=== PATIENT | female | born 1940 | race Caucasian/White ===

== ENCOUNTER → 2017-11-01 | Outpatient (CLI) | payer MEDICARE ==
[2017-11-01 17:33] LABS: HCT 40.2 % (34.0-46.0); HGB 13.7 gm/dL (11.4-16.0); MCH 29.8 pg (25.0-35.0); MCV 87.6 fL (80.0-100.0); Mean Platelet Volume 6.9; Platelet Count 282 k/uL (150-450); RBC 4.59 m/uL (3.80-5.40); RDW 13.7 % (11.5-15.5); WBC 6.1 k/uL (3.8-10.6)
[2017-11-01 17:43] LABS: ALT 57 U/L (9-52); AST 51 U/L (14-36); Albumin 4.3 g/dL (3.5-5.0); Alkaline Phosphatase 96 U/L (38-126); Anion Gap 11 mmol/L; Blood Urea Nitrogen 16 mg/dL (7-17); Calcium 10.2 mg/dL (8.4-10.2); Carbon Dioxide 31 mmol/L (22-30); Chloride 100 mmol/L (98-107); Glucose 206 mg/dL (74-99); Potassium 4.9 mmol/L (3.5-5.1); Sodium 142 mmol/L (137-145); Total Bilirubin 0.6 mg/dL (0.2-1.3); Total Protein 7.4 g/dL (6.3-8.2)
[2017-11-02 01:40] LABS: Hemoglobin A1C 7.9 % (4.0-6.0)
== END | disposition home or self-care (01) ==
LOC: LABWHC1 16:57
PROVIDERS: ATTEND Thoracic Surgery (Cardiothoracic Vascular Surgery)
DX: E13.621 Other specified diabetes mellitus with foot ulcer (principal); M79.604 Pain in right leg
CPT/HCPCS: 36415; 80053; 83036; 84134; 85027

== ENCOUNTER 2019-09-02 09:16 | Emergency (ER) | payer MEDICARE ==
[2019-09-02 09:28] VITALS: RESP 18; TEMP 97.7
[2019-09-02] MEDS ORDERED: MORPHINE SULFATE 4 MG/ML SYRINGE IM STA (09:53)
--- NOTE | 2019-09-02 10:36 | XR ---
EXAMINATION TYPE: XR wrist complete LT , 4 VIEWS DATE OF EXAM ORDERED: 09/02/2019 HISTORY: fall pain. COMPARISON: None. FINDINGS: There is a fracture the distal radius and ulna. There is approximately 20 degrees of poste rior angulation of the radial fragment. There is mild displacement. There is generalized osteopenia l ikely on the basis of osteoporosis. There are degenerative changes in the first carpal metacarpal jayne nt. IMPRESSION: 1. COLLES' TYPE FRACTURE OF THE DISTAL RADIUS AND ULNA. THIS IS MILDLY ANGULATED AND MILDLY DISPLACE D. 2. DEGENERATIVE CHANGE. CODE A: INITIAL ENCOUNTER FOR CLOSED FRACTURE.
--- NOTE | 2019-09-02 10:37 | XR ---
EXAMINATION TYPE: XR hand complete LT , 3 VIEWS DATE OF EXAM ORDERED: 09/02/2019 HISTORY: fall hand pain concern fracture. COMPARISON: None. FINDINGS: There is generalized osteopenia likely on the basis of osteoporosis. There are degenerativ e changes present in the base of the thumb. There is a fracture of the distal radius and ulna as prev iously described with mild angulation and mild displacement. No additional fractures are seen. IMPRESSION: COLLES' FRACTURE OF THE DISTAL RADIUS AND ULNA WITH MINIMAL ANGULATION AND MILD DISPLACEMENT. CODE A: INITIAL ENCOUNTER FOR CLOSED FRACTURE.
--- NOTE | 2019-09-02 10:38 | XR ---
EXAMINATION TYPE: XR elbow complete LT , 3 VIEWS DATE OF EXAM ORDERED: 09/02/2019 HISTORY: fall,. COMPARISON: None. FINDINGS: Phleboliths are present in the soft tissues. No fracture, dislocation or joint effusion is seen. There is a small olecranon spur. IMPRESSION: NO ACUTE OSSEOUS LESION.
--- NOTE | 2019-09-02 10:39 | XR ---
EXAMINATION TYPE: XR shoulder complete LT , 3 VIEWS DATE OF EXAM ORDERED: 09/02/2019 HISTORY: fall. COMPARISON: None. FINDINGS: There is a minimally displaced, comminuted fracture of the head and neck of the left humer us. No dislocation is seen. IMPRESSION: MINIMALLY DISPLACED, COMMINUTED FRACTURE OF THE HEAD AND NECK OF THE PROXIMAL LEFT HUMERUS. CODE A: INITIAL ENCOUNTER FOR CLOSED FRACTURE.
[2019-09-02] MEDS ORDERED: ACET/COD 300 MG/30 MG STARTER PACK 6 TAB BTL PO STA (10:45)
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
[2019-09-02 11:24] VITALS: BP 170/80; PULSE 77
--- NOTE | 2019-09-04 06:41 | CDI ---
Dear Molly Lockhart PA-C: Please do addendum clarification on short or long arm splint application to patient as in order both Short and Long arm were given and in VIEW EMR in Splint TAB just Long Arm mentioned without mention of splint or sling where as in MDM just mention "Sugar Tong Splint." Thank you, Gutierrez Corrales, Budget Engineer. If you have any questions, please contact Police Liaison Officer at [phone]. YONGD
== END 2019-09-02 11:29 | disposition home or self-care (01) ==
LOC: EC 09:16
DX: S52.532A Colles' fracture of left radius, initial encounter for closed fracture (principal); S42.292A Other displaced fracture of upper end of left humerus, initial encounter for closed fracture; E11.9 Type 2 diabetes mellitus without complications; E78.5 Hyperlipidemia, unspecified; I10 Essential (primary) hypertension; M19.90 Unspecified osteoarthritis, unspecified site; Z88.1 Allergy status to other antibiotic agents; Z88.6 Allergy status to analgesic agent; Z79.82 Long term (current) use of aspirin; Z79.84 Long term (current) use of oral hypoglycemic drugs; Z79.899 Other long term (current) drug therapy; W01.0XXA Fall on same level from slipping, tripping and stumbling without subsequent striking against object, initial encounter; Y93.01 Activity, walking, marching and hiking; Z53.20 Procedure and treatment not carried out because of patient's decision for unspecified reasons
CPT/HCPCS: 29125; 99283

== ENCOUNTER → 2019-10-23 | Outpatient (CLI) | payer MEDICARE ==
--- NOTE | 2019-10-23 15:27 | XR ---
EXAMINATION TYPE: XR chest 2V DATE OF EXAM: 10/23/2019 COMPARISON: 09/23/2012 HISTORY: Cough and congestion for one month TECHNIQUE: Frontal and lateral views of the chest are obtained. FINDINGS: Diffuse interstitial prominence. There is no focal air space opacity, pleural effusion, or pneumothorax seen. The cardiac silhouette size is within normal limits. The osseous structures ar e intact. Old healed fracture deformity is seen of the proximal left humerus. Mild multilevel degener ative change of the spine. IMPRESSION: Diffuse interstitial prominence without focal consolidation. This can be seen in mild in terstitial pulmonary edema, atypical pneumonia or bronchitis.
== END | disposition home or self-care (01) ==
LOC: RADXRMAIN 15:04
PROVIDERS: ATTEND Family Medicine
DX: J20.9 Acute bronchitis, unspecified (principal)
CPT/HCPCS: 71046

== ENCOUNTER 2022-03-14 10:46 | Emergency (ER) | payer MEDICARE ==
[2022-03-14 10:54] VITALS: TEMP 97.4
[2022-03-14 10:57] LABS: Glucose,Whole Blood 47 mg/dL (70-110)
--- NOTE | 2022-03-14 11:14 | ED ---
General Adult HPI - General Chief complaint: Recheck/Abnormal Lab/Rx Stated complaint: low blood sugar Time Seen by Provider: 03/14/22 10:55 Source: patient, RN notes reviewed, old records reviewed Mode of arrival: ambulatory Limitations: no limitations - History of Present Illness Initial comments: This is a 81-year-old female presents emergency Department states she is diabetic. Patient states she came in today because her sugar was low. Patient states she checks it every day. Patient states after she took her sugar and found out it was located. Motor March sounds. Patient states she has really no complaints states that she was little sweaty and had the chills when this occurred earlier. Patient states this has never occurred to her before. Patient denies any chest pain difficult breathing shortness breath. Patient denies any fever chills or cough. Patient denies any abdominal pain patient denies nausea vomiting diarrhea. - Related Data Home Medications Medication Instructions Recorded Confirmed Aspirin [Adult Low Dose Aspirin EC] 81 mg PO DAILY 10/26/17 03/01/18 Cetirizine HCl 10 mg PO DAILY 10/26/17 03/01/18 Ezetimibe [Zetia] 10 mg PO DAILY 10/26/17 03/01/18 Glimepiride [Amaryl] 2 mg PO AC-BRKFST 10/26/17 03/01/18 Lisinopril-Hctz 10-12.5 mg 1 tab PO DAILY 10/26/17 03/01/18 [Zestoretic 10-12.5] Magnesium Oxide [Mag-Ox] 400 mg PO DAILY 10/26/17 03/01/18 Multivit with Calcium,Iron,Min 1 each PO DAILY 10/26/17 03/01/18 [Women's Multivitamin] Potassium Chloride [Klor-Con 8] 8 meq PO DAILY 10/26/17 03/01/18 atenoloL [Tenormin] 25 mg PO DAILY 10/26/17 03/01/18 metFORMIN HCL [Glucophage Xr] 500 mg PO DAILY 02/01/18 03/01/18 Previous Rx's Medication Instructions Recorded Sulfamethox-Tmp 800-160Mg [Bactrim 1 each PO Q12HR #14 tab 03/14/22 DS 800-160 mg] Allergies Allergy/AdvReac Type Severity Reaction Status Date / Time bacitracin Allergy Rash/Hives Verified 03/14/22 10:54 [From Neosporin ([id number])] ibuprofen Allergy Wheezing Verified 03/14/22 10:54 neomycin Allergy Rash/Hives Verified 03/14/22 10:54 [From Neosporin ([id number])] polymyxin B Allergy Rash/Hives Verified 03/14/22 10:54 [From Neosporin ([id number])] Review of Systems ROS Statement: Those systems with pertinent positive or pertinent negative responses have been documented in the HPI. ROS Other: All systems not noted in ROS Statement are negative. Past Medical History Past Medical History: Diabetes Mellitus, Hyperlipidemia, Hypertension, Osteoarthritis (OA) History of Any Multi-Drug Resistant Organisms: None Reported Past Surgical History: No Surgical Hx Reported Additional Past Surgical History / Comment(s): cataract & carpal-tunnel bilat. Past Anesthesia/Blood Transfusion Reactions: No Reported Reaction Past Psychological History: No Psychological Hx Reported Smoking Status: Never smoker Past Alcohol Use History: None Reported Past Drug Use History: None Reported - Past Family History Mother Family Medical History: Coronary Artery Disease (CAD), Diabetes Mellitus, Hype rtension, Mitral Valve Prolapse (MVP) Father Family Medical History: Hypertension Additional Family Medical History / Comment(s): father hip surgery General Exam - General Exam Comments Initial Comments: GENERAL: Patient is well-developed and well-nourished. Patient is nontoxic and well- hydrated and is in no acute distress. ENT: Neck is soft and supple. No significant lymphadenopathy is noted. Oropharynx is clear. Moist mucous membranes. Neck has full range of motion without eliciting any pain. EYES: The sclera were anicteric and conjunctiva were pink and moist. Extraocular movements were intact and pupils were equal round and reactive to light. Eyelids were unremarkable. PULMONARY: Unlabored respirations. Good breath sounds bilaterally. No audible rales rhonchi or wheezing was noted. CARDIOVASCULAR: There is a regular rate and rhythm without any murmurs gallops or rubs. ABDOMEN: Soft and nontender with normal bowel sounds. SKIN: Skin is clear with no lesions or rashes and otherwise unremarkable. NEUROLOGIC: Patient is alert and oriented x3. Cranial nerves II through XII are grossly intact. Motor and sensory are also intact. Normal speech, volume and content. Symmetrical smile. MUSCULOSKELETAL: Normal extremities with adequate strength and full range of motion. Left lower leg is erythematous below the knee down to the foot. LYMPHATICS: No significant lymphadenopathy is noted PSYCHIATRIC: Normal psychiatric evaluation. Limitations: no limitations Course Vital Signs 03/14/22 03/14/22 10:52 14:20 Temperature 97.4 F L Pulse Rate 64 68 Respiratory 20 18 Rate Blood Pressure 225/90 164/78 O2 Sat by Pulse 100 98 Oximetry Medical Decision Making - Medical Decision Making EKG shows sinus rhythm at 81 bpm [place] interval is 201 QRS is 110 QT interval 397 QTC is 434. Patient's EKG shows no ST segment elevation or depression Chest x-ray shows no acute abnormality. Patient received Rocephin in the emergency department. Patient states she did not take her blood pressure medicines but she has them with her and she will take them today. - Lab Data Result diagrams: 03/14/22 11:08 03/14/22 11:08 Lab Results 03/14/22 03/14/22 03/14/22 Range/Units 10:55 11:00 11:08 WBC 6.5 (3.8-10.6) k/uL RBC 4.58 (3.80-5.40) m/uL Hgb 11.8 (11.4-16.0) gm/dL Hct 37.2 (34.0-46.0) % MCV 81.3 (80.0-100.0) fL MCH 25.7 (25.0-35.0) pg MCHC 31.6 (31.0-37.0) g/dL RDW 16.2 H (11.5-15.5) % Plt Count 333 (150-450) k/uL MPV 6.9 Neutrophils % 84 % Lymphocytes % 9 % Monocytes % 5 % Eosinophils % 1 % Basophils % 1 % Neutrophils # 5.5 (1.3-7.7) k/uL Lymphocytes # 0.6 L (1.0-4.8) k/uL Monocytes # 0.3 (0-1.0) k/uL Eosinophils # 0.1 (0-0.7) k/uL Basophils # 0.0 (0-0.2) k/uL Hypochromasia Moderate Anisocytosis Slight Sodium (137-145) mmol/L Potassium (3.5-5.1) mmol/L Chloride (98-107) mmol/L Carbon Dioxide (22-30) mmol/L Anion Gap mmol/L BUN (7-17) mg/dL Creatinine (0.52-1.04) mg/dL Est GFR (CKD-EPI)AfAm (>60 ml/min/1.73 sqM) Est GFR (CKD-EPI)NonAf (>60 ml/min/1.73 sqM) Glucose (74-99) mg/dL POC Glucose (mg/dL) 47 L (70-110) mg/dL POC Glu Real Estate Services Administrator ID Taurus Uribe Calcium (8.4-10.2) mg/dL Total Bilirubin (0.2-1.3) mg/dL AST (14-36) U/L ALT (4-34) U/L Alkaline Phosphatase (38-126) U/L Total Protein (6.3-8.2) g/dL Albumin (3.5-5.0) g/dL Urine Color Light Yellow Urine Appearance Clear (Clear) Urine pH 6.5 (5.0-8.0) Ur Specific [place] 1.009 (1.001-1.035) Urine Protein Trace H (Negative) Urine Glucose (UA) Negative (Negative) Urine Ketones Negative (Negative) Urine Blood Small H (Negative) Urine Nitrite Negative (Negative) Urine Bilirubin Negative (Negative) Urine Urobilinogen <2.0 (<2.0) mg/dL Ur Leukocyte Esterase Large H (Negative) Urine RBC 10 H (0-5) /hpf Urine WBC 57 H (0-5) /hpf Hyaline Casts 1 (0-2) /lpf 03/14/22 03/14/22 03/14/22 Range/Units 11:08 11:45 12:58 WBC (3.8-10.6) k/uL RBC (3.80-5.40) m/uL Hgb (11.4-16.0) gm/dL Hct (34.0-46.0) % MCV (80.0-100.0) fL MCH (25.0-35.0) pg MCHC (31.0-37.0) g/dL RDW (11.5-15.5) % Plt Count (150-450) k/uL MPV Neutrophils % % Lymphocytes % % Monocytes % % Eosinophils % % Basophils % % Neutrophils # (1.3-7.7) k/uL Lymphocytes # (1.0-4.8) k/uL Monocytes # (0-1.0) k/uL Eosinophils # (0-0.7) k/uL Basophils # (0-0.2) k/uL Hypochromasia Anisocytosis Sodium 141 (137-145) mmol/L Potassium 3.9 (3.5-5.1) mmol/L Chloride 109 H (98-107) mmol/L Carbon Dioxide 24 (22-30) mmol/L Anion Gap 8 mmol/L BUN 27 H (7-17) mg/dL Creatinine 0.81 (0.52-1.04) mg/dL Est GFR (CKD-EPI)AfAm 80 (>60 ml/min/1.73 sqM) Est GFR (CKD-EPI)NonAf 70 (>60 ml/min/1.73 sqM) Glucose 47 L* (74-99) mg/dL POC Glucose (mg/dL) 67 L 111 H (70-110) mg/dL POC Glu Real Estate Services Administrator ID Lowell Oh Kenneth Calcium 9.0 (8.4-10.2) mg/dL Total Bilirubin 0.3 (0.2-1.3) mg/dL AST 27 (14-36) U/L ALT 13 (4-34) U/L Alkaline Phosphatase 103 (38-126) U/L Total Protein 8.8 H (6.3-8.2) g/dL Albumin 4.3 (3.5-5.0) g/dL Urine Color Urine Appearance (Clear) Urine pH (5.0-8.0) Ur Specific [place] (1.001-1.035) Urine Protein (Negative) Urine Glucose (UA) (Negative) Urine Ketones (Negative) Urine Blood (Negative) Urine Nitrite (Negative) Urine Bilirubin (Negative) Urine Urobilinogen (<2.0) mg/dL Ur Leukocyte Esterase (Negative) Urine RBC (0-5) /hpf Urine WBC (0-5) /hpf Hyaline Casts (0-2) /lpf Disposition Clinical Impression: Urinary tract infection, Hypoglycemia Disposition: HOME SELF-CARE Condition: Good Prescriptions: Sulfamethox-Tmp 800-160Mg [Bactrim DS 800-160 mg] 1 each PO Q12HR #14 tab Is patient prescribed a controlled substance at d/c from ED?: No Referrals: Luis Moe DO [Primary Care Provider] - 1-2 days Time of Disposition: 13:24
[2022-03-14 11:34] LABS: Anisocytosis Slight; Basophils % (A) 1 %; Eosinophils # (A) 0.1 k/uL (0-0.7); Eosinophils % (A) 1 %; HCT 37.2 % (34.0-46.0); HGB 11.8 gm/dL (11.4-16.0); Hypochromasia Moderate; Lymphocytes # (A) 0.6 k/uL (1.0-4.8); Lymphocytes % (A) 9 %; MCH 25.7 pg (25.0-35.0); MCHC 31.6 g/dL (31.0-37.0); MCV 81.3 fL (80.0-100.0); Mean Platelet Volume 6.9; Monocytes # (A) 0.3 k/uL (0-1.0); Monocytes % (A) 5 %; Neutrophils # (A) 5.5 k/uL (1.3-7.7); Neutrophils % (A) 84 %; Platelet Count 333 k/uL (150-450); RBC 4.58 m/uL (3.80-5.40); RDW 16.2 % (11.5-15.5); WBC 6.5 k/uL (3.8-10.6)
[2022-03-14 11:46] LABS: Albumin 4.3 g/dL (3.5-5.0); Potassium 3.9 mmol/L (3.5-5.1); Total Bilirubin 0.3 mg/dL (0.2-1.3); Total Protein 8.8 g/dL (6.3-8.2)
[2022-03-14 11:47] LABS: Glucose,Whole Blood 67 mg/dL (70-110)
--- NOTE | 2022-03-14 12:22 | XR ---
EXAMINATION TYPE: XR chest 2V DATE OF EXAM: 03/14/2022 11:52 AM COMPARISON: Chest radiographs from 10/23/2019 TECHNIQUE: XR chest 2V Frontal and lateral views of the chest. CLINICAL INDICATION:Female, 81 years old with history of Difficulty breathing ; FINDINGS: Lungs/Pleura: There is no evidence of pleural effusion, focal consolidation, or pneumothorax. Pulmonary vascularity: Unremarkable. Heart/mediastinum: Cardiomediastinal silhouette is enlarged and stable. Musculoskeletal: No acute osseous pathology. IMPRESSION: Cardiomegaly and mild pulmonary vascular congestion. Correlate with BNP for congestive heart failure.
[2022-03-14 12:29] LABS: Appearance,Urine Clear (Clear); Bilirubin,Urine Negative (Negative); Blood,Urine Small (Negative); Color,Urine Light Yellow; Glucose,Urine (UA) Negative (Negative); Hyaline Casts,Urine 1 /lpf (0-2); Ketones,Urine Negative (Negative); Leukocyte Esterase,Urine Large (Negative); Nitrite,Urine Negative (Negative); PH, Urine 6.5 (5.0-8.0); Protein,Urine Trace (Negative); RBC,Urine 10 /hpf (0-5); Specific Gravity,Urine 1.009 (1.001-1.035); Urobilinogen,Urine <2.0 mg/dL (<2.0); WBC,Urine 57 /hpf (0-5)
[2022-03-14] MEDS ORDERED: cefTRIAXone IN SWFI 1,000 MG/10 ML SYRINGE IVP STA (12:56)
[2022-03-14 12:59] LABS: Glucose,Whole Blood 111 mg/dL (70-110)
[2022-03-14 14:21] VITALS: BP 164/78; PULSE 68; RESP 18
== END 2022-03-14 14:21 | disposition home or self-care (01) ==
LOC: EC 10:46
DX: E11.649 Type 2 diabetes mellitus with hypoglycemia without coma (principal); N39.0 Urinary tract infection, site not specified; I10 Essential (primary) hypertension; E78.5 Hyperlipidemia, unspecified; M19.90 Unspecified osteoarthritis, unspecified site; Z79.84 Long term (current) use of oral hypoglycemic drugs; Z79.82 Long term (current) use of aspirin; Z79.899 Other long term (current) drug therapy
CPT/HCPCS: 36415; 93005; 80053; 85025; 81001; 87086; 71046; 99284; 96374; J0696

== ENCOUNTER 2022-03-27 01:50 | Emergency (ER) | payer MEDICARE ==
[2022-03-27 01:59] VITALS: TEMP 98.2
--- NOTE | 2022-03-27 05:34 | CT ---
EXAM: CT Chest Without Intravenous Contrast CLINICAL HISTORY: ITS.REASON CT Reason: trauma TECHNIQUE: Axial computed tomography images of the chest without intravenous contrast. CTDI is 9.8 mGy and DLP is 436.6 mGy-cm. This CT exam was performed using one or more of the following dose reduction techniques: automated exposure control, adjustment of the mA and/or kV according to patient size, and/or use of iterative reconstruction technique. COMPARISON: No relevant prior studies available. FINDINGS: Lungs: No mass. No consolidation. Pleural space: No pneumothorax. No effusion. Heart: Enlarged heart size. No pericardial effusion. Bones/joints: Left proximal clavicular fracture. Left fourth rib fracture. Soft tissues: Tiny gallbladder stone. Vasculature: Unremarkable. No thoracic aortic aneurysm. Lymph nodes: No enlarged lymph nodes. IMPRESSION: Left proximal clavicular fracture. Left fourth rib fracture.
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
--- NOTE | 2022-03-27 07:07 | XR ---
EXAMINATION TYPE: XR tibia fibula RT DATE OF EXAM: 03/27/2022 6:16 AM INDICATION: Patient age:Female; 81 years old; Reason for study: fall; COMPARISON: None TECHNIQUE: The right tibia/fibula was examined in AP and lateral projections. FINDINGS: Diffuse osseous demineralization. Subtle lucency of the anterior aspect of the tibia distal ly with intra-articular extension suggesting fracture. Mild pitting edema of the lower extremity. Tri compartmental osteoarthritic changes of the knee. IMPRESSION: Subtle fracture of the tibial plafond suggested consider confirmation with CT.
[2022-03-27 07:51] LABS: Glucose,Whole Blood 255 mg/dL (70-110)
--- NOTE | 2022-03-27 08:17 | CT ---
EXAMINATION TYPE: CT ankle RT wo con CT DLP: 345.2 mGycm, Automated exposure control for dose reduction was used. DATE OF EXAM: 03/27/2022 7:53 AM COMPARISON: Extremity radiograph same day. CLINICAL INDICATION:Female, 81 years old with history of fall injury; TECHNIQUE: Axial images were obtained of the right ankle without the use of IV contrast. Additional coronal and sagittal reformatted images and soft tissue and bone window were obtained for review. 3-D reconstruction was created on a separate workstation. FINDINGS: There is diffuse osseous demineralization. There is no evidence of fracture, subluxation, o r dislocation. Scattered degenerative changes throughout the visualized joints of the foot. There is atherosclerosis of the arterial vasculature. There is calcaneal Achilles enthesophyte and plantar spu rring. There is soft tissue anasarca throughout the lower extremity. Remote injury to the deltoid lig ament suggested. Subchondral cysts of the medial aspect of the talus. IMPRESSION: 1. No evidence of fracture. Lucency seen on prior radiograph likely represented irregular patchy ost eopenia. 2. Diffuse anasarca/soft tissue swelling of the lower extremity
[2022-03-27 08:34] VITALS: BP 134/75; PULSE 72; RESP 16
== END 2022-03-27 09:14 | disposition home or self-care (01) ==
LOC: EC 01:50
DX: S22.32XA Fracture of one rib, left side, initial encounter for closed fracture (principal); S42.002A Fracture of unspecified part of left clavicle, initial encounter for closed fracture; E78.5 Hyperlipidemia, unspecified; I10 Essential (primary) hypertension; E11.9 Type 2 diabetes mellitus without complications; Z88.6 Allergy status to analgesic agent; Z88.3 Allergy status to other anti-infective agents; Z88.8 Allergy status to other drugs, medicaments and biological substances; W09.8XXA Fall on or from other playground equipment, initial encounter
CPT/HCPCS: 36415; 71250; 99285

== ENCOUNTER 2022-04-10 20:44 | Emergency (ER) | payer MEDICARE ==
--- NOTE | 2022-04-10 21:45 | ED ---
Fall HPI - General Chief Complaint: Fall Stated Complaint: Fall Time Seen by Provider: 04/10/22 21:38 Source: EMS Mode of arrival: EMS - Related Data Home Medications Medication Instructions Recorded Confirmed Aspirin [Adult Low Dose Aspirin EC] 81 mg PO DAILY 10/26/17 03/01/18 Cetirizine HCl 10 mg PO DAILY 10/26/17 03/01/18 Ezetimibe [Zetia] 10 mg PO DAILY 10/26/17 03/01/18 Glimepiride [Amaryl] 2 mg PO AC-BRKFST 10/26/17 03/01/18 Lisinopril-Hctz 10-12.5 mg 1 tab PO DAILY 10/26/17 03/01/18 [Zestoretic 10-12.5] Magnesium Oxide [Mag-Ox] 400 mg PO DAILY 10/26/17 03/01/18 Multivit with Calcium,Iron,Min 1 each PO DAILY 10/26/17 03/01/18 [Women's Multivitamin] Potassium Chloride [Klor-Con 8] 8 meq PO DAILY 10/26/17 03/01/18 atenoloL [Tenormin] 25 mg PO DAILY 10/26/17 03/01/18 metFORMIN HCL [Glucophage Xr] 500 mg PO DAILY 02/01/18 03/01/18 Previous Rx's Medication Instructions Recorded Sulfamethox-Tmp 800-160Mg [Bactrim 1 each PO Q12HR #14 tab 03/14/22 DS 800-160 mg] Allergies Allergy/AdvReac Type Severity Reaction Status Date / Time bacitracin Allergy Rash/Hives Verified 04/10/22 20:50 [From Neosporin ([id number])] ibuprofen Allergy Wheezing Verified 04/10/22 20:50 neomycin Allergy Rash/Hives Verified 04/10/22 20:50 [From Neosporin ([id number]-lae-[id number])] polymyxin B Allergy Rash/Hives Verified 04/10/22 20:50 [From Neosporin ([id number])] Review of Systems ROS Statement: Those systems with pertinent positive or pertinent negative responses have been documented in the HPI. ROS Other: All systems not noted in ROS Statement are negative. Past Medical History Past Medical History: Diabetes Mellitus, Hyperlipidemia, Hypertension, Osteoarthritis (OA) History of Any Multi-Drug Resistant Organisms: None Reported Past Surgical History: No Surgical Hx Reported Additional Past Surgical History / Comment(s): cataract & carpal-tunnel bilat. Past Anesthesia/Blood Transfusion Reactions: No Reported Reaction Past Psychological History: No Psychological Hx Reported Smoking Status: Never smoker Past Alcohol Use History: None Reported Past Drug Use History: None Reported - Past Family History Mother Family Medical History: Coronary Artery Disease (CAD), Diabetes Mellitus, Hypertension, Mitral Valve Prolapse (MVP) Father Family Medical History: Hypertension Additional Family Medical History / Comment(s): father hip surgery General Exam Limitations: no limitations Course Vital Signs 04/10/22 04/10/22 20:47 23:05 Temperature 98.1 F Pulse Rate 63 70 Respiratory 20 18 Rate Blood Pressure 209/89 188/87 O2 Sat by Pulse 96 95 Oximetry Medical Decision Making - Lab Data Lab Results 04/10/22 Range/Units 22:47 POC Glucose (mg/dL) 162 H (70-110) mg/dL POC Glu Supply Requirements Officer ID Joyce Preciado Disposition Clinical Impression: Fall, Clavicle fracture, Closed left clavicular fracture Disposition: HOME SELF-CARE Condition: Good Instructions (If sedation given, give patient instructions): Fall Prevention for Older Adults (ED), Clavicle Fracture (ED) Is patient prescribed a controlled substance at d/c from ED?: No Referrals: Luis Moe DO [Primary Care Provider] - 1-2 days
--- NOTE | 2022-04-10 22:43 | XR ---
EXAMINATION TYPE: XR chest 1V DATE OF EXAM: 04/10/2022 COMPARISON: 03/14/2022 HISTORY: Fall. Pain TECHNIQUE: FINDINGS: There is an enlarged heart. There is mild linear density left midlung field. No heart failu re. No pneumothorax. IMPRESSION: There is some atelectasis in the left mid lung which is new compared to old exam. No hear t failure.
--- NOTE | 2022-04-10 22:45 | XR ---
EXAMINATION TYPE: XR shoulder complete LT DATE OF EXAM: 04/10/2022 COMPARISON: 09/02/2019 HISTORY: Pain TECHNIQUE: 3 views FINDINGS: There is deformity of the humeral neck related to old fracture. No acute fracture seen. No dislocation. There is deformity of the clavicle with largest chip fracture of the clavicle at the AC joint. Fragme nt measures 2 cm. IMPRESSION: There is an acute large nondisplaced chip fracture of the lateral end of the clavicle. Ol d healed femoral neck fracture.
--- NOTE | 2022-04-10 22:46 | XR ---
EXAMINATION TYPE: XR Hip RT and AP Pelvis DATE OF EXAM: 04/10/2022 COMPARISON: NONE HISTORY: Pain TECHNIQUE: 3 views FINDINGS: The pelvic ring appears intact. Proximal right femur appears intact. No hip fracture. No di slocation. IMPRESSION: No acute abnormality of the pelvis and right hip.
--- NOTE | 2022-04-10 22:49 | CT ---
EXAMINATION TYPE: CT brain isabel klein con DATE OF EXAM: 04/10/2022 COMPARISON: None HISTORY: fall CT DLP: 1341.3 mGycm Automated exposure control for dose reduction was used. Images obtained of the brain and cervical spine with no contrast. There is mild cerebral atrophy. There is no mass effect or midline shift. No sign of intracranial hem orrhage. Calvarium is intact. There is normal aeration of the mastoid sinuses. There is straightening of the cervical spine and mild kyphotic curvature. There is degenerative disc space narrowing throughout the cervical spine. No compression fracture. There is spurring of the endp lates. Facet joints are intact. No significant subluxation. The skull base is intact. IMPRESSION: Mild cerebral atrophy. No acute intracranial abnormality. Multilevel cervical spondylotic changes. No fracture.
[2022-04-10 23:00] LABS: Glucose,Whole Blood 162 mg/dL (70-110)
[2022-04-10 23:06] VITALS: RESP 18
[2022-04-11 01:20] VITALS: BP 158/87; PULSE 69; TEMP 98.7
== END 2022-04-11 01:20 | disposition home or self-care (01) ==
LOC: EC 20:44
DX: S42.035A Nondisplaced fracture of lateral end of left clavicle, initial encounter for closed fracture (principal); E11.9 Type 2 diabetes mellitus without complications; E78.5 Hyperlipidemia, unspecified; I10 Essential (primary) hypertension; Z88.2 Allergy status to sulfonamides; Z88.1 Allergy status to other antibiotic agents; Z79.82 Long term (current) use of aspirin; Z79.84 Long term (current) use of oral hypoglycemic drugs; Z79.4 Long term (current) use of insulin; Z79.899 Other long term (current) drug therapy; W10.9XXA Fall (on) (from) unspecified stairs and steps, initial encounter
CPT/HCPCS: 36415; 70450; 71045; 72125; 73502; 99284

== ENCOUNTER 2022-06-28 15:49 | Observation (INO) | payer MEDICARE ==
[2022-06-28] MEDS ORDERED: ASPIRIN 81 MG PO STA (16:14)
--- NOTE | 2022-06-28 16:32 | XR ---
EXAMINATION TYPE: XR chest 2V DATE OF EXAM: 06/28/2022 COMPARISON: Chest x-ray April 10, 2022 HISTORY: Chest pain. TECHNIQUE: Frontal and lateral views of the chest are obtained. FINDINGS: The osseous structures are demineralized. Healed fracture deformity left proximal humerus redemonstrated. Chronic parenchymal changes bilaterally are seen without suspicious focal airspace op acities, pleural effusion, or pneumothorax noted. Old lateral left rib fractures redemonstrated. Pers istent cardiomegaly. IMPRESSION: Cardiomegaly and chronic changes without acute pulmonary process.
[2022-06-28 16:36] LABS: Basophils % (A) 1 %; Eosinophils # (A) 0.2 k/uL (0-0.7); Eosinophils % (A) 3 %; HCT 34.2 % (34.0-46.0); HGB 11.1 gm/dL (11.4-16.0); Hypochromasia Slight; Lymphocytes # (A) 0.8 k/uL (1.0-4.8); Lymphocytes % (A) 14 %; MCH 26.1 pg (25.0-35.0); MCHC 32.4 g/dL (31.0-37.0); MCV 80.7 fL (80.0-100.0); Monocytes # (A) 0.3 k/uL (0-1.0); Monocytes % (A) 6 %; Neutrophils # (A) 4.6 k/uL (1.3-7.7); Neutrophils % (A) 75 %; Platelet Count 319 k/uL (150-450); RBC 4.24 m/uL (3.80-5.40); RDW 15.3 % (11.5-15.5)
[2022-06-28 16:50] LABS: INR 0.9 (<1.2); Partial Thromboplastin Time 24.2 sec (22.0-30.0); Prothrombin Time 10.2 sec (9.0-12.0)
[2022-06-28 17:00] LABS: Calcium 9.2 mg/dL (8.4-10.2); Magnesium 1.9 mg/dL (1.6-2.3); Potassium 3.7 mmol/L (3.5-5.1); Total Bilirubin 0.5 mg/dL (0.2-1.3); Total Protein 7.7 g/dL (6.3-8.2)
--- NOTE | 2022-06-28 18:49 | ED ---
Chest Pain HPI - General Chief Complaint: Chest Pain Stated Complaint: High Blood Pressure Time Seen by Provider: 06/28/22 16:06 Source: patient Mode of arrival: ambulatory Limitations: no limitations - History of Present Illness Initial Comments: Patient complains of chest pain. Pain is in the middle of the chest. It radiates to left shoulder. Her arms are worse with exertion. She also has exertional dyspnea. She has no fevers or chills. She has no focal weakness. She has no paresthesias. She wasn't doing anything initially when this began. - Related Data Home Medications Medication Instructions Recorded Confirmed Levothyroxine Sodium 25 mcg PO HS@2300 06/28/22 06/28/22 Tolterodine ER [Detrol LA] 4 mg PO DAILY@0000 06/28/22 06/28/22 Valsartan 320 mg PO DAILY@0000 06/28/22 06/28/22 sitaGLIPtin [Januvia] 100 mg PO DAILY@0000 06/28/22 06/28/22 Allergies Allergy/AdvReac Type Severity Reaction Status Date / Time bacitracin Allergy Rash/Hives Verified 06/28/22 17:54 [From Neosporin ([id number])] ibuprofen Allergy Wheezing Verified 06/28/22 17:54 neomycin Allergy Rash/Hives Verified 06/28/22 17:54 [From Neosporin ([id number])] polymyxin B Allergy Rash/Hives Verified 06/28/22 17:54 [From Neosporin ([id number]-zeo-[id number])] Review of Systems ROS Statement: Those systems with pertinent positive or pertinent negative responses have been documented in the HPI. ROS Other: All systems not noted in ROS Statement are negative. EKG Findings - EKG Comments: EKG Findings:: Twelve-lead EKG shows ventricular rate 90 bpm, normal GA interval, normal QRS interval, there is ST depression in leads 12 and aVL, interpreted by me as sinus rhythm with possible ischemia. Past Medical History Past Medical History: Diabetes Mellitus, Hyperlipidemia, Hypertension, Osteoarthritis (OA) History of Any Multi-Drug Resistant Organisms: None Reported Past Surgical History: No Surgical Hx Reported Additional Past Surgical History / Comment(s): cataract & carpal-tunnel bilat. Past Anesthesia/Blood Transfusion Reactions: No Reported Reaction Past Psychological History: No Psychological Hx Reported Smoking Status: Never smoker Past Alcohol Use History: None Reported Past Drug Use History: None Reported - Past Family History Mother Family Medical History: Coronary Artery Disease (CAD), Diabetes Mellitus, Hypertension, Mitral Valve Prolapse (MVP) Father Family Medical History: Hypertension Additional Family Medical History / Comment(s): father hip surgery General Exam Limitations: no limitations General appearance: alert, in no apparent distress Head exam: Present: atraumatic, normocephalic, normal inspection Eye exam: Present: normal appearance, PERRL, EOMI. Absent: scleral icterus, conjunctival injection, periorbital swelling ENT exam: Present: normal exam, mucous membranes moist Neck exam: Present: normal inspection. Absent: tenderness, meningismus, lymphadenopathy Respiratory exam: Present: normal lung sounds bilaterally. Absent: respiratory distress, wheezes, rales, rhonchi, stridor Cardiovascular Exam: Present: regular rate, normal rhythm, normal heart sounds. Absent: systolic murmur, diastolic murmur, rubs, gallop, clicks GI/Abdominal exam: Present: soft, normal bowel sounds. Absent: distended, tenderness, guarding, rebound, rigid Extremities exam: Present: normal inspection, full ROM, normal capillary refill. Absent: tenderness, pedal edema, joint swelling, calf tenderness Back exam: Present: normal inspection Neurological exam: Present: alert, oriented X3, CN II-XII intact Psychiatric exam: Present: normal affect, normal mood Skin exam: Present: warm, dry, intact, normal color. Absent: rash Course Vital Signs 06/28/22 06/28/22 15:53 17:39 Temperature 98 F Pulse Rate 100 90 Respiratory 20 18 Rate Blood Pressure 217/68 167/84 O2 Sat by Pulse 97 Oximetry Chest Pain MDM - Core Measures AMI Core Measures Followed: Yes - MDM Patient presents with chest pain. She has a concerning EKG although her initial troponin is not elevated. Patient will be admitted to the hospital. I will consult cardiology. Disposition Clinical Impression: Chest pain Disposition: ADMITTED IP TO THIS HOSP Condition: Fair Is patient prescribed a controlled substance at d/c from ED?: No Referrals: Luis Moe DO [Primary Care Provider] - 1-2 days
[2022-06-28] MEDS ORDERED: ALPRAZolam 0.25 MG TAB PO PRN (18:50)
[2022-06-28] MEDS ORDERED: MAG HYDROX/AL HYDROX/SIMETH 30 ML CUP PO PRN (18:50)
[2022-06-28] MEDS ORDERED: NALOXONE 0.4 MG/ML 1 ML VIAL IV PRN (18:50)
[2022-06-28] MEDS ORDERED: HYDROcodone/APAP 5-325MG 1 EACH TAB PO PRN (18:50)
[2022-06-28] MEDS ORDERED: TEMAZEPAM 15 MG CAP PO PRN (18:50)
[2022-06-28] MEDS ORDERED: ONDANSETRON 4 MG/2 ML VIAL IVP PRN (18:50)
[2022-06-28] MEDS ORDERED: DOCUSATE 100 MG CAP PO PRN (18:50)
[2022-06-28 21:18] LABS: Glucose,Whole Blood 118 mg/dL (70-110)
[2022-06-28] MEDS ORDERED: LEVOTHYROXINE 25 MCG TAB PO SCH (23:00)
[2022-06-29] MEDS ORDERED: VALSARTAN 160 MG TAB PO SCH
[2022-06-29] MEDS ORDERED: LINAGLIPTIN 5 MG TABLET PO SCH
[2022-06-29] MEDS ORDERED: OXYBUTYNIN XL 5 MG TAB.ER.24 PO SCH
[2022-06-29] MEDS ORDERED: cloNIDine HCL 0.2 MG TAB PO PRN (01:56)
--- NOTE | 2022-06-29 02:21 | P.HPIM ---
History of Present Illness H&P Date: 06/28/22 Chief Complaint: uncontrolled hypertension 82 year old female with DM , hypertension , hyperlipidemia patient comes in with concerns regarding uncontrolled hypertension , denies any associated symptoms , denies any headache, changes in hearing or vision , denies any focal neuro deficits. she denies any chest pain , however, she reports an episode of left shoulder discomfort associated with palpitations that she has experienced yesterday . she claims to be compliant with her meds, up until recently , when she stopped taking some of them. she has history of hypertension all her life. she denies any sick contacts, recent illness, recent travel or hospitalization , she was hospitalized in february for hypoglycemia. she also has long history of leg edema , with left leg with chronic skin changes, she was following with wound clinic and lost to follow up over the past 2 years. blood work showed BOLA, mild anemia , she denies any bleeding . trops neg X2 Review of Systems Pertinent positives as noted in HPI. All other systems were reviewed and are negative Past Medical History Past Medical History: Diabetes Mellitus, Hyperlipidemia, Hypertension, Osteoarthritis (OA) History of Any Multi-Drug Resistant Organisms: None Reported Past Surgical History: No Surgical Hx Reported Additional Past Surgical History / Comment(s): cataract & carpal-tunnel bilat. Past Anesthesia/Blood Transfusion Reactions: No Reported Reaction Past Psychological History: No Psychological Hx Reported Smoking Status: Never smoker Past Alcohol Use History: None Reported Past Drug Use History: None Reported - Past Family History Mother Family Medical History: Coronary Artery Disease (CAD), Diabetes Mellitus, Hypertension, Mitral Valve Prolapse (MVP) Father Family Medical History: Hypertension Additional Family Medical History / Comment(s): father hip surgery Medications and Allergies Home Medications Medication Instructions Recorded Confirmed Type Levothyroxine Sodium 25 mcg PO HS@2300 06/28/22 06/28/22 History Tolterodine ER [Detrol LA] 4 mg PO DAILY@0000 06/28/22 06/28/22 History Valsartan 320 mg PO DAILY@0000 06/28/22 06/28/22 History sitaGLIPtin [Januvia] 100 mg PO DAILY@0000 06/28/22 06/28/22 History Allergies Allergy/AdvReac Type Severity Reaction Status Date / Time bacitracin Allergy Rash/Hives Verified 06/28/22 17:54 [From Neosporin ([id number])] ibuprofen Allergy Wheezing Verified 06/28/22 17:54 neomycin Allergy Rash/Hives Verified 06/28/22 17:54 [From Neosporin ([id number])] polymyxin B Allergy Rash/Hives Verified 06/28/22 17:54 [From Neosporin ([id number])] Physical Exam Vitals: Vital Signs Temp Pulse Resp BP Pulse Ox 06/28/22 17:39 90 18 167/84 06/28/22 15:53 98 F 100 20 217/68 97 Intake and Output 06/28/22 06/28/22 06/28/22 06:59 14:59 22:59 Other: Weight 77.111 kg Constitutional: No acute distress, conversant, pleasant Eyes: Anicteric sclerae, moist conjunctiva, Pupils equal round reactive to light ENMT: NC/AT Oropharynx clear, no erythema, or exudates Neck: Supple, FROM, no masses, or JVD No carotid bruits No thyromegaly Lungs: Clear to auscultation Clear to percussion Normal respiratory effort, no accessory muscle use Cardiovascular: Heart regular in rate and rhythm, No murmurs, gallops, or rubs +2 bilateral peripheral leg edema Abdominal: Soft Nontender, no guarding, rebound or rigidity Abdomen moving with respiration Normoactive bowel sounds No hepatomegaly, No splenomegaly No palpable mass No abdominal wall hernia noted Skin: erythema over bilateral groins and intertriginous regions, and chronic skin changes over left leg with erythema but no induration , no tenderness to the touch. with weeping leg edema, no wounds. otherwise Normal temperature, tone, texture, turgor Extremities: No digital cyanosis No clubbing Pedal pulses difficult to detect due to pedal edema and symmetrical, capillary refill immediate Radial pulses intact and symmetrical No calf tenderness Psychiatric: Alert and oriented to person, place and time Appropriate affect fair judgement Neuro Muscles Strength 5/5 in all 4 extremities Sensation to light touch grossly present throughout Cranial nerves II-XII grossly intact No focal sensory deficits Lymphatics: no palpable cervical or supraclavicular , or inguinal lymph nodes Results CBC & Chem 7: 06/28/22 16:20 06/28/22 16:20 Labs: Abnormal Lab Results - Last 24 Hours (Table) 06/28/22 06/28/22 Range/Units 16:20 16:20 Hgb 11.1 L (11.4-16.0) gm/dL Lymphocytes # 0.8 L (1.0-4.8) k/uL Creatinine 1.21 H (0.52-1.04) mg/dL Glucose 169 H (74-99) mg/dL Assessment and Plan Assessment: malignant hypertension , improving BOLA plan resume home BP meds cardiology eval l clonidine PRN for systolic > 180 monitor renal function leg edema with chronic skin changes over left leg wound care daily apply barrier skin moisturizer compression stocking raegan intertriginous regions nystatin cream tid chronic conditions DM , resume oral hypoglycemic meds hypothyroid , levothyroxin DVT PPX hepairn sc tid full code
[2022-06-29] MEDS: NYSTATIN 100,000UNIT/GM CREAM 30 GM TUBE TOPICAL SCH ×4 (03:44→22:34)
[2022-06-29 07:06] LABS: Glucose,Whole Blood 181 mg/dL (70-110)
[2022-06-29] MEDS: ASPIRIN 81 MG PO SCH (08:17)
[2022-06-29] MEDS: amLODIPine 5 MG TAB PO SCH (08:17)
[2022-06-29] MEDS: HEPARIN SODIUM,PORCINE/PF 5,000 UNIT/0.5 ML SYRINGE SQ SCH ×2 (08:18→17:24)
--- NOTE | 2022-06-29 08:56 | P.CRDCN ---
History of Present Illness History of present illness: This is a 82 year old female with a past medical history of hypertension, type 2 diabetes, venous insufficiency, hypothyroidism, chronic lower extremity edema, rib fractures 03/2022 after a mechanical fall, left lower extremity wound. She follows with Dr. Gallardo. We have been asked to see in consultation for chest pain. Presents to the ER with elevated/uncontrolled BP. She states she checked her BP at home and her SBP 200s and was not improving. She called her PCP Dr. Moe office and was instructed to come to the ER. She had symptoms of palpitations, states she felt it in her left shoulder blade, lasted less than a minute and resolved. Denies any chest pain, shortness of breath, nausea, diaphoresis, lightheadedness, dizziness, syncope or near syncope. She denies any symptoms of orthopnea or PND. She states that her lower extremity edema and redness has improved, she follows up outpatient and has bilateral leg wraps. She states she is compliant with her medications. She states she was started on Valsartan in 02/2022 and dose was increased last month. She denies any history o f CAD, VA, Stroke, Dyslipidemia, or seizures. Denies tobacco use. DIAGNOSTICS * EKG reveals sinus rhythm, heart rate 89, incomplete left bundle branch block, LVH, non-specific ST-T wave abnormality. Prior EKG with similar findings * Telemetry tracings indicate sinus rhythm, heart rate 70s90s * Chest xray cardiomegaly, healed fracture deformity in the left proximal humerus, chronic parenchymal changes bilaterally. * Laboratory reviewed, troponin negative 3, proBNP 3450, sodium 140, potassium 3.7, BUN 17, serum creatinine 1.2, WBC 6.0, hemoglobin 11.1, platelets 319 * Current home medications include valsartan 320 mg daily, Januvia, Detrol, Synthroid REVIEW OF SYSTEMS At the time of my exam: CONSTITUTIONAL: Denies fever or chills. CARDIOVASCULAR: Denies chest pain, shortness of breath, orthopnea, PND or palpitations. RESPIRATORY: Denies cough. GASTROINTESTINAL: Denies abdominal pain, diarrhea, constipation, nausea or vomiting. MUSCULOSKELETAL: Denies myalgias. NEUROLOGIC: Denies numbness, tingling, headacbe or weakness. ENDOCRINE: Denies fatigue, weight change, polydipsia or polyurina. GENITOURINARY: Denies burning, hematuria or urgency with micturation. HEMATOLOGIC: Denies history of anemia or bleeding. PHYSICAL EXAMINATION Blood pressure 181/84, heart rate 96, afebrile, oxygen saturation is 100% on room air CONSTITUTIONAL: No apparent distress. HEENT: Head is normocephalic. Pupils are equal, round. Sclerae anicteric. Mucous membranes of the mouth are moist. No JVD. No carotid bruit. CHEST EXAMINATION: Lungs are clear to auscultation. No chest wall tenderness is noted on palpation or with deep breathing. HEART EXAMINATION: Regular rate and rhythm. S1, S2 heard. No murmurs, gallops or rub. ABDOMEN: Soft, nontender. Positive bowel sounds. EXTREMITIES: 2+ peripheral pulses, moderate to severe bilateral lower extremity edema, non pitting, left lower exremity redness from ankle up to knee. and no calf tenderness. NEUROLOGIC EXAMINATION: Patient is awake, alert and oriented x3. ASSESSMENT Hypertension, uncontrolled Acute kidney injury Type 2 Diabetes Hypothyroidism Chronic lower extremity edema PLAN Patient denies any chest pain Acute coronary syndrome has been ruled out Start amlodipine 5mg daily Continue Valsartan Obtain 2D echocardiogram and doppler study to assess cardiac structure and function. If BP has improved, no further inpatient workup from a cardiology perspective, follow up with Dr. Gallardo as an outpatient, patient with follow up and scheduled stress test in the office on 07/07/2022. Nurse practitioner note has been reviewed by physician. Signing provider agrees with the documented findings, assessment, and plan of care. Past Medical History Past Medical History: Diabetes Mellitus, Hyperlipidemia, Hypertension, Osteoarthritis (OA) History of Any Multi-Drug Resistant Organisms: None Reported Past Surgical History: No Surgical Hx Reported Additional Past Surgical History / Comment(s): cataract & carpal-tunnel bilat. Past Anesthesia/Blood Transfusion Reactions: No Reported Reaction Past Psychological History: No Psychological Hx Reported Smoking Status: Never smoker Past Alcohol Use History: None Reported Past Drug Use History: None Reported - Past Family History Mother Family Medical History: Coronary Artery Disease (CAD), Diabetes Mellitus, Hypertension, Mitral Valve Prolapse (MVP) Father Family Medical History: Hypertension Additional Family Medical History / Comment(s): father hip surgery Medications and Allergies Home Medications Medication Instructions Recorded Confirmed Type Levothyroxine Sodium 25 mcg PO HS@2300 06/28/22 06/28/22 History Tolterodine ER [Detrol LA] 4 mg PO DAILY@0000 06/28/22 06/28/22 History Valsartan 320 mg PO DAILY@0000 06/28/22 06/28/22 History sitaGLIPtin [Januvia] 100 mg PO DAILY@0000 06/28/22 06/28/22 History Allergies Allergy/AdvReac Type Severity Reaction Status Date / Time bacitracin Allergy Rash/Hives Verified 06/28/22 17:54 [From Neosporin ([id number])] ibuprofen Allergy Wheezing Verified 06/28/22 17:54 neomycin Allergy Rash/Hives Verified 06/28/22 17:54 [From Neosporin ([id number])] polymyxin B Allergy Rash/Hives Verified 06/28/22 17:54 [From Neosporin ([id number])] Physical Exam Vitals: Vital Signs Temp Pulse Pulse Resp BP BP Pulse Ox 06/29/22 03:45 98.5 F 96 17 181/84 100 06/28/22 21:18 97.9 F 88 18 179/75 98 06/28/22 17:39 90 18 167/84 06/28/22 15:53 98 F 100 20 217/68 97 Intake and Output 06/28/22 06/29/22 06/29/22 22:59 06:59 14:59 Other: # Voids 0 1 Weight 77.111 kg Results 06/28/22 16:20 06/28/22 16:20 Cardiac Enzymes 06/28/22 06/28/22 06/28/22 Range/Units 16:20 16:20 19:30 AST 19 (14-36) U/L Troponin I 0.023 0.028 (0.000-0.034) ng/mL 06/28/22 Range/Units 22:01 AST (14-36) U/L Troponin I 0.034 (0.000-0.034) ng/mL Coagulation 06/28/22 Range/Units 16:20 PT 10.2 (9.0-12.0) sec APTT 24.2 (22.0-30.0) sec CBC 06/28/22 Range/Units 16:20 WBC 6.0 (3.8-10.6) k/uL RBC 4.24 (3.80-5.40) m/uL Hgb 11.1 L (11.4-16.0) gm/dL Hct 34.2 (34.0-46.0) % Plt Count 319 (150-450) k/uL Comprehensive Metabolic Panel 06/28/22 Range/Units 16:20 Sodium 140 (137-145) mmol/L Potassium 3.7 (3.5-5.1) mmol/L Chloride 104 (98-107) mmol/L Carbon Dioxide 22 (22-30) mmol/L BUN 17 (7-17) mg/dL Creatinine 1.21 H (0.52-1.04) mg/dL Glucose 169 H (74-99) mg/dL Calcium 9.2 (8.4-10.2) mg/dL AST 19 (14-36) U/L ALT 13 (4-34) U/L Alkaline Phosphatase 107 (38-126) U/L Total Protein 7.7 (6.3-8.2) g/dL Albumin 4.0 (3.5-5.0) g/dL Current Medications Generic Name Dose Route Start Last Admin Trade Name Freq PRN Reason Stop Dose Admin Hydrocodone Bitart/Acetaminophen 1 each 06/28/22 18:50 Hydrocodone/Apap 5-325mg 1 Each Tab PO Q4HR PRN Moderate Pain (Scale 4 to 6) Al Hydroxide/Mg Hydroxide 15 ml 06/28/22 18:50 Mag Hydrox/Al Hydrox/Simeth 30 Ml Cup PO Q6HR PRN Indigestion Alprazolam 0.25 mg 06/28/22 18:50 Alprazolam 0.25 Mg Tab PO Q6HR PRN Anxiety Aspirin 81 mg 06/29/22 09:00 Aspirin 81 Mg PO DAILY [facility] Clonidine 0.2 mg 06/29/22 01:56 Clonidine Hcl 0.2 Mg Tab PO TID PRN Blood Pressure - High Docusate Sodium 100 mg 06/28/22 18:50 Docusate 100 Mg Cap PO BID PRN Constipation Heparin Sodium (Porcine) 5,000 unit 06/29/22 08:00 Heparin Sodium,Porcine/Pf 5,000 Unit/0.5 Ml Syringe SQ Q8HR [facility] Levothyroxine Sodium 25 mcg 06/28/22 23:00 06/29/22 00:13 Levothyroxine 25 Mcg Tab PO Not Given HS@2300 [facility] Linagliptin 5 mg 06/29/22 00:00 06/29/22 00:17 Linagliptin 5 Mg Tablet PO Not Given DAILY@0000 [facility] Naloxone HCl 0.2 mg 06/28/22 18:50 Naloxone 0.4 Mg/Ml 1 Ml Vial IV Q2M PRN Opioid Reversal Nystatin 1 applic 06/29/22 02:00 06/29/22 03:44 Nystatin 100,000unit/Gm Cream 30 Gm Tube TOPICAL 1 applic TID [facility] Administration Protocol Ondansetron HCl 4 mg 06/28/22 18:50 Ondansetron 4 Mg/2 Ml Vial IVP Q8HR PRN Nausea And Vomiting Oxybutynin Chloride 10 mg 06/29/22 00:00 06/29/22 00:17 Oxybutynin Xl 5 Mg Tab.Er.24 PO Not Given DAILY@0000 [facility] Temazepam 15 mg 06/28/22 18:50 Temazepam 15 Mg Cap PO HS PRN Insomnia Valsartan 320 mg 06/29/22 00:00 06/29/22 00:23 Valsartan 160 Mg Tab PO Not Given DAILY@0000 [facility] Intake and Output 06/28/22 06/29/22 06/29/22 22:59 06:59 14:59 Other: # Voids 0 1 Weight 77.111 kg 06/28/22 16:20 06/28/22 16:20
[2022-06-29 10:03] LABS: African American GFR (CKD) 55 (>60 ml/min/1.73 sqM); Anion Gap 10 mmol/L; Blood Urea Nitrogen 18 mg/dL (7-17); Calcium 8.6 mg/dL (8.4-10.2); Carbon Dioxide 25 mmol/L (22-30); Chloride 104 mmol/L (98-107); Glucose 149 mg/dL (74-99); Non-African American GFR(CKD) 48 (>60 ml/min/1.73 sqM); Potassium 3.7 mmol/L (3.5-5.1); Sodium 139 mmol/L (137-145)
[2022-06-29 12:24] LABS: Glucose,Whole Blood 135 mg/dL (70-110)
[2022-06-29] MEDS: VALSARTAN 160 MG TAB PO SCH (13:39)
[2022-06-29] MEDS: OXYBUTYNIN 10 MG TAB.ER.24 PO SCH (13:39)
[2022-06-29] MEDS: LINAGLIPTIN 5 MG TABLET PO SCH (13:39)
[2022-06-29] MEDS: LEVOTHYROXINE 25 MCG TAB PO SCH (14:11)
[2022-06-29 16:38] LABS: Glucose,Whole Blood 180 mg/dL (70-110)
--- NOTE | 2022-06-29 17:10 | P.PN ---
Subjective Progress Note Date: 06/29/22 Hospital course: Patient is a very pleasant 82-year-old female with a past medical history of hypertension, hyperlipidemia, hypothyroidism and diabetes mellitus. She presented to the emergency department on 06/28/22 with a chief complaint of uncontrolled hypertension. Patient denied having any headache, lightheadedness, dizziness, chest pain, palpitations, shortness of breath, or experiencing any numbness/tingling/weakness/swelling in her extremities. Patient did report a one-time episode of pain/pressure in her left shoulder. Upon arrival to our facility patient was found to be in hypertensive urgency with blood pressure 181/84. EKG completed revealing sinus rhythm with ST depression in leads I, II, and aVF as well as T-wave inversion in leads aVL. Chest x-ray completed revealing cardiomegaly and chronic changes but negative for acute cardiopulmonary process. Patient admitted under our services with consultation to cardiology. Physical exam: Vital signs reviewed and stable. General: Nontoxic, no distress and appears stated age. Derm: Skin warm and dry, normal coloration for ethnicity. Head: Atraumatic, normocephalic and symmetric. Eyes: EOMs intact, no lid lag, and anicteric sclera Mouth: no lip lesions, mucus membranes moist Cardiovascular: regular rate and rhythm with normal S1S2, systolic murmur, positive posterior tibial pulses bilaterally, and cap refill < 2 seconds. Lungs: Respirations even, regular, and unlabored on room air. Lungs CTA b ilaterally, no rhonchi, no rales, no wheezing, and no accessory muscle usage. Abdominal: soft, nontender to palpation, no guarding, no appreciable organomegaly Ext: ROM intact. No gross muscle atrophy, no edema, no contractures Neuro: Speech clear, face symmetrical and CN II-XII grossly intact with no noted focal neuro deficits Psych: Alert and oriented to person, place, time, and situation. Appropriate and pleasant affect. Assessment and Plan of Care: Hypertensive urgency Left shoulder pain/discomfort, rule out acute coronary event -Cardiology consult, appreciate further recommendations -Telemetry monitoring -Troponins negative -Cardiac diet -Patient started on Norvasc in addition to valsartan -Echocardiogram CODE STATUS: Full code DVT prophylaxis: Heparin Discussed with: Patient and RN Anticipated discharge date: Delayed discharge, awaiting echocardiogram results Anticipated discharge place: Home A total of 34 minutes was spent on the care of this complex patient more than 50% of the time was spent in counseling and care coordination. Objective - Vital Signs Vital signs: Vital Signs Temp 98.2 F 06/29/22 14:08 Pulse 86 06/29/22 14:08 Resp 18 06/29/22 14:08 BP 177/82 06/29/22 14:08 Pulse Ox 100 06/29/22 14:08 FiO2 Intake & Output 06/28/22 06/29/22 06/29/22 18:59 06:59 18:59 Weight 77.111 kg 77.111 kg Other: # Voids 1 - Labs CBC & Chem 7: 06/28/22 16:20 06/29/22 09:17 Labs: Abnormal Lab Results - Last 24 Hours (Table) 06/28/22 06/28/22 06/29/22 Range/Units 16:20 21:17 07:05 BUN (7-17) mg/dL Creatinine 1.21 H (0.52-1.04) mg/dL Glucose 169 H (74-99) mg/dL POC Glucose (mg/dL) 118 H 181 H (70-110) mg/dL 06/29/22 06/29/22 06/29/22 Range/Units 09:17 12:22 16:37 BUN 18 H (7-17) mg/dL Creatinine 1.10 H (0.52-1.04) mg/dL Glucose 149 H (74-99) mg/dL POC Glucose (mg/dL) 135 H 180 H (70-110) mg/dL
[2022-06-29 19:46] LABS: Glucose,Whole Blood 310 mg/dL (70-110)
[2022-06-30] MEDS: HEPARIN SODIUM,PORCINE/PF 5,000 UNIT/0.5 ML SYRINGE SQ SCH ×2 (01:12→08:58)
[2022-06-30] MEDS: LEVOTHYROXINE 25 MCG TAB PO SCH (05:29)
--- NOTE | 2022-06-30 07:27 | CA ---
Transthoracic Echo Report Name: Martín Alcaraz Age: 82 Gender: F : 1940 Exam Date: 06/29/2022 10:01 Exam Location: [place] [facility] Ht (in): 62 Wt (lb): 170 Ordering Physician: Bisi Choudhary Attending/Referring Phys: Veterinary Assistant Technician Mari Ballesteros, RUSSELL Procedure CPT: Indications: LV function, HTN Cardiac Hx: Technical Quality: Good Contrast 1: Total Dose (mL): Contrast 2: Total Dose (mL): MEASUREMENTS (Male / Female) Normal Values 2D ECHO LV Diastolic Diameter PLAX 4.3 cm 4.2 - 5.9 / 3.9 - 5.3 cm LV Systolic Diameter PLAX 3.3 cm IVS Diastolic Thickness 1.3 cm 0.6 - 1.0 / 0.6 - 0.9 cm LVPW Diastolic Thickness 1.9 cm 0.6 - 1.0 / 0.6 - 0.9 cm LV Relative Wall Thickness 0.7 LA Systolic Diameter LX 4.0 cm 3.0 - 4.0 / 2.7 - 3.8 cm LA Volume 102.9 cm??? 18 - 58 / 22 - 52 cm??? M-MODE Aortic Root Diameter MM 3.3 cm LA Systolic Diameter MM 3.9 cm LA Ao Ratio MM 1.2 AV Cusp Separation MM 1.2 cm DOPPLER AV Peak Velocity 143.9 cm/s AV Peak Gradient 8.3 mmHg MV Area PHT 4.4 cm??? Mitral E Point Velocity 102.1 cm/s Mitral A Point Velocity 61.7 cm/s Mitral E to A Ratio 1.7 MV Deceleration Time 173.2 ms MV E' Velocity 5.1 cm/s Mitral E to MV E' Ratio 19.9 FINDINGS Left Ventricle Left ventricular ejection fraction is estimated at 55-60%. Mildly increased left ventricular wall thickness.left ventricular cavity size normal. Right Ventricle Normal right ventricular size and function. Right Atrium Normal right atrial size. Left Atrium Mildly increased left atrial diameter. Severely increased left atrial volume. Mildly increased left atrial area. Mitral Valve Mitral annular calcification. [id number] mitral regurgitation. Aortic Valve Trileaflet aortic valve. Aortic valve sclerosis. Moderate calcification of the aortic valve Tricuspid Valve Structurally normal tricuspid valve.trace to mild tricuspid regurgitation. Pulmonic Valve Pulmonic valve not well visualized. Pericardium Normal pericardium. Aorta Normal size aortic root and proximal ascending aorta. CONCLUSIONS 1. Normal left ventricular size and systolic function 2. [id number] mitral regurgitation 3. Calcified aortic valve with mild aortic stenosis Previewed by: Dr. Alesia Asher MD (Electronically Signed) Final Date: 30 June 2022 07:26
[2022-06-30 07:30] LABS: Glucose,Whole Blood 155 mg/dL (70-110)
[2022-06-30 08:40] VITALS: BP 152/76; PULSE 84; RESP 16; TEMP 97.4
--- NOTE | 2022-06-30 08:56 | P.PN ---
Subjective This is a 82 year old female with a past medical history of hypertension, type 2 diabetes, venous insufficiency, hypothyroidism, chronic lower extremity edema, rib fractures 03/2022 after a mechanical fall, left lower extremity wound. She follows with Dr. Gallardo. We have been asked to see in consultation for chest pain. Presents to the ER with elevated/uncontrolled BP. She states she checked her BP at home and her SBP 200s and was not improving. She called her PCP Dr. Moe office and was instructed to come to the ER. Denies any chest pain, sh ortness of breath, nausea, diaphoresis, lightheadedness, dizziness, syncope or near syncope. She states that her lower extremity edema and redness has improved, she follows up outpatient and has bilateral leg wraps. She states she is compliant with her medications. She states she was started on Valsartan in 02/2022 and dose was increased last month. She denies any history of CAD, MT, Stroke, Dyslipidemia, or seizures. Denies tobacco use. Patient seen and examined at bedside, no acute distress. No complaints, feeling well. She denies any chest pain or shortness of breath. BP has improved. Echo revealed EF 55-60% with mild to moderate mitral regurgitation. PHYSICAL EXAMINATION Blood pressure 152/76, heart rate 84, afebrile, saturation 96% on room air CONSTITUTIONAL: No apparent distress. HEENT: Head is normocephalic. Neck supple. No JVD. CHEST EXAMINATION: Lungs are clear to auscultation. No chest wall tenderness is noted on palpation or with deep breathing. HEART EXAMINATION: Regular rate and rhythm. S1, S2 heard. Systolic ejection murmur. ABDOMEN: Soft, nontender. Positive bowel sounds. EXTREMITIES: 2+ peripheral pulses, moderate to severe bilateral lower extremity edema, non pitting, left lower exremity redness from ankle up to knee. and no calf tenderness. NEUROLOGIC EXAMINATION: Patient is awake, alert and oriented x3. ASSESSMENT Hypertension, uncontrolled Acute kidney injury Type 2 Diabetes Hypothyroidism Chronic lower extremity edema PLAN Continue amlodipine 5mg daily Continue Valsartan From cardiology perspective, patient stable to be discharged home. Follow up outpatient. Nurse practitioner note has been reviewed by physician. Signing provider agrees with the documented findings, assessment, and plan of care. Objective - Vital Signs Vital signs: Vital Signs Temp 97.4 F L 06/30/22 07:00 Pulse 84 06/30/22 07:00 Resp 16 06/30/22 07:00 BP 152/76 06/30/22 07:00 Pulse Ox 96 06/30/22 07:00 FiO2 Intake & Output 06/29/22 06/30/22 06/30/22 18:59 06:59 18:59 Intake Total 118 Balance 118 Intake: Oral 118 Other: # Voids 4 3 - Labs CBC & Chem 7: 06/28/22 16:20 06/29/22 09:17 Labs: Abnormal Lab Results - Last 24 Hours (Table) 06/29/22 06/29/22 06/29/22 Range/Units 09:17 12:22 16:37 BUN 18 H (7-17) mg/dL Creatinine 1.10 H (0.52-1.04) mg/dL Glucose 149 H (74-99) mg/dL POC Glucose (mg/dL) 135 H 180 H (70-110) mg/dL 06/29/22 06/30/22 Range/Units 19:44 07:28 BUN (7-17) mg/dL Creatinine (0.52-1.04) mg/dL Glucose (74-99) mg/dL POC Glucose (mg/dL) 310 H 155 H (70-110) mg/dL
[2022-06-30] MEDS: VALSARTAN 160 MG TAB PO SCH (08:57)
[2022-06-30] MEDS: amLODIPine 5 MG TAB PO SCH (08:57)
[2022-06-30] MEDS: LINAGLIPTIN 5 MG TABLET PO SCH (08:58)
[2022-06-30] MEDS: ASPIRIN 81 MG PO SCH (08:58)
[2022-06-30] MEDS: OXYBUTYNIN 10 MG TAB.ER.24 PO SCH (08:58)
[2022-06-30] MEDS: NYSTATIN 100,000UNIT/GM CREAM 30 GM TUBE TOPICAL SCH (08:59)
--- NOTE | 2022-06-30 09:37 | P.DS ---
Providers Date of admission: 06/28/22 18:50 Expected date of discharge: 06/30/22 Attending physician: Barry Vásquez MD Consults: 06/28/22 18:51 Consult Physician Routine Consulting Provider: Thao Banuelos Consult Reason/Comments: chest pain Do you want consulting provider notified?: Yes, Notify in am Primary care physician: Luis [facility] Course: Discharge Diagnosis: Hypertensive urgency, patient started on amlodipine 5 mg daily in addition to valsartan. Patient instructed to monitor blood pressure twice daily at home and record these findings in a daily log/Journal to bring with her to her next doctor's appointment as additional medication changes may be needed. Chest pain/left shoulder pain/discomfort, acute coronary event ruled out. Patient scheduled for outpatient cardiac stress test with Dr. Childers on 07/07/22 at 9:45 AM. Hyperlipidemia, continue heart healthy and carb consistent diet. Hypothyroidism, continue daily home medication regimen with levothyroxine. [id number] diabetes mellitus type 2, continue daily home medication regimen with Januvia. Hospital Course: Patient is a very pleasant 82-year-old female with a past medical history of hypertension, hyperlipidemia, hypothyroidism and diabetes mellitus. She presented to the emergency department on 06/28/22 with a chief complaint of uncontrolled hypertension. Patient denied having any headache, lightheadedness, dizziness, chest pain, palpitations, shortness of breath, or experiencing any numbness/tingling/weakness/swelling in her extremities. Patient did report a one-time episode of pain/pressure in her left shoulder. Upon arrival to our facility patient was found to be in hypertensive urgency with blood pressure 181/84. EKG completed revealing sinus rhythm with ST depression in leads I, II, and aVF as well as T-wave inversion in leads aVL. Initial troponin 0.023. ProBNP 3450. Chest x-ray completed revealing cardiomegaly and chronic changes but negative for acute cardiopulmonary process. Patient admitted under our services with consultation to cardiology. Troponins trended resulting at 0.023, 0.028, and 0.034. Patient was started on amlodipine 5 mg daily in addition to her valsartan for treatment of hypertensive urgency. Blood pressures improving with morning BP prior to medication administration being 152/76. Echocardiogram was completed revealing normal EF 55-60% with mild to moderate mitral and tricuspid regurgitation. Cardiology clearing patient from cardiac perspective recommending outpatient follow-up on 07/07/[address] Gallardo for scheduled outpatient stress test. Patient medically stable for discharge home at this time and instructed to monitor her blood pressure twice daily at home and record these findings in a daily log/Journal to bring with her to her next doctor's appointment as additional medication changes may be needed. Physical exam: Vital signs reviewed and stable. General: Nontoxic, no distress and appears stated age. Derm: Skin warm and dry, normal coloration for ethnicity. Head: Atraumatic, normocephalic and symmetric. Eyes: EOMs intact, no lid lag, and anicteric sclera Mouth: no lip lesions, mucus membranes moist Cardiovascular: regular rate and rhythm with normal S1S2, systolic murmur, positive posterior tibial pulses bilaterally, and cap refill < 2 seconds. Lungs: Respirations even, regular, and unlabored on room air. Lungs CTA bilaterally, no rhonchi, no rales, no wheezing, and no accessory muscle usage. Abdominal: soft, nontender to palpation, no guarding, no appreciable organomegaly Ext: ROM intact. No gross muscle atrophy, BLE edema, RLE venous discoloration with excoriation. Neuro: Speech clear, face symmetrical and CN II-XII grossly intact with no noted focal neuro deficits Psych: Alert and oriented to person, place, time, and situation. Appropriate and pleasant affect. A total of 34 minutes of time were spent preparing this complex discharge summary. Pt was discharged on 06/30/22 at 9:36 AM. Patient Condition at Discharge: Stable Plan - Discharge Summary New Discharge Prescriptions: New amLODIPine [Norvasc] 5 mg PO DAILY #90 tab Nystatin 100,000Unit/gm Cream [Mycostatin Cream] 1 applic TOPICAL TID #1 each Continue sitaGLIPtin [Januvia] 100 mg PO DAILY@0000 Levothyroxine Sodium 25 mcg PO HS@2300 Valsartan 320 mg PO DAILY@0000 Tolterodine ER [Detrol LA] 4 mg PO DAILY@0000 Discharge Medication List Levothyroxine Sodium 25 mcg PO HS@2300 06/28/22 [History] Tolterodine ER [Detrol LA] 4 mg PO DAILY@0000 06/28/22 [History] Valsartan 320 mg PO DAILY@0000 06/28/22 [History] sitaGLIPtin [Januvia] 100 mg PO DAILY@0000 06/28/22 [History] Nystatin 100,000Unit/gm Cream [Mycostatin Cream] 1 applic TOPICAL TID #1 each 06/30/22 [Rx] amLODIPine [Norvasc] 5 mg PO DAILY #90 tab 06/30/22 [Rx] Follow up Appointment(s)/Referral(s): Luis Moe DO [Primary Care Provider] - 1-2 days (PLEASE CALL AND MAKE AN APPOINTMENT.) Nilton Gallardo MD [STAFF PHYSICIAN] - 07/07/22 9:45 am Patient Instructions/Handouts: Nystatin (On the skin), Amlodipine (By mouth), Chest Pain (DC), Heart Healthy Diet (DC), Basic Carbohydrate Counting (DC), Hypertensive Crisis (DC) Activity/Diet/Wound Care/Special Instructions: Activity: As tolerated. Take breaks as needed. Diet: Heart healthy and carb consistent diet. Avoid salts, or foods with hidden salts such as canned or boxed foods and frozen dinners. Extra salt makes your heart work harder and traps the fluid in your body for longer. Special Instructions: Take all of your medications as directed and remember to keep all of your doctor's appointments and follow-up as needed. It is important to monitor your blood pressure twice daily at home and document these findings in a daily log/Journal to bring with you to your next doctor's appointment as additional adjustments may be needed to your daily blood pressure medication regimen. Your appointment with cardiology for your stress test is on 07/07/22. Thank you for allowing us to participate in your care, it was truly a pleasure having you for our patient!!!
== END 2022-06-30 14:05 ==
LOC: EC 15:49 → 6NMEDSUR 18:50
PROVIDERS: ADMIT Family Medicine; ATTEND Family Medicine
DX: R07.9 Chest pain, unspecified (principal); I16.0 Hypertensive urgency; I10 Essential (primary) hypertension; N17.9 Acute kidney failure, unspecified; R60.0 Localized edema; E11.9 Type 2 diabetes mellitus without complications; B37.2 Candidiasis of skin and nail; E03.9 Hypothyroidism, unspecified; E78.5 Hyperlipidemia, unspecified; D64.9 Anemia, unspecified; I87.2 Venous insufficiency (chronic) (peripheral); M25.512 Pain in left shoulder; Z79.890 Hormone replacement therapy; Z79.899 Other long term (current) drug therapy; Z79.84 Long term (current) use of oral hypoglycemic drugs; Z88.1 Allergy status to other antibiotic agents; Z88.6 Allergy status to analgesic agent; Z83.3 Family history of diabetes mellitus; Z82.49 Family history of ischemic heart disease and other diseases of the circulatory system
CPT/HCPCS: 96372; 99285; 36415; 94760; 93005; 93306; 83880; 80053; 80048; 83735; 84484; 85025; 85610; 85730; 71046; G0378 ×3; J1644 ×2

== ENCOUNTER 2022-10-10 01:27 | Observation (INO) | payer MEDICARE ==
[2022-10-10 01:38] LABS: Glucose,Whole Blood 145 mg/dL (70-110)
[2022-10-10] MEDS ORDERED: DEXTROSE 5%-0.45% NACL 1,000 ML IV ONE (01:49)
--- NOTE | 2022-10-10 01:49 | ED ---
Recheck HPI - General Chief Complaint: Recheck/Abnormal Lab/Rx Stated Complaint: hypoglycemia Time Seen by Provider: 10/10/22 01:38 Source: patient, EMS, RN notes reviewed, old records reviewed Mode of arrival: EMS Limitations: no limitations - History of Present Illness Initial Comments: This is an 82-year-old female DF for evaluation. Patient Dese for evaluation of low blood sugar. Patient has history of diabetes she is on oral medication. Patient states she took the wrong medications ninth of both of them. Patient's blood sugar bottomed in the 40s and his been in the 50s as well. Patient currently does feel weak but has no headache chest pain shortness with abdominal pain no other complaints she does have an appetite he did try to eat and has not helped her blood sugar MD Complaint: abnormal lab (Low blood sugar) -: hour(s) Returns Today for: Called Because of Abnormal Lab/Test Symptoms Since Prior Visit: no new symptoms Context: called for abnormal lab result (Patient took her own blood sugar at home) Associated Symptoms: none Treatments Prior to Arrival: other (Patient was given blood sugar) - Related Data Home Medications Medication Instructions Recorded Confirmed Levothyroxine Sodium 25 mcg PO HS@2300 06/28/22 06/28/22 Tolterodine ER [Detrol LA] 4 mg PO DAILY@0000 06/28/22 06/28/22 Valsartan 320 mg PO DAILY@0000 06/28/22 06/28/22 sitaGLIPtin [Januvia] 100 mg PO DAILY@0000 06/28/22 06/28/22 Previous Rx's Medication Instructions Recorded Nystatin 100,000Unit/gm Cream 1 applic TOPICAL TID #1 each 06/30/22 [Mycostatin Cream] amLODIPine [Norvasc] 5 mg PO DAILY #90 tab 06/30/22 Allergies Allergy/AdvReac Type Severity Reaction Status Date / Time bacitracin Allergy Rash/Hives Verified 10/10/22 01:37 [From Neosporin ([id number])] ibuprofen Allergy Wheezing Verified 10/10/22 01:37 neomycin Allergy Rash/Hives Verified 10/10/22 01:37 [From Neosporin ([id number])] polymyxin B Allergy Rash/Hives Verified 10/10/22 01:37 [From Neosporin ([id number])] Review of Systems ROS Statement: Those systems with pertinent positive or pertinent negative responses have been documented in the HPI. ROS Other: All systems not noted in ROS Statement are negative. Past Medical History Past Medical History: Diabetes Mellitus, Hyperlipidemia, Hypertension, Osteoarthritis (OA) History of Any Multi-Drug Resistant Organisms: None Reported Past Surgical History: No Surgical Hx Reported Additional Past Surgical History / Comment(s): cataract & carpal-tunnel bilat. Past Anesthesia/Blood Transfusion Reactions: No Reported Reaction Past Psychological History: No Psychological Hx Reported Smoking Status: Never smoker Past Alcohol Use History: None Reported Past Drug Use History: None Reported - Past Family History Mother Family Medical History: Coronary Artery Disease (CAD), Diabetes Mellitus, Hypertension, Mitral Valve Prolapse (MVP) Father Family Medical History: Hypertension Additional Family Medical History / Comment(s): father hip surgery General Exam Limitations: no limitations General appearance: alert, in no apparent distress Head exam: Present: atraumatic, normocephalic, normal inspection Eye exam: Present: normal appearance, PERRL, EOMI. Absent: scleral icterus, conjunctival injection, periorbital swelling ENT exam: Present: normal exam, mucous membranes moist Neck exam: Present: normal inspection. Absent: tenderness, meningismus, lymphadenopathy Respiratory exam: Present: normal lung sounds bilaterally. Absent: respiratory distress, wheezes, rales, rhonchi, stridor Cardiovascular Exam: Present: regular rate, normal rhythm, normal heart sounds. Absent: systolic murmur, diastolic murmur, rubs, gallop, clicks GI/Abdominal exam: Present: soft, normal bowel sounds. Absent: distended, tenderness, guarding, rebound, rigid Extremities exam: Present: normal inspection, full ROM, normal capillary refill. Absent: tenderness, pedal edema, joint swelling, calf tenderness Back exam: Present: normal inspection Neurological exam: Present: alert, oriented X3, CN II-XII intact Psychiatric exam: Present: normal affect, normal mood Skin exam: Present: warm, dry, intact, normal color. Absent: rash Course Vital Signs 10/10/22 01:31 Temperature 97.6 F Pulse Rate 92 Respiratory 18 Rate Blood Pressure 185/105 O2 Sat by Pulse 98 Oximetry - Reevaluation(s) Reevaluation #1: 10/10/22 01:59 Medical record is reviewed Reevaluation #2: 10/10/22 01:59 Patient has no change in symptoms here in the ER awake alert feels well Reevaluation #3: 10/10/22 01:59 Patient informed results and questions answered Reevaluation #4: 10/10/22 02:00 Differential Altered Mental Status: Hypoglycemia, DKA, hypercapnia, ETOH, overdose, CO poisoning, trauma, myxedema coma, HTN encephalopathy, infection, encephalitis, psychosis, intercranial hemorrhage, hepatic encephalopathy, meningitis, CVA, this is not meant to be an all-inclusive list Reevaluation #5: 10/10/22 02:00 Was pt. sent in by a medical professional or institution? @ -no Did you speak to anyone other than the patient for history? @ -EMS Did you review nursing and triage notes? @ -agree Were old charts reviewed? @ -no Differential Diagnosis? @ -no EKG interpreted by me (3pts min.)? @ -[none] X-rays interpreted by me (1pt min.)? @ -[none] CT interpreted by me (1pt min.)? @ -[none] U/S interpreted by me (1pt. min.)? @ -[none] What testing was considered but not performed? (CT, X-rays, U/S, labs)? Why? @ no What meds were considered but not given? Why? @ -[none] Did you discuss the management of the patient with other professionals? @ -no Did you reconcile home meds? @ -[none] Was smoking cessation discussed for >3mins.? @ -[none] Was critical care preformed (if so, how long)? @ -[none] Were there social determinants of health that impacted care today? How? (Homelessness, low income, unemployed, alcoholism, drug addiction, transportation, low edu. Level, literacy, decrease access to med. care, senior care, rehab)? @ -no Was there de-escalation of care discussed even if they declined? (Discuss DNR or withdrawal of care, Hospice)? @ -no What co-morbidities impacted this encounter? (DM, HTN, Smoking, COPD, CAD, Cancer, CVA, Hep., AIDS, mental health diagnosis, sleep apnea, morbid obesity)? @ -no Was patient admitted / discharged? @ -admit Undiagnosed new problem with uncertain prognosis? @ -[none] Drug Therapy requiring intensive monitoring for toxicity (Heparin, Nitro, Insulin, Cardizem)? @ -[none] Were any procedures done? @ -[none] Diagnosis/symptom? @ -[default] Acute, or Chronic, or Acute on Chronic? @ -[default] Uncomplicated (without systemic symptoms) or Complicated (systemic symptoms)? @ -[default] Side effects of treatment? @ -[none] Exacerbation, Progression, or Severe Exacerbation] @ -[no] Poses a threat to life or bodily function? @ -[no] Medical Decision Making - Medical Decision Making 82 female DF for evaluation patient Dese for evaluation of low blood sugar recurrent hypoglycemia here in the emergency department. Patient will be admitted for monitoring of blood sugar patient is on oral diabetic medication - Lab Data Lab Results 10/10/22 Range/Units 01:36 POC Glucose (mg/dL) 145 H (70-110) mg/dL POC Glu [employer] ID Lowell Oh Disposition Clinical Impression: Hypoglycemia Narrative: Recurrent Hypoglycemia on Oral Meds Disposition: ADMITTED IP TO THIS HOSP Condition: Fair Is patient prescribed a controlled substance at d/c from ED?: No Referrals: Luis Moe DO [Primary Care Provider] - 1-2 days Time of Disposition: 02:00
[2022-10-10] MEDS ORDERED: NALOXONE 0.4 MG/ML 1 ML VIAL IV PRN (01:57)
[2022-10-10 02:10] LABS: Glucose,Whole Blood 48 mg/dL (70-110)
[2022-10-10 02:37] LABS: Basophils # (A) 0.1 k/uL (0-0.2); Basophils % (A) 1 %; Eosinophils # (A) 0.1 k/uL (0-0.7); Eosinophils % (A) 2 %; HCT 34.7 % (34.0-46.0); HGB 10.8 gm/dL (11.4-16.0); Lymphocytes # (A) 0.8 k/uL (1.0-4.8); Lymphocytes % (A) 9 %; MCH 25.8 pg (25.0-35.0); MCHC 31.2 g/dL (31.0-37.0); MCV 82.7 fL (80.0-100.0); Mean Platelet Volume 6.9; Monocytes # (A) 0.7 k/uL (0-1.0); Monocytes % (A) 8 %; Neutrophils # (A) 6.4 k/uL (1.3-7.7); Neutrophils % (A) 79 %; Platelet Count 408 k/uL (150-450); RBC 4.19 m/uL (3.80-5.40); WBC 8.1 k/uL (3.8-10.6)
[2022-10-10 02:47] LABS: ALT 16 U/L (4-34); AST 25 U/L (14-36); African American GFR (CKD) 53 (>60 ml/min/1.73 sqM); Albumin 3.8 g/dL (3.5-5.0); Alkaline Phosphatase 98 U/L (38-126); Anion Gap 8 mmol/L; Blood Urea Nitrogen 22 mg/dL (7-17); Calcium 8.7 mg/dL (8.4-10.2); Carbon Dioxide 25 mmol/L (22-30); Chloride 108 mmol/L (98-107); Glucose 158 mg/dL (74-99); Magnesium 2.2 mg/dL (1.6-2.3); Non-African American GFR(CKD) 46 (>60 ml/min/1.73 sqM); Phosphorus 3.5 mg/dL (2.5-4.5); Potassium 4.2 mmol/L (3.5-5.1); Sodium 141 mmol/L (137-145); Total Bilirubin 0.3 mg/dL (0.2-1.3); Total Protein 7.9 g/dL (6.3-8.2)
[2022-10-10 02:57] LABS: Glucose,Whole Blood 58 mg/dL (70-110)
[2022-10-10] MEDS ORDERED: OCTREOTIDE 200 MCG/ML 5 ML VIAL IVP STA (04:20)
[2022-10-10 04:21] LABS: Glucose,Whole Blood 40 mg/dL (70-110)
[2022-10-10 05:13] LABS: Glucose,Whole Blood 43 mg/dL (70-110)
[2022-10-10 06:41] LABS: Glucose,Whole Blood 157 mg/dL (70-110)
[2022-10-10 07:47] LABS: Appearance,Urine Cloudy (Clear); Bacteria,Urine Moderate /hpf; Bilirubin,Urine Negative (Negative); Blood,Urine Moderate (Negative); Color,Urine Light Yellow; Glucose,Urine (UA) 3+ (Negative); Ketones,Urine Negative (Negative); Leukocyte Esterase,Urine Large (Negative); Nitrite,Urine Negative (Negative); Protein,Urine Trace (Negative); RBC,Urine 6 /hpf (0-5); Specific Gravity,Urine 1.009 (1.001-1.035); Squamous Epithelial Cell,Urine <1 /hpf (0-4); Urobilinogen,Urine <2.0 mg/dL (<2.0); WBC,Urine >182 /hpf (0-5)
[2022-10-10 08:23] LABS: Glucose,Whole Blood 261 mg/dL (70-110)
[2022-10-10 08:33] VITALS: RESP 18
[2022-10-10] MEDS ORDERED: SODIUM CHLORIDE 0.9% 1,000 ML IV SCH (11:00)
[2022-10-10 11:45] LABS: Glucose,Whole Blood 264 mg/dL (70-110)
[2022-10-10 14:21] VITALS: BP 144/69; PULSE 91; TEMP 98.5
--- NOTE | 2022-10-10 14:33 | P.HPIM ---
History of Present Illness 82-year-old pleasant female admitted for hyperglycemia patient does take Jardiance and Januvia. It appears her regimen was recently changed. Patient was on IV dextrose. Patient blood sugars improved. Patient has bilateral lower extremity edema with chronic venous stasis of the left lower extremity left lower extremity did look like cellulitis have met as per the patient it has been present for many years and she use Domo bandage for that swelling in the left leg. Patient blood sugars yesterday was below 40. Patient is clinically doing well. Patient has mild acute renal dysfunction with elevated creatinine of 1.14 patient received IV fluids. REVIEW OF SYSTEMS: CONSTITUTIONAL: No fever, no malaise, no fatigue. HEENT: No recent visual problems or hearing problems. Denied any sore throat. CARDIOVASCULAR: No chest pain, orthopnea, PND, no palpitations, no syncope. PULMONARY: No shortness of breath, no cough, no hemoptysis. GASTROINTESTINAL: No diarrhea, no nausea, no vomiting, no abdominal pain. NEUROLOGICAL: No headaches, no weakness, no numbness. HEMATOLOGICAL: Denies any bleeding or petechiae. GENITOURINARY: Denies any burning micturition, frequency, or urgency. MUSCULOSKELETAL/RHEUMATOLOGICAL: Denies any joint pain, swelling, or any muscle pain. ENDOCRINE: Denies any polyuria or polydipsia. The rest of the 14-point review of systems is negative. PHYSICAL EXAMINATION: GENERAL: The patient is alert and oriented x3, not in any acute distress. Well developed, well nourished. HEENT: Pupils are round and equally reacting to light. EOMI. No scleral icterus. No conjunctival pallor. Normocephalic, atraumatic. No pharyngeal erythema. No thyromegaly. CARDIOVASCULAR: S1 and S2 present. No murmurs, rubs, or gallops. PULMONARY: Chest is clear to auscultation, no wheezing or crackles. ABDOMEN: Soft, nontender, nondistended, normoactive bowel sounds. No palpable organomegaly. MUSCULOSKELETAL: No joint swelling or deformity. EXTREMITIES: No cyanosis, clubbing, or pedal edema. NEUROLOGICAL: Gross neurological examination did not reveal any focal deficits. SKIN: No rashes. Assessment and plan -Hypoglycemia: Secondary to new diabetic regimen, will discontinue Jardiace, generally will be continued and patient will follow with PCP for further management of diabetes mellitus. -Mild acute renal failure expected to have improved with IV fluids -Hypertension patient will continue her valsartan and amlodipine -Type 2 diabetes mellitus -Hypertension -Hyperlipidemia Patient will be discharged today Past Medical History Past Medical History: Diabetes Mellitus, Hyperlipidemia, Hypertension, Osteoarthritis (OA) Additional Past Medical History / Comment(s): uterine cance History of Any Multi-Drug Resistant Organisms: None Reported Past Surgical History: No Surgical Hx Reported Additional Past Surgical History / Comment(s): cataract & carpal-tunnel bilat. Past Anesthesia/Blood Transfusion Reactions: No Reported Reaction Past Psychological History: No Psychological Hx Reported Smoking Status: Never smoker Past Alcohol Use History: None Reported Past Drug Use History: None Reported - Past Family History Mother Family Medical History: Coronary Artery Disease (CAD), Diabetes Mellitus, Hypertension, Mitral Valve Prolapse (MVP) Father Family Medical History: Hypertension Additional Family Medical History / Comment(s): father hip surgery Medications and Allergies Home Medications Medication Instructions Recorded Confirmed Type Levothyroxine Sodium 25 mcg PO DAILY 06/28/22 10/10/22 History Valsartan 320 mg PO DAILY 06/28/22 10/10/22 History sitaGLIPtin [Januvia] 100 mg PO DAILY 06/28/22 10/10/22 History amLODIPine [Norvasc] 5 mg PO DAILY #90 tab 06/30/22 10/10/22 Rx Myrbetriq (Uknown Strength) 1 dose PO DIRECTED 10/10/22 10/10/22 History Allergies Allergy/AdvReac Type Severity Reaction Status Date / Time bacitracin Allergy Rash/Hives Verified 10/10/22 11:44 [From Neosporin ([id number])] ibuprofen Allergy Wheezing Verified 10/10/22 11:44 neomycin Allergy Rash/Hives Verified 10/10/22 11:44 [From Neosporin ([id number])] polymyxin B Allergy Rash/Hives Verified 10/10/22 11:44 [From Neosporin ([id number])] Physical Exam Vitals: Vital Signs Temp Pulse Pulse Resp BP BP Pulse Ox 10/10/22 14:20 98.5 F 91 18 144/69 100 10/10/22 08:30 98.8 F 96 18 182/85 98 10/10/22 06:00 82 16 172/85 99 10/10/22 05:00 82 16 158/75 100 10/10/22 04:00 90 16 166/70 98 10/10/22 01:31 97.6 F 92 18 185/105 98 Intake and Output 10/09/22 10/10/22 10/10/22 22:59 06:59 14:59 Intake Total 120 Output Total 700 Balance -580 Intake: Oral 120 Output: Urine 700 Other: # Voids 0 Weight 79.379 kg 79.379 kg Results CBC & Chem 7: 10/10/22 02:27 10/10/22 02:27 Labs: Abnormal Lab Results - Last 24 Hours (Table) 10/10/22 10/10/22 10/10/22 Range/Units 01:36 02:00 02:27 Hgb 10.8 L (11.4-16.0) gm/dL Lymphocytes # 0.8 L (1.0-4.8) k/uL Chloride (98-107) mmol/L BUN (7-17) mg/dL Creatinine (0.52-1.04) mg/dL Glucose (74-99) mg/dL POC Glucose (mg/dL) 145 H 48 L (70-110) mg/dL Urine Appearance (Clear) Urine Protein (Negative) Urine Glucose (UA) (Negative) Urine Blood (Negative) Ur Leukocyte Esterase (Negative) Urine RBC (0-5) /hpf Urine WBC (0-5) /hpf Urine Bacteria (None) /hpf 10/10/22 10/10/22 10/10/22 Range/Units 02:27 02:54 04:17 Hgb (11.4-16.0) gm/dL Lymphocytes # (1.0-4.8) k/uL Chloride 108 H (98-107) mmol/L BUN 22 H (7-17) mg/dL Creatinine 1.14 H (0.52-1.04) mg/dL Glucose 158 H (74-99) mg/dL POC Glucose (mg/dL) 58 L 40 L (70-110) mg/dL Urine Appearance (Clear) Urine Protein (Negative) Urine Glucose (UA) (Negative) Urine Blood (Negative) Ur Leukocyte Esterase (Negative) Urine RBC (0-5) /hpf Urine WBC (0-5) /hpf Urine Bacteria (None) /hpf 10/10/22 10/10/2223 Range/Units 05:09 06:38 07:09 Hgb (11.4-16.0) gm/dL Lymphocytes # (1.0-4.8) k/uL Chloride (98-107) mmol/L BUN (7-17) mg/dL Creatinine (0.52-1.04) mg/dL Glucose (74-99) mg/dL POC Glucose (mg/dL) 43 L 157 H (70-110) mg/dL Urine Appearance Cloudy H (Clear) Urine Protein Trace H (Negative) Urine Glucose (UA) 3+ H (Negative) Urine Blood Moderate H (Negative) Ur Leukocyte Esterase Large H (Negative) Urine RBC 6 H (0-5) /hpf Urine WBC >182 H (0-5) /hpf Urine Bacteria Moderate H (None) /hpf 10/10/22 10/10/22 Range/Units 08:21 11:43 Hgb (11.4-16.0) gm/dL Lymphocytes # (1.0-4.8) k/uL Chloride (98-107) mmol/L BUN (7-17) mg/dL Creatinine (0.52-1.04) mg/dL Glucose (74-99) mg/dL POC Glucose (mg/dL) 261 H 264 H (70-110) mg/dL Urine Appearance (Clear) Urine Protein (Negative) Urine Glucose (UA) (Negative) Urine Blood (Negative) Ur Leukocyte Esterase (Negative) Urine RBC (0-5) /hpf Urine WBC (0-5) /hpf Urine Bacteria (None) /hpf Thrombosis Risk Factor Assmnt - Choose All That Apply Each Factor Represents 1 point: Swollen legs (current) Each Risk Factor Represents 3 Points: Age 75 years or older Other congenital or acquired thrombophilia - If yes, enter type in comment: No Thrombosis Risk Factor Assessment Total Risk Factor Score: 4 Thrombosis Risk Factor Assessment Level: Moderate Risk
--- NOTE | 2022-10-10 14:58 | P.DS ---
Providers Date of admission: 10/10/22 01:57 Attending physician: Charlie Calix Primary care physician: Luis Moe [place] [facility] Course: Please refer to my HPI for further details Patient Condition at Discharge: Fair Plan - Discharge Summary Discharge Rx Participant: Yes New Discharge Prescriptions: New Cephalexin [Keflex] 500 mg PO Q8HR 5 Days #3 cap Discontinued Empagliflozin [Jardiance] 25 mg PO DAILY No Action sitaGLIPtin [Januvia] 100 mg PO DAILY Levothyroxine Sodium 25 mcg PO DAILY Valsartan 320 mg PO DAILY amLODIPine [Norvasc] 5 mg PO DAILY #90 tab Myrbetriq (Uknown Strength) 1 dose PO DIRECTED Discharge Medication List Levothyroxine Sodium 25 mcg PO DAILY 06/28/22 [History] Valsartan 320 mg PO DAILY 06/28/22 [History] sitaGLIPtin [Januvia] 100 mg PO DAILY 06/28/22 [History] amLODIPine [Norvasc] 5 mg PO DAILY #90 tab 06/30/22 [Rx] Cephalexin [Keflex] 500 mg PO Q8HR 5 Days #3 cap 10/10/22 [Rx] Myrbetriq (Uknown Strength) 1 dose PO DIRECTED 10/10/22 [History] Follow up Appointment(s)/Referral(s): Luis Moe DO [Primary Care Provider] - 3 Days Discharge Disposition: HOME SELF-CARE
[2022-10-10] MEDS ORDERED: NYSTATIN 100,000UNIT/GM CREAM 30 GM TUBE TOPICAL SCH (16:00)
[2022-10-10] MEDS ORDERED: LEVOTHYROXINE 25 MCG TAB PO SCH (23:00)
[2022-10-11] MEDS ORDERED: VALSARTAN 160 MG TAB PO SCH
[2022-10-11] MEDS ORDERED: OXYBUTYNIN 10 MG TAB.ER.24 PO SCH
[2022-10-11] MEDS ORDERED: amLODIPine 5 MG TAB PO SCH (09:00)
== END 2022-10-10 16:17 | disposition home or self-care (01) ==
LOC: EC 01:27 → 6NMEDSUR 01:57
PROVIDERS: ADMIT Hospitalist; ATTEND Hospitalist
DX: E11.649 Type 2 diabetes mellitus with hypoglycemia without coma (principal); N17.9 Acute kidney failure, unspecified; T38.3X5A Adverse effect of insulin and oral hypoglycemic [antidiabetic] drugs, initial encounter; I10 Essential (primary) hypertension; I87.8 Other specified disorders of veins; E78.5 Hyperlipidemia, unspecified; M19.90 Unspecified osteoarthritis, unspecified site; Z79.84 Long term (current) use of oral hypoglycemic drugs; Z79.890 Hormone replacement therapy; Z79.899 Other long term (current) drug therapy; Z88.1 Allergy status to other antibiotic agents; Z88.6 Allergy status to analgesic agent; Z85.42 Personal history of malignant neoplasm of other parts of uterus; Z98.49 Cataract extraction status, unspecified eye; Z98.890 Other specified postprocedural states; Z83.3 Family history of diabetes mellitus; Z82.49 Family history of ischemic heart disease and other diseases of the circulatory system
CPT/HCPCS: 96374; 99285; 36415; 93005; 80053; 82009; 83735; 84100; 84484; 85025; 81001; G0378; J2354

== ENCOUNTER 2023-08-18 17:49 | Inpatient (IN) | payer MEDICARE ==
--- NOTE | 2023-08-18 18:49 | ED ---
General Adult HPI - General Chief complaint: Recheck/Abnormal Lab/Rx Stated complaint: High BP, fast heart Rate Time Seen by Provider: 08/18/23 18:48 Source: patient Mode of arrival: ambulatory Limitations: no limitations - History of Present Illness Initial comments: Patient presents to the ED with her and son for evaluation. Patient states that she has felt fatigued, weak and dyspneic at times over the past 2 weeks or so. Patient states that her heart rate and blood pressure readings have been elevated today, and so she has come to the ED for evaluation. Patient also admits to having occasional rapid heart palpitations. Patient denies having any pain, fever or chills, headache, focal numbness/weakness/neuro deficit, visual changes, speech difficulty, chest pain or pressure, cough or cold symptoms, syncope, abdominal pain, nausea/vomiting/diarrhea, bloody or melanotic stool, dysuria or urinary symptoms, decreased urine output, leg or calf swelling or pain, or any other symptoms or complaints. Patient states that she does take medication for her blood pressure, and she denies any recent change in her medications/dosages. - Related Data Home Medications Medication Instructions Recorded Confirmed Levothyroxine Sodium 25 mcg PO DAILY 06/28/22 10/10/22 Valsartan 320 mg PO DAILY 06/28/22 10/10/22 sitaGLIPtin [Januvia] 100 mg PO DAILY 06/28/22 10/10/22 Myrbetriq (Uknown Strength) 1 dose PO DIRECTED 10/10/22 10/10/22 Previous Rx's Medication Instructions Recorded amLODIPine [Norvasc] 5 mg PO DAILY #90 tab 06/30/22 Cephalexin [Keflex] 500 mg PO Q8HR 5 Days #3 cap 10/10/22 Allergies Allergy/AdvReac Type Severity Reaction Status Date / Time bacitracin Allergy Rash/Hives Verified 08/18/23 18:00 [From Neosporin ([id number])] ibuprofen Allergy Wheezing Verified 08/18/23 18:00 neomycin Allergy Rash/Hives Verified 08/18/23 18:00 [From Neosporin ([id number])] polymyxin B Allergy Rash/Hives Verified 08/18/23 18:00 [From Neosporin ([id number])] Review of Systems ROS Statement: Those systems with pertinent positive or pertinent negative responses have been documented in the HPI. ROS Other: All systems not noted in ROS Statement are negative. Past Medical History Past Medical History: Diabetes Mellitus, Hyperlipidemia, Hypertension, Osteoar thritis (OA) Additional Past Medical History / Comment(s): uterine cance History of Any Multi-Drug Resistant Organisms: None Reported Past Surgical History: No Surgical Hx Reported Additional Past Surgical History / Comment(s): cataract & carpal-tunnel bilat. Past Anesthesia/Blood Transfusion Reactions: No Reported Reaction Past Psychological History: No Psychological Hx Reported Smoking Status: Never smoker Past Alcohol Use History: None Reported Past Drug Use History: None Reported - Past Family History Mother Family Medical History: Coronary Artery Disease (CAD), Diabetes Mellitus, Hypertension, Mitral Valve Prolapse (MVP) Father Family Medical History: Hypertension Additional Family Medical History / Comment(s): father hip surgery General Exam Limitations: no limitations General appearance: alert, in no apparent distress Head exam: Present: normocephalic Eye exam: Present: normal appearance, EOMI ENT exam: Present: mucous membranes moist Neck exam: Present: other (Trachea is in midline) Respiratory exam: Present: normal lung sounds bilaterally. Absent: respiratory distress, wheezes, rales, rhonchi, stridor Cardiovascular Exam: Present: tachycardia, irregular rhythm, normal heart sounds, other (Normal radial pulses bilaterally) GI/Abdominal exam: Present: soft. Absent: distended, tenderness, guarding Extremities exam: Absent: tenderness, pedal edema, calf tenderness Neurological exam: Present: alert, oriented X3, CN II-XII intact. Absent: motor sensory deficit Psychiatric exam: Present: normal affect Skin exam: Present: warm, dry, normal color Course Vital Signs 08/18/23 17:58 Temperature 98 F Pulse Rate 112 H Respiratory 22 Rate Blood Pressure 142/70 O2 Sat by Pulse 97 Oximetry - Reevaluation(s) Reevaluation #1: 08/18/23 20:25 Patient remains in atrial fibrillation on the cardiac nurse specialist, but her heart rate has now improved to the 80s to 90s. Patient remains alert and breathing comfortably. Patient denies development of any new symptoms while in the ED. Patient and family are aware the patient's test results, and they all agree with hospital admission at this time. 08/18/23 20:29 Case, H&P, test results and ED management thus far were discussed with Dr. Wood. She accepts hospital admission. She agrees with cardiology consultation. She has no further recommendations at this time. EKG Findings - EKG Comments: EKG Findings:: ED physician interpretation (interpreted by me): Atrial fibrillation with RVR, ventricular rate 137 bpm, EKG findings of LVH with strain pattern, normal QRS duration, normal QT interval, normal axis, no ST elevation Medical Decision Making - Medical Decision Making Was pt. sent in by a medical professional or institution (MISAEL Duron, HARNESSMAKER, urgent care, hospital, or long term...) When possible be specific @ -No Did you speak to anyone other than the patient for history (EMS, parent, family, police, friend...)? What history was obtained from this source @ -No Did you review nursing and triage notes (agree or disagree)? Why? @ -I reviewed and agree with nursing and triage notes Were old charts reviewed (outside hosp., previous admission, EMS record, old EKG, old radiological studies, urgent care reports/EKG's, long term records)? Report findings @ -No old charts were reviewed Differential Diagnosis (chest pain, altered mental status, abdominal pain women, abdominal pain men, vaginal bleeding, weakness, fever, dyspnea, syncope, head ache, dizziness, GI bleed, back pain, seizure, CVA, palpatations, mental health, musculoskeletal)? @ -Weakness, fatigue, palpitations, dysrhythmia, ACS/[place], CHF, electrolyte abnormality, renal disease, thyroid disease, medication reaction, hypertension, hypoglycemia, hyperglycemia EKG interpreted by me (3pts min.). @ -As above X-rays interpreted by me (1pt min.). @ -Chest x-ray was reviewed myself and shows no acute abnormality. CT interpreted by me (1pt min.). @ -None done U/S interpreted by me (1pt. min.). @ -None done What testing was considered but not performed or refused? (CT, X-rays, U/S, labs)? Why? @ -None What meds were considered but not given or refused? Why? @ -None Did you discuss the management of the patient with other professionals (professionals i.e. MISAEL Duron, HARNESSMAKER, lab, RT, psych nurse, social sciences lecturer, corporate giving manager, teacher, peace officer, family independence case manager)? Give summary @ -As above. Was smoking cessation discussed for >3mins.? @ -No Was critical care preformed (if so, how long)? @ -Yes, 50 minutes. Were there social determinants of health that impacted care today? How? (Homelessness, low income, unemployed, alcoholism, drug addiction, transportation, low edu. Level, literacy, decrease access to med. care, fdc, rehab)? @ -No Was there de-escalation of care discussed even if they declined (Discuss DNR or withdrawal of care, Hospice)? DNR status @ -No What co-morbidities impacted this encounter? (DM, HTN, Smoking, COPD, CAD, Cancer, CVA, ARF, Chemo, Hep., AIDS, mental health diagnosis, sleep apnea, morbid obesity)? @ -None Was patient admitted / discharged? Hospital course, mention meds given and route, prescriptions, significant lab abnormalities, going to OR and other pe rtinent info. @ -Patient presented to the ED in atrial fibrillation with RVR. Patient's heart rate has now improved to the 80s to 90s after a single dose of IVP Cardizem. Patient troponin is minimally elevated, which I suspect is due to her rapid heart rate. Patient denies having any chest pain or pressure. Patient has also been treated with IV heparin, as well as aspirin. Patient's chest x- ray is unremarkable. Patient's labs demonstrate renal insufficiency. Will admit the patient to the hospital for cardiac monitoring, continued evaluation/management and cardiology consultation. Dr. Wood has accepted hospital admission. Undiagnosed new problem with uncertain prognosis? @ -No Drug Therapy requiring intensive monitoring for toxicity (Heparin, Nitro, Insulin, Cardizem)? @ -No Were any procedures done? @ -No Diagnosis/symptom? @ -New onset atrial fibrillation with RVR Acute, or Chronic, or Acute on Chronic? @ -default Uncomplicated (without systemic symptoms) or Complicated (systemic symptoms)? @ -default Side effects of treatment? @ -No Exacerbation, Progression, or Severe Exacerbation? @ -No Poses a threat to life or bodily function? How? (Chest pain, [place], [place], pneumonia, PE, COPD, DKA, ARF, appy, cholecystitis, CVA, Diverticulitis, Homicidal, Suicidal, threat to staff... and all critical care pts) @ -No Diagnosis/symptom? @ -Elevated troponin Acute, or Chronic, or Acute on Chronic? @ -default Uncomplicated (without systemic symptoms) or Complicated (systemic symptoms)? @ -default Side effects of treatment? @ -none Exacerbation, Progression, or Severe Exacerbation] @ -no Poses a threat to life or bodily function? @ -Possible Diagnosis/symptom? @ -Renal insufficiency Acute, or Chronic, or Acute on Chronic? @ -default Uncomplicated (without systemic symptoms) or Complicated (systemic symptoms)? @ -default Side effects of treatment? @ -none Exacerbation, Progression, or Severe Exacerbation] @ -no Poses a threat to life or bodily function? @ -no - Lab Data Result diagrams: 08/18/23 19:16 08/18/23 19:16 Lab Results 08/18/23 08/18/23 08/18/23 Range/Units 19:16 19:16 19:16 WBC 6.8 (3.8-10.6) k/uL RBC 3.81 (3.80-5.40) m/uL Hgb 10.7 L (11.4-16.0) gm/dL Hct 32.5 L (34.0-46.0) % MCV 85.4 (80.0-100.0) fL MCH 28.1 (25.0-35.0) pg MCHC 32.9 (31.0-37.0) g/dL RDW 14.9 (11.5-15.5) % Plt Count 367 (150-450) k/uL MPV 6.9 Neutrophils % 78 % Lymphocytes % 13 % Monocytes % 5 % Eosinophils % 2 % Basophils % 1 % Neutrophils # 5.3 (1.3-7.7) k/uL Lymphocytes # 0.9 L (1.0-4.8) k/uL Monocytes # 0.3 (0-1.0) k/uL Eosinophils # 0.1 (0-0.7) k/uL Basophils # 0.0 (0-0.2) k/uL PT 10.5 (10.0-12.5) sec INR 0.9 (<1.2) APTT 25.1 (22.0-30.0) sec Sodium 140 (137-145) mmol/L Potassium 4.5 (3.5-5.1) mmol/L Chloride 108 H (98-107) mmol/L Carbon Dioxide 21 L (22-30) mmol/L Anion Gap 11 mmol/L BUN 32 H (7-17) mg/dL Creatinine 2.10 H (0.52-1.04) mg/dL Est GFR (CKD-EPI)AfAm 25 (>60 ml/min/1.73 sqM) Est GFR (CKD-EPI)NonAf 22 (>60 ml/min/1.73 sqM) Glucose 201 H (74-99) mg/dL Calcium 9.1 (8.4-10.2) mg/dL Magnesium 2.1 (1.6-2.3) mg/dL Total Bilirubin 0.4 (0.2-1.3) mg/dL AST 21 (14-36) U/L ALT 16 (4-34) U/L Alkaline Phosphatase 89 (38-126) U/L Troponin I (0.000-0.034) ng/mL NT-Pro-B Natriuret Pep 8380 pg/mL Total Protein 7.8 (6.3-8.2) g/dL Albumin 3.8 (3.5-5.0) g/dL TSH 2.510 (0.465-4.680) mIU/L Free T4 1.21 (0.78-2.19) ng/dL 08/18/23 Range/Units 19:16 WBC (3.8-10.6) k/uL RBC (3.80-5.40) m/uL Hgb (11.4-16.0) gm/dL Hct (34.0-46.0) % MCV (80.0-100.0) fL MCH (25.0-35.0) pg MCHC (31.0-37.0) g/dL RDW (11.5-15.5) % Plt Count (150-450) k/uL MPV Neutrophils % % Lymphocytes % % Monocytes % % Eosinophils % % Basophils % % Neutrophils # (1.3-7.7) k/uL Lymphocytes # (1.0-4.8) k/uL Monocytes # (0-1.0) k/uL Eosinophils # (0-0.7) k/uL Basophils # (0-0.2) k/uL PT (10.0-12.5) sec INR (<1.2) APTT (22.0-30.0) sec Sodium (137-145) mmol/L Potassium (3.5-5.1) mmol/L Chloride (98-107) mmol/L Carbon Dioxide (22-30) mmol/L Anion Gap mmol/L BUN (7-17) mg/dL Creatinine (0.52-1.04) mg/dL Est GFR (CKD-EPI)AfAm (>60 ml/min/1.73 sqM) Est GFR (CKD-EPI)NonAf (>60 ml/min/1.73 sqM) Glucose (74-99) mg/dL Calcium (8.4-10.2) mg/dL Magnesium (1.6-2.3) mg/dL Total Bilirubin (0.2-1.3) mg/dL AST (14-36) U/L ALT (4-34) U/L Alkaline Phosphatase (38-126) U/L Troponin I 0.117 H* (0.000-0.034) ng/mL NT-Pro-B Natriuret Pep pg/mL Total Protein (6.3-8.2) g/dL Albumin (3.5-5.0) g/dL TSH (0.465-4.680) mIU/L Free T4 (0.78-2.19) ng/dL - Radiology Data Chest x-ray (interpreted by me): No acute cardiopulmonary disease. Critical Care Time Critical Care Time: Yes Total Critical Care Time: 50 Disposition Clinical Impression: Palpitations, Weakness, Atrial fibrillation with RVR, Elevated troponin, Renal insufficiency Disposition: ADMITTED IP TO THIS [facility] Condition: Stable Is patient prescribed a controlled substance at d/c from ED?: No Referrals: Luis Moe DO [Primary Care Provider] - 1-2 days Time of Disposition: 20:30
[2023-08-18] MEDS ORDERED: DILTIAZEM 5 MG/ML 5 ML VIAL IVP STA (19:10)
[2023-08-18 19:35] LABS: Basophils % (A) 1 %; Eosinophils # (A) 0.1 k/uL (0-0.7); Eosinophils % (A) 2 %; HCT 32.5 % (34.0-46.0); HGB 10.7 gm/dL (11.4-16.0); Lymphocytes # (A) 0.9 k/uL (1.0-4.8); Lymphocytes % (A) 13 %; MCH 28.1 pg (25.0-35.0); MCHC 32.9 g/dL (31.0-37.0); MCV 85.4 fL (80.0-100.0); Mean Platelet Volume 6.9; Monocytes # (A) 0.3 k/uL (0-1.0); Monocytes % (A) 5 %; Neutrophils # (A) 5.3 k/uL (1.3-7.7); Neutrophils % (A) 78 %; Platelet Count 367 k/uL (150-450); RBC 3.81 m/uL (3.80-5.40); RDW 14.9 % (11.5-15.5); WBC 6.8 k/uL (3.8-10.6)
[2023-08-18 19:43] LABS: INR 0.9 (<1.2); Partial Thromboplastin Time 25.1 sec (22.0-30.0); Prothrombin Time 10.5 sec (10.0-12.5)
[2023-08-18 19:46] LABS: ALT 16 U/L (4-34); AST 21 U/L (14-36); African American GFR (CKD) 25 (>60 ml/min/1.73 sqM); Albumin 3.8 g/dL (3.5-5.0); Alkaline Phosphatase 89 U/L (38-126); Anion Gap 11 mmol/L; Blood Urea Nitrogen 32 mg/dL (7-17); Calcium 9.1 mg/dL (8.4-10.2); Carbon Dioxide 21 mmol/L (22-30); Chloride 108 mmol/L (98-107); Glucose 201 mg/dL (74-99); Magnesium 2.1 mg/dL (1.6-2.3); Non-African American GFR(CKD) 22 (>60 ml/min/1.73 sqM); Potassium 4.5 mmol/L (3.5-5.1); Sodium 140 mmol/L (137-145); Total Bilirubin 0.4 mg/dL (0.2-1.3); Total Protein 7.8 g/dL (6.3-8.2)
[2023-08-18 19:54] LABS: NT-Pro-B-Type Natriuretic Pept 8380 pg/mL
[2023-08-18 20:02] LABS: T4, Free (Free Thyroxine) 1.21 ng/dL (0.78-2.19)
[2023-08-18] MEDS ORDERED: HEPARIN SODIUM 1,000 UN/ML (10ML VL) IV ONE (20:18)
[2023-08-18] MEDS ORDERED: ASPIRIN 81 MG PO STA (20:19)
[2023-08-18] MEDS ORDERED: NALOXONE 0.4 MG/ML 1 ML VIAL IV PRN (20:30)
[2023-08-18] MEDS: HEPARIN SOD,PORK IN 0.45% NACL 25,000 UNIT in 0.45% NACL 1 250ML.BAG IV SCH (20:43)
[2023-08-18] MEDS ORDERED: ACETAMINOPHEN TAB 325 MG TAB PO PRN (20:48)
[2023-08-18] MEDS ORDERED: ONDANSETRON 4 MG/2 ML VIAL IVP PRN (20:48)
[2023-08-18] MEDS ORDERED: DEXTROSE 50% SYRINGE 50 ML IVP PRN ×2 (20:50)
[2023-08-18 22:09] LABS: Glucose,Whole Blood 121 mg/dL (70-110)
[2023-08-18] MEDS: INSULIN ASPART (NovoLOG) 100 UNIT/ML VIAL SQ SCH (22:10)
--- NOTE | 2023-08-18 22:10 | XR ---
EXAMINATION TYPE: XR chest 2V DATE OF EXAM: 08/18/2023 7:37 PM CLINICAL INDICATION:Female, 83 years old with history of dysrhythmia; [facility] COMPARISON: 06/28/2022 TECHNIQUE: XR chest 2V Frontal and lateral views of the chest. FINDINGS: Lines/Tubes: EKG leads overlie the chest. No indwelling lines are seen. Lungs/Pleura: There is no evidence of pleural effusion, focal consolidation, or pneumothorax. Chroni c parenchymal changes including mild interstitial coarsening. Pulmonary vascularity: Unremarkable. Heart/mediastinum: Mild cardiomegaly. Partially calcified aorta. Musculoskeletal: No acute osseous pathology. Degenerative changes of the spine and shoulders. Remote left rib fracture deformities. Partially seen chronic deformity of the proximal left humerus. Other findings: None IMPRESSION: No acute findings, or significant interval change. Persistent mild cardiomegaly without evidence of C HF.
[2023-08-18] MEDS: SODIUM CHLORIDE 0.9% 1,000 ML IV SCH (22:12)
[2023-08-18] MEDS: METOPROLOL SUCCINATE (ER) 25 MG TAB.ER.24H PO SCH (22:12)
[2023-08-19] MEDS: HEPARIN SODIUM 1,000 UN/ML (10ML VL) IV PRN ×2 (03:45→12:31)
[2023-08-19 07:30] LABS: Basophils % (A) 1 %; Eosinophils # (A) 0.2 k/uL (0-0.7); Eosinophils % (A) 5 %; HCT 28.8 % (34.0-46.0); HGB 9.5 gm/dL (11.4-16.0); Lymphocytes % (A) 24 %; MCH 28.4 pg (25.0-35.0); MCHC 33.1 g/dL (31.0-37.0); MCV 85.8 fL (80.0-100.0); Mean Platelet Volume 7.3; Monocytes # (A) 0.3 k/uL (0-1.0); Monocytes % (A) 6 %; Neutrophils # (A) 2.6 k/uL (1.3-7.7); Neutrophils % (A) 62 %; Platelet Count 265 k/uL (150-450); RBC 3.35 m/uL (3.80-5.40); RDW 15.1 % (11.5-15.5); WBC 4.2 k/uL (3.8-10.6)
[2023-08-19 07:42] LABS: Glucose,Whole Blood 162 mg/dL (70-110)
[2023-08-19] MEDS: INSULIN ASPART (NovoLOG) 100 UNIT/ML VIAL SQ SCH ×4 (07:48→21:47)
[2023-08-19] MEDS: METOPROLOL SUCCINATE (ER) 25 MG TAB.ER.24H PO SCH (07:52)
[2023-08-19 08:01] LABS: ALT 14 U/L (4-34); AST 19 U/L (14-36); African American GFR (CKD) 29 (>60 ml/min/1.73 sqM); Albumin 2.9 g/dL (3.5-5.0); Alkaline Phosphatase 77 U/L (38-126); Anion Gap 9 mmol/L; Blood Urea Nitrogen 35 mg/dL (7-17); Calcium 8.4 mg/dL (8.4-10.2); Carbon Dioxide 19 mmol/L (22-30); Chloride 112 mmol/L (98-107); Glucose 155 mg/dL (74-99); Non-African American GFR(CKD) 25 (>60 ml/min/1.73 sqM); Potassium 4.2 mmol/L (3.5-5.1); Sodium 140 mmol/L (137-145); Total Bilirubin 0.3 mg/dL (0.2-1.3); Total Protein 6.4 g/dL (6.3-8.2)
[2023-08-19 08:02] LABS: Prothrombin Time 10.8 sec (10.0-12.5)
[2023-08-19] MEDS: DILTIAZEM 125 MG in SODIUM CHLORIDE 0.9% 100 ML IV SCH (08:38)
[2023-08-19] MEDS: LEVOTHYROXINE 25 MCG TAB PO SCH (09:41)
[2023-08-19 11:48] LABS: Glucose,Whole Blood 210 mg/dL (70-110)
--- NOTE | 2023-08-19 12:22 | P.HPIM ---
History of Present Illness H&P Date: 08/19/23 Chief Complaint: Shortness of breath, palpitation * 83-year-old patient with past medical history significant for diabetes mellitus type 2, hypertension, hypothyroid, chronic lower extremity edema, venous insufficiency present to the emergency department with complains of fat igue, weakness and shortness of breath * Patient noted that she had elevated heart rate and blood pressure prior to presentation. Patient also complained of palpitations, patient denied any recent sick contacts or fever, chills, chest pain, cough, syncope loss of consciousness of abdominal pain * Workup initiated in ER included an EKG which showed heart rate of 137 with concern for atrial flutter and rapid ventricular response * Blood work obtained at the time of presentation included WBC 6.8 hemoglobin 10.7 platelet count of 367, INR of 0.9 * Serum chemistry sodium 140 potassium 4.5, next a 21 BUN 32 creatinine 2.1, blood glucose 201 * Serum troponin obtained was 0.136, * N-terminal proBNP 8380 * TSH 2.5, free T4 1 0.21 * Patient was given a dose of IV Cardizem push and started on oral metoprolol, patient was also started on heparin drip * While in ER patient had persistent tachycardia hence cards and drip initiated by cardiology who has also been consulted REVIEW OF SYSTEMS: Fatigue, shortness of breath, palpitations CONSTITUTIONAL: Fatigue, shortness of breath, palpitations HEENT: No recent visual problems or hearing problems. Denied any sore throat. CARDIOVASCULAR: Fatigue, shortness of breath, palpitations PULMONARY: No-, no cough, no hemoptysis. GASTROINTESTINAL: No diarrhea, no nausea, no vomiting, no abdominal pain. NEUROLOGICAL: No headaches, no weakness, no numbness. HEMATOLOGICAL: Denies any bleeding or petechiae. GENITOURINARY: Denies any burning micturition, frequency, or urgency. MUSCULOSKELETAL/RHEUMATOLOGICAL: Denies any joint pain, swelling, or any muscle pain. ENDOCRINE: Denies any polyuria or polydipsia. PHYSICAL EXAMINATION: GENERAL: The patient is alert and oriented x3, not in any acute distress. Well developed, well nourished. Nasal cannula in place, ill appearance HEENT: Pupils are round and equally reacting to light. EOMI. CARDIOVASCULAR: S1 and S2 present. No murmurs, irregular heart rate, tachycardia noted PULMONARY: Chest is clear to auscultation, no wheezing or crackles. ABDOMEN: Soft, nontender, nondistended, normoactive bowel sounds. No palpable organomegaly. MUSCULOSKELETAL: No joint swelling or deformity. EXTREMITIES: No cyanosis, clubbing, or pedal edema. NEUROLOGICAL: Gross neurological examination did not reveal any focal deficits. SKIN: No rashes. Past Medical History Past Medical History: Diabetes Mellitus, Hyperlipidemia, Hypertension, Osteoarthritis (OA) Additional Past Medical History / Comment(s): uterine cance History of Any Multi-Drug Resistant Organisms: None Reported Past Surgical History: No Surgical Hx Reported Additional Past Surgical History / Comment(s): cataract & carpal-tunnel bilat. Past Anesthesia/Blood Transfusion Reactions: No Reported Reaction Past Psychological History: No Psychological Hx Reported Smoking Status: Never smoker Past Alcohol Use History: None Reported Past Drug Use History: None Reported - Past Family History Mother Family Medical History: Coronary Artery Disease (CAD), Diabetes Mellitus, Hypertension, Mitral Valve Prolapse (MVP) Father Family Medical History: Hypertension Additional Family Medical History / Comment(s): father hip surgery Medications and Allergies Home Medications Medication Instructions Recorded Confirmed Type Levothyroxine Sodium 25 mcg PO DAILY 06/28/22 08/18/23 History Valsartan 320 mg PO DAILY 06/28/22 08/18/23 History amLODIPine [Norvasc] 5 mg PO DAILY #90 tab 06/30/22 08/18/23 Rx Psyllium Husk [Fiber Capsule] 3.2 gm PO BID 08/18/23 08/18/23 History Semaglutide [Rybelsus] 7 mg PO DAILY 08/18/23 08/18/23 History Allergies Allergy/AdvReac Type Severity Reaction Status Date / Time bacitracin Allergy Rash/Hives Verified 08/18/23 21:08 [From Neosporin ([id number])] ibuprofen Allergy Anaphylaxis Verified 08/18/23 21:08 & Rash all over neomycin Allergy Rash/Hives Verified 08/18/23 21:08 [From Neosporin ([id number])] polymyxin B Allergy Rash/Hives Verified 08/18/23 21:08 [From Neosporin ([id number])] Physical Exam Vitals: Vital Signs Temp Pulse Resp BP Pulse Ox 08/19/23 07:40 122 H 18 116/74 97 08/18/23 17:58 98 F 112 H 22 142/70 97 Intake and Output 08/18/23 08/19/23 08/19/23 22:59 06:59 14:59 Intake Total 50.415 Balance 50.415 Intake: Intake, IV Titration 50.415 Amount Heparin Sod,Pork in 0.45% 50.415 NaCl 25,000 unit In 0.45 % NaCl 1 250ml.bag @ 12 UNITS/KG/HR 7.185 mls/hr IV .Q24H [facility] Rx#: [id number] Other: Weight 59.874 kg Results CBC & Chem 7: 08/19/23 07:06 08/19/23 07:06 Labs: Abnormal Lab Results - Last 24 Hours (Table) 08/18/23 08/18/23 08/18/23 Range/Units 19:16 19:16 19:16 RBC (3.80-5.40) m/uL Hgb 10.7 L (11.4-16.0) gm/dL Hct 32.5 L (34.0-46.0) % Lymphocytes # 0.9 L (1.0-4.8) k/uL APTT (22.0-30.0) sec Chloride 108 H (98-107) mmol/L Carbon Dioxide 21 L (22-30) mmol/L BUN 32 H (7-17) mg/dL Creatinine 2.10 H (0.52-1.04) mg/dL Glucose 201 H (74-99) mg/dL POC Glucose (mg/dL) (70-110) mg/dL Troponin I 0.117 H* (0.000-0.034) ng/mL Albumin (3.5-5.0) g/dL 08/18/23 08/18/23 08/19/23 Range/Units 21:10 22:06 02:05 RBC (3.80-5.40) m/uL Hgb (11.4-16.0) gm/dL Hct (34.0-46.0) % Lymphocytes # (1.0-4.8) k/uL APTT 36.9 H (22.0-30.0) sec Chloride (98-107) mmol/L Carbon Dioxide (22-30) mmol/L BUN (7-17) mg/dL Creatinine (0.52-1.04) mg/dL Glucose (74-99) mg/dL POC Glucose (mg/dL) 121 H (70-110) mg/dL Troponin I 0.136 H* (0.000-0.034) ng/mL Albumin (3.5-5.0) g/dL 08/19/23 08/19/23 08/19/23 Range/Units 02:05 07:06 07:06 RBC 3.35 L (3.80-5.40) m/uL Hgb 9.5 L (11.4-16.0) gm/dL Hct 28.8 L (34.0-46.0) % Lymphocytes # (1.0-4.8) k/uL APTT (22.0-30.0) sec Chloride 112 H (98-107) mmol/L Carbon Dioxide 19 L (22-30) mmol/L BUN 35 H (7-17) mg/dL Creatinine 1.84 H (0.52-1.04) mg/dL Glucose 155 H (74-99) mg/dL POC Glucose (mg/dL) (70-110) mg/dL Troponin I 0.252 H* (0.000-0.034) ng/mL Albumin 2.9 L (3.5-5.0) g/dL 08/19/23 Range/Units 07:40 RBC (3.80-5.40) m/uL Hgb (11.4-16.0) gm/dL Hct (34.0-46.0) % Lymphocytes # (1.0-4.8) k/uL APTT (22.0-30.0) sec Chloride (98-107) mmol/L Carbon Dioxide (22-30) mmol/L BUN (7-17) mg/dL Creatinine (0.52-1.04) mg/dL Glucose (74-99) mg/dL POC Glucose (mg/dL) 162 H (70-110) mg/dL Troponin I (0.000-0.034) ng/mL Albumin (3.5-5.0) g/dL Assessment and Plan Assessment: Assessment and plan * New onset atrial fibrillation/atrial flutter with rapid monitor response * Non-ST elevated RI * History of hypertension * Hypothyroid * In regards to new onset tachycardia,Atrial fibrillation, patient started on IV heparin, continue IV Cardizem drip continue monitor tech, optimize electrolytes potassium and magnesium * In regards to non-ST elevated RI, cardiology consulted continue IV heparin, patient received aspirin, metoprolol ordered, sublingual nitroglycerin for chest pain, echocardiogram ordered * In regards to hypertension continue patient on metoprolol, Norvasc on hold while on IV Cardizem drip, valsartan on hold to avoid hypertension * In regards to hypothyroid continue Synthyroid * CODE STATUS is full code Time with Patient: Greater than 30
--- NOTE | 2023-08-19 12:57 | P.CRDCN ---
History of Present Illness Consult date: 08/19/23 Chief complaint: Palpitation and shortness of breath History of present illness: The patient is a pleasant 83-year-old female patient with diabetes and hypertension and dyslipidemia and lower extremity is peripheral arterial disease presented to the emergency room complaining of claudication in heart racing associated with shortness of breath. The symptoms started about 24 hours before she presented. No pain in the chest and no dizziness or lightheadedness and no feeling of heart racing or fluttering and no presyncope or syncope. The patient underwent an EKG and that revealed atrial fibrillation with RVR that is new to her. She never diagnosed was in nature fibrillation before. Further investigation including troponin came in to be abnormal. She does have multiple risk factors for CAD but this is acute on chronic renal failure and she is also slightly anemic. The chest x-ray did not show any acute abnormalities. Patient was started on Cardizem IV and subsequently she was started on heparin IV as well. She was on beta nereyda as an outpatient. Currently she is in atrial fibrillation with overall controlled heart rate. We are going to wean her from the Cardizem IV and his dose of beta nereyda. She is to be on oral a nticoagulation as an outpatient. The mildly abnormal troponin could be related to the atrial fibrillation with RVR in association with the acute renal failure but also severe underlying coronary artery disease to be ruled out given her multiple risk factors and she might have an acute coronary event related to type I myocardial infarction. The examination is remarkable for with systolic murmur right upper sternal border and apical area and clear breathing sounds bilaterally and mild bilateral lower extremity edema worse on the left than the right. The patient was seen by our service in 2021 for hypertension emergency and underwent an echo which revealed normal right ventricular dimension and systolic function was mild to moderate valvular abnormalities Assessment Atrial fibrillation with RVR and this is a new diagnosis the patient Evidence of myocardial injury Multiple comorbid conditions including diabetes and hypertension and dyslipidemia and PAD Acute on chronic renal failure Anemia Plan Continue the current medical treatment including heparin Wean the patient from Cardizem and is a dose of beta nereyda Follow-up with the renal function Consider ruling out severe CAD Consider starting the patient on oral anticoagulation Obtain an echocardiogram for risk stratification Follow-up with the patient Past Medical History Past Medical History: Diabetes Mellitus, Hyperlipidemia, Hypertension, Osteoarthritis (OA) Additional Past Medical History / Comment(s): uterine cance History of Any Multi-Drug Resistant Organisms: None Reported Past Surgical History: No Surgical Hx Reported Additional Past Surgical History / Comment(s): cataract & carpal-tunnel bilat. Past Anesthesia/Blood Transfusion Reactions: No Reported Reaction Past Psychological History: No Psychological Hx Reported Smoking Status: Never smoker Past Alcohol Use History: None Reported Past Drug Use History: None Reported - Past Family History Mother Family Medical History: Coronary Artery Disease (CAD), Diabetes Mellitus, Hypertension, Mitral Valve Prolapse (MVP) Father Family Medical History: Hypertension Additional Family Medical History / Comment(s): father hip surgery Medications and Allergies Home Medications Medication Instructions Recorded Confirmed Type Levothyroxine Sodium 25 mcg PO DAILY 06/28/22 08/18/23 History Valsartan 320 mg PO DAILY 06/28/22 08/18/23 History amLODIPine [Norvasc] 5 mg PO DAILY #90 tab 06/30/22 08/18/23 Rx Psyllium Husk [Fiber Capsule] 3.2 gm PO BID 08/18/23 08/18/23 History Semaglutide [Rybelsus] 7 mg PO DAILY 08/18/23 08/18/23 History Allergies Allergy/AdvReac Type Severity Reaction Status Date / Time bacitracin Allergy Rash/Hives Verified 08/18/23 21:08 [From Neosporin ([id number])] ibuprofen Allergy Anaphylaxis Verified 08/18/23 21:08 & Rash all over neomycin Allergy Rash/Hives Verified 08/18/23 21:08 [From Neosporin ([id number])] polymyxin B Allergy Rash/Hives Verified 08/18/23 21:08 [From Neosporin ([id number])] Physical Exam Vitals: Vital Signs Temp Pulse Resp BP Pulse Ox 08/19/23 12:30 83 18 122/89 98 08/19/23 10:00 86 18 112/48 97 08/19/23 07:40 122 H 18 116/74 97 08/18/23 17:58 98 F 112 H 22 142/70 97 Intake and Output 08/18/23 08/19/23 08/19/23 22:59 06:59 14:59 Intake Total 50.415 80.828 Balance 50.415 80.828 Intake: Intake, IV Titration 50.415 80.828 Amount Heparin Sod,Pork in 0.45% 50.415 80.828 NaCl 25,000 unit In 0.45 % NaCl 1 250ml.bag @ 12 UNITS/KG/HR 7.185 mls/hr IV .Q24H [facility] Rx#: [id number] Other: Weight 59.874 kg Results 08/19/23 07:06 08/19/23 07:06 Cardiac Enzymes 08/18/23 08/18/23 08/18/23 Range/Units 19:16 19:16 21:10 AST 21 (14-36) U/L Troponin I 0.117 H* 0.136 H* (0.000-0.034) ng/mL 08/19/23 08/19/23 Range/Units 02:05 07:06 AST 19 (14-36) U/L Troponin I 0.252 H* (0.000-0.034) ng/mL Coagulation 08/18/23 08/19/23 08/19/23 Range/Units 19:16 02:05 07:06 PT 10.5 10.8 (10.0-12.5) sec APTT 25.1 36.9 H (22.0-30.0) sec 08/19/23 Range/Units 10:52 PT (10.0-12.5) sec APTT 41.0 H (22.0-30.0) sec CBC 08/18/23 08/19/23 Range/Units 19:16 07:06 WBC 6.8 4.2 (3.8-10.6) k/uL RBC 3.81 3.35 L (3.80-5.40) m/uL Hgb 10.7 L 9.5 L (11.4-16.0) gm/dL Hct 32.5 L 28.8 L (34.0-46.0) % Plt Count 367 265 (150-450) k/uL Comprehensive Metabolic Panel 08/18/23 08/19/23 Range/Units 19:16 07:06 Sodium 140 140 (137-145) mmol/L Potassium 4.5 4.2 (3.5-5.1) mmol/L Chloride 108 H 112 H (98-107) mmol/L Carbon Dioxide 21 L 19 L (22-30) mmol/L BUN 32 H 35 H (7-17) mg/dL Creatinine 2.10 H 1.84 H (0.52-1.04) mg/dL Glucose 201 H 155 H (74-99) mg/dL Calcium 9.1 8.4 (8.4-10.2) mg/dL AST 21 19 (14-36) U/L ALT 16 14 (4-34) U/L Alkaline Phosphatase 89 77 (38-126) U/L Total Protein 7.8 6.4 (6.3-8.2) g/dL Albumin 3.8 2.9 L (3.5-5.0) g/dL Current Medications Generic Name Dose Route Start Last Admin Trade Name Freq PRN Reason Stop Dose Admin Acetaminophen 650 mg 08/18/23 20:48 Acetaminophen Tab 325 Mg Tab PO Q6HR PRN Mild Pain or Fever > 100.5 Aspirin 81 mg 08/20/23 09:00 Aspirin 81 Mg PO DAILY [facility] Dextrose/Water 25 ml 08/18/23 20:50 Dextrose 50% Syringe 50 Ml IVP PER PROTOCOL PRN Hypoglycemia Protocol Dextrose/Water 50 ml 08/18/23 20:50 Dextrose 50% Syringe 50 Ml IVP PER PROTOCOL PRN Hypoglycemia Protocol Heparin Sodium (Porcine) 0 unit 08/18/23 20:18 08/19/23 12:31 Heparin Sodium 1,000 Un/Ml (10ml Vl) IV 1,475 unit PER PROTOCOL PRN Administration Low PTT Protocol Heparin Sodium/Sodium Chloride 250 mls @ 7.185 mls/hr 08/18/23 20:30 08/19/23 12:32 25,000 unit/ Sodium Chloride IV 17.34 units/kg/hr .Q24H [facility] 10.382 mls/hr Titration Protocol 12 UNITS/KG/HR Sodium Chloride 1,000 mls @ 20 mls/hr 08/18/23 21:00 08/18/23 22:12 Saline 0.9% IV 20 mls/hr .Q24H [facility] Administration Diltiazem HCl 125 mg/ Sodium 125 mls @ 5 mls/hr 08/19/23 08:15 08/19/23 08:38 Chloride IV 5 mg/hr .Q24H [facility] 5 mls/hr Administration 5 MG/HR Insulin Aspart 0 unit 08/18/23 21:00 08/19/23 11:55 Insulin Aspart (Novolog) 100 Unit/Ml Vial SQ 2 unit ACHS [facility] Administration Protocol Levothyroxine Sodium 25 mcg 08/19/23 09:45 08/19/23 09:41 Levothyroxine 25 Mcg Tab PO 25 mcg 0630 [facility] Administration Metoprolol Succinate 50 mg 08/19/23 21:00 Metoprolol Succinate (Er) 50 Mg Tab.Er.24h PO BID [facility] Naloxone HCl 0.2 mg 08/18/23 20:30 Naloxone 0.4 Mg/Ml 1 Ml Vial IV Q2M PRN Opioid Reversal Ondansetron HCl 4 mg 08/18/23 20:48 Ondansetron 4 Mg/2 Ml Vial IVP Q8HR PRN Nausea And Vomiting Intake and Output 08/18/23 08/19/23 08/19/23 22:59 06:59 14:59 Intake Total 50.415 80.828 Balance 50.415 80.828 Intake: Intake, IV Titration 50.415 80.828 Amount Heparin Sod,Pork in 0.45% 50.415 80.828 NaCl 25,000 unit In 0.45 % NaCl 1 250ml.bag @ 12 UNITS/KG/HR 7.185 mls/hr IV .Q24H [facility] Rx#: [id number] Other: Weight 59.874 kg 08/19/23 07:06 08/19/23 07:06
[2023-08-19 17:12] LABS: Glucose,Whole Blood 115 mg/dL (70-110)
[2023-08-19] MEDS: HEPARIN SOD,PORK IN 0.45% NACL 25,000 UNIT in 0.45% NACL 1 250ML.BAG IV SCH ×2 (20:07→22:45)
[2023-08-19] MEDS: SODIUM CHLORIDE 0.9% 1,000 ML IV SCH (20:07)
[2023-08-19 21:48] LABS: Glucose,Whole Blood 150 mg/dL (70-110)
[2023-08-19] MEDS: METOPROLOL SUCCINATE (ER) 50 MG TAB.ER.24H PO SCH (21:48)
[2023-08-20 06:05] LABS: Glucose,Whole Blood 131 mg/dL (70-110)
[2023-08-20] MEDS: INSULIN ASPART (NovoLOG) 100 UNIT/ML VIAL SQ SCH ×4 (06:13→21:47)
[2023-08-20] MEDS: DILTIAZEM 125 MG in SODIUM CHLORIDE 0.9% 100 ML IV SCH (06:36)
[2023-08-20] MEDS: LEVOTHYROXINE 25 MCG TAB PO SCH (06:36)
[2023-08-20 09:23] LABS: HCT 30.2 % (34.0-46.0); HGB 9.4 gm/dL (11.4-16.0); Hypochromasia Slight; MCH 27.2 pg (25.0-35.0); MCHC 31.1 g/dL (31.0-37.0); MCV 87.3 fL (80.0-100.0); Mean Platelet Volume 7.4; Platelet Count 248 k/uL (150-450); RBC 3.45 m/uL (3.80-5.40); RDW 15.1 % (11.5-15.5); WBC 5.1 k/uL (3.8-10.6)
[2023-08-20 10:20] LABS: African American GFR (CKD) 32 (>60 ml/min/1.73 sqM); Anion Gap 10 mmol/L; Blood Urea Nitrogen 35 mg/dL (7-17); Calcium 8.7 mg/dL (8.4-10.2); Carbon Dioxide 18 mmol/L (22-30); Chloride 111 mmol/L (98-107); Glucose 119 mg/dL (74-99); Magnesium 1.8 mg/dL (1.6-2.3); Non-African American GFR(CKD) 28 (>60 ml/min/1.73 sqM); Sodium 139 mmol/L (137-145)
--- NOTE | 2023-08-20 10:56 | P.PN ---
Subjective Progress Note Date: 08/20/23 Principal diagnosis: Atrial fibrillation The patient is a pleasant 83-year-old female patient with diabetes and hypertension and dyslipidemia and lower extremity is peripheral arterial disease presented to the emergency room complaining of claudication in heart racing associated with shortness of breath. The symptoms started about 24 hours before she presented. No pain in the chest and no dizziness or lightheadedness and no feeling of heart racing or fluttering and no presyncope or syncope. The patient underwent an EKG and that revealed atrial fibrillation with RVR that is new to her. She never diagnosed was in nature fibrillation before. Further investigation including troponin came in to be abnormal. She does have multiple risk factors for CAD but this is acute on chronic renal failure and she is also slightly anemic. The chest x-ray did not show any acute abnormalities. Patient was started on Cardizem IV and subsequently she was started on heparin IV as well. She was on beta nereyda as an outpatient. Currently she is in atrial fibrillation with overall controlled heart rate. We are going to wean her from the Cardizem IV and his dose of beta nereyda. She is to be on oral anticoagulation as an outpatient. The mildly abnormal troponin could be related to the atrial fibrillation with RVR in association with the acute renal failure but also severe underlying coronary artery disease to be ruled out given her multiple risk factors and she might have an acute coronary event related to type I myocardial infarction. The examination is remarkable for with systolic murmur right upper sternal border and apical area and clear breathing sounds bilat erally and mild bilateral lower extremity edema worse on the left than the right. The patient was seen by our service in 2021 for hypertension emergency and underwent an echo which revealed normal right ventricular dimension and systolic function was mild to moderate valvular abnormalities 08/20/2023 The patient was seen in this she is feeling somewhat better. No chest and no shortness of breath. She is in atrial fibrillation with controlled heart rate going to wean her from the Cardizem IV and increase the dose of metoprolol. The echo was ordered we'll follow-up on that. The examination is remarkable for irregular rhythm with clear breathing sounds bilaterally. Assessment Atrial fibrillation with RVR and this is a new diagnosis the patient Evidence of myocardial injury Multiple comorbid conditions including diabetes and hypertension and dyslipidemia and PAD Acute on chronic renal failure Anemia Plan Continue the current medical treatment including heparin Wean the patient from Cardizem and increase the dose of beta nereyda Follow-up with the echo Objective - Vital Signs Vital signs: Vital Signs Temp 98.2 F 08/20/23 09:32 Pulse 92 08/20/23 09:32 Resp 16 08/20/23 09:32 BP 125/70 08/20/23 09:32 Pulse Ox 100 08/20/23 09:32 FiO2 Intake & Output 08/19/23 08/20/23 08/20/23 18:59 06:59 18:59 Intake Total 80.828 215.902 Output Total 200 550 Balance 80.828 15.902 -550 Weight 59.874 kg Intake: Intake, IV Titration 80.828 215.902 Amount Diltiazem 125 mg In 109.833 Sodium Chloride 0.9% 100 ml @ 5 MG/HR 5 mls/hr IV .Q24H [facility] Rx#:[id number] Heparin Sod,Pork in 0.45% 80.828 106.069 NaCl 25,000 unit In 0.45 % NaCl 1 250ml.bag @ 12 UNITS/KG/HR 7.185 mls/hr IV .Q24H [facility] Rx#: [id number] Output: Urine 200 550 Other: Voiding Method Incontinent External Catheter # Voids 2 # Bowel Movements 1 - Labs CBC & Chem 7: 08/20/23 08:54 08/20/23 08:54 Labs: Abnormal Lab Results - Last 24 Hours (Table) 08/19/23 08/19/23 08/19/23 Range/Units 10:52 11:46 13:33 RBC (3.80-5.40) m/uL Hgb (11.4-16.0) gm/dL Hct (34.0-46.0) % APTT 41.0 H (22.0-30.0) sec Chloride (98-107) mmol/L Carbon Dioxide (22-30) mmol/L BUN (7-17) mg/dL Creatinine (0.52-1.04) mg/dL Glucose (74-99) mg/dL POC Glucose (mg/dL) 210 H (70-110) mg/dL Troponin I 0.212 H* (0.000-0.034) ng/mL 08/19/23 08/19/23 08/19/23 Range/Units 17:10 18:16 18:17 RBC (3.80-5.40) m/uL Hgb (11.4-16.0) gm/dL Hct (34.0-46.0) % APTT 54.2 H (22.0-30.0) sec Chloride (98-107) mmol/L Carbon Dioxide (22-30) mmol/L BUN (7-17) mg/dL Creatinine (0.52-1.04) mg/dL Glucose (74-99) mg/dL POC Glucose (mg/dL) 115 H (70-110) mg/dL Troponin I 0.231 H* (0.000-0.034) ng/mL 08/19/23 08/20/23 08/20/23 Range/Units 21:47 06:02 08:54 RBC 3.45 L (3.80-5.40) m/uL Hgb 9.4 L (11.4-16.0) gm/dL Hct 30.2 L (34.0-46.0) % APTT (22.0-30.0) sec Chloride (98-107) mmol/L Carbon Dioxide (22-30) mmol/L BUN (7-17) mg/dL Creatinine (0.52-1.04) mg/dL Glucose (74-99) mg/dL POC Glucose (mg/dL) 150 H 131 H (70-110) mg/dL Troponin I (0.000-0.034) ng/mL 08/20/23 08/20/23 Range/Units 08:54 08:54 RBC (3.80-5.40) m/uL Hgb (11.4-16.0) gm/dL Hct (34.0-46.0) % APTT 48.1 H (22.0-30.0) sec Chloride 111 H (98-107) mmol/L Carbon Dioxide 18 L (22-30) mmol/L BUN 35 H (7-17) mg/dL Creatinine 1.70 H (0.52-1.04) mg/dL Glucose 119 H (74-99) mg/dL POC Glucose (mg/dL) (70-110) mg/dL Troponin I (0.000-0.034) ng/mL
[2023-08-20] MEDS: METOPROLOL SUCCINATE (ER) 50 MG TAB.ER.24H PO SCH ×3 (11:11→21:38)
[2023-08-20] MEDS: ASPIRIN 81 MG PO SCH (11:11)
[2023-08-20 11:56] LABS: Glucose,Whole Blood 272 mg/dL (70-110)
[2023-08-20] MEDS ORDERED: CALAMINE/ZINC OXIDE LOTION 177 ML BTL TOPICAL PRN (12:52)
--- NOTE | 2023-08-20 12:58 | P.PN ---
Subjective Progress Note Date: 08/20/23 * 83-year-old patient with past medical history significant for diabetes mellitus type 2, hypertension, hypothyroid, chronic lower extremity edema, venous insufficiency present to the emergency department with complains of fatigue, weakness and shortness of breath * Patient noted that she had elevated heart rate and blood pressure prior to presentation. Patient also complained of palpitations, patient denied any recent sick contacts or fever, chills, chest pain, cough, syncope loss of consciousness of abdominal pain * Workup initiated in ER included an EKG which showed heart rate of 137 with concern for atrial flutter and rapid ventricular response * Blood work obtained at the time of presentation included WBC 6.8 hemoglobin 10.7 platelet count of 367, INR of 0.9 * Serum chemistry sodium 140 potassium 4.5, next a 21 BUN 32 creatinine 2.1, blood glucose 201 * Serum troponin obtained was 0.136, * N-terminal proBNP 8380 * TSH 2.5, free T4 1 0.21 * Patient was given a dose of IV Cardizem push and started on oral metoprolol, patient was also started on heparin drip * While in ER patient had persistent tachycardia hence cards and drip initiated by cardiology who has also been consulted * 08/20/2023: Patient seen and evaluated and bedside, patient transferred to room 385. Seen by cardiology does have paroxysmal tachycardia more continue patient on metoprolol 3 times a day 50 mg, patient does have skin lesions and concern for bug bite/scabies consulted infectious disease started patient on calamine lotion REVIEW OF SYSTEMS: Fatigue, shortness of breath, palpitations improved CONSTITUTIONAL: Fatigue, shortness of breath, palpitations HEENT: No recent visual problems or hearing problems. Denied any sore throat. CARDIOVASCULAR: Fatigue, shortness of breath, palpitations PULMONARY: No-, no cough, no hemoptysis. GASTROINTESTINAL: No diarrhea, no nausea, no vomiting, no abdominal pain. NEUROLOGICAL: No headaches, no weakness, no numbness. HEMATOLOGICAL: Denies any bleeding or petechiae. GENITOURINARY: Denies any burning micturition, frequency, or urgency. MUSCULOSKELETAL/RHEUMATOLOGICAL: Denies any joint pain, swelling, or any muscle pain. ENDOCRINE: Denies any polyuria or polydipsia. Objective - Vital Signs Vital signs: Vital Signs Temp 98.2 F 08/20/23 09:32 Pulse 92 08/20/23 09:32 Resp 16 08/20/23 09:32 BP 125/70 08/20/23 09:32 Pulse Ox 100 08/20/23 09:32 FiO2 Intake & Output 08/19/23 08/20/23 08/20/23 18:59 06:59 18:59 Intake Total 80.828 215.902 120 Output Total 200 550 Balance 80.828 15.902 -430 Weight 59.874 kg Intake: Intake, IV Titration 80.828 215.902 Amount Diltiazem 125 mg In 109.833 Sodium Chloride 0.9% 100 ml @ 5 MG/HR 5 mls/hr IV .Q24H [facility] Rx#:[id number] Heparin Sod,Pork in 0.45% 80.828 106.069 NaCl 25,000 unit In 0.45 % NaCl 1 250ml.bag @ 12 UNITS/KG/HR 7.185 mls/hr IV .Q24H [facility] Rx#: [id number] Oral 120 Output: Urine 200 550 Other: Voiding Method Incontinent External Catheter # Voids 2 # Bowel Movements 1 - Exam PHYSICAL EXAMINATION: GENERAL: The patient is alert and oriented x3, not in any acute distress. Well developed, well nourished. Nasal cannula in place, ill appearance HEENT: Pupils are round and equally reacting to light. EOMI. CARDIOVASCULAR: S1 and S2 present. No murmurs, irregular heart rate, tachycardia noted PULMONARY: Chest is clear to auscultation, no wheezing or crackles. ABDOMEN: Soft, nontender, nondistended, normoactive bowel sounds. No palpable organomegaly. MUSCULOSKELETAL: No joint swelling or deformity. EXTREMITIES: No cyanosis, clubbing, or pedal edema. NEUROLOGICAL: Gross neurological examination did not reveal any focal deficits. SKIN: Dry skin,, skin lesions, itching - Labs CBC & Chem 7: 08/20/23 08:54 08/20/23 08:54 Labs: Abnormal Lab Results - Last 24 Hours (Table) 08/19/23 08/19/23 08/19/23 Range/Units 13:33 17:10 18:16 RBC (3.80-5.40) m/uL Hgb (11.4-16.0) gm/dL Hct (34.0-46.0) % APTT (22.0-30.0) sec Chloride (98-107) mmol/L Carbon Dioxide (22-30) mmol/L BUN (7-17) mg/dL Creatinine (0.52-1.04) mg/dL Glucose (74-99) mg/dL POC Glucose (mg/dL) 115 H (70-110) mg/dL Troponin I 0.212 H* 0.231 H* (0.000-0.034) ng/mL 08/19/23 08/19/23 08/20/23 Range/Units 18:17 21:47 06:02 RBC (3.80-5.40) m/uL Hgb (11.4-16.0) gm/dL Hct (34.0-46.0) % APTT 54.2 H (22.0-30.0) sec Chloride (98-107) mmol/L Carbon Dioxide (22-30) mmol/L BUN (7-17) mg/dL Creatinine (0.52-1.04) mg/dL Glucose (74-99) mg/dL POC Glucose (mg/dL) 150 H 131 H (70-110) mg/dL Troponin I (0.000-0.034) ng/mL 08/20/23 08/20/23 08/20/23 Range/Units 08:54 08:54 08:54 RBC 3.45 L (3.80-5.40) m/uL Hgb 9.4 L (11.4-16.0) gm/dL Hct 30.2 L (34.0-46.0) % APTT 48.1 H (22.0-30.0) sec Chloride 111 H (98-107) mmol/L Carbon Dioxide 18 L (22-30) mmol/L BUN 35 H (7-17) mg/dL Creatinine 1.70 H (0.52-1.04) mg/dL Glucose 119 H (74-99) mg/dL POC Glucose (mg/dL) (70-110) mg/dL Troponin I (0.000-0.034) ng/mL 08/20/23 Range/Units 11:51 RBC (3.80-5.40) m/uL Hgb (11.4-16.0) gm/dL Hct (34.0-46.0) % APTT (22.0-30.0) sec Chloride (98-107) mmol/L Carbon Dioxide (22-30) mmol/L BUN (7-17) mg/dL Creatinine (0.52-1.04) mg/dL Glucose (74-99) mg/dL POC Glucose (mg/dL) 272 H (70-110) mg/dL Troponin I (0.000-0.034) ng/mL Assessment and Plan Assessment: Assessment and plan * New onset atrial fibrillation/atrial flutter with rapid monitor response * Non-ST elevated IN * History of hypertension * Hypothyroid * Skin lesion/bug bite * In regards to new onset tachycardia,Atrial fibrillation, patient started on IV heparin, continue IV Cardizem drip 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[employer], optimize electrolytes potassium and magnesium, continue metoprolol 50 mg 3 times a day * In regards to non-ST elevated IN, cardiology consulted continue IV heparin, patient received aspirin, metoprolol ordered, sublingual nitroglycerin for chest pain, echocardiogram ordered * In regards to hypertension continue patient on metoprolol, Norvasc on hold while on IV Cardizem drip, valsartan on hold to avoid hypertension * In regards to hypothyroid continue Synthyroid * In regards to skin lesion, continue patient on isolation, infectious disease consulted started calamine lotion * CODE STATUS is full code Time with Patient: Greater than 30
--- NOTE | 2023-08-20 15:48 | CA ---
Transthoracic Echo Report Name: Martín Alcaraz Age: 83 Gender: F : 1940 Exam Date: 08/19/2023 15:50 Exam Location: [facility] Ht (in): 62 Wt (lb): 132 Ordering Physician: Rhett Mcelroy MD ([id number]) Attending/Referring Phys: Meat Grinder Jocelyn Silva RDCS Procedure CPT: Indications: ACS Cardiac Hx: Technical Quality: Fair Contrast 1: Total Dose (mL): Contrast 2: Total Dose (mL): MEASUREMENTS (Male / Female) Normal Values 2D ECHO LV Diastolic Diameter PLAX 3.0 cm 4.2 - 5.9 / 3.9 - 5.3 cm LV Systolic Diameter PLAX 2.1 cm IVS Diastolic Thickness 1.7 cm 0.6 - 1.0 / 0.6 - 0.9 cm LVPW Diastolic Thickness 1.8 cm 0.6 - 1.0 / 0.6 - 0.9 cm LV Relative Wall Thickness 1.2 RV Internal Dim ED PLAX 3.7 cm LVOT Diameter 1.6 cm LA Volume 81.9 cm??? 18 - 58 / 22 - 52 cm??? LA Volume Index 50.3 cm???/m??? 16 - 28 cm???/m??? M-MODE Aortic Root Diameter MM 3.2 cm LA Systolic Diameter MM 4.6 cm LA Ao Ratio MM 1.5 AV Cusp Separation MM 1.6 cm DOPPLER AV Peak Velocity 167.4 cm/s AV Peak Gradient 11.2 mmHg AV Mean Velocity 119.3 cm/s AV Mean Gradient 6.3 mmHg AV Velocity Time Integral 33.1 cm LVOT Peak Velocity 73.7 cm/s LVOT Peak Gradient 2.2 mmHg LVOT Velocity Time Integral 17.2 cm LVOT Stroke Volume 36.5 cm??? LVOT Stroke Volume Index 22.8 ml/m??? LVOT Cardiac Index 2400.2 cm???/min???m??? AV Area Cont Eq vti 1.1 cm??? AV Area Cont Eq pk 0.9 cm??? MV Area PHT 4.4 cm??? Mitral E Point Velocity 124.6 cm/s Mitral A Point Velocity 0.8 cm/s Mitral E to A Ratio 156.2 MV Deceleration Time 174.0 ms MV E' Velocity 9.5 cm/s Mitral E to MV E' Ratio 13.2 TR Peak Velocity 293.4 cm/s TR Peak Gradient 34.4 mmHg Right Ventricular Systolic Press 39.0 mmHg FINDINGS Left Ventricle Severely increased left ventricular wall thickness. Left ventricular cavity size normal. No obvious regional wall motion abnormalities. Left ventricular ejection fraction is estimated at 55-60%. Right Ventricle Mild right ventricular dilatation. Mild pulmonary hypertension. Right Atrium Normal right atrial size. Left Atrium Severely increased left atrial volume. Mildly increased left atrial area. Mitral Valve Structurally normal mitral valve. No mitral stenosis. Moderate mitral annular calcification. [id number]-[id number] mitral regurgitation. Aortic Valve No aortic valve stenosis or regurgitation. Thickened aortic valve without stenosis. Tricuspid Valve Structurally normal tricuspid valve. [id number] tricuspid regurgitation. Pulmonic Valve Trace pulmonic regurgitation. Pericardium No pericardial effusion. Aorta Normal size aortic root and proximal ascending aorta. CONCLUSIONS Technically difficult study for interpretation Normal LV systolic function [id number]-[id number] mitral regurgitation Previewed by: Dr. Rhett Mcelroy MD (Electronically Signed) Final Date: 20 August 2023 15:47
[2023-08-20 16:39] LABS: Glucose,Whole Blood 173 mg/dL (70-110)
[2023-08-20 20:12] LABS: Glucose,Whole Blood 159 mg/dL (70-110)
[2023-08-20] MEDS: SODIUM CHLORIDE 0.9% 1,000 ML IV SCH (21:38)
[2023-08-20] MEDS: HEPARIN SOD,PORK IN 0.45% NACL 25,000 UNIT in 0.45% NACL 1 250ML.BAG IV SCH (21:41)
[2023-08-21] MEDS: LEVOTHYROXINE 25 MCG TAB PO SCH (05:58)
[2023-08-21 06:03] LABS: Glucose,Whole Blood 131 mg/dL (70-110)
[2023-08-21] MEDS: INSULIN ASPART (NovoLOG) 100 UNIT/ML VIAL SQ SCH ×4 (06:16→21:05)
[2023-08-21 09:42] LABS: Hypochromasia Slight; MCH 28.2 pg (25.0-35.0); MCHC 32.4 g/dL (31.0-37.0); MCV 87.1 fL (80.0-100.0); Mean Platelet Volume 7.6; Platelet Count 265 k/uL (150-450); RBC 3.56 m/uL (3.80-5.40); RDW 15.1 % (11.5-15.5); WBC 5.5 k/uL (3.8-10.6)
[2023-08-21 10:02] LABS: African American GFR (CKD) 25 (>60 ml/min/1.73 sqM); Anion Gap 11 mmol/L; Blood Urea Nitrogen 42 mg/dL (7-17); Calcium 8.8 mg/dL (8.4-10.2); Carbon Dioxide 21 mmol/L (22-30); Chloride 106 mmol/L (98-107); Glucose 159 mg/dL (74-99); Magnesium 1.8 mg/dL (1.6-2.3); Non-African American GFR(CKD) 21 (>60 ml/min/1.73 sqM); Sodium 138 mmol/L (137-145)
[2023-08-21] MEDS: METOPROLOL SUCCINATE (ER) 50 MG TAB.ER.24H PO SCH (10:14)
[2023-08-21] MEDS: ASPIRIN 81 MG PO SCH (10:14)
[2023-08-21 11:43] LABS: Glucose,Whole Blood 138 mg/dL (70-110)
--- NOTE | 2023-08-21 12:17 | P.PN ---
Subjective Progress Note Date: 08/21/23 * 83-year-old patient with past medical history significant for diabetes mellitus type 2, hypertension, hypothyroid, chronic lower extremity edema, venous insufficiency present to the emergency department with complains of fatigue, weakness and shortness of breath * Patient noted that she had elevated heart rate and blood pressure prior to presentation. Patient also complained of palpitations, patient denied any recent sick contacts or fever, chills, chest pain, cough, syncope loss of consciousness of abdominal pain * Workup initiated in ER included an EKG which showed heart rate of 137 with concern for atrial flutter and rapid ventricular response * Blood work obtained at the time of presentation included WBC 6.8 hemoglobin 10.7 platelet count of 367, INR of 0.9 * Serum chemistry sodium 140 potassium 4.5, next a 21 BUN 32 creatinine 2.1, blood glucose 201 * Serum troponin obtained was 0.136, * N-terminal proBNP 8380 * TSH 2.5, free T4 1 0.21 * Patient was given a dose of IV Cardizem push and started on oral metoprolol, patient was also started on heparin drip * While in ER patient had persistent tachycardia hence cards and drip initiated by cardiology who has also been consulted * 08/20/2023: Patient seen and evaluated and bedside, patient transferred to room 385. Seen by cardiology does have paroxysmal tachycardia more continue patient on metoprolol 3 times a day 50 mg, patient does have skin lesions and concern for bug bite/scabies consulted infectious disease started patient on calamine lotion * 08/21/23: Patient seen and evaluated bedside, patient alert and oriented 3, patient right lower extremity noted to be swollen, red, warm. Patient on Cardizem drip, appreciate input from infectious disease and cardiology. Noted to have magnesium of 1.8 replacement ordered, creatinine 2.12 will continue to monitor REVIEW OF SYSTEMS: Fatigue, shortness of breath, palpitations improved CONSTITUTIONAL: Fatigue, shortness of breath, palpitations HEENT: No recent visual problems or hearing problems. Denied any sore throat. CARDIOVASCULAR: Fatigue, shortness of breath, palpitations PULMONARY: No-, no cough, no hemoptysis. GASTROINTESTINAL: No diarrhea, no nausea, no vomiting, no abdominal pain. NEUROLOGICAL: No headaches, no weakness, no numbness. HEMATOLOGICAL: Denies any bleeding or petechiae. GENITOURINARY: Denies any burning micturition, frequency, or urgency. MUSCULOSKELETAL/RHEUMATOLOGICAL: Denies any joint pain, swelling, or any muscle pain. ENDOCRINE: Denies any polyuria or polydipsia. Objective - Vital Signs Vital signs: Vital Signs Temp 98.0 F 08/21/23 08:00 Pulse 90 08/21/23 08:00 Resp 17 08/21/23 08:00 BP 119/59 08/21/23 08:00 Pulse Ox 100 08/21/23 08:00 FiO2 Intake & Output 08/20/23 08/21/23 08/21/23 18:59 06:59 18:59 Intake Total 360 238.094 358 Output Total 550 Balance -190 238.094 358 Intake: Intake, IV Titration 238.094 Amount Heparin Sod,Pork in 0.45% 238.094 NaCl 25,000 unit In 0.45 % NaCl 1 250ml.bag @ 12 UNITS/KG/HR 7.185 mls/hr IV .Q24H [facility] Rx#: [id number] Oral 360 358 Output: Urine 550 Other: Voiding Method Incontinent Toilet External Catheter Incontinent # Voids 1 2 1 # Bowel Movements 1 - Labs CBC & Chem 7: 08/21/23 08:29 08/21/23 08:29 Labs: Abnormal Lab Results - Last 24 Hours (Table) 08/20/23 08/20/23 08/21/23 Range/Units 16:35 20:10 06:01 RBC (3.80-5.40) m/uL Hgb (11.4-16.0) gm/dL Hct (34.0-46.0) % APTT (22.0-30.0) sec Carbon Dioxide (22-30) mmol/L BUN (7-17) mg/dL Creatinine (0.52-1.04) mg/dL Glucose (74-99) mg/dL POC Glucose (mg/dL) 173 H 159 H 131 H (70-110) mg/dL 08/21/23 08/21/23 08/21/23 Range/Units 08:29 08:29 08:29 RBC 3.56 L (3.80-5.40) m/uL Hgb 10.0 L (11.4-16.0) gm/dL Hct 31.0 L (34.0-46.0) % APTT 42.3 H (22.0-30.0) sec Carbon Dioxide 21 L (22-30) mmol/L BUN 42 H (7-17) mg/dL Creatinine 2.12 H (0.52-1.04) mg/dL Glucose 159 H (74-99) mg/dL POC Glucose (mg/dL) (70-110) mg/dL 08/21/23 Range/Units 11:41 RBC (3.80-5.40) m/uL Hgb (11.4-16.0) gm/dL Hct (34.0-46.0) % APTT (22.0-30.0) sec Carbon Dioxide (22-30) mmol/L BUN (7-17) mg/dL Creatinine (0.52-1.04) mg/dL Glucose (74-99) mg/dL POC Glucose (mg/dL) 138 H (70-110) mg/dL Assessment and Plan Assessment: Assessment and plan * New onset atrial fibrillation/atrial flutter with rapid monitor response * Non-ST elevated KS * Left lower extremity cellulitis * History of hypertension * Hypothyroid * Skin lesion/bug bite * In regards to new onset tachycardia,Atrial fibrillation, patient started on IV heparin, continue IV Cardizem drip 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, optimize electrolytes potassium and magnesium, continue metoprolol 50 mg 3 times a day, appreciate input from cardiology * In regards to non-ST elevated KS, cardiology consulted continue IV heparin, patient received aspirin, metoprolol ordered, sublingual nitroglycerin for chest pain, echocardiogram shows ejection fraction 60% * In regards to hypertension continue patient on metoprolol, Norvasc on hold while on IV Cardizem drip, valsartan on hold to avoid hypertension * In regards to hypothyroid continue Synthyroid * In regards to skin lesion, continue patient on isolation, infectious disease consulted started calamine lotion * In regards to left lower extremity cellulitis, ASO titers ordered patient started on IV Rocephin, appreciate input from infectious disease * CODE STATUS is full code Time with Patient: Greater than 30
[2023-08-21] MEDS: APIXABAN 2.5 MG TABLET PO SCH ×2 (13:30→21:05)
[2023-08-21] MEDS: MAGNESIUM SULFATE-D5W PMX 1 GM in DEXTROSE/WATER 1 100ML.BAG IVPB SCH ×2 (13:30→15:39)
--- NOTE | 2023-08-21 14:32 | US ---
EXAMINATION TYPE: US venous doppler duplex LE LT DATE OF EXAM: 08/21/2023 1:55 PM COMPARISON: NONE CLINICAL INDICATION: Female, 83 years old with history of Swelling to rule out DVT; SIDE PERFORMED: Left TECHNIQUE: Venous duplex examination of the left lower extremity from the groin to the upper calf performed usin g B-mode, color flow and spectral analysis plus graded compression. VESSELS IMAGED: Common Femoral Vein Deep Femoral Vein Greater Saphenous Vein * Femoral Vein Popliteal Vein Small Saphenous Vein * Proximal Calf Veins (* superficial vessels) FINDINGS: LEFT LOWER EXTREMITY: There is color flow, spontaneous and phasic flow with normal compressibility seen of the external reagan ac vein, common femoral vein, greater saphenous vein, profunda, femoral vein, and popliteal vein. Pro ximal calf veins show normal compressibility. No thrombus is seen throughout the left lower extremity . IMPRESSION: No evidence of DVT in the left lower extremity.
[2023-08-21 16:32] LABS: Glucose,Whole Blood 156 mg/dL (70-110)
[2023-08-21 20:11] LABS: Glucose,Whole Blood 265 mg/dL (70-110)
[2023-08-21] MEDS: METOPROLOL SUCCINATE (ER) 100 MG TAB.ER.24H PO SCH (21:05)
[2023-08-21] MEDS: SODIUM CHLORIDE 0.9% 1,000 ML IV SCH (21:06)
[2023-08-22 06:20] LABS: Glucose,Whole Blood 128 mg/dL (70-110)
[2023-08-22] MEDS: INSULIN ASPART (NovoLOG) 100 UNIT/ML VIAL SQ SCH ×4 (06:31→21:48)
[2023-08-22] MEDS: LEVOTHYROXINE 25 MCG TAB PO SCH (06:45)
--- NOTE | 2023-08-22 07:26 | P.CONS ---
History of Present Illness - Reason for Consult Consult date: 08/21/23 - History of Present Illness Patient is a 83-year-old female with a past medical history significant for diabetes mellitus hypertension osteoarthritis patient presenting to the hospital 3 days ago for evaluation of fatigue week and did have some shortness of breath at home over the last 2 weeks patient also have a history of lower extremity swelling and some ulceration especially to the left lower extremity did have mild aching pain to the left leg without any radiation with associated swelling and minimal redness and 1 superficial ulceration but no foul-smelling drainage also has noticed to have a rash with concern for possible scabies calamine lotion has been advised with concern for possible cellulitis to the left leg Rocephin was added infectious disease was consulted for further management concerning basically for scabies patient did have a rash mostly involving the left flank did have mild itching associated with it denies having any joint swelling no oral lesion no new medication no nausea vomiting no abdominal pain no diarrhea Past Medical History Past Medical History: Diabetes Mellitus, Hypertension, Osteoarthritis (OA) Additional Past Medical History / Comment(s): uterine cancer, incontinent of urine History of Any Multi-Drug Resistant Organisms: None Reported Past Surgical History: No Surgical Hx Reported Additional Past Surgical History / Comment(s): cataract & carpal-tunnel bilat. Past Anesthesia/Blood Transfusion Reactions: No Reported Reaction Past Psychological History: No Psychological Hx Reported Smoking Status: Never smoker Past Alcohol Use History: None Reported Past Drug Use History: None Reported - Past Family History Mother Family Medical History: Coronary Artery Disease (CAD), Diabetes Mellitus, Hypertension, Mitral Valve Prolapse (MVP) Father Family Medical History: Hypertension Additional Family Medical History / Comment(s): father hip surgery Medications and Allergies Home Medications Medication Instructions Recorded Confirmed Type Levothyroxine Sodium 25 mcg PO DAILY 06/28/22 08/18/23 History Valsartan 320 mg PO DAILY 06/28/22 08/18/23 History amLODIPine [Norvasc] 5 mg PO DAILY #90 tab 06/30/22 08/18/23 Rx Psyllium Husk [Fiber Capsule] 3.2 gm PO BID 08/18/23 08/18/23 History Semaglutide [Rybelsus] 7 mg PO DAILY 08/18/23 08/18/23 History Allergies Allergy/AdvReac Type Severity Reaction Status Date / Time bacitracin Allergy Rash/Hives Verified 08/18/23 21:08 [From Neosporin ([id number])] ibuprofen Allergy Anaphylaxis Verified 08/18/23 21:08 & Rash all over neomycin Allergy Rash/Hives Verified 08/18/23 21:08 [From Neosporin ([id number])] polymyxin B Allergy Rash/Hives Verified 08/18/23 21:08 [From Neosporin ([id number])] Physical Exam Vitals: Vital Signs Temp Pulse Resp BP Pulse Ox 08/21/23 04:00 74 16 132/71 98 08/21/23 02:00 16 08/21/23 00:00 81 16 104/59 100 08/20/23 20:00 98.3 F 78 16 122/67 99 08/20/23 16:00 98.2 F 84 16 107/66 99 08/20/23 14:00 16 08/20/23 12:00 98.2 F 83 18 96/54 99 08/20/23 09:32 98.2 F 92 16 125/70 100 08/20/23 08:00 16 Intake and Output 08/20/23 08/21/23 08/21/23 22:59 06:59 14:59 Intake Total 358.094 Balance 358.094 Intake: Intake, IV Titration 238.094 Amount Heparin Sod,Pork in 0.45% 238.094 NaCl 25,000 unit In 0.45 % NaCl 1 250ml.bag @ 12 UNITS/KG/HR 7.185 mls/hr IV .Q24H [facility] Rx#: [id number] Oral 120 Other: Voiding Method Toilet Toilet Incontinent Incontinent # Voids 1 2 # Bowel Movements 1 Results CBC & Chem 7: 08/21/23 08:29 08/21/23 08:29 Labs: Abnormal Lab Results - Last 24 Hours (Table) 08/20/23 08/20/23 08/20/23 Range/Units 08:54 08:54 08:54 RBC 3.45 L (3.80-5.40) m/uL Hgb 9.4 L (11.4-16.0) gm/dL Hct 30.2 L (34.0-46.0) % APTT 48.1 H (22.0-30.0) sec Chloride 111 H (98-107) mmol/L Carbon Dioxide 18 L (22-30) mmol/L BUN 35 H (7-17) mg/dL Creatinine 1.70 H (0.52-1.04) mg/dL Glucose 119 H (74-99) mg/dL POC Glucose (mg/dL) (70-110) mg/dL 08/20/23 08/20/23 08/20/23 Range/Units 11:51 16:35 20:10 RBC (3.80-5.40) m/uL Hgb (11.4-16.0) gm/dL Hct (34.0-46.0) % APTT (22.0-30.0) sec Chloride (98-107) mmol/L Carbon Dioxide (22-30) mmol/L BUN (7-17) mg/dL Creatinine (0.52-1.04) mg/dL Glucose (74-99) mg/dL POC Glucose (mg/dL) 272 H 173 H 159 H (70-110) mg/dL 08/21/23 Range/Units 06:01 RBC (3.80-5.40) m/uL Hgb (11.4-16.0) gm/dL Hct (34.0-46.0) % APTT (22.0-30.0) sec Chloride (98-107) mmol/L Carbon Dioxide (22-30) mmol/L BUN (7-17) mg/dL Creatinine (0.52-1.04) mg/dL Glucose (74-99) mg/dL POC Glucose (mg/dL) 131 H (70-110) mg/dL Assessment and Plan Plan: 1patient presented to hospital with weakness fatigue shortness of breath likely due to underlying cardiac etiology diagnosed with A-fib with RVR patient also noticed to have possible ministers ulcer to the left lower extremity and mild cellulitis 2-patient did have a rash mostly in the upper lower extremity questionably related to scratching and itching not compatible with scabies clinically 3-patient to continue with the Rocephin for the left lower extremity cellulitis 4-we will advise Domo wrap to the left leg to help keep the swelling down that will help with her symptoms We will follow on clinical condition and cultures to further adjust medication if needed Thank you for this consultation we will follow the patient along with you Dictation was produced using [employer] dictation software. please excuse any grammatical, word or spelling errors. Time with Patient: Greater than 30
[2023-08-22] MEDS: DILTIAZEM 125 MG in SODIUM CHLORIDE 0.9% 100 ML IV SCH (09:08)
[2023-08-22] MEDS: APIXABAN 2.5 MG TABLET PO SCH ×2 (09:12→20:31)
[2023-08-22] MEDS: ASPIRIN 81 MG PO SCH (09:12)
[2023-08-22] MEDS: METOPROLOL SUCCINATE (ER) 100 MG TAB.ER.24H PO SCH ×2 (09:12→20:31)
[2023-08-22 09:50] LABS: HCT 27.6 % (34.0-46.0); HGB 8.9 gm/dL (11.4-16.0); Hypochromasia Slight; MCH 28.1 pg (25.0-35.0); MCHC 32.3 g/dL (31.0-37.0); MCV 87.2 fL (80.0-100.0); Mean Platelet Volume 7.8; Platelet Count 244 k/uL (150-450); RBC 3.17 m/uL (3.80-5.40); RDW 15.2 % (11.5-15.5); WBC 5.3 k/uL (3.8-10.6)
[2023-08-22 10:06] LABS: African American GFR (CKD) 33 (>60 ml/min/1.73 sqM); Anion Gap 13 mmol/L; Blood Urea Nitrogen 42 mg/dL (7-17); C Reactive Protein 2.5 mg/dL (<1.0); Calcium 8.6 mg/dL (8.4-10.2); Carbon Dioxide 16 mmol/L (22-30); Chloride 108 mmol/L (98-107); Glucose 179 mg/dL (74-99); Non-African American GFR(CKD) 29 (>60 ml/min/1.73 sqM); Potassium 4.4 mmol/L (3.5-5.1); Sodium 137 mmol/L (137-145)
[2023-08-22 11:34] LABS: Glucose,Whole Blood 144 mg/dL (70-110)
--- NOTE | 2023-08-22 14:26 | PN ---
PROGRESS NOTE DATE OF SERVICE: 08/22/2023 SUBJECTIVE: This is an 83-year-old woman, who was admitted with new-onset atrial fibrillation, who also had cellulitis. No chest pain. No palpitations. No fever. PHYSICAL EXAMINATION: VITAL SIGNS: Pulse is 86, blood pressure 130/69, respirations 18. CHEST: Clear to auscultation. CARDIOVASCULAR: S1 and S2. ABDOMEN: Soft. NERVOUS SYSTEM: Nonfocal. LABORATORY DATA: Reviewed. ASSESSMENT: 1. New-onset atrial flutter/fibrillation with rapid ventricular rate. 2. Acute rpt-LT-tabuzoi-elevation myocardial infarction. 3. Left lower extremity cellulitis. 4. Multiple complex medical issues. RECOMMENDATIONS: Recommend to continue current medications. Continue symptomatic treatment. Otherwise, await ID evaluation. Repeat labs. Closely monitor. Closely follow with Cardiology. Further recommendations to follow. PAM / ALEXUSN: [id number] /
[2023-08-22 16:29] LABS: Glucose,Whole Blood 177 mg/dL (70-110)
[2023-08-22 21:21] LABS: Glucose,Whole Blood 161 mg/dL (70-110)
--- NOTE | 2023-08-22 22:20 | PN ---
PROGRESS NOTE SUBJECTIVE: This is an 83-year-old patient with history of hypertension and hypothyroidism, who is admitted to hospital with atrial fibrillation with rapid ventricular rate. She had an echocardiogram that showed normal LV systolic function. Had mild troponin elevation thought to be related to atrial fibrillation with rapid ventricular rate. She also has anemia, acute on chronic renal failure and multiple other comorbidities. OBJECTIVE: GENERAL: This morning, she is doing well and is free of symptoms. VITAL SIGNS: She remains in sinus rhythm with a heart rate of 80 beats per minute, blood pressure is 138/69, respiratory rate is 18, O2 saturation is 99%. NECK: There is no jugular venous distention. Carotid upstroke is normal. There is no bruit. CHEST: Reveals diminished air entry at the bases. HEART: Reveals first and second heart sounds with a systolic murmur at the left lower sternal border. ABDOMEN: Soft. EXTREMITIES: Exam of extremities did not reveal any edema. Right leg has nonhealing ulcer. LABORATORY DATA: Labs show a hemoglobin of 8.9, platelet count is 244, BUN is 42, creatinine is 1.6. DIAGNOSTIC DATA: An EKG shows atrial fibrillation with nonspecific ST-T wave changes. ASSESSMENT: Atrial fibrillation with rapid ventricular rate. PLAN: The patient is doing well on anticoagulation with Eliquis and Toprol-XL for rate control, which she is going to continue. The infection in her leg is being treated by Infectious Disease expert and hopefully home once these issues resolve. MMODL / ALEXUSN: [id number] /
[2023-08-23 05:58] LABS: Glucose,Whole Blood 129 mg/dL (70-110)
[2023-08-23] MEDS: LEVOTHYROXINE 25 MCG TAB PO SCH (06:13)
[2023-08-23] MEDS: SODIUM CHLORIDE 0.9% 1,000 ML IV SCH (07:49)
[2023-08-23] MEDS: INSULIN ASPART (NovoLOG) 100 UNIT/ML VIAL SQ SCH ×2 (07:50→13:44)
[2023-08-23] MEDS: METOPROLOL SUCCINATE (ER) 100 MG TAB.ER.24H PO SCH (08:36)
[2023-08-23] MEDS: APIXABAN 2.5 MG TABLET PO SCH (08:36)
[2023-08-23] MEDS: ASPIRIN 81 MG PO SCH (08:36)
[2023-08-23 09:01] VITALS: TEMP 97.6
[2023-08-23 09:41] LABS: Basophils % (A) 0 %; Eosinophils # (A) 0.2 k/uL (0-0.7); Eosinophils % (A) 5 %; HCT 29.8 % (34.0-46.0); HGB 9.8 gm/dL (11.4-16.0); Hypochromasia Slight; Lymphocytes # (A) 0.9 k/uL (1.0-4.8); Lymphocytes % (A) 21 %; MCH 28.6 pg (25.0-35.0); MCHC 32.7 g/dL (31.0-37.0); MCV 87.4 fL (80.0-100.0); Mean Platelet Volume 7.4; Monocytes # (A) 0.3 k/uL (0-1.0); Monocytes % (A) 7 %; Neutrophils # (A) 2.6 k/uL (1.3-7.7); Neutrophils % (A) 64 %; Platelet Count 275 k/uL (150-450); RBC 3.41 m/uL (3.80-5.40); RDW 15.4 % (11.5-15.5); WBC 4.2 k/uL (3.8-10.6)
[2023-08-23 10:02] LABS: African American GFR (CKD) 28 (>60 ml/min/1.73 sqM); Anion Gap 8 mmol/L; Blood Urea Nitrogen 42 mg/dL (7-17); Calcium 8.8 mg/dL (8.4-10.2); Carbon Dioxide 21 mmol/L (22-30); Chloride 108 mmol/L (98-107); Glucose 104 mg/dL (74-99); Non-African American GFR(CKD) 24 (>60 ml/min/1.73 sqM); Potassium 4.5 mmol/L (3.5-5.1); Sodium 137 mmol/L (137-145)
[2023-08-23] MEDS ORDERED: ATORVASTATIN 20 MG TAB PO SCH (11:15)
[2023-08-23 11:53] LABS: Glucose,Whole Blood 168 mg/dL (70-110)
--- NOTE | 2023-08-23 12:04 | CDI ---
Documentation Clarification Form Date: From: Zoraida Mills Phone: [phone] Admit Date: 08/18/2023 08:32:00 PM Patient Name: Martín Alcaraz Visit Number: [id number] Discharge Date: ATTENTION: The Clinical Documentation Specialists (CDI) and [facility] Coding Staff appreciate your assistance in clarifying documentation. Please respond to the clarification below the line at the bottom and electronically sign. The CDI & [facility] Coding staff will review the response and follow-up if needed. Please note: Queries are made part of the Legal Health Record. If you have any questions, please contact the author of this message via ITS. Dr. Charlie Calix Conflicting documentation has been found in the medical record. As attending physician, please provide clarification. "Non-ST elevated [place]" - Per Progress Note on 08/21 "Evidence of myocardial injury" - Per Cardiology Note on 08/20 History/Risk Factors: "83-year-old patient with past medical history significant for diabetes mellitus type 2, hypertension, hypothyroid, chronic lower extremity edema, venous insufficiency present to the emergency department with complains of fatigue, weakness and shortness of breath" - Per H&P on 08/19 Clinical Indicators:"CARDIOVASCULAR: Fatigue, shortness of breath, palpitations" "heart rate of 137 with concern for atrial flutter and rapid ventricular response" "troponin obtained was 0.136" "proBNP 8380" - Per H&P on 08/21 Troponin: 08/19 - 0.252, 0.212, 0.231 Treatment: "IV heparin, continue IV Cardizem drip" "cardiology consulted continue IV heparin, patient received aspirin, metoprolol ordered, sublingual nitroglycerin for chest pain, echocardiogram shows ejection fraction 60%" - Per Progress Note on 08/21 Please clarify which diagnosis is most appropriate: [ ] NSTEMI type 1 [ ] Type 2 IA due to Atrial Fibrillation / Atrial flutter w/ RVR [ ] Non-ischemic with acute myocardial injury [ ] Other, please specify [ ] Unable to determine NSTEMI type 1 MTDD
[2023-08-23 12:35] VITALS: BMI 24.1
[2023-08-23] MEDS ORDERED: IVERMECTIN 3 MG TABLET PO ONE (13:00)
[2023-08-23 13:06] VITALS: BP 147/74; PULSE 84; RESP 17
--- NOTE | 2023-08-23 15:30 | P.PN ---
Subjective Progress Note Date: 08/22/23 Principal diagnosis: Reason for follow-up is possible left leg cellulitis and rash Patient is a 83-year-old female with a past medical history significant for diabetes mellitus hypertension osteoarthritis patient presenting to the hospital for evaluation of fatigue and weakness also noticed to have in the some swelling redness to the left leg and the patient also complaining of generalized itching. On today's evaluation that is 08/22/2023, the patient remains to be afebrile, the patient is breathing comfortably on room air and denies any shortness of breath, the patient denies any chest pain, no significant cough or sputum production, patient denies nausea/vomiting /diarrhea and no abdominal pain, patient still complaining of swelling that she needs a left leg slightly decreased Patient did have a white count of 5.3, creatinine 1.65 Objective - Vital Signs Vital signs: Vital Signs Temp 97.8 F 08/22/23 12:00 Pulse 86 08/22/23 12:00 Resp 18 08/22/23 12:00 BP 138/69 08/22/23 12:00 Pulse Ox 99 08/22/23 12:00 FiO2 Intake & Output 08/21/23 08/22/23 08/22/23 18:59 06:59 18:59 Intake Total 598 540 480 Balance 598 540 480 Intake: Oral 598 540 480 Other: Voiding Method Toilet Toilet Toilet Incontinent Incontinent Diaper # Voids 1 2 1 - Exam GENERAL DESCRIPTION: An elderly female up in bed in no distress RESPIRATORY SYSTEM: Unlabored breathing , clear to auscultation anteriorly HEART: S1 S2 regular rate and rhythm , ABDOMEN: Soft , no tenderness EXTREMITIES: Left leg is currently wrapped in Domo wrap - Labs CBC & Chem 7: 08/23/23 07:48 08/23/23 07:48 Labs: Abnormal Lab Results - Last 24 Hours (Table) 08/21/23 08/21/23 08/22/23 Range/Units 16:30 20:09 06:19 RBC (3.80-5.40) m/uL Hgb (11.4-16.0) gm/dL Hct (34.0-46.0) % Chloride (98-107) mmol/L Carbon Dioxide (22-30) mmol/L BUN (7-17) mg/dL Creatinine (0.52-1.04) mg/dL Glucose (74-99) mg/dL POC Glucose (mg/dL) 156 H 265 H 128 H (70-110) mg/dL C-Reactive Protein (<1.0) mg/dL 08/22/23 08/22/23 08/22/23 Range/Units 08:33 08:33 11:30 RBC 3.17 L (3.80-5.40) m/uL Hgb 8.9 L (11.4-16.0) gm/dL Hct 27.6 L (34.0-46.0) % Chloride 108 H (98-107) mmol/L Carbon Dioxide 16 L (22-30) mmol/L BUN 42 H (7-17) mg/dL Creatinine 1.65 H (0.52-1.04) mg/dL Glucose 179 H (74-99) mg/dL POC Glucose (mg/dL) 144 H (70-110) mg/dL C-Reactive Protein 2.5 H (<1.0) mg/dL Assessment and Plan (1) Rash Current Visit: Yes Status: Acute Code(s): R21 - RASH AND OTHER NONSPECIFIC SKIN ERUPTION SNOMED Code(s): 291711448 (2) Stasis dermatitis of left lower extremity with venous ulcer due to chronic peripheral venous hypertension Current Visit: No Status: Acute Code(s): I87.332 - CHRONIC VENOUS HTN W ULCER AND INFLAMMATION OF L LOW EXTREM; L97.929 - NON-PRS CHRONIC ULC UNSP PRT OF L LOW LEG W UNSP SEVERITY SNOMED Code(s): 633875107953593 Plan: 1patient presented to hospital with weakness fatigue shortness of breath likely due to underlying cardiac etiology diagnosed with A-fib with RVR patient also noticed to have possible ministers ulcer to the left lower extremity and mild cellulitis 2-patient did have a rash mostly in the upper lower extremity questionably related to scratching and itching not compatible with scabies clinically 3-patient to continue with the Rocephin along with calamine lotion and Domo wrap to the left leg to help keep the swelling down Dictation was produced using [employer] dictation software. please excuse any grammatical, word or spelling errors. Time with Patient: Less than 30
--- NOTE | 2023-08-23 15:31 | P.PN ---
Subjective Progress Note Date: 08/23/23 Principal diagnosis: Reason for follow-up is possible left leg cellulitis and rash Patient is a 83-year-old female with a past medical history significant for diabetes mellitus hypertension osteoarthritis patient presenting to the hospital for evaluation of fatigue and weakness also noticed to have in the some swelling redness to the left leg and the patient also complaining of generalized itching. On today's evaluation that is 08/23/2023, the patient denies any fever or any chills, the patient is breathing comfortably on room air without the need for supplemental oxygen, patient denies chest pain shortness of breath, the patient denies cough or sputum production, patient denies Abdominal pain, no nausea/vomiting or diarrhea, the patient still complaining of itching though no worsening rash has been noticed Patient did have a white count 4.2, creatinine 1.91 Objective - Vital Signs Vital signs: Vital Signs Temp 97.6 F 08/23/23 08:34 Pulse 84 08/23/23 12:00 Resp 17 08/23/23 12:00 BP 147/74 08/23/23 12:00 Pulse Ox 98 08/23/23 12:00 FiO2 Intake & Output 08/22/23 08/23/23 08/23/23 18:59 06:59 18:59 Intake Total 1140 1020 940 Balance 1140 1020 940 Weight 59.874 kg Intake: Oral 1140 1020 940 Other: Voiding Method Toilet Toilet Toilet Diaper Diaper Diaper # Voids 2 2 - Exam GENERAL DESCRIPTION: An elderly female up in bed in no distress RESPIRATORY SYSTEM: Unlabored breathing , clear to auscultation anteriorly HEART: S1 S2 regular rate and rhythm , ABDOMEN: Soft , no tenderness EXTREMITIES: Left leg is currently wrapped in Domo wrap - Labs CBC & Chem 7: 08/23/23 07:48 08/23/23 07:48 Labs: Abnormal Lab Results - Last 24 Hours (Table) 08/22/23 08/22/23 08/23/23 Range/Units 16:27 21:20 05:57 RBC (3.80-5.40) m/uL Hgb (11.4-16.0) gm/dL Hct (34.0-46.0) % Lymphocytes # (1.0-4.8) k/uL Chloride (98-107) mmol/L Carbon Dioxide (22-30) mmol/L BUN (7-17) mg/dL Creatinine (0.52-1.04) mg/dL Glucose (74-99) mg/dL POC Glucose (mg/dL) 177 H 161 H 129 H (70-110) mg/dL 08/23/23 08/23/23 08/23/23 Range/Units 07:48 07:48 11:52 RBC 3.41 L (3.80-5.40) m/uL Hgb 9.8 L (11.4-16.0) gm/dL Hct 29.8 L (34.0-46.0) % Lymphocytes # 0.9 L (1.0-4.8) k/uL Chloride 108 H (98-107) mmol/L Carbon Dioxide 21 L (22-30) mmol/L BUN 42 H (7-17) mg/dL Creatinine 1.91 H (0.52-1.04) mg/dL Glucose 104 H (74-99) mg/dL POC Glucose (mg/dL) 168 H (70-110) mg/dL Assessment and Plan (1) Rash Current Visit: Yes Status: Acute Code(s): R21 - RASH AND OTHER NONSPECIFIC SKIN ERUPTION SNOMED Code(s): 377486126 (2) Stasis dermatitis of left lower extremity with venous ulcer due to chronic peripheral venous hypertension Current Visit: No Status: Acute Code(s): I87.332 - CHRONIC VENOUS HTN W ULCER AND INFLAMMATION OF L LOW EXTREM; L97.929 - NON-PRS CHRONIC ULC UNSP PRT OF L LOW LEG W UNSP SEVERITY SNOMED Code(s): 421598366672561 Plan: 1patient presented to hospital with weakness fatigue shortness of breath likely due to underlying cardiac etiology diagnosed with A-fib with RVR patient also noticed to have possible ministers ulcer to the left lower extremity and mild cellulitis 2-patient did have a rash mostly in the upper lower extremity questionably related to scratching and itching not compatible with scabies, however the patient has been adamant we will give her a dose of ivermectin and see clinical response 3-patient to continue with the Rocephin along with calamine lotion and Domo wrap to the left leg to help keep the swelling down Dictation was produced using [email or web address] software. please excuse any grammatical, word or spelling errors. Time with Patient: Less than 30
--- NOTE | 2023-08-23 17:49 | P.PN ---
Subjective Progress Note Date: 08/23/23 Atrial fibrillation The patient is a pleasant 83-year-old female patient with diabetes and hypertension and dyslipidemia and lower extremity is peripheral arterial disease presented to the emergency room complaining of claudication in heart racing associated with shortness of breath. The symptoms started about 24 hours before she presented. No pain in the chest and no dizziness or lightheadedness and no feeling of heart racing or fluttering and no presyncope or syncope. The patient underwent an EKG and that revealed atrial fibrillation with RVR that is new to her. She never diagnosed was in nature fibrillation before. Further investigation including troponin came in to be abnormal. She does have multiple risk factors for CAD but this is acute on chronic renal failure and she is also slightly anemic. The chest x-ray did not show any acute abnormalities. Patient was started on Cardizem IV and subsequently she was started on heparin IV as well. She was on beta nereyda as an outpatient. Currently she is in atrial fibrillation with overall controlled heart rate. We are going to wean her from the Cardizem IV and his dose of beta nereyda. She is to be on oral anticoagulation as an outpatient. The mildly abnormal troponin could be related to the atrial fibrillation with RVR in association with the acute renal failure but also severe underlying coronary artery disease to be ruled out given her multiple risk factors and she might have an acute coronary event related to type I myocardial infarction. The examination is remarkable for with systolic murmur right upper sternal border and apical area and clear breathing sounds bilaterally and mild bilateral lower extremity edema worse on the left than the right. The patient was seen by our service in 2021 for hypertension emergency and underwent an echo which revealed normal right ventricular dimension and systolic function was mild to moderate valvular abnormalities 08/23/2023 Patient is rate controlled atrial fibrillation current regimen. She denies any chest pain chest pressure shortness of breath. She is hemodynamically stable. She appears euvolemic. Assessment Atrial fibrillation with RVR and this is a new diagnosis the patient. Currently in controlled rate Evidence of myocardial injury Multiple comorbid conditions including diabetes and hypertension and dyslipidemia and PAD Acute on chronic renal failure Anemia Plan Continue anticoagulation and metoprolol Patient's echocardiogram was reviewed which showed normal LV systolic function with EF of 55% Patient is stable to be discharged from cardiac vessel standpoint. Other comorbidities to be managed by primary team Objective - Vital Signs Vital signs: Vital Signs Temp 97.6 F 08/23/23 08:34 Pulse 84 08/23/23 12:00 Resp 17 08/23/23 12:00 BP 147/74 08/23/23 12:00 Pulse Ox 98 08/23/23 12:00 FiO2 Intake & Output 08/22/23 08/23/23 08/23/23 18:59 06:59 18:59 Intake Total 1140 1020 940 Balance 1140 1020 940 Weight 59.874 kg Intake: Oral 1140 1020 940 Other: Voiding Method Toilet Toilet Toilet Diaper Diaper Diaper # Voids 2 2 - Labs CBC & Chem 7: 08/23/23 07:48 08/23/23 07:48 Labs: Abnormal Lab Results - Last 24 Hours (Table) 08/22/23 08/23/23 08/23/23 Range/Units 21:20 05:57 07:48 RBC 3.41 L (3.80-5.40) m/uL Hgb 9.8 L (11.4-16.0) gm/dL Hct 29.8 L (34.0-46.0) % Lymphocytes # 0.9 L (1.0-4.8) k/uL Chloride (98-107) mmol/L Carbon Dioxide (22-30) mmol/L BUN (7-17) mg/dL Creatinine (0.52-1.04) mg/dL Glucose (74-99) mg/dL POC Glucose (mg/dL) 161 H 129 H (70-110) mg/dL 08/23/23 08/23/23 Range/Units 07:48 11:52 RBC (3.80-5.40) m/uL Hgb (11.4-16.0) gm/dL Hct (34.0-46.0) % Lymphocytes # (1.0-4.8) k/uL Chloride 108 H (98-107) mmol/L Carbon Dioxide 21 L (22-30) mmol/L BUN 42 H (7-17) mg/dL Creatinine 1.91 H (0.52-1.04) mg/dL Glucose 104 H (74-99) mg/dL POC Glucose (mg/dL) 168 H (70-110) mg/dL
--- NOTE | 2023-08-24 06:39 | P.DS ---
Providers Date of admission: 08/18/23 20:32 Expected date of discharge: 08/23/23 Attending physician: Brisa Wood MD Consults: 08/18/23 20:30 Consult Physician Urgent Consulting Provider: Rhett Mcelroy Consult Reason/Comments: New onset atrial fibrillation with RVR, elevated troponin Do you want consulting provider notified?: Yes 08/20/23 12:51 Consult Physician Routine Consulting Provider: Tom Ramos Consult Reason/Comments: Skin lesions concerning for scabies Do you want consulting provider notified?: Yes Primary care physician: Luis Moe [place] [facility] Course: Final diagnosis New onset A. fib flutter/fibrillation with fast ventricular rate Acute NSTEMI, 1 Left lower extremity cellulitis, present on admission History of diabetes mellitus, type II Hypertension history GI prophylaxis DVT prophylaxis Full code Discharge disposition Patient is being discharged in a stable condition with guarded prognosis to home. Patient will follow-up with Dr. Moe in the outpatient setting upon discharge. Patient is to continue with oral Keflex 500 mg 3 times daily for 1 week close outpatient follow-up with infectious disease as well as cardiology as scheduled. Total time taken is greater than 35 minutes. Hospital course This is a 83-year-old female who was recently admitted with new onset A. fib with RVR also with concerns of left lower extremity cellulitis. Patient has been seen and evaluated by cardiology and adjust list of medications including adding anticoagulation and currently rate controlled recommending close outpatient follow-up. Patient also seen and evaluated by infectious disease initially started on antibiotics although patient had been refusing and feeling that her left lower extremity itching was possibly due to scabies. Patient was given a dose of ivermectin and recommending outpatient follow-up with infectious disease. Patient to continue with Domo wrapping to the left lower extremity and calamine lotion 3 times a day and avoid itching and scratching the area. Patient has been cleared by consultations for discharge. Please refer to other consultation notes for further HPI. Currently no reports of chest pain, fabian rtness of breath, or palpitations. Patient is afebrile. No reports of nausea or vomiting and patient is tolerating diet. Patient will be discharged home today. Guarded prognosis At high risk for readmission given patient's noncompliance and significant comorbidities. Physical exam: Gen: This is a 83-year-old female who is awake, alert and oriented 3, thin built, elderly appearing HEENT: Head is atraumatic, normocephalic. Pupils equal, round. Sclerae is anicteric. NECK: Supple. No JVD. No lymphadenopathy. No thyromegaly. LUNGS: Clear to auscultation. No wheezes or rhonchi. No intercostal retractions. HEART: Regular rate and rhythm. No murmur. ABDOMEN: Soft. Bowel sounds are present. No masses. No tenderness. EXTREMITIES: No pedal edema. No calf tenderness. Left lower extremity currently wrapped in Domo wrap with no significant swelling or redness noted NEUROLOGICAL: Patient is awake, alert and oriented x3. Cranial nerves 2 through 12 are grossly intact. Please refer to medication reconciliation sheet for a list of medications. The impression and plan of care has been dictated by Ivy Araya, Nurse Practitioner as directed. Dr. Yogi MD I have performed a history and examination and MDM of this patient, discussed the same with the dictator, and agree with the dictator's assessment and plan as written ,documented as a scribe. Based on total visit time, I have performed more than 50% of the visit. Patient Condition at Discharge: Stable Plan - Discharge Summary Discharge Rx Participant: Yes New Discharge Prescriptions: New Apixaban [Eliquis] 2.5 mg PO BID 30 Days #60 tab Cephalexin [Keflex] 500 mg PO Q8HR 7 Days #21 cap Acetaminophen Tab [Tylenol] 650 mg PO Q6HR PRN tab PRN Reason: Mild Pain Or Fever > 100.5 Calamine/Zinc Oxide Lotion [Calamine Lotion] 1 applic TOPICAL TID PRN 30 Days #1 each PRN Reason: Skin Irritation Atorvastatin [Lipitor] 20 mg PO DAILY #30 tab Metoprolol Succinate (ER) [Toprol XL] 100 mg PO BID 30 Days #60 tab Continue Levothyroxine Sodium 25 mcg PO DAILY Semaglutide [Rybelsus] 7 mg PO DAILY Psyllium Husk [Fiber Capsule] 3.2 gm PO BID Discontinued Valsartan 320 mg PO DAILY amLODIPine [Norvasc] 5 mg PO DAILY #90 tab Discharge Medication List Levothyroxine Sodium 25 mcg PO DAILY 06/28/22 [History] Psyllium Husk [Fiber Capsule] 3.2 gm PO BID 08/18/23 [History] Semaglutide [Rybelsus] 7 mg PO DAILY 08/18/23 [History] Acetaminophen Tab [Tylenol] 650 mg PO Q6HR PRN tab 08/23/23 [Rx] Apixaban [Eliquis] 2.5 mg PO BID 30 Days #60 tab 08/23/23 [Rx] Atorvastatin [Lipitor] 20 mg PO DAILY #30 tab 08/23/23 [Rx] Calamine/Zinc Oxide Lotion [Calamine Lotion] 1 applic TOPICAL TID PRN 30 Days #1 each 08/23/23 [Rx] Cephalexin [Keflex] 500 mg PO Q8HR 7 Days #21 cap 08/23/23 [Rx] Metoprolol Succinate (ER) [Toprol XL] 100 mg PO BID 30 Days #60 tab 08/23/23 [Rx] Follow up Appointment(s)/Referral(s): Miguel Ram MD [Medical Doctor] - 1 Week (please call to schedule appt tell them you were discharged 08/23) Luis Moe DO [Primary Care Provider] - 1-2 days (please call to schedule appt tell them you were discharged 08/23) Tom Ramos MD [STAFF PHYSICIAN] - 1 Week (please call to schedule appt tell them you were discharged 08/23) Ambulatory/Diagnostic Orders: Basic Metabolic Panel [LAB.AMB] Time Frame: 3 Days, Location: None Selected Patient Instructions/Handouts: Ivermectin (By mouth), A-fib (Atrial Fibrillation) (DC), Cellulitis (ED) Activity/Diet/Wound Care/Special Instructions: Activity Limited until follow-up Follow-up with primary care provider on discharge Follow-up with infectious disease outpatient in 1-2 weeks Continue calamine lotion 3 times daily to lower extremities and avoid itching or scratching Elevate lower extremities while at rest Follow-up with cardiology outpatient Continue taking all of her medications as prescribed Repeat labs in 2-3 days to monitor kidney functions Follow heart healthy low potassium, diabetic diet Discharge Disposition: HOME SELF-CARE
== END 2023-08-23 15:49 | disposition home or self-care (01) | DRG 281 ==
LOC: EC 17:49 → 3SCARD 20:32
PROVIDERS: ADMIT Internal Medicine; ATTEND Internal Medicine
DX: I21.4 Non-ST elevation (NSTEMI) myocardial infarction (principal); I13.0 Hypertensive heart and chronic kidney disease with heart failure and stage 1 through stage 4 chronic kidney disease, or unspecified chronic kidney disease; L03.115 Cellulitis of right lower limb; L03.116 Cellulitis of left lower limb; N17.9 Acute kidney failure, unspecified; I48.92 Unspecified atrial flutter; I48.91 Unspecified atrial fibrillation; E11.22 Type 2 diabetes mellitus with diabetic chronic kidney disease; E11.51 Type 2 diabetes mellitus with diabetic peripheral angiopathy without gangrene; I87.2 Venous insufficiency (chronic) (peripheral); E03.9 Hypothyroidism, unspecified; D64.9 Anemia, unspecified; I08.1 Rheumatic disorders of both mitral and tricuspid valves; Z79.890 Hormone replacement therapy; N18.9 Chronic kidney disease, unspecified; I47.9 Paroxysmal tachycardia, unspecified; I10 Essential (primary) hypertension; E78.5 Hyperlipidemia, unspecified; W57.XXXA Bitten or stung by nonvenomous insect and other nonvenomous arthropods, initial encounter; Z79.01 Long term (current) use of anticoagulants; Z79.84 Long term (current) use of oral hypoglycemic drugs; Z83.3 Family history of diabetes mellitus; Z85.42 Personal history of malignant neoplasm of other parts of uterus; Z79.899 Other long term (current) drug therapy; Z82.49 Family history of ischemic heart disease and other diseases of the circulatory system; Z91.199 Patient's noncompliance with other medical treatment and regimen due to unspecified reason; Z98.42 Cataract extraction status, left eye; Z98.41 Cataract extraction status, right eye; Z90.49 Acquired absence of other specified parts of digestive tract
CPT/HCPCS: 36415; 71046; 80048; 80053; 83036; 83735; 83880; 84439; 84443; 84484; 85025; 85027; 85610; 85730; 86060; 86140; 93005; 93306; 96365; 96366; 96367; 96375; 96376; 99291

== ENCOUNTER 2023-09-06 19:25 | Inpatient (IN) | payer MEDICARE ==
--- NOTE | 2023-09-06 19:40 | ED ---
General Adult HPI - General Source: patient Mode of arrival: ambulatory Limitations: no limitations <Valerie Mendes - Last Filed: 09/06/23 19:40> <Nabil Gunderson - Last Filed: 09/07/23 00:53> - General Stated complaint: Increased Heart Rate Time Seen by Provider: 09/06/23 19:40 - History of Present Illness Initial comments: 83-year-old female history of A. fib RVR presenting with chief complaint of elevated heart rate. She was instructed to come to the ER by Dr. Moe. No chest pain or difficulty breathing (Valerie Mendes) Patient sent in from primary for elevated heart rate, history of atrial fib rillation as well as increased fluid retention. Patient has had increased bilateral lower extremity swelling and very mild exertional dyspnea. No fever. No chest pain (Nabil Gunderson) - Related Data Home Medications Medication Instructions Recorded Confirmed Levothyroxine Sodium 25 mcg PO DAILY 06/28/22 08/18/23 Psyllium Husk [Fiber Capsule] 3.2 gm PO BID 08/18/23 08/18/23 Semaglutide [Rybelsus] 7 mg PO DAILY 08/18/23 08/18/23 Previous Rx's Medication Instructions Recorded Acetaminophen Tab [Tylenol] 650 mg PO Q6HR PRN tab 08/23/23 Apixaban [Eliquis] 2.5 mg PO BID 30 Days #60 tab 08/23/23 Atorvastatin [Lipitor] 20 mg PO DAILY #30 tab 08/23/23 Calamine/Zinc Oxide Lotion 1 applic TOPICAL TID PRN 30 Days 08/23/23 [Calamine Lotion] #1 each Cephalexin [Keflex] 500 mg PO Q8HR 7 Days #21 cap 08/23/23 Metoprolol Succinate (ER) [Toprol 100 mg PO BID 30 Days #60 tab 08/23/23 XL] Allergies Allergy/AdvReac Type Severity Reaction Status Date / Time bacitracin Allergy Rash/Hives Verified 09/06/23 19:40 [From Neosporin ([id number])] ibuprofen Allergy Anaphylaxis Verified 09/06/23 19:40 & Rash all over neomycin Allergy Rash/Hives Verified 09/06/23 19:40 [From Neosporin ([id number])] polymyxin B Allergy Rash/Hives Verified 09/06/23 19:40 [From Neosporin ([id number])] Review of Systems ROS Other: All systems not noted in ROS Statement are negative. <Valerie Mendes - Last Filed: 09/06/23 19:40> ROS Other: All systems not noted in ROS Statement are negative. <Nabil Gunderson - Last Filed: 09/07/23 00:53> ROS Statement: Those systems with pertinent positive or pertinent negative responses have been documented in the HPI. Past Medical History Past Medical History: Atrial Fibrillation, Diabetes Mellitus, Hypertension, Osteoarthritis (OA) Additional Past Medical History / Comment(s): uterine cancer, incontinent of urine History of Any Multi-Drug Resistant Organisms: None Reported Past Surgical History: No Surgical Hx Reported Additional Past Surgical History / Comment(s): cataract & carpal-tunnel bilat. Past Anesthesia/Blood Transfusion Reactions: No Reported Reaction Past Psychological History: No Psychological Hx Reported Smoking Status: Never smoker Past Alcohol Use History: None Reported Past Drug Use History: None Reported - Past Family History Mother Family Medical History: Coronary Artery Disease (CAD), Diabetes Mellitus, Hypertension, Mitral Valve Prolapse (MVP) Father Family Medical History: Hypertension Additional Family Medical History / Comment(s): father hip surgery <Valerie Mendes - Last Filed: 09/06/23 19:40> General Exam Limitations: no limitations <Valerie Mendes - Last Filed: 09/06/23 19:40> General appearance: alert, in no apparent distress Head exam: Present: atraumatic, normocephalic Eye exam: Present: normal appearance, PERRL ENT exam: Present: normal exam Neck exam: Present: normal inspection. Absent: meningismus Respiratory exam: Present: rales. Absent: respiratory distress Cardiovascular Exam: Present: tachycardia, irregular rhythm GI/Abdominal exam: Present: soft. Absent: distended, tenderness Extremities exam: Present: pedal edema Neurological exam: Present: alert, oriented X3 Psychiatric exam: Present: normal affect, normal mood <Nabil Gunderson - Last Filed: 09/07/23 00:53> - General Exam Comments Initial Comments: Visual Physical Exam Vital signs reviewed General: Well-appearing, nontoxic, no acute distress. Head: Normocephalic, atraumatic Eyes: PERRLA, EOMI ENT: Airway patent Chest: Nonlabored breathing Skin: No visual rash, normal skin tone Neuro: Alert and oriented 3 Musculoskeletal: No gross abnormalities (Valerie Mendes) Course Vital Signs 09/06/23 19:32 Temperature 98.0 F Pulse Rate 118 H Respiratory 20 Rate Blood Pressure 124/77 O2 Sat by Pulse 99 Oximetry Medical Decision Making - Lab Data Result diagrams: 09/06/23 21:00 09/06/23 21:00 <Nabil Gunderson N - Last Filed: 09/07/23 00:53> - Medical Decision Making Was pt. sent in by a medical professional or institution (, PA, LITHOGRAPHIC PRINTING MACHINIST, urgent care, hospital, or prison...) When possible be specific @ -No Did you speak to anyone other than the patient for history (EMS, parent, family, police, friend...)? What history was obtained from this source @ -No Did you review nursing and triage notes (agree or disagree)? Why? @ -I reviewed and agree with nursing and triage notes Were old charts reviewed (outside hosp., previous admission, EMS record, old EKG, old radiological studies, urgent care reports/EKG's, prison records)? Report findings @ -No old charts were reviewed Differential Diagnosis (chest pain, altered mental status, abdominal pain women, abdominal pain men, vaginal bleeding, weakness, fever, dyspnea, syncope, headache, dizziness, GI bleed, back pain, seizure, CVA, palpatations, mental health, musculoskeletal)? @ -Differential Palpitations Ventricular arrhythmias, atrial arrhythmias, myocardial infarction, anemia, thyrotoxicosis, electrolyte imbalance, hypokalemia, pulmonary embolism, pulmonary disease, drugs, alcohol, anxiety, stress.... This is not meant to be an all-inclusive list. EKG interpreted by me (3pts min.). @A 2 fibrillation with RVR rate of 100, QRS duration 100, QTC 404, no ST segment elevation. X-rays interpreted by me (1pt min.). @Pulmonary vascular congestion consistent with CHF on chest x-ray CT interpreted by me (1pt min.). @ -None done U/S interpreted by me (1pt. min.). @ -None done What testing was considered but not performed or refused? (CT, X-rays, U/S, labs)? Why? @ -None What meds were considered but not given or refused? Why? @ -None Did you discuss the management of the patient with other professionals (professionals i.e. , PA, LITHOGRAPHIC PRINTING MACHINIST, lab, RT, psych nurse, oncology social work, sales and marketing representative, teacher, custom protection officer, case monitor)? Give summary @ -[EMH Was smoking cessation discussed for >3mins.? @ -No Was critical care preformed (if so, how long)? @ -No Were there social determinants of health that impacted care today? How? (Homelessness, low income, unemployed, alcoholism, drug addiction, transportation, low edu. Level, literacy, decrease access to med. care, usp, rehab)? @ -No Was there de-escalation of care discussed even if they declined (Discuss DNR or withdrawal of care, Hospice)? DNR status @ -No What co-morbidities impacted this encounter? (DM, HTN, Smoking, COPD, CAD, Cancer, CVA, ARF, Chemo, Hep., AIDS, mental health diagnosis, sleep apnea, morbid obesity)? @Atrial fibrillation, CHF Was patient admitted / discharged? Hospital course, mention meds given and route, prescriptions, significant lab abnormalities, going to OR and other pertinent info. @ -83-year-old female sent in from primary care with tachycardia, increased fluid retention. She has a significantly elevated BNP at 12,000. Chest x-ray confirming CHF. She is in atrial fibrillation with a rate around 100. She will be admitted for IV diuresis and cardiology consultation. Undiagnosed new problem with uncertain prognosis? @ -No Drug Therapy requiring intensive monitoring for toxicity (Heparin, Nitro, Insulin, Cardizem)? @ -No Were any procedures done? @ -No Diagnosis/symptom? @CHF, atrial fibrillation Acute, or Chronic, or Acute on Chronic? @Acute on chronic Uncomplicated (without systemic symptoms) or Complicated (systemic symptoms)? @ -default Side effects of treatment? @ -No Exacerbation, Progression, or Severe Exacerbation? @ -No Poses a threat to life or bodily function? How? (Chest pain, [place], ND, pneumonia, PE, COPD, DKA, ARF, appy, cholecystitis, CVA, Diverticulitis, Homicidal, Suicidal, threat to staff... and all critical care pts) @yes, CHF, arrhythmia (HelmreichNabil) - Lab Data Lab Results 09/06/23 09/06/23 09/06/23 Range/Units 21:00 21:00 21:00 WBC 5.6 (3.8-10.6) k/uL RBC 3.39 L (3.80-5.40) m/uL Hgb 9.4 L (11.4-16.0) gm/dL Hct 29.8 L (34.0-46.0) % MCV 88.0 (80.0-100.0) fL MCH 27.8 (25.0-35.0) pg MCHC 31.7 (31.0-37.0) g/dL RDW 15.6 H (11.5-15.5) % Plt Count 282 (150-450) k/uL MPV 7.3 Neutrophils % 73 % Lymphocytes % 16 % Monocytes % 6 % Eosinophils % 3 % Basophils % 1 % Neutrophils # 4.1 (1.3-7.7) k/uL Lymphocytes # 0.9 L (1.0-4.8) k/uL Monocytes # 0.3 (0-1.0) k/uL Eosinophils # 0.1 (0-0.7) k/uL Basophils # 0.0 (0-0.2) k/uL Hypochromasia Slight PT 10.8 (10.0-12.5) sec INR 1.0 (<1.2) APTT 25.6 (22.0-30.0) sec Sodium 140 (137-145) mmol/L Potassium 4.5 (3.5-5.1) mmol/L Chloride 107 (98-107) mmol/L Carbon Dioxide 22 (22-30) mmol/L Anion Gap 11 mmol/L BUN 39 H (7-17) mg/dL Creatinine 1.82 H (0.52-1.04) mg/dL Est GFR (CKD-EPI)AfAm 30 (>60 ml/min/1.73 sqM) Est GFR (CKD-EPI)NonAf 26 (>60 ml/min/1.73 sqM) Glucose 163 H (74-99) mg/dL Calcium 8.7 (8.4-10.2) mg/dL Magnesium 2.0 (1.6-2.3) mg/dL Total Bilirubin 0.4 (0.2-1.3) mg/dL AST 32 (14-36) U/L ALT 50 H (4-34) U/L Alkaline Phosphatase 111 (38-126) U/L Troponin I (0.000-0.034) ng/mL NT-Pro-B Natriuret Pep pg/mL Total Protein 7.2 (6.3-8.2) g/dL Albumin 3.6 (3.5-5.0) g/dL 09/06/23 09/06/23 09/06/23 Range/Units 21:00 22:00 22:53 WBC (3.8-10.6) k/uL RBC (3.80-5.40) m/uL Hgb (11.4-16.0) gm/dL Hct (34.0-46.0) % MCV (80.0-100.0) fL MCH (25.0-35.0) pg MCHC (31.0-37.0) g/dL RDW (11.5-15.5) % Plt Count (150-450) k/uL MPV Neutrophils % % Lymphocytes % % Monocytes % % Eosinophils % % Basophils % % Neutrophils # (1.3-7.7) k/uL Lymphocytes # (1.0-4.8) k/uL Monocytes # (0-1.0) k/uL Eosinophils # (0-0.7) k/uL Basophils # (0-0.2) k/uL Hypochromasia PT (10.0-12.5) sec INR (<1.2) APTT (22.0-30.0) sec Sodium (137-145) mmol/L Potassium (3.5-5.1) mmol/L Chloride (98-107) mmol/L Carbon Dioxide (22-30) mmol/L Anion Gap mmol/L BUN (7-17) mg/dL Creatinine (0.52-1.04) mg/dL Est GFR (CKD-EPI)AfAm (>60 ml/min/1.73 sqM) Est GFR (CKD-EPI)NonAf (>60 ml/min/1.73 sqM) Glucose (74-99) mg/dL Calcium (8.4-10.2) mg/dL Magnesium (1.6-2.3) mg/dL Total Bilirubin (0.2-1.3) mg/dL AST (14-36) U/L ALT (4-34) U/L Alkaline Phosphatase (38-126) U/L Troponin I <0.012 0.012 (0.000-0.034) ng/mL NT-Pro-B Natriuret Pep 32210 pg/mL Total Protein (6.3-8.2) g/dL Albumin (3.5-5.0) g/dL Disposition <Valerie Mendes - Last Filed: 09/06/23 19:40> Is patient prescribed a controlled substance at d/c from ED?: No Time of Disposition: 00:53 <Nabil Gunderson - Last Filed: 09/07/23 00:53> Clinical Impression: Atrial fibrillation, CHF (congestive heart failure) Disposition: ADMITTED IP TO THIS HOSP Condition: Stable Referrals: Luis Moe DO [Primary Care Provider] - 1-2 days
--- NOTE | 2023-09-06 19:57 | XR ---
EXAMINATION TYPE: XR chest 2V DATE OF EXAM: 09/06/2023 7:51 PM CLINICAL INDICATION:Female, 83 years old with history of dysrhythmia; [facility] COMPARISON: Chest radiographs from 08/18/2023 TECHNIQUE: XR chest 2V Frontal and lateral views of the chest. FINDINGS: Lungs/Pleura: There is flattening of the diaphragm with increased lucency of the lungs. No evidence o f pneumothorax, pleural effusion or focal consolidation. Pulmonary vascularity: Mild pulmonary vascular congestion. Heart/mediastinum: Cardiomediastinal silhouette is enlarged and stable. Musculoskeletal: No acute osseous pathology. IMPRESSION: Cardiomegaly and mild pulmonary vascular congestion. Correlate with BNP for congestive heart failure. COPD changes.
[2023-09-06 21:29] LABS: Basophils % (A) 1 %; Eosinophils # (A) 0.1 k/uL (0-0.7); Eosinophils % (A) 3 %; HCT 29.8 % (34.0-46.0); HGB 9.4 gm/dL (11.4-16.0); Hypochromasia Slight; Lymphocytes # (A) 0.9 k/uL (1.0-4.8); Lymphocytes % (A) 16 %; MCH 27.8 pg (25.0-35.0); MCHC 31.7 g/dL (31.0-37.0); Mean Platelet Volume 7.3; Monocytes # (A) 0.3 k/uL (0-1.0); Monocytes % (A) 6 %; Neutrophils # (A) 4.1 k/uL (1.3-7.7); Neutrophils % (A) 73 %; Platelet Count 282 k/uL (150-450); RBC 3.39 m/uL (3.80-5.40); RDW 15.6 % (11.5-15.5); WBC 5.6 k/uL (3.8-10.6)
[2023-09-06 21:39] LABS: ALT 50 U/L (4-34); AST 32 U/L (14-36); African American GFR (CKD) 30 (>60 ml/min/1.73 sqM); Albumin 3.6 g/dL (3.5-5.0); Alkaline Phosphatase 111 U/L (38-126); Anion Gap 11 mmol/L; Blood Urea Nitrogen 39 mg/dL (7-17); Calcium 8.7 mg/dL (8.4-10.2); Carbon Dioxide 22 mmol/L (22-30); Chloride 107 mmol/L (98-107); Glucose 163 mg/dL (74-99); Non-African American GFR(CKD) 26 (>60 ml/min/1.73 sqM); Potassium 4.5 mmol/L (3.5-5.1); Sodium 140 mmol/L (137-145); Total Bilirubin 0.4 mg/dL (0.2-1.3); Total Protein 7.2 g/dL (6.3-8.2)
[2023-09-06 22:23] LABS: Partial Thromboplastin Time 25.6 sec (22.0-30.0); Prothrombin Time 10.8 sec (10.0-12.5)
[2023-09-07] MEDS ORDERED: FUROSEMIDE 10 MG/ML 4 ML VIAL IV STA (00:47)
[2023-09-07] MEDS ORDERED: NALOXONE 0.4 MG/ML 1 ML VIAL IV PRN (00:48)
[2023-09-07] MEDS ORDERED: diphenhydrAMINE 25 MG CAP PO STA (03:42)
[2023-09-07] MEDS: LEVOTHYROXINE 25 MCG TAB PO SCH (06:47)
[2023-09-07] MEDS: APIXABAN 2.5 MG TABLET PO SCH ×2 (08:19→20:31)
[2023-09-07] MEDS: ATORVASTATIN 20 MG TAB PO SCH (08:19)
[2023-09-07] MEDS ORDERED: METOPROLOL SUCCINATE (ER) 100 MG TAB.ER.24H PO SCH (09:00)
[2023-09-07] MEDS ORDERED: METOPROLOL SUCCINATE (ER) 50 MG TAB.ER.24H PO STA (09:34)
[2023-09-07] MEDS: FUROSEMIDE 10 MG/ML 4 ML VIAL IV SCH (09:48)
--- NOTE | 2023-09-07 10:32 | P.CRDCN ---
History of Present Illness History of present illness: HISTORY OF PRESENT ILLNESS: This is a 83-year-old female with a past medical history significant for hypertension, hyperlipidemia, chronic lower extremity edema, and atrial fibrillation. Patient follows in the office with Dr. Gallardo. We have been asked to see the patient in consultation for CHF and atrial fibrillation. Patient examined at the bedside. Patient was sent to the ER by her primary care physician secondary to tachycardia. She was found to be in afib with RVR. She remains in afib with RVR. She remains in atrial fibrillation with heart rate around 100 at time of examination. She denies chest pain or pressure. She denies SOB. She states she was recently on antibiotics for lower extremity cellulitis but stopped taking it due to worsening diarrhea. * EKG reveals atrial fibrillation with a heart rate around 100. No signs of acute ischemia. * Chest xray cardiomegaly and mild pulmonary vascular congestion. COPD changes. * Laboratory data: Hemoglobin 9.4. BUN 39. Creatinine 1.82. Troponin negative 2. ProBNP 12,500. * Current home cardiac medications include Eliquis 2.5 mg twice a day and metoprolol succinate 100 mg twice a day * Most recent echocardiogram obtained in July 2023 revealed ejection fraction 55-60%, mild pulmonary hypertension, and mild to moderate MR * Patient underwent Lexiscan stress test in June 2022 revealing abnormal nuclear scan showing ischemia involving inferior lateral wall REVIEW OF SYSTEMS: At the time of my exam: CONSTITUTIONAL: Denies fever or chills. HEENT: Denies blurred vision, vision changes, or eye pain. Denies hemoptysis CARDIOVASCULAR: Denies chest pain. Denies orthopnea. Denies PND. Denies palpitations RESPIRATORY: Denies shortness of breath. GASTROINTESTINAL: Denies abdominal pain. Denies nausea or vomiting. HEMATOLOGIC: Denies bleeding disorders. GENITOURINARY: Denies any blood in urine. SKIN: Denies pruitis. Denies rash. PHYSICAL EXAM: VITAL SIGNS: Reviewed. GENERAL: Well-developed in no acute distress. HEENT: Head is normocephalic. Pupils are equal, round. Sclerae anicteric. Mucous membranes of the mouth are moist. Neck supple. No JVD or thyromegaly LUNGS: Respirations even and unlabored. Lungs essentially clear to auscultation bilaterally. HEART: Irregular rate and rhythm. S1 and S2 heard. Systolic murmur noted. ABDOMEN: Soft. Nondistended. Nontender. EXTREMITIES: Normal range of motion. No clubbing or cyanosis. Peripheral pulses intact. 3+ bilateral lower extremity edema with significant left lower extremity erythema concerning for cellulitis. NEUROLOGIC: Awake and alert. Oriented x 3. ASSESSMENT: Paroxysmal atrial fibrillation with RVR Left lower extremity cellulitis Acute heart failure with preserved ejection fraction, 55-60%, proBNP 12,500 Hypertension Hyperlipidemia Chronic kidney disease Abnormal stress test in June 2022 revealing inferior lateral reversibility Chronic diarrhea with history of IBS PLAN: No need to repeat echocardiogram at this time as this was performed in July 2023 Resume home cardiac medications Increase metoprolol to 150 mg twice a day Continue telemetry monitoring Begin IV Lasix 40 mg daily Recommend treatment for left lower extremity cellulitis. Will defer to internal medicine Continue with rate control this time. Will consider rhythm control with amiodarone or cardioversion if needed. Further recommendations pending patient's course Nurse practitioner note has been reviewed by physician. Signing provider agrees with the documented findings, assessment, and plan of care. Past Medical History Past Medical History: Atrial Fibrillation, Diabetes Mellitus, Hypertension, Osteoarthritis (OA) Additional Past Medical History / Comment(s): uterine cancer, incontinent of urine History of Any Multi-Drug Resistant Organisms: None Reported Past Surgical History: No Surgical Hx Reported Additional Past Surgical History / Comment(s): cataract & carpal-tunnel bilat. Past Anesthesia/Blood Transfusion Reactions: No Reported Reaction Past Psychological History: No Psychological Hx Reported Smoking Status: Never smoker Past Alcohol Use History: None Reported Past Drug Use History: None Reported - Past Family History Mother Family Medical History: Coronary Artery Disease (CAD), Diabetes Mellitus, Hypertension, Mitral Valve Prolapse (MVP) Father Family Medical History: Hypertension Additional Family Medical History / Comment(s): father hip surgery Medications and Allergies Home Medications Medication Instructions Recorded Confirmed Type Levothyroxine Sodium 25 mcg PO DAILY 06/28/22 09/07/23 History Psyllium Husk [Fiber Capsule] 3.2 gm PO BID 08/18/23 09/07/23 History Apixaban [Eliquis] 2.5 mg PO BID 30 Days #60 tab 08/23/23 09/07/23 Rx Metoprolol Succinate (ER) [Toprol 100 mg PO BID 30 Days #60 tab 08/23/23 09/07/23 Rx XL] Allergies Allergy/AdvReac Type Severity Reaction Status Date / Time bacitracin Allergy Rash/Hives Verified 09/07/23 07:21 [From Neosporin ([id number])] ibuprofen Allergy Anaphylaxis Verified 09/07/23 07:21 & Rash all over neomycin Allergy Rash/Hives Verified 09/07/23 07:21 [From Neosporin ([id number])] polymyxin B Allergy Rash/Hives Verified 09/07/23 07:21 [From Neosporin ([id number])] Physical Exam Vitals: Vital Signs Temp Pulse Pulse Resp BP Pulse Ox 09/07/23 08:18 98.5 F 88 18 135/79 98 09/07/23 07:00 96.4 F L 104 H 21 125/79 97 09/07/23 06:00 92 21 120/65 09/07/23 05:00 98.2 F 96 22 121/73 99 09/07/23 04:00 97 22 117/59 99 09/07/23 03:00 108 H 17 127/72 100 09/07/23 02:00 117 H 21 130/81 99 09/07/23 01:17 92 15 125/89 100 09/07/23 01:15 92 09/06/23 19:32 98.0 F 118 H 20 124/77 99 Intake and Output 09/06/23 09/07/23 09/07/23 22:59 06:59 14:59 Output Total 1200 Balance -1200 Output: Urine 1200 Other: Weight 59.874 kg Results 09/06/23 21:00 09/06/23 21:00 Cardiac Enzymes 09/06/23 09/06/23 09/06/23 Range/Units 21:00 21:00 22:53 AST 32 (14-36) U/L Troponin I <0.012 0.012 (0.000-0.034) ng/mL Coagulation 09/06/23 Range/Units 21:00 PT 10.8 (10.0-12.5) sec APTT 25.6 (22.0-30.0) sec CBC 09/06/23 Range/Units 21:00 WBC 5.6 (3.8-10.6) k/uL RBC 3.39 L (3.80-5.40) m/uL Hgb 9.4 L (11.4-16.0) gm/dL Hct 29.8 L (34.0-46.0) % Plt Count 282 (150-450) k/uL Comprehensive Metabolic Panel 09/06/23 Range/Units 21:00 Sodium 140 (137-145) mmol/L Potassium 4.5 (3.5-5.1) mmol/L Chloride 107 (98-107) mmol/L Carbon Dioxide 22 (22-30) mmol/L BUN 39 H (7-17) mg/dL Creatinine 1.82 H (0.52-1.04) mg/dL Glucose 163 H (74-99) mg/dL Calcium 8.7 (8.4-10.2) mg/dL AST 32 (14-36) U/L ALT 50 H (4-34) U/L Alkaline Phosphatase 111 (38-126) U/L Total Protein 7.2 (6.3-8.2) g/dL Albumin 3.6 (3.5-5.0) g/dL Current Medications Generic Name Dose Route Start Last Admin Trade Name Freq PRN Reason Stop Dose Admin Apixaban 2.5 mg 09/07/23 09:00 09/07/23 08:19 Apixaban 2.5 Mg Tablet PO 2.5 mg BID NERISSA Administration Protocol Atorvastatin Calcium 20 mg 09/07/23 09:00 09/07/23 08:19 Atorvastatin 20 Mg Tab PO 20 mg DAILY NERISSA Administration Levothyroxine Sodium 25 mcg 09/07/23 06:30 09/07/23 06:47 Levothyroxine 25 Mcg Tab PO 25 mcg DAILY@0630 NERISSA Administration Metoprolol Succinate 100 mg 09/07/23 09:00 09/07/23 08:19 Metoprolol Succinate (Er) 100 Mg Tab.Er.24h PO 100 mg BID NERISSA Administration Naloxone HCl 0.2 mg 09/07/23 00:48 Naloxone 0.4 Mg/Ml 1 Ml Vial IV Q2M PRN Opioid Reversal Intake and Output 09/06/23 09/07/23 09/07/23 22:59 06:59 14:59 Output Total 1200 Balance -1200 Output: Urine 1200 Other: Weight 59.874 kg 09/06/23 21:00 09/06/23 21:00
[2023-09-07] MEDS ORDERED: ONDANSETRON 4 MG/2 ML VIAL IVP PRN (14:58)
[2023-09-07] MEDS ORDERED: ACETAMINOPHEN TAB 325 MG TAB PO PRN (14:58)
--- NOTE | 2023-09-07 15:06 | P.HPIM ---
History of Present Illness H&P Date: 09/07/23 This is an 83 year old female with medical history of diabetes mellitus type 2, hypertension, hypothyroidism, chronic lower extremity edema, venous insufficiency present to the emergency department sent in from PCP office for lower extremity edema and heart rate in the 130s revealing atrial fibrillation with RVR on EKG. Patients does admit to having palpiations and racing heart at home but denies any chest pain, denies shortness of breath. No fever or chills. Patient was recently admitted to the hospital a few weeks ago with new onset atrial fibrillation was in RVR at that time, and had evidence of lower extremity cellulitis of the left leg was evaluated by ID and discharged on oral keflex. Echocardiogram in July of 2023 shows normal LV systolic function and mild to moderate mitral regurgitation. Patient was discharged also on eliquis and metoprolol. On admission patient is found to be in afib RVR. Chest xray reveals cardiomegaly and pulmonary venous congestion. Correlate with BNP for congestive heart failure. COPD changes. Patient reports incontinence of loose stool multiple episodes worsened by antibiotic use. Does not want any antibiotics at this time. She was admitted to the hospital with cardiology consultation. Was given a dose of [place] [id number], troponin negative x 3, BUN 39, creatinine 1.82, hemoglobin 9.4. REVIEW OF SYSTEMS: CONSTITUTIONAL: No fever, no malaise, no fatigue. HEENT: No recent visual problems or hearing problems. Denied any sore throat. CARDIOVASCULAR: No chest pain, orthopnea, PND, no palpitations, no syncope. PULMONARY: No shortness of breath, no cough, no hemoptysis. GASTROINTESTINAL: Reports diarrhea, no nausea, no vomiting, no abdominal pain. NEUROLOGICAL: No headaches, no weakness, no numbness. HEMATOLOGICAL: Denies any bleeding or petechiae. GENITOURINARY: Denies any burning micturition, frequency, or urgency. MUSCULOSKELETAL/RHEUMATOLOGICAL: Denies any joint pain, swelling, or any muscle pain. ENDOCRINE: Denies any polyuria or polydipsia. The rest of the 14-point review of systems is negative. PHYSICAL EXAMINATION: GENERAL: The patient is alert and oriented x3, not in any acute distress. Well developed, well nourished. HEENT: Pupils are round and equally reacting to light. EOMI. No scleral icterus. No conjunctival pallor. Normocephalic, atraumatic. No pharyngeal erythema. No thyromegaly. CARDIOVASCULAR: S1 and S2 present. No murmurs, rubs, or gallops. PULMONARY: Chest is clear to auscultation, no wheezing or crackles. ABDOMEN: Soft, nontender, nondistended, normoactive bowel sounds. No palpable organomegaly. MUSCULOSKELETAL: No joint swelling or deformity. EXTREMITIES: No cyanosis, clubbing, or pedal edema. NEUROLOGICAL: Gross neurological examination did not reveal any focal deficits. SKIN: No rashes. Assessment and Plan -Atrial fibrillation with RVR on admission was new onset back in July currently anticoagulated with eliquis which will be continued at this time, patient has been evaluated by cardiology and resumed on home dosing of metoprolol heart rate is now improved continue with cardiac telemetry monitoring -Acute heart failure [place] [id number] started on IV lasix 40 mg Q12. Recommending to monitor intake and output. -Acute on chronic kidney injury prerenal from heart failure expected to improve with IV lasix repeat labs in AM -Diarrhea unclear etiology was on metamucil outpatient without improvement patient feels was worsened by antibiotics. Will check for C.dif and get antidiarrheals. -Left lower extremity cellulitis noncompliant without patient therapy was recently discharged with oral keflex. Will add IV cefazolin and consult infectious disease. -Diabetes Mellitus type 2 not on any oral diabetic agents or insulin outpatient will recommending while inpatient accuchecks ACHS and sliding scale insulin coverage. -Hypertension currently low normotensive -Hx of dyslipidemia resumed on lipitor home medication -Hypothyroidism recommending to continue current levothyroxine dosing TSH is within normal limits -Hx of peripheral vascular disease -Osteoarthritis -Hx of uterine cancer -Urinary incontinence GI prophylaxis DVT prophylaxis Full Code The impression and plan of care has been dictated by Tonya Vargas Nurse Practitioner as directed. Dr. Nitin MD I have performed a history and physical examination and medical decision making of this patient, discussed the same with the dictator, and agree with the dictators assessment and plan as written, documented as a scribe. Based on total visit time, I have performed more than 50% of this visit. Past Medical History Past Medical History: Atrial Fibrillation, Diabetes Mellitus, Hypertension, Osteoarthritis (OA) Additional Past Medical History / Comment(s): uterine cancer, incontinent of urine History of Any Multi-Drug Resistant Organisms: None Reported Past Surgical History: No Surgical Hx Reported Additional Past Surgical History / Comment(s): cataract & carpal-tunnel bilat. Past Anesthesia/Blood Transfusion Reactions: No Reported Reaction Past Psychological History: No Psychological Hx Reported Smoking Status: Never smoker Past Alcohol Use History: None Reported Past Drug Use History: None Reported - Past Family History Mother Family Medical History: Coronary Artery Disease (CAD), Diabetes Mellitus, Hypertension, Mitral Valve Prolapse (MVP) Father Family Medical History: Hypertension Additional Family Medical History / Comment(s): father hip surgery Medications and Allergies Home Medications Medication Instructions Recorded Confirmed Type Levothyroxine Sodium 25 mcg PO DAILY 06/28/22 09/07/23 History Psyllium Husk [Fiber Capsule] 3.2 gm PO BID 08/18/23 09/07/23 History Apixaban [Eliquis] 2.5 mg PO BID 30 Days #60 tab 08/23/23 09/07/23 Rx Metoprolol Succinate (ER) [Toprol 100 mg PO BID 30 Days #60 tab 08/23/23 09/07/23 Rx XL] Allergies Allergy/AdvReac Type Severity Reaction Status Date / Time bacitracin Allergy Rash/Hives Verified 09/07/23 07:21 [From Neosporin ([id number])] ibuprofen Allergy Anaphylaxis Verified 09/07/23 07:21 & Rash all over neomycin Allergy Rash/Hives Verified 09/07/23 07:21 [From Neosporin ([id number])] polymyxin B Allergy Rash/Hives Verified 09/07/23 07:21 [From Neosporin ([id number])] Physical Exam Vitals: Vital Signs Temp Pulse Pulse Resp BP Pulse Ox 09/07/23 09:20 102 H 16 131/78 97 09/07/23 08:18 98.5 F 88 18 135/79 98 09/07/23 07:00 96.4 F L 104 H 21 125/79 97 09/07/23 06:00 92 21 120/65 09/07/23 05:00 98.2 F 96 22 121/73 99 09/07/23 04:00 97 22 117/59 99 09/07/23 03:00 108 H 17 127/72 100 09/07/23 02:00 117 H 21 130/81 99 09/07/23 01:17 92 15 125/89 100 09/07/23 01:15 92 09/06/23 19:32 98.0 F 118 H 20 124/77 99 Intake and Output 09/06/23 09/07/23 09/07/23 22:59 06:59 14:59 Output Total 1200 Balance -1200 Output: Urine 1200 Other: Weight 59.874 kg Results CBC & Chem 7: 09/06/23 21:00 09/06/23 21:00 Labs: Abnormal Lab Results - Last 24 Hours (Table) 09/06/23 09/06/23 Range/Units 21:00 21:00 RBC 3.39 L (3.80-5.40) m/uL Hgb 9.4 L (11.4-16.0) gm/dL Hct 29.8 L (34.0-46.0) % RDW 15.6 H (11.5-15.5) % Lymphocytes # 0.9 L (1.0-4.8) k/uL BUN 39 H (7-17) mg/dL Creatinine 1.82 H (0.52-1.04) mg/dL Glucose 163 H (74-99) mg/dL ALT 50 H (4-34) U/L Assessment and Plan Time with Patient: Greater than 30
[2023-09-07] MEDS: PANTOPRAZOLE 40 MG/10 ML VIAL IVP SCH (15:44)
[2023-09-07 17:02] LABS: Glucose,Whole Blood 127 mg/dL (70-110)
[2023-09-07] MEDS: INSULIN ASPART (NovoLOG) 100 UNIT/ML VIAL SQ SCH ×2 (17:02→20:31)
[2023-09-07] MEDS: CHOLESTYRAMINE (WITH SUGAR) 4 GM PACKET PO SCH (20:06)
[2023-09-07 20:09] LABS: Glucose,Whole Blood 228 mg/dL (70-110)
[2023-09-07] MEDS: METOPROLOL SUCCINATE (ER) 50 MG TAB.ER.24H PO SCH (20:31)
[2023-09-07] MEDS: LOPERAMIDE 2 MG CAP PO SCH ×2 (20:31→20:32)
[2023-09-08 06:10] LABS: Glucose,Whole Blood 105 mg/dL (70-110)
[2023-09-08] MEDS: LEVOTHYROXINE 25 MCG TAB PO SCH (06:31)
[2023-09-08] MEDS: INSULIN ASPART (NovoLOG) 100 UNIT/ML VIAL SQ SCH ×4 (07:45→22:06)
[2023-09-08 07:46] LABS: African American GFR (CKD) 27 (>60 ml/min/1.73 sqM); Anion Gap 8 mmol/L; Blood Urea Nitrogen 44 mg/dL (7-17); Calcium 8.5 mg/dL (8.4-10.2); Carbon Dioxide 28 mmol/L (22-30); Chloride 104 mmol/L (98-107); Glucose 97 mg/dL (74-99); Magnesium 1.8 mg/dL (1.6-2.3); Non-African American GFR(CKD) 24 (>60 ml/min/1.73 sqM); Potassium 4.1 mmol/L (3.5-5.1); Sodium 140 mmol/L (137-145)
[2023-09-08] MEDS ORDERED: Magnesium Replacement Protocol 1 EACH MISC MISCELLANE PRN (08:23)
[2023-09-08] MEDS: PANTOPRAZOLE 40 MG/10 ML VIAL IVP SCH (08:58)
[2023-09-08] MEDS: CHOLESTYRAMINE (WITH SUGAR) 4 GM PACKET PO SCH ×2 (08:58→16:51)
[2023-09-08] MEDS: METOPROLOL SUCCINATE (ER) 50 MG TAB.ER.24H PO SCH ×2 (08:59→22:05)
[2023-09-08] MEDS: ATORVASTATIN 20 MG TAB PO SCH (08:59)
[2023-09-08] MEDS: LOPERAMIDE 2 MG CAP PO SCH ×4 (08:59→22:05)
[2023-09-08] MEDS: FUROSEMIDE 10 MG/ML 4 ML VIAL IV SCH (08:59)
[2023-09-08] MEDS: APIXABAN 2.5 MG TABLET PO SCH ×2 (08:59→22:05)
[2023-09-08] MEDS ORDERED: MAGNESIUM SULFATE-D5W PMX 1 GM in DEXTROSE/WATER 1 100ML.BAG IVPB ONE (09:30)
[2023-09-08 11:24] LABS: Glucose,Whole Blood 209 mg/dL (70-110)
--- NOTE | 2023-09-08 14:40 | P.PN ---
Subjective HISTORY OF PRESENT ILLNESS: This is a 83-year-old female with a past medical history significant for hypertension, hyperlipidemia, chronic lower extremity edema, and atrial fibrillation. Patient follows in the office with Dr. Gallardo. We have been asked to see the patient in consultation for CHF and atrial fibrillation. Patient examined at the bedside. Patient was sent to the ER by her primary care physician secondary to tachycardia. She was found to be in afib with RVR. She remains in afib with RVR. She remains in atrial fibrillation with heart rate around 100 at time of examination. She denies chest pain or pressure. She denies SOB. She states she was recently on antibiotics for lower extremity cellulitis but stopped taking it due to worsening diarrhea. * EKG reveals atrial fibrillation with a heart rate around 100. No signs of acute ischemia. * Chest xray cardiomegaly and mild pulmonary vascular congestion. COPD changes. * Laboratory data: Hemoglobin 9.4. BUN 39. Creatinine 1.82. Troponin negative 2. ProBNP 12,500. * Current home cardiac medications include Eliquis 2.5 mg twice a day and metoprolol succinate 100 mg twice a day * Most recent echocardiogram obtained in July 2023 revealed ejection fraction 55-60%, mild pulmonary hypertension, and mild to moderate MR * Patient underwent Lexiscan stress test in June 2022 revealing abnormal nuclear scan showing ischemia involving inferior lateral wall 09/08/2023 Patient examined this morning at the bedside. Patient currently denies chest pain or pressure. She reports improvement in her shortness of breath. Telemetry reveals atrial fibrillation with controlled ventricular rate. PHYSICAL EXAM: VITAL SIGNS: Reviewed. GENERAL: Well-developed in no acute distress. HEENT: Head is normocephalic. Pupils are equal, round. Sclerae anicteric. Mucous membranes of the mouth are moist. Neck supple. No JVD or thyromegaly LUNGS: Respirations even and unlabored. Lungs essentially clear to auscultation bilaterally. HEART: Irregular rate and rhythm. S1 and S2 heard. Systolic murmur noted. ABDOMEN: Soft. Nondistended. Nontender. EXTREMITIES: Normal range of motion. No clubbing or cyanosis. Peripheral pulses intact. 3+ bilateral lower extremity edema with significant left lower extremity erythema concerning for cellulitis. NEUROLOGIC: Awake and alert. Oriented x 3. ASSESSMENT: Paroxysmal atrial fibrillation with RVR Left lower extremity cellulitis Acute heart failure with preserved ejection fraction, 55-60%, proBNP 12,500 Hypertension Hyperlipidemia Chronic kidney disease Abnormal stress test in June 2022 revealing inferior lateral reversibility Chronic diarrhea with history of IBS PLAN: No need to repeat echocardiogram at this time as this was performed in July 2023 Continue current dose of metoprolol Continue telemetry monitoring Continue IV diuretics for an additional 24 hours Anticipate discharge home tomorrow if patient remains stable Nurse practitioner note has been reviewed by physician. Signing provider agrees with the documented findings, assessment, and plan of care. Objective - Vital Signs Vital signs: Vital Signs Temp 98.2 F 09/07/23 20:00 Pulse 82 09/08/23 04:00 Resp 17 09/08/23 04:00 BP 118/75 09/08/23 04:00 Pulse Ox 96 09/08/23 04:00 FiO2 Intake & Output 09/07/23 09/08/23 09/08/23 18:59 06:59 18:59 Output Total 1200 1400 Balance -1200 -1400 Output: Urine 1200 1400 Other: Voiding Method External Catheter - Labs CBC & Chem 7: 09/06/23 21:00 09/08/23 06:38 Labs: Abnormal Lab Results - Last 24 Hours (Table) 09/07/23 09/07/23 09/08/23 Range/Units 17:00 20:05 06:38 BUN 44 H (7-17) mg/dL Creatinine 1.94 H (0.52-1.04) mg/dL POC Glucose (mg/dL) 127 H 228 H (70-110) mg/dL
[2023-09-08 16:48] LABS: Glucose,Whole Blood 211 mg/dL (70-110)
[2023-09-08 20:28] LABS: Glucose,Whole Blood 162 mg/dL (70-110)
--- NOTE | 2023-09-08 20:44 | P.PN ---
Subjective Progress Note Date: 09/08/23 This is an 83 year old female with medical history of diabetes mellitus type 2, hypertension, hypothyroidism, chronic lower extremity edema, venous insufficiency present to the emergency department sent in from PCP office for lower extremity edema and heart rate in the 130s revealing atrial fibrillation with RVR on EKG. Patients does admit to having palpiations and racing heart at home but denies any chest pain, denies shortness of breath. No fever or chills. Patient was recently admitted to the hospital a few weeks ago with new onset atrial fibrillation was in RVR at that time, and had evidence of lower extremity cellulitis of the left leg was evaluated by ID and discharged on oral keflex. Echocardiogram in July of 2023 shows normal LV systolic function and mild to moderate mitral regurgitation. Patient was discharged also on eliquis and metoprolol. On admission patient is found to be in afib RVR. Chest xray reveals cardiomegaly and pulmonary venous congestion. Correlate with BNP for congestive heart failure. COPD changes. Patient reports incontinence of loose stool multiple episodes worsened by antibiotic use. Does not want any antibiotics at this time. She was admitted to the hospital with cardiology consultation. Was given a dose of [place] [address], troponin negative x 3, BUN 39, creatinine 1.82, hemoglobin 9.4. 09/08/2023 Patient is evaluated today sitting up in chair. Continues on IV cefazolin and IV lasix. ID and cardiology following. Has not had any diarrhea at this time. States she takes metamucil and imodium multiple times a day at home to prevent loose stools. Does not want to see a specialist even on any outpatient basis. States she does have IBS. Renal function stable with creatinine 1.94. REVIEW OF SYSTEMS: CONSTITUTIONAL: No fever, no malaise, no fatigue. HEENT: No recent visual problems or hearing problems. Denied any sore throat. CARDIOVASCULAR: No chest pain, orthopnea, PND, no palpitations, no syncope. PULMONARY: No shortness of breath, no cough, no hemoptysis. GASTROINTESTINAL: Reports diarrhea, no nausea, no vomiting, no abdominal pain. NEUROLOGICAL: No headaches, no weakness, no numbness. PHYSICAL EXAMINATION: GENERAL: The patient is alert and oriented x3, not in any acute distress. Well developed, well nourished. HEENT: Pupils are round and equally reacting to light. EOMI. No scleral icterus. No conjunctival pallor. Normocephalic, atraumatic. No pharyngeal erythema. No thyromegaly. CARDIOVASCULAR: S1 and S2 present. No murmurs, rubs, or gallops. PULMONARY: Chest is clear to auscultation, no wheezing or crackles. ABDOMEN: Soft, nontender, nondistended, normoactive bowel sounds. No palpable organomegaly. MUSCULOSKELETAL: No joint swelling or deformity. EXTREMITIES: No cyanosis, clubbing, or pedal edema. NEUROLOGICAL: Gross neurological examination did not reveal any focal deficits. SKIN: No rashes. Assessment and Plan -Atrial fibrillation with RVR on admission was new onset back in July currently anticoagulated with eliquis which will be continued at this time, patient has been evaluated by cardiology and resumed on home dosing of metoprolol heart rate is now improved continue with cardiac telemetry monitoring -Acute heart failure [place] [address] started on IV lasix 40 mg Q12. Recommending to monitor intake and output. -Acute on chronic kidney injury prerenal from heart failure expected to improve with IV lasix repeat labs in AM -Diarrhea unclear etiology was on metamucil outpatient without improvement patient feels was worsened by antibiotics. Will check for C.dif and get antidiarrheals. -Left lower extremity cellulitis noncompliant without patient therapy was recently discharged with oral keflex. Will add IV cefazolin and consult infectious disease. -Diabetes Mellitus type 2 not on any oral diabetic agents or insulin outpatient will recommending while inpatient accuchecks ACHS and sliding scale insulin coverage. -Hypertension currently low normotensive -Hx of dyslipidemia resumed on lipitor home medication -Hypothyroidism recommending to continue current levothyroxine dosing TSH is within normal limits -Hx of peripheral vascular disease -Osteoarthritis -Hx of uterine cancer -Urinary incontinence GI prophylaxis DVT prophylaxis Full Code The impression and plan of care has been dictated by Tonya Vargas, Nurse Practitioner as directed. Dr. Nitin MD I have performed a history and physical examination and medical decision making of this patient, discussed the same with the dictator, and agree with the dictators assessment and plan as written, documented as a scribe. Based on total visit time, I have performed more than 50% of this visit. Objective - Vital Signs Vital signs: Vital Signs Temp 97.9 F 09/08/23 08:57 Pulse 82 09/08/23 16:14 Resp 16 09/08/23 16:14 BP 144/78 09/08/23 16:14 Pulse Ox 97 09/08/23 16:14 FiO2 Intake & Output 09/08/23 09/08/23 09/09/23 06:59 18:59 06:59 Intake Total 1606 Output Total 1400 2150 Balance -1400 -544 Intake: Intake, IV Titration 50 Amount ceFAZolin 2 gm In Sodium 50 Chloride 0.9% 50 ml @ 100 mls/hr IVPB Q8HR [facility] Rx# :[id number] Oral 1556 Output: Urine 1400 2150 Other: Voiding Method External Catheter External Catheter - Labs CBC & Chem 7: 09/06/23 21:00 09/08/23 06:38 Labs: Abnormal Lab Results - Last 24 Hours (Table) 09/08/23 09/08/23 09/08/23 Range/Units 06:38 11:23 16:46 BUN 44 H (7-17) mg/dL Creatinine 1.94 H (0.52-1.04) mg/dL POC Glucose (mg/dL) 209 H 211 H (70-110) mg/dL 09/08/23 Range/Units 20:25 BUN (7-17) mg/dL Creatinine (0.52-1.04) mg/dL POC Glucose (mg/dL) 162 H (70-110) mg/dL Assessment and Plan Time with Patient: Less than 30
[2023-09-08] MEDS ORDERED: NYSTAT-TRIAMCIN 100,000-0.1 UNIT/GM-% CREAM 30 GM TUBE TOPICAL SCH (21:00)
[2023-09-08] MEDS: NYSTATIN 100,000UNIT/GM CREAM 30 GM TUBE TOPICAL SCH ×2 (22:06→22:10)
[2023-09-08] MEDS: TRIAMCINOLONE 0.1% CREAM 80 GM TUBE TOPICAL SCH (22:06)
[2023-09-09 06:08] LABS: Glucose,Whole Blood 196 mg/dL (70-110)
[2023-09-09] MEDS: LEVOTHYROXINE 25 MCG TAB PO SCH (06:55)
[2023-09-09] MEDS: INSULIN ASPART (NovoLOG) 100 UNIT/ML VIAL SQ SCH ×4 (06:55→21:03)
--- NOTE | 2023-09-09 08:11 | P.CONS ---
History of Present Illness - Reason for Consult Consult date: 09/08/23 - History of Present Illness Patient is a 83-year-old female with a past medical history significant for diabetes mellitus hypertension arthritis atrial fibrillation patient presenting to the hospital 2 days ago for evaluation of elevated heart rate patient was instructed by her PCP to go to the hospital patient also complaining of increasing bilateral lower extremity swelling especially to the left leg and did have some erythema concerning for cellulitis, patient on presentation to the hospital was afebrile and no fever has been called subsequently patient did have a history of 5.6 BUN/creatinine mildly elevated though there was a normal patient was started on cefazolin infectious disease was consulted for further management of antibiotic therapy, patient has been complaining of mostly swelling and redness to the left lower extremity and did have mild dull aching pain without any radiation patient did not have any skin breakdown or any foul-smelling drainage Past Medical History Past Medical History: Atrial Fibrillation, Diabetes Mellitus, Hypertension, Osteoarthritis (OA) Additional Past Medical History / Comment(s): uterine cancer, incontinent of urine History of Any Multi-Drug Resistant Organisms: None Reported Past Surgical History: No Surgical Hx Reported Additional Past Surgical History / Comment(s): cataract & carpal-tunnel bilat. Past Anesthesia/Blood Transfusion Reactions: No Reported Reaction Past Psychological History: No Psychological Hx Reported Smoking Status: Never smoker Past Alcohol Use History: None Reported Past Drug Use History: None Reported - Past Family History Mother Family Medical History: Coronary Artery Disease (CAD), Diabetes Mellitus, Hypertension, Mitral Valve Prolapse (MVP) Father Family Medical History: Hypertension Additional Family Medical History / Comment(s): father hip surgery Medications and Allergies Home Medications Medication Instructions Recorded Confirmed Type Levothyroxine Sodium 25 mcg PO DAILY 06/28/22 09/07/23 History Psyllium Husk [Fiber Capsule] 3.2 gm PO BID 08/18/23 09/07/23 History Apixaban [Eliquis] 2.5 mg PO BID 30 Days #60 tab 08/23/23 09/07/23 Rx Metoprolol Succinate (ER) [Toprol 100 mg PO BID 30 Days #60 tab 08/23/23 09/07/23 Rx XL] Allergies Allergy/AdvReac Type Severity Reaction Status Date / Time bacitracin Allergy Rash/Hives Verified 09/07/23 07:21 [From Neosporin ([id number])] ibuprofen Allergy Anaphylaxis Verified 09/07/23 07:21 & Rash all over neomycin Allergy Rash/Hives Verified 09/07/23 07:21 [From Neosporin ([id number])] polymyxin B Allergy Rash/Hives Verified 09/07/23 07:21 [From Neosporin ([id number])] Physical Exam Vitals: Vital Signs Temp Pulse Pulse Resp BP BP Pulse Ox 09/08/23 12:07 74 18 137/72 97 09/08/23 08:57 97.9 F 79 15 157/79 99 09/08/23 04:00 82 17 118/75 96 09/08/23 00:00 72 18 131/60 99 09/07/23 20:00 98.2 F 83 17 126/55 97 09/07/23 17:04 98.7 F 94 19 144/76 97 09/07/23 16:25 98.0 F 88 17 130/61 98 Intake and Output 09/08/23 09/08/23 09/08/23 06:59 14:59 22:59 Intake Total 1606 Output Total 1000 1400 Balance -1000 206 Intake: Intake, IV Titration 50 Amount ceFAZolin 2 gm In Sodium 50 Chloride 0.9% 50 ml @ 100 mls/hr IVPB Q8HR [facility] Rx# :[id number] Oral 1556 Output: Urine 1000 1400 Other: Voiding Method External Catheter External Catheter Results CBC & Chem 7: 09/06/23 21:00 09/08/23 06:38 Labs: Abnormal Lab Results - Last 24 Hours (Table) 09/07/23 09/07/23 09/08/23 Range/Units 17:00 20:05 06:38 BUN 44 H (7-17) mg/dL Creatinine 1.94 H (0.52-1.04) mg/dL POC Glucose (mg/dL) 127 H 228 H (70-110) mg/dL 09/08/23 Range/Units 11:23 BUN (7-17) mg/dL Creatinine (0.52-1.04) mg/dL POC Glucose (mg/dL) 209 H (70-110) mg/dL Assessment and Plan Plan: 1-Patient presents to hospital with A-fib with RVR this patient also noticed h aving increasing swelling in his left lower extremity concerning for cellulitis however features are mostly of venous stasis dermatitis as the patient not running any fever and did not have any major white count 2-we will apply Mycolog cream to the left lower extremity erythematous rash/also advise Domo wrap to keep the swelling down 3-continue cefazolin We will follow on clinical condition and cultures to further adjust medication if needed Thank you for this consultation we will follow the patient along with you Dictation was produced using [employer] dictation software. please excuse any gramma tical, word or spelling errors. Time with Patient: Greater than 30
[2023-09-09 08:38] LABS: African American GFR (CKD) 24 (>60 ml/min/1.73 sqM); Anion Gap 12 mmol/L; Blood Urea Nitrogen 47 mg/dL (7-17); Calcium 8.7 mg/dL (8.4-10.2); Carbon Dioxide 27 mmol/L (22-30); Chloride 99 mmol/L (98-107); Glucose 199 mg/dL (74-99); Non-African American GFR(CKD) 21 (>60 ml/min/1.73 sqM); Sodium 138 mmol/L (137-145)
[2023-09-09] MEDS: TRIAMCINOLONE 0.1% CREAM 80 GM TUBE TOPICAL SCH ×2 (09:02→21:04)
[2023-09-09] MEDS: METOPROLOL SUCCINATE (ER) 50 MG TAB.ER.24H PO SCH ×2 (09:03→21:02)
[2023-09-09] MEDS: APIXABAN 2.5 MG TABLET PO SCH ×2 (09:03→21:02)
[2023-09-09] MEDS: ATORVASTATIN 20 MG TAB PO SCH ×2 (09:03→09:07)
[2023-09-09] MEDS: NYSTATIN 100,000UNIT/GM CREAM 30 GM TUBE TOPICAL SCH ×2 (09:03→21:03)
[2023-09-09] MEDS: LOPERAMIDE 2 MG CAP PO SCH ×4 (09:03→21:05)
[2023-09-09] MEDS: PANTOPRAZOLE 40 MG/10 ML VIAL IVP SCH (09:03)
[2023-09-09] MEDS: CHOLESTYRAMINE (WITH SUGAR) 4 GM PACKET PO SCH ×3 (09:03→16:56)
[2023-09-09 11:22] LABS: Glucose,Whole Blood 230 mg/dL (70-110)
--- NOTE | 2023-09-09 13:17 | US ---
EXAMINATION TYPE: US kidneys/renal and bladder DATE OF EXAM: 09/09/2023 COMPARISON: NONE CLINICAL INDICATION: Female, 83 years old with history of BOLA; HTN and DM; Patient denies any other s igns or symptoms at this time. EXAM MEASUREMENTS: Right Kidney: 9.7 x 5.2 x 5.4 cm Left Kidney: 11.1 x 5.1 x 5.0 cm Post Void Residual Volume: N/A mL Right Kidney: Hydronephrosis Left Kidney: Hydronephrosis Bladder: wnl Bilateral Jets seen: Yes Normal Post Void Residual: Not able to assess; Patient did not want to void. No nephrolithiasis is seen. No masses are identified. The urinary bladder is anechoic. Bilateral u reteral jets are seen. IMPRESSION: Dilated bilateral collecting systems which could be chronic given patient's lack of symptomology.
--- NOTE | 2023-09-09 14:24 | P.PN ---
Subjective HISTORY OF PRESENT ILLNESS: This is a 83-year-old female with a past medical history significant for hypertension, hyperlipidemia, chronic lower extremity edema, and atrial fibrillation. Patient follows in the office with Dr. Gallardo. We have been asked to see the patient in consultation for CHF and atrial fibrillation. Patient examined at the bedside. Patient was sent to the ER by her primary care physician secondary to tachycardia. She was found to be in afib with RVR. She remains in afib with RVR. She remains in atrial fibrillation with heart rate around 100 at time of examination. She denies chest pain or pressure. She denies SOB. She states she was recently on antibiotics for lower extremity cellulitis but stopped taking it due to worsening diarrhea. * EKG reveals atrial fibrillation with a heart rate around 100. No signs of acute ischemia. * Chest xray cardiomegaly and mild pulmonary vascular congestion. COPD changes. * Laboratory data: Hemoglobin 9.4. BUN 39. Creatinine 1.82. Troponin negative 2. ProBNP 12,500. * Current home cardiac medications include Eliquis 2.5 mg twice a day and metoprolol succinate 100 mg twice a day * Most recent echocardiogram obtained in July 2023 revealed ejection fraction 55-60%, mild pulmonary hypertension, and mild to moderate MR * Patient underwent Lexiscan stress test in June 2022 revealing abnormal nuclear scan showing ischemia involving inferior lateral wall 09/08/2023 Patient examined this morning at the bedside. Patient currently denies chest pain or pressure. She reports improvement in her shortness of breath. Telemetry reveals atrial fibrillation with controlled ventricular rate. 09/09/2023 Patient examined this morning at the bedside. Patient denies chest pain or pressure. She denies shortness of breath. Remains on IV Lasix 40 mg daily. Creatinine slightly increased today to 2.19. Telemetry reveals atrial fibrillation with controlled ventricular rate. PHYSICAL EXAM: VITAL SIGNS: Reviewed. GENERAL: Well-developed in no acute distress. HEENT: Head is normocephalic. Pupils are equal, round. Sclerae anicteric. Mucous membranes of the mouth are moist. Neck supple. No JVD or thyromegaly LUNGS: Respirations even and unlabored. Lungs essentially clear to auscultation bilaterally. HEART: Irregular rate and rhythm. S1 and S2 heard. Systolic murmur noted. ABDOMEN: Soft. Nondistended. Nontender. EXTREMITIES: Normal range of motion. No clubbing or cyanosis. Peripheral pulses intact. 2+ bilateral lower extremity edema with left lower extremity erythema concerning for cellulitis. NEUROLOGIC: Awake and alert. Oriented x 3. ASSESSMENT: Paroxysmal atrial fibrillation with RVR Left lower extremity cellulitis Acute heart failure with preserved ejection fraction, 55-60%, proBNP 12,500 Hypertension Hyperlipidemia Chronic kidney disease Abnormal stress test in June 2022 revealing inferior lateral reversibility Chronic diarrhea with history of IBS PLAN: Continue current cardiac medications Discontinue IV Lasix Begin oral Lasix 40 mg daily Monitor kidney function Patient is currently stable for discharge from a cardiac standpoint Nurse practitioner note has been reviewed by physician. Signing provider agrees with the documented findings, assessment, and plan of care. Objective - Vital Signs Vital signs: Vital Signs Temp 97.9 F 09/09/23 08:55 Pulse 103 H 09/09/23 08:55 Resp 20 09/09/23 08:55 BP 120/71 09/09/23 08:55 Pulse Ox 99 09/09/23 08:55 FiO2 Intake & Output 09/08/23 09/09/23 09/09/23 18:59 06:59 18:59 Intake Total 1606 335 Output Total 2150 1000 Balance -544 -1000 335 Weight 65.8 kg Intake: Intake, IV Titration 50 Amount ceFAZolin 2 gm In Sodium 50 Chloride 0.9% 50 ml @ 100 mls/hr IVPB Q8HR [facility] Rx# :[id number] Oral [id number] 335 Output: Urine 2150 1000 Other: Voiding Method External Catheter External Catheter - Labs CBC & Chem 7: 09/06/23 21:00 09/09/23 07:40 Labs: Abnormal Lab Results - Last 24 Hours (Table) 09/08/23 09/08/23 09/08/23 Range/Units 11:23 16:46 20:25 BUN (7-17) mg/dL Creatinine (0.52-1.04) mg/dL Glucose (74-99) mg/dL POC Glucose (mg/dL) 209 H 211 H 162 H (70-110) mg/dL 09/09/23 09/09/23 Range/Units 06:05 07:40 BUN 47 H (7-17) mg/dL Creatinine 2.16 H (0.52-1.04) mg/dL Glucose 199 H (74-99) mg/dL POC Glucose (mg/dL) 196 H (70-110) mg/dL
--- NOTE | 2023-09-09 15:29 | P.PN ---
Subjective Progress Note Date: 09/09/23 This is an 83 year old female with medical history of diabetes mellitus type 2, hypertension, hypothyroidism, chronic lower extremity edema, venous insufficiency present to the emergency department sent in from PCP office for lower extremity edema and heart rate in the 130s revealing atrial fibrillation with RVR on EKG. Patients does admit to having palpiations and racing heart at home but denies any chest pain, denies shortness of breath. No fever or chills. Patient was recently admitted to the hospital a few weeks ago with new onset atrial fibrillation was in RVR at that time, and had evidence of lower extremity cellulitis of the left leg was evaluated by ID and discharged on oral keflex. Echocardiogram in July of 2023 shows normal LV systolic function and mild to moderate mitral regurgitation. Patient was discharged also on eliquis and metoprolol. On admission patient is found to be in afib RVR. Chest xray reveals cardiomegaly and pulmonary venous congestion. Correlate with BNP for congestive heart failure. COPD changes. Patient reports incontinence of loose stool multiple episodes worsened by antibiotic use. Does not want any antibiotics at this time. She was admitted to the hospital with cardiology consultation. Was given a dose of [place] [address], troponin negative x 3, BUN 39, creatinine 1.82, hemoglobin 9.4. 09/08/2023 Patient is evaluated today sitting up in chair. Continues on IV cefazolin and IV lasix. ID and cardiology following. Has not had any diarrhea at this time. States she takes metamucil and imodium multiple times a day at home to prevent loose stools. Does not want to see a specialist even on any outpatient basis. States she does have IBS. Renal function stable with creatinine 1.94. 09/09/2023 Patient evaluated today sitting in a chair she is currently refusing antibiotics at this time as well as her creams order for lower extremity. ID has signed off. Additionally cardiology has cleared this patient. Recommending to trans ition to oral Lasix. She did have worsening renal function with a creatinine today of 2.16. Her renal ultrasound shows bilateral hydronephrosis could be chronic given patient's lack of symptomology. REVIEW OF SYSTEMS: CONSTITUTIONAL: No fever, no malaise, no fatigue. HEENT: No recent visual problems or hearing problems. Denied any sore throat. CARDIOVASCULAR: No chest pain, orthopnea, PND, no palpitations, no syncope. PULMONARY: No shortness of breath, no cough, no hemoptysis. GASTROINTESTINAL: Reports diarrhea, no nausea, no vomiting, no abdominal pain. NEUROLOGICAL: No headaches, no weakness, no numbness. PHYSICAL EXAMINATION: GENERAL: The patient is alert and oriented x3, not in any acute distress. Well developed, well nourished. HEENT: Pupils are round and equally reacting to light. EOMI. No scleral icterus. No conjunctival pallor. Normocephalic, atraumatic. No pharyngeal erythema. No thyromegaly. CARDIOVASCULAR: S1 and S2 present. No murmurs, rubs, or gallops. PULMONARY: Chest is clear to auscultation, no wheezing or crackles. ABDOMEN: Soft, nontender, nondistended, normoactive bowel sounds. No palpable organomegaly. MUSCULOSKELETAL: No joint swelling or deformity. EXTREMITIES: No cyanosis, clubbing, or pedal edema. NEUROLOGICAL: Gross neurological examination did not reveal any focal deficits. SKIN: No rashes. Assessment and Plan -Atrial fibrillation with RVR on admission was new onset back in July currently anticoagulated with eliquis which will be continued at this time, patient has been evaluated by cardiology and resumed on home dosing of metoprolol heart rate is now improved continue with cardiac telemetry monitoring -Acute heart failure [place] [address] started on IV lasix 40. Patient diuresed and will transition to oral Lasix. -Acute on chronic kidney injury prerenal from heart failure -Diarrhea unclear etiology was on metamucil outpatient without improvement patient feels was worsened by antibiotics. Will check for C.dif and give antidiarrheals. -Left lower extremity cellulitis noncompliant without patient therapy was recently discharged with oral keflex. Patient is currently refusing IV cefazolin and ID has signed off. -Diabetes Mellitus type 2 not on any oral diabetic agents or insulin outpatient will recommending while inpatient accuchecks ACHS and sliding scale insulin coverage. -Hypertension currently low normotensive -Hx of dyslipidemia resumed on lipitor home medication -Hypothyroidism recommending to continue current levothyroxine dosing TSH is within normal limits -Hx of peripheral vascular disease -Osteoarthritis -Hx of uterine cancer -Urinary incontinence GI prophylaxis DVT prophylaxis Full Code Recommend to repeat labs in the morning to monitor the renal function patient to be discharged home tomorrow. The impression and plan of care has been dictated by Tonya Vargas Nurse Practitioner as directed. Dr. Nitin MD I have performed a history and physical examination and medical decision making of this patient, discussed the same with the dictator, and agree with the dictators assessment and plan as written, documented as a scribe. Based on total visit time, I have performed more than 50% of this visit. Objective - Vital Signs Vital signs: Vital Signs Temp 98.4 F 09/09/23 11:08 Pulse 105 H 09/09/23 13:09 Resp 20 09/09/23 11:08 BP 151/86 09/09/23 11:08 Pulse Ox 98 09/09/23 11:08 FiO2 Intake & Output 09/08/23 09/09/23 09/09/23 18:59 06:59 18:59 Intake Total 1606 575 Output Total 2150 1000 300 Balance -544 -1000 275 Weight 65.8 kg Intake: Intake, IV Titration 50 Amount ceFAZolin 2 gm In Sodium 50 Chloride 0.9% 50 ml @ 100 mls/hr IVPB Q8HR [facility] Rx# :[id number] Oral 1556 575 Output: Urine 2150 1000 300 Other: Voiding Method External Catheter External Catheter External Catheter - Labs CBC & Chem 7: 09/06/23 21:00 09/09/23 07:40 Labs: Abnormal Lab Results - Last 24 Hours (Table) 09/08/23 09/08/23 09/09/23 Range/Units 16:46 20:25 06:05 BUN (7-17) mg/dL Creatinine (0.52-1.04) mg/dL Glucose (74-99) mg/dL POC Glucose (mg/dL) 211 H 162 H 196 H (70-110) mg/dL 09/09/23 09/09/23 Range/Units 07:40 11:20 BUN 47 H (7-17) mg/dL Creatinine 2.16 H (0.52-1.04) mg/dL Glucose 199 H (74-99) mg/dL POC Glucose (mg/dL) 230 H (70-110) mg/dL Assessment and Plan Time with Patient: Less than 30
--- NOTE | 2023-09-09 16:06 | P.PN ---
Subjective Progress Note Date: 09/09/23 Principal diagnosis: Reason for follow-up is left lower extremity cellulitis versus venous stasis dermatitis Patient is a 83-year-old female with a past medical history s ignificant for diabetes mellitus hypertension arthritis atrial fibrillation patient presenting to the hospital for evaluation of elevated heart rate also noticed to have increasing swelling and some erythema to the left leg concerning for cellulitis versus venous stasis dermatitis On today's evaluation that is 09/09/2023, the patient denies having any fever or any chills, the patient is breathing comfortably on room air denies any chest pain or shortness with occasional cough left lower extremity swelling redness has decreased patient apparently refusing her antibiotic as well as a local Mycolog cream. Patient did have a creatinine of 2.16 Objective - Vital Signs Vital signs: Vital Signs Temp 98.4 F 09/09/23 11:08 Pulse 105 H 09/09/23 11:08 Resp 20 09/09/23 11:08 BP 151/86 09/09/23 11:08 Pulse Ox 98 09/09/23 11:08 FiO2 Intake & Output 09/08/23 09/09/23 09/09/23 18:59 06:59 18:59 Intake Total 1606 335 Output Total 2150 1000 300 Balance -544 -1000 35 Weight 65.8 kg Intake: Intake, IV Titration 50 Amount ceFAZolin 2 gm In Sodium 50 Chloride 0.9% 50 ml @ 100 mls/hr IVPB Q8HR [facility] Rx# :[id number] Oral [id number] 335 Output: Urine 2150 1000 300 Other: Voiding Method External Catheter External Catheter External Catheter - Exam GENERAL DESCRIPTION: An elderly female up in bed in no distress RESPIRATORY SYSTEM: Unlabored breathing , clear to auscultation anteriorly HEART: S1 S2 regular rate and rhythm , ABDOMEN: Soft , no tenderness EXTREMITIES: Left lower extremity did have minimal swelling redness has decreased no flaky skin - Labs CBC & Chem 7: 09/06/23 21:00 09/09/23 07:40 Labs: Abnormal Lab Results - Last 24 Hours (Table) 09/08/23 09/08/23 09/09/23 Range/Units 16:46 20:25 06:05 BUN (7-17) mg/dL Creatinine (0.52-1.04) mg/dL Glucose (74-99) mg/dL POC Glucose (mg/dL) 211 H 162 H 196 H (70-110) mg/dL 09/09/23 09/09/23 Range/Units 07:40 11:20 BUN 47 H (7-17) mg/dL Creatinine 2.16 H (0.52-1.04) mg/dL Glucose 199 H (74-99) mg/dL POC Glucose (mg/dL) 230 H (70-110) mg/dL Assessment and Plan (1) Venous stasis dermatitis of left lower extremity Current Visit: Yes Status: Acute Code(s): I87.2 - VENOUS INSUFFICIENCY (CHRONIC) (PERIPHERAL) SNOMED Code(s): 28774712 Plan: 1-Patient presents to hospital with A-fib with RVR this patient also noticed hav ing increasing swelling in his left lower extremity concerning for cellulitis however features are mostly of venous stasis dermatitis as the patient not running any fever and did not have any major white count 2the patient seem to be refusing her antibiotics and low clinical suspicious for bacterial cellulitis we will discontinue cefazolin however will encourage to use Mycolog cream along with compression for possible venous stasis dermatitis plan of care was discussed with the admitting team [employer] Dictation was produced using [employer] software. please excuse any grammatical, word or spelling errors.
[2023-09-09 16:24] LABS: Glucose,Whole Blood 205 mg/dL (70-110)
[2023-09-09 19:39] LABS: Glucose,Whole Blood 151 mg/dL (70-110)
[2023-09-10] MEDS: LEVOTHYROXINE 25 MCG TAB PO SCH (06:13)
[2023-09-10] MEDS: INSULIN ASPART (NovoLOG) 100 UNIT/ML VIAL SQ SCH ×4 (06:13→21:14)
[2023-09-10 06:23] LABS: Glucose,Whole Blood 118 mg/dL (70-110)
[2023-09-10] MEDS: ATORVASTATIN 20 MG TAB PO SCH (08:21)
[2023-09-10] MEDS: PANTOPRAZOLE 40 MG/10 ML VIAL IVP SCH (08:21)
[2023-09-10] MEDS: LOPERAMIDE 2 MG CAP PO SCH ×4 (08:22→21:10)
[2023-09-10] MEDS: METOPROLOL SUCCINATE (ER) 50 MG TAB.ER.24H PO SCH ×2 (08:22→21:14)
[2023-09-10] MEDS: APIXABAN 2.5 MG TABLET PO SCH ×2 (08:22→21:14)
[2023-09-10] MEDS: NYSTATIN 100,000UNIT/GM CREAM 30 GM TUBE TOPICAL SCH ×2 (08:22→21:10)
[2023-09-10] MEDS: TRIAMCINOLONE 0.1% CREAM 80 GM TUBE TOPICAL SCH ×2 (08:22→21:10)
[2023-09-10 08:25] LABS: African American GFR (CKD) 33 (>60 ml/min/1.73 sqM); Anion Gap 10 mmol/L; Blood Urea Nitrogen 46 mg/dL (7-17); Calcium 8.7 mg/dL (8.4-10.2); Carbon Dioxide 24 mmol/L (22-30); Chloride 104 mmol/L (98-107); Glucose 103 mg/dL (74-99); Non-African American GFR(CKD) 29 (>60 ml/min/1.73 sqM); Potassium 4.6 mmol/L (3.5-5.1); Sodium 138 mmol/L (137-145)
[2023-09-10] MEDS ORDERED: FUROSEMIDE 40 MG TAB PO SCH (09:00)
[2023-09-10] MEDS: CHOLESTYRAMINE (WITH SUGAR) 4 GM PACKET PO SCH ×2 (11:37→14:16)
[2023-09-10 11:53] LABS: Glucose,Whole Blood 311 mg/dL (70-110)
[2023-09-10] MEDS: TAMSULOSIN 0.4 MG CAP.ER.24H PO SCH (12:40)
--- NOTE | 2023-09-10 14:37 | P.PN ---
Subjective Progress Note Date: 09/10/23 This is an 83 year old female with medical history of diabetes mellitus type 2, hypertension, hypothyroidism, chronic lower extremity edema, venous insufficiency present to the emergency department sent in from PCP office for lower extremity edema and heart rate in the 130s revealing atrial fibrillation with RVR on EKG. Patients does admit to having palpiations and racing heart at home but denies any chest pain, denies shortness of breath. No fever or chills. Patient was recently admitted to the hospital a few weeks ago with new onset atrial fibrillation was in RVR at that time, and had evidence of lower extremity cellulitis of the left leg was evaluated by ID and discharged on oral keflex. Echocardiogram in July of 2023 shows normal LV systolic function and mild to moderate mitral regurgitation. Patient was discharged also on eliquis and metoprolol. On admission patient is found to be in afib RVR. Chest xray reveals cardiomegaly and pulmonary venous congestion. Correlate with BNP for congestive heart failure. COPD changes. Patient reports incontinence of loose stool multiple episodes worsened by antibiotic use. Does not want any antibiotics at this time. She was admitted to the hospital with cardiology consultation. Was given a dose [place] [address], troponin negative x 3, BUN 39, creatinine 1.82, hemoglobin 9.4. 09/08/2023 Patient is evaluated today sitting up in chair. Continues on IV cefazolin and IV lasix. ID and cardiology following. Has not had any diarrhea at this time. States she takes metamucil and imodium multiple times a day at home to prevent loose stools. Does not want to see a specialist even on any outpatient basis. States she does have IBS. Renal function stable with creatinine 1.94. 09/09/2023 Patient evaluated today sitting in a chair she is currently refusing antibiotics at this time as well as her creams order for lower extremity. ID has signed off. Additionally cardiology has cleared this patient. Recommending to trans ition to oral Lasix. She did have worsening renal function with a creatinine today of 2.16. Her renal ultrasound shows bilateral hydronephrosis could be chronic given patient's lack of symptomology. 09/10/2023 Patient was considered for discharge today however she does not report hematuria and there is gross hematuria visualized on return when indwelling catheter was placed. Patient was having intermittent episodes of urinary retention and did have a bladder ultrasound done showing a right and left kidney hydronephrosis. Kidney function is improving with a BUN of 46 and a creatinine of 1.67. Has been cleared by ID and cardiology at this time. No antibiotics are required at discharge. The redness of the lower extremity has improved and patient is being monitored off antibiotic therapy at this time. She was refusing antibiotics regardless. Cardiology has cleared recommending oral Lasix. REVIEW OF SYSTEMS: CONSTITUTIONAL: No fever, no malaise, no fatigue. HEENT: No recent visual problems or hearing problems. Denied any sore throat. CARDIOVASCULAR: No chest pain, orthopnea, PND, no palpitations, no syncope. PULMONARY: No shortness of breath, no cough, no hemoptysis. GASTROINTESTINAL: Reports diarrhea, no nausea, no vomiting, no abdominal pain. Reports red urine. NEUROLOGICAL: No headaches, no weakness, no numbness. PHYSICAL EXAMINATION: GENERAL: The patient is alert and oriented x3, not in any acute distress. Well developed, well nourished. HEENT: Pupils are round and equally reacting to light. EOMI. No scleral icterus. No conjunctival pallor. Normocephalic, atraumatic. No pharyngeal erythema. No thyromegaly. CARDIOVASCULAR: S1 and S2 present. No murmurs, rubs, or gallops. PULMONARY: Chest is clear to auscultation, no wheezing or crackles. ABDOMEN: Soft, nontender, nondistended, normoactive bowel sounds. No palpable organomegaly. MUSCULOSKELETAL: No joint swelling or deformity. EXTREMITIES: No cyanosis, clubbing, or pedal edema. NEUROLOGICAL: Gross neurological examination did not reveal any focal deficits. SKIN: No rashes. Assessment and Plan -Atrial fibrillation with RVR on admission was new onset back in July currently anticoagulated with eliquis which will be continued at this time, patient has been evaluated by cardiology and resumed on home dosing of metoprolol heart rate is now improved continue with cardiac telemetry monitoring -Acute heart failure [place] [address] started on IV lasix 40. Patient diuresed and will transition to oral Lasix. -Acute on chronic kidney injury prerenal from heart failure component of urinary retention. -Hematuria and urinary retention plan is to check urinalysis, insert indwelling catheter we will start flomax and place urology consultation. Discharge will be held for evaluation. Bladder US does reveal hydronephrosis. -Diarrhea unclear etiology was on metamucil outpatient without improvement patient feels was worsened by antibiotics. Will check for C.dif and give antidiarrheals. -Left lower extremity cellulitis noncompliant without patient therapy was recently discharged with oral keflex. Patient is currently refusing IV cefazolin and ID has signed off. -Diabetes Mellitus type 2 not on any oral diabetic agents or insulin outpatient will recommending while inpatient accuchecks ACHS and sliding scale insulin coverage. -Hypertension currently low normotensive -Hx of dyslipidemia resumed on lipitor home medication -Hypothyroidism recommending to continue current levothyroxine dosing TSH is within normal limits -Hx of peripheral vascular disease -Osteoarthritis -Hx of uterine cancer -Urinary incontinence GI prophylaxis DVT prophylaxis Full Code The impression and plan of care has been dictated by Tonya Vargas, Nurse Practitioner as directed. Dr. Nitin MD I have performed a history and physical examination and medical decision making of this patient, discussed the same with the dictator, and agree with the dictators assessment and plan as written, documented as a scribe. Based on total visit time, I have performed more than 50% of this visit. Objective - Vital Signs Vital signs: Vital Signs Temp 98.9 F 09/10/23 11:39 Pulse 92 09/10/23 11:39 Resp 18 09/10/23 11:39 BP 119/68 09/10/23 11:39 Pulse Ox 98 09/10/23 11:39 FiO2 Intake & Output 09/09/23 09/10/23 09/10/23 18:59 06:59 18:59 Intake Total 685 118 Output Total 1725 1675 1500 Balance -1040 -1675 -1382 Weight 65.8 kg Intake: Oral 685 118 Output: Urine 1350 1475 1500 Straight 500 1250 Post Void Residual 375 200 Other: Voiding Method External Catheter External Catheter Indwelling Catheter # Voids 2 1 - Labs CBC & Chem 7: 09/06/23 21:00 09/10/23 06:30 Labs: Abnormal Lab Results - Last 24 Hours (Table) 09/09/23 09/09/23 09/10/23 Range/Units 16:22 19:32 06:12 BUN (7-17) mg/dL Creatinine (0.52-1.04) mg/dL Glucose (74-99) mg/dL POC Glucose (mg/dL) 205 H 151 H 118 H (70-110) mg/dL 09/10/23 09/10/23 Range/Units 06:30 11:51 BUN 46 H (7-17) mg/dL Creatinine 1.67 H (0.52-1.04) mg/dL Glucose 103 H (74-99) mg/dL POC Glucose (mg/dL) 311 H (70-110) mg/dL Assessment and Plan Time with Patient: Less than 30
[2023-09-10 15:14] LABS: RBC,Urine >182 /hpf (0-5); WBC,Urine 70 /hpf (0-5)
--- NOTE | 2023-09-10 15:17 | P.PN ---
Subjective HISTORY OF PRESENT ILLNESS: This is a 83-year-old female with a past medical history significant for hypertension, hyperlipidemia, chronic lower extremity edema, and atrial fibrillation. Patient follows in the office with Dr. Gallardo. We have been asked to see the patient in consultation for CHF and atrial fibrillation. Patient examined at the bedside. Patient was sent to the ER by her primary care physician secondary to tachycardia. She was found to be in afib with RVR. She remains in afib with RVR. She remains in atrial fibrillation with heart rate around 100 at time of examination. She denies chest pain or pressure. She denies SOB. She states she was recently on antibiotics for lower extremity cellulitis but stopped taking it due to worsening diarrhea. * EKG reveals atrial fibrillation with a heart rate around 100. No signs of a cute ischemia. * Chest xray cardiomegaly and mild pulmonary vascular congestion. COPD changes. * Laboratory data: Hemoglobin 9.4. BUN 39. Creatinine 1.82. Troponin negative 2. ProBNP 12,500. * Current home cardiac medications include Eliquis 2.5 mg twice a day and metoprolol succinate 100 mg twice a day * Most recent echocardiogram obtained in July 2023 revealed ejection fraction 55-60%, mild pulmonary hypertension, and mild to moderate MR * Patient underwent Lexiscan stress test in June 2022 revealing abnormal nuclear scan showing ischemia involving inferior lateral wall 09/08/2023 Patient examined this morning at the bedside. Patient currently denies chest pain or pressure. She reports improvement in her shortness of breath. Telemetry reveals atrial fibrillation with controlled ventricular rate. 09/09/2023 Patient examined this morning at the bedside. Patient denies chest pain or pressure. She denies shortness of breath. Remains on IV Lasix 40 mg daily. Creatinine slightly increased today to 2.19. Telemetry reveals atrial fibrillation with controlled ventricular rate. 09/10 The patient did have Streeter catheter placed secondary to urinary retention. Telemetry reveals A. fib with controlled ventricular rates. Creatinine did actually improved to 1.67. She still does have significant lower extremity edema bilaterally. She complains of right ankle pain. PHYSICAL EXAM: VITAL SIGNS: Reviewed. GENERAL: Well-developed in no acute distress. HEENT: Head is normocephalic. Pupils are equal, round. Sclerae anicteric. Mucous membranes of the mouth are moist. Neck supple. No JVD or thyromegaly LUNGS: Respirations even and unlabored. Lungs essentially clear to auscultation bilaterally. HEART: Irregular rate and rhythm. S1 and S2 heard. Systolic murmur noted. ABDOMEN: Soft. Nondistended. Nontender. EXTREMITIES: Normal range of motion. No clubbing or cyanosis. Peripheral pulses intact. 2+ bilateral lower extremity edema with left lower extremity erythema concerning for cellulitis. NEUROLOGIC: Awake and alert. Oriented x 3. ASSESSMENT: Paroxysmal atrial fibrillation with RVR Left lower extremity cellulitis Acute heart failure with preserved ejection fraction, 55-60%, proBNP 12,500 Hypertension Hyperlipidemia Chronic kidney disease Abnormal stress test in June 2022 revealing inferior lateral reversibility Chronic diarrhea with history of IBS PLAN: Continue current cardiac medications Creatinine is better and still does have significant lower extremity edema. Additional dose of IV Lasix while she is inpatient with Streeter catheter to att empt to optimize volume status to avoid recurrent recurrent admissions. Monitor kidney function Objective - Vital Signs Vital signs: Vital Signs Temp 98.9 F 09/10/23 11:39 Pulse 92 09/10/23 11:39 Resp 18 09/10/23 11:39 BP 119/68 09/10/23 11:39 Pulse Ox 98 09/10/23 11:39 FiO2 Intake & Output 09/09/23 09/10/23 09/10/23 18:59 06:59 18:59 Intake Total 685 118 Output Total 1725 1675 1500 Balance -1040 -1675 -1382 Weight 65.8 kg Intake: Oral 685 118 Output: Urine 1350 1475 1500 Straight 500 1250 Post Void Residual 375 200 Other: Voiding Method External Catheter External Catheter Indwelling Catheter # Voids 2 1 - Labs CBC & Chem 7: 09/06/23 21:00 09/10/23 06:30 Labs: Abnormal Lab Results - Last 24 Hours (Table) 09/09/23 09/09/23 09/10/23 Range/Units 16:22 19:32 06:12 BUN (7-17) mg/dL Creatinine (0.52-1.04) mg/dL Glucose (74-99) mg/dL POC Glucose (mg/dL) 205 H 151 H 118 H (70-110) mg/dL Urine RBC (0-5) /hpf Urine WBC (0-5) /hpf 09/10/23 09/10/23 09/10/23 Range/Units 06:30 11:51 13:00 BUN 46 H (7-17) mg/dL Creatinine 1.67 H (0.52-1.04) mg/dL Glucose 103 H (74-99) mg/dL POC Glucose (mg/dL) 311 H (70-110) mg/dL Urine RBC >182 H (0-5) /hpf Urine WBC 70 H (0-5) /hpf
[2023-09-10 15:18] LABS: Appearance,Urine Bloody (Clear); Color,Urine Light Red
[2023-09-10] MEDS: FUROSEMIDE 10 MG/ML 10 ML VIAL IV SCH (16:00)
[2023-09-10 16:17] LABS: Glucose,Whole Blood 244 mg/dL (70-110)
[2023-09-10 20:09] LABS: Glucose,Whole Blood 227 mg/dL (70-110)
[2023-09-11 06:15] LABS: Glucose,Whole Blood 272 mg/dL (70-110)
[2023-09-11] MEDS: LEVOTHYROXINE 25 MCG TAB PO SCH (06:33)
[2023-09-11] MEDS: INSULIN ASPART (NovoLOG) 100 UNIT/ML VIAL SQ SCH ×4 (06:33→20:14)
[2023-09-11 07:35] LABS: Basophils % (A) 1 %; Eosinophils # (A) 0.1 k/uL (0-0.7); Eosinophils % (A) 2 %; HCT 29.1 % (34.0-46.0); HGB 9.5 gm/dL (11.4-16.0); Hypochromasia Slight; Lymphocytes # (A) 0.7 k/uL (1.0-4.8); Lymphocytes % (A) 11 %; MCH 28.1 pg (25.0-35.0); MCHC 32.6 g/dL (31.0-37.0); MCV 86.2 fL (80.0-100.0); Mean Platelet Volume 7.4; Monocytes # (A) 0.6 k/uL (0-1.0); Monocytes % (A) 9 %; Neutrophils % (A) 77 %; Platelet Count 275 k/uL (150-450); RBC 3.37 m/uL (3.80-5.40); RDW 15.3 % (11.5-15.5); WBC 6.6 k/uL (3.8-10.6)
[2023-09-11] MEDS: ATORVASTATIN 20 MG TAB PO SCH (07:45)
[2023-09-11] MEDS: NYSTATIN 100,000UNIT/GM CREAM 30 GM TUBE TOPICAL SCH ×2 (07:46→20:14)
[2023-09-11] MEDS: TRIAMCINOLONE 0.1% CREAM 80 GM TUBE TOPICAL SCH ×2 (07:46→20:13)
[2023-09-11] MEDS: LOPERAMIDE 2 MG CAP PO SCH ×4 (07:46→20:14)
[2023-09-11 07:56] LABS: African American GFR (CKD) 29 (>60 ml/min/1.73 sqM); Anion Gap 9 mmol/L; Blood Urea Nitrogen 46 mg/dL (7-17); Calcium 8.3 mg/dL (8.4-10.2); Carbon Dioxide 28 mmol/L (22-30); Chloride 96 mmol/L (98-107); Glucose 241 mg/dL (74-99); Non-African American GFR(CKD) 25 (>60 ml/min/1.73 sqM); Potassium 3.7 mmol/L (3.5-5.1); Sodium 133 mmol/L (137-145)
[2023-09-11] MEDS: APIXABAN 2.5 MG TABLET PO SCH ×2 (08:47→20:14)
[2023-09-11] MEDS: TAMSULOSIN 0.4 MG CAP.ER.24H PO SCH (08:47)
[2023-09-11] MEDS: FUROSEMIDE 10 MG/ML 10 ML VIAL IV SCH (08:47)
[2023-09-11] MEDS: METOPROLOL SUCCINATE (ER) 50 MG TAB.ER.24H PO SCH ×2 (08:47→20:14)
[2023-09-11] MEDS: PANTOPRAZOLE 40 MG/10 ML VIAL IVP SCH (08:47)
[2023-09-11] MEDS: CHOLESTYRAMINE (WITH SUGAR) 4 GM PACKET PO SCH (09:02)
[2023-09-11 12:02] LABS: Glucose,Whole Blood 246 mg/dL (70-110)
--- NOTE | 2023-09-11 12:21 | P.GSCN ---
History of Present Illness Consult date: 09/11/23 Reason for Consult: Urinary retention, gross hematuria, bilateral hydronephrosis History of present illness: This is an 83-year-old female admitted to the hospital with Cal ruano with RVR with lower extremity edema. Urology is consulted for gross hematuria and urinary retention. Patient underwent a renal bladder ultrasound that showed evidence of bilateral hydronephrosis. She had a Streeter catheter placed for postvoid residual 600 mL, patient was also noticed to have gross hematuria with her urinary retention. At baseline she does have some difficulty voiding, but able to void to completion. No known history of urinary retention or recurrent UTIs or kidney stones. Denies any previous history of gross hematuria. Once catheter was placed the urine is clear. Denies any flank pain, dysuria Review of Systems - Constitutional Denies fever, Denies weight loss - EENT Ears, nose, mouth and throat: Denies dysphagia - Cardiovascular Reports edema, Reports leg edema - Respiratory Denies cough, Denies 7 - Gastrointestinal Reports as per HPI - Genitourinary Genitourinary: Reports hematuria, Denies dysuria - Integumentary Denies rash, Denies unusual bruising Past Medical History Past Medical History: Atrial Fibrillation, Diabetes Mellitus, Hypertension, Osteoarthritis (OA) Additional Past Medical History / Comment(s): uterine cancer, incontinent of urine History of Any Multi-Drug Resistant Organisms: None Reported Past Surgical History: No Surgical Hx Reported Additional Past Surgical History / Comment(s): cataract & carpal-tunnel bilat. Past Anesthesia/Blood Transfusion Reactions: No Reported Reaction Past Psychological History: No Psychological Hx Reported Smoking Status: Never smoker Past Alcohol Use History: None Reported Past Drug Use History: None Reported - Past Family History Mother Family Medical History: Coronary Artery Disease (CAD), Diabetes Mellitus, Hyp ertension, Mitral Valve Prolapse (MVP) Father Family Medical History: Hypertension Additional Family Medical History / Comment(s): father hip surgery Medications and Allergies Home Medications Medication Instructions Recorded Confirmed Type Levothyroxine Sodium 25 mcg PO DAILY 06/28/22 09/07/23 History Psyllium Husk [Fiber Capsule] 3.2 gm PO BID 08/18/23 09/07/23 History Apixaban [Eliquis] 2.5 mg PO BID 30 Days #60 tab 08/23/23 09/07/23 Rx Metoprolol Succinate (ER) [Toprol 100 mg PO BID 30 Days #60 tab 08/23/23 09/07/23 Rx XL] Atorvastatin [Lipitor] 20 mg PO DAILY #30 tab 09/10/23 Rx Furosemide [Lasix] 40 mg PO DAILY #30 tab 09/10/23 Rx Loperamide [Imodium] 2 mg PO QID cap 09/10/23 Rx Allergies Allergy/AdvReac Type Severity Reaction Status Date / Time bacitracin Allergy Rash/Hives Verified 09/07/23 07:21 [From Neosporin ([id number])] ibuprofen Allergy Anaphylaxis Verified 09/07/23 07:21 & Rash all over neomycin Allergy Rash/Hives Verified 09/07/23 07:21 [From Neosporin ([id number])] polymyxin B Allergy Rash/Hives Verified 09/07/23 07:21 [From Neosporin ([id number])] Surgical - Exam Vital Signs Temp Pulse Resp BP Pulse Ox 98.0 F 118 H 20 124/77 99 09/06/23 19:32 09/06/23 19:32 09/06/23 19:32 09/06/23 19:32 09/06/23 19:32 - General no distress, no pain - Eyes normal ocular movement, no pale - ENT normal nares, normal mucosa - Respiratory normal expansion, normal respiratory effort - Abdomen Abdomen: soft, non tender, no distended - Psychiatric oriented to time, oriented to person, oriented to place Results - Labs 09/11/23 06:39 09/11/23 06:39 Abnormal Lab Results - Last 24 Hours (Table) 09/10/23 09/10/23 09/10/23 Range/Units 13:00 16:15 20:07 RBC (3.80-5.40) m/uL Hgb (11.4-16.0) gm/dL Hct (34.0-46.0) % Lymphocytes # (1.0-4.8) k/uL Sodium (137-145) mmol/L Chloride (98-107) mmol/L BUN (7-17) mg/dL Creatinine (0.52-1.04) mg/dL Glucose (74-99) mg/dL POC Glucose (mg/dL) 244 H 227 H (70-110) mg/dL Calcium (8.4-10.2) mg/dL Urine Appearance Bloody H (Clear) Urine RBC >182 H (0-5) /hpf Urine WBC 70 H (0-5) /hpf 09/11/23 09/11/23 09/11/23 Range/Units 06:13 06:39 06:39 RBC 3.37 L (3.80-5.40) m/uL Hgb 9.5 L (11.4-16.0) gm/dL Hct 29.1 L (34.0-46.0) % Lymphocytes # 0.7 L (1.0-4.8) k/uL Sodium 133 L (137-145) mmol/L Chloride 96 L (98-107) mmol/L BUN 46 H (7-17) mg/dL Creatinine 1.87 H (0.52-1.04) mg/dL Glucose 241 H (74-99) mg/dL POC Glucose (mg/dL) 272 H (70-110) mg/dL Calcium 8.3 L (8.4-10.2) mg/dL Urine Appearance (Clear) Urine RBC (0-5) /hpf Urine WBC (0-5) /hpf 09/11/23 Range/Units 12:01 RBC (3.80-5.40) m/uL Hgb (11.4-16.0) gm/dL Hct (34.0-46.0) % Lymphocytes # (1.0-4.8) k/uL Sodium (137-145) mmol/L Chloride (98-107) mmol/L BUN (7-17) mg/dL Creatinine (0.52-1.04) mg/dL Glucose (74-99) mg/dL POC Glucose (mg/dL) 246 H (70-110) mg/dL Calcium (8.4-10.2) mg/dL Urine Appearance (Clear) Urine RBC (0-5) /hpf Urine WBC (0-5) /hpf Diabetes panel 09/11/23 Range/Units 06:39 Sodium 133 L (137-145) mmol/L Potassium 3.7 (3.5-5.1) mmol/L Chloride 96 L (98-107) mmol/L Carbon Dioxide 28 (22-30) mmol/L BUN 46 H (7-17) mg/dL Creatinine 1.87 H (0.52-1.04) mg/dL Glucose 241 H (74-99) mg/dL Calcium 8.3 L (8.4-10.2) mg/dL Calcium panel 09/11/23 Range/Units 06:39 Calcium 8.3 L (8.4-10.2) mg/dL Pituitary panel 09/11/23 Range/Units 06:39 Sodium 133 L (137-145) mmol/L Potassium 3.7 (3.5-5.1) mmol/L Chloride 96 L (98-107) mmol/L Carbon Dioxide 28 (22-30) mmol/L BUN 46 H (7-17) mg/dL Creatinine 1.87 H (0.52-1.04) mg/dL Glucose 241 H (74-99) mg/dL Calcium 8.3 L (8.4-10.2) mg/dL Adrenal panel 09/11/23 Range/Units 06:39 Sodium 133 L (137-145) mmol/L Potassium 3.7 (3.5-5.1) mmol/L Chloride 96 L (98-107) mmol/L Carbon Dioxide 28 (22-30) mmol/L BUN 46 H (7-17) mg/dL Creatinine 1.87 H (0.52-1.04) mg/dL Glucose 241 H (74-99) mg/dL Calcium 8.3 L (8.4-10.2) mg/dL Assessment and Plan Assessment: 83-year-old female with urinary retention for a postvoid residual of 600 mL gross hematuria bilateral hydronephrosis. Her bilateral hydronephrosis is most likely secondary to urinary retention. Gross hematuria resolved with catheter placement. Most likely the hematuria is from bladder overdistention. At this she can have a trial of void in 1-2 weeks, we will reevaluate the gross hematuria as an outpatient, if persistent and she will require hematuria workup.
--- NOTE | 2023-09-11 12:23 | XR ---
EXAMINATION TYPE: XR ankle complete RT DATE OF EXAM: 09/11/2023 12:08 PM CLINICAL INDICATION:Female, 83 years old with history of (R) ankle pain-edema; [facility] COMPARISON: 03/27/2022 TECHNIQUE: XR ankle complete RT; ankle is imaged in frontal, lateral and oblique projections. FINDINGS: There is no evidence of acute osseous pathology. The joint spaces are well-preserved without evidenc e of subluxation or dislocation. Kager's fat pad is intact. Mild soft tissue swelling around the ankl e. No radiopaque foreign bodies are identified. Calcaneal plantar spurring. Severe arthritic gross ar terial or stricture. IMPRESSION: Subcutaneous swelling around the ankle correlate for third spacing of fluid. Correlate for recent inj ury. No evidence of fracture..
--- NOTE | 2023-09-11 13:26 | P.PN ---
Subjective Progress Note Date: 09/11/23 HISTORY OF PRESENT ILLNESS: This is a 83-year-old female with a past medical history significant for hy pertension, hyperlipidemia, chronic lower extremity edema, and atrial fibrillation. Patient follows in the office with Dr. Gallardo. We have been asked to see the patient in consultation for CHF and atrial fibrillation. Patient examined at the bedside. Patient was sent to the ER by her primary care ph ysician secondary to tachycardia. She was found to be in afib with RVR. She remains in afib with RVR. She remains in atrial fibrillation with heart rate around 100 at time of examination. She denies chest pain or pressure. She denies SOB. She states she was recently on antibiotics for lower extremity cellulitis but stopped taking it due to worsening diarrhea. * EKG reveals atrial fibrillation with a heart rate around 100. No signs of acute ischemia. * Chest xray cardiomegaly and mild pulmonary vascular congestion. COPD changes. * Laboratory data: Hemoglobin 9.4. BUN 39. Creatinine 1.82. Troponin negative 2. ProBNP 12,500. * Current home cardiac medications include Eliquis 2.5 mg twice a day and metoprolol succinate 100 mg twice a day * Most recent echocardiogram obtained in July 2023 revealed ejection fraction 55-60%, mild pulmonary hypertension, and mild to moderate MR * Patient underwent Lexiscan stress test in June 2022 revealing abnormal nuclear scan showing ischemia involving inferior lateral wall 09/08/2023 Patient examined this morning at the bedside. Patient currently denies chest pain or pressure. She reports improvement in her shortness of breath. Telemetry reveals atrial fibrillation with controlled ventricular rate. 09/09/2023 Patient examined this morning at the bedside. Patient denies chest pain or pressure. She denies shortness of breath. Remains on IV Lasix 40 mg daily. Creatinine slightly increased today to 2.19. Telemetry reveals atrial fibrillation with controlled ventricular rate. 09/10 The patient did have Streeter catheter placed secondary to urinary retention. Telemetry reveals A. fib with controlled ventricular rates. Creatinine did actually improved to 1.67. She still does have significant lower extremity edema bilaterally. She complains of right ankle pain. 09/11 Patient has had on and off urinary retention and yesterday had gross hematuria now pink in the morning and does seem to be clear after Lasix. Patient has been continued on eliquis 2.5 mg twice daily. She is followed by urology. Patient remains in atrial fibrillation, heart rate in the 70s and 80s, blood pressure 133/77, pulse ox 90% on room air. Hemoglobin 9.5, sodium 133, potassium 3.7, BUN 46 and creatinine 1.87. PHYSICAL EXAM: VITAL SIGNS: Reviewed. GENERAL: Well-developed in no acute distress. HEENT: Head is normocephalic. Pupils are equal, round. Sclerae anicteric. Mucous membranes of the mouth are moist. Neck supple. No JVD or thyromegaly LUNGS: Respirations even and unlabored. Lungs essentially clear to auscultation bilaterally. HEART: Irregular rate and rhythm. S1 and S2 heard. Systolic murmur noted. ABDOMEN: Soft. Nondistended. Nontender. EXTREMITIES: Normal range of motion. No clubbing or cyanosis. Peripheral pulses intact. 2+ bilateral lower extremity edema with left lower extremity erythema concerning for cellulitis. NEUROLOGIC: Awake and alert. Oriented x 3. ASSESSMENT: Paroxysmal atrial fibrillation with RVR Left lower extremity cellulitis Acute heart failure with preserved ejection fraction, 55-60%, proBNP 12,500 Hypertension Hyperlipidemia Chronic kidney disease Abnormal stress test in June 2022 revealing inferior lateral reversibility Chronic diarrhea with history of IBS PLAN: Continue current cardiac medications Continue eliquis and monitor hematuria Monitor kidney function Nurse practitioner note has been reviewed, I agree with the documented findings and plan of care. Patient was seen and examined. Objective - Vital Signs Vital signs: Vital Signs Temp 98.5 F 09/11/23 11:27 Pulse 85 09/11/23 11:27 Resp 18 09/11/23 11:27 BP 133/77 09/11/23 11:27 Pulse Ox 98 09/11/23 11:27 FiO2 Intake & Output 09/10/23 09/11/23 09/11/23 18:59 06:59 18:59 Intake Total 118 550 250 Output Total 2450 1450 1150 Balance -2332 -900 -900 Weight 63.4 kg Intake: IV 10 10 Invasive Line 2 10 10 Oral 118 540 240 Output: Urine 2450 1450 1150 Straight 650 Uretheral (Streeter) 1050 450 Other: Voiding Method Indwelling Catheter Indwelling Catheter Indwelling Catheter # Voids 1 - Labs CBC & Chem 7: 09/11/23 06:39 09/11/23 06:39 Labs: Abnormal Lab Results - Last 24 Hours (Table) 09/10/23 09/10/23 09/10/23 Range/Units 13:00 16:15 20:07 RBC (3.80-5.40) m/uL Hgb (11.4-16.0) gm/dL Hct (34.0-46.0) % Lymphocytes # (1.0-4.8) k/uL Sodium (137-145) mmol/L Chloride (98-107) mmol/L BUN (7-17) mg/dL Creatinine (0.52-1.04) mg/dL Glucose (74-99) mg/dL POC Glucose (mg/dL) 244 H 227 H (70-110) mg/dL Calcium (8.4-10.2) mg/dL Urine Appearance Bloody H (Clear) Urine RBC >182 H (0-5) /hpf Urine WBC 70 H (0-5) /hpf 09/11/23 09/11/23 09/11/23 Range/Units 06:13 06:39 06:39 RBC 3.37 L (3.80-5.40) m/uL Hgb 9.5 L (11.4-16.0) gm/dL Hct 29.1 L (34.0-46.0) % Lymphocytes # 0.7 L (1.0-4.8) k/uL Sodium 133 L (137-145) mmol/L Chloride 96 L (98-107) mmol/L BUN 46 H (7-17) mg/dL Creatinine 1.87 H (0.52-1.04) mg/dL Glucose 241 H (74-99) mg/dL POC Glucose (mg/dL) 272 H (70-110) mg/dL Calcium 8.3 L (8.4-10.2) mg/dL Urine Appearance (Clear) Urine RBC (0-5) /hpf Urine WBC (0-5) /hpf
--- NOTE | 2023-09-11 13:42 | P.PN ---
Subjective Progress Note Date: 09/11/23 This is an 83 year old female with medical history of diabetes mellitus type 2, hypertension, hypothyroidism, chronic lower extremity edema, venous insufficiency present to the emergency department sent in from PCP office for lower extremity edema and heart rate in the 130s revealing atrial fibrillation with RVR on EKG. Patients does admit to having palpiations and racing heart at home but denies any chest pain, denies shortness of breath. No fever or chills. Patient was recently admitted to the hospital a few weeks ago with new onset atrial fibrillation was in RVR at that time, and had evidence of lower extremity cellulitis of the left leg was evaluated by ID and discharged on oral keflex. Echocardiogram in July of 2023 shows normal LV systolic function and mild to moderate mitral regurgitation. Patient was discharged also on eliquis and metoprolol. On admission patient is found to be in afib RVR. Chest xray reveals cardiomegaly and pulmonary venous congestion. Correlate with BNP for congestive heart failure. COPD changes. Patient reports incontinence of loose stool multiple episodes worsened by antibiotic use. Does not want any antibiotics at this time. She was admitted to the hospital with cardiology consultation. Was given a dose of [place] [address], troponin negative x 3, BUN 39, creatinine 1.82, hemoglobin 9.4. 09/08/2023 Patient is evaluated today sitting up in chair. Continues on IV cefazolin and IV lasix. ID and cardiology following. Has not had any diarrhea at this time. States she takes metamucil and imodium multiple times a day at home to prevent loose stools. Does not want to see a specialist even on any outpatient basis. States she does have IBS. Renal function stable with creatinine 1.94. 09/09/2023 Patient evaluated today sitting in a chair she is currently refusing antibiotics at this time as well as her creams order for lower extremity. ID has signed off. Additionally cardiology has cleared this patient. Recommending to trans ition to oral Lasix. She did have worsening renal function with a creatinine today of 2.16. Her renal ultrasound shows bilateral hydronephrosis could be chronic given patient's lack of symptomology. 09/10/2023 Patient was considered for discharge today however she does not report hematuria and there is gross hematuria visualized on return when indwelling catheter was placed. Patient was having intermittent episodes of urinary retention and did have a bladder ultrasound done showing a right and left kidney hydronephrosis. Kidney function is improving with a BUN of 46 and a creatinine of 1.67. Has been cleared by ID and cardiology at this time. No antibiotics are required at discharge. The redness of the lower extremity has improved and patient is being monitored off antibiotic therapy at this time. She was refusing antibiotics regardless. Cardiology has cleared recommending oral Lasix. 09/11/2023 Patient is evaluated today resting in bed. She was given a dose of IV Lasix 80 mg yesterday and today her creatinine has worsened as well as her sodium has decreased to 133. We will recommend to hold off on Lasix at this time. She does have evidence of ankle swelling on the right side. We will recommend to continue with Domo wraps for this leg if she will tolerate them. 8 a chest x-ray was completed which does not show any acute fracture there is concern for soft tissue swelling. Patient was seen by urology who recommended to continue with indwelling catheter for 1-2 weeks before completing a voiding trial. Hematuria has resolved for now. REVIEW OF SYSTEMS: CONSTITUTIONAL: No fever, no malaise, no fatigue. HEENT: No recent visual problems or hearing problems. Denied any sore throat. CARDIOVASCULAR: No chest pain, orthopnea, PND, no palpitations, no syncope. PULMONARY: No shortness of breath, no cough, no hemoptysis. GASTROINTESTINAL: Reports diarrhea, no nausea, no vomiting, no abdominal pain. Reports red urine. NEUROLOGICAL: No headaches, no weakness, no numbness. PHYSICAL EXAMINATION: GENERAL: The patient is alert and oriented x3, not in any acute distress. Well developed, well nourished. HEENT: Pupils are round and equally reacting to light. EOMI. No scleral icterus. No conjunctival pallor. Normocephalic, atraumatic. No pharyngeal erythema. No thyromegaly. CARDIOVASCULAR: S1 and S2 present. No murmurs, rubs, or gallops. PULMONARY: Chest is clear to auscultation, no wheezing or crackles. ABDOMEN: Soft, nontender, nondistended, normoactive bowel sounds. No palpable organomegaly. Indwelling catheter in place, urine is pale yellow. MUSCULOSKELETAL: No joint swelling or deformity. EXTREMITIES: No cyanosis, clubbing, or pedal edema. Right ankle swelling. NEUROLOGICAL: Gross neurological examination did not reveal any focal deficits. Weakness SKIN: No rashes. Assessment and Plan -Atrial fibrillation with RVR on admission was new onset back in July currently anticoagulated with eliquis, patient has been evaluated by cardiology and resumed on home dosing of metoprolol heart rate is now improved continue with cardiac telemetry monitoring -Acute heart failure [place] [address] started on IV lasix 40. Patient diuresed and was transitioned to oral lasix. Put back on IV lasix by cardiology has worsening renal function. Recommending to hold the lasix. -Hyponatremia from diuresis. -Acute on chronic kidney injury prerenal from heart failure component of urinary retention. -Hematuria and urinary retention plan is to check urinalysis, insert indwelling catheter we will start flomax and place urology consultation. Discharge will be held for evaluation. Bladder US does reveal hydronephrosis. -Diarrhea unclear etiology was on metamucil outpatient without improvement patient feels was worsened by antibiotics. Will check for C.dif and give antidiarrheals. -Left lower extremity cellulitis noncompliant without patient therapy was recently discharged with oral keflex. Patient is currently refusing IV cefazolin and ID has signed off. -Diabetes Mellitus type 2 not on any oral diabetic agents or insulin outpatient will recommending while inpatient accuchecks ACHS and sliding scale insulin coverage. -Hypertension currently low normotensive -Hx of dyslipidemia resumed on lipitor home medication -Hypothyroidism recommending to continue current levothyroxine dosing TSH is within normal limits -Hx of peripheral vascular disease -Osteoarthritis -Hx of uterine cancer -Urinary incontinence GI prophylaxis DVT prophylaxis Full Code The impression and plan of care has been dictated by Tonya Vargas, Nurse Practitioner as directed. Dr. Nitin MD I have performed a history and physical examination and medical decision making of this patient, discussed the same with the dictator, and agree with the dictators assessment and plan as written, documented as a scribe. Based on total visit time, I have performed more than 50% of this visit. Objective - Vital Signs Vital signs: Vital Signs Temp 98.2 F 09/11/23 08:37 Pulse 83 09/11/23 08:37 Resp 18 09/11/23 08:37 BP 128/70 09/11/23 08:37 Pulse Ox 99 09/11/23 08:37 FiO2 Intake & Output 09/10/23 09/11/23 09/11/23 18:59 06:59 18:59 Intake Total 118 550 10 Output Total 2550 1450 450 Balance -8993 -900 -440 Weight 63.4 kg Intake: IV 10 10 Invasive Line 2 10 10 Oral 118 540 Output: Urine 2550 1450 450 Straight 1800 Uretheral (Streeter) 450 Other: Voiding Method Indwelling Catheter Indwelling Catheter Indwelling Catheter # Voids 1 - Labs CBC & Chem 7: 09/11/23 06:39 09/11/23 06:39 Labs: Abnormal Lab Results - Last 24 Hours (Table) 09/10/23 09/10/23 09/10/23 Range/Units 11:51 13:00 16:15 RBC (3.80-5.40) m/uL Hgb (11.4-16.0) gm/dL Hct (34.0-46.0) % Lymphocytes # (1.0-4.8) k/uL Sodium (137-145) mmol/L Chloride (98-107) mmol/L BUN (7-17) mg/dL Creatinine (0.52-1.04) mg/dL Glucose (74-99) mg/dL POC Glucose (mg/dL) 311 H 244 H (70-110) mg/dL Calcium (8.4-10.2) mg/dL Urine Appearance Bloody H (Clear) Urine RBC >182 H (0-5) /hpf Urine WBC 70 H (0-5) /hpf 09/10/23 09/11/23 09/11/23 Range/Units 20:07 06:13 06:39 RBC 3.37 L (3.80-5.40) m/uL Hgb 9.5 L (11.4-16.0) gm/dL Hct 29.1 L (34.0-46.0) % Lymphocytes # 0.7 L (1.0-4.8) k/uL Sodium (137-145) mmol/L Chloride (98-107) mmol/L BUN (7-17) mg/dL Creatinine (0.52-1.04) mg/dL Glucose (74-99) mg/dL POC Glucose (mg/dL) 227 H 272 H (70-110) mg/dL Calcium (8.4-10.2) mg/dL Urine Appearance (Clear) Urine RBC (0-5) /hpf Urine WBC (0-5) /hpf 09/11/23 Range/Units 06:39 RBC (3.80-5.40) m/uL Hgb (11.4-16.0) gm/dL Hct (34.0-46.0) % Lymphocytes # (1.0-4.8) k/uL Sodium 133 L (137-145) mmol/L Chloride 96 L (98-107) mmol/L BUN 46 H (7-17) mg/dL Creatinine 1.87 H (0.52-1.04) mg/dL Glucose 241 H (74-99) mg/dL POC Glucose (mg/dL) (70-110) mg/dL Calcium 8.3 L (8.4-10.2) mg/dL Urine Appearance (Clear) Urine RBC (0-5) /hpf Urine WBC (0-5) /hpf Assessment and Plan Time with Patient: Less than 30
[2023-09-11 16:33] LABS: Glucose,Whole Blood 235 mg/dL (70-110)
[2023-09-11] MEDS: LIDOCAINE 4% CREAM 5 GM TUBE TOPICAL SCH (16:45)
[2023-09-11] MEDS ORDERED: DICLOFENAC SODIUM GEL 100 GM TUBE TOPICAL SCH (18:00)
[2023-09-11 20:04] LABS: Glucose,Whole Blood 384 mg/dL (70-110)
[2023-09-11] MEDS: INSULIN DETEMIR (LEVEMIR) 100 UNIT/ML SYR SQ SCH (20:13)
[2023-09-12 06:02] LABS: Glucose,Whole Blood 234 mg/dL (70-110)
[2023-09-12] MEDS: LEVOTHYROXINE 25 MCG TAB PO SCH (06:38)
[2023-09-12] MEDS: INSULIN ASPART (NovoLOG) 100 UNIT/ML VIAL SQ SCH ×4 (06:38→21:19)
[2023-09-12 07:03] LABS: African American GFR (CKD) 32 (>60 ml/min/1.73 sqM); Anion Gap 9 mmol/L; Blood Urea Nitrogen 47 mg/dL (7-17); Calcium 8.8 mg/dL (8.4-10.2); Carbon Dioxide 29 mmol/L (22-30); Chloride 96 mmol/L (98-107); Glucose 123 mg/dL (74-99); Non-African American GFR(CKD) 28 (>60 ml/min/1.73 sqM); Potassium 3.5 mmol/L (3.5-5.1); Sodium 134 mmol/L (137-145)
[2023-09-12] MEDS: ATORVASTATIN 20 MG TAB PO SCH (09:42)
[2023-09-12] MEDS: APIXABAN 2.5 MG TABLET PO SCH ×2 (09:42→21:18)
[2023-09-12] MEDS: PANTOPRAZOLE 40 MG/10 ML VIAL IVP SCH (09:42)
[2023-09-12] MEDS: TAMSULOSIN 0.4 MG CAP.ER.24H PO SCH (09:43)
[2023-09-12] MEDS: CHOLESTYRAMINE (WITH SUGAR) 4 GM PACKET PO SCH ×2 (09:43→18:05)
[2023-09-12] MEDS: METOPROLOL SUCCINATE (ER) 50 MG TAB.ER.24H PO SCH (09:43)
[2023-09-12] MEDS: LOPERAMIDE 2 MG CAP PO SCH ×5 (09:43→21:19)
[2023-09-12] MEDS: LIDOCAINE 4% CREAM 5 GM TUBE TOPICAL SCH ×2 (09:44→21:21)
[2023-09-12] MEDS: TRIAMCINOLONE 0.1% CREAM 80 GM TUBE TOPICAL SCH ×2 (09:45→21:21)
[2023-09-12 11:40] LABS: Glucose,Whole Blood 291 mg/dL (70-110)
--- NOTE | 2023-09-12 13:31 | P.PN ---
Subjective Progress Note Date: 09/12/23 HISTORY OF PRESENT ILLNESS: This is a 83-year-old female with a past medical history significant for hy pertension, hyperlipidemia, chronic lower extremity edema, and atrial fibrillation. Patient follows in the office with Dr. Gallardo. We have been asked to see the patient in consultation for CHF and atrial fibrillation. Patient examined at the bedside. Patient was sent to the ER by her primary care ph ysician secondary to tachycardia. She was found to be in afib with RVR. She remains in afib with RVR. She remains in atrial fibrillation with heart rate around 100 at time of examination. She denies chest pain or pressure. She denies SOB. She states she was recently on antibiotics for lower extremity cellulitis but stopped taking it due to worsening diarrhea. * EKG reveals atrial fibrillation with a heart rate around 100. No signs of acute ischemia. * Chest xray cardiomegaly and mild pulmonary vascular congestion. COPD changes. * Laboratory data: Hemoglobin 9.4. BUN 39. Creatinine 1.82. Troponin negative 2. ProBNP 12,500. * Current home cardiac medications include Eliquis 2.5 mg twice a day and metoprolol succinate 100 mg twice a day * Most recent echocardiogram obtained in July 2023 revealed ejection fraction 55-60%, mild pulmonary hypertension, and mild to moderate MR * Patient underwent Lexiscan stress test in June 2022 revealing abnormal nuclear scan showing ischemia involving inferior lateral wall 09/08/2023 Patient examined this morning at the bedside. Patient currently denies chest pain or pressure. She reports improvement in her shortness of breath. Telemetry reveals atrial fibrillation with controlled ventricular rate. 09/09/2023 Patient examined this morning at the bedside. Patient denies chest pain or pressure. She denies shortness of breath. Remains on IV Lasix 40 mg daily. Creatinine slightly increased today to 2.19. Telemetry reveals atrial fibrillation with controlled ventricular rate. 09/10 The patient did have Streeter catheter placed secondary to urinary retention. Telemetry reveals A. fib with controlled ventricular rates. Creatinine did actually improved to 1.67. She still does have significant lower extremity edema bilaterally. She complains of right ankle pain. 09/11 Patient has had on and off urinary retention and yesterday had gross hematuria now pink in the morning and does seem to be clear after Lasix. Patient has been continued on eliquis 2.5 mg twice daily. She is followed by urology. Patient remains in atrial fibrillation, heart rate in the 70s and 80s, blood pressure 133/77, pulse ox 90% on room air. Hemoglobin 9.5, sodium 133, potassium 3.7, BUN 46 and creatinine 1.87. 09/12 Hematuria seems to have resolved. She has been continued on eliquis 2.5 mg twice daily. She remains in atrial fibrillation in the 90s. Patient has been on Toprol-XL 150 mg twice daily. PHYSICAL EXAM: VITAL SIGNS: Reviewed. GENERAL: Well-developed in no acute distress. HEENT: Head is normocephalic. Pupils are equal, round. Sclerae anicteric. Mucous membranes of the mouth are moist. Neck supple. No JVD or thyromegaly LUNGS: Respirations even and unlabored. Lungs essentially clear to auscultation bilaterally. HEART: Irregular rate and rhythm. S1 and S2 heard. Systolic murmur noted. ABDOMEN: Soft. Nondistended. Nontender. EXTREMITIES: Normal range of motion. No clubbing or cyanosis. Peripheral pulses intact. 2+ bilateral lower extremity edema with left lower extremity erythema concerning for cellulitis. NEUROLOGIC: Awake and alert. Oriented x 3. ASSESSMENT: Paroxysmal atrial fibrillation with RVR Left lower extremity cellulitis Acute heart failure with preserved ejection fraction, 55-60%, proBNP 12,500 Hypertension Hyperlipidemia Chronic kidney disease Abnormal stress test in June 2022 revealing inferior lateral reversibility Chronic diarrhea with history of IBS PLAN: Change beta nereyda to metoprolol tartrate 75 mg 3 times daily and add verapamil 40 mg 3 times daily Continue eliquis and monitor hematuria Monitor kidney function Nurse practitioner note has been reviewed, I agree with the documented findings and plan of care. Patient was seen and examined. Objective - Vital Signs Vital signs: Vital Signs Temp 98.0 F 09/12/23 12:20 Pulse 77 09/12/23 12:20 Resp 17 09/12/23 12:20 BP 108/69 09/12/23 12:20 Pulse Ox 97 09/12/23 12:20 FiO2 Intake & Output 09/11/23 09/12/23 09/12/23 18:59 06:59 18:59 Intake Total 368 118 338 Output Total 1900 1800 550 Balance -3812 -1682 -212 Weight 64.1 kg Intake: IV 10 Invasive Line 2 10 Oral 358 118 338 Output: Urine 1900 1800 550 Uretheral (Streeter) 1200 Other: Voiding Method Indwelling Catheter Indwelling Catheter Indwelling Catheter - Labs CBC & Chem 7: 09/11/23 06:39 09/12/23 06:17 Labs: Abnormal Lab Results - Last 24 Hours (Table) 09/11/23 09/11/23 09/12/23 Range/Units 16:31 20:01 06:00 Sodium (137-145) mmol/L Chloride (98-107) mmol/L BUN (7-17) mg/dL Creatinine (0.52-1.04) mg/dL Glucose (74-99) mg/dL POC Glucose (mg/dL) 235 H 384 H 234 H (70-110) mg/dL 09/12/23 09/12/23 Range/Units 06:17 11:38 Sodium 134 L (137-145) mmol/L Chloride 96 L (98-107) mmol/L BUN 47 H (7-17) mg/dL Creatinine 1.70 H (0.52-1.04) mg/dL Glucose 123 H (74-99) mg/dL POC Glucose (mg/dL) 291 H (70-110) mg/dL
[2023-09-12 14:57] LABS: Appearance,Urine Clear (Clear); Bacteria,Urine Rare /hpf; Bilirubin,Urine Negative (Negative); Blood,Urine Large (Negative); Color,Urine Colorless; Glucose,Urine (UA) 1+ (Negative); Ketones,Urine Negative (Negative); Leukocyte Esterase,Urine Large (Negative); Mucus,Urine Rare /hpf; Nitrite,Urine Negative (Negative); Protein,Urine Trace (Negative); RBC,Urine 5 /hpf (0-5); Specific Gravity,Urine 1.007 (1.001-1.035); Squamous Epithelial Cell,Urine <1 /hpf (0-4); Urobilinogen,Urine <2.0 mg/dL (<2.0); WBC,Urine 26 /hpf (0-5)
[2023-09-12 16:44] LABS: Glucose,Whole Blood 189 mg/dL (70-110)
[2023-09-12] MEDS: VERAPAMIL 40 MG TAB PO SCH ×3 (16:51→21:17)
[2023-09-12] MEDS: METOPROLOL TARTRATE 25 MG TAB PO SCH ×2 (17:11→21:18)
[2023-09-12] MEDS: NYSTATIN 100,000UNIT/GM CREAM 30 GM TUBE TOPICAL SCH ×2 (18:05→21:21)
[2023-09-12 20:19] LABS: Glucose,Whole Blood 316 mg/dL (70-110)
[2023-09-12] MEDS: INSULIN DETEMIR (LEVEMIR) 100 UNIT/ML SYR SQ SCH (21:19)
--- NOTE | 2023-09-12 22:13 | P.PN ---
Subjective Progress Note Date: 09/12/23 This is an 83 year old female with medical history of diabetes mellitus type 2, hypertension, hypothyroidism, chronic lower extremity edema, venous insufficiency present to the emergency department sent in from PCP office for lower extremity edema and heart rate in the 130s revealing atrial fibrillation with RVR on EKG. Patients does admit to having palpiations and racing heart at home but denies any chest pain, denies shortness of breath. No fever or chills. Patient was recently admitted to the hospital a few weeks ago with new onset atrial fibrillation was in RVR at that time, and had evidence of lower extremity cellulitis of the left leg was evaluated by ID and discharged on oral keflex. Echocardiogram in July of 2023 shows normal LV systolic function and mild to moderate mitral regurgitation. Patient was discharged also on eliquis and metoprolol. On admission patient is found to be in afib RVR. Chest xray reveals cardiomegaly and pulmonary venous congestion. Correlate with BNP for congestive heart failure. COPD changes. Patient reports incontinence of loose stool multiple episodes worsened by antibiotic use. Does not want any antibiotics at this time. She was admitted to the hospital with cardiology consultation. Was given a dose of [place] [address], troponin negative x 3, BUN 39, creatinine 1.82, hemoglobin 9.4. 09/08/2023 Patient is evaluated today sitting up in chair. Continues on IV cefazolin and IV lasix. ID and cardiology following. Has not had any diarrhea at this time. States she takes metamucil and imodium multiple times a day at home to prevent loose stools. Does not want to see a specialist even on any outpatient basis. States she does have IBS. Renal function stable with creatinine 1.94. 09/09/2023 Patient evaluated today sitting in a chair she is currently refusing antibiotics at this time as well as her creams order for lower extremity. ID has signed off. Additionally cardiology has cleared this patient. Recommending to trans ition to oral Lasix. She did have worsening renal function with a creatinine today of 2.16. Her renal ultrasound shows bilateral hydronephrosis could be chronic given patient's lack of symptomology. 09/10/2023 Patient was considered for discharge today however she does not report hematuria and there is gross hematuria visualized on return when indwelling catheter was placed. Patient was having intermittent episodes of urinary retention and did have a bladder ultrasound done showing a right and left kidney hydronephrosis. Kidney function is improving with a BUN of 46 and a creatinine of 1.67. Has been cleared by ID and cardiology at this time. No antibiotics are required at discharge. The redness of the lower extremity has improved and patient is being monitored off antibiotic therapy at this time. She was refusing antibiotics regardless. Cardiology has cleared recommending oral Lasix. 09/11/2023 Patient is evaluated today resting in bed. She was given a dose of IV Lasix 80 mg yesterday and today her creatinine has worsened as well as her sodium has decreased to 133. We will recommend to hold off on Lasix at this time. She does have evidence of ankle swelling on the right side. We will recommend to continue with Domo wraps for this leg if she will tolerate them. 8 a chest x-ray was completed which does not show any acute fracture there is concern for soft tissue swelling. Patient was seen by urology who recommended to continue with indwelling catheter for 1-2 weeks before completing a voiding trial. Hematuria has resolved for now. 09/12/2023 Patient remains on stepdown unit was anticipated for discharge today. IDC remains in place urine is slightly pink tinged today. Less yellow. Lawrence she was febrile and did have a temp of 100.9. Sepsis work up initiated. Had UA showing large blood large leukocyte esterase, viral panel negative for influenza, covid, rsv. Procalcitonin comes back at 0.18. CRP 17.5. Sodium better 134 and creatinine better 1.70. REVIEW OF SYSTEMS: CONSTITUTIONAL: Lawrence febrile, no malaise, no fatigue. HEENT: No recent visual problems or hearing problems. Denied any sore throat. CARDIOVASCULAR: No chest pain, orthopnea, PND, no palpitations, no syncope. PULMONARY: No shortness of breath, no cough, no hemoptysis. GASTROINTESTINAL: Reports diarrhea, no nausea, no vomiting, no abdominal pain. Reports red urine. NEUROLOGICAL: No headaches, no weakness, no numbness. PHYSICAL EXAMINATION: GENERAL: The patient is alert and oriented x3, not in any acute distress. Well developed, well nourished. HEENT: Pupils are round and equally reacting to light. EOMI. No scleral icterus. No conjunctival pallor. Normocephalic, atraumatic. No pharyngeal erythema. No thyromegaly. CARDIOVASCULAR: S1 and S2 present. No murmurs, rubs, or gallops. PULMONARY: Chest is clear to auscultation, no wheezing or crackles. ABDOMEN: Soft, nontender, nondistended, normoactive bowel sounds. No palpable organomegaly. Indwelling catheter in place, urine is pale yellow. MUSCULOSKELETAL: No joint swelling or deformity. EXTREMITIES: No cyanosis, clubbing, or pedal edema. Right ankle swelling. NEUROLOGICAL: Gross neurological examination did not reveal any focal deficits. Weakness SKIN: No rashes. Assessment and Plan -Atrial fibrillation with RVR on admission was new onset back in July currently anticoagulated with eliquis, patient has been evaluated by cardiology and resumed on home dosing of metoprolol heart rate is now improved continue with cardiac telemetry monitoring -Acute heart [place] [address] started on IV lasix 40. Patient diuresed and was transitioned to oral lasix. Put back on IV lasix by cardiology has worsening renal function. Recommending to hold the lasix. -Hyponatremia from diuresis. -Acute on chronic kidney injury prerenal from heart failure component of urinary retention. -Fever work up in progress. Viral panel negative. Urinalysis suspicious for UTI on IV ceftriaxone. AM chest xray ordered. ID following. -Hematuria and urinary retention plan is to check urinalysis, insert indwelling catheter we will start flomax and place urology consultation. Bladder US does reveal hydronephrosis. Recommending to keep IDC in for 1 to 2 weeks and f/u outpatient for voiding trial. -Diarrhea unclear etiology was on metamucil outpatient without improvement patient feels was worsened by antibiotics. Will check for C.dif and give antidiarrheals. -Left lower extremity cellulitis noncompliant without patient therapy was recently discharged with oral keflex. Less red. ID felt more of a dermatitis than cellulitis. -Diabetes Mellitus type 2 not on any oral diabetic agents or insulin outpatient will recommending while inpatient accuchecks ACHS and sliding scale insulin coverage. -Hypertension currently low normotensive -Hx of dyslipidemia resumed on lipitor home medication -Hypothyroidism recommending to continue current levothyroxine dosing TSH is within normal limits -Hx of peripheral vascular disease -Osteoarthritis -Hx of uterine cancer -Urinary incontinence GI prophylaxis DVT prophylaxis Full Code The impression and plan of care has been dictated by Tonya Vargas, Nurse Practitioner as directed. Dr. Nitin MD I have performed a history and physical examination and medical decision making of this patient, discussed the same with the dictator, and agree with the dictators assessment and plan as written, documented as a scribe. Based on total visit time, I have performed more than 50% of this visit. Objective - Vital Signs Vital signs: Vital Signs Temp 100.9 F H 09/12/23 08:15 Pulse 96 09/12/23 08:15 Resp 18 09/12/23 08:15 BP 122/77 09/12/23 08:15 Pulse Ox 99 09/12/23 08:15 FiO2 Intake & Output 09/11/23 09/12/23 09/12/23 18:59 06:59 18:59 Intake Total 368 118 338 Output Total 1900 1800 550 Balance -1532 -1682 -212 Weight 64.1 kg Intake: IV 10 Invasive Line 2 10 Oral 358 118 338 Output: Urine 1900 1800 550 Uretheral (Streeter) 1200 Other: Voiding Method Indwelling Catheter Indwelling Catheter Indwelling Catheter - Labs CBC & Chem 7: 09/11/23 06:39 09/12/23 06:17 Labs: Abnormal Lab Results - Last 24 Hours (Table) 09/11/23 09/11/23 09/12/23 Range/Units 16:31 20:01 06:00 Sodium (137-145) mmol/L Chloride (98-107) mmol/L BUN (7-17) mg/dL Creatinine (0.52-1.04) mg/dL Glucose (74-99) mg/dL POC Glucose (mg/dL) 235 H 384 H 234 H (70-110) mg/dL 09/12/23 09/12/23 Range/Units 06:17 11:38 Sodium 134 L (137-145) mmol/L Chloride 96 L (98-107) mmol/L BUN 47 H (7-17) mg/dL Creatinine 1.70 H (0.52-1.04) mg/dL Glucose 123 H (74-99) mg/dL POC Glucose (mg/dL) 291 H (70-110) mg/dL Assessment and Plan Time with Patient: Less than 30
[2023-09-13 06:12] LABS: Glucose,Whole Blood 195 mg/dL (70-110)
[2023-09-13] MEDS: INSULIN ASPART (NovoLOG) 100 UNIT/ML VIAL SQ SCH ×2 (06:29→14:03)
[2023-09-13] MEDS: LEVOTHYROXINE 25 MCG TAB PO SCH (06:29)
[2023-09-13 07:00] LABS: Basophils % (A) 1 %; Eosinophils # (A) 0.2 k/uL (0-0.7); Eosinophils % (A) 3 %; HCT 29.9 % (34.0-46.0); HGB 9.7 gm/dL (11.4-16.0); Hypochromasia Slight; Lymphocytes # (A) 0.9 k/uL (1.0-4.8); Lymphocytes % (A) 17 %; MCH 28.1 pg (25.0-35.0); MCHC 32.6 g/dL (31.0-37.0); MCV 86.1 fL (80.0-100.0); Mean Platelet Volume 7.4; Monocytes # (A) 0.4 k/uL (0-1.0); Monocytes % (A) 7 %; Neutrophils # (A) 3.7 k/uL (1.3-7.7); Neutrophils % (A) 70 %; Platelet Count 329 k/uL (150-450); RBC 3.47 m/uL (3.80-5.40); RDW 14.8 % (11.5-15.5); WBC 5.3 k/uL (3.8-10.6)
[2023-09-13 07:17] LABS: African American GFR (CKD) 33 (>60 ml/min/1.73 sqM); Anion Gap 10 mmol/L; Blood Urea Nitrogen 43 mg/dL (7-17); Calcium 8.7 mg/dL (8.4-10.2); Carbon Dioxide 30 mmol/L (22-30); Chloride 95 mmol/L (98-107); Glucose 171 mg/dL (74-99); Non-African American GFR(CKD) 29 (>60 ml/min/1.73 sqM); Potassium 3.8 mmol/L (3.5-5.1); Sodium 135 mmol/L (137-145)
[2023-09-13 08:45] VITALS: PULSE 83; RESP 17
[2023-09-13 09:35] VITALS: BMI 25.8
[2023-09-13] MEDS: LOPERAMIDE 2 MG CAP PO SCH ×2 (10:03→14:14)
[2023-09-13] MEDS: CHOLESTYRAMINE (WITH SUGAR) 4 GM PACKET PO SCH (10:04)
[2023-09-13] MEDS: APIXABAN 2.5 MG TABLET PO SCH (10:16)
[2023-09-13] MEDS: TAMSULOSIN 0.4 MG CAP.ER.24H PO SCH (10:16)
[2023-09-13] MEDS: PANTOPRAZOLE 40 MG/10 ML VIAL IVP SCH (10:16)
[2023-09-13] MEDS: ATORVASTATIN 20 MG TAB PO SCH (10:16)
[2023-09-13] MEDS: METOPROLOL TARTRATE 25 MG TAB PO SCH ×2 (10:16→16:30)
[2023-09-13] MEDS: VERAPAMIL 40 MG TAB PO SCH (10:17)
[2023-09-13] MEDS: NYSTATIN 100,000UNIT/GM CREAM 30 GM TUBE TOPICAL SCH (10:17)
[2023-09-13] MEDS: LIDOCAINE 4% CREAM 5 GM TUBE TOPICAL SCH (10:17)
[2023-09-13] MEDS: TRIAMCINOLONE 0.1% CREAM 80 GM TUBE TOPICAL SCH (10:17)
[2023-09-13 12:00] LABS: Glucose,Whole Blood 183 mg/dL (70-110)
--- NOTE | 2023-09-13 12:44 | P.PN ---
Subjective Progress Note Date: 09/13/23 HISTORY OF PRESENT ILLNESS: This is a 83-year-old female with a past medical history significant for hy pertension, hyperlipidemia, chronic lower extremity edema, and atrial fibrillation. Patient follows in the office with Dr. Gallardo. We have been asked to see the patient in consultation for CHF and atrial fibrillation. Patient examined at the bedside. Patient was sent to the ER by her primary care ph ysician secondary to tachycardia. She was found to be in afib with RVR. She remains in afib with RVR. She remains in atrial fibrillation with heart rate around 100 at time of examination. She denies chest pain or pressure. She denies SOB. She states she was recently on antibiotics for lower extremity cellulitis but stopped taking it due to worsening diarrhea. * EKG reveals atrial fibrillation with a heart rate around 100. No signs of acute ischemia. * Chest xray cardiomegaly and mild pulmonary vascular congestion. COPD changes. * Laboratory data: Hemoglobin 9.4. BUN 39. Creatinine 1.82. Troponin negative 2. ProBNP 12,500. * Current home cardiac medications include Eliquis 2.5 mg twice a day and metoprolol succinate 100 mg twice a day * Most recent echocardiogram obtained in July 2023 revealed ejection fraction 55-60%, mild pulmonary hypertension, and mild to moderate MR * Patient underwent Lexiscan stress test in June 2022 revealing abnormal nuclear scan showing ischemia involving inferior lateral wall 09/08/2023 Patient examined this morning at the bedside. Patient currently denies chest pain or pressure. She reports improvement in her shortness of breath. Telemetry reveals atrial fibrillation with controlled ventricular rate. 09/09/2023 Patient examined this morning at the bedside. Patient denies chest pain or pressure. She denies shortness of breath. Remains on IV Lasix 40 mg daily. Creatinine slightly increased today to 2.19. Telemetry reveals atrial fibrillation with controlled ventricular rate. 09/10 The patient did have Streeter catheter placed secondary to urinary retention. Telemetry reveals A. fib with controlled ventricular rates. Creatinine did actually improved to 1.67. She still does have significant lower extremity edema bilaterally. She complains of right ankle pain. 09/11 Patient has had on and off urinary retention and yesterday had gross hematuria now pink in the morning and does seem to be clear after Lasix. Patient has been continued on eliquis 2.5 mg twice daily. She is followed by urology. Patient remains in atrial fibrillation, heart rate in the 70s and 80s, blood pressure 133/77, pulse ox 90% on room air. Hemoglobin 9.5, sodium 133, potassium 3.7, BUN 46 and creatinine 1.87. 09/12 Hematuria seems to have resolved. She has been continued on eliquis 2.5 mg twice daily. She remains in atrial fibrillation in the 90s. Patient has been on Toprol-XL 150 mg twice daily. 09/13 Today, beta nereyda was increased to 75 mg 3 times daily and verapamil 40 3 times daily was added. Patient did take his medications yesterday but refused of verapamil this morning. She is unclear why she does not want to take it but she is in agreement after discussion with Dr. Banuelos. Telemetry is atrial fibrillation. Heart rate is in the 80s, blood pressure 120/65, pulse ox 100% on room air. Repeat blood work reveals hemoglobin 9.7, BUN 43 creatinine 1.66. PHYSICAL EXAM: VITAL SIGNS: Reviewed. GENERAL: Well-developed in no acute distress. HEENT: Head is normocephalic. Pupils are equal, round. Sclerae anicteric. Mucous membranes of the mouth are moist. Neck supple. No JVD or thyromegaly LUNGS: Respirations even and unlabored. Lungs essentially clear to auscultation bilaterally. HEART: Irregular rate and rhythm. S1 and S2 heard. Systolic murmur noted. ABDOMEN: Soft. Nondistended. Nontender. EXTREMITIES: Normal range of motion. No clubbing or cyanosis. Peripheral pulses intact. 2+ bilateral lower extremity edema with left lower extremity erythema concerning for cellulitis. NEUROLOGIC: Awake and alert. Oriented x 3. ASSESSMENT: Paroxysmal atrial fibrillation with RVR Left lower extremity cellulitis Acute heart failure with preserved ejection fraction, 55-60%, proBNP 12,500 Hypertension Hyperlipidemia Chronic kidney disease Abnormal stress test in June 2022 revealing inferior lateral reversibility Chronic diarrhea with history of IBS PLAN: Continue patient on metoprolol tartrate 75 mg 3 times daily and verapamil 40 mg 3 times daily Continue eliquis and monitor hematuria Patient is cleared from cardiology for discharge. Patient may follow-up in the office with Dr. Diana Gallardo in 2 weeks. Nurse practitioner note has been reviewed, I agree with the documented findings and plan of care. Patient was seen and examined. Objective - Vital Signs Vital signs: Vital Signs Temp 98.1 F 09/13/23 08:00 Pulse 83 09/13/23 08:00 Resp 17 09/13/23 08:00 BP 120/65 09/13/23 08:00 Pulse Ox 100 09/13/23 08:00 FiO2 Intake & Output 09/12/23 09/13/23 09/13/23 18:59 06:59 18:59 Intake Total 574 540 Output Total 1150 1100 Balance -576 -560 Intake: Oral 574 540 Output: Urine 1150 1100 Other: Voiding Method Indwelling Catheter Indwelling Catheter # Bowel Movements 1 - Labs CBC & Chem 7: 09/13/23 06:07 09/13/23 06:07 Labs: Abnormal Lab Results - Last 24 Hours (Table) 09/12/23 09/12/23 09/12/23 Range/Units 11:38 12:35 12:35 RBC (3.80-5.40) m/uL Hgb (11.4-16.0) gm/dL Hct (34.0-46.0) % Lymphocytes # (1.0-4.8) k/uL Sodium (137-145) mmol/L Chloride (98-107) mmol/L BUN (7-17) mg/dL Creatinine (0.52-1.04) mg/dL Glucose (74-99) mg/dL POC Glucose (mg/dL) 291 H (70-110) mg/dL C-Reactive Protein 17.5 H (<1.0) mg/dL Procalcitonin 0.18 H (0.02-0.09) ng/mL Urine Protein (Negative) Urine Glucose (UA) (Negative) Urine Blood (Negative) Ur Leukocyte Esterase (Negative) Urine WBC (0-5) /hpf Urine Bacteria (None) /hpf Urine Mucus (None) /hpf 09/12/23 09/12/23 09/12/23 Range/Units 14:15 16:42 20:16 RBC (3.80-5.40) m/uL Hgb (11.4-16.0) gm/dL Hct (34.0-46.0) % Lymphocytes # (1.0-4.8) k/uL Sodium (137-145) mmol/L Chloride (98-107) mmol/L BUN (7-17) mg/dL Creatinine (0.52-1.04) mg/dL Glucose (74-99) mg/dL POC Glucose (mg/dL) 189 H 316 H (70-110) mg/dL C-Reactive Protein (<1.0) mg/dL Procalcitonin (0.02-0.09) ng/mL Urine Protein Trace H (Negative) Urine Glucose (UA) 1+ H (Negative) Urine Blood Large H (Negative) Ur Leukocyte Esterase Large H (Negative) Urine WBC 26 H (0-5) /hpf Urine Bacteria Rare H (None) /hpf Urine Mucus Rare H (None) /hpf 09/13/23 09/13/23 09/13/23 Range/Units 06:07 06:07 06:08 RBC 3.47 L (3.80-5.40) m/uL Hgb 9.7 L (11.4-16.0) gm/dL Hct 29.9 L (34.0-46.0) % Lymphocytes # 0.9 L (1.0-4.8) k/uL Sodium 135 L (137-145) mmol/L Chloride 95 L (98-107) mmol/L BUN 43 H (7-17) mg/dL Creatinine 1.66 H (0.52-1.04) mg/dL Glucose 171 H (74-99) mg/dL POC Glucose (mg/dL) 195 H (70-110) mg/dL C-Reactive Protein (<1.0) mg/dL Procalcitonin (0.02-0.09) ng/mL Urine Protein (Negative) Urine Glucose (UA) (Negative) Urine Blood (Negative) Ur Leukocyte Esterase (Negative) Urine WBC (0-5) /hpf Urine Bacteria (None) /hpf Urine Mucus (None) /hpf
[2023-09-13 16:55] VITALS: BP 108/64; TEMP 98.3
== END 2023-09-13 16:34 | disposition home or self-care (01) | DRG 308 ==
LOC: EC 19:25 → 6NMEDSUR 09-07 00:48 → 3SCARD 09-07 02:48 → OBSVTOIN 09-08 15:29
PROVIDERS: ADMIT Hospitalist; ATTEND Hospitalist
DX: I48.0 Paroxysmal atrial fibrillation (principal); I50.31 Acute diastolic (congestive) heart failure; I13.0 Hypertensive heart and chronic kidney disease with heart failure and stage 1 through stage 4 chronic kidney disease, or unspecified chronic kidney disease; E87.1 Hypo-osmolality and hyponatremia; N13.30 Unspecified hydronephrosis; L03.116 Cellulitis of left lower limb; E11.22 Type 2 diabetes mellitus with diabetic chronic kidney disease; E11.51 Type 2 diabetes mellitus with diabetic peripheral angiopathy without gangrene; J44.9 Chronic obstructive pulmonary disease, unspecified; Z28.310 Unvaccinated for COVID-19; I87.2 Venous insufficiency (chronic) (peripheral); I34.0 Nonrheumatic mitral (valve) insufficiency; E03.9 Hypothyroidism, unspecified; N18.9 Chronic kidney disease, unspecified; K58.0 Irritable bowel syndrome with diarrhea; M19.90 Unspecified osteoarthritis, unspecified site; E78.5 Hyperlipidemia, unspecified; R31.0 Gross hematuria; R32 Unspecified urinary incontinence; R15.9 Full incontinence of feces; Z53.20 Procedure and treatment not carried out because of patient's decision for unspecified reasons; Z91.199 Patient's noncompliance with other medical treatment and regimen due to unspecified reason; Z79.01 Long term (current) use of anticoagulants; Z79.890 Hormone replacement therapy; Z79.899 Other long term (current) drug therapy; Z85.42 Personal history of malignant neoplasm of other parts of uterus; Z88.6 Allergy status to analgesic agent; Z88.3 Allergy status to other anti-infective agents
CPT/HCPCS: 36415; 71046; 76770; 80048; 80053; 81001; 83735; 83880; 84145; 84443; 84484; 85025; 85610; 85730; 86140; 87040; 87086; 87636; 93005; 96365; 96375; 96376; 99285

== ENCOUNTER 2023-10-23 18:54 | Inpatient (IN) | payer MEDICARE ==
[2023-10-23] MEDS ORDERED: DILTIAZEM DRIP BOLUS FROM BAG 1 MG SOLN IV ONE (19:54)
[2023-10-23] MEDS ORDERED: DILTIAZEM 125 MG in SODIUM CHLORIDE 0.9% 100 ML IV SCH (20:00)
--- NOTE | 2023-10-23 20:01 | ED ---
Arrhythmia/Palpitations HPI - General Chief Complaint: Arrhythmia/Palpitations Stated Complaint: Blood pressure; atrial fibrillation Time Seen by Provider: 10/23/23 19:43 Source: patient Mode of arrival: ambulatory Limitations: no limitations - History of Present Illness Initial Comments: This patient is an 83-year-old woman who presents with complaint that she has been having palpitations, occasional lightheadedness, and intermittent dyspnea. The patient relates that she has been having the symptoms going back 3 to 4 days or so. In taking her vital signs at home she has also noticed that her blood pressure has at times been low and she does have episodes where her heart rate is elevated. Patient notes that she had been admitted in the hospital in mid August. She was discharged but does not have a physician that she follows with, so she is out of the medications that were prescribed. She is denying chest pain. No fever or chills, cough, or infectious symptoms. Review of systems, she does note some chronic leg edema. MD Complaint: palpitations -: days(s) Context: occurred during rest, change in medication Arrhythmia History: atrial fibrillation Associated Symptoms: shortness of breath - Related Data Home Medications Medication Instructions Recorded Confirmed Levothyroxine Sodium 25 mcg PO DAILY 06/28/22 10/23/23 Psyllium Husk [Fiber Capsule] 3.2 gm PO BID 08/18/23 10/23/23 Previous Rx's Medication Instructions Recorded Atorvastatin [Lipitor] 20 mg PO DAILY #30 tab 09/10/23 Furosemide [Lasix] 40 mg PO DAILY #30 tab 09/10/23 Metoprolol Tartrate [Lopressor] 75 mg PO TID #90 tab 09/13/23 Tamsulosin [Flomax] 0.4 mg PO PC-BRKFST #30 cap 09/13/23 Verapamil [Isoptin] 40 mg PO TID #90 tab 09/13/23 Acetaminophen Tab [Tylenol] 650 mg PO Q4HR PRN tab 10/31/23 Apixaban [Eliquis] 2.5 mg PO BID #0 tab 10/31/23 Aspirin 81 mg PO DAILY tab 10/31/23 Clopidogrel [Plavix] 75 mg PO DAILY tab 10/31/23 Allergies Allergy/AdvReac Type Severity Reaction Status Date / Time bacitracin Allergy Rash/Hives Verified 10/23/23 21:25 [From Neosporin ([id number])] ibuprofen Allergy Anaphylaxis Verified 10/23/23 21:25 & Rash all over neomycin Allergy Rash/Hives Verified 10/23/23 21:25 [From Neosporin ([id number])] polymyxin B Allergy Rash/Hives Verified 10/23/23 21:25 [From Neosporin ([id number])] Review of Systems ROS Statement: Those systems with pertinent positive or pertinent negative responses have been documented in the HPI. ROS Other: All systems not noted in ROS Statement are negative. Constitutional: Reports: weakness. Denies: fever, chills Eyes: Denies: vision change Respiratory: Reports: dyspnea. Denies: cough, wheezes Cardiovascular: Reports: palpitations, edema. Denies: chest pain, orthopnea, syncope Gastrointestinal: Reports: diarrhea. Denies: abdominal pain, nausea, vomiting Genitourinary: Denies: dysuria, hematuria Musculoskeletal: Denies: back pain Skin: Denies: rash Neurological: Denies: headache, weakness Past Medical History Past Medical History: Atrial Fibrillation, Diabetes Mellitus, Hypertension, Osteoarthritis (OA) Additional Past Medical History / Comment(s): uterine cancer, incontinent of urine History of Any Multi-Drug Resistant Organisms: None Reported Past Surgical History: No Surgical Hx Reported Additional Past Surgical History / Comment(s): cataract & carpal-tunnel bilat. Past Anesthesia/Blood Transfusion Reactions: No Reported Reaction Past Psychological History: No Psychological Hx Reported Smoking Status: Never smoker Past Alcohol Use History: None Reported Past Drug Use History: None Reported - Past Family History Mother Family Medical History: Coronary Artery Disease (CAD), Diabetes Mellitus, Hypertension, Mitral Valve Prolapse (MVP) Father Family Medical History: Hypertension Additional Family Medical History / Comment(s): father hip surgery General Exam Limitations: no limitations General appearance: alert, in no apparent distress Head exam: Present: atraumatic, normocephalic Eye exam: Present: normal appearance. Absent: scleral icterus, conjunctival injection ENT exam: Present: mucous membranes dry Neck exam: Present: normal inspection Respiratory exam: Present: normal lung sounds bilaterally. Absent: respiratory distress, wheezes, rales, rhonchi, stridor Cardiovascular Exam: Present: tachycardia, irregular rhythm, normal heart sounds. Absent: systolic murmur, diastolic murmur, rubs, gallop GI/Abdominal exam: Present: soft. Absent: distended, tenderness, guarding, rebound, rigid, mass Extremities exam: Present: normal inspection, normal capillary refill. Absent: pedal edema, calf tenderness Back exam: Present: normal inspection. Absent: CVA tenderness (R), CVA tendern ess (L) Neurological exam: Present: alert Skin exam: Present: warm, dry, intact, normal color. Absent: rash Course Vital Signs 10/23/23 10/23/23 10/24/23 19:14 19:46 04:01 Temperature 97.8 F 98.8 F Pulse Rate 132 H 126 H 105 H Pulse Rate [ Cad Administrator ] Respiratory 18 18 18 Rate Blood Pressure 108/72 135/63 152/102 Blood Pressure [Right Arm Supine] O2 Sat by Pulse 98 96 95 Oximetry 10/24/23 10/24/23 10/24/23 06:22 08:00 08:15 Temperature 98.6 F 98.7 F Pulse Rate 107 H Pulse Rate [ 117 H 117 H Cad Administrator ] Respiratory 18 17 17 Rate Blood Pressure 158/87 Blood Pressure 165/79 [Right Arm Supine] O2 Sat by Pulse 98 Oximetry 10/24/23 10/24/23 10/24/23 12:00 14:00 14:15 Temperature 98.4 F Pulse Rate Pulse Rate [ 107 H 117 H 62 Cad Administrator ] Respiratory 17 17 Rate Blood Pressure Blood Pressure 128/69 [Right Arm Supine] O2 Sat by Pulse 96 Oximetry 10/24/23 10/24/23 16:39 20:00 Temperature 98.2 F Pulse Rate Pulse Rate [ 75 72 Cad Administrator ] Respiratory 17 17 Rate Blood Pressure Blood Pressure 132/62 113/58 [Right Arm Supine] O2 Sat by Pulse 96 Oximetry EKG Findings - EKG Results: EKG: interpreted by [facility] EKG shows: atrial fibrillation (Rate 132 bpm) - Blocks, [place], Hypertrophy, ST Abn: QRS axis and voltage: left axis deviation (-30 to -90) (Borderline left axis) Chamber hypertrophy or enlargement: only voltage criteria for left ventricular hypertrophy Repolarization changes or abnormalities: nonspecific abnormality, ST segment, and/or T wave Medical Decision Making - Medical Decision Making The patient had chest x-ray that I interpreted as negative for acute infiltrate, pneumothorax, congestive heart failure Was pt. sent in by a medical professional or institution (Dr., PA, DRUG ABUSE WORKER, urgent care, hospital, or long-term...) When possible be specific @ -[No] Did you speak to anyone other than the patient for history (EMS, parent, family, police, friend...)? What history was obtained from this source @ -[No] Did you review nursing and triage notes (agree or disagree)? Why? @ -[I reviewed and agree with nursing and triage notes] Were old charts reviewed (outside hosp., previous admission, EMS record, old EKG , old radiological studies, urgent care reports/EKG's, long-term records)? Report findings @ -[No old charts were reviewed] Differential Diagnosis (chest pain, altered mental status, abdominal pain women, abdominal pain men, vaginal bleeding, weakness, fever, dyspnea, syncope, headache, dizziness, GI bleed, back pain, seizure, CVA, palpatations, mental health, musculoskeletal)? @ -[Differential Chest Pain: Stable Angina, Unstable Angina, STEMI, NSTEMI Aortic Dissection, Pneumothorax, Musculoskeletal, Esophageal Spasm GERD, Cholecystitis, Pancreatitis, Zoster, this is not meant to be an all-inclusive list. EKG interpreted by me (3pts min.). @ -[I interpreted as above] X-rays interpreted by me (1pt min.). @ -[I interpreted as above CT interpreted by me (1pt min.). @ -[None done] U/S interpreted by me (1pt. min.). @ -[None done] What testing was considered but not performed or refused? (CT, X-rays, U/S, labs)? Why? @ -[None] What meds were considered but not given or refused? Why? @ -[None] Did you discuss the management of the patient with other professionals (professionals i.e. , PA, DRUG ABUSE WORKER, lab, RT, psych nurse, socially responsible investment adviser, sql analyst, teacher, correctional probation officer, case hardener)? Give summary @ -[No] Was smoking cessation discussed for >3mins.? @ -[No] Was critical care preformed (if so, how long)? @ -[No] Were there social determinants of health that impacted care today? How? (Homelessness, low income, unemployed, alcoholism, drug addiction, transportation, low edu. Level, literacy, decrease access to med. care, shelter, rehab)? @ -[No] Was there de-escalation of care discussed even if they declined (Discuss DNR or withdrawal of care, Hospice)? DNR status @ -[No] What co-morbidities impacted this encounter? (DM, HTN, Smoking, COPD, CAD, Cancer, CVA, ARF, Chemo, Hep., AIDS, mental health diagnosis, sleep apnea, morbid obesity)? @ -[None] Was patient admitted / discharged? Hospital course, mention meds given and route, prescriptions, significant lab abnormalities, going to OR and other pertinent info. @ -[Patient is an 83-year-old woman presenting with chest pain that is concerning for cardiac etiology. The patient will be admitted to have serial cardiac enzymes, telemetry monitoring, cardiology consultation Undiagnosed new problem with uncertain prognosis? @ -[No] Drug Therapy requiring intensive monitoring for toxicity (Heparin, Nitro, Insulin, Cardizem)? @ -[No] Were any procedures done? @ -[No] Diagnosis/symptom? @ -[Acute chest pain Acute, or Chronic, or Acute on Chronic? @ -[Acute Uncomplicated (without systemic symptoms) or Complicated (systemic symptoms)? @ -[d uncomplicated Side effects of treatment? @ -[No] Exacerbation, Progression, or Severe Exacerbation? @ -[No] Poses a threat to life or bodily function? How? (Chest pain, [place], NH, pneumonia, PE, COPD, DKA, ARF, appy, cholecystitis, CVA, Diverticulitis, Homicidal, Schreiber icidal, threat to staff... and all critical care pts) @ -[No] - Lab Data Result diagrams: 10/29/23 04:15 10/31/23 08:38 Lab Results 10/23/23 10/23/23 10/23/23 Range/Units 20:14 20:14 20:14 WBC 8.3 (3.8-10.6) k/uL RBC 3.90 (3.80-5.40) m/uL Hgb 10.3 L (11.4-16.0) gm/dL Hct 31.4 L (34.0-46.0) % MCV 80.5 D (80.0-100.0) fL MCH 26.4 (25.0-35.0) pg MCHC 32.8 (31.0-37.0) g/dL RDW 15.0 (11.5-15.5) % Plt Count 257 (150-450) k/uL MPV 7.0 Neutrophils % 80 % Lymphocytes % 10 % Monocytes % 6 % Eosinophils % 1 % Basophils % 0 % Neutrophils # 6.7 (1.3-7.7) k/uL Lymphocytes # 0.9 L (1.0-4.8) k/uL Monocytes # 0.5 (0-1.0) k/uL Eosinophils # 0.1 (0-0.7) k/uL Basophils # 0.0 (0-0.2) k/uL PT 10.5 (10.0-12.5) sec INR 1.0 (<1.2) APTT 24.3 (22.0-30.0) sec Sodium 136 L (137-145) mmol/L Potassium 4.2 (3.5-5.1) mmol/L Chloride 105 (98-107) mmol/L Carbon Dioxide 24 (22-30) mmol/L Anion Gap 7 mmol/L BUN 37 H (7-17) mg/dL Creatinine 1.70 H (0.52-1.04) mg/dL Est GFR (CKD-EPI)AfAm 32 (>60 ml/min/1.73 sqM) Est GFR (CKD-EPI)NonAf 28 (>60 ml/min/1.73 sqM) Glucose 104 H (74-99) mg/dL Calcium 9.0 (8.4-10.2) mg/dL Magnesium 2.0 (1.6-2.3) mg/dL Total Bilirubin 0.6 (0.2-1.3) mg/dL AST 30 (14-36) U/L ALT 16 (4-34) U/L Alkaline Phosphatase 91 (38-126) U/L Troponin I (0.000-0.034) ng/mL Total Protein 7.6 (6.3-8.2) g/dL Albumin 3.7 (3.5-5.0) g/dL 10/23/23 Range/Units 20:14 WBC (3.8-10.6) k/uL RBC (3.80-5.40) m/uL Hgb (11.4-16.0) gm/dL Hct (34.0-46.0) % MCV (80.0-100.0) fL MCH (25.0-35.0) pg MCHC (31.0-37.0) g/dL RDW (11.5-15.5) % Plt Count (150-450) k/uL MPV Neutrophils % % Lymphocytes % % Monocytes % % Eosinophils % % Basophils % % Neutrophils # (1.3-7.7) k/uL Lymphocytes # (1.0-4.8) k/uL Monocytes # (0-1.0) k/uL Eosinophils # (0-0.7) k/uL Basophils # (0-0.2) k/uL PT (10.0-12.5) sec INR (<1.2) APTT (22.0-30.0) sec Sodium (137-145) mmol/L Potassium (3.5-5.1) mmol/L Chloride (98-107) mmol/L Carbon Dioxide (22-30) mmol/L Anion Gap mmol/L BUN (7-17) mg/dL Creatinine (0.52-1.04) mg/dL Est GFR (CKD-EPI)AfAm (>60 ml/min/1.73 sqM) Est GFR (CKD-EPI)NonAf (>60 ml/min/1.73 sqM) Glucose (74-99) mg/dL Calcium (8.4-10.2) mg/dL Magnesium (1.6-2.3) mg/dL Total Bilirubin (0.2-1.3) mg/dL AST (14-36) U/L ALT (4-34) U/L Alkaline Phosphatase (38-126) U/L Troponin I 1.810 H* (0.000-0.034) ng/mL Total Protein (6.3-8.2) g/dL Albumin (3.5-5.0) g/dL Disposition Clinical Impression: Atrial fibrillation with RVR, NSTEMI (non-ST elevated myocardial infarction) Disposition: ADMITTED IP TO THIS HOSP Condition: Stable Is patient prescribed a controlled substance at d/c from ED?: No
--- NOTE | 2023-10-23 20:41 | XR ---
EXAMINATION TYPE: XR chest 1V portable DATE OF EXAM: 10/23/2023 COMPARISON: 09/06/2023 INDICATION: Dysrhythmia TECHNIQUE: Single frontal view of the chest is obtained. FINDINGS: The heart size is normal. The pulmonary vasculature is normal. The lungs are clear. IMPRESSION: 1. No acute pulmonary process.
[2023-10-23 20:44] LABS: Basophils % (A) 0 %; Eosinophils # (A) 0.1 k/uL (0-0.7); Eosinophils % (A) 1 %; HCT 31.4 % (34.0-46.0); HGB 10.3 gm/dL (11.4-16.0); Lymphocytes # (A) 0.9 k/uL (1.0-4.8); Lymphocytes % (A) 10 %; MCH 26.4 pg (25.0-35.0); MCHC 32.8 g/dL (31.0-37.0); Monocytes # (A) 0.5 k/uL (0-1.0); Monocytes % (A) 6 %; Neutrophils # (A) 6.7 k/uL (1.3-7.7); Neutrophils % (A) 80 %; Platelet Count 257 k/uL (150-450); WBC 8.3 k/uL (3.8-10.6)
[2023-10-23 20:48] LABS: ALT 16 U/L (4-34); AST 30 U/L (14-36); African American GFR (CKD) 32 (>60 ml/min/1.73 sqM); Albumin 3.7 g/dL (3.5-5.0); Alkaline Phosphatase 91 U/L (38-126); Anion Gap 7 mmol/L; Blood Urea Nitrogen 37 mg/dL (7-17); Carbon Dioxide 24 mmol/L (22-30); Chloride 105 mmol/L (98-107); Glucose 104 mg/dL (74-99); Non-African American GFR(CKD) 28 (>60 ml/min/1.73 sqM); Potassium 4.2 mmol/L (3.5-5.1); Sodium 136 mmol/L (137-145); Total Bilirubin 0.6 mg/dL (0.2-1.3); Total Protein 7.6 g/dL (6.3-8.2)
[2023-10-23 20:49] LABS: Partial Thromboplastin Time 24.3 sec (22.0-30.0); Prothrombin Time 10.5 sec (10.0-12.5)
[2023-10-23 20:55] LABS: MCV 80.5 fL (80.0-100.0)
[2023-10-23] MEDS ORDERED: NITROGLYCERIN SL TABS 0.4 MG TAB SUBLINGUAL PRN (21:51)
[2023-10-23] MEDS ORDERED: HEPARIN SODIUM 1,000 UN/ML (10ML VL) IV ONE (21:51)
[2023-10-23] MEDS: HEPARIN SOD,PORK IN 0.45% NACL 25,000 UNIT in 0.45% NACL 1 250ML.BAG IV SCH (22:58)
[2023-10-24] MEDS ORDERED: ATORVASTATIN 80 MG TAB PO STA (04:36)
--- NOTE | 2023-10-24 04:37 | P.HPIM ---
History of Present Illness H&P Date: 10/24/23 Patient is a 83-year-old female with a PMH of A-fib on Eliquis, diastolic CHF, chronic kidney disease, hypertension, hyperlipidemia, hypothyroidism, who presents to the emergency room with complaints of palpitations and occasional shortness of breath. Patient reports that over the past few days, she noticed that her blood pressure and heart rate were elevated, and had ran out of all her home medications for A-fib and hypertension. She reports mild occasional shortness of breath during this time. She denied experiencing chest discomfort, nausea, diaphoresis, or dizziness. Reports feeling somewhat at baseline at the time of interview. Denied experiencing fever, chills, cough, abdominal pain, diarrhea. She does report however that 3 days ago she did have an episode of nausea and was feeling ill, but cannot recall the exact details. Initial EKG in the emergency room revealed A-fib with RVR at 132 bpm with subsequent EKG showing A-fib with RVR at 103 bpm with no acute ST/T wave changes noted as reviewed by me. Chest x-ray was unremarkable. Laboratory evaluation was remarkable for troponin 1.810 and subsequently 1.930, BUN 37, creatinine 1.7, and hemoglobin 10.3. ED documentation reviewed and case discussed with ED provider. Review of systems: Pertinent positives and negatives as discussed in HPI, a complete review of systems was performed and all other systems are negative. Physical examination: Vital signs reviewed General: non toxic, no distress, appears at stated age, normal weight Derm: no unusual rashes/lesions, warm Head: atraumatic, normocephalic, symmetric Eyes: EOMI, no lid lag, anicteric sclera, pupils equal round reactive to light ENT: Nose and ears atraumatic Neck: No cervical lymphadenopathy, trachea midline, supple Mouth: no lip lesion, mucus membranes moist Cardiovascular: S1S2 reg, no murmur, positive dorsalis pedis pulse bilateral, no edema Lungs: CTA bilateral, no rhonchi, no rales, no accessory muscle use Abdominal: soft, nontender to palpation, no guarding Ext: muscle strength 5 out of 5 in all 4 extremities grossly, no gross muscle at rophy, no contractures, Neuro: CN II-XI grossly intact, no gross focal neuro deficits Psych: Alert, oriented, appropriate affect Assessment: A-fib with RVR Non-ST elevation TX versus type II TX in setting of A-fib with RVR, patient currently denying chest discomfort or shortness of breath Chronic conditions: Diastolic CHF, chronic kidney disease, hypertension, hyperlipidemia, hypothyroidism Imaging: Initial EKG in the emergency room revealed A-fib with RVR at 132 bpm with subsequent EKG showing A-fib with RVR at 103 bpm with no acute ST/T wave changes noted as reviewed by me. Chest x-ray was unremarkable. Data Review: Laboratory evaluation was remarkable for troponin 1.810 and subsequently 1.930, BUN 37, creatinine 1.7, and hemoglobin 10.3. Plan: Continue with heparin and Cardizem infusions Cardiology consulted Cardiac monitoring Trend troponin Continue with aspirin 325 mg p.o. daily with Lipitor N.p.o. for now DVT prophylaxis: Heparin infusion The patient is admitted with an anticipated greater than 2 midnight stay for evaluation of A-fib CODE STATUS: Full Code Discussed with: Patient Anticipated discharge place: Home Past Medical History Past Medical History: Atrial Fibrillation, Diabetes Mellitus, Hypertension, Osteoarthritis (OA) Additional Past Medical History / Comment(s): uterine cancer, incontinent of urine History of Any Multi-Drug Resistant Organisms: None Reported Past Surgical History: No Surgical Hx Reported Additional Past Surgical History / Comment(s): cataract & carpal-tunnel bilat. Past Anesthesia/Blood Transfusion Reactions: No Reported Reaction Past Psychological History: No Psychological Hx Reported Smoking Status: Never smoker Past Alcohol Use History: None Reported Past Drug Use History: None Reported - Past Family History Mother Family Medical History: Coronary Artery Disease (CAD), Diabetes Mellitus, Hypertension, Mitral Valve Prolapse (MVP) Father Family Medical History: Hypertension Additional Family Medical History / Comment(s): father hip surgery Medications and Allergies Home Medications Medication Instructions Recorded Confirmed Type Levothyroxine Sodium 25 mcg PO DAILY 06/28/22 10/23/23 History Psyllium Husk [Fiber Capsule] 3.2 gm PO BID 08/18/23 10/23/23 History Apixaban [Eliquis] 2.5 mg PO BID 30 Days #60 tab 08/23/23 10/23/23 Rx Atorvastatin [Lipitor] 20 mg PO DAILY #30 tab 09/10/23 10/23/23 Rx Furosemide [Lasix] 40 mg PO DAILY #30 tab 09/10/23 10/23/23 Rx Loperamide [Imodium] 2 mg PO QID cap 09/10/23 10/23/23 Rx Metoprolol Tartrate [Lopressor] 75 mg PO TID #90 tab 09/13/23 10/23/23 Rx Tamsulosin [Flomax] 0.4 mg PO PC-BRKFST #30 cap 09/13/23 10/23/23 Rx Verapamil [Isoptin] 40 mg PO TID #90 tab 09/13/23 10/23/23 Rx Allergies Allergy/AdvReac Type Severity Reaction Status Date / Time bacitracin Allergy Rash/Hives Verified 10/23/23 21:25 [From Neosporin ([id number])] ibuprofen Allergy Anaphylaxis Verified 10/23/23 21:25 & Rash all over neomycin Allergy Rash/Hives Verified 10/23/23 21:25 [From Neosporin ([id number])] polymyxin B Allergy Rash/Hives Verified 10/23/23 21:25 [From Neosporin ([id number])] Physical Exam Vitals: Vital Signs Temp Pulse Resp BP Pulse Ox 10/24/23 04:01 98.8 F 105 H 18 152/102 95 10/23/23 19:46 126 H 18 135/63 96 10/23/23 19:14 97.8 F 132 H 18 108/72 98 Intake and Output 10/23/23 10/23/23 10/24/23 14:59 22:59 06:59 Other: Weight 79.379 kg Results CBC & Chem 7: 10/23/23 20:14 10/23/23 20:14 Labs: Abnormal Lab Results - Last 24 Hours (Table) 10/23/23 10/23/23 10/23/23 Range/Units 20:14 20:14 20:14 Hgb 10.3 L (11.4-16.0) gm/dL Hct 31.4 L (34.0-46.0) % Lymphocytes # 0.9 L (1.0-4.8) k/uL APTT (22.0-30.0) sec Sodium 136 L (137-145) mmol/L BUN 37 H (7-17) mg/dL Creatinine 1.70 H (0.52-1.04) mg/dL Glucose 104 H (74-99) mg/dL Troponin I 1.810 H* (0.000-0.034) ng/mL 10/23/23 10/24/23 10/24/23 Range/Units 22:24 01:17 01:25 Hgb (11.4-16.0) gm/dL Hct (34.0-46.0) % Lymphocytes # (1.0-4.8) k/uL APTT 45.1 H (22.0-30.0) sec Sodium (137-145) mmol/L BUN (7-17) mg/dL Creatinine (0.52-1.04) mg/dL Glucose (74-99) mg/dL Troponin I 1.930 H* 2.080 H* (0.000-0.034) ng/mL
[2023-10-24] MEDS: LEVOTHYROXINE 25 MCG TAB PO SCH (06:21)
[2023-10-24 08:46] LABS: LDL Cholesterol,Calculated 46.1 mg/dL (0.0-131.0); VLDL Calculation 18.24 mg/dL (5.00-40.00)
[2023-10-24] MEDS ORDERED: ASPIRIN 81 MG PO STA (08:59)
[2023-10-24] MEDS ORDERED: ASPIRIN 81 MG PO SCH (09:00)
[2023-10-24] MEDS ORDERED: ASPIRIN 325 MG TAB PO SCH (09:00)
[2023-10-24] MEDS: FUROSEMIDE 40 MG TAB PO SCH (11:27)
[2023-10-24] MEDS: ATORVASTATIN 20 MG TAB PO SCH (11:27)
[2023-10-24] MEDS: TAMSULOSIN 0.4 MG CAP.ER.24H PO SCH (11:27)
[2023-10-24] MEDS: VERAPAMIL 40 MG TAB PO SCH ×3 (11:27→20:26)
[2023-10-24] MEDS: METOPROLOL TARTRATE 25 MG TAB PO SCH ×3 (11:28→20:26)
--- NOTE | 2023-10-24 11:28 | US ---
EXAMINATION TYPE: US venous doppler duplex LE RT DATE OF EXAM: 10/24/2023 11:15 AM COMPARISON: NONE CLINICAL INDICATION: Female, 83 years old with history of right lower extremity swelling > left; Righ t leg swelling SIDE PERFORMED: Right TECHNIQUE: The lower extremity deep venous system is examined utilizing real time linear array sonog annelise with graded compression, doppler sonography and color-flow sonography. VESSELS IMAGED: Common Femoral Vein Deep Femoral Vein Greater Saphenous Vein * Femoral Vein Popliteal Vein Small Saphenous Vein * Proximal Calf Veins (* superficial vessels) Right Leg: Negative for DVT Right CFV is prominent at valve leaflets with roleuax flow noted at valves. This area however is full y compressible. Popliteal vein difficult to image due to edema IMPRESSION: Portions of the study are limited however there is no evidence for DVT at this time.
--- NOTE | 2023-10-24 12:17 | P.PN ---
Subjective Progress Note Date: 10/24/23 Hospital course: Patient is a very pleasant 83-year-old female with a past medical history of paroxysmal atrial fibrillation on anticoagulation with Eliquis, chronic diastolic heart failure, hypertension, hyperlipidemia, chronic kidney disease stage IIIb, and hypothyroidism. She presented to the emergency department with a chief complaint of palpitations and shortness of breath on 10/23/2023. Patient reported she ran out of her medications for her atrial fibrillation and hyperten idalia and noticed that her blood pressure had been elevated and was experiencing mild shortness of breath during this time. Patient reports this later progressed into significant palpitations and worsening shortness of breath. She underwent full evaluation in the emergency department. Upon arrival to our facility, vital signs were obtained. Heart rate was 132 bpm, blood pressure was 108/72, respiratory rate was 18, temp 97.8 F, and SpO2 was 98% on room air. EKG was completed confirming atrial fibrillation with RVR at 132 bpm with T wave inversion in leads I and aVL and mild ST depression in leads I, II, and V4 through V6. Chest x-ray was completed and was negative for acute cardiopulmo nary process. Labs completed and reviewed. CBC showing microcytic anemia with hemoglobin of 10.3 and this is at patient's baseline. BMP consistent with patient's known CKD stage III with BUN of 37, creatinine 1.70, GFR of 28 and is at patient's baseline. Blood glucose was 104. Liver profile was unremarkable. Troponin was elevated at 1.810. Patient was started on low intensity heparin infusion along with given a Cardizem bolus followed by infusion. She was admitted under our services with consult to cardiology for A-fib RVR and NSTEMI. Troponins trended overnight resulting at 1.810, 1.930, and 2.080. Physical exam: Patient was seen and fully evaluated at bedside this morning. She currently reports her palpitations have subsided. She remains in A-fib with RVR rates 110s to 130s at this time. She remains on IV heparin infusion as well as Cardizem infusion. She denies having any chest pain, dizziness, lightheadedness, or shortness of breath at rest. Patient does report signi ficant exertional dyspnea with exertion. Patient was noted to have right lower extremity edema greater than left lower extremity when asked if this is baseline patient states not until a couple of weeks ago. Vital signs reviewed and stable. General: Nontoxic, no distress and appears stated age. Derm: Skin warm and dry, normal coloration for ethnicity. Head: Atraumatic, normocephalic and symmetric. Eyes: EOMs intact, no lid lag, and anicteric sclera Mouth: no lip lesions, mucus membranes moist Cardiovascular: Irregularly irregular, systolic murmur, positive posterior tibial pulses bilaterally, and cap refill < 2 seconds. Lungs: Respirations even, regular, and unlabored on room air. Lungs CTA bilaterally, no rhonchi, no rales, no wheezing, and no accessory muscle usage. Abdominal: soft, nontender to palpation, no guarding, no appreciable organomegaly Ext: No gross muscle atrophy, no edema, no contractures. Movement and sensation intact. Right lower extremity 3+ edema in left lower extremity 1-2+ edema. Neuro: Speech clear, face symmetrical and CN II-XII grossly intact with no noted focal neuro deficits Psych: Alert and oriented to person, place, time, and situation. Appropriate and pleasant affect. Assessment and Plan of Care: NSTEMI Atrial fibrillation with RVR HFpEF Hypertension Hyperlipidemia -Cardiology consulted, appreciate recommendations -Telemetry monitoring -Troponins trended overnight resulting at 1.810, 1.930, and 2.080. -Continue low intensity heparin infusion with close monitoring of PTT every 6 hours to maintain goal therapeutic range of 44 to 79 seconds. Currently PTT therapeutic at 45.1. -Continue Cardizem infusion and resume metoprolol 75 mg 3 times daily and verapamil 40 mg 3 times daily. -NPO until cleared by cardiology then may resume heart healthy diet -Aspirin not ordered secondary to patient's history of anaphylaxis to ibuprofen. However patient was started on atorvastatin 20 mg daily. -Lipid profile pending results. -Echocardiogram completed 08/19/2023 revealed a preserved EF of 55 to 60% with mild to moderate mitral regurgitation, will defer to cardiology if they want to repeat echocardiogram at this time. Lower extremity edema, right greater than left -Order placed for venous Doppler of right lower extremity to rule out DVT as patient does report missing doses of her Eliquis. Hypothyroidism -Continue daily medication regimen with levothyroxine 25 mcg daily. -Order placed for TSH with reflex free T4. Chronic kidney disease stage III -BUN 37, creatinine 1.70, and GFR of 28. Stable with renal function at baseline creatinine of 1.7. Data and imaging reviewed: Troponins trended overnight resulting at 1.810, 1.930, and 2.080. Repeat EKG completed this morning and personally reviewed, continues to show atrial fibrillation with RVR at a more controlled rate about 103 bpm with T wave inversion in aVL and improvement of previously noted minimal ST depression in leads I, II, and V4 through V6. CODE STATUS: Full code DVT prophylaxis: Low intensity heparin infusion Anticipated discharge date: Clinical course to determine Anticipated discharge place: Clinical course to determine Patient was seen independently by Nurse Pracitioner. This document was prepared using [employer] renal dictation software. Please allow for errors in umbrella tipper machine, while rare they do occur. Objective - Vital Signs Vital signs: Vital Signs Temp 98.6 F 10/24/23 06:22 Pulse 107 H 10/24/23 06:22 Resp 18 10/24/23 06:22 BP 158/87 10/24/23 06:22 Pulse Ox 98 10/24/23 06:22 FiO2 Intake & Output 10/23/23 10/24/23 10/24/23 18:59 06:59 18:59 Weight 79.379 kg - Labs CBC & Chem 7: 10/23/23 20:14 10/23/23 20:14 Labs: Abnormal Lab Results - Last 24 Hours (Table) 10/23/23 10/23/23 10/23/23 Range/Units 20:14 20:14 20:14 Hgb 10.3 L (11.4-16.0) gm/dL Hct 31.4 L (34.0-46.0) % Lymphocytes # 0.9 L (1.0-4.8) k/uL APTT (22.0-30.0) sec Sodium 136 L (137-145) mmol/L BUN 37 H (7-17) mg/dL Creatinine 1.70 H (0.52-1.04) mg/dL Glucose 104 H (74-99) mg/dL Troponin I 1.810 H* (0.000-0.034) ng/mL 10/23/23 10/24/23 10/24/23 Range/Units 22:24 01:17 01:25 Hgb (11.4-16.0) gm/dL Hct (34.0-46.0) % Lymphocytes # (1.0-4.8) k/uL APTT 45.1 H (22.0-30.0) sec Sodium (137-145) mmol/L BUN (7-17) mg/dL Creatinine (0.52-1.04) mg/dL Glucose (74-99) mg/dL Troponin I 1.930 H* 2.080 H* (0.000-0.034) ng/mL
--- NOTE | 2023-10-24 13:00 | P.CRDCN ---
History of Present Illness Consult date: 10/24/23 Consult reason: atrial fibrillation (with RVR, NSTEMI) History of present illness: HISTORY OF PRESENT ILLNESS: This is a 83-year-old female with a past medical history significant for hypertension, hyperlipidemia, chronic lower extremity edema, and atrial fibrillation. Patient followed in the office with Dr. Gallardo in 2021 but is in the process of changing to Dr. Mosley. She had a recent hospitalization in August 2023 for paroxysmal atrial fibrillation RVR, lower extremities cellulitis, acute heart failure with preserved ejection fraction. We have been asked to evaluate the patient for non-ST elevated [place] and A-fib with RVR. Eris stiles gives history of having elevated blood pressure yesterday that was quite high but upon review of her documentation her numbers do not seem to be accurate. Her blood pressure was 123/113. She states she also had a little difficulty in breathing and this was even with talking. She sometimes has palpitations but mostly shortness of breath. Prior to that for couple days that she had vomiting and diarrhea and that she may have passed out at that time but she is not sure. Vomiting and diarrhea have resolved. Upon arrival to the emergency center, blood pressure was 108/62 with a heart rate of 132 and atrial fibrillation. Blood pressure is now 163/89 heart is running 120. Patient has been started on Cardizem drip and heparin drip. Patient is seen today in the emergency center waiting for a bed on the [facility] unit. Patient has not been taking her medications for about 3 weeks. She is in the process of changing PCPs and has not followed up in the office. EKG reveals atrial fibrillation with a heart rate 132. Chest xray no acute process WBC 8.3, hemoglobin 10.3, platelet count 257. INR 1. Sodium 136, potassium 4.2, BUN 37 creatinine 1.7. Troponins 1.81, 1.93, 2.08. Triglycerides 92, cholesterol 100, LDL 46, HDL 35. TSH 4.3. Current home cardiac medications include Eliquis 2.5 mg twice a day, atorvastatin 20 mg daily, Lasix 40 mg daily, Lopressor 75 mg 3 times daily, verapamil 40 mg 3 times daily, also on levothyroxine 25 mcg daily. Most recent echocardiogram obtained in July 2023 revealed ejection fraction 55-60%, mild pulmonary hypertension, and mild to moderate MR Patient underwent Lexiscan stress test in June 2022 revealing abnormal nuclear scan showing ischemia involving inferior lateral wall REVIEW OF SYSTEMS: At the time of my exam: CONSTITUTIONAL: Denies fever or chills. HEENT: Denies blurred vision, vision changes, or eye pain. Denies hemoptysis CARDIOVASCULAR: Denies chest pain. Denies orthopnea. Denies PND. Denies palpitations RESPIRATORY: Denies shortness of breath. + Dyspnea with minimal exertion GASTROINTESTINAL: Denies abdominal pain. Denies nausea or vomiting. HEMATOLOGIC: Denies bleeding disorders. GENITOURINARY: Denies any blood in urine. SKIN: Denies pruitis. Denies rash. PHYSICAL EXAM: VITAL SIGNS: Reviewed. GENERAL: Well-developed in no acute distress. HEENT: Head is normocephalic. Pupils are equal, round. Sclerae anicteric. No JVD or thyromegaly LUNGS: Respirations even and unlabored. Lungs essentially clear to auscultation bilaterally. HEART: Irregular rate and rhythm. S1 and S2 heard. Systolic murmur noted. ABDOMEN: Soft. Nondistended. Nontender. EXTREMITIES: No clubbing or cyanosis. Peripheral pulses intact. 1+ right lower extremity edema and trace on left LE. No erythema. NEUROLOGIC: Awake and alert. Oriented x 3. ASSESSMENT: NSTEMI Hypertension, uncontrolled Paroxysmal atrial fibrillation with RVR Chronic heart failure with preserved ejection fraction, 55-60% Hypertension Hyperlipidemia Chronic kidney disease Abnormal stress test in June 2022 revealing inferior lateral reversibility Noncompliance with medications PLAN: Continue Heparin gtt and Cardizem drip Resume home cardiac medications Start patient on aspirin 81 mg daily Discussed in detail recommendations for cardiac catheterization with the patient but she would like to speak with her family and decide later if she would like to go through with this. Possible cardiac catheterization tomorrow Further recommendations pending patient's course Nurse practitioner note has been reviewed by physician. Signing provider agrees with the documented findings, assessment, and plan of care. Past Medical History Past Medical History: Atrial Fibrillation, Diabetes Mellitus, Hypertension, Ost eoarthritis (OA) Additional Past Medical History / Comment(s): uterine cancer, incontinent of urine History of Any Multi-Drug Resistant Organisms: None Reported Past Surgical History: No Surgical Hx Reported Additional Past Surgical History / Comment(s): cataract & carpal-tunnel bilat. Past Anesthesia/Blood Transfusion Reactions: No Reported Reaction Past Psychological History: No Psychological Hx Reported Smoking Status: Never smoker Past Alcohol Use History: None Reported Past Drug Use History: None Reported - Past Family History Mother Family Medical History: Coronary Artery Disease (CAD), Diabetes Mellitus, Hypertension, Mitral Valve Prolapse (MVP) Father Family Medical History: Hypertension Additional Family Medical History / Comment(s): father hip surgery Medications and Allergies Home Medications Medication Instructions Recorded Confirmed Type Levothyroxine Sodium 25 mcg PO DAILY 06/28/22 10/23/23 History Psyllium Husk [Fiber Capsule] 3.2 gm PO BID 08/18/23 10/23/23 History Apixaban [Eliquis] 2.5 mg PO BID 30 Days #60 tab 08/23/23 10/23/23 Rx Atorvastatin [Lipitor] 20 mg PO DAILY #30 tab 09/10/23 10/23/23 Rx Furosemide [Lasix] 40 mg PO DAILY #30 tab 09/10/23 10/23/23 Rx Loperamide [Imodium] 2 mg PO QID cap 09/10/23 10/23/23 Rx Metoprolol Tartrate [Lopressor] 75 mg PO TID #90 tab 09/13/23 10/23/23 Rx Tamsulosin [Flomax] 0.4 mg PO PC-BRKFST #30 cap 09/13/23 10/23/23 Rx Verapamil [Isoptin] 40 mg PO TID #90 tab 09/13/23 10/23/23 Rx Allergies Allergy/AdvReac Type Severity Reaction Status Date / Time bacitracin Allergy Rash/Hives Verified 10/23/23 21:25 [From Neosporin ([id number])] ibuprofen Allergy Anaphylaxis Verified 10/23/23 21:25 & Rash all over neomycin Allergy Rash/Hives Verified 10/23/23 21:25 [From Neosporin ([id number])] polymyxin B Allergy Rash/Hives Verified 10/23/23 21:25 [From Neosporin ([id number])] Physical Exam Vitals: Vital Signs Temp Pulse Resp BP Pulse Ox 10/24/23 06:22 98.6 F 107 H 18 158/87 98 10/24/23 04:01 98.8 F 105 H 18 152/102 95 10/23/23 19:46 126 H 18 135/63 96 10/23/23 19:14 97.8 F 132 H 18 108/72 98 Intake and Output 10/23/23 10/24/23 10/24/23 22:59 06:59 14:59 Other: Weight 79.379 kg Results 10/23/23 20:14 10/23/23 20:14 Cardiac Enzymes 10/23/23 10/23/23 10/23/23 Range/Units 20:14 20:14 22:24 AST 30 (14-36) U/L Troponin I 1.810 H* 1.930 H* (0.000-0.034) ng/mL 10/24/23 Range/Units 01:17 AST (14-36) U/L Troponin I 2.080 H* (0.000-0.034) ng/mL Coagulation 10/23/23 10/24/23 Range/Units 20:14 01:25 PT 10.5 (10.0-12.5) sec APTT 24.3 45.1 H (22.0-30.0) sec CBC 10/23/23 Range/Units 20:14 WBC 8.3 (3.8-10.6) k/uL RBC 3.90 (3.80-5.40) m/uL Hgb 10.3 L (11.4-16.0) gm/dL Hct 31.4 L (34.0-46.0) % Plt Count 257 (150-450) k/uL Comprehensive Metabolic Panel 10/23/23 Range/Units 20:14 Sodium 136 L (137-145) mmol/L Potassium 4.2 (3.5-5.1) mmol/L Chloride 105 (98-107) mmol/L Carbon Dioxide 24 (22-30) mmol/L BUN 37 H (7-17) mg/dL Creatinine 1.70 H (0.52-1.04) mg/dL Glucose 104 H (74-99) mg/dL Calcium 9.0 (8.4-10.2) mg/dL AST 30 (14-36) U/L ALT 16 (4-34) U/L Alkaline Phosphatase 91 (38-126) U/L Total Protein 7.6 (6.3-8.2) g/dL Albumin 3.7 (3.5-5.0) g/dL Current Medications Generic Name Dose Route Start Last Admin Trade Name Freq PRN Reason Stop Dose Admin Aspirin 325 mg 10/24/23 09:00 Aspirin 325 Mg Tab PO DAILY [facility] Atorvastatin Calcium 20 mg 10/24/23 09:00 Atorvastatin 20 Mg Tab PO DAILY [facility] Furosemide 40 mg 10/24/23 09:00 Furosemide 40 Mg Tab PO DAILY [facility] Diltiazem HCl 125 mg/ Sodium 125 mls @ 5 mls/hr 10/23/23 20:00 10/23/23 20:45 Chloride IV 5 mg/hr .Q24H NERISSA 5 mls/hr Administration 5 MG/HR Heparin Sodium/Sodium Chloride 250 mls @ 9.525 mls/hr 10/23/23 22:00 10/23/23 22:58 25,000 unit/ Sodium Chloride IV 12 units/kg/hr .Q24H NERISSA 9.525 mls/hr Administration Protocol 12 UNITS/KG/HR Levothyroxine Sodium 25 mcg 10/24/23 06:30 10/24/23 06:21 Levothyroxine 25 Mcg Tab PO 25 mcg DAILY@0630 [facility] Administration Metoprolol Tartrate 75 mg 10/24/23 09:00 Metoprolol Tartrate 25 Mg Tab PO TID [facility] Nitroglycerin 0.4 mg 10/23/23 21:51 Nitroglycerin Sl Tabs 0.4 Mg Tab SUBLINGUAL Q5M PRN Chest Pain Tamsulosin HCl 0.4 mg 10/24/23 08:30 Tamsulosin 0.4 Mg Cap.Er.24h PO PC-BRKFST [facility] Intake and Output 10/23/23 10/24/23 10/24/23 22:59 06:59 14:59 Other: Weight 79.379 kg 10/23/23 20:14 10/23/23 20:14
[2023-10-24] MEDS: HEPARIN SOD,PORK IN 0.45% NACL 25,000 UNIT in 0.45% NACL 1 250ML.BAG IV SCH (21:35)
[2023-10-25 04:37] LABS: HCT 28.9 % (34.0-46.0); HGB 9.4 gm/dL (11.4-16.0); Hypochromasia Slight; MCH 26.7 pg (25.0-35.0); MCHC 32.7 g/dL (31.0-37.0); MCV 81.6 fL (80.0-100.0); Mean Platelet Volume 7.3; Platelet Count 226 k/uL (150-450); RBC 3.53 m/uL (3.80-5.40); RDW 14.9 % (11.5-15.5); WBC 6.2 k/uL (3.8-10.6)
[2023-10-25 04:50] LABS: ALT 17 U/L (4-34); AST 29 U/L (14-36); African American GFR (CKD) 29 (>60 ml/min/1.73 sqM); Albumin 3.1 g/dL (3.5-5.0); Alkaline Phosphatase 109 U/L (38-126); Anion Gap 8 mmol/L; Blood Urea Nitrogen 36 mg/dL (7-17); Calcium 8.3 mg/dL (8.4-10.2); Carbon Dioxide 25 mmol/L (22-30); Chloride 104 mmol/L (98-107); Glucose 137 mg/dL (74-99); Magnesium 1.9 mg/dL (1.6-2.3); Non-African American GFR(CKD) 26 (>60 ml/min/1.73 sqM); Potassium 3.7 mmol/L (3.5-5.1); Sodium 137 mmol/L (137-145); Total Bilirubin 0.5 mg/dL (0.2-1.3); Total Protein 6.5 g/dL (6.3-8.2)
[2023-10-25] MEDS: LEVOTHYROXINE 25 MCG TAB PO SCH (05:53)
[2023-10-25 06:22] LABS: Glucose,Whole Blood 133 mg/dL (70-110)
[2023-10-25] MEDS: VERAPAMIL 40 MG TAB PO SCH ×3 (10:09→21:28)
[2023-10-25] MEDS: TAMSULOSIN 0.4 MG CAP.ER.24H PO SCH (10:09)
[2023-10-25] MEDS: ASPIRIN 81 MG PO SCH (10:10)
[2023-10-25] MEDS: FUROSEMIDE 40 MG TAB PO SCH (10:10)
[2023-10-25] MEDS: ATORVASTATIN 20 MG TAB PO SCH (10:10)
[2023-10-25] MEDS: METOPROLOL TARTRATE 25 MG TAB PO SCH ×3 (10:11→21:28)
[2023-10-25] MEDS: HEPARIN SOD,PORK IN 0.45% NACL 25,000 UNIT in 0.45% NACL 1 250ML.BAG IV SCH (10:18)
[2023-10-25 11:34] LABS: Glucose,Whole Blood 150 mg/dL (70-110)
--- NOTE | 2023-10-25 12:23 | P.PN ---
Subjective Progress Note Date: 10/25/23 Hospital course: Patient is a very pleasant 83-year-old female with a past medical history of paroxysmal atrial fibrillation on anticoagulation with Eliquis, chronic diastolic heart failure, hypertension, hyperlipidemia, chronic kidney disease stage IIIb, and hypothyroidism. She presented to the emergency department with a chief complaint of palpitations and shortness of breath on 10/23/2023. Patient reported she ran out of her medications for her atrial fibrillation and hypertension and noticed that her blood pressure had been elevated and was experiencing mild shortness of breath during this time. Patient reports this later progressed into significant palpitations and worsening shortness of breath. She underwent full evaluation in the emergency department. Upon arrival to our facility, vital signs were obtained. Heart rate was 132 bpm, blood pressure was 108/72, respiratory rate was 18, temp 97.8 F, and SpO2 was 98% on room air. EKG was completed confirming atrial fibrillation with RVR at 132 bpm with T wave inversion in leads I and aVL and mild ST depression in leads I, II, and V4 through V6. Chest x-ray was completed and was negative for acute cardiopulmonary process. Labs completed and reviewed. CBC showing microcytic anemia with hemoglobin of 10.3 and this is at patient's baseline. BMP consistent with patient's known CKD stage III with BUN of 37, creatinine 1.70, GFR of 28 and is at patient's baseline. Blood glucose was 104. Liver profile was unremarkable. Troponin was elevated at 1.810. Patient was started on low intensity heparin infusion along with given a Cardizem bolus followed by infusion. She was admitted under our services with consult to cardiology for A- fib RVR and NSTEMI. Troponins trended resulting at 1.810, 1.930, and 2.080. Patient is scheduled to undergo cardiac cath later today. Physical exam: Patient was seen and fully evaluated at bedside this morning. She remains in A- fib with RVR with ventricular rate 110s at this time. She remains on IV heparin infusion but was weaned off of Cardizem infusion.. She reports her only complaint is being hungry at this time as she is waiting to go down for cardiac catheterization later today. Patient denies having any chest pain, potation's, dizziness, lightheadedness, or shortness of breath at rest. Patient does report continued significant exertional dyspnea but again denies shortness of breath at rest. Vital signs reviewed and stable. General: Nontoxic, no distress and appears stated age. Derm: Skin warm and dry, normal coloration for ethnicity. Head: Atraumatic, normocephalic and symmetric. Eyes: EOMs intact, no lid lag, and anicteric sclera Mouth: no lip lesions, mucus membranes moist Cardiovascular: Irregularly irregular, systolic murmur, positive posterior tibial pulses bilaterally, and cap refill < 2 seconds. Lungs: Respirations even, regular, and unlabored on room air. Lungs CTA bilaterally, no rhonchi, no rales, no wheezing, and no accessory muscle usage. Abdominal: soft, nontender to palpation, no guarding, no appreciable organomegaly Ext: No gross muscle atrophy, no edema, no contractures. Movement and sensation intact. Right lower extremity 2-3+ edema and left lower extremity 1-2+ edema. Neuro: Speech clear, face symmetrical and CN II-XII grossly intact with no noted focal neuro deficits Psych: Alert and oriented to person, place, time, and situation. Appropriate and pleasant affect. Assessment and Plan of Care: NSTEMI Atrial fibrillation with RVR HFpEF Hypertension Hyperlipidemia -Cardiology following, taking patient for cardiac catheterization later today. -Telemetry monitoring -Troponins trended resulting at 1.810, 1.930, and 2.080. -Continue low intensity heparin infusion with close monitoring of PTT every 6 hours to maintain goal therapeutic range of 44 to 79 seconds. Currently PTT subtherapeutic at 36.1 resulting in increased infusion rate from 14 units/kg/h up to 18 units/kg/h -Cardizem infusion was discontinued and patient remains on metoprolol 75 mg 3 times daily and verapamil 40 mg 3 times daily. -NPO until cleared by cardiology then may resume heart healthy diet -Continue aspirin 81 mg daily and atorvastatin 20 mg daily. -Lipid profile normal findings with the exception of low HDL of 35.70. -Echocardiogram completed 08/19/2023 revealed a preserved EF of 55 to 60% with mild to moderate mitral regurgitation, will defer to cardiology if they want to repeat echocardiogram at this time. Lower extremity edema, right greater than left -Venous Doppler of right lower extremity was negative for DVT. Hypothyroidism -Continue daily medication regimen with levothyroxine 25 mcg daily. -TSH normal findings at 4.300. Chronic kidney disease stage III -BUN 36, creatinine 1.83, and GFR of 26. Stable with renal function at baseline creatinine of 1.7. Data and imaging reviewed: Morning labs completed and reviewed. CBC showing stable normocytic anemia with hemoglobin of 9.4. PTT was subtherapeutic at 36.1. BMP revealing slight elevation of renal function with BUN of 36, creatinine 1.83, GFR of 26 with baseline creatinine of 1.7. Vital signs reviewed. Blood pressure 166/84, heart rate 111, respiratory rate 18, temp 99.4 F, and SpO2 of 94% on room air. CODE STATUS: Full code DVT prophylaxis: Low intensity heparin infusion Anticipated discharge date: Clinical course to determine Anticipated discharge place: Clinical course to determine Patient was seen independently by Nurse Pracitioner. This document was prepared using [employer] dictation software. Please allow for e rrors in playground monitor, while rare they do occur. Objective - Vital Signs Vital signs: Vital Signs Temp 97.8 F 10/25/23 04:00 Pulse 78 10/25/23 04:00 Resp 16 10/25/23 04:00 BP 104/60 10/25/23 04:00 Pulse Ox 95 10/25/23 04:00 FiO2 Intake & Output 10/24/23 10/25/23 10/25/23 18:59 06:59 18:59 Intake Total 480 370.000 Output Total 700 1650 Balance -220 -1280.000 Intake: Intake, IV Titration 250.000 Amount Heparin Sod,Pork in 0.45% 250.000 NaCl 25,000 unit In 0.45 % NaCl 1 250ml.bag @ 12 UNITS/KG/HR 9.525 mls/hr IV .Q24H [facility] Rx#: [id number] Oral 480 120 Output: Urine 700 1650 Other: Voiding Method External Catheter External Catheter # Voids 1 - Labs CBC & Chem 7: 10/25/23 04:07 10/25/23 04:07 Labs: Abnormal Lab Results - Last 24 Hours (Table) 10/24/23 10/24/23 10/24/23 Range/Units 01:25 15:39 21:03 RBC (3.80-5.40) m/uL Hgb (11.4-16.0) gm/dL Hct (34.0-46.0) % APTT 38.4 H 33.9 H (22.0-30.0) sec BUN (7-17) mg/dL Creatinine (0.52-1.04) mg/dL Glucose (74-99) mg/dL POC Glucose (mg/dL) (70-110) mg/dL Calcium (8.4-10.2) mg/dL Albumin (3.5-5.0) g/dL HDL Cholesterol 35.70 L (40.00-60.00) mg/dL 10/25/23 10/25/23 10/25/23 Range/Units 04:07 04:07 04:07 RBC 3.53 L (3.80-5.40) m/uL Hgb 9.4 L (11.4-16.0) gm/dL Hct 28.9 L (34.0-46.0) % APTT 38.8 H (22.0-30.0) sec BUN 36 H (7-17) mg/dL Creatinine 1.83 H (0.52-1.04) mg/dL Glucose 137 H (74-99) mg/dL POC Glucose (mg/dL) (70-110) mg/dL Calcium 8.3 L (8.4-10.2) mg/dL Albumin 3.1 L (3.5-5.0) g/dL HDL Cholesterol (40.00-60.00) mg/dL 10/25/23 Range/Units 06:19 RBC (3.80-5.40) m/uL Hgb (11.4-16.0) gm/dL Hct (34.0-46.0) % APTT (22.0-30.0) sec BUN (7-17) mg/dL Creatinine (0.52-1.04) mg/dL Glucose (74-99) mg/dL POC Glucose (mg/dL) 133 H (70-110) mg/dL Calcium (8.4-10.2) mg/dL Albumin (3.5-5.0) g/dL HDL Cholesterol (40.00-60.00) mg/dL
[2023-10-25] MEDS: SODIUM CHLORIDE 0.9% 1,000 ML IV SCH (13:57)
[2023-10-25] MEDS ORDERED: ALPRAZolam 0.25 MG TAB PO PRN (15:42)
[2023-10-25] MEDS ORDERED: ALPRAZolam 0.5 MG TAB PO PRN (15:42)
[2023-10-25] MEDS ORDERED: NITROGLYCERIN SL TABS 0.4 MG TAB SUBLINGUAL PRN (15:42)
--- NOTE | 2023-10-25 15:48 | P.PN ---
Subjective Progress Note Date: 10/25/23 Consult reason: atrial fibrillation (with RVR, NSTEMI) History of present illness: HISTORY OF PRESENT ILLNESS: This is a 83-year-old female with a past medical history significant for hypertension, hyperlipidemia, chronic lower extremity edema, and atrial fibrillation. Patient followed in the office with Dr. Gallardo in 2021 but is in the process of changing to Dr. Mosley. She had a recent hospitalization in August 2023 for paroxysmal atrial fibrillation RVR, lower extremities cellulitis, acute heart failure with preserved ejection fraction. We have been asked to evaluate the patient for non-ST elevated AK and A-fib with RVR. Patient gives history of having elevated blood pressure yesterday that was quite high but upon review of her documentation her numbers do not seem to be accurate. Her blood pressure was 123/113. She states she also had a little difficulty in breathing and this was even with talking. She sometimes has palpitations but mostly shortness of breath. Prior to that for couple days that she had vomiting and diarrhea and that she may have passed out at that time but she is not sure. Vomiting and diarrhea have resolved. Upon arrival to the emergency center, blood pressure was 108/62 with a heart rate of 132 and atrial fibrillation. Blood pressure is now 163/89 heart is running 120. Patient has been started on Cardizem drip and heparin drip. Patient is seen today in the emergency center waiting for a bed on the CSD unit. Patient has not been taking her medications for about 3 weeks. She is in the process of changing PCPs and has not followed up in the office. EKG reveals atrial fibrillation with a heart rate 132. Chest xray no acute process WBC 8.3, hemoglobin 10.3, platelet count 257. INR 1. Sodium 136, potassium 4.2, BUN 37 creatinine 1.7. Troponins 1.81, 1.93, 2.08. Triglycerides 92, chol esterol 100, LDL 46, HDL 35. TSH 4.3. Current home cardiac medications include Eliquis 2.5 mg twice a day, atorvastatin 20 mg daily, Lasix 40 mg daily, Lopressor 75 mg 3 times daily, verapamil 40 mg 3 times daily, also on levothyroxine 25 mcg daily. Most recent echocardiogram obtained in July 2023 revealed ejection fraction 55-60%, mild pulmonary hypertension, and mild to moderate MR Patient underwent Lexiscan stress test in June 2022 revealing abnormal nuclear scan showing ischemia involving inferior lateral wall 10/25 Patient is seen today in follow-up on the cardiac stepdown unit. Patient states that she is feeling pretty good today. She does complain of weakness and difficulty in breathing. Right lower extremity duplex was negative for DVT. Patient was weaned off Cardizem drip yesterday afternoon and remains in atrial fibrillation with rate control. Patient is also on heparin drip. Blood pressure 117/70, heart rate 81, pulse ox 94% on room air. Repeat blood work reveals hemoglobin 9.4, BUN 36, creatinine 1.83, potassium 3.7. Dr. Mcelroy discussed in detail with the patient and her family members about cardiac catheterization which we will reschedule for tomorrow. PHYSICAL EXAM: VITAL SIGNS: Reviewed. GENERAL: Well-developed in no acute distress. HEENT: Head is normocephalic. Pupils are equal, round. Sclerae anicteric. No JVD or thyromegaly LUNGS: Respirations even and unlabored. Lungs essentially clear to auscultation bilaterally. HEART: Irregular rate and rhythm. S1 and S2 heard. Systolic murmur noted. ABDOMEN: Soft. Nondistended. Nontender. EXTREMITIES: No clubbing or cyanosis. Peripheral pulses intact. 1+ right lower extremity edema and trace on left LE. No erythema. NEUROLOGIC: Awake and alert. Oriented x 3. ASSESSMENT: NSTEMI Hypertension, uncontrolled Paroxysmal atrial fibrillation with RVR, currently rate controlled Chronic heart failure with preserved ejection fraction, 55-60% Hypertension Hyperlipidemia Chronic kidney disease Abnormal stress test in June 2022 revealing inferior lateral reversibility Noncompliance with medications PLAN: Continue Heparin gtt Continue home cardiac medications and aspirin 81 mg daily Discussed in detail recommendations for cardiac catheterization with the patient and family at bedside. Patient is in agreement to move forward with cardiac catheterization but postpone until tomorrow due to kidney function. Schedule patient for cardiac catheterization tomorrow at 730 N.p.[address]. after midnight Further recommendations pending patient's course Nurse practitioner note has been reviewed by physician. Signing provider agrees with the documented findings, assessment, and plan of care. Objective - Vital Signs Vital signs: Vital Signs Temp 98.7 F 10/25/23 11:16 Pulse 81 10/25/23 11:16 Resp 18 10/25/23 11:16 BP 117/70 10/25/23 11:16 Pulse Ox 94 L 10/25/23 11:16 FiO2 Intake & Output 10/24/23 10/25/23 10/25/23 18:59 06:59 18:59 Intake Total 480 370.000 Output Total 700 1650 700 Balance -220 -1280.000 -700 Intake: Intake, IV Titration 250.000 Amount Heparin Sod,Pork in 0.45% 250.000 NaCl 25,000 unit In 0.45 % NaCl 1 250ml.bag @ 12 UNITS/KG/HR 9.525 mls/hr IV .Q24H [facility] Rx#: [id number] Oral 480 120 Output: Urine 700 1650 700 Other: Voiding Method External Catheter External Catheter External Catheter # Voids 1 - Labs CBC & Chem 7: 10/25/23 04:07 10/25/23 04:07 Labs: Abnormal Lab Results - Last 24 Hours (Table) 10/24/23 10/24/23 10/25/23 Range/Units 15:39 21:03 04:07 RBC 3.53 L (3.80-5.40) m/uL Hgb 9.4 L (11.4-16.0) gm/dL Hct 28.9 L (34.0-46.0) % APTT 38.4 H 33.9 H (22.0-30.0) sec BUN (7-17) mg/dL Creatinine (0.52-1.04) mg/dL Glucose (74-99) mg/dL POC Glucose (mg/dL) (70-110) mg/dL Calcium (8.4-10.2) mg/dL Albumin (3.5-5.0) g/dL 10/25/23 10/25/23 10/25/23 Range/Units 04:07 04:07 06:19 RBC (3.80-5.40) m/uL Hgb (11.4-16.0) gm/dL Hct (34.0-46.0) % APTT 38.8 H (22.0-30.0) sec BUN 36 H (7-17) mg/dL Creatinine 1.83 H (0.52-1.04) mg/dL Glucose 137 H (74-99) mg/dL POC Glucose (mg/dL) 133 H (70-110) mg/dL Calcium 8.3 L (8.4-10.2) mg/dL Albumin 3.1 L (3.5-5.0) g/dL 10/25/23 10/25/23 Range/Units 08:34 11:32 RBC (3.80-5.40) m/uL Hgb (11.4-16.0) gm/dL Hct (34.0-46.0) % APTT 36.1 H (22.0-30.0) sec BUN (7-17) mg/dL Creatinine (0.52-1.04) mg/dL Glucose (74-99) mg/dL POC Glucose (mg/dL) 150 H (70-110) mg/dL Calcium (8.4-10.2) mg/dL Albumin (3.5-5.0) g/dL
[2023-10-25 16:33] LABS: Glucose,Whole Blood 209 mg/dL (70-110)
[2023-10-25 20:10] LABS: Glucose,Whole Blood 112 mg/dL (70-110)
[2023-10-26] MEDS: METOPROLOL TARTRATE 25 MG TAB PO SCH ×3 (05:17→21:16)
[2023-10-26] MEDS: LEVOTHYROXINE 25 MCG TAB PO SCH (05:17)
[2023-10-26] MEDS: VERAPAMIL 40 MG TAB PO SCH ×3 (05:17→21:16)
[2023-10-26] MEDS: SODIUM CHLORIDE 0.9% 1,000 ML IV SCH ×3 (05:17→16:36)
[2023-10-26] MEDS: ATORVASTATIN 20 MG TAB PO SCH (05:18)
[2023-10-26] MEDS: ASPIRIN 81 MG PO SCH (05:18)
[2023-10-26] MEDS ORDERED: ATORVASTATIN 80 MG TAB PO ONE (06:00)
[2023-10-26] MEDS ORDERED: ASPIRIN 325 MG TAB PO ONE (06:00)
[2023-10-26 06:07] LABS: Basophils # (A) 0.1 k/uL (0-0.2); Basophils % (A) 1 %; Eosinophils # (A) 0.1 k/uL (0-0.7); Eosinophils % (A) 1 %; HCT 30.3 % (34.0-46.0); HGB 9.7 gm/dL (11.4-16.0); Hypochromasia Moderate; Lymphocytes # (A) 0.8 k/uL (1.0-4.8); Lymphocytes % (A) 11 %; MCH 26.3 pg (25.0-35.0); MCV 82.1 fL (80.0-100.0); Mean Platelet Volume 7.6; Monocytes # (A) 0.4 k/uL (0-1.0); Monocytes % (A) 6 %; Neutrophils # (A) 6.1 k/uL (1.3-7.7); Neutrophils % (A) 78 %; Platelet Count 266 k/uL (150-450); RBC 3.69 m/uL (3.80-5.40); RDW 14.4 % (11.5-15.5); WBC 7.7 k/uL (3.8-10.6)
[2023-10-26 06:12] LABS: Glucose,Whole Blood 171 mg/dL (70-110)
[2023-10-26 06:32] LABS: African American GFR (CKD) 33 (>60 ml/min/1.73 sqM); Anion Gap 11 mmol/L; Blood Urea Nitrogen 34 mg/dL (7-17); Calcium 8.4 mg/dL (8.4-10.2); Carbon Dioxide 22 mmol/L (22-30); Chloride 103 mmol/L (98-107); Glucose 160 mg/dL (74-99); Non-African American GFR(CKD) 29 (>60 ml/min/1.73 sqM); Potassium 3.8 mmol/L (3.5-5.1); Sodium 136 mmol/L (137-145)
[2023-10-26] MEDS ORDERED: HEPARIN SODIUM,PORCINE 10,000 UNIT in SODIUM CHLORIDE 0.9% 1,000 ML IRRIGATION PRN (07:00)
[2023-10-26] MEDS ORDERED: HEPARIN SODIUM,PORCINE (1 ML) 2,500 UNIT in SODIUM CHLORIDE 0.9% 250 ML IRRIGATION PRN (07:00)
[2023-10-26] MEDS ORDERED: fentaNYL (PF) 50 MCG/ML 2 ML AMP IVP ONE (07:50)
[2023-10-26] MEDS ORDERED: MIDAZOLAM 2 MG/2 ML VIAL IVP ONE (07:50)
[2023-10-26] MEDS ORDERED: LIDOCAINE 1% INJ 10MG/ML (30 ML VIAL-PF) SQ ONE (07:52)
[2023-10-26] MEDS ORDERED: VERAPAMIL SYRINGE (5 MG/10 ML) INTRAARTER ONE (07:53)
[2023-10-26] MEDS ORDERED: IV FLUID CONTINUATION 1,000 ML IV ONE (07:53)
[2023-10-26] MEDS ORDERED: HEPARIN SODIUM 1,000 UN/ML (10ML VL) IV ONE (07:56)
[2023-10-26] MEDS ORDERED: SODIUM CHLORIDE 0.9% 1,000 ML IV ONE (07:59)
[2023-10-26] MEDS ORDERED: IOPAMIDOL-370 100ML BTL INJ ONE (08:10)
--- NOTE | 2023-10-26 08:27 | P.CARDCATH ---
Description of Procedure: PROCEDURES PERFORMED: Left heart catheterization, bilateral coronary angiography, ultrasound guided arterial access INDICATION: NSTEMI CONSENT:I have discussed the risks, benefits and alternative therapies for the above-mentioned procedure and for both sedation/analgesia as well as necessary blood product administration, if indicated, as they pertain to this patient. The patient has indicated understanding and acceptance of the risks and procedures discussed. PROCEDURE: After the risks, benefits and alternatives of the above mentioned procedure explained in detail with the patient, informed consent was obtained. Patient was taken to the catheterization lab and prepped and draped in usual fashion. Ultrasound guidance was used to assess for arterial access. 1% lidocaine was used to anesthetize the right radial artery. A 6-Lao sheath was placed in the right radial artery using modified Seldinger technique and ultrasound guidance. Left coronary angiography was performed with a 5-Lao JL 3.5 catheter and right coronary angiography was performed with a 5-Lao FR5 catheter in various views. A 5-Lao FR5 catheter was inserted into the left ventricle and pressure measurements were obtained. The right radial sheath was removed and a TR band was placed with hemostasis achieved. The patient tolerated the procedure well. Patient was transported back to the post catheterization holding area in stable condition. Conscious Sedation: Patient was monitored under the direct supervision of myself for conscious sedation using Versed and fentanyl for a total duration of 11 minutes HEMODYNAMICS: Ao: 139/71 LV: 131/10 LVEDP 15 SELECTIVE CORONARY ARTERIOGRAPHY: LEFT MAIN: The left main is a large caliber vessel which bifurcates into the LAD and circumflex. There is a heavily calcified distal left main 80% stenosis LEFT ANTERIOR DESCENDING CORONARY ARTERY: LAD is a large caliber vessel which wraps around to the apex. There is 10-20% proximal LAD stenosis and then diagonal 1 has a 50% ostial stenosis and just after diagonal 1 there is a long calcified 60 is 70% stenosis. LEFT CIRCUMFLEX CORONARY ARTERY: Left circumflex is a moderate caliber vessel with 100% ostial circumflex RIGHT CORONARY ARTERY: The right coronary artery is a large caliber vessel which gives off a PDA and PLV branch and is the dominant vessel. There is mid RCA 20- 30% stenosis and otherwise mild luminal irregularities. There are right to left collaterals FINAL IMPRESSION: 1. CAD as described above including left main 80% stenosis, mid LAD 60-70% stenosis, circumflex 100% stenosis 2. Normal left sided filling pressures PLAN: 1. Aggressive risk factor modification per most recent ACC/AHA guidelines. 2. Given contrast threshold no intervention performed. Patient frail with CKD and multiple risk factors and likely high risk. Have surgery team evaluate however likely perform PCI left main and LAD
[2023-10-26] MEDS: TAMSULOSIN 0.4 MG CAP.ER.24H PO SCH (10:31)
[2023-10-26] MEDS: FUROSEMIDE 40 MG TAB PO SCH (10:31)
[2023-10-26 11:33] LABS: Glucose,Whole Blood 122 mg/dL (70-110)
--- NOTE | 2023-10-26 11:33 | P.PN ---
Subjective Progress Note Date: 10/26/23 Hospital Course: 83-year-old female with history of paroxysmal atrial fibrillation on Eliquis, chronic diastolic heart failure, hypertension, dyslipidemia, CKD stage IIIb, hypothyroidism presented with shortness of breath and palpitations on 10/23/2023. On arrival, patient was tachycardic up to 132, rest of the vital signs were within normal limits. EKG showed atrial fibrillation with RVR, with T wave inversions and mild ST depression in lateral leads. Chest x-ray did not show any acute process. Hemoglobin 10.3 around baseline, BMP consistent with CKD stage III, with creatinine of 1.7, Troponin elevated to 1.81. Patient started on heparin drip as well as Cardizem drip. Cardiology consulted. Troponins up trended to 2.08. Negative for A-fib with RVR and NSTEMI. Subjective: Patient seen and examined at bedside. No acute events overnight. Still having shortness of breath at rest and with exertion, denies any significant chest pain. Pertinent positives and negatives as discussed above, a complete review of systems was performed and all other systems are negative. Vitals Signs Reviewed. General: Nontoxic, no distress,, appears very frail appears at stated age Derm: Warm, dry Head: Atraumatic, normocephalic, symmetric Eyes: EOMI, no lid lag, anicteric sclera Mouth: No lip lesion, mucus membranes moist Cardiovascular: S1S2 irregular systolic, systolic murmur Lungs: CTA bilateral, no rhonchi, no rales, no accessory muscle use Abdominal: Soft, nontender to palpation, no guarding, no appreciable organomegaly Ext: No gross muscle atrophy, + X Right lower extremity 2-3+ edema, left lower extremity 1-2+ edema statin, no contractures Neuro: CN II-XI grossly intact, no focal neuro deficits Psych: Alert, oriented, appropriate affect Data Reviewed Today: Pertinent Labs: WBC 7.7, hemoglobin 9.7, sodium 136, creatinine 1.65, blood sugars range between 1 12-1 71. Imaging: No new imaging Assessment and Plan: Active: NSTEMI Coronary artery disease, multivessel Dyslipidemia -Cardiac cath report reviewed, patient has CAD including left main 80% stenosis, mild LAD 60 to 70% stenosis, circumflex 100% stenosis. Given contrast threshold, no intervention were performed, needs surgical team evaluation, may need surgery versus PCI of left main and LAD. -Patient maintained on heparin drip, aspirin 81 mg, atorvastatin increased to 40 mg daily Chronic kidney disease stage III Mild normocytic anemia, likely anemia of chronic disease -Renal function slowly improving, patient currently getting normal saline at 100 cc an hour because of recent cath, hold Lasix 40 mg daily, per cardiac cath patient had normal left-sided filling pressures -Repeat BMP tomorrow -Repeat CBC Atrial fibrillation with RVR, now rate controlled -Continue heparin drip, monitor APTT and bleeding -Continue metoprolol 75 3 times daily Hypertension -Continue verapamil 40 3 times daily Hypothyroidism -Continue 25 mcg levothyroxine DVT ppx: Heparin drip Code status: Full code Anticipated discharge place: Pending clinical course Anticipated discharge time: Pending clinical course Objective - Vital Signs Vital signs: Vital Signs Temp 97.8 F 10/26/23 00:00 Pulse 90 10/26/23 04:00 Resp 18 10/26/23 08:00 BP 162/70 10/26/23 04:00 Pulse Ox 94 L 10/26/23 04:00 FiO2 Intake & Output 10/25/23 10/26/23 10/26/23 18:59 06:59 18:59 Intake Total 550 Output Total 1600 1250 Balance -1600 -1250 550 Intake: IV 550 Output: Urine 1600 1250 Other: Voiding Method External Catheter External Catheter External Catheter # Voids 1 # Bowel Movements 1 - Labs CBC & Chem 7: 10/26/23 05:50 10/26/23 05:50 Labs: Abnormal Lab Results - Last 24 Hours (Table) 10/25/23 10/25/23 10/25/23 Range/Units 11:32 16:32 20:02 RBC (3.80-5.40) m/uL Hgb (11.4-16.0) gm/dL Hct (34.0-46.0) % Lymphocytes # (1.0-4.8) k/uL APTT 51.5 H (22.0-30.0) sec Sodium (137-145) mmol/L BUN (7-17) mg/dL Creatinine (0.52-1.04) mg/dL Glucose (74-99) mg/dL POC Glucose (mg/dL) 150 H 209 H (70-110) mg/dL 10/25/23 10/26/23 10/26/23 Range/Units 20:08 05:50 05:50 RBC 3.69 L (3.80-5.40) m/uL Hgb 9.7 L (11.4-16.0) gm/dL Hct 30.3 L (34.0-46.0) % Lymphocytes # 0.8 L (1.0-4.8) k/uL APTT (22.0-30.0) sec Sodium 136 L (137-145) mmol/L BUN 34 H (7-17) mg/dL Creatinine 1.65 H (0.52-1.04) mg/dL Glucose 160 H (74-99) mg/dL POC Glucose (mg/dL) 112 H (70-110) mg/dL 10/26/23 Range/Units 06:10 RBC (3.80-5.40) m/uL Hgb (11.4-16.0) gm/dL Hct (34.0-46.0) % Lymphocytes # (1.0-4.8) k/uL APTT (22.0-30.0) sec Sodium (137-145) mmol/L BUN (7-17) mg/dL Creatinine (0.52-1.04) mg/dL Glucose (74-99) mg/dL POC Glucose (mg/dL) 171 H (70-110) mg/dL
--- NOTE | 2023-10-26 13:22 | P.GSCN ---
History of Present Illness Consult date: 10/26/23 Reason for Consult: Coronary artery disease with left main disease, non-ST elevated myocardial infarction this admission with troponins as high as 2.080 Requesting physician: James Mosley History of present illness: This is an 83-year-old female patient who used to follow on an outpatient basis with Dr. Moe for her primary care, although is in the process of changing family doctors. She also follows with Dr. Gallardo for her cardiology care but is in the process of changing care to Dr. Mosley. She has a past medical history significant for chronic kidney disease stage IV, history of non-ST elevated myoc ardial infarction in July 2023, hypertension, hyperlipidemia, atrial fibrillation on Eliquis for anticoagulation as an outpatient, history of cellulitis to her left leg, asthma, hypothyroid, diabetes mellitus type 2, urine incontinence, irritable bowel syndrome and a remote history of smoking quit around 30 to 40 years ago. The patient presented to the emergency department here at [facility] on October 23, 2023 with complaints of elevated blood pressure, feeling of racing heart rate, shortness of breath, nausea and vomiting, diarrhea, feeling diaphoretic and feeling as if she was going to pass out. She denies any recent fever, chills, cough, hematemesis, hemoptysis, syncope, chest pain/pressure, headache, visual disturbances, recent weight loss or abdominal pain. A twelve-lead EKG was completed in the emergency department which showed atrial fibrillation with a rapid ventricular response with a heart rate of [address] and T wave abnormality. In itial laboratory results showed a WBC count of 8.3, hemoglobin 10.3, hematocrit 31.4, platelets 257, PT 10.5, INR 1.0, PTT 24.3, sodium 136, potassium 4.2, BUN 37, creatinine 1.70, glucose 104, magnesium 2.0, and positive serial troponins as high as 2.080. The patient reports that she was concerned about her diastolic blood pressure of 113 mmHg at home. A chest x-ray was completed which showed no acute pulmonary process. She also underwent a venous duplex Doppler study of her right lower extremity, due to some swelling which showed negative for DVT. The patient also reports that due to her switching of primary care physicians she has not taken her medications for the past 3 to 4 weeks as she needed renewal on her medications. In July 2023 the patient underwent a transthoracic 2D echocardiogram which showed severely increased left ventricular wall thickness, left ventricular cavity size to be normal with a left ventricular ejection fraction estimated at 55 to 60%, mild pulmonary hypertension, mild to moderate mitral valve regurgitation, mild to moderate tricuspid valve regurgitation, trace pulmonic valve regurgitation and no pericardial effusion. Subsequently, due to the patient's presenting symptoms and elevated troponins it was recommended the patient undergo a heart c atheterization which was completed today. The heart catheterization demonstrated an 80% stenosis to her left main coronary artery, a 60 to 70% stenosis to her mid left anterior descending coronary artery, and 100% stenosis to her circumflex coronary artery. Due to the findings on the cardiac angela terization a consult was placed to Dr. Jeffery Wood from cardiothoracic surgery for further evaluation and treat recommendations. Review of Systems A 14 point review of systems was completed and was negative except as mentioned in the HPI. Past Medical History Past Medical History: Atrial Fibrillation, Asthma, Cancer (History of uterine cancer status post radiation and chemotherapy), Diabetes Mellitus, Hyperlipidemia, Hypertension, Myocardial Infarction (non Q-wave), Osteoarthritis (OA), Renal Disease (Stage IV chronic kidney disease), Thyroid Disorder Additional Past Medical History / Comment(s): uterine cancer, incontinent of urine History of Any Multi-Drug Resistant Organisms: None Reported Past Surgical History: Orthopedic Surgery (Bilateral carpal tunnel repair) Additional Past Surgical History / Comment(s): cataract & carpal-tunnel bilat. Past Anesthesia/Blood Transfusion Reactions: No Reported Reaction Past Psychological History: No Psychological Hx Reported Smoking Status: Former smoker (Quit smoking about 40 years ago) Past Alcohol Use History: None Reported Past Drug Use History: None Reported - Past Family History Mother Family Medical History: Coronary Artery Disease (CAD), Diabetes Mellitus, Hypertension, Mitral Valve Prolapse (MVP) Father Family Medical History: Hypertension Additional Family Medical History / Comment(s): father hip surgery Medications and Allergies Home Medications Medication Instructions Recorded Confirmed Type Levothyroxine Sodium 25 mcg PO DAILY 06/28/22 10/23/23 History Psyllium Husk [Fiber Capsule] 3.2 gm PO BID 08/18/23 10/23/23 History Apixaban [Eliquis] 2.5 mg PO BID 30 Days #60 tab 08/23/23 10/23/23 Rx Atorvastatin [Lipitor] 20 mg PO DAILY #30 tab 09/10/23 10/23/23 Rx Furosemide [Lasix] 40 mg PO DAILY #30 tab 09/10/23 10/23/23 Rx Loperamide [Imodium] 2 mg PO QID cap 09/10/23 10/23/23 Rx Metoprolol Tartrate [Lopressor] 75 mg PO TID #90 tab 09/13/23 10/23/23 Rx Tamsulosin [Flomax] 0.4 mg PO PC-BRKFST #30 cap 09/13/23 10/23/23 Rx Verapamil [Isoptin] 40 mg PO TID #90 tab 09/13/23 10/23/23 Rx Allergies Allergy/AdvReac Type Severity Reaction Status Date / Time bacitracin Allergy Rash/Hives Verified 10/23/23 21:25 [From Neosporin ([id number])] ibuprofen Allergy Anaphylaxis Verified 10/23/23 21:25 & Rash all over neomycin Allergy Rash/Hives Verified 10/23/23 21:25 [From Neosporin ([id number])] polymyxin B Allergy Rash/Hives Verified 10/23/23 21:25 [From Neosporin ([id number])] Surgical - Exam Vital Signs Temp Pulse Resp BP Pulse Ox 97.8 F 132 H 18 108/72 98 10/23/23 19:14 10/23/23 19:14 10/23/23 19:14 10/23/23 19:14 10/23/23 19:14 - General well developed, well nourished, no distress, no pain, chronically ill, obese - Eyes PERRL, normal ocular movement, no pale, no icteric - ENT normal pinna, normal nares, normal mucosa, no hearing loss, no congestion, poor snf (Has 1 tooth) - Neck Neck is supple, no lymphadenopathy. no masses, no bruits, trachea midline, no venous distension - Respiratory Lungs essentially clear throughout, diminished to her bilateral bases. Respirations are symmetrical and nonlabored. No wheezes, rhonchi or crackles. - Cardiovascular Irregular rhythm, and controlled rate. S1 and S2 present, negative for S3, or gallop. Soft systolic murmur. - Abdomen Abdomen is soft, nontender and nondistended. Active bowel sounds present all 4 abdominal quadrants. No guarding or rigidity. No organomegaly appreciated. - Genitourinary Incontinent of urine - Rectum Deferred - Integumentary Skin is warm and dry. No clubbing or cyanosis is present. +1 edema present to her bilateral lower extremities right greater than left no rash, no growths, no abnormal pigmentation - Neurologic No focal deficits. - Musculoskeletal Moves all 4 extremities with equal strength bilaterally - Psychiatric oriented to time, oriented to person, oriented to place, speech is normal, memory intact Results - Labs 10/26/23 05:50 10/26/23 05:50 Abnormal Lab Results - Last 24 Hours (Table) 10/25/23 10/25/23 10/25/23 Range/Units 08:34 11:32 16:32 RBC (3.80-5.40) m/uL Hgb (11.4-16.0) gm/dL Hct (34.0-46.0) % Lymphocytes # (1.0-4.8) k/uL APTT 36.1 H (22.0-30.0) sec Sodium (137-145) mmol/L BUN (7-17) mg/dL Creatinine (0.52-1.04) mg/dL Glucose (74-99) mg/dL POC Glucose (mg/dL) 150 H 209 H (70-110) mg/dL 10/25/23 10/25/23 10/26/23 Range/Units 20:02 20:08 05:50 RBC 3.69 L (3.80-5.40) m/uL Hgb 9.7 L (11.4-16.0) gm/dL Hct 30.3 L (34.0-46.0) % Lymphocytes # 0.8 L (1.0-4.8) k/uL APTT 51.5 H (22.0-30.0) sec Sodium (137-145) mmol/L BUN (7-17) mg/dL Creatinine (0.52-1.04) mg/dL Glucose (74-99) mg/dL POC Glucose (mg/dL) 112 H (70-110) mg/dL 10/26/23 10/26/23 Range/Units 05:50 06:10 RBC (3.80-5.40) m/uL Hgb (11.4-16.0) gm/dL Hct (34.0-46.0) % Lymphocytes # (1.0-4.8) k/uL APTT (22.0-30.0) sec Sodium 136 L (137-145) mmol/L BUN 34 H (7-17) mg/dL Creatinine 1.65 H (0.52-1.04) mg/dL Glucose 160 H (74-99) mg/dL POC Glucose (mg/dL) 171 H (70-110) mg/dL Diabetes panel 10/26/23 Range/Units 05:50 Sodium 136 L (137-145) mmol/L Potassium 3.8 (3.5-5.1) mmol/L Chloride 103 (98-107) mmol/L Carbon Dioxide 22 (22-30) mmol/L BUN 34 H (7-17) mg/dL Creatinine 1.65 H (0.52-1.04) mg/dL Glucose 160 H (74-99) mg/dL Calcium 8.4 (8.4-10.2) mg/dL Calcium panel 10/26/23 Range/Units 05:50 Calcium 8.4 (8.4-10.2) mg/dL Pituitary panel 10/26/23 Range/Units 05:50 Sodium 136 L (137-145) mmol/L Potassium 3.8 (3.5-5.1) mmol/L Chloride 103 (98-107) mmol/L Carbon Dioxide 22 (22-30) mmol/L BUN 34 H (7-17) mg/dL Creatinine 1.65 H (0.52-1.04) mg/dL Glucose 160 H (74-99) mg/dL Calcium 8.4 (8.4-10.2) mg/dL Adrenal panel 10/26/23 Range/Units 05:50 Sodium 136 L (137-145) mmol/L Potassium 3.8 (3.5-5.1) mmol/L Chloride 103 (98-107) mmol/L Carbon Dioxide 22 (22-30) mmol/L BUN 34 H (7-17) mg/dL Creatinine 1.65 H (0.52-1.04) mg/dL Glucose 160 H (74-99) mg/dL Calcium 8.4 (8.4-10.2) mg/dL - Imaging Chest x-ray: report reviewed, image reviewed EKG: image reviewed Assessment and Plan Assessment: Coronary artery disease with left main disease Non-ST elevated myocardial infarction this admission Hypertension, uncontrolled Paroxysmal atrial fibrillation with RVR Chronic diastolic heart failure with preserved ejection fraction, 55-60% Hypertension Hyperlipidemia, treated Chronic kidney disease stage IV Noncompliance with medications Plan: The patient was seen and examined at her bedside on the third floor cardiac stepdown unit in conjunction with Dr. Jeffery Wood from cardiothoracic surgery. Her chart and diagnostics were reviewed. Her cardiac catheterization films were reviewed by Dr. Jeffery Wood. Dr. Wood discussed the findings on the cardiac catheterization with the patient and her family members present at her bedside. The patient is considered a high risk surgical candidate which was discussed with the patient and her family by Dr. Wood. Dr. Wood and Dr. Mosley discussed treatment options, the patient is felt to be a high risk surgical candidate due to her other comorbidities. Dr. Mosley will discuss with the patient in regards to proceeding with possible PCI. Continue to maximize medical management with aspirin, statin, heparin drip per protocol and beta- nereyda. We will continue to follow the patient on an as-needed basis, please feel free to reconsult for further recommendations. Thank you Dr. Mosley for this consult. I have personally seen and examined the patient, performed the documentation and the assessment and plan as written. Number of minutes spent on the visit: 30. ROBB Garcia
[2023-10-26 16:11] LABS: Glucose,Whole Blood 144 mg/dL (70-110)
[2023-10-26] MEDS: HEPARIN SOD,PORK IN 0.45% NACL 25,000 UNIT in 0.45% NACL 1 250ML.BAG IV SCH (16:34)
[2023-10-26 20:17] LABS: Glucose,Whole Blood 217 mg/dL (70-110)
[2023-10-27] MEDS: SODIUM CHLORIDE 0.9% 1,000 ML IV SCH ×3 (00:21→13:44)
[2023-10-27] MEDS: HEPARIN SOD,PORK IN 0.45% NACL 25,000 UNIT in 0.45% NACL 1 250ML.BAG IV SCH ×2 (05:45→22:59)
[2023-10-27] MEDS: LEVOTHYROXINE 25 MCG TAB PO SCH (05:47)
[2023-10-27 06:05] LABS: Glucose,Whole Blood 200 mg/dL (70-110)
[2023-10-27] MEDS: TAMSULOSIN 0.4 MG CAP.ER.24H PO SCH (09:53)
[2023-10-27] MEDS: METOPROLOL TARTRATE 25 MG TAB PO SCH ×3 (09:53→21:22)
[2023-10-27] MEDS: ASPIRIN 81 MG PO SCH (09:54)
[2023-10-27] MEDS: VERAPAMIL 40 MG TAB PO SCH ×3 (09:54→21:22)
[2023-10-27] MEDS: ATORVASTATIN 40 MG TAB PO SCH (09:54)
[2023-10-27 10:12] LABS: African American GFR (CKD) 37 (>60 ml/min/1.73 sqM); Anion Gap 8 mmol/L; Blood Urea Nitrogen 27 mg/dL (7-17); Calcium 8.1 mg/dL (8.4-10.2); Carbon Dioxide 23 mmol/L (22-30); Chloride 106 mmol/L (98-107); Glucose 187 mg/dL (74-99); Non-African American GFR(CKD) 32 (>60 ml/min/1.73 sqM); Potassium 3.8 mmol/L (3.5-5.1); Sodium 137 mmol/L (137-145)
[2023-10-27 11:40] LABS: Glucose,Whole Blood 172 mg/dL (70-110)
--- NOTE | 2023-10-27 14:05 | P.PN ---
Subjective Progress Note Date: 10/27/23 Hospital Course: 83-year-old female with history of paroxysmal atrial fibrillation on Eliquis, chronic diastolic heart failure, hypertension, dyslipidemia, CKD stage IIIb, hypothyroidism presented with shortness of breath and palpitations on 10/23/2023. On arrival, patient was tachycardic up to 132, rest of the vital signs were within normal limits. EKG showed atrial fibrillation with RVR, with T wave inversions and mild ST depression in lateral leads. Chest x-ray did not show any acute process. Hemoglobin 10.3 around baseline, BMP consistent with CKD stage III, with creatinine of 1.7, Troponin elevated to 1.81. Patient started on heparin drip as well as Cardizem drip. Cardiology consulted. Troponins up trended to 2.08. Negative for A-fib with RVR and NSTEMI. Cardiac cath showed CAD including left main 80% stenosis, mild LAD 60 to 70% stenosis, circumflex 100% stenosis. Cardiothoracic surgery was consulted. Patient is a poor surgical candidate. Patient to likely get further PCI. Subjective: Patient seen and examined at bedside. No acute events overnight. Still having shortness of breath at rest and with exertion, denies any significant chest pain. Pertinent positives and negatives as discussed above, a complete review of systems was performed and all other systems are negative. Vitals Signs Reviewed. General: Nontoxic, no distress,, appears very frail appears at stated age Derm: Warm, dry Head: Atraumatic, normocephalic, symmetric Eyes: EOMI, no lid lag, anicteric sclera Mouth: No lip lesion, mucus membranes moist Cardiovascular: S1S2 irregular systolic, systolic murmur Lungs: CTA bilateral, no rhonchi, no rales, no accessory muscle use Abdominal: Soft, nontender to palpation, no guarding, no appreciable organomegaly Ext: No gross muscle atrophy, Right lower extremity 2-3+ edema, left lower extremity 1-2+ edema statin, no contractures Neuro: CN II-XI grossly intact, no focal neuro deficits Psych: Alert, oriented, appropriate affect Data Reviewed Today: Pertinent Labs: WBC creatinine 1.51, blood sugars range between 1 72-200 Imaging: No new imaging Assessment and Plan: Active: NSTEMI Coronary artery disease, multivessel Dyslipidemia Atrial fibrillation with RVR, now rate controlled -Cardiology following, patient continues to be on heparin drip, monitor APTT and bleeding -aspirin 81 mg, atorvastatin increased to 40 mg daily, also on metoprolol 75 3 times daily Chronic kidney disease stage III Mild normocytic anemia, likely anemia of chronic disease -Renal function slowly improving, patient currently getting normal saline at 100 cc an hour because of recent cath, hold Lasix 40 mg daily, per cardiac cath patient had normal left-sided filling pressures -Repeat BMP tomorrow -Repeat CBC Hypertension -Continue verapamil 40 3 times daily Hypothyroidism -Continue 25 mcg levothyroxine DVT ppx: Heparin drip Code status: Full code Anticipated discharge place: Pending clinical course Anticipated discharge time: Pending clinical course Objective - Vital Signs Vital signs: Vital Signs Temp 97.1 F L 10/27/23 11:27 Pulse 76 10/27/23 11:27 Resp 18 10/27/23 11:27 BP 126/59 10/27/23 11:27 Pulse Ox 97 10/27/23 11:27 FiO2 Intake & Output 10/26/23 10/27/23 10/27/23 18:59 06:59 18:59 Intake Total 1036 709.298 190.5 Output Total 900 1200 750 Balance 136 -490.702 -559.5 Intake: IV 550 Intake, IV Titration 250 209.298 72.5 Amount Heparin Sod,Pork in 0.45% 250 209.298 72.5 NaCl 25,000 unit In 0.45 % NaCl 1 250ml.bag @ 12 UNITS/KG/HR 9.525 mls/hr IV .Q24H [facility] Rx#: [id number] Oral 236 500 118 Output: Urine 900 1200 750 Other: Voiding Method External Catheter External Catheter # Voids 2 - Labs CBC & Chem 7: 10/26/23 05:50 10/27/23 08:22 Labs: Abnormal Lab Results - Last 24 Hours (Table) 10/26/23 10/26/23 10/26/23 Range/Units 16:09 19:50 20:15 APTT 48.5 H (22.0-30.0) sec BUN (7-17) mg/dL Creatinine (0.52-1.04) mg/dL Glucose (74-99) mg/dL POC Glucose (mg/dL) 144 H 217 H (70-110) mg/dL Calcium (8.4-10.2) mg/dL 10/27/23 10/27/23 10/27/23 Range/Units 06:04 08:22 08:22 APTT 82.9 H (22.0-30.0) sec BUN 27 H (7-17) mg/dL Creatinine 1.51 H (0.52-1.04) mg/dL Glucose 187 H (74-99) mg/dL POC Glucose (mg/dL) 200 H (70-110) mg/dL Calcium 8.1 L (8.4-10.2) mg/dL 10/27/23 Range/Units 11:38 APTT (22.0-30.0) sec BUN (7-17) mg/dL Creatinine (0.52-1.04) mg/dL Glucose (74-99) mg/dL POC Glucose (mg/dL) 172 H (70-110) mg/dL Calcium (8.4-10.2) mg/dL
[2023-10-27] MEDS ORDERED: CLOPIDOGREL 75 MG TAB PO STA (16:04)
[2023-10-27 16:34] LABS: Glucose,Whole Blood 115 mg/dL (70-110)
--- NOTE | 2023-10-27 20:03 | P.PN ---
Subjective Progress Note Date: 10/27/23 HISTORY OF PRESENT ILLNESS: This is a 83-year-old female with a past medical history significant for hy pertension, hyperlipidemia, chronic lower extremity edema, and atrial fibrillation. Patient followed in the office with Dr. Gallardo in 2021 but is in the process of changing to Dr. Mosley. She had a recent hospitalization in August 2023 for paroxysmal atrial fibrillation RVR, lower extremities liss lulitis, acute heart failure with preserved ejection fraction. We have been asked to evaluate the patient for non-ST elevated AR and A-fib with RVR. Patient gives history of having elevated blood pressure yesterday that was quite high but upon review of her documentation her numbers do not seem to be accurate. Her blood pressure was 123/113. She states she also had a little difficulty in breathing and this was even with talking. She sometimes has palpitations but mostly shortness of breath. Prior to that for couple days that she had vomiting and diarrhea and that she may have passed out at that time but she is not sure. Vomiting and diarrhea have resolved. Upon arrival to the emergency center, blood pressure was 108/62 with a heart rate of 132 and atrial fibrillation. Blood pressure is now 163/89 heart is running 120. Patient has been started on Cardizem drip and heparin drip. Patient is seen today in the emergency center waiting for a bed on the CSD unit. Patient has not been taking her medications for about 3 weeks. She is in the process of changing PCPs and has not followed up in the office. EKG reveals atrial fibrillation with a heart rate 132. Chest xray no acute process WBC 8.3, hemoglobin 10.3, platelet count 257. INR 1. Sodium 136, potassium 4.2, BUN 37 creatinine 1.7. Troponins 1.81, 1.93, 2.08. Triglycerides 92, cholesterol 100, LDL 46, HDL 35. TSH 4.3. Current home cardiac medications include Eliquis 2.5 mg twice a day, atorvastatin 20 mg daily, Lasix 40 mg daily, Lopressor 75 mg 3 times daily, verapamil 40 mg 3 times daily, also on levothyroxine 25 mcg daily. Most recent echocardiogram obtained in July 2023 revealed ejection fraction 55-60%, mild pulmonary hypertension, and mild to moderate MR Patient underwent Lexiscan stress test in June 2022 revealing abnormal nuclear scan showing ischemia involving inferior lateral wall 10/25 Patient is seen today in follow-up on the cardiac stepdown unit. Patient states that she is feeling pretty good today. She does complain of weakness and difficulty in breathing. Right lower extremity duplex was negative for DVT. Patient was weaned off Cardizem drip yesterday afternoon and remains in atrial fibrillation with rate control. Patient is also on heparin drip. Blood pressure 117/70, heart rate 81, pulse ox 94% on room air. Repeat blood work reveals hemoglobin 9.4, BUN 36, creatinine 1.83, potassium 3.7. Dr. Mcelroy discussed in detail with the patient and her family members about cardiac catheterization which we will reschedule for tomorrow. 10/26 She underwent LHC that revealed CAD as including left main 80% stenosis, mid LAD 60-70% stenosis, circumflex 100% stenosis 10/27 She was evaluated by CT surgery and deemed to be high risk for surgery. She is out of bed in chair. She reports feeling "pretty good" other than not sleeping well. Her swelling is unchanged. PHYSICAL EXAM: VITAL SIGNS: Reviewed. GENERAL: Well-developed in no acute distress. HEENT: Head is normocephalic. Pupils are equal, round. Sclerae anicteric. No JVD or thyromegaly LUNGS: Respirations even and unlabored. Lungs essentially clear to auscultation bilaterally. HEART: Irregular rate and rhythm. S1 and S2 heard. Systolic murmur noted. ABDOMEN: Soft. Nondistended. Nontender. EXTREMITIES: No clubbing or cyanosis. Peripheral pulses intact. 1+ right lower extremity edema and trace on left LE. No erythema. NEUROLOGIC: Awake and alert. Oriented x 3. ASSESSMENT: NSTEMI Hypertension, uncontrolled Paroxysmal atrial fibrillation with RVR, currently rate controlled Chronic heart failure with preserved ejection fraction, 55-60% Hypertension Hyperlipidemia Chronic kidney disease Abnormal stress test in June 2022 revealing inferior lateral reversibility Noncompliance with medications CAD including left main 80% stenosis, mid LAD 60-70% stenosis, circumflex 100% stenosis PLAN: Continue current medications and add plavix load x1. DC IV fluids. She was not deemed to be a good surgical candidate. Plan for high risk PCI tomorrow, will likely require Impella. Risks were discussed at length with patient and family. N.p.o. after midnight. Further recommendations pending patient's course. Nurse practitioner note has been reviewed by physician. Signing provider agrees with the documented findings, assessment, and plan of care. Objective - Vital Signs Vital signs: Vital Signs Temp 97.7 F 10/27/23 18:00 Pulse 81 10/27/23 18:00 Resp 18 10/27/23 18:00 BP 163/56 10/27/23 18:00 Pulse Ox 99 10/27/23 18:00 FiO2 Intake & Output 10/27/23 10/27/23 10/28/23 06:59 18:59 06:59 Intake Total 709.298 426.5 Output Total 1200 1550 850 Balance -490.702 -1123.5 -850 Intake: Intake, IV Titration 209.298 72.5 Amount Heparin Sod,Pork in 0.45% 209.298 72.5 NaCl 25,000 unit In 0.45 % NaCl 1 250ml.bag @ 12 UNITS/KG/HR 9.525 mls/hr IV .Q24H [facility] Rx#: [id number] Oral 500 354 Output: Urine 1200 1550 850 Other: Voiding Method External Catheter External Catheter - Labs CBC & Chem 7: 10/26/23 05:50 10/27/23 08:22 Labs: Abnormal Lab Results - Last 24 Hours (Table) 10/26/23 10/26/23 10/27/23 Range/Units 19:50 20:15 06:04 APTT 48.5 H (22.0-30.0) sec BUN (7-17) mg/dL Creatinine (0.52-1.04) mg/dL Glucose (74-99) mg/dL POC Glucose (mg/dL) 217 H 200 H (70-110) mg/dL Calcium (8.4-10.2) mg/dL 10/27/23 10/27/23 10/27/23 Range/Units 08:22 08:22 11:38 APTT 82.9 H (22.0-30.0) sec BUN 27 H (7-17) mg/dL Creatinine 1.51 H (0.52-1.04) mg/dL Glucose 187 H (74-99) mg/dL POC Glucose (mg/dL) 172 H (70-110) mg/dL Calcium 8.1 L (8.4-10.2) mg/dL 10/27/23 10/27/23 Range/Units 16:26 16:33 APTT 61.8 H (22.0-30.0) sec BUN (7-17) mg/dL Creatinine (0.52-1.04) mg/dL Glucose (74-99) mg/dL POC Glucose (mg/dL) 115 H (70-110) mg/dL Calcium (8.4-10.2) mg/dL
[2023-10-27 20:41] LABS: Glucose,Whole Blood 204 mg/dL (70-110)
[2023-10-28] MEDS ORDERED: MORPHINE SULFATE 2 MG/ML SYRINGE IVP STA (00:34)
[2023-10-28] MEDS: METOPROLOL TARTRATE 25 MG TAB PO SCH ×3 (05:30→21:44)
[2023-10-28] MEDS: ATORVASTATIN 40 MG TAB PO SCH (05:30)
[2023-10-28] MEDS: CLOPIDOGREL 75 MG TAB PO SCH (05:30)
[2023-10-28] MEDS: LEVOTHYROXINE 25 MCG TAB PO SCH (05:30)
[2023-10-28] MEDS: ASPIRIN 81 MG PO SCH (05:31)
[2023-10-28] MEDS: TAMSULOSIN 0.4 MG CAP.ER.24H PO SCH (05:31)
[2023-10-28 06:09] LABS: Glucose,Whole Blood 125 mg/dL (70-110)
[2023-10-28] MEDS: VERAPAMIL 40 MG TAB PO SCH ×3 (06:44→21:45)
[2023-10-28] MEDS ORDERED: HEPARIN SODIUM,PORCINE (1 ML) 2,500 UNIT in SODIUM CHLORIDE 0.9% 250 ML IRRIGATION PRN (07:00)
[2023-10-28] MEDS ORDERED: HEPARIN SODIUM,PORCINE 10,000 UNIT in SODIUM CHLORIDE 0.9% 1,000 ML IRRIGATION PRN (07:00)
[2023-10-28 09:09] LABS: Basophils % (A) 0 %; Eosinophils # (A) 0.2 k/uL (0-0.7); Eosinophils % (A) 3 %; HCT 26.9 % (34.0-46.0); HGB 8.6 gm/dL (11.4-16.0); Hypochromasia Slight; Lymphocytes # (A) 0.9 k/uL (1.0-4.8); Lymphocytes % (A) 15 %; MCV 81.3 fL (80.0-100.0); Mean Platelet Volume 7.3; Monocytes # (A) 0.3 k/uL (0-1.0); Monocytes % (A) 5 %; Neutrophils # (A) 4.3 k/uL (1.3-7.7); Neutrophils % (A) 74 %; Platelet Count 290 k/uL (150-450); RBC 3.31 m/uL (3.80-5.40); RDW 14.9 % (11.5-15.5); WBC 5.8 k/uL (3.8-10.6)
[2023-10-28 10:38] LABS: African American GFR (CKD) 39 (>60 ml/min/1.73 sqM); Anion Gap 6 mmol/L; Blood Urea Nitrogen 24 mg/dL (7-17); Calcium 8.2 mg/dL (8.4-10.2); Carbon Dioxide 22 mmol/L (22-30); Chloride 110 mmol/L (98-107); Glucose 99 mg/dL (74-99); Magnesium 1.8 mg/dL (1.6-2.3); Non-African American GFR(CKD) 34 (>60 ml/min/1.73 sqM); Potassium 3.6 mmol/L (3.5-5.1); Sodium 138 mmol/L (137-145)
[2023-10-28 11:17] LABS: Glucose,Whole Blood 108 mg/dL (70-110)
--- NOTE | 2023-10-28 12:19 | P.PN ---
Subjective Progress Note Date: 10/28/23 Hospital Course: 83-year-old female with history of paroxysmal atrial fibrillation on Eliquis, chronic diastolic heart failure, hypertension, dyslipidemia, CKD stage IIIb, hypothyroidism presented with shortness of breath and palpitations on 10/23/2023. On arrival, patient was tachycardic up to 132, rest of the vital signs were within normal limits. EKG showed atrial fibrillation with RVR, with T wave inversions and mild ST depression in lateral leads. Chest x-ray did not show any acute process. Hemoglobin 10.3 around baseline, BMP consistent with CKD stage III, with creatinine of 1.7, Troponin elevated to 1.81. Patient started on heparin drip as well as Cardizem drip. Cardiology consulted. Troponins up trended to 2.08. Negative for A-fib with RVR and NSTEMI. Cardiac cath showed CAD including left main 80% stenosis, mild LAD 60 to 70% stenosis, circumflex 100% stenosis. Cardiothoracic surgery was consulted. Patient is a poor surgical candidate. Patient to get high risk PCI today. Subjective: Patient seen and examined at bedside. No acute events overnight. Still having shortness of breath at rest and with exertion, denies any significant chest pain. Pertinent positives and negatives as discussed above, a complete review of systems was performed and all other systems are negative. Vitals Signs Reviewed. General: Nontoxic, no distress,, appears very frail appears at stated age Derm: Warm, dry Head: Atraumatic, normocephalic, symmetric Eyes: EOMI, no lid lag, anicteric sclera Mouth: No lip lesion, mucus membranes moist Cardiovascular: S1S2 irregular systolic, systolic murmur Lungs: CTA bilateral, no rhonchi, no rales, no accessory muscle use Abdominal: Soft, nontender to palpation, no guarding, no appreciable organomegaly Ext: No gross muscle atrophy, Right lower extremity 2-3+ edema, left lower extremity 1-2+ edema, no contractures Neuro: CN II-XI grossly intact, no focal neuro deficits Psych: Alert, oriented, appropriate affect Data Reviewed Today: Pertinent Labs: Hemoglobin 8.6, creatinine 1.45, glucose range between 99-2 04 Imaging: No new imaging Assessment and Plan: Patient is severely ill, prognosis guarded. Active: NSTEMI Coronary artery disease, multivessel Dyslipidemia Atrial fibrillation with RVR, now rate controlled -Cardiology following, patient continues to be on heparin drip, monitor APTT and bleeding, likely high risk PCI today -aspirin 81 mg, atorvastatin increased to 40 mg daily, also on metoprolol 75 3 times daily -Also started on Plavix 75 mg daily per cardiology Chronic kidney disease stage III Mild normocytic anemia, likely anemia of chronic disease -Renal function improving -Repeat BMP tomorrow -Repeat CBC Hypertension -Continue verapamil 40 3 times daily Hypothyroidism -Continue 25 mcg levothyroxine DVT ppx: Heparin drip Code status: Full code Anticipated discharge place: Pending clinical course Anticipated discharge time: Pending clinical course Objective - Vital Signs Vital signs: Vital Signs Temp 98.0 F 10/28/23 04:00 Pulse 67 10/28/23 08:00 Resp 16 10/28/23 08:00 BP 144/73 10/28/23 08:00 Pulse Ox 97 10/28/23 09:09 FiO2 21 10/28/23 09:09 Intake & Output 10/27/23 10/28/23 10/28/23 18:59 06:59 18:59 Intake Total 426.5 177.5 155.263 Output Total 1550 2350 250 Balance -1123.5 -2172.5 -94.737 Weight 79.379 kg Intake: Intake, IV Titration 72.5 177.5 155.263 Amount Heparin Sod,Pork in 0.45% 72.5 177.5 155.263 NaCl 25,000 unit In 0.45 % NaCl 1 250ml.bag @ 12 UNITS/KG/HR 9.525 mls/hr IV .Q24H [facility], [facility]–1983 Rx#: [id number] Oral 354 Output: Urine 1550 2350 250 Other: Voiding Method External Catheter External Catheter - Labs CBC & Chem 7: 10/28/23 08:33 10/28/23 08:33 Labs: Abnormal Lab Results - Last 24 Hours (Table) 10/27/23 10/27/23 10/27/23 Range/Units 16:26 16:33 20:30 RBC (3.80-5.40) m/uL Hgb (11.4-16.0) gm/dL Hct (34.0-46.0) % Lymphocytes # (1.0-4.8) k/uL APTT 61.8 H (22.0-30.0) sec Chloride (98-107) mmol/L BUN (7-17) mg/dL Creatinine (0.52-1.04) mg/dL POC Glucose (mg/dL) 115 H 204 H (70-110) mg/dL Calcium (8.4-10.2) mg/dL 10/28/23 10/28/23 10/28/23 Range/Units 05:59 08:33 08:33 RBC 3.31 L (3.80-5.40) m/uL Hgb 8.6 L (11.4-16.0) gm/dL Hct 26.9 L (34.0-46.0) % Lymphocytes # 0.9 L (1.0-4.8) k/uL APTT (22.0-30.0) sec Chloride 110 H (98-107) mmol/L BUN 24 H (7-17) mg/dL Creatinine 1.45 H (0.52-1.04) mg/dL POC Glucose (mg/dL) 125 H (70-110) mg/dL Calcium 8.2 L (8.4-10.2) mg/dL 10/28/23 Range/Units 08:33 RBC (3.80-5.40) m/uL Hgb (11.4-16.0) gm/dL Hct (34.0-46.0) % Lymphocytes # (1.0-4.8) k/uL APTT 112.5 H* (22.0-30.0) sec Chloride (98-107) mmol/L BUN (7-17) mg/dL Creatinine (0.52-1.04) mg/dL POC Glucose (mg/dL) (70-110) mg/dL Calcium (8.4-10.2) mg/dL
[2023-10-28] MEDS ORDERED: HEPARIN SODIUM 1,000 UN/ML (10ML VL) ONE (13:32)
[2023-10-28] MEDS ORDERED: LIDOCAINE 1% INJ 10MG/ML (20 ML MDV) ONE (13:32)
[2023-10-28] MEDS ORDERED: fentaNYL (PF) 50 MCG/ML 2 ML AMP ONE (13:55)
[2023-10-28] MEDS ORDERED: MIDAZOLAM 2 MG/2 ML VIAL IVP ONE (13:58)
[2023-10-28] MEDS ORDERED: fentaNYL (PF) 50 MCG/ML 2 ML AMP IVP ONE (13:58)
[2023-10-28] MEDS ORDERED: LIDOCAINE 1% INJ 10MG/ML (20 ML MDV) SQ ONE (14:00)
[2023-10-28] MEDS ORDERED: IV FLUID CONTINUATION 1,000 ML IV ONE (14:01)
[2023-10-28] MEDS: HEPARIN SODIUM 1,000 UN/ML (10ML VL) IV ONE ×4 (14:09→14:46)
[2023-10-28] MEDS ORDERED: NITROGLYCERIN 1000MCG/10ML SYRINGE INTRACORON ONE (14:43)
[2023-10-28] MEDS ORDERED: IOPAMIDOL-370 100ML BTL INJ ONE (15:00)
[2023-10-28 15:32] LABS: Glucose,Whole Blood 103 mg/dL (70-110)
[2023-10-28] MEDS ORDERED: ATROPINE SULFATE 0.1 MG/ML 10ML SYRINGE IV PRN (15:59)
[2023-10-28] MEDS ORDERED: RX INFO: IV CONTRAST WAS GIVEN 1 EACH MISC MISCELLANE PRN (15:59)
[2023-10-28] MEDS ORDERED: ZOLPIDEM 5 MG TAB PO PRN (15:59)
[2023-10-28] MEDS ORDERED: MAG HYDROX/AL HYDROX/SIMETH 30 ML CUP PO PRN (15:59)
[2023-10-28] MEDS ORDERED: SODIUM CHLORIDE 0.9% 1,000 ML in EMPTY BAG 1 BAG IV SCH (16:00)
[2023-10-28] MEDS ORDERED: ACETAMINOPHEN TAB 325 MG TAB PO PRN (16:12)
[2023-10-28] MEDS ORDERED: HYDROcodone/APAP 5-325MG 1 EACH TAB PO PRN (16:47)
--- NOTE | 2023-10-28 22:27 | P.PRCINT ---
Percutaneous Coronary Int. - Percutaneous Coronary Intervention Percutaneous Coronary Intervention: PROCEDURES PERFORMED: Left coronary angiography, ultrasound guided arterial access, Shockwave lithotripsy balloon angioplasty left main into LAD, high risk Impella protected PCI left main into LAD with a 4.0 x 15mm Xience PRANAY, post dilated with a 4.5mm NC balloon, IVUS left main into LAD INDICATION: NSTEMI CONSENT:I have discussed the risks, benefits and alternative therapies for the above-mentioned procedure and for both sedation/analgesia as well as necessary blood product administration, if indicated, as they pertain to this patient. The patient has indicated understanding and acceptance of the risks and p rocedures discussed. PROCEDURE: After the risks, benefits and alternatives of the above mentioned procedure explained in detail with the patient, informed consent was obtained. Patient was taken to the catheterization lab and prepped and draped in usual fashion. Ultrasound guidance was used to assess for arterial access. 1% lidocaine was used to anesthetize the right femoral artery. A 6-Finnish sheath was placed in the right femoral artery using modified Seldinger technique, a micropuncture and ultrasound guidance. Patient had been deemed high risk for bypass and therefore decision was made to perform PCI of left main into the LAD with circumflex artery occluded. Given heavily calcified vessel, need for prolonged inflation, decision was made to use Impella support. Therefore to pre-close Percloses were placed at the 10:00 and 2 o'clock position. Next a 14- Finnish sheath was placed without difficulty or stiff wire. Next a 6-Finnish pigtail catheter was placed in left ventricle and then this was exchanged for the Impella CP. Heparin had been given for ACT greater than 250. The Impella was turned on with cardiac outputs of 3.5 L/m. Decision was made to perform PCI of the left main into the LAD. A 6-Finnish CLS 3.5 guide was used to engage the left main. A 0.014 BMW wire was advanced to the distal LAD. Predilation was performed with a 3.0 x 12 mm balloon. Next intervascular ultrasound was performed which showed diffuse calcified disease. There was a more mid LAD 60-70% stenosis which was heavily calcified involving the takeoff of diagonal branch and given more complex nature and appeared possibly more moderate, decision was made to only perform PCI of the left main. Next shockwave lithotripsy was performed 4 runs with a 4.0 balloon. Predilation was performed with a 4.0 noncompliant balloon. Next a 4.0 x 15 mm Xience PRANAY was placed from the left main into LAD. The circumflex is very been occluded and had collaterals from the RCA and therefore no intervention of the left circumflex was recommended. The proximal and midportion with stent were postdilated with a 4.59 compliant balloon. Final angiograms were performed. Repeat intervascular ultrasound was performed which showed excellent stent apposition with no dissection. Preintervention there is 80% left main stenosis and LU-3 flow and postintervention there was less than 10% stenosis with LU 3 flow. The Impella was weaned and then removed. The 14-Finnish sheath was removed and Percloses tightened. Hemostasis was achieved. The patient tolerated the procedure well. Patient was transported back to the post catheterization holding area in stable condition. Conscious Sedation: Patient was monitored under the direct supervision of myself for conscious sedation using Versed and fentanyl for a total duration of 59 minutes HEMODYNAMICS: Ao: 131/77 LV: 136/10 LVEDP 21 SELECTIVE CORONARY ARTERIOGRAPHY: LEFT MAIN: The left main is a large caliber vessel which bifurcates into the LAD and circumflex. There is a heavily calcified distal left main 80% stenosis LEFT ANTERIOR DESCENDING CORONARY ARTERY: LAD is a large caliber vessel which wraps around to the apex. There is 10-20% proximal LAD stenosis and then diagonal 1 has a 50% ostial stenosis and just after diagonal 1 there is a long calcified 60 is 70% stenosis. LEFT CIRCUMFLEX CORONARY ARTERY: Left circumflex is a moderate caliber vessel with 100% ostial circumflex RIGHT CORONARY ARTERY: The right coronary artery was not imaged FINAL IMPRESSION: 1. CAD as described above including left main 80% stenosis, mid LAD 60-70% stenosis, circumflex 100% stenosis 2. S/p PCI left main into LAD with a 4.0 x 15mm Xience PRANAY, post dilated with a 4.5mm NC balloon PLAN: 1. Aggressive risk factor modification per most recent ACC/AHA guidelines. 2. Continue Plavix and Eliquis for 12 months.
[2023-10-29 00:22] LABS: Glucose,Whole Blood 125 mg/dL (70-110)
[2023-10-29 05:03] LABS: Basophils % (A) 0 %; Eosinophils # (A) 0.1 k/uL (0-0.7); Eosinophils % (A) 2 %; HCT 27.1 % (34.0-46.0); HGB 8.5 gm/dL (11.4-16.0); Hypochromasia Moderate; Lymphocytes # (A) 0.5 k/uL (1.0-4.8); Lymphocytes % (A) 9 %; MCH 25.6 pg (25.0-35.0); MCHC 31.3 g/dL (31.0-37.0); MCV 81.8 fL (80.0-100.0); Mean Platelet Volume 7.6; Monocytes # (A) 0.3 k/uL (0-1.0); Monocytes % (A) 5 %; Neutrophils % (A) 82 %; Platelet Count 338 k/uL (150-450); RBC 3.32 m/uL (3.80-5.40); RDW 14.7 % (11.5-15.5); WBC 6.1 k/uL (3.8-10.6)
[2023-10-29 05:06] LABS: African American GFR (CKD) 38 (>60 ml/min/1.73 sqM); Anion Gap 6 mmol/L; Blood Urea Nitrogen 21 mg/dL (7-17); Calcium 8.3 mg/dL (8.4-10.2); Carbon Dioxide 22 mmol/L (22-30); Chloride 109 mmol/L (98-107); Glucose 107 mg/dL (74-99); Non-African American GFR(CKD) 33 (>60 ml/min/1.73 sqM); Sodium 137 mmol/L (137-145)
[2023-10-29] MEDS: LEVOTHYROXINE 25 MCG TAB PO SCH (06:30)
--- NOTE | 2023-10-29 07:27 | P.PN ---
Subjective HISTORY OF PRESENT ILLNESS: This is a 83-year-old female with a past medical history significant for hypertension, hyperlipidemia, chronic lower extremity edema, and atrial fibrillation. Patient followed in the office with Dr. Gallardo in 2021 but is in the process of changing to Dr. Mosley. She had a recent hospitalization in August 2023 for paroxysmal atrial fibrillation RVR, lower extremities cellulitis, acute heart failure with preserved ejection fraction. We have been asked to evaluate the patient for non-ST elevated [place] and A-fib with RVR. Patient gives history of having elevated blood pressure yesterday that was quite high but upon review of her documentation her numbers do not seem to be accurate. Her blood pressure was 123/113. She states she also had a little difficulty in breathing and this was even with talking. She sometimes has palpitations but mostly shortness of breath. Prior to that for couple days that she had vomiting and diarrhea and that she may have passed out at that time but she is not sure. Vomiting and diarrhea have resolved. Upon arrival to the emergency center, blood pressure was 108/62 with a heart rate of 132 and atrial fibrillation. Blood pressure is now 163/89 heart is running 120. Patient has been started on Cardizem drip and heparin drip. Patient is seen today in the emergency center waiting for a bed on the CSD unit. Patient has not been taking her medications for about 3 weeks. She is in the process of changing PCPs and has not followed up in the office. EKG reveals atrial fibrillation with a heart rate 132. Chest xray no acute process WBC 8.3, hemoglobin 10.3, platelet count 257. INR 1. Sodium 136, potassium 4.2, BUN 37 creatinine 1.7. Troponins 1.81, 1.93, 2.08. Triglycerides 92, cholesterol 100, LDL 46, HDL 35. TSH 4.3. Current home cardiac medications include Eliquis 2.5 mg twice a day, atorvastatin 20 mg daily, Lasix 40 mg daily, Lopressor 75 mg 3 times daily, verapamil 40 mg 3 times daily, also on levothyroxine 25 mcg daily. Most recent echocardiogram obtained in July 2023 revealed ejection fraction 55-60%, mild pulmonary hypertension, and mild to moderate MR Patient underwent Lexiscan stress test in June 2022 revealing abnormal nuclear scan showing ischemia involving inferior lateral wall 10/25 Patient is seen today in follow-up on the cardiac stepdown unit. Patient states that she is feeling pretty good today. She does complain of weakness and difficulty in breathing. Right lower extremity duplex was negative for DVT. Patient was weaned off Cardizem drip yesterday afternoon and remains in atrial fibrillation with rate control. Patient is also on heparin drip. Blood pressure 117/70, heart rate 81, pulse ox 94% on room air. Repeat blood work reveals hemoglobin 9.4, BUN 36, creatinine 1.83, potassium 3.7. Dr. Mcelroy discussed in detail with the patient and her family members about cardiac catheterization which we will reschedule for tomorrow. 10/26 She underwent LHC that revealed CAD as including left main 80% stenosis, mid LAD 60-70% stenosis, circumflex 100% stenosis 10/27 She was evaluated by CT surgery and deemed to be high risk for surgery. She is out of bed in chair. She reports feeling "pretty good" other than not sleeping well. Her swelling is unchanged. 10/29 Patient seen and examined. Patient admits to some reproducible chest pain with pushing on her fourth rib on her right side. She underwent successful Impella protected PCI left main into LAD yesterday. Her right femoral site is stable without any hematoma and no bleeding. She states overall she feels well. Blood pressures been stable. Denies any significant shortness breath. Blood work from this morning hemoglobin 8.5, creatinine 1.48. PHYSICAL EXAM: VITAL SIGNS: Reviewed. GENERAL: Well-developed in no acute distress. HEENT: Head is normocephalic. Pupils are equal, round. Sclerae anicteric. No JVD or thyromegaly LUNGS: Respirations even and unlabored. Lungs essentially clear to auscultation bilaterally. HEART: Irregular rate and rhythm. S1 and S2 heard. Systolic murmur noted. ABDOMEN: Soft. Nondistended. Nontender. EXTREMITIES: No clubbing or cyanosis. Peripheral pulses intact. 1+ right lower extremity edema and trace on left LE. No erythema. NEUROLOGIC: Awake and alert. Oriented x 3. ASSESSMENT: NSTEMI Hypertension, uncontrolled Paroxysmal atrial fibrillation with RVR, currently rate controlled Chronic heart failure with preserved ejection fraction, 55-60% Hypertension Hyperlipidemia Chronic kidney disease Abnormal stress test in June 2022 revealing inferior lateral reversibility Noncompliance with medications CAD including left main 80% stenosis, mid LAD 60-70% stenosis, circumflex 100% stenosis PLAN: Continue Plavix and transition to Eliquis to be intiated tonight with no significant bleeding from her femoral site. Continue the remainder of current regimen. Creatinine appears stable. Likely d ischarge home later today versus tomorrow. Objective - Vital Signs Vital signs: Vital Signs Temp 97.8 F 10/29/23 04:00 Pulse 87 10/29/23 05:00 Resp 13 10/29/23 05:00 BP 140/59 10/29/23 05:00 Pulse Ox 94 L 10/29/23 05:00 FiO2 21 10/28/23 09:09 Intake & Output 10/28/23 10/29/23 10/29/23 18:59 06:59 18:59 Intake Total 466.369 3056 Output Total 550 1330 Balance 405.263 85 Weight 79.379 kg 68.6 kg Intake: IV 300 600 Sodium Chloride 0.9% 1, 100 600 000 ml In Empty Bag 1 bag @ 100 mls/hr IV .Q10H [facility] Rx#:[id number] Intake, IV Titration 355.263 Amount Heparin Sod,Pork in 0.45% 155.263 NaCl 25,000 unit In 0.45 % NaCl 1 250ml.bag @ 12 UNITS/KG/HR 9.525 mls/hr IV .Q24H [facility] Rx#: [id number] Sodium Chloride 0.9% 1, 200 000 ml In Empty Bag 1 bag @ 100 mls/hr IV .Q10H [facility] Rx#:[id number] Oral 300 815 Output: Urine 550 1330 Other: Voiding Method External Catheter External Catheter # Voids 1 - Labs CBC & Chem 7: 10/29/23 04:15 10/29/23 04:15 Labs: Abnormal Lab Results - Last 24 Hours (Table) 10/28/23 10/28/23 10/28/23 Range/Units 08:33 08:33 08:33 RBC 3.31 L (3.80-5.40) m/uL Hgb 8.6 L (11.4-16.0) gm/dL Hct 26.9 L (34.0-46.0) % Lymphocytes # 0.9 L (1.0-4.8) k/uL APTT 112.5 H* (22.0-30.0) sec Chloride 110 H (98-107) mmol/L BUN 24 H (7-17) mg/dL Creatinine 1.45 H (0.52-1.04) mg/dL Glucose (74-99) mg/dL POC Glucose (mg/dL) (70-110) mg/dL Calcium 8.2 L (8.4-10.2) mg/dL 10/29/23 10/29/23 10/29/23 Range/Units 00:19 04:15 04:15 RBC 3.32 L (3.80-5.40) m/uL Hgb 8.5 L (11.4-16.0) gm/dL Hct 27.1 L (34.0-46.0) % Lymphocytes # 0.5 L (1.0-4.8) k/uL APTT (22.0-30.0) sec Chloride 109 H (98-107) mmol/L BUN 21 H (7-17) mg/dL Creatinine 1.48 H (0.52-1.04) mg/dL Glucose 107 H (74-99) mg/dL POC Glucose (mg/dL) 125 H (70-110) mg/dL Calcium 8.3 L (8.4-10.2) mg/dL
[2023-10-29] MEDS: METOPROLOL TARTRATE 25 MG TAB PO SCH ×2 (10:03→16:34)
[2023-10-29] MEDS: ASPIRIN 81 MG PO SCH (10:03)
[2023-10-29] MEDS: ATORVASTATIN 40 MG TAB PO SCH (10:04)
[2023-10-29] MEDS: CLOPIDOGREL 75 MG TAB PO SCH (10:04)
[2023-10-29] MEDS: TAMSULOSIN 0.4 MG CAP.ER.24H PO SCH (10:04)
[2023-10-29] MEDS: VERAPAMIL 40 MG TAB PO SCH ×3 (10:29→21:53)
--- NOTE | 2023-10-29 11:12 | P.PN ---
Subjective Progress Note Date: 10/29/23 Hospital Course: 83-year-old female with history of paroxysmal atrial fibrillation on Eliquis, chronic diastolic heart failure, hypertension, dyslipidemia, CKD stage IIIb, hypothyroidism presented with shortness of breath and palpitations on 10/23/2023. On arrival, patient was tachycardic up to 132, rest of the vital signs were within normal limits. EKG showed atrial fibrillation with RVR, with T wave inversions and mild ST depression in lateral leads. Chest x-ray did not show any acute process. Hemoglobin 10.3 around baseline, BMP consistent with CKD stage III, with creatinine of 1.7, Troponin elevated to 1.81. Patient started on heparin drip as well as Cardizem drip. Cardiology consulted. Troponins up trended to 2.08. Negative for A-fib with RVR and NSTEMI. Cardiac cath showed CAD including left main 80% stenosis, mild LAD 60 to 70% stenosis, circumflex 100% stenosis. Cardiothoracic surgery was consulted. Patient is a poor surgical candidate. Patient underwent high risk PCI, now status post PCI left main into LAD with PRANAY, started on Plavix and Eliquis. Subjective: Patient seen and examined at bedside. No acute events overnight. No new complaints Pertinent positives and negatives as discussed above, a complete review of systems was performed and all other systems are negative. Vitals Signs Reviewed. General: Nontoxic, no distress,, appears very frail appears at stated age Derm: Warm, dry Head: Atraumatic, normocephalic, symmetric Eyes: EOMI, no lid lag, anicteric sclera Mouth: No lip lesion, mucus membranes moist Cardiovascular: S1S2 irregular systolic, systolic murmur Lungs: CTA bilateral, no rhonchi, no rales, no accessory muscle use Abdominal: Soft, nontender to palpation, no guarding, no appreciable organomegaly Ext: No gross muscle atrophy, Right lower extremity 2-3+ edema, left lower extremity 1-2+ edema, no contractures Neuro: CN II-XI grossly intact, no focal neuro deficits Psych: Alert, oriented, appropriate affect Data Reviewed Today: Pertinent Labs: Hemoglobin 8.5, creatinine 1.48, blood sugars range between 10 3-1 25 Imaging: EKG independently interpreted from this morning, shows atrial fibrillation with rate control Assessment and Plan: Patient remains in medical ICU, needs close monitoring. Active: NSTEMI Coronary artery disease, multivessel Dyslipidemia Atrial fibrillation with RVR, now rate controlled Hypertension -Cardiology note reviewed, continue Eliquis 2.5 mg twice daily, aspirin 81 mg daily, Plavix 75 mg daily, atorvastatin 40 mg daily -Continue metoprolol 75 mg 3 times daily, verapamil 40 mg 3 times daily Chronic kidney disease stage III Mild normocytic anemia, likely anemia of chronic disease -Renal function improving -Repeat BMP tomorrow -Repeat CBC Hypothyroidism -Continue 25 mcg levothyroxine DVT ppx: Eliquis Code status: Full code Anticipated discharge place: Home Anticipated discharge time: Likely tomorrow Objective - Vital Signs Vital signs: Vital Signs Temp 98.0 F 10/29/23 08:00 Pulse 92 10/29/23 10:00 Resp 12 10/29/23 10:00 BP 138/70 10/29/23 08:00 Pulse Ox 96 10/29/23 08:34 FiO2 21 10/28/23 09:09 Intake & Output 10/28/23 10/29/23 10/29/23 18:59 06:59 18:59 Intake Total 538.996 7194 Output Total 550 1330 300 Balance 405.263 85 -300 Weight 79.379 kg 68.6 kg Intake: IV 300 600 Sodium Chloride 0.9% 1, 100 600 000 ml In Empty Bag 1 bag @ 100 mls/hr IV .Q10H [facility] Rx#:[id number] Intake, IV Titration 355.263 Amount Heparin Sod,Pork in 0.45% 155.263 NaCl 25,000 unit In 0.45 % NaCl 1 250ml.bag @ 12 UNITS/KG/HR 9.525 mls/hr IV .Q24H [facility] Rx#: [id number] Sodium Chloride 0.9% 1, 200 000 ml In Empty Bag 1 bag @ 100 mls/hr IV .Q10H [facility] Rx#:[id number] Oral 300 815 Output: Urine 550 1330 300 Other: Voiding Method External Catheter External Catheter External Catheter # Voids 1 - Labs CBC & Chem 7: 10/29/23 04:15 10/29/23 04:15 Labs: Abnormal Lab Results - Last 24 Hours (Table) 10/29/23 10/29/23 10/29/23 Range/Units 00:19 04:15 04:15 RBC 3.32 L (3.80-5.40) m/uL Hgb 8.5 L (11.4-16.0) gm/dL Hct 27.1 L (34.0-46.0) % Lymphocytes # 0.5 L (1.0-4.8) k/uL Chloride 109 H (98-107) mmol/L BUN 21 H (7-17) mg/dL Creatinine 1.48 H (0.52-1.04) mg/dL Glucose 107 H (74-99) mg/dL POC Glucose (mg/dL) 125 H (70-110) mg/dL Calcium 8.3 L (8.4-10.2) mg/dL
[2023-10-29 11:59] VITALS: BMI 29.5
[2023-10-29] MEDS: APIXABAN 2.5 MG TABLET PO SCH (18:19)
[2023-10-29] MEDS: METOPROLOL TARTRATE 50 MG TAB PO SCH (21:53)
[2023-10-30] MEDS: LEVOTHYROXINE 25 MCG TAB PO SCH (06:56)
[2023-10-30] MEDS: TAMSULOSIN 0.4 MG CAP.ER.24H PO SCH ×2 (08:55→09:06)
[2023-10-30] MEDS: ATORVASTATIN 40 MG TAB PO SCH (08:55)
[2023-10-30] MEDS: APIXABAN 2.5 MG TABLET PO SCH ×2 (08:55→20:56)
[2023-10-30] MEDS: ASPIRIN 81 MG PO SCH (08:55)
[2023-10-30] MEDS: METOPROLOL TARTRATE 50 MG TAB PO SCH ×3 (08:55→20:56)
[2023-10-30] MEDS: CLOPIDOGREL 75 MG TAB PO SCH (08:55)
[2023-10-30] MEDS: VERAPAMIL 40 MG TAB PO SCH ×3 (09:06→20:57)
[2023-10-30 09:48] LABS: African American GFR (CKD) 34 (>60 ml/min/1.73 sqM); Anion Gap 7 mmol/L; Blood Urea Nitrogen 25 mg/dL (7-17); Calcium 8.6 mg/dL (8.4-10.2); Carbon Dioxide 22 mmol/L (22-30); Chloride 108 mmol/L (98-107); Glucose 155 mg/dL (74-99); Magnesium 1.9 mg/dL (1.6-2.3); Non-African American GFR(CKD) 29 (>60 ml/min/1.73 sqM); Potassium 4.1 mmol/L (3.5-5.1); Sodium 137 mmol/L (137-145)
--- NOTE | 2023-10-30 10:03 | P.PN ---
Subjective Progress Note Date: 10/30/23 Hospital Course: 83-year-old female with history of paroxysmal atrial fibrillation on Eliquis, chronic diastolic heart failure, hypertension, dyslipidemia, CKD stage IIIb, hypothyroidism presented with shortness of breath and palpitations on 10/23/2023. On arrival, patient was tachycardic up to 132, rest of the vital signs were within normal limits. EKG showed atrial fibrillation with RVR, with T wave inversions and mild ST depression in lateral leads. Chest x-ray did not show any acute process. Hemoglobin 10.3 around baseline, BMP consistent with CKD stage III, with creatinine of 1.7, Troponin elevated to 1.81. Patient started on heparin drip as well as Cardizem drip. Cardiology consulted. Troponins up trended to 2.08. Negative for A-fib with RVR and NSTEMI. Cardiac cath showed CAD including left main 80% stenosis, mild LAD 60 to 70% stenosis, circumflex 100% stenosis. Cardiothoracic surgery was consulted. Patient is a poor surgical candidate. Patient underwent high risk PCI, now status post PCI left main into LAD with PRANAY, started on Plavix and Eliquis. Subjective: Patient seen and examined at bedside. No acute events overnight. Patient is extremely weak. Requires assistance getting out of the bed. Pertinent positives and negatives as discussed above, a complete review of systems was performed and all other systems are negative. Vitals Signs Reviewed. General: Nontoxic, no distress,, appears very frail appears at stated age Derm: Warm, dry Head: Atraumatic, normocephalic, symmetric Eyes: EOMI, no lid lag, anicteric sclera Mouth: No lip lesion, mucus membranes moist Cardiovascular: S1S2 irregular systolic, systolic murmur Lungs: CTA bilateral, no rhonchi, no rales, no accessory muscle use Abdominal: Soft, nontender to palpation, no guarding, no appreciable organomegaly Ext: No gross muscle atrophy, Right lower extremity 2-3+ edema, left lower extremity 1-2+ edema, no contractures Neuro: CN II-XI grossly intact, no focal neuro deficits Psych: Alert, oriented, appropriate affect Data Reviewed Today: Pertinent Labs: Potassium 4.1, creatinine 1.64, magnesium 1.9 Imaging: EKG independently interpreted from this morning, shows atrial fibrillation with rate control Assessment and Plan: Active: NSTEMI Coronary artery disease, multivessel Dyslipidemia Atrial fibrillation with RVR, now rate controlled Hypertension -Cardiology following, continue Eliquis 2.5 mg twice daily, aspirin 81 mg daily, Plavix 75 mg daily, atorvastatin 40 mg daily -Continue metoprolol 75 mg 3 times daily, verapamil 40 mg 3 times daily Chronic kidney disease stage III Mild normocytic anemia, likely anemia of chronic disease -Renal function stable Hypothyroidism -Continue 25 mcg levothyroxine DVT ppx: Eliquis Code status: Full code Anticipated discharge place: Home versus subacute rehab Anticipated discharge time: Pending PT evaluation Objective - Vital Signs Vital signs: Vital Signs Temp 98.2 F 10/30/23 08:00 Pulse 92 10/30/23 08:00 Resp 19 10/30/23 08:00 BP 128/81 10/30/23 08:00 Pulse Ox 100 10/30/23 08:00 FiO2 21 10/28/23 09:09 Intake & Output 10/29/23 10/30/23 10/30/23 18:59 06:59 18:59 Intake Total 500 Output Total 750 1801 Balance -750 -1801 500 Weight 68.6 kg Intake: Oral 500 Output: Urine 750 1800 Stool 1 Other: Voiding Method External Catheter - Labs CBC & Chem 7: 10/29/23 04:15 10/30/23 08:51 Labs: Abnormal Lab Results - Last 24 Hours (Table) 10/30/23 Range/Units 08:51 Chloride 108 H (98-107) mmol/L BUN 25 H (7-17) mg/dL Creatinine 1.64 H (0.52-1.04) mg/dL Glucose 155 H (74-99) mg/dL
--- NOTE | 2023-10-30 10:07 | P.PN ---
Subjective HISTORY OF PRESENT ILLNESS: This is a 83-year-old female with a past medical history significant for hypertension, hyperlipidemia, chronic lower extremity edema, and atrial fibrillation. Patient followed in the office with Dr. Gallardo in 2021 but is in the process of changing to Dr. Mosley. She had a recent hospitalization in August 2023 for paroxysmal atrial fibrillation RVR, lower extremities cellulitis, acute heart failure with preserved ejection fraction. We have been asked to evaluate the patient for non-ST elevated MD and A-fib with RVR. Patient gives history of having elevated blood pressure yesterday that was quite high but upon review of her documentation her numbers do not seem to be accurate. Her blood pressure was 123/113. She states she also had a little difficulty in breathing and this was even with talking. She sometimes has palpitations but mostly shortness of breath. Prior to that for couple days that she had vomiting and diarrhea and that she may have passed out at that time but she is not sure. Vomiting and diarrhea have resolved. Upon arrival to the emergency center, blood pressure was 108/62 with a heart rate of 132 and atrial fibrillation. Blood pressure is now 163/89 heart is running 120. Patient has been started on Cardizem drip and heparin drip. Patient is seen today in the emergency center waiting for a bed on the CSD unit. Patient has not been taking her medications for about 3 weeks. She is in the process of changing PCPs and has not followed up in the office. EKG reveals atrial fibrillation with a heart rate 132. Chest xray no acute process WBC 8.3, hemoglobin 10.3, platelet count 257. INR 1. Sodium 136, potassium 4.2, BUN 37 creatinine 1.7. Troponins 1.81, 1.93, 2.08. Triglycerides 92, cholesterol 100, LDL 46, HDL 35. TSH 4.3. Current home cardiac medications include Eliquis 2.5 mg twice a day, atorvastatin 20 mg daily, Lasix 40 mg daily, Lopressor 75 mg 3 times daily, verapamil 40 mg 3 times daily, also on levothyroxine 25 mcg daily. Most recent echocardiogram obtained in July 2023 revealed ejection fraction 55-60%, mild pulmonary hypertension, and mild to moderate MR Patient underwent Lexiscan stress test in June 2022 revealing abnormal nuclear scan showing ischemia involving inferior lateral wall 10/25 Patient is seen today in follow-up on the cardiac stepdown unit. Patient states that she is feeling pretty good today. She does complain of weakness and difficulty in breathing. Right lower extremity duplex was negative for DVT. Patient was weaned off Cardizem drip yesterday afternoon and remains in atrial fibrillation with rate control. Patient is also on heparin drip. Blood pressure 117/70, heart rate 81, pulse ox 94% on room air. Repeat blood work reveals hemoglobin 9.4, BUN 36, creatinine 1.83, potassium 3.7. Dr. Mcelroy discussed in detail with the patient and her family members about cardiac catheterization which we will reschedule for tomorrow. 10/26 She underwent LHC that revealed CAD as including left main 80% stenosis, mid LAD 60-70% stenosis, circumflex 100% stenosis 10/27 She was evaluated by CT surgery and deemed to be high risk for surgery. She is out of bed in chair. She reports feeling "pretty good" other than not sleeping well. Her swelling is unchanged. 10/29 Patient seen and examined. Patient admits to some reproducible chest pain with pushing on her fourth rib on her right side. She underwent successful Impella protected PCI left main into LAD yesterday. Her right femoral site is stable without any hematoma and no bleeding. She states overall she feels well. Blood pressures been stable. Denies any significant shortness breath. Blood work from this morning hemoglobin 8.5, creatinine 1.48. 10/30 Patient seen and examined. She remains in A. fib with controlled ventricular rates. Blood pressure is well controlled. Does have a small scratch on her right ulnar site however no significant hematoma. Creatinine mildly increased up to 1.6 today. Denies any shortness breath. PHYSICAL EXAM: VITAL SIGNS: Reviewed. GENERAL: Well-developed in no acute distress. HEENT: Head is normocephalic. Pupils are equal, round. Sclerae anicteric. No JVD or thyromegaly LUNGS: Respirations even and unlabored. Lungs essentially clear to auscultation bilaterally. HEART: Irregular rate and rhythm. S1 and S2 heard. Systolic murmur noted. ABDOMEN: Soft. Nondistended. Nontender. EXTREMITIES: No clubbing or cyanosis. Peripheral pulses intact. 1+ right lower extremity edema and trace on left LE. No erythema. NEUROLOGIC: Awake and alert. Oriented x 3. ASSESSMENT: NSTEMI Hypertension, uncontrolled Paroxysmal atrial fibrillation with RVR, currently rate controlled Chronic heart failure with preserved ejection fraction, 55-60% Hypertension Hyperlipidemia Chronic kidney disease Abnormal stress test in June 2022 revealing inferior lateral reversibility Noncompliance with medications CAD including left main 80% stenosis, mid LAD 60-70% stenosis, circumflex 100% stenosis PLAN: Continue Plavix and transition to Eliquis to be intiated tonight with no significant bleeding from her femoral site. Continue the remainder of current regimen. Monitor creatinine Appears fairly frail and likely will need rehab Restart home Lasix, maintenance tomorrow Objective - Vital Signs Vital signs: Vital Signs Temp 98.2 F 10/30/23 08:00 Pulse 92 10/30/23 08:00 Resp 19 10/30/23 08:00 BP 128/81 10/30/23 08:00 Pulse Ox 100 10/30/23 08:00 FiO2 21 10/28/23 09:09 Intake & Output 10/29/23 10/30/23 10/30/23 18:59 06:59 18:59 Intake Total 500 Output Total 750 1801 Balance -750 -1801 500 Weight 68.6 kg Intake: Oral 500 Output: Urine 750 1800 Stool 1 Other: Voiding Method External Catheter - Labs CBC & Chem 7: 10/29/23 04:15 10/30/23 08:51 Labs: Abnormal Lab Results - Last 24 Hours (Table) 10/30/23 Range/Units 08:51 Chloride 108 H (98-107) mmol/L BUN 25 H (7-17) mg/dL Creatinine 1.64 H (0.52-1.04) mg/dL Glucose 155 H (74-99) mg/dL
[2023-10-31] MEDS: LEVOTHYROXINE 25 MCG TAB PO SCH (06:46)
[2023-10-31] MEDS ORDERED: FUROSEMIDE 40 MG TAB PO SCH (09:00)
[2023-10-31 09:47] LABS: African American GFR (CKD) 34 (>60 ml/min/1.73 sqM); Anion Gap 8 mmol/L; Blood Urea Nitrogen 26 mg/dL (7-17); Calcium 8.5 mg/dL (8.4-10.2); Carbon Dioxide 23 mmol/L (22-30); Chloride 107 mmol/L (98-107); Glucose 197 mg/dL (74-99); Magnesium 1.8 mg/dL (1.6-2.3); Non-African American GFR(CKD) 29 (>60 ml/min/1.73 sqM); Potassium 4.2 mmol/L (3.5-5.1); Sodium 138 mmol/L (137-145)
[2023-10-31] MEDS: CLOPIDOGREL 75 MG TAB PO SCH (10:06)
[2023-10-31] MEDS: METOPROLOL TARTRATE 25 MG TAB PO SCH ×2 (10:06→16:15)
[2023-10-31] MEDS: APIXABAN 2.5 MG TABLET PO SCH (10:06)
[2023-10-31] MEDS: ASPIRIN 81 MG PO SCH (10:07)
[2023-10-31] MEDS: ATORVASTATIN 40 MG TAB PO SCH (10:07)
[2023-10-31] MEDS: VERAPAMIL 40 MG TAB PO SCH ×2 (10:07→16:17)
--- NOTE | 2023-10-31 10:15 | P.PN ---
Subjective Progress Note Date: 10/31/23 Hospital Course: 83-year-old female with history of paroxysmal atrial fibrillation on Eliquis, chronic diastolic heart failure, hypertension, dyslipidemia, CKD stage IIIb, hypothyroidism presented with shortness of breath and palpitations on 10/23/2023. On arrival, patient was tachycardic up to 132, rest of the vital signs were within normal limits. EKG showed atrial fibrillation with RVR, with T wave inversions and mild ST depression in lateral leads. Chest x-ray did not show any acute process. Hemoglobin 10.3 around baseline, BMP consistent with CKD stage III, with creatinine of 1.7, Troponin elevated to 1.81. Patient started on heparin drip as well as Cardizem drip. Cardiology consulted. Troponins up trended to 2.08. Negative for A-fib with RVR and NSTEMI. Cardiac cath showed CAD including left main 80% stenosis, mild LAD 60 to 70% stenosis, circumflex 100% stenosis. Cardiothoracic surgery was consulted. Patient is a poor surgical candidate. Patient underwent high risk PCI, now status post PCI left main into LAD with PRANAY, started on Plavix and Eliquis. Patient pending subacute rehab. Subjective: Patient seen and examined at bedside. No acute events overnight. Patient is extremely weak. Requires assistance getting out of the bed. Pertinent positives and negatives as discussed above, a complete review of systems was performed and all other systems are negative. Vitals Signs Reviewed. General: Nontoxic, no distress,, appears very frail appears at stated age Derm: Warm, dry Head: Atraumatic, normocephalic, symmetric Eyes: EOMI, no lid lag, anicteric sclera Mouth: No lip lesion, mucus membranes moist Cardiovascular: S1S2 irregular systolic, systolic murmur Lungs: CTA bilateral, no rhonchi, no rales, no accessory muscle use Abdominal: Soft, nontender to palpation, no guarding, no appreciable organomegaly Ext: No gross muscle atrophy, trace lower extremity edema, no contractures Neuro: CN II-XI grossly intact, no focal neuro deficits Psych: Alert, oriented, appropriate affect Data Reviewed Today: Pertinent Labs: Potassium 4.2, creatinine 1.64, magnesium 1.8 Imaging: No new imaging Assessment and Plan: Active: NSTEMI Coronary artery disease, multivessel Dyslipidemia Atrial fibrillation with RVR, now rate controlled Hypertension -Cardiology following, continue Eliquis 2.5 mg twice daily, aspirin 81 mg daily, Plavix 75 mg daily, atorvastatin 40 mg daily -Continue metoprolol 75 mg 3 times daily, verapamil 40 mg 3 times daily -Also on Lasix 40 mg daily oral Chronic kidney disease stage III Mild normocytic anemia, likely anemia of chronic disease -Renal function stable Hypothyroidism -Continue 25 mcg levothyroxine DVT ppx: Eliquis Code status: Full code Anticipated discharge place: Subacute rehab Anticipated discharge time: Pending bed availability Objective - Vital Signs Vital signs: Vital Signs Temp 98.2 F 10/31/23 04:00 Pulse 69 10/31/23 06:00 Resp 12 10/31/23 06:00 BP 145/71 10/31/23 04:00 Pulse Ox 96 10/31/23 08:55 FiO2 21 10/28/23 09:09 Intake & Output 10/30/23 10/31/23 10/31/23 18:59 06:59 18:59 Intake Total 900 1220 Output Total 950 1750 Balance -50 -530 Intake: Oral 900 1220 Output: Urine 950 1750 Other: Voiding Method External Catheter External Catheter - Labs CBC & Chem 7: 10/29/23 04:15 10/31/23 08:38 Labs: Abnormal Lab Results - Last 24 Hours (Table) 10/31/23 Range/Units 08:38 BUN 26 H (7-17) mg/dL Creatinine 1.64 H (0.52-1.04) mg/dL Glucose 197 H (74-99) mg/dL
[2023-10-31] MEDS: TAMSULOSIN 0.4 MG CAP.ER.24H PO SCH (10:21)
[2023-10-31 10:46] VITALS: TEMP 98.3
--- NOTE | 2023-10-31 11:00 | PN ---
PROGRESS NOTE SUBJECTIVE: Martín Alcaraz is an 83-year-old lady with history of hypertension, hyperlipidemia, chronic lower extremity edema, and atrial fibrillation. Her ejection fraction is fairly well preserved. She had an abnormal stress test. Cardiac cath revealed a significant disease involving the left main and LAD. She underwent Impella protected PCI of left main into the LAD. She has done well since then. Complains of generalized weakness. She is in atrial fib, rate is reasonably well controlled. I am going to increase the metoprolol tartrate to 75 mg t.i.d. from 50 mg t.i.d. We will increase activity and see how she does. Hopefully, if she increases activity and does well, she may be discharged in the next 24 to 48 hours. She is on apixaban 2.5 mg b.i.d., aspirin 81 mg daily, and Plavix 75. We will continue the same and eventually keep her on aspirin and Eliquis. Plan is to increase activity and increase beta-nereyda. OBJECTIVE: VITAL SIGNS: Vitals are stable. HEART: S1 and S2 heard normally. Irregular rhythm noted. Short systolic murmur noted. LUNGS: Reveal fair air entry. ABDOMEN: Soft. EXTREMITIES: Lower extremities and right groin are stable. PLAN: We will increase beta-nereyda, activity, and see how she does. MMODL / IJN: [id number] /
--- NOTE | 2023-10-31 15:38 | P.DS ---
Providers Date of admission: 10/23/23 21:51 Expected date of discharge: 10/31/23 Attending physician: Lo Orellana MD Consults: 10/23/23 21:51 Consult Physician Urgent Consulting Provider: Nilton Gallardo Consult Reason/Comments: NSTEMI. Atrial fib with RVR Do you want consulting provider notified?: Already Contacted 10/26/23 08:27 Consult Physician Routine Consulting Provider: Jeffery Wood Consult Reason/Comments: re: CABG eval Do you want consulting provider notified?: Already Contacted 10/28/23 15:59 Consult Physician Routine Consulting Provider: [facility] Consult Reason/Comments: Post Interventional Patient Do you want consulting provider notified?: Already Contacted Primary care physician: Stated None Hospital Course: Discharge Diagnosis: NSTEMI Coronary artery disease, multivessel status post stent Dyslipidemia Atrial fibrillation with RVR, now rate controlled Hypertension Chronic kidney disease stage III Mild normocytic anemia, likely anemia of chronic disease Hypothyroidism Hospital Course: 83-year-old female with history of paroxysmal atrial fibrillation on Eliquis, chronic diastolic heart failure, hypertension, dyslipidemia, CKD stage IIIb, hypothyroidism presented with shortness of breath and palpitations on 10/23/2023. On arrival, patient was tachycardic up to 132, rest of the vital signs were within normal limits. EKG showed atrial fibrillation with RVR, with T wave inversions and mild ST depression in lateral leads. Chest x-ray did not show any acute process. Hemoglobin 10.3 around baseline, BMP consistent with CKD stage III, with creatinine of 1.7, Troponin elevated to 1.81. Patient started on heparin drip as well as Cardizem drip. Cardiology consulted. Troponins up trended to 2.08. Admitted for A-fib with RVR and NSTEMI. Cardiac cath showed CAD including left main 80% stenosis, mild LAD 60 to 70% stenosis, circumflex 100% stenosis. Cardiothoracic surgery was consulted. Patient is a poor surgic al candidate. Patient underwent high risk PCI, now status post PCI left main into LAD with PRANAY, started on Plavix and Eliquis. Being discharged to rehab. Patient seen and examined at bedside. Vital signs reviewed and stable. General: Nontoxic, no distress,, appears very frail appears at stated age Derm: Warm, dry Head: Atraumatic, normocephalic, symmetric Eyes: EOMI, no lid lag, anicteric sclera Mouth: No lip lesion, mucus membranes moist Cardiovascular: S1S2 irregular systolic, systolic murmur Lungs: CTA bilateral, no rhonchi, no rales, no accessory muscle use Abdominal: Soft, nontender to palpation, no guarding, no appreciable organomegaly Ext: No gross muscle atrophy, trace lower extremity edema, no contractures Neuro: CN II-XI grossly intact, no focal neuro deficits Psych: Alert, oriented, appropriate affect A total of 33 minutes of time were spent preparing this complex discharge summary. Patient was discharged on 10/31/23 at 1537. Patient Condition at Discharge: Stable Plan - Discharge Summary Discharge Rx Participant: No New Discharge Prescriptions: New Aspirin 81 mg PO DAILY tab Acetaminophen Tab [Tylenol] 650 mg PO Q4HR PRN tab PRN Reason: Fever And/ Or Pain Apixaban [Eliquis] 2.5 mg PO BID #0 tab Clopidogrel [Plavix] 75 mg PO DAILY tab Continue Levothyroxine Sodium 25 mcg PO DAILY Furosemide [Lasix] 40 mg PO DAILY #30 tab Verapamil [Isoptin] 40 mg PO TID #90 tab Psyllium Husk [Fiber Capsule] 3.2 gm PO BID Atorvastatin [Lipitor] 20 mg PO DAILY #30 tab Tamsulosin [Flomax] 0.4 mg PO PC-BRKFST #30 cap Metoprolol Tartrate [Lopressor] 75 mg PO TID #90 tab Discontinued Apixaban [Eliquis] 2.5 mg PO BID 30 Days #60 tab Loperamide [Imodium] 2 mg PO QID cap Discharge Medication List Levothyroxine Sodium 25 mcg PO DAILY 06/28/22 [History] Psyllium Husk [Fiber Capsule] 3.2 gm PO BID 08/18/23 [History] Atorvastatin [Lipitor] 20 mg PO DAILY #30 tab 09/10/23 [Rx] Furosemide [Lasix] 40 mg PO DAILY #30 tab 09/10/23 [Rx] Metoprolol Tartrate [Lopressor] 75 mg PO TID #90 tab 09/13/23 [Rx] Tamsulosin [Flomax] 0.4 mg PO PC-BRKFST #30 cap 09/13/23 [Rx] Verapamil [Isoptin] 40 mg PO TID #90 tab 09/13/23 [Rx] Acetaminophen Tab [Tylenol] 650 mg PO Q4HR PRN tab 10/31/23 [Rx] Apixaban [Eliquis] 2.5 mg PO BID #0 tab 10/31/23 [Rx] Aspirin 81 mg PO DAILY tab 10/31/23 [Rx] Clopidogrel [Plavix] 75 mg PO DAILY tab 10/31/23 [Rx] Follow up Appointment(s)/Referral(s): Antoni Trimble III, MD [STAFF PHYSICIAN] - 11/02/23 9:45 am James Mosley DO [STAFF PHYSICIAN] - 1 Week Patient Instructions/Handouts: Heart Attack (DC), A-fib (Atrial Fibrillation) (DC) Activity/Diet/Wound Care/Special Instructions: Appointment with Dr. Trimble - Nov 02 - @1000 arrive at [phone] [phone] Discharge Disposition: TRANSFER TO SNF/ECF
[2023-10-31 16:32] VITALS: BP 140/93; PULSE 82; RESP 23
== END 2023-10-31 18:00 | DRG 217 ==
LOC: EC 18:54 → 3SCARD 21:51 → 2SICU 10-28 15:04
PROVIDERS: ADMIT Internal Medicine; ATTEND Internal Medicine
PROC: B2111ZZ Fluoroscopy of Multiple Coronary Arteries using Low Osmolar Contrast (ICD-10-PCS; 2023-10-26)
PROC: 4A023N7 Measurement of Cardiac Sampling and Pressure, Left Heart, Percutaneous Approach (ICD-10-PCS; 2023-10-26 08:25)
PROC: B240ZZ3 Ultrasonography of Single Coronary Artery, Intravascular (ICD-10-PCS; 2023-10-28)
PROC: 02HA3RJ Insertion of Short-term External Heart Assist System into Heart, Intraoperative, Percutaneous Approach (ICD-10-PCS; principal; 2023-10-28 09:00)
PROC: 5A0221D Assistance with Cardiac Output using Impeller Pump, Continuous (ICD-10-PCS; 2023-10-28 09:00)
PROC: 027034Z Dilation of Coronary Artery, One Artery with Drug-eluting Intraluminal Device, Percutaneous Approach (ICD-10-PCS; 2023-10-28 09:00)
PROC: 02F03ZZ Fragmentation in Coronary Artery, One Artery, Percutaneous Approach (ICD-10-PCS; 2023-10-28 09:00)
DX: I21.4 Non-ST elevation (NSTEMI) myocardial infarction (principal); I13.0 Hypertensive heart and chronic kidney disease with heart failure and stage 1 through stage 4 chronic kidney disease, or unspecified chronic kidney disease; I50.32 Chronic diastolic (congestive) heart failure; D63.1 Anemia in chronic kidney disease; I27.20 Pulmonary hypertension, unspecified; E11.22 Type 2 diabetes mellitus with diabetic chronic kidney disease; R54 Age-related physical debility; D50.9 Iron deficiency anemia, unspecified; E03.9 Hypothyroidism, unspecified; J45.909 Unspecified asthma, uncomplicated; I08.1 Rheumatic disorders of both mitral and tricuspid valves; N18.32 Chronic kidney disease, stage 3b; I25.119 Atherosclerotic heart disease of native coronary artery with unspecified angina pectoris; E78.5 Hyperlipidemia, unspecified; I48.0 Paroxysmal atrial fibrillation; K58.9 Irritable bowel syndrome, unspecified; T50.916A Underdosing of multiple unspecified drugs, medicaments and biological substances, initial encounter; R32 Unspecified urinary incontinence; Z91.148 Patient's other noncompliance with medication regimen for other reason; Z79.01 Long term (current) use of anticoagulants; Z79.890 Hormone replacement therapy; Z85.42 Personal history of malignant neoplasm of other parts of uterus; Z88.1 Allergy status to other antibiotic agents; Z87.891 Personal history of nicotine dependence; I25.2 Old myocardial infarction; Z82.49 Family history of ischemic heart disease and other diseases of the circulatory system; Z92.3 Personal history of irradiation; Z92.21 Personal history of antineoplastic chemotherapy; Z79.899 Other long term (current) drug therapy; Z88.6 Allergy status to analgesic agent
CPT/HCPCS: 33990; 36415; 71045; 76937; 80048; 80053; 80061; 83735; 84443; 84484; 85025; 85027; 85610; 85730; 92972; 92978; 93005; 93458; 94760; 96365; 96366; 96368; 99285

== ENCOUNTER 2023-11-23 21:22 | Emergency (ER) | payer MEDICARE ==
[2023-11-23 21:43] VITALS: TEMP 97.6
--- NOTE | 2023-11-23 21:54 | ED ---
General Adult HPI - General Chief complaint: Arrhythmia/Palpitations Stated complaint: a-fib high BP Time Seen by Provider: 11/23/23 21:37 Source: patient Mode of arrival: ambulatory - History of Present Illness Initial comments: Dictation was produced using [employer] dictation software. please excuse any grammatical, word or spelling errors. Chief Complaint: 83-year-old female with tachycardia and hypertension History of Present Illness: Patient is an 83-year-old female presents emergency department tachycardia and hypertension. She was just released from [facility] after being there for approximately 3 weeks. She was discharged on Tuesday. She states that she was given a bag with all her medications but has not taken them for the last 3 days because she does not know how. She is not sure about the instructions on how to take them which is why she has not taken any of her medications. Patient checked her blood pressure and heart rate today is found to be elevated with systolic in the 170s heart rate approximately 130. Patient otherwise has no other complaints. She has not had any establish care with primary care doctor yet. The ROS documented in this emergency department record has been reviewed and confirmed by me. Those systems with pertinent positive or negative responses have been documented in the HPI. All other systems are other negative and/or noncontributory. - Related Data Home Medications Medication Instructions Recorded Confirmed Levothyroxine Sodium 25 mcg PO DAILY 06/28/22 11/23/23 Psyllium Husk [Fiber Capsule] 3.2 gm PO BID 08/18/23 11/23/23 INSULIN ASPART (NovoLOG) [NovoLOG See Protocol SQ ACHS 11/23/23 11/23/23 (formulary)] Metoprolol Tartrate [Lopressor] 75 mg PO TID 11/23/23 11/23/23 Previous Rx's Medication Instructions Recorded Atorvastatin [Lipitor] 20 mg PO DAILY #30 tab 09/10/23 Furosemide [Lasix] 40 mg PO DAILY #30 tab 09/10/23 Tamsulosin [Flomax] 0.4 mg PO PC-BRKFST #30 cap 09/13/23 Verapamil [Isoptin] 40 mg PO TID #90 tab 09/13/23 Apixaban [Eliquis] 2.5 mg PO BID #0 tab 10/31/23 Clopidogrel [Plavix] 75 mg PO DAILY tab 10/31/23 Allergies Allergy/AdvReac Type Severity Reaction Status Date / Time bacitracin Allergy Rash/Hives Verified 11/23/23 23:12 [From Neosporin ([id number])] ibuprofen Allergy Anaphylaxis Verified 11/23/23 23:12 & Rash all over neomycin Allergy Rash/Hives Verified 11/23/23 23:12 [From Neosporin ([id number])] polymyxin B Allergy Rash/Hives Verified 11/23/23 23:12 [From Neosporin ([id number])] Review of Systems ROS Statement: Those systems with pertinent positive or pertinent negative responses have been documented in the HPI. ROS Other: All systems not noted in ROS Statement are negative. Past Medical History Past Medical History: Atrial Fibrillation, Diabetes Mellitus, Hypertension, Osteoarthritis (OA) Additional Past Medical History / Comment(s): uterine cancer, incontinent of urine History of Any Multi-Drug Resistant Organisms: None Reported Past Surgical History: No Surgical Hx Reported Additional Past Surgical History / Comment(s): cataract & carpal-tunnel bilat. Past Anesthesia/Blood Transfusion Reactions: No Reported Reaction Past Psychological History: No Psychological Hx Reported Smoking Status: Never smoker Past Alcohol Use History: None Reported Past Drug Use History: None Reported - Past Family History Mother Family Medical History: Coronary Artery Disease (CAD), Diabetes Mellitus, Hypertension, Mitral Valve Prolapse (MVP) Father Family Medical History: Hypertension Additional Family Medical History / Comment(s): father hip surgery General Exam - General Exam Comments Initial Comments: PHYSICAL EXAM: General Impression: Alert and oriented x3, not in acute distress HEENT: Normocephalic atraumatic, extra-ocular movements intact, pupils equal and reactive to light bilaterally, mucous membranes moist. Cardiovascular: irregular, tachycardic Chest: Able to complete full sentences, no retractions, no tachypnea Abdomen: abdomen soft, non-tender, non-distended, no organomegaly Musculoskeletal: Pulses present and equal in all extremities, no peripheral edema Motor: no focal deficits noted Neurological: CN II-XII grossly intact, no focal motor or sensory deficits noted Skin: Intact with no visualized rashes Psych: Normal affect and mood Course Vital Signs 11/23/23 11/23/23 11/24/23 21:27 22:30 00:11 Temperature 97.6 F Pulse Rate 131 H 115 H 98 Respiratory 22 18 20 Rate Blood Pressure 171/85 146/81 136/83 O2 Sat by Pulse 98 100 96 Oximetry EKG Findings - EKG Comments: EKG Findings:: My EKG interpretation: Ventricular rate 133, A-fib with RVR, cures 105, QTc 365. No [place] prolongation, no QTC prolongation, no ST or T-wave changes noted. EKG compared to October 25, 2023 showing no changes. Overall, this EKG is unremarkable Medical Decision Making - Medical Decision Making Was pt. sent in by a medical professional or institution (, MISAEL, LONG WALL SHEAR OPERATOR, urgent care, hospital, or [facility]...) When possible be specific @ -No Did you speak to anyone other than the patient for history (EMS, parent, family, police, friend...)? What history was obtained from this source @ -No Did you review nursing and triage notes (agree or disagree)? Why? @ -I reviewed and agree with nursing and triage notes Were old charts reviewed (outside hosp., previous admission, EMS record, old EKG, old radiological studies, urgent care reports/EKG's, [facility] records)? Report findings @ -No old charts were reviewed Differential Diagnosis (chest pain, altered mental status, abdominal pain women, abdominal pain men, vaginal bleeding, musculoskeletal, weakness, fever, dyspnea, syncope, headache, dizziness, GI bleed, back pain, seizure, CVA, palpatations, mental health)? @ -Not applicable EKG interpreted by me (3pts min.). @ -None done X-rays interpreted by me (1pt min.). @ -Chest x-ray is unremarkable CT interpreted by me (1pt min.). @ -None done U/S interpreted by me (1pt. min.). @ -None done What testing was considered but not performed or refused? (CT, X-rays, U/S, labs)? Why? @ -None What meds were considered but not given or refused? Why? @ -None Did you discuss the management of the patient with other professionals (professionals i.e. MISAEL Duron, LONG WALL SHEAR OPERATOR, lab, RT, psych nurse, pediatric social worker, project director, teacher, forestry technical officer, correctional counselor/case manager)? Give summary @ -No Was smoking cessation discussed for >3mins.? @ -No Was critical care preformed (if so, how long)? @ -No Were there social determinants of health that impacted care today? How? (Homelessness, low income, unemployed, alcoholism, drug addiction, tr ansportation, low edu. Level, literacy, decrease access to med. care, custodial, rehab)? @ -No Was there de-escalation of care discussed even if they declined (Discuss DNR or withdrawal of care, Hospice)? DNR status @ -No What co-morbidities impacted this encounter? (DM, HTN, Smoking, COPD, CAD, Cancer, CVA, ARF, Chemo, Hep., AIDS, mental health diagnosis, sleep apnea, morbid obesity)? @ -None Was patient admitted / discharged? Hospital course, mention meds given and route, prescriptions, significant lab abnormalities, going to OR and other pertinent info. @ -83-year-old female presents emergency department for elevated heart rate and elevated blood pressure. She has not been taking her medications as prescribed due to feeling a little confused about how to take her medications. She has not follow-up with her primary care doctor yet. Patient denies any specific complaints. Physical examination is benign. Patient slightly tachycardic on arrival. Laboratory evaluation obtained. Labs within acceptable limits. Patient given small dose of IV metoprolol along with oral metoprolol. Reevaluated bedside with improved heart rate blood pressure. Patient told to take her medications from the [facility] as prescribed in the meantime. She is told that she needs to follow-up closely with primary care doctor. Patient given referral to multiple primary care doctors in town. Undiagnosed new problem with uncertain prognosis? @ -No Drug Therapy requiring intensive monitoring for toxicity (Heparin, Nitro, Insulin, Cardizem)? @ -No Were any procedures done? @ -No Diagnosis/symptom? Acute, or Chronic, or Acute on Chronic? Uncomplicated (without systemic symptoms) or Complicated (systemic symptoms)? @ -Tachycardia hypertension Side effects of treatment? @ -No Exacerbation, Progression, or Severe Exacerbation? @ -No Poses a threat to life or bodily function? How? (Chest pain, [place], [place], pneumonia, PE, COPD, DKA, ARF, appy, cholecystitis, CVA, Diverticulitis, Homicidal, Schreiber icidal, threat to staff... and all critical care pts) @ -No - Lab Data Result diagrams: 11/23/23 22:06 11/23/23 22:06 Lab Results 11/23/23 11/23/23 11/23/23 Range/Units 22:06 22:06 22:06 WBC 6.8 (3.8-10.6) k/uL RBC 3.66 L (3.80-5.40) m/uL Hgb 9.1 L (11.4-16.0) gm/dL Hct 29.1 L (34.0-46.0) % MCV 79.5 L (80.0-100.0) fL MCH 24.9 L (25.0-35.0) pg MCHC 31.4 (31.0-37.0) g/dL RDW 15.8 H (11.5-15.5) % Plt Count 445 (150-450) k/uL MPV 7.2 Neutrophils % 79 % Lymphocytes % 13 % Monocytes % 4 % Eosinophils % 2 % Basophils % 1 % Neutrophils # 5.4 (1.3-7.7) k/uL Lymphocytes # 0.9 L (1.0-4.8) k/uL Monocytes # 0.3 (0-1.0) k/uL Eosinophils # 0.2 (0-0.7) k/uL Basophils # 0.1 (0-0.2) k/uL Hypochromasia Moderate PT 10.8 (10.0-12.5) sec INR 1.0 (<1.2) APTT 25.0 (22.0-30.0) sec Sodium 140 (137-145) mmol/L Potassium 4.0 (3.5-5.1) mmol/L Chloride 109 H (98-107) mmol/L Carbon Dioxide 26 (22-30) mmol/L Anion Gap 5 mmol/L BUN 34 H (7-17) mg/dL Creatinine 1.54 H (0.52-1.04) mg/dL Est GFR (CKD-EPI)AfAm 36 (>60 ml/min/1.73 sqM) Est GFR (CKD-EPI)NonAf 31 (>60 ml/min/1.73 sqM) Glucose 150 H (74-99) mg/dL Calcium 8.7 (8.4-10.2) mg/dL Magnesium 2.2 (1.6-2.3) mg/dL Total Bilirubin 0.5 (0.2-1.3) mg/dL AST 33 (14-36) U/L ALT 25 (4-34) U/L Alkaline Phosphatase 115 (38-126) U/L Troponin I (0.000-0.034) ng/mL Total Protein 7.6 (6.3-8.2) g/dL Albumin 3.5 (3.5-5.0) g/dL 11/23/23 Range/Units 22:06 WBC (3.8-10.6) k/uL RBC (3.80-5.40) m/uL Hgb (11.4-16.0) gm/dL Hct (34.0-46.0) % MCV (80.0-100.0) fL MCH (25.0-35.0) pg MCHC (31.0-37.0) g/dL RDW (11.5-15.5) % Plt Count (150-450) k/uL MPV Neutrophils % % Lymphocytes % % Monocytes % % Eosinophils % % Basophils % % Neutrophils # (1.3-7.7) k/uL Lymphocytes # (1.0-4.8) k/uL Monocytes # (0-1.0) k/uL Eosinophils # (0-0.7) k/uL Basophils # (0-0.2) k/uL Hypochromasia PT (10.0-12.5) sec INR (<1.2) APTT (22.0-30.0) sec Sodium (137-145) mmol/L Potassium (3.5-5.1) mmol/L Chloride (98-107) mmol/L Carbon Dioxide (22-30) mmol/L Anion Gap mmol/L BUN (7-17) mg/dL Creatinine (0.52-1.04) mg/dL Est GFR (CKD-EPI)AfAm (>60 ml/min/1.73 sqM) Est GFR (CKD-EPI)NonAf (>60 ml/min/1.73 sqM) Glucose (74-99) mg/dL Calcium (8.4-10.2) mg/dL Magnesium (1.6-2.3) mg/dL Total Bilirubin (0.2-1.3) mg/dL AST (14-36) U/L ALT (4-34) U/L Alkaline Phosphatase (38-126) U/L Troponin I <0.012 (0.000-0.034) ng/mL Total Protein (6.3-8.2) g/dL Albumin (3.5-5.0) g/dL Disposition Clinical Impression: Tachycardia Disposition: HOME SELF-CARE Condition: Good Instructions (If sedation given, give patient instructions): Heart Palpitations (ED) Is patient prescribed a controlled substance at d/c from ED?: No Referrals: Mik Wood MD [REFERRING] - 1-2 days Dayanara Trimble MD [Medical Doctor] - 1-2 days Mau Camarena MD [REFERRING] - 1-2 days Time of Disposition: 01:04
[2023-11-23 22:18] LABS: Basophils # (A) 0.1 k/uL (0-0.2); Basophils % (A) 1 %; Eosinophils # (A) 0.2 k/uL (0-0.7); Eosinophils % (A) 2 %; HCT 29.1 % (34.0-46.0); HGB 9.1 gm/dL (11.4-16.0); Hypochromasia Moderate; Lymphocytes # (A) 0.9 k/uL (1.0-4.8); Lymphocytes % (A) 13 %; MCH 24.9 pg (25.0-35.0); MCHC 31.4 g/dL (31.0-37.0); MCV 79.5 fL (80.0-100.0); Mean Platelet Volume 7.2; Monocytes # (A) 0.3 k/uL (0-1.0); Monocytes % (A) 4 %; Neutrophils # (A) 5.4 k/uL (1.3-7.7); Neutrophils % (A) 79 %; Platelet Count 445 k/uL (150-450); RBC 3.66 m/uL (3.80-5.40); RDW 15.8 % (11.5-15.5); WBC 6.8 k/uL (3.8-10.6)
[2023-11-23 22:34] LABS: Prothrombin Time 10.8 sec (10.0-12.5)
[2023-11-23 22:39] LABS: ALT 25 U/L (4-34); AST 33 U/L (14-36); African American GFR (CKD) 36 (>60 ml/min/1.73 sqM); Albumin 3.5 g/dL (3.5-5.0); Alkaline Phosphatase 115 U/L (38-126); Anion Gap 5 mmol/L; Blood Urea Nitrogen 34 mg/dL (7-17); Calcium 8.7 mg/dL (8.4-10.2); Carbon Dioxide 26 mmol/L (22-30); Chloride 109 mmol/L (98-107); Glucose 150 mg/dL (74-99); Magnesium 2.2 mg/dL (1.6-2.3); Non-African American GFR(CKD) 31 (>60 ml/min/1.73 sqM); Sodium 140 mmol/L (137-145); Total Bilirubin 0.5 mg/dL (0.2-1.3); Total Protein 7.6 g/dL (6.3-8.2)
--- NOTE | 2023-11-23 23:17 | XR ---
EXAM: XR Chest, 2 Views CLINICAL HISTORY: ITS.REASON XR Reason: dysrhythmia TECHNIQUE: Frontal and lateral views of the chest. COMPARISON: No relevant prior studies available. FINDINGS: Lungs: Unremarkable. No consolidation. Pleural space: Unremarkable. No pneumothorax. Heart: Cardiomegaly. Mediastinum: Unremarkable. Normal mediastinal contour. Bones/joints: Unremarkable. No acute fracture. IMPRESSION: No acute findings in the chest.
[2023-11-24] MEDS: APIXABAN 5 MG TAB PO STA (00:07)
[2023-11-24] MEDS: METOPROLOL TARTRATE 5 MG/5 ML VIAL IVP STA (00:07)
[2023-11-24] MEDS: METOPROLOL TARTRATE 50 MG TAB PO STA (00:08)
[2023-11-24 00:19] VITALS: BP 136/83; RESP 20
[2023-11-24 02:06] VITALS: PULSE 89
== END 2023-11-24 01:52 | disposition home or self-care (01) ==
LOC: EC 21:22
DX: R00.0 Tachycardia, unspecified (principal); I10 Essential (primary) hypertension; I48.91 Unspecified atrial fibrillation; E11.9 Type 2 diabetes mellitus without complications; Z79.4 Long term (current) use of insulin; Z79.899 Other long term (current) drug therapy; Z88.1 Allergy status to other antibiotic agents; Z88.6 Allergy status to analgesic agent; Z98.49 Cataract extraction status, unspecified eye
CPT/HCPCS: 36415; 71046; 80053; 83735; 84484; 85025; 85610; 85730; 93005; 96374; 99285

== ENCOUNTER 2023-12-01 15:31 | Inpatient (IN) | payer MEDICARE ==
--- NOTE | 2023-12-01 16:53 | ED ---
General Adult HPI - General Chief complaint: Arrhythmia/Palpitations Stated complaint: AFIB/SOB Time Seen by Provider: 12/01/23 15:50 Source: patient, RN notes reviewed, old records reviewed Mode of arrival: ambulatory Limitations: no limitations - History of Present Illness Initial comments: This is an 83-year-old female who presents to the emergency department complaining that she has been short of breath patient states she is also noted on her pulse ox at home that her pulse was elevated and her blood pressure also at home was elevated. Patient denies any chest pain or palpitations. Patient denies any recent fever chills or cough. Family states the patient looks a lot more pale than normal. Patient denies any abdominal pain patient has any vomiting or. Patient states she has had some loose stools recently but there is no black or bloody stools. - Related Data Home Medications Medication Instructions Recorded Confirmed Levothyroxine Sodium 25 mcg PO DAILY 06/28/22 12/01/23 Psyllium Husk [Fiber Capsule] 3.2 gm PO BID 08/18/23 12/01/23 INSULIN ASPART (NovoLOG) [NovoLOG See Protocol SQ ACHS 11/23/23 12/01/23 (formulary)] Metoprolol Tartrate [Lopressor] 75 mg PO TID 11/23/23 12/01/23 Clopidogrel [Plavix] 75 mg PO DIRECTED 12/01/23 12/01/23 Previous Rx's Medication Instructions Recorded Atorvastatin [Lipitor] 20 mg PO DAILY #30 tab 09/10/23 Furosemide [Lasix] 40 mg PO DAILY #30 tab 09/10/23 Tamsulosin [Flomax] 0.4 mg PO PC-BRKFST #30 cap 09/13/23 Verapamil [Isoptin] 40 mg PO TID #90 tab 09/13/23 Apixaban [Eliquis] 2.5 mg PO BID #0 tab 10/31/23 Allergies Allergy/AdvReac Type Severity Reaction Status Date / Time bacitracin Allergy Rash/Hives Verified 12/01/23 16:43 [From Neosporin ([id number])] ibuprofen Allergy Anaphylaxis Verified 12/01/23 16:43 & Rash all over neomycin Allergy Rash/Hives Verified 12/01/23 16:43 [From Neosporin ([id number])] polymyxin B Allergy Rash/Hives Verified 12/01/23 16:43 [From Neosporin ([id number])] Review of Systems ROS Statement: Those systems with pertinent positive or pertinent negative responses have been documented in the HPI. ROS Other: All systems not noted in ROS Statement are negative. Past Medical History Past Medical History: Atrial Fibrillation, Diabetes Mellitus, Hypertension, Osteoarthritis (OA) Additional Past Medical History / Comment(s): uterine cancer, incontinent of urine History of Any Multi-Drug Resistant Organisms: None Reported Past Surgical History: No Surgical Hx Reported Additional Past Surgical History / Comment(s): cataract & carpal-tunnel bilat. Past Anesthesia/Blood Transfusion Reactions: No Reported Reaction Past Psychological History: No Psychological Hx Reported Smoking Status: Never smoker Past Alcohol Use History: None Reported Past Drug Use History: None Reported - Past Family History Mother Family Medical History: Coronary Artery Disease (CAD), Diabetes Mellitus, Hypertension, Mitral Valve Prolapse (MVP) Father Family Medical History: Hypertension Additional Family Medical History / Comment(s): father hip surgery General Exam - General Exam Comments Initial Comments: GENERAL: Patient is well-developed and well-nourished. Patient is nontoxic and well- hydrated and is in mild distress. ENT: Neck is soft and supple. No significant lymphadenopathy is noted. Oropharynx is clear. Moist mucous membranes. Neck has full range of motion without eliciting any pain. EYES: The sclera were anicteric and conjunctiva were pink and moist. Extraocular movements were intact and pupils were equal round and reactive to light. Eyelids were unremarkable. PULMONARY: Unlabored respirations. Good breath sounds bilaterally. No audible rales rhonchi or wheezing was noted. CARDIOVASCULAR: Patient is tachycardic at 140 beats a minute ABDOMEN: Soft and nontender with normal bowel sounds. SKIN: Patient skin is pale NEUROLOGIC: Patient is alert and oriented x3. Cranial nerves II through XII are grossly intact. Motor and sensory are also intact. Normal speech, volume and content. Symmetrical smile. MUSCULOSKELETAL: Normal extremities with adequate strength and full range of motion. LYMPHATICS: No significant lymphadenopathy is noted PSYCHIATRIC: Normal psychiatric evaluation. Limitations: no limitations Course Vital Signs 12/01/23 12/01/23 12/01/23 15:43 16:01 17:00 Temperature 97.8 F Pulse Rate 134 H 133 H 129 H Respiratory 22 18 18 Rate Blood Pressure 147/86 146/116 145/96 O2 Sat by Pulse 98 97 97 Oximetry 12/01/23 12/01/23 18:00 18:27 Temperature Pulse Rate 116 H 110 H Respiratory 18 18 Rate Blood Pressure 130/79 130/79 O2 Sat by Pulse 95 97 Oximetry Medical Decision Making - Medical Decision Making EKG is interpreted by myself but EKG shows atrial fibrillation with rapid ventricular response at 137 beats a minute QRS is 103 QT interval is 286 QTc is 366. Patient's EKG shows no ST segment ovation or depression. Was pt. sent in by a medical professional or institution (, PA, MANAGER PEDIATRIC, urgent care, hospital, or fci...) When possible be specific @ -[No] Did you speak to anyone other than the patient for history (EMS, parent, family, police, friend...)? What history was obtained from this source @ -Son and gave part of the history Did you review nursing and triage notes (agree or disagree)? Why? @ -[I reviewed and agree with nursing and triage notes] Were old charts reviewed (outside hosp., previous admission, EMS record, old EKG, old radiological studies, urgent care reports/EKG's, [facility]ci records)? Report findings @ -I reviewed prior charts and prior lab work on this patient Differential Diagnosis (chest pain, altered mental status, abdominal pain women, abdominal pain men, vaginal bleeding, weakness, fever, dyspnea, syncope, headache, dizziness, GI bleed, back pain, seizure, CVA, palpatations, mental health, musculoskeletal)? @ -Differential Palpitations Ventricular arrhythmias, atrial arrhythmias, myocardial infarction, anemia, thyrotoxicosis, electrolyte imbalance, hypokalemia, pulmonary embolism, pulmonary disease, drugs, alcohol, anxiety, stress.... This is not meant to be an all-inclusive list. EKG interpreted by me (3pts min.). @ -[As above] X-rays interpreted by me (1pt min.). @ -Chest x-ray shows no acute abnormality CT interpreted by me (1pt min.). @ -[None done] U/S interpreted by me (1pt. min.). @ -[None done] What testing was considered but not performed or refused? (CT, X-rays, U/S, labs)? Why? @ -[None] What meds were considered but not given or refused? Why? @ -[None] Did you discuss the management of the patient with other professionals ( professionals i.e. DrDary, PA, MANAGER PEDIATRIC, lab, RT, psych nurse, geriatric social work professor, bariatric program coordinator, teacher, real estate utilization officer, piano case and bench assembler)? Give summary @ -I spoke with Dr. Gaston he agreed admit the patient admit the patient wrote admitting orders Was smoking cessation discussed for >3mins.? @ -[No] Was critical care preformed (if so, how long)? @ -35 minutes Were there social determinants of health that impacted care today? How? (Homelessness, low income, unemployed, alcoholism, drug addiction, transportation, low edu. Level, literacy, decrease access to med. care, fpc, rehab)? @ -[No] Was there de-escalation of care discussed even if they declined (Discuss DNR or withdrawal of care, Hospice)? DNR status @ -[No] What co-morbidities impacted this encounter? (DM, HTN, Smoking, COPD, CAD, Cancer, CVA, ARF, Chemo, Hep., AIDS, mental health diagnosis, sleep apnea, morbid obesity)? @ -[None] Was patient admitted / discharged? Hospital course, mention meds given and route, prescriptions, significant lab abnormalities, going to OR and other pertinent info. @ -Patient was started on Cardizem and heparin in the emergency department. Patient stated she did not take any of her meds for about a week. Patient also denied chest pain at any time during her ED course. Patient's heart rate began to slow down I spoke with Dr. Gaston he agreed to admit the patient troponin was mildly elevated so I repeated troponins and consult cardiology Undiagnosed new problem with uncertain prognosis? @ -[No] Drug Therapy requiring intensive monitoring for toxicity (Heparin, Nitro, Insulin, Cardizem)? @ -[No] Were any procedures done? @ -[No] Diagnosis/symptom? @ -A-fib with rapid ventricular response Acute, or Chronic, or Acute on Chronic? @ -Acute Uncomplicated (without systemic symptoms) or Complicated (systemic symptoms)? @ -Complicated Side effects of treatment? @ -[No] Exacerbation, Progression, or Severe Exacerbation? @ -[No] Poses a threat to life or bodily function? How? (Chest pain, [place], [place], pneumonia, PE, COPD, DKA, ARF, appy, cholecystitis, CVA, Diverticulitis, Homicidal, Suicidal, threat to staff... and all critical care pts) @ -Yes this could lead to poor perfusion and end organ dysfunction - Lab Data Result diagrams: 12/01/23 17:11 12/01/23 17:11 Lab Results 12/01/23 12/01/23 12/01/23 Range/Units 17:11 17:11 17:11 WBC 5.7 (3.8-10.6) k/uL RBC 3.73 L (3.80-5.40) m/uL Hgb 9.2 L (11.4-16.0) gm/dL Hct 29.5 L (34.0-46.0) % MCV 79.1 L (80.0-100.0) fL MCH 24.6 L (25.0-35.0) pg MCHC 31.1 (31.0-37.0) g/dL RDW 16.6 H (11.5-15.5) % Plt Count 393 (150-450) k/uL MPV 6.8 Neutrophils % 77 % Lymphocytes % 13 % Monocytes % 4 % Eosinophils % 4 % Basophils % 1 % Neutrophils # 4.4 (1.3-7.7) k/uL Lymphocytes # 0.8 L (1.0-4.8) k/uL Monocytes # 0.2 (0-1.0) k/uL Eosinophils # 0.2 (0-0.7) k/uL Basophils # 0.1 (0-0.2) k/uL Hypochromasia Moderate Anisocytosis Slight Microcytosis Slight PT 10.5 (10.0-12.5) sec INR 0.9 (<1.2) APTT 24.0 (22.0-30.0) sec Sodium 138 (137-145) mmol/L Potassium 5.3 H (3.5-5.1) mmol/L Chloride 107 (98-107) mmol/L Carbon Dioxide 20 L (22-30) mmol/L Anion Gap 11 mmol/L BUN 39 H (7-17) mg/dL Creatinine 1.59 H (0.52-1.04) mg/dL Est GFR (CKD-EPI)AfAm 35 (>60 ml/min/1.73 sqM) Est GFR (CKD-EPI)NonAf 30 (>60 ml/min/1.73 sqM) Glucose 217 H (74-99) mg/dL Calcium 8.9 (8.4-10.2) mg/dL Magnesium 2.1 (1.6-2.3) mg/dL Total Bilirubin 0.9 (0.2-1.3) mg/dL AST 43 H (14-36) U/L ALT 20 (4-34) U/L Alkaline Phosphatase 96 (38-126) U/L Troponin I (0.000-0.034) ng/mL Total Protein 8.9 H (6.3-8.2) g/dL Albumin 4.1 (3.5-5.0) g/dL 12/01/23 Range/Units 17:11 WBC (3.8-10.6) k/uL RBC (3.80-5.40) m/uL Hgb (11.4-16.0) gm/dL Hct (34.0-46.0) % MCV (80.0-100.0) fL MCH (25.0-35.0) pg MCHC (31.0-37.0) g/dL RDW (11.5-15.5) % Plt Count (150-450) k/uL MPV Neutrophils % % Lymphocytes % % Monocytes % % Eosinophils % % Basophils % % Neutrophils # (1.3-7.7) k/uL Lymphocytes # (1.0-4.8) k/uL Monocytes # (0-1.0) k/uL Eosinophils # (0-0.7) k/uL Basophils # (0-0.2) k/uL Hypochromasia Anisocytosis Microcytosis PT (10.0-12.5) sec INR (<1.2) APTT (22.0-30.0) sec Sodium (137-145) mmol/L Potassium (3.5-5.1) mmol/L Chloride (98-107) mmol/L Carbon Dioxide (22-30) mmol/L Anion Gap mmol/L BUN (7-17) mg/dL Creatinine (0.52-1.04) mg/dL Est GFR (CKD-EPI)AfAm (>60 ml/min/1.73 sqM) Est GFR (CKD-EPI)NonAf (>60 ml/min/1.73 sqM) Glucose (74-99) mg/dL Calcium (8.4-10.2) mg/dL Magnesium (1.6-2.3) mg/dL Total Bilirubin (0.2-1.3) mg/dL AST (14-36) U/L ALT (4-34) U/L Alkaline Phosphatase (38-126) U/L Troponin I 0.111 H* (0.000-0.034) ng/mL Total Protein (6.3-8.2) g/dL Albumin (3.5-5.0) g/dL Critical Care Time Critical Care Time: Yes Total Critical Care Time: 35 Disposition Clinical Impression: Atrial fibrillation with RVR Disposition: ADMITTED IP TO THIS HOSP Referrals: Sheyla Meadows MD [Primary Care Provider] - 1-2 days Time of Disposition: 19:49
[2023-12-01 17:17] LABS: Anisocytosis Slight; Basophils # (A) 0.1 k/uL (0-0.2); Basophils % (A) 1 %; Eosinophils # (A) 0.2 k/uL (0-0.7); Eosinophils % (A) 4 %; HCT 29.5 % (34.0-46.0); HGB 9.2 gm/dL (11.4-16.0); Hypochromasia Moderate; Lymphocytes # (A) 0.8 k/uL (1.0-4.8); Lymphocytes % (A) 13 %; MCH 24.6 pg (25.0-35.0); MCHC 31.1 g/dL (31.0-37.0); MCV 79.1 fL (80.0-100.0); Mean Platelet Volume 6.8; Microcytosis Slight; Monocytes # (A) 0.2 k/uL (0-1.0); Monocytes % (A) 4 %; Neutrophils # (A) 4.4 k/uL (1.3-7.7); Neutrophils % (A) 77 %; Platelet Count 393 k/uL (150-450); RBC 3.73 m/uL (3.80-5.40); RDW 16.6 % (11.5-15.5); WBC 5.7 k/uL (3.8-10.6)
[2023-12-01 17:29] LABS: INR 0.9 (<1.2); Prothrombin Time 10.5 sec (10.0-12.5)
[2023-12-01] MEDS: DILTIAZEM DRIP BOLUS FROM BAG 1 MG SOLN IV ONE (17:35)
[2023-12-01] MEDS: DILTIAZEM 125 MG in SODIUM CHLORIDE 0.9% 100 ML IV SCH (17:35)
--- NOTE | 2023-12-01 17:59 | XR ---
EXAMINATION: XR chest 2V: 12/01/2023 5:37 PM CLINICAL INDICATION: dysrhythmia TECHNIQUE: Departmental protocol COMPARISON: 11/23/2023 FINDINGS: There is silhouetting of the pulmonary vasculature the lower lung zones, suggesting a clinical diagno sis of mild interstitial phase pulmonary edema. The pleural spaces are negative. The cardiac silhouette appears mildly enlarged, stable. Coronary calcifications and/or stent noted on the lateral radiograph. The skeletal structures and soft tissues are negative for acute findings. IMPRESSION: No acute radiographic process.
[2023-12-01] MEDS: HEPARIN SOD,PORK IN 0.45% NACL 25,000 UNIT in 0.45% NACL 1 250ML.BAG IV SCH (18:19)
[2023-12-01] MEDS: HEPARIN SODIUM 1,000 UN/ML (10ML VL) IV ONE (18:27)
[2023-12-01 18:36] LABS: ALT 20 U/L (4-34); African American GFR (CKD) 35 (>60 ml/min/1.73 sqM); Albumin 4.1 g/dL (3.5-5.0); Anion Gap 11 mmol/L; Blood Urea Nitrogen 39 mg/dL (7-17); Calcium 8.9 mg/dL (8.4-10.2); Carbon Dioxide 20 mmol/L (22-30); Chloride 107 mmol/L (98-107); Glucose 217 mg/dL (74-99); Magnesium 2.1 mg/dL (1.6-2.3); Non-African American GFR(CKD) 30 (>60 ml/min/1.73 sqM); Sodium 138 mmol/L (137-145); Total Bilirubin 0.9 mg/dL (0.2-1.3)
[2023-12-01 18:41] LABS: AST 43 U/L (14-36); Alkaline Phosphatase 96 U/L (38-126); Potassium 5.3 mmol/L (3.5-5.1); Total Protein 8.9 g/dL (6.3-8.2)
[2023-12-01] MEDS ORDERED: NITROGLYCERIN SL TABS 0.4 MG TAB SUBLINGUAL PRN (19:49)
[2023-12-01] MEDS: METOPROLOL TARTRATE 25 MG TAB PO SCH (22:57)
[2023-12-01] MEDS: VERAPAMIL 40 MG TAB PO SCH (22:57)
[2023-12-02] MEDS: NITROGLYCERIN OINT 1 INCH/GM PACKET TOPICAL SCH (00:12)
[2023-12-02] MEDS: HEPARIN SODIUM 1,000 UN/ML (10ML VL) IV PRN (01:16)
--- NOTE | 2023-12-02 05:48 | P.HPIM ---
History of Present Illness H&P Date: 12/01/23 Chief Complaint: A-fib with RVR, shortness of breath, severe atherosclerotic heart disease HISTORY OF PRESENT ILLNESS: 83-year-old for office patient with past medical history of Paroxysmal atrial fibrillation was on anticoagulation, history of hypertension, hyperlipidemia, stage III chronic kidney disease, chronic diastolic congestive heart failure, who also had recently history of non-ST AK with heart cath showed CAD including left main at 80% stenosis with mild LAD at 60 to 70% stenosis with circumflex 100% stenosis ended up having PCI of the left main and LAD, patient had multiple visits to the emergency department last few months with recurrent A-fib with RVR with similar claimed that she ran out of medication, she stopped taking medication a week ago, and many other. Sadly since her angioplasty and stent placement and the harm of not being on dual antiplatelet agent and her current medications extremely dangerous despite explaining this to the patient it looks like this event keep happening. She presented to the emergency department today complaining of worsening shortness of breath with rapid pulse and slight tightness and pressure on the chest with recurrent palpitation with nausea feeling she apparently had what se ems like upper respiratory infection recently had a clear with temperature was borderline at the time she denies any recurrent abdominal pain or any GI symptoms. Her pulse was running at 130 bpm irregular was found to be in A-fib with RVR again her excuse is that she ran out of medication a week ago and not taking any medication since. She was started in emergency department on Cardizem drip Laboratory value showed mild anemia better than what she had in October, slight electrolyte imbalance with kidney function the same level, her blood sugar is mildly elevated with troponin at 0.11. Chest x-ray showed no acute radiographic process, EKG at the emergency department showed atrial fibrillation with rapid ventricular response with pulse of 137 bpm. Again after starting medication the Cardizem drip initially and was started on heparin drip patient cough started coming down gradually. Patient will be admitted to the hospital with see cardiology elevated troponin level she had a heart cath not too long ago whether this is troponin leak or related to type II NSTEMI again this to be determined. REVIEW OF SYSTEMS: CONSTITUTIONAL: Well-developed in mild respiratory distress. EYES: No icterus sclerae, no conjunctivitis. EARS, NOSE, MOUTH, THROAT, and FACE: No sore throat, lymphadenopathy, carotid bruits or deformity. RESPIRATORY: Mild shortness of breath and dyspnea with no cough or wheezes. CARDIOVASCULAR: Positive palpitation and A-fib with no angina positive PND and orthopnea. GASTROINTESTINAL: No Abd pain, Nausea or vomiting, no Diarrhea or constipation, No GI Bleed, no distention or masses. GENITOURINARY: Negative for Hematuria or UTI, no kidney stones. INTEGUMENT/BREAST: Negative for any muscular injury with mild osteoarthritis.. HEMATOLOGIC/LYMPHATIC: Negative for bleed or purpura. MUSCULOSKELTAL: Negative for Myalgia or arthralgia. NEURLOGICAL: No LOC, Sz or syncope, blurred vision dizziness or abnormality.. BEHAVIORAL/PSYCH: Negative. ENDOCRINE: Negative. PHYSICAL EXAMINATION: General Appearance: Alert, cooperative, mild distress. Neck HEENT: Supple, no lymphadenopathy, no thyroid enlargement, no carotid bruits. Lungs: Decreased expansion bilaterally with fine rhonchi positive mild rhonchi but no wheezes. Chest Wall: Decreased expansion with deep inspiration no tenderness and no deformity was found on exam, no costochondral pain or discomfort. Heart: Irregular rate and rhythm, S1, S2 positive severe tachycardia positive ejection murmur. Back: Symmetric, no curvature, ROM normal, no CVA tenderness. Abdomen: Soft, non-tender, bowel sounds active all four quadrants, no masses, no organomegaly. Extremities: Trace edema without cyanotic. Pulses: 2+ and symmetric. Skin: Skin color, texture, tugor normal, no rashes or lesions. Neurologic: Alert oriented with slight confusion. Cranial nerves II through XII intact, no motor deficit, no abnormal balance or gait. ASSESSMENT AND PLAN: _A-fib with RVR: She was placed on verapamil drip in the emergency department patient will be back on her home meds probably tomorrow we will titrate medication however if needed seems like her pulse was under well control and she was on medication on a more regular basis so this is can be case of noncompliance mostly. 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 _Atherosclerotic heart disease: Post PCI and stent placement from October has been seeing cardiology she needs more assurance probably family need to be more involved making sure she is taking her medication on time and that she does not run out of medication. _Type 2 diabetes: Has been doing well resume insulin with sliding scale coverage blood sugars mildly elevated being on medication regular basis will be helpful and beneficial. _Hypertension: Still on verapamil 40 mg 3 times a day along with blood pressure 75 mg twice a day continue medication. _Hyperlipidemia: Continue atorvastatin 20 mg a day. _Chronic anemia: With hemoglobin running in the 8-9 level with patient being on dual antiplatelet agent along with Eliquis probably would not help will add to her regime at least PPI with Protonix 40 mg daily. _Hypothyroidism: Continue levothyroxine 25 mcg daily. _GI prophylaxis: Will be on pantoprazole 40 mg daily. CODE STATUS: Full code. Admit patient to the inpatient service for more than 2 night stay. Past Medical History Past Medical History: Atrial Fibrillation, Diabetes Mellitus, Hypertension, Osteoarthritis (OA) Additional Past Medical History / Comment(s): uterine cancer, incontinent of urine History of Any Multi-Drug Resistant Organisms: None Reported Past Surgical History: No Surgical Hx Reported Additional Past Surgical History / Comment(s): cataract & carpal-tunnel bilat. Past Anesthesia/Blood Transfusion Reactions: No Reported Reaction Past Psychological History: No Psychological Hx Reported Smoking Status: Never smoker Past Alcohol Use History: None Reported Past Drug Use History: None Reported - Past Family History Mother Family Medical History: Coronary Artery Disease (CAD), Diabetes Mellitus, Hypertension, Mitral Valve Prolapse (MVP) Father Family Medical History: Hypertension Additional Family Medical History / Comment(s): father hip surgery Medications and Allergies Home Medications Medication Instructions Recorded Confirmed Type Levothyroxine Sodium 25 mcg PO DAILY 06/28/22 12/01/23 History Psyllium Husk [Fiber Capsule] 3.2 gm PO BID 08/18/23 12/01/23 History Atorvastatin [Lipitor] 20 mg PO DAILY #30 tab 09/10/23 12/01/23 Rx Furosemide [Lasix] 40 mg PO DAILY #30 tab 09/10/23 12/01/23 Rx Tamsulosin [Flomax] 0.4 mg PO PC-BRKFST #30 cap 09/13/23 12/01/23 Rx Verapamil [Isoptin] 40 mg PO TID #90 tab 09/13/23 12/01/23 Rx Apixaban [Eliquis] 2.5 mg PO BID #0 tab 10/31/23 12/01/23 Rx INSULIN ASPART (NovoLOG) [NovoLOG See Protocol SQ ACHS 11/23/23 12/01/23 History (formulary)] Metoprolol Tartrate [Lopressor] 75 mg PO TID 11/23/23 12/01/23 History Clopidogrel [Plavix] 75 mg PO DIRECTED 12/01/23 12/01/23 History Allergies Allergy/AdvReac Type Severity Reaction Status Date / Time bacitracin Allergy Rash/Hives Verified 12/01/23 16:43 [From Neosporin ([id number])] ibuprofen Allergy Anaphylaxis Verified 12/01/23 16:43 & Rash all over neomycin Allergy Rash/Hives Verified 12/01/23 16:43 [From Neosporin ([id number])] polymyxin B Allergy Rash/Hives Verified 12/01/23 16:43 [From Neosporin ([id number])] Physical Exam Vitals: Vital Signs Temp Pulse Resp BP Pulse Ox 12/01/23 19:55 108 H 18 120/80 97 12/01/23 18:27 110 H 18 130/79 97 12/01/23 18:00 116 H 18 130/79 95 12/01/23 17:00 129 H 18 145/96 97 12/01/23 16:01 133 H 18 146/116 97 12/01/23 15:43 97.8 F 134 H 22 147/86 98 Intake and Output 12/01/23 12/01/23 12/01/23 06:59 14:59 22:59 Other: Weight 63.503 kg Results CBC & Chem 7: 12/01/23 17:11 12/01/23 17:11 Labs: Abnormal Lab Results - Last 24 Hours (Table) 12/01/23 12/01/23 12/01/23 Range/Units 17:11 17:11 17:11 RBC 3.73 L (3.80-5.40) m/uL Hgb 9.2 L (11.4-16.0) gm/dL Hct 29.5 L (34.0-46.0) % MCV 79.1 L (80.0-100.0) fL MCH 24.6 L (25.0-35.0) pg RDW 16.6 H (11.5-15.5) % Lymphocytes # 0.8 L (1.0-4.8) k/uL Potassium 5.3 H (3.5-5.1) mmol/L Carbon Dioxide 20 L (22-30) mmol/L BUN 39 H (7-17) mg/dL Creatinine 1.59 H (0.52-1.04) mg/dL Glucose 217 H (74-99) mg/dL AST 43 H (14-36) U/L Troponin I 0.111 H* (0.000-0.034) ng/mL Total Protein 8.9 H (6.3-8.2) g/dL
[2023-12-02 06:13] LABS: Glucose,Whole Blood 122 mg/dL (70-110)
[2023-12-02] MEDS: INSULIN ASPART (NovoLOG) 100 UNIT/ML VIAL SQ SCH (06:35)
[2023-12-02] MEDS: LEVOTHYROXINE 25 MCG TAB PO SCH (06:41)
[2023-12-02] MEDS ORDERED: INSULIN ASPART (NovoLOG) 100 UNIT/ML VIAL SQ SCH (07:30)
[2023-12-02] MEDS: TAMSULOSIN 0.4 MG CAP.ER.24H PO SCH (08:29)
[2023-12-02] MEDS: FUROSEMIDE 40 MG TAB PO SCH (08:29)
[2023-12-02] MEDS: ATORVASTATIN 20 MG TAB PO SCH (08:29)
[2023-12-02] MEDS: CLOPIDOGREL 75 MG TAB PO SCH (08:30)
[2023-12-02] MEDS: PSYLLIUM HUSK 100% 6 GM PACKET PO SCH (08:30)
[2023-12-02] MEDS ORDERED: ASPIRIN 325 MG TAB PO SCH (09:00)
--- NOTE | 2023-12-02 10:33 | P.CRDCN ---
History of Present Illness History of present illness: HISTORY OF PRESENT ILLNESS: This is a 83-year-old female with a past medical history significant for coronary artery disease, hypertension, hyperlipidemia, chronic lower extremity edema, and paroxysmal atrial fibrillation. Patient follows in the office with Dr. Mosley. We have been asked to see the patient in consultation for A-fib with RVR. Patient examined at the bedside. Patient presented to the hospital with a chief complaint of shortness of breath with exertion and palpitations. Patient was found to be in A-fib with RVR. She was started on IV Cardizem. She remains in atrial fibrillation this morning with controlled ventricular rate. She denies any chest pain or pressure. Apparently the patient has not been taking her medications recently and states that she ran out of them. DIAGNOSTICS: - EKG reveals atrial fibrillation with RVR. - Chest xray negative for acute process. - Laboratory data: WBC 5.7. Hemoglobin 9.2. Platelet count 393. Sodium 138. Potassium 5.3. BUN 39. Creatinine 1.59. Troponin 0.111. 0.069. 0.240. - Current home cardiac medications include Plavix 75 mg daily, Eliquis 2.5 mg twice a day, Lipitor 20 mg daily, Lasix 40 mg daily, metoprolol tartrate 75 mg 3 times a day, add verapamil 40 mg 3 times a day. - Most recent echocardiogram obtained in 07/2023 revealing ejection fraction 55 to 60%, mild pulm hypertension,, mild to moderate MR, mild to moderate TR - Cardiac catheterization history: September 2023 revealing left main 80% olivier nosis, mid LAD 60 to 70% stenosis, circumflex 100% stenosis. Patient underwent PCI of left main into LAD. REVIEW OF SYSTEMS: At the time of my exam: CONSTITUTIONAL: Denies fever or chills. HEENT: Denies blurred vision, vision changes, or eye pain. Denies hemoptysis CARDIOVASCULAR: Denies chest pain. Denies orthopnea. Denies PND. Denies palpitations RESPIRATORY: Denies shortness of breath. GASTROINTESTINAL: Denies abdominal pain. Denies nausea or vomiting. HEMATOLOGIC: Denies bleeding disorders. GENITOURINARY: Denies any blood in urine. SKIN: Denies pruitis. Denies rash. PHYSICAL EXAM: VITAL SIGNS: Reviewed. GENERAL: Well-developed in no acute distress. HEENT: Head is normocephalic. Pupils are equal, round. Sclerae anicteric. Mucous membranes of the mouth are moist. Neck supple. No JVD or thyromegaly LUNGS: Respirations even and unlabored. Lungs essentially clear to auscultation bilaterally. HEART: Irregular rate and rhythm. S1 and S2 heard. ABDOMEN: Soft. Nondistended. Nontender. EXTREMITIES: Normal range of motion. No clubbing or cyanosis. Peripheral pulses intact. No lower extremity edema NEUROLOGIC: Awake and alert. Oriented x 3. ASSESSMENT: Shortness of breath with exertion Paroxysmal atrial fibrillation with RVR Elevated troponins, suspect type II [place] Coronary artery disease with recent stenting of left main into LAD, 09/2023 Chronic heart failure with preserved ejection fraction, 55 to 60% Hypertension Hyperlipidemia Chronic kidney disease Medication noncompliance PLAN: Discontinue IV heparin. Resume Eliquis Discontinue IV Cardizem Resume additional home cardiac medications Dr. Ram discussed findings with Dr. Mosley, patient's primary slab installer, no plans for cardiac catheterization at this time Further recommendations pending patient course Nurse practitioner note has been reviewed by physician. Signing provider agrees with the documented findings, assessment, and plan of care documented by CLERICAL WAREHOUSEMAN as a scribe. Past Medical History Past Medical History: Atrial Fibrillation, Diabetes Mellitus, Hypertension, Osteoarthritis (OA) Additional Past Medical History / Comment(s): uterine cancer, incontinent of urine History of Any Multi-Drug Resistant Organisms: None Reported Past Surgical History: No Surgical Hx Reported Additional Past Surgical History / Comment(s): cataract & carpal-tunnel bilat. Past Anesthesia/Blood Transfusion Reactions: No Reported Reaction Past Psychological History: No Psychological Hx Reported Smoking Status: Never smoker Past Alcohol Use History: None Reported Past Drug Use History: None Reported - Past Family History Mother Family Medical History: Coronary Artery Disease (CAD), Diabetes Mellitus, Hypertension, Mitral Valve Prolapse (MVP) Father Family Medical History: Hypertension Additional Family Medical History / Comment(s): father hip surgery Medications and Allergies Home Medications Medication Instructions Recorded Confirmed Type Levothyroxine Sodium 25 mcg PO DAILY 06/28/22 12/01/23 History Psyllium Husk [Fiber Capsule] 3.2 gm PO BID 08/18/23 12/01/23 History Atorvastatin [Lipitor] 20 mg PO DAILY #30 tab 09/10/23 12/01/23 Rx Furosemide [Lasix] 40 mg PO DAILY #30 tab 09/10/23 12/01/23 Rx Tamsulosin [Flomax] 0.4 mg PO PC-BRKFST #30 cap 09/13/23 12/01/23 Rx Verapamil [Isoptin] 40 mg PO TID #90 tab 09/13/23 12/01/23 Rx Apixaban [Eliquis] 2.5 mg PO BID #0 tab 10/31/23 12/01/23 Rx INSULIN ASPART (NovoLOG) [NovoLOG See Protocol SQ ACHS 11/23/23 12/01/23 History (formulary)] Metoprolol Tartrate [Lopressor] 75 mg PO TID 11/23/23 12/01/23 History Clopidogrel [Plavix] 75 mg PO DIRECTED 12/01/23 12/01/23 History Allergies Allergy/AdvReac Type Severity Reaction Status Date / Time bacitracin Allergy Rash/Hives Verified 12/01/23 16:43 [From Neosporin ([id number])] ibuprofen Allergy Anaphylaxis Verified 12/01/23 16:43 & Rash all over neomycin Allergy Rash/Hives Verified 12/01/23 16:43 [From Neosporin ([id number])] polymyxin B Allergy Rash/Hives Verified 12/01/23 16:43 [From Neosporin ([id number])] Physical Exam Vitals: Vital Signs Temp Pulse Pulse Resp BP BP Pulse Ox 12/02/23 04:00 98 F 85 16 137/72 94 L 12/02/23 00:00 97.7 F 71 18 129/61 100 12/01/23 23:54 78 18 141/84 94 L 12/01/23 22:54 91 19 134/82 97 12/01/23 22:00 117 H 20 138/93 97 12/01/23 21:00 104 H 19 134/84 97 12/01/23 20:00 108 H 18 132/78 97 12/01/23 19:55 108 H 18 120/80 97 12/01/23 18:27 110 H 18 130/79 97 12/01/23 18:00 116 H 18 130/79 95 12/01/23 17:00 129 H 18 145/96 97 12/01/23 16:01 133 H 18 146/116 97 12/01/23 15:43 97.8 F 134 H 22 147/86 98 Intake and Output 12/01/23 12/02/23 12/02/23 22:59 06:59 14:59 Intake Total 49.784 Output Total 100 Balance -50.216 Intake: Intake, IV Titration 49.784 Amount Heparin Sod,Pork in 0.45% 49.784 NaCl 25,000 unit In 0.45 % NaCl 1 250ml.bag @ 12 UNITS/KG/HR 7.62 mls/hr IV .Q24H [facility] Rx#: [id number] Output: Urine 100 Other: Voiding Method External Catheter Weight 63.503 kg 63.503 kg Results 12/01/23 17:11 12/01/23 17:11 Cardiac Enzymes 12/01/23 12/01/23 12/01/23 Range/Units 17:11 17:11 20:31 AST 43 H (14-36) U/L Troponin I 0.111 H* 0.169 H* (0.000-0.034) ng/mL 12/02/23 Range/Units 00:10 AST (14-36) U/L Troponin I 0.240 H* (0.000-0.034) ng/mL Coagulation 12/01/23 12/02/23 Range/Units 17:11 00:10 PT 10.5 (10.0-12.5) sec APTT 24.0 31.3 H (22.0-30.0) sec CBC 12/01/23 Range/Units 17:11 WBC 5.7 (3.8-10.6) k/uL RBC 3.73 L (3.80-5.40) m/uL Hgb 9.2 L (11.4-16.0) gm/dL Hct 29.5 L (34.0-46.0) % Plt Count 393 (150-450) k/uL Comprehensive Metabolic Panel 12/01/23 Range/Units 17:11 Sodium 138 (137-145) mmol/L Potassium 5.3 H (3.5-5.1) mmol/L Chloride 107 (98-107) mmol/L Carbon Dioxide 20 L (22-30) mmol/L BUN 39 H (7-17) mg/dL Creatinine 1.59 H (0.52-1.04) mg/dL Glucose 217 H (74-99) mg/dL Calcium 8.9 (8.4-10.2) mg/dL AST 43 H (14-36) U/L ALT 20 (4-34) U/L Alkaline Phosphatase 96 (38-126) U/L Total Protein 8.9 H (6.3-8.2) g/dL Albumin 4.1 (3.5-5.0) g/dL Current Medications Generic Name Dose Route Start Last Admin Trade Name Freq PRN Reason Stop Dose Admin Apixaban 2.5 mg 12/02/23 09:00 Apixaban 2.5 Mg Tablet PO BID [facility] Protocol Aspirin 325 mg 12/02/23 09:00 Aspirin 325 Mg Tab PO DAILY [facility] Atorvastatin Calcium 20 mg 12/02/23 09:00 Atorvastatin 20 Mg Tab PO DAILY [facility] Clopidogrel Bisulfate 75 mg 12/02/23 09:00 Clopidogrel 75 Mg Tab PO DAILY [facility] Furosemide 40 mg 12/02/23 09:00 Furosemide 40 Mg Tab PO DAILY [facility] Heparin Sodium (Porcine) 0 unit 12/02/23 01:00 12/02/23 01:16 Heparin Sodium 1,000 Un/Ml (10ml Vl) IV 3,200 unit PER PROTOCOL PRN Administration Low PTT Protocol Diltiazem HCl 125 mg/ Sodium 125 mls @ 5 mls/hr 12/01/23 17:30 12/01/23 17:35 Chloride IV 5 mg/hr .Q24H [facility] 5 mls/hr Administration 5 MG/HR Heparin Sodium/Sodium Chloride 250 mls @ 7.62 mls/hr 12/01/23 18:00 12/02/23 00:51 25,000 unit/ Sodium Chloride IV 15 units/kg/hr .Q24H [facility] 9.525 mls/hr Titration Protocol 12 UNITS/KG/HR Insulin Aspart 0 unit 12/02/23 07:30 12/02/23 06:35 Insulin Aspart (Novolog) 100 Unit/Ml Vial SQ Not Given ACHS [facility] Protocol Levothyroxine Sodium 25 mcg 12/02/23 06:30 12/02/23 06:41 Levothyroxine 25 Mcg Tab PO 25 mcg DAILY@0630 [facility] Administration Metoprolol Tartrate 75 mg 12/01/23 22:00 12/01/23 22:57 Metoprolol Tartrate 25 Mg Tab PO 75 mg TID [facility] Administration Nitroglycerin 0.4 mg 12/01/23 19:49 Nitroglycerin Sl Tabs 0.4 Mg Tab SUBLINGUAL Q5M PRN Chest Pain Nitroglycerin 1 inch 12/02/23 00:00 12/02/23 06:41 Nitroglycerin Oint 1 Inch/Gm Packet TOPICAL Not Given Q6HR [facility] Psyllium Hydrophilic Mucilloid 3 gm 12/02/23 09:00 Psyllium Husk 100% 6 Gm Packet PO BID [facility] Tamsulosin HCl 0.4 mg 12/02/23 08:30 Tamsulosin 0.4 Mg Cap.Er.24h PO PC-BRKFST [facility] Verapamil HCl 40 mg 12/01/23 22:00 12/01/23 22:57 Verapamil 40 Mg Tab PO 40 mg TID [facility] Administration Intake and Output 12/01/23 12/02/23 12/02/23 22:59 06:59 14:59 Intake Total 49.784 Output Total 100 Balance -50.216 Intake: Intake, IV Titration 49.784 Amount Heparin Sod,Pork in 0.45% 49.784 NaCl 25,000 unit In 0.45 % NaCl 1 250ml.bag @ 12 UNITS/KG/HR 7.62 mls/hr IV .Q24H [facility] Rx#: [id number] Output: Urine 100 Other: Voiding Method External Catheter Weight 63.503 kg 63.503 kg 12/01/23 17:11 12/01/23 17:11
[2023-12-02 11:22] LABS: Glucose,Whole Blood 146 mg/dL (70-110)
[2023-12-02 11:32] LABS: LDL Cholesterol,Calculated 69.1 mg/dL (0.0-131.0); VLDL Calculation 16.94 mg/dL (5.00-40.00)
[2023-12-02] MEDS: APIXABAN 2.5 MG TABLET PO SCH (15:49)
[2023-12-02 16:45] LABS: Glucose,Whole Blood 188 mg/dL (70-110)
[2023-12-02 20:19] LABS: Glucose,Whole Blood 232 mg/dL (70-110)
--- NOTE | 2023-12-03 06:07 | P.PN ---
Subjective Progress Note Date: 12/02/23 HISTORY OF PRESENT ILLNESS: 83-year-old for office patient with past medical history of Paroxysmal atrial fibrillation was on anticoagulation, history of hypertension, hyperli pidemia, stage III chronic kidney disease, chronic diastolic congestive heart failure, who also had recently history of non-ST ID with heart cath showed CAD including left main at 80% stenosis with mild LAD at 60 to 70% stenosis with circumflex 100% stenosis ended up having PCI of the left main and LAD, patient had multiple visits to the emergency department last few months with recurrent A-fib with RVR with similar claimed that she ran out of medication, she stopped taking medication a week ago, and many other. Sadly since her angioplasty and stent placement and the harm of not being on dual antiplatelet agent and her current medications extremely dangerous despite explaining this to the patient it looks like this event keep happening. She presented to the emergency department today complaining of worsening shortness of breath with rapid pulse and slight tightness and pressure on the c hest with recurrent palpitation with nausea feeling she apparently had what seems like upper respiratory infection recently had a clear with temperature was borderline at the time she denies any recurrent abdominal pain or any GI symptoms. Her pulse was running at 130 bpm irregular was found to be in A-fib with RVR again her excuse is that she ran out of medication a week ago and not taking any medication since. She was started in emergency department on Cardizem drip Laboratory value showed mild anemia better than what she had in October, slight electrolyte imbalance with kidney function the same level, her blood sugar is mildly elevated with troponin at 0.11. Chest x-ray showed no acute radiographic process, EKG at the emergency department showed atrial fibrillation with rapid ventricular response with pulse of 137 bpm. Again after starting medication the Cardizem drip initially and was started on heparin drip patient cough started coming down gradually. Patient will be admitted to the hospital with see cardiology elevated troponin level she had a heart cath not too long ago whether this is troponin leak or related to type II NSTEMI again this to be determined. 12/02/2023: Patient hospitalized last night with A-fib with RVR troponin was elevated slightly but higher since keep in mind with stent she had recently if she patient has been off dual antiplatelet agent might create more thrombus and blockage inside the stent were done from last time. Fortunately no major change in EKG yesterday with exception of A-fib with RVR repeat another EKG probably resting and see if there is any change consistently before. Meanwhile patient is slightly hemodynamically more stable. When stressing patient out on her medication and running out her answer that she is in between primary care physician not been able to find someone to renew her medication on time mostly why she ran out not trying to be noncompliance of taking medication per se. Also patient has not been seen in our office but she was seen in [facility] after her hospitalization in October was supposed to make an appointment to come back to the office which she never did. Will try to austyn lize things here especially if patient is safe of leaving the hospital and does not require any intervention specially if her troponin is plateauing cardiology feel no repeat heart cath is needed for now we will try to get her back to the office within the next week or so to get reestablished make sure her medication are refillable and refill on time from your home. REVIEW OF SYSTEMS: CONSTITUTIONAL: Well-developed in mild respiratory distress. EYES: No icterus sclerae, no conjunctivitis. EARS, NOSE, MOUTH, THROAT, and FACE: No sore throat, lymphadenopathy, carotid b ruits or deformity. RESPIRATORY: Mild shortness of breath and dyspnea with no cough or wheezes. CARDIOVASCULAR: Positive palpitation and A-fib with no angina positive PND and orthopnea. GASTROINTESTINAL: No Abd pain, Nausea or vomiting, no Diarrhea or constipation, No GI Bleed, no distention or masses. GENITOURINARY: Negative for Hematuria or UTI, no kidney stones. INTEGUMENT/BREAST: Negative for any muscular injury with mild osteoarthritis.. HEMATOLOGIC/LYMPHATIC: Negative for bleed or purpura. MUSCULOSKELTAL: Negative for Myalgia or arthralgia. NEURLOGICAL: No LOC, Sz or syncope, blurred vision dizziness or abnormality.. BEHAVIORAL/PSYCH: Negative. ENDOCRINE: Negative. PHYSICAL EXAMINATION: General Appearance: Alert, cooperative, mild distress. Neck HEENT: Supple, no lymphadenopathy, no thyroid enlargement, no carotid bruits. Lungs: Decreased expansion bilaterally with fine rhonchi positive mild rhonchi but no wheezes. Chest Wall: Decreased expansion with deep inspiration no tenderness and no deformity was found on exam, no costochondral pain or discomfort. Heart: Irregular rate and rhythm, S1, S2 positive severe tachycardia positive ejection murmur. Back: Symmetric, no curvature, ROM normal, no CVA tenderness. Abdomen: Soft, non-tender, bowel sounds active all four quadrants, no masses, no organomegaly. Extremities: Trace edema without cyanotic. Pulses: 2+ and symmetric. Skin: Skin color, texture, tugor normal, no rashes or lesions. Neurologic: Alert oriented with slight confusion. Cranial nerves II through XII intact, no motor deficit, no abnormal balance or gait. ASSESSMENT AND PLAN: _A-fib with RVR: She is not rapid anymore back on her medication Being on verapamil 40 mg 3 times daily and the metoprolol titrate 75 mg 3 times a day furthermore I think patient would benefit from probably switching to metoprolol succinate 100 mg daily and verapamil SR 120 mg daily. Further plan can be run by cardiology and if agreed will continue on after her discharge. _Non-ST ID: Troponin is elevated she had recent non-ST ID with three-vessel blockage she had 2 angioplasty and stent placement was on secondary prevention with dual antiplatelet agent, statin and beta-nereyda. Even with a slightly elevated troponin cardiology do not believe this is needed any recatheterization at this point. _Atherosclerotic heart disease: Post PCI and stent placement from October has been seeing cardiology she needs more assurance probably family need to be more involved making sure she is taking her medication on time and that she does not run out of medication. No chest pain or angina stable and doing well. _Type 2 diabetes: Has been doing well resume insulin with sliding scale coverage blood sugars mildly elevated being on medication regular basis will be helpful and beneficial. _Hypertension: Still on verapamil 40 mg 3 times a day along with blood pressure 75 mg twice a day continue medication. _Hyperlipidemia: Continue atorvastatin 20 mg a day. _Chronic anemia: With hemoglobin running in the 8-9 level with patient being on dual antiplatelet agent along with Eliquis probably would not help will add to her regime at least PPI with Protonix 40 mg daily. _Hypothyroidism: Continue levothyroxine 25 mcg daily. Discharge planning: Will keep patient next 24 hours in the hospital if she is stable and doing well and no further episode of A-fib no peak on her troponin require any further attention patient might be able to go home tomorrow. Objective - Vital Signs Vital signs: Vital Signs Temp 98 F 12/02/23 04:00 Pulse 85 12/02/23 04:00 Resp 16 12/02/23 04:00 BP 137/72 12/02/23 04:00 Pulse Ox 94 L 12/02/23 04:00 FiO2 Intake & Output 12/01/23 12/01/23 12/02/23 06:59 18:59 06:59 Intake Total 49.784 Output Total 100 Balance -50.216 Weight 63.503 kg 63.503 kg Intake: Intake, IV Titration 49.784 Amount Heparin Sod,Pork in 0.45% 49.784 NaCl 25,000 unit In 0.45 % NaCl 1 250ml.bag @ 12 UNITS/KG/HR 7.62 mls/hr IV .Q24H [facility] Rx#: [id number] Output: Urine 100 Other: Voiding Method External Catheter - Labs CBC & Chem 7: 12/01/23 17:11 12/01/23 17:11 Labs: Abnormal Lab Results - Last 24 Hours (Table) 12/01/23 12/01/23 12/01/23 Range/Units 17:11 17:11 17:11 RBC 3.73 L (3.80-5.40) m/uL Hgb 9.2 L (11.4-16.0) gm/dL Hct 29.5 L (34.0-46.0) % MCV 79.1 L (80.0-100.0) fL MCH 24.6 L (25.0-35.0) pg RDW 16.6 H (11.5-15.5) % Lymphocytes # 0.8 L (1.0-4.8) k/uL APTT (22.0-30.0) sec Potassium 5.3 H (3.5-5.1) mmol/L Carbon Dioxide 20 L (22-30) mmol/L BUN 39 H (7-17) mg/dL Creatinine 1.59 H (0.52-1.04) mg/dL Glucose 217 H (74-99) mg/dL AST 43 H (14-36) U/L Troponin I 0.111 H* (0.000-0.034) ng/mL Total Protein 8.9 H (6.3-8.2) g/dL 12/01/23 12/02/23 12/02/23 Range/Units 20:31 00:10 00:10 RBC (3.80-5.40) m/uL Hgb (11.4-16.0) gm/dL Hct (34.0-46.0) % MCV (80.0-100.0) fL MCH (25.0-35.0) pg RDW (11.5-15.5) % Lymphocytes # (1.0-4.8) k/uL APTT 31.3 H (22.0-30.0) sec Potassium (3.5-5.1) mmol/L Carbon Dioxide (22-30) mmol/L BUN (7-17) mg/dL Creatinine (0.52-1.04) mg/dL Glucose (74-99) mg/dL AST (14-36) U/L Troponin I 0.169 H* 0.240 H* (0.000-0.034) ng/mL Total Protein (6.3-8.2) g/dL
[2023-12-03 06:17] VITALS: TEMP 97.8
[2023-12-03 06:19] LABS: Glucose,Whole Blood 119 mg/dL (70-110)
[2023-12-03 08:34] VITALS: RESP 16
[2023-12-03 11:39] LABS: Glucose,Whole Blood 181 mg/dL (70-110)
[2023-12-03 14:21] VITALS: BP 117/56; PULSE 85
[2023-12-03] MEDS ORDERED: ISOSORBIDE MONONITRATE ER 15 MG TAB PO SCH (15:30)
--- NOTE | 2023-12-03 17:23 | P.PN ---
Subjective Progress Note Date: 12/03/23 HISTORY OF PRESENT ILLNESS: This is a 83-year-old female with a past medical history significant for co ronary artery disease, hypertension, hyperlipidemia, chronic lower extremity edema, and paroxysmal atrial fibrillation. Patient follows in the office with Dr. Mosley. We have been asked to see the patient in consultation for A-fib with RVR. Patient examined at the bedside. Patient presented to the hospital with a chief complaint of shortness of breath with exertion and palpitations. Patient was found to be in A-fib with RVR. She was started on IV Cardizem. She remains in atrial fibrillation this morning with controlled ventricular rate. She denies any chest pain or pressure. Apparently the patient has not been taking her medications recently and states that she ran out of them. DIAGNOSTICS: - EKG reveals atrial fibrillation with RVR. - Chest xray negative for acute process. - Laboratory data: WBC 5.7. Hemoglobin 9.2. Platelet count 393. Sodium 138. Potassium 5.3. BUN 39. Creatinine 1.59. Troponin 0.111. 0.069. 0.240. - Current home cardiac medications include Plavix 75 mg daily, Eliquis 2.5 mg twice a day, Lipitor 20 mg daily, Lasix 40 mg daily, metoprolol tartrate 75 mg 3 times a day, add verapamil 40 mg 3 times a day. - Most recent echocardiogram obtained in 07/2023 revealing ejection fraction 55 to 60%, mild pulm hypertension,, mild to moderate MR, mild to moderate TR - Cardiac catheterization history: September 2023 revealing left main 80% stenosis, mid LAD 60 to 70% stenosis, circumflex 100% stenosis. Patient underwent PCI of left main into LAD. Progress note 12/03/2023 Seen and examined at bedside this a.m. Doing well denies having any active chest pain chest pressure today. Still reports getting short of breath if she walks. Blood pressure is better controlled. PHYSICAL EXAM: VITAL SIGNS: Reviewed. GENERAL: Well-developed in no acute distress. HEENT: Head is normocephalic. Pupils are equal, round. Sclerae anicteric. Mucous membranes of the mouth are moist. Neck supple. No JVD or thyromegaly LUNGS: Respirations even and unlabored. Lungs essentially clear to auscultation bilaterally. HEART: Irregular rate and rhythm. S1 and S2 heard. ABDOMEN: Soft. Nondistended. Nontender. EXTREMITIES: Normal range of motion. No clubbing or cyanosis. Peripheral pulses intact. No lower extremity edema NEUROLOGIC: Awake and alert. Oriented x 3. ASSESSMENT: Shortness of breath with exertion Paroxysmal atrial fibrillation Elevated troponins, suspect type II MD Coronary artery disease with recent stenting of left main into LAD, 09/2023 Chronic heart failure with preserved ejection fraction, 55 to 60% Hypertension Hyperlipidemia Chronic kidney disease Medication noncompliance PLAN: Continue Plavix, Eliquis Change metoprolol to metoprolol succinate 200 mg daily Change verapamil to verapamil sustained-release 120 mg daily Added Imdur 15 mg daily. If patient continues to have further chest pain may consider adding Ranexa Continue Lasix 40 mg daily She is would benefit from an outpatient follow-up with Dr. Mosley. Her last cardiac catheterization she had residual disease which was difficult for intervention [place]. Okay to be discharged from cardiovascular standpoint. There is also concerns about possible noncompliance to patient's medication. We have tried to explain the patient her medications in detail and have tried to simplified her home medications. Objective - Vital Signs Vital signs: Vital Signs Temp 97.8 F 12/03/23 04:00 Pulse 85 12/03/23 12:00 Resp 16 12/03/23 12:00 BP 117/56 12/03/23 12:00 Pulse Ox 95 12/03/23 12:00 FiO2 Intake & Output 12/02/23 12/03/23 12/03/23 18:59 06:59 18:59 Intake Total 540 236 Output Total 608 866 9235 Balance -410 700 864 Intake: Oral 540 236 Output: Urine 688 [id number] [id number] Other: Voiding Method External Catheter External Catheter External Catheter # Voids 2 - Labs CBC & Chem 7: 12/01/23 17:11 12/01/23 17:11 Labs: Abnormal Lab Results - Last 24 Hours (Table) 12/02/23 12/03/23 12/03/23 Range/Units 20:17 06:18 11:37 POC Glucose (mg/dL) 232 H 119 H 181 H (70-110) mg/dL
[2023-12-04] MEDS ORDERED: METOPROLOL SUCCINATE (ER) 100 MG TAB.ER.24H PO SCH (09:00)
== END 2023-12-03 16:46 | disposition home or self-care (01) | DRG 281 ==
LOC: EC 15:31 → 3SCARD 19:53
PROVIDERS: ADMIT Internal Medicine Geriatric Medicine; ATTEND Internal Medicine Geriatric Medicine
PROC: 3E033RZ Introduction of Antiarrhythmic into Peripheral Vein, Percutaneous Approach (ICD-10-PCS; principal; 2023-12-01)
DX: I48.0 Paroxysmal atrial fibrillation (principal); I21.A1 Myocardial infarction type 2; I13.0 Hypertensive heart and chronic kidney disease with heart failure and stage 1 through stage 4 chronic kidney disease, or unspecified chronic kidney disease; I50.32 Chronic diastolic (congestive) heart failure; N18.30 Chronic kidney disease, stage 3 unspecified; I25.10 Atherosclerotic heart disease of native coronary artery without angina pectoris; E78.5 Hyperlipidemia, unspecified; E11.22 Type 2 diabetes mellitus with diabetic chronic kidney disease; R32 Unspecified urinary incontinence; I27.20 Pulmonary hypertension, unspecified; I08.1 Rheumatic disorders of both mitral and tricuspid valves; D63.1 Anemia in chronic kidney disease; T50.916A Underdosing of multiple unspecified drugs, medicaments and biological substances, initial encounter; Z91.148 Patient's other noncompliance with medication regimen for other reason; M19.90 Unspecified osteoarthritis, unspecified site; E03.9 Hypothyroidism, unspecified; Z79.01 Long term (current) use of anticoagulants; Z85.42 Personal history of malignant neoplasm of other parts of uterus; Z95.5 Presence of coronary angioplasty implant and graft; Z79.899 Other long term (current) drug therapy; Z79.890 Hormone replacement therapy; Z79.02 Long term (current) use of antithrombotics/antiplatelets; I25.2 Old myocardial infarction; Z88.1 Allergy status to other antibiotic agents; Z88.6 Allergy status to analgesic agent
CPT/HCPCS: 36415; 71046; 80053; 80061; 83735; 84484; 85025; 85610; 85730; 93005; 96365; 96366; 96368; 99291

== ENCOUNTER 2024-03-04 15:31 | Inpatient (IN) | payer MEDICARE ==
--- NOTE | 2024-03-04 15:47 | ED ---
General Adult HPI - General Chief complaint: Dizziness Stated complaint: Fall/weakness Time Seen by Provider: 03/04/24 15:33 Source: patient, EMS Mode of arrival: EMS - History of Present Illness Initial comments: Patient is an 83-year-old woman who arrives to have evaluation for generalized weakness and fatigue. She is also having lightheadedness when she is upright. Patient states when she checks her blood pressure at home and has been low. The symptoms have been getting worse for the past 2 or 3 days. She states that this morning she was not able to get up and get around because she was feeling like she would fall over. Onset/Timin -: days(s) Severity scale (1-10): 0 Improves with: none Worsens with: none Associated Symptoms: loss of appetite, weakness Treatments Prior to Arrival: none - Related Data Home Medications Medication Instructions Recorded Confirmed Cetirizine HCl [Zyrtec] 10 mg PO DAILY PRN 03/04/24 03/22/24 Empagliflozin [Jardiance] 10 mg PO HS 03/04/24 03/22/24 Isosorbide Mononitrate ER [Imdur] 15 mg PO DAILY 03/04/24 03/22/24 Midodrine [ProAmatine] 5 mg PO TID 03/04/24 03/22/24 Semaglutide [Rybelsus] 7 mg PO DAILY 03/04/24 03/22/24 Verapamil Sr [Isoptin Sr] 120 mg PO DAILY 03/04/24 03/22/24 diphenhydrAMINE HCL [Benadryl] 50 mg PO DAILY PRN 03/04/24 03/22/24 Albuterol Inhaler [Ventolin Hfa 2 puff INHALATION RT-Q6H PRN 03/22/24 03/22/24 Inhaler] Previous Rx's Medication Instructions Recorded Atorvastatin [Lipitor] 20 mg PO DAILY #30 tab 12/03/23 Levothyroxine Sodium 25 mcg PO DAILY #30 tab 12/03/23 Acetaminophen Tab [Tylenol] 500 mg PO Q6HR PRN tab 03/16/24 Aspirin 81 mg PO DAILY tab 03/16/24 Benzonatate [Tessalon Perle] 200 mg PO AC-TID #60 capsule 03/16/24 Sodium Bicarbonate Tab 650 mg PO DAILY #30 tab 03/16/24 Metoprolol Succinate (ER) [Toprol 50 mg PO HS tab 03/28/24 XL] Pantoprazole Sodium [Protonix] 40 mg PO BID 30 Days #60 tab 03/28/24 cefUROXime axetiL [Cefuroxime] 500 mg PO BID 3 Days #6 tab 03/28/24 Allergies Allergy/AdvReac Type Severity Reaction Status Date / Time bacitracin Allergy Rash/Hives Verified 03/22/24 10:54 [From Neosporin ([id number])] ibuprofen Allergy Anaphylaxis Verified 03/22/24 10:54 & Rash all over neomycin Allergy Rash/Hives Verified 03/22/24 10:54 [From Neosporin ([id number])] polymyxin B Allergy Rash/Hives Verified 03/22/24 10:54 [From Neosporin ([id number])] Review of Systems ROS Statement: Those systems with pertinent positive or pertinent negative responses have been documented in the HPI. ROS Other: All systems not noted in ROS Statement are negative. Constitutional: Reports: weakness. Denies: fever, chills Eyes: Denies: vision change Respiratory: Denies: cough, dyspnea Cardiovascular: Reports: edema (Chronic). Denies: chest pain, palpitations Gastrointestinal: Denies: abdominal pain, nausea, vomiting, diarrhea Genitourinary: Denies: dysuria, hematuria Musculoskeletal: Denies: back pain Skin: Denies: rash Neurological: Denies: headache, weakness, numbness Past Medical History Past Medical History: Atrial Fibrillation, Diabetes Mellitus, Hypertension, Osteoarthritis (OA) Additional Past Medical History / Comment(s): uterine cancer, incontinent of urine History of Any Multi-Drug Resistant Organisms: None Reported Past Surgical History: No Surgical Hx Reported Additional Past Surgical History / Comment(s): cataract & carpal-tunnel bilat. Past Anesthesia/Blood Transfusion Reactions: No Reported Reaction Past Psychological History: No Psychological Hx Reported Smoking Status: Never smoker Past Alcohol Use History: None Reported Past Drug Use History: None Reported - Past Family History Mother Family Medical History: Coronary Artery Disease (CAD), Diabetes Mellitus, Hypertension, Mitral Valve Prolapse (MVP) Father Family Medical History: Hypertension Additional Family Medical History / Comment(s): father hip surgery General Exam General appearance: alert, in no apparent distress Head exam: Present: atraumatic, normocephalic Eye exam: Present: normal appearance. Absent: scleral icterus, conjunctival in jection ENT exam: Present: mucous membranes dry Neck exam: Present: normal inspection, full ROM Respiratory exam: Present: normal lung sounds bilaterally. Absent: respiratory distress, wheezes, rales, rhonchi, stridor, accessory muscle use Cardiovascular Exam: Present: regular rate, normal rhythm, normal heart sounds. Absent: systolic murmur, diastolic murmur, rubs, gallop GI/Abdominal exam: Present: soft. Absent: distended, tenderness, guarding, rebound, rigid, mass Extremities exam: Present: normal inspection, normal capillary refill, pedal edema. Absent: calf tenderness Back exam: Present: normal inspection Neurological exam: Present: alert Skin exam: Present: warm, dry, intact, normal color. Absent: rash Course Vital Signs 03/04/24 03/04/24 03/04/24 15:32 17:11 18:10 Temperature 97.7 F Pulse Rate 94 86 85 Respiratory 20 18 14 Rate Blood Pressure 84/60 97/63 68/41 O2 Sat by Pulse 99 99 95 Oximetry 03/04/24 03/04/24 03/04/24 18:40 18:50 19:00 Temperature Pulse Rate 89 85 93 Respiratory 10 L 10 L 10 L Rate Blood Pressure 84/50 86/41 86/41 O2 Sat by Pulse 100 98 97 Oximetry 03/04/24 03/04/24 03/04/24 19:10 19:20 19:30 Temperature Pulse Rate 87 89 86 Respiratory 12 13 12 Rate Blood Pressure 63/48 76/53 76/53 O2 Sat by Pulse 100 96 79 L Oximetry 03/04/24 03/04/24 03/04/24 19:40 19:50 20:00 Temperature Pulse Rate 99 102 H 91 Respiratory 8 L 5 L 7 L Rate Blood Pressure 79/41 78/50 78/50 O2 Sat by Pulse 100 99 100 Oximetry 03/04/24 03/04/24 03/04/24 20:10 20:20 20:30 Temperature Pulse Rate 92 89 99 Respiratory 19 8 L 11 L Rate Blood Pressure 81/41 77/58 77/58 O2 Sat by Pulse 100 97 97 Oximetry 03/04/24 03/04/24 03/04/24 20:40 20:50 21:00 Temperature Pulse Rate 94 101 H 102 H Respiratory 13 10 L 18 Rate Blood Pressure 77/47 76/42 76/42 O2 Sat by Pulse 98 100 100 Oximetry 03/04/24 03/04/24 03/04/24 21:10 21:21 21:30 Temperature Pulse Rate 95 100 98 Respiratory 15 10 L 17 Rate Blood Pressure 85/61 99/50 99/50 O2 Sat by Pulse 98 100 97 Oximetry 03/04/24 03/04/24 03/04/24 21:40 21:50 22:00 Temperature Pulse Rate 102 H 99 109 H Respiratory 9 L 11 L 15 Rate Blood Pressure 76/46 77/51 77/51 O2 Sat by Pulse 100 99 100 Oximetry 03/04/24 03/04/24 03/04/24 22:10 22:20 22:30 Temperature Pulse Rate 111 H 97 120 H Respiratory 11 L 7 L 17 Rate Blood Pressure 89/55 84/50 84/50 O2 Sat by Pulse 91 L 98 Oximetry 03/04/24 03/04/24 03/04/24 22:40 22:50 23:00 Temperature Pulse Rate 102 H 97 107 H Respiratory 8 L 8 L 12 Rate Blood Pressure 82/60 80/50 80/50 O2 Sat by Pulse 100 100 100 Oximetry 03/04/24 03/04/24 03/04/24 23:10 23:20 23:21 Temperature Pulse Rate 110 H 108 H 102 H Respiratory 13 16 18 Rate Blood Pressure 84/49 91/55 91/55 O2 Sat by Pulse 100 95 100 Oximetry 03/04/24 23:30 Temperature Pulse Rate Respiratory Rate Blood Pressure 91/55 O2 Sat by Pulse Oximetry Medical Decision Making - Medical Decision Making The patient had CT scan of the brain that I interpreted as negative for acute intracranial hemorrhage or acute bony injury The patient had chest x-ray which I interpreted as negative for acute infiltrate, pneumothorax, congestive heart failure His ECG does show diffuse anterior, or ST depressions which were concerning and this was discussed with Dr. Mcelroy, believes is probably related to patient's hypotension. The patient not giving symptoms typical of acute coronary syndrome at this point. Patient is given multiple boluses with reassessments in between due to the h istory of congestive heart failure, the patient's leg edema, the patient's elevated BNP. Patient did remain somewhat hypotensive however her lactic acid did clear. The patient mentating well throughout. Was pt. sent in by a medical professional or institution (MISAEL Duron, TELEPHONE ASSEMBLER, urgent care, hospital, or assisted...) When possible be specific @ -[No] Did you speak to anyone other than the patient for history (EMS, parent, family, police, friend...)? What history was obtained from this source @ -[No] Did you review nursing and triage notes (agree or disagree)? Why? @ -[I reviewed and agree with nursing and triage notes] Were old charts reviewed (outside hosp., previous admission, EMS record, old EKG, old radiological studies, urgent care reports/EKG's, assisted records)? Report findings @ -[No old charts were reviewed] Differential Diagnosis (chest pain, altered mental status, abdominal pain women, abdominal pain men, vaginal bleeding, weakness, fever, dyspnea, syncope, hea dache, dizziness, GI bleed, back pain, seizure, CVA, palpatations, mental health, musculoskeletal)? @ -[not applicable] EKG interpreted by me (3pts min.). @ -[I interpreted as above] X-rays interpreted by me (1pt min.). @ -[I interpreted as above CT interpreted by me (1pt min.). @ -[I interpreted as above U/S interpreted by me (1pt. min.). @ -[None done] What testing was considered but not performed or refused? (CT, X-rays, U/S, labs)? Why? @ -[None] What meds were considered but not given or refused? Why? @ -[None] Did you discuss the management of the patient with other professionals (professionals i.e. MISAEL Duron, TELEPHONE ASSEMBLER, lab, RT, psych nurse, high school social studies teacher, rolling mill operator, teacher, infantry officer, case finisher)? Give summary @ -[Case discussed with the admitting physician as well as cardiology as per above Was smoking cessation discussed for >3mins.? @ -[No] Was critical care preformed (if so, how long)? @ -[Yes, 35 minutes Were there social determinants of health that impacted care today? How? (Homelessness, low income, unemployed, alcoholism, drug addiction, transportation, low edu. Level, literacy, decrease access to med. care, long-term, rehab)? @ -[No] Was there de-escalation of care discussed even if they declined (Discuss DNR or withdrawal of care, Hospice)? DNR status @ -[No] What co-morbidities impacted this encounter? (DM, HTN, Smoking, COPD, CAD, Cancer, CVA, ARF, Chemo, Hep., AIDS, mental health diagnosis, sleep apnea, morbid obesity)? @ -[History of congestive heart failure Was patient admitted / discharged? Hospital course, mention meds given and route, prescriptions, significant lab abnormalities, going to OR and other pertinent info. @ -[See the notes above, patient admitted to have further treatment related to her conditions as well as consultation. Undiagnosed new problem with uncertain prognosis? @ -[No] Drug Therapy requiring intensive monitoring for toxicity (Heparin, Nitro, Insulin, Cardizem)? @ -[No] Were any procedures done? @ -[No] Diagnosis/symptom? @ -[Acute kidney injury Urinary tract infection Cellulitis Hypotension History of congestive heart failure Acute, or Chronic, or Acute on Chronic? @ -[Acute Uncomplicated (without systemic symptoms) or Complicated (systemic symptoms)? @ -[Complicated by hypotension Side effects of treatment? @ -[No] Exacerbation, Progression, or Severe Exacerbation? @ -[No] Poses a threat to life or bodily function? How? (Chest pain, USA, DC, pneumonia, PE, COPD, DKA, ARF, appy, cholecystitis, CVA, Diverticulitis, Homicidal, Suicidal, threat to staff... and all critical care pts) @ -[yes - Lab Data Result diagrams: 03/16/24 11:30 03/16/24 11:30 Lab Results 03/04/24 03/04/24 03/04/24 Range/Units 15:51 15:51 15:51 WBC 9.4 (3.8-10.6) k/uL RBC 3.60 L (3.80-5.40) m/uL Hgb 8.8 L (11.4-16.0) gm/dL Hct 28.7 L (34.0-46.0) % MCV 79.6 L (80.0-100.0) fL MCH 24.4 L (25.0-35.0) pg MCHC 30.6 L (31.0-37.0) g/dL RDW 18.3 H (11.5-15.5) % Plt Count 471 H (150-450) k/uL MPV 7.2 Neutrophils % 84 % Lymphocytes % 11 % Monocytes % 3 % Eosinophils % 0 % Basophils % 0 % Neutrophils # 7.8 H (1.3-7.7) k/uL Lymphocytes # 1.1 (1.0-4.8) k/uL Monocytes # 0.3 (0-1.0) k/uL Eosinophils # 0.0 (0-0.7) k/uL Basophils # 0.0 (0-0.2) k/uL Hypochromasia Slight Anisocytosis Slight Microcytosis Slight PT 12.0 (10.0-12.5) sec INR 1.1 (<1.2) APTT 25.4 (22.0-30.0) sec Sodium (137-145) mmol/L Potassium (3.5-5.1) mmol/L Chloride (98-107) mmol/L Carbon Dioxide (22-30) mmol/L Anion Gap mmol/L BUN (7-17) mg/dL Creatinine (0.52-1.04) mg/dL Est GFR (CKD-EPI)AfAm (>60 ml/min/1.73 sqM) Est GFR (CKD-EPI)NonAf (>60 ml/min/1.73 sqM) Glucose (74-99) mg/dL POC Glucose (mg/dL) (70-110) mg/dL POC Glu [place] Hacker ID Lactic Ac Sepsis Rflx Plasma Lactic Acid Jose L (0.7-2.0) mmol/L Calcium (8.4-10.2) mg/dL Magnesium (1.6-2.3) mg/dL Total Bilirubin (0.2-1.3) mg/dL AST (14-36) U/L ALT (4-34) U/L Alkaline Phosphatase (38-126) U/L Troponin I (0.000-0.034) ng/mL NT-Pro-B Natriuret Pep pg/mL Total Protein (6.3-8.2) g/dL Albumin (3.5-5.0) g/dL Urine Color Red Urine Appearance Cloudy H (Clear) Urine RBC >182 H (0-5) /hpf Urine WBC >182 H (0-5) /hpf 03/04/24 03/04/24 03/04/24 Range/Units 15:51 15:51 15:51 WBC (3.8-10.6) k/uL RBC (3.80-5.40) m/uL Hgb (11.4-16.0) gm/dL Hct (34.0-46.0) % MCV (80.0-100.0) fL MCH (25.0-35.0) pg MCHC (31.0-37.0) g/dL RDW (11.5-15.5) % Plt Count (150-450) k/uL MPV Neutrophils % % Lymphocytes % % Monocytes % % Eosinophils % % Basophils % % Neutrophils # (1.3-7.7) k/uL Lymphocytes # (1.0-4.8) k/uL Monocytes # (0-1.0) k/uL Eosinophils # (0-0.7) k/uL Basophils # (0-0.2) k/uL Hypochromasia Anisocytosis Microcytosis PT (10.0-12.5) sec INR (<1.2) APTT (22.0-30.0) sec Sodium 130 L (137-145) mmol/L Potassium 3.3 L (3.5-5.1) mmol/L Chloride 98 (98-107) mmol/L Carbon Dioxide 23 (22-30) mmol/L Anion Gap 9 mmol/L BUN 54 H (7-17) mg/dL Creatinine 2.72 H (0.52-1.04) mg/dL Est GFR (CKD-EPI)AfAm 18 (>60 ml/min/1.73 sqM) Est GFR (CKD-EPI)NonAf 16 (>60 ml/min/1.73 sqM) Glucose 275 H (74-99) mg/dL POC Glucose (mg/dL) (70-110) mg/dL POC Glu [place] Hacker ID Lactic Ac Sepsis Rflx Plasma Lactic Acid Jose L 3.1 H* (0.7-2.0) mmol/L Calcium 8.3 L (8.4-10.2) mg/dL Magnesium 2.2 (1.6-2.3) mg/dL Total Bilirubin 0.9 (0.2-1.3) mg/dL AST 21 (14-36) U/L ALT 14 (4-34) U/L Alkaline Phosphatase 92 (38-126) U/L Troponin I <0.012 (0.000-0.034) ng/mL NT-Pro-B Natriuret Pep 26011 pg/mL Total Protein 6.4 (6.3-8.2) g/dL Albumin 3.1 L (3.5-5.0) g/dL Urine Color Urine Appearance (Clear) Urine RBC (0-5) /hpf Urine WBC (0-5) /hpf 03/04/24 03/04/24 03/04/24 Range/Units 15:57 17:00 19:35 WBC (3.8-10.6) k/uL RBC (3.80-5.40) m/uL Hgb (11.4-16.0) gm/dL Hct (34.0-46.0) % MCV (80.0-100.0) fL MCH (25.0-35.0) pg MCHC (31.0-37.0) g/dL RDW (11.5-15.5) % Plt Count (150-450) k/uL MPV Neutrophils % % Lymphocytes % % Monocytes % % Eosinophils % % Basophils % % Neutrophils # (1.3-7.7) k/uL Lymphocytes # (1.0-4.8) k/uL Monocytes # (0-1.0) k/uL Eosinophils # (0-0.7) k/uL Basophils # (0-0.2) k/uL Hypochromasia Anisocytosis Microcytosis PT (10.0-12.5) sec INR (<1.2) APTT (22.0-30.0) sec Sodium (137-145) mmol/L Potassium (3.5-5.1) mmol/L Chloride (98-107) mmol/L Carbon Dioxide (22-30) mmol/L Anion Gap mmol/L BUN (7-17) mg/dL Creatinine (0.52-1.04) mg/dL Est GFR (CKD-EPI)AfAm (>60 ml/min/1.73 sqM) Est GFR (CKD-EPI)NonAf (>60 ml/min/1.73 sqM) Glucose (74-99) mg/dL POC Glucose (mg/dL) 309 H (70-110) mg/dL POC Glu [place] Hacker ID G[place]ito Greene Lactic Ac Sepsis Rflx Y Plasma Lactic Acid Jose L 1.7 (0.7-2.0) mmol/L Calcium (8.4-10.2) mg/dL Magnesium (1.6-2.3) mg/dL Total Bilirubin (0.2-1.3) mg/dL AST (14-36) U/L ALT (4-34) U/L Alkaline Phosphatase (38-126) U/L Troponin I (0.000-0.034) ng/mL NT-Pro-B Natriuret Pep pg/mL Total Protein (6.3-8.2) g/dL Albumin (3.5-5.0) g/dL Urine Color Urine Appearance (Clear) Urine RBC (0-5) /hpf Urine WBC (0-5) /hpf Disposition Clinical Impression: Urinary tract infection, Left leg cellulitis, Hypotension, Lactic acidosis, Anemia, Acute kidney injury Disposition: ADMITTED IP TO THIS HOSP Condition: Serious Is patient prescribed a controlled substance at d/c from ED?: No
[2024-03-04] MEDS: SODIUM CHLORIDE 0.9% 500 ML 250 ML IV STA (15:49)
[2024-03-04 16:00] LABS: Glucose,Whole Blood 309 mg/dL (70-110)
[2024-03-04] MEDS: ASPIRIN 81 MG PO STA (16:37)
[2024-03-04 16:38] LABS: INR 1.1 (<1.2); Partial Thromboplastin Time 25.4 sec (22.0-30.0)
[2024-03-04 16:42] LABS: Anisocytosis Slight; Basophils % (A) 0 %; Eosinophils % (A) 0 %; HCT 28.7 % (34.0-46.0); HGB 8.8 gm/dL (11.4-16.0); Hypochromasia Slight; Lymphocytes # (A) 1.1 k/uL (1.0-4.8); Lymphocytes % (A) 11 %; MCH 24.4 pg (25.0-35.0); MCHC 30.6 g/dL (31.0-37.0); MCV 79.6 fL (80.0-100.0); Mean Platelet Volume 7.2; Microcytosis Slight; Monocytes # (A) 0.3 k/uL (0-1.0); Monocytes % (A) 3 %; Neutrophils # (A) 7.8 k/uL (1.3-7.7); Neutrophils % (A) 84 %; Platelet Count 471 k/uL (150-450); RDW 18.3 % (11.5-15.5); WBC 9.4 k/uL (3.8-10.6)
[2024-03-04 16:48] LABS: ALT 14 U/L (4-34); AST 21 U/L (14-36); African American GFR (CKD) 18 (>60 ml/min/1.73 sqM); Albumin 3.1 g/dL (3.5-5.0); Alkaline Phosphatase 92 U/L (38-126); Anion Gap 9 mmol/L; Blood Urea Nitrogen 54 mg/dL (7-17); Calcium 8.3 mg/dL (8.4-10.2); Carbon Dioxide 23 mmol/L (22-30); Chloride 98 mmol/L (98-107); Glucose 275 mg/dL (74-99); Magnesium 2.2 mg/dL (1.6-2.3); Non-African American GFR(CKD) 16 (>60 ml/min/1.73 sqM); Potassium 3.3 mmol/L (3.5-5.1); Sodium 130 mmol/L (137-145); Total Bilirubin 0.9 mg/dL (0.2-1.3); Total Protein 6.4 g/dL (6.3-8.2)
[2024-03-04 16:56] LABS: NT-Pro-B-Type Natriuretic Pept 19900 pg/mL
--- NOTE | 2024-03-04 18:22 | XR ---
EXAM: XR chest 1V portable CLINICAL INDICATION:Female, 83 years old with history of weakness and hypotension; [facility] COMPARISON: 12/01/2023 TECHNIQUE: Chest single view. FINDINGS: Lines/tubes/devices: None. Cardiomediastinum: Cardiac silhouette appears upper normal in size. Atherosclerotic calcifications of the aorta with mild tortuosity. Vasculature: No increased pulmonary vasculature. Lungs/pleura: Lungs appear hyperinflated with interstitial coarsening, findings suggestive of COPD/emphysema. No consolidation, sizeable effusion, or visible pneumothorax. Bones/soft tissues: Bony thorax appears grossly intact as seen. Remote left ribs and likely clavicle deformities. IMPRESSION: No acute cardiopulmonary findings.
[2024-03-04 18:29] LABS: Appearance,Urine Cloudy (Clear); Color,Urine Red
[2024-03-04 18:36] LABS: RBC,Urine >182 /hpf (0-5); WBC,Urine >182 /hpf (0-5)
[2024-03-04] MEDS: SODIUM CHLORIDE 0.9% 500 ML 500 ML IV STA ×2 (18:44→20:54)
--- NOTE | 2024-03-04 19:06 | CT ---
EXAMINATION TYPE: CT brain wo con CT DLP: 1095.6 mGycm, Automated exposure control for dose reduction was used. DATE OF EXAM: 03/04/2024 5:44 PM COMPARISON: None.. CLINICAL INDICATION:Female, 83 years old with history of fall with head injury, Fall w/head injury. TECHNIQUE: Brain: Axial CT images of the brain were obtained with coronal and sagittal reformats created and rev iewed. Contrast used: None. Oral contrast used: None. FINDINGS: Extra-axial spaces: No abnormal extra-axial fluid collections. Basilar cisterns are patent. Ventricular system: Ventricles appear dilated in proportion to the degree of cerebral atrophy. Cerebral parenchyma: No increased attenuation to suggest acute intraparenchymal hemorrhage. The gra y-white matter interface appears maintained. Moderate to severe generalized brain atrophy. Scattere d hypoattenuating areas are seen within the cerebral white matter, nonspecific but most often seen wi th chronic microvascular ischemic changes; moderate in degree. Cerebellum: No acute abnormality. Mass effect: No evidence of mass effect or midline shift. Intracranial vasculature: Atherosclerotic calcifications of the larger arteries near the skull base. Soft tissues: No acute or concerning abnormality. Visualized orbits: Orbital contents appear grossly intact. Calvarium/osseous structures: No evidence of calvarial fracture. Paranasal sinuses and mastoid air cells: Clear. MRI is more sensitive for detecting acute processes such as infarct, and may be considered if clinica lly warranted. Other findings: The partially seen craniocervical junction appears intact. There are partially seen c hronic degenerative changes at the C1-C2 articulation anteriorly, with partially calcified retroperit muir soft tissue which can be related to CPPD. This appears to cause moderate anterior narrowing of the canal at this level, touching or nearly touching the anterior cord; recommend MRI C-spine for fur ther evaluation if indicated. IMPRESSION: 1. No CT evidence of an acute intracranial abnormality. 2. Atrophy and chronic microvascular ischemic white matter changes. 3. Incidental findings in the upper cervical spine detailed above.
[2024-03-04] MEDS ORDERED: NALOXONE 0.4 MG/ML 1 ML VIAL IV PRN (21:13)
[2024-03-04] MEDS: SODIUM CHLORIDE 0.9% 1,000 ML IV SCH (21:38)
[2024-03-04 23:32] LABS: Glucose,Whole Blood 158 mg/dL (70-110)
[2024-03-05] MEDS: NOREPINEPHRINE 32 MG in SODIUM CHLORIDE 0.9% 218 ML IV SCH (00:01)
--- NOTE | 2024-03-05 00:58 | P.CNPUL ---
History of Present Illness Consult date: 03/05/24 Requesting physician: Charly Sargent Reason for consult: other (Hypotension; ICU management) Chief complaint: Generalized weakness and fall History of present illness: Patient is a 83-year-old white female with past medical history significant for coronary artery disease with recent stent, valvular heart disease, atrial fibrillation anticoagulated on Eliquis, hypertension, diabetes mellitus, uterine cancer. Of note, patient had a recent hospitalization September, for non-ST elevation [place] and received a stent to the LAD. Patient presented to emergency room yesterday afternoon with a chief complaint of generalized weakness and fatigue and she had a fall. She was apparently in the bathroom where she went to get up and became lightheaded and fell. She states that her son was at work at this time, he found her when he came home. She was on the ground for a couple hours. States that she did hit her head and right chest. Did not have anything to eat or drink all day. Her son was the one that called 911. She states that over the last several days she has been generally weak. CT of the brain without contrast did not show any acute intracranial abnormality. There is atrophy and chronic microvessel ischemic white matter changes. While being evaluated by the ER room physician, she was noted to be hypotensive. She has been fluid resuscitated with 1 L of normal saline bolus, and currently has normal saline infusing at 130 MLS per hour. She does take midodrine outpatient. After the 1 L normal saline bolus, patient remained hypotensive, and my supervising physician recommended ICU monitoring. Patient is currently in the emergency department, room 7. She appears fairly comfortable. She is on room air. SpO2 100%. Blood pressure currently 85/61 mmHg. Heart rhythm appears to be atrial fibrillation with a rate of 118 bpm. Norepinephrine has not been started yet. She denies any radiating chest pain, there is some localized reproducible right-sided chest pain where she impacted on fall. Denies any heart palpitations or syncopal events. She has a pure wick suction catheter, there is presumed gross hematuria in the canister. She is not able to tell me how long this has been occurring for. She denies kidney stones. She is on Eliquis outpatient. Patient does admit to some continuous pelvic discomfort/pressure. No flank pain. No burning with urination, no increased urinary frequency. She is chronically incontinent to urine. She has noted blood clots in her underwear. She has remote history of uterine cancer. She does not think this is vaginal bleeding. She received a dose of Rocephin in the emergency room for possible UTI. Urinalysis showing hina blood and WBCs. Culture is pending. She is afebrile. CBC without leukocytosis. Hemoglobin 8.8 g/dL, hematocrit 28.7. Platelets 471. CMP on arrival: Sodium 130, potassium 3.3, chloride 98, serum bicarb 23, BUN 54, creatinine 2.72, glucose 275. Lactic acid originally 3.1 and down to 1.7. LFTs not elevated. EKG done on arrival showed atrial fibrillation with a rate of [address] depressions in the lateral leads. Troponin less than 0.012. NT proBNP 19,900. Chest x-ray shows stable cardiac silhouette, no pulmonary vascular congestion or edema, no acute infiltrates, no pleural effusions or pneumothoraces. She is going to be monitored in the intensive care unit, and transferred once bed available. Review of Systems REVIEW OF SYSTEMS: CONSTITUTIONAL: Denies any recent significant weight loss or weight gain. Admits generalized weakness. Denies fevers. EYES: Denies change in vision. EARS, NOSE, MOUTH, THROAT: Denies headaches, denies sore throat. CARDIOVASCULAR: Denies chest pain, palpitations or syncopal episodes. RESPIRATORY: Denies shortness of breath, cough, congestion or hemoptysis. GASTROINTESTINAL: Denies change in appetite, abdominal pain, nausea and vomiting, or diarrhea GENITOURINARY: See HPI MUSKULOSKELETAL: Denies pain, admits lower extremity swelling, greater on the right. INTEGUMENTARY: Denies rash, denies eczema. NEUROLOGICAL: Denies recent memory loss, no recent seizure activity. PSYCHIATRIC: Denies anxiety, denies depression. HEMATOLOGIC/LYMPHATIC: Denies anemia, denies enlarged lymph node Past Medical History Past Medical History: Atrial Fibrillation, Diabetes Mellitus, Hypertension, Osteoarthritis (OA) Additional Past Medical History / Comment(s): uterine cancer, incontinent of urine History of Any Multi-Drug Resistant Organisms: None Reported Past Surgical History: No Surgical Hx Reported Additional Past Surgical History / Comment(s): cataract & carpal-tunnel bilat. Past Anesthesia/Blood Transfusion Reactions: No Reported Reaction Past Psychological History: No Psychological Hx Reported Smoking Status: Never smoker Past Alcohol Use History: None Reported Past Drug Use History: None Reported - Past Family History Mother Family Medical History: Coronary Artery Disease (CAD), Diabetes Mellitus, Hypertension, Mitral Valve Prolapse (MVP) Father Family Medical History: Hypertension Additional Family Medical History / Comment(s): father hip surgery Medications and Allergies Home Medications Medication Instructions Recorded Confirmed Type Apixaban [Eliquis] 2.5 mg PO BID #60 tab 12/03/23 03/04/24 Rx Atorvastatin [Lipitor] 20 mg PO DAILY #30 tab 12/03/23 03/04/24 Rx Levothyroxine Sodium 25 mcg PO DAILY #30 tab 12/03/23 03/04/24 Rx Cetirizine HCl [Zyrtec] 10 mg PO DAILY PRN 03/04/24 03/04/24 History Clopidogrel [Plavix] 75 mg PO DAILY 03/04/24 03/04/24 History Empagliflozin [Jardiance] 10 mg PO HS 03/04/24 03/04/24 History Furosemide [Lasix] 40 mg PO HS 03/04/24 03/04/24 History Isosorbide Mononitrate ER [Imdur] 15 mg PO DAILY 03/04/24 03/04/24 History Metoprolol Succinate (ER) [Toprol 200 mg PO HS 03/04/24 03/04/24 History XL] Midodrine HCl [ProAmatine] 10 mg PO BID 03/04/24 03/04/24 History Midodrine [ProAmatine] 5 mg PO TID 03/04/24 03/04/24 History Semaglutide [Rybelsus] 7 mg PO DAILY 03/04/24 03/04/24 History Verapamil Sr [Isoptin Sr] 120 mg PO DAILY 03/04/24 03/04/24 History diphenhydrAMINE HCL [Benadryl] 50 mg PO DAILY PRN 03/04/24 03/04/24 History Allergies Allergy/AdvReac Type Severity Reaction Status Date / Time bacitracin Allergy Rash/Hives Verified 03/04/24 17:28 [From Neosporin ([id number])] ibuprofen Allergy Anaphylaxis Verified 03/04/24 17:28 & Rash all over neomycin Allergy Rash/Hives Verified 03/04/24 17:28 [From Neosporin ([id number])] polymyxin B Allergy Rash/Hives Verified 03/04/24 17:28 [From Neosporin ([id number])] Physical Exam Vitals: Vital Signs Temp Pulse Resp BP Pulse Ox 03/04/24 23:21 102 H 18 91/55 100 03/04/24 21:00 98 18 85/61 100 03/04/24 20:10 91 14 81/41 100 03/04/24 18:10 85 14 68/41 95 03/04/24 17:11 86 18 97/63 99 03/04/24 15:32 97.7 F 94 20 84/60 99 Intake and Output 03/04/24 03/04/24 03/05/24 14:59 22:59 06:59 Other: Weight 52.163 kg GENERAL EXAM: Alert, 83-year-old white female, comfortable in no apparent distress. HEAD: Normocephalic and atraumatic EYES: Normal reaction of pupils, equal size. NOSE: Clear with pink turbinates. THROAT: No erythema or exudates. NECK: No masses, no JVD. CHEST: No chest wall deformity. LUNGS: Equal air entry with bibasilar inspiratory crackles. On room air. No conversational dyspnea or accessory muscle use.. CVS: S1 and S2 normal with soft grade 1 systolic murmur, irregular rhythm. No extra heart sounds ABDOMEN: No hepatosplenomegaly, active bowel sounds, no guarding or rigidity. SPINE: No scoliosis or deformity. No CVA tenderness. SKIN: No rashes, generalized pallor CENTRAL NERVOUS SYSTEM: No focal deficits, tone is normal in all 4 extremities. EXTREMITIES: There is bilateral lower extremity edema, greater on the right. No clubbing, or cyanosis. Peripheral pulses are intact. Results - Laboratory Findings CBC and BMP: 03/05/24 11:33 03/05/24 06:08 PT/INR, D-dimer PT 12.0 sec (10.0-12.5) 03/04/24 15:51 INR 1.1 (<1.2) 03/04/24 15:51 Abnormal lab findings: Abnormal Labs 03/04/24 03/04/24 03/04/24 15:51 15:51 15:51 RBC 3.60 L Hgb 8.8 L Hct 28.7 L MCV 79.6 L MCH 24.4 L MCHC 30.6 L RDW 18.3 H Plt Count 471 H Neutrophils # 7.8 H Sodium 130 L Potassium 3.3 L BUN 54 H Creatinine 2.72 H Glucose 275 H POC Glucose (mg/dL) Plasma Lactic Acid Jose L Calcium 8.3 L Albumin 3.1 L Urine Appearance Cloudy H Urine RBC >182 H Urine WBC >182 H 03/04/24 03/04/24 03/04/24 15:51 15:57 23:32 RBC Hgb Hct MCV MCH MCHC RDW Plt Count Neutrophils # Sodium Potassium BUN Creatinine Glucose POC Glucose (mg/dL) 309 H 158 H Plasma Lactic Acid Jose L 3.1 H* Calcium Albumin Urine Appearance Urine RBC Urine WBC - Diagnostic Findings Chest x-ray: image reviewed Assessment and Plan Assessment: Hypotension, currently improved after 1 L normal saline bolus, will continue to monitor in the intensive care unit for possible vasopressors. Fall and near syncopal event Severe dehydration and reduced oral intake Acute on chronic kidney disease, secondary to above, hypotension, and ATN Gross hematuria Possible UTI Paroxysmal atrial fibrillation, anticoagulated on Eliquis Chronic microcytic, hypochromic anemia, hemoglobin stable at 8.8 g/dL Coronary artery disease, with recent PCI/stent to the LAD performed 10/28/2023 History of mild to moderate mitral regurgitation History of diabetes mellitus, type II History of hypothyroidism Chronic kidney disease stage III History of hyperlipidemia Remote history of uterine CA Plan: The ER room physician has previously spoke to my supervising physician, and patient is going to be admitted to the intensive care unit for closer monitoring. Patient was noted to be hypotensive while in the emergency department, has been fluid resuscitated with 1 L of crystalloid fluid. Nore pinephrine has not been started at this time. Resume midodrine for the morning. Patient does appear to have gross hematuria. Obtain ultrasound of renals and bladder. Obtain urology consult. Given a dose of Rocephin, which is essentially empiric. Urine and blood cultures pending Cardiology also consulted. Trend troponins. Currently Eliquis is on hold for gross hematuria. Obtain transthoracic echocardiogram Patient will be monitored in the intensive care unit. I have personally seen and examined the patient, performed the documentation and the assessment and plan as written. Number of minutes spent on the visit:20 This is a joint evaluation that was done more than 30 minutes. Critically ill 83-year-old female patient came into the intensive care unit with blood loss anemia, hypotension and active hematuria. The patient was taken anticoagulation with Eliquis. This morning, Streeter catheter is in place and the patient is still having hematuria. Urology on the case. CAT scan of the abdomen and pelvis was done and showed no acute abnormalities and the bladder findings were noted. Recommended a dose of Kcentra to reverse the patient's anticoagulation due to her ongoing active bleeding. The patient remains on normal citrate 130 cc an hour. The patient is still requiring pressors and the patient is currently on norepinephrine at 0.08 mcg/kg/min. The patient received a unit of packed RBC. Echocardiogram is in progress. Will monitor the hemoglobin. Monitor hematuria and frequent flushing of the cath will be done. Urology consultation. Will continue to follow. Anticoagulation is currently on hold. Time with Patient: Greater than 30
[2024-03-05 01:30] LABS: Anisocytosis Slight; Basophils % (A) 0 %; Eosinophils % (A) 0 %; HCT 20.1 % (34.0-46.0); Hypochromasia Slight; Lymphocytes # (A) 1.2 k/uL (1.0-4.8); Lymphocytes % (A) 13 %; MCH 25.5 pg (25.0-35.0); MCHC 31.5 g/dL (31.0-37.0); MCV 80.8 fL (80.0-100.0); Microcytosis Slight; Monocytes # (A) 0.4 k/uL (0-1.0); Monocytes % (A) 4 %; Neutrophils # (A) 7.3 k/uL (1.3-7.7); Neutrophils % (A) 81 %; Platelet Count 443 k/uL (150-450); RBC 2.49 m/uL (3.80-5.40); RDW 18.7 % (11.5-15.5)
[2024-03-05 01:43] LABS: HGB 6.3 gm/dL (11.4-16.0)
[2024-03-05 06:18] LABS: Anisocytosis Slight; Basophils # (A) 0.1 k/uL (0-0.2); Basophils % (A) 1 %; Eosinophils % (A) 0 %; HGB 7.6 gm/dL (11.4-16.0); Lymphocytes # (A) 1.2 k/uL (1.0-4.8); Lymphocytes % (A) 12 %; MCH 26.3 pg (25.0-35.0); MCHC 31.7 g/dL (31.0-37.0); MCV 82.8 fL (80.0-100.0); Microcytosis Slight; Monocytes # (A) 0.6 k/uL (0-1.0); Monocytes % (A) 6 %; Neutrophils # (A) 8.6 k/uL (1.3-7.7); Neutrophils % (A) 81 %; Platelet Count 491 k/uL (150-450); Poikilocytosis Slight; RDW 18.4 % (11.5-15.5); WBC 10.6 k/uL (3.8-10.6)
[2024-03-05 07:14] LABS: African American GFR (CKD) 20 (>60 ml/min/1.73 sqM); Anion Gap 7 mmol/L; Blood Urea Nitrogen 52 mg/dL (7-17); Calcium 7.7 mg/dL (8.4-10.2); Carbon Dioxide 21 mmol/L (22-30); Chloride 106 mmol/L (98-107); Glucose 149 mg/dL (74-99); Non-African American GFR(CKD) 18 (>60 ml/min/1.73 sqM); Potassium 3.1 mmol/L (3.5-5.1); Sodium 134 mmol/L (137-145)
--- NOTE | 2024-03-05 07:31 | US ---
EXAMINATION TYPE: US renals and bladder DATE OF EXAM: 03/05/2024 COMPARISON: 09/09/2023 CLINICAL INDICATION: Female, 83 years old with history of BOLA; hematuria; Gross hematuria, HTN, DM EXAM MEASUREMENTS: Right Kidney: 8.6 x 4.8 x 3.8 cm Left Kidney: 8.8 x 4.0 x 4.7 cm Post Void Residual Volume: NA mL Right Kidney: Prominent renal pelvis Left Kidney: WNL Bladder: ? Clot vs bladder mass = 6.5 x 6.8 x 7.9 cm; ramesh noted within Bilateral Jets seen: Not able to assess Normal Post Void Residual: NA There is no evidence for hydronephrosis at this point in time. No nephrolithiasis is seen. IMPRESSION: 1. Urinary bladder blood clots versus mass. 2. Evidence of medical renal disease.
[2024-03-05] MEDS ORDERED: diphenhydrAMINE 25 MG CAP PO PRN (08:24)
--- NOTE | 2024-03-05 08:24 | P.HPIM ---
History of Present Illness H&P Date: 03/05/24 HISTORY OF PRESENT ILLNESS: 83-year-old office patient with active medical history of Paroxysmal atrial fibrillation was on anticoagulation, history of hypertension, hyperlipidemia, stage III chronic kidney disease, chronic diastolic congestive heart failure, who also had recently history of non-ST NE with heart cath showed CAD including left main at 80% stenosis with mild LAD at 60 to 70% stenosis with circumflex 100% stenosis ended up having PCI of the left main and LAD, patient had multiple visits to the emergency department last few months with recurrent A-fib with RVR with similar claimed that she ran out of medication, she stopped taking medication a week ago, and many other. Sadly since her angioplasty and stent placement and the harm of not being on dual antiplatelet agent and her current medications extremely dangerous despite explaining this to the patient it looks like this event keep happening. She was hospitalized again in November for A-fib with RVR along with elevated troponin and anemia. She has been complaining of generalized weakness and fatigue post fall she apparently found in the bathroom developed severe lightheadedness and fell her son found her after work she was down for total hours she hit her head and right chest area has not had anything to eat or drink all day Call 911 patient brought to the emergency department at [facility] CT of the brain without contrast did not show any acute abnormality there is atrophy and microvascular finding. Found to be extremely hypertensive she was giving 1 L of IV saline and continue with 130 cc an hour she remained quite hypotensive she had anemia as well and found to be in A-fib with pulse rate running 110 beats per minutes her blood pressure still 80/60 she was started on vasopressor with norepinephrine was not having any chest pain or tightness at her proBNP was 18,800 with mildly elevated troponin. Her urine shows gross hematuria and has been having apparently problem with burning discomfort in bloody urine. She is on Eliquis for A-fib with RVR so she is on 2 Plavix since her angioplasty and stent early. 2 g of Rocephin was giving culture was done for blood and urine her hemoglobin initially was 8.8 and within few hours dropped down to 6 with hydration patient does not have any visual active GI bleed her BUN 54 creatinine 2.72 much worse than before lactic acid at 3.1. Patient was transferred to the ICU continue hydration, vasopressor, process for blood transfusion to be done. REVIEW OF SYSTEMS: CONSTITUTIONAL: Well-developed in no respiratory distress. EYES: No icterus sclerae, no conjunctivitis. EARS, NOSE, MOUTH, THROAT, and FACE: No sore throat, lymphadenopathy, carotid bruits or deformity. RESPIRATORY: Mild shortness of breath and dyspnea with no cough or wheezes. CARDIOVASCULAR: Positive palpitation and A-fib with no angina positive PND and orthopnea. GASTROINTESTINAL: No Abd pain, Nausea or vomiting, no Diarrhea or constipation, No GI Bleed, no distention or masses. GENITOURINARY: Negative for Hematuria or UTI, no kidney stones. INTEGUMENT/BREAST: Negative for any muscular injury with mild osteoarthritis.. HEMATOLOGIC/LYMPHATIC: Negative for bleed or purpura. MUSCULOSKELTAL: Negative for Myalgia or arthralgia. NEURLOGICAL: No LOC, Sz or syncope, blurred vision dizziness or abnormality.. BEHAVIORAL/PSYCH: Negative. ENDOCRINE: Negative. PHYSICAL EXAMINATION: General Appearance: Alert, cooperative, mild distress. Neck HEENT: Supple, no lymphadenopathy, no thyroid enlargement, no carotid bruits. Lungs: Decreased expansion bilaterally with fine rhonchi positive mild rhonchi but no wheezes. Chest Wall: Decreased expansion with deep inspiration no tenderness and no deformity was found on exam, no costochondral pain or discomfort. Heart: Irregular rate and rhythm, S1, S2 positive severe tachycardia positive ejection murmur. Back: Symmetric, no curvature, ROM normal, no CVA tenderness. Abdomen: Soft, non-tender, bowel sounds active all four quadrants, no masses, no organomegaly. Extremities: Trace edema without cyanotic. Pulses: 2+ and symmetric. Skin: Skin color, texture, tugor normal, no rashes or lesions. Neurologic: Alert oriented with slight confusion. Cranial nerves II through XII intact, no motor deficit, no abnormal balance or gait. ASSESSMENT AND PLAN: _Sepsis: Causing hypotension, elevated lactic acid, and leukocytosis. Most likely source UTI UA was positive She was started on 1 dose of Rocephin 2 g in the emergency department waiting for the final culture if UA is positive we will continue antibiotic till the culture is back. _Hypotension: Required vasopressor, patient was transferred to the ICU will be managed in ICU at least of the blood pressure and sepsis is under control. _Acute kidney injury on chronic kidney disease: With much worsening kidney function creatinine is up to 2.72 GFR 16, gentle hydration correct blood pressure keep watching kidney function carefully. _Acute blood loss anemia: With hemoglobin is down to 6.3 from 8.8 on admission not clear etiology at this point most likely GI bleed, Hemoccult will be done, sever Hematuria will see Urology and CT will be done and will need Cystoscopy. _Hematuria: consult Urology and might need Cystoscopy. _Acute systolic congestive heart failure with known coronary artery disease proBNP was 19,900: With pulse: Hide patient more hypoperfusion correct her problem and then if need diuretics in the meanwhile try to correct the volume and hemoglobin to correct congestive heart failure. _Possible non-ST NE with elevated troponin's, slightly abnormal EKG known history of myocardial infarction, patient be seen cardiology CK troponin x 3 will be done. _A-fib with RVR: Pulse rate is running 100 210 beats per minutes irregular, continue current management and try to correct volume if pulse rate still high Then can use metoprolol back again, patient was on metoprolol 200 mg nightly. And was on Eliquis which will be held right now because of the acute GI bleed and blood loss. _Atherosclerotic heart disease: Post PCI and stent placement from October has been seeing cardiology she needs more assurance probably family need to be more involved making sure she is taking her medication on time and that she does not run out of medication. Consult cardiology holding off on antiplatelet agent for now because of the bleed. _Type 2 diabetes: Has been doing well resume insulin with sliding scale coverage and was on Jardiance, continue medication. _Hyperlipidemia: Continue atorvastatin 20 mg a day. _Hypothyroidism: Continue levothyroxine 25 mcg daily. _GI prophylaxis: Will be on pantoprazole 40 mg daily. CODE STATUS: Full code. Admit patient to the inpatient service for more than 2 night stay. Past Medical History Past Medical History: Atrial Fibrillation, Diabetes Mellitus, Hypertension, Osteoarthritis (OA) Additional Past Medical History / Comment(s): uterine cancer, incontinent of urine History of Any Multi-Drug Resistant Organisms: None Reported Past Surgical History: No Surgical Hx Reported Additional Past Surgical History / Comment(s): cataract & carpal-tunnel bilat. Past Anesthesia/Blood Transfusion Reactions: No Reported Reaction Past Psychological History: No Psychological Hx Reported Smoking Status: Never smoker Past Alcohol Use History: None Reported Past Drug Use History: None Reported - Past Family History Mother Family Medical History: Coronary Artery Disease (CAD), Diabetes Mellitus, Hypertension, Mitral Valve Prolapse (MVP) Father Family Medical History: Hypertension Additional Family Medical History / Comment(s): father hip surgery Medications and Allergies Home Medications Medication Instructions Recorded Confirmed Type Apixaban [Eliquis] 2.5 mg PO BID #60 tab 12/03/23 03/04/24 Rx Atorvastatin [Lipitor] 20 mg PO DAILY #30 tab 12/03/23 03/04/24 Rx Levothyroxine Sodium 25 mcg PO DAILY #30 tab 12/03/23 03/04/24 Rx Cetirizine HCl [Zyrtec] 10 mg PO DAILY PRN 03/04/24 03/04/24 History Clopidogrel [Plavix] 75 mg PO DAILY 03/04/24 03/04/24 History Empagliflozin [Jardiance] 10 mg PO HS 03/04/24 03/04/24 History Furosemide [Lasix] 40 mg PO HS 03/04/24 03/04/24 History Isosorbide Mononitrate ER [Imdur] 15 mg PO DAILY 03/04/24 03/04/24 History Metoprolol Succinate (ER) [Toprol 200 mg PO HS 03/04/24 03/04/24 History XL] Midodrine HCl [ProAmatine] 10 mg PO BID 03/04/24 03/04/24 History Midodrine [ProAmatine] 5 mg PO TID 03/04/24 03/04/24 History Semaglutide [Rybelsus] 7 mg PO DAILY 03/04/24 03/04/24 History Verapamil Sr [Isoptin Sr] 120 mg PO DAILY 03/04/24 03/04/24 History diphenhydrAMINE HCL [Benadryl] 50 mg PO DAILY PRN 03/04/24 03/04/24 History Allergies Allergy/AdvReac Type Severity Reaction Status Date / Time bacitracin Allergy Rash/Hives Verified 03/04/24 17:28 [From Neosporin ([id number])] ibuprofen Allergy Anaphylaxis Verified 03/04/24 17:28 & Rash all over neomycin Allergy Rash/Hives Verified 03/04/24 17:28 [From Neosporin ([id number])] polymyxin B Allergy Rash/Hives Verified 03/04/24 17:28 [From Neosporin ([id number])] Physical Exam Vitals: Vital Signs Temp Pulse Resp BP Pulse Ox 03/05/24 05:00 113 H 23 119/67 96 03/05/24 04:50 104 H 19 119/67 99 03/05/24 04:40 107 H 8 L 113/47 100 03/05/24 04:30 98.5 F 105 H 21 109/53 98 03/05/24 04:20 105 H 13 109/53 99 03/05/24 04:10 102 H 14 108/57 100 03/05/24 04:00 97.8 F 113 H 20 109/44 98 03/05/24 03:55 98.4 F 99 20 109/44 99 03/05/24 03:50 104 H 14 109/44 100 03/05/24 03:40 114 H 13 105/59 99 03/05/24 03:35 97.8 F 99 17 105/59 96 03/05/24 03:30 96 17 98/56 99 03/05/24 03:26 98.4 F 103 H 21 98/56 100 03/05/24 03:20 102 H 19 93/50 99 03/05/24 03:10 95 19 96/49 99 03/05/24 02:30 110 H 18 97/54 99 03/05/24 02:00 98 20 95/67 03/05/24 01:50 106 H 19 92/56 03/05/24 01:00 99 12 91/50 98 03/05/24 00:40 106 H 13 106/61 97 03/05/24 00:20 96 12 89/50 94 L 03/05/24 00:10 104 H 15 85/51 100 03/05/24 00:00 98.8 F 96 16 85/51 96 03/04/24 23:30 91/55 03/04/24 23:21 102 H 18 91/55 100 03/04/24 23:20 108 H 16 91/55 95 03/04/24 23:10 110 H 13 84/49 100 03/04/24 23:00 107 H 12 80/50 100 03/04/24 22:50 97 8 L 80/50 100 03/04/24 22:40 102 H 8 L 82/60 100 03/04/24 22:30 120 H 17 84/50 98 03/04/24 22:20 97 7 L 84/50 03/04/24 22:10 111 H 11 L 89/55 91 L 03/04/24 22:00 109 H 15 77/51 100 03/04/24 21:50 99 11 L 77/51 99 03/04/24 21:40 102 H 9 L 76/46 100 03/04/24 21:30 98 17 99/50 97 03/04/24 21:21 100 10 L 99/50 100 03/04/24 21:10 95 15 85/61 98 03/04/24 21:00 102 H 18 76/42 100 03/04/24 20:50 101 H 10 L 76/42 100 03/04/24 20:40 94 13 77/47 98 03/04/24 20:30 99 11 L 77/58 97 03/04/24 20:20 89 8 L 77/58 97 03/04/24 20:10 92 19 81/41 100 03/04/24 20:00 91 7 L 78/50 100 03/04/24 19:50 102 H 5 L 78/50 99 03/04/24 19:40 99 8 L 79/41 100 03/04/24 19:30 86 12 76/53 79 L 03/04/24 19:20 89 13 76/53 96 03/04/24 19:10 87 12 63/48 100 03/04/24 19:00 93 10 L 86/41 97 03/04/24 18:50 85 10 L 86/41 98 03/04/24 18:40 89 10 L 84/50 100 03/04/24 18:10 85 14 68/41 95 03/04/24 17:11 86 18 97/63 99 03/04/24 15:32 97.7 F 94 20 84/60 99 Intake and Output 03/04/24 03/04/24 03/05/24 14:59 22:59 06:59 Intake Total 1233.505 Output Total 490 Balance 743.505 Intake: IV 650 Sodium Chloride 0.9% 1, 650 000 ml @ 130 mls/hr IV . Q7H42M [facility] Rx#:[id number] Intake, IV Titration 1.505 Amount Norepinephrine 32 mg In 1.505 Sodium Chloride 0.9% 218 ml @ 0.03 MCG/KG/MIN 0. 734 mls/hr IV .Q24H [facility] Rx#:[id number] Blood Product 582 Rc Pheresis 2 As3 Unit 291 [id number] Output: Urine 490 Other: Voiding Method Indwelling Catheter Weight 52.163 kg Results CBC & Chem 7: 03/05/24 06:08 03/05/24 06:08 Labs: Abnormal Lab Results - Last 24 Hours (Table) 03/04/24 03/04/24 03/04/24 Range/Units 15:51 15:51 15:51 RBC 3.60 L (3.80-5.40) m/uL Hgb 8.8 L (11.4-16.0) gm/dL Hct 28.7 L (34.0-46.0) % MCV 79.6 L (80.0-100.0) fL MCH 24.4 L (25.0-35.0) pg MCHC 30.6 L (31.0-37.0) g/dL RDW 18.3 H (11.5-15.5) % Plt Count 471 H (150-450) k/uL Neutrophils # 7.8 H (1.3-7.7) k/uL Sodium 130 L (137-145) mmol/L Potassium 3.3 L (3.5-5.1) mmol/L BUN 54 H (7-17) mg/dL Creatinine 2.72 H (0.52-1.04) mg/dL Glucose 275 H (74-99) mg/dL POC Glucose (mg/dL) (70-110) mg/dL Plasma Lactic Acid Jose L (0.7-2.0) mmol/L Calcium 8.3 L (8.4-10.2) mg/dL Troponin I (0.000-0.034) ng/mL Albumin 3.1 L (3.5-5.0) g/dL Urine Appearance Cloudy H (Clear) Urine RBC >182 H (0-5) /hpf Urine WBC >182 H (0-5) /hpf Crossmatch 03/04/24 03/04/24 03/04/24 Range/Units 15:51 15:57 23:32 RBC (3.80-5.40) m/uL Hgb (11.4-16.0) gm/dL Hct (34.0-46.0) % MCV (80.0-100.0) fL MCH (25.0-35.0) pg MCHC (31.0-37.0) g/dL RDW (11.5-15.5) % Plt Count (150-450) k/uL Neutrophils # (1.3-7.7) k/uL Sodium (137-145) mmol/L Potassium (3.5-5.1) mmol/L BUN (7-17) mg/dL Creatinine (0.52-1.04) mg/dL Glucose (74-99) mg/dL POC Glucose (mg/dL) 309 H 158 H (70-110) mg/dL Plasma Lactic Acid Jose L 3.1 H* (0.7-2.0) mmol/L Calcium (8.4-10.2) mg/dL Troponin I (0.000-0.034) ng/mL Albumin (3.5-5.0) g/dL Urine Appearance (Clear) Urine RBC (0-5) /hpf Urine WBC (0-5) /hpf Crossmatch 03/05/24 03/05/24 03/05/24 Range/Units 01:08 01:08 01:53 RBC 2.49 L (3.80-5.40) m/uL Hgb 6.3 L* D (11.4-16.0) gm/dL Hct 20.1 L (34.0-46.0) % MCV (80.0-100.0) fL MCH (25.0-35.0) pg MCHC (31.0-37.0) g/dL RDW 18.7 H (11.5-15.5) % Plt Count (150-450) k/uL Neutrophils # (1.3-7.7) k/uL Sodium (137-145) mmol/L Potassium (3.5-5.1) mmol/L BUN (7-17) mg/dL Creatinine (0.52-1.04) mg/dL Glucose (74-99) mg/dL POC Glucose (mg/dL) (70-110) mg/dL Plasma Lactic Acid Jose L (0.7-2.0) mmol/L Calcium (8.4-10.2) mg/dL Troponin I 0.067 H* (0.000-0.034) ng/mL Albumin (3.5-5.0) g/dL Urine Appearance (Clear) Urine RBC (0-5) /hpf Urine WBC (0-5) /hpf Crossmatch See Detail Thrombosis Risk Factor Assmnt - Choose All That Apply Each Risk Factor Represents 2 Points: Central venous access Thrombosis Risk Factor Assessment Total Risk Factor Score: 2 Thrombosis Risk Factor Assessment Level: Low Risk
[2024-03-05] MEDS: MIDODRINE 5 MG TAB PO SCH (08:45)
[2024-03-05] MEDS: LEVOTHYROXINE 25 MCG TAB PO SCH (08:45)
[2024-03-05] MEDS: POTASSIUM CHLORIDE ER 20 MEQ TAB.ER PO STA (08:51)
[2024-03-05 09:17] LABS: % Iron Saturation 5.44 (12.00-45.00)
--- NOTE | 2024-03-05 09:32 | P.GSCN ---
History of Present Illness Consult date: 03/05/24 History of present illness: 83 yo female with a significant history of cardiac disease. SHe is admitted with sob. SHe was found to have arf upon crf. We were asked to see for hematuria. SHe has inflammed urine consistent with a uti. SHe has no history of stones. She has had hematuria for several months. She does have a history of incomplete bladder emptying and has seen for this. She is on Flomax. She had an ultrasound done in the fall that identified bilateral hydronephrosis, mild consistent with incomplete bladder emptying. She has had previous infections. Her catheter indwelling shows old blood. The patient has been on anticoagulation. Review of Systems All systems: negative - Constitutional Denies fever, Denies weight loss - EENT Eyes: denies blurred vision Ears, nose, mouth and throat: Denies dysphagia - Cardiovascular Denies chest pain, Denies shortness of breath - Respiratory Denies cough, Denies 7 - Gastrointestinal Reports as per HPI - Genitourinary Genitourinary: Denies dysuria, Denies hematuria - Integumentary Denies rash, Denies unusual bruising - Neurological Denies headaches, Denies syncope - Hematologic/Lymphatic Denies easy bleeding, Denies easy bruising Past Medical History Past Medical History: Atrial Fibrillation, Diabetes Mellitus, Hypertension, Osteoarthritis (OA) Additional Past Medical History / Comment(s): uterine cancer, incontinent of urine History of Any Multi-Drug Resistant Organisms: None Reported Past Surgical History: No Surgical Hx Reported Additional Past Surgical History / Comment(s): cataract & carpal-tunnel bilat. Past Anesthesia/Blood Transfusion Reactions: No Reported Reaction Past Psychological History: No Psychological Hx Reported Smoking Status: Never smoker Past Alcohol Use History: None Reported Past Drug Use History: None Reported - Past Family History Mother Family Medical History: Coronary Artery Disease (CAD), Diabetes Mellitus, Hypertension, Mitral Valve Prolapse (MVP) Father Family Medical History: Hypertension Additional Family Medical History / Comment(s): father hip surgery Medications and Allergies Home Medications Medication Instructions Recorded Confirmed Type Apixaban [Eliquis] 2.5 mg PO BID #60 tab 12/03/23 03/04/24 Rx Atorvastatin [Lipitor] 20 mg PO DAILY #30 tab 12/03/23 03/04/24 Rx Levothyroxine Sodium 25 mcg PO DAILY #30 tab 12/03/23 03/04/24 Rx Cetirizine HCl [Zyrtec] 10 mg PO DAILY PRN 03/04/24 03/04/24 History Clopidogrel [Plavix] 75 mg PO DAILY 03/04/24 03/04/24 History Empagliflozin [Jardiance] 10 mg PO HS 03/04/24 03/04/24 History Furosemide [Lasix] 40 mg PO HS 03/04/24 03/04/24 History Isosorbide Mononitrate ER [Imdur] 15 mg PO DAILY 03/04/24 03/04/24 History Metoprolol Succinate (ER) [Toprol 200 mg PO HS 03/04/24 03/04/24 History XL] Midodrine HCl [ProAmatine] 10 mg PO BID 03/04/24 03/04/24 History Midodrine [ProAmatine] 5 mg PO TID 03/04/24 03/04/24 History Semaglutide [Rybelsus] 7 mg PO DAILY 03/04/24 03/04/24 History Verapamil Sr [Isoptin Sr] 120 mg PO DAILY 03/04/24 03/04/24 History diphenhydrAMINE HCL [Benadryl] 50 mg PO DAILY PRN 03/04/24 03/04/24 History Allergies Allergy/AdvReac Type Severity Reaction Status Date / Time bacitracin Allergy Rash/Hives Verified 03/04/24 17:28 [From Neosporin ([id number])] ibuprofen Allergy Anaphylaxis Verified 03/04/24 17:28 & Rash all over neomycin Allergy Rash/Hives Verified 03/04/24 17:28 [From Neosporin ([id number])] polymyxin B Allergy Rash/Hives Verified 03/04/24 17:28 [From Neosporin ([id number])] Surgical - Exam Vital Signs Temp Pulse Resp BP Pulse Ox 97.7 F 94 20 84/60 99 03/04/24 15:32 03/04/24 15:32 03/04/24 15:32 03/04/24 15:32 03/04/24 15:32 - General well developed, well nourished, no distress - Eyes normal ocular movement, no icteric - ENT no hearing loss, no congestion - Neck no masses, trachea midline - Respiratory normal respiratory effort, clear to auscultation - Abdomen Abdomen: soft, non tender, no guarding, no rigid, no rebound - Genitourinary Indwelling catheter with old blood in the tubing. - Integumentary no rash, no abnormal pigmentation - Neurologic no disoriented, no combative - Psychiatric oriented to time, oriented to person, oriented to place, speech is normal, memory intact Results - Labs 03/05/24 06:08 03/05/24 06:08 Abnormal Lab Results - Last 24 Hours (Table) 03/04/24 03/04/24 03/04/24 Range/Units 15:51 15:51 15:51 RBC 3.60 L (3.80-5.40) m/uL Hgb 8.8 L (11.4-16.0) gm/dL Hct 28.7 L (34.0-46.0) % MCV 79.6 L (80.0-100.0) fL MCH 24.4 L (25.0-35.0) pg MCHC 30.6 L (31.0-37.0) g/dL RDW 18.3 H (11.5-15.5) % Plt Count 471 H (150-450) k/uL Neutrophils # 7.8 H (1.3-7.7) k/uL Sodium 130 L (137-145) mmol/L Potassium 3.3 L (3.5-5.1) mmol/L BUN 54 H (7-17) mg/dL Creatinine 2.72 H (0.52-1.04) mg/dL Glucose 275 H (74-99) mg/dL POC Glucose (mg/dL) (70-110) mg/dL Plasma Lactic Acid Jose L (0.7-2.0) mmol/L Calcium 8.3 L (8.4-10.2) mg/dL Troponin I (0.000-0.034) ng/mL Albumin 3.1 L (3.5-5.0) g/dL Urine Appearance Cloudy H (Clear) Urine RBC >182 H (0-5) /hpf Urine WBC >182 H (0-5) /hpf Crossmatch 03/04/24 03/04/24 03/04/24 Range/Units 15:51 15:57 23:32 RBC (3.80-5.40) m/uL Hgb (11.4-16.0) gm/dL Hct (34.0-46.0) % MCV (80.0-100.0) fL MCH (25.0-35.0) pg MCHC (31.0-37.0) g/dL RDW (11.5-15.5) % Plt Count (150-450) k/uL Neutrophils # (1.3-7.7) k/uL Sodium (137-145) mmol/L Potassium (3.5-5.1) mmol/L BUN (7-17) mg/dL Creatinine (0.52-1.04) mg/dL Glucose (74-99) mg/dL POC Glucose (mg/dL) 309 H 158 H (70-110) mg/dL Plasma Lactic Acid Jose L 3.1 H* (0.7-2.0) mmol/L Calcium (8.4-10.2) mg/dL Troponin I (0.000-0.034) ng/mL Albumin (3.5-5.0) g/dL Urine Appearance (Clear) Urine RBC (0-5) /hpf Urine WBC (0-5) /hpf Crossmatch 03/05/24 03/05/24 03/05/24 Range/Units 01:08 01:08 01:53 RBC 2.49 L (3.80-5.40) m/uL Hgb 6.3 L* D (11.4-16.0) gm/dL Hct 20.1 L (34.0-46.0) % MCV (80.0-100.0) fL MCH (25.0-35.0) pg MCHC (31.0-37.0) g/dL RDW 18.7 H (11.5-15.5) % Plt Count (150-450) k/uL Neutrophils # (1.3-7.7) k/uL Sodium (137-145) mmol/L Potassium (3.5-5.1) mmol/L BUN (7-17) mg/dL Creatinine (0.52-1.04) mg/dL Glucose (74-99) mg/dL POC Glucose (mg/dL) (70-110) mg/dL Plasma Lactic Acid Jose L (0.7-2.0) mmol/L Calcium (8.4-10.2) mg/dL Troponin I 0.067 H* (0.000-0.034) ng/mL Albumin (3.5-5.0) g/dL Urine Appearance (Clear) Urine RBC (0-5) /hpf Urine WBC (0-5) /hpf Crossmatch See Detail Diabetes panel 03/04/24 Range/Units 15:51 Sodium 130 L (137-145) mmol/L Potassium 3.3 L (3.5-5.1) mmol/L Chloride 98 (98-107) mmol/L Carbon Dioxide 23 (22-30) mmol/L BUN 54 H (7-17) mg/dL Creatinine 2.72 H (0.52-1.04) mg/dL Glucose 275 H (74-99) mg/dL Calcium 8.3 L (8.4-10.2) mg/dL AST 21 (14-36) U/L ALT 14 (4-34) U/L Alkaline Phosphatase 92 (38-126) U/L Total Protein 6.4 (6.3-8.2) g/dL Albumin 3.1 L (3.5-5.0) g/dL Calcium panel 03/04/24 Range/Units 15:51 Calcium 8.3 L (8.4-10.2) mg/dL Albumin 3.1 L (3.5-5.0) g/dL Pituitary panel 03/04/24 Range/Units 15:51 Sodium 130 L (137-145) mmol/L Potassium 3.3 L (3.5-5.1) mmol/L Chloride 98 (98-107) mmol/L Carbon Dioxide 23 (22-30) mmol/L BUN 54 H (7-17) mg/dL Creatinine 2.72 H (0.52-1.04) mg/dL Glucose 275 H (74-99) mg/dL Calcium 8.3 L (8.4-10.2) mg/dL Adrenal panel 03/04/24 Range/Units 15:51 Sodium 130 L (137-145) mmol/L Potassium 3.3 L (3.5-5.1) mmol/L Chloride 98 (98-107) mmol/L Carbon Dioxide 23 (22-30) mmol/L BUN 54 H (7-17) mg/dL Creatinine 2.72 H (0.52-1.04) mg/dL Glucose 275 H (74-99) mg/dL Calcium 8.3 L (8.4-10.2) mg/dL Total Bilirubin 0.9 (0.2-1.3) mg/dL AST 21 (14-36) U/L ALT 14 (4-34) U/L Alkaline Phosphatase 92 (38-126) U/L Total Protein 6.4 (6.3-8.2) g/dL Albumin 3.1 L (3.5-5.0) g/dL Assessment and Plan Assessment: Impression: Gross hematuria probably secondary to urinary infection. Hemorrha gic cystitis. History of incomplete bladder emptying. Chronic and acute renal failure. Recommendations instead of the ultrasound I'll do a computed tomography scan without contrast to assess for stones and other obvious urologic issues. Most likely this urine infection is due to a hemorrhagic cystitis aggravated by anticoagulation. I will give further recommendations after the computed tomogr aphy scan.
--- NOTE | 2024-03-05 09:40 | CT ---
EXAMINATION TYPE: CT abdomen pelvis wo con DATE OF EXAM: 03/05/2024 COMPARISON: 06/03/2010 HISTORY: flank pain, hematuria CT DLP: 475.6 mGycm Examination of the solid and hollow viscera is limited given the lack of contrast. FINDINGS: LUNG BASES: No evidence for nodule. No evidence for infiltrate. LIVER/GB: The gallbladder is unremarkable. No space-occupying hepatic lesion. PANCREAS: No pancreatic mass identified. No inflammatory process seen. SPLEEN: No evidence for splenomegaly. No intrasplenic lesions seen. ADRENALS: No adrenal nodules identified. No evidence for thickening. KIDNEYS: Mild fullness of the right renal pelvis. No obstructing calculus is seen within either kidne y or ureter. Hyperdensity seen within the urinary bladder may reflect blood byproducts. Streeter cathete r is in place. Intraluminal air noted. No distinct renal mass appreciated. BOWEL: Appendix has a normal appearance. No evidence of bowel obstruction. No inflammatory process. Lymph nodes: No evidence for adenopathy greater than 1 cm. Abdominal aorta: Atheromatous changes seen. No evidence for aneurysm. Genital organs: No significant abnormality. Other: No significant abnormality. IMPRESSION: 1.Hyperdensity seen within the urinary bladder may reflect blood byproducts. Streeter catheter is in margarita ce. Intraluminal air noted.
[2024-03-05] MEDS ORDERED: Kcentra PER PHARMACY 1 EACH MISC MISCELLANE PRN (09:53)
[2024-03-05] MEDS: ISOSORBIDE MONONITRATE ER 15 MG TAB PO SCH (10:50)
[2024-03-05] MEDS: FAMOTIDINE 20 MG TAB PO SCH (10:51)
[2024-03-05] MEDS: ATORVASTATIN 20 MG TAB PO SCH (10:51)
--- NOTE | 2024-03-05 11:23 | P.CONS ---
History of Present Illness - Reason for Consult Consult date: 03/05/24 Urinary tract infection Requesting physician: Charly Sargent - Chief Complaint Generalized weakness and fatigue x few days - History of Present Illness Patient is a 83-year-old female with a past medical history significant for diabetes mellitus hypertension atrial fibrillation osteoarthritis patient was brought into the hospital yesterday afternoon for evaluation of generalized weakness and fatigue and lightheadedness apparently when the patient checked her blood pressure at home it has been running low and the patient symptom has been getting worse for 2 to 3 days before presentation to the hospital patient was not able to get up and get around patient on presentation to the hospital him with the symptoms was afebrile and no fever have recorded subsequently patient was tachycardic and hypotensive requiring admission to the ICU patient is not hypoxic and no need for supplemental oxygen patient did have a white count of 9.4 with a left shift BUN/creatinine has been mildly elevated liver enzymes are normal urine has been cloudy with more than 1- 2 WBC patient did have a chest x-ray that was negative for acute cardiopulmonary process renal ultrasound urinary bladder clots versus mass evidence of medical renal disease patient received a dose of Rocephin in the ER subsequently has been admitted infectious he was consulted for further management of antibiotic therapy patient seem to have been mostly generalized weakness patient denies any high-grade fever or any chills patient denies having any headache or URI symptoms denies any chest pain shortness of breath cough some nausea no vomiting some lower abdominal discomfort but no diarrhea did have some hematuria Review of Systems Positive point and negatives has been mentioned in the HPI, complete review of systems was performed and all other systems are negative Past Medical History Past Medical History: Atrial Fibrillation, Diabetes Mellitus, Hypertension, Osteoarthritis (OA) Additional Past Medical History / Comment(s): uterine cancer, incontinent of urine History of Any Multi-Drug Resistant Organisms: None Reported Past Surgical History: No Surgical Hx Reported Additional Past Surgical History / Comment(s): cataract & carpal-tunnel bilat. Past Anesthesia/Blood Transfusion Reactions: No Reported Reaction Past Psychological History: No Psychological Hx Reported Smoking Status: Never smoker Past Alcohol Use History: None Reported Past Drug Use History: None Reported - Past Family History Mother Family Medical History: Coronary Artery Disease (CAD), Diabetes Mellitus, Hypertension, Mitral Valve Prolapse (MVP) Father Family Medical History: Hypertension Additional Family Medical History / Comment(s): father hip surgery Medications and Allergies Home Medications Medication Instructions Recorded Confirmed Type Apixaban [Eliquis] 2.5 mg PO BID #60 tab 12/03/23 03/04/24 Rx Atorvastatin [Lipitor] 20 mg PO DAILY #30 tab 12/03/23 03/04/24 Rx Levothyroxine Sodium 25 mcg PO DAILY #30 tab 12/03/23 03/04/24 Rx Cetirizine HCl [Zyrtec] 10 mg PO DAILY PRN 03/04/24 03/04/24 History Clopidogrel [Plavix] 75 mg PO DAILY 03/04/24 03/04/24 History Empagliflozin [Jardiance] 10 mg PO HS 03/04/24 03/04/24 History Furosemide [Lasix] 40 mg PO HS 03/04/24 03/04/24 History Isosorbide Mononitrate ER [Imdur] 15 mg PO DAILY 03/04/24 03/04/24 History Midodrine [ProAmatine] 5 mg PO TID 03/04/24 03/04/24 History Semaglutide [Rybelsus] 7 mg PO DAILY 03/04/24 03/04/24 History Verapamil Sr [Isoptin Sr] 120 mg PO DAILY 03/04/24 03/04/24 History diphenhydrAMINE HCL [Benadryl] 50 mg PO DAILY PRN 03/04/24 03/04/24 History Acetaminophen Tab [Tylenol] 500 mg PO Q6HR PRN tab 03/16/24 Rx Albuterol Inhaler [Ventolin 2 puff INHALATION Q6HR PRN #1 each 03/16/24 Rx Inhaler] Aspirin 81 mg PO DAILY tab 03/16/24 Rx Benzonatate [Tessalon Perle] 200 mg PO AC-TID #60 capsule 03/16/24 Rx Cefdinir [Omnicef] 300 mg PO DAILY #7 cap 03/16/24 Rx Famotidine [Pepcid] 20 mg PO DAILY #30 tab 03/16/24 Rx Metoprolol Succinate (ER) [Toprol 100 mg PO HS #0 03/16/24 03/04/24 Rx XL] Sodium Bicarbonate Tab 650 mg PO DAILY #30 tab 03/16/24 Rx Allergies Allergy/AdvReac Type Severity Reaction Status Date / Time bacitracin Allergy Rash/Hives Verified 03/04/24 17:28 [From Neosporin ([id number])] ibuprofen Allergy Anaphylaxis Verified 03/04/24 17:28 & Rash all over neomycin Allergy Rash/Hives Verified 03/04/24 17:28 [From Neosporin ([id number])] polymyxin B Allergy Rash/Hives Verified 03/04/24 17:28 [From Neosporin ([id number])] Physical Exam Vitals: Vital Signs Temp Pulse Resp BP Pulse Ox 03/05/24 08:45 112 H 14 121/57 99 03/05/24 08:30 109 H 14 153/85 03/05/24 08:15 100 13 80/44 99 03/05/24 08:00 105 H 12 99 03/05/24 07:45 99.2 F 104 H 11 L 108/51 03/05/24 07:30 109 H 14 113/52 100 03/05/24 07:15 110 H 13 100/53 03/05/24 07:00 111 H 27 H 114/61 99 03/05/24 06:50 110 H 22 114/61 03/05/24 06:40 105 H 19 105/49 03/05/24 06:30 112 H 17 114/50 03/05/24 06:20 99 17 114/50 03/05/24 06:10 111 H 11 L 108/47 03/05/24 06:00 112 H 19 110/49 96 03/05/24 05:50 110 H 21 110/49 97 03/05/24 05:40 108 H 15 101/45 97 03/05/24 05:30 112 H 18 101/52 98 03/05/24 05:20 112 H 19 101/52 97 03/05/24 05:10 98 22 103/49 95 03/05/24 05:00 113 H 23 119/67 96 03/05/24 04:50 104 H 19 119/67 99 03/05/24 04:40 107 H 8 L 113/47 100 03/05/24 04:30 98.5 F 105 H 21 109/53 98 03/05/24 04:20 105 H 13 109/53 99 03/05/24 04:10 102 H 14 108/57 100 03/05/24 04:00 97.8 F 113 H 20 109/44 98 06/10/24 03:55 98.4 F 99 20 109/44 99 03/05/24 03:50 104 H 14 109/44 100 03/05/24 03:40 114 H 13 105/59 99 03/05/24 03:35 97.8 F 99 17 105/59 96 03/05/24 03:30 96 17 98/56 99 03/05/24 03:26 98.4 F 103 H 21 98/56 100 03/05/24 03:20 102 H 19 93/50 99 03/05/24 03:10 95 19 96/49 99 03/05/24 02:30 110 H 18 97/54 99 03/05/24 02:00 98 20 95/67 03/05/24 01:50 106 H 19 92/56 03/05/24 01:00 99 12 91/50 98 03/05/24 00:40 106 H 13 106/61 97 03/05/24 00:20 96 12 89/50 94 L 03/05/24 00:10 104 H 15 85/51 100 03/05/24 00:00 98.8 F 96 16 85/51 96 03/04/24 23:30 91/55 03/04/24 23:21 102 H 18 91/55 100 03/04/24 23:20 108 H 16 91/55 95 03/04/24 23:10 110 H 13 84/49 100 03/04/24 23:00 107 H 12 80/50 100 03/04/24 22:50 97 8 L 80/50 100 03/04/24 22:40 102 H 8 L 82/60 100 03/04/24 22:30 120 H 17 84/50 98 03/04/24 22:20 97 7 L 84/50 03/04/24 22:10 111 H 11 L 89/55 91 L 03/04/24 22:00 109 H 15 77/51 100 03/04/24 21:50 99 11 L 77/51 99 03/04/24 21:40 102 H 9 L 76/46 100 03/04/24 21:30 98 17 99/50 97 03/04/24 21:21 100 10 L 99/50 100 03/04/24 21:10 95 15 85/61 98 03/04/24 21:00 102 H 18 76/42 100 03/04/24 20:50 101 H 10 L 76/42 100 03/04/24 20:40 94 13 77/47 98 03/04/24 20:30 99 11 L 77/58 97 03/04/24 20:20 89 8 L 77/58 97 03/04/24 20:10 92 19 81/41 100 03/04/24 20:00 91 7 L 78/50 100 03/04/24 19:50 102 H 5 L 78/50 99 03/04/24 19:40 99 8 L 79/41 100 03/04/24 19:30 86 12 76/53 79 L 03/04/24 19:20 89 13 76/53 96 03/04/24 19:10 87 12 63/48 100 03/04/24 19:00 93 10 L 86/41 97 03/04/24 18:50 85 10 L 86/41 98 03/04/24 18:40 89 10 L 84/50 100 03/04/24 18:10 85 14 68/41 95 03/04/24 17:11 86 18 97/63 99 03/04/24 15:32 97.7 F 94 20 84/60 99 Intake and Output 03/04/24 03/05/24 03/05/24 22:59 06:59 14:59 Intake Total 1493.505 260 Output Total 600 150 Balance 893.505 110 Intake: IV 910 260 Sodium Chloride 0.9% 1, 910 260 000 ml @ 130 mls/hr IV . Q7H42M [facility] Rx#:[id number] Intake, IV Titration 1.505 Amount Norepinephrine 32 mg In 1.505 Sodium Chloride 0.9% 218 ml @ 0.03 MCG/KG/MIN 0. 734 mls/hr IV .Q24H [facility] Rx#:[id number] Blood Product 582 Rc Pheresis 2 As3 Unit 291 [id number] Output: Urine 600 150 Other: Voiding Method Indwelling Catheter Weight 52.163 kg 67.3 kg GENERAL DESCRIPTION: Elderly female lying in bed, no distress. No tachypnea or accessory muscle of respiration use. HEENT: Shows Pallor , no scleral icterus. Oral mucous membrane is dry. No pharyngeal erythema or thrush NECK: Trachea central, no thyromegaly. LUNGS: Unlabored breathing. Clear to auscultation anteriorly. No wheeze or crackle. HEART: S1, S2, regular rate and rhythm. No loud murmur ABDOMEN: Soft, no tenderness , guarding or rigidity, no organomegaly EXTREMITIES: No edema of feet. SKIN: No rash, no masses palpable. NEUROLOGICAL: The patient is awake, alert, oriented x3, mood and affect normal. Results CBC & Chem 7: 03/16/24 11:30 03/16/24 11:30 Labs: Abnormal Lab Results - Last 24 Hours (Table) 03/04/24 03/04/24 03/04/24 Range/Units 15:51 15:51 15:51 RBC 3.60 L (3.80-5.40) m/uL Hgb 8.8 L (11.4-16.0) gm/dL Hct 28.7 L (34.0-46.0) % MCV 79.6 L (80.0-100.0) fL MCH 24.4 L (25.0-35.0) pg MCHC 30.6 L (31.0-37.0) g/dL RDW 18.3 H (11.5-15.5) % Plt Count 471 H (150-450) k/uL Neutrophils # 7.8 H (1.3-7.7) k/uL Sodium 130 L (137-145) mmol/L Potassium 3.3 L (3.5-5.1) mmol/L Carbon Dioxide (22-30) mmol/L BUN 54 H (7-17) mg/dL Creatinine 2.72 H (0.52-1.04) mg/dL Glucose 275 H (74-99) mg/dL POC Glucose (mg/dL) (70-110) mg/dL Plasma Lactic Acid Jose L (0.7-2.0) mmol/L Calcium 8.3 L (8.4-10.2) mg/dL Iron (50-170) UG/DL % Saturation (12.00-45.00) Transferrin (204.0-354.0) mg/dL Troponin I (0.000-0.034) ng/mL Albumin 3.1 L (3.5-5.0) g/dL Urine Appearance Cloudy H (Clear) Urine RBC >182 H (0-5) /hpf Urine WBC >182 H (0-5) /hpf Crossmatch 03/04/24 03/04/24 03/04/24 Range/Units 15:51 15:57 23:32 RBC (3.80-5.40) m/uL Hgb (11.4-16.0) gm/dL Hct (34.0-46.0) % MCV (80.0-100.0) fL MCH (25.0-35.0) pg MCHC (31.0-37.0) g/dL RDW (11.5-15.5) % Plt Count (150-450) k/uL Neutrophils # (1.3-7.7) k/uL Sodium (137-145) mmol/L Potassium (3.5-5.1) mmol/L Carbon Dioxide (22-30) mmol/L BUN (7-17) mg/dL Creatinine (0.52-1.04) mg/dL Glucose (74-99) mg/dL POC Glucose (mg/dL) 309 H 158 H (70-110) mg/dL Plasma Lactic Acid Ojse L 3.1 H* (0.7-2.0) mmol/L Calcium (8.4-10.2) mg/dL Iron (50-170) UG/DL % Saturation (12.00-45.00) Transferrin (204.0-354.0) mg/dL Troponin I (0.000-0.034) ng/mL Albumin (3.5-5.0) g/dL Urine Appearance (Clear) Urine RBC (0-5) /hpf Urine WBC (0-5) /hpf Crossmatch 03/05/24 03/05/24 03/05/24 Range/Units 01:08 01:08 01:08 RBC 2.49 L (3.80-5.40) m/uL Hgb 6.3 L* D (11.4-16.0) gm/dL Hct 20.1 L (34.0-46.0) % MCV (80.0-100.0) fL MCH (25.0-35.0) pg MCHC (31.0-37.0) g/dL RDW 18.7 H (11.5-15.5) % Plt Count (150-450) k/uL Neutrophils # (1.3-7.7) k/uL Sodium (137-145) mmol/L Potassium (3.5-5.1) mmol/L Carbon Dioxide (22-30) mmol/L BUN (7-17) mg/dL Creatinine (0.52-1.04) mg/dL Glucose (74-99) mg/dL POC Glucose (mg/dL) (70-110) mg/dL Plasma Lactic Acid Jose L (0.7-2.0) mmol/L Calcium (8.4-10.2) mg/dL Iron 13 L (50-170) UG/DL % Saturation 5.44 L (12.00-45.00) Transferrin 171.0 L (204.0-354.0) mg/dL Troponin I 0.067 H* (0.000-0.034) ng/mL Albumin (3.5-5.0) g/dL Urine Appearance (Clear) Urine RBC (0-5) /hpf Urine WBC (0-5) /hpf Crossmatch 03/05/24 03/05/24 03/05/24 Range/Units 01:53 06:08 06:08 RBC 2.90 L (3.80-5.40) m/uL Hgb 7.6 L (11.4-16.0) gm/dL Hct 24.0 L (34.0-46.0) % MCV (80.0-100.0) fL MCH (25.0-35.0) pg MCHC (31.0-37.0) g/dL RDW 18.4 H (11.5-15.5) % Plt Count 491 H (150-450) k/uL Neutrophils # 8.6 H (1.3-7.7) k/uL Sodium 134 L (137-145) mmol/L Potassium 3.1 L (3.5-5.1) mmol/L Carbon Dioxide 21 L (22-30) mmol/L BUN 52 H (7-17) mg/dL Creatinine 2.49 H (0.52-1.04) mg/dL Glucose 149 H (74-99) mg/dL POC Glucose (mg/dL) (70-110) mg/dL Plasma Lactic Acid Jose L (0.7-2.0) mmol/L Calcium 7.7 L (8.4-10.2) mg/dL Iron (50-170) UG/DL % Saturation (12.00-45.00) Transferrin (204.0-354.0) mg/dL Troponin I (0.000-0.034) ng/mL Albumin (3.5-5.0) g/dL Urine Appearance (Clear) Urine RBC (0-5) /hpf Urine WBC (0-5) /hpf Crossmatch See Detail 03/05/24 Range/Units 06:08 RBC (3.80-5.40) m/uL Hgb (11.4-16.0) gm/dL Hct (34.0-46.0) % MCV (80.0-100.0) fL MCH (25.0-35.0) pg MCHC (31.0-37.0) g/dL RDW (11.5-15.5) % Plt Count (150-450) k/uL Neutrophils # (1.3-7.7) k/uL Sodium (137-145) mmol/L Potassium (3.5-5.1) mmol/L Carbon Dioxide (22-30) mmol/L BUN (7-17) mg/dL Creatinine (0.52-1.04) mg/dL Glucose (74-99) mg/dL POC Glucose (mg/dL) (70-110) mg/dL Plasma Lactic Acid Jose L (0.7-2.0) mmol/L Calcium (8.4-10.2) mg/dL Iron (50-170) UG/DL % Saturation (12.00-45.00) Transferrin (204.0-354.0) mg/dL Troponin I 0.720 H* (0.000-0.034) ng/mL Albumin (3.5-5.0) g/dL Urine Appearance (Clear) Urine RBC (0-5) /hpf Urine WBC (0-5) /hpf Crossmatch Assessment and Plan (1) UTI (urinary tract infection) Status: Acute Code(s): N39.0 - URINARY TRACT INFECTION, SITE NOT SPECIFIED SNOMED Code(s): 33992939 Plan: 1patient presented to hospital with weakness not feeling well patient was hypotensive noticed to have hematuria with abnormal renal ultrasound concerning for mass versus clot in the urinary bladder did have a positive UA concerning for symptomatic urinary tract infection. 2patient with renal insufficiency and high risk of nephrotoxicity. 3we will start the patient on Rocephin 2 g daily while waiting for the culture to finalize. 4await urology evaluation and possible cystoscopy. We will follow on clinical condition and cultures to further adjust medication if needed Thank you for this consultation we will follow the patient along with you Dictation was produced using [employer] dictation software. please excuse any grammatical, word or spelling errors. Time with Patient: Greater than 30
[2024-03-05] MEDS ORDERED: HUMAN PROTHROMBIN COMPLX 500 UNIT/16 ML VIAL IV ONE (11:40)
[2024-03-05 11:48] LABS: Anisocytosis Slight; Basophils # (A) 0.1 k/uL (0-0.2); Basophils % (A) 1 %; Eosinophils % (A) 0 %; HGB 7.6 gm/dL (11.4-16.0); Hypochromasia Slight; Lymphocytes # (A) 1.3 k/uL (1.0-4.8); Lymphocytes % (A) 14 %; MCH 27.6 pg (25.0-35.0); MCHC 32.9 g/dL (31.0-37.0); MCV 83.8 fL (80.0-100.0); Mean Platelet Volume 7.3; Monocytes # (A) 0.5 k/uL (0-1.0); Monocytes % (A) 5 %; Neutrophils # (A) 7.5 k/uL (1.3-7.7); Neutrophils % (A) 78 %; Platelet Count 444 k/uL (150-450); Poikilocytosis Moderate; RBC 2.74 m/uL (3.80-5.40); RDW 18.1 % (11.5-15.5); WBC 9.5 k/uL (3.8-10.6)
--- NOTE | 2024-03-05 13:32 | P.NPCON ---
History of Present Illness - Reason for Consult acute renal failure - History of Present Illness patient is an 83-year-old female with history of hypertension,chronic kidney disease NKF stage IIIB with baseline creatinine around 1.5 to 1.8 milligrams per deciliter.patient also has history of coronary artery disease and CHF who is admitted to the hospital with increased weakness. history of fall prior to admission. Patient was noted to be in A. fib with RVR. She was hypotensive with systolic blood pressure in the 60s and 70S. Significant hematuria noted with history of increased urinary frequency and burning sensation. Hemoglobin was 6.3 and patient has received 1 unit packed RBCs. Status post evaluation by urology with no plans for intervention at this time. Maintained on antibiotics for UTI. Serum creatinine was 2.7 on admission and is at 2.49 today. Previous creatinine 1.59 on 12/01/2023. computed tomography scan shows no evidence of obstructive uropathy. Patient is currently maintained on levo fed. Review of Systems as per HPI. Past Medical History Past Medical History: Atrial Fibrillation, Diabetes Mellitus, Hypertension, Osteoarthritis (OA) Additional Past Medical History / Comment(s): uterine cancer, incontinent of urine History of Any Multi-Drug Resistant Organisms: None Reported Past Surgical History: No Surgical Hx Reported Additional Past Surgical History / Comment(s): cataract & carpal-tunnel bilat. Past Anesthesia/Blood Transfusion Reactions: No Reported Reaction Past Psychological History: No Psychological Hx Reported Smoking Status: Never smoker Past Alcohol Use History: None Reported Past Drug Use History: None Reported - Past Family History Mother Family Medical History: Coronary Artery Disease (CAD), Diabetes Mellitus, Hypertension, Mitral Valve Prolapse (MVP) Father Family Medical History: Hypertension Additional Family Medical History / Comment(s): father hip surgery Medications and Allergies Home Medications Medication Instructions Recorded Confirmed Type Apixaban [Eliquis] 2.5 mg PO BID #60 tab 12/03/23 03/04/24 Rx Atorvastatin [Lipitor] 20 mg PO DAILY #30 tab 12/03/23 03/04/24 Rx Levothyroxine Sodium 25 mcg PO DAILY #30 tab 12/03/23 03/04/24 Rx Cetirizine HCl [Zyrtec] 10 mg PO DAILY PRN 03/04/24 03/04/24 History Clopidogrel [Plavix] 75 mg PO DAILY 03/04/24 03/04/24 History Empagliflozin [Jardiance] 10 mg PO HS 03/04/24 03/04/24 History Furosemide [Lasix] 40 mg PO HS 03/04/24 03/04/24 History Isosorbide Mononitrate ER [Imdur] 15 mg PO DAILY 03/04/24 03/04/24 History Metoprolol Succinate (ER) [Toprol 200 mg PO HS 03/04/24 03/04/24 History XL] Midodrine HCl [ProAmatine] 10 mg PO BID 03/04/24 03/04/24 History Midodrine [ProAmatine] 5 mg PO TID 03/04/24 03/04/24 History Semaglutide [Rybelsus] 7 mg PO DAILY 03/04/24 03/04/24 History Verapamil Sr [Isoptin Sr] 120 mg PO DAILY 03/04/24 03/04/24 History diphenhydrAMINE HCL [Benadryl] 50 mg PO DAILY PRN 03/04/24 03/04/24 History Allergies Allergy/AdvReac Type Severity Reaction Status Date / Time bacitracin Allergy Rash/Hives Verified 03/04/24 17:28 [From Neosporin ([id number])] ibuprofen Allergy Anaphylaxis Verified 03/04/24 17:28 & Rash all over neomycin Allergy Rash/Hives Verified 03/04/24 17:28 [From Neosporin ([id number])] polymyxin B Allergy Rash/Hives Verified 03/04/24 17:28 [From Neosporin ([id number])] Physical Exam Vitals: Vital Signs Temp Pulse Resp BP Pulse Ox 03/05/24 12:00 99.0 F 99 14 116/57 99 03/05/24 11:45 98 19 116/57 100 03/05/24 11:30 101 H 19 104/61 97 03/05/24 11:15 102 H 13 104/67 95 03/05/24 11:00 110 H 25 H 101/51 98 03/05/24 10:45 106 H 24 99/56 97 03/05/24 10:30 109 H 21 108/52 97 03/05/24 10:15 105 H 23 106/61 97 03/05/24 10:00 104 H 15 98/50 99 03/05/24 09:45 108 H 11 L 106/65 93 L 03/05/24 09:30 110 H 17 106/53 99 03/05/24 09:00 94/50 03/05/24 08:45 112 H 14 121/57 99 03/05/24 08:30 109 H 14 153/85 03/05/24 08:15 100 13 80/44 99 03/05/24 08:00 105 H 12 99 03/05/24 07:45 99.2 F 104 H 11 L 108/51 03/05/24 07:30 109 H 14 113/52 100 03/05/24 07:15 110 H 13 100/53 03/05/24 07:00 111 H 27 H 114/61 99 03/05/24 06:50 110 H 22 114/61 03/05/24 06:40 105 H 19 105/49 03/05/24 06:30 112 H 17 114/50 03/05/24 06:20 99 17 114/50 03/05/24 06:10 111 H 11 L 108/47 03/05/24 06:00 112 H 19 110/49 96 03/05/24 05:50 110 H 21 110/49 97 03/05/24 05:40 108 H 15 101/45 97 03/05/24 05:30 112 H 18 101/52 98 03/05/24 05:20 112 H 19 101/52 97 03/05/24 05:10 98 22 103/49 95 03/05/24 05:00 113 H 23 119/67 96 03/05/24 04:50 104 H 19 119/67 99 03/05/24 04:40 107 H 8 L 113/47 100 03/05/24 04:30 98.5 F 105 H 21 109/53 98 03/05/24 04:20 105 H 13 109/53 99 03/05/24 04:10 102 H 14 108/57 100 03/05/24 04:00 97.8 F 113 H 20 109/44 98 03/05/24 03:55 98.4 F 99 20 109/44 99 03/05/24 03:50 104 H 14 109/44 100 03/05/24 03:40 114 H 13 105/59 99 03/05/24 03:35 97.8 F 99 17 105/59 96 03/05/24 03:30 96 17 98/56 99 03/05/24 03:26 98.4 F 103 H 21 98/56 100 03/05/24 03:20 102 H 19 93/50 99 03/05/24 03:10 95 19 96/49 99 03/05/24 02:30 110 H 18 97/54 99 03/05/24 02:00 98 20 95/67 03/05/24 01:50 106 H 19 92/56 03/05/24 01:00 99 12 91/50 98 03/05/24 00:40 106 H 13 106/61 97 03/05/24 00:20 96 12 89/50 94 L 03/05/24 00:10 104 H 15 85/51 100 03/05/24 00:00 98.8 F 96 16 85/51 96 03/04/24 23:30 91/55 03/04/24 23:21 102 H 18 91/55 100 03/04/24 23:20 108 H 16 91/55 95 03/04/24 23:10 110 H 13 84/49 100 03/04/24 23:00 107 H 12 80/50 100 03/04/24 22:50 97 8 L 80/50 100 03/04/24 22:40 102 H 8 L 82/60 100 03/04/24 22:30 120 H 17 84/50 98 03/04/24 22:20 97 7 L 84/50 03/04/24 22:10 111 H 11 L 89/55 91 L 03/04/24 22:00 109 H 15 77/51 100 03/04/24 21:50 99 11 L 77/51 99 03/04/24 21:40 102 H 9 L 76/46 100 03/04/24 21:30 98 17 99/50 97 03/04/24 21:21 100 10 L 99/50 100 03/04/24 21:10 95 15 85/61 98 03/04/24 21:00 102 H 18 76/42 100 03/04/24 20:50 101 H 10 L 76/42 100 03/04/24 20:40 94 13 77/47 98 03/04/24 20:30 99 11 L 77/58 97 03/04/24 20:20 89 8 L 77/58 97 03/04/24 20:10 92 19 81/41 100 03/04/24 20:00 91 7 L 78/50 100 03/04/24 19:50 102 H 5 L 78/50 99 03/04/24 19:40 99 8 L 79/41 100 03/04/24 19:30 86 12 76/53 79 L 03/04/24 19:20 89 13 76/53 96 03/04/24 19:10 87 12 63/48 100 03/04/24 19:00 93 10 L 86/41 97 03/04/24 18:50 85 10 L 86/41 98 03/04/24 18:40 89 10 L 84/50 100 03/04/24 18:10 85 14 68/41 95 03/04/24 17:11 86 18 97/63 99 03/04/24 15:32 97.7 F 94 20 84/60 99 Intake and Output 03/04/24 03/05/24 03/05/24 22:59 06:59 14:59 Intake Total 1493.505 848.863 Output Total 600 360 Balance 893.505 488.863 Intake: IV 910 780 Sodium Chloride 0.9% 1, 910 780 000 ml @ 130 mls/hr IV . Q7H42M [facility] Rx#:[id number] Intake, IV Titration 1.505 68.863 Amount Norepinephrine 32 mg In 1.505 13.863 Sodium Chloride 0.9% 218 ml @ 0.03 MCG/KG/MIN 0. 734 mls/hr IV .Q24H [facility] Rx#:[id number] cefTRIAXone 2 gm In 55 Sodium Chloride 0.9% 50 ml @ 100 mls/hr IVPB Q24HR [facility] Rx#:[id number] Blood Product 582 Rc Pheresis 2 As3 Unit 291 [id number] Output: Urine 600 360 Other: Voiding Method Indwelling Catheter Weight 52.163 kg 67.3 kg patient is awake, comfortable, in no acute distress. Examination of the heart S1 and S2 Examination the lungs decreased breath sounds at the bases Abdomen is soft nontender Examination of lower extremities shows no significant edema. BAR TURNER exam grossly intact Results - Lab Results Most recent lab results Calcium 7.7 mg/dL (8.4-10.2) L 03/05/24 06:08 Magnesium 2.2 mg/dL (1.6-2.3) 03/04/24 15:51 03/05/24 11:33 03/05/24 06:08 Assessment and Plan Assessment: 1. Acute kidney injury, ATN, nonoliguric secondary to hypotension and severe anemia. Maintained on IV fluids. Maintained on antibiotics for UTI. No evidence of obstruction on CT scan. 2. Hematuria associated with anticoagulation. underlying UTI noted as well. No bladder mass seen on imaging studies. patient is being followed by urology. Continue frequent flushing off the catheter. 3. A. fib with RVR 4. Hypotension secondary to underlying infection and severe anemia. history of hypotension as outpatient as well. Patient was maintained on midodrine. Check random cortisol level. 5. Chronic kidney disease NKF stage IIIB with baseline creatinine about 1.6-1.8 mg/dL. etiology is likely diabetic kidney disease. 6. History of CHF with preserved ejection fraction. EF 55-60% on echocardiogram in July 2023. 7. UTI, urine culture is pending. Patient is maintained on Rocephin. No abnormalities noted on imaging studies. Plan: continue IV fluids Add IV iron Continue frequent flushing off Streeter catheter due to significant hematuria. Repeat labs in a.m. Check cortisol level thank you for the consultation. We will continue to follow the patient with you during her hospitalization.
--- NOTE | 2024-03-05 14:05 | P.CRDCN ---
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 She underwent PCI of left main into LAD. P ronal has also had multiple hospital visits with A-fib RVR's past. There is also concern of noncompliance to medications. It is unclear if patient has been taking dual antiplatelet therapy since her PCI. This time patient presented to the hospital because of generalized weakness and fatigue and a fall. Apparently patient was found in the bathroom. Patient reported that she became severely lightheaded and could not get up from the sitting position in the bathroom commode. She was down for few hours before her son found her and called the EMS. On admission she was hypotensive and dehydrated along with atrial fibrillation with RVR. Her blood pressure was 80 over 60 mmHg. ECG showed atrial fibrillation with heart rate in the beats were minute, incomplete left bundle branch block with diffuse ST depressions Her labs showed NT proBNP of 18,000, troponin of 0.067, repeat 0.72. Creatinine 2.49, baseline creatinine 1.6 Chest x-ray did not show significant pulm congestion. Pelvic CT showed hypodensity seen in the urinary bladder may reflect blood byproducts. REVIEW OF SYSTEMS 14 point review of system is negative except what is mentioned above in HPI. PHYSICAL EXAMINATION Vital signs reviewed. Head: Normocephalic. Eyes: Sclerae nonicteric. Neck: Brisk carotid upstroke, no jugular venous distention. Lungs: Poor inspiratory effort. Heart: irregularly irregular, S1-S2, , 2/6 systolic murmur . Abdomen: Soft nontender, positive bowel sounds. Extremities: 1+ edema, Neuro: no focal deficits. Detailed neuro exam was not performed. ASSESSMENT Elevated troponin, likely type II NSTEMI in setting of BOLA, sepsis and anemia Acute on chronic systolic heart failure, CAD s/p PCI in October 2023. S/p PCI to left main into LAD 4 x 15 mm PRANAY Atrial fibrillation with RVR, currently rate controlled Acute blood loss anemia due to hematuria Severe sepsis BOLA on CKD Hyperlipidemia Hypothyroidism Medication non compliance Echo July 2023: EF 55%, severe LVH, moderate MR, PLAN Continue aspirin 81 mg. Not able to do dual antiplatelet therapy due to active hematuria and acute blood loss anemia requiring transfusion. Once hemoglobin is stabilized today, will start Plavix tomorrow. Not able to do IV heparin due to acute blood loss anemia from hematuria Obtain echocardiogram Start low-dose metoprolol succinate 12.5 mg daily. Uptitrate as tolerated. IV fluids and IV antibiotics Monitor renal function electrolytes Transfuse blood if hemoglobin less than 7. Miguel Ram MD, FACC, RPVI Thank you for allowing [facility] to participate in this patient's care. Feel free to reach out in case of any followup questions. Past Medical History Past Medical History: Atrial Fibrillation, Diabetes Mellitus, Hypertension, Osteoarthritis (OA) Additional Past Medical History / Comment(s): uterine cancer, incontinent of urine History of Any Multi-Drug Resistant Organisms: None Reported Past Surgical History: No Surgical Hx Reported Additional Past Surgical History / Comment(s): cataract & carpal-tunnel bilat. Past Anesthesia/Blood Transfusion Reactions: No Reported Reaction Past Psychological History: No Psychological Hx Reported Smoking Status: Never smoker Past Alcohol Use History: None Reported Past Drug Use History: None Reported - Past Family History Mother Family Medical History: Coronary Artery Disease (CAD), Diabetes Mellitus, Hypertension, Mitral Valve Prolapse (MVP) Father Family Medical History: Hypertension Additional Family Medical History / Comment(s): father hip surgery Medications and Allergies Home Medications Medication Instructions Recorded Confirmed Type Apixaban [Eliquis] 2.5 mg PO BID #60 tab 12/03/23 03/04/24 Rx Atorvastatin [Lipitor] 20 mg PO DAILY #30 tab 12/03/23 03/04/24 Rx Levothyroxine Sodium 25 mcg PO DAILY #30 tab 12/03/23 03/04/24 Rx Cetirizine HCl [Zyrtec] 10 mg PO DAILY PRN 03/04/24 03/04/24 History Clopidogrel [Plavix] 75 mg PO DAILY 03/04/24 03/04/24 History Empagliflozin [Jardiance] 10 mg PO HS 03/04/24 03/04/24 History Furosemide [Lasix] 40 mg PO HS 03/04/24 03/04/24 History Isosorbide Mononitrate ER [Imdur] 15 mg PO DAILY 03/04/24 03/04/24 History Metoprolol Succinate (ER) [Toprol 200 mg PO HS 03/04/24 03/04/24 History XL] Midodrine HCl [ProAmatine] 10 mg PO BID 03/04/24 03/04/24 History Midodrine [ProAmatine] 5 mg PO TID 03/04/24 03/04/24 History Semaglutide [Rybelsus] 7 mg PO DAILY 03/04/24 03/04/24 History Verapamil Sr [Isoptin Sr] 120 mg PO DAILY 03/04/24 03/04/24 History diphenhydrAMINE HCL [Benadryl] 50 mg PO DAILY PRN 03/04/24 03/04/24 History Allergies Allergy/AdvReac Type Severity Reaction Status Date / Time bacitracin Allergy Rash/Hives Verified 03/04/24 17:28 [From Neosporin ([id number])] ibuprofen Allergy Anaphylaxis Verified 03/04/24 17:28 & Rash all over neomycin Allergy Rash/Hives Verified 03/04/24 17:28 [From Neosporin ([id number])] polymyxin B Allergy Rash/Hives Verified 03/04/24 17:28 [From Neosporin ([id number])] Physical Exam Vitals: Vital Signs Temp Pulse Resp BP Pulse Ox 03/05/24 13:30 118 H 12 03/05/24 13:00 105 H 21 03/05/24 12:30 125 H 17 92/55 03/05/24 12:00 99.0 F 99 14 116/57 99 03/05/24 11:45 98 19 116/57 100 03/05/24 11:30 101 H 19 104/61 97 03/05/24 11:15 102 H 13 104/67 95 03/05/24 11:00 110 H 25 H 101/51 98 03/05/24 10:45 106 H 24 99/56 97 03/05/24 10:30 109 H 21 108/52 97 03/05/24 10:15 105 H 23 106/61 97 03/05/24 10:00 104 H 15 98/50 99 03/05/24 09:45 108 H 11 L 106/65 93 L 03/05/24 09:30 110 H 17 106/53 99 03/05/24 09:00 94/50 06/10/24 08:45 112 H 14 121/57 99 03/05/24 08:30 109 H 14 153/85 03/05/24 08:15 100 13 80/44 99 03/05/24 08:00 105 H 12 99 03/05/24 07:45 99.2 F 104 H 11 L 108/51 03/05/24 07:30 109 H 14 113/52 100 03/05/24 07:15 110 H 13 100/53 03/05/24 07:00 111 H 27 H 114/61 99 03/05/24 06:50 110 H 22 114/61 03/05/24 06:40 105 H 19 105/49 03/05/24 06:30 112 H 17 114/50 03/05/24 06:20 99 17 114/50 03/05/24 06:10 111 H 11 L 108/47 03/05/24 06:00 112 H 19 110/49 96 03/05/24 05:50 110 H 21 110/49 97 03/05/24 05:40 108 H 15 101/45 97 03/05/24 05:30 112 H 18 101/52 98 03/05/24 05:20 112 H 19 101/52 97 03/05/24 05:10 98 22 103/49 95 03/05/24 05:00 113 H 23 119/67 96 03/05/24 04:50 104 H 19 119/67 99 03/05/24 04:40 107 H 8 L 113/47 100 03/05/24 04:30 98.5 F 105 H 21 109/53 98 03/05/24 04:20 105 H 13 109/53 99 03/05/24 04:10 102 H 14 108/57 100 03/05/24 04:00 97.8 F 113 H 20 109/44 98 03/05/24 03:55 98.4 F 99 20 109/44 99 03/05/24 03:50 104 H 14 109/44 100 03/05/24 03:40 114 H 13 105/59 99 03/05/24 03:35 97.8 F 99 17 105/59 96 03/05/24 03:30 96 17 98/56 99 03/05/24 03:26 98.4 F 103 H 21 98/56 100 03/05/24 03:20 102 H 19 93/50 99 03/05/24 03:10 95 19 96/49 99 03/05/24 02:30 110 H 18 97/54 99 03/05/24 02:00 98 20 95/67 03/05/24 01:50 106 H 19 92/56 03/05/24 01:00 99 12 91/50 98 03/05/24 00:40 106 H 13 106/61 97 03/05/24 00:20 96 12 89/50 94 L 03/05/24 00:10 104 H 15 85/51 100 03/05/24 00:00 98.8 F 96 16 85/51 96 03/04/24 23:30 91/55 03/04/24 23:21 102 H 18 91/55 100 03/04/24 23:20 108 H 16 91/55 95 03/04/24 23:10 110 H 13 84/49 100 03/04/24 23:00 107 H 12 80/50 100 03/04/24 22:50 97 8 L 80/50 100 03/04/24 22:40 102 H 8 L 82/60 100 03/04/24 22:30 120 H 17 84/50 98 03/04/24 22:20 97 7 L 84/50 03/04/24 22:10 111 H 11 L 89/55 91 L 03/04/24 22:00 109 H 15 77/51 100 03/04/24 21:50 99 11 L 77/51 99 03/04/24 21:40 102 H 9 L 76/46 100 03/04/24 21:30 98 17 99/50 97 03/04/24 21:21 100 10 L 99/50 100 03/04/24 21:10 95 15 85/61 98 03/04/24 21:00 102 H 18 76/42 100 03/04/24 20:50 101 H 10 L 76/42 100 03/04/24 20:40 94 13 77/47 98 03/04/24 20:30 99 11 L 77/58 97 03/04/24 20:20 89 8 L 77/58 97 03/04/24 20:10 92 19 81/41 100 03/04/24 20:00 91 7 L 78/50 100 03/04/24 19:50 102 H 5 L 78/50 99 03/04/24 19:40 99 8 L 79/41 100 03/04/24 19:30 86 12 76/53 79 L 03/04/24 19:20 89 13 76/53 96 03/04/24 19:10 87 12 63/48 100 03/04/24 19:00 93 10 L 86/41 97 03/04/24 18:50 85 10 L 86/41 98 03/04/24 18:40 89 10 L 84/50 100 03/04/24 18:10 85 14 68/41 95 03/04/24 17:11 86 18 97/63 99 03/04/24 15:32 97.7 F 94 20 84/60 99 Intake and Output 03/04/24 03/05/24 03/05/24 22:59 06:59 14:59 Intake Total 1493.505 978.863 Output Total 600 390 Balance 893.505 588.863 Intake: IV 910 910 Sodium Chloride 0.9% 1, 910 910 000 ml @ 130 mls/hr IV . Q7H42M [facility] Rx#:[id number] Intake, IV Titration 1.505 68.863 Amount Norepinephrine 32 mg In 1.505 13.863 Sodium Chloride 0.9% 218 ml @ 0.03 MCG/KG/MIN 0. 734 mls/hr IV .Q24H [facility] Rx#:[id number] cefTRIAXone 2 gm In 55 Sodium Chloride 0.9% 50 ml @ 100 mls/hr IVPB Q24HR [facility] Rx#:[id number] Blood Product 582 Rc Pheresis 2 As3 Unit 291 [id number] Output: Urine 600 390 Other: Voiding Method Indwelling Catheter Weight 52.163 kg 67.3 kg Results 03/05/24 11:33 03/05/24 06:08 Cardiac Enzymes 03/04/24 03/04/24 03/05/24 Range/Units 15:51 15:51 01:08 AST 21 (14-36) U/L Troponin I <0.012 0.067 H* (0.000-0.034) ng/mL 03/05/24 Range/Units 06:08 AST (14-36) U/L Troponin I 0.720 H* (0.000-0.034) ng/mL Coagulation 03/04/24 Range/Units 15:51 PT 12.0 (10.0-12.5) sec APTT 25.4 (22.0-30.0) sec CBC 03/04/24 03/05/24 03/05/24 Range/Units 15:51 01:08 06:08 WBC 9.4 9.0 10.6 (3.8-10.6) k/uL RBC 3.60 L 2.49 L 2.90 L (3.80-5.40) m/uL Hgb 8.8 L 6.3 L* D 7.6 L (11.4-16.0) gm/dL Hct 28.7 L 20.1 L 24.0 L (34.0-46.0) % Plt Count 471 H 443 491 H (150-450) k/uL 03/05/24 Range/Units 11:33 WBC 9.5 (3.8-10.6) k/uL RBC 2.74 L (3.80-5.40) m/uL Hgb 7.6 L (11.4-16.0) gm/dL Hct 23.0 L (34.0-46.0) % Plt Count 444 (150-450) k/uL Comprehensive Metabolic Panel 03/04/24 03/05/24 Range/Units 15:51 06:08 Sodium 130 L 134 L (137-145) mmol/L Potassium 3.3 L 3.1 L (3.5-5.1) mmol/L Chloride 98 106 (98-107) mmol/L Carbon Dioxide 23 21 L (22-30) mmol/L BUN 54 H 52 H (7-17) mg/dL Creatinine 2.72 H 2.49 H (0.52-1.04) mg/dL Glucose 275 H 149 H (74-99) mg/dL Calcium 8.3 L 7.7 L (8.4-10.2) mg/dL AST 21 (14-36) U/L ALT 14 (4-34) U/L Alkaline Phosphatase 92 (38-126) U/L Total Protein 6.4 (6.3-8.2) g/dL Albumin 3.1 L (3.5-5.0) g/dL Current Medications Generic Name Dose Route Start Last Admin Trade Name Freq PRN Reason Stop Dose Admin Aspirin 81 mg 03/06/24 09:00 Aspirin 81 Mg PO DAILY [facility] Atorvastatin Calcium 20 mg 03/05/24 09:00 03/05/24 10:51 Atorvastatin 20 Mg Tab PO 20 mg DAILY [facility] Administration Dapagliflozin 5 mg 03/05/24 21:00 Dapagliflozin Propanediol 5 Mg Tablet PO HS [facility] Diphenhydramine HCl 50 mg 03/05/24 08:24 Diphenhydramine 25 Mg Cap PO DAILY PRN Allergy Symptoms Famotidine 20 mg 03/05/24 09:00 03/05/24 10:51 Famotidine 20 Mg Tab PO 20 mg DAILY [facility] Administration Sodium Chloride 1,000 mls @ 130 mls/hr 03/04/24 21:15 03/05/24 13:39 Saline 0.9% IV 130 mls/hr .Q7H42M [facility] Administration Norepinephrine Bitartrate 32 250 mls @ 0.734 mls/hr 03/04/24 22:45 03/05/24 12:12 mg/ Sodium Chloride IV 0.07 mcg/kg/min .Q24H [facility] 1.712 mls/hr Titration Protocol 0.03 MCG/KG/MIN Ceftriaxone Sodium 2 gm/ 50 mls @ 100 mls/hr 03/05/24 10:00 03/05/24 10:50 Sodium Chloride IVPB 100 mls/hr Q24HR [facility] Administration Protocol Ferric Sodium Gluconate 125 mg 110 mls @ 100 mls/hr 03/05/24 14:30 / Sodium Chloride IVPB 03/08/24 14:31 DAILY [facility] Isosorbide Mononitrate 15 mg 03/05/24 09:00 03/05/24 10:50 Isosorbide Mononitrate Er 15 Mg Tab PO Not Given DAILY [facility] Levothyroxine Sodium 25 mcg 03/05/24 06:30 03/05/24 08:45 Levothyroxine 25 Mcg Tab PO 25 mcg DAILY@0630 [facility] Administration Loratadine 10 mg 03/05/24 08:24 Loratadine 10 Mg Tab PO DAILY PRN Allergy Symptoms Metoprolol Succinate 12.5 mg 03/05/24 14:15 Metoprolol Succinate (Er) 25 Mg Tab.Er.24h PO DAILY [facility] Naloxone HCl 0.2 mg 03/04/24 21:13 Naloxone 0.4 Mg/Ml 1 Ml Vial IV Q2M PRN Opioid Reversal Intake and Output 03/04/24 03/05/24 03/05/24 22:59 06:59 14:59 Intake Total 1493.505 978.863 Output Total 600 390 Balance 893.505 588.863 Intake: IV 910 910 Sodium Chloride 0.9% 1, 910 910 000 ml @ 130 mls/hr IV . Q7H42M [facility] Rx#:[id number] Intake, IV Titration 1.505 68.863 Amount Norepinephrine 32 mg In 1.505 13.863 Sodium Chloride 0.9% 218 ml @ 0.03 MCG/KG/MIN 0. 734 mls/hr IV .Q24H [facility] Rx#:[id number] cefTRIAXone 2 gm In 55 Sodium Chloride 0.9% 50 ml @ 100 mls/hr IVPB Q24HR [facility] Rx#:[id number] Blood Product 582 Rc Pheresis 2 As3 Unit 291 [id number] Output: Urine 600 390 Other: Voiding Method Indwelling Catheter Weight 52.163 kg 67.3 kg 03/05/24 11:33 03/05/24 06:08
--- NOTE | 2024-03-05 14:26 | CA ---
Transthoracic Echo Report Name: Martín Alcaraz Age: 83 Gender: F : 1940 Exam Date: 03/05/2024 07:50 Exam Location: [place] [facility] Ht (in): 62 Wt (lb): 115 Ordering Physician: Vishnu Cruz Attending/Referring Phys: Personal Care Aide Amanda Nieves RDCS Procedure CPT: Indications: evaluate LV function Cardiac Hx: Technical Quality: Technically difficult study Contrast 1: Definity Total Dose (mL): 1 Contrast 2: Total Dose (mL): MEASUREMENTS (Male / Female) Normal Values 2D ECHO LV Diastolic Diameter PLAX 3.5 cm 4.2 - 5.9 / 3.9 - 5.3 cm LV Systolic Diameter PLAX 2.4 cm IVS Diastolic Thickness 1.2 cm 0.6 - 1.0 / 0.6 - 0.9 cm LVPW Diastolic Thickness 1.2 cm 0.6 - 1.0 / 0.6 - 0.9 cm LV Relative Wall Thickness 0.7 RV Internal Dim ED PLAX 2.6 cm LVOT Diameter 2.2 cm LA Systolic Diameter LX 3.6 cm 3.0 - 4.0 / 2.7 - 3.8 cm LA Volume 88.7 cm??? 18 - 58 / 22 - 52 cm??? LA Volume Index 58.6 cm???/m??? 16 - 28 cm???/m??? M-MODE Aortic Root Diameter MM 3.4 cm AV Cusp Separation MM 1.8 cm DOPPLER AV Peak Velocity 178.9 cm/s AV Peak Gradient 12.8 mmHg AV Mean Velocity 110.8 cm/s AV Mean Gradient 6.0 mmHg AV Velocity Time Integral 35.3 cm MV Area PHT 3.1 cm??? MV Deceleration Time 230.1 ms TR Peak Velocity 300.9 cm/s TR Peak Gradient 36.2 mmHg Right Ventricular Systolic Press 39.4 mmHg FINDINGS Left Ventricle Left ventricular ejection fraction is estimated at 65-70 %. Small left ventricular cavity. Mildly increased septal wall thickness. Mildly increased posterior wall thickness. Normal left ventricular wall motion. Right Ventricle Normal right ventricular size and function. Mild pulmonary hypertension. Right Atrium Normal right atrial size. No right atrial thrombus or mass seen. Left Atrium Severely increased left atrial volume. Mildly increased left atrial area. Mitral Valve Mitral valve thickened. Mild mitral annular calcification. No mitral stenosis, regurgitation or prolapse. Aortic Valve Trileaflet aortic valve. Thickened aortic valve without stenosis. No aortic regurgitation. Trileaflet aortic valve. Mild aortic regurgitation. Tricuspid Valve Structurally normal tricuspid valve. Mild tricuspid regurgitation. Pulmonic Valve Pulmonic valve not well visualized. Pericardium No pericardial or pleural effusion. Aorta Normal size aortic root and proximal ascending aorta. CONCLUSIONS Normal LV send systolic function with mild LVH Previewed by: Dr. Cornell Vee MD (Electronically Signed) Final Date: 05 March 2024 14:26
[2024-03-05] MEDS: METOPROLOL SUCCINATE (ER) 25 MG TAB.ER.24H PO SCH (15:10)
[2024-03-05] MEDS: SODIUM FERRIC GLUCONAT-SUCROSE 125 MG in SODIUM CHLORIDE 0.9% 100 ML IVPB SCH (15:35)
--- NOTE | 2024-03-05 16:49 | P.PN ---
Progress Note - Text Progress Note Date: 03/05/24 The patiet was seen earlier today for hematuria. Based on the ua, her history of incomplete voiding this patient has a hemorrhagic cystitis aggravated by her anticaogulation. Her ct scan shows normal upper tracts and probable clot in her bladder. She will eventually need a cystoscopy but Id prefer to wait until the uti is treated and she is off the anticoagulation
[2024-03-05] MEDS: POTASSIUM CHLORIDE ER 20 MEQ TAB.ER PO SCH (17:02)
[2024-03-05 19:35] LABS: Anisocytosis Slight; Basophils % (A) 1 %; Eosinophils % (A) 0 %; HCT 21.4 % (34.0-46.0); Hypochromasia Slight; Lymphocytes # (A) 1.1 k/uL (1.0-4.8); Lymphocytes % (A) 16 %; MCH 27.1 pg (25.0-35.0); MCHC 31.9 g/dL (31.0-37.0); MCV 84.8 fL (80.0-100.0); Mean Platelet Volume 7.1; Microcytosis Slight; Monocytes # (A) 0.4 k/uL (0-1.0); Monocytes % (A) 6 %; Neutrophils # (A) 5.4 k/uL (1.3-7.7); Neutrophils % (A) 76 %; Platelet Count 393 k/uL (150-450); Poikilocytosis Slight; RBC 2.53 m/uL (3.80-5.40); RDW 18.7 % (11.5-15.5); WBC 7.1 k/uL (3.8-10.6)
[2024-03-05 19:50] LABS: HGB 6.8 gm/dL (11.4-16.0)
[2024-03-05] MEDS: DAPAGLIFLOZIN PROPANEDIOL 5 MG TABLET PO SCH (20:41)
[2024-03-06 06:22] LABS: Anisocytosis Slight; Basophils # (A) 0.1 k/uL (0-0.2); Basophils % (A) 1 %; Eosinophils % (A) 0 %; HCT 24.3 % (34.0-46.0); HGB 7.8 gm/dL (11.4-16.0); Hypochromasia Slight; Lymphocytes # (A) 0.9 k/uL (1.0-4.8); Lymphocytes % (A) 12 %; MCH 26.7 pg (25.0-35.0); MCHC 32.1 g/dL (31.0-37.0); MCV 83.2 fL (80.0-100.0); Monocytes # (A) 0.4 k/uL (0-1.0); Monocytes % (A) 6 %; Neutrophils # (A) 6.1 k/uL (1.3-7.7); Neutrophils % (A) 81 %; Platelet Count 351 k/uL (150-450); Poikilocytosis Slight; RBC 2.92 m/uL (3.80-5.40); RDW 18.3 % (11.5-15.5); WBC 7.5 k/uL (3.8-10.6)
[2024-03-06 06:37] LABS: ALT 12 U/L (4-34); AST 25 U/L (14-36); African American GFR (CKD) 23 (>60 ml/min/1.73 sqM); Albumin 2.2 g/dL (3.5-5.0); Alkaline Phosphatase 69 U/L (38-126); Anion Gap 6 mmol/L; Blood Urea Nitrogen 43 mg/dL (7-17); Calcium 7.5 mg/dL (8.4-10.2); Carbon Dioxide 17 mmol/L (22-30); Chloride 112 mmol/L (98-107); Glucose 121 mg/dL (74-99); Non-African American GFR(CKD) 20 (>60 ml/min/1.73 sqM); Potassium 3.4 mmol/L (3.5-5.1); Sodium 135 mmol/L (137-145); Total Bilirubin 0.5 mg/dL (0.2-1.3); Total Protein 5.1 g/dL (6.3-8.2)
--- NOTE | 2024-03-06 07:43 | P.PN ---
Subjective Progress Note Date: 03/06/24 the patient is in the ICU with cardiac and pulmonary issues. She is also anemic. She has had gross hematuria for several weeks. She has an infection probably leading to hemorrhagic cystitis aggravated by anticoagulation. Urine culture is growing a gram-negative júnior. Catheters switch to a larger catheter last night and a lot of old blood was irrigated out of the bladder. Objective - Vital Signs Vital signs: Vital Signs Temp 98.5 F 03/06/24 06:00 Pulse 125 H 03/06/24 07:00 Resp 31 H 03/06/24 07:00 BP 110/60 03/06/24 07:00 Pulse Ox 100 03/06/24 07:00 FiO2 Intake & Output 03/05/24 03/06/24 03/06/24 18:59 06:59 18:59 Intake Total 6222.377 7513.232 130 Output Total 560 680 35 Balance 6638.124 2731.232 95 Weight 68.7 kg Intake: IV 1560 1560 130 Sodium Chloride 0.9% 1, 1560 1560 130 000 ml @ 130 mls/hr IV . Q7H42M [facility] Rx#:[id number] Intake, IV Titration 226.751 5.232 Amount Empty Bag 1 bag @ 3 UNIT/ 50 KG/MIN 472.281 mls/hr IV .Q11M [facility] with Human Prothrombin Complx 2,052 unit Rx#:[id number] Norepinephrine 32 mg In 21.751 5.232 Sodium Chloride 0.9% 218 ml @ 0.03 MCG/KG/MIN 0. 734 mls/hr IV .Q24H [facility] Rx#:[id number] Sodium Ferric Gluconat- 100 Sucrose 125 mg In Sodium Chloride 0.9% 100 ml @ 100 mls/hr IVPB DAILY [facility] Rx#:[id number] cefTRIAXone 2 gm In 55 Sodium Chloride 0.9% 50 ml @ 100 mls/hr IVPB Q24HR [facility] Rx#:[id number] Blood Product 310 Rc As-1 Unit 310 [id number] Output: Urine 560 680 35 Other: Voiding Method Indwelling Catheter Indwelling Catheter # Bowel Movements 1 - Labs CBC & Chem 7: 03/06/24 05:37 03/06/24 05:37 Labs: Abnormal Lab Results - Last 24 Hours (Table) 06/07/1903/05/24 03/05/24 Range/Units 01:08 01:53 11:33 RBC 2.74 L (3.80-5.40) m/uL Hgb 7.6 L (11.4-16.0) gm/dL Hct 23.0 L (34.0-46.0) % RDW 18.1 H (11.5-15.5) % Lymphocytes # (1.0-4.8) k/uL Sodium (137-145) mmol/L Potassium (3.5-5.1) mmol/L Chloride (98-107) mmol/L Carbon Dioxide (22-30) mmol/L BUN (7-17) mg/dL Creatinine (0.52-1.04) mg/dL Glucose (74-99) mg/dL Calcium (8.4-10.2) mg/dL Iron 13 L (50-170) UG/DL % Saturation 5.44 L (12.00-45.00) Transferrin 171.0 L (204.0-354.0) mg/dL Total Protein (6.3-8.2) g/dL Albumin (3.5-5.0) g/dL Crossmatch See Detail 03/05/24 03/05/24 03/06/24 Range/Units 14:38 19:00 05:37 RBC 2.53 L 2.92 L (3.80-5.40) m/uL Hgb 6.8 L* 7.8 L (11.4-16.0) gm/dL Hct 21.4 L 24.3 L (34.0-46.0) % RDW 18.7 H 18.3 H (11.5-15.5) % Lymphocytes # 0.9 L (1.0-4.8) k/uL Sodium (137-145) mmol/L Potassium 3.1 L (3.5-5.1) mmol/L Chloride (98-107) mmol/L Carbon Dioxide (22-30) mmol/L BUN (7-17) mg/dL Creatinine (0.52-1.04) mg/dL Glucose (74-99) mg/dL Calcium (8.4-10.2) mg/dL Iron (50-170) UG/DL % Saturation (12.00-45.00) Transferrin (204.0-354.0) mg/dL Total Protein (6.3-8.2) g/dL Albumin (3.5-5.0) g/dL Crossmatch 03/06/24 Range/Units 05:37 RBC (3.80-5.40) m/uL Hgb (11.4-16.0) gm/dL Hct (34.0-46.0) % RDW (11.5-15.5) % Lymphocytes # (1.0-4.8) k/uL Sodium 135 L (137-145) mmol/L Potassium 3.4 L (3.5-5.1) mmol/L Chloride 112 H (98-107) mmol/L Carbon Dioxide 17 L (22-30) mmol/L BUN 43 H (7-17) mg/dL Creatinine 2.28 H (0.52-1.04) mg/dL Glucose 121 H (74-99) mg/dL Calcium 7.5 L (8.4-10.2) mg/dL Iron (50-170) UG/DL % Saturation (12.00-45.00) Transferrin (204.0-354.0) mg/dL Total Protein 5.1 L (6.3-8.2) g/dL Albumin 2.2 L (3.5-5.0) g/dL Crossmatch Microbiology - Last 24 Hours (Table) 03/04/24 19:20 Blood Culture - Preliminary Blood 03/04/24 19:05 Blood Culture - Preliminary Blood 03/04/24 18:31 Urine Culture - Preliminary Urine,Clean Catch Gram Neg Bacilli Assessment and Plan Assessment: impression: Gross hematuria secondary to hemorrhagic cystitis aggravated by anticoagulation. Recommendations: The catheter can can be irrigated when necessary. Hopefully th e urine will clear in the near future. Cultures are pending. She'll need cystoscopy but I would prefer to wait until the inflammation has subsided.
[2024-03-06] MEDS: ASPIRIN 81 MG PO SCH (09:02)
[2024-03-06] MEDS ORDERED: Potassium Replacement Protocol 1 EACH MISC MISCELLANE PRN (09:14)
[2024-03-06] MEDS: POTASSIUM CHLORIDE ER 20 MEQ TAB.ER PO SCH (09:40)
[2024-03-06] MEDS: METOPROLOL TARTRATE 25 MG TAB PO SCH (09:44)
[2024-03-06] MEDS: LORATADINE 10 MG TAB PO PRN (09:44)
--- NOTE | 2024-03-06 12:11 | P.PN ---
Subjective Progress Note Date: 03/06/24 Patient is a 83-year-old white female with past medical history significant for coronary artery disease with recent stent, valvular heart disease, atrial fibrillation anticoagulated on Eliquis, hypertension, diabetes mellitus, uterine cancer. Of note, patient had a recent hospitalization September, for non-ST elevation NV and received a stent to the LAD. Patient presented to emergency room yesterday afternoon with a chief complaint of generalized weakness and fatigue and she had a fall. She was apparently in the bathroom where she went to get up and became lightheaded and fell. She states that her son was at work at this time, he found her when he came home. She was on the ground for a co uple hours. States that she did hit her head and right chest. Did not have anything to eat or drink all day. Her son was the one that called 911. She states that over the last several days she has been generally weak. CT of the brain without contrast did not show any acute intracranial abnormality. There is atrophy and chronic microvessel ischemic white matter changes. While being evaluated by the ER room physician, she was noted to be hypotensive. She has been fluid resuscitated with 1 L of normal saline bolus, and currently has normal saline infusing at 130 MLS per hour. She does take midodrine outpatient. After the 1 L normal saline bolus, patient remained hypotensive, and my sup ervising physician recommended ICU monitoring. Patient is currently in the emergency department, room 7. She appears fairly comfortable. She is on room air. SpO2 100%. Blood pressure currently 85/61 mmHg. Heart rhythm appears to be atrial fibrillation with a rate of 118 bpm. Norepinephrine has not been started yet. She denies any radiating chest pain, there is some localized reproducible right-sided chest pain where she impacted on fall. Denies any heart palpitations or syncopal events. She has a pure wick suction catheter, there is presumed gross hematuria in the canister. She is not able to tell me how long this has been occurring for. She denies kidney stones. She is on Eliquis outpatient. Patient does admit to some continuous pelvic discomfort/pressure. No flank pain. No burning with urination, no increased urinary frequency. She is chronically incontinent to urine. She has noted blood clots in her underwear. She has remote history of uterine cancer. She does not think this is vaginal bleeding. She received a dose of Rocephin in the emergency room for possible UTI. Urinalysis showing hina blood and WBCs. Culture is pending. She is afebrile. CBC without leukocytosis. Hemoglobin 8.8 g/dL, hematocrit 28.7. Platelets 471. CMP on arrival: Sodium 130, potassium 3.3, chloride 98, serum bicarb 23, BUN 54, creatinine 2.72, glucose 275. Lactic acid originally 3.1 and down to 1.7. LFTs not elevated. EKG done on arrival showed atrial fibrillation with a rate of [address] depressions in the lateral leads. Troponin less than 0.012. NT proBNP 19,900. Chest x-ray shows stable cardiac silhouette, no pulmonary vascular congestion or edema, no acute infiltrates, no pleural effusions or pneumothoraces. She is going to be monitored in the intensive care unit, and transferred once bed available. On 03/06/2024, the patient continues to have hematuria although this has somewhat improved compared to yesterday. Urine output is still bloody and the intensity of the blood is less compared to yesterday. Noted the patient drop in hemoglobin yesterday down to 6.8 and she was given additional unit of packed RBC making a total of 2 units of packed RBC and hemoglobin is currently up to 7.8. She remains on normal saline at the rate of 130 cc an hour. The norepinephrine infusion was discontinued around 5:00 this morning. She is in atrial fibrilla tion. She is slightly tachycardic. Urine culture is showing gram-negative bacillus and the patient is currently on IV Rocephin. The WBC count is at 7.5, hemoglobin 7.8 and a platelet count of 351. Creatinine is improving is currently down to 2.2 again of 43, serum bicarb is at 17 with a sodium level of 135 and a potassium level of 3.4 and this needs to be replaced. The cortisol level is at 19.2. This was a random cortisol level. Echocardiogram was also done on 03/05/2024 revealing a ejection fraction of 65 to 70%, small LV cavity, mildly increased septal wall thickening, mild increase in the posterior wall thickening, no significant valvular abnormalities noted. Mild LVH. Noted the p atient was given Kcentra yesterday. The patient is currently off anticoagulation. Objective - Vital Signs Vital signs: Vital Signs Temp 98.3 F 03/06/24 08:00 Pulse 124 H 03/06/24 09:00 Resp 24 03/06/24 09:00 BP 111/55 03/06/24 09:00 Pulse Ox 97 03/06/24 09:00 FiO2 Intake & Output 03/05/24 03/06/24 03/06/24 18:59 06:59 18:59 Intake Total 0324.600 8483.232 780 Output Total 560 680 95 Balance 6724.761 6842.232 685 Weight 68.7 kg Intake: IV 1560 1560 390 Sodium Chloride 0.9% 1, 1560 1560 390 000 ml @ 130 mls/hr IV . Q7H42M [facility] Rx#:[id number] Intake, IV Titration 226.751 5.232 150 Amount Empty Bag 1 bag @ 3 UNIT/ 50 KG/MIN 472.281 mls/hr IV .Q11M ONE with Human Prothrombin Complx 2,052 unit Rx#:[id number] Norepinephrine 32 mg In 21.751 5.232 Sodium Chloride 0.9% 218 ml @ 0.03 MCG/KG/MIN 0. 734 mls/hr IV .Q24H [facility] Rx#:[id number] Sodium Ferric Gluconat- 100 100 Sucrose 125 mg In Sodium Chloride 0.9% 100 ml @ 100 mls/hr IVPB DAILY [facility] Rx#:[id number] cefTRIAXone 2 gm In 55 50 Sodium Chloride 0.9% 50 ml @ 100 mls/hr IVPB Q24HR [facility] Rx#:[id number] Oral 240 Blood Product 310 Rc As-1 Unit 310 [id number] Output: Urine 560 680 95 Other: Voiding Method Indwelling Catheter Indwelling Catheter # Bowel Movements 1 - Exam GENERAL EXAM: Alert, 83-year-old white female, comfortable in no apparent distress. HEAD: Normocephalic and atraumatic EYES: Normal reaction of pupils, equal size. NOSE: Clear with pink turbinates. THROAT: No erythema or exudates. NECK: No masses, no JVD. CHEST: No chest wall deformity. LUNGS: Equal air entry with bibasilar inspiratory crackles. On room air. No conversational dyspnea or accessory muscle use.. CVS: S1 and S2 normal with soft grade 1 systolic murmur, irregular rhythm. No extra heart sounds ABDOMEN: No hepatosplenomegaly, active bowel sounds, no guarding or rigidity. SPINE: No scoliosis or deformity. No CVA tenderness. SKIN: No rashes, generalized pallor CENTRAL NERVOUS SYSTEM: No focal deficits, tone is normal in all 4 extremities. EXTREMITIES: There is bilateral lower extremity edema, greater on the right. No clubbing, or cyanosis. Peripheral pulses are intact. - Labs CBC & Chem 7: 03/06/24 05:37 03/06/24 05:37 Labs: Abnormal Lab Results - Last 24 Hours (Table) 03/05/24 03/05/24 03/05/24 Range/Units 01:53 11:33 14:38 RBC 2.74 L (3.80-5.40) m/uL Hgb 7.6 L (11.4-16.0) gm/dL Hct 23.0 L (34.0-46.0) % RDW 18.1 H (11.5-15.5) % Lymphocytes # (1.0-4.8) k/uL Sodium (137-145) mmol/L Potassium 3.1 L (3.5-5.1) mmol/L Chloride (98-107) mmol/L Carbon Dioxide (22-30) mmol/L BUN (7-17) mg/dL Creatinine (0.52-1.04) mg/dL Glucose (74-99) mg/dL Calcium (8.4-10.2) mg/dL Total Protein (6.3-8.2) g/dL Albumin (3.5-5.0) g/dL Crossmatch See Detail 03/05/24 03/06/24 03/06/24 Range/Units 19:00 05:37 05:37 RBC 2.53 L 2.92 L (3.80-5.40) m/uL Hgb 6.8 L* 7.8 L (11.4-16.0) gm/dL Hct 21.4 L 24.3 L (34.0-46.0) % RDW 18.7 H 18.3 H (11.5-15.5) % Lymphocytes # 0.9 L (1.0-4.8) k/uL Sodium 135 L (137-145) mmol/L Potassium 3.4 L (3.5-5.1) mmol/L Chloride 112 H (98-107) mmol/L Carbon Dioxide 17 L (22-30) mmol/L BUN 43 H (7-17) mg/dL Creatinine 2.28 H (0.52-1.04) mg/dL Glucose 121 H (74-99) mg/dL Calcium 7.5 L (8.4-10.2) mg/dL Total Protein 5.1 L (6.3-8.2) g/dL Albumin 2.2 L (3.5-5.0) g/dL Crossmatch Microbiology - Last 24 Hours (Table) 03/04/24 19:20 Blood Culture - Preliminary Blood 03/04/24 19:05 Blood Culture - Preliminary Blood 03/04/24 18:31 Urine Culture - Preliminary Urine,Clean Catch Gram Neg Bacilli Assessment and Plan Assessment: Hypotension, improved and the patient is currently off pressors. The patient required a total of minutes effect of the transfusion due to ongoing hematuria and the patient was placed on norepinephrine and fluid resuscitation. Normal saline running at a rate of 130 cc an hour and the patient is currently off pressors as of 5 AM this morning. Fall and near syncopal event, secondary to above Severe dehydration and reduced oral intake in addition to hematuria Acute on chronic kidney disease, secondary to above, hypotension, and ATN, renal function is improving Gross hematuria, secondary to UTI and the patient is growing gram-negative bacillus in her urine culture in addition to being on anticoagulation with Eliquis. The patient was treated with Kcentra. She is also on IV Rocephin. Urology is on the case. UTI with gram-negative bacillus Paroxysmal atrial fibrillation, anticoagulated on Eliquis, currently in atrial fibrillation. Chronic microcytic, hypochromic anemia, hemoglobin stable and the patient got transfused with a total of 2 units of packed RBC Coronary artery disease, with recent PCI/stent to the LAD performed 10/28/2023 History of mild to moderate mitral regurgitation, preserved LV function History of diabetes mellitus, type II History of hypothyroidism Chronic kidney disease stage III History of hyperlipidemia Remote history of uterine CA Plan: Continue normal saline at rate of 130 cc an hour Pressors have been discontinued Monitor hematuria Monitor hemoglobin Patient was given a total of units of packed RBC during the current hospitalization Hematuria is improving Patient was given Kcentra and he is currently off Eliquis Continue IV Rocephin Urology is on the case keep the Streeter catheter in place CAT scan of the abdomen and pelvis was done and showed no acute abnormalities Will continue to follow\
--- NOTE | 2024-03-06 12:11 | P.PN ---
Subjective patient is seen for follow-up for acute kidney injury. Admitted with significant hematuria and maintained on antibiotics for UTI. Serum creatinine improved slightly to 2.2 mg/dL today. urine output at 70-30 mL an hour. Patient is concerned that she will have to pay for her hospitalization and is reluctant to see new physicians. Objective - Vital Signs Vital signs: Vital Signs Temp 98.3 F 03/06/24 08:00 Pulse 115 H 03/06/24 11:30 Resp 14 03/06/24 11:30 BP 108/78 03/06/24 11:30 Pulse Ox 94 L 03/06/24 11:30 FiO2 Intake & Output 03/05/24 03/06/24 03/06/24 18:59 06:59 18:59 Intake Total 9776.674 4348.232 1280 Output Total 560 680 225 Balance 0947.646 1816.232 1055 Weight 68.7 kg Intake: IV 1560 1560 650 Sodium Chloride 0.9% 1, 1560 1560 650 000 ml @ 130 mls/hr IV . Q7H42M [facility] Rx#:[id number] Intake, IV Titration 226.751 5.232 150 Amount Empty Bag 1 bag @ 3 UNIT/ 50 KG/MIN 472.281 mls/hr IV .Q11M [facility] with Human Prothrombin Complx 2,052 unit Rx#:[id number] Norepinephrine 32 mg In 21.751 5.232 Sodium Chloride 0.9% 218 ml @ 0.03 MCG/KG/MIN 0. 734 mls/hr IV .Q24H [facility] Rx#:[id number] Sodium Ferric Gluconat- 100 100 Sucrose 125 mg In Sodium Chloride 0.9% 100 ml @ 100 mls/hr IVPB DAILY [facility] Rx#:[id number] cefTRIAXone 2 gm In 55 50 Sodium Chloride 0.9% 50 ml @ 100 mls/hr IVPB Q24HR [facility] Rx#:[id number] Oral 480 Blood Product 310 Rc As-1 Unit 310 [id number] Output: Urine 560 680 225 Other: Voiding Method Indwelling Catheter Indwelling Catheter Indwelling Catheter # Bowel Movements 1 - Exam patient is awake, comfortable, in no acute distress. Examination of the heart S1 and S2 Examination the lungs decreased breath sounds at the bases Abdomen is soft nontender Examination of lower extremities shows no significant edema. [employer] exam grossly intact - Labs CBC & Chem 7: 03/06/24 05:37 03/06/24 05:37 Labs: Abnormal Lab Results - Last 24 Hours (Table) 03/05/24 03/05/24 03/05/24 Range/Units 01:53 14:38 19:00 RBC 2.53 L (3.80-5.40) m/uL Hgb 6.8 L* (11.4-16.0) gm/dL Hct 21.4 L (34.0-46.0) % RDW 18.7 H (11.5-15.5) % Lymphocytes # (1.0-4.8) k/uL Sodium (137-145) mmol/L Potassium 3.1 L (3.5-5.1) mmol/L Chloride (98-107) mmol/L Carbon Dioxide (22-30) mmol/L BUN (7-17) mg/dL Creatinine (0.52-1.04) mg/dL Glucose (74-99) mg/dL Calcium (8.4-10.2) mg/dL Total Protein (6.3-8.2) g/dL Albumin (3.5-5.0) g/dL Crossmatch See Detail 03/06/24 03/06/24 Range/Units 05:37 05:37 RBC 2.92 L (3.80-5.40) m/uL Hgb 7.8 L (11.4-16.0) gm/dL Hct 24.3 L (34.0-46.0) % RDW 18.3 H (11.5-15.5) % Lymphocytes # 0.9 L (1.0-4.8) k/uL Sodium 135 L (137-145) mmol/L Potassium 3.4 L (3.5-5.1) mmol/L Chloride 112 H (98-107) mmol/L Carbon Dioxide 17 L (22-30) mmol/L BUN 43 H (7-17) mg/dL Creatinine 2.28 H (0.52-1.04) mg/dL Glucose 121 H (74-99) mg/dL Calcium 7.5 L (8.4-10.2) mg/dL Total Protein 5.1 L (6.3-8.2) g/dL Albumin 2.2 L (3.5-5.0) g/dL Crossmatch Microbiology - Last 24 Hours (Table) 03/04/24 19:20 Blood Culture - Preliminary Blood 03/04/24 19:05 Blood Culture - Preliminary Blood 03/04/24 18:31 Urine Culture - Preliminary Urine,Clean Catch Gram Neg Bacilli Assessment and Plan Assessment: 1. Acute kidney injury, ATN, nonoliguric secondary to hypotension and severe anemia. Maintained on IV fluids. Maintained on antibiotics for UTI. No evidence of obstruction on CT scan. 2. Hematuria associated with anticoagulation. underlying UTI noted as well. No bladder mass seen on imaging studies. patient is being followed by urology. Continue frequent flushing off the catheter. plans for cystoscopy down the road. 3. A. fib with RVR 4. Hypotension secondary to underlying infection and severe anemia. history of hypotension as outpatient as well. Patient was maintained on midodrine. Check random cortisol level. 5. Chronic kidney disease NKF stage IIIB with baseline creatinine about 1.6-1.8 mg/dL. etiology is likely diabetic kidney disease. 6. History of CHF with preserved ejection fraction. EF 55-60% on echocardiogram in July 2023. 7. UTI, urine culture is growing gram-negative rods. Patient is maintained on Rocephin. No abnormalities noted on imaging studies. 8. Non-gap metabolic acidosis secondary to acute kidney injury Plan: continue IV fluidsExline switch to IV bicarb Add IV iron Continue frequent flushing off Streeter catheter due to significant hematuria. Repeat labs in a.m.
--- NOTE | 2024-03-06 12:33 | P.PN ---
Subjective Progress Note Date: 03/06/24 HISTORY OF PRESENTING ILLNESS 83-year-old with past medical history of paroxysmal atrial fibrillation, hypertension, dyslipidemia, CKD, chronic diastolic heart failure, last NSTEMI in October 2023 requiring heart cath showing 80% left main stenosis and mid LAD 60 to 70% stenosis with MEDICAL ASSISTANT DERMATOLOGY of LCx. She underwent PCI of left main into LAD. Patient has also had multiple hospital visits with A-fib RVR's past. There is also concern of noncompliance to medications. It is unclear if patient has been taking dual antiplatelet therapy since her PCI. This time patient presented to the hospital because of generalized weakness and fatigue and a fall. Apparently patient was found in the bathroom. Patient reported that she became severely lightheaded and could not get up from the sitting position in the bathroom commode. She was down for few hours before her son found her and called the EMS. On admission she was hypotensive and dehydrated along with atrial fibrillation with RVR. Her blood pressure was 80 over 60 mmHg. ECG showed atrial fibrillation with heart rate in the beats were minute, incomplete left bundle branch block with diffuse ST depressions Her labs showed NT proBNP of 18,000, troponin of 0.067, repeat 0.72. Creatinine 2.49, baseline creatinine 1.6 Chest x-ray did not show significant pulm congestion. Pelvic CT showed hypodensity seen in the urinary bladder may reflect blood byproducts. March 06, 2024 Patient continues to have hematuria. It appears slightly better as compared to yesterday. Appears to have 20 to 30 cc/h urine output with slightly improved creatinine to 2.2 today. Hemoglobin is 7.8, platelet 351. She is s/p 2 units of blood transfusion 03/05/2024. Her echocardiogram showed an EF of 65 to 70%, small LV cavity, no significant valvular disease. On exam she reports having diarrhea. Reports feeling weak. Appears slightly dehydrated getting IV fluids. PHYSICAL EXAMINATION Head: Normocephalic. Eyes: Sclerae nonicteric. Neck: Brisk carotid upstroke, no jugular venous distention. Lungs: Poor inspiratory effort. Heart: regular pulse, S1-S2, , 2/6 systolic murmur . Abdomen: Soft nontender, positive bowel sounds. Extremities: no edema, Neuro: no focal deficits. Detailed neuro exam was not performed. ASSESSMENT Elevated troponin, likely type II NSTEMI in setting of BOLA, sepsis and anemia Acute on chronic systolic heart failure, CAD s/p PCI in October 2023. S/p PCI to left main into LAD 4 x 15 mm PRANAY Atrial fibrillation with RVR, currently in sinus tachycardia. s/p Kcentra on admission Acute blood loss anemia due to hematuria s/p 2 U PRBC Severe sepsis BOLA on CKD Hyperlipidemia Hypothyroidism Medication non compliance Echo July 2023: EF 55%, severe LVH, moderate MR, Echo February 2024, EF 65%, hyperdynamic LV, moderate LVH, no significant wall motion abnormality. PLAN Continue aspirin 81 mg. Not able to do dual antiplatelet therapy due to active hematuria and acute blood loss anemia requiring transfusion. Once hemoglobin is stabilized, will start Plavix and Eliquis, and discontinue aspirin. Evaluate tomorrow Not able to do IV heparin due to acute blood loss anemia from hematuria Continue metoprolol succinate 25 mg daily. Will not increase metoprolol further as patient is currently in sinus tachycardia due to multifactorial region which appears to be physiological. Agree with IV fluids Agree with placing iron stores with IV iron IV antibiotics Monitor renal function electrolytes Transfuse blood if hemoglobin less than 7. Objective - Vital Signs Vital signs: Vital Signs Temp 98.3 F 03/06/24 08:00 Pulse 115 H 03/06/24 11:30 Resp 14 03/06/24 11:30 BP 108/78 03/06/24 11:30 Pulse Ox 94 L 03/06/24 11:30 FiO2 Intake & Output 03/05/24 03/06/24 03/06/24 18:59 06:59 18:59 Intake Total 6091.594 8734.232 1650 Output Total 560 680 345 Balance 3877.219 2298.232 1305 Weight 68.7 kg Intake: IV 1560 1560 780 Sodium Chloride 0.9% 1, 1560 1560 780 000 ml @ 130 mls/hr IV . Q7H42M [facility] Rx#:[id number] Intake, IV Titration 226.751 5.232 150 Amount Empty Bag 1 bag @ 3 UNIT/ 50 KG/MIN 472.281 mls/hr IV .Q11M [facility] with Human Prothrombin Complx 2,052 unit Rx#:[id number] Norepinephrine 32 mg In 21.751 5.232 Sodium Chloride 0.9% 218 ml @ 0.03 MCG/KG/MIN 0. 734 mls/hr IV .Q24H [facility] Rx#:[id number] Sodium Ferric Gluconat- 100 100 Sucrose 125 mg In Sodium Chloride 0.9% 100 ml @ 100 mls/hr IVPB DAILY [facility] Rx#:[id number] cefTRIAXone 2 gm In 55 50 Sodium Chloride 0.9% 50 ml @ 100 mls/hr IVPB Q24HR [facility] Rx#:[id number] Oral 720 Blood Product 310 Rc As-1 Unit 310 [id number] Output: Urine 560 680 345 Other: Voiding Method Indwelling Catheter Indwelling Catheter Indwelling Catheter # Bowel Movements 1 - Labs CBC & Chem 7: 03/06/24 05:37 03/06/24 05:37 Labs: Abnormal Lab Results - Last 24 Hours (Table) 03/05/24 03/05/24 03/05/24 Range/Units 01:53 14:38 19:00 RBC 2.53 L (3.80-5.40) m/uL Hgb 6.8 L* (11.4-16.0) gm/dL Hct 21.4 L (34.0-46.0) % RDW 18.7 H (11.5-15.5) % Lymphocytes # (1.0-4.8) k/uL Sodium (137-145) mmol/L Potassium 3.1 L (3.5-5.1) mmol/L Chloride (98-107) mmol/L Carbon Dioxide (22-30) mmol/L BUN (7-17) mg/dL Creatinine (0.52-1.04) mg/dL Glucose (74-99) mg/dL Calcium (8.4-10.2) mg/dL Total Protein (6.3-8.2) g/dL Albumin (3.5-5.0) g/dL Crossmatch See Detail 03/06/24 03/06/24 Range/Units 05:37 05:37 RBC 2.92 L (3.80-5.40) m/uL Hgb 7.8 L (11.4-16.0) gm/dL Hct 24.3 L (34.0-46.0) % RDW 18.3 H (11.5-15.5) % Lymphocytes # 0.9 L (1.0-4.8) k/uL Sodium 135 L (137-145) mmol/L Potassium 3.4 L (3.5-5.1) mmol/L Chloride 112 H (98-107) mmol/L Carbon Dioxide 17 L (22-30) mmol/L BUN 43 H (7-17) mg/dL Creatinine 2.28 H (0.52-1.04) mg/dL Glucose 121 H (74-99) mg/dL Calcium 7.5 L (8.4-10.2) mg/dL Total Protein 5.1 L (6.3-8.2) g/dL Albumin 2.2 L (3.5-5.0) g/dL Crossmatch Microbiology - Last 24 Hours (Table) 03/04/24 19:20 Blood Culture - Preliminary Blood 03/04/24 19:05 Blood Culture - Preliminary Blood 03/04/24 18:31 Urine Culture - Preliminary Urine,Clean Catch Gram Neg Bacilli
[2024-03-06] MEDS: DEXTROSE 5% IN WATER 1,000 ML with SODIUM BICARB (1 MEQ/ML) 150 ML IV SCH (14:14)
[2024-03-06 17:02] LABS: Glucose,Whole Blood 168 mg/dL (70-110)
[2024-03-06] MEDS: DILTIAZEM 125 MG in SODIUM CHLORIDE 0.9% 100 ML IV SCH (18:39)
[2024-03-06] MEDS: ACETAMINOPHEN TAB 500 MG TAB PO PRN (21:10)
--- NOTE | 2024-03-07 05:39 | P.PN ---
Subjective Progress Note Date: 03/06/24 HISTORY OF PRESENT ILLNESS: 83-year-old office patient with active medical history of Paroxysmal atrial fibrillation was on anticoagulation, history of hypertension, hyperlipidemia, stage III chronic kidney disease, chronic diastolic congestive heart failure, who also had recently history of non-ST CT with heart cath showed CAD including left main at 80% stenosis with mild LAD at 60 to 70% stenosis with circumflex 100% stenosis ended up having PCI of the left main and LAD, patient had multiple visits to the emergency department last few months with recurrent A-fib with RVR with similar claimed that she ran out of medication, she stopped taking medication a week ago, and many other. Sadly since her angioplasty and stent placement and the harm of not being on dual antiplatelet agent and her current medications extremely dangerous despite explaining this to the patient it looks like this event keep happening. She was hospitalized again in November for A-fib with RVR along with elevated troponin and anemia. She has been complaining of generalized weakness and fatigue post fall she apparently found in the bathroom developed severe lightheadedness and fell her son found her after work she was down for total hours she hit her head and right chest area has not had anything to eat or drink all day Call 911 patient brought to the emergency department at [facility] CT of the brain without contrast did not show any acute abnormality there is atrophy and microvascular finding. Found to be extremely hypertensive she was giving 1 L of IV saline and continue with 130 cc an hour she remained quite hypotensive she had anemia as well and found to be in A-fib with pulse rate running 110 beats per minutes her blood pressure still 80/60 she was started on vasopressor with norepinephrine was not having any chest pain or tightness at her proBNP was 18,800 with mildly elevated troponin. Her urine shows gross hematuria and has been having apparently problem with burning discomfort in bloody urine. She is on Eliquis for A-fib with RVR so she is on 2 Plavix since her angioplasty and stent early. 2 g of Rocephin was giving culture was done for blood and urine her hemoglobin initially was 8.8 and within few hours dropped down to 6 with hydration patient does not have any visual active GI bleed her BUN 54 creatinine 2.72 much worse than before lactic acid at 3.1. Patient was transferred to the ICU continue hydration, vasopressor, process for blood transfusion to be done. 03/06/2024: Continue to have gross hematuria causing more anemia despite a blood transfusion. Urology seen the patient and believe this is hemorrhagic cystitis aggravated by anticoagulation and they are recommending to irrigate the catheter when necessary still waiting for the urine culture to be finalized in the meanwhile she has remained on Rocephin 2 g daily. She is off vasopressor currently hemoglobin is up to 7.8. 2 unit of packed red cell transfusion. White blood cell is down 7.5 with normal platelet and creatinine improve down to 2.2 with bun of 43. Echocardiogram showed ejection fraction well-preserved with no significant valvular abnormality but mild left ventricular hypertrophy. Patient remain off anticoagulation and was giving 1 dose of Kcentra yesterday still holding on Eliquis and Plavix with cardiology restarted aspirin 81 mg a day. REVIEW OF SYSTEMS: CONSTITUTIONAL: Well-developed in no respiratory distress. EYES: No icterus sclerae, no conjunctivitis. EARS, NOSE, MOUTH, THROAT, and FACE: No sore throat, lymphadenopathy, carotid bruits or deformity. RESPIRATORY: Mild shortness of breath and dyspnea with no cough or wheezes. CARDIOVASCULAR: Positive palpitation and A-fib with no angina positive PND and orthopnea. GASTROINTESTINAL: No Abd pain, Nausea or vomiting, no Diarrhea or constipation, No GI Bleed, no distention or masses. GENITOURINARY: Negative for Hematuria or UTI, no kidney stones. INTEGUMENT/BREAST: Negative for any muscular injury with mild osteoarthritis.. HEMATOLOGIC/LYMPHATIC: Negative for bleed or purpura. MUSCULOSKELTAL: Negative for Myalgia or arthralgia. NEURLOGICAL: No LOC, Sz or syncope, blurred vision dizziness or abnormality.. BEHAVIORAL/PSYCH: Negative. ENDOCRINE: Negative. PHYSICAL EXAMINATION: General Appearance: Alert, cooperative, mild distress. Neck HEENT: Supple, no lymphadenopathy, no thyroid enlargement, no carotid bruits. Lungs: Decreased expansion bilaterally with fine rhonchi positive mild rhonchi b ut no wheezes. Chest Wall: Decreased expansion with deep inspiration no tenderness and no deformity was found on exam, no costochondral pain or discomfort. Heart: Irregular rate and rhythm, S1, S2 positive severe tachycardia positive ejection murmur. Back: Symmetric, no curvature, ROM normal, no CVA tenderness. Abdomen: Soft, non-tender, bowel sounds active all four quadrants, no masses, no organomegaly. Extremities: Trace edema without cyanotic. Pulses: 2+ and symmetric. Skin: Skin color, texture, tugor normal, no rashes or lesions. Neurologic: Alert oriented with slight confusion. Cranial nerves II through XII intact, no motor deficit, no abnormal balance or gait. ASSESSMENT AND PLAN: _Sepsis: Slightly bit better at this point continue IV Rocephin till the final culture is back patient white blood cell is down and lactic acid is off. _Hypotension: Secondary mostly to severe anemia with acute blood loss required vasopressor till today she is off vasopressor completely with a blood pressure running around 100 systolic. _Acute kidney injury on chronic kidney disease: Acute kidney injury with ATN mostly from volume loss and severe anemia with hydration Blood transfusion kidney function had improved some continue to avoid nephrotoxic agent repeat lab again. _Acute blood loss anemia: Post 2 unit of blood transfusion, Hemoccult was neg ative but continued to have severe hematuria was evaluated by urology and believe it is mostly hemorrhagic cystitis from the severity of the infection, no cystoscopy needed yet at this point we will continue to irrigate the catheter until its clear. _Hematuria: Mostly from hemorrhagic cystitis continue conservative management, continue antibiotic and irrigate the catheter if needed. _Acute systolic congestive heart failure with known coronary artery disease proBNP was 19,900, echocardiogram showed well-preserved ejection fraction, continue to reduce volume loss and supportive care for now. _Possible non-ST CT with elevated troponin's, slightly abnormal EKG known history of myocardial infarction, patient be seen cardiology CK troponin x 3 will be done. _A-fib with RVR: Pulse rate is running 100-120 beats per minutes irregular, continue current management and try to correct volume if pulse rate still high Then can use metoprolol back again, patient was on metoprolol 200 mg nightly. _Atherosclerotic heart disease: Post PCI and stent placement from October has been seeing cardiology she needs more assurance probably family need to be more involved making sure she is taking her medication on time and that she does not run out of medication. Consult cardiology holding off on antiplatelet agent for now because of the bleed. Apparently was started on 1 baby aspirin for now. _Type 2 diabetes: Has been doing well resume insulin with sliding scale coverage and was on Jardiance, continue medication. Accu-Cheks still running in the low 100s. _Hyperlipidemia: Continue atorvastatin 20 mg a day. _Hypothyroidism: Continue levothyroxine 25 mcg daily. _GI prophylaxis: Will be on pantoprazole 40 mg daily. CODE STATUS: Full code. Discussion: Patient is continuing IV antibiotics, continue to irrigate the catheter, no need for any transfusion at this point with her current hemoglobin, hopefully will be transfer out of the ICU in the next 24 hours, might need cystoscopy if continue having symptoms specially when she is with more stable. Objective - Vital Signs Vital signs: Vital Signs Temp 98.4 F 03/06/24 00:01 Pulse 124 H 03/06/24 01:30 Resp 14 03/06/24 01:30 BP 117/75 03/06/24 02:00 Pulse Ox 96 03/06/24 01:30 FiO2 Intake & Output 03/05/24 03/05/24 03/06/24 06:59 18:59 06:59 Intake Total 8923.517 3045.751 1350 Output Total 600 560 475 Balance 154.245 5622.751 875 Weight 67.3 kg Intake: IV 910 1560 1040 Sodium Chloride 0.9% 1, 910 1560 1040 000 ml @ 130 mls/hr IV . Q7H42M [facility] Rx#:[id number] Intake, IV Titration 1.505 226.751 Amount Empty Bag 1 bag @ 3 UNIT/ 50 KG/MIN 472.281 mls/hr IV .Q11M ONE with Human Prothrombin Complx 2,052 unit Rx#:[id number] Norepinephrine 32 mg In 1.505 21.751 Sodium Chloride 0.9% 218 ml @ 0.03 MCG/KG/MIN 0. 734 mls/hr IV .Q24H [facility] Rx#:[id number] Sodium Ferric Gluconat- 100 Sucrose 125 mg In Sodium Chloride 0.9% 100 ml @ 100 mls/hr IVPB DAILY [facility] Rx#:[id number] cefTRIAXone 2 gm In 55 Sodium Chloride 0.9% 50 ml @ 100 mls/hr IVPB Q24HR [facility] Rx#:[id number] Blood Product 582 310 Rc As-1 Unit 310 [id number] Rc Pheresis 2 As3 Unit 291 [id number] Output: Urine 600 560 475 Other: Voiding Method Indwelling Catheter Indwelling Catheter Indwelling Catheter # Bowel Movements 1 - Labs CBC & Chem 7: 03/06/24 05:37 03/06/24 05:37 Labs: Abnormal Lab Results - Last 24 Hours (Table) 03/05/24 03/05/24 03/05/24 Range/Units 01:08 01:53 06:08 RBC 2.90 L (3.80-5.40) m/uL Hgb 7.6 L (11.4-16.0) gm/dL Hct 24.0 L (34.0-46.0) % RDW 18.4 H (11.5-15.5) % Plt Count 491 H (150-450) k/uL Neutrophils # 8.6 H (1.3-7.7) k/uL Sodium (137-145) mmol/L Potassium (3.5-5.1) mmol/L Carbon Dioxide (22-30) mmol/L BUN (7-17) mg/dL Creatinine (0.52-1.04) mg/dL Glucose (74-99) mg/dL Calcium (8.4-10.2) mg/dL Iron 13 L (50-170) UG/DL % Saturation 5.44 L (12.00-45.00) Transferrin 171.0 L (204.0-354.0) mg/dL Troponin I (0.000-0.034) ng/mL Crossmatch See Detail 03/05/24 03/05/24 03/05/24 Range/Units 06:08 06:08 11:33 RBC 2.74 L (3.80-5.40) m/uL Hgb 7.6 L (11.4-16.0) gm/dL Hct 23.0 L (34.0-46.0) % RDW 18.1 H (11.5-15.5) % Plt Count (150-450) k/uL Neutrophils # (1.3-7.7) k/uL Sodium 134 L (137-145) mmol/L Potassium 3.1 L (3.5-5.1) mmol/L Carbon Dioxide 21 L (22-30) mmol/L BUN 52 H (7-17) mg/dL Creatinine 2.49 H (0.52-1.04) mg/dL Glucose 149 H (74-99) mg/dL Calcium 7.7 L (8.4-10.2) mg/dL Iron (50-170) UG/DL % Saturation (12.00-45.00) Transferrin (204.0-354.0) mg/dL Troponin I 0.720 H* (0.000-0.034) ng/mL Crossmatch 03/05/24 03/05/24 Range/Units 14:38 19:00 RBC 2.53 L (3.80-5.40) m/uL Hgb 6.8 L* (11.4-16.0) gm/dL Hct 21.4 L (34.0-46.0) % RDW 18.7 H (11.5-15.5) % Plt Count (150-450) k/uL Neutrophils # (1.3-7.7) k/uL Sodium (137-145) mmol/L Potassium 3.1 L (3.5-5.1) mmol/L Carbon Dioxide (22-30) mmol/L BUN (7-17) mg/dL Creatinine (0.52-1.04) mg/dL Glucose (74-99) mg/dL Calcium (8.4-10.2) mg/dL Iron (50-170) UG/DL % Saturation (12.00-45.00) Transferrin (204.0-354.0) mg/dL Troponin I (0.000-0.034) ng/mL Crossmatch Microbiology - Last 24 Hours (Table) 03/04/24 19:20 Blood Culture - Preliminary Blood 03/04/24 19:05 Blood Culture - Preliminary Blood 03/04/24 18:31 Urine Culture - Preliminary Urine,Clean Catch Gram Neg Bacilli
[2024-03-07 06:30] LABS: Anisocytosis Slight; Basophils % (A) 0 %; Eosinophils % (A) 0 %; HCT 23.4 % (34.0-46.0); HGB 7.4 gm/dL (11.4-16.0); Hypochromasia Slight; Lymphocytes # (A) 0.8 k/uL (1.0-4.8); Lymphocytes % (A) 8 %; MCH 26.1 pg (25.0-35.0); MCHC 31.8 g/dL (31.0-37.0); MCV 82.3 fL (80.0-100.0); Mean Platelet Volume 7.3; Microcytosis Slight; Monocytes # (A) 0.6 k/uL (0-1.0); Monocytes % (A) 5 %; Neutrophils # (A) 9.1 k/uL (1.3-7.7); Neutrophils % (A) 86 %; Platelet Count 345 k/uL (150-450); Poikilocytosis Slight; RBC 2.84 m/uL (3.80-5.40); RDW 18.8 % (11.5-15.5); WBC 10.6 k/uL (3.8-10.6)
[2024-03-07 06:43] LABS: ALT 12 U/L (4-34); AST 25 U/L (14-36); African American GFR (CKD) 27 (>60 ml/min/1.73 sqM); Albumin 2.3 g/dL (3.5-5.0); Alkaline Phosphatase 73 U/L (38-126); Anion Gap 6 mmol/L; Blood Urea Nitrogen 33 mg/dL (7-17); Calcium 7.8 mg/dL (8.4-10.2); Carbon Dioxide 18 mmol/L (22-30); Chloride 113 mmol/L (98-107); Glucose 129 mg/dL (74-99); Non-African American GFR(CKD) 23 (>60 ml/min/1.73 sqM); Potassium 3.8 mmol/L (3.5-5.1); Sodium 137 mmol/L (137-145); Total Bilirubin 0.5 mg/dL (0.2-1.3); Total Protein 5.3 g/dL (6.3-8.2)
--- NOTE | 2024-03-07 08:00 | XR ---
EXAMINATION TYPE: XR chest 1V portable DATE OF EXAM: 03/07/2024 HISTORY: Shortness of breath. COMPARISON: 03/04/2024 TECHNIQUE: Single view of the chest is submitted. FINDINGS: Demonstrated are scattered senescent parenchymal change. Pulmonary venous congestion without overt fa ilure. The heart is stable. Hilar and mediastinal structures are within normal limits. Degenerative changes are seen of the dorsal spine. IMPRESSION: 1. Pulmonary venous congestion without overt failure.
[2024-03-07] MEDS: LORATADINE 10 MG TAB PO SCH (08:44)
[2024-03-07] MEDS: FUROSEMIDE 10 MG/ML 2 ML VIAL IV ONE (08:45)
[2024-03-07] MEDS: guaiFENesin-Coden 100-10MG/5ML 10 ML CUP PO PRN (09:02)
--- NOTE | 2024-03-07 09:30 | P.PN ---
Subjective Progress Note Date: 03/07/24 the patient is in the hospital with shortness of breath cardiac issues. She had gross hematuria due to presumed hemorrhagic cystitis. We will clot finally seems to have broken down and drained out of the bladder. The urine is much clear this morning. Objective - Vital Signs Vital signs: Vital Signs Temp 98.6 F 03/07/24 04:00 Pulse 122 H 03/07/24 07:00 Resp 30 H 03/07/24 07:00 BP 115/53 03/07/24 07:00 Pulse Ox 92 L 03/07/24 07:00 FiO2 Intake & Output 03/06/24 03/07/24 03/07/24 18:59 06:59 18:59 Intake Total 2520 473.667 Output Total 1075 1189 100 Balance 1445 -715.333 -100 Weight 68.7 kg Intake: IV 910 Sodium Chloride 0.9% 1, 910 000 ml @ 130 mls/hr IV . Q7H42M [facility] Rx#:[id number] Intake, IV Titration 650 113.667 Amount Dextrose 5% in Water 1, 500 000 ml @ 100 mls/hr IV . [id number] [facility] with Sodium Bicarb (1 Meq/ml) 150 ml Rx#:[id number] Diltiazem 125 mg In 113.667 Sodium Chloride 0.9% 100 ml @ 10 MG/HR 10 mls/hr IV .[id number] [facility] Rx#: [id number] Sodium Ferric Gluconat- 100 Sucrose 125 mg In Sodium Chloride 0.9% 100 ml @ 100 mls/hr IVPB DAILY [facility] Rx#:[id number] cefTRIAXone 2 gm In 50 Sodium Chloride 0.9% 50 ml @ 100 mls/hr IVPB Q24HR [facility] Rx#:[id number] Oral 960 360 Output: Urine 1075 1189 100 Coude 250 Other: Voiding Method Indwelling Catheter Indwelling Catheter # Bowel Movements 1 - Labs CBC & Chem 7: 03/07/24 06:08 03/07/24 06:08 Labs: Abnormal Lab Results - Last 24 Hours (Table) 03/06/24 03/07/24 03/07/24 Range/Units 17:00 06:08 06:08 RBC 2.84 L (3.80-5.40) m/uL Hgb 7.4 L (11.4-16.0) gm/dL Hct 23.4 L (34.0-46.0) % RDW 18.8 H (11.5-15.5) % Neutrophils # 9.1 H (1.3-7.7) k/uL Lymphocytes # 0.8 L (1.0-4.8) k/uL Chloride 113 H (98-107) mmol/L Carbon Dioxide 18 L (22-30) mmol/L BUN 33 H (7-17) mg/dL Creatinine 1.98 H (0.52-1.04) mg/dL Glucose 129 H (74-99) mg/dL POC Glucose (mg/dL) 168 H (70-110) mg/dL Calcium 7.8 L (8.4-10.2) mg/dL Total Protein 5.3 L (6.3-8.2) g/dL Albumin 2.3 L (3.5-5.0) g/dL Microbiology - Last 24 Hours (Table) 03/04/24 19:20 Blood Culture - Preliminary Blood 03/04/24 19:05 Blood Culture - Preliminary Blood 03/04/24 18:31 Urine Culture - Final Urine,Clean Catch Klebsiella pneumoniae Assessment and Plan Assessment: impression: Gross hematuria secondary to hemorrhagic cystitis. Culture pending with gram-negative júnior growing. Recommendations: The patient will need cystoscopy as an outpatient.
--- NOTE | 2024-03-07 12:18 | P.PN ---
Subjective patient is seen for follow-up for acute kidney injury. Admitted with significant hematuria and maintained on antibiotics for UTI. Serum creatinine improved to 1.9 mg/dL today. urine output at 70-100 mL an hour. IV fluids discontinued this morning as chest x-ray showed pulmonary vascular congestion. Patient received IV Lasix this morning. Objective - Vital Signs Vital signs: Vital Signs Temp 98.8 F 03/07/24 08:00 Pulse 98 03/07/24 11:00 Resp 15 03/07/24 11:00 BP 97/53 03/07/24 11:00 Pulse Ox 92 L 03/07/24 11:00 FiO2 Intake & Output 03/06/24 03/07/24 03/07/24 18:59 06:59 18:59 Intake Total 2520 473.667 200 Output Total 1075 1189 450 Balance 1445 -715.333 -250 Weight 68.7 kg Intake: IV 910 Sodium Chloride 0.9% 1, 910 000 ml @ 130 mls/hr IV . Q7H42M [facility] Rx#:[id number] Intake, IV Titration 650 113.667 Amount Dextrose 5% in Water 1, 500 000 ml @ 100 mls/hr IV . [id number] [facility] with Sodium Bicarb (1 Meq/ml) 150 ml Rx#:[id number] Diltiazem 125 mg In 113.667 Sodium Chloride 0.9% 100 ml @ 10 MG/HR 10 mls/hr IV .[id number] [facility] Rx#: [id number] Sodium Ferric Gluconat- 100 Sucrose 125 mg In Sodium Chloride 0.9% 100 ml @ 100 mls/hr IVPB DAILY [facility] Rx#:[id number] cefTRIAXone 2 gm In 50 Sodium Chloride 0.9% 50 ml @ 100 mls/hr IVPB Q24HR [facility] Rx#:[id number] Oral 960 360 200 Output: Urine 1075 1189 450 Coude 250 Other: Voiding Method Indwelling Catheter Indwelling Catheter Indwelling Catheter # Bowel Movements 1 - Exam patient is sleeping, comfortable, in no acute distress. Examination of the heart S1 and S2 Examination the lungs decreased breath sounds at the bases Abdomen is soft nontender Examination of lower extremities shows no significant edema. ST[employer]ER exam grossly intact - Labs CBC & Chem 7: 03/07/24 06:08 03/07/24 06:08 Labs: Abnormal Lab Results - Last 24 Hours (Table) 03/06/24 03/07/24 03/07/24 Range/Units 17:00 06:08 06:08 RBC 2.84 L (3.80-5.40) m/uL Hgb 7.4 L (11.4-16.0) gm/dL Hct 23.4 L (34.0-46.0) % RDW 18.8 H (11.5-15.5) % Neutrophils # 9.1 H (1.3-7.7) k/uL Lymphocytes # 0.8 L (1.0-4.8) k/uL Chloride 113 H (98-107) mmol/L Carbon Dioxide 18 L (22-30) mmol/L BUN 33 H (7-17) mg/dL Creatinine 1.98 H (0.52-1.04) mg/dL Glucose 129 H (74-99) mg/dL POC Glucose (mg/dL) 168 H (70-110) mg/dL Calcium 7.8 L (8.4-10.2) mg/dL Total Protein 5.3 L (6.3-8.2) g/dL Albumin 2.3 L (3.5-5.0) g/dL Microbiology - Last 24 Hours (Table) 03/04/24 19:20 Blood Culture - Preliminary Blood 03/04/24 19:05 Blood Culture - Preliminary Blood 03/04/24 18:31 Urine Culture - Final Urine,Clean Catch Klebsiella pneumoniae Assessment and Plan Assessment: 1. Acute kidney injury, ATN, nonoliguric secondary to hypotension and severe anemia. status post IV fluids. Maintained on antibiotics for UTI. No evidence of obstruction on CT scan. 2. Hematuria associated with anticoagulation. underlying UTI noted as well. No bladder mass seen on imaging studies. patient is being followed by urology. Continue frequent flushing off the catheter. plans for cystoscopy down the road. 3. A. fib with RVR 4. Hypotension secondary to underlying infection and severe anemia. history of hypotension as outpatient as well. Patient was maintained on midodrine. Check random cortisol level. 5. Chronic kidney disease NKF stage IIIB with baseline creatinine about 1.6-1.8 mg/dL. etiology is likely diabetic kidney disease. 6. History of CHF with preserved ejection fraction. EF 55-60% on echocardiogram in July 2023. 7. UTI, urine culture is growing gram-negative rods. Patient is maintained on Rocephin. No abnormalities noted on imaging studies. 8. Non-gap metabolic acidosis secondary to acute kidney injury Plan: continue off of IV fluids. Continue frequent flushing off Streeter catheter due to significant hematuria. Repeat labs in a.m.
--- NOTE | 2024-03-07 13:42 | P.PN ---
Subjective Progress Note Date: 03/07/24 HISTORY OF PRESENTING ILLNESS 83-year-old with past medical history of paroxysmal atrial fibrillation, hypertension, dyslipidemia, CKD, chronic diastolic heart failure, last NSTEMI in October 2023 requiring heart cath showing 80% left main stenosis and mid LAD 60 to 70% stenosis with DENTIST of LCx. She underwent PCI of left main into LAD. Patient has also had multiple hospital visits with A-fib RVR's past. There is also concern of noncompliance to medications. It is unclear if patient has been taking dual antiplatelet therapy since her PCI. This time patient presented to the hospital because of generalized weakness and fatigue and a fall. Apparently patient was found in the bathroom. Patient reported that she became severely lightheaded and could not get up from the sitting position in the bathroom commode. She was down for few hours before her son found her and called the EMS. On admission she was hypotensive and dehydrated along with atrial fibrillation with RVR. Her blood pressure was 80 over 60 mmHg. ECG showed atrial fibrillation with heart rate in the beats were minute, incomplete left bundle branch block with diffuse ST depressions Her labs showed NT proBNP of 18,000, troponin of 0.067, repeat 0.72. Creatinine 2.49, baseline creatinine 1.6 Chest x-ray did not show significant pulm congestion. Pelvic CT showed hypodensity seen in the urinary bladder may reflect blood byproducts. March 06, 2024 Patient continues to have hematuria. It appears slightly better as compared to yesterday. Appears to have 20 to 30 cc/h urine output with slightly improved creatinine to 2.2 today. Hemoglobin is 7.8, platelet 351. She is s/p 2 units of blood transfusion 03/05/2024. Her echocardiogram showed an EF of 65 to 70%, small LV cavity, no significant valvular disease. On exam she reports having diarrhea. Reports feeling weak. Appears slightly d ehydrated getting IV fluids. 03/07/2024 BP 92/62, heart rate 112 bpm, atrial fibrillation with RVR Hemoglobin 7.4. Yesterday it was 7.8. On admission 6.8. She is s/p unit blood transfusion since admission. Renal function has continued to improve, creatinine is 1.9 today. On admission 2.9. She has good urine output. Her hematuria has resolved. PHYSICAL EXAMINATION Head: Normocephalic. Eyes: Sclerae nonicteric. Neck: Brisk carotid upstroke, no jugular venous distention. Lungs: Poor inspiratory effort. Heart: irregular pulse, S1-S2, , 2/6 systolic murmur . Abdomen: Soft nontender, positive bowel sounds. Extremities: 1+ edema in leg , non pitting Neuro: no focal deficits. Detailed neuro exam was not performed. ASSESSMENT Elevated troponin, likely type II NSTEMI in setting of BOLA, sepsis and anemia Acute on chronic systolic heart failure, CAD s/p PCI in October 2023. S/p PCI to left main into LAD 4 x 15 mm PRANAY Atrial fibrillation with RVR, currently in sinus tachycardia. s/p Kcentra on admission Acute blood loss anemia due to hematuria s/p 2 U PRBC Severe sepsis BOLA on CKD Hyperlipidemia Hypothyroidism Medication non compliance Echo July 2023: EF 55%, severe LVH, moderate MR, Echo February 2024, EF 65%, hyperdynamic LV, moderate LVH, no significant wall motion abnormality. PLAN As her hematuria is resolved and her hemoglobin has been stable, I would start her back on anticoagulation for atrial fibrillation. Patient also had a recent PCI done for which I will place her on Plavix. I will discontinue aspirin. Continue metoprolol succinate 50 mg daily. Reduce Cardizem drip to 5 mg/h. Continue to titrate metoprolol up as needed for heart rate as blood pressure to lerates. Agree with IV fluids Agree with placing iron stores with IV iron IV antibiotics Monitor renal function electrolytes Transfuse blood if hemoglobin less than 7. Objective - Vital Signs Vital signs: Vital Signs Temp 98.9 F 03/07/24 12:00 Pulse 98 03/07/24 13:00 Resp 21 03/07/24 13:00 BP 92/62 03/07/24 13:00 Pulse Ox 90 L 03/07/24 13:00 FiO2 Intake & Output 03/06/24 03/07/24 03/07/24 18:59 06:59 18:59 Intake Total 2520 473.667 200 Output Total 1075 1189 1150 Balance 1445 -715.333 -950 Weight 68.7 kg Intake: IV 910 Sodium Chloride 0.9% 1, 910 000 ml @ 130 mls/hr IV . Q7H42M [facility] Rx#:[id number] Intake, IV Titration 650 113.667 Amount Dextrose 5% in Water 1, 500 000 ml @ 100 mls/hr IV . [id number] [facility] with Sodium Bicarb (1 Meq/ml) 150 ml Rx#:[id number] Diltiazem 125 mg In 113.667 Sodium Chloride 0.9% 100 ml @ 10 MG/HR 10 mls/hr IV .[id number] [facility] Rx#: [id number] Sodium Ferric Gluconat- 100 Sucrose 125 mg In Sodium Chloride 0.9% 100 ml @ 100 mls/hr IVPB DAILY [facility] Rx#:[id number] cefTRIAXone 2 gm In 50 Sodium Chloride 0.9% 50 ml @ 100 mls/hr IVPB Q24HR [facility] Rx#:[id number] Oral 960 360 200 Output: Urine 1075 1189 1150 Coude 250 Other: Voiding Method Indwelling Catheter Indwelling Catheter Indwelling Catheter # Bowel Movements 1 - Labs CBC & Chem 7: 03/07/24 06:08 03/07/24 06:08 Labs: Abnormal Lab Results - Last 24 Hours (Table) 03/06/24 03/07/24 03/07/24 Range/Units 17:00 06:08 06:08 RBC 2.84 L (3.80-5.40) m/uL Hgb 7.4 L (11.4-16.0) gm/dL Hct 23.4 L (34.0-46.0) % RDW 18.8 H (11.5-15.5) % Neutrophils # 9.1 H (1.3-7.7) k/uL Lymphocytes # 0.8 L (1.0-4.8) k/uL Chloride 113 H (98-107) mmol/L Carbon Dioxide 18 L (22-30) mmol/L BUN 33 H (7-17) mg/dL Creatinine 1.98 H (0.52-1.04) mg/dL Glucose 129 H (74-99) mg/dL POC Glucose (mg/dL) 168 H (70-110) mg/dL Calcium 7.8 L (8.4-10.2) mg/dL Total Protein 5.3 L (6.3-8.2) g/dL Albumin 2.3 L (3.5-5.0) g/dL Microbiology - Last 24 Hours (Table) 03/04/24 19:20 Blood Culture - Preliminary Blood 03/04/24 19:05 Blood Culture - Preliminary Blood 03/04/24 18:31 Urine Culture - Final Urine,Clean Catch Klebsiella pneumoniae
--- NOTE | 2024-03-07 14:08 | P.PN ---
Subjective Progress Note Date: 03/07/24 Patient is a 83-year-old white female with past medical history significant for coronary artery disease with recent stent, valvular heart disease, atrial fibrillation anticoagulated on Eliquis, hypertension, diabetes mellitus, uterine cancer. Of note, patient had a recent hospitalization September, for non-ST elevation [place] and received a stent to the LAD. Patient presented to emergency room yesterday afternoon with a chief complaint of generalized weakness and fatigue and she had a fall. She was apparently in the bathroom where she went to get up and became lightheaded and fell. She states that her son was at work at this time, he found her when he came home. She was on the ground for a co uple hours. States that she did hit her head and right chest. Did not have anything to eat or drink all day. Her son was the one that called 911. She states that over the last several days she has been generally weak. CT of the brain without contrast did not show any acute intracranial abnormality. There is atrophy and chronic microvessel ischemic white matter changes. While being evaluated by the ER room physician, she was noted to be hypotensive. She has been fluid resuscitated with 1 L of normal saline bolus, and currently has normal saline infusing at 130 MLS per hour. She does take midodrine outpatient. After the 1 L normal saline bolus, patient remained hypotensive, and my sup ervising physician recommended ICU monitoring. Patient is currently in the emergency department, room 7. She appears fairly comfortable. She is on room air. SpO2 100%. Blood pressure currently 85/61 mmHg. Heart rhythm appears to be atrial fibrillation with a rate of 118 bpm. Norepinephrine has not been started yet. She denies any radiating chest pain, there is some localized reproducible right-sided chest pain where she impacted on fall. Denies any heart palpitations or syncopal events. She has a pure wick suction catheter, there is presumed gross hematuria in the canister. She is not able to tell me how long this has been occurring for. She denies kidney stones. She is on Eliquis outpatient. Patient does admit to some continuous pelvic discomfort/pressure. No flank pain. No burning with urination, no increased urinary frequency. She is chronically incontinent to urine. She has noted blood clots in her underwear. She has remote history of uterine cancer. She does not think this is vaginal bleeding. She received a dose of Rocephin in the emergency room for possible UTI. Urinalysis showing hina blood and WBCs. Culture is pending. She is afebrile. CBC without leukocytosis. Hemoglobin 8.8 g/dL, hematocrit 28.7. Platelets 471. CMP on arrival: Sodium 130, potassium 3.3, chloride 98, serum bicarb 23, BUN 54, creatinine 2.72, glucose 275. Lactic acid originally 3.1 and down to 1.7. LFTs not elevated. EKG done on arrival showed atrial fibrillation with a rate of [address] depressions in the lateral leads. Troponin less than 0.012. NT proBNP 19,900. Chest x-ray shows stable cardiac silhouette, no pulmonary vascular congestion or edema, no acute infiltrates, no pleural effusions or pneumothoraces. She is going to be monitored in the intensive care unit, and transferred once bed available. On 03/06/2024, the patient continues to have hematuria although this has somewhat improved compared to yesterday. Urine output is still bloody and the intensity of the blood is less compared to yesterday. Noted the patient drop in hemoglobin yesterday down to 6.8 and she was given additional unit of packed RBC making a total of 2 units of packed RBC and hemoglobin is currently up to 7.8. She remains on normal saline at the rate of 130 cc an hour. The norepinephrine infusion was discontinued around 5:00 this morning. She is in atrial fibrilla tion. She is slightly tachycardic. Urine culture is showing gram-negative bacillus and the patient is currently on IV Rocephin. The WBC count is at 7.5, hemoglobin 7.8 and a platelet count of 351. Creatinine is improving is currently down to 2.2 again of 43, serum bicarb is at 17 with a sodium level of 135 and a potassium level of 3.4 and this needs to be replaced. The cortisol level is at 19.2. This was a random cortisol level. Echocardiogram was also done on 03/05/2024 revealing a ejection fraction of 65 to 70%, small LV cavity, mildly increased septal wall thickening, mild increase in the posterior wall thickening, no significant valvular abnormalities noted. Mild LVH. Noted the p atient was given Kcentra yesterday. The patient is currently off anticoagulation. 03/07/2024, the patient is being seen for a follow-up. Patient is doing well. The patient is not having any active hematuria at this point in time. The hematuria has subsided. She is currently on 4 L of oxygen by nasal cannula. She has been off norepinephrine since 5 AM this morning. IV fluids are currently at KVO. The patient however developed atrial fibrillation with rapid ventricular response 6 PM yesterday. Her lungs are also congested. Based on that, she was given a dose of Lasix in the morning. She is currently on a Cardizem drip running at 10 mg an hour. She remains calm and comfortable. No significant chest pain. The white count of 10.6 with a hemoglobin 7.4 and a platelet count of 345. BUN 33 with a creatinine of 1.98 and the sodium is at 137. Urine culture is positive for Klebsiella pneumonia. Objective - Vital Signs Vital signs: Vital Signs Temp 98.6 F 03/07/24 04:00 Pulse 122 H 03/07/24 07:00 Resp 30 H 03/07/24 07:00 BP 115/53 03/07/24 07:00 Pulse Ox 92 L 03/07/24 07:00 FiO2 Intake & Output 03/06/24 03/07/24 03/07/24 18:59 06:59 18:59 Intake Total 2520 473.667 Output Total 1075 1189 100 Balance 1445 -715.333 -100 Weight 68.7 kg Intake: IV 910 Sodium Chloride 0.9% 1, 910 000 ml @ 130 mls/hr IV . Q7H42M [facility] Rx#:[id number] Intake, IV Titration 650 113.667 Amount Dextrose 5% in Water 1, 500 000 ml @ 100 mls/hr IV . [id number] [facility] with Sodium Bicarb (1 Meq/ml) 150 ml Rx#:[id number] Diltiazem 125 mg In 113.667 Sodium Chloride 0.9% 100 ml @ 10 MG/HR 10 mls/hr IV .[id number] [facility] Rx#: [id number] Sodium Ferric Gluconat- 100 Sucrose 125 mg In Sodium Chloride 0.9% 100 ml @ 100 mls/hr IVPB DAILY [facility] Rx#:[id number] cefTRIAXone 2 gm In 50 Sodium Chloride 0.9% 50 ml @ 100 mls/hr IVPB Q24HR [facility] Rx#:[id number] Oral 960 360 Output: Urine 1075 1189 100 Coude 250 Other: Voiding Method Indwelling Catheter Indwelling Catheter # Bowel Movements 1 - Exam GENERAL EXAM: Alert, 83-year-old white female, comfortable in no apparent distress. The patient is on 4 L of oxygen by nasal cannula HEAD: Normocephalic and atraumatic EYES: Normal reaction of pupils, equal size. NOSE: Clear with pink turbinates. THROAT: No erythema or exudates. NECK: No masses, no JVD. CHEST: No chest wall deformity. LUNGS: Equal air entry with bibasilar inspiratory crackles. No conversational dyspnea or accessory muscle use.. CVS: S1 and S2 normal with soft grade 1 systolic murmur, irregular rhythm. No extra heart sounds ABDOMEN: No hepatosplenomegaly, active bowel sounds, no guarding or rigidity. SPINE: No scoliosis or deformity. No CVA tenderness. SKIN: No rashes, generalized pallor CENTRAL NERVOUS SYSTEM: No focal deficits, tone is normal in all 4 extremities. EXTREMITIES: There is bilateral lower extremity edema, greater on the right. No clubbing, or cyanosis. Peripheral pulses are intact. - Labs CBC & Chem 7: 03/07/24 06:08 03/07/24 06:08 Labs: Abnormal Lab Results - Last 24 Hours (Table) 03/06/24 03/07/24 03/07/24 Range/Units 17:00 06:08 06:08 RBC 2.84 L (3.80-5.40) m/uL Hgb 7.4 L (11.4-16.0) gm/dL Hct 23.4 L (34.0-46.0) % RDW 18.8 H (11.5-15.5) % Neutrophils # 9.1 H (1.3-7.7) k/uL Lymphocytes # 0.8 L (1.0-4.8) k/uL Chloride 113 H (98-107) mmol/L Carbon Dioxide 18 L (22-30) mmol/L BUN 33 H (7-17) mg/dL Creatinine 1.98 H (0.52-1.04) mg/dL Glucose 129 H (74-99) mg/dL POC Glucose (mg/dL) 168 H (70-110) mg/dL Calcium 7.8 L (8.4-10.2) mg/dL Total Protein 5.3 L (6.3-8.2) g/dL Albumin 2.3 L (3.5-5.0) g/dL Microbiology - Last 24 Hours (Table) 03/04/24 19:20 Blood Culture - Preliminary Blood 03/04/24 19:05 Blood Culture - Preliminary Blood 03/04/24 18:31 Urine Culture - Final Urine,Clean Catch Klebsiella pneumoniae Assessment and Plan Assessment: Hypotension, improved and the patient is currently off pressors. IV fluids are currently at KVO Fall and near syncopal event, secondary to above Severe dehydration and reduced oral intake in addition to hematuria, improved Acute on chronic kidney disease, secondary to above, hypotension, and ATN, renal function is improving Gross hematuria, secondary to UTI and the patient is growing gram-negative bacillus in her urine culture in addition to being on anticoagulation with Eliquis. The patient was treated with Kcentra. She is also on IV Rocephin. Urine cultures positive for Klebsiella pneumonia and the patient was kept on IV Rocephin. Hematuria has subsided. UTI with Klebsiella pneumonia Paroxysmal atrial fibrillation, anticoagulated on Eliquis, currently in atrial fibrillation with rapid ventricular response patient is currently on a Cardizem drip with 10 mg an hour. Chronic microcytic, hypochromic anemia, hemoglobin stable and the patient got transfused with a total of 2 units of packed RBC Coronary artery disease, with recent PCI/stent to the LAD performed 10/28/2023 History of mild to moderate mitral regurgitation, preserved LV function History of diabetes mellitus, type II History of hypothyroidism Chronic kidney disease stage III History of hyperlipidemia Remote history of uterine CA Plan: IV fluids to KVO as the patient's chest x-ray showing some mild pulm vessel congestion Lasix IV was given Titrate oxygen flow to maintain saturation above 90%, currently on 4 L Pressors have been discontinued Monitor hematuria and this has subsided Monitor hemoglobin Patient was given a total of 2 units of packed RBC during the current hospitalization Patient was given Kcentra and he is currently off Eliquis Continue IV Rocephin Continue Cardizem for rate control and cardiology is on the case, increase the metoprolol dose to 50 mg p.o. twice a day and gradually weaned off the Cardizem Urology is on the case keep the Streeter catheter in place CAT scan of the abdomen and pelvis was done and showed no acute abnormalities Will continue to follow\
[2024-03-07] MEDS: APIXABAN 2.5 MG TABLET PO SCH (20:15)
[2024-03-07] MEDS: METOPROLOL TARTRATE 50 MG TAB PO SCH (20:15)
--- NOTE | 2024-03-07 22:25 | P.PN ---
Subjective Progress Note Date: 03/07/24 HISTORY OF PRESENT ILLNESS: 83-year-old office patient with active medical history of Paroxysmal atrial fibrillation was on anticoagulation, history of hypertension, hyperlipidemia, stage III chronic kidney disease, chronic diastolic congestive heart failure, who also had recently history of non-ST [place] with heart cath showed CAD including left main at 80% stenosis with mild LAD at 60 to 70% stenosis with circumflex 100% stenosis ended up having PCI of the left main and LAD, patient had multiple visits to the emergency department last few months with recurrent A-fib with RVR with similar claimed that she ran out of medication, she stopped taking medication a week ago, and many other. Sadly since her angioplasty and stent placement and the harm of not being on dual antiplatelet agent and her current medications extremely dangerous despite explaining this to the patient it looks like this event keep happening. She was hospitalized again in November for A-fib with RVR along with elevated troponin and anemia. She has been complaining of generalized weakness and fatigue post fall she apparently found in the bathroom developed severe lightheadedness and fell her son found her after work she was down for total hours she hit her head and right chest area has not had anything to eat or drink all day Call 911 patient brought to the emergency department at [facility] CT of the brain without contrast did not show any acute abnormality there is atrophy and microvascular finding. Found to be extremely hypertensive she was giving 1 L of IV saline and continue with 130 cc an hour she remained quite hypotensive she had anemia as well and found to be in A-fib with pulse rate running 110 beats per minutes her blood pressure still 80/60 she was started on vasopressor with norepinephrine was not having any chest pain or tightness at her proBNP was 18,800 with mildly elevated troponin. Her urine shows gross hematuria and has been having apparently problem with burning discomfort in bloody urine. She is on Eliquis for A-fib with RVR so she is on 2 Plavix since her angioplasty and stent early. 2 g of Rocephin was giving culture was done for blood and urine her hemoglobin initially was 8.8 and within few hours dropped down to 6 with hydration patient does not have any visual active GI bleed her BUN 54 creatinine 2.72 much worse than before lactic acid at 3.1. Patient was transferred to the ICU continue hydration, vasopressor, process for blood transfusion to be done. 03/06/2024: Continue to have gross hematuria causing more anemia despite a blood transfusion. Urology seen the patient and believe this is hemorrhagic cystitis aggravated by anticoagulation and they are recommending to irrigate the catheter when necessary still waiting for the urine culture to be finalized in the meanwhile she has remained on Rocephin 2 g daily. She is off vasopressor currently hemoglobin is up to 7.8. 2 unit of packed red cell transfusion. White blood cell is down 7.5 with normal platelet and creatinine improve down to 2.2 with bun of 43. Echocardiogram showed ejection fraction well-preserved with no significant valvular abnormality but mild left ventricular hypertrophy. Patient remain off anticoagulation and was giving 1 dose of Kcentra yesterday still holding on Eliquis and Plavix with cardiology restarted aspirin 81 mg a day. 03/07/2024: Continue to be on 4 L of oxygen to keep her pulse ox above 90 percentile, she had A-fib with RVR with significant worsening congestion of the lung consistent with more heart failure at this point. Started on Cardizem drip 10 mg an hour with her pulse remained above 100, hemoglobin still at 7.4 with normal platelet count creatinine 1.98 still been treated for urine positive for Klebsiella pneumonia with IV antibiotics at this point. Continue to have significant amount of hematuria mostly hemorrhagic cystitis and urology believe he can wait on doing cystoscopy to when she is stable as an outpatient. The kidney function slightly better still seen nephrology discussed that to be acute tubular necrosis nonoliguric secondary to hypotension anemia and sepsis to continue IV continue to treat UTI with no evidence of obstruction. REVIEW OF SYSTEMS: CONSTITUTIONAL: Well-developed in no respiratory distress. EYES: No icterus sclerae, no conjunctivitis. EARS, NOSE, MOUTH, THROAT, and FACE: No sore throat, lymphadenopathy, carotid br uits or deformity. RESPIRATORY: Mild shortness of breath and dyspnea with no cough or wheezes. CARDIOVASCULAR: Positive palpitation and A-fib with no angina positive PND and orthopnea. GASTROINTESTINAL: No Abd pain, Nausea or vomiting, no Diarrhea or constipation, No GI Bleed, no distention or masses. GENITOURINARY: Negative for Hematuria or UTI, no kidney stones. INTEGUMENT/BREAST: Negative for any muscular injury with mild osteoarthritis.. HEMATOLOGIC/LYMPHATIC: Negative for bleed or purpura. MUSCULOSKELTAL: Negative for Myalgia or arthralgia. NEURLOGICAL: No LOC, Sz or syncope, blurred vision dizziness or abnormality.. BEHAVIORAL/PSYCH: Negative. ENDOCRINE: Negative. PHYSICAL EXAMINATION: General Appearance: Alert, cooperative, mild distress. Neck HEENT: Supple, no lymphadenopathy, no thyroid enlargement, no carotid bruits. Lungs: Decreased expansion bilaterally with fine rhonchi positive mild rhonchi but no wheezes. Chest Wall: Decreased expansion with deep inspiration no tenderness and no deformity was found on exam, no costochondral pain or discomfort. Heart: Irregular rate and rhythm, S1, S2 positive severe tachycardia positive ejection murmur. Back: Symmetric, no curvature, ROM normal, no CVA tenderness. Abdomen: Soft, non-tender, bowel sounds active all four quadrants, no masses, no organomegaly. Extremities: Trace edema without cyanotic. Pulses: 2+ and symmetric. Skin: Skin color, texture, tugor normal, no rashes or lesions. Neurologic: Alert oriented with slight confusion. Cranial nerves II through XII intact, no motor deficit, no abnormal balance or gait. ASSESSMENT AND PLAN: _Sepsis: Slightly bit better at this point continue IV Rocephin till the final culture is back patient white blood cell is down and lactic acid is off. _Hypotension: Was on vasopressor for 48 hours has been off since. _A-fib with RVR has been much worsening since 6:00 in the evening last night has been on Cardizem drip continue see cardiology regularly. _Acute kidney injury on chronic kidney disease: Acute kidney injury with ATN mostly from volume loss and severe anemia with hydration Blood transfusion kidney function had improved some continue to avoid nephrotoxic agent repeat lab again. _Acute blood loss anemia: Post 2 unit of blood transfusion, Hemoccult was negative but continued to have severe hematuria was evaluated by urology and believe it is mostly hemorrhagic cystitis from the severity of the infection, no cystoscopy needed yet at this point we will continue to irrigate the catheter until its clear. _Acute aggressive hematuria: Mostly from hemorrhagic cystitis continue conservative management, continue antibiotic and irrigate the catheter if needed. _Acute systolic congestive heart failure with known coronary artery disease proBNP was 19,900, echocardiogram showed well-preserved ejection fraction, she is continue to have signs and symptoms of heart failure IV diuretics will be started today. Continue to reduce volume loss and supportive care for now. _Possible non-ST [place] with elevated troponin's, slightly abnormal EKG known history of myocardial infarction, patient be seen cardiology CK troponin x 3 will be done. _Atherosclerotic heart disease: Post PCI and stent placement from October has been seeing cardiology she needs more assurance probably family need to be more involved making sure she is taking her medication on time and that she does not run out of medication. Consult cardiology holding off on antiplatelet agent for now because of the bleed. Apparently was started on 1 baby aspirin for now. _Type 2 diabetes: Has been doing well resume insulin with sliding scale coverage and was on Jardiance, continue medication. Accu-Cheks still running in the low 100s. _Hyperlipidemia: Continue atorvastatin 20 mg a day. _Hypothyroidism: Continue levothyroxine 25 mcg daily. _GI prophylaxis: Will be on pantoprazole 40 mg daily. CODE STATUS: Full code. Discussion: Continue to have tachycardia with A-fib with RVR pulse rate running around 100 beats per minutes, she is off BiPAP at this point continue to have significant hematuria with hemorrhagic cystitis. UTI came back as a Klebsiella pneumonia being treated with IV antibiotics. Objective - Vital Signs Vital signs: Vital Signs Temp 98.6 F 03/07/24 04:00 Pulse 101 H 03/07/24 04:00 Resp 24 03/07/24 04:00 BP 120/48 03/07/24 04:00 Pulse Ox 96 03/07/24 04:00 FiO2 Intake & Output 03/06/24 03/06/24 03/07/24 06:59 18:59 06:59 Intake Total 4317.495 9323 360 Output Total 680 1075 989 Balance 2913.886 0393 -629 Weight 68.7 kg 68.7 kg Intake: IV 1560 910 Sodium Chloride 0.9% 1, 1560 910 000 ml @ 130 mls/hr IV . Q7H42M [facility] Rx#:[id number] Intake, IV Titration 5.232 650 Amount Dextrose 5% in Water 1, 500 000 ml @ 100 mls/hr IV . [id number] [facility] with Sodium Bicarb (1 Meq/ml) 150 ml Rx#:[id number] Norepinephrine 32 mg In 5.232 Sodium Chloride 0.9% 218 ml @ 0.03 MCG/KG/MIN 0. 734 mls/hr IV .Q24H [facility] Rx#:[id number] Sodium Ferric Gluconat- 100 Sucrose 125 mg In Sodium Chloride 0.9% 100 ml @ 100 mls/hr IVPB DAILY [facility] Rx#:[id number] cefTRIAXone 2 gm In 50 Sodium Chloride 0.9% 50 ml @ 100 mls/hr IVPB Q24HR [facility] Rx#:[id number] Oral 960 360 Blood Product 310 Rc As-1 Unit 310 [id number] Output: Urine 680 1075 989 Coude 250 Other: Voiding Method Indwelling Catheter Indwelling Catheter Indwelling Catheter # Bowel Movements 1 - Labs CBC & Chem 7: 03/07/24 06:08 03/07/24 06:08 Labs: Abnormal Lab Results - Last 24 Hours (Table) 03/06/24 03/06/24 03/06/24 Range/Units 05:37 05:37 17:00 RBC 2.92 L (3.80-5.40) m/uL Hgb 7.8 L (11.4-16.0) gm/dL Hct 24.3 L (34.0-46.0) % RDW 18.3 H (11.5-15.5) % Lymphocytes # 0.9 L (1.0-4.8) k/uL Sodium 135 L (137-145) mmol/L Potassium 3.4 L (3.5-5.1) mmol/L Chloride 112 H (98-107) mmol/L Carbon Dioxide 17 L (22-30) mmol/L BUN 43 H (7-17) mg/dL Creatinine 2.28 H (0.52-1.04) mg/dL Glucose 121 H (74-99) mg/dL POC Glucose (mg/dL) 168 H (70-110) mg/dL Calcium 7.5 L (8.4-10.2) mg/dL Total Protein 5.1 L (6.3-8.2) g/dL Albumin 2.2 L (3.5-5.0) g/dL Microbiology - Last 24 Hours (Table) 03/04/24 19:20 Blood Culture - Preliminary Blood 03/04/24 19:05 Blood Culture - Preliminary Blood 03/04/24 18:31 Urine Culture - Final Urine,Clean Catch Klebsiella pneumoniae
[2024-03-08 04:35] LABS: Anisocytosis Slight; HCT 24.1 % (34.0-46.0); HGB 7.5 gm/dL (11.4-16.0); Hypochromasia Moderate; MCH 26.5 pg (25.0-35.0); MCHC 31.2 g/dL (31.0-37.0); MCV 84.9 fL (80.0-100.0); Mean Platelet Volume 7.8; Platelet Count 294 k/uL (150-450); Poikilocytosis Slight; RBC 2.84 m/uL (3.80-5.40); RDW 18.8 % (11.5-15.5); WBC 8.2 k/uL (3.8-10.6)
[2024-03-08 05:01] LABS: African American GFR (CKD) 26 (>60 ml/min/1.73 sqM); Anion Gap 2 mmol/L; Blood Urea Nitrogen 30 mg/dL (7-17); Calcium 7.6 mg/dL (8.4-10.2); Carbon Dioxide 22 mmol/L (22-30); Chloride 110 mmol/L (98-107); Glucose 93 mg/dL (74-99); Non-African American GFR(CKD) 23 (>60 ml/min/1.73 sqM); Sodium 134 mmol/L (137-145)
--- NOTE | 2024-03-08 08:34 | P.PN ---
Subjective Progress Note Date: 03/06/24 Principal diagnosis: Reason for follow-up is complicated UTI Patient is a 83-year-old male for diabetes mellitus hypertension atrial fibrillation brought to the hospital for evaluation of generalized weakness fatigue lightheadedness low blood pressure patient noticed to have significant hematuria and concern for complicated UTI. On today's evaluation that is 03/06/2024, the patient continues to be afebrile, the patient is on 2 L nasal oxygen and breathing comfortably, the Pt denies having any chest pain or cough, the patient denies having any abdominal pain no vomiting or any diarrhea has been reported by the nursing staff. Patient white count is 7.5, creatinine is 2.28 urine culture currently pending Objective - Vital Signs Vital signs: Vital Signs Temp 98.3 F 03/06/24 08:00 Pulse 124 H 03/06/24 09:00 Resp 24 03/06/24 09:00 BP 111/55 03/06/24 09:00 Pulse Ox 97 03/06/24 09:00 FiO2 Intake & Output 03/05/24 03/06/24 03/06/24 18:59 06:59 18:59 Intake Total 4339.110 8742.232 780 Output Total 560 680 95 Balance 3925.267 6562.232 685 Weight 68.7 kg Intake: IV 1560 1560 390 Sodium Chloride 0.9% 1, 1560 1560 390 000 ml @ 130 mls/hr IV . Q7H42M [facility] Rx#:[id number] Intake, IV Titration 226.751 5.232 150 Amount Empty Bag 1 bag @ 3 UNIT/ 50 KG/MIN 472.281 mls/hr IV .Q11M ONE with Human Prothrombin Complx 2,052 unit Rx#:[id number] Norepinephrine 32 mg In 21.751 5.232 Sodium Chloride 0.9% 218 ml @ 0.03 MCG/KG/MIN 0. 734 mls/hr IV .Q24H [facility] Rx#:[id number] Sodium Ferric Gluconat- 100 100 Sucrose 125 mg In Sodium Chloride 0.9% 100 ml @ 100 mls/hr IVPB DAILY [facility] Rx#:[id number] cefTRIAXone 2 gm In 55 50 Sodium Chloride 0.9% 50 ml @ 100 mls/hr IVPB Q24HR [facility] Rx#:[id number] Oral 240 Blood Product 310 Rc As-1 Unit 310 [id number] Output: Urine 560 680 95 Other: Voiding Method Indwelling Catheter Indwelling Catheter # Bowel Movements 1 - Exam GENERAL DESCRIPTION: An elderly female lying in bed in no distress RESPIRATORY SYSTEM: Unlabored breathing , decreased breath sounds at bases HEART: S1 S2 regular rate and rhythm , ABDOMEN: Soft , no tenderness Exam completed with help of PROCESS MOLD TECHNICIAN - Labs CBC & Chem 7: 03/08/24 04:07 03/08/24 04:07 Labs: Abnormal Lab Results - Last 24 Hours (Table) 03/05/24 03/05/24 03/05/24 Range/Units 01:53 11:33 14:38 RBC 2.74 L (3.80-5.40) m/uL Hgb 7.6 L (11.4-16.0) gm/dL Hct 23.0 L (34.0-46.0) % RDW 18.1 H (11.5-15.5) % Lymphocytes # (1.0-4.8) k/uL Sodium (137-145) mmol/L Potassium 3.1 L (3.5-5.1) mmol/L Chloride (98-107) mmol/L Carbon Dioxide (22-30) mmol/L BUN (7-17) mg/dL Creatinine (0.52-1.04) mg/dL Glucose (74-99) mg/dL Calcium (8.4-10.2) mg/dL Total Protein (6.3-8.2) g/dL Albumin (3.5-5.0) g/dL Crossmatch See Detail 03/05/24 03/06/24 03/06/24 Range/Units 19:00 05:37 05:37 RBC 2.53 L 2.92 L (3.80-5.40) m/uL Hgb 6.8 L* 7.8 L (11.4-16.0) gm/dL Hct 21.4 L 24.3 L (34.0-46.0) % RDW 18.7 H 18.3 H (11.5-15.5) % Lymphocytes # 0.9 L (1.0-4.8) k/uL Sodium 135 L (137-145) mmol/L Potassium 3.4 L (3.5-5.1) mmol/L Chloride 112 H (98-107) mmol/L Carbon Dioxide 17 L (22-30) mmol/L BUN 43 H (7-17) mg/dL Creatinine 2.28 H (0.52-1.04) mg/dL Glucose 121 H (74-99) mg/dL Calcium 7.5 L (8.4-10.2) mg/dL Total Protein 5.1 L (6.3-8.2) g/dL Albumin 2.2 L (3.5-5.0) g/dL Crossmatch Microbiology - Last 24 Hours (Table) 03/04/24 19:20 Blood Culture - Preliminary Blood 03/04/24 19:05 Blood Culture - Preliminary Blood 03/04/24 18:31 Urine Culture - Preliminary Urine,Clean Catch Gram Neg Bacilli Assessment and Plan (1) UTI (urinary tract infection) Current Visit: Yes Status: Acute Code(s): N39.0 - URINARY TRACT INFECTION, SITE NOT SPECIFIED SNOMED Code(s): 57480812 Plan: 1patient presented to hospital with weakness not feeling well patient was hypotensive noticed to have hematuria with abnormal renal ultrasound concerning for mass versus clot in the urinary bladder did have a positive UA concerning for symptomatic urinary tract infection. 2patient with renal insufficiency and high risk of nephrotoxicity. 3patient to continue with Rocephin 2 g daily while waiting for the culture to finalize. Dictation was produced using [employer] dictation software. please excuse any grammatical, word or spelling errors.
--- NOTE | 2024-03-08 08:35 | P.PN ---
Subjective Progress Note Date: 03/07/24 Principal diagnosis: Reason for follow-up is complicated UTI Patient is a 83-year-old male for diabetes mellitus hypertension atrial fibrillation brought to the hospital for evaluation of generalized weakness fatigue lightheadedness low blood pressure patient noticed to have significant hematuria and concern for complicated UTI. On today's evaluation that is 03/07/2024, Patient did have a low-grade fever 100.8 F last night however the patient is afebrile this morning patient is currently on 2 L nasal cannula oxygen and complaining of some shortness of breath, the patient denies any chest pain or any worsening cough, the patient denies any nausea vomiting did not have any abdominal pain and no diarrhea. Patient white count is 10.6 creatinine is 1.98 urine has been finalized with Klebsiella that is sensitive to ceftriaxone Objective - Vital Signs Vital signs: Vital Signs Temp 98.9 F 03/07/24 12:00 Pulse 98 03/07/24 13:00 Resp 21 03/07/24 13:00 BP 92/62 03/07/24 13:00 Pulse Ox 90 L 03/07/24 13:00 FiO2 Intake & Output 03/06/24 03/07/24 03/07/24 18:59 06:59 18:59 Intake Total 2520 473.667 200 Output Total 1075 1189 1150 Balance 1445 -715.333 -950 Weight 68.7 kg Intake: IV 910 Sodium Chloride 0.9% 1, 910 000 ml @ 130 mls/hr IV . Q7H42M [facility] Rx#:[id number] Intake, IV Titration 650 113.667 Amount Dextrose 5% in Water 1, 500 000 ml @ 100 mls/hr IV . [id number] [facility] with Sodium Bicarb (1 Meq/ml) 150 ml Rx#:[id number] Diltiazem 125 mg In 113.667 Sodium Chloride 0.9% 100 ml @ 10 MG/HR 10 mls/hr IV .[id number] [facility] Rx#: [id number] Sodium Ferric Gluconat- 100 Sucrose 125 mg In Sodium Chloride 0.9% 100 ml @ 100 mls/hr IVPB DAILY [facility] Rx#:[id number] cefTRIAXone 2 gm In 50 Sodium Chloride 0.9% 50 ml @ 100 mls/hr IVPB Q24HR [facility] Rx#:[id number] Oral 960 360 200 Output: Urine 1075 1189 1150 Coude 250 Other: Voiding Method Indwelling Catheter Indwelling Catheter Indwelling Catheter # Bowel Movements 1 - Exam GENERAL DESCRIPTION: An elderly female lying in bed in no distress RESPIRATORY SYSTEM: Unlabored breathing , decreased breath sounds at bases HEART: S1 S2 regular rate and rhythm , ABDOMEN: Soft , no tenderness Exam completed with help of FIELD ATTENDANT - Labs CBC & Chem 7: 03/08/24 04:07 03/08/24 04:07 Labs: Abnormal Lab Results - Last 24 Hours (Table) 03/06/24 03/07/24 03/07/24 Range/Units 17:00 06:08 06:08 RBC 2.84 L (3.80-5.40) m/uL Hgb 7.4 L (11.4-16.0) gm/dL Hct 23.4 L (34.0-46.0) % RDW 18.8 H (11.5-15.5) % Neutrophils # 9.1 H (1.3-7.7) k/uL Lymphocytes # 0.8 L (1.0-4.8) k/uL Chloride 113 H (98-107) mmol/L Carbon Dioxide 18 L (22-30) mmol/L BUN 33 H (7-17) mg/dL Creatinine 1.98 H (0.52-1.04) mg/dL Glucose 129 H (74-99) mg/dL POC Glucose (mg/dL) 168 H (70-110) mg/dL Calcium 7.8 L (8.4-10.2) mg/dL Total Protein 5.3 L (6.3-8.2) g/dL Albumin 2.3 L (3.5-5.0) g/dL Microbiology - Last 24 Hours (Table) 03/04/24 19:20 Blood Culture - Preliminary Blood 03/04/24 19:05 Blood Culture - Preliminary Blood 03/04/24 18:31 Urine Culture - Final Urine,Clean Catch Klebsiella pneumoniae Assessment and Plan (1) UTI (urinary tract infection) Current Visit: Yes Status: Acute Code(s): N39.0 - URINARY TRACT INFECTION, SITE NOT SPECIFIED SNOMED Code(s): 02745684 Plan: This is a telehealth visit 1patient presented to hospital with weakness not feeling well patient was hypotensive noticed to have hematuria with abnormal renal ultrasound concerning for mass versus clot in the urinary bladder did have a positive UA concerning for symptomatic urinary tract infection. 2patient with renal insufficiency and high risk of nephrotoxicity. 3patient urine has been finalized with Klebsiella that is sensitive to ceftriaxone, patient to continue with Rocephin 2 g daily and monitor clinical course closely Dictation was produced using [employer] dictation software. please excuse any grammatical, word or spelling errors. Time with Patient: Less than 30
[2024-03-08] MEDS: CLOPIDOGREL 75 MG TAB PO SCH (08:50)
--- NOTE | 2024-03-08 10:13 | XR ---
EXAMINATION TYPE: XR chest 1V portable DATE OF EXAM: 03/08/2024 COMPARISON: 03/07/2024 HISTORY: Shortness of breath TECHNIQUE: Single frontal view of the chest is obtained. FINDINGS: Diffuse osteopenia with chronic deformity of the left humerus. Arthropathy of the shoulder s and degenerative change of the spine. Limited inspiration with chronic rib cage deformities. There is left basilar consolidation. Improving interstitial pattern. Tiny left pleural effusion stable. No pneumothorax. IMPRESSION: 1. Improving interstitial pattern correlate for improving venous congestion or interstitial pneumonit is. 2. Stable left lower lobe infiltrate with tiny effusion.
--- NOTE | 2024-03-08 12:03 | P.PN ---
Subjective Progress Note Date: 03/08/24 Patient is a 83-year-old white female with past medical history significant for coronary artery disease with recent stent, valvular heart disease, atrial fibrillation anticoagulated on Eliquis, hypertension, diabetes mellitus, uterine cancer. Of note, patient had a recent hospitalization September, for non-ST elevation CO and received a stent to the LAD. Patient presented to emergency room yesterday afternoon with a chief complaint of generalized weakness and fatigue and she had a fall. She was apparently in the bathroom where she went to get up and became lightheaded and fell. She states that her son was at work at this time, he found her when he came home. She was on the ground for a co uple hours. States that she did hit her head and right chest. Did not have anything to eat or drink all day. Her son was the one that called 911. She states that over the last several days she has been generally weak. CT of the brain without contrast did not show any acute intracranial abnormality. There is atrophy and chronic microvessel ischemic white matter changes. While being evaluated by the ER room physician, she was noted to be hypotensive. She has been fluid resuscitated with 1 L of normal saline bolus, and currently has normal saline infusing at 130 MLS per hour. She does take midodrine outpatient. After the 1 L normal saline bolus, patient remained hypotensive, and my sup ervising physician recommended ICU monitoring. Patient is currently in the emergency department, room 7. She appears fairly comfortable. She is on room air. SpO2 100%. Blood pressure currently 85/61 mmHg. Heart rhythm appears to be atrial fibrillation with a rate of 118 bpm. Norepinephrine has not been started yet. She denies any radiating chest pain, there is some localized reproducible right-sided chest pain where she impacted on fall. Denies any heart palpitations or syncopal events. She has a pure wick suction catheter, there is presumed gross hematuria in the canister. She is not able to tell me how long this has been occurring for. She denies kidney stones. She is on Eliquis outpatient. Patient does admit to some continuous pelvic discomfort/pressure. No flank pain. No burning with urination, no increased urinary frequency. She is chronically incontinent to urine. She has noted blood clots in her underwear. She has remote history of uterine cancer. She does not think this is vaginal bleeding. She received a dose of Rocephin in the emergency room for possible UTI. Urinalysis showing hina blood and WBCs. Culture is pending. She is afebrile. CBC without leukocytosis. Hemoglobin 8.8 g/dL, hematocrit 28.7. Platelets 471. CMP on arrival: Sodium 130, potassium 3.3, chloride 98, serum bicarb 23, BUN 54, creatinine 2.72, glucose 275. Lactic acid originally 3.1 and down to 1.7. LFTs not elevated. EKG done on arrival showed atrial fibrillation with a rate of [address] depressions in the lateral leads. Troponin less than 0.012. NT proBNP 19,900. Chest x-ray shows stable cardiac silhouette, no pulmonary vascular congestion or edema, no acute infiltrates, no pleural effusions or pneumothoraces. She is going to be monitored in the intensive care unit, and transferred once bed available. On 03/06/2024, the patient continues to have hematuria although this has somewhat improved compared to yesterday. Urine output is still bloody and the intensity of the blood is less compared to yesterday. Noted the patient drop in hemoglobin yesterday down to 6.8 and she was given additional unit of packed RBC making a total of 2 units of packed RBC and hemoglobin is currently up to 7.8. She remains on normal saline at the rate of 130 cc an hour. The norepinephrine infusion was discontinued around 5:00 this morning. She is in atrial fibrilla tion. She is slightly tachycardic. Urine culture is showing gram-negative bacillus and the patient is currently on IV Rocephin. The WBC count is at 7.5, hemoglobin 7.8 and a platelet count of 351. Creatinine is improving is currently down to 2.2 again of 43, serum bicarb is at 17 with a sodium level of 135 and a potassium level of 3.4 and this needs to be replaced. The cortisol level is at 19.2. This was a random cortisol level. Echocardiogram was also done on 03/05/2024 revealing a ejection fraction of 65 to 70%, small LV cavity, mildly increased septal wall thickening, mild increase in the posterior wall thickening, no significant valvular abnormalities noted. Mild LVH. Noted the p atient was given Kcentra yesterday. The patient is currently off anticoagulation. 03/07/2024, the patient is being seen for a follow-up. Patient is doing well. The patient is not having any active hematuria at this point in time. The hematuria has subsided. She is currently on 4 L of oxygen by nasal cannula. She has been off norepinephrine since 5 AM this morning. IV fluids are currently at KVO. The patient however developed atrial fibrillation with rapid ventricular response 6 PM yesterday. Her lungs are also congested. Based on that, she was given a dose of Lasix in the morning. She is currently on a Cardizem drip running at 10 mg an hour. She remains calm and comfortable. No significant chest pain. The white count of 10.6 with a hemoglobin 7.4 and a platelet count of 345. BUN 33 with a creatinine of 1.98 and the sodium is at 137. Urine culture is positive for Klebsiella pneumonia. 03/08/2024, the patient is not having any hematuria. She was diagnosed having a Klebsiella pneumoniae urine tract infection with secondary hematuria and hematuria has subsided. The patient remains on IV Rocephin. Hemodynamically stable on no pressors. Still on Cardizem drip which is running at 5 mg hour. She is also on Lopressor current dose of 50 mg p.o. twice a day. Anticoagul ation was restarted by the medical group and the patient is currently on Eliquis 2.5 mg p.o. twice a day. She remains on oxygen and she is currently on 2 L nasal cannula. Some limited cough and congestion. Chest x-ray was done and showed improving interstitial pattern which was attribute to pulmonary vascular congestion/venous congestion and a stable tiny left lower lobe effusion. Otherwise, no other new complaints. Tolerating diet. No chest pain. Objective - Vital Signs Vital signs: Vital Signs Temp 98.2 F 03/08/24 04:00 Pulse 101 H 03/08/24 07:00 Resp 20 03/08/24 07:00 BP 100/71 03/08/24 07:00 Pulse Ox 96 03/08/24 07:00 FiO2 Intake & Output 03/07/24 03/08/24 03/08/24 18:59 06:59 18:59 Intake Total 1225 1500 Output Total 1450 800 50 Balance -225 700 -50 Weight 67 kg Intake: Intake, IV Titration 125 Amount Diltiazem 125 mg In 125 Sodium Chloride 0.9% 100 ml @ 10 MG/HR 10 mls/hr IV .[id number] [facility] Rx#: [id number] Oral 1100 1500 Output: Urine 1450 800 50 Other: Voiding Method Indwelling Catheter Indwelling Catheter # Bowel Movements 1 1 - Exam GENERAL EXAM: Alert, 83-year-old white female, comfortable in no apparent distress. The patient is on 2 L of oxygen by nasal cannula HEAD: Normocephalic and atraumatic EYES: Normal reaction of pupils, equal size. NOSE: Clear with pink turbinates. THROAT: No erythema or exudates. NECK: No masses, no JVD. CHEST: No chest wall deformity. LUNGS: Equal air entry with bibasilar inspiratory crackles. No conversational dyspnea or accessory muscle use.. CVS: S1 and S2 normal with soft grade 1 systolic murmur, irregular rhythm. No extra heart sounds ABDOMEN: No hepatosplenomegaly, active bowel sounds, no guarding or rigidity. SPINE: No scoliosis or deformity. No CVA tenderness. SKIN: No rashes, generalized pallor CENTRAL NERVOUS SYSTEM: No focal deficits, tone is normal in all 4 extremities. EXTREMITIES: There is bilateral lower extremity edema, greater on the right. No clubbing, or cyanosis. Peripheral pulses are intact. - Labs CBC & Chem 7: 03/08/24 04:07 03/08/24 04:07 Labs: Abnormal Lab Results - Last 24 Hours (Table) 03/08/24 03/08/24 Range/Units 04:07 04:07 RBC 2.84 L (3.80-5.40) m/uL Hgb 7.5 L (11.4-16.0) gm/dL Hct 24.1 L (34.0-46.0) % RDW 18.8 H (11.5-15.5) % Sodium 134 L (137-145) mmol/L Potassium 3.0 L (3.5-5.1) mmol/L Chloride 110 H (98-107) mmol/L BUN 30 H (7-17) mg/dL Creatinine 2.00 H (0.52-1.04) mg/dL Calcium 7.6 L (8.4-10.2) mg/dL Microbiology - Last 24 Hours (Table) 03/04/24 19:20 Blood Culture - Preliminary Blood 06/09/24 19:05 Blood Culture - Preliminary Blood Assessment and Plan Assessment: Hypotension, improved and the patient is currently off pressors. IV fluids are currently at KVO Fall and near syncopal event, secondary to above Severe dehydration and reduced oral intake in addition to hematuria, improved Acute on chronic kidney disease, secondary to above, hypotension, and ATN, renal function improved and creatinine is currently stable Gross hematuria, secondary to UTI and the patient is growing gram-negative bacil jairo/Klebsiella pneumonia and the hematuria has completely subsided UTI with Klebsiella pneumonia Paroxysmal atrial fibrillation, anticoagulated on Eliquis, currently in atrial fibrillation with rapid ventricular response patient is currently on a Cardizem drip with 5 mg an hour. Chronic microcytic, hypochromic anemia, hemoglobin stable and the patient got transfused with a total of 2 units of packed RBC Coronary artery disease, with recent PCI/stent to the LAD performed 10/28/2023 History of mild to moderate mitral regurgitation, preserved LV function History of diabetes mellitus, type II History of hypothyroidism Chronic kidney disease stage III History of hyperlipidemia Remote history of uterine CA Plan: Chest x-ray findings are stable IV fluids at KVO For diuretics Renal function stable Titrate FiO2 and the patient is currently on 2 L Eliquis was restarted Continue IV Rocephin Monitor hematuria and this has subsided Monitor hemoglobin Patient was given a total of 2 units of packed RBC during the current hospitalization Patient was given Kcentra and he is currently off Eliquis Increase the metoprolol to 50 mg 3 times daily and wean off and discontinue the Cardizem drip Urology is on the case keep the Streeter catheter in place CAT scan of the abdomen and pelvis was done and showed no acute abnormalities Will continue to follow\
--- NOTE | 2024-03-08 13:08 | P.PN ---
Subjective patient is seen for follow-up for acute kidney injury. Admitted with significant hematuria and maintained on antibiotics for UTI. Urine has cleared. Patient is also being followed by urology. Serum creatinine staying at 1.9-2 mg/dL urine output at 50-60 mL an hour. off of IV fluids now. Objective - Vital Signs Vital signs: Vital Signs Temp 98.0 F 03/08/24 12:00 Pulse 107 H 03/08/24 12:00 Resp 20 03/08/24 12:00 BP 112/46 03/08/24 11:00 Pulse Ox 96 03/08/24 12:00 FiO2 Intake & Output 03/07/24 03/08/24 03/08/24 18:59 06:59 18:59 Intake Total 1225 1500 392 Output Total 1450 800 215 Balance -225 700 177 Weight 67 kg Intake: IV 170 0.9 KVO 20 Sodium Ferric Gluconat- 100 Sucrose 125 mg In Sodium Chloride 0.9% 100 ml @ 100 mls/hr IVPB DAILY [facility] Rx#:[id number] cefTRIAXone 2 gm In 50 Sodium Chloride 0.9% 50 ml @ 100 mls/hr IVPB Q24HR [facility] Rx#:[id number] Intake, IV Titration 125 Amount Diltiazem 125 mg In 125 Sodium Chloride 0.9% 100 ml @ 10 MG/HR 10 mls/hr IV .[id number] [facility] Rx#: [id number] Oral 1100 1500 222 Output: Urine 1450 800 215 Other: Voiding Method Indwelling Catheter Indwelling Catheter Indwelling Catheter # Bowel Movements 1 1 - Exam patient is sleeping, comfortable, in no acute distress. Examination of the heart S1 and S2 Examination the lungs decreased breath sounds at the bases Abdomen is soft nontender Examination of lower extremities shows trace edema. AVIONICS MECHANIC exam grossly intact - Labs CBC & Chem 7: 03/08/24 04:07 03/08/24 04:07 Labs: Abnormal Lab Results - Last 24 Hours (Table) 03/08/24 03/08/24 Range/Units 04:07 04:07 RBC 2.84 L (3.80-5.40) m/uL Hgb 7.5 L (11.4-16.0) gm/dL Hct 24.1 L (34.0-46.0) % RDW 18.8 H (11.5-15.5) % Sodium 134 L (137-145) mmol/L Potassium 3.0 L (3.5-5.1) mmol/L Chloride 110 H (98-107) mmol/L BUN 30 H (7-17) mg/dL Creatinine 2.00 H (0.52-1.04) mg/dL Calcium 7.6 L (8.4-10.2) mg/dL Microbiology - Last 24 Hours (Table) 03/04/24 19:20 Blood Culture - Preliminary Blood 03/04/24 19:05 Blood Culture - Preliminary Blood Assessment and Plan Assessment: 1. Acute kidney injury, ATN, nonoliguric secondary to hypotension and severe anemia. status post IV fluids. Maintained on antibiotics for UTI. No evidence of obstruction on CT scan. 2. Hematuria associated with anticoagulation. underlying UTI noted as well. No bladder mass seen on imaging studies. patient is being followed by urology. Continue frequent flushing off the catheter. plans for cystoscopy down the road. 3. A. fib with RVR 4. Hypotension secondary to underlying infection and severe anemia. history of hypotension as outpatient as well. Patient was maintained on midodrine. C ortisol level at 19.. 5. Chronic kidney disease NKF stage IIIB with baseline creatinine about 1.6-1.8 mg/dL. etiology is likely diabetic kidney disease. 6. History of CHF with preserved ejection fraction. EF 55-60% on echocardiogram in July 2023. 7. UTI, urine culture is growing gram-negative rods. Patient is maintained on Rocephin. No abnormalities noted on imaging studies. 8. Non-gap metabolic acidosis secondary to acute kidney injury Plan: continue off of IV fluids. Continue frequent flushing off Streeter catheter due to significant hematuria. Repeat labs in a.m. Replace potassium
[2024-03-08] MEDS: POTASSIUM CHLORIDE ER 20 MEQ TAB.ER PO STA ×2 (15:17→17:05)
[2024-03-08] MEDS: SODIUM CHLORIDE 0.9% 1,000 ML IV SCH (15:17)
--- NOTE | 2024-03-08 15:25 | P.PN ---
Subjective Progress Note Date: 03/08/24 HISTORY OF PRESENTING ILLNESS 83-year-old with past medical history of paroxysmal atrial fibrillation, hypertension, dyslipidemia, CKD, chronic diastolic heart failure, last NSTEMI in October 2023 requiring heart cath showing 80% left main stenosis and mid LAD 60 to 70% stenosis with [employer]. She underwent PCI of left main into LAD. Patient has also had multiple hospital visits with A-fib RVR's past. There is also concern of noncompliance to medications. It is unclear if patient has been taking dual antiplatelet therapy since her PCI. This time patient presented to the hospital because of generalized weakness and fatigue and a fall. Apparently patient was found in the bathroom. Patient reported that she became severely lightheaded and could not get up from the sitting position in the bathroom commode. She was down for few hours before her son found her and called the EMS. On admission she was hypotensive and dehydrated along with atrial fibrillation with RVR. Her blood pressure was 80 over 60 mmHg. ECG showed atrial fibrillation with heart rate in the beats were minute, incomplete left bundle branch block with diffuse ST depressions Her labs showed NT proBNP of 18,000, troponin of 0.067, repeat 0.72. Creatinine 2.49, baseline creatinine 1.6 Chest x-ray did not show significant pulm congestion. Pelvic CT showed hypodensity seen in the urinary bladder may reflect blood byproducts. March 06, 2024 Patient continues to have hematuria. It appears slightly better as compared to yesterday. Appears to have 20 to 30 cc/h urine output with slightly improved creatinine to 2.2 today. Hemoglobin is 7.8, platelet 351. She is s/p 2 units of blood transfusion 03/05/2024. Her echocardiogram showed an EF of 65 to 70%, small LV cavity, no significant valvular disease. On exam she reports having diarrhea. Reports feeling weak. Appears slightly d ehydrated getting IV fluids. 03/07/2024 BP 92/62, heart rate 112 bpm, atrial fibrillation with RVR Hemoglobin 7.4. Yesterday it was 7.8. On admission 6.8. She is s/p unit blood transfusion since admission. Renal function has continued to improve, creatinine is 1.9 today. On admission 2.9. She has good urine output. Her hematuria has resolved. 03/08/2024 Patient continues to have significant diarrhea. Hemoglobin is stable. No further hematuria. Appropriate urine output with stable kidney function creatinine at 2 today. Yesterday 119 PHYSICAL EXAMINATION Head: Normocephalic. Eyes: Sclerae nonicteric. Neck: Brisk carotid upstroke, no jugular venous distention. Lungs: Poor inspiratory effort. Heart: irregular pulse, S1-S2, , 2/6 systolic murmur . Abdomen: Soft nontender, positive bowel sounds. Extremities: 1+ edema in leg , non pitting Neuro: no focal deficits. Detailed neuro exam was not performed. ASSESSMENT Elevated troponin, likely type II NSTEMI in setting of BOLA, sepsis and anemia Acute on chronic systolic heart failure, CAD s/p PCI in October 2023. S/p PCI to left main into LAD 4 x 15 mm PRANAY Paroxysmal Atrial fibrillation. Currently Afib, Acute blood loss anemia due to hematuria s/p 2 U PRBC Severe sepsis BOLA on CKD Hyperlipidemia Hypothyroidism Medication non compliance Echo July 2023: EF 55%, severe LVH, moderate MR, Echo February 2024, EF 65%, hyperdynamic LV, moderate LVH, no significant wall motion abnormality. PLAN As her hematuria is resolved and her hemoglobin has been stable, I would start her back on anticoagulation for atrial fibrillation. Patient also had a recent PCI done for which I will place her on Plavix. I will discontinue aspirin. Eliquis 2.5 mg BID and plavix. Continue metoprolol succinate 50 mg TID. Stop Cardizem drip. Agree with IV fluids 40cc/hr for diarrhea, give one dose of imodium Agree with placing iron stores with IV iron IV antibiotics Monitor renal function electrolytes Transfuse blood if hemoglobin less than 7. Objective - Vital Signs Vital signs: Vital Signs Temp 98.0 F 03/08/24 12:00 Pulse 107 H 03/08/24 12:00 Resp 20 03/08/24 12:00 BP 112/46 03/08/24 11:00 Pulse Ox 96 03/08/24 12:00 FiO2 Intake & Output 03/07/24 03/08/24 03/08/24 18:59 06:59 18:59 Intake Total 1225 1500 392 Output Total 1450 800 215 Balance -225 700 177 Weight 67 kg Intake: IV 170 0.9 KVO 20 Sodium Ferric Gluconat- 100 Sucrose 125 mg In Sodium Chloride 0.9% 100 ml @ 100 mls/hr IVPB DAILY [facility] Rx#:[id number] cefTRIAXone 2 gm In 50 Sodium Chloride 0.9% 50 ml @ 100 mls/hr IVPB Q24HR [facility] Rx#:[id number] Intake, IV Titration 125 Amount Diltiazem 125 mg In 125 Sodium Chloride 0.9% 100 ml @ 10 MG/HR 10 mls/hr IV .[id number] [facility] Rx#: [id number] Oral 1100 1500 222 Output: Urine 1450 800 215 Other: Voiding Method Indwelling Catheter Indwelling Catheter Indwelling Catheter # Bowel Movements 1 1 - Labs CBC & Chem 7: 03/08/24 04:07 03/08/24 04:07 Labs: Abnormal Lab Results - Last 24 Hours (Table) 03/08/24 03/08/24 Range/Units 04:07 04:07 RBC 2.84 L (3.80-5.40) m/uL Hgb 7.5 L (11.4-16.0) gm/dL Hct 24.1 L (34.0-46.0) % RDW 18.8 H (11.5-15.5) % Sodium 134 L (137-145) mmol/L Potassium 3.0 L (3.5-5.1) mmol/L Chloride 110 H (98-107) mmol/L BUN 30 H (7-17) mg/dL Creatinine 2.00 H (0.52-1.04) mg/dL Calcium 7.6 L (8.4-10.2) mg/dL Microbiology - Last 24 Hours (Table) 03/04/24 19:20 Blood Culture - Preliminary Blood 03/04/24 19:05 Blood Culture - Preliminary Blood
[2024-03-08] MEDS: METOPROLOL TARTRATE 50 MG TAB PO SCH (17:05)
[2024-03-08] MEDS: LOPERAMIDE 2 MG CAP PO STA (17:19)
[2024-03-08 19:17] LABS: Anisocytosis Slight; HCT 23.1 % (34.0-46.0); HGB 7.4 gm/dL (11.4-16.0); Hypochromasia Moderate; MCH 27.3 pg (25.0-35.0); MCHC 31.9 g/dL (31.0-37.0); MCV 85.6 fL (80.0-100.0); Platelet Count 323 k/uL (150-450); Poikilocytosis Slight; RDW 19.1 % (11.5-15.5); WBC 9.3 k/uL (3.8-10.6)
[2024-03-08 20:46] LABS: Glucose,Whole Blood 146 mg/dL (70-110)
--- NOTE | 2024-03-09 00:12 | P.PN ---
Subjective Progress Note Date: 03/08/24 HISTORY OF PRESENT ILLNESS: 83-year-old office patient with active medical history of Paroxysmal atrial fibrillation was on anticoagulation, history of hypertension, hyperlipidemia, stage III chronic kidney disease, chronic diastolic congestive heart failure, who also had recently history of non-ST CO with heart cath showed CAD including left main at 80% stenosis with mild LAD at 60 to 70% stenosis with circumflex 100% stenosis ended up having PCI of the left main and LAD, patient had multiple visits to the emergency department last few months with recurrent A-fib with RVR with similar claimed that she ran out of medication, she stopped taking medication a week ago, and many other. Sadly since her angioplasty and stent placement and the harm of not being on dual antiplatelet agent and her current medications extremely dangerous despite explaining this to the patient it looks like this event keep happening. She was hospitalized again in November for A-fib with RVR along with elevated troponin and anemia. She has been complaining of generalized weakness and fatigue post fall she apparently found in the bathroom developed severe lightheadedness and fell her son found her after work she was down for total hours she hit her head and right chest area has not had anything to eat or drink all day Call 911 patient brought to the emergency department at [facility] CT of the brain without contrast did not show any acute abnormality there is atrophy and microvascular finding. Found to be extremely hypertensive she was giving 1 L of IV saline and continue with 130 cc an hour she remained quite hypotensive she had anemia as well and found to be in A-fib with pulse rate running 110 beats per minutes her blood pressure still 80/60 she was started on vasopressor with norepinephrine was not having any chest pain or tightness at her proBNP was 18,800 with mildly elevated troponin. Her urine shows gross hematuria and has been having apparently problem with burning discomfort in bloody urine. She is on Eliquis for A-fib with RVR so she is on 2 Plavix since her angioplasty and stent early. 2 g of Rocephin was giving culture was done for blood and urine her hemoglobin initially was 8.8 and within few hours dropped down to 6 with hydration patient does not have any visual active GI bleed her BUN 54 creatinine 2.72 much worse than before lactic acid at 3.1. Patient was transferred to the ICU continue hydration, vasopressor, process for blood transfusion to be done. 03/06/2024: Continue to have gross hematuria causing more anemia despite a blood transfusion. Urology seen the patient and believe this is hemorrhagic cystitis aggravated by anticoagulation and they are recommending to irrigate the catheter when necessary still waiting for the urine culture to be finalized in the meanwhile she has remained on Rocephin 2 g daily. She is off vasopressor currently hemoglobin is up to 7.8. 2 unit of packed red cell transfusion. White blood cell is down 7.5 with normal platelet and creatinine improve down to 2.2 with bun of 43. Echocardiogram showed ejection fraction well-preserved with no significant valvular abnormality but mild left ventricular hypertrophy. Patient remain off anticoagulation and was giving 1 dose of Kcentra yesterday still holding on Eliquis and Plavix with cardiology restarted aspirin 81 mg a day. 03/07/2024: Continue to be on 4 L of oxygen to keep her pulse ox above 90 percentile, she had A-fib with RVR with significant worsening congestion of the lung consistent with more heart failure at this point. Started on Cardizem drip 10 mg an hour with her pulse remained above 100, hemoglobin still at 7.4 with normal platelet count creatinine 1.98 still been treated for urine positive for Klebsiella pneumonia with IV antibiotics at this point. Continue to have significant amount of hematuria mostly hemorrhagic cystitis and urology believe he can wait on doing cystoscopy to when she is stable as an outpatient. The kidney function slightly better still seen nephrology discussed that to be acute tubular necrosis nonoliguric secondary to hypotension anemia and sepsis to continue IV continue to treat UTI with no evidence of obstruction. 03/08/2024: Urine culture was positive for Klebsiella pneumonia which patient is responding well to IV Rocephin currently, hemodynamically become more stable, her hematuria has been much better and still having twinges of blood in the catheter. Respiratory failure [place] she is require between 2 and 3 L of O2 to keep her pulse ox above 90 percentile. She is still on Cardizem drip 5 mg an hour to keep pulse under 90 bpm also on Lopressor 50 mg twice a day and still on Eliquis 2.5 mg twice a day. Patient had slight pleural effusion advance diet mobility still significantly decreased and limited to bedrest currently. Nephrology wants her creatinine is down to 2.0 with GFR slightly bit better, continue hydration despite expansion of fluid overload causing more problem at this point. Hoping her creatinine will be down to its baseline before this happened. From cardiology standpoint ejection fraction on echo was well-preserved at 65-70 percentile with no significant valvular heart disease. Cardizem apparently is going to be stopped at some point soon try to monitor her pulse below 90 possible. REVIEW OF SYSTEMS: CONSTITUTIONAL: Well-developed in no respiratory distress. EYES: No icterus sclerae, no conjunctivitis. EARS, NOSE, MOUTH, THROAT, and FACE: No sore throat, lymphadenopathy, carotid bruits or deformity. RESPIRATORY: Mild shortness of breath and dyspnea with no cough or wheezes. CARDIOVASCULAR: Positive palpitation and A-fib with no angina positive PND and orthopnea. GASTROINTESTINAL: No Abd pain, Nausea or vomiting, no Diarrhea or constipation, No GI Bleed, no distention or masses. GENITOURINARY: Negative for Hematuria or UTI, no kidney stones. INTEGUMENT/BREAST: Negative for any muscular injury with mild osteoarthritis.. HEMATOLOGIC/LYMPHATIC: Negative for bleed or purpura. MUSCULOSKELTAL: Negative for Myalgia or arthralgia. NEURLOGICAL: No LOC, Sz or syncope, blurred vision dizziness or abnormality.. BEHAVIORAL/PSYCH: Negative. ENDOCRINE: Negative. PHYSICAL EXAMINATION: General Appearance: Alert, cooperative, mild distress. Neck HEENT: Supple, no lymphadenopathy, no thyroid enlargement, no carotid bruits. Lungs: Decreased expansion bilaterally with fine rhonchi positive mild rhonchi but no wheezes. Chest Wall: Decreased expansion with deep inspiration no tenderness and no deformity was found on exam, no costochondral pain or discomfort. Heart: Irregular rate and rhythm, S1, S2 positive severe tachycardia positive ejection murmur. Back: Symmetric, no curvature, ROM normal, no CVA tenderness. Abdomen: Soft, non-tender, bowel sounds active all four quadrants, no masses, no organomegaly. Extremities: Trace edema without cyanotic. Pulses: 2+ and symmetric. Skin: Skin color, texture, tugor normal, no rashes or lesions. Neurologic: Alert oriented with slight confusion. Cranial nerves II through XII intact, no motor deficit, no abnormal balance or gait. ASSESSMENT AND PLAN: _Sepsis: Still been treated for Klebsiella pneumonia bacteria culture and urinary tract, patient still on Rocephin responding well to it. _Severe hematuria, most likely from hemorrhagic cystitis, continue antibiotic co ntinue to flush the cath.. _A-fib with RVR still on Cardizem drip metoprolol along with Eliquis Cardizem drip is going to stop. _Acute kidney injury on chronic kidney disease: Acute kidney injury with ATN mostly from volume loss and severe anemia with hydration Blood transfusion kidney function had improved some continue to avoid nephrotoxic agent repeat lab again. She is getting close to her baseline in kidney function. _Acute blood loss anemia: Most likely source of bleeding is and from hemorrhagic cystitis, no need for cystoscopy yet continue supportive care she had 2 unit of blood transfusion hemoglobin is around 8. _Acute systolic congestive heart failure with known coronary artery disease proBNP was 19,900, echocardiogram showed well-preserved ejection fraction, she is continue to have signs and symptoms of heart failure IV diuretics will be started today. Continue to reduce volume loss and supportive care for now. _Possible non-ST CO with elevated troponin's, slightly abnormal EKG known history of myocardial infarction, patient be seen cardiology CK troponin x 3 will be done. _Atherosclerotic heart disease: Post PCI and stent placement from October has been seeing cardiology she needs more assurance probably family need to be more involved making sure she is taking her medication on time and that she does not run out of medication. Consult cardiology holding off on antiplatelet agent for now because of the bleed. Apparently was started on 1 baby aspirin for now. _Type 2 diabetes: Blood sugar is much better so far continue coverage continue Jardiance as well. _Hyperlipidemia: Continue atorvastatin 20 mg a day. _Hypothyroidism: Continue levothyroxine 25 mcg daily. _GI prophylaxis: Will be on pantoprazole 40 mg daily. CODE STATUS: Full code. Discussion: Continue to treat A-fib, continue O2, no need for BiPAP anymore, hemorrhagic cystitis has improved to some degree and does not require any cystoscopy if blood pressure and pulse rate will allow patient can transfer out of the ICU today. Objective - Vital Signs Vital signs: Vital Signs Temp 98.2 F 03/08/24 04:00 Pulse 118 H 03/08/24 06:00 Resp 15 03/08/24 06:00 BP 100/50 03/08/24 06:00 Pulse Ox 98 03/08/24 05:00 FiO2 Intake & Output 03/07/24 03/07/24 03/08/24 06:59 18:59 06:59 Intake Total 496.604 8239 1500 Output Total 1189 1450 800 Balance -715.333 -225 700 Weight 68.7 kg Intake: Intake, IV Titration 113.667 125 Amount Diltiazem 125 mg In 113.667 125 Sodium Chloride 0.9% 100 ml @ 10 MG/HR 10 mls/hr IV .[id number] [facility] Rx#: [id number] Oral 360 1100 1500 Output: Urine 1189 1450 800 Other: Voiding Method Indwelling Catheter Indwelling Catheter Indwelling Catheter # Bowel Movements 1 1 - Labs CBC & Chem 7: 03/08/24 19:01 03/08/24 04:07 Labs: Abnormal Lab Results - Last 24 Hours (Table) 03/07/24 03/07/24 03/08/24 Range/Units 06:08 06:08 04:07 RBC 2.84 L 2.84 L (3.80-5.40) m/uL Hgb 7.4 L 7.5 L (11.4-16.0) gm/dL Hct 23.4 L 24.1 L (34.0-46.0) % RDW 18.8 H 18.8 H (11.5-15.5) % Neutrophils # 9.1 H (1.3-7.7) k/uL Lymphocytes # 0.8 L (1.0-4.8) k/uL Sodium (137-145) mmol/L Potassium (3.5-5.1) mmol/L Chloride 113 H (98-107) mmol/L Carbon Dioxide 18 L (22-30) mmol/L BUN 33 H (7-17) mg/dL Creatinine 1.98 H (0.52-1.04) mg/dL Glucose 129 H (74-99) mg/dL Calcium 7.8 L (8.4-10.2) mg/dL Total Protein 5.3 L (6.3-8.2) g/dL Albumin 2.3 L (3.5-5.0) g/dL 03/08/24 Range/Units 04:07 RBC (3.80-5.40) m/uL Hgb (11.4-16.0) gm/dL Hct (34.0-46.0) % RDW (11.5-15.5) % Neutrophils # (1.3-7.7) k/uL Lymphocytes # (1.0-4.8) k/uL Sodium 134 L (137-145) mmol/L Potassium 3.0 L (3.5-5.1) mmol/L Chloride 110 H (98-107) mmol/L Carbon Dioxide (22-30) mmol/L BUN 30 H (7-17) mg/dL Creatinine 2.00 H (0.52-1.04) mg/dL Glucose (74-99) mg/dL Calcium 7.6 L (8.4-10.2) mg/dL Total Protein (6.3-8.2) g/dL Albumin (3.5-5.0) g/dL Microbiology - Last 24 Hours (Table) 03/04/24 19:20 Blood Culture - Preliminary Blood 03/04/24 19:05 Blood Culture - Preliminary Blood
[2024-03-09 04:45] LABS: Anisocytosis Slight; Basophils % (A) 0 %; Eosinophils % (A) 1 %; HCT 20.8 % (34.0-46.0); Hypochromasia Slight; Lymphocytes # (A) 0.9 k/uL (1.0-4.8); Lymphocytes % (A) 13 %; MCH 26.9 pg (25.0-35.0); MCHC 31.5 g/dL (31.0-37.0); MCV 85.5 fL (80.0-100.0); Mean Platelet Volume 7.2; Monocytes # (A) 0.3 k/uL (0-1.0); Monocytes % (A) 4 %; Neutrophils # (A) 5.8 k/uL (1.3-7.7); Neutrophils % (A) 81 %; Platelet Count 273 k/uL (150-450); Poikilocytosis Slight; RBC 2.43 m/uL (3.80-5.40); RDW 19.7 % (11.5-15.5); WBC 7.2 k/uL (3.8-10.6)
[2024-03-09 05:01] LABS: African American GFR (CKD) 28 (>60 ml/min/1.73 sqM); Anion Gap 1 mmol/L; Blood Urea Nitrogen 31 mg/dL (7-17); Calcium 7.6 mg/dL (8.4-10.2); Carbon Dioxide 21 mmol/L (22-30); Chloride 111 mmol/L (98-107); Glucose 106 mg/dL (74-99); Non-African American GFR(CKD) 25 (>60 ml/min/1.73 sqM); Potassium 3.7 mmol/L (3.5-5.1); Sodium 133 mmol/L (137-145)
[2024-03-09 05:41] LABS: HGB 6.5 gm/dL (11.4-16.0)
[2024-03-09] MEDS: MIDODRINE 5 MG TAB PO SCH (09:38)
--- NOTE | 2024-03-09 15:39 | P.PN ---
Subjective Progress Note Date: 03/09/24 Patient is a 83-year-old white female with past medical history significant for coronary artery disease with recent stent, valvular heart disease, atrial fibrillation anticoagulated on Eliquis, hypertension, diabetes mellitus, uterine cancer. Of note, patient had a recent hospitalization September, for non-ST elevation [facility] and received a stent to the LAD. Patient presented to emergency room yesterday afternoon with a chief complaint of generalized weakness and fatigue and she had a fall. She was apparently in the bathroom where she went to get up and became lightheaded and fell. She states that her son was at work at this time, he found her when he came home. She was on the ground for a co uple hours. States that she did hit her head and right chest. Did not have anything to eat or drink all day. Her son was the one that called 911. She states that over the last several days she has been generally weak. CT of the brain without contrast did not show any acute intracranial abnormality. There is atrophy and chronic microvessel ischemic white matter changes. While being evaluated by the ER room physician, she was noted to be hypotensive. She has been fluid resuscitated with 1 L of normal saline bolus, and currently has normal saline infusing at 130 MLS per hour. She does take midodrine outpatient. After the 1 L normal saline bolus, patient remained hypotensive, and my sup ervising physician recommended ICU monitoring. Patient is currently in the emergency department, room 7. She appears fairly comfortable. She is on room air. SpO2 100%. Blood pressure currently 85/61 mmHg. Heart rhythm appears to be atrial fibrillation with a rate of 118 bpm. Norepinephrine has not been started yet. She denies any radiating chest pain, there is some localized reproducible right-sided chest pain where she impacted on fall. Denies any heart palpitations or syncopal events. She has a pure wick suction catheter, there is presumed gross hematuria in the canister. She is not able to tell me how long this has been occurring for. She denies kidney stones. She is on Eliquis outpatient. Patient does admit to some continuous pelvic discomfort/pressure. No flank pain. No burning with urination, no increased urinary frequency. She is chronically incontinent to urine. She has noted blood clots in her underwear. She has remote history of uterine cancer. She does not think this is vaginal bleeding. She received a dose of Rocephin in the emergency room for possible UTI. Urinalysis showing hina blood and WBCs. Culture is pending. She is afebrile. CBC without leukocytosis. Hemoglobin 8.8 g/dL, hematocrit 28.7. Platelets 471. CMP on arrival: Sodium 130, potassium 3.3, chloride 98, serum bicarb 23, BUN 54, creatinine 2.72, glucose 275. Lactic acid originally 3.1 and down to 1.7. LFTs not elevated. EKG done on arrival showed atrial fibrillation with a rate of [address] depressions in the lateral leads. Troponin less than 0.012. NT proBNP 19,900. Chest x-ray shows stable cardiac silhouette, no pulmonary vascular congestion or edema, no acute infiltrates, no pleural effusions or pneumothoraces. She is going to be monitored in the intensive care unit, and transferred once bed available. On 03/06/2024, the patient continues to have hematuria although this has somewhat improved compared to yesterday. Urine output is still bloody and the intensity of the blood is less compared to yesterday. Noted the patient drop in hemoglobin yesterday down to 6.8 and she was given additional unit of packed RBC making a total of 2 units of packed RBC and hemoglobin is currently up to 7.8. She remains on normal saline at the rate of 130 cc an hour. The norepinephrine infusion was discontinued around 5:00 this morning. She is in atrial fibrilla tion. She is slightly tachycardic. Urine culture is showing gram-negative bacillus and the patient is currently on IV Rocephin. The WBC count is at 7.5, hemoglobin 7.8 and a platelet count of 351. Creatinine is improving is currently down to 2.2 again of 43, serum bicarb is at 17 with a sodium level of 135 and a potassium level of 3.4 and this needs to be replaced. The cortisol level is at 19.2. This was a random cortisol level. Echocardiogram was also done on 03/05/2024 revealing a ejection fraction of 65 to 70%, small LV cavity, mildly increased septal wall thickening, mild increase in the posterior wall thickening, no significant valvular abnormalities noted. Mild LVH. Noted the p atient was given Kcentra yesterday. The patient is currently off anticoagulation. 03/07/2024, the patient is being seen for a follow-up. Patient is doing well. The patient is not having any active hematuria at this point in time. The hematuria has subsided. She is currently on 4 L of oxygen by nasal cannula. She has been off norepinephrine since 5 AM this morning. IV fluids are currently at KVO. The patient however developed atrial fibrillation with rapid ventricular response 6 PM yesterday. Her lungs are also congested. Based on that, she was given a dose of Lasix in the morning. She is currently on a Cardizem drip running at 10 mg an hour. She remains calm and comfortable. No significant chest pain. The white count of 10.6 with a hemoglobin 7.4 and a platelet count of 345. BUN 33 with a creatinine of 1.98 and the sodium is at 137. Urine culture is positive for Klebsiella pneumonia. 03/08/2024, the patient is not having any hematuria. She was diagnosed having a Klebsiella pneumoniae urine tract infection with secondary hematuria and hematuria has subsided. The patient remains on IV Rocephin. Hemodynamically stable on no pressors. Still on Cardizem drip which is running at 5 mg hour. She is also on Lopressor current dose of 50 mg p.o. twice a day. Anticoagul ation was restarted by the medical group and the patient is currently on Eliquis 2.5 mg p.o. twice a day. She remains on oxygen and she is currently on 2 L nasal cannula. Some limited cough and congestion. Chest x-ray was done and showed improving interstitial pattern which was attribute to pulmonary vascular congestion/venous congestion and a stable tiny left lower lobe effusion. Otherwise, no other new complaints. Tolerating diet. No chest pain. the patient is still having hematuria on today's evaluation on 03/09/2024, the patient is having hematuria. Noted aspirin and Eliquis was restarted back by cardiology. As such, the patient developed hematuria and the medications were essentially discontinued. Hemoglobin dropped down to 6.5 and the patient is going to be receiving 1 unit of packed RBC. She is also having some liquid diarrhea. Will check stool for C. difficile. The patient remains in atrial fibrillation. She remains quite tachycardic and she is currently on metoprolol 50 mg p.o. 3 times daily. Will add Cardizem for better rate control. The patient remains on IV Rocephin. White cell count is 7.2, platelet count 273, creatinine is down to 1.89 with a BUN of 31 and a sodium levels of 133. No other significant events overnight. She is awake and alert and communicating. No signs of any significant respiratory distress. Chest x-ray findings were stable and improving. Objective - Vital Signs Vital signs: Vital Signs Temp 97.9 F 03/09/24 09:40 Pulse 118 H 03/09/24 09:40 Resp 22 03/09/24 09:40 BP 100/58 03/09/24 09:40 Pulse Ox 96 03/09/24 09:40 FiO2 Intake & Output 03/08/24 03/09/24 03/09/24 18:59 06:59 18:59 Intake Total 952 480 342 Output Total 575 685 225 Balance 377 -205 117 Weight 68.7 kg Intake: IV 330 480 120 0.9 KVO 100 Sodium Chloride 0.9% 1, 80 480 120 000 ml @ 40 mls/hr IV . Q24H [facility] Rx#:[id number] Sodium Ferric Gluconat- 100 Sucrose 125 mg In Sodium Chloride 0.9% 100 ml @ 100 mls/hr IVPB DAILY [facility] Rx#:[id number] cefTRIAXone 2 gm In 50 Sodium Chloride 0.9% 50 ml @ 100 mls/hr IVPB Q24HR [facility] Rx#:[id number] Oral 622 222 Blood Product 0 Rc Pheresis As-3 Unit 0 [id number] Output: Urine 575 685 225 Other: Voiding Method Indwelling Catheter Indwelling Catheter # Bowel Movements 1 - Exam GENERAL EXAM: Alert, 83-year-old white female, comfortable in no apparent distress. The patient is on 2 L of oxygen by nasal cannula HEAD: Normocephalic and atraumatic EYES: Normal reaction of pupils, equal size. NOSE: Clear with pink turbinates. THROAT: No erythema or exudates. NECK: No masses, no JVD. CHEST: No chest wall deformity. LUNGS: Equal air entry with bibasilar inspiratory crackles. No conversational dyspnea or accessory muscle use.. CVS: S1 and S2 normal with soft grade 1 systolic murmur, irregular rhythm. No extra heart sounds ABDOMEN: No hepatosplenomegaly, active bowel sounds, no guarding or rigidity. SPINE: No scoliosis or deformity. No CVA tenderness. SKIN: No rashes, generalized pallor CENTRAL NERVOUS SYSTEM: No focal deficits, tone is normal in all 4 extremities. EXTREMITIES: There is bilateral lower extremity edema, greater on the right. No clubbing, or cyanosis. Peripheral pulses are intact. - Labs CBC & Chem 7: 03/09/24 03:52 03/09/24 03:52 Labs: Abnormal Lab Results - Last 24 Hours (Table) 03/08/24 03/08/24 03/09/24 Range/Units 19:01 20:44 03:52 RBC 2.70 L 2.43 L (3.80-5.40) m/uL Hgb 7.4 L 6.5 L* (11.4-16.0) gm/dL Hct 23.1 L 20.8 L (34.0-46.0) % RDW 19.1 H 19.7 H (11.5-15.5) % Lymphocytes # 0.9 L (1.0-4.8) k/uL Sodium (137-145) mmol/L Chloride (98-107) mmol/L Carbon Dioxide (22-30) mmol/L BUN (7-17) mg/dL Creatinine (0.52-1.04) mg/dL Glucose (74-99) mg/dL POC Glucose (mg/dL) 146 H (70-110) mg/dL Calcium (8.4-10.2) mg/dL Crossmatch 03/09/24 03/09/24 Range/Units 03:52 05:45 RBC (3.80-5.40) m/uL Hgb (11.4-16.0) gm/dL Hct (34.0-46.0) % RDW (11.5-15.5) % Lymphocytes # (1.0-4.8) k/uL Sodium 133 L (137-145) mmol/L Chloride 111 H (98-107) mmol/L Carbon Dioxide 21 L (22-30) mmol/L BUN 31 H (7-17) mg/dL Creatinine 1.89 H (0.52-1.04) mg/dL Glucose 106 H (74-99) mg/dL POC Glucose (mg/dL) (70-110) mg/dL Calcium 7.6 L (8.4-10.2) mg/dL Crossmatch See Detail Assessment and Plan Assessment: Hematuria, on and off related to intake of aspirin and anticoagulation with Eliq uis. Both agents have been discontinued. Patient dropped her hemoglobin down to 6.7 the patient is going to receive units of packed RBC. This hematuria is attributed to urine tract infection and intake of anticoagulants. Will need a cystoscopy later stage once hematuria settles. Urology is on the case. Hypotension, improved and the patient is currently off pressors. IV fluids are currently at KVO Fall and near syncopal event, secondary to above Severe dehydration and reduced oral intake in addition to hematuria, improved Acute on chronic kidney disease, secondary to above, hypotension, and ATN, renal function improved and creatinine is still improving. UTI with Klebsiella pneumonia, remains on IV Rocephin Chronic A-fib, currently on metoprolol 50 mg 3 times daily, no anticoagulants. Chronic microcytic, hypochromic anemia, hemoglobin stable and the patient got transfused with a total of 2 units of packed RBC Coronary artery disease, with recent PCI/stent to the LAD performed 10/28/2023 History of mild to moderate mitral regurgitation, preserved LV function History of diabetes mellitus, type II History of hypothyroidism Chronic kidney disease stage III History of hyperlipidemia Remote history of uterine CA Plan: IV fluids at KVO Renal function stable, improving Titrate FiO2 and the patient is currently on 2 L Hold aspirin and anticoagulation with Eliquis Continue IV Rocephin Monitor hematuria Monitor hemoglobin Transfuse units of packed RBC and monitor the hemoglobin level Increase the metoprolol to 50 mg 3 times daily and start the patient on Cardizem 60 mg p.o. 3 times daily for better rate control Midodrine for borderline hypotension Urology is on the case keep the Streeter catheter in place CAT scan of the abdomen and pelvis was done and showed no acute abnormalities Will continue to follow\
[2024-03-09] MEDS: DILTIAZEM ORAL 60 MG TAB PO SCH (16:30)
--- NOTE | 2024-03-09 17:14 | P.PN ---
Subjective Patient is seen for follow-up for acute kidney injury. Admitted with significant hematuria and maintained on antibiotics for UTI. Urine had cleared but bleeding has worsened again after anticoagulation was restarted. Patient is being followed by urology. Eliquis has been discontinued again. Serum creatinine decreased to 1.89 mg/dL urine output at 50-60 mL an hour. off of IV fluids now. Receiving packed RBCs as hemoglobin was 6.5 and blood pressure is lower today. Objective - Vital Signs Vital signs: Vital Signs Temp 98.0 F 03/09/24 16:00 Pulse 109 H 03/09/24 16:00 Resp 20 03/09/24 16:00 BP 106/88 03/09/24 16:00 Pulse Ox 99 03/09/24 12:34 FiO2 Intake & Output 03/08/24 03/09/24 03/09/24 18:59 06:59 18:59 Intake Total 952 480 916 Output Total 575 685 670 Balance 377 -205 246 Weight 68.7 kg 68.7 kg Intake: IV 330 480 210 0.9 KVO 100 40 Sodium Chloride 0.9% 1, 80 480 120 000 ml @ 40 mls/hr IV . Q24H [facility] Rx#:[id number] Sodium Ferric Gluconat- 100 Sucrose 125 mg In Sodium Chloride 0.9% 100 ml @ 100 mls/hr IVPB DAILY [facility] Rx#:[id number] cefTRIAXone 2 gm In 50 50 Sodium Chloride 0.9% 50 ml @ 100 mls/hr IVPB Q24HR [facility] Rx#:[id number] Oral 622 422 Blood Product 284 Rc Pheresis As-3 Unit 284 [id number] Output: Urine 575 685 670 Other: Voiding Method Indwelling Catheter Indwelling Catheter Indwelling Catheter # Bowel Movements 1 - Exam patient is sleeping, comfortable, in no acute distress. Examination of the heart S1 and S2 Examination the lungs decreased breath sounds at the bases Abdomen is soft nontender Examination of lower extremities shows trace edema. [employer] exam grossly intact - Labs CBC & Chem 7: 03/09/24 03:52 03/09/24 03:52 Labs: Abnormal Lab Results - Last 24 Hours (Table) 03/08/24 03/08/24 03/09/24 Range/Units 19:01 20:44 03:52 RBC 2.70 L 2.43 L (3.80-5.40) m/uL Hgb 7.4 L 6.5 L* (11.4-16.0) gm/dL Hct 23.1 L 20.8 L (34.0-46.0) % RDW 19.1 H 19.7 H (11.5-15.5) % Lymphocytes # 0.9 L (1.0-4.8) k/uL Sodium (137-145) mmol/L Chloride (98-107) mmol/L Carbon Dioxide (22-30) mmol/L BUN (7-17) mg/dL Creatinine (0.52-1.04) mg/dL Glucose (74-99) mg/dL POC Glucose (mg/dL) 146 H (70-110) mg/dL Calcium (8.4-10.2) mg/dL Crossmatch 03/09/24 03/09/24 Range/Units 03:52 05:45 RBC (3.80-5.40) m/uL Hgb (11.4-16.0) gm/dL Hct (34.0-46.0) % RDW (11.5-15.5) % Lymphocytes # (1.0-4.8) k/uL Sodium 133 L (137-145) mmol/L Chloride 111 H (98-107) mmol/L Carbon Dioxide 21 L (22-30) mmol/L BUN 31 H (7-17) mg/dL Creatinine 1.89 H (0.52-1.04) mg/dL Glucose 106 H (74-99) mg/dL POC Glucose (mg/dL) (70-110) mg/dL Calcium 7.6 L (8.4-10.2) mg/dL Crossmatch See Detail Assessment and Plan Assessment: 1. Acute kidney injury, ATN, nonoliguric secondary to hypotension and severe anemia. status post IV fluids. Maintained on antibiotics for UTI. No evidence of obstruction on CT scan. 2. Hematuria associated with anticoagulation. underlying UTI noted as well. No bladder mass seen on imaging studies. patient is being followed by urology. Continue frequent flushing off the catheter. Plans for cystoscopy down the road. Anticoagulation on hold. 3. A. fib with RVR 4. Hypotension secondary to underlying infection and severe anemia. history of hypotension as outpatient as well. Patient was maintained on midodrine. Cortisol level at 19.. 5. Chronic kidney disease NKF stage IIIB with baseline creatinine about 1.6-1.8 mg/dL. etiology is likely diabetic kidney disease. 6. History of CHF with preserved ejection fraction. EF 55-60% on echocardiogram in July 2023. 7. UTI, urine culture is growing gram-negative rods. Patient is maintained on Rocephin. No abnormalities noted on imaging studies. 8. Non-gap metabolic acidosis secondary to acute kidney injury Plan: Continue frequent flushing off Streeter catheter due to significant hematuria. Repeat labs in a.m. DC IV fluids Agree with packed RBCs transfusion.
--- NOTE | 2024-03-09 18:01 | P.PN ---
Subjective Progress Note Date: 03/09/24 HISTORY OF PRESENTING ILLNESS 83-year-old with past medical history of paroxysmal atrial fibrillation, hypertension, dyslipidemia, CKD, chronic diastolic heart failure, last NSTEMI in October 2023 requiring heart cath showing 80% left main stenosis and mid LAD 60 to 70% stenosis with BIOTECHNOLOGIST of LCx. She underwent PCI of left main into LAD. Patient has also had multiple hospital visits with A-fib RVR's past. There is also concern of noncompliance to medications. It is unclear if patient has been taking dual antiplatelet therapy since her PCI. This time patient presented to the hospital because of generalized weakness and fatigue and a fall. Apparently patient was found in the bathroom. Patient reported that she became severely lightheaded and could not get up from the sitting position in the bathroom commode. She was down for few hours before her son found her and called the EMS. On admission she was hypotensive and dehydrated along with atrial fibrillation with RVR. Her blood pressure was 80 over 60 mmHg. ECG showed atrial fibrillation with heart rate in the beats were minute, incomplete left bundle branch block with diffuse ST depressions Her labs showed NT proBNP of 18,000, troponin of 0.067, repeat 0.72. Creatinine 2.49, baseline creatinine 1.6 Chest x-ray did not show significant pulm congestion. Pelvic CT showed hypodensity seen in the urinary bladder may reflect blood byproducts. March 06, 2024 Patient continues to have hematuria. It appears slightly better as compared to yesterday. Appears to have 20 to 30 cc/h urine output with slightly improved creatinine to 2.2 today. Hemoglobin is 7.8, platelet 351. She is s/p 2 units of blood transfusion 03/05/2024. Her echocardiogram showed an EF of 65 to 70%, small LV cavity, no significant valvular disease. On exam she reports having diarrhea. Reports feeling weak. Appears slightly d ehydrated getting IV fluids. 03/07/2024 BP 92/62, heart rate 112 bpm, atrial fibrillation with RVR Hemoglobin 7.4. Yesterday it was 7.8. On admission 6.8. She is s/p unit blood transfusion since admission. Renal function has continued to improve, creatinine is 1.9 today. On admission 2.9. She has good urine output. Her hematuria has resolved. 03/08/2024 Patient continues to have significant diarrhea. Hemoglobin is stable. No further hematuria. Appropriate urine output with stable kidney function creatinine at 2 today. Yesterday 119 Patient's diarrhea is better after 1 dose of Imodium. Patient's hemoglobin is dropped to 6.5. Patient started having hematuria again. Will stop her Eliquis and Plavix. Will resume her on aspirin because of recent PCI. PHYSICAL EXAMINATION Head: Normocephalic. Eyes: Sclerae nonicteric. Neck: Brisk carotid upstroke, no jugular venous distention. Lungs: Poor inspiratory effort. Heart: irregular pulse, S1-S2, , 2/6 systolic murmur . Abdomen: Soft nontender, positive bowel sounds. Extremities: 1+ edema in leg , non pitting Neuro: no focal deficits. Detailed neuro exam was not performed. ASSESSMENT Elevated troponin, likely type II NSTEMI in setting of BOLA, sepsis and anemia Acute on chronic systolic heart failure, CAD s/p PCI in October 2023. S/p PCI to left main into LAD 4 x 15 mm PRANAY Paroxysmal Atrial fibrillation. Currently Afib, Acute blood loss anemia due to hematuria s/p 2 U PRBC Severe sepsis BOLA on CKD Hyperlipidemia Hypothyroidism Medication non compliance Echo July 2023: EF 55%, severe LVH, moderate MR, Echo February 2024, EF 65%, hyperdynamic LV, moderate LVH, no significant wall motion abnormality. PLAN Patient starting having hematuria again on Eliquis and Plavix. This was done in view of her atrial fibrillation and recent PCI. Will stop her Eliquis and Plavix. Will start her on aspirin 81 mg Increase metoprolol to 100 mg twice daily. Stop Cardizem drip. Patient is also having hypotension and she was started on midodrine. I will discontinue her antihypertensives and discontinue her midodrine at this time and will monitor. Agree with placing iron stores with IV iron IV antibiotics Monitor renal function electrolytes Transfuse blood if hemoglobin less than 7. Appreciate urology recommendations on hematuria, and recommendations when to resume anticoagulation Objective - Vital Signs Vital signs: Vital Signs Temp 98.0 F 03/09/24 16:00 Pulse 109 H 03/09/24 16:00 Resp 20 03/09/24 16:00 BP 106/88 03/09/24 16:00 Pulse Ox 99 03/09/24 12:34 FiO2 Intake & Output 03/08/24 03/09/24 03/09/24 18:59 06:59 18:59 Intake Total 952 480 916 Output Total 575 005 670 Balance 377 -205 246 Weight 68.7 kg 68.7 kg Intake: IV 330 480 210 0.9 KVO 100 40 Sodium Chloride 0.9% 1, 80 480 120 000 ml @ 40 mls/hr IV . Q24H [facility] Rx#:[id number] Sodium Ferric Gluconat- 100 Sucrose 125 mg In Sodium Chloride 0.9% 100 ml @ 100 mls/hr IVPB DAILY [facility] Rx#:[id number] cefTRIAXone 2 gm In 50 50 Sodium Chloride 0.9% 50 ml @ 100 mls/hr IVPB Q24HR [facility] Rx#:[id number] Oral 622 422 Blood Product 284 Rc Pheresis As-3 Unit 284 [id number] Output: Urine 570 869 383 Other: Voiding Method Indwelling Catheter Indwelling Catheter Indwelling Catheter # Bowel Movements 1 - Labs CBC & Chem 7: 03/09/24 03:52 03/09/24 03:52 Labs: Abnormal Lab Results - Last 24 Hours (Table) 03/08/24 03/08/24 03/09/24 Range/Units 19:01 20:44 03:52 RBC 2.70 L 2.43 L (3.80-5.40) m/uL Hgb 7.4 L 6.5 L* (11.4-16.0) gm/dL Hct 23.1 L 20.8 L (34.0-46.0) % RDW 19.1 H 19.7 H (11.5-15.5) % Lymphocytes # 0.9 L (1.0-4.8) k/uL Sodium (137-145) mmol/L Chloride (98-107) mmol/L Carbon Dioxide (22-30) mmol/L BUN (7-17) mg/dL Creatinine (0.52-1.04) mg/dL Glucose (74-99) mg/dL POC Glucose (mg/dL) 146 H (70-110) mg/dL Calcium (8.4-10.2) mg/dL Crossmatch 03/09/24 03/09/24 Range/Units 03:52 05:45 RBC (3.80-5.40) m/uL Hgb (11.4-16.0) gm/dL Hct (34.0-46.0) % RDW (11.5-15.5) % Lymphocytes # (1.0-4.8) k/uL Sodium 133 L (137-145) mmol/L Chloride 111 H (98-107) mmol/L Carbon Dioxide 21 L (22-30) mmol/L BUN 31 H (7-17) mg/dL Creatinine 1.89 H (0.52-1.04) mg/dL Glucose 106 H (74-99) mg/dL POC Glucose (mg/dL) (70-110) mg/dL Calcium 7.6 L (8.4-10.2) mg/dL Crossmatch See Detail
[2024-03-09 19:45] LABS: Anisocytosis Slight; HCT 28.8 % (34.0-46.0); Hypochromasia Slight; MCH 27.2 pg (25.0-35.0); MCHC 31.5 g/dL (31.0-37.0); MCV 86.5 fL (80.0-100.0); Mean Platelet Volume 7.3; Platelet Count 353 k/uL (150-450); Poikilocytosis Slight; RBC 3.33 m/uL (3.80-5.40); RDW 18.9 % (11.5-15.5); WBC 11.7 k/uL (3.8-10.6)
[2024-03-09 19:48] LABS: HGB 9.1 gm/dL (11.4-16.0)
[2024-03-09 20:03] LABS: Glucose,Whole Blood 167 mg/dL (70-110)
[2024-03-09] MEDS: ASPIRIN 81 MG PO SCH (20:28)
[2024-03-09] MEDS: METOPROLOL TARTRATE 50 MG TAB PO SCH (20:33)
[2024-03-10 06:32] LABS: Glucose,Whole Blood 127 mg/dL (70-110)
--- NOTE | 2024-03-10 09:43 | P.PN ---
Subjective Progress Note Date: 03/09/24 HISTORY OF PRESENT ILLNESS: 83-year-old office patient with active medical history of Paroxysmal atrial fibrillation was on anticoagulation, history of hypertension, hyperlipidemia, stage III chronic kidney disease, chronic diastolic congestive heart failure, who also had recently history of non-ST TX with heart cath showed CAD including left main at 80% stenosis with mild LAD at 60 to 70% stenosis with circumflex 100% stenosis ended up having PCI of the left main and LAD, patient had multiple visits to the emergency department last few months with recurrent A-fib with RVR with similar claimed that she ran out of medication, she stopped taking medication a week ago, and many other. Sadly since her angioplasty and stent placement and the harm of not being on dual antiplatelet agent and her current medications extremely dangerous despite explaining this to the patient it looks like this event keep happening. She was hospitalized again in November for A-fib with RVR along with elevated troponin and anemia. She has been complaining of generalized weakness and fatigue post fall she apparently found in the bathroom developed severe lightheadedness and fell her son found her after work she was down for total hours she hit her head and right chest area has not had anything to eat or drink all day Call 911 patient brought to the emergency department at [facility] CT of the brain without contrast did not show any acute abnormality there is atrophy and microvascular finding. Found to be extremely hypertensive she was giving 1 L of IV saline and continue with 130 cc an hour she remained quite hypotensive she had anemia as well and found to be in A-fib with pulse rate running 110 beats per minutes her blood pressure still 80/60 she was started on vasopressor with norepinephrine was not having any chest pain or tightness at her proBNP was 18,800 with mildly elevated troponin. Her urine shows gross hematuria and has been having apparently problem with burning discomfort in bloody urine. She is on Eliquis for A-fib with RVR so she is on 2 Plavix since her angioplasty and stent early. 2 g of Rocephin was giving culture was done for blood and urine her hemoglobin initially was 8.8 and within few hours dropped down to 6 with hydration patient does not have any visual active GI bleed her BUN 54 creatinine 2.72 much worse than before lactic acid at 3.1. Patient was transferred to the ICU continue hydration, vasopressor, process for blood transfusion to be done. 03/06/2024: Continue to have gross hematuria causing more anemia despite a blood transfusion. Urology seen the patient and believe this is hemorrhagic cystitis aggravated by anticoagulation and they are recommending to irrigate the catheter when necessary still waiting for the urine culture to be finalized in the meanwhile she has remained on Rocephin 2 g daily. She is off vasopressor currently hemoglobin is up to 7.8. 2 unit of packed red cell transfusion. White blood cell is down 7.5 with normal platelet and creatinine improve down to 2.2 with bun of 43. Echocardiogram showed ejection fraction well-preserved with no significant valvular abnormality but mild left ventricular hypertrophy. Patient remain off anticoagulation and was giving 1 dose of Kcentra yesterday still holding on Eliquis and Plavix with cardiology restarted aspirin 81 mg a day. 03/07/2024: Continue to be on 4 L of oxygen to keep her pulse ox above 90 percentile, she had A-fib with RVR with significant worsening congestion of the lung consistent with more heart failure at this point. Started on Cardizem drip 10 mg an hour with her pulse remained above 100, hemoglobin still at 7.4 with normal platelet count creatinine 1.98 still been treated for urine positive for Klebsiella pneumonia with IV antibiotics at this point. Continue to have significant amount of hematuria mostly hemorrhagic cystitis and urology believe he can wait on doing cystoscopy to when she is stable as an outpatient. The kidney function slightly better still seen nephrology discussed that to be acute tubular necrosis nonoliguric secondary to hypotension anemia and sepsis to continue IV continue to treat UTI with no evidence of obstruction. 03/08/2024: Urine culture was positive for Klebsiella pneumonia which patient is responding well to IV Rocephin currently, hemodynamically become more stable, her hematuria has been much better and still having twinges of blood in the catheter. Respiratory failure tejada she is require between 2 and 3 L of O2 to keep her pulse ox above 90 percentile. She is still on Cardizem drip 5 mg an hour to keep pulse under 90 bpm also on Lopressor 50 mg twice a day and still on Eliquis 2.5 mg twice a day. Patient had slight pleural effusion advance diet mobility still significantly decreased and limited to bedrest currently. Nephrology wants her creatinine is down to 2.0 with GFR slightly bit better, continue hydration despite expansion of fluid overload causing more problem at this point. Hoping her creatinine will be down to its baseline before this happened. From cardiology standpoint ejection fraction on echo was well-preserved at 65-70 percentile with no significant valvular heart disease. Cardizem apparently is going to be stopped at some point soon try to monitor her pulse below 90 possible. 03/08/2024: Remain in ICU hemoglobin dropped down again to 6.5 blood transfusion process start again. Respiratory status is slightly better remain on 2 L of O2 at this point. She is still tachycardic running pulse rate around 100 2230 bpm despite being on metoprolol adding Cardizem for better pulse rate control. Her kidney function is better currently with creatinine down to 1.89, urology has no interest in doing cystoscopy at this point he still having a twinge of hematuria but not gross hematuria like before. After transfusions completed patient should be able to leave the ICU today cardiac floor on quality assurance monitor final. REVIEW OF SYSTEMS: CONSTITUTIONAL: Well-developed in no respiratory distress. EYES: No icterus sclerae, no conjunctivitis. EARS, NOSE, MOUTH, THROAT, and FACE: No sore throat, lymphadenopathy, carotid bruits or deformity. RESPIRATORY: Mild shortness of breath and dyspnea with no cough or wheezes. CARDIOVASCULAR: Positive palpitation and A-fib with no angina positive PND and orthopnea. GASTROINTESTINAL: No Abd pain, Nausea or vomiting, no Diarrhea or constipation, No GI Bleed, no distention or masses. GENITOURINARY: Negative for Hematuria or UTI, no kidney stones. INTEGUMENT/BREAST: Negative for any muscular injury with mild osteoarthritis.. HEMATOLOGIC/LYMPHATIC: Negative for bleed or purpura. MUSCULOSKELTAL: Negative for Myalgia or arthralgia. NEURLOGICAL: No LOC, Sz or syncope, blurred vision dizziness or abnormality.. BEHAVIORAL/PSYCH: Negative. ENDOCRINE: Negative. PHYSICAL EXAMINATION: General Appearance: Alert, cooperative, mild distress. Neck HEENT: Supple, no lymphadenopathy, no thyroid enlargement, no carotid bruits. Lungs: Decreased expansion bilaterally with fine rhonchi positive mild rhonchi but no wheezes. Chest Wall: Decreased expansion with deep inspiration no tenderness and no de formity was found on exam, no costochondral pain or discomfort. Heart: Irregular rate and rhythm, S1, S2 positive severe tachycardia positive ejection murmur. Back: Symmetric, no curvature, ROM normal, no CVA tenderness. Abdomen: Soft, non-tender, bowel sounds active all four quadrants, no masses, no organomegaly. Extremities: Trace edema without cyanotic. Pulses: 2+ and symmetric. Skin: Skin color, texture, tugor normal, no rashes or lesions. Neurologic: Alert oriented with slight confusion. Cranial nerves II through XII intact, no motor deficit, no abnormal balance or gait. ASSESSMENT AND PLAN: _Sepsis: Still been treated for Klebsiella pneumonia bacteria culture and urinary tract, patient still on Rocephin responding well to it. _Severe hematuria, most likely from hemorrhagic cystitis, bleeding is better currently and no more gross hematuria but still losing significant amount of blood. _A-fib with RVR pulse rates not well-controlled remain on metoprolol and Cardizem currently. _Acute kidney injury on chronic kidney disease: Kidney function is much better continue hydration continue volume replacement. _Acute blood loss anemia: With drop in hemoglobin again will require transfusion today. _Acute systolic congestive heart failure with known coronary artery disease patient is still quite symptomatic will benefit from continued diuretic specially if we can slow down on too much IV fluid. _Possible non-ST TX with elevated troponin's, slightly abnormal EKG known history of myocardial infarction, patient be seen cardiology CK troponin x 3 will be done. _Atherosclerotic heart disease: Post PCI and stent placement from October has been seeing cardiology she needs more assurance probably family need to be more involved making sure she is taking her medication on time and that she does not run out of medication. Consult cardiology holding off on antiplatelet agent for now because of the bleed. Apparently was started on 1 baby aspirin for now. _Type 2 diabetes: Blood sugar is much better so far continue coverage continue Jardiance as well. _Hyperlipidemia: Continue atorvastatin 20 mg a day. _Hypothyroidism: Continue levothyroxine 25 mcg daily. _GI prophylaxis: Will be on pantoprazole 40 mg daily. CODE STATUS: Full code. Discussion: Hemoglobin dropped down to will require transfusion, patient pulse rate still elevated require more Cardizem continue metoprolol, still off anticoagulation at this point. Hemodynamically little bit more stable and shortness of breath has improved patient hopefully will be able to leave the ICU today. Objective - Vital Signs Vital signs: Vital Signs Temp 97.6 F 03/09/24 00:00 Pulse 95 03/09/24 05:00 Resp 20 03/09/24 05:00 BP 97/60 03/09/24 05:00 Pulse Ox 100 03/09/24 05:00 FiO2 Intake & Output 03/08/24 03/08/24 03/09/24 06:59 18:59 06:59 Intake Total 1500 952 440 Output Total 800 575 610 Balance 700 377 -170 Weight 67 kg Intake: IV 330 440 0.9 KVO 100 Sodium Chloride 0.9% 1, 80 440 000 ml @ 40 mls/hr IV . Q24H [facility] Rx#:[id number] Sodium Ferric Gluconat- 100 Sucrose 125 mg In Sodium Chloride 0.9% 100 ml @ 100 mls/hr IVPB DAILY [facility] Rx#:[id number] cefTRIAXone 2 gm In 50 Sodium Chloride 0.9% 50 ml @ 100 mls/hr IVPB Q24HR [facility] Rx#:[id number] Oral 1500 622 Output: Urine 800 575 610 Other: Voiding Method Indwelling Catheter Indwelling Catheter Indwelling Catheter # Bowel Movements 1 1 - Labs CBC & Chem 7: 03/09/24 19:07 03/09/24 03:52 Labs: Abnormal Lab Results - Last 24 Hours (Table) 03/08/24 03/08/24 03/09/24 Range/Units 19:01 20:44 03:52 RBC 2.70 L (3.80-5.40) m/uL Hgb 7.4 L (11.4-16.0) gm/dL Hct 23.1 L (34.0-46.0) % RDW 19.1 H (11.5-15.5) % Sodium 133 L (137-145) mmol/L Chloride 111 H (98-107) mmol/L Carbon Dioxide 21 L (22-30) mmol/L BUN 31 H (7-17) mg/dL Creatinine 1.89 H (0.52-1.04) mg/dL Glucose 106 H (74-99) mg/dL POC Glucose (mg/dL) 146 H (70-110) mg/dL Calcium 7.6 L (8.4-10.2) mg/dL
--- NOTE | 2024-03-10 09:55 | P.PN ---
Subjective Progress Note Date: 03/10/24 The patient is in the hospital with cardiac issues. She was found to have a hemorrhagic cystitis. SHe has been treated with antibiotics. Her urine eventually cleared only to have the hematuria return upon resumption of the eliquis and plavix. Her most recent hgb was 9.1 Objective - Vital Signs Vital signs: Vital Signs Temp 97.4 F L 03/10/24 03:05 Pulse 89 03/10/24 03:05 Resp 18 03/10/24 03:05 BP 102/62 03/10/24 03:05 Pulse Ox 94 L 03/10/24 03:05 FiO2 Intake & Output 03/09/24 03/10/24 03/10/24 18:59 06:59 18:59 Intake Total 1116 Output Total 870 1225 Balance 246 -1225 Weight 68.7 kg Intake: IV 210 0.9 KVO 40 Sodium Chloride 0.9% 1, 120 000 ml @ 40 mls/hr IV . Q24H [facility] Rx#:[id number] cefTRIAXone 2 gm In 50 Sodium Chloride 0.9% 50 ml @ 100 mls/hr IVPB Q24HR [facility] Rx#:[id number] Oral 622 Blood Product 284 Rc Pheresis As-3 Unit 284 [id number] Output: Urine 870 1225 Other: Voiding Method Indwelling Catheter Indwelling Catheter - Labs CBC & Chem 7: 03/09/24 19:07 03/09/24 03:52 Labs: Abnormal Lab Results - Last 24 Hours (Table) 03/09/24 03/09/24 03/09/24 Range/Units 05:45 19:07 20:02 WBC 11.7 H (3.8-10.6) k/uL RBC 3.33 L (3.80-5.40) m/uL Hgb 9.1 L D (11.4-16.0) gm/dL Hct 28.8 L (34.0-46.0) % RDW 18.9 H (11.5-15.5) % POC Glucose (mg/dL) 167 H (70-110) mg/dL Crossmatch See Detail 03/10/24 Range/Units 06:30 WBC (3.8-10.6) k/uL RBC (3.80-5.40) m/uL Hgb (11.4-16.0) gm/dL Hct (34.0-46.0) % RDW (11.5-15.5) % POC Glucose (mg/dL) 127 H (70-110) mg/dL Crossmatch Microbiology - Last 24 Hours (Table) 03/04/24 19:20 Blood Culture - Final Blood 03/04/24 19:05 Blood Culture - Final Blood Assessment and Plan Assessment: Impression: hemorrhagic cystitis aggravated by anticoagulation. Old blood in the catheter. Plan: The patient will have to stay of the anticoagulation for a while until the inflammation of her bladder subsides otherwise she will continue to have the bleeding.the patient will need cystoscopy at some point in time. Soon as the blood clears I can do cystoscopy at the bedside. We will follow.
[2024-03-10 11:27] LABS: Anisocytosis Slight; HCT 24.9 % (34.0-46.0); HGB 7.9 gm/dL (11.4-16.0); Hypochromasia Slight; MCH 27.6 pg (25.0-35.0); MCHC 31.7 g/dL (31.0-37.0); MCV 86.9 fL (80.0-100.0); Mean Platelet Volume 7.3; Platelet Count 300 k/uL (150-450); Poikilocytosis Moderate; RBC 2.87 m/uL (3.80-5.40); RDW 19.6 % (11.5-15.5); WBC 7.3 k/uL (3.8-10.6)
[2024-03-10 11:54] LABS: ALT 12 U/L (4-34); AST 22 U/L (14-36); African American GFR (CKD) 29 (>60 ml/min/1.73 sqM); Albumin 2.1 g/dL (3.5-5.0); Alkaline Phosphatase 78 U/L (38-126); Anion Gap 4 mmol/L; Blood Urea Nitrogen 30 mg/dL (7-17); Calcium 7.5 mg/dL (8.4-10.2); Carbon Dioxide 20 mmol/L (22-30); Chloride 110 mmol/L (98-107); Glucose 115 mg/dL (74-99); Non-African American GFR(CKD) 25 (>60 ml/min/1.73 sqM); Potassium 3.7 mmol/L (3.5-5.1); Sodium 134 mmol/L (137-145); Total Bilirubin 0.3 mg/dL (0.2-1.3); Total Protein 4.9 g/dL (6.3-8.2)
--- NOTE | 2024-03-10 13:37 | P.PN ---
Subjective Progress Note Date: 03/10/24 83-year-old office patient with active medical history of Paroxysmal atrial fibrillation was on anticoagulation, history of hypertension, hyperlipidemia, stage III chronic kidney disease, chronic diastolic congestive heart failure, who also had recently history of non-ST CO with heart cath showed CAD including left main at 80% stenosis with mild LAD at 60 to 70% stenosis with circumflex 100% stenosis ended up having PCI of the left main and LAD, patient had multiple visits to the emergency department last few months with recurrent A-fib with RVR with similar claimed that she ran out of medication, she stopped taking medication a week ago, and many other. Sadly since her angioplasty and stent placement and the harm of not being on dual antiplatelet agent and her current medications extremely dangerous despite explaining this to the patient it looks like this event keep happening. She was hospitalized again in November for A-fib with RVR along with elevated troponin and anemia. She has been complaining of generalized weakness and fatigue post fall she apparently found in the bathroom developed severe lightheadedness and fell her son found her after work she was down for total hours she hit her head and right chest area has not had anything to eat or drink all day Call 911 patient brought to the emergency department at [facility] CT of the brain without contrast did not show any acute abnormality there is atrophy and microvascular finding. Found to be extremely hypertensive she was giving 1 L of IV saline and continue with 130 cc an hour she remained quite hypotensive she had anemia as well and found to be in A-fib with pulse rate running 110 beats per minutes her blood pressure still 80/60 she was started on vasopressor with norepinephrine was not having any chest pain or tightness at her proBNP was 18,800 with mildly elevated troponin. Her urine shows gross hematuria and has been having apparently problem with burning discomfort in bloody urine. She is on Eliquis for A-fib with RVR so she is on 2 Plavix since her angioplasty and stent early. 2 g of Rocephin was giving culture was done for blood and urine her hemoglobin initially was 8.8 and within few hours dropped down to 6 with hydration patient does not have any visual active GI bleed her BUN 54 creatinine 2.72 much worse than before lactic acid at 3.1. Patient was transferred to the ICU continue hydration, vasopressor, process for blood transfusion to be done. 03/06/2024: Continue to have gross hematuria causing more anemia despite a blood transfusion. Urology seen the patient and believe this is hemorrhagic cystitis aggravated by anticoagulation and they are recommending to irrigate the catheter when necessary still waiting for the urine culture to be finalized in the meanwhile she has remained on Rocephin 2 g daily. She is off vasopressor currently hemoglobin is up to 7.8. 2 unit of packed red cell transfusion. White blood cell is down 7.5 with normal platelet and creatinine improve down to 2.2 with bun of 43. Echocardiogram showed ejection fraction well-preserved with no significant valvular abnormality but mild left ventricular hypertrophy. Patient remain off anticoagulation and was giving 1 dose of Kcentra yesterday still holding on Eliquis and Plavix with cardiology restarted aspirin 81 mg a day. 03/07/2024: Continue to be on 4 L of oxygen to keep her pulse ox above 90 percentile, she had A-fib with RVR with significant worsening congestion of the lung consistent with more heart failure at this point. Started on Cardizem drip 10 mg an hour with her pulse remained above 100, hemoglobin still at 7.4 with normal platelet count creatinine 1.98 still been treated for urine positive for Klebsiella pneumonia with IV antibiotics at this point. Continue to have significant amount of hematuria mostly hemorrhagic cystitis and urology believe he can wait on doing cystoscopy to when she is stable as an outpatient. The kidney function slightly better still seen nephrology discussed that to be acute tubular necrosis nonoliguric secondary to hypotension anemia and sepsis to continue IV continue to treat UTI with no evidence of obstruction. 03/08/2024: Urine culture was positive for Klebsiella pneumonia which patient is responding well to IV Rocephin currently, hemodynamically become more stable, her hematuria has been much better and still having twinges of blood in the catheter. Respiratory failure tej[place] she is require between 2 and 3 L of O2 to keep her pulse ox above 90 percentile. She is still on Cardizem drip 5 mg an hour to keep pulse under 90 bpm also on Lopressor 50 mg twice a day and still on Eliquis 2.5 mg twice a day. Patient had slight pleural effusion advance diet mobility still significantly decreased and limited to bedrest currently. Nephrology wants her creatinine is down to 2.0 with GFR slightly bit better, continue hydration despite expansion of fluid overload causing more problem at this point. Hoping her creatinine will be down to its baseline before this happened. From cardiology standpoint ejection fraction on echo was well-preserved at 65-70 percentile with no significant valvular heart disease. Cardizem apparently is going to be stopped at some point soon try to monitor her pulse below 90 possible. 03/08/2024: Remain in ICU hemoglobin dropped down again to 6.5 blood transfusion process start again. Respiratory status is slightly better remain on 2 L of O2 at this point. She is still tachycardic running pulse rate around 100 2230 bpm despite being on metoprolol adding Cardizem for better pulse rate control. Her kidney function is better currently with creatinine down to 1.89, urology has no interest in doing cystoscopy at this point he still having a twinge of hematuria but not gross hematuria like before. After transfusions completed patient should be able to leave the ICU today cardiac floor on electronic device monitor. 03/10. Patient seen and examined. Hemoglobin this morning is 7.9. Denies any belly pain. States she feels better. REVIEW OF SYSTEMS: CONSTITUTIONAL: No fever, no malaise,. CARDIOVASCULAR: No chest pain, no palpitations, no syncope. PULMONARY: No shortness of breath, no cough, GASTROINTESTINAL: No diarrhea, no nausea, no vomiting, no abdominal pain. NEUROLOGICAL: No headaches, no weakness, PHYSICAL EXAMINATION: GENERAL: The patient is alert and oriented x3, not in any acute distress. Well developed, well nourished. HEENT: Pupils are round and equally reacting to light. EOMI. No scleral icterus. No conjunctival pallor. Normocephalic, atraumatic. No pharyngeal erythema. No thyromegaly. CARDIOVASCULAR: S1 and S2 present. No murmurs, rubs, or gallops. PULMONARY: Chest is clear to auscultation, no wheezing or crackles. ABDOMEN: Soft, nontender, nondistended, normoactive bowel sounds. No palpable or ganomegaly. MUSCULOSKELETAL: No joint swelling or deformity. EXTREMITIES: No cyanosis, clubbing, or pedal edema. NEUROLOGICAL: Gross neurological examination did not reveal any focal deficits. SKIN: No rashes. Assessment and plan _Sepsis UTI Monitor vital signs monitor CBC, monitor CMP, continue IV Rocephin. ID following _Severe hematuria, most likely from hemorrhagic cystitis, urology following recommended keeping off anticoagulation and cystoscopy _A-fib with RVR pulse rates not well-controlled remain on metoprolol and Cardizem currently. _Acute kidney injury on chronic kidney disease: Monitor renal function _Acute blood loss anemia: Monitor CBC _Acute systolic congestive heart failure with known coronary artery disease patient is still quite symptomatic will benefit from continued diuretic specially if we can slow down on too much IV fluid. _Possible non-ST CO with elevated troponin's, slightly abnormal EKG known history of myocardial infarction, patient be seen cardiology CK troponin x 3 will be done. Patient was on aspirin, Plavix and Eliquis, because of hematuria Plavix and Eliquis has been held _Atherosclerotic heart disease: Post PCI and stent placement from October has been seeing cardiology. Continue current medical treatment _Type 2 diabetes: Blood sugar is much better so far continue coverage continue Jardiance as well. _Hyperlipidemia: Continue atorvastatin 20 mg a day. _Hypothyroidism: Continue levothyroxine 25 mcg daily. _GI prophylaxis: Will be on pantoprazole 40 mg daily. Labs and medication were reviewed.. Continue same treatment. Continue with symptomatic treatment. Resume home medication. Monitor labs and vitals. DVT and GI prophylaxis. Further recommendations as per clinical course of the patient Dictation was produced using [employer] dictation software. please excuse any gramma tical, word or spelling errors. Objective - Vital Signs Vital signs: Vital Signs Temp 97.4 F L 03/10/24 03:05 Pulse 89 03/10/24 03:05 Resp 18 03/10/24 03:05 BP 102/62 03/10/24 03:05 Pulse Ox 94 L 03/10/24 03:05 FiO2 Intake & Output 03/09/24 03/10/24 03/10/24 18:59 06:59 18:59 Intake Total 1116 Output Total 870 1225 Balance 246 -1225 Weight 68.7 kg Intake: IV 210 0.9 KVO 40 Sodium Chloride 0.9% 1, 120 000 ml @ 40 mls/hr IV . Q24H [facility] Rx#:[id number] cefTRIAXone 2 gm In 50 Sodium Chloride 0.9% 50 ml @ 100 mls/hr IVPB Q24HR [facility] Rx#:[id number] Oral 622 Blood Product 284 Rc Pheresis As-3 Unit 284 [id number] Output: Urine 870 1225 Other: Voiding Method Indwelling Catheter Indwelling Catheter - Labs CBC & Chem 7: 03/10/24 10:25 03/10/24 10:25 Labs: Abnormal Lab Results - Last 24 Hours (Table) 03/09/24 03/09/24 03/09/24 Range/Units 05:45 19:07 20:02 WBC 11.7 H (3.8-10.6) k/uL RBC 3.33 L (3.80-5.40) m/uL Hgb 9.1 L D (11.4-16.0) gm/dL Hct 28.8 L (34.0-46.0) % RDW 18.9 H (11.5-15.5) % POC Glucose (mg/dL) 167 H (70-110) mg/dL Crossmatch See Detail 03/10/24 Range/Units 06:30 WBC (3.8-10.6) k/uL RBC (3.80-5.40) m/uL Hgb (11.4-16.0) gm/dL Hct (34.0-46.0) % RDW (11.5-15.5) % POC Glucose (mg/dL) 127 H (70-110) mg/dL Crossmatch Microbiology - Last 24 Hours (Table) 03/04/24 19:20 Blood Culture - Final Blood 03/04/24 19:05 Blood Culture - Final Blood
--- NOTE | 2024-03-10 14:00 | P.PN ---
Subjective Progress Note Date: 03/08/24 Principal diagnosis: Reason for follow-up is complicated UTI Patient is a 83-year-old male for diabetes mellitus hypertension atrial fibrillation brought to the hospital for evaluation of generalized weakness fatigue lightheadedness low blood pressure patient noticed to have significant hematuria and concern for complicated UTI. On today's evaluation that is 03/08/2024, patient has been afebrile, patient is breathing comfortably and is currently on 2 L nasal cannula oxygen, patient denies having any significant cough no chest pain shortness of breath, patient denies nausea vomiting or diarrhea and no abdominal pain Patient white count is 9.3, creatinine is 2.0 Objective - Vital Signs Vital signs: Vital Signs Temp 97.9 F 03/08/24 08:00 Pulse 104 H 03/08/24 09:30 Resp 14 03/08/24 09:30 BP 89/57 03/08/24 09:30 Pulse Ox 98 03/08/24 08:00 FiO2 Intake & Output 03/07/24 03/08/24 03/08/24 18:59 06:59 18:59 Intake Total 1225 1500 Output Total 1450 800 50 Balance -225 700 -50 Weight 67 kg Intake: Intake, IV Titration 125 Amount Diltiazem 125 mg In 125 Sodium Chloride 0.9% 100 ml @ 10 MG/HR 10 mls/hr IV .[id number] [facility] Rx#: [id number] Oral 1100 1500 Output: Urine 1450 800 50 Other: Voiding Method Indwelling Catheter Indwelling Catheter # Bowel Movements 1 1 - Exam GENERAL DESCRIPTION: An elderly female lying in bed in no distress RESPIRATORY SYSTEM: Unlabored breathing , decreased breath sounds at bases HEART: S1 S2 regular rate and rhythm , ABDOMEN: Soft , no tenderness Exam completed with help of RANGE MANAGER - Labs CBC & Chem 7: 03/10/24 10:25 03/10/24 10:25 Labs: Abnormal Lab Results - Last 24 Hours (Table) 03/08/24 03/08/24 Range/Units 04:07 04:07 RBC 2.84 L (3.80-5.40) m/uL Hgb 7.5 L (11.4-16.0) gm/dL Hct 24.1 L (34.0-46.0) % RDW 18.8 H (11.5-15.5) % Sodium 134 L (137-145) mmol/L Potassium 3.0 L (3.5-5.1) mmol/L Chloride 110 H (98-107) mmol/L BUN 30 H (7-17) mg/dL Creatinine 2.00 H (0.52-1.04) mg/dL Calcium 7.6 L (8.4-10.2) mg/dL Microbiology - Last 24 Hours (Table) 03/04/24 19:20 Blood Culture - Preliminary Blood 03/04/24 19:05 Blood Culture - Preliminary Blood Assessment and Plan (1) UTI (urinary tract infection) Current Visit: Yes Status: Acute Code(s): N39.0 - URINARY TRACT INFECTION, SITE NOT SPECIFIED SNOMED Code(s): 17690015 Plan: This is a telehealth visit 1patient presented to hospital with weakness not feeling well patient was hypotensive noticed to have hematuria with abnormal renal ultrasound concerning for mass versus clot in the urinary bladder did have a positive UA concerning for symptomatic urinary tract infection. 2patient with renal insufficiency and high risk of nephrotoxicity. 3patient urine has been finalized with Klebsiella that is sensitive to ceftriaxone 4- patient to continue with Rocephin 2 g daily and monitor clinical course rj doray Dictation was produced using [employer] dictation software. please excuse any grammatical, word or spelling errors. Time with Patient: Less than 30
--- NOTE | 2024-03-10 14:01 | P.PN ---
Subjective Progress Note Date: 03/10/24 Principal diagnosis: Reason for follow-up is complicated UTI Patient is a 83-year-old male for diabetes mellitus hypertension atrial fibrillation brought to the hospital for evaluation of generalized weakness fatigue lightheadedness low blood pressure patient noticed to have significant hematuria and concern for complicated UTI. On today's evaluation that is 03/10/2024,the patient denies any fever or any chills, patient is breathing comfortably on room air, the patient denies chest pain shortness of breath patient did have a cough but not bring up any sputum, patient denies abdominal pain, no nausea vomiting or diarrhea. Patient still concerned about having blood in the urine Patient white count normalized to 7.3, creatinine is 1.85 urine with Klebsiella Objective - Vital Signs Vital signs: Vital Signs Temp 97.3 F L 03/10/24 08:05 Pulse 80 03/10/24 11:50 Resp 16 03/10/24 11:50 BP 107/59 03/10/24 11:50 Pulse Ox 99 03/10/24 11:50 FiO2 Intake & Output 03/09/24 03/10/24 03/10/24 18:59 06:59 18:59 Intake Total 1116 Output Total 870 1225 Balance 246 -1225 Weight 68.7 kg Intake: IV 210 0.9 KVO 40 Sodium Chloride 0.9% 1, 120 000 ml @ 40 mls/hr IV . Q24H [facility] Rx#:[id number] cefTRIAXone 2 gm In 50 Sodium Chloride 0.9% 50 ml @ 100 mls/hr IVPB Q24HR [facility] Rx#:[id number] Oral 622 Blood Product 284 Rc Pheresis As-3 Unit 284 [id number] Output: Urine 870 1225 Other: Voiding Method Indwelling Catheter Indwelling Catheter Indwelling Catheter - Exam GENERAL DESCRIPTION: An elderly female lying in bed in no distress RESPIRATORY SYSTEM: Unlabored breathing , decreased breath sounds at bases HEART: S1 S2 regular rate and rhythm , ABDOMEN: Soft , no tenderness - Labs CBC & Chem 7: 03/10/24 10:25 03/10/24 10:25 Labs: Abnormal Lab Results - Last 24 Hours (Table) 03/09/24 03/09/24 03/10/24 Range/Units 19:07 20:02 06:30 WBC 11.7 H (3.8-10.6) k/uL RBC 3.33 L (3.80-5.40) m/uL Hgb 9.1 L D (11.4-16.0) gm/dL Hct 28.8 L (34.0-46.0) % RDW 18.9 H (11.5-15.5) % Sodium (137-145) mmol/L Chloride (98-107) mmol/L Carbon Dioxide (22-30) mmol/L BUN (7-17) mg/dL Creatinine (0.52-1.04) mg/dL Glucose (74-99) mg/dL POC Glucose (mg/dL) 167 H 127 H (70-110) mg/dL Calcium (8.4-10.2) mg/dL Total Protein (6.3-8.2) g/dL Albumin (3.5-5.0) g/dL 03/10/24 03/10/24 Range/Units 10:25 10:25 WBC (3.8-10.6) k/uL RBC 2.87 L (3.80-5.40) m/uL Hgb 7.9 L (11.4-16.0) gm/dL Hct 24.9 L (34.0-46.0) % RDW 19.6 H (11.5-15.5) % Sodium 134 L (137-145) mmol/L Chloride 110 H (98-107) mmol/L Carbon Dioxide 20 L (22-30) mmol/L BUN 30 H (7-17) mg/dL Creatinine 1.85 H (0.52-1.04) mg/dL Glucose 115 H (74-99) mg/dL POC Glucose (mg/dL) (70-110) mg/dL Calcium 7.5 L (8.4-10.2) mg/dL Total Protein 4.9 L (6.3-8.2) g/dL Albumin 2.1 L (3.5-5.0) g/dL Microbiology - Last 24 Hours (Table) 03/04/24 19:20 Blood Culture - Final Blood 03/04/24 19:05 Blood Culture - Final Blood Assessment and Plan (1) UTI (urinary tract infection) Current Visit: Yes Status: Acute Code(s): N39.0 - URINARY TRACT INFECTION, SITE NOT SPECIFIED SNOMED Code(s): 09563071 Plan: 1patient presented to hospital with weakness not feeling well patient was hypotensive noticed to have hematuria with abnormal renal ultrasound concerning for mass versus clot in the urinary bladder did have a positive UA concerning for symptomatic urinary tract infection. 2patient with renal insufficiency and high risk of nephrotoxicity. 3patient urine has been finalized with Klebsiella that is sensitive to ceftriaxone 4- patient is afebrile and the patient white count has normalized we will give the patient Rocephin while inpatient and continue supportive care Dictation was produced using [employer] dictation software. please excuse any grammatical, word or spelling errors. Time with Patient: Less than 30
--- NOTE | 2024-03-10 16:15 | P.PN ---
Subjective Progress Note Date: 03/10/24 HISTORY OF PRESENTING ILLNESS 83-year-old with past medical history of paroxysmal atrial fibrillation, hypertension, dyslipidemia, CKD, chronic diastolic heart failure, last NSTEMI in October 2023 requiring heart cath showing 80% left main stenosis and mid LAD 60 to 70% stenosis with DEVELOPMENT ADMINISTRATOR of LCx. She underwent PCI of left main into LAD. Patient has also had multiple hospital visits with A-fib RVR's past. There is also concern of noncompliance to medications. It is unclear if patient has been taking dual antiplatelet therapy since her PCI. This time patient presented to the hospital because of generalized weakness and fatigue and a fall. Apparently patient was found in the bathroom. Patient reported that she became severely lightheaded and could not get up from the sitting position in the bathroom commode. She was down for few hours before her son found her and called the EMS. On admission she was hypotensive and dehydrated along with atrial fibrillation with RVR. Her blood pressure was 80 over 60 mmHg. ECG showed atrial fibrillation with heart rate in the beats were minute, incomplete left bundle branch block with diffuse ST depressions Her labs showed NT proBNP of 18,000, troponin of 0.067, repeat 0.72. Creatinine 2.49, baseline creatinine 1.6 Chest x-ray did not show significant pulm congestion. Pelvic CT showed hypodensity seen in the urinary bladder may reflect blood byproducts. March 06, 2024 Patient continues to have hematuria. It appears slightly better as compared to yesterday. Appears to have 20 to 30 cc/h urine output with slightly improved creatinine to 2.2 today. Hemoglobin is 7.8, platelet 351. She is s/p 2 units of blood transfusion 03/05/2024. Her echocardiogram showed an EF of 65 to 70%, small LV cavity, no significant valvular disease. On exam she reports having diarrhea. Reports feeling weak. Appears slightly d ehydrated getting IV fluids. 03/07/2024 BP 92/62, heart rate 112 bpm, atrial fibrillation with RVR Hemoglobin 7.4. Yesterday it was 7.8. On admission 6.8. She is s/p unit blood transfusion since admission. Renal function has continued to improve, creatinine is 1.9 today. On admission 2.9. She has good urine output. Her hematuria has resolved. 03/08/2024 Patient continues to have significant diarrhea. Hemoglobin is stable. No further hematuria. Appropriate urine output with stable kidney function creatinine at 2 today. Yesterday 119 Patient's diarrhea is better after 1 dose of Imodium. Patient's hemoglobin is dropped to 6.5. Patient started having hematuria again. Will stop her Eliquis and Plavix. Will resume her on aspirin because of recent PCI. March 10, 2024 Blood pressure 107/59, heart rate 80 bpm, relation rate controlled Patient's diarrhea has got better. She still has bright red urine concerning of hemorrhagic cystitis. She had 1 unit of blood transfusion done yesterday. In total she has got 3 units of blood transfusion since admission. PHYSICAL EXAMINATION Head: Normocephalic. Eyes: Sclerae nonicteric. Neck: Brisk carotid upstroke, no jugular venous distention. Lungs: Poor inspiratory effort. Heart: irregular pulse, S1-S2, , 2/6 systolic murmur . Abdomen: Soft nontender, positive bowel sounds. Extremities: 1+ edema in leg , non pitting Neuro: no focal deficits. Detailed neuro exam was not performed. ASSESSMENT Elevated troponin, likely type II NSTEMI in setting of BOLA, sepsis and anemia Acute on chronic systolic heart failure, CAD s/p PCI in October 2023. S/p PCI to left main into LAD 4 x 15 mm PRANAY Paroxysmal Atrial fibrillation. Currently Afib, Acute blood loss anemia due to hematuria s/p 2 U PRBC Severe sepsis BOLA on CKD, BOLA resolved. Hyperlipidemia Hypothyroidism Medication non compliance Echo July 2023: EF 55%, severe LVH, moderate MR, Echo February 2024, EF 65%, hyperdynamic LV, moderate LVH, no significant wall motion abnormality. PLAN Patient starting having hematuria again on Eliquis and Plavix. This was done in view of her atrial fibrillation and recent PCI. Will stop her Eliquis and Plavix. Will start her on aspirin 81 mg Rate controlled while on metoprolol 100 mg twice daily. Will use midodrine as needed if SBP is less than 90 mmHg and is persistently low. Agree with placing iron stores with IV iron IV antibiotics Monitor renal function electrolytes Transfuse blood if hemoglobin less than 7. Appreciate urology recommendations on hematuria, and recommendations when to resume anticoagulation Objective - Vital Signs Vital signs: Vital Signs Temp 97.3 F L 03/10/24 08:05 Pulse 80 03/10/24 14:30 Resp 16 03/10/24 14:30 BP 107/59 03/10/24 11:50 Pulse Ox 99 03/10/24 11:50 FiO2 Intake & Output 03/09/24 03/10/24 03/10/24 18:59 06:59 18:59 Intake Total 1116 Output Total 870 1225 Balance 246 -1225 Weight 68.7 kg Intake: IV 210 0.9 KVO 40 Sodium Chloride 0.9% 1, 120 000 ml @ 40 mls/hr IV . Q24H [facility] Rx#:[id number] cefTRIAXone 2 gm In 50 Sodium Chloride 0.9% 50 ml @ 100 mls/hr IVPB Q24HR [facility] Rx#:[id number] Oral 622 Blood Product 284 Rc Pheresis As-3 Unit 284 [id number] Output: Urine 870 1225 Other: Voiding Method Indwelling Catheter Indwelling Catheter Indwelling Catheter - Labs CBC & Chem 7: 03/10/24 10:25 03/10/24 10:25 Labs: Abnormal Lab Results - Last 24 Hours (Table) 03/09/24 03/09/24 03/10/24 Range/Units 19:07 20:02 06:30 WBC 11.7 H (3.8-10.6) k/uL RBC 3.33 L (3.80-5.40) m/uL Hgb 9.1 L D (11.4-16.0) gm/dL Hct 28.8 L (34.0-46.0) % RDW 18.9 H (11.5-15.5) % Sodium (137-145) mmol/L Chloride (98-107) mmol/L Carbon Dioxide (22-30) mmol/L BUN (7-17) mg/dL Creatinine (0.52-1.04) mg/dL Glucose (74-99) mg/dL POC Glucose (mg/dL) 167 H 127 H (70-110) mg/dL Calcium (8.4-10.2) mg/dL Total Protein (6.3-8.2) g/dL Albumin (3.5-5.0) g/dL 03/10/24 03/10/24 Range/Units 10:25 10:25 WBC (3.8-10.6) k/uL RBC 2.87 L (3.80-5.40) m/uL Hgb 7.9 L (11.4-16.0) gm/dL Hct 24.9 L (34.0-46.0) % RDW 19.6 H (11.5-15.5) % Sodium 134 L (137-145) mmol/L Chloride 110 H (98-107) mmol/L Carbon Dioxide 20 L (22-30) mmol/L BUN 30 H (7-17) mg/dL Creatinine 1.85 H (0.52-1.04) mg/dL Glucose 115 H (74-99) mg/dL POC Glucose (mg/dL) (70-110) mg/dL Calcium 7.5 L (8.4-10.2) mg/dL Total Protein 4.9 L (6.3-8.2) g/dL Albumin 2.1 L (3.5-5.0) g/dL Microbiology - Last 24 Hours (Table) 03/04/24 19:20 Blood Culture - Final Blood 03/04/24 19:05 Blood Culture - Final Blood
--- NOTE | 2024-03-10 19:15 | P.PN ---
Subjective Progress Note Date: 03/10/24 Patient is a 83-year-old white female with past medical history significant for coronary artery disease with recent stent, valvular heart disease, atrial fibrillation anticoagulated on Eliquis, hypertension, diabetes mellitus, uterine cancer. Of note, patient had a recent hospitalization September, for non-ST elevation SD and received a stent to the LAD. Patient presented to emergency room yesterday afternoon with a chief complaint of generalized weakness and fatigue and she had a fall. She was apparently in the bathroom where she went to get up and became lightheaded and fell. She states that her son was at work at this time, he found her when he came home. She was on the ground for a co uple hours. States that she did hit her head and right chest. Did not have anything to eat or drink all day. Her son was the one that called 911. She states that over the last several days she has been generally weak. CT of the brain without contrast did not show any acute intracranial abnormality. There is atrophy and chronic microvessel ischemic white matter changes. While being evaluated by the ER room physician, she was noted to be hypotensive. She has been fluid resuscitated with 1 L of normal saline bolus, and currently has normal saline infusing at 130 MLS per hour. She does take midodrine outpatient. After the 1 L normal saline bolus, patient remained hypotensive, and my sup ervising physician recommended ICU monitoring. Patient is currently in the emergency department, room 7. She appears fairly comfortable. She is on room air. SpO2 100%. Blood pressure currently 85/61 mmHg. Heart rhythm appears to be atrial fibrillation with a rate of 118 bpm. Norepinephrine has not been started yet. She denies any radiating chest pain, there is some localized reproducible right-sided chest pain where she impacted on fall. Denies any heart palpitations or syncopal events. She has a pure wick suction catheter, there is presumed gross hematuria in the canister. She is not able to tell me how long this has been occurring for. She denies kidney stones. She is on Eliquis outpatient. Patient does admit to some continuous pelvic discomfort/pressure. No flank pain. No burning with urination, no increased urinary frequency. She is chronically incontinent to urine. She has noted blood clots in her underwear. She has remote history of uterine cancer. She does not think this is vaginal bleeding. She received a dose of Rocephin in the emergency room for possible UTI. Urinalysis showing hina blood and WBCs. Culture is pending. She is afebrile. CBC without leukocytosis. Hemoglobin 8.8 g/dL, hematocrit 28.7. Platelets 471. CMP on arrival: Sodium 130, potassium 3.3, chloride 98, serum bicarb 23, BUN 54, creatinine 2.72, glucose 275. Lactic acid originally 3.1 and down to 1.7. LFTs not elevated. EKG done on arrival showed atrial fibrillation with a rate of [address] depressions in the lateral leads. Troponin less than 0.012. NT proBNP 19,900. Chest x-ray shows stable cardiac silhouette, no pulmonary vascular congestion or edema, no acute infiltrates, no pleural effusions or pneumothoraces. She is going to be monitored in the intensive care unit, and transferred once bed available. On 03/06/2024, the patient continues to have hematuria although this has somewhat improved compared to yesterday. Urine output is still bloody and the intensity of the blood is less compared to yesterday. Noted the patient drop in hemoglobin yesterday down to 6.8 and she was given additional unit of packed RBC making a total of 2 units of packed RBC and hemoglobin is currently up to 7.8. She remains on normal saline at the rate of 130 cc an hour. The norepinephrine infusion was discontinued around 5:00 this morning. She is in atrial fibrilla tion. She is slightly tachycardic. Urine culture is showing gram-negative bacillus and the patient is currently on IV Rocephin. The WBC count is at 7.5, hemoglobin 7.8 and a platelet count of 351. Creatinine is improving is currently down to 2.2 again of 43, serum bicarb is at 17 with a sodium level of 135 and a potassium level of 3.4 and this needs to be replaced. The cortisol level is at 19.2. This was a random cortisol level. Echocardiogram was also done on 03/05/2024 revealing a ejection fraction of 65 to 70%, small LV cavity, mildly increased septal wall thickening, mild increase in the posterior wall thickening, no significant valvular abnormalities noted. Mild LVH. Noted the p atient was given Kcentra yesterday. The patient is currently off anticoagulation. 03/07/2024, the patient is being seen for a follow-up. Patient is doing well. The patient is not having any active hematuria at this point in time. The hematuria has subsided. She is currently on 4 L of oxygen by nasal cannula. She has been off norepinephrine since 5 AM this morning. IV fluids are currently at KVO. The patient however developed atrial fibrillation with rapid ventricular response 6 PM yesterday. Her lungs are also congested. Based on that, she was given a dose of Lasix in the morning. She is currently on a Cardizem drip running at 10 mg an hour. She remains calm and comfortable. No significant chest pain. The white count of 10.6 with a hemoglobin 7.4 and a platelet count of 345. BUN 33 with a creatinine of 1.98 and the sodium is at 137. Urine culture is positive for Klebsiella pneumonia. 03/08/2024, the patient is not having any hematuria. She was diagnosed having a Klebsiella pneumoniae urine tract infection with secondary hematuria and hematuria has subsided. The patient remains on IV Rocephin. Hemodynamically stable on no pressors. Still on Cardizem drip which is running at 5 mg hour. She is also on Lopressor current dose of 50 mg p.o. twice a day. Anticoagul ation was restarted by the medical group and the patient is currently on Eliquis 2.5 mg p.o. twice a day. She remains on oxygen and she is currently on 2 L nasal cannula. Some limited cough and congestion. Chest x-ray was done and showed improving interstitial pattern which was attribute to pulmonary vascular congestion/venous congestion and a stable tiny left lower lobe effusion. Otherwise, no other new complaints. Tolerating diet. No chest pain. the patient is still having hematuria on today's evaluation on 03/09/2024, the patient is having hematuria. Noted aspirin and Eliquis was restarted back by cardiology. As such, the patient developed hematuria and the medications were essentially discontinued. Hemoglobin dropped down to 6.5 and the patient is going to be receiving 1 unit of packed RBC. She is also having some liquid diarrhea. Will check stool for C. difficile. The patient remains in atrial fibrillation. She remains quite tachycardic and she is currently on metoprolol 50 mg p.o. 3 times daily. Will add Cardizem for better rate control. The patient remains on IV Rocephin. White cell count is 7.2, platelet count 273, creatinine is down to 1.89 with a BUN of 31 and a sodium levels of 133. No other significant events overnight. She is awake and alert and communicating. No signs of any significant respiratory distress. Chest x-ray findings were stable and improving. On today's evaluation of 03/10/2024, I am seeing the patient for a follow-up. Unfortunately, the patient continues to have hematuria. Urology is on the case. No plans for cystoscopy at this point in time and the patient is currently off anticoagulation. Repeat hemoglobin from today is down to 7.9. The white cell count is 7.3. The patient's renal function is stable with a BUN of 30 creatinine 1.8. Serum bicarb is at 20. The patient remains on oxygen on room air. No significant respiratory distress. No other complaints otherwise for now. She remains on IV Rocephin. Urology on the case. Objective - Vital Signs Vital signs: Vital Signs Temp 97.3 F L 03/10/24 08:05 Pulse 97 03/10/24 08:05 Resp 16 03/10/24 08:05 BP 128/60 03/10/24 08:05 Pulse Ox 97 03/10/24 08:05 FiO2 Intake & Output 03/09/24 03/10/24 03/10/24 18:59 06:59 18:59 Intake Total 1116 Output Total 870 1225 Balance 246 -1225 Weight 68.7 kg Intake: IV 210 0.9 KVO 40 Sodium Chloride 0.9% 1, 120 000 ml @ 40 mls/hr IV . Q24H [facility] Rx#:[id number] cefTRIAXone 2 gm In 50 Sodium Chloride 0.9% 50 ml @ 100 mls/hr IVPB Q24HR [facility] Rx#:[id number] Oral 622 Blood Product 284 Rc Pheresis As-3 Unit 284 [id number] Output: Urine 870 1225 Other: Voiding Method Indwelling Catheter Indwelling Catheter Indwelling Catheter - Exam GENERAL EXAM: Alert, 83-year-old white female, comfortable in no apparent distress. The patient is on room air oxygen. HEAD: Normocephalic and atraumatic EYES: Normal reaction of pupils, equal size. NOSE: Clear with pink turbinates. THROAT: No erythema or exudates. NECK: No masses, no JVD. CHEST: No chest wall deformity. LUNGS: Equal air entry with bibasilar inspiratory crackles. No conversational dyspnea or accessory muscle use.. CVS: S1 and S2 normal with soft grade 1 systolic murmur, irregular rhythm. No extra heart sounds ABDOMEN: No hepatosplenomegaly, active bowel sounds, no guarding or rigidity. SPINE: No scoliosis or deformity. No CVA tenderness. SKIN: No rashes, generalized pallor CENTRAL NERVOUS SYSTEM: No focal deficits, tone is normal in all 4 extremities. EXTREMITIES: There is bilateral lower extremity edema, greater on the right. No clubbing, or cyanosis. Peripheral pulses are intact. - Labs CBC & Chem 7: 03/10/24 10:25 03/10/24 10:25 Labs: Abnormal Lab Results - Last 24 Hours (Table) 03/09/24 03/09/24 03/09/24 Range/Units 05:45 19:07 20:02 WBC 11.7 H (3.8-10.6) k/uL RBC 3.33 L (3.80-5.40) m/uL Hgb 9.1 L D (11.4-16.0) gm/dL Hct 28.8 L (34.0-46.0) % RDW 18.9 H (11.5-15.5) % POC Glucose (mg/dL) 167 H (70-110) mg/dL Crossmatch See Detail 03/10/24 03/10/24 Range/Units 06:30 10:25 WBC (3.8-10.6) k/uL RBC 2.87 L (3.80-5.40) m/uL Hgb 7.9 L (11.4-16.0) gm/dL Hct 24.9 L (34.0-46.0) % RDW 19.6 H (11.5-15.5) % POC Glucose (mg/dL) 127 H (70-110) mg/dL Crossmatch Microbiology - Last 24 Hours (Table) 03/04/24 19:20 Blood Culture - Final Blood 03/04/24 19:05 Blood Culture - Final Blood Assessment and Plan Assessment: Hematuria likely secondary to hemorrhagic cystitis in addition to the intake of aspirin and anticoagulation with Eliquis. Both agents have been discontinued. Blood loss anemia hemoglobin is at 7.9 Hypotension, improved and the patient is currently off pressors. IV fluids are currently at KVO Fall and near syncopal event, secondary to above Severe dehydration and reduced oral intake in addition to hematuria, improved Acute on chronic kidney disease, secondary to above, hypotension, and ATN, renal function improved and creatinine is still improving. UTI with Klebsiella pneumonia, remains on IV Rocephin Chronic A-fib, currently on metoprolol 50 mg 3 times daily, no anticoagulants. Chronic microcytic, hypochromic anemia, hemoglobin stable and the patient got transfused with a total of 2 units of packed RBC Coronary artery disease, with recent PCI/stent to the LAD performed 10/28/2023 History of mild to moderate mitral regurgitation, preserved LV function History of diabetes mellitus, type II History of hypothyroidism Chronic kidney disease stage III History of hyperlipidemia Remote history of uterine CA Plan: IV fluids at KVO Renal function stable Titrate FiO2 and the patient is on room air oxygen L Hold aspirin and anticoagulation with Eliquis Continue IV Rocephin Monitor hematuria Monitor hemoglobin Continue metoprolol 100 mg twice daily for rate control Midodrine for borderline hypotension Urology is on the case keep the Streeter catheter in place CAT scan of the abdomen and pelvis was done and showed no acute abnormalities Will continue to follow\
--- NOTE | 2024-03-10 19:34 | P.PN ---
Subjective Progress Note Date: 03/10/24 Patient is seen for follow-up for acute kidney injury. Admitted with significant hematuria and maintained on antibiotics for UTI. Urine had cleared but bleeding has worsened again after anticoagulation was restarted. Patient is being followed by urology. Eliquis has been discontinued again. No new complaints, persistent hematuria. Patient is sleeping, comfortable, in no acute distress. Examination of the heart S1 and S2 Examination the lungs decreased breath sounds at the bases Abdomen is soft nontender Examination of lower extremities shows trace edema. CHORE TENDER exam grossly intact Objective - Vital Signs Vital signs: Vital Signs Temp 97.3 F L 03/10/24 08:05 Pulse 97 03/10/24 08:05 Resp 16 03/10/24 08:05 BP 128/60 03/10/24 08:05 Pulse Ox 97 03/10/24 08:05 FiO2 Intake & Output 03/09/24 03/10/24 03/10/24 18:59 06:59 18:59 Intake Total 1116 Output Total 870 1225 Balance 246 -1225 Weight 68.7 kg Intake: IV 210 0.9 KVO 40 Sodium Chloride 0.9% 1, 120 000 ml @ 40 mls/hr IV . Q24H [facility] Rx#:[id number] cefTRIAXone 2 gm In 50 Sodium Chloride 0.9% 50 ml @ 100 mls/hr IVPB Q24HR [facility] Rx#:[id number] Oral 622 Blood Product 284 Rc Pheresis As-3 Unit 284 [id number] Output: Urine 870 1225 Other: Voiding Method Indwelling Catheter Indwelling Catheter Indwelling Catheter - Labs CBC & Chem 7: 03/10/24 10:25 03/10/24 10:25 Labs: Abnormal Lab Results - Last 24 Hours (Table) 03/09/24 03/09/24 03/09/24 Range/Units 05:45 19:07 20:02 WBC 11.7 H (3.8-10.6) k/uL RBC 3.33 L (3.80-5.40) m/uL Hgb 9.1 L D (11.4-16.0) gm/dL Hct 28.8 L (34.0-46.0) % RDW 18.9 H (11.5-15.5) % Sodium (137-145) mmol/L Chloride (98-107) mmol/L Carbon Dioxide (22-30) mmol/L BUN (7-17) mg/dL Creatinine (0.52-1.04) mg/dL Glucose (74-99) mg/dL POC Glucose (mg/dL) 167 H (70-110) mg/dL Calcium (8.4-10.2) mg/dL Total Protein (6.3-8.2) g/dL Albumin (3.5-5.0) g/dL Crossmatch See Detail 03/10/24 03/10/24 03/10/24 Range/Units 06:30 10:25 10:25 WBC (3.8-10.6) k/uL RBC 2.87 L (3.80-5.40) m/uL Hgb 7.9 L (11.4-16.0) gm/dL Hct 24.9 L (34.0-46.0) % RDW 19.6 H (11.5-15.5) % Sodium 134 L (137-145) mmol/L Chloride 110 H (98-107) mmol/L Carbon Dioxide 20 L (22-30) mmol/L BUN 30 H (7-17) mg/dL Creatinine 1.85 H (0.52-1.04) mg/dL Glucose 115 H (74-99) mg/dL POC Glucose (mg/dL) 127 H (70-110) mg/dL Calcium 7.5 L (8.4-10.2) mg/dL Total Protein 4.9 L (6.3-8.2) g/dL Albumin 2.1 L (3.5-5.0) g/dL Crossmatch Microbiology - Last 24 Hours (Table) 03/04/24 19:20 Blood Culture - Final Blood 03/04/24 19:05 Blood Culture - Final Blood Assessment and Plan Assessment: 1. Acute kidney injury, ATN, nonoliguric secondary to hypotension and severe anemia. status post IV fluids. Maintained on antibiotics for UTI. No evidence of obstruction on CT scan. Renal function at baseline. 2. Hematuria associated with anticoagulation. underlying UTI noted as well. No bladder mass seen on imaging studies. patient is being followed by urology. Continue frequent flushing off the catheter. Plans for cystoscopy down the road. Anticoagulation on hold. 3. A. fib with RVR 4. Hypotension secondary to underlying infection and severe anemia. history of hypotension as outpatient as well. Patient was maintained on midodrine. Cortisol level at 19.. 5. Chronic kidney disease NKF stage IIIB with baseline creatinine about 1.6-1.8 mg/dL. etiology is likely diabetic kidney disease. 6. History of CHF with preserved ejection fraction. EF 55-60% on echocardiogram in July 2023. 7. UTI, urine culture is growing gram-negative rods. Patient is maintained on Rocephin. No abnormalities noted on imaging studies. 8. Non-gap metabolic acidosis secondary to acute kidney injury Plan: Continue frequent flushing off Streeter catheter due to significant hematuria. Daily labs Renal function at baseline level. RBCs transfusion as needed for Hb <7.0.
[2024-03-10 20:19] LABS: Glucose,Whole Blood 188 mg/dL (70-110)
[2024-03-11 06:08] LABS: Glucose,Whole Blood 99 mg/dL (70-110)
[2024-03-11 07:06] LABS: Anisocytosis Slight; HCT 25.6 % (34.0-46.0); HGB 8.1 gm/dL (11.4-16.0); Hypochromasia Slight; MCH 27.7 pg (25.0-35.0); MCHC 31.7 g/dL (31.0-37.0); MCV 87.3 fL (80.0-100.0); Mean Platelet Volume 7.2; Platelet Count 306 k/uL (150-450); Poikilocytosis Slight; RBC 2.93 m/uL (3.80-5.40); RDW 19.8 % (11.5-15.5); WBC 6.8 k/uL (3.8-10.6)
[2024-03-11 07:32] LABS: ALT 11 U/L (4-34); AST 17 U/L (14-36); African American GFR (CKD) 29 (>60 ml/min/1.73 sqM); Alkaline Phosphatase 79 U/L (38-126); Blood Urea Nitrogen 28 mg/dL (7-17); Calcium 7.4 mg/dL (8.4-10.2); Glucose 99 mg/dL (74-99); Non-African American GFR(CKD) 25 (>60 ml/min/1.73 sqM); Potassium 3.5 mmol/L (3.5-5.1); Sodium 136 mmol/L (137-145); Total Bilirubin 0.3 mg/dL (0.2-1.3); Total Protein 4.9 g/dL (6.3-8.2)
[2024-03-11 07:48] LABS: Anion Gap 3 mmol/L; Carbon Dioxide 21 mmol/L (22-30); Chloride 112 mmol/L (98-107)
--- NOTE | 2024-03-11 10:12 | P.PN ---
Subjective Progress Note Date: 03/11/24 the patient is in the hospital with cardio pulmonary problems. She is known to our office, for incomplete bladder emptying. She has had intermittent hematuria for several weeks. She has growna Klebsiella pneumoniae urinary tract infection. She has had gross hematuria that I suspect is due to hemorrhagic cystitis aggravated by anticoagulation. Her urine had cleared however the blood return when they resumed her anticoagulation. The patient's urine has dark old blood. He will probably take another 48 hours for at that is all then pass through. The patient should have a cystoscopy and hopefully we can do this before she is discharged home. Objective - Vital Signs Vital signs: Vital Signs Temp 97.5 F L 03/11/24 04:00 Pulse 96 03/11/24 04:00 Resp 16 03/11/24 04:00 BP 125/61 03/11/24 04:00 Pulse Ox 99 03/11/24 04:00 FiO2 Intake & Output 03/10/24 03/11/24 03/11/24 18:59 06:59 18:59 Output Total 1300 1700 Balance -1300 -1700 Output: Urine 1300 1700 Other: Voiding Method Indwelling Catheter Indwelling Catheter # Bowel Movements 1 1 - Labs CBC & Chem 7: 03/11/24 06:41 03/11/24 06:41 Labs: Abnormal Lab Results - Last 24 Hours (Table) 03/10/24 03/10/24 03/10/24 Range/Units 10:25 10:25 20:18 RBC 2.87 L (3.80-5.40) m/uL Hgb 7.9 L (11.4-16.0) gm/dL Hct 24.9 L (34.0-46.0) % RDW 19.6 H (11.5-15.5) % Sodium 134 L (137-145) mmol/L Chloride 110 H (98-107) mmol/L Carbon Dioxide 20 L (22-30) mmol/L BUN 30 H (7-17) mg/dL Creatinine 1.85 H (0.52-1.04) mg/dL Glucose 115 H (74-99) mg/dL POC Glucose (mg/dL) 188 H (70-110) mg/dL Calcium 7.5 L (8.4-10.2) mg/dL Total Protein 4.9 L (6.3-8.2) g/dL Albumin 2.1 L (3.5-5.0) g/dL 03/11/24 03/11/24 Range/Units 06:41 06:41 RBC 2.93 L (3.80-5.40) m/uL Hgb 8.1 L (11.4-16.0) gm/dL Hct 25.6 L (34.0-46.0) % RDW 19.8 H (11.5-15.5) % Sodium 136 L (137-145) mmol/L Chloride 112 H (98-107) mmol/L Carbon Dioxide 21 L (22-30) mmol/L BUN 28 H (7-17) mg/dL Creatinine 1.87 H (0.52-1.04) mg/dL Glucose (74-99) mg/dL POC Glucose (mg/dL) (70-110) mg/dL Calcium 7.4 L (8.4-10.2) mg/dL Total Protein 4.9 L (6.3-8.2) g/dL Albumin 2.0 L (3.5-5.0) g/dL Assessment and Plan Assessment: impression: Gross hematuria secondary to hemorrhagic cystitis. Recurrence of bleeding due to anticoagulation and hemorrhagic cystitis. The blood at present is old blood. Recommendations: Continue to allow the blood to dissolve and pass out of the catheter once it does she will need cystoscopy to rule out intravesical pathology other than infection
--- NOTE | 2024-03-11 12:29 | P.PN ---
Subjective Progress Note Date: 03/11/24 Patient is seen for follow-up for acute kidney injury. Admitted with significant hematuria and maintained on antibiotics for UTI. Urine had cleared but bleeding has worsened again after anticoagulation was restarted. Patient is being followed by urology. Eliquis has been discontinued again. No new complaints, persistent hematuria. Patient is sleeping, comfortable, in no acute distress. Examination of the heart S1 and S2 Examination the lungs decreased breath sounds at the bases Abdomen is soft nontender Examination of lower extremities shows trace edema. BEAD FILLER exam grossly intact Objective - Vital Signs Vital signs: Vital Signs Temp 97.5 F L 03/11/24 04:00 Pulse 96 03/11/24 04:00 Resp 16 03/11/24 04:00 BP 125/61 03/11/24 04:00 Pulse Ox 99 03/11/24 04:00 FiO2 Intake & Output 03/10/24 03/11/24 03/11/24 18:59 06:59 18:59 Output Total 1300 1700 Balance -1300 -1700 Output: Urine 1300 1700 Other: Voiding Method Indwelling Catheter Indwelling Catheter # Bowel Movements 1 1 - Labs CBC & Chem 7: 03/11/24 06:41 03/11/24 06:41 Labs: Abnormal Lab Results - Last 24 Hours (Table) 03/10/24 03/10/24 03/10/24 Range/Units 10:25 10:25 20:18 RBC 2.87 L (3.80-5.40) m/uL Hgb 7.9 L (11.4-16.0) gm/dL Hct 24.9 L (34.0-46.0) % RDW 19.6 H (11.5-15.5) % Sodium 134 L (137-145) mmol/L Chloride 110 H (98-107) mmol/L Carbon Dioxide 20 L (22-30) mmol/L BUN 30 H (7-17) mg/dL Creatinine 1.85 H (0.52-1.04) mg/dL Glucose 115 H (74-99) mg/dL POC Glucose (mg/dL) 188 H (70-110) mg/dL Calcium 7.5 L (8.4-10.2) mg/dL Total Protein 4.9 L (6.3-8.2) g/dL Albumin 2.1 L (3.5-5.0) g/dL 03/11/24 03/11/24 Range/Units 06:41 06:41 RBC 2.93 L (3.80-5.40) m/uL Hgb 8.1 L (11.4-16.0) gm/dL Hct 25.6 L (34.0-46.0) % RDW 19.8 H (11.5-15.5) % Sodium 136 L (137-145) mmol/L Chloride 112 H (98-107) mmol/L Carbon Dioxide 21 L (22-30) mmol/L BUN 28 H (7-17) mg/dL Creatinine 1.87 H (0.52-1.04) mg/dL Glucose (74-99) mg/dL POC Glucose (mg/dL) (70-110) mg/dL Calcium 7.4 L (8.4-10.2) mg/dL Total Protein 4.9 L (6.3-8.2) g/dL Albumin 2.0 L (3.5-5.0) g/dL Assessment and Plan Assessment: 1. Acute kidney injury, ATN, nonoliguric secondary to hypotension and severe anemia. status post IV fluids. Maintained on antibiotics for UTI. No evidence of obstruction on CT scan. Renal function at baseline. 2. Hematuria associated with anticoagulation. underlying UTI noted as well. No bladder mass seen on imaging studies. patient is being followed by urology. Continue frequent flushing off the catheter. Plans for cystoscopy down the road. Anticoagulation on hold. 3. A. fib with RVR 4. Hypotension secondary to underlying infection and severe anemia. history of hypotension as outpatient as well. Patient was maintained on midodrine. Cortisol level at 19.. 5. Chronic kidney disease NKF stage IIIB with baseline creatinine about 1.6-1.8 mg/dL. etiology is likely diabetic kidney disease. 6. History of CHF with preserved ejection fraction. EF 55-60% on echocardiogram in July 2023. 7. UTI, urine culture is growing gram-negative rods. Patient is maintained on Rocephin. No abnormalities noted on imaging studies. 8. Non-gap metabolic acidosis secondary to acute kidney injury Plan: Continue frequent flushing off Streeter catheter due to significant hematuria. Daily labs Renal function at baseline level. RBCs transfusion as needed for Hb <7.0. Possibly cystoscopy with urology this admission.
--- NOTE | 2024-03-11 12:33 | P.PN ---
Subjective Progress Note Date: 03/11/24 Patient is a 83-year-old white female with past medical history significant for coronary artery disease with recent stent, valvular heart disease, atrial fibrillation anticoagulated on Eliquis, hypertension, diabetes mellitus, uterine cancer. Of note, patient had a recent hospitalization September, for non-ST elevation LA and received a stent to the LAD. Patient presented to emergency room yesterday afternoon with a chief complaint of generalized weakness and fatigue and she had a fall. She was apparently in the bathroom where she went to get up and became lightheaded and fell. She states that her son was at work at this time, he found her when he came home. She was on the ground for a co uple hours. States that she did hit her head and right chest. Did not have anything to eat or drink all day. Her son was the one that called 911. She states that over the last several days she has been generally weak. CT of the brain without contrast did not show any acute intracranial abnormality. There is atrophy and chronic microvessel ischemic white matter changes. While being evaluated by the ER room physician, she was noted to be hypotensive. She has been fluid resuscitated with 1 L of normal saline bolus, and currently has normal saline infusing at 130 MLS per hour. She does take midodrine outpatient. After the 1 L normal saline bolus, patient remained hypotensive, and my sup ervising physician recommended ICU monitoring. Patient is currently in the emergency department, room 7. She appears fairly comfortable. She is on room air. SpO2 100%. Blood pressure currently 85/61 mmHg. Heart rhythm appears to be atrial fibrillation with a rate of 118 bpm. Norepinephrine has not been started yet. She denies any radiating chest pain, there is some localized reproducible right-sided chest pain where she impacted on fall. Denies any heart palpitations or syncopal events. She has a pure wick suction catheter, there is presumed gross hematuria in the canister. She is not able to tell me how long this has been occurring for. She denies kidney stones. She is on Eliquis outpatient. Patient does admit to some continuous pelvic discomfort/pressure. No flank pain. No burning with urination, no increased urinary frequency. She is chronically incontinent to urine. She has noted blood clots in her underwear. She has remote history of uterine cancer. She does not think this is vaginal bleeding. She received a dose of Rocephin in the emergency room for possible UTI. Urinalysis showing hina blood and WBCs. Culture is pending. She is afebrile. CBC without leukocytosis. Hemoglobin 8.8 g/dL, hematocrit 28.7. Platelets 471. CMP on arrival: Sodium 130, potassium 3.3, chloride 98, serum bicarb 23, BUN 54, creatinine 2.72, glucose 275. Lactic acid originally 3.1 and down to 1.7. LFTs not elevated. EKG done on arrival showed atrial fibrillation with a rate of [address] depressions in the lateral leads. Troponin less than 0.012. NT proBNP 19,900. Chest x-ray shows stable cardiac silhouette, no pulmonary vascular congestion or edema, no acute infiltrates, no pleural effusions or pneumothoraces. She is going to be monitored in the intensive care unit, and transferred once bed available. On 03/06/2024, the patient continues to have hematuria although this has somewhat improved compared to yesterday. Urine output is still bloody and the intensity of the blood is less compared to yesterday. Noted the patient drop in hemoglobin yesterday down to 6.8 and she was given additional unit of packed RBC making a total of 2 units of packed RBC and hemoglobin is currently up to 7.8. She remains on normal saline at the rate of 130 cc an hour. The norepinephrine infusion was discontinued around 5:00 this morning. She is in atrial fibrilla tion. She is slightly tachycardic. Urine culture is showing gram-negative bacillus and the patient is currently on IV Rocephin. The WBC count is at 7.5, hemoglobin 7.8 and a platelet count of 351. Creatinine is improving is currently down to 2.2 again of 43, serum bicarb is at 17 with a sodium level of 135 and a potassium level of 3.4 and this needs to be replaced. The cortisol level is at 19.2. This was a random cortisol level. Echocardiogram was also done on 03/05/2024 revealing a ejection fraction of 65 to 70%, small LV cavity, mildly increased septal wall thickening, mild increase in the posterior wall thickening, no significant valvular abnormalities noted. Mild LVH. Noted the p atient was given Kcentra yesterday. The patient is currently off anticoagulation. 03/07/2024, the patient is being seen for a follow-up. Patient is doing well. The patient is not having any active hematuria at this point in time. The hematuria has subsided. She is currently on 4 L of oxygen by nasal cannula. She has been off norepinephrine since 5 AM this morning. IV fluids are currently at KVO. The patient however developed atrial fibrillation with rapid ventricular response 6 PM yesterday. Her lungs are also congested. Based on that, she was given a dose of Lasix in the morning. She is currently on a Cardizem drip running at 10 mg an hour. She remains calm and comfortable. No significant chest pain. The white count of 10.6 with a hemoglobin 7.4 and a platelet count of 345. BUN 33 with a creatinine of 1.98 and the sodium is at 137. Urine culture is positive for Klebsiella pneumonia. 03/08/2024, the patient is not having any hematuria. She was diagnosed having a Klebsiella pneumoniae urine tract infection with secondary hematuria and hematuria has subsided. The patient remains on IV Rocephin. Hemodynamically stable on no pressors. Still on Cardizem drip which is running at 5 mg hour. She is also on Lopressor current dose of 50 mg p.o. twice a day. Anticoagul ation was restarted by the medical group and the patient is currently on Eliquis 2.5 mg p.o. twice a day. She remains on oxygen and she is currently on 2 L nasal cannula. Some limited cough and congestion. Chest x-ray was done and showed improving interstitial pattern which was attribute to pulmonary vascular congestion/venous congestion and a stable tiny left lower lobe effusion. Otherwise, no other new complaints. Tolerating diet. No chest pain. the patient is still having hematuria on today's evaluation on 03/09/2024, the patient is having hematuria. Noted aspirin and Eliquis was restarted back by cardiology. As such, the patient developed hematuria and the medications were essentially discontinued. Hemoglobin dropped down to 6.5 and the patient is going to be receiving 1 unit of packed RBC. She is also having some liquid diarrhea. Will check stool for C. difficile. The patient remains in atrial fibrillation. She remains quite tachycardic and she is currently on metoprolol 50 mg p.o. 3 times daily. Will add Cardizem for better rate control. The patient remains on IV Rocephin. White cell count is 7.2, platelet count 273, creatinine is down to 1.89 with a BUN of 31 and a sodium levels of 133. No other significant events overnight. She is awake and alert and communicating. No signs of any significant respiratory distress. Chest x-ray findings were stable and improving. On today's evaluation of 03/10/2024, I am seeing the patient for a follow-up. Unfortunately, the patient continues to have hematuria. Urology is on the case. No plans for cystoscopy at this point in time and the patient is currently off anticoagulation. Repeat hemoglobin from today is down to 7.9. The white cell count is 7.3. The patient's renal function is stable with a BUN of 30 creatinine 1.8. Serum bicarb is at 20. The patient remains on oxygen on room air. No significant respiratory distress. No other complaints otherwise for now. She remains on IV Rocephin. Urology on the case. 03/11/2024, the patient is being seen for a follow-up. She is having some hematuria although urine output seems to be less bloody compared to yesterday. Hemoglobin is at 8.1 which is essentially stable compared to yesterday. Creatinine is also stable at 1.8. The patient is currently on room air oxygen. Urology on the case. The patient remains in atrial fibrillation. Rate is controlled and the patient is off Eliquis. Objective - Vital Signs Vital signs: Vital Signs Temp 97.5 F L 03/11/24 04:00 Pulse 96 03/11/24 04:00 Resp 16 03/11/24 04:00 BP 125/61 03/11/24 04:00 Pulse Ox 99 03/11/24 04:00 FiO2 Intake & Output 03/10/24 03/11/24 03/11/24 18:59 06:59 18:59 Output Total 1300 1700 Balance -1300 -1700 Output: Urine 1300 1700 Other: Voiding Method Indwelling Catheter Indwelling Catheter # Bowel Movements 1 1 - Exam GENERAL EXAM: Alert, 83-year-old white female, comfortable in no apparent distress. The patient is on room air oxygen. HEAD: Normocephalic and atraumatic EYES: Normal reaction of pupils, equal size. NOSE: Clear with pink turbinates. THROAT: No erythema or exudates. NECK: No masses, no JVD. CHEST: No chest wall deformity. LUNGS: Equal air entry with bibasilar inspiratory crackles. No conversational dyspnea or accessory muscle use.. CVS: S1 and S2 normal with soft grade 1 systolic murmur, irregular rhythm. No extra heart sounds ABDOMEN: No hepatosplenomegaly, active bowel sounds, no guarding or rigidity. SPINE: No scoliosis or deformity. No CVA tenderness. SKIN: No rashes, generalized pallor CENTRAL NERVOUS SYSTEM: No focal deficits, tone is normal in all 4 extremities. EXTREMITIES: There is bilateral lower extremity edema, greater on the right. No clubbing, or cyanosis. Peripheral pulses are intact. - Labs CBC & Chem 7: 03/11/24 06:41 03/11/24 06:41 Labs: Abnormal Lab Results - Last 24 Hours (Table) 03/10/24 03/10/24 03/10/24 Range/Units 10:25 10:25 20:18 RBC 2.87 L (3.80-5.40) m/uL Hgb 7.9 L (11.4-16.0) gm/dL Hct 24.9 L (34.0-46.0) % RDW 19.6 H (11.5-15.5) % Sodium 134 L (137-145) mmol/L Chloride 110 H (98-107) mmol/L Carbon Dioxide 20 L (22-30) mmol/L BUN 30 H (7-17) mg/dL Creatinine 1.85 H (0.52-1.04) mg/dL Glucose 115 H (74-99) mg/dL POC Glucose (mg/dL) 188 H (70-110) mg/dL Calcium 7.5 L (8.4-10.2) mg/dL Total Protein 4.9 L (6.3-8.2) g/dL Albumin 2.1 L (3.5-5.0) g/dL 03/11/24 03/11/24 Range/Units 06:41 06:41 RBC 2.93 L (3.80-5.40) m/uL Hgb 8.1 L (11.4-16.0) gm/dL Hct 25.6 L (34.0-46.0) % RDW 19.8 H (11.5-15.5) % Sodium 136 L (137-145) mmol/L Chloride 112 H (98-107) mmol/L Carbon Dioxide 21 L (22-30) mmol/L BUN 28 H (7-17) mg/dL Creatinine 1.87 H (0.52-1.04) mg/dL Glucose (74-99) mg/dL POC Glucose (mg/dL) (70-110) mg/dL Calcium 7.4 L (8.4-10.2) mg/dL Total Protein 4.9 L (6.3-8.2) g/dL Albumin 2.0 L (3.5-5.0) g/dL Assessment and Plan Assessment: Hematuria likely secondary to hemorrhagic cystitis in addition to the intake of aspirin and anticoagulation with Eliquis. Eliquis has been discontinued Blood loss anemia hemoglobin is at 8.1 Hypotension, improved and the patient is currently off pressors. IV fluids are currently at KVO Fall and near syncopal event, secondary to above Severe dehydration and reduced oral intake in addition to hematuria, improved Acute on chronic kidney disease, secondary to above, hypotension, and ATN, renal function is stable . UTI with Klebsiella pneumonia, remains on IV Rocephin Chronic A-fib, currently on metoprolol 50 mg 3 times daily, no anticoagulants. Chronic microcytic, hypochromic anemia, hemoglobin stable and the patient got transfused with a total of 2 units of packed RBC Coronary artery disease, with recent PCI/stent to the LAD performed 10/28/2023 History of mild to moderate mitral regurgitation, preserved LV function History of diabetes mellitus, type II History of hypothyroidism Chronic kidney disease stage III History of hyperlipidemia Remote history of uterine CA Plan: IV fluids at KVO Renal function stable Hemoglobin stable Titrate FiO2 and the patient is on room air oxygen Hold h Eliquis Continue IV Rocephin Monitor hematuria Monitor hemoglobin Continue metoprolol 100 mg twice daily for rate control Midodrine for borderline hypotension Urology is on the case keep the Streeter catheter in place CAT scan of the abdomen and pelvis was done and showed no acute abnormalities Will continue to follow\
--- NOTE | 2024-03-11 12:41 | P.PN ---
Subjective Progress Note Date: 03/11/24 83-year-old office patient with active medical history of Paroxysmal atrial fibrillation was on anticoagulation, history of hypertension, hyperlipidemia, stage III chronic kidney disease, chronic diastolic congestive heart failure, who also had recently history of non-ST PA with heart cath showed CAD including left main at 80% stenosis with mild LAD at 60 to 70% stenosis with circumflex 100% stenosis ended up having PCI of the left main and LAD, patient had multiple visits to the emergency department last few months with recurrent A-fib with RVR with similar claimed that she ran out of medication, she stopped taking medication a week ago, and many other. Sadly since her angioplasty and stent placement and the harm of not being on dual antiplatelet agent and her current medications extremely dangerous despite explaining this to the patient it looks like this event keep happening. She was hospitalized again in November for A-fib with RVR along with elevated troponin and anemia. She has been complaining of generalized weakness and fatigue post fall she apparently found in the bathroom developed severe lightheadedness and fell her son found her after work she was down for total hours she hit her head and right chest area has not had anything to eat or drink all day Call 911 patient brought to the emergency department at [facility] CT of the brain without contrast did not show any acute abnormality there is atrophy and microvascular finding. Found to be extremely hypertensive she was giving 1 L of IV saline and continue with 130 cc an hour she remained quite hypotensive she had anemia as well and found to be in A-fib with pulse rate running 110 beats per minutes her blood pressure still 80/60 she was started on vasopressor with norepinephrine was not having any chest pain or tightness at her proBNP was 18,800 with mildly elevated troponin. Her urine shows gross hematuria and has been having apparently problem with burning discomfort in bloody urine. She is on Eliquis for A-fib with RVR so she is on 2 Plavix since her angioplasty and stent early. 2 g of Rocephin was giving culture was done for blood and urine her hemoglobin initially was 8.8 and within few hours dropped down to 6 with hydration patient does not have any visual active GI bleed her BUN 54 creatinine 2.72 much worse than before lactic acid at 3.1. Patient was transferred to the ICU continue hydration, vasopressor, process for blood transfusion to be done. 03/06/2024: Continue to have gross hematuria causing more anemia despite a blood transfusion. Urology seen the patient and believe this is hemorrhagic cystitis aggravated by anticoagulation and they are recommending to irrigate the catheter when necessary still waiting for the urine culture to be finalized in the meanwhile she has remained on Rocephin 2 g daily. She is off vasopressor currently hemoglobin is up to 7.8. 2 unit of packed red cell transfusion. White blood cell is down 7.5 with normal platelet and creatinine improve down to 2.2 with bun of 43. Echocardiogram showed ejection fraction well-preserved with no significant valvular abnormality but mild left ventricular hypertrophy. Patient remain off anticoagulation and was giving 1 dose of Kcentra yesterday still holding on Eliquis and Plavix with cardiology restarted aspirin 81 mg a day. 03/07/2024: Continue to be on 4 L of oxygen to keep her pulse ox above 90 percentile, she had A-fib with RVR with significant worsening congestion of the lung consistent with more heart failure at this point. Started on Cardizem drip 10 mg an hour with her pulse remained above 100, hemoglobin still at 7.4 with normal platelet count creatinine 1.98 still been treated for urine positive for Klebsiella pneumonia with IV antibiotics at this point. Continue to have significant amount of hematuria mostly hemorrhagic cystitis and urology believe he can wait on doing cystoscopy to when she is stable as an outpatient. The kidney function slightly better still seen nephrology discussed that to be acute tubular necrosis nonoliguric secondary to hypotension anemia and sepsis to continue IV continue to treat UTI with no evidence of obstruction. 03/08/2024: Urine culture was positive for Klebsiella pneumonia which patient is responding well to IV Rocephin currently, hemodynamically become more stable, her hematuria has been much better and still having twinges of blood in the catheter. Respiratory failure [place] she is require between 2 and 3 L of O2 to keep her pulse ox above 90 percentile. She is still on Cardizem drip 5 mg an hour to keep pulse under 90 bpm also on Lopressor 50 mg twice a day and still on Eliquis 2.5 mg twice a day. Patient had slight pleural effusion advance diet mobility still significantly decreased and limited to bedrest currently. Nephrology wants her creatinine is down to 2.0 with GFR slightly bit better, continue hydration despite expansion of fluid overload causing more problem at this point. Hoping her creatinine will be down to its baseline before this happened. From cardiology standpoint ejection fraction on echo was well-preserved at 65-70 percentile with no significant valvular heart disease. Cardizem apparently is going to be stopped at some point soon try to monitor her pulse below 90 possible. 03/08/2024: Remain in ICU hemoglobin dropped down again to 6.5 blood transfusion process start again. Respiratory status is slightly better remain on 2 L of O2 at this point. She is still tachycardic running pulse rate around 100 2230 bpm despite being on metoprolol adding Cardizem for better pulse rate control. Her kidney function is better currently with creatinine down to 1.89, urology has no interest in doing cystoscopy at this point he still having a twinge of hematuria but not gross hematuria like before. After transfusions completed patient should be able to leave the ICU today cardiac floor on group program manager. 03/10. Patient seen and examined. Hemoglobin this morning is 7.9. Denies any belly pain. States she feels better. 03/11. Patient seen and examined. Blood work this morning showed WBC X.8, hemoglobin 8.1, sodium 130, potassium 3.5, BUN 28, creatinine 1.87. Still has Streeter in place, hematuria has improved REVIEW OF SYSTEMS: CONSTITUTIONAL: No fever, no malaise,. CARDIOVASCULAR: No chest pain, no palpitations, no syncope. PULMONARY: No shortness of breath, no cough, GASTROINTESTINAL: No diarrhea, no nausea, no vomiting, no abdominal pain. NEUROLOGICAL: No headaches, no weakness, PHYSICAL EXAMINATION: GENERAL: The patient is alert and oriented x3, not in any acute distress. Well developed, well nourished. HEENT: Pupils are round and equally reacting to light. EOMI. No scleral icterus. No conjunctival pallor. Normocephalic, atraumatic. No pharyngeal erythema. No thyromegaly. CARDIOVASCULAR: S1 and S2 present. No murmurs, rubs, or gallops. PULMONARY: Chest is clear to auscultation, no wheezing or crackles. ABDOMEN: Soft, nontender, nondistended, normoactive bowel sounds. No palpable organomegaly. MUSCULOSKELETAL: No joint swelling or deformity. EXTREMITIES: No cyanosis, clubbing, or pedal edema. NEUROLOGICAL: Gross neurological examination did not reveal any focal deficits. SKIN: No rashes. Assessment and plan _Sepsis UTI Monitor vital signs monitor CBC, monitor CMP, continue IV Rocephin. ID following. _Severe hematuria, most likely from hemorrhagic cystitis, urology following recommended keeping off anticoagulation and cystoscopy during this admission _A-fib with RVR pulse rates not well-controlled remain on metoprolol and Cardizem currently. _Acute kidney injury on chronic kidney disease: Monitor renal function _Acute blood loss anemia: Monitor CBC _Acute systolic congestive heart failure with known coronary artery disease patient is still quite symptomatic will benefit from continued diuretic specially if we can slow down on too much IV fluid. _Possible non-ST PA with elevated troponin's, slightly abnormal EKG known history of myocardial infarction, patient be seen cardiology CK troponin x 3 will be done. Patient was on aspirin, Plavix and Eliquis, because of hematuria Plavix and Eliquis has been held. Continue aspirin _Atherosclerotic heart disease: Post PCI and stent placement from October has been seeing cardiology. Continue current medical treatment _Type 2 diabetes: Blood sugar is much better so far continue coverage continue Jardiance as well. _Hyperlipidemia: Continue atorvastatin 20 mg a day. _Hypothyroidism: Continue levothyroxine 25 mcg daily. _GI prophylaxis: Will be on pantoprazole 40 mg daily. Labs and medication were reviewed.. Continue same treatment. Continue with symptomatic treatment. Resume home medication. Monitor labs and vitals. DVT and GI prophylaxis. Further recommendations as per clinical course of the patient Dictation was produced using [employer] dictation software. please excuse any grammatical, word or spelling errors. Objective - Vital Signs Vital signs: Vital Signs Temp 97.5 F L 03/11/24 04:00 Pulse 96 03/11/24 04:00 Resp 16 03/11/24 04:00 BP 125/61 03/11/24 04:00 Pulse Ox 99 03/11/24 04:00 FiO2 Intake & Output 03/10/24 03/11/24 03/11/24 18:59 06:59 18:59 Output Total 1300 1700 Balance -1300 -1700 Output: Urine 1300 1700 Other: Voiding Method Indwelling Catheter Indwelling Catheter # Bowel Movements 1 1 - Labs CBC & Chem 7: 03/11/24 06:41 03/11/24 06:41 Labs: Abnormal Lab Results - Last 24 Hours (Table) 03/10/24 03/10/2403/10/24 Range/Units 10:25 10:25 20:18 RBC 2.87 L (3.80-5.40) m/uL Hgb 7.9 L (11.4-16.0) gm/dL Hct 24.9 L (34.0-46.0) % RDW 19.6 H (11.5-15.5) % Sodium 134 L (137-145) mmol/L Chloride 110 H (98-107) mmol/L Carbon Dioxide 20 L (22-30) mmol/L BUN 30 H (7-17) mg/dL Creatinine 1.85 H (0.52-1.04) mg/dL Glucose 115 H (74-99) mg/dL POC Glucose (mg/dL) 188 H (70-110) mg/dL Calcium 7.5 L (8.4-10.2) mg/dL Total Protein 4.9 L (6.3-8.2) g/dL Albumin 2.1 L (3.5-5.0) g/dL 03/11/24 03/11/24 Range/Units 06:41 06:41 RBC 2.93 L (3.80-5.40) m/uL Hgb 8.1 L (11.4-16.0) gm/dL Hct 25.6 L (34.0-46.0) % RDW 19.8 H (11.5-15.5) % Sodium 136 L (137-145) mmol/L Chloride 112 H (98-107) mmol/L Carbon Dioxide 21 L (22-30) mmol/L BUN 28 H (7-17) mg/dL Creatinine 1.87 H (0.52-1.04) mg/dL Glucose (74-99) mg/dL POC Glucose (mg/dL) (70-110) mg/dL Calcium 7.4 L (8.4-10.2) mg/dL Total Protein 4.9 L (6.3-8.2) g/dL Albumin 2.0 L (3.5-5.0) g/dL
--- NOTE | 2024-03-11 13:46 | P.PN ---
Subjective Progress Note Date: 03/11/24 Principal diagnosis: Reason for follow-up is complicated UTI Patient is a 83-year-old male for diabetes mellitus hypertension atrial fibrillation brought to the hospital for evaluation of generalized weakness fatigue lightheadedness low blood pressure patient noticed to have significant hematuria and concern for complicated UTI. On today's evaluation that is 03/11/2024,the patient remains to be afebrile, patient is on room air not requiring supplemental oxygen and denies any shortness of breath no chest pain however has been complaining of some dry irritating cough not bring up any sputum.Patient denies having any nausea or vomiting, no abdominal pain and no diarrhea still having significant hematuria with a Streeter catheter in place. Patient white count is 6.8, creatinine is 1.87 urine with Klebsiella Objective - Vital Signs Vital signs: Vital Signs Temp 97.5 F L 03/11/24 04:00 Pulse 96 03/11/24 04:00 Resp 16 03/11/24 04:00 BP 125/61 03/11/24 04:00 Pulse Ox 99 03/11/24 04:00 FiO2 Intake & Output 03/10/24 03/11/24 03/11/24 18:59 06:59 18:59 Intake Total 480 Output Total 1300 1700 Balance -1300 -1700 480 Intake: Oral 480 Output: Urine 1300 1700 Other: Voiding Method Indwelling Catheter Indwelling Catheter # Bowel Movements 1 1 1 - Exam GENERAL DESCRIPTION: An elderly female lying in bed in no distress RESPIRATORY SYSTEM: Unlabored breathing , decreased breath sounds at bases HEART: S1 S2 regular rate and rhythm , ABDOMEN: Soft , no tenderness - Labs CBC & Chem 7: 03/11/24 06:41 03/11/24 06:41 Labs: Abnormal Lab Results - Last 24 Hours (Table) 03/10/24 03/11/24 03/11/24 Range/Units 20:18 06:41 06:41 RBC 2.93 L (3.80-5.40) m/uL Hgb 8.1 L (11.4-16.0) gm/dL Hct 25.6 L (34.0-46.0) % RDW 19.8 H (11.5-15.5) % Sodium 136 L (137-145) mmol/L Chloride 112 H (98-107) mmol/L Carbon Dioxide 21 L (22-30) mmol/L BUN 28 H (7-17) mg/dL Creatinine 1.87 H (0.52-1.04) mg/dL POC Glucose (mg/dL) 188 H (70-110) mg/dL Calcium 7.4 L (8.4-10.2) mg/dL Total Protein 4.9 L (6.3-8.2) g/dL Albumin 2.0 L (3.5-5.0) g/dL Assessment and Plan (1) UTI (urinary tract infection) Current Visit: Yes Status: Acute Code(s): N39.0 - URINARY TRACT INFECTION, SITE NOT SPECIFIED SNOMED Code(s): 78166367 Plan: 1patient presented to hospital with weakness not feeling well patient was hypotensive noticed to have hematuria with abnormal renal ultrasound concerning for mass versus clot in the urinary bladder did have a positive UA concerning for symptomatic urinary tract infection. 2patient with renal insufficiency and high risk of nephrotoxicity. 3patient urine has been finalized with Klebsiella that is sensitive to ceftriaxone 4- patient is afebrile and the patient white count has normalized patient to continue with Rocephin we will check a chest x-ray and monitor clinical course closely Dictation was produced using [employer] dictation software. please excuse any grammatical, word or spelling errors. Time with Patient: Less than 30
--- NOTE | 2024-03-11 14:58 | XR ---
EXAMINATION TYPE: XR chest 2V DATE OF EXAM: 03/11/2024 2:33 PM CLINICAL INDICATION:Female, 83 years old with history of Cough and shortness of breath; PHH COMPARISON: Chest radiographs from 03/08/2024 TECHNIQUE: XR chest 2V Frontal and lateral views of the chest. FINDINGS: Lungs/Pleura: Blunting of the left costophrenic angle. There is no evidence of right pleural effusion , focal consolidation, or pneumothorax. Pulmonary vascularity: Unremarkable. Heart/mediastinum: Cardiomediastinal silhouette is unremarkable. Atherosclerotic calcifications are seen in the aorta. Musculoskeletal: Degenerative changes of the shoulder joints. IMPRESSION: 1. No significant change from 2 days prior. 2. Stable tiny left pleural effusion.
[2024-03-11 20:10] LABS: Glucose,Whole Blood 179 mg/dL (70-110)
--- NOTE | 2024-03-11 20:20 | P.PN ---
Subjective Progress Note Date: 03/11/24 HISTORY OF PRESENTING ILLNESS 83-year-old with past medical history of paroxysmal atrial fibrillation, hypertension, dyslipidemia, CKD, chronic diastolic heart failure, last NSTEMI in October 2023 requiring heart cath showing 80% left main stenosis and mid LAD 60 to 70% stenosis with SERVICE TRAINER of LCx. She underwent PCI of left main into LAD. Patient has also had multiple hospital visits with A-fib RVR's past. There is also concern of noncompliance to medications. It is unclear if patient has been taking dual antiplatelet therapy since her PCI. This time patient presented to the hospital because of generalized weakness and fatigue and a fall. Apparently patient was found in the bathroom. Patient reported that she became severely lightheaded and could not get up from the sitting position in the bathroom commode. She was down for few hours before her son found her and called the EMS. On admission she was hypotensive and dehydrated along with atrial fibrillation with RVR. Her blood pressure was 80 over 60 mmHg. ECG showed atrial fibrillation with heart rate in the beats were minute, incomplete left bundle branch block with diffuse ST depressions Her labs showed NT proBNP of 18,000, troponin of 0.067, repeat 0.72. Creatinine 2.49, baseline creatinine 1.6 Chest x-ray did not show significant pulm congestion. Pelvic CT showed hypodensity seen in the urinary bladder may reflect blood byproducts. March 06, 2024 Patient continues to have hematuria. It appears slightly better as compared to yesterday. Appears to have 20 to 30 cc/h urine output with slightly improved creatinine to 2.2 today. Hemoglobin is 7.8, platelet 351. She is s/p 2 units of blood transfusion 03/05/2024. Her echocardiogram showed an EF of 65 to 70%, small LV cavity, no significant valvular disease. On exam she reports having diarrhea. Reports feeling weak. Appears slightly d ehydrated getting IV fluids. 03/07/2024 BP 92/62, heart rate 112 bpm, atrial fibrillation with RVR Hemoglobin 7.4. Yesterday it was 7.8. On admission 6.8. She is s/p unit blood transfusion since admission. Renal function has continued to improve, creatinine is 1.9 today. On admission 2.9. She has good urine output. Her hematuria has resolved. 03/08/2024 Patient continues to have significant diarrhea. Hemoglobin is stable. No further hematuria. Appropriate urine output with stable kidney function creatinine at 2 today. Yesterday 119 Patient's diarrhea is better after 1 dose of Imodium. Patient's hemoglobin is dropped to 6.5. Patient started having hematuria again. Will stop her Eliquis and Plavix. Will resume her on aspirin because of recent PCI. March 10, 2024 Blood pressure 107/59, heart rate 80 bpm, rafib rate controlled Patient's diarrhea has got better. She still has bright red urine concerning of hemorrhagic cystitis. She had 1 unit of blood transfusion done yesterday. In total she has got 3 units of blood transfusion since admission. March 11, 2024, BP 110/60, rate controlled afib, still having dark red urine, renal function is holding , no chest pain or shortness of breath. PHYSICAL EXAMINATION Head: Normocephalic. Eyes: Sclerae nonicteric. Neck: Brisk carotid upstroke, no jugular venous distention. Lungs: Poor inspiratory effort. Heart: irregular pulse, S1-S2, , 2/6 systolic murmur . Abdomen: Soft nontender, positive bowel sounds. Extremities: 1+ edema in leg , non pitting Neuro: no focal deficits. Detailed neuro exam was not performed. ASSESSMENT Elevated troponin, likely type II NSTEMI in setting of BOLA, sepsis and anemia Acute on chronic systolic heart failure, CAD s/p PCI in October 2023. S/p PCI to left main into LAD 4 x 15 mm PRANAY Paroxysmal Atrial fibrillation. Currently Afib, Acute blood loss anemia due to hematuria s/p 2 U PRBC Severe sepsis BOLA on CKD, BOLA resolved. Hyperlipidemia Hypothyroidism Medication non compliance Echo July 2023: EF 55%, severe LVH, moderate MR, Echo February 2024, EF 65%, hyperdynamic LV, moderate LVH, no significant wall motion abnormality. PLAN Patient starting having hematuria again on Eliquis and Plavix. This was done in view of her atrial fibrillation and recent PCI. Will stop her Eliquis and Plavix. Will start her on aspirin 81 mg Rate controlled while on metoprolol 100 mg twice daily. Will use midodrine as needed if SBP is less than 90 mmHg and is persistently low. Agree with placing iron stores with IV iron IV antibiotics Monitor renal function electrolytes Transfuse blood if hemoglobin less than 7. Appreciate urology recommendations on hematuria, and recommendations when to resume anticoagulation Objective - Vital Signs Vital signs: Vital Signs Temp 97.6 F 03/11/24 16:20 Pulse 100 03/11/24 16:20 Resp 16 03/11/24 16:20 BP 109/68 03/11/24 16:20 Pulse Ox 99 03/11/24 16:20 FiO2 Intake & Output 03/11/24 03/11/24 03/12/24 06:59 18:59 06:59 Intake Total 480 Output Total 1700 850 Balance -1700 -370 Intake: Oral 480 Output: Urine 1700 850 Other: Voiding Method Indwelling Catheter Indwelling Catheter # Bowel Movements 1 1 - Labs CBC & Chem 7: 03/11/24 06:41 03/11/24 06:41 Labs: Abnormal Lab Results - Last 24 Hours (Table) 03/10/24 03/11/24 03/11/24 Range/Units 20:18 06:41 06:41 RBC 2.93 L (3.80-5.40) m/uL Hgb 8.1 L (11.4-16.0) gm/dL Hct 25.6 L (34.0-46.0) % RDW 19.8 H (11.5-15.5) % Sodium 136 L (137-145) mmol/L Chloride 112 H (98-107) mmol/L Carbon Dioxide 21 L (22-30) mmol/L BUN 28 H (7-17) mg/dL Creatinine 1.87 H (0.52-1.04) mg/dL POC Glucose (mg/dL) 188 H (70-110) mg/dL Calcium 7.4 L (8.4-10.2) mg/dL Total Protein 4.9 L (6.3-8.2) g/dL Albumin 2.0 L (3.5-5.0) g/dL 03/11/24 Range/Units 20:09 RBC (3.80-5.40) m/uL Hgb (11.4-16.0) gm/dL Hct (34.0-46.0) % RDW (11.5-15.5) % Sodium (137-145) mmol/L Chloride (98-107) mmol/L Carbon Dioxide (22-30) mmol/L BUN (7-17) mg/dL Creatinine (0.52-1.04) mg/dL POC Glucose (mg/dL) 179 H (70-110) mg/dL Calcium (8.4-10.2) mg/dL Total Protein (6.3-8.2) g/dL Albumin (3.5-5.0) g/dL
[2024-03-12 06:19] LABS: Glucose,Whole Blood 129 mg/dL (70-110)
[2024-03-12 09:52] LABS: Magnesium 2.2 mg/dL (1.6-2.3)
--- NOTE | 2024-03-12 10:32 | P.PN ---
Subjective Patient is seen in follow-up for chronic kidney disease. Renal function stable as of yesterday. Hematuria noted in the Streeter bag. Oral intake fair. Denies chest pain or shortness of breath. Vital signs are stable. General: No acute distress. HEENT: Head exam is unremarkable. LUNGS: No audible rhonchi or wheezes. HEART: Rate and Rhythm are regular. ABDOMEN: Nontender. EXTREMITITES: No edema. Objective - Vital Signs Vital signs: Vital Signs Temp 97.4 F L 03/12/24 03:14 Pulse 90 03/12/24 03:14 Resp 16 03/12/24 03:14 BP 139/70 03/12/24 03:14 Pulse Ox 100 03/12/24 03:14 FiO2 Intake & Output 03/11/24 03/12/24 03/12/24 18:59 06:59 18:59 Intake Total 480 150 356 Output Total 850 350 Balance -370 -200 356 Intake: Oral 480 150 356 Output: Urine 850 350 Other: Voiding Method Indwelling Catheter Indwelling Catheter # Bowel Movements 1 - Labs CBC & Chem 7: 03/11/24 06:41 03/11/24 06:41 Labs: Abnormal Lab Results - Last 24 Hours (Table) 03/11/24 03/12/24 Range/Units 20:09 06:18 POC Glucose (mg/dL) 179 H 129 H (70-110) mg/dL Assessment and Plan Plan: Assessment: 1. Acute kidney injury secondary to ATN secondary to hypotension and acute blood loss anemia. No obstruction noted on imaging. Creatinine was 2.72 on admission and fairly stable near 1.8 the last 3 days. 2. Chronic kidney disease stage IIIb with baseline creatinine 1.6-1.8. 3. Klebsiella UTI on antibiotics. 4. Acute blood loss anemia with gross hematuria secondary to hemorrhagic cysti tis. Urology following. 5. Metabolic acidosis secondary to chronic kidney disease. Plan: Encouraged oral intake. Avoid nephrotoxins. Continue to monitor renal function and urine output. Preserved ejection fraction noted on echocardiogram. Follow-up outpatient 1 to 2 weeks postdischarge.
[2024-03-12 11:39] LABS: Glucose,Whole Blood 209 mg/dL (70-110)
[2024-03-12] MEDS: DAPAGLIFLOZIN PROPANEDIOL 10 MG TABLET PO SCH (13:39)
--- NOTE | 2024-03-12 14:10 | P.PN ---
Subjective Progress Note Date: 03/12/24 HISTORY OF PRESENTING ILLNESS 83-year-old with past medical history of paroxysmal atrial fibrillation, hypertension, dyslipidemia, CKD, chronic diastolic heart failure, last NSTEMI in October 2023 requiring heart cath showing 80% left main stenosis and mid LAD 60 to 70% stenosis with VOICE OVER ARTIST of LCx. She underwent PCI of left main into LAD. Patient has also had multiple hospital visits with A-fib RVR's past. There is also concern of noncompliance to medications. It is unclear if patient has been taking dual antiplatelet therapy since her PCI. This time patient presented to the hospital because of generalized weakness and fatigue and a fall. Apparently patient was found in the bathroom. Patient reported that she became severely lightheaded and could not get up from the sitting position in the bathroom commode. She was down for few hours before her son found her and called the EMS. On admission she was hypotensive and dehydrated along with atrial fibrillation with RVR. Her blood pressure was 80 over 60 mmHg. ECG showed atrial fibrillation with heart rate in the beats were minute, incomplete left bundle branch block with diffuse ST depressions Her labs showed NT proBNP of 18,000, troponin of 0.067, repeat 0.72. Creatinine 2.49, baseline creatinine 1.6 Chest x-ray did not show significant pulm congestion. Pelvic CT showed hypodensity seen in the urinary bladder may reflect blood byproducts. Echo July 2023: EF 55%, severe LVH, moderate MR, Echo February 2024, EF 65%, hyperdynamic LV, moderate LVH, no significant wall motion abnormality. March 06, 2024 Patient continues to have hematuria. It appears slightly better as compared to yesterday. Appears to have 20 to 30 cc/h urine output with slightly improved creatinine to 2.2 today. Hemoglobin is 7.8, platelet 351. She is s/p 2 units of blood transfusion 03/05/2024. Her echocardiogram showed an EF of 65 to 70%, small LV cavity, no significant valvular disease. On exam she reports having diarrhea. Reports feeling weak. Appears slightly dehydrated getting IV fluids. 03/07/2024 BP 92/62, heart rate 112 bpm, atrial fibrillation with RVR Hemoglobin 7.4. Yesterday it was 7.8. On admission 6.8. She is s/p unit blood transfusion since admission. Renal function has continued to improve, creatinine is 1.9 today. On admission 2.9. She has good urine output. Her hematuria has resolved. 03/08/2024 Patient continues to have significant diarrhea. Hemoglobin is stable. No further hematuria. Appropriate urine output with stable kidney function creatinine at 2 today. Yesterday 119 Patient's diarrhea is better after 1 dose of Imodium. Patient's hemoglobin is dropped to 6.5. Patient started having hematuria again. Will stop her Eliquis and Plavix. Will resume her on aspirin because of recent PCI. March 10, 2024 Blood pressure 107/59, heart rate 80 bpm, rafib rate controlled Patient's diarrhea has got better. She still has bright red urine concerning of hemorrhagic cystitis. She had 1 unit of blood transfusion done yesterday. In total she has got 3 units of blood transfusion since admission. March 11, 2024, BP 110/60, rate controlled afib, still having dark red urine, renal function is holding , no chest pain or shortness of breath. 03/12 Patient complains of dyspnea on exertion. No chest pain. She also complains of dizziness. Patient noted to have gross hematuria in Streeter catheter bag. Patient is scheduled for procedure today with Dr. Lawrence. Blood pressure 113/64, heart rate 117, pulse ox 100% on room air. Eliquis and Plavix are on hold. PHYSICAL EXAMINATION Head: Normocephalic. Eyes: Sclerae nonicteric. Neck: Brisk carotid upstroke, no jugular venous distention. Lungs: Bilateral rhonchi. Heart: irregular pulse, S1-S2, 2/6 systolic murmur . Abdomen: Soft nontender, positive bowel sounds. Extremities: 1+ edema in leg , non pitting Neuro: no focal deficits. Detailed neuro exam was not performed. ASSESSMENT Elevated troponin, likely type II NSTEMI in setting of BOLA, sepsis and anemia Acute on chronic systolic heart failure, CAD s/p PCI in October 2023. S/p PCI to left main into LAD 4 x 15 mm PRANAY Paroxysmal Atrial fibrillation. Currently Afib, Acute blood loss anemia due to hematuria s/p 2 U PRBC Severe sepsis BOLA on CKD, BOLA resolved. Hyperlipidemia Hypothyroidism Medication non compliance PLAN Continue patient on aspirin 81 mg. Eliquis and Plavix on hold due to hematuria Continue metoprolol 100 mg twice daily. Start patient on Farxiga 10 mg daily agree with placing iron stores with IV iron IV antibiotics Monitor renal function electrolytes Transfuse blood if hemoglobin less than 7. Appreciate urology recommendations on hematuria, and recommendations when to resume anticoagulation Nurse practitioner note has been reviewed, I agree with documented findings and plan of care. Patient was seen and examined. Objective - Vital Signs Vital signs: Vital Signs Temp 97.2 F L 03/12/24 08:00 Pulse 108 H 03/12/24 08:00 Resp 16 03/12/24 08:00 BP 144/82 03/12/24 08:00 Pulse Ox 100 03/12/24 08:00 FiO2 Intake & Output 03/11/24 03/12/24 03/12/24 18:59 06:59 18:59 Intake Total 480 150 356 Output Total 434 890 6450 Balance -370 -396 -453 Intake: Oral 480 150 356 Output: Urine 929 777 8190 Other: Voiding Method Indwelling Catheter Indwelling Catheter Indwelling Catheter # Bowel Movements 1 - Labs CBC & Chem 7: 03/11/24 06:41 03/11/24 06:41 Labs: Abnormal Lab Results - Last 24 Hours (Table) 03/11/24 03/12/24 Range/Units 20:09 06:18 POC Glucose (mg/dL) 179 H 129 H (70-110) mg/dL
--- NOTE | 2024-03-12 14:57 | P.PN ---
Subjective Progress Note Date: 03/12/24 Principal diagnosis: Acute urinary tract infection secondary to Klebsiella pneumoniae and hematuria Patient is a 83-year-old white female with past medical history significant for coronary artery disease with recent stent, valvular heart disease, atrial fibrillation anticoagulated on Eliquis, hypertension, diabetes mellitus, uterine cancer. Of note, patient had a recent hospitalization September, for non-ST elevation [place] and received a stent to the LAD. Patient presented to emergency room yesterday afternoon with a chief complaint of generalized weakness and fatigue and she had a fall. She was apparently in the bathroom where she went to get up and became lightheaded and fell. She states that her son was at work at this time, he found her when he came home. She was on the ground for a couple hours. States that she did hit her head and right chest. Did not have anything to eat or drink all day. Her son was the one that called 911. She states that over the last several days she has been generally weak. CT of the brain without contrast did not show any acute intracranial abnormality. There is atrophy and chronic microvessel ischemic white matter changes. While being evaluated by the ER room physician, she was noted to be hypotensive. She has been fluid resuscitated with 1 L of normal saline bolus, and currently has normal saline infusing at 130 MLS per hour. She does take midodrine outpatient. After the 1 L normal saline bolus, patient remained hypotensive, and my supervising physician recommended ICU monitoring. Patient is currently in the emergency department, room 7. She appears fairly comfortable. She is on room air. SpO2 100%. Blood pressure currently 85/61 mmHg. Heart rhythm appears to be atrial fibrillation with a rate of 118 bpm. Norepinephrine has not been started yet. She denies any radiating chest pain, there is some localized reproducible right-sided chest pain where she impacted on fall. Denies any heart palpitations or syncopal events. She has a pure wick suction catheter, there is presumed gross hematuria in the canister. She is not able to tell me how long this has been occurring for. She denies kidney stones. She is on Eliquis outpatient. Patient does admit to some continuous pelvic discomfort/ pressure. No flank pain. No burning with urination, no increased urinary frequency. She is chronically incontinent to urine. She has noted blood clots in her underwear. She has remote history of uterine cancer. She does not think this is vaginal bleeding. She received a dose of Rocephin in the emergency room for possible UTI. Urinalysis showing hina blood and WBCs. Culture is pending. She is afebrile. CBC without leukocytosis. Hemoglobin 8.8 g/dL, hematocrit 28.7. Platelets 471. CMP on arrival: Sodium 130, potassium 3.3, chloride 98, serum bicarb 23, BUN 54, creatinine 2.72, glucose 275. Lactic acid originally 3.1 and down to 1.7. LFTs not elevated. EKG done on arrival showed atrial fibrillation with a rate of [address] depressions in the lateral leads. Troponin less than 0.012. NT proBNP 19,900. Chest x-ray shows stable cardiac silhouette, no pulmonary vascular congestion or edema, no acute infiltrates, no pleural effusions or pneumothoraces. She is going to be monitored in the intensive care unit, and transferred once bed available. On 03/06/2024, the patient continues to have hematuria although this has somewhat improved compared to yesterday. Urine output is still bloody and the intensity of the blood is less compared to yesterday. Noted the patient drop in hemoglobin yesterday down to 6.8 and she was given additional unit of packed RBC making a total of 2 units of packed RBC and hemoglobin is currently up to 7.8. She remains on normal saline at the rate of 130 cc an hour. The norepinephrine infusion was discontinued around 5:00 this morning. She is in atrial fibrillation. She is slightly tachycardic. Urine culture is showing gram-negat clay bacillus and the patient is currently on IV Rocephin. The WBC count is at 7.5, hemoglobin 7.8 and a platelet count of 351. Creatinine is improving is currently down to 2.2 again of 43, serum bicarb is at 17 with a sodium level of 135 and a potassium level of 3.4 and this needs to be replaced. The cortisol level is at 19.2. This was a random cortisol level. Echocardiogram was also done on 03/05/2024 revealing a ejection fraction of 65 to 70%, small LV cavity, mildly increased septal wall thickening, mild increase in the posterior wall thickening, no significant valvular abnormalities noted. Mild LVH. Noted the patient was given Kcentra yesterday. The patient is currently off antico agulation. 03/07/2024, the patient is being seen for a follow-up. Patient is doing well. The patient is not having any active hematuria at this point in time. The hematuria has subsided. She is currently on 4 L of oxygen by nasal cannula. She has been off norepinephrine since 5 AM this morning. IV fluids are currently at KVO. The patient however developed atrial fibrillation with rapid ventricular response 6 PM yesterday. Her lungs are also congested. Based on that, she was given a dose of Lasix in the morning. She is currently on a Cardizem drip running at 10 mg an hour. She remains calm and comfortable. No significant chest pain. The white count of 10.6 with a hemoglobin 7.4 and a platelet count of 345. BUN 33 with a creatinine of 1.98 and the sodium is at 137. Urine culture is positive for Klebsiella pneumonia. 03/08/2024, the patient is not having any hematuria. She was diagnosed having a Klebsiella pneumoniae urine tract infection with secondary hematuria and hemat uria has subsided. The patient remains on IV Rocephin. Hemodynamically stable on no pressors. Still on Cardizem drip which is running at 5 mg hour. She is also on Lopressor current dose of 50 mg p.o. twice a day. Anticoagulation was restarted by the medical group and the patient is currently on Eliquis 2.5 mg p.o. twice a day. She remains on oxygen and she is currently on 2 L nasal cannula. Some limited cough and congestion. Chest x-ray was done and showed improving interstitial pattern which was attribute to pulmonary vascular congestion/venous congestion and a stable tiny left lower lobe effusion. Otherwise, no other new complaints. Tolerating diet. No chest pain. the patient is still having hematuria on today's evaluation on 03/09/2024, the patient is having hematuria. Noted aspirin and Eliquis was restarted back by cardiology. As such, the patient developed hematuria and the medications were essentially discontinued. Hemoglobin dropped down to 6.5 and the patient is going to be receiving 1 unit of packed RBC. She is also having some liquid diarrhea. Will check stool for C. difficile. The patient remains in atrial fibrillation. She remains quite tachycardic and she is currently on metoprolol 50 mg p.o. 3 times daily. Will add Cardizem for better rate control. The patient remains on IV Rocephin. White cell count is 7.2, platelet count 273, creatinine is down to 1.89 with a BUN of 31 and a sodium levels of 133. No other significant events overnight. She is awake and alert and communicating. No signs of any significant respiratory distress. Chest x-ray findings were stable and improving. On today's evaluation of 03/10/2024, I am seeing the patient for a follow-up. Unfortunately, the patient continues to have hematuria. Urology is on the case. No plans for cystoscopy at this point in time and the patient is currently off anticoagulation. Repeat hemoglobin from today is down to 7.9. The white cell count is 7.3. The patient's renal function is stable with a BUN of 30 creatinine 1.8. Serum bicarb is at 20. The patient remains on oxygen on room air. No significant respiratory distress. No other complaints otherwise for now. She remains on IV Rocephin. Urology on the case. 03/11/2024, the patient is being seen for a follow-up. She is having some hematuria although urine output seems to be less bloody compared to yesterday. Hemoglobin is at 8.1 which is essentially stable compared to yesterday. Creatinine is also stable at 1.8. The patient is currently on room air oxygen. Urology on the case. The patient remains in atrial fibrillation. Rate is controlled and the patient is off Eliquis. Patient was reevaluated today on 03/12/2024, patient is complaining of some shortness of breath on exertion, no chest pain, no palpitations, continues to have hematuria, scheduled to have cystoscopy by urology today and clot evac uation. Patient is on room air, O2 saturation is 98%, does not seem to be in any form of distress. Patient had no labs today except for blood sugar of 209 and significantly elevated BNP level, her WBC count yesterday was 6.8 with a hemoglobin of 8.1, and relatively normal basic metabolic profile, BUN of 28 and creatinine of 1.87. Chest x-ray yesterday showed very minimal tiny left-sided pleural effusion otherwise unremarkable Objective - Vital Signs Vital signs: Vital Signs Temp 98.1 F 03/12/24 12:00 Pulse 117 H 03/12/24 13:59 Resp 17 03/12/24 12:00 BP 113/64 03/12/24 12:00 Pulse Ox 98 03/12/24 12:00 FiO2 Intake & Output 03/11/24 03/12/24 03/12/24 18:59 06:59 18:59 Intake Total 480 150 356 Output Total 991 009 6957 Balance -946 -200 -764 Intake: Oral 480 150 356 Output: Urine 600 064 2917 Other: Voiding Method Indwelling Catheter Indwelling Catheter Indwelling Catheter # Bowel Movements 1 - Exam GENERAL EXAM: revealed 83-year-old female in no distress, on room air, HEAD: Normocephalic and atraumatic EYES: Normal reaction of pupils, equal size. NOSE: Clear with pink turbinates. THROAT: No erythema or exudates. NECK: No masses, no JVD. CHEST: No chest wall deformity. LUNGS: Clear throughout no crackles rhonchi or wheezes CVS: Normal S1-S2, no S3 gallop. 2/6 systolic murmur throughout the precordium, irregular rhythm ABDOMEN: No hepatosplenomegaly, active bowel sounds, no guarding or rigidity. SKIN: No rashes, generalized pallor CENTRAL NERVOUS SYSTEM: Alert and oriented x 3 no gross deficit EXTREMITIES: Trace of bipedal edema - Labs CBC & Chem 7: 03/11/24 06:41 03/11/24 06:41 Labs: Abnormal Lab Results - Last 24 Hours (Table) 03/11/24 03/12/24 03/12/24 Range/Units 20:09 06:18 11:37 POC Glucose (mg/dL) 179 H 129 H 209 H (70-110) mg/dL Assessment and Plan Assessment: Impression: Acute urinary tract infection with hematuria and possible cystitis secondary to Klebsiella pneumonia infection. Acute blood loss anemia secondary to hematuria Severe dehydration and hypovolemia Acute on chronic kidney disease Chronic A-fib, on beta-blockers and on anticoagulation therapy Chronic microcytic, hypochromic anemia, received a total of 3 units of packed RBCs since admission Coronary artery disease, with recent PCI/stent to the LAD performed 10/28/2023 History of mild to moderate mitral regurgitation, preserved LV function History of diabetes mellitus, type II History of hypothyroidism Chronic kidney disease stage III History of hyperlipidemia Remote history of uterine CA Recommendation: Continue Rocephin Continue to monitor daily labs including hemoglobin hematocrit and transfuse for hemoglobin below 7 Urology is planning cystoscopy and clot evacuation today. Continue to hold Eliquis CT of the abdomen and pelvis was reviewed Continue to monitor renal profile on a daily basis IV fluids at KVO Will continue to Time with Patient: Less than 30
--- NOTE | 2024-03-12 15:20 | P.PN ---
Subjective Progress Note Date: 03/12/24 Continues to have gross hematuria this morning, has required 3 units of blood transfusion since admission for her gross hematuria Objective - Vital Signs Vital signs: Vital Signs Temp 98.6 F 03/12/24 15:03 Pulse 94 03/12/24 15:03 Resp 20 03/12/24 15:03 BP 124/68 03/12/24 15:03 Pulse Ox 99 03/12/24 15:03 FiO2 Intake & Output 03/11/24 03/12/24 03/12/24 18:59 06:59 18:59 Intake Total 480 150 356 Output Total 475 414 4753 Balance -587 -780 -778 Intake: Oral 480 150 356 Output: Urine 081 898 5221 Other: Voiding Method Indwelling Catheter Indwelling Catheter Indwelling Catheter # Bowel Movements 1 - Constitutional General appearance: Present: no acute distress - Gastrointestinal General gastrointestinal: Present: soft. Absent: distended, tenderness - Psychiatric Psychiatric: Present: A&O x's 3 - Labs CBC & Chem 7: 03/11/24 06:41 03/11/24 06:41 Labs: Abnormal Lab Results - Last 24 Hours (Table) 03/11/24 03/12/24 03/12/24 Range/Units 20:09 06:18 11:37 POC Glucose (mg/dL) 179 H 129 H 209 H (70-110) mg/dL Assessment and Plan Assessment: 83-year-old female with history of gross hematuria, is having persistent hematuria, has required 3 units of blood transfusion since admission. Discussed given the persistent hematuria at this point I do recommend a cystoscopy to completely evaluate the bladder, of note CT did on presentation did show evidence of clot burden within the bladder, no obvious upper tract disease. Discussed that based on the cystoscopy finding we will evacuate the clots, and if there is abnormality seen within the bladder then we will address that at the same setting. Risk benefit and rationale of surgery was discussed in detail OR for cystoscopy clot EVAC, possible TURBT, possible bilateral retrograde pyelograms
[2024-03-12] MEDS: DEXAMETHASONE SOD PHOSPHATE 4 MG/ML 1 ML VIAL IVP STA (15:26)
[2024-03-12] MEDS: METOCLOPRAMIDE 5 MG/ML 2 ML VIAL IVP STA (15:27)
[2024-03-12] MEDS: ONDANSETRON 4 MG/2 ML VIAL IVP STA (15:27)
[2024-03-12] MEDS: IV FLUID CONTINUATION 1,000 ML IV ONE (15:35)
[2024-03-12] MEDS: LACTATED RINGERS 1,000 ML BAG IV STA (15:37)
[2024-03-12] MEDS ORDERED: SUCCINYLCHOLINE CHLORIDE 200 MG/10 ML VIAL IV ONE (15:46)
[2024-03-12] MEDS ORDERED: LIDOCAINE 1% INJ 10MG/ML (20 ML MDV) ONE (15:46)
[2024-03-12] MEDS ORDERED: ceFAZolin 1 GM/50 ML BAG (PMX) ONE (15:46)
[2024-03-12] MEDS ORDERED: fentaNYL (PF) 50 MCG/ML 2 ML AMP ONE (15:46)
[2024-03-12] MEDS ORDERED: PHENYLEPHRINE-0.9% NACL SYG 1,000 MCG/10 ML SYRINGE ONE (15:46)
[2024-03-12] MEDS ORDERED: ETOMIDATE 2 MG/ML 10 ML VIAL ONE (15:46)
[2024-03-12] MEDS: IOPAMIDOL-370 100ML BTL MISCELLANE ONE ×2 (16:48)
--- NOTE | 2024-03-12 17:11 | P.OP ---
Date of Procedure: 03/12/24 Preoperative Diagnosis: Gross hematuria Postoperative Diagnosis: Same Procedure(s) Performed: Cystoscopy, clot evacuation, fulguration, bilateral retrograde pyelogram, bilateral ureteroscopy Implants: none Anesthesia: JESSIE Surgeon: Moo Lawrence Estimated Blood Loss (ml): 25 Pathology: none sent Condition: stable Disposition: PACU Indications for Procedure: 83-year-old female with history of gross hematuria, is having persistent hematuria, has required 3 units of blood transfusion since admission. Discussed given the persistent hematuria at this point I do recommend a cystoscopy to completely evaluate the bladder, of note CT did on presentation did show evidence of clot burden within the bladder, no obvious upper tract disease. Discussed that based on the cystoscopy finding we will evacuate the clots, and if there is abnormality seen within the bladder then we will address that at the same setting. Risk benefit and rationale of surgery was discussed in detail OR for cystoscopy clot EVAC, possible TURBT, possible bilateral retrograde pyelograms Operative Findings: Diffuse venous oozing throughout the bladder, no masses seen in the bladder, approximately 150 cc of clot was irrigated out of the bladder Description of Procedure: Patient brought to the operating room, general esthesia was induced. She was prepped and draped in sterile fashion placed in dorsolithotomy position. A cystoscope fitted through the 22 Lithuanian sheath was inserted per urethra, this point cystoscopy was performed showed diffuse clot burden within the bladder, using the ellick evacuator, approximately 150 cc of clot was irrigated out of the bladder, at this point repeat cystoscopy was performed which showed no masses seen within the bladder, there was diffuse venous oozing throughout the bladder that was visualized. At this point I switched to the bipolar resectoscope, resectoscope with a 25 Lithuanian sheath was inserted per urethra, areas of venous oozing was fulgurated using cautery. Repeat cystoscopy showed no evidence of bleeding or any additional clots in the bladder, at this point attention was carried to the retrograde pyelogram, cystoscope fitted with a 22 Lithuanian sheath was reinserted, the right ureter ureteral orifice was identified it was quite patulous, retrograde pyelogram was performed using a 6 Lithuanian open- ended catheter which showed dilated ureter down to the level of the UVJ, there was no filling defect along the course of the ureter or hydronephrosis, but the ureter was quite dilated. At this point I switched to a semirigid ureteroscope which was advanced through the bladder and up the right ureteral orifice, there was no evidence of obstruction at the UVJ as the ureter was wide open, and the ureteroscope was advanced all the way up to the UPJ which showed no tumors or abnormality along the course of the ureter but the ureter was quite dilated, pullback ureteroscopy was performed showed no injury to the ureter or any ureteral abnormality, at this point attention was carried to the left side, the cystoscope fitted through the 22 Lithuanian sheath was reinserted, the left ureter orifice was intubated with a 6 Lithuanian open-ended catheter and retrograde pyelogram was performed which showed similar to finding to the right side, the ureter was dilated down to the UVJ, but no filling defects were appreciated, at this time I performed ureteroscopy on that side also using the semirigid ureteroscope which was advanced per urethra and up the left ureteral orifice, the UVJ was evaluated which showed no abnormality or evidence of obstruction, the ureteroscope was advanced all the way up to the UPJ which showed no masses along the course of the ureter, there was pullback ureteroscopy was performed showed no injury to the ureter and or any ureteral masses, at this point a 22 Lithuanian Streeter was placed with return of clear urine, the patient was started on a slow rate CBI. At this point we will hold anticoagulation continue with CBI
--- NOTE | 2024-03-12 17:26 | FL ---
EXAMINATION TYPE: FL urography retrograde Intraoperative/procedural fluoroscopic services were provid ed. Total fluoroscopy time is 45.7 seconds with a total of 3 submitted images to PACS. Please see the operative/procedural note for further details. DAP: 5.2957 Gycm2
--- NOTE | 2024-03-12 17:59 | P.PN ---
Subjective Progress Note Date: 03/12/24 Principal diagnosis: Reason for follow-up is complicated UTI Patient is a 83-year-old male for diabetes mellitus hypertension atrial fibrillation brought to the hospital for evaluation of generalized weakness fatigue lightheadedness low blood pressure patient noticed to have significant hematuria and concern for complicated UTI. On today's evaluation that is 03/12/2024, the patient continues to be afebrile, the patient is on room air and breathing comfortably, the Pt denies having any chest pain however has been complaining of a congested cough but not bring up any sputum, the patient denies having any abdominal pain no vomiting or any diarrhea still having significant hematuria with a Streeter catheter in place. Patient did have a magnesium of 2.2 no CBC was done today blood culture has been negative Objective - Vital Signs Vital signs: Vital Signs Temp 97.2 F L 03/12/24 08:00 Pulse 108 H 03/12/24 08:00 Resp 16 03/12/24 08:00 BP 144/82 03/12/24 08:00 Pulse Ox 100 03/12/24 08:00 FiO2 Intake & Output 03/11/24 03/12/24 03/12/24 18:59 06:59 18:59 Intake Total 480 150 356 Output Total 711 204 2005 Balance -943 -655 -106 Intake: Oral 480 150 356 Output: Urine 622 590 1159 Other: Voiding Method Indwelling Catheter Indwelling Catheter Indwelling Catheter # Bowel Movements 1 - Exam GENERAL DESCRIPTION: An elderly female lying in bed in no distress RESPIRATORY SYSTEM: Unlabored breathing , decreased breath sounds at bases HEART: S1 S2 regular rate and rhythm , ABDOMEN: Soft , no tenderness - Labs CBC & Chem 7: 03/11/24 06:41 03/11/24 06:41 Labs: Abnormal Lab Results - Last 24 Hours (Table) 03/11/24 03/12/24 03/12/24 Range/Units 20:09 06:18 11:37 POC Glucose (mg/dL) 179 H 129 H 209 H (70-110) mg/dL Assessment and Plan (1) UTI (urinary tract infection) Current Visit: Yes Status: Acute Code(s): N39.0 - URINARY TRACT INFECTION, SITE NOT SPECIFIED SNOMED Code(s): 72696619 Plan: 1patient presented to hospital with weakness not feeling well patient was hypotensive noticed to have hematuria with abnormal renal ultrasound concerning for mass versus clot in the urinary bladder did have a positive UA concerning for symptomatic urinary tract infection. 2patient with renal insufficiency and high risk of nephrotoxicity. 3patient urine has been finalized with Klebsiella that is sensitive to ceftriaxone 4- patient is afebrile and the patient white count has normalized patient to continue with Rocephin currently waiting for cystoscopy apparently scheduled for this afternoon Dictation was produced using [employer] dictation software. please excuse any grammatical, word or spelling errors. Time with Patient: Less than 30
[2024-03-12 20:06] LABS: Glucose,Whole Blood 223 mg/dL (70-110)
[2024-03-12] MEDS: SODIUM CHLORIDE 0.9% IRRIGATIO 3,000 ML IRRIGATION ONE (20:06)
--- NOTE | 2024-03-13 05:33 | P.PN ---
Subjective Progress Note Date: 03/12/24 HISTORY OF PRESENT ILLNESS: 83-year-old office patient with active medical history of Paroxysmal atrial fibrillation was on anticoagulation, history of hypertension, hyperlipidemia, stage III chronic kidney disease, chronic diastolic congestive heart failure, who also had recently history of non-ST NV with heart cath showed CAD including left main at 80% stenosis with mild LAD at 60 to 70% stenosis with circumflex 100% stenosis ended up having PCI of the left main and LAD, patient had multiple visits to the emergency department last few months with recurrent A-fib with RVR with similar claimed that she ran out of medication, she stopped taking medication a week ago, and many other. Sadly since her angioplasty and stent placement and the harm of not being on dual antiplatelet agent and her current medications extremely dangerous despite explaining this to the patient it looks like this event keep happening. She was hospitalized again in November for A-fib with RVR along with elevated troponin and anemia. She has been complaining of generalized weakness and fatigue post fall she apparently found in the bathroom developed severe lightheadedness and fell her son found her after work she was down for total hours she hit her head and right chest area has not had anything to eat or drink all day Call 911 patient brought to the emergency department at [facility] CT of the brain without contrast did not show any acute abnormality there is atrophy and microvascular finding. Found to be extremely hypertensive she was giving 1 L of IV saline and continue with 130 cc an hour she remained quite hypotensive she had anemia as well and found to be in A-fib with pulse rate running 110 beats per minutes her blood pressure still 80/60 she was started on vasopressor with norepinephrine was not having any chest pain or tightness at her proBNP was 18,800 with mildly elevated troponin. Her urine shows gross hematuria and has been having apparently problem with burning discomfort in bloody urine. She is on Eliquis for A-fib with RVR so she is on 2 Plavix since her angioplasty and stent early. 2 g of Rocephin was giving culture was done for blood and urine her hemoglobin initially was 8.8 and within few hours dropped down to 6 with hydration patient does not have any visual active GI bleed her BUN 54 creatinine 2.72 much worse than before lactic acid at 3.1. Patient was transferred to the ICU continue hydration, vasopressor, process for blood transfusion to be done. 03/06/2024: Continue to have gross hematuria causing more anemia despite a blood transfusion. Urology seen the patient and believe this is hemorrhagic cystitis aggravated by anticoagulation and they are recommending to irrigate the catheter when necessary still waiting for the urine culture to be finalized in the meanwhile she has remained on Rocephin 2 g daily. She is off vasopressor currently hemoglobin is up to 7.8. 2 unit of packed red cell transfusion. White blood cell is down 7.5 with normal platelet and creatinine improve down to 2.2 with bun of 43. Echocardiogram showed ejection fraction well-preserved with no significant valvular abnormality but mild left ventricular hypertrophy. Patient remain off anticoagulation and was giving 1 dose of Kcentra yesterday still holding on Eliquis and Plavix with cardiology restarted aspirin 81 mg a day. 03/07/2024: Continue to be on 4 L of oxygen to keep her pulse ox above 90 percentile, she had A-fib with RVR with significant worsening congestion of the lung consistent with more heart failure at this point. Started on Cardizem drip 10 mg an hour with her pulse remained above 100, hemoglobin still at 7.4 with normal platelet count creatinine 1.98 still been treated for urine positive for Klebsiella pneumonia with IV antibiotics at this point. Continue to have significant amount of hematuria mostly hemorrhagic cystitis and urology believe he can wait on doing cystoscopy to when she is stable as an outpatient. The kidney function slightly better still seen nephrology discussed that to be acute tubular necrosis nonoliguric secondary to hypotension anemia and sepsis to continue IV continue to treat UTI with no evidence of obstruction. 03/08/2024: Urine culture was positive for Klebsiella pneumonia which patient is responding well to IV Rocephin currently, hemodynamically become more stable, her hematuria has been much better and still having twinges of blood in the catheter. Respiratory failure [place] she is require between 2 and 3 L of O2 to keep her pulse ox above 90 percentile. She is still on Cardizem drip 5 mg an hour to keep pulse under 90 bpm also on Lopressor 50 mg twice a day and still on Eliquis 2.5 mg twice a day. Patient had slight pleural effusion advance diet mobility still significantly decreased and limited to bedrest currently. Nephrology wants her creatinine is down to 2.0 with GFR slightly bit better, continue hydration despite expansion of fluid overload causing more problem at this point. Hoping her creatinine will be down to its baseline before this happened. From cardiology standpoint ejection fraction on echo was well-preserved at 65-70 percentile with no significant valvular heart disease. Cardizem apparently is going to be stopped at some point soon try to monitor her pulse below 90 possible. 03/09/2024: Remain in ICU hemoglobin dropped down again to 6.5 blood transfusion process start again. Respiratory status is slightly better remain on 2 L of O2 at this point. She is still tachycardic running pulse rate around 100 2230 bpm despite being on metoprolol adding Cardizem for better pulse rate control. Her kidney function is better currently with creatinine down to 1.89, urology has no interest in doing cystoscopy at this point he still having a twinge of hematuria but not gross hematuria like before. After transfusions completed patient should be able to leave the ICU today cardiac floor on property assessment monitor. 03/12/2024: She was transferred out of the ICU on the weekend continue to be kirk kam and managed for severe hematuria with severe anemia, her hemoglobin is up to 8.1 does not require any further blood transfusion, stage IIIb chronic kidney disease with creatinine subtle around 1.87 no blood drawn done this morning yet awaiting for the result. Her hemorrhagic cystitis has been treated with Rocephin culture shows Klebsiella pneumonia susceptible to many antibiotics. Catheter can be probably removed in the next 24 hours and prepare for patient might benefit from going to SNF specially after being sick not able to move for several days. Neurology came back with confusion today with 3 and a blood transfusion because of the severity of the hematuria and with persistent of hematuria for the last several days agreed to do cystoscopy and fulguration and probably remove clot f rom her bladder which will help to clear the hematuria a lot faster. REVIEW OF SYSTEMS: CONSTITUTIONAL: Well-developed in no respiratory distress. EYES: No icterus sclerae, no conjunctivitis. EARS, NOSE, MOUTH, THROAT, and FACE: No sore throat, lymphadenopathy, carotid bruits or deformity. RESPIRATORY: Mild shortness of breath and dyspnea with no cough or wheezes. CARDIOVASCULAR: Positive palpitation and A-fib with no angina positive PND and orthopnea. GASTROINTESTINAL: No Abd pain, Nausea or vomiting, no Diarrhea or constipation, No GI Bleed, no distention or masses. GENITOURINARY: Negative for Hematuria or UTI, no kidney stones. INTEGUMENT/BREAST: Negative for any muscular injury with mild osteoarthritis.. HEMATOLOGIC/LYMPHATIC: Negative for bleed or purpura. MUSCULOSKELTAL: Negative for Myalgia or arthralgia. NEURLOGICAL: No LOC, Sz or syncope, blurred vision dizziness or abnormality.. BEHAVIORAL/PSYCH: Negative. ENDOCRINE: Negative. PHYSICAL EXAMINATION: General Appearance: Alert, cooperative, mild distress. Neck HEENT: Supple, no lymphadenopathy, no thyroid enlargement, no carotid bruits. Lungs: Decreased expansion bilaterally with fine rhonchi positive mild rhonchi but no wheezes. Chest Wall: Decreased expansion with deep inspiration no tenderness and no deformity was found on exam, no costochondral pain or discomfort. Heart: Irregular rate and rhythm, S1, S2 positive severe tachycardia positive ejection murmur. Back: Symmetric, no curvature, ROM normal, no CVA tenderness. Abdomen: Soft, non-tender, bowel sounds active all four quadrants, no masses, no organomegaly. Extremities: Trace edema without cyanotic. Pulses: 2+ and symmetric. Skin: Skin color, texture, tugor normal, no rashes or lesions. Neurologic: Alert oriented with slight confusion. Cranial nerves II through XII intact, no motor deficit, no abnormal balance or gait. ASSESSMENT AND PLAN: _Sepsis: Much better so far and was treated for Klebsiella pneumonia bacteria still on Rocephin. _Severe hematuria, most likely from hemorrhagic cystitis, bleeding is slightly better but still passing clots every so often, urology hopefully by doing cystoscopy fulguration and probably clear the clot from the bladder will help her hematuria significantly will make the possibility of removing her catheter after 24 to 48 hours a lot more possible. _A-fib with RVR pulse rates not well-controlled remain on metoprolol and Cardizem currently. Pulse rate running in the 90s. She is back to oral metoprolol only. _Acute kidney injury on chronic kidney disease: Still see nephrology no need for any hemodialysis still in stage IIIb chronic kidney disease. _Acute blood loss anemia: Several units of blood transfusion continue iron supplement no need for any more transfusion. _Acute systolic congestive heart failure with known coronary artery disease patient is still quite symptomatic will benefit from continued diuretic specially if we can slow down on too much IV fluid. _Possible non-ST NV with elevated troponin's, slightly abnormal EKG known history of myocardial infarction, patient be seen cardiology CK troponin x 3 will be done. _Atherosclerotic heart disease: Post PCI and stent placement from October has been seeing cardiology she needs more assurance probably family need to be more involved making sure she is taking her medication on time and that she does not run out of medication. Consult cardiology holding off on antiplatelet agent for now because of the bleed. Apparently was started on 1 baby aspirin for now. _Type 2 diabetes: Blood sugar is much better so far continue coverage continue Jardiance as well. Blood sugars doing much better so far. _Hyperlipidemia: Continue atorvastatin 20 mg a day. _Hypothyroidism: Continue levothyroxine 25 mcg daily. _GI prophylaxis: Will be on pantoprazole 40 mg daily. CODE STATUS: Full code. Discussion: Hemoglobin is much better, she is out of the ICU doing well she still on Rocephin urology today are planning to do cystoscopy fulguration and probably clear the clot from the bladder. Objective - Vital Signs Vital signs: Vital Signs Temp 97.4 F L 03/12/24 03:14 Pulse 90 03/12/24 03:14 Resp 16 03/12/24 03:14 BP 139/70 03/12/24 03:14 Pulse Ox 100 03/12/24 03:14 FiO2 Intake & Output 03/11/24 03/11/24 03/12/24 06:59 18:59 06:59 Intake Total 480 150 Output Total 1700 850 350 Balance -1700 -370 -200 Intake: Oral 480 150 Output: Urine 1700 850 350 Other: Voiding Method Indwelling Catheter Indwelling Catheter Indwelling Catheter # Bowel Movements 1 1 - Labs CBC & Chem 7: 03/11/24 06:41 03/11/24 06:41 Labs: Abnormal Lab Results - Last 24 Hours (Table) 03/11/24 03/11/24 03/11/24 Range/Units 06:41 06:41 20:09 RBC 2.93 L (3.80-5.40) m/uL Hgb 8.1 L (11.4-16.0) gm/dL Hct 25.6 L (34.0-46.0) % RDW 19.8 H (11.5-15.5) % Sodium 136 L (137-145) mmol/L Chloride 112 H (98-107) mmol/L Carbon Dioxide 21 L (22-30) mmol/L BUN 28 H (7-17) mg/dL Creatinine 1.87 H (0.52-1.04) mg/dL POC Glucose (mg/dL) 179 H (70-110) mg/dL Calcium 7.4 L (8.4-10.2) mg/dL Total Protein 4.9 L (6.3-8.2) g/dL Albumin 2.0 L (3.5-5.0) g/dL
[2024-03-13 05:45] LABS: Glucose,Whole Blood 241 mg/dL (70-110)
[2024-03-13] MEDS: ATORVASTATIN 40 MG TAB PO SCH (08:31)
[2024-03-13 11:05] LABS: Anisocytosis Moderate; HGB 8.4 gm/dL (11.4-16.0); Hypochromasia Moderate; MCH 27.8 pg (25.0-35.0); MCV 89.5 fL (80.0-100.0); Macrocytosis Slight; Mean Platelet Volume 7.5; Platelet Count 367 k/uL (150-450); Poikilocytosis Moderate; RBC 3.02 m/uL (3.80-5.40); RDW 20.9 % (11.5-15.5); WBC 8.7 k/uL (3.8-10.6)
[2024-03-13 11:20] LABS: ALT 12 U/L (4-34); AST 18 U/L (14-36); African American GFR (CKD) 29 (>60 ml/min/1.73 sqM); Albumin 2.4 g/dL (3.5-5.0); Alkaline Phosphatase 114 U/L (38-126); Anion Gap 6 mmol/L; Blood Urea Nitrogen 34 mg/dL (7-17); Calcium 7.7 mg/dL (8.4-10.2); Carbon Dioxide 21 mmol/L (22-30); Chloride 110 mmol/L (98-107); Glucose 207 mg/dL (74-99); Magnesium 2.1 mg/dL (1.6-2.3); Non-African American GFR(CKD) 25 (>60 ml/min/1.73 sqM); Potassium 4.3 mmol/L (3.5-5.1); Sodium 137 mmol/L (137-145); Total Bilirubin 0.2 mg/dL (0.2-1.3); Total Protein 5.4 g/dL (6.3-8.2)
--- NOTE | 2024-03-13 11:34 | P.PN ---
Subjective Patient is seen in follow-up for chronic kidney disease. Renal function stable. Hematuria clearing up. Oral intake fair. Denies chest pain or shortness of breath. Vital signs are stable. General: No acute distress. HEENT: Head exam is unremarkable. LUNGS: No audible rhonchi or wheezes. HEART: Rate and Rhythm are regular. ABDOMEN: Nontender. EXTREMITITES: No edema. Objective - Vital Signs Vital signs: Vital Signs Temp 97.4 F L 03/13/24 08:30 Pulse 103 H 03/13/24 08:30 Resp 17 03/13/24 08:30 BP 120/79 03/13/24 08:30 Pulse Ox 94 L 03/13/24 08:30 FiO2 Intake & Output 03/12/24 03/13/24 03/13/24 18:59 06:59 18:59 Intake Total 906 618 Output Total 1600 3250 1200 Balance -694 -3250 -582 Intake: IV 550 Oral 356 618 Output: Urine 1600 3250 1200 Other: Voiding Method Indwelling Catheter Indwelling Catheter Indwelling Catheter # Bowel Movements 1 - Labs CBC & Chem 7: 03/13/24 10:17 03/13/24 10:17 Labs: Abnormal Lab Results - Last 24 Hours (Table) 03/12/24 03/12/24 03/13/24 Range/Units 11:37 20:05 05:43 RBC (3.80-5.40) m/uL Hgb (11.4-16.0) gm/dL Hct (34.0-46.0) % RDW (11.5-15.5) % Chloride (98-107) mmol/L Carbon Dioxide (22-30) mmol/L BUN (7-17) mg/dL Creatinine (0.52-1.04) mg/dL Glucose (74-99) mg/dL POC Glucose (mg/dL) 209 H 223 H 241 H (70-110) mg/dL Calcium (8.4-10.2) mg/dL Total Protein (6.3-8.2) g/dL Albumin (3.5-5.0) g/dL 03/13/24 03/13/24 Range/Units 10:17 10:17 RBC 3.02 L (3.80-5.40) m/uL Hgb 8.4 L (11.4-16.0) gm/dL Hct 27.0 L (34.0-46.0) % RDW 20.9 H (11.5-15.5) % Chloride 110 H (98-107) mmol/L Carbon Dioxide 21 L (22-30) mmol/L BUN 34 H (7-17) mg/dL Creatinine 1.85 H (0.52-1.04) mg/dL Glucose 207 H (74-99) mg/dL POC Glucose (mg/dL) (70-110) mg/dL Calcium 7.7 L (8.4-10.2) mg/dL Total Protein 5.4 L (6.3-8.2) g/dL Albumin 2.4 L (3.5-5.0) g/dL Assessment and Plan Plan: Assessment: 1. Acute kidney injury secondary to ATN secondary to hypotension and acute blood loss anemia. No obstruction noted on imaging. Creatinine was 2.72 on admission and stable at 1.85 today. 2. Chronic kidney disease stage IIIb with baseline creatinine 1.6-1.8. 3. Klebsiella UTI on antibiotics. 4. Acute blood loss anemia with gross hematuria secondary to hemorrhagic cyst itis. Urology following. Hemoglobin stable. 5. Metabolic acidosis secondary to chronic kidney disease. Plan: Encouraged oral intake. Avoid nephrotoxins. Continue to monitor renal function and urine output. Preserved ejection fraction noted on echocardiogram. Check iron studies. Follow-up outpatient 1 to 2 weeks postdischarge.
[2024-03-13 11:37] LABS: Glucose,Whole Blood 225 mg/dL (70-110)
--- NOTE | 2024-03-13 13:21 | P.PN ---
Subjective Progress Note Date: 03/13/24 Principal diagnosis: Acute urinary tract infection secondary to Klebsiella pneumoniae and hematuria Patient is a 83-year-old white female with past medical history significant for coronary artery disease with recent stent, valvular heart disease, atrial fibrillation anticoagulated on Eliquis, hypertension, diabetes mellitus, uterine cancer. Of note, patient had a recent hospitalization September, for non-ST elevation NM and received a stent to the LAD. Patient presented to emergency room yesterday afternoon with a chief complaint of generalized weakness and fatigue and she had a fall. She was apparently in the bathroom where she went to get up and became lightheaded and fell. She states that her son was at work at this time, he found her when he came home. She was on the ground for a couple hours. States that she did hit her head and right chest. Did not have anything to eat or drink all day. Her son was the one that called 911. She states that over the last several days she has been generally weak. CT of the brain without contrast did not show any acute intracranial abnormality. There is atrophy and chronic microvessel ischemic white matter changes. While being evaluated by the ER room physician, she was noted to be hypotensive. She has been fluid resuscitated with 1 L of normal saline bolus, and currently has normal saline infusing at 130 MLS per hour. She does take midodrine outpatient. After the 1 L normal saline bolus, patient remained hypotensive, and my supervising physician recommended ICU monitoring. Patient is currently in the emergency department, room 7. She appears fairly comfortable. She is on room air. SpO2 100%. Blood pressure currently 85/61 mmHg. Heart rhythm appears to be atrial fibrillation with a rate of 118 bpm. Norepinephrine has not been started yet. She denies any radiating chest pain, there is some localized reproducible right-sided chest pain where she impacted on fall. Denies any heart palpitations or syncopal events. She has a pure wick suction catheter, there is presumed gross hematuria in the canister. She is not able to tell me how long this has been occurring for. She denies kidney stones. She is on Eliquis outpatient. Patient does admit to some continuous pelvic discomfort/ pressure. No flank pain. No burning with urination, no increased urinary frequency. She is chronically incontinent to urine. She has noted blood clots in her underwear. She has remote history of uterine cancer. She does not think this is vaginal bleeding. She received a dose of Rocephin in the emergency room for possible UTI. Urinalysis showing hina blood and WBCs. Culture is pending. She is afebrile. CBC without leukocytosis. Hemoglobin 8.8 g/dL, hematocrit 28.7. Platelets 471. CMP on arrival: Sodium 130, potassium 3.3, chloride 98, serum bicarb 23, BUN 54, creatinine 2.72, glucose 275. Lactic acid originally 3.1 and down to 1.7. LFTs not elevated. EKG done on arrival showed atrial fibrillation with a rate of [address] depressions in the lateral leads. Troponin less than 0.012. NT proBNP 19,900. Chest x-ray shows stable cardiac silhouette, no pulmonary vascular congestion or edema, no acute infiltrates, no pleural effusions or pneumothoraces. She is going to be monitored in the intensive care unit, and transferred once bed available. On 03/06/2024, the patient continues to have hematuria although this has somewhat improved compared to yesterday. Urine output is still bloody and the intensity of the blood is less compared to yesterday. Noted the patient drop in hemoglobin yesterday down to 6.8 and she was given additional unit of packed RBC making a total of 2 units of packed RBC and hemoglobin is currently up to 7.8. She remains on normal saline at the rate of 130 cc an hour. The norepinephrine infusion was discontinued around 5:00 this morning. She is in atrial fibrillation. She is slightly tachycardic. Urine culture is showing gram-negat clay bacillus and the patient is currently on IV Rocephin. The WBC count is at 7.5, hemoglobin 7.8 and a platelet count of 351. Creatinine is improving is currently down to 2.2 again of 43, serum bicarb is at 17 with a sodium level of 135 and a potassium level of 3.4 and this needs to be replaced. The cortisol level is at 19.2. This was a random cortisol level. Echocardiogram was also done on 03/05/2024 revealing a ejection fraction of 65 to 70%, small LV cavity, mildly increased septal wall thickening, mild increase in the posterior wall thickening, no significant valvular abnormalities noted. Mild LVH. Noted the patient was given Kcentra yesterday. The patient is currently off antico agulation. 03/07/2024, the patient is being seen for a follow-up. Patient is doing well. The patient is not having any active hematuria at this point in time. The hematuria has subsided. She is currently on 4 L of oxygen by nasal cannula. She has been off norepinephrine since 5 AM this morning. IV fluids are currently at KVO. The patient however developed atrial fibrillation with rapid ventricular response 6 PM yesterday. Her lungs are also congested. Based on that, she was given a dose of Lasix in the morning. She is currently on a Cardizem drip running at 10 mg an hour. She remains calm and comfortable. No significant chest pain. The white count of 10.6 with a hemoglobin 7.4 and a platelet count of 345. BUN 33 with a creatinine of 1.98 and the sodium is at 137. Urine culture is positive for Klebsiella pneumonia. 03/08/2024, the patient is not having any hematuria. She was diagnosed having a Klebsiella pneumoniae urine tract infection with secondary hematuria and hemat uria has subsided. The patient remains on IV Rocephin. Hemodynamically stable on no pressors. Still on Cardizem drip which is running at 5 mg hour. She is also on Lopressor current dose of 50 mg p.o. twice a day. Anticoagulation was restarted by the medical group and the patient is currently on Eliquis 2.5 mg p.o. twice a day. She remains on oxygen and she is currently on 2 L nasal cannula. Some limited cough and congestion. Chest x-ray was done and showed improving interstitial pattern which was attribute to pulmonary vascular congestion/venous congestion and a stable tiny left lower lobe effusion. Otherwise, no other new complaints. Tolerating diet. No chest pain. the patient is still having hematuria on today's evaluation on 03/09/2024, the patient is having hematuria. Noted aspirin and Eliquis was restarted back by cardiology. As such, the patient developed hematuria and the medications were essentially discontinued. Hemoglobin dropped down to 6.5 and the patient is going to be receiving 1 unit of packed RBC. She is also having some liquid diarrhea. Will check stool for C. difficile. The patient remains in atrial fibrillation. She remains quite tachycardic and she is currently on metoprolol 50 mg p.o. 3 times daily. Will add Cardizem for better rate control. The patient remains on IV Rocephin. White cell count is 7.2, platelet count 273, creatinine is down to 1.89 with a BUN of 31 and a sodium levels of 133. No other significant events overnight. She is awake and alert and communicating. No signs of any significant respiratory distress. Chest x-ray findings were stable and improving. On today's evaluation of 03/10/2024, I am seeing the patient for a follow-up. Unfortunately, the patient continues to have hematuria. Urology is on the case. No plans for cystoscopy at this point in time and the patient is currently off anticoagulation. Repeat hemoglobin from today is down to 7.9. The white cell count is 7.3. The patient's renal function is stable with a BUN of 30 creatinine 1.8. Serum bicarb is at 20. The patient remains on oxygen on room air. No significant respiratory distress. No other complaints otherwise for now. She remains on IV Rocephin. Urology on the case. 03/11/2024, the patient is being seen for a follow-up. She is having some hematuria although urine output seems to be less bloody compared to yesterday. Hemoglobin is at 8.1 which is essentially stable compared to yesterday. Creatinine is also stable at 1.8. The patient is currently on room air oxygen. Urology on the case. The patient remains in atrial fibrillation. Rate is controlled and the patient is off Eliquis. Patient was reevaluated today on 03/12/2024, patient is complaining of some shortness of breath on exertion, no chest pain, no palpitations, continues to have hematuria, scheduled to have cystoscopy by urology today and clot evac uation. Patient is on room air, O2 saturation is 98%, does not seem to be in any form of distress. Patient had no labs today except for blood sugar of 209 and significantly elevated BNP level, her WBC count yesterday was 6.8 with a hemoglobin of 8.1, and relatively normal basic metabolic profile, BUN of 28 and creatinine of 1.87. Chest x-ray yesterday showed very minimal tiny left-sided pleural effusion otherwise unremarkable Patient was evaluated today on 03/13/2024, feeling better, no further episodes of hematuria, patient was seen by urology yesterday, underwent cystoscopy and clot evaluation. No evidence of malignancy involving the urinary bladder, patient was noted to have diffuse oozing and felt to be more of a picture of cystitis/infection. WBC count is 8.7 hemoglobin 8.4 basic metabolic profile is normal BUN is 34 creatinine 1.85, her renal functioning is being addressed by nephrology, patient developed acute kidney injury secondary to ATN secondary to hypotension and acute blood loss. No evidence of obstructive uropathy Objective - Vital Signs Vital signs: Vital Signs Temp 97.4 F L 03/13/24 08:30 Pulse 103 H 03/13/24 08:30 Resp 17 03/13/24 08:30 BP 120/79 03/13/24 08:30 Pulse Ox 94 L 03/13/24 08:30 FiO2 Intake & Output 03/12/24 03/13/24 03/13/24 18:59 06:59 18:59 Intake Total 906 618 Output Total 1600 3250 1200 Balance -694 -3250 -582 Weight 68.7 kg Intake: IV 550 Oral 356 618 Output: Urine 1600 3250 1200 Other: Voiding Method Indwelling Catheter Indwelling Catheter Indwelling Catheter # Bowel Movements 1 - Exam GENERAL EXAM: revealed 83-year-old female in no distress, on room air, HEAD: Normocephalic and atraumatic EYES: Normal reaction of pupils, equal size. NOSE: Clear with pink turbinates. THROAT: No erythema or exudates. NECK: No masses, no JVD. CHEST: No chest wall deformity. LUNGS: Clear throughout no crackles rhonchi or wheezes CVS: Normal S1-S2, no S3 gallop. 2/6 systolic murmur throughout the precordium, irregular rhythm ABDOMEN: No hepatosplenomegaly, active bowel sounds, no guarding or rigidity. SKIN: No rashes, generalized pallor CENTRAL NERVOUS SYSTEM: Alert and oriented x 3 no gross deficit EXTREMITIES: Trace of bipedal edema - Labs CBC & Chem 7: 03/13/24 10:17 03/13/24 10:17 Labs: Abnormal Lab Results - Last 24 Hours (Table) 03/12/24 03/13/24 03/13/24 Range/Units 20:05 05:43 10:17 RBC 3.02 L (3.80-5.40) m/uL Hgb 8.4 L (11.4-16.0) gm/dL Hct 27.0 L (34.0-46.0) % RDW 20.9 H (11.5-15.5) % Chloride (98-107) mmol/L Carbon Dioxide (22-30) mmol/L BUN (7-17) mg/dL Creatinine (0.52-1.04) mg/dL Glucose (74-99) mg/dL POC Glucose (mg/dL) 223 H 241 H (70-110) mg/dL Calcium (8.4-10.2) mg/dL Total Protein (6.3-8.2) g/dL Albumin (3.5-5.0) g/dL 24 03/13/24 Range/Units 10:17 11:35 RBC (3.80-5.40) m/uL Hgb (11.4-16.0) gm/dL Hct (34.0-46.0) % RDW (11.5-15.5) % Chloride 110 H (98-107) mmol/L Carbon Dioxide 21 L (22-30) mmol/L BUN 34 H (7-17) mg/dL Creatinine 1.85 H (0.52-1.04) mg/dL Glucose 207 H (74-99) mg/dL POC Glucose (mg/dL) 225 H (70-110) mg/dL Calcium 7.7 L (8.4-10.2) mg/dL Total Protein 5.4 L (6.3-8.2) g/dL Albumin 2.4 L (3.5-5.0) g/dL Assessment and Plan Assessment: Impression: Acute urinary tract infection with hematuria and possible cystitis secondary to Klebsiella pneumonia infection. Acute blood loss anemia secondary to hematuria Severe dehydration and hypovolemia Acute on chronic kidney disease Chronic A-fib, on beta-blockers and on anticoagulation therapy Chronic microcytic, hypochromic anemia, received a total of 3 units of packed RBCs since admission Coronary artery disease, with recent PCI/stent to the LAD performed 10/28/2023 History of mild to moderate mitral regurgitation, preserved LV function History of diabetes mellitus, type II History of hypothyroidism Chronic kidney disease stage III History of hyperlipidemia Remote history of uterine CA Recommendation: Continue Rocephin, 2 g every 24 hours. Continue to monitor daily labs including hemoglobin hematocrit and transfuse for hemoglobin below 7 Cystoscopy report was noted and reviewed Continue to hold Eliquis Continue to monitor renal profile on a daily basis IV fluids at [facility] Will continue to follow Time with Patient: Less than 30
--- NOTE | 2024-03-13 13:30 | P.PN ---
Subjective Progress Note Date: 03/13/24 HISTORY OF PRESENTING ILLNESS 83-year-old with past medical history of paroxysmal atrial fibrillation, hypertension, dyslipidemia, CKD, chronic diastolic heart failure, last NSTEMI in October 2023 requiring heart cath showing 80% left main stenosis and mid LAD 60 to 70% stenosis with WELDER GAS TUNGSTEN ARC of LCx. She underwent PCI of left main into LAD. Patient has also had multiple hospital visits with A-fib RVR's past. There is also concern of noncompliance to medications. It is unclear if patient has been taking dual antiplatelet therapy since her PCI. This time patient presented to the hospital because of generalized weakness and fatigue and a fall. Apparently patient was found in the bathroom. Patient reported that she became severely lightheaded and could not get up from the sitting position in the bathroom commode. She was down for few hours before her son found her and called the EMS. On admission she was hypotensive and dehydrated along with atrial fibrillation with RVR. Her blood pressure was 80 over 60 mmHg. ECG showed atrial fibrillation with heart rate in the beats were minute, incomplete left bundle branch block with diffuse ST depressions Her labs showed NT proBNP of 18,000, troponin of 0.067, repeat 0.72. Creatinine 2.49, baseline creatinine 1.6 Chest x-ray did not show significant pulm congestion. Pelvic CT showed hypodensity seen in the urinary bladder may reflect blood byproducts. Echo July 2023: EF 55%, severe LVH, moderate MR, Echo February 2024, EF 65%, hyperdynamic LV, moderate LVH, no significant wall motion abnormality. March 06, 2024 Patient continues to have hematuria. It appears slightly better as compared to yesterday. Appears to have 20 to 30 cc/h urine output with slightly improved creatinine to 2.2 today. Hemoglobin is 7.8, platelet 351. She is s/p 2 units of blood transfusion 03/05/2024. Her echocardiogram showed an EF of 65 to 70%, small LV cavity, no significant valvular disease. On exam she reports having diarrhea. Reports feeling weak. Appears slightly dehydrated getting IV fluids. 03/07/2024 BP 92/62, heart rate 112 bpm, atrial fibrillation with RVR Hemoglobin 7.4. Yesterday it was 7.8. On admission 6.8. She is s/p unit blood transfusion since admission. Renal function has continued to improve, creatinine is 1.9 today. On admission 2.9. She has good urine output. Her hematuria has resolved. 03/08/2024 Patient continues to have significant diarrhea. Hemoglobin is stable. No further hematuria. Appropriate urine output with stable kidney function creatinine at 2 today. Yesterday 119 Patient's diarrhea is better after 1 dose of Imodium. Patient's hemoglobin is dropped to 6.5. Patient started having hematuria again. Will stop her Eliquis and Plavix. Will resume her on aspirin because of recent PCI. March 10, 2024 Blood pressure 107/59, heart rate 80 bpm, rafib rate controlled Patient's diarrhea has got better. She still has bright red urine concerning of hemorrhagic cystitis. She had 1 unit of blood transfusion done yesterday. In total she has got 3 units of blood transfusion since admission. March 11, 2024, BP 110/60, rate controlled afib, still having dark red urine, renal function is holding , no chest pain or shortness of breath. 03/12 Patient complains of dyspnea on exertion. No chest pain. She also complains of dizziness. Patient noted to have gross hematuria in Streeter catheter bag. Patient is scheduled for procedure today with Dr. Lawrence. Blood pressure 113/64, heart rate 117, pulse ox 100% on room air. Eliquis and Plavix are on hold. 03/13 Patient continues to be in A-fib heart rate jumps up to the 120s just before her medications are due and then normalizes after. She states she had a better night. She has shortness of breath with activity but stable at rest. She complains of jumpy legs. Yesterday, she underwent procedure with urology and plan is for holding anticoagulation. She only has a very slight pink color to urine in Streeter bag. Blood pressure 120/79, heart rate 103, pulse ox 94% on room air. Repeat blood work reveals hemoglobin 8.4. BUN 34 creatinine 1.85. Potassium 4.3. PHYSICAL EXAMINATION Head: Normocephalic. Eyes: Sclerae nonicteric. Neck: Brisk carotid upstroke, no jugular venous distention. Lungs: Bilateral rhonchi. Heart: irregular pulse, S1-S2, 2/6 systolic murmur . Abdomen: Soft nontender, positive bowel sounds. Extremities: 1+ edema in leg , non pitting Neuro: no focal deficits. Detailed neuro exam was not performed. ASSESSMENT Elevated troponin, likely type II NSTEMI in setting of BOLA, sepsis and anemia Acute on chronic systolic heart failure, CAD s/p PCI in October 2023. S/p PCI to left main into LAD 4 x 15 mm PRANAY Paroxysmal Atrial fibrillation. Currently Afib, Acute blood loss anemia due to hematuria s/p 2 U PRBC Severe sepsis BOLA on CKD, BOLA resolved. Hyperlipidemia Hypothyroidism Medication non compliance PLAN Continue patient on aspirin 81 mg. Eliquis and Plavix on hold due to hematuria Continue metoprolol 100 mg twice daily. Continue patient on Farxiga 10 mg daily Monitor renal function electrolytes Transfuse blood if hemoglobin less than 7. Appreciate urology recommendations to hold anticoagulation. Nurse practitioner note has been reviewed, I agree with documented findings and plan of care. Patient was seen and examined. Objective - Vital Signs Vital signs: Vital Signs Temp 97.4 F L 03/13/24 08:30 Pulse 103 H 03/13/24 08:30 Resp 17 03/13/24 08:30 BP 120/79 03/13/24 08:30 Pulse Ox 94 L 03/13/24 08:30 FiO2 Intake & Output 03/12/24 03/13/24 03/13/24 18:59 06:59 18:59 Intake Total 906 618 Output Total 1600 3250 1200 Balance -694 -3250 -582 Intake: IV 550 Oral 356 618 Output: Urine 1600 3250 1200 Other: Voiding Method Indwelling Catheter Indwelling Catheter Indwelling Catheter # Bowel Movements 1 - Labs CBC & Chem 7: 03/13/24 10:17 03/13/24 10:17 Labs: Abnormal Lab Results - Last 24 Hours (Table) 03/12/24 03/12/24 03/13/24 Range/Units 11:37 20:05 05:43 RBC (3.80-5.40) m/uL Hgb (11.4-16.0) gm/dL Hct (34.0-46.0) % RDW (11.5-15.5) % Chloride (98-107) mmol/L Carbon Dioxide (22-30) mmol/L BUN (7-17) mg/dL Creatinine (0.52-1.04) mg/dL Glucose (74-99) mg/dL POC Glucose (mg/dL) 209 H 223 H 241 H (70-110) mg/dL Calcium (8.4-10.2) mg/dL Total Protein (6.3-8.2) g/dL Albumin (3.5-5.0) g/dL 03/13/24 03/13/24 Range/Units 10:17 10:17 RBC 3.02 L (3.80-5.40) m/uL Hgb 8.4 L (11.4-16.0) gm/dL Hct 27.0 L (34.0-46.0) % RDW 20.9 H (11.5-15.5) % Chloride 110 H (98-107) mmol/L Carbon Dioxide 21 L (22-30) mmol/L BUN 34 H (7-17) mg/dL Creatinine 1.85 H (0.52-1.04) mg/dL Glucose 207 H (74-99) mg/dL POC Glucose (mg/dL) (70-110) mg/dL Calcium 7.7 L (8.4-10.2) mg/dL Total Protein 5.4 L (6.3-8.2) g/dL Albumin 2.4 L (3.5-5.0) g/dL
--- NOTE | 2024-03-13 13:35 | P.PN ---
Subjective Underwent cystoscopy clot EVAC with fulguration yesterday, urine is clear on slow rate CBI. Hemoglobin stable Objective - Vital Signs Vital signs: Vital Signs Temp 97.4 F L 03/13/24 08:30 Pulse 103 H 03/13/24 08:30 Resp 17 03/13/24 08:30 BP 120/79 03/13/24 08:30 Pulse Ox 94 L 03/13/24 08:30 FiO2 Intake & Output 03/12/24 03/13/24 03/13/24 18:59 06:59 18:59 Intake Total 906 618 Output Total 1600 3250 1200 Balance -694 -3250 -582 Weight 68.7 kg Intake: IV 550 Oral 356 618 Output: Urine 1600 3250 1200 Other: Voiding Method Indwelling Catheter Indwelling Catheter Indwelling Catheter # Bowel Movements 1 - Constitutional General appearance: Present: no acute distress - Gastrointestinal General gastrointestinal: Present: soft. Absent: distended, tenderness - Labs CBC & Chem 7: 03/13/24 10:17 03/13/24 10:17 Labs: Abnormal Lab Results - Last 24 Hours (Table) 03/12/24 03/13/24 03/13/24 Range/Units 20:05 05:43 10:17 RBC 3.02 L (3.80-5.40) m/uL Hgb 8.4 L (11.4-16.0) gm/dL Hct 27.0 L (34.0-46.0) % RDW 20.9 H (11.5-15.5) % Chloride (98-107) mmol/L Carbon Dioxide (22-30) mmol/L BUN (7-17) mg/dL Creatinine (0.52-1.04) mg/dL Glucose (74-99) mg/dL POC Glucose (mg/dL) 223 H 241 H (70-110) mg/dL Calcium (8.4-10.2) mg/dL Total Protein (6.3-8.2) g/dL Albumin (3.5-5.0) g/dL 03/13/24 03/13/24 Range/Units 10:17 11:35 RBC (3.80-5.40) m/uL Hgb (11.4-16.0) gm/dL Hct (34.0-46.0) % RDW (11.5-15.5) % Chloride 110 H (98-107) mmol/L Carbon Dioxide 21 L (22-30) mmol/L BUN 34 H (7-17) mg/dL Creatinine 1.85 H (0.52-1.04) mg/dL Glucose 207 H (74-99) mg/dL POC Glucose (mg/dL) 225 H (70-110) mg/dL Calcium 7.7 L (8.4-10.2) mg/dL Total Protein 5.4 L (6.3-8.2) g/dL Albumin 2.4 L (3.5-5.0) g/dL Assessment and Plan Assessment: 83-year-old female with history of gross hematuria, is having persistent hematuria, has required 3 units of blood transfusion since admission. Underwent cystoscopy clot EVAC on March 12, findings consistent with radiation cystitis, no malignant lesions identified. Urine is currently clear on slow rate CBI -Will try to wean off CBI -Continue to hold anticoagulation, if urine remains clear then anticoagulation can be restarted in 48 hours from now
[2024-03-13 15:33] LABS: % Iron Saturation 16.3 (12.00-45.00)
[2024-03-13 16:43] LABS: Glucose,Whole Blood 184 mg/dL (70-110)
[2024-03-13 19:57] LABS: Glucose,Whole Blood 222 mg/dL (70-110)
--- NOTE | 2024-03-14 05:48 | P.PN ---
Subjective Progress Note Date: 03/13/24 HISTORY OF PRESENT ILLNESS: 83-year-old office patient with active medical history of Paroxysmal atrial fibrillation was on anticoagulation, history of hypertension, hyperlipidemia, stage III chronic kidney disease, chronic diastolic congestive heart failure, who also had recently history of non-ST [place] with heart cath showed CAD including left main at 80% stenosis with mild LAD at 60 to 70% stenosis with circumflex 100% stenosis ended up having PCI of the left main and LAD, patient had multiple visits to the emergency department last few months with recurrent A-fib with RVR with similar claimed that she ran out of medication, she stopped taking medication a week ago, and many other. Sadly since her angioplasty and stent placement and the harm of not being on dual antiplatelet agent and her current medications extremely dangerous despite explaining this to the patient it looks like this event keep happening. She was hospitalized again in November for A-fib with RVR along with elevated troponin and anemia. She has been complaining of generalized weakness and fatigue post fall she apparently found in the bathroom developed severe lightheadedness and fell her son found her after work she was down for total hours she hit her head and right chest area has not had anything to eat or drink all day Call 911 patient brought to the emergency department at [facility] CT of the brain without contrast did not show any acute abnormality there is atrophy and microvascular finding. Found to be extremely hypertensive she was giving 1 L of IV saline and continue with 130 cc an hour she remained quite hypotensive she had anemia as well and found to be in A-fib with pulse rate running 110 beats per minutes her blood pressure still 80/60 she was started on vasopressor with norepinephrine was not having any chest pain or tightness at her proBNP was 18,800 with mildly elevated troponin. Her urine shows gross hematuria and has been having apparently problem with burning discomfort in bloody urine. She is on Eliquis for A-fib with RVR so she is on 2 Plavix since her angioplasty and stent early. 2 g of Rocephin was giving culture was done for blood and urine her hemoglobin initially was 8.8 and within few hours dropped down to 6 with hydration patient does not have any visual active GI bleed her BUN 54 creatinine 2.72 much worse than before lactic acid at 3.1. Patient was transferred to the ICU continue hydration, vasopressor, process for blood transfusion to be done. 03/06/2024: Continue to have gross hematuria causing more anemia despite a blood transfusion. Urology seen the patient and believe this is hemorrhagic cystitis aggravated by anticoagulation and they are recommending to irrigate the catheter when necessary still waiting for the urine culture to be finalized in the meanwhile she has remained on Rocephin 2 g daily. She is off vasopressor currently hemoglobin is up to 7.8. 2 unit of packed red cell transfusion. White blood cell is down 7.5 with normal platelet and creatinine improve down to 2.2 with bun of 43. Echocardiogram showed ejection fraction well-preserved with no significant valvular abnormality but mild left ventricular hypertrophy. Patient remain off anticoagulation and was giving 1 dose of Kcentra yesterday still holding on Eliquis and Plavix with cardiology restarted aspirin 81 mg a day. 03/07/2024: Continue to be on 4 L of oxygen to keep her pulse ox above 90 percentile, she had A-fib with RVR with significant worsening congestion of the lung consistent with more heart failure at this point. Started on Cardizem drip 10 mg an hour with her pulse remained above 100, hemoglobin still at 7.4 with normal platelet count creatinine 1.98 still been treated for urine positive for Klebsiella pneumonia with IV antibiotics at this point. Continue to have significant amount of hematuria mostly hemorrhagic cystitis and urology believe he can wait on doing cystoscopy to when she is stable as an outpatient. The kidney function slightly better still seen nephrology discussed that to be acute tubular necrosis nonoliguric secondary to hypotension anemia and sepsis to continue IV continue to treat UTI with no evidence of obstruction. 03/08/2024: Urine culture was positive for Klebsiella pneumonia which patient is responding well to IV Rocephin currently, hemodynamically become more stable, her hematuria has been much better and still having twinges of blood in the catheter. Respiratory failure tejada she is require between 2 and 3 L of O2 to keep her pulse ox above 90 percentile. She is still on Cardizem drip 5 mg an hour to keep pulse under 90 bpm also on Lopressor 50 mg twice a day and still on Eliquis 2.5 mg twice a day. Patient had slight pleural effusion advance diet mobility still significantly decreased and limited to bedrest currently. Nephrology wants her creatinine is down to 2.0 with GFR slightly bit better, continue hydration despite expansion of fluid overload causing more problem at this point. Hoping her creatinine will be down to its baseline before this happened. From cardiology standpoint ejection fraction on echo was well-preserved at 65-70 percentile with no significant valvular heart disease. Cardizem apparently is going to be stopped at some point soon try to monitor her pulse below 90 possible. 03/09/2024: Remain in ICU hemoglobin dropped down again to 6.5 blood transfusion process start again. Respiratory status is slightly better remain on 2 L of O2 at this point. She is still tachycardic running pulse rate around 100 2230 bpm despite being on metoprolol adding Cardizem for better pulse rate control. Her kidney function is better currently with creatinine down to 1.89, urology has no interest in doing cystoscopy at this point he still having a twinge of hematuria but not gross hematuria like before. After transfusions completed patient should be able to leave the ICU today cardiac floor on residential monitor. 03/12/2024: She was transferred out of the ICU on the weekend continue to be kirk kam and managed for severe hematuria with severe anemia, her hemoglobin is up to 8.1 does not require any further blood transfusion, stage IIIb chronic kidney disease with creatinine subtle around 1.87 no blood drawn done this morning yet awaiting for the result. Her hemorrhagic cystitis has been treated with Rocephin culture shows Klebsiella pneumonia susceptible to many antibiotics. Catheter can be probably removed in the next 24 hours and prepare for patient might benefit from going to SNF specially after being sick not able to move for several days. Urology came back with change in plan especially with 3 units of blood transfusion because of the severity of the hematuria and with persistent of hematuria for the last several days agreed to do cystoscopy and fulguration and probably remove clot from her bladder which will help to clear the hematuria a lot faster. 03/13/2024: She is doing much better, Streeter catheter is showing very clear urine today, still regaining bowel bladder with saline via 3 port catheter. Her hemoglobin is down to 8.4 is not requiring transfusion, creatinine has remained at 1.85 which is close to her regular baseline. She does remain on Rocephin 2 g a day which is her original culture with Klebsiella is susceptible to it. Hopefully with improvement and then able to finalize her antibiotic to oral antibiotics and no more bleed we are looking into probably discharge around or Tuesday to SNF. Or sooner as patient is able to participate with physical therapy she will be able to push elevated more with PT. REVIEW OF SYSTEMS: CONSTITUTIONAL: Well-developed in no respiratory distress. EYES: No icterus sclerae, no conjunctivitis. EARS, NOSE, MOUTH, THROAT, and FACE: No sore throat, lymphadenopathy, carotid bruits or deformity. RESPIRATORY: Mild shortness of breath and dyspnea with no cough or wheezes. CARDIOVASCULAR: Positive palpitation and A-fib with no angina positive PND and orthopnea. GASTROINTESTINAL: No Abd pain, Nausea or vomiting, no Diarrhea or constipation, No GI Bleed, no distention or masses. GENITOURINARY: Negative for Hematuria or UTI, no kidney stones. INTEGUMENT/BREAST: Negative for any muscular injury with mild osteoarthritis.. HEMATOLOGIC/LYMPHATIC: Negative for bleed or purpura. MUSCULOSKELTAL: Negative for Myalgia or arthralgia. NEURLOGICAL: No LOC, Sz or syncope, blurred vision dizziness or abnormality.. BEHAVIORAL/PSYCH: Negative. ENDOCRINE: Negative. PHYSICAL EXAMINATION: General Appearance: Alert, cooperative, mild distress. Neck HEENT: Supple, no lymphadenopathy, no thyroid enlargement, no carotid bruits. Lungs: Decreased expansion bilaterally with fine rhonchi positive mild rhonchi but no wheezes. Chest Wall: Decreased expansion with deep inspiration no tenderness and no deformity was found on exam, no costochondral pain or discomfort. Heart: Irregular rate and rhythm, S1, S2 positive severe tachycardia positive ejection murmur. Back: Symmetric, no curvature, ROM normal, no CVA tenderness. Abdomen: Soft, non-tender, bowel sounds active all four quadrants, no masses, no organomegaly. Extremities: Trace edema without cyanotic. Pulses: 2+ and symmetric. Skin: Skin color, texture, tugor normal, no rashes or lesions. Neurologic: Alert oriented with slight confusion. Cranial nerves II through XII intact, no motor deficit, no abnormal balance or gait. ASSESSMENT AND PLAN: _Sepsis: Hemodynamically stable and sepsis had resolved currently especially being on antibiotic to cover Klebsiella pneumonia with Rocephin IV. _Severe hematuria: Most likely from hemorrhagic cystitis, she ended up having cystoscopy with fulguration and still doing irrigation with saline currently through 3 port catheter which the urine drained through the catheter looks very clear currently. _A-fib with RVR pulse rates not well-controlled remain on metoprolol and Cardizem currently. Pulse rate running in the 90s. She is back to oral metoprolol only. _Acute kidney injury on chronic kidney disease: Still stage IIIb chronic kidney disease does not require any dialysis and almost close to her baseline kidney function tej[place], continue supportive care, avoid nephrotoxic and watch for any obstruction specially with her bleeding. _Acute blood loss anemia: Post 3 unit of blood transfusion hemoglobin stable above 8 no need for any more transfusion. _Acute systolic congestive heart failure with known coronary artery disease patient is still quite symptomatic will benefit from continued diuretic specially if we can slow down on too much IV fluid. _Possible non-ST [place] with elevated troponin's, slightly abnormal EKG known history of myocardial infarction, patient be seen cardiology no intervention is needed at this point. _Atherosclerotic heart disease: Post PCI and stent placement from October has been seeing cardiology currently not being able to reinitiate anticoagulation with Plavix and Eliquis for now. _Type 2 diabetes: Continue Accu-Chek and sliding scale coverage she is not on any insulin still on Farxiga 10 mg a day Eventually can benefit from adding back her oral GLP-1 product. _Hyperlipidemia: Continue atorvastatin 20 mg a day. _Hypothyroidism: Continue levothyroxine 25 mcg daily. _GI prophylaxis: Will be on pantoprazole 40 mg daily. CODE STATUS: Full code. Discussion: Post cystoscopy with fulguration with a clear of her hematuria especially with the bladder irrigation at this point. Continue supportive care for now will initiate physical therapy and advance to gradually improve. Hopefully for possible discharge to SNF. Objective - Vital Signs Vital signs: Vital Signs Temp 97.9 F 03/13/24 04:00 Pulse 95 03/13/24 04:00 Resp 16 03/13/24 04:00 BP 117/66 03/13/24 04:00 Pulse Ox 100 03/13/24 04:00 FiO2 Intake & Output 03/12/24 03/12/24 03/13/24 06:59 18:59 06:59 Intake Total 150 906 Output Total 350 1600 2800 Balance -200 694 -2800 Intake: IV 550 Oral 150 356 Output: Urine 350 1600 2800 Other: Voiding Method Indwelling Catheter Indwelling Catheter Indwelling Catheter # Bowel Movements 1 - Labs CBC & Chem 7: 03/13/24 10:17 06/18/24 10:17 Labs: Abnormal Lab Results - Last 24 Hours (Table) 03/12/24 03/12/24 03/12/24 Range/Units 06:18 11:37 20:05 POC Glucose (mg/dL) 129 H 209 H 223 H (70-110) mg/dL
[2024-03-14 05:58] LABS: Glucose,Whole Blood 102 mg/dL (70-110)
[2024-03-14] MEDS: ZINC OXIDE PASTE (Z-GUARD) 1 APPLIC TOPICAL PRN (10:04)
[2024-03-14 11:28] LABS: Glucose,Whole Blood 184 mg/dL (70-110)
--- NOTE | 2024-03-14 11:44 | P.PN ---
Subjective Patient is seen in follow-up for chronic kidney disease. Renal function stable as of yesterday. Hematuria clearing up. Oral intake fair. Denies chest pain or shortness of breath. Vital signs are stable. General: No acute distress. HEENT: Head exam is unremarkable. LUNGS: No audible rhonchi or wheezes. HEART: Rate and Rhythm are regular. ABDOMEN: Nontender. EXTREMITITES: No edema. Objective - Vital Signs Vital signs: Vital Signs Temp 97.5 F L 03/14/24 08:00 Pulse 75 03/14/24 08:00 Resp 16 03/14/24 08:00 BP 132/61 03/14/24 08:00 Pulse Ox 96 03/14/24 08:00 FiO2 Intake & Output 03/13/24 03/14/24 03/14/24 18:59 06:59 18:59 Intake Total 1176 Output Total 2900 650 Balance -1724 -650 Weight 68.7 kg 69 kg Intake: Oral 1176 Output: Urine 2900 650 Other: Voiding Method Indwelling Catheter Indwelling Catheter - Labs CBC & Chem 7: 03/13/24 10:17 03/13/24 10:17 Labs: Abnormal Lab Results - Last 24 Hours (Table) 03/13/24 03/13/24 03/13/24 Range/Units 10:17 16:41 19:56 POC Glucose (mg/dL) 184 H 222 H (70-110) mg/dL Iron 37 L (50-170) UG/DL TIBC 227 L (228-460) UG/DL Transferrin 162.0 L (204.0-354.0) mg/dL 03/14/24 Range/Units 11:26 POC Glucose (mg/dL) 184 H (70-110) mg/dL Iron (50-170) UG/DL TIBC (228-460) UG/DL Transferrin (204.0-354.0) mg/dL Assessment and Plan Plan: Assessment: 1. Acute kidney injury secondary to ATN secondary to hypotension and acute blood loss anemia. No obstruction noted on imaging. Creatinine was 2.72 on admission and stable at 1.85 yesterday. 2. Chronic kidney disease stage IIIb with baseline creatinine 1.6-1.8. 3. Klebsiella UTI on antibiotics. 4. Acute blood loss anemia with gross hematuria secondary to hemorrhagic cystitis. Urology following. Hemoglobin stable. Iron deficiency noted. 5. Metabolic acidosis secondary to chronic kidney disease. Stable. Plan: Encouraged oral intake. Avoid nephrotoxins. Continue to monitor renal function and urine output. Preserved ejection fraction noted on echocardiogram. Add IV iron. Add p.o. bicarb. Follow-up outpatient 1 to 2 weeks postdischarge.
[2024-03-14 11:53] LABS: Glucose,Whole Blood 175 mg/dL (70-110)
--- NOTE | 2024-03-14 11:58 | P.PN ---
Subjective Progress Note Date: 03/14/24 Principal diagnosis: Acute urinary tract infection secondary to Klebsiella pneumoniae and hematuria Patient is a 83-year-old white female with past medical history significant for coronary artery disease with recent stent, valvular heart disease, atrial fibrillation anticoagulated on Eliquis, hypertension, diabetes mellitus, uterine cancer. Of note, patient had a recent hospitalization September, for non-ST elevation PR and received a stent to the LAD. Patient presented to emergency room yesterday afternoon with a chief complaint of generalized weakness and fatigue and she had a fall. She was apparently in the bathroom where she went to get up and became lightheaded and fell. She states that her son was at work at this time, he found her when he came home. She was on the ground for a couple hours. States that she did hit her head and right chest. Did not have anything to eat or drink all day. Her son was the one that called 911. She states that over the last several days she has been generally weak. CT of the brain without contrast did not show any acute intracranial abnormality. There is atrophy and chronic microvessel ischemic white matter changes. While being evaluated by the ER room physician, she was noted to be hypotensive. She has been fluid resuscitated with 1 L of normal saline bolus, and currently has normal saline infusing at 130 MLS per hour. She does take midodrine outpatient. After the 1 L normal saline bolus, patient remained hypotensive, and my supervising physician recommended ICU monitoring. Patient is currently in the emergency department, room 7. She appears fairly comfortable. She is on room air. SpO2 100%. Blood pressure currently 85/61 mmHg. Heart rhythm appears to be atrial fibrillation with a rate of 118 bpm. Norepinephrine has not been started yet. She denies any radiating chest pain, there is some localized reproducible right-sided chest pain where she impacted on fall. Denies any heart palpitations or syncopal events. She has a pure wick suction catheter, there is presumed gross hematuria in the canister. She is not able to tell me how long this has been occurring for. She denies kidney stones. She is on Eliquis outpatient. Patient does admit to some continuous pelvic discomfort/ pressure. No flank pain. No burning with urination, no increased urinary frequency. She is chronically incontinent to urine. She has noted blood clots in her underwear. She has remote history of uterine cancer. She does not think this is vaginal bleeding. She received a dose of Rocephin in the emergency room for possible UTI. Urinalysis showing hina blood and WBCs. Culture is pending. She is afebrile. CBC without leukocytosis. Hemoglobin 8.8 g/dL, hematocrit 28.7. Platelets 471. CMP on arrival: Sodium 130, potassium 3.3, chloride 98, serum bicarb 23, BUN 54, creatinine 2.72, glucose 275. Lactic acid originally 3.1 and down to 1.7. LFTs not elevated. EKG done on arrival showed atrial fibrillation with a rate of [address] depressions in the lateral leads. Troponin less than 0.012. NT proBNP 19,900. Chest x-ray shows stable cardiac silhouette, no pulmonary vascular congestion or edema, no acute infiltrates, no pleural effusions or pneumothoraces. She is going to be monitored in the intensive care unit, and transferred once bed available. On 03/06/2024, the patient continues to have hematuria although this has somewhat improved compared to yesterday. Urine output is still bloody and the intensity of the blood is less compared to yesterday. Noted the patient drop in hemoglobin yesterday down to 6.8 and she was given additional unit of packed RBC making a total of 2 units of packed RBC and hemoglobin is currently up to 7.8. She remains on normal saline at the rate of 130 cc an hour. The norepinephrine infusion was discontinued around 5:00 this morning. She is in atrial fibrillation. She is slightly tachycardic. Urine culture is showing gram-negat clay bacillus and the patient is currently on IV Rocephin. The WBC count is at 7.5, hemoglobin 7.8 and a platelet count of 351. Creatinine is improving is currently down to 2.2 again of 43, serum bicarb is at 17 with a sodium level of 135 and a potassium level of 3.4 and this needs to be replaced. The cortisol level is at 19.2. This was a random cortisol level. Echocardiogram was also done on 03/05/2024 revealing a ejection fraction of 65 to 70%, small LV cavity, mildly increased septal wall thickening, mild increase in the posterior wall thickening, no significant valvular abnormalities noted. Mild LVH. Noted the patient was given Kcentra yesterday. The patient is currently off antico agulation. 03/07/2024, the patient is being seen for a follow-up. Patient is doing well. The patient is not having any active hematuria at this point in time. The hematuria has subsided. She is currently on 4 L of oxygen by nasal cannula. She has been off norepinephrine since 5 AM this morning. IV fluids are currently at KVO. The patient however developed atrial fibrillation with rapid ventricular response 6 PM yesterday. Her lungs are also congested. Based on that, she was given a dose of Lasix in the morning. She is currently on a Cardizem drip running at 10 mg an hour. She remains calm and comfortable. No significant chest pain. The white count of 10.6 with a hemoglobin 7.4 and a platelet count of 345. BUN 33 with a creatinine of 1.98 and the sodium is at 137. Urine culture is positive for Klebsiella pneumonia. 03/08/2024, the patient is not having any hematuria. She was diagnosed having a Klebsiella pneumoniae urine tract infection with secondary hematuria and hemat uria has subsided. The patient remains on IV Rocephin. Hemodynamically stable on no pressors. Still on Cardizem drip which is running at 5 mg hour. She is also on Lopressor current dose of 50 mg p.o. twice a day. Anticoagulation was restarted by the medical group and the patient is currently on Eliquis 2.5 mg p.o. twice a day. She remains on oxygen and she is currently on 2 L nasal cannula. Some limited cough and congestion. Chest x-ray was done and showed improving interstitial pattern which was attribute to pulmonary vascular congestion/venous congestion and a stable tiny left lower lobe effusion. Otherwise, no other new complaints. Tolerating diet. No chest pain. the patient is still having hematuria on today's evaluation on 03/09/2024, the patient is having hematuria. Noted aspirin and Eliquis was restarted back by cardiology. As such, the patient developed hematuria and the medications were essentially discontinued. Hemoglobin dropped down to 6.5 and the patient is going to be receiving 1 unit of packed RBC. She is also having some liquid diarrhea. Will check stool for C. difficile. The patient remains in atrial fibrillation. She remains quite tachycardic and she is currently on metoprolol 50 mg p.o. 3 times daily. Will add Cardizem for better rate control. The patient remains on IV Rocephin. White cell count is 7.2, platelet count 273, creatinine is down to 1.89 with a BUN of 31 and a sodium levels of 133. No other significant events overnight. She is awake and alert and communicating. No signs of any significant respiratory distress. Chest x-ray findings were stable and improving. On today's evaluation of 03/10/2024, I am seeing the patient for a follow-up. Unfortunately, the patient continues to have hematuria. Urology is on the case. No plans for cystoscopy at this point in time and the patient is currently off anticoagulation. Repeat hemoglobin from today is down to 7.9. The white cell count is 7.3. The patient's renal function is stable with a BUN of 30 creatinine 1.8. Serum bicarb is at 20. The patient remains on oxygen on room air. No significant respiratory distress. No other complaints otherwise for now. She remains on IV Rocephin. Urology on the case. 03/11/2024, the patient is being seen for a follow-up. She is having some hematuria although urine output seems to be less bloody compared to yesterday. Hemoglobin is at 8.1 which is essentially stable compared to yesterday. Creatinine is also stable at 1.8. The patient is currently on room air oxygen. Urology on the case. The patient remains in atrial fibrillation. Rate is controlled and the patient is off Eliquis. Patient was reevaluated today on 03/12/2024, patient is complaining of some shortness of breath on exertion, no chest pain, no palpitations, continues to have hematuria, scheduled to have cystoscopy by urology today and clot evac uation. Patient is on room air, O2 saturation is 98%, does not seem to be in any form of distress. Patient had no labs today except for blood sugar of 209 and significantly elevated BNP level, her WBC count yesterday was 6.8 with a hemoglobin of 8.1, and relatively normal basic metabolic profile, BUN of 28 and creatinine of 1.87. Chest x-ray yesterday showed very minimal tiny left-sided pleural effusion otherwise unremarkable Patient was evaluated today on 03/13/2024, feeling better, no further episodes of hematuria, patient was seen by urology yesterday, underwent cystoscopy and clot evaluation. No evidence of malignancy involving the urinary bladder, patient was noted to have diffuse oozing and felt to be more of a picture of cystitis/infection. WBC count is 8.7 hemoglobin 8.4 basic metabolic profile is normal BUN is 34 creatinine 1.85, her renal functioning is being addressed by nephrology, patient developed acute kidney injury secondary to ATN secondary to hypotension and acute blood loss. No evidence of obstructive uropathy Patient was seen today on 03/14/2024, patient is doing well, relatively asymptomatic. No symptoms of UTI, no shortness of breath no cough no wheezing no chest pain. Her urine has completely cleared, and there is no evidence of gross hematuria. Remains on antibiotics for UTI. Her basic metabolic profile is normal creatinine 1.85 WBC count is 8.7 hemoglobin is 8.4 Objective - Vital Signs Vital signs: Vital Signs Temp 97.6 F 03/14/24 11:47 Pulse 80 03/14/24 11:47 Resp 16 03/14/24 11:47 BP 113/55 03/14/24 11:47 Pulse Ox 98 03/14/24 11:47 FiO2 Intake & Output 03/13/24 03/14/24 03/14/24 18:59 06:59 18:59 Intake Total 1176 Output Total 2900 650 Balance -1724 -650 Weight 68.7 kg 69 kg Intake: Oral 1176 Output: Urine 2900 650 Other: Voiding Method Indwelling Catheter Indwelling Catheter - Exam GENERAL EXAM: revealed 83-year-old female in no distress, on room air, HEAD: Normocephalic and atraumatic EYES: Normal reaction of pupils, equal size. NOSE: Clear with pink turbinates. THROAT: No erythema or exudates. NECK: No masses, no JVD. CHEST: No chest wall deformity. LUNGS: Clear throughout no significant findings on the chest. CVS: Normal S1-S2, no S3 gallop. 2/6 systolic murmur throughout the precordium, irregular rhythm ABDOMEN: No hepatosplenomegaly, active bowel sounds, no guarding or rigidity. SKIN: No rashes, generalized pallor CENTRAL NERVOUS SYSTEM: Alert and oriented x 3 no gross deficit EXTREMITIES: Trace of bipedal edema - Labs CBC & Chem 7: 03/13/24 10:17 03/13/24 10:17 Labs: Abnormal Lab Results - Last 24 Hours (Table) 03/13/24 03/13/24 03/13/24 Range/Units 10:17 16:41 19:56 POC Glucose (mg/dL) 184 H 222 H (70-110) mg/dL Iron 37 L (50-170) UG/DL TIBC 227 L (228-460) UG/DL Transferrin 162.0 L (204.0-354.0) mg/dL 03/14/24 03/14/24 Range/Units 11:26 11:52 POC Glucose (mg/dL) 184 H 175 H (70-110) mg/dL Iron (50-170) UG/DL TIBC (228-460) UG/DL Transferrin (204.0-354.0) mg/dL Assessment and Plan Assessment: Impression: Acute urinary tract infection with hematuria and possible cystitis secondary to Klebsiella pneumonia infection. Acute blood loss anemia secondary to hematuria Severe dehydration and hypovolemia Acute on chronic kidney disease Chronic A-fib, on beta-blockers and on anticoagulation therapy Chronic microcytic, hypochromic anemia, received a total of 3 units of packed RBCs since admission Coronary artery disease, with recent PCI/stent to the LAD performed 10/28/2023 History of mild to moderate mitral regurgitation, preserved LV function History of diabetes mellitus, type II History of hypothyroidism Chronic kidney disease stage III History of hyperlipidemia Remote history of uterine CA Recommendation: Continue Rocephin, 2 g every 24 hours. Continue to hold Eliquis Continue to monitor renal profile on a daily basis IV fluids at [facility] Will continue to follow Time with Patient: Less than 30
--- NOTE | 2024-03-14 12:38 | P.PN ---
Subjective Progress Note Date: 03/13/24 Principal diagnosis: Reason for follow-up is complicated UTI Patient is a 83-year-old male for diabetes mellitus hypertension atrial fibrillation brought to the hospital for evaluation of generalized weakness fatigue lightheadedness low blood pressure patient noticed to have significant hematuria and concern for complicated UTI. On today's evaluation that is 03/13/2024, Patient is afebrile patient is currently on room air and denies having any shortness of breath, the patient denies any chest pain continue to complain of a cough would not bring up any sputum , the patient denies any nausea vomiting did not have any abdominal pain and no diarrhea did have resolution of her hematuria Patient did have white count of 8.7, creatinine is 1.85 Objective - Vital Signs Vital signs: Vital Signs Temp 97.4 F L 03/13/24 08:30 Pulse 103 H 03/13/24 08:30 Resp 17 03/13/24 08:30 BP 120/79 03/13/24 08:30 Pulse Ox 94 L 03/13/24 08:30 FiO2 Intake & Output 03/12/24 03/13/24 03/13/24 18:59 06:59 18:59 Intake Total 906 618 Output Total 1600 3250 1200 Balance -694 -3250 -582 Weight 68.7 kg Intake: IV 550 Oral 356 618 Output: Urine 1600 3250 1200 Other: Voiding Method Indwelling Catheter Indwelling Catheter Indwelling Catheter # Bowel Movements 1 - Exam GENERAL DESCRIPTION: An elderly female lying in bed in no distress RESPIRATORY SYSTEM: Unlabored breathing , decreased breath sounds at bases HEART: S1 S2 regular rate and rhythm , ABDOMEN: Soft , no tenderness - Labs CBC & Chem 7: 03/13/24 10:17 03/13/24 10:17 Labs: Abnormal Lab Results - Last 24 Hours (Table) 03/12/24 03/13/24 03/13/24 Range/Units 20:05 05:43 10:17 RBC 3.02 L (3.80-5.40) m/uL Hgb 8.4 L (11.4-16.0) gm/dL Hct 27.0 L (34.0-46.0) % RDW 20.9 H (11.5-15.5) % Chloride (98-107) mmol/L Carbon Dioxide (22-30) mmol/L BUN (7-17) mg/dL Creatinine (0.52-1.04) mg/dL Glucose (74-99) mg/dL POC Glucose (mg/dL) 223 H 241 H (70-110) mg/dL Calcium (8.4-10.2) mg/dL Total Protein (6.3-8.2) g/dL Albumin (3.5-5.0) g/dL 03/13/24 03/13/24 Range/Units 10:17 11:35 RBC (3.80-5.40) m/uL Hgb (11.4-16.0) gm/dL Hct (34.0-46.0) % RDW (11.5-15.5) % Chloride 110 H (98-107) mmol/L Carbon Dioxide 21 L (22-30) mmol/L BUN 34 H (7-17) mg/dL Creatinine 1.85 H (0.52-1.04) mg/dL Glucose 207 H (74-99) mg/dL POC Glucose (mg/dL) 225 H (70-110) mg/dL Calcium 7.7 L (8.4-10.2) mg/dL Total Protein 5.4 L (6.3-8.2) g/dL Albumin 2.4 L (3.5-5.0) g/dL Assessment and Plan (1) UTI (urinary tract infection) Current Visit: Yes Status: Acute Code(s): N39.0 - URINARY TRACT INFECTION, SITE NOT SPECIFIED SNOMED Code(s): 79986846 Plan: 1patient presented to hospital with weakness not feeling well patient was hypotensive noticed to have hematuria with abnormal renal ultrasound concerning for mass versus clot in the urinary bladder did have a positive UA concerning for symptomatic urinary tract infection. 2patient urine has been finalized with Klebsiella that is sensitive to ceftriaxone 4- patient is afebrile and the patient white count has normalized 5-patient to continue with Rocephin while inpatient monitor clinical course closely Dictation was produced using [employer] dictation software. please excuse any grammatical, word or spelling errors. Time with Patient: Less than 30
--- NOTE | 2024-03-14 12:39 | P.PN ---
Subjective Progress Note Date: 03/14/24 Principal diagnosis: Reason for follow-up is complicated UTI Patient is a 83-year-old male for diabetes mellitus hypertension atrial fibrillation brought to the hospital for evaluation of generalized weakness fatigue lightheadedness low blood pressure patient noticed to have significant hematuria and concern for complicated UTI. On today's evaluation that is 03/14/2024, patient has been afebrile, patient is breathing comfortably and is currently on room air, patient denies having any worsening cough no chest pain shortness of breath, patient denies nausea vomiting or diarrhea and no abdominal pain No lab draw today Objective - Vital Signs Vital signs: Vital Signs Temp 97.6 F 03/14/24 11:47 Pulse 80 03/14/24 11:47 Resp 16 03/14/24 11:47 BP 113/55 03/14/24 11:47 Pulse Ox 98 03/14/24 11:47 FiO2 Intake & Output 03/13/24 03/14/24 03/14/24 18:59 06:59 18:59 Intake Total 1176 356 Output Total 2900 650 400 Balance -1724 -650 -44 Weight 68.7 kg 69 kg Intake: Oral 1176 356 Output: Urine 2900 650 400 Other: Voiding Method Indwelling Catheter Indwelling Catheter - Exam GENERAL DESCRIPTION: An elderly female lying in bed in no distress RESPIRATORY SYSTEM: Unlabored breathing , decreased breath sounds at bases HEART: S1 S2 regular rate and rhythm , ABDOMEN: Soft , no tenderness - Labs CBC & Chem 7: 03/13/24 10:17 03/13/24 10:17 Labs: Abnormal Lab Results - Last 24 Hours (Table) 03/13/24 03/13/24 03/13/24 Range/Units 10:17 16:41 19:56 POC Glucose (mg/dL) 184 H 222 H (70-110) mg/dL Iron 37 L (50-170) UG/DL TIBC 227 L (228-460) UG/DL Transferrin 162.0 L (204.0-354.0) mg/dL 03/14/24 03/14/24 Range/Units 11:26 11:52 POC Glucose (mg/dL) 184 H 175 H (70-110) mg/dL Iron (50-170) UG/DL TIBC (228-460) UG/DL Transferrin (204.0-354.0) mg/dL Assessment and Plan (1) UTI (urinary tract infection) Current Visit: Yes Status: Acute Code(s): N39.0 - URINARY TRACT INFECTION, SITE NOT SPECIFIED SNOMED Code(s): 10427874 Plan: 1patient presented to hospital with weakness not feeling well patient was hypotensive noticed to have hematuria with abnormal renal ultrasound concerning for mass versus clot in the urinary bladder did have a positive UA concerning for symptomatic urinary tract infection. 2patient urine has been finalized with Klebsiella that is sensitive to ceftriaxone 4- patient is afebrile and the patient white count has normalized and did have resolution of her hematuria 5-patient to continue with Rocephin while inpatient will consider short course of oral antibiotic on discharge Dictation was produced using [employer] dictation software. please excuse any grammatical, word or spelling errors. Time with Patient: Less than 30
--- NOTE | 2024-03-14 13:45 | P.PN ---
Subjective Progress Note Date: 03/14/24 HISTORY OF PRESENTING ILLNESS 83-year-old with past medical history of paroxysmal atrial fibrillation, hypertension, dyslipidemia, CKD, chronic diastolic heart failure, last NSTEMI in October 2023 requiring heart cath showing 80% left main stenosis and mid LAD 60 to 70% stenosis with FLIGHT TEST MECHANIC of LCx. She underwent PCI of left main into LAD. Patient has also had multiple hospital visits with A-fib RVR's past. There is also concern of noncompliance to medications. It is unclear if patient has been taking dual antiplatelet therapy since her PCI. This time patient presented to the hospital because of generalized weakness and fatigue and a fall. Apparently patient was found in the bathroom. Patient reported that she became severely lightheaded and could not get up from the sitting position in the bathroom commode. She was down for few hours before her son found her and called the EMS. On admission she was hypotensive and dehydrated along with atrial fibrillation with RVR. Her blood pressure was 80 over 60 mmHg. ECG showed atrial fibrillation with heart rate in the beats were minute, incomplete left bundle branch block with diffuse ST depressions Her labs showed NT proBNP of 18,000, troponin of 0.067, repeat 0.72. Creatinine 2.49, baseline creatinine 1.6 Chest x-ray did not show significant pulm congestion. Pelvic CT showed hypodensity seen in the urinary bladder may reflect blood byproducts. Echo July 2023: EF 55%, severe LVH, moderate MR, Echo February 2024, EF 65%, hyperdynamic LV, moderate LVH, no significant wall motion abnormality. March 06, 2024 Patient continues to have hematuria. It appears slightly better as compared to yesterday. Appears to have 20 to 30 cc/h urine output with slightly improved creatinine to 2.2 today. Hemoglobin is 7.8, platelet 351. She is s/p 2 units of blood transfusion 03/05/2024. Her echocardiogram showed an EF of 65 to 70%, small LV cavity, no significant valvular disease. On exam she reports having diarrhea. Reports feeling weak. Appears slightly dehydrated getting IV fluids. 03/07/2024 BP 92/62, heart rate 112 bpm, atrial fibrillation with RVR Hemoglobin 7.4. Yesterday it was 7.8. On admission 6.8. She is s/p unit blood transfusion since admission. Renal function has continued to improve, creatinine is 1.9 today. On admission 2.9. She has good urine output. Her hematuria has resolved. 03/08/2024 Patient continues to have significant diarrhea. Hemoglobin is stable. No further hematuria. Appropriate urine output with stable kidney function creatinine at 2 today. Yesterday 119 Patient's diarrhea is better after 1 dose of Imodium. Patient's hemoglobin is dropped to 6.5. Patient started having hematuria again. Will stop her Eliquis and Plavix. Will resume her on aspirin because of recent PCI. March 10, 2024 Blood pressure 107/59, heart rate 80 bpm, rafib rate controlled Patient's diarrhea has got better. She still has bright red urine concerning of hemorrhagic cystitis. She had 1 unit of blood transfusion done yesterday. In total she has got 3 units of blood transfusion since admission. March 11, 2024, BP 110/60, rate controlled afib, still having dark red urine, renal function is holding , no chest pain or shortness of breath. 03/12 Patient complains of dyspnea on exertion. No chest pain. She also complains of dizziness. Patient noted to have gross hematuria in Streeter catheter bag. Patient is scheduled for procedure today with Dr. Lawrence. Blood pressure 113/64, heart rate 117, pulse ox 100% on room air. Eliquis and Plavix are on hold. 03/13 Patient continues to be in A-fib heart rate jumps up to the 120s just before her medications are due and then normalizes after. She states she had a better night. She has shortness of breath with activity but stable at rest. She complains of jumpy legs. Yesterday, she underwent procedure with urology and plan is for holding anticoagulation. She only has a very slight pink color to urine in Streeter bag. Blood pressure 120/79, heart rate 103, pulse ox 94% on room air. Repeat blood work reveals hemoglobin 8.4. BUN 34 creatinine 1.85. Potassium 4.3. 03/14 Patient states that she did not sleep well due to her legs feeling heavy. Urine has been clear and Streeter catheter may be removed today. Dr. Chavez has recommended that anticoagulation may be resumed tomorrow. Patient is hoping for discharge home. Blood pressure 113/55, heart rate 80, pulse ox 98% on room air. PHYSICAL EXAMINATION Head: Normocephalic. Eyes: Sclerae nonicteric. Neck: Brisk carotid upstroke, no jugular venous distention. Lungs: Bilateral rhonchi. Heart: irregular pulse, S1-S2, 2/6 systolic murmur . Abdomen: Soft nontender, positive bowel sounds. Extremities: 1+ edema in leg , non pitting Neuro: no focal deficits. Detailed neuro exam was not performed. ASSESSMENT Elevated troponin, likely type II NSTEMI in setting of BOLA, sepsis and anemia Acute on chronic systolic heart failure, CAD s/p PCI in October 2023. S/p PCI to left main into LAD 4 x 15 mm PRANAY Paroxysmal Atrial fibrillation. Currently Afib, Acute blood loss anemia due to hematuria s/p 2 U PRBC Severe sepsis BOLA on CKD, BOLA resolved. Hyperlipidemia Hypothyroidism Medication non compliance PLAN Continue patient on aspirin 81 mg. Patient may resume anticoagulation tomorrow per urology Continue metoprolol 100 mg twice daily. Continue patient on Farxiga 10 mg daily Monitor renal function electrolytes Transfuse blood if hemoglobin less than 7. Patient is cleared for discharge from cardiology and may follow-up in the office in 1 to 2 weeks. Nurse practitioner note has been reviewed, I agree with documented findings and plan of care. Patient was seen and examined. Objective - Vital Signs Vital signs: Vital Signs Temp 97.5 F L 03/14/24 08:00 Pulse 75 03/14/24 08:00 Resp 16 03/14/24 08:00 BP 132/61 03/14/24 08:00 Pulse Ox 96 03/14/24 08:00 FiO2 Intake & Output 03/13/24 03/14/24 03/14/24 18:59 06:59 18:59 Intake Total 1176 Output Total 2900 650 Balance -1724 -650 Weight 68.7 kg 69 kg Intake: Oral 1176 Output: Urine 2900 650 Other: Voiding Method Indwelling Catheter Indwelling Catheter - Labs CBC & Chem 7: 03/13/24 10:17 03/13/24 10:17 Labs: Abnormal Lab Results - Last 24 Hours (Table) 03/13/24 03/13/24 03/13/24 Range/Units 10:17 10:17 10:17 RBC 3.02 L (3.80-5.40) m/uL Hgb 8.4 L (11.4-16.0) gm/dL Hct 27.0 L (34.0-46.0) % RDW 20.9 H (11.5-15.5) % Chloride 110 H (98-107) mmol/L Carbon Dioxide 21 L (22-30) mmol/L BUN 34 H (7-17) mg/dL Creatinine 1.85 H (0.52-1.04) mg/dL Glucose 207 H (74-99) mg/dL POC Glucose (mg/dL) (70-110) mg/dL Calcium 7.7 L (8.4-10.2) mg/dL Iron 37 L (50-170) UG/DL TIBC 227 L (228-460) UG/DL Transferrin 162.0 L (204.0-354.0) mg/dL Total Protein 5.4 L (6.3-8.2) g/dL Albumin 2.4 L (3.5-5.0) g/dL 03/13/24 03/13/24 03/13/24 Range/Units 11:35 16:41 19:56 RBC (3.80-5.40) m/uL Hgb (11.4-16.0) gm/dL Hct (34.0-46.0) % RDW (11.5-15.5) % Chloride (98-107) mmol/L Carbon Dioxide (22-30) mmol/L BUN (7-17) mg/dL Creatinine (0.52-1.04) mg/dL Glucose (74-99) mg/dL POC Glucose (mg/dL) 225 H 184 H 222 H (70-110) mg/dL Calcium (8.4-10.2) mg/dL Iron (50-170) UG/DL TIBC (228-460) UG/DL Transferrin (204.0-354.0) mg/dL Total Protein (6.3-8.2) g/dL Albumin (3.5-5.0) g/dL
[2024-03-14] MEDS: SODIUM FERRIC GLUCONAT-SUCROSE 125 MG in SODIUM CHLORIDE 0.9% 100 ML IVPB SCH (14:07)
[2024-03-14 16:43] LABS: Glucose,Whole Blood 156 mg/dL (70-110)
--- NOTE | 2024-03-14 20:16 | P.PN ---
Subjective urine is clear this am of CBI Objective - Vital Signs Vital signs: Vital Signs Temp 97.9 F 03/14/24 16:00 Pulse 94 03/14/24 16:00 Resp 16 03/14/24 16:00 BP 113/64 03/14/24 16:00 Pulse Ox 95 03/14/24 16:00 FiO2 Intake & Output 03/14/24 03/14/24 03/15/24 06:59 18:59 06:59 Intake Total 1186 Output Total 650 850 Balance -650 336 Weight 69 kg Intake: Oral 1186 Output: Urine 650 850 Other: Voiding Method Indwelling Catheter External Catheter - Constitutional General appearance: Present: no acute distress - Gastrointestinal General gastrointestinal: Present: soft. Absent: distended, tenderness - Psychiatric Psychiatric: Present: A&O x's 3 - Labs CBC & Chem 7: 03/13/24 10:17 03/13/24 10:17 Labs: Abnormal Lab Results - Last 24 Hours (Table) 03/14/24 03/14/24 03/14/24 Range/Units 11:26 11:52 16:38 POC Glucose (mg/dL) 184 H 175 H 156 H (70-110) mg/dL Assessment and Plan Assessment: 83-year-old female with history of gross hematuria, is having persistent hematuria, has required 3 units of blood transfusion since admission. Underwent cystoscopy clot EVAC on March 12, findings consistent with radiation cystitis, no malignant lesions identified. Urine is currently clear off CBI -Streeter can be removed -Continue to hold anticoagulation, if urine remains clear then anticoagulation can be restarted tomorrow
[2024-03-14 20:24] LABS: Glucose,Whole Blood 212 mg/dL (70-110)
[2024-03-15 06:02] LABS: Glucose,Whole Blood 141 mg/dL (70-110)
--- NOTE | 2024-03-15 06:10 | P.PN ---
Subjective Progress Note Date: 03/14/24 HISTORY OF PRESENT ILLNESS: 83-year-old office patient with active medical history of Paroxysmal atrial fibrillation was on anticoagulation, history of hypertension, hyperlipidemia, stage III chronic kidney disease, chronic diastolic congestive heart failure, who also had recently history of non-ST MD with heart cath showed CAD including left main at 80% stenosis with mild LAD at 60 to 70% stenosis with circumflex 100% stenosis ended up having PCI of the left main and LAD, patient had multiple visits to the emergency department last few months with recurrent A-fib with RVR with similar claimed that she ran out of medication, she stopped taking medication a week ago, and many other. Sadly since her angioplasty and stent placement and the harm of not being on dual antiplatelet agent and her current medications extremely dangerous despite explaining this to the patient it looks like this event keep happening. She was hospitalized again in November for A-fib with RVR along with elevated troponin and anemia. She has been complaining of generalized weakness and fatigue post fall she apparently found in the bathroom developed severe lightheadedness and fell her son found her after work she was down for total hours she hit her head and right chest area has not had anything to eat or drink all day Call 911 patient brought to the emergency department at [facility] CT of the brain without contrast did not show any acute abnormality there is atrophy and microvascular finding. Found to be extremely hypertensive she was giving 1 L of IV saline and continue with 130 cc an hour she remained quite hypotensive she had anemia as well and found to be in A-fib with pulse rate running 110 beats per minutes her blood pressure still 80/60 she was started on vasopressor with norepinephrine was not having any chest pain or tightness at her proBNP was 18,800 with mildly elevated troponin. Her urine shows gross hematuria and has been having apparently problem with burning discomfort in bloody urine. She is on Eliquis for A-fib with RVR so she is on 2 Plavix since her angioplasty and stent early. 2 g of Rocephin was giving culture was done for blood and urine her hemoglobin initially was 8.8 and within few hours dropped down to 6 with hydration patient does not have any visual active GI bleed her BUN 54 creatinine 2.72 much worse than before lactic acid at 3.1. Patient was transferred to the ICU continue hydration, vasopressor, process for blood transfusion to be done. 03/06/2024: Continue to have gross hematuria causing more anemia despite a blood transfusion. Urology seen the patient and believe this is hemorrhagic cystitis aggravated by anticoagulation and they are recommending to irrigate the catheter when necessary still waiting for the urine culture to be finalized in the meanwhile she has remained on Rocephin 2 g daily. She is off vasopressor currently hemoglobin is up to 7.8. 2 unit of packed red cell transfusion. White blood cell is down 7.5 with normal platelet and creatinine improve down to 2.2 with bun of 43. Echocardiogram showed ejection fraction well-preserved with no significant valvular abnormality but mild left ventricular hypertrophy. Patient remain off anticoagulation and was giving 1 dose of Kcentra yesterday still holding on Eliquis and Plavix with cardiology restarted aspirin 81 mg a day. 03/07/2024: Continue to be on 4 L of oxygen to keep her pulse ox above 90 percentile, she had A-fib with RVR with significant worsening congestion of the lung consistent with more heart failure at this point. Started on Cardizem drip 10 mg an hour with her pulse remained above 100, hemoglobin still at 7.4 with normal platelet count creatinine 1.98 still been treated for urine positive for Klebsiella pneumonia with IV antibiotics at this point. Continue to have significant amount of hematuria mostly hemorrhagic cystitis and urology believe he can wait on doing cystoscopy to when she is stable as an outpatient. The kidney function slightly better still seen nephrology discussed that to be acute tubular necrosis nonoliguric secondary to hypotension anemia and sepsis to continue IV continue to treat UTI with no evidence of obstruction. 03/08/2024: Urine culture was positive for Klebsiella pneumonia which patient is responding well to IV Rocephin currently, hemodynamically become more stable, her hematuria has been much better and still having twinges of blood in the catheter. Respiratory failure [place] she is require between 2 and 3 L of O2 to keep her pulse ox above 90 percentile. She is still on Cardizem drip 5 mg an hour to keep pulse under 90 bpm also on Lopressor 50 mg twice a day and still on Eliquis 2.5 mg twice a day. Patient had slight pleural effusion advance diet mobility still significantly decreased and limited to bedrest currently. Nephrology wants her creatinine is down to 2.0 with GFR slightly bit better, continue hydration despite expansion of fluid overload causing more problem at this point. Hoping her creatinine will be down to its baseline before this happened. From cardiology standpoint ejection fraction on echo was well-preserved at 65-70 percentile with no significant valvular heart disease. Cardizem apparently is going to be stopped at some point soon try to monitor her pulse below 90 possible. 03/09/2024: Remain in ICU hemoglobin dropped down again to 6.5 blood transfusion process start again. Respiratory status is slightly better remain on 2 L of O2 at this point. She is still tachycardic running pulse rate around 100 2230 bpm despite being on metoprolol adding Cardizem for better pulse rate control. Her kidney function is better currently with creatinine down to 1.89, urology has no interest in doing cystoscopy at this point he still having a twinge of hematuria but not gross hematuria like before. After transfusions completed patient should be able to leave the ICU today cardiac floor on playground monitor. 03/12/2024: She was transferred out of the ICU on the weekend continue to be kirk kam and managed for severe hematuria with severe anemia, her hemoglobin is up to 8.1 does not require any further blood transfusion, stage IIIb chronic kidney disease with creatinine subtle around 1.87 no blood drawn done this morning yet awaiting for the result. Her hemorrhagic cystitis has been treated with Rocephin culture shows Klebsiella pneumonia susceptible to many antibiotics. Catheter can be probably removed in the next 24 hours and prepare for patient might benefit from going to SNF specially after being sick not able to move for several days. Urology came back with change in plan especially with 3 units of blood transfusion because of the severity of the hematuria and with persistent of hematuria for the last several days agreed to do cystoscopy and fulguration and probably remove clot from her bladder which will help to clear the hematuria a lot faster. 03/13/2024: She is doing much better, Streeter catheter is showing very clear urine today, still regaining bowel bladder with saline via 3 port catheter. Her hemoglobin is down to 8.4 is not requiring transfusion, creatinine has remained at 1.85 which is close to her regular baseline. She does remain on Rocephin 2 g a day which is her original culture with Klebsiella is susceptible to it. Hopefully with improvement and then able to finalize her antibiotic to oral antibiotics and no more bleed we are looking into probably discharge around or Tuesday to SNF. Or sooner as patient is able to participate with physical therapy she will be able to push elevated more with PT. 03/14/2024: Still having bladder irrigation with saline has not been having any more bleeding. Was evaluated by urology not happy with the result so far, Streeter catheter will be removed hopefully later today if she has remained without any hematuria we can initiate anticoagulation as addressed tomorrow. Infectious disease are agreeable to continue short course of antibiotic orally upon her discharge from the hospital culture was for Klebsiella pneumonia which is susceptible to everything except ampicillin and nitrofurantoin so short course of Ceftin for 5 days would be acceptable. Patient mobility is still significantly decreased currently required to do little bit more physical therapy. No more acute bleed requiring transfusion her hemoglobin remained around 8.4. Kidney function plateaued and stable at stage IIIb chronic kidney disease with creatinine at 1.85. Apparently patient is in contact with a social media analyst did talk originally about having wound care she absolutely refused to go to any assisted program [facility] she believes she might go stay with her daughter and area around [place] for a period of time till she is ready to come home. REVIEW OF SYSTEMS: CONSTITUTIONAL: Well-developed in no respiratory distress. EYES: No icterus sclerae, no conjunctivitis. EARS, NOSE, MOUTH, THROAT, and FACE: No sore throat, lymphadenopathy, carotid bruits or deformity. RESPIRATORY: Mild shortness of breath and dyspnea with no cough or wheezes. CARDIOVASCULAR: Positive palpitation and A-fib with no angina positive PND and orthopnea. GASTROINTESTINAL: No Abd pain, Nausea or vomiting, no Diarrhea or constipation, No GI Bleed, no distention or masses. GENITOURINARY: Negative for Hematuria or UTI, no kidney stones. INTEGUMENT/BREAST: Negative for any muscular injury with mild osteoarthritis.. HEMATOLOGIC/LYMPHATIC: Negative for bleed or purpura. MUSCULOSKELTAL: Negative for Myalgia or arthralgia. NEURLOGICAL: No LOC, Sz or syncope, blurred vision dizziness or abnormality.. BEHAVIORAL/PSYCH: Negative. ENDOCRINE: Negative. PHYSICAL EXAMINATION: General Appearance: Alert, cooperative, mild distress. Neck HEENT: Supple, no lymphadenopathy, no thyroid enlargement, no carotid bruits. Lungs: Decreased expansion bilaterally with fine rhonchi positive mild rhonchi but no wheezes. Chest Wall: Decreased expansion with deep inspiration no tenderness and no deformity was found on exam, no costochondral pain or discomfort. Heart: Irregular rate and rhythm, S1, S2 positive severe tachycardia positive ejection murmur. Back: Symmetric, no curvature, ROM normal, no CVA tenderness. Abdomen: Soft, non-tender, bowel sounds active all four quadrants, no masses, no organomegaly. Extremities: Trace edema without cyanotic. Pulses: 2+ and symmetric. Skin: Skin color, texture, tugor normal, no rashes or lesions. Neurologic: Alert oriented with slight confusion. Cranial nerves II through XII intact, no motor deficit, no abnormal balance or gait. ASSESSMENT AND PLAN: _Sepsis: Hemodynamically stable continue oral antibiotics after discharge to cover Klebsiella pneumonia patient remains on Rocephin currently. _Severe hematuria: Navigation system has been working. Hopefully patient can have her Streeter catheter removed she had cystoscopy and clot removal by urology. _A-fib with RVR pulse rates not well-controlled remain on metoprolol and Cardizem currently. Pulse rate running in the 90s. She is back to oral metoprolol only. Pulse rate is under control. _Acute kidney injury on chronic kidney disease: Still stage IIIb chronic kidney disease does not require any dialysis and almost close to her baseline kidney function [place], continue supportive care, avoid nephrotoxic and watch for any obstruction specially with her bleeding. _Acute blood loss anemia: Post 3 unit of blood transfusion hemoglobin stable above 8 no need for any more transfusion. _Acute systolic congestive heart failure with known coronary artery disease patient is still quite symptomatic will benefit from continued diuretic specially if we can slow down on too much IV fluid. 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 _Atherosclerotic heart disease: Post PCI and stent placement from October has been seeing cardiology currently not being able to reinitiate anticoagulation with Plavix and Eliquis for now. _Type 2 diabetes: Continue Accu-Chek and sliding scale coverage she is not on any insulin still on Farxiga 10 mg a day Eventually can benefit from adding back her oral GLP-1 product. _Anticoagulation management: Patient will be back on oral_anticoagulation as early as tomorrow if no further bleed and her catheter resolved with no hemat uria. _Hyperlipidemia: Continue atorvastatin 20 mg a day. _Hypothyroidism: Continue levothyroxine 25 mcg daily. _GI prophylaxis: Will be on pantoprazole 40 mg daily. CODE STATUS: Full code. Discussion: Still have slight confusion I would love for the social media analyst to contact family to confirm discharge planning as apparently patient is absolutely against going to any rehab program after leaving the hospital knowing she has been very debilitated almost bedridden for the last several days will try to attempt PT and OT and prepare hopefully for discharge in the next day or 2. Objective - Vital Signs Vital signs: Vital Signs Temp 97.5 F L 03/14/24 04:00 Pulse 83 03/14/24 04:00 Resp 17 03/14/24 04:00 BP 116/59 03/14/24 04:00 Pulse Ox 99 03/14/24 04:00 FiO2 Intake & Output 03/13/24 03/13/24 03/14/24 06:59 18:59 06:59 Intake Total 1176 Output Total 3250 2900 650 Balance -3250 -1724 -650 Weight 68.7 kg Intake: Oral 1176 Output: Urine 3250 2900 650 Other: Voiding Method Indwelling Catheter Indwelling Catheter Indwelling Catheter - Labs CBC & Chem 7: 03/13/24 10:17 03/13/24 10:17 Labs: Abnormal Lab Results - Last 24 Hours (Table) 03/13/24 03/13/24 03/13/24 Range/Units 10:17 10:17 10:17 RBC 3.02 L (3.80-5.40) m/uL Hgb 8.4 L (11.4-16.0) gm/dL Hct 27.0 L (34.0-46.0) % RDW 20.9 H (11.5-15.5) % Chloride 110 H (98-107) mmol/L Carbon Dioxide 21 L (22-30) mmol/L BUN 34 H (7-17) mg/dL Creatinine 1.85 H (0.52-1.04) mg/dL Glucose 207 H (74-99) mg/dL POC Glucose (mg/dL) (70-110) mg/dL Calcium 7.7 L (8.4-10.2) mg/dL Iron 37 L (50-170) UG/DL TIBC 227 L (228-460) UG/DL Transferrin 162.0 L (204.0-354.0) mg/dL Total Protein 5.4 L (6.3-8.2) g/dL Albumin 2.4 L (3.5-5.0) g/dL 03/13/24 03/13/24 03/13/24 Range/Units 11:35 16:41 19:56 RBC (3.80-5.40) m/uL Hgb (11.4-16.0) gm/dL Hct (34.0-46.0) % RDW (11.5-15.5) % Chloride (98-107) mmol/L Carbon Dioxide (22-30) mmol/L BUN (7-17) mg/dL Creatinine (0.52-1.04) mg/dL Glucose (74-99) mg/dL POC Glucose (mg/dL) 225 H 184 H 222 H (70-110) mg/dL Calcium (8.4-10.2) mg/dL Iron (50-170) UG/DL TIBC (228-460) UG/DL Transferrin (204.0-354.0) mg/dL Total Protein (6.3-8.2) g/dL Albumin (3.5-5.0) g/dL
[2024-03-15 08:28] LABS: Anisocytosis Moderate; HCT 29.7 % (34.0-46.0); HGB 8.8 gm/dL (11.4-16.0); Hypochromasia Marked; MCH 27.4 pg (25.0-35.0); MCHC 29.6 g/dL (31.0-37.0); MCV 92.4 fL (80.0-100.0); Macrocytosis Slight; Mean Platelet Volume 7.6; Platelet Count 402 k/uL (150-450); Poikilocytosis Slight; RBC 3.21 m/uL (3.80-5.40); RDW 20.6 % (11.5-15.5); WBC 7.8 k/uL (3.8-10.6)
--- NOTE | 2024-03-15 08:51 | XR ---
EXAMINATION TYPE: XR chest 2V DATE OF EXAM: 03/15/2024 COMPARISON: 03/11/2024 HISTORY: Shortness of breath TECHNIQUE: Frontal and lateral views of the chest are obtained. FINDINGS: Scattered senescent parenchymal changes noted. Hyperinflation compatible with COPD. No evidence for infiltrate. No evidence for atelectasis. Heart size is stable. Mediastinal structures are stable and grossly unremarkable. No evidence for hilar prominence. Degenerative changes dorsal spine. IMPRESSION: 1. No evidence for acute pulmonary disease.
[2024-03-15] MEDS ORDERED: CEFDINIR 300 MG CAP PO SCH (09:00)
[2024-03-15] MEDS: SODIUM BICARBONATE TAB 650 MG TAB PO SCH (09:11)
[2024-03-15] MEDS: FUROSEMIDE 40 MG TAB PO SCH (09:11)
[2024-03-15] MEDS: CEFDINIR 300 MG CAP PO SCH (09:12)
[2024-03-15 09:16] LABS: ALT 15 U/L (4-34); AST 26 U/L (14-36); African American GFR (CKD) 30 (>60 ml/min/1.73 sqM); Albumin 2.4 g/dL (3.5-5.0); Alkaline Phosphatase 133 U/L (38-126); Anion Gap 5 mmol/L; Blood Urea Nitrogen 36 mg/dL (7-17); Calcium 7.6 mg/dL (8.4-10.2); Carbon Dioxide 24 mmol/L (22-30); Chloride 109 mmol/L (98-107); Glucose 157 mg/dL (74-99); Non-African American GFR(CKD) 26 (>60 ml/min/1.73 sqM); Potassium 4.1 mmol/L (3.5-5.1); Sodium 138 mmol/L (137-145); Total Bilirubin 0.3 mg/dL (0.2-1.3); Total Protein 5.7 g/dL (6.3-8.2)
--- NOTE | 2024-03-15 10:56 | P.PN ---
Subjective Patient is seen in follow-up for chronic kidney disease. Renal function stable. Oral intake fair. Denies chest pain or shortness of breath. Vital signs are stable. General: No acute distress. HEENT: Head exam is unremarkable. LUNGS: No audible rhonchi or wheezes. HEART: Rate and Rhythm are regular. ABDOMEN: Nontender. EXTREMITITES: No edema. Objective - Vital Signs Vital signs: Vital Signs Temp 97.8 F 03/15/24 03:50 Pulse 105 H 03/15/24 08:00 Resp 16 03/15/24 08:00 BP 112/55 03/15/24 08:00 Pulse Ox 98 03/15/24 08:00 FiO2 Intake & Output 03/14/24 03/15/24 03/15/24 18:59 06:59 18:59 Intake Total 1186 0 918 Output Total 850 800 Balance 336 -800 918 Intake: Oral 1186 0 918 Output: Urine 850 800 Other: Voiding Method External Catheter External Catheter External Catheter - Labs CBC & Chem 7: 03/15/24 08:07 03/15/24 08:07 Labs: Abnormal Lab Results - Last 24 Hours (Table) 03/14/24 03/14/24 03/14/24 Range/Units 11:26 11:52 16:38 RBC (3.80-5.40) m/uL Hgb (11.4-16.0) gm/dL Hct (34.0-46.0) % MCHC (31.0-37.0) g/dL RDW (11.5-15.5) % Chloride (98-107) mmol/L BUN (7-17) mg/dL Creatinine (0.52-1.04) mg/dL Glucose (74-99) mg/dL POC Glucose (mg/dL) 184 H 175 H 156 H (70-110) mg/dL Calcium (8.4-10.2) mg/dL Alkaline Phosphatase (38-126) U/L Total Protein (6.3-8.2) g/dL Albumin (3.5-5.0) g/dL 03/14/24 03/15/24 03/15/24 Range/Units 20:23 06:00 08:07 RBC 3.21 L (3.80-5.40) m/uL Hgb 8.8 L (11.4-16.0) gm/dL Hct 29.7 L (34.0-46.0) % MCHC 29.6 L (31.0-37.0) g/dL RDW 20.6 H (11.5-15.5) % Chloride (98-107) mmol/L BUN (7-17) mg/dL Creatinine (0.52-1.04) mg/dL Glucose (74-99) mg/dL POC Glucose (mg/dL) 212 H 141 H (70-110) mg/dL Calcium (8.4-10.2) mg/dL Alkaline Phosphatase (38-126) U/L Total Protein (6.3-8.2) g/dL Albumin (3.5-5.0) g/dL 03/15/24 Range/Units 08:07 RBC (3.80-5.40) m/uL Hgb (11.4-16.0) gm/dL Hct (34.0-46.0) % MCHC (31.0-37.0) g/dL RDW (11.5-15.5) % Chloride 109 H (98-107) mmol/L BUN 36 H (7-17) mg/dL Creatinine 1.82 H (0.52-1.04) mg/dL Glucose 157 H (74-99) mg/dL POC Glucose (mg/dL) (70-110) mg/dL Calcium 7.6 L (8.4-10.2) mg/dL Alkaline Phosphatase 133 H (38-126) U/L Total Protein 5.7 L (6.3-8.2) g/dL Albumin 2.4 L (3.5-5.0) g/dL Assessment and Plan Plan: Assessment: 1. Acute kidney injury secondary to ATN secondary to hypotension and acute blood loss anemia. No obstruction noted on imaging. Creatinine was 2.72 on admission and stable at 1.82 today. 2. Chronic kidney disease stage IIIb with baseline creatinine 1.6-1.8. 3. Klebsiella UTI on antibiotics. 4. Acute blood loss anemia with gross hematuria secondary to hemorrhagic cystitis. Urology following. Hemoglobin stable. Iron deficiency noted. 5. Metabolic acidosis secondary to chronic kidney disease. On oral bicarb. Better. Plan: Encouraged oral intake. Avoid nephrotoxins. Continue to monitor renal function and urine output. Preserved ejection fraction noted on echocardiogram. Maintain IV iron. Follow-up outpatient 1 to 2 weeks postdischarge.
[2024-03-15 11:41] LABS: Glucose,Whole Blood 153 mg/dL (70-110)
--- NOTE | 2024-03-15 13:47 | P.PN ---
Subjective Progress Note Date: 03/15/24 Catheter removed yesterday, patient currently has an external catheter with blood-tinged urine. Denies any abdominal pain. Hemoglobin is stable Objective - Vital Signs Vital signs: Vital Signs Temp 97.8 F 03/15/24 03:50 Pulse 96 03/15/24 12:00 Resp 16 03/15/24 08:00 BP 120/86 03/15/24 12:00 Pulse Ox 98 03/15/24 12:00 FiO2 Intake & Output 03/14/24 03/15/24 03/15/24 18:59 06:59 18:59 Intake Total 1186 0 1518 Output Total 850 800 Balance 336 -800 1518 Intake: IV 0 0.9 KVO 0 cefTRIAXone 2 gm In 0 Sodium Chloride 0.9% 50 ml @ 100 mls/hr IVPB Q24HR [facility] Rx#:[id number] Intake, IV Titration 0 Amount Sodium Ferric Gluconat- 0 Sucrose 125 mg In Sodium Chloride 0.9% 100 ml @ 100 mls/hr IVPB DAILY [facility] Rx#:[id number] Oral 1186 0 1518 Output: Urine 850 800 Other: Voiding Method External Catheter External Catheter External Catheter - Constitutional General appearance: Present: no acute distress - Gastrointestinal General gastrointestinal: Present: soft. Absent: distended, tenderness - Labs CBC & Chem 7: 03/15/24 08:07 03/15/24 08:07 Labs: Abnormal Lab Results - Last 24 Hours (Table) 03/14/24 03/14/24 03/15/24 Range/Units 16:38 20:23 06:00 RBC (3.80-5.40) m/uL Hgb (11.4-16.0) gm/dL Hct (34.0-46.0) % MCHC (31.0-37.0) g/dL RDW (11.5-15.5) % Chloride (98-107) mmol/L BUN (7-17) mg/dL Creatinine (0.52-1.04) mg/dL Glucose (74-99) mg/dL POC Glucose (mg/dL) 156 H 212 H 141 H (70-110) mg/dL Calcium (8.4-10.2) mg/dL Alkaline Phosphatase (38-126) U/L Total Protein (6.3-8.2) g/dL Albumin (3.5-5.0) g/dL 03/15/24 03/15/24 03/15/24 Range/Units 08:07 08:07 11:40 RBC 3.21 L (3.80-5.40) m/uL Hgb 8.8 L (11.4-16.0) gm/dL Hct 29.7 L (34.0-46.0) % MCHC 29.6 L (31.0-37.0) g/dL RDW 20.6 H (11.5-15.5) % Chloride 109 H (98-107) mmol/L BUN 36 H (7-17) mg/dL Creatinine 1.82 H (0.52-1.04) mg/dL Glucose 157 H (74-99) mg/dL POC Glucose (mg/dL) 153 H (70-110) mg/dL Calcium 7.6 L (8.4-10.2) mg/dL Alkaline Phosphatase 133 H (38-126) U/L Total Protein 5.7 L (6.3-8.2) g/dL Albumin 2.4 L (3.5-5.0) g/dL Assessment and Plan Assessment: 83-year-old female with history of gross hematuria, is having persistent hematuria, has required 3 units of blood transfusion since admission. Underwent cystoscopy clot EVAC on March 12, findings consistent with radiation cystitis, no malignant lesions identified. 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
--- NOTE | 2024-03-15 14:11 | P.PN ---
Subjective Progress Note Date: 03/15/24 Principal diagnosis: Acute urinary tract infection secondary to Klebsiella pneumoniae and hematuria Patient is a 83-year-old white female with past medical history significant for coronary artery disease with recent stent, valvular heart disease, atrial fibrillation anticoagulated on Eliquis, hypertension, diabetes mellitus, uterine cancer. Of note, patient had a recent hospitalization September, for non-ST elevation [place] and received a stent to the LAD. Patient presented to emergency room yesterday afternoon with a chief complaint of generalized weakness and fatigue and she had a fall. She was apparently in the bathroom where she went to get up and became lightheaded and fell. She states that her son was at work at this time, he found her when he came home. She was on the ground for a couple hours. States that she did hit her head and right chest. Did not have anything to eat or drink all day. Her son was the one that called 911. She states that over the last several days she has been generally weak. CT of the brain without contrast did not show any acute intracranial abnormality. There is atrophy and chronic microvessel ischemic white matter changes. While being evaluated by the ER room physician, she was noted to be hypotensive. She has been fluid resuscitated with 1 L of normal saline bolus, and currently has normal saline infusing at 130 MLS per hour. She does take midodrine outpatient. After the 1 L normal saline bolus, patient remained hypotensive, and my supervising physician recommended ICU monitoring. Patient is currently in the emergency department, room 7. She appears fairly comfortable. She is on room air. SpO2 100%. Blood pressure currently 85/61 mmHg. Heart rhythm appears to be atrial fibrillation with a rate of 118 bpm. Norepinephrine has not been started yet. She denies any radiating chest pain, there is some localized reproducible right-sided chest pain where she impacted on fall. Denies any heart palpitations or syncopal events. She has a pure wick suction catheter, there is presumed gross hematuria in the canister. She is not able to tell me how long this has been occurring for. She denies kidney stones. She is on Eliquis outpatient. Patient does admit to some continuous pelvic discomfort/ pressure. No flank pain. No burning with urination, no increased urinary frequency. She is chronically incontinent to urine. She has noted blood clots in her underwear. She has remote history of uterine cancer. She does not think this is vaginal bleeding. She received a dose of Rocephin in the emergency room for possible UTI. Urinalysis showing hina blood and WBCs. Culture is pending. She is afebrile. CBC without leukocytosis. Hemoglobin 8.8 g/dL, hematocrit 28.7. Platelets 471. CMP on arrival: Sodium 130, potassium 3.3, chloride 98, serum bicarb 23, BUN 54, creatinine 2.72, glucose 275. Lactic acid originally 3.1 and down to 1.7. LFTs not elevated. EKG done on arrival showed atrial fibrillation with a rate of [address] depressions in the lateral leads. Troponin less than 0.012. NT proBNP 19,900. Chest x-ray shows stable cardiac silhouette, no pulmonary vascular congestion or edema, no acute infiltrates, no pleural effusions or pneumothoraces. She is going to be monitored in the intensive care unit, and transferred once bed available. On 03/06/2024, the patient continues to have hematuria although this has somewhat improved compared to yesterday. Urine output is still bloody and the intensity of the blood is less compared to yesterday. Noted the patient drop in hemoglobin yesterday down to 6.8 and she was given additional unit of packed RBC making a total of 2 units of packed RBC and hemoglobin is currently up to 7.8. She remains on normal saline at the rate of 130 cc an hour. The norepinephrine infusion was discontinued around 5:00 this morning. She is in atrial fibrillation. She is slightly tachycardic. Urine culture is showing gram-negat lcay bacillus and the patient is currently on IV Rocephin. The WBC count is at 7.5, hemoglobin 7.8 and a platelet count of 351. Creatinine is improving is currently down to 2.2 again of 43, serum bicarb is at 17 with a sodium level of 135 and a potassium level of 3.4 and this needs to be replaced. The cortisol level is at 19.2. This was a random cortisol level. Echocardiogram was also done on 03/05/2024 revealing a ejection fraction of 65 to 70%, small LV cavity, mildly increased septal wall thickening, mild increase in the posterior wall thickening, no significant valvular abnormalities noted. Mild LVH. Noted the patient was given Kcentra yesterday. The patient is currently off antico agulation. 03/07/2024, the patient is being seen for a follow-up. Patient is doing well. The patient is not having any active hematuria at this point in time. The hematuria has subsided. She is currently on 4 L of oxygen by nasal cannula. She has been off norepinephrine since 5 AM this morning. IV fluids are currently at KVO. The patient however developed atrial fibrillation with rapid ventricular response 6 PM yesterday. Her lungs are also congested. Based on that, she was given a dose of Lasix in the morning. She is currently on a Cardizem drip running at 10 mg an hour. She remains calm and comfortable. No significant chest pain. The white count of 10.6 with a hemoglobin 7.4 and a platelet count of 345. BUN 33 with a creatinine of 1.98 and the sodium is at 137. Urine culture is positive for Klebsiella pneumonia. 03/08/2024, the patient is not having any hematuria. She was diagnosed having a Klebsiella pneumoniae urine tract infection with secondary hematuria and hemat uria has subsided. The patient remains on IV Rocephin. Hemodynamically stable on no pressors. Still on Cardizem drip which is running at 5 mg hour. She is also on Lopressor current dose of 50 mg p.o. twice a day. Anticoagulation was restarted by the medical group and the patient is currently on Eliquis 2.5 mg p.o. twice a day. She remains on oxygen and she is currently on 2 L nasal cannula. Some limited cough and congestion. Chest x-ray was done and showed improving interstitial pattern which was attribute to pulmonary vascular congestion/venous congestion and a stable tiny left lower lobe effusion. Otherwise, no other new complaints. Tolerating diet. No chest pain. the patient is still having hematuria on today's evaluation on 03/09/2024, the patient is having hematuria. Noted aspirin and Eliquis was restarted back by cardiology. As such, the patient developed hematuria and the medications were essentially discontinued. Hemoglobin dropped down to 6.5 and the patient is going to be receiving 1 unit of packed RBC. She is also having some liquid diarrhea. Will check stool for C. difficile. The patient remains in atrial fibrillation. She remains quite tachycardic and she is currently on metoprolol 50 mg p.o. 3 times daily. Will add Cardizem for better rate control. The patient remains on IV Rocephin. White cell count is 7.2, platelet count 273, creatinine is down to 1.89 with a BUN of 31 and a sodium levels of 133. No other significant events overnight. She is awake and alert and communicating. No signs of any significant respiratory distress. Chest x-ray findings were stable and improving. On today's evaluation of 03/10/2024, I am seeing the patient for a follow-up. Unfortunately, the patient continues to have hematuria. Urology is on the case. No plans for cystoscopy at this point in time and the patient is currently off anticoagulation. Repeat hemoglobin from today is down to 7.9. The white cell count is 7.3. The patient's renal function is stable with a BUN of 30 creatinine 1.8. Serum bicarb is at 20. The patient remains on oxygen on room air. No significant respiratory distress. No other complaints otherwise for now. She remains on IV Rocephin. Urology on the case. 03/11/2024, the patient is being seen for a follow-up. She is having some hematuria although urine output seems to be less bloody compared to yesterday. Hemoglobin is at 8.1 which is essentially stable compared to yesterday. Creatinine is also stable at 1.8. The patient is currently on room air oxygen. Urology on the case. The patient remains in atrial fibrillation. Rate is controlled and the patient is off Eliquis. Patient was reevaluated today on 03/12/2024, patient is complaining of some shortness of breath on exertion, no chest pain, no palpitations, continues to have hematuria, scheduled to have cystoscopy by urology today and clot evac uation. Patient is on room air, O2 saturation is 98%, does not seem to be in any form of distress. Patient had no labs today except for blood sugar of 209 and significantly elevated BNP level, her WBC count yesterday was 6.8 with a hemoglobin of 8.1, and relatively normal basic metabolic profile, BUN of 28 and creatinine of 1.87. Chest x-ray yesterday showed very minimal tiny left-sided pleural effusion otherwise unremarkable Patient was evaluated today on 03/13/2024, feeling better, no further episodes of hematuria, patient was seen by urology yesterday, underwent cystoscopy and clot evaluation. No evidence of malignancy involving the urinary bladder, patient was noted to have diffuse oozing and felt to be more of a picture of cystitis/infection. WBC count is 8.7 hemoglobin 8.4 basic metabolic profile is normal BUN is 34 creatinine 1.85, her renal functioning is being addressed by nephrology, patient developed acute kidney injury secondary to ATN secondary to hypotension and acute blood loss. No evidence of obstructive uropathy Patient was seen today on 03/14/2024, patient is doing well, relatively asymptomatic. No symptoms of UTI, no shortness of breath no cough no wheezing no chest pain. Her urine has completely cleared, and there is no evidence of gross hematuria. Remains on antibiotics for UTI. Her basic metabolic profile is normal creatinine 1.85 WBC count is 8.7 hemoglobin is 8.4 Seen today on 03/15/2024, patient continues to do extremely well, relatively asy mptomatic. Cough no wheezing no shortness of breath no chest pain. No symptoms of UTI. Objective - Vital Signs Vital signs: Vital Signs Temp 97.8 F 03/15/24 03:50 Pulse 96 03/15/24 12:00 Resp 16 03/15/24 08:00 BP 120/86 03/15/24 12:00 Pulse Ox 98 03/15/24 12:00 FiO2 Intake & Output 03/14/24 03/15/24 03/15/24 18:59 06:59 18:59 Intake Total 1186 0 1518 Output Total 850 800 Balance 336 -800 1518 Intake: IV 0 0.9 KVO 0 cefTRIAXone 2 gm In 0 Sodium Chloride 0.9% 50 ml @ 100 mls/hr IVPB Q24HR [facility] Rx#:[id number] Intake, IV Titration 0 Amount Sodium Ferric Gluconat- 0 Sucrose 125 mg In Sodium Chloride 0.9% 100 ml @ 100 mls/hr IVPB DAILY [facility] Rx#:[id number] Oral 1186 0 1518 Output: Urine 850 800 Other: Voiding Method External Catheter External Catheter External Catheter - Exam GENERAL EXAM: revealed 83-year-old female in no distress, on room air, HEAD: Normocephalic and atraumatic EYES: Normal reaction of pupils, equal size. NOSE: Clear with pink turbinates. THROAT: No erythema or exudates. NECK: No masses, no JVD. CHEST: No chest wall deformity. LUNGS: Clear throughout no significant findings on the chest. CVS: Normal S1-S2, no S3 gallop. 2/6 systolic murmur throughout the precordium, irregular rhythm ABDOMEN: No hepatosplenomegaly, active bowel sounds, no guarding or rigidity. SKIN: No rashes, generalized pallor CENTRAL NERVOUS SYSTEM: Alert and oriented x 3 no gross deficit EXTREMITIES: Trace of bipedal edema - Labs CBC & Chem 7: 03/15/24 08:07 03/15/24 08:07 Labs: Abnormal Lab Results - Last 24 Hours (Table) 03/14/24 03/14/24 03/15/24 Range/Units 16:38 20:23 06:00 RBC (3.80-5.40) m/uL Hgb (11.4-16.0) gm/dL Hct (34.0-46.0) % MCHC (31.0-37.0) g/dL RDW (11.5-15.5) % Chloride (98-107) mmol/L BUN (7-17) mg/dL Creatinine (0.52-1.04) mg/dL Glucose (74-99) mg/dL POC Glucose (mg/dL) 156 H 212 H 141 H (70-110) mg/dL Calcium (8.4-10.2) mg/dL Alkaline Phosphatase (38-126) U/L Total Protein (6.3-8.2) g/dL Albumin (3.5-5.0) g/dL 03/15/24 03/15/24 03/15/24 Range/Units 08:07 08:07 11:40 RBC 3.21 L (3.80-5.40) m/uL Hgb 8.8 L (11.4-16.0) gm/dL Hct 29.7 L (34.0-46.0) % MCHC 29.6 L (31.0-37.0) g/dL RDW 20.6 H (11.5-15.5) % Chloride 109 H (98-107) mmol/L BUN 36 H (7-17) mg/dL Creatinine 1.82 H (0.52-1.04) mg/dL Glucose 157 H (74-99) mg/dL POC Glucose (mg/dL) 153 H (70-110) mg/dL Calcium 7.6 L (8.4-10.2) mg/dL Alkaline Phosphatase 133 H (38-126) U/L Total Protein 5.7 L (6.3-8.2) g/dL Albumin 2.4 L (3.5-5.0) g/dL Assessment and Plan Assessment: Impression: Acute urinary tract infection with hematuria and possible cystitis secondary to Klebsiella pneumonia infection. Acute blood loss anemia secondary to hematuria Severe dehydration and hypovolemia Acute on chronic kidney disease Chronic A-fib, on beta-blockers and on anticoagulation therapy Chronic microcytic, hypochromic anemia, received a total of 3 units of packed RBCs since admission Coronary artery disease, with recent PCI/stent to the LAD performed 10/28/2023 History of mild to moderate mitral regurgitation, preserved LV function History of diabetes mellitus, type II History of hypothyroidism Chronic kidney disease stage III History of hyperlipidemia Remote history of uterine CA Recommendation: Continue Rocephin, 2 g every 24 hours. Chest x-ray today is reassuring, no evidence of infiltrate and no evidence of pulmonary edema. Continue to monitor renal profile on a daily basis IV fluids at [facility] Consider discharge planning if cleared by other consultants Will continue to follow Time with Patient: Less than 30
[2024-03-15 14:46] VITALS: BMI 27.8
--- NOTE | 2024-03-15 16:02 | P.PN ---
Subjective Progress Note Date: 03/15/24 HISTORY OF PRESENTING ILLNESS 83-year-old with past medical history of paroxysmal atrial fibrillation, hypertension, dyslipidemia, CKD, chronic diastolic heart failure, last NSTEMI in October 2023 requiring heart cath showing 80% left main stenosis and mid LAD 60 to 70% stenosis with ASSISTANT BROKER of LCx. She underwent PCI of left main into LAD. Patient has also had multiple hospital visits with A-fib RVR's past. There is also concern of noncompliance to medications. It is unclear if patient has been taking dual antiplatelet therapy since her PCI. This time patient presented to the hospital because of generalized weakness and fatigue and a fall. Apparently patient was found in the bathroom. Patient reported that she became severely lightheaded and could not get up from the sitting position in the bathroom commode. She was down for few hours before her son found her and called the EMS. On admission she was hypotensive and dehydrated along with atrial fibrillation with RVR. Her blood pressure was 80 over 60 mmHg. ECG showed atrial fibrillation with heart rate in the beats were minute, incomplete left bundle branch block with diffuse ST depressions Her labs showed NT proBNP of 18,000, troponin of 0.067, repeat 0.72. Creatinine 2.49, baseline creatinine 1.6 Chest x-ray did not show significant pulm congestion. Pelvic CT showed hypodensity seen in the urinary bladder may reflect blood byproducts. Echo July 2023: EF 55%, severe LVH, moderate MR, Echo February 2024, EF 65%, hyperdynamic LV, moderate LVH, no significant wall motion abnormality. March 06, 2024 Patient continues to have hematuria. It appears slightly better as compared to yesterday. Appears to have 20 to 30 cc/h urine output with slightly improved creatinine to 2.2 today. Hemoglobin is 7.8, platelet 351. She is s/p 2 units of blood transfusion 03/05/2024. Her echocardiogram showed an EF of 65 to 70%, small LV cavity, no significant valvular disease. On exam she reports having diarrhea. Reports feeling weak. Appears slightly dehydrated getting IV fluids. 03/07/2024 BP 92/62, heart rate 112 bpm, atrial fibrillation with RVR Hemoglobin 7.4. Yesterday it was 7.8. On admission 6.8. She is s/p unit blood transfusion since admission. Renal function has continued to improve, creatinine is 1.9 today. On admission 2.9. She has good urine output. Her hematuria has resolved. 03/08/2024 Patient continues to have significant diarrhea. Hemoglobin is stable. No further hematuria. Appropriate urine output with stable kidney function creatinine at 2 today. Yesterday 119 Patient's diarrhea is better after 1 dose of Imodium. Patient's hemoglobin is dropped to 6.5. Patient started having hematuria again. Will stop her Eliquis and Plavix. Will resume her on aspirin because of recent PCI. March 10, 2024 Blood pressure 107/59, heart rate 80 bpm, rafib rate controlled Patient's diarrhea has got better. She still has bright red urine concerning of hemorrhagic cystitis. She had 1 unit of blood transfusion done yesterday. In total she has got 3 units of blood transfusion since admission. March 11, 2024, BP 110/60, rate controlled afib, still having dark red urine, renal function is holding , no chest pain or shortness of breath. 03/12 Patient complains of dyspnea on exertion. No chest pain. She also complains of dizziness. Patient noted to have gross hematuria in Streeter catheter bag. Patient is scheduled for procedure today with Dr. Lawrence. Blood pressure 113/64, heart rate 117, pulse ox 100% on room air. Eliquis and Plavix are on hold. 03/13 Patient continues to be in A-fib heart rate jumps up to the 120s just before her medications are due and then normalizes after. She states she had a better night. She has shortness of breath with activity but stable at rest. She complains of jumpy legs. Yesterday, she underwent procedure with urology and plan is for holding anticoagulation. She only has a very slight pink color to urine in Streeter bag. Blood pressure 120/79, heart rate 103, pulse ox 94% on room air. Repeat blood work reveals hemoglobin 8.4. BUN 34 creatinine 1.85. Potassium 4.3. 03/14 Patient states that she did not sleep well due to her legs feeling heavy. Urine has been clear and Streeter catheter may be removed today. Dr. Chavez has recommended that anticoagulation may be resumed tomorrow. Patient is hoping for discharge home. Blood pressure 113/55, heart rate 80, pulse ox 98% on room air. 03/15 Patient is being prepared for discharge home today. Plan is for her to go home with her daughter. She denies any palpitations no chest pain. Blood pressure 120/86, heart rate 96, pulse ox 98% on room air. Repeat blood work reveals hemoglobin is 8.8, BUN 36 creatinine 1.82. Patient has been cleared to start back on anticoagulation which will be started tonight. PHYSICAL EXAMINATION Head: Normocephalic. Eyes: Sclerae nonicteric. Neck: Brisk carotid upstroke, no jugular venous distention. Lungs: Bilateral rhonchi. Heart: irregular pulse, S1-S2, 2/6 systolic murmur . Abdomen: Soft nontender, positive bowel sounds. Extremities: 1+ edema in leg , non pitting Neuro: no focal deficits. Detailed neuro exam was not performed. ASSESSMENT Elevated troponin, likely type II NSTEMI in setting of BOLA, sepsis and anemia Acute on chronic systolic heart failure, CAD s/p PCI in October 2023. S/p PCI to left main into LAD 4 x 15 mm PRANAY Paroxysmal Atrial fibrillation. Currently Afib, Acute blood loss anemia due to hematuria s/p 2 U PRBC Severe sepsis BOLA on CKD, BOLA resolved. Hyperlipidemia Hypothyroidism Medication non compliance PLAN Continue patient on aspirin 81 mg. Patient will be started back on Eliquis 2.5 mg twice daily Continue metoprolol 100 mg twice daily. Continue patient on Farxiga 10 mg daily Patient is cleared for discharge from cardiology and may follow-up in the office in 1 to 2 weeks. Nurse practitioner note has been reviewed, I agree with documented findings and plan of care. Patient was seen and examined. Objective - Vital Signs Vital signs: Vital Signs Temp 97.8 F 03/15/24 03:50 Pulse 96 03/15/24 12:00 Resp 16 03/15/24 08:00 BP 120/86 03/15/24 12:00 Pulse Ox 98 03/15/24 12:00 FiO2 Intake & Output 03/14/24 03/15/24 03/15/24 18:59 06:59 18:59 Intake Total 1186 0 918 Output Total 850 800 Balance 336 -800 918 Intake: IV 0 0.9 KVO 0 cefTRIAXone 2 gm In 0 Sodium Chloride 0.9% 50 ml @ 100 mls/hr IVPB Q24HR [facility] Rx#:[id number] Intake, IV Titration 0 Amount Sodium Ferric Gluconat- 0 Sucrose 125 mg In Sodium Chloride 0.9% 100 ml @ 100 mls/hr IVPB DAILY [facility] Rx#:[id number] Oral 1186 0 918 Output: Urine 850 800 Other: Voiding Method External Catheter External Catheter External Catheter - Labs CBC & Chem 7: 03/15/24 08:07 03/15/24 08:07 Labs: Abnormal Lab Results - Last 24 Hours (Table) 03/14/24 03/14/24 03/15/24 Range/Units 16:38 20:23 06:00 RBC (3.80-5.40) m/uL Hgb (11.4-16.0) gm/dL Hct (34.0-46.0) % MCHC (31.0-37.0) g/dL RDW (11.5-15.5) % Chloride (98-107) mmol/L BUN (7-17) mg/dL Creatinine (0.52-1.04) mg/dL Glucose (74-99) mg/dL POC Glucose (mg/dL) 156 H 212 H 141 H (70-110) mg/dL Calcium (8.4-10.2) mg/dL Alkaline Phosphatase (38-126) U/L Total Protein (6.3-8.2) g/dL Albumin (3.5-5.0) g/dL 03/15/24 03/15/24 03/15/24 Range/Units 08:07 08:07 11:40 RBC 3.21 L (3.80-5.40) m/uL Hgb 8.8 L (11.4-16.0) gm/dL Hct 29.7 L (34.0-46.0) % MCHC 29.6 L (31.0-37.0) g/dL RDW 20.6 H (11.5-15.5) % Chloride 109 H (98-107) mmol/L BUN 36 H (7-17) mg/dL Creatinine 1.82 H (0.52-1.04) mg/dL Glucose 157 H (74-99) mg/dL POC Glucose (mg/dL) 153 H (70-110) mg/dL Calcium 7.6 L (8.4-10.2) mg/dL Alkaline Phosphatase 133 H (38-126) U/L Total Protein 5.7 L (6.3-8.2) g/dL Albumin 2.4 L (3.5-5.0) g/dL
[2024-03-15 16:34] LABS: Glucose,Whole Blood 162 mg/dL (70-110)
[2024-03-15 20:25] LABS: Glucose,Whole Blood 178 mg/dL (70-110)
[2024-03-15] MEDS: APIXABAN 2.5 MG TABLET PO SCH (20:44)
--- NOTE | 2024-03-15 22:49 | P.PN ---
Subjective Progress Note Date: 03/15/24 HISTORY OF PRESENT ILLNESS: 83-year-old office patient with active medical history of Paroxysmal atrial fibrillation was on anticoagulation, history of hypertension, hyperlipidemia, stage III chronic kidney disease, chronic diastolic congestive heart failure, who also had recently history of non-ST ND with heart cath showed CAD including left main at 80% stenosis with mild LAD at 60 to 70% stenosis with circumflex 100% stenosis ended up having PCI of the left main and LAD, patient had multiple visits to the emergency department last few months with recurrent A-fib with RVR with similar claimed that she ran out of medication, she stopped taking medication a week ago, and many other. Sadly since her angioplasty and stent placement and the harm of not being on dual antiplatelet agent and her current medications extremely dangerous despite explaining this to the patient it looks like this event keep happening. She was hospitalized again in November for A-fib with RVR along with elevated troponin and anemia. She has been complaining of generalized weakness and fatigue post fall she apparently found in the bathroom developed severe lightheadedness and fell her son found her after work she was down for total hours she hit her head and right chest area has not had anything to eat or drink all day Call 911 patient brought to the emergency department at [facility] CT of the brain without contrast did not show any acute abnormality there is atrophy and microvascular finding. Found to be extremely hypertensive she was giving 1 L of IV saline and continue with 130 cc an hour she remained quite hypotensive she had anemia as well and found to be in A-fib with pulse rate running 110 beats per minutes her blood pressure still 80/60 she was started on vasopressor with norepinephrine was not having any chest pain or tightness at her proBNP was 18,800 with mildly elevated troponin. Her urine shows gross hematuria and has been having apparently problem with burning discomfort in bloody urine. She is on Eliquis for A-fib with RVR so she is on 2 Plavix since her angioplasty and stent early. 2 g of Rocephin was giving culture was done for blood and urine her hemoglobin initially was 8.8 and within few hours dropped down to 6 with hydration patient does not have any visual active GI bleed her BUN 54 creatinine 2.72 much worse than before lactic acid at 3.1. Patient was transferred to the ICU continue hydration, vasopressor, process for blood transfusion to be done. 03/06/2024: Continue to have gross hematuria causing more anemia despite a blood transfusion. Urology seen the patient and believe this is hemorrhagic cystitis aggravated by anticoagulation and they are recommending to irrigate the catheter when necessary still waiting for the urine culture to be finalized in the meanwhile she has remained on Rocephin 2 g daily. She is off vasopressor currently hemoglobin is up to 7.8. 2 unit of packed red cell transfusion. White blood cell is down 7.5 with normal platelet and creatinine improve down to 2.2 with bun of 43. Echocardiogram showed ejection fraction well-preserved with no significant valvular abnormality but mild left ventricular hypertrophy. Patient remain off anticoagulation and was giving 1 dose of Kcentra yesterday still holding on Eliquis and Plavix with cardiology restarted aspirin 81 mg a day. 03/07/2024: Continue to be on 4 L of oxygen to keep her pulse ox above 90 percentile, she had A-fib with RVR with significant worsening congestion of the lung consistent with more heart failure at this point. Started on Cardizem drip 10 mg an hour with her pulse remained above 100, hemoglobin still at 7.4 with normal platelet count creatinine 1.98 still been treated for urine positive for Klebsiella pneumonia with IV antibiotics at this point. Continue to have significant amount of hematuria mostly hemorrhagic cystitis and urology believe he can wait on doing cystoscopy to when she is stable as an outpatient. The kidney function slightly better still seen nephrology discussed that to be acute tubular necrosis nonoliguric secondary to hypotension anemia and sepsis to continue IV continue to treat UTI with no evidence of obstruction. 03/08/2024: Urine culture was positive for Klebsiella pneumonia which patient is responding well to IV Rocephin currently, hemodynamically become more stable, her hematuria has been much better and still having twinges of blood in the catheter. Respiratory failure [place] she is require between 2 and 3 L of O2 to keep her pulse ox above 90 percentile. She is still on Cardizem drip 5 mg an hour to keep pulse under 90 bpm also on Lopressor 50 mg twice a day and still on Eliquis 2.5 mg twice a day. Patient had slight pleural effusion advance diet mobility still significantly decreased and limited to bedrest currently. Nephrology wants her creatinine is down to 2.0 with GFR slightly bit better, continue hydration despite expansion of fluid overload causing more problem at this point. Hoping her creatinine will be down to its baseline before this happened. From cardiology standpoint ejection fraction on echo was well-preserved at 65-70 percentile with no significant valvular heart disease. Cardizem apparently is going to be stopped at some point soon try to monitor her pulse below 90 possible. 03/09/2024: Remain in ICU hemoglobin dropped down again to 6.5 blood transfusion process start again. Respiratory status is slightly better remain on 2 L of O2 at this point. She is still tachycardic running pulse rate around 100 2230 bpm despite being on metoprolol adding Cardizem for better pulse rate control. Her kidney function is better currently with creatinine down to 1.89, urology has no interest in doing cystoscopy at this point he still having a twinge of hematuria but not gross hematuria like before. After transfusions completed patient should be able to leave the ICU today cardiac floor on [employer]. 03/12/2024: She was transferred out of the ICU on the weekend continue to be kirk kam and managed for severe hematuria with severe anemia, her hemoglobin is up to 8.1 does not require any further blood transfusion, stage IIIb chronic kidney disease with creatinine subtle around 1.87 no blood drawn done this morning yet awaiting for the result. Her hemorrhagic cystitis has been treated with Rocephin culture shows Klebsiella pneumonia susceptible to many antibiotics. Catheter can be probably removed in the next 24 hours and prepare for patient might benefit from going to SNF specially after being sick not able to move for several days. Urology came back with change in plan especially with 3 units of blood transfusion because of the severity of the hematuria and with persistent of hematuria for the last several days agreed to do cystoscopy and fulguration and probably remove clot from her bladder which will help to clear the hematuria a lot faster. 03/13/2024: She is doing much better, Streeter catheter is showing very clear urine today, still regaining bowel bladder with saline via 3 port catheter. Her hemoglobin is down to 8.4 is not requiring transfusion, creatinine has remained at 1.85 which is close to her regular baseline. She does remain on Rocephin 2 g a day which is her original culture with Klebsiella is susceptible to it. Hopefully with improvement and then able to finalize her antibiotic to oral antibiotics and no more bleed we are looking into probably discharge around or Tuesday to SNF. Or sooner as patient is able to participate with physical therapy she will be able to push elevated more with PT. 03/14/2024: Still having bladder irrigation with saline has not been having any more bleeding. Was evaluated by urology not happy with the result so far, Streeter catheter will be removed hopefully later today if she has remained without any hematuria we can initiate anticoagulation as addressed tomorrow. Infectious disease are agreeable to continue short course of antibiotic orally upon her discharge from the hospital culture was for Klebsiella pneumonia which is susceptible to everything except ampicillin and nitrofurantoin so short course of Ceftin for 5 days would be acceptable. Patient mobility is still significantly decreased currently required to do little bit more physical therapy. No more acute bleed requiring transfusion her hemoglobin remained around 8.4. Kidney function plateaued and stable at stage IIIb chronic kidney disease with creatinine at 1.85. Apparently patient is in contact with a social science research assistant did talk originally about having wound care she absolutely refused to go to any assisted program or help [employer] [facility] program she believes she might go stay with her daughter and area around [place] for a period of time till she is ready to come home. 03/15/2024: No more hematuria, Streeter catheter is out and patient is able to void on her own, were given the okay by urology to initiate anticoagulation as early as today or tomorrow morning. Patient has slight confusion despite all the trial to find family member or somebody to talk to about discharge planning not successful she will keep talk about her daughter in [place] that she might move in with her for the next few days and she will have more help at the time. But could not contact her daughter in [place] and that she is going to talk to her tonight. Apparently social science research assistant were able to get hold of the son I believe whenever his mom is ready to be discharged to give them a call that will make an arrangement to come pick her up from the hospital. In the meanwhile patient is having slight confusion still believe she can benefit from SNF rehab or being in place for previous time but apparently family are absolutely against it. For paroxysmal A-fib has been stable pulse rates under control currently and remain on anticoagulation which we will continue Eliquis 2.5 mg twice a day. REVIEW OF SYSTEMS: CONSTITUTIONAL: Well-developed in no respiratory distress. EYES: No icterus sclerae, no conjunctivitis. EARS, NOSE, MOUTH, THROAT, and FACE: No sore throat, lymphadenopathy, carotid bruits or deformity. RESPIRATORY: Mild shortness of breath and dyspnea with no cough or wheezes. CARDIOVASCULAR: Positive palpitation and A-fib with no angina positive PND and orthopnea. GASTROINTESTINAL: No Abd pain, Nausea or vomiting, no Diarrhea or constipation, No GI Bleed, no distention or masses. GENITOURINARY: Negative for Hematuria or UTI, no kidney stones. INTEGUMENT/BREAST: Negative for any muscular injury with mild osteoarthritis.. HEMATOLOGIC/LYMPHATIC: Negative for bleed or purpura. MUSCULOSKELTAL: Negative for Myalgia or arthralgia. NEURLOGICAL: No LOC, Sz or syncope, blurred vision dizziness or abnormality.. BEHAVIORAL/PSYCH: Negative. ENDOCRINE: Negative. PHYSICAL EXAMINATION: General Appearance: Alert, cooperative, mild distress. Neck HEENT: Supple, no lymphadenopathy, no thyroid enlargement, no carotid bruits. Lungs: Decreased expansion bilaterally with fine rhonchi positive mild rhonchi but no wheezes. Chest Wall: Decreased expansion with deep inspiration no tenderness and no deformity was found on exam, no costochondral pain or discomfort. Heart: Irregular rate and rhythm, S1, S2 positive severe tachycardia positive ejection murmur. Back: Symmetric, no curvature, ROM normal, no CVA tenderness. Abdomen: Soft, non-tender, bowel sounds active all four quadrants, no masses, no organomegaly. Extremities: Trace edema without cyanotic. Pulses: 2+ and symmetric. Skin: Skin color, texture, tugor normal, no rashes or lesions. Neurologic: Alert oriented with slight confusion. Cranial nerves II through XII intact, no motor deficit, no abnormal balance or gait. ASSESSMENT AND PLAN: _Sepsis: Hemodynamically stable continue oral antibiotics after discharge to cover Klebsiella pneumonia patient remains on Rocephin currently. _Severe hematuria: Post cystoscopy and cleaning thrombus and clot her Streeter catheter came out she is having an outer catheter at this point with range of blood only does not require any irrigation for the bladder. _Severe hemorrhagic cystitis: Remain treated with for Klebsiella with Rocephin w e will switch patient to oral Ceftin. _A-fib with RVR pulse rates not well-controlled remain on metoprolol and Cardizem currently. Pulse rate running in the 90s. She is back to oral metop rolol only. Pulse rate is under control. _Acute kidney injury on chronic kidney disease: Still stage IIIb chronic kidney disease does not require any dialysis and almost close to her baseline kidney function [place], continue supportive care, avoid nephrotoxic and watch for any obstruction specially with her bleeding. _Acute blood loss anemia: Post 3 unit of blood transfusion hemoglobin stable a mike 8 no need for any more transfusion. _Acute systolic congestive heart failure with known coronary artery disease patient is still quite symptomatic will benefit from continued diuretic speciall y if we can slow down on too much IV fluid. _Possible non-ST ND with elevated troponin's, slightly abnormal EKG known history of myocardial infarction, patient be seen cardiology no intervention is needed at this point. _Atherosclerotic heart disease: Post PCI and stent placement from October has been seeing cardiology currently not being able to reinitiate anticoagulation with Plavix and Eliquis for now. _Type 2 diabetes: Continue Accu-Chek and sliding scale coverage she is not on any insulin still on Farxiga 10 mg a day Eventually can benefit from adding back her oral GLP-1 product. _Anticoagulation management: Patient will be back on oral_anticoagulation as e natanael as tomorrow if no further bleed and her catheter resolved with no hematuria. _Hyperlipidemia: Continue atorvastatin 20 mg a day. _Hypothyroidism: Continue levothyroxine 25 mcg daily. _GI prophylaxis: Will be on pantoprazole 40 mg daily. CODE STATUS: Full code. Discussion: She still quite bit confused discharge planning apparently plan with the family for going home with help with visiting nurse she might be transferring to her daughter in [place] that she is feeling better before she comes home with limited help. Objective - Vital Signs Vital signs: Vital Signs Temp 97.8 F 03/15/24 03:50 Pulse 80 03/15/24 03:50 Resp 17 03/15/24 03:50 BP 134/64 03/15/24 03:50 Pulse Ox 98 03/15/24 03:50 FiO2 Intake & Output 03/14/24 03/14/24 03/15/24 06:59 18:59 06:59 Intake Total 1186 0 Output Total 650 850 800 Balance -650 336 -800 Weight 69 kg Intake: Oral 1186 0 Output: Urine 650 850 800 Other: Voiding Method Indwelling Catheter External Catheter External Catheter - Labs CBC & Chem 7: 03/15/24 08:07 03/15/24 08:07 Labs: Abnormal Lab Results - Last 24 Hours (Table) 03/14/24 03/14/24 03/14/24 Range/Units 11:26 11:52 16:38 POC Glucose (mg/dL) 184 H 175 H 156 H (70-110) mg/dL 03/14/24 03/15/24 Range/Units 20:23 06:00 POC Glucose (mg/dL) 212 H 141 H (70-110) mg/dL
[2024-03-16 05:59] LABS: Glucose,Whole Blood 137 mg/dL (70-110)
--- NOTE | 2024-03-16 08:26 | P.PN ---
Subjective Progress Note Date: 03/16/24 Urine is blood-tinged, she is currently on anticoagulation. Does have an external catheter, she is voiding without issues Objective - Vital Signs Vital signs: Vital Signs Temp 98.1 F 03/16/24 04:00 Pulse 78 03/16/24 04:00 Resp 16 03/16/24 04:00 BP 115/73 03/16/24 04:00 Pulse Ox 97 03/16/24 04:00 FiO2 Intake & Output 03/15/24 03/16/24 03/16/24 18:59 06:59 18:59 Intake Total 1518 Output Total 1050 Balance 1518 -1050 Weight 69 kg Intake: IV 0 0.9 KVO 0 cefTRIAXone 2 gm In 0 Sodium Chloride 0.9% 50 ml @ 100 mls/hr IVPB Q24HR [facility] Rx#:[id number] Intake, IV Titration 0 Amount Sodium Ferric Gluconat- 0 Sucrose 125 mg In Sodium Chloride 0.9% 100 ml @ 100 mls/hr IVPB DAILY [facility] Rx#:[id number] Oral 1518 Output: Urine 1050 Other: Voiding Method External Catheter External Catheter # Voids 2 1 - Constitutional General appearance: Present: no acute distress - Labs CBC & Chem 7: 03/15/24 08:07 03/15/24 08:07 Labs: Abnormal Lab Results - Last 24 Hours (Table) 03/15/24 03/15/24 03/15/24 Range/Units 08:07 08:07 11:40 RBC 3.21 L (3.80-5.40) m/uL Hgb 8.8 L (11.4-16.0) gm/dL Hct 29.7 L (34.0-46.0) % MCHC 29.6 L (31.0-37.0) g/dL RDW 20.6 H (11.5-15.5) % Chloride 109 H (98-107) mmol/L BUN 36 H (7-17) mg/dL Creatinine 1.82 H (0.52-1.04) mg/dL Glucose 157 H (74-99) mg/dL POC Glucose (mg/dL) 153 H (70-110) mg/dL Calcium 7.6 L (8.4-10.2) mg/dL Alkaline Phosphatase 133 H (38-126) U/L Total Protein 5.7 L (6.3-8.2) g/dL Albumin 2.4 L (3.5-5.0) g/dL 03/15/24 03/15/24 03/16/24 Range/Units 16:33 20:24 05:58 RBC (3.80-5.40) m/uL Hgb (11.4-16.0) gm/dL Hct (34.0-46.0) % MCHC (31.0-37.0) g/dL RDW (11.5-15.5) % Chloride (98-107) mmol/L BUN (7-17) mg/dL Creatinine (0.52-1.04) mg/dL Glucose (74-99) mg/dL POC Glucose (mg/dL) 162 H 178 H 137 H (70-110) mg/dL Calcium (8.4-10.2) mg/dL Alkaline Phosphatase (38-126) U/L Total Protein (6.3-8.2) g/dL Albumin (3.5-5.0) g/dL Assessment and Plan Assessment: 83-year-old female with history of gross hematuria, is having persistent hematuria, has required 3 units of blood transfusion since admission. Underwent cystoscopy clot EVAC on March 12, findings consistent with radiation cystitis, no malignant lesions identified., patient has an external catheter with minimal blood-tinged urine -She is okay for discharge from urology standpoint, I do anticipate she is can have intermittent gross hematuria from her radiation cystitis as long as she is on anticoagulation
[2024-03-16] MEDS: CLOPIDOGREL 75 MG TAB PO SCH (08:36)
[2024-03-16] MEDS: CEFDINIR 300 MG CAP PO SCH (08:36)
[2024-03-16 10:42] VITALS: TEMP 97.6
[2024-03-16 11:10] LABS: Glucose,Whole Blood 251 mg/dL (70-110)
--- NOTE | 2024-03-16 11:52 | P.PN ---
Subjective Patient is seen in follow-up for chronic kidney disease. Renal function stable as of yesterday. Oral intake fair. Denies chest pain or shortness of breath. Vital signs are stable. General: No acute distress. HEENT: Head exam is unremarkable. LUNGS: No audible rhonchi or wheezes. HEART: Rate and Rhythm are regular. ABDOMEN: Nontender. EXTREMITITES: No edema. Objective - Vital Signs Vital signs: Vital Signs Temp 97.6 F 03/16/24 08:35 Pulse 119 H 03/16/24 08:35 Resp 18 03/16/24 08:35 BP 132/71 03/16/24 08:35 Pulse Ox 98 03/16/24 08:35 FiO2 Intake & Output 03/15/24 03/16/24 03/16/24 18:59 06:59 18:59 Intake Total 1518 236 Output Total 1050 850 Balance 1518 -1050 -614 Weight 69 kg Intake: IV 0 0.9 KVO 0 cefTRIAXone 2 gm In 0 Sodium Chloride 0.9% 50 ml @ 100 mls/hr IVPB Q24HR [facility] Rx#:[id number] Intake, IV Titration 0 Amount Sodium Ferric Gluconat- 0 Sucrose 125 mg In Sodium Chloride 0.9% 100 ml @ 100 mls/hr IVPB DAILY [facility] Rx#:[id number] Oral 1518 236 Output: Urine 1050 850 Other: Voiding Method External Catheter External Catheter External Catheter # Voids 2 1 - Labs CBC & Chem 7: 03/15/24 08:07 03/15/24 08:07 Labs: Abnormal Lab Results - Last 24 Hours (Table) 03/15/24 03/15/24 03/16/24 Range/Units 16:33 20:24 05:58 POC Glucose (mg/dL) 162 H 178 H 137 H (70-110) mg/dL 03/16/24 Range/Units 11:09 POC Glucose (mg/dL) 251 H (70-110) mg/dL Assessment and Plan Plan: Assessment: 1. Acute kidney injury secondary to ATN secondary to hypotension and acute blood loss anemia. No obstruction noted on imaging. Creatinine was 2.72 on a dmission and stable at 1.82 yesterday. 2. Chronic kidney disease stage IIIb with baseline creatinine 1.6-1.8. 3. Klebsiella UTI s/p antibiotics. 4. Acute blood loss anemia with gross hematuria secondary to hemorrhagic cystitis. Urology following. Hemoglobin stable. Iron deficiency noted. 5. Metabolic acidosis secondary to chronic kidney disease. On oral bicarb. Better. Plan: Encouraged oral intake. Avoid nephrotoxins. Continue to monitor renal function and urine output. Preserved ejection fraction noted on echocardiogram. Maintain IV iron. Decrease dose of Lasix to 20 mg once daily. Follow-up outpatient 1 to 2 weeks postdischarge.
[2024-03-16 12:03] VITALS: BP 124/60; PULSE 81; RESP 17
[2024-03-16 12:05] LABS: Anisocytosis Moderate; HCT 33.3 % (34.0-46.0); Hypochromasia Marked; MCH 27.9 pg (25.0-35.0); Macrocytosis Slight; Mean Platelet Volume 7.1; Platelet Count 495 k/uL (150-450); Poikilocytosis Slight; RBC 3.58 m/uL (3.80-5.40); RDW 20.2 % (11.5-15.5)
[2024-03-16 12:17] LABS: ALT 16 U/L (4-34); AST 31 U/L (14-36); African American GFR (CKD) 32 (>60 ml/min/1.73 sqM); Albumin 2.8 g/dL (3.5-5.0); Alkaline Phosphatase 148 U/L (38-126); Anion Gap 7 mmol/L; Blood Urea Nitrogen 37 mg/dL (7-17); Calcium 7.9 mg/dL (8.4-10.2); Carbon Dioxide 24 mmol/L (22-30); Chloride 107 mmol/L (98-107); Glucose 189 mg/dL (74-99); Non-African American GFR(CKD) 28 (>60 ml/min/1.73 sqM); Potassium 4.6 mmol/L (3.5-5.1); Sodium 138 mmol/L (137-145); Total Bilirubin 0.4 mg/dL (0.2-1.3); Total Protein 6.1 g/dL (6.3-8.2)
[2024-03-16 12:47] LABS: NT-Pro-B-Type Natriuretic Pept 29400 pg/mL
--- NOTE | 2024-03-16 13:10 | P.PN ---
Subjective Progress Note Date: 03/16/24 Patient is a 83-year-old white female with past medical history significant for coronary artery disease with recent stent, valvular heart disease, atrial fibrillation anticoagulated on Eliquis, hypertension, diabetes mellitus, uterine cancer. Of note, patient had a recent hospitalization September, for non-ST elevation [place] and received a stent to the LAD. Patient presented to emergency room yesterday afternoon with a chief complaint of generalized weakness and fatigue and she had a fall. She was apparently in the bathroom where she went to get up and became lightheaded and fell. She states that her son was at work at this time, he found her when he came home. She was on the ground for a cou ple hours. States that she did hit her head and right chest. Did not have anything to eat or drink all day. Her son was the one that called 911. She states that over the last several days she has been generally weak. CT of the brain without contrast did not show any acute intracranial abnormality. There is atrophy and chronic microvessel ischemic white matter changes. While being evaluated by the ER room physician, she was noted to be hypotensive. She has been fluid resuscitated with 1 L of normal saline bolus, and currently has normal saline infusing at 130 MLS per hour. She does take midodrine outpatient. After the 1 L normal saline bolus, patient remained hypotensive, and my joann leon physician recommended ICU monitoring. Patient is currently in the emergency department, room 7. She appears fairly comfortable. She is on room air. SpO2 100%. Blood pressure currently 85/61 mmHg. Heart rhythm appears to be atrial fibrillation with a rate of 118 bpm. Norepinephrine has not been started yet. She denies any radiating chest pain, there is some localized reproducible right-sided chest pain where she impacted on fall. Denies any heart palpitations or syncopal events. She has a pure wick suction catheter, there is presumed gross hematuria in the canister. She is not able to tell me how long this has been occurring for. She denies kidney stones. She is on Eliquis outpatient. Patient does admit to some continuous pelvic discomfort/pressure. No flank pain. No burning with urination, no increased urinary frequency. She is chronically incontinent to urine. She has noted blood clots in her underwear. She has remote history of uterine cancer. She does not think this is vaginal bleeding. She received a dose of Rocephin in the emergency room for possible UTI. Urinalysis showing hina blood and WBCs. Culture is pending. She is afebrile. CBC without leukocytosis. Hemoglobin 8.8 g/dL, hematocrit 28.7. Platelets 471. CMP on arrival: Sodium 130, potassium 3.3, chloride 98, serum bicarb 23, BUN 54, creatinine 2.72, glucose 275. Lactic acid originally 3.1 and down to 1.7. LFTs not elevated. EKG done on arrival showed atrial fibrillation with a rate of [address] depressions in the lateral leads. Troponin less than 0.012. NT proBNP 19,900. Chest x-ray shows stable cardiac silhouette, no pulmonary vascular congestion or edema, no acute infiltrates, no pleural effusions or pneumothoraces. She is going to be monitored in the intensive care unit, and transferred once bed available. On 03/06/2024, the patient continues to have hematuria although this has somewhat improved compared to yesterday. Urine output is still bloody and the intensity of the blood is less compared to yesterday. Noted the patient drop in hemoglobin yesterday down to 6.8 and she was given additional unit of packed RBC making a total of 2 units of packed RBC and hemoglobin is currently up to 7.8. She remains on normal saline at the rate of 130 cc an hour. The norepinephrine infusion was discontinued around 5:00 this morning. She is in atrial fibrillat ion. She is slightly tachycardic. Urine culture is showing gram-negative bacillus and the patient is currently on IV Rocephin. The WBC count is at 7.5, hemoglobin 7.8 and a platelet count of 351. Creatinine is improving is currently down to 2.2 again of 43, serum bicarb is at 17 with a sodium level of 135 and a potassium level of 3.4 and this needs to be replaced. The cortisol level is at 19.2. This was a random cortisol level. Echocardiogram was also done on 03/05/2024 revealing a ejection fraction of 65 to 70%, small LV cavity, mildly increased septal wall thickening, mild increase in the posterior wall thickening, no significant valvular abnormalities noted. Mild LVH. Noted the patient was given Kcentra yesterday. The patient is currently off anticoagulation. 03/07/2024, the patient is being seen for a follow-up. Patient is doing well. The patient is not having any active hematuria at this point in time. The hematuria has subsided. She is currently on 4 L of oxygen by nasal cannula. She has been off norepinephrine since 5 AM this morning. IV fluids are currently at KVO. The patient however developed atrial fibrillation with rapid ventricular response 6 PM yesterday. Her lungs are also congested. Based on that, she was given a dose of Lasix in the morning. She is currently on a Cardizem drip running at 10 mg an hour. She remains calm and comfortable. No s ignificant chest pain. The white count of 10.6 with a hemoglobin 7.4 and a platelet count of 345. BUN 33 with a creatinine of 1.98 and the sodium is at 137. Urine culture is positive for Klebsiella pneumonia. 03/08/2024, the patient is not having any hematuria. She was diagnosed having a Klebsiella pneumoniae urine tract infection with secondary hematuria and hematuria has subsided. The patient remains on IV Rocephin. Hemodynamically stable on no pressors. Still on Cardizem drip which is running at 5 mg hour. She is also on Lopressor current dose of 50 mg p.o. twice a day. Anticoagula tion was restarted by the medical group and the patient is currently on Eliquis 2.5 mg p.o. twice a day. She remains on oxygen and she is currently on 2 L nasal cannula. Some limited cough and congestion. Chest x-ray was done and showed improving interstitial pattern which was attribute to pulmonary vascular congestion/venous congestion and a stable tiny left lower lobe effusion. Otherwise, no other new complaints. Tolerating diet. No chest pain. the patient is still having hematuria on today's evaluation on 03/09/2024, the patient is having hematuria. Noted aspirin and Eliquis was restarted back by cardiology. As such, the patient developed hematuria and the medications were essentially discontinued. Hemoglobin dropped down to 6.5 and the patient is going to be receiving 1 unit of packed RBC. She is also having some liquid diarrhea. Will check stool for C. difficile. The patient remains in atrial fibrillation. She remains quite tachycardic and she is currently on metoprolol 50 mg p.o. 3 times daily. Will add Cardizem for better rate control. The patient remains on IV Rocephin. White cell count is 7.2, platelet count 273, creatinine is down to 1.89 with a BUN of 31 and a sodium levels of 133. No other significant events overnight. She is awake and alert and communicating. No signs of any significant respiratory distress. Chest x-ray findings were stable and improving. On today's evaluation of 03/10/2024, I am seeing the patient for a follow-up. Unfortunately, the patient continues to have hematuria. Urology is on the case. No plans for cystoscopy at this point in time and the patient is currently off anticoagulation. Repeat hemoglobin from today is down to 7.9. The white cell count is 7.3. The patient's renal function is stable with a BUN of 30 creatinine 1.8. Serum bicarb is at 20. The patient remains on oxygen on room air. No significant respiratory distress. No other complaints otherwise for now. She remains on IV Rocephin. Urology on the case. 03/11/2024, the patient is being seen for a follow-up. She is having some hematuria although urine output seems to be less bloody compared to yesterday. Hemoglobin is at 8.1 which is essentially stable compared to yesterday. Creatinine is also stable at 1.8. The patient is currently on room air oxygen. Urology on the case. The patient remains in atrial fibrillation. Rate is c ontrolled and the patient is off Eliquis. Patient was reevaluated today on 03/12/2024, patient is complaining of some shortness of breath on exertion, no chest pain, no palpitations, continues to have hematuria, scheduled to have cystoscopy by urology today and clot evacuation. Patient is on room air, O2 saturation is 98%, does not seem to be in any form of distress. Patient had no labs today except for blood sugar of 209 and significantly elevated BNP level, her WBC count yesterday was 6.8 with a hemoglobin of 8.1, and relatively normal basic metabolic profile, BUN of 28 and creatinine of 1.87. Chest x-ray yesterday showed very minimal tiny left-sided pleural effusion otherwise unremarkable Patient was evaluated today on 03/13/2024, feeling better, no further episodes of hematuria, patient was seen by urology yesterday, underwent cystoscopy and clot evaluation. No evidence of malignancy involving the urinary bladder, patient was noted to have diffuse oozing and felt to be more of a picture of cystitis/infection. WBC count is 8.7 hemoglobin 8.4 basic metabolic profile is normal BUN is 34 creatinine 1.85, her renal functioning is being addressed by nephrology, patient developed acute kidney injury secondary to ATN secondary to hypotension and acute blood loss. No evidence of obstructive uropathy Patient was seen today on 03/14/2024, patient is doing well, relatively asympt omatic. No symptoms of UTI, no shortness of breath no cough no wheezing no chest pain. Her urine has completely cleared, and there is no evidence of gross hematuria. Remains on antibiotics for UTI. Her basic metabolic profile is normal creatinine 1.85 WBC count is 8.7 hemoglobin is 8.4 Seen today on 03/15/2024, patient continues to do extremely well, relatively asymptomatic. Cough no wheezing no shortness of breath no chest pain. No symptoms of UTI. The patient is seen today March 16, 2024 in follow-up on the selective care unit. She is currently awake and alert in no acute distress. Resting comfortably in bed. Maintaining O2 saturations in the 90s on room air. She is status post 3 units of packed red blood cells this admission. Current hemoglobin 10.0. Platelets 495. White count 10.0. Sodium 138. Potassium 4.6. Bicarb 24. BUN 37. Creatinine 1.71. Glucose 189. She is continued on oral diuretics. Antibiotics in the form of Omnicef. Anticoagulated with Eliquis. Remains on sodium bicarbonate tablets. Objective - Vital Signs Vital signs: Vital Signs Temp 97.6 F 03/16/24 08:35 Pulse 81 03/16/24 12:00 Resp 17 03/16/24 12:00 BP 124/60 03/16/24 12:00 Pulse Ox 98 03/16/24 12:00 FiO2 Intake & Output 03/15/24 03/16/24 03/16/24 18:59 06:59 18:59 Intake Total 1518 236 Output Total 1057 302 Balance 6399 -8205 -948 Weight 69 kg Intake: IV 0 0.9 KVO 0 cefTRIAXone 2 gm In 0 Sodium Chloride 0.9% 50 ml @ 100 mls/hr IVPB Q24HR [facility] Rx#:[id number] Intake, IV Titration 0 Amount Sodium Ferric Gluconat- 0 Sucrose 125 mg In Sodium Chloride 0.9% 100 ml @ 100 mls/hr IVPB DAILY [facility] Rx#:[id number] Oral 1518 236 Output: Urine 1050 850 Other: Voiding Method External Catheter External Catheter External Catheter # Voids 2 1 - Exam GENERAL EXAM: Alert, 83-year-old female, on room air, comfortable in no apparent distress. HEAD: Normocephalic. EYES: Normal reaction of pupils, equal size. NOSE: Clear with pink turbinates. THROAT: No erythema or exudates. NECK: No masses, no JVD. CHEST: No chest wall deformity. LUNGS: Equal air entry with no crackles, wheeze, rhonchi or dullness. CVS: S1 and S2 normal with no audible murmur, regular rhythm. ABDOMEN: No hepatosplenomegaly, normal bowel sounds, no guarding or rigidity. SPINE: No scoliosis or deformity SKIN: No rashes CENTRAL NERVOUS SYSTEM: No focal deficits, tone is normal in all 4 extremities. EXTREMITIES: There is no peripheral edema. No clubbing, no cyanosis. Peripheral pulses are intact. - Labs CBC & Chem 7: 03/16/24 11:30 03/16/24 11:30 Labs: Abnormal Lab Results - Last 24 Hours (Table) 03/15/24 03/15/24 03/16/24 Range/Units 16:33 20: 05:58 RBC (3.80-5.40) m/uL Hgb (11.4-16.0) gm/dL Hct (34.0-46.0) % MCHC (31.0-37.0) g/dL RDW (11.5-15.5) % Plt Count (150-450) k/uL BUN (7-17) mg/dL Creatinine (0.52-1.04) mg/dL Glucose (74-99) mg/dL POC Glucose (mg/dL) 162 H 178 H 137 H (70-110) mg/dL Calcium (8.4-10.2) mg/dL Alkaline Phosphatase (38-126) U/L Total Protein (6.3-8.2) g/dL Albumin (3.5-5.0) g/dL 03/16/24 03/16/24 03/16/24 Range/Units 11:09 11:30 11:30 RBC 3.58 L (3.80-5.40) m/uL Hgb 10.0 L (11.4-16.0) gm/dL Hct 33.3 L (34.0-46.0) % MCHC 30.0 L (31.0-37.0) g/dL RDW 20.2 H (11.5-15.5) % Plt Count 495 H (150-450) k/uL BUN 37 H (7-17) mg/dL Creatinine 1.71 H (0.52-1.04) mg/dL Glucose 189 H (74-99) mg/dL POC Glucose (mg/dL) 251 H (70-110) mg/dL Calcium 7.9 L (8.4-10.2) mg/dL Alkaline Phosphatase 148 H (38-126) U/L Total Protein 6.1 L (6.3-8.2) g/dL Albumin 2.8 L (3.5-5.0) g/dL Assessment and Plan Assessment: Acute urinary tract infection with hematuria and possible cystitis secondary to Klebsiella pneumonia infection. On Omnicef Acute blood loss anemia secondary to hematuria, required 3 units of packed red blood cells this admission. Current hemoglobin 10.0 Severe dehydration and hypovolemia recovered Acute on chronic kidney disease Chronic A-fib, on beta-blockers and on Eliquis Chronic microcytic, hypochromic anemia, received iron supplements Coronary artery disease, with recent PCI/stent to the LAD performed 10/28/2023 History of mild to moderate mitral regurgitation, preserved LV function History of diabetes mellitus, type II History of hypothyroidism Chronic kidney disease stage III History of hyperlipidemia Remote history of uterine CA Plan: The patient was seen and evaluated Labs and medications reviewed Stable and on room air The patient has declined subacute rehab Plan is for home with family I have personally seen and examined the patient, performed the documentation and the assessment and plan as written. Number of minutes spent on the visit: 10.
--- NOTE | 2024-03-16 14:37 | P.PN ---
Subjective Progress Note Date: 03/16/24 HISTORY OF PRESENTING ILLNESS 83-year-old with past medical history of paroxysmal atrial fibrillation, hypertension, dyslipidemia, CKD, chronic diastolic heart failure, last NSTEMI in October 2023 requiring heart cath showing 80% left main stenosis and mid LAD 60 to 70% stenosis with [employer] of [employer]. She underwent PCI of left main into LAD. Patient has also had multiple hospital visits with A-fib RVR's past. There is also concern of noncompliance to medications. It is unclear if patient has been taking dual antiplatelet therapy since her PCI. This time patient presented to the hospital because of generalized weakness and fatigue and a fall. Apparently patient was found in the bathroom. Patient reported that she became severely lightheaded and could not get up from the sitting position in the bathroom commode. She was down for few hours before her son found her and called the EMS. On admission she was hypotensive and dehydrated along with atrial fibrillation with RVR. Her blood pressure was 80 over 60 mmHg. ECG showed atrial fibrillation with heart rate in the beats were minute, incomplete left bundle branch block with diffuse ST depressions Her labs showed NT proBNP of 18,000, troponin of 0.067, repeat 0.72. Creatinine 2.49, baseline creatinine 1.6 Chest x-ray did not show significant pulm congestion. Pelvic CT showed hypodensity seen in the urinary bladder may reflect blood byproducts. Echo July 2023: EF 55%, severe LVH, moderate MR, Echo February 2024, EF 65%, hyperdynamic LV, moderate LVH, no significant wall motion abnormality. March 06, 2024 Patient continues to have hematuria. It appears slightly better as compared to yesterday. Appears to have 20 to 30 cc/h urine output with slightly improved creatinine to 2.2 today. Hemoglobin is 7.8, platelet 351. She is s/p 2 units of blood transfusion 03/05/2024. Her echocardiogram showed an EF of 65 to 70%, small LV cavity, no significant valvular disease. On exam she reports having diarrhea. Reports feeling weak. Appears slightly dehydrated getting IV fluids. 03/07/2024 BP 92/62, heart rate 112 bpm, atrial fibrillation with RVR Hemoglobin 7.4. Yesterday it was 7.8. On admission 6.8. She is s/p unit blood transfusion since admission. Renal function has continued to improve, creatinine is 1.9 today. On admission 2.9. She has good urine output. Her hematuria has resolved. 03/08/2024 Patient continues to have significant diarrhea. Hemoglobin is stable. No further hematuria. Appropriate urine output with stable kidney function creatinine at 2 today. Yesterday 119 Patient's diarrhea is better after 1 dose of Imodium. Patient's hemoglobin is dropped to 6.5. Patient started having hematuria again. Will stop her Eliquis and Plavix. Will resume her on aspirin because of recent PCI. March 10, 2024 Blood pressure 107/59, heart rate 80 bpm, rafib rate controlled Patient's diarrhea has got better. She still has bright red urine concerning of hemorrhagic cystitis. She had 1 unit of blood transfusion done yesterday. In total she has got 3 units of blood transfusion since admission. March 11, 2024, BP 110/60, rate controlled afib, still having dark red urine, renal function is holding , no chest pain or shortness of breath. 03/12 Patient complains of dyspnea on exertion. No chest pain. She also complains of dizziness. Patient noted to have gross hematuria in Streeter catheter bag. Patient is scheduled for procedure today with Dr. Lawrence. Blood pressure 113/64, heart rate 117, pulse ox 100% on room air. Eliquis and Plavix are on hold. 03/13 Patient continues to be in A-fib heart rate jumps up to the 120s just before her medications are due and then normalizes after. She states she had a better night. She has shortness of breath with activity but stable at rest. She complains of jumpy legs. Yesterday, she underwent procedure with urology and plan is for holding anticoagulation. She only has a very slight pink color to urine in Streeter bag. Blood pressure 120/79, heart rate 103, pulse ox 94% on room air. Repeat blood work reveals hemoglobin 8.4. BUN 34 creatinine 1.85. Potassium 4.3. 03/14 Patient states that she did not sleep well due to her legs feeling heavy. Urine has been clear and Streeter catheter may be removed today. Dr. Chavez has recommended that anticoagulation may be resumed tomorrow. Patient is hoping for discharge home. Blood pressure 113/55, heart rate 80, pulse ox 98% on room air. 03/15 Patient is being prepared for discharge home today. Plan is for her to go home with her daughter. She denies any palpitations no chest pain. Blood pressure 120/86, heart rate 96, pulse ox 98% on room air. Repeat blood work reveals hemoglobin is 8.8, BUN 36 creatinine 1.82. Patient has been cleared to start back on anticoagulation which will be started tonight. 03/16 Patient denies having any chest pain or shortness of breath. Blood pressure 124/60, heart rate 81, pulse ox 98% on room air. Repeat blood work reveals hemoglobin 10, potassium 4.6, BUN 37 creatinine 1.71. proBNP 29,400. Patient states that she is scheduled for discharge home and her daughter will be picking her up later today. Patient was resumed back on Eliquis yesterday. PHYSICAL EXAMINATION Head: Normocephalic. Eyes: Sclerae nonicteric. Neck: Brisk carotid upstroke, no jugular venous distention. Lungs: Bilateral rhonchi. Heart: irregular pulse, S1-S2, 2/6 systolic murmur . Abdomen: Soft nontender, positive bowel sounds. Extremities: minimal edema in leg , non pitting Neuro: no focal deficits. Detailed neuro exam was not performed. ASSESSMENT Elevated troponin, likely type II NSTEMI in setting of BOLA, sepsis and anemia Acute on chronic systolic heart failure, CAD s/p PCI in October 2023. S/p PCI to left main into LAD 4 x 15 mm PRANAY Paroxysmal Atrial fibrillation. Currently Afib, Acute blood loss anemia due to hematuria s/p 2 U PRBC Severe sepsis BOLA on CKD, BOLA resolved. Hyperlipidemia Hypothyroidism Medication non compliance PLAN Continue patient on aspirin 81 mg. Continue patient on Eliquis 2.5 mg twice daily Continue metoprolol 100 mg twice daily. Continue patient on Farxiga 10 mg daily Patient is cleared for discharge from cardiology and may follow-up in the office in 1 to 2 weeks. Nurse practitioner note has been reviewed, I agree with documented findings and plan of care. Patient was seen and examined. Objective - Vital Signs Vital signs: Vital Signs Temp 97.6 F 03/16/24 08:35 Pulse 119 H 03/16/24 08:35 Resp 18 03/16/24 08:35 BP 132/71 03/16/24 08:35 Pulse Ox 98 03/16/24 08:35 FiO2 Intake & Output 06/20/24 06/21/24 06/21/24 18:59 06:59 18:59 Intake Total 1518 236 Output Total 1050 Balance 1518 -1050 236 Weight 69 kg Intake: IV 0 0.9 KVO 0 cefTRIAXone 2 gm In 0 Sodium Chloride 0.9% 50 ml @ 100 mls/hr IVPB Q24HR [facility] Rx#:[id number] Intake, IV Titration 0 Amount Sodium Ferric Gluconat- 0 Sucrose 125 mg In Sodium Chloride 0.9% 100 ml @ 100 mls/hr IVPB DAILY [facility] Rx#:[id number] Oral 1518 236 Output: Urine 1050 Other: Voiding Method External Catheter External Catheter External Catheter # Voids 2 1 - Labs CBC & Chem 7: 03/16/24 11:30 03/16/24 11:30 Labs: Abnormal Lab Results - Last 24 Hours (Table) 03/15/24 03/15/24 03/15/24 Range/Units 11:40 16:33 20:24 POC Glucose (mg/dL) 153 H 162 H 178 H (70-110) mg/dL 03/16/24 03/16/24 Range/Units 05:58 11:09 POC Glucose (mg/dL) 137 H 251 H (70-110) mg/dL
--- NOTE | 2024-03-16 17:42 | P.PN ---
Subjective Progress Note Date: 03/15/24 Principal diagnosis: Reason for follow-up is complicated UTI Patient is a 83-year-old male for diabetes mellitus hypertension atrial fibrillation brought to the hospital for evaluation of generalized weakness fatigue lightheadedness low blood pressure patient noticed to have significant hematuria and concern for complicated UTI. On today's evaluation that is 03/15/2024, Patient is afebrile this morning and denies any chills, patient mention breathing comfortably and is currently on room air, patient denies any chest pain, patient did have occasional cough patient denies any abdominal pain no diarrhea no nausea no vomiting, no new symptoms. Patient white count is 7.8, creatinine is 1.82 Objective - Vital Signs Vital signs: Vital Signs Temp 97.8 F 03/15/24 03:50 Pulse 96 03/15/24 12:00 Resp 16 03/15/24 08:00 BP 120/86 03/15/24 12:00 Pulse Ox 98 03/15/24 12:00 FiO2 Intake & Output 03/14/24 03/15/24 03/15/24 18:59 06:59 18:59 Intake Total 1186 0 918 Output Total 850 800 Balance 336 -800 918 Intake: IV 0 0.9 KVO 0 cefTRIAXone 2 gm In 0 Sodium Chloride 0.9% 50 ml @ 100 mls/hr IVPB Q24HR [facility] Rx#:[id number] Intake, IV Titration 0 Amount Sodium Ferric Gluconat- 0 Sucrose 125 mg In Sodium Chloride 0.9% 100 ml @ 100 mls/hr IVPB DAILY [facility] Rx#:[id number] Oral 1186 0 918 Output: Urine 850 800 Other: Voiding Method External Catheter External Catheter External Catheter - Exam GENERAL DESCRIPTION: An elderly female lying in bed in no distress RESPIRATORY SYSTEM: Unlabored breathing , decreased breath sounds at bases HEART: S1 S2 regular rate and rhythm , ABDOMEN: Soft , no tenderness - Labs CBC & Chem 7: 03/16/24 11:30 03/16/24 11:30 Labs: Abnormal Lab Results - Last 24 Hours (Table) 03/14/24 03/14/24 03/15/24 Range/Units 16:38 20:23 06:00 RBC (3.80-5.40) m/uL Hgb (11.4-16.0) gm/dL Hct (34.0-46.0) % MCHC (31.0-37.0) g/dL RDW (11.5-15.5) % Chloride (98-107) mmol/L BUN (7-17) mg/dL Creatinine (0.52-1.04) mg/dL Glucose (74-99) mg/dL POC Glucose (mg/dL) 156 H 212 H 141 H (70-110) mg/dL Calcium (8.4-10.2) mg/dL Alkaline Phosphatase (38-126) U/L Total Protein (6.3-8.2) g/dL Albumin (3.5-5.0) g/dL 03/15/24 03/15/24 03/15/24 Range/Units 08:07 08:07 11:40 RBC 3.21 L (3.80-5.40) m/uL Hgb 8.8 L (11.4-16.0) gm/dL Hct 29.7 L (34.0-46.0) % MCHC 29.6 L (31.0-37.0) g/dL RDW 20.6 H (11.5-15.5) % Chloride 109 H (98-107) mmol/L BUN 36 H (7-17) mg/dL Creatinine 1.82 H (0.52-1.04) mg/dL Glucose 157 H (74-99) mg/dL POC Glucose (mg/dL) 153 H (70-110) mg/dL Calcium 7.6 L (8.4-10.2) mg/dL Alkaline Phosphatase 133 H (38-126) U/L Total Protein 5.7 L (6.3-8.2) g/dL Albumin 2.4 L (3.5-5.0) g/dL Assessment and Plan (1) UTI (urinary tract infection) Status: Acute Code(s): N39.0 - URINARY TRACT INFECTION, SITE NOT SPECIFIED SNOMED Code(s): 70842183 Plan: 1patient presented to hospital with weakness not feeling well patient was hypotensive noticed to have hematuria with abnormal renal ultrasound concerning for mass versus clot in the urinary bladder did have a positive UA concerning for symptomatic urinary tract infection. 2patient urine has been finalized with Klebsiella that is sensitive to ceftriaxone 4- patient is afebrile and the patient white count has normalized and did have resolution of her hematuria 5-patient antibiotic has been switched over to Omnicef to continue antibiotic and monitor clinical course closely Dictation was produced using [employer] dictation software. please excuse any grammatical, word or spelling errors. Time with Patient: Less than 30
--- NOTE | 2024-03-16 17:43 | P.PN ---
Subjective Progress Note Date: 03/16/24 Principal diagnosis: Reason for follow-up is complicated UTI Patient is a 83-year-old male for diabetes mellitus hypertension atrial fibrillation brought to the hospital for evaluation of generalized weakness fatigue lightheadedness low blood pressure patient noticed to have significant hematuria and concern for complicated UTI. On today's evaluation that is 03/16/2024,the patient denies any fever or any chills, patient is breathing comfortably on room air, the patient denies chest pain shortness of breath continue to have some dry cough, patient denies abdominal pain, no nausea vomiting or diarrhea. Patient white count is 10.0, creatinine is 1.71 Objective - Vital Signs Vital signs: Vital Signs Temp 97.6 F 03/16/24 08:35 Pulse 81 03/16/24 12:00 Resp 17 03/16/24 12:00 BP 124/60 03/16/24 12:00 Pulse Ox 98 03/16/24 12:00 FiO2 Intake & Output 03/15/24 03/16/24 03/16/24 18:59 06:59 18:59 Intake Total 1518 346 Output Total 1050 850 Balance 1518 -1050 -504 Weight 69 kg Intake: IV 0 0.9 KVO 0 cefTRIAXone 2 gm In 0 Sodium Chloride 0.9% 50 ml @ 100 mls/hr IVPB Q24HR [facility] Rx#:[id number] Intake, IV Titration 0 Amount Sodium Ferric Gluconat- 0 Sucrose 125 mg In Sodium Chloride 0.9% 100 ml @ 100 mls/hr IVPB DAILY [facility] Rx#:[id number] Oral 1518 346 Output: Urine 1050 850 Other: Voiding Method External Catheter External Catheter External Catheter # Voids 2 1 - Exam GENERAL DESCRIPTION: An elderly female lying in bed in no distress RESPIRATORY SYSTEM: Unlabored breathing , decreased breath sounds at bases HEART: S1 S2 regular rate and rhythm , ABDOMEN: Soft , no tenderness - Labs CBC & Chem 7: 03/16/24 11:30 03/16/24 11:30 Labs: Abnormal Lab Results - Last 24 Hours (Table) 03/15/24 03/15/24 03/16/24 Range/Units 16:33 20:24 05:58 RBC (3.80-5.40) m/uL Hgb (11.4-16.0) gm/dL Hct (34.0-46.0) % MCHC (31.0-37.0) g/dL RDW (11.5-15.5) % Plt Count (150-450) k/uL BUN (7-17) mg/dL Creatinine (0.52-1.04) mg/dL Glucose (74-99) mg/dL POC Glucose (mg/dL) 162 H 178 H 137 H (70-110) mg/dL Calcium (8.4-10.2) mg/dL Alkaline Phosphatase (38-126) U/L Total Protein (6.3-8.2) g/dL Albumin (3.5-5.0) g/dL 03/16/24 03/16/24 03/16/24 Range/Units 11:09 11:30 11:30 RBC 3.58 L (3.80-5.40) m/uL Hgb 10.0 L (11.4-16.0) gm/dL Hct 33.3 L (34.0-46.0) % MCHC 30.0 L (31.0-37.0) g/dL RDW 20.2 H (11.5-15.5) % Plt Count 495 H (150-450) k/uL BUN 37 H (7-17) mg/dL Creatinine 1.71 H (0.52-1.04) mg/dL Glucose 189 H (74-99) mg/dL POC Glucose (mg/dL) 251 H (70-110) mg/dL Calcium 7.9 L (8.4-10.2) mg/dL Alkaline Phosphatase 148 H (38-126) U/L Total Protein 6.1 L (6.3-8.2) g/dL Albumin 2.8 L (3.5-5.0) g/dL Assessment and Plan (1) UTI (urinary tract infection) Status: Acute Code(s): N39.0 - URINARY TRACT INFECTION, SITE NOT SPECIFIED SNOMED Code(s): 86891179 Plan: 1patient presented to hospital with weakness not feeling well patient was hypotensive noticed to have hematuria with abnormal renal ultrasound concerning for mass versus clot in the urinary bladder did have a positive UA concerning for symptomatic urinary tract infection. 2patient urine has been finalized with Klebsiella that is sensitive to ceftriaxone 4- patient is afebrile and the patient white count has normalized and did have resolution of her hematuria 5-patient will finish therapy with a 7-day course of Cefdinar on discharge and close outpatient follow-up Dictation was produced using [employer] software. please excuse any grammatical, word or spelling errors. Time with Patient: Less than 30
--- NOTE | 2024-03-16 17:43 | P.PN ---
Subjective Progress Note Date: 03/09/24 Principal diagnosis: Reason for follow-up is complicated UTI Patient is a 83-year-old male for diabetes mellitus hypertension atrial fibrillation brought to the hospital for evaluation of generalized weakness fatigue lightheadedness low blood pressure patient noticed to have significant hematuria and concern for complicated UTI. On today's evaluation that is 03/09/2024, Patient is afebrile this morning he denies any chills, patient mention breathing comfortably and is currently on 2 L nasal cannula oxygen patient denies any chest pain occasional cough patient denies any abdominal pain no diarrhea no nausea no vomiting Patient white count slightly up to 11.7, creatinine is 1.89 Objective - Vital Signs Vital signs: Vital Signs Temp 97.4 F L 03/09/24 20:21 Pulse 112 H 03/09/24 20:21 Resp 18 03/09/24 20:21 BP 108/61 03/09/24 20:21 Pulse Ox 97 03/09/24 20:21 FiO2 Intake & Output 03/09/24 03/09/24 03/10/24 06:59 18:59 06:59 Intake Total 480 1116 Output Total 685 870 Balance -205 246 Weight 68.7 kg 68.7 kg Intake: IV 480 210 0.9 KVO 40 Sodium Chloride 0.9% 1, 480 120 000 ml @ 40 mls/hr IV . Q24H [facility] Rx#:[id number] cefTRIAXone 2 gm In 50 Sodium Chloride 0.9% 50 ml @ 100 mls/hr IVPB Q24HR [facility] Rx#:[id number] Oral 622 Blood Product 284 Rc Pheresis As-3 Unit 284 [id number] Output: Urine 685 870 Other: Voiding Method Indwelling Catheter Indwelling Catheter - Labs CBC & Chem 7: 03/10/24 10:25 03/10/24 10:25 Labs: Abnormal Lab Results - Last 24 Hours (Table) 03/09/24 03/09/24 03/09/24 Range/Units 03:52 03:52 05:45 WBC (3.8-10.6) k/uL RBC 2.43 L (3.80-5.40) m/uL Hgb 6.5 L* (11.4-16.0) gm/dL Hct 20.8 L (34.0-46.0) % RDW 19.7 H (11.5-15.5) % Lymphocytes # 0.9 L (1.0-4.8) k/uL Sodium 133 L (137-145) mmol/L Chloride 111 H (98-107) mmol/L Carbon Dioxide 21 L (22-30) mmol/L BUN 31 H (7-17) mg/dL Creatinine 1.89 H (0.52-1.04) mg/dL Glucose 106 H (74-99) mg/dL POC Glucose (mg/dL) (70-110) mg/dL Calcium 7.6 L (8.4-10.2) mg/dL Crossmatch See Detail 03/09/24 03/09/24 Range/Units 19:07 20:02 WBC 11.7 H (3.8-10.6) k/uL RBC 3.33 L (3.80-5.40) m/uL Hgb 9.1 L D (11.4-16.0) gm/dL Hct 28.8 L (34.0-46.0) % RDW 18.9 H (11.5-15.5) % Lymphocytes # (1.0-4.8) k/uL Sodium (137-145) mmol/L Chloride (98-107) mmol/L Carbon Dioxide (22-30) mmol/L BUN (7-17) mg/dL Creatinine (0.52-1.04) mg/dL Glucose (74-99) mg/dL POC Glucose (mg/dL) 167 H (70-110) mg/dL Calcium (8.4-10.2) mg/dL Crossmatch Assessment and Plan (1) UTI (urinary tract infection) Current Visit: Yes Status: Acute Code(s): N39.0 - URINARY TRACT INFECTION, SITE NOT SPECIFIED SNOMED Code(s): 07598995 Plan: This is a telehealth visit 1patient presented to hospital with weakness not feeling well patient was hypotensive noticed to have hematuria with abnormal renal ultrasound concerning for mass versus clot in the urinary bladder did have a positive UA concerning for symptomatic urinary tract infection. 2patient with renal insufficiency and high risk of nephrotoxicity. 3patient urine has been finalized with Klebsiella that is sensitive to ceftriaxone 4- patient currently being treated with Rocephin while inpatient hopefully transition to oral antibiotic on discharge Dictation was produced using dragon dictation software. please excuse any grammatical, word or spelling errors. Time with Patient: Less than 30
[2024-03-17] MEDS ORDERED: FUROSEMIDE 20 MG TAB PO SCH (09:00)
--- NOTE | 2024-03-17 16:31 | P.DS ---
Providers Date of admission: 03/04/24 21:16 Attending physician: Francesco Gaston Consults: 03/04/24 21:13 Consult Physician Routine Consulting Provider: Tom Ramos Consult Reason/Comments: Urinary tract Infection Do you want consulting provider notified?: Yes 03/04/24 22:09 Consult Physician Routine Consulting Provider: Gerardo Hess Consult Reason/Comments: acute kidney injury Do you want consulting provider notified?: Yes 03/04/24 22:10 Consult Physician Routine Consulting Provider: Nabil Beck Consult Reason/Comments: hypotension Do you want consulting provider notified?: Yes 03/04/24 22:11 Consult Physician Routine Consulting Provider: Rhett Mcelroy Consult Reason/Comments: ischemic ECG, anterolat ST depressions Do you want consulting provider notified?: Already Contacted 03/05/24 00:48 Consult Physician Urgent Consulting Provider: Dewey Williamson Consult Reason/Comments: Gross hematuria Do you want consulting provider notified?: Yes 03/09/24 14:18 Consult Physician Routine Consulting Provider: Gulshan Charles Consult Reason/Comments: Hematuria Do you want consulting provider notified?: Yes Primary care physician: [facility] Course: HISTORY OF PRESENT ILLNESS: 83-year-old office patient with active medical history of Paroxysmal atrial fibrillation was on anticoagulation, history of hypertension, hyperlipidemia, stage III chronic kidney disease, chronic diastolic congestive heart failure, who also had recently history of non-ST NM with heart cath showed CAD including left main at 80% stenosis with mild LAD at 60 to 70% stenosis with circumflex 100% stenosis ended up having PCI of the left main and LAD, patient had multiple visits to the emergency department last few months with recurrent A-fib with RVR with similar claimed that she ran out of medication, she stopped taking medication a week ago, and many other. Sadly since her angioplasty and stent placement and the harm of not being on dual antiplatelet agent and her current medications extremely dangerous despite explaining this to the patient it looks like this event keep happening. She was hospitalized again in November for A-fib with RVR along with elevated troponin and anemia. She has been complaining of generalized weakness and fatigue post fall she apparently found in the bathroom developed severe lightheadedness and fell her son found her after work she was down for total hours she hit her head and right chest area has not had anything to eat or drink all day Call 911 patient brought to the emergency department at [facility] CT of the brain without contrast did not show any acute abnormality there is atrophy and microvascular finding. Found to be extremely hypertensive she was giving 1 L of IV saline and continue with 130 cc an hour she remained quite hypotensive she had anemia as well and found to be in A-fib with pulse rate running 110 beats per minutes her blood pressure still 80/60 she was started on vasopressor with norepinephrine was not having any chest pain or tightness at her proBNP was 18,800 with mildly elevated troponin. Her urine shows gross hematuria and has been having apparently problem with burning discomfort in bloody urine. She is on Eliquis for A-fib with RVR so she is on 2 Plavix since her angioplasty and stent early. 2 g of Rocephin was giving culture was done for blood and urine her hemoglobin initially was 8.8 and within few hours dropped down to 6 with hydration patient does not have any visual active GI bleed her BUN 54 creatinine 2.72 much worse than before lactic acid at 3.1. Patient was transferred to the ICU continue hydration, vasopressor, process for blood transfusion to be done. 03/06/2024: Continue to have gross hematuria causing more anemia despite a blood transfusion. Urology seen the patient and believe this is hemorrhagic cystitis aggravated by anticoagulation and they are recommending to irrigate the catheter when necessary still waiting for the urine culture to be finalized in the meanwhile she has remained on Rocephin 2 g daily. She is off vasopressor currently hemoglobin is up to 7.8. 2 unit of packed red cell transfusion. White blood cell is down 7.5 with normal platelet and creatinine improve down to 2.2 with bun of 43. Echocardiogram showed ejection fraction well-preserved with no significant valvular abnormality but mild left ventricular hypertrophy. Patient remain off anticoagulation and was giving 1 dose of Kcentra yesterday still holding on Eliquis and Plavix with cardiology restarted aspirin 81 mg a day. 03/07/2024: Continue to be on 4 L of oxygen to keep her pulse ox above 90 percentile, she had A-fib with RVR with significant worsening congestion of the lung consistent with more heart failure at this point. Started on Cardizem drip 10 mg an hour with her pulse remained above 100, hemoglobin still at 7.4 with normal platelet count creatinine 1.98 still been treated for urine positive for Klebsiella pneumonia with IV antibiotics at this point. Continue to have significant amount of hematuria mostly hemorrhagic cystitis and urology believe he can wait on doing cystoscopy to when she is stable as an outpatient. The kidney function slightly better still seen nephrology discussed that to be acute tubular necrosis nonoliguric secondary to hypotension anemia and sepsis to continue IV continue to treat UTI with no evidence of obstruction. 03/08/2024: Urine culture was positive for Klebsiella pneumonia which patient is responding well to IV Rocephin currently, hemodynamically become more stable, her hematuria has been much better and still having twinges of blood in the catheter. Respiratory failure tejada she is require between 2 and 3 L of O2 to keep her pulse ox above 90 percentile. She is still on Cardizem drip 5 mg an hour to keep pulse under 90 bpm also on Lopressor 50 mg twice a day and still on Eliquis 2.5 mg twice a day. Patient had slight pleural effusion advance diet mobility still significantly decreased and limited to bedrest currently. Nephrology wants her creatinine is down to 2.0 with GFR slightly bit better, continue hydration despite expansion of fluid overload causing more problem at this point. Hoping her creatinine will be down to its baseline before this happened. From cardiology standpoint ejection fraction on echo was well-preserved at 65-70 percentile with no significant valvular heart disease. Cardizem apparently is going to be stopped at some point soon try to monitor her pulse below 90 possible. 03/09/2024: Remain in ICU hemoglobin dropped down again to 6.5 blood transfusion process start again. Respiratory status is slightly better remain on 2 L of O2 at this point. She is still tachycardic running pulse rate around 100 2230 bpm despite being on metoprolol adding Cardizem for better pulse rate control. Her kidney function is better currently with creatinine down to 1.89, urology has no interest in doing cystoscopy at this point he still having a twinge of hematuria but not gross hematuria like before. After transfusions completed patient should be able to leave the ICU today cardiac floor on clinical research monitor. 03/12/2024: She was transferred out of the ICU on the weekend continue to be treated and managed for severe hematuria with severe anemia, her hemoglobin is up to 8.1 does not require any further blood transfusion, stage IIIb chronic kidney disease with creatinine subtle around 1.87 no blood drawn done this morning yet awaiting for the result. Her hemorrhagic cystitis has been treated with Rocephin culture shows Klebsiella pneumonia susceptible to many antibiotics. Catheter can be probably removed in the next 24 hours and prepare for patient might benefit from going to SNF specially after being sick not able to move for several days. Urology came back with change in plan especially with 3 units of blood transfusion because of the severity of the hematuria and with persistent of hematuria for the last several days agreed to do cystoscopy and fulguration and probably remove clot from her bladder which will help to clear the hematuria a lot faster. 03/13/2024: She is doing much better, Streeter catheter is showing very clear urine today, still regaining bowel bladder with saline via 3 port catheter. Her hemoglobin is down to 8.4 is not requiring transfusion, creatinine has remained at 1.85 which is close to her regular baseline. She does remain on Rocephin 2 g a day which is her original culture with Klebsiella is susceptible to it. Hopefully with improvement and then able to finalize her antibiotic to oral antibiotics and no more bleed we are looking into probably discharge around or Tuesday to SNF. Or sooner as patient is able to participate with physical therapy she will be able to push elevated more with PT. 03/14/2024: Still having bladder irrigation with saline has not been having any more bleeding. Was evaluated by urology not happy with the result so far, Streeter catheter will be removed hopefully later today if she has remained without any hematuria we can initiate anticoagulation as addressed tomorrow. Infectious disease are agreeable to continue short course of antibiotic orally upon her discharge from the hospital culture was for Klebsiella pneumonia which is susceptible to everything except ampicillin and nitrofurantoin so short course of Ceftin for 5 days would be acceptable. Patient mobility is still significantly decreased currently required to do little bit more physical therapy. No more acute bleed requiring transfusion her hemoglobin remained around 8.4. Kidney function plateaued and stable at stage IIIb chronic kidney disease with creatinine at 1.85. Apparently patient is in contact with a community mental health social worker did talk originally about having wound care she absolutely refused to go to any assisted program or help in jail program she believes she might go stay with her daughter and area around [place] for a period of time till she is ready to come home. 03/15/2024: No more hematuria, Streeter catheter is out and patient is able to void on her own, were given the okay by urology to initiate anticoagulation as early as today or tomorrow morning. Patient has slight confusion despite all the trial to find family member or somebody to talk to about discharge planning not successful she will keep talk about her daughter in [place] that she might move in with her for the next few days and she will have more help at the time. But could not contact her daughter in [place] and that she is going to talk to her tonight. Apparently community mental health social worker were able to get hold of the son I believe whenever his mom is ready to be discharged to give them a call that will make an arrangement to come pick her up from the hospital. In the meanwhile patient is having slight confusion still believe she can benefit from SNF rehab or being in place for previous time but apparently family are absolutely against it. For paroxysmal A-fib has been stable pulse rates under control currently and remain on anticoagulation which we will continue Eliquis 2.5 mg twice a day. 03/16/2024: Patient is feeling much better today, was seen and evaluated by urology she is not having any more hematuria at this point since underwent cystoscopy clot EVAC March 12. Still being treated for cystitis currently and she will be switched to oral Ceftin for the next 7 days. Patient will have an appointment to see urology as an outpatient also was giving the okay to back on oral anticoagulation. Nephrology tejada patient is plateaued with creatinine at 1.82 still in stage IIIb chronic kidney disease continue to avoid any nephrotoxic agent and have follow- up with nephrology. Infectious disease cleared patient again for discharge on 7 days course of cefdinar. 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 REVIEW OF SYSTEMS: CONSTITUTIONAL: Well-developed in no respiratory distress. EYES: No icterus sclerae, no conjunctivitis. EARS, NOSE, MOUTH, THROAT, and FACE: No sore throat, lymphadenopathy, carotid bruits or deformity. RESPIRATORY: Mild shortness of breath and dyspnea with no cough or wheezes. CARDIOVASCULAR: Positive palpitation and A-fib with no angina positive PND and orthopnea. GASTROINTESTINAL: No Abd pain, Nausea or vomiting, no Diarrhea or constipation, No GI Bleed, no distention or masses. GENITOURINARY: Negative for Hematuria or UTI, no kidney stones. INTEGUMENT/BREAST: Negative for any muscular injury with mild osteoarthritis.. HEMATOLOGIC/LYMPHATIC: Negative for bleed or purpura. MUSCULOSKELTAL: Negative for Myalgia or arthralgia. NEURLOGICAL: No LOC, Sz or syncope, blurred vision dizziness or abnormality.. BEHAVIORAL/PSYCH: Negative. ENDOCRINE: Negative. PHYSICAL EXAMINATION: General Appearance: Alert, cooperative, mild distress. Neck HEENT: Supple, no lymphadenopathy, no thyroid enlargement, no carotid bruits. Lungs: Decreased expansion bilaterally with fine rhonchi positive mild rhonchi but no wheezes. Chest Wall: Decreased expansion with deep inspiration no tenderness and no deformity was found on exam, no costochondral pain or discomfort. Heart: Irregular rate and rhythm, S1, S2 positive severe tachycardia positive ejection murmur. Back: Symmetric, no curvature, ROM normal, no CVA tenderness. Abdomen: Soft, non-tender, bowel sounds active all four quadrants, no masses, no organomegaly. Extremities: Trace edema without cyanotic. Pulses: 2+ and symmetric. Skin: Skin color, texture, tugor normal, no rashes or lesions. Neurologic: Alert oriented with slight confusion. Cranial nerves II through XII intact, no motor deficit, no abnormal balance or gait. ASSESSMENT AND PLAN: _Sepsis: Hemodynamically stable continue oral antibiotics after discharge to cover Klebsiella pneumonia patient remains on Rocephin currently. _Severe hematuria: Post cystoscopy and cleaning thrombus and clot her Streeter catheter came out she is having an outer catheter at this point with range of blood only does not require any irrigation for the bladder. _Severe hemorrhagic cystitis: Remain treated with for Klebsiella with Rocephin we will switch patient to oral Ceftin. _A-fib with RVR pulse rates not well-controlled remain on metoprolol and Cardizem currently. Pulse rate running in the 90s. She is back to oral metoprolol only. Pulse rate is under control. _Acute kidney injury on chronic kidney disease: Still stage IIIb chronic kidney disease does not require any dialysis and almost close to her baseline kidney function tejada, continue supportive care, avoid nephrotoxic and watch for any obstruction specially with her bleeding. _Acute blood loss anemia: Post 3 unit of blood transfusion hemoglobin stable above 8 no need for any more transfusion. _Acute systolic congestive heart failure with known coronary artery disease patient is still quite symptomatic will benefit from continued diuretic specially if we can slow down on too much IV fluid. _Possible non-ST NM with elevated troponin's, slightly abnormal EKG known history of myocardial infarction, patient be seen cardiology no intervention is needed at this point. _Atherosclerotic heart disease: Post PCI and stent placement from October has been seeing cardiology currently not being able to reinitiate anticoagulation with Plavix and Eliquis for now. _Type 2 diabetes: Continue Accu-Chek and sliding scale coverage she is not on any insulin still on Farxiga 10 mg a day Eventually can benefit from adding back her oral GLP-1 product. _Anticoagulation management: Patient will be back on oral_anticoagulation as early as tomorrow if no further bleed and her catheter resolved with no hematur ia. _Hyperlipidemia: Continue atorvastatin 20 mg a day. _Hypothyroidism: Continue levothyroxine 25 mcg daily. _GI prophylaxis: Will be on pantoprazole 40 mg daily. CODE STATUS: Full code. Discussion: Patient is ready to be discharged home today/03/16/2024 she refused to go to SNF or refuse any extra help or assistance. Family are agreeable with patient. She was evaluated by urology, nephrology and infectious disease all agree with the plan with oral antibiotics for now for next 7 days. Hospital course: Patient was admitted to the hospital on 03/05/2024 with generalized weakness fatigue post fall found to be in the bathroom developed to have lightheadedness and dizziness and fell to? Of syncopal episode she was down for period of time and then found by her son who called 911 and brought her to the emergency department [place], CT of the brain without contrast did not show any abnormal bleed but just microvascular change. Found to be in extreme hypotensive was giving 1 L of IV saline and continue at 150 cc an hour her blood pressure start correcting she developed to have A-fib with RVR pulse rate running 110 bpm blood pressure continue to be slightly below surprisingly patient found to be symptomatic and sepsis with severe hematuria with hemoglobin dropped down to 6.0. Bun was 54 with creatinine of 2.72. Lactic acid was 3.1. Patient was transferred to the ICU on vasopressor and transfusion did not require any intubation or mechanical ventilation. Urology were consulted with the severity of her hemorrhagic cystitis and severe hematuria still decided to do medical management only to treat her not to do cystoscopy yet. Being on anticoagulation between Plavix and Eliquis patient ended up receiving 1 dose of Kcentra which had helped to some degree but continued to have severe hemorrhage and hematuria for the following few days. Her urine culture came back positive for Klebsiella and she was already on a ctive medical treatment initially with Zosyn was switched to Rocephin and continue on it at that point. Finally on 03/12/2024 patient ended up going for cystoscopy and fulguration which had helped to control some of the bleeding she had a three-way Streeter catheter and Bladder irrigation for 48 hours which should help to clear the rest of the hematuria and the clot exist in the bladder. Through this time patient currently having tachycardia on and off knowing that we could not restart patient on her home meds between metoprolol and Cardizem specially with a low blood pressure but with a pulse rate going high patient finally was started on metoprolol and titrate dose higher and started again on Cardizem which finally kept the blood pressure under control. Patient walk with walker and she needed help with physical therapy which was done continue having significant cough at this point was likely with fluid overload with no infection and patient is back on diuretics which has helped some. On 03/16/2024 patient is stable and ready to be discharged family are agreeable to take patient home she refused to go to SNF or rehab or any assisted living at this point and they disagree even on home care she will have family to help her out and eventually she is going to stay with family in [facility] we are providing more physical help for period of time till she is ready to come home with limited help. Patient be discharged home on 03/16/2024. Time spent on discharging patient was over 45 minutes. Patient Condition at Discharge: Serious Plan - Discharge Summary Discharge Rx Participant: No New Discharge Prescriptions: New Aspirin 81 mg PO DAILY tab Cefdinir [Omnicef] 300 mg PO DAILY #7 cap Sodium Bicarbonate Tab 650 mg PO DAILY #30 tab Albuterol Inhaler [Ventolin Inhaler] 2 puff INHALATION Q6HR PRN #1 each PRN Reason: Shortness Of Breath Or Wheezing Famotidine [Pepcid] 20 mg PO DAILY #30 tab Benzonatate [Tessalon Perle] 200 mg PO AC-TID #60 capsule Acetaminophen Tab [Tylenol] 500 mg PO Q6HR PRN tab PRN Reason: Fever And/ Or Pain Continue Levothyroxine Sodium 25 mcg PO DAILY #30 tab diphenhydrAMINE HCL [Benadryl] 50 mg PO DAILY PRN PRN Reason: Allergy Symptoms Midodrine [ProAmatine] 5 mg PO TID Verapamil Sr [Isoptin Sr] 120 mg PO DAILY Isosorbide Mononitrate ER [Imdur] 15 mg PO DAILY Apixaban [Eliquis] 2.5 mg PO BID #60 tab Atorvastatin [Lipitor] 20 mg PO DAILY #30 tab Cetirizine HCl [Zyrtec] 10 mg PO DAILY PRN PRN Reason: Allergy Symptoms Empagliflozin [Jardiance] 10 mg PO HS Semaglutide [Rybelsus] 7 mg PO DAILY Furosemide [Lasix] 40 mg PO HS Clopidogrel [Plavix] 75 mg PO DAILY Changed Metoprolol Succinate (ER) [Toprol XL] 100 mg PO HS #0 Discontinued Midodrine HCl [ProAmatine] 10 mg PO BID Discharge Medication List Apixaban [Eliquis] 2.5 mg PO BID #60 tab 12/03/23 [Rx] Atorvastatin [Lipitor] 20 mg PO DAILY #30 tab 12/03/23 [Rx] Levothyroxine Sodium 25 mcg PO DAILY #30 tab 12/03/23 [Rx] Cetirizine HCl [Zyrtec] 10 mg PO DAILY PRN 03/04/24 [History] Clopidogrel [Plavix] 75 mg PO DAILY 03/04/24 [History] Empagliflozin [Jardiance] 10 mg PO HS 03/04/24 [History] Furosemide [Lasix] 40 mg PO HS 03/04/24 [History] Isosorbide Mononitrate ER [Imdur] 15 mg PO DAILY 03/04/24 [History] Midodrine [ProAmatine] 5 mg PO TID 03/04/24 [History] Semaglutide [Rybelsus] 7 mg PO DAILY 03/04/24 [History] Verapamil Sr [Isoptin Sr] 120 mg PO DAILY 03/04/24 [History] diphenhydrAMINE HCL [Benadryl] 50 mg PO DAILY PRN 03/04/24 [History] Acetaminophen Tab [Tylenol] 500 mg PO Q6HR PRN tab 03/16/24 [Rx] Albuterol Inhaler [Ventolin Inhaler] 2 puff INHALATION Q6HR PRN #1 each 03/16/24 [Rx] Aspirin 81 mg PO DAILY tab 03/16/24 [Rx] Benzonatate [Tessalon Perle] 200 mg PO AC-TID #60 capsule 03/16/24 [Rx] Cefdinir [Omnicef] 300 mg PO DAILY #7 cap 03/16/24 [Rx] Famotidine [Pepcid] 20 mg PO DAILY #30 tab 03/16/24 [Rx] Metoprolol Succinate (ER) [Toprol XL] 100 mg PO HS #0 03/16/24 [Rx] Sodium Bicarbonate Tab 650 mg PO DAILY #30 tab 03/16/24 [Rx] Follow up Appointment(s)/Referral(s): Sheyla Meadows MD [Primary Care Provider] - 03/21/24 1:45 pm (WITH AMANDEEP) [facility] [facility] [NON-STAFF] - (Call for transportation needs. ) Gerardo Hess DO [STAFF PHYSICIAN] - 04/03/24 2:40 pm (WITH NANY BURGER) Gulshan Charles MD [STAFF PHYSICIAN] - 03/26/24 11:20 am (WITH DR MALHOTRA) Patient Instructions/Handouts: Urinary Tract Infection in Women (GEN) Discharge/Stand Alone Forms: Who Do I Call?, Community Resources, Help In The Home Discharge Disposition: HOME WITH HOME HEALTH SERVICES
== END 2024-03-16 15:02 | disposition home health service (06) | DRG 853 ==
LOC: EC 15:31 → 5NMEDONC 21:16 → 2SICU 22:38 → 3SCARD 03-09 18:56
PROVIDERS: ADMIT Internal Medicine Geriatric Medicine; ATTEND Internal Medicine Geriatric Medicine
PROC: 30233N1 Transfusion of Nonautologous Red Blood Cells into Peripheral Vein, Percutaneous Approach (ICD-10-PCS; 2024-03-05)
PROC: 3E043XZ Introduction of Vasopressor into Central Vein, Percutaneous Approach (ICD-10-PCS; 2024-03-05)
PROC: 0W3R8ZZ Control Bleeding in Genitourinary Tract, Via Natural or Artificial Opening Endoscopic (ICD-10-PCS; principal; 2024-03-12 12:10)
PROC: 0TCB8ZZ Extirpation of Matter from Bladder, Via Natural or Artificial Opening Endoscopic (ICD-10-PCS; principal; 2024-03-12 12:10)
PROC: BT141ZZ Fluoroscopy of Kidneys, Ureters and Bladder using Low Osmolar Contrast (ICD-10-PCS; principal; 2024-03-12 12:10)
DX: A41.59 Other Gram-negative sepsis (principal); I50.43 Acute on chronic combined systolic (congestive) and diastolic (congestive) heart failure; N17.0 Acute kidney failure with tubular necrosis; D62 Acute posthemorrhagic anemia; D68.32 Hemorrhagic disorder due to extrinsic circulating anticoagulants; E87.20 Acidosis, unspecified; I13.0 Hypertensive heart and chronic kidney disease with heart failure and stage 1 through stage 4 chronic kidney disease, or unspecified chronic kidney disease; K92.2 Gastrointestinal hemorrhage, unspecified; L03.116 Cellulitis of left lower limb; N30.41 Irradiation cystitis with hematuria; N30.81 Other cystitis with hematuria; E03.9 Hypothyroidism, unspecified; E11.22 Type 2 diabetes mellitus with diabetic chronic kidney disease; E78.5 Hyperlipidemia, unspecified; E86.0 Dehydration; I95.9 Hypotension, unspecified; E86.1 Hypovolemia; R32 Unspecified urinary incontinence; I25.10 Atherosclerotic heart disease of native coronary artery without angina pectoris; I25.2 Old myocardial infarction; I34.0 Nonrheumatic mitral (valve) insufficiency; I44.7 Left bundle-branch block, unspecified; I48.0 Paroxysmal atrial fibrillation; N18.32 Chronic kidney disease, stage 3b; R65.20 Severe sepsis without septic shock; T45.515A Adverse effect of anticoagulants, initial encounter; Y84.2 Radiological procedure and radiotherapy as the cause of abnormal reaction of the patient, or of later complication, without mention of misadventure at the time of the procedure; Z79.01 Long term (current) use of anticoagulants; Z79.02 Long term (current) use of antithrombotics/antiplatelets; Z79.82 Long term (current) use of aspirin; Z79.84 Long term (current) use of oral hypoglycemic drugs; Z79.890 Hormone replacement therapy; Z79.899 Other long term (current) drug therapy; Z85.42 Personal history of malignant neoplasm of other parts of uterus; Z91.148 Patient's other noncompliance with medication regimen for other reason; Z95.5 Presence of coronary angioplasty implant and graft; Z71.3 Dietary counseling and surveillance; Z88.1 Allergy status to other antibiotic agents
CPT/HCPCS: 36415; 70450; 71045; 71046; 74176; 74420; 76770; 80048; 80053; 81001; 82533; 82728; 83540; 83550; 83605; 83735; 83880; 84132; 84484; 85025; 85027; 85610; 85730; 86850; 86900; 86901; 86920; 87040; 87077; 87086; 87186; 93005; 93306; 94760; 96361; 96365; 99291

== ENCOUNTER 2024-03-21 18:43 | Inpatient (IN) | payer MEDICARE ==
[2024-03-21 19:25] LABS: Anisocytosis Moderate; Basophils % (A) 0 %; Eosinophils % (A) 0 %; HCT 30.4 % (34.0-46.0); HGB 9.3 gm/dL (11.4-16.0); Hypochromasia Marked; Lymphocytes # (A) 0.7 k/uL (1.0-4.8); Lymphocytes % (A) 3 %; MCH 28.7 pg (25.0-35.0); MCHC 30.6 g/dL (31.0-37.0); MCV 93.9 fL (80.0-100.0); Macrocytosis Slight; Mean Platelet Volume 7.8; Monocytes # (A) 0.5 k/uL (0-1.0); Monocytes % (A) 2 %; Neutrophils # (A) 22.8 k/uL (1.3-7.7); Neutrophils % (A) 95 %; Platelet Count 642 k/uL (150-450); Poikilocytosis Slight; RBC 3.24 m/uL (3.80-5.40); RDW 20.3 % (11.5-15.5); WBC 24.2 k/uL (3.8-10.6)
[2024-03-21 19:37] LABS: ALT 17 U/L (4-34); AST 28 U/L (14-36); African American GFR (CKD) 20 (>60 ml/min/1.73 sqM); Albumin 3.1 g/dL (3.5-5.0); Alkaline Phosphatase 133 U/L (38-126); Anion Gap 14 mmol/L; Blood Urea Nitrogen 49 mg/dL (7-17); Calcium 8.1 mg/dL (8.4-10.2); Carbon Dioxide 18 mmol/L (22-30); Chloride 102 mmol/L (98-107); Glucose 242 mg/dL (74-99); Magnesium 2.7 mg/dL (1.6-2.3); Non-African American GFR(CKD) 17 (>60 ml/min/1.73 sqM); Potassium 4.3 mmol/L (3.5-5.1); Sodium 134 mmol/L (137-145); Total Bilirubin 1.1 mg/dL (0.2-1.3); Total Protein 6.2 g/dL (6.3-8.2)
[2024-03-21 20:06] LABS: INR 1.1 (<1.2); Partial Thromboplastin Time 24.6 sec (22.0-30.0); Prothrombin Time 11.8 sec (10.0-12.5)
[2024-03-21] MEDS: SODIUM CHLORIDE 0.9% 1,000 ML IV ONE (21:11)
[2024-03-21] MEDS: METOPROLOL TARTRATE 5 MG/5 ML VIAL IVP STA (21:11)
--- NOTE | 2024-03-21 21:45 | XR ---
EXAMINATION TYPE: XR chest 2V DATE OF EXAM: 03/21/2024 COMPARISON: 03/15/2024 HISTORY: Cough and chest pain TECHNIQUE: Frontal and lateral views of the chest are obtained. FINDINGS: Heart size is mildly prominent. The pulmonary vasculature appears mildly cephalized. The small effusi on seen on the prior study have nearly resolved with possible tiny persistent pleural effusions. Ther e is no pneumothorax. The osseous structures are intact IMPRESSION: Findings suggestive of mild CHF which has improved compared to the prior study. Clinical correlation is recommended.
--- NOTE | 2024-03-21 22:00 | CT ---
EXAMINATION TYPE: CT abdomen pelvis wo con DATE OF EXAM: 03/21/2024 COMPARISON: 03/05/2024 HISTORY: Poor kidney function, leukocytosis, abdominal pain CT DLP: 621.3 mGycm Automated exposure control for dose reduction was used. TECHNIQUE: Helical acquisition of images was performed from the lung bases through the pelvis. FINDINGS: The lungs are clear. There is dense sludge layering in the dependent portion of the gallbladder. There is no biliary ducta l dilatation. There is no organomegaly of the liver, pancreas, spleen or adrenal glands. There are no renal calcifications. There is persistent fullness in the right renal collecting system which could represent chronic hydronephrosis. In the dependent portion of the urinary bladder there i s masslike density which could represent neoplasm or blood clot and direct inspection is recommended. The caliber of the abdominal aorta is normal and there is no retroperitoneal adenopathy or hemorrhage . The bowel loops are normal in caliber is no evidence of obstruction. There is a large amount of stool within the rectum. No inflammatory changes are identified in the mesentery and there is no free intraperitoneal air or f luid. There is no pelvic mass, free fluid, abscess or adenopathy. The osseous structures and soft tissues are unremarkable. IMPRESSION: 1. Abnormal density in the dependent portion of the urinary bladder consistent with blood clots or ne oplasm and further evaluation with direct inspection as warranted. 2. large amount stool within the rectum but no bowel obstruction. 3. sludge in the dependent portion of the gallbladder without gallbladder wall thickening or perichol ecystic fluid.
[2024-03-21 23:05] LABS: Bacteria,Urine Many /hpf; RBC,Urine >182 /hpf (0-5); WBC,Urine >182 /hpf (0-5)
[2024-03-21] MEDS ORDERED: cefTRIAXone IN SWFI 1,000 MG/10 ML SYRINGE IVP STA (23:09)
--- NOTE | 2024-03-21 23:23 | ED ---
Arrhythmia/Palpitations HPI - General Chief Complaint: Arrhythmia/Palpitations Stated Complaint: GI Bleed Time Seen by Provider: 03/21/24 18:50 Source: patient, EMS Mode of arrival: EMS - History of Present Illness Initial Comments: 83-year-old female presents emergency department reporting weakness. States that at home today she was so weak that she passed out. She reports to diarrhea which is chronic for her. Denies any black or bloody stools. States that she has hematuria but this has been constant for her since she left the hospital. Patient was diagnosed with hemorrhagic cystitis and required blood transfusion. Patient arrives in A-fib with RVR. She has a history of A-fib. She did not take her medications this morning due to not feeling well. She denies any chest pain or shortness of breath. No nausea. No abdominal pain. She denies any injuries from her weakness. No fevers. Patient not currently on any anticoagulation. No other alleviating, precipitating modifying factors - Related Data Home Medications Medication Instructions Recorded Confirmed Cetirizine HCl [Zyrtec] 10 mg PO DAILY PRN 03/04/24 03/22/24 Empagliflozin [Jardiance] 10 mg PO HS 03/04/24 03/22/24 Isosorbide Mononitrate ER [Imdur] 15 mg PO DAILY 03/04/24 03/22/24 Midodrine [ProAmatine] 5 mg PO TID 03/04/24 03/22/24 Semaglutide [Rybelsus] 7 mg PO DAILY 03/04/24 03/22/24 Verapamil Sr [Isoptin Sr] 120 mg PO DAILY 03/04/24 03/22/24 diphenhydrAMINE HCL [Benadryl] 50 mg PO DAILY PRN 03/04/24 03/22/24 Albuterol Inhaler [Ventolin Hfa 2 puff INHALATION RT-Q6H PRN 03/22/24 03/22/24 Inhaler] Previous Rx's Medication Instructions Recorded Atorvastatin [Lipitor] 20 mg PO DAILY #30 tab 12/03/23 Levothyroxine Sodium 25 mcg PO DAILY #30 tab 12/03/23 Acetaminophen Tab [Tylenol] 500 mg PO Q6HR PRN tab 03/16/24 Aspirin 81 mg PO DAILY tab 03/16/24 Benzonatate [Tessalon Perle] 200 mg PO AC-TID #60 capsule 03/16/24 Sodium Bicarbonate Tab 650 mg PO DAILY #30 tab 03/16/24 Metoprolol Succinate (ER) [Toprol 50 mg PO HS tab 03/28/24 XL] Pantoprazole Sodium [Protonix] 40 mg PO BID 30 Days #60 tab 03/28/24 cefUROXime axetiL [Cefuroxime] 500 mg PO BID 3 Days #6 tab 03/28/24 Allergies Allergy/AdvReac Type Severity Reaction Status Date / Time bacitracin Allergy Rash/Hives Verified 03/22/24 10:54 [From Neosporin ([id number])] ibuprofen Allergy Anaphylaxis Verified 03/22/24 10:54 & Rash all over neomycin Allergy Rash/Hives Verified 03/22/24 10:54 [From Neosporin ([id number])] polymyxin B Allergy Rash/Hives Verified 03/22/24 10:54 [From Neosporin ([id number])] Review of Systems ROS Statement: Those systems with pertinent positive or pertinent negative responses have been documented in the HPI. ROS Other: All systems not noted in ROS Statement are negative. Past Medical History Past Medical History: Atrial Fibrillation, Diabetes Mellitus, Hypertension, Osteoarthritis (OA) Additional Past Medical History / Comment(s): uterine cancer, incontinent of urine History of Any Multi-Drug Resistant Organisms: None Reported Past Surgical History: No Surgical Hx Reported Additional Past Surgical History / Comment(s): cataract & carpal-tunnel bilat. Past Anesthesia/Blood Transfusion Reactions: No Reported Reaction Past Psychological History: No Psychological Hx Reported Smoking Status: Never smoker Past Alcohol Use History: None Reported Past Drug Use History: None Reported - Past Family History Mother Family Medical History: Coronary Artery Disease (CAD), Diabetes Mellitus, Hypertension, Mitral Valve Prolapse (MVP) Father Family Medical History: Hypertension Additional Family Medical History / Comment(s): father hip surgery General Exam General appearance: alert, in no apparent distress Head exam: Present: atraumatic, normocephalic, normal inspection Eye exam: Present: normal appearance, PERRL, EOMI. Absent: scleral icterus, conjunctival injection, periorbital swelling ENT exam: Present: normal exam, mucous membranes moist Neck exam: Present: normal inspection. Absent: tenderness, meningismus, lymphadenopathy Respiratory exam: Present: normal lung sounds bilaterally. Absent: respiratory distress, wheezes, rales, rhonchi, stridor Cardiovascular Exam: Present: tachycardia, irregular rhythm, normal heart sounds. Absent: systolic murmur, diastolic murmur, rubs, gallop, clicks GI/Abdominal exam: Present: soft, tenderness (suprapubic), normal bowel sounds. Absent: distended, guarding, rebound, rigid Extremities exam: Present: normal inspection, full ROM, normal capillary refill. Absent: tenderness, pedal edema, joint swelling, calf tenderness Back exam: Present: normal inspection Neurological exam: Present: alert, oriented X3, CN II-XII intact Psychiatric exam: Present: normal affect, normal mood Skin exam: Present: warm, dry, intact, normal color. Absent: rash Course Vital Signs 03/21/24 03/21/24 03/21/24 18:46 19:25 20:00 Temperature 97.6 F Pulse Rate 144 H 126 H 120 H Pulse Rate [ Beer Maker ] Respiratory 16 18 16 Rate Blood Pressure 116/68 81/63 116/67 O2 Sat by Pulse 95 98 99 Oximetry 03/21/24 03/21/24 03/22/24 21:00 23:30 00:47 Temperature Pulse Rate 120 H 116 H 114 H Pulse Rate [ Beer Maker ] Respiratory 16 16 16 Rate Blood Pressure 96/70 115/67 103/55 O2 Sat by Pulse 100 99 98 Oximetry 03/22/24 03/22/24 03/22/24 01:00 01:15 01:30 Temperature Pulse Rate 123 H 122 H 122 H Pulse Rate [ Beer Maker ] Respiratory 16 15 15 Rate Blood Pressure 103/55 108/59 106/68 O2 Sat by Pulse 99 99 98 Oximetry 03/22/24 03/22/24 03/22/24 01:45 02:00 02:15 Temperature Pulse Rate 102 H 118 H 121 H Pulse Rate [ Beer Maker ] Respiratory 15 15 16 Rate Blood Pressure 87/54 77/48 98/67 O2 Sat by Pulse 99 97 100 Oximetry 03/22/24 03/22/24 03/22/24 02:30 02:45 03:00 Temperature Pulse Rate 106 H 113 H 107 H Pulse Rate [ Beer Maker ] Respiratory 16 14 20 Rate Blood Pressure 106/56 106/56 88/53 O2 Sat by Pulse 99 99 98 Oximetry 03/22/24 03/22/24 03/22/24 03:15 03:30 03:45 Temperature Pulse Rate 104 H 98 113 H Pulse Rate [ Beer Maker ] Respiratory 21 18 16 Rate Blood Pressure 97/65 91/54 88/53 O2 Sat by Pulse 95 98 98 Oximetry 03/22/24 03/22/24 03/22/24 04:00 06:00 06:23 Temperature 97.2 F L 97.6 F Pulse Rate 108 H 112 H 90 Pulse Rate [ Beer Maker ] Respiratory 16 18 18 Rate Blood Pressure 107/69 90/52 104/65 O2 Sat by Pulse 99 98 Oximetry 03/22/24 03/22/24 03/22/24 06:43 09:27 09:28 Temperature 97.7 F 97.0 F L Pulse Rate 101 H 89 89 Pulse Rate [ Beer Maker ] Respiratory 18 18 18 Rate Blood Pressure 109/58 117/71 117/71 O2 Sat by Pulse 99 Oximetry 03/22/24 03/22/24 03/22/24 10:00 11:25 11:58 Temperature Pulse Rate 91 102 H Pulse Rate [ 103 H Beer Maker ] Respiratory 18 18 Rate Blood Pressure 125/89 111/66 O2 Sat by Pulse 99 98 Oximetry 03/22/24 03/22/24 03/22/24 13:16 15:03 16:24 Temperature Pulse Rate 88 91 80 Pulse Rate [ Beer Maker ] Respiratory 18 16 18 Rate Blood Pressure 103/69 129/76 92/68 O2 Sat by Pulse 100 100 95 Oximetry 03/22/24 17:16 Temperature 97.6 F Pulse Rate 82 Pulse Rate [ Beer Maker ] Respiratory 18 Rate Blood Pressure 115/54 O2 Sat by Pulse 98 Oximetry Medical Decision Making - Medical Decision Making Was pt. sent in by a medical professional or institution (, PA, [employer] FARMWORKER, urgent c are, hospital, or longterm...) When possible be specific @ -No Did you speak to anyone other than the patient for history (EMS, parent, family, police, friend...)? What history was obtained from this source @ -Spoke with EMS for history Did you review nursing and triage notes (agree or disagree)? Why? @ -I reviewed and agree with nursing and triage notes Were old charts reviewed (outside hosp., previous admission, EMS record, old EKG, old radiological studies, urgent care reports/EKG's, longterm records)? Report findings @ -Procedure note from March [address] Lawrence where patient had bladder flush performed Differential Diagnosis (chest pain, altered mental status, abdominal pain women, abdominal pain men, vaginal bleeding, weakness, fever, dyspnea, syncope, headache, dizziness, GI bleed, back pain, seizure, CVA, palpatations, mental health, musculoskeletal)? @ -Differential Weakness: Hypoglycemia, shock, sepsis, hyponatremia, anemia, infection, NH, ETOH, adverse medicine reaction, overdose, stroke, this is not meant to be an all-inclusive list. EKG interpreted by me (3pts min.). @ -Yes and demonstrates A-fib with a rate of 134. QRS 123. QTc of 416. ST depression V2 through V6. aVR elevation X-rays interpreted by me (1pt min.). @ -Yes and demonstrates no acute process CT interpreted by me (1pt min.). @ -Yes and demonstrates blood within the bladder U/S interpreted by me (1pt. min.). @ -None done What testing was considered but not performed or refused? (CT, X-rays, U/S, labs)? Why? @ -None What meds were considered but not given or refused? Why? @ -None Did you discuss the management of the patient with other professionals (professionals i.e. , PA, [employer] FARMWORKER, lab, RT, psych nurse, social media designer, surface plate finisher, teacher, promotion officer, case assembler)? Give summary @ -Spoke with Dr. Gaston who will admit the patient Was smoking cessation discussed for >3mins.? @ -No Was critical care preformed (if so, how long)? @ -Yes, 35 minutes for management of A-fib with RVR Were there social determinants of health that impacted care today? How? (Homelessness, low income, unemployed, alcoholism, drug addiction, transportation, low edu. Level, literacy, decrease access to med. care, half-way, rehab)? @ -No Was there de-escalation of care discussed even if they declined (Discuss DNR or withdrawal of care, Hospice)? DNR status @ -No What co-morbidities impacted this encounter? (DM, HTN, Smoking, COPD, CAD, Cancer, CVA, ARF, Chemo, Hep., AIDS, mental health diagnosis, sleep apnea, morbid obesity)? @ -A-fib with RVR, hemorrhagic cystitis Was patient admitted / discharged? Hospital course, mention meds given and route, prescriptions, significant lab abnormalities, going to OR and other pertinent info. @ -Upon arrival patient seen and evaluated in room 20. Thorough history and physical exam was performed. IV access was established. Laboratory studies are conducted. Patient was given Lopressor IV for her rapid A-fib. Patient was previously on pressors and therefore aggressive rate control is not pursued. Patient received IV fluids. Streeter catheter is placed. Patient is typed and screened due to the amount of hematuria that the patient is having. She is initiated on antibiotics. Recommended admission. Spoke with Dr. Figueroa who agreed to the admission Undiagnosed new problem with uncertain prognosis? @ -No Drug Therapy requiring intensive monitoring for toxicity (Heparin, Nitro, Insulin, Cardizem)? @ -No Were any procedures done? @ -No Diagnosis/symptom? @ -Acute hematuria, acute UTI, A-fib with RVR Acute, or Chronic, or Acute on Chronic? @ -Acute, recurrent Uncomplicated (without systemic symptoms) or Complicated (systemic symptoms)? @ -Complicated Side effects of treatment? @ -No Exacerbation, Progression, or Severe Exacerbation? @ -No Poses a threat to life or bodily function? How? (Chest pain, USA, NH, pneumonia, PE, COPD, DKA, ARF, appy, cholecystitis, CVA, Diverticulitis, Homicidal, Suicidal, threat to staff... and all critical care pts) @ -No - Lab Data Result diagrams: 03/28/24 11:28 03/28/24 11:28 Lab Results 03/21/24 03/21/24 03/21/24 Range/Units 19:04 19:04 19:04 WBC 24.2 H (3.8-10.6) k/uL RBC 3.24 L (3.80-5.40) m/uL Hgb 9.3 L (11.4-16.0) gm/dL Hct 30.4 L (34.0-46.0) % MCV 93.9 (80.0-100.0) fL MCH 28.7 (25.0-35.0) pg MCHC 30.6 L (31.0-37.0) g/dL RDW 20.3 H (11.5-15.5) % Plt Count 642 H (150-450) k/uL MPV 7.8 Neutrophils % 95 % Lymphocytes % 3 % Monocytes % 2 % Eosinophils % 0 % Basophils % 0 % Neutrophils # 22.8 H (1.3-7.7) k/uL Lymphocytes # 0.7 L (1.0-4.8) k/uL Monocytes # 0.5 (0-1.0) k/uL Eosinophils # 0.0 (0-0.7) k/uL Basophils # 0.0 (0-0.2) k/uL Hypochromasia Marked Poikilocytosis Slight Anisocytosis Moderate Macrocytosis Slight PT 11.8 (10.0-12.5) sec INR 1.1 (<1.2) APTT 24.6 (22.0-30.0) sec Sodium 134 L (137-145) mmol/L Potassium 4.3 (3.5-5.1) mmol/L Chloride 102 (98-107) mmol/L Carbon Dioxide 18 L (22-30) mmol/L Anion Gap 14 mmol/L BUN 49 H (7-17) mg/dL Creatinine 2.53 H (0.52-1.04) mg/dL Est GFR (CKD-EPI)AfAm 20 (>60 ml/min/1.73 sqM) Est GFR (CKD-EPI)NonAf 17 (>60 ml/min/1.73 sqM) Glucose 242 H (74-99) mg/dL Lactic Ac Sepsis Rflx Plasma Lactic Acid Jose L (0.7-2.0) mmol/L Calcium 8.1 L (8.4-10.2) mg/dL Magnesium 2.7 H (1.6-2.3) mg/dL Total Bilirubin 1.1 (0.2-1.3) mg/dL AST 28 (14-36) U/L ALT 17 (4-34) U/L Alkaline Phosphatase 133 H (38-126) U/L Troponin I (0.000-0.034) ng/mL Total Protein 6.2 L (6.3-8.2) g/dL Albumin 3.1 L (3.5-5.0) g/dL Urine Color Urine Appearance (Clear) Urine RBC (0-5) /hpf Urine WBC (0-5) /hpf Urine Bacteria (None) /hpf Blood Type Blood Type Recheck Bld Type Recheck Status Antibody Screen Crossmatch Spec Expiration Date 03/21/24 03/21/24 03/21/24 Range/Units 19:04 19:04 20:09 WBC (3.8-10.6) k/uL RBC (3.80-5.40) m/uL Hgb (11.4-16.0) gm/dL Hct (34.0-46.0) % MCV (80.0-100.0) fL MCH (25.0-35.0) pg MCHC (31.0-37.0) g/dL RDW (11.5-15.5) % Plt Count (150-450) k/uL MPV Neutrophils % % Lymphocytes % % Monocytes % % Eosinophils % % Basophils % % Neutrophils # (1.3-7.7) k/uL Lymphocytes # (1.0-4.8) k/uL Monocytes # (0-1.0) k/uL Eosinophils # (0-0.7) k/uL Basophils # (0-0.2) k/uL Hypochromasia Poikilocytosis Anisocytosis Macrocytosis PT (10.0-12.5) sec INR (<1.2) APTT (22.0-30.0) sec Sodium (137-145) mmol/L Potassium (3.5-5.1) mmol/L Chloride (98-107) mmol/L Carbon Dioxide (22-30) mmol/L Anion Gap mmol/L BUN (7-17) mg/dL Creatinine (0.52-1.04) mg/dL Est GFR (CKD-EPI)AfAm (>60 ml/min/1.73 sqM) Est GFR (CKD-EPI)NonAf (>60 ml/min/1.73 sqM) Glucose (74-99) mg/dL Lactic Ac Sepsis Rflx Y Plasma Lactic Acid Jose L 5.0 H* (0.7-2.0) mmol/L Calcium (8.4-10.2) mg/dL Magnesium (1.6-2.3) mg/dL Total Bilirubin (0.2-1.3) mg/dL AST (14-36) U/L ALT (4-34) U/L Alkaline Phosphatase (38-126) U/L Troponin I <0.012 (0.000-0.034) ng/mL Total Protein (6.3-8.2) g/dL Albumin (3.5-5.0) g/dL Urine Color Urine Appearance (Clear) Urine RBC (0-5) /hpf Urine WBC (0-5) /hpf Urine Bacteria (None) /hpf Blood Type Blood Type Recheck Bld Type Recheck Status Antibody Screen Crossmatch Spec Expiration Date 03/21/24 03/21/24 Range/Units 20:10 22:38 WBC (3.8-10.6) k/uL RBC (3.80-5.40) m/uL Hgb (11.4-16.0) gm/dL Hct (34.0-46.0) % MCV (80.0-100.0) fL MCH (25.0-35.0) pg MCHC (31.0-37.0) g/dL RDW (11.5-15.5) % Plt Count (150-450) k/uL MPV Neutrophils % % Lymphocytes % % Monocytes % % Eosinophils % % Basophils % % Neutrophils # (1.3-7.7) k/uL Lymphocytes # (1.0-4.8) k/uL Monocytes # (0-1.0) k/uL Eosinophils # (0-0.7) k/uL Basophils # (0-0.2) k/uL Hypochromasia Poikilocytosis Anisocytosis Macrocytosis PT (10.0-12.5) sec INR (<1.2) APTT (22.0-30.0) sec Sodium (137-145) mmol/L Potassium (3.5-5.1) mmol/L Chloride (98-107) mmol/L Carbon Dioxide (22-30) mmol/L Anion Gap mmol/L BUN (7-17) mg/dL Creatinine (0.52-1.04) mg/dL Est GFR (CKD-EPI)AfAm (>60 ml/min/1.73 sqM) Est GFR (CKD-EPI)NonAf (>60 ml/min/1.73 sqM) Glucose (74-99) mg/dL Lactic Ac Sepsis Rflx Plasma Lactic Acid Jose L (0.7-2.0) mmol/L Calcium (8.4-10.2) mg/dL Magnesium (1.6-2.3) mg/dL Total Bilirubin (0.2-1.3) mg/dL AST (14-36) U/L ALT (4-34) U/L Alkaline Phosphatase (38-126) U/L Troponin I (0.000-0.034) ng/mL Total Protein (6.3-8.2) g/dL Albumin (3.5-5.0) g/dL Urine Color Red Urine Appearance Bloody H (Clear) Urine RBC >182 H (0-5) /hpf Urine WBC >182 H (0-5) /hpf Urine Bacteria Many H (None) /hpf Blood Type B Positive Blood Type Recheck B Pos Bld Type Recheck Status No Antibody Screen NEGATIVE Crossmatch See Detail Spec Expiration Date 03/24/20242309 Disposition Clinical Impression: Atrial fibrillation with RVR, Acute kidney injury, Anemia, Lactic acidosis, Hypotension, UTI (urinary tract infection), Weakness Disposition: ADMITTED IP TO THIS [facility] Condition: Good Is patient prescribed a controlled substance at d/c from ED?: No Time of Disposition: 23:31 Decision to Admit Reason: Admit from EC Decision Date: 03/21/24 Decision Time: 23:31
[2024-03-21] MEDS ORDERED: NALOXONE 0.4 MG/ML 1 ML VIAL IV PRN (23:31)
[2024-03-21 23:33] LABS: Appearance,Urine Bloody (Clear)
[2024-03-21 23:34] LABS: Color,Urine Red
[2024-03-22] MEDS: cefTRIAXone IN SWFI 1,000 MG/10 ML SYRINGE IVP STA (00:40)
[2024-03-22] MEDS: SODIUM CHLORIDE 0.9% 1,000 ML IV SCH (00:40)
[2024-03-22] MEDS: MIDODRINE 5 MG TAB PO SCH (00:41)
[2024-03-22] MEDS: METOPROLOL SUCCINATE (ER) 100 MG TAB.ER.24H PO SCH (00:42)
[2024-03-22 02:53] LABS: Anisocytosis Moderate; Basophils % (A) 0 %; Eosinophils % (A) 0 %; HCT 23.7 % (34.0-46.0); Hypochromasia Moderate; Lymphocytes # (A) 0.9 k/uL (1.0-4.8); Lymphocytes % (A) 6 %; MCH 28.8 pg (25.0-35.0); MCHC 30.9 g/dL (31.0-37.0); Macrocytosis Slight; Mean Platelet Volume 7.3; Monocytes # (A) 0.4 k/uL (0-1.0); Monocytes % (A) 3 %; Neutrophils # (A) 14.4 k/uL (1.3-7.7); Neutrophils % (A) 91 %; Platelet Count 494 k/uL (150-450); Poikilocytosis Slight; RBC 2.55 m/uL (3.80-5.40); RDW 20.5 % (11.5-15.5); WBC 15.8 k/uL (3.8-10.6)
[2024-03-22 02:55] LABS: HGB 7.3 gm/dL (11.4-16.0)
[2024-03-22] MEDS: AMIODARONE 360 MG in DEXTROSE 5% IN WATER 200 ML IV ONE (03:58)
[2024-03-22 04:53] LABS: African American GFR (CKD) 21 (>60 ml/min/1.73 sqM); Anion Gap 7 mmol/L; Blood Urea Nitrogen 48 mg/dL (7-17); Calcium 7.4 mg/dL (8.4-10.2); Carbon Dioxide 22 mmol/L (22-30); Chloride 105 mmol/L (98-107); Glucose 113 mg/dL (74-99); Non-African American GFR(CKD) 18 (>60 ml/min/1.73 sqM); Potassium 3.3 mmol/L (3.5-5.1); Sodium 134 mmol/L (137-145)
[2024-03-22 05:21] LABS: Anisocytosis Moderate; Basophils % (A) 0 %; Eosinophils % (A) 0 %; Hypochromasia Marked; Lymphocytes # (A) 1.1 k/uL (1.0-4.8); Lymphocytes % (A) 8 %; MCH 28.3 pg (25.0-35.0); MCHC 29.8 g/dL (31.0-37.0); MCV 94.8 fL (80.0-100.0); Macrocytosis Slight; Mean Platelet Volume 7.8; Monocytes # (A) 0.5 k/uL (0-1.0); Monocytes % (A) 3 %; Neutrophils # (A) 12.1 k/uL (1.3-7.7); Neutrophils % (A) 88 %; Platelet Count 435 k/uL (150-450); Poikilocytosis Slight; RBC 2.43 m/uL (3.80-5.40); RDW 20.3 % (11.5-15.5); WBC 13.7 k/uL (3.8-10.6)
[2024-03-22 05:29] LABS: HGB 6.9 gm/dL (11.4-16.0)
--- NOTE | 2024-03-22 07:24 | P.HPIM ---
History of Present Illness H&P Date: 03/22/24 HISTORY OF PRESENT ILLNESS: 83-year-old with multimedical problems was hospitalized 2 weeks ago for over 10 days with multiple complications related to sepsis along with hypertension along with severe aggressive hemorrhagic cystitis and hematuria require multiple units of blood transfusion also require indwelling catheter and ended up finally going for an cystoscopy and fulguration with three-way's catheter to flush the bladder for over 48 hours before finally bleeding stopped. Patient was in the hospital for several days after the bleeding stopped completely with the recommendation to resume her anticoagulation for A-fib and for angioplasty and stent placement. With all the comorbidity and the complication she had patient and family absolutely refused to go anywhere but home the plan originally is for her to be home with physical therapy and home care with the help of family but she was supposed to go with family member who apparently had some medical background training to help her out to live in the [facility] for a few weeks till her symptoms improve and gain her independency. Also patient was supposed to have 2 follow-up appointment this week one of them in our office supposedly yesterday and 1 at the urology office this week she did not make it to both. She presented to the emergency department late in the evening because was very weak she passed out and reported having diarrhea with black stool along with severe hematuria with worsening incontinence. Patient also developed to have A- fib with RVR apparently told the ER that has not taking her antibiotic for the last 2 days because just not feeling well. She denies any injury from her weakness or presyncope and again patient is not doing any anticoagulation. As soon as her Streeter catheter went and patient had over 400 cc of hematuria with clear blood followed by 200 more hemoglobin is down already 7.3 and within couple hours dropped down to 6.9. She is in acute kidney failure and lactic acid up to 2.6 and UA had a pure hematuria at this point. Initiate patient at the emergency department on Rocephin she developed to have very rapid ventricular response despite using metoprolol 100 mg a day patient with recommendation of cardiology initiate amiodarone drip. Remain in the ER but to be transferred to the ICU with recurrent complication of medical problems. Can you refer to my history and physical from last admission for further more patient medical history. REVIEW OF SYSTEMS: CONSTITUTIONAL: Well-developed in no respiratory distress. EYES: No icterus sclerae, no conjunctivitis. EARS, NOSE, MOUTH, THROAT, and FACE: No sore throat, lymphadenopathy, carotid bruits or deformity. RESPIRATORY: Mild shortness of breath and dyspnea with no cough or wheezes. CARDIOVASCULAR: Positive palpitation and A-fib with no angina positive PND and orthopnea. GASTROINTESTINAL: Slight abdominal pain with nausea diarrhea and bloody with/tarry bowel movement along with significant hematuria. GENITOURINARY: Significant hematuria with Streeter catheter in. INTEGUMENT/BREAST: Negative for any muscular injury with mild osteoarthritis.. HEMATOLOGIC/LYMPHATIC: Negative for bleed or purpura. MUSCULOSKELTAL: Generalized myalgia and arthralgia. NEURLOGICAL: No LOC, Sz or syncope, blurred vision dizziness or abnormality.. BEHAVIORAL/PSYCH: Negative. ENDOCRINE: Negative. PHYSICAL EXAMINATION: General Appearance: Alert, cooperative, mild distress. Neck HEENT: Supple, no lymphadenopathy, no thyroid enlargement, no carotid bruits. Lungs: Decreased expansion bilaterally with fine rhonchi positive mild rhonchi but no wheezes. Chest Wall: Decreased expansion with deep inspiration no tenderness and no deformity was found on exam, no costochondral pain or discomfort. Heart: Irregular rate and rhythm, S1, S2 positive severe tachycardia positive ejection murmur. Back: Symmetric, no curvature, ROM normal, no CVA tenderness. Abdomen: Soft with positive bowel sounds slight discomfort lower abdominal region area mostly epigastric along with mid lower abdominal area no rebound or rigidity. Extremities: Trace edema without cyanotic. Pulses: 2+ and symmetric. Skin: Skin color, texture, tugor normal, no rashes or lesions. Neurologic: Alert oriented with slight confusion. Cranial nerves II through XII intact, no motor deficit, no abnormal balance or gait. ASSESSMENT AND PLAN: _Severe hematuria: Most likely recurrent of hemorrhagic cystitis with recent treatment she had, continue Rocephin IV patient She was supposed to stay on Omnicef orally apparently has not taken the last couple days. Will consult urology might require to go for another cystoscopy may be three-way's Streeter catheter flushes of her bladder 1 more time. _Acute GI bleed: With tarry and bloody stool, her hemoglobin dropped down significantly we will continue IV Protonix hold off on anticoagulation General surgery for backup if needed if continue to have any GI bleed. _A-fib with RVR: With very bad tachycardia at this point was started on amiodarone drip patient was on beta-nereyda not a clear whether she is taking her medication last 2 days are not at she was supposed to be on verapamil SR 120 mg daily along with metoprolol succinate 100 mg at bedtime and amiodarone ini tiated at this point will be continue for now see cardiology. _Acute kidney injury: With much worsening kidney function most likely from hypotension and bleed continue hydration correct patient hemodynamic status watch kidney function carefully. Nephrology consultation be done. _Acute blood loss anemia: Significant drop in hemoglobin 1 unit of RBC transfusion will be done follow-up with another 1 earlier in the day today. _Hypertension: Was on midodrine the patient continued to be symptomatic might need to be transferred to the ICU on vasopressor. _Sepsis and UTI: With her urine culture from last time with Klebsiella susceptible to many antibiotics patient will be on Rocephin for now till the culture again done and finalized this time. _Atherosclerotic heart disease: Post PCI and stent placement from October has been seeing cardiology she needs more assurance probably family need to be more involved making sure she is taking her medication on time and that she does not run out of medication. Consult cardiology holding off on antiplatelet agent for now because of the bleed. _Chronic systolic congestive heart failure: Not been able to keep up with her current medication will watch symptoms carefully and try to avoid fluid overload. _Type 2 diabetes: Has been doing well resume insulin with sliding scale coverage and was on Jardiance, continue medication. _Hyperlipidemia: Continue atorvastatin 20 mg a day. _Hypothyroidism: Continue levothyroxine 25 mcg daily. _GI prophylaxis: Will be on pantoprazole 40 mg daily. CODE STATUS: Full code. Admit patient to the inpatient service for more than 2 night stay. Past Medical History Past Medical History: Atrial Fibrillation, Diabetes Mellitus, Hypertension, Osteoarthritis (OA) Additional Past Medical History / Comment(s): uterine cancer, incontinent of urine History of Any Multi-Drug Resistant Organisms: None Reported Past Surgical History: No Surgical Hx Reported Additional Past Surgical History / Comment(s): cataract & carpal-tunnel bilat. Past Anesthesia/Blood Transfusion Reactions: No Reported Reaction Past Psychological History: No Psychological Hx Reported Smoking Status: Never smoker Past Alcohol Use History: None Reported Past Drug Use History: None Reported - Past Family History Mother Family Medical History: Coronary Artery Disease (CAD), Diabetes Mellitus, Hypertension, Mitral Valve Prolapse (MVP) Father Family Medical History: Hypertension Additional Family Medical History / Comment(s): father hip surgery Medications and Allergies Home Medications Medication Instructions Recorded Confirmed Type Apixaban [Eliquis] 2.5 mg PO BID #60 tab 12/03/23 03/04/24 Rx Atorvastatin [Lipitor] 20 mg PO DAILY #30 tab 12/03/23 03/04/24 Rx Levothyroxine Sodium 25 mcg PO DAILY #30 tab 12/03/23 03/04/24 Rx Cetirizine HCl [Zyrtec] 10 mg PO DAILY PRN 03/04/24 03/04/24 History Clopidogrel [Plavix] 75 mg PO DAILY 03/04/24 03/04/24 History Empagliflozin [Jardiance] 10 mg PO HS 03/04/24 03/04/24 History Furosemide [Lasix] 40 mg PO HS 03/04/24 03/04/24 History Isosorbide Mononitrate ER [Imdur] 15 mg PO DAILY 03/04/24 03/04/24 History Midodrine [ProAmatine] 5 mg PO TID 03/04/24 03/04/24 History Semaglutide [Rybelsus] 7 mg PO DAILY 03/04/24 03/04/24 History Verapamil Sr [Isoptin Sr] 120 mg PO DAILY 03/04/24 03/04/24 History diphenhydrAMINE HCL [Benadryl] 50 mg PO DAILY PRN 03/04/24 03/04/24 History Acetaminophen Tab [Tylenol] 500 mg PO Q6HR PRN tab 03/16/24 Rx Albuterol Inhaler [Ventolin 2 puff INHALATION Q6HR PRN #1 each 03/16/24 Rx Inhaler] Aspirin 81 mg PO DAILY tab 03/16/24 Rx Benzonatate [Tessalon Perle] 200 mg PO AC-TID #60 capsule 03/16/24 Rx Cefdinir [Omnicef] 300 mg PO DAILY #7 cap 03/16/24 Rx Famotidine [Pepcid] 20 mg PO DAILY #30 tab 03/16/24 Rx Metoprolol Succinate (ER) [Toprol 100 mg PO HS #0 03/16/24 03/04/24 Rx XL] Sodium Bicarbonate Tab 650 mg PO DAILY #30 tab 03/16/24 Rx Allergies Allergy/AdvReac Type Severity Reaction Status Date / Time bacitracin Allergy Rash/Hives Verified 03/04/24 17:28 [From Neosporin ([id number])] ibuprofen Allergy Anaphylaxis Verified 03/04/24 17:28 & Rash all over neomycin Allergy Rash/Hives Verified 03/04/24 17:28 [From Neosporin ([id number])] polymyxin B Allergy Rash/Hives Verified 03/04/24 17:28 [From Neosporin ([id number])] Physical Exam Vitals: Vital Signs Temp Pulse Resp BP Pulse Ox 03/22/24 04:00 108 H 16 107/69 99 03/22/24 03:45 113 H 16 88/53 98 03/22/24 03:30 98 18 91/54 98 03/22/24 03:15 104 H 21 97/65 95 03/22/24 03:00 107 H 20 88/53 98 03/22/24 02:45 113 H 14 106/56 99 03/22/24 02:30 106 H 16 106/56 99 03/22/24 02:15 121 H 16 98/67 100 03/22/24 02:00 118 H 15 77/48 97 03/22/24 01:45 102 H 15 87/54 99 03/22/24 01:30 122 H 15 106/68 98 03/22/24 01:15 122 H 15 108/59 99 03/22/24 01:00 123 H 16 103/55 99 03/22/24 00:47 114 H 16 103/55 98 03/21/24 23:30 116 H 16 115/67 99 03/21/24 21:00 120 H 16 96/70 100 03/21/24 20:00 120 H 16 116/67 99 03/21/24 19:25 126 H 18 81/63 98 03/21/24 18:46 97.6 F 144 H 16 116/68 95 Intake and Output 03/21/24 03/21/24 03/22/24 14:59 22:59 06:59 Other: Weight 77.111 kg Results CBC & Chem 7: 03/22/24 03:55 03/22/24 03:55 Labs: Abnormal Lab Results - Last 24 Hours (Table) 03/21/24 03/21/24 03/21/24 Range/Units 19:04 19:04 19:04 WBC 24.2 H (3.8-10.6) k/uL RBC 3.24 L (3.80-5.40) m/uL Hgb 9.3 L (11.4-16.0) gm/dL Hct 30.4 L (34.0-46.0) % MCHC 30.6 L (31.0-37.0) g/dL RDW 20.3 H (11.5-15.5) % Plt Count 642 H (150-450) k/uL Neutrophils # 22.8 H (1.3-7.7) k/uL Lymphocytes # 0.7 L (1.0-4.8) k/uL Sodium 134 L (137-145) mmol/L Potassium (3.5-5.1) mmol/L Carbon Dioxide 18 L (22-30) mmol/L BUN 49 H (7-17) mg/dL Creatinine 2.53 H (0.52-1.04) mg/dL Glucose 242 H (74-99) mg/dL Plasma Lactic Acid Jose L 5.0 H* (0.7-2.0) mmol/L Calcium 8.1 L (8.4-10.2) mg/dL Magnesium 2.7 H (1.6-2.3) mg/dL Alkaline Phosphatase 133 H (38-126) U/L Total Protein 6.2 L (6.3-8.2) g/dL Albumin 3.1 L (3.5-5.0) g/dL Urine Appearance (Clear) Urine RBC (0-5) /hpf Urine WBC (0-5) /hpf Urine Bacteria (None) /hpf 03/21/24 03/22/24 03/22/24 Range/Units 22:38 00:26 02:15 WBC 15.8 H (3.8-10.6) k/uL RBC 2.55 L (3.80-5.40) m/uL Hgb 7.3 L D (11.4-16.0) gm/dL Hct 23.7 L (34.0-46.0) % MCHC 30.9 L (31.0-37.0) g/dL RDW 20.5 H (11.5-15.5) % Plt Count 494 H (150-450) k/uL Neutrophils # 14.4 H (1.3-7.7) k/uL Lymphocytes # 0.9 L (1.0-4.8) k/uL Sodium (137-145) mmol/L Potassium (3.5-5.1) mmol/L Carbon Dioxide (22-30) mmol/L BUN (7-17) mg/dL Creatinine (0.52-1.04) mg/dL Glucose (74-99) mg/dL Plasma Lactic Acid Jose L 2.6 H* (0.7-2.0) mmol/L Calcium (8.4-10.2) mg/dL Magnesium (1.6-2.3) mg/dL Alkaline Phosphatase (38-126) U/L Total Protein (6.3-8.2) g/dL Albumin (3.5-5.0) g/dL Urine Appearance Bloody H (Clear) Urine RBC >182 H (0-5) /hpf Urine WBC >182 H (0-5) /hpf Urine Bacteria Many H (None) /hpf 03/22/24 03/22/24 Range/Units 03:55 03:55 WBC 13.7 H (3.8-10.6) k/uL RBC 2.43 L (3.80-5.40) m/uL Hgb 6.9 L* (11.4-16.0) gm/dL Hct 23.0 L (34.0-46.0) % MCHC 29.8 L (31.0-37.0) g/dL RDW 20.3 H (11.5-15.5) % Plt Count (150-450) k/uL Neutrophils # 12.1 H (1.3-7.7) k/uL Lymphocytes # (1.0-4.8) k/uL Sodium 134 L (137-145) mmol/L Potassium 3.3 L (3.5-5.1) mmol/L Carbon Dioxide (22-30) mmol/L BUN 48 H (7-17) mg/dL Creatinine 2.41 H (0.52-1.04) mg/dL Glucose 113 H (74-99) mg/dL Plasma Lactic Acid Jose L (0.7-2.0) mmol/L Calcium 7.4 L (8.4-10.2) mg/dL Magnesium (1.6-2.3) mg/dL Alkaline Phosphatase (38-126) U/L Total Protein (6.3-8.2) g/dL Albumin (3.5-5.0) g/dL Urine Appearance (Clear) Urine RBC (0-5) /hpf Urine WBC (0-5) /hpf Urine Bacteria (None) /hpf
[2024-03-22 08:50] LABS: Glucose,Whole Blood 126 mg/dL (70-110)
[2024-03-22] MEDS: INSULIN ASPART (NovoLOG) 100 UNIT/ML VIAL SQ SCH (08:55)
[2024-03-22 09:44] LABS: ALT 12 U/L (4-34); AST 22 U/L (14-36); African American GFR (CKD) 23 (>60 ml/min/1.73 sqM); Albumin 2.3 g/dL (3.5-5.0); Alkaline Phosphatase 83 U/L (38-126); Anion Gap 8 mmol/L; Blood Urea Nitrogen 48 mg/dL (7-17); Calcium 7.4 mg/dL (8.4-10.2); Carbon Dioxide 22 mmol/L (22-30); Chloride 106 mmol/L (98-107); Glucose 97 mg/dL (74-99); Non-African American GFR(CKD) 20 (>60 ml/min/1.73 sqM); Potassium 3.3 mmol/L (3.5-5.1); Sodium 136 mmol/L (137-145); Total Bilirubin 0.5 mg/dL (0.2-1.3); Total Protein 4.9 g/dL (6.3-8.2)
[2024-03-22 09:51] LABS: NT-Pro-B-Type Natriuretic Pept 22900 pg/mL
[2024-03-22 09:55] LABS: Appearance,Urine Turbid (Clear); Bacteria,Urine Moderate /hpf; Color,Urine Red; Mucus,Urine Few /hpf; RBC,Urine >182 /hpf (0-5); WBC,Urine >182 /hpf (0-5)
[2024-03-22] MEDS: PANTOPRAZOLE 40 MG/10 ML VIAL IVP SCH (09:57)
--- NOTE | 2024-03-22 10:35 | P.CRDCN ---
History of Present Illness History of present illness: HISTORY OF PRESENTING ILLNESS 83-year-old with past medical history of paroxysmal atrial fibrillation, hypertension, dyslipidemia, CKD, chronic diastolic heart failure, last NSTEMI in October 2023 requiring heart cath showing 80% left main stenosis and mid LAD 60 to 70% stenosis with EAP COUNSELOR of LCx. She underwent PCI of left main into LAD. Patient has also had multiple hospital visits with A-fib RVR's past as well as recent visit with anemia and hematuria. Patient was dischrged 1 week ago and had been feeling OK however has had continued diarrhea. She states she actually came back to ER secondary to diarrhea however deniea any blood in stool. Does however have severe hematuria which has been persistent despite stopping blood thinners. No chest pain or pressure. found to be Afib with RVR and placed on Amio drip. Lactic acid 5 however improved down to 3 with IVF bolus. Cr also improved. Has chronic R>L LE edema. No fevers or chills. REVIEW OF SYSTEMS 14 point review of system is negative except what is mentioned above in HPI. PHYSICAL EXAMINATION Vital signs reviewed. Head: Normocephalic. Eyes: Sclerae nonicteric. Neck: Brisk carotid upstroke, no jugular venous distention. Lungs: Poor inspiratory effort. Heart: irregularly irregular, S1-S2, , 2/6 systolic murmur . Abdomen: Soft nontender, positive bowel sounds. Extremities: 1+ edema, Neuro: no focal deficits. Detailed neuro exam was not performed. ASSESSMENT Elevated troponin, likely type II NSTEMI in setting of BOLA, sepsis and anemia Chronic systolic heart failure, CAD s/p PCI in October 2023. S/p PCI to left main into LAD 4 x 15 mm PRANAY Atrial fibrillation with RVR Acute blood loss anemia with hematuria Possible ssepsis CKD Hyperlipidemia Hypothyroidism Questionable medication compliance LE edema likely component of venous insufficency PLAN Hold all anticoagulation, antiplatelets for now. Larger sized stent 4 months ago and less risk of stent thrombosis Continue Toprol as tolerated and Amio for rate/ rhythm control Transfuse as needed, s/p 1 U PRBCs today Monitor hematuria, urology recs Further rec to follow Past Medical History Past Medical History: Atrial Fibrillation, Diabetes Mellitus, Hypertension, Osteoarthritis (OA) Additional Past Medical History / Comment(s): uterine cancer, incontinent of urine History of Any Multi-Drug Resistant Organisms: None Reported Past Surgical History: No Surgical Hx Reported Additional Past Surgical History / Comment(s): cataract & carpal-tunnel bilat. Past Anesthesia/Blood Transfusion Reactions: No Reported Reaction Past Psychological History: No Psychological Hx Reported Smoking Status: Never smoker Past Alcohol Use History: None Reported Past Drug Use History: None Reported - Past Family History Mother Family Medical History: Coronary Artery Disease (CAD), Diabetes Mellitus, Hypertension, Mitral Valve Prolapse (MVP) Father Family Medical History: Hypertension Additional Family Medical History / Comment(s): father hip surgery Medications and Allergies Home Medications Medication Instructions Recorded Confirmed Type Apixaban [Eliquis] 2.5 mg PO BID #60 tab 12/03/23 03/04/24 Rx Atorvastatin [Lipitor] 20 mg PO DAILY #30 tab 12/03/23 03/04/24 Rx Levothyroxine Sodium 25 mcg PO DAILY #30 tab 12/03/23 03/04/24 Rx Cetirizine HCl [Zyrtec] 10 mg PO DAILY PRN 03/04/24 03/04/24 History Clopidogrel [Plavix] 75 mg PO DAILY 03/04/24 03/04/24 History Empagliflozin [Jardiance] 10 mg PO HS 03/04/24 03/04/24 History Furosemide [Lasix] 40 mg PO HS 03/04/24 03/04/24 History Isosorbide Mononitrate ER [Imdur] 15 mg PO DAILY 03/04/24 03/04/24 History Midodrine [ProAmatine] 5 mg PO TID 03/04/24 03/04/24 History Semaglutide [Rybelsus] 7 mg PO DAILY 03/04/24 03/04/24 History Verapamil Sr [Isoptin Sr] 120 mg PO DAILY 03/04/24 03/04/24 History diphenhydrAMINE HCL [Benadryl] 50 mg PO DAILY PRN 03/04/24 03/04/24 History Acetaminophen Tab [Tylenol] 500 mg PO Q6HR PRN tab 03/16/24 Rx Albuterol Inhaler [Ventolin 2 puff INHALATION Q6HR PRN #1 each 03/16/24 Rx Inhaler] Aspirin 81 mg PO DAILY tab 03/16/24 Rx Benzonatate [Tessalon Perle] 200 mg PO AC-TID #60 capsule 03/16/24 Rx Cefdinir [Omnicef] 300 mg PO DAILY #7 cap 03/16/24 Rx Famotidine [Pepcid] 20 mg PO DAILY #30 tab 03/16/24 Rx Metoprolol Succinate (ER) [Toprol 100 mg PO HS #0 03/16/24 03/04/24 Rx XL] Sodium Bicarbonate Tab 650 mg PO DAILY #30 tab 03/16/24 Rx Allergies Allergy/AdvReac Type Severity Reaction Status Date / Time bacitracin Allergy Rash/Hives Verified 03/04/24 17:28 [From Neosporin ([id number])] ibuprofen Allergy Anaphylaxis Verified 03/04/24 17:28 & Rash all over neomycin Allergy Rash/Hives Verified 03/04/24 17:28 [From Neosporin ([id number])] polymyxin B Allergy Rash/Hives Verified 03/04/24 17:28 [From Neosporin ([id number])] Physical Exam Vitals: Vital Signs Temp Pulse Resp BP Pulse Ox 03/22/24 10:00 91 18 125/89 99 03/22/24 09:28 97.0 F L 89 18 117/71 03/22/24 09:27 89 18 117/71 99 03/22/24 06:43 97.7 F 101 H 18 109/58 03/22/24 06:23 97.6 F 90 18 104/65 03/22/24 06:00 97.2 F L 112 H 18 90/52 98 03/22/24 04:00 108 H 16 107/69 99 03/22/24 03:45 113 H 16 88/53 98 03/22/24 03:30 98 18 91/54 98 03/22/24 03:15 104 H 21 97/65 95 03/22/24 03:00 107 H 20 88/53 98 03/22/24 02:45 113 H 14 106/56 99 03/22/24 02:30 106 H 16 106/56 99 03/22/24 02:15 121 H 16 98/67 100 03/22/24 02:00 118 H 15 77/48 97 03/22/24 01:45 102 H 15 87/54 99 03/22/24 01:30 122 H 15 106/68 98 03/22/24 01:15 122 H 15 108/59 99 06/27/24 01:00 123 H 16 103/55 99 03/22/24 00:47 114 H 16 103/55 98 03/21/24 23:30 116 H 16 115/67 99 03/21/24 21:00 120 H 16 96/70 100 03/21/24 20:00 120 H 16 116/67 99 03/21/24 19:25 126 H 18 81/63 98 03/21/24 18:46 97.6 F 144 H 16 116/68 95 Intake and Output 03/21/24 03/22/24 03/22/24 22:59 06:59 14:59 Intake Total 0 280 Output Total 50 Balance 0 230 Intake: Blood Product 0 280 Rc Pheresis 2 As3 Unit 0 280 [id number] Output: Urine 50 Straight 50 Other: Weight 77.111 kg Results 03/22/24 03:55 03/22/24 08:50 Cardiac Enzymes 03/21/24 03/21/24 03/21/24 Range/Units 19:04 19:04 19:04 WBC 24.2 H (3.8-10.6) k/uL RBC 3.24 L (3.80-5.40) m/uL Hgb 9.3 L (11.4-16.0) gm/dL Hct 30.4 L (34.0-46.0) % MCV 93.9 (80.0-100.0) fL MCH 28.7 (25.0-35.0) pg MCHC 30.6 L (31.0-37.0) g/dL RDW 20.3 H (11.5-15.5) % Plt Count 642 H (150-450) k/uL MPV 7.8 Neutrophils % 95 % Lymphocytes % 3 % Monocytes % 2 % Eosinophils % 0 % Basophils % 0 % Neutrophils # 22.8 H (1.3-7.7) k/uL Lymphocytes # 0.7 L (1.0-4.8) k/uL Monocytes # 0.5 (0-1.0) k/uL Eosinophils # 0.0 (0-0.7) k/uL Basophils # 0.0 (0-0.2) k/uL Hypochromasia Marked Poikilocytosis Slight Anisocytosis Moderate Macrocytosis Slight PT 11.8 (10.0-12.5) sec INR 1.1 (<1.2) APTT 24.6 (22.0-30.0) sec Sodium 134 L (137-145) mmol/L Potassium 4.3 (3.5-5.1) mmol/L Chloride 102 (98-107) mmol/L Carbon Dioxide 18 L (22-30) mmol/L Anion Gap 14 mmol/L BUN 49 H (7-17) mg/dL Creatinine 2.53 H (0.52-1.04) mg/dL Est GFR (CKD-EPI)AfAm 20 (>60 ml/min/1.73 sqM) Est GFR (CKD-EPI)NonAf 17 (>60 ml/min/1.73 sqM) Glucose 242 H (74-99) mg/dL POC Glucose (mg/dL) (70-110) mg/dL POC Glu Water Filter Cleaner ID Lactic Ac Sepsis Rflx Plasma Lactic Acid Jose L (0.7-2.0) mmol/L Calcium 8.1 L (8.4-10.2) mg/dL Magnesium 2.7 H (1.6-2.3) mg/dL Total Bilirubin 1.1 (0.2-1.3) mg/dL AST 28 (14-36) U/L ALT 17 (4-34) U/L Alkaline Phosphatase 133 H (38-126) U/L Troponin I (0.000-0.034) ng/mL NT-Pro-B Natriuret Pep pg/mL Total Protein 6.2 L (6.3-8.2) g/dL Albumin 3.1 L (3.5-5.0) g/dL Urine Color Urine Appearance (Clear) Urine RBC (0-5) /hpf Urine WBC (0-5) /hpf Urine WBC Clumps (None) /hpf Urine Bacteria (None) /hpf Urine Mucus (None) /hpf 03/21/24 03/21/24 03/21/24 Range/Units 19:04 19:04 20:09 WBC (3.8-10.6) k/uL RBC (3.80-5.40) m/uL Hgb (11.4-16.0) gm/dL Hct (34.0-46.0) % MCV (80.0-100.0) fL MCH (25.0-35.0) pg MCHC (31.0-37.0) g/dL RDW (11.5-15.5) % Plt Count (150-450) k/uL MPV Neutrophils % % Lymphocytes % % Monocytes % % Eosinophils % % Basophils % % Neutrophils # (1.3-7.7) k/uL Lymphocytes # (1.0-4.8) k/uL Monocytes # (0-1.0) k/uL Eosinophils # (0-0.7) k/uL Basophils # (0-0.2) k/uL Hypochromasia Poikilocytosis Anisocytosis Macrocytosis PT (10.0-12.5) sec INR (<1.2) APTT (22.0-30.0) sec Sodium (137-145) mmol/L Potassium (3.5-5.1) mmol/L Chloride (98-107) mmol/L Carbon Dioxide (22-30) mmol/L Anion Gap mmol/L BUN (7-17) mg/dL Creatinine (0.52-1.04) mg/dL Est GFR (CKD-EPI)AfAm (>60 ml/min/1.73 sqM) Est GFR (CKD-EPI)NonAf (>60 ml/min/1.73 sqM) Glucose (74-99) mg/dL POC Glucose (mg/dL) (70-110) mg/dL POC Glu Water Filter Cleaner ID Lactic Ac Sepsis Rflx Y Plasma Lactic Acid Jose L 5.0 H* (0.7-2.0) mmol/L Calcium (8.4-10.2) mg/dL Magnesium (1.6-2.3) mg/dL Total Bilirubin (0.2-1.3) mg/dL AST (14-36) U/L ALT (4-34) U/L Alkaline Phosphatase (38-126) U/L Troponin I <0.012 (0.000-0.034) ng/mL NT-Pro-B Natriuret Pep pg/mL Total Protein (6.3-8.2) g/dL Albumin (3.5-5.0) g/dL Urine Color Urine Appearance (Clear) Urine RBC (0-5) /hpf Urine WBC (0-5) /hpf Urine WBC Clumps (None) /hpf Urine Bacteria (None) /hpf Urine Mucus (None) /hpf 03/21/24 03/22/24 03/22/24 Range/Units 22:38 00:26 01:15 WBC (3.8-10.6) k/uL RBC (3.80-5.40) m/uL Hgb (11.4-16.0) gm/dL Hct (34.0-46.0) % MCV (80.0-100.0) fL MCH (25.0-35.0) pg MCHC (31.0-37.0) g/dL RDW (11.5-15.5) % Plt Count (150-450) k/uL MPV Neutrophils % % Lymphocytes % % Monocytes % % Eosinophils % % Basophils % % Neutrophils # (1.3-7.7) k/uL Lymphocytes # (1.0-4.8) k/uL Monocytes # (0-1.0) k/uL Eosinophils # (0-0.7) k/uL Basophils # (0-0.2) k/uL Hypochromasia Poikilocytosis Anisocytosis Macrocytosis PT (10.0-12.5) sec INR (<1.2) APTT (22.0-30.0) sec Sodium (137-145) mmol/L Potassium (3.5-5.1) mmol/L Chloride (98-107) mmol/L Carbon Dioxide (22-30) mmol/L Anion Gap mmol/L BUN (7-17) mg/dL Creatinine (0.52-1.04) mg/dL Est GFR (CKD-EPI)AfAm (>60 ml/min/1.73 sqM) Est GFR (CKD-EPI)NonAf (>60 ml/min/1.73 sqM) Glucose (74-99) mg/dL POC Glucose (mg/dL) (70-110) mg/dL POC Glu Water Filter Cleaner ID Lactic Ac Sepsis Rflx Y Plasma Lactic Acid Jose L 2.6 H* (0.7-2.0) mmol/L Calcium (8.4-10.2) mg/dL Magnesium (1.6-2.3) mg/dL Total Bilirubin (0.2-1.3) mg/dL AST (14-36) U/L ALT (4-34) U/L Alkaline Phosphatase (38-126) U/L Troponin I (0.000-0.034) ng/mL NT-Pro-B Natriuret Pep pg/mL Total Protein (6.3-8.2) g/dL Albumin (3.5-5.0) g/dL Urine Color Red Urine Appearance Bloody H (Clear) Urine RBC >182 H (0-5) /hpf Urine WBC >182 H (0-5) /hpf Urine WBC Clumps (None) /hpf Urine Bacteria Many H (None) /hpf Urine Mucus (None) /hpf 03/22/24 03/22/24 03/22/24 Range/Units 02:15 03:55 03:55 WBC 15.8 H 13.7 H (3.8-10.6) k/uL RBC 2.55 L 2.43 L (3.80-5.40) m/uL Hgb 7.3 L D 6.9 L* (11.4-16.0) gm/dL Hct 23.7 L 23.0 L (34.0-46.0) % MCV 93.0 94.8 (80.0-100.0) fL MCH 28.8 28.3 (25.0-35.0) pg MCHC 30.9 L 29.8 L (31.0-37.0) g/dL RDW 20.5 H 20.3 H (11.5-15.5) % Plt Count 494 H 435 (150-450) k/uL MPV 7.3 7.8 Neutrophils % 91 88 % Lymphocytes % 6 8 % Monocytes % 3 3 % Eosinophils % 0 0 % Basophils % 0 0 % Neutrophils # 14.4 H 12.1 H (1.3-7.7) k/uL Lymphocytes # 0.9 L 1.1 (1.0-4.8) k/uL Monocytes # 0.4 0.5 (0-1.0) k/uL Eosinophils # 0.0 0.0 (0-0.7) k/uL Basophils # 0.0 0.0 (0-0.2) k/uL Hypochromasia Moderate Marked Poikilocytosis Slight Slight Anisocytosis Moderate Moderate Macrocytosis Slight Slight PT (10.0-12.5) sec INR (<1.2) APTT (22.0-30.0) sec Sodium 134 L (137-145) mmol/L Potassium 3.3 L (3.5-5.1) mmol/L Chloride 105 (98-107) mmol/L Carbon Dioxide 22 (22-30) mmol/L Anion Gap 7 mmol/L BUN 48 H (7-17) mg/dL Creatinine 2.41 H (0.52-1.04) mg/dL Est GFR (CKD-EPI)AfAm 21 (>60 ml/min/1.73 sqM) Est GFR (CKD-EPI)NonAf 18 (>60 ml/min/1.73 sqM) Glucose 113 H (74-99) mg/dL POC Glucose (mg/dL) (70-110) mg/dL POC Glu Water Filter Cleaner ID Lactic Ac Sepsis Rflx Plasma Lactic Acid Jose L (0.7-2.0) mmol/L Calcium 7.4 L (8.4-10.2) mg/dL Magnesium (1.6-2.3) mg/dL Total Bilirubin (0.2-1.3) mg/dL AST (14-36) U/L ALT (4-34) U/L Alkaline Phosphatase (38-126) U/L Troponin I (0.000-0.034) ng/mL NT-Pro-B Natriuret Pep pg/mL Total Protein (6.3-8.2) g/dL Albumin (3.5-5.0) g/dL Urine Color Urine Appearance (Clear) Urine RBC (0-5) /hpf Urine WBC (0-5) /hpf Urine WBC Clumps (None) /hpf Urine Bacteria (None) /hpf Urine Mucus (None) /hpf 03/22/24 03/22/24 03/22/24 Range/Units 03:55 08:49 08:50 WBC (3.8-10.6) k/uL RBC (3.80-5.40) m/uL Hgb (11.4-16.0) gm/dL Hct (34.0-46.0) % MCV (80.0-100.0) fL MCH (25.0-35.0) pg MCHC (31.0-37.0) g/dL RDW (11.5-15.5) % Plt Count (150-450) k/uL MPV Neutrophils % % Lymphocytes % % Monocytes % % Eosinophils % % Basophils % % Neutrophils # (1.3-7.7) k/uL Lymphocytes # (1.0-4.8) k/uL Monocytes # (0-1.0) k/uL Eosinophils # (0-0.7) k/uL Basophils # (0-0.2) k/uL Hypochromasia Poikilocytosis Anisocytosis Macrocytosis PT (10.0-12.5) sec INR (<1.2) APTT (22.0-30.0) sec Sodium 136 L (137-145) mmol/L Potassium 3.3 L (3.5-5.1) mmol/L Chloride 106 (98-107) mmol/L Carbon Dioxide 22 (22-30) mmol/L Anion Gap 8 mmol/L BUN 48 H (7-17) mg/dL Creatinine 2.22 H (0.52-1.04) mg/dL Est GFR (CKD-EPI)AfAm 23 (>60 ml/min/1.73 sqM) Est GFR (CKD-EPI)NonAf 20 (>60 ml/min/1.73 sqM) Glucose 97 (74-99) mg/dL POC Glucose (mg/dL) 126 H (70-110) mg/dL POC Glu Water Filter Cleaner ID [place]combe, Kayleigh Lactic Ac Sepsis Rflx Plasma Lactic Acid Jose L 1.6 (0.7-2.0) mmol/L Calcium 7.4 L (8.4-10.2) mg/dL Magnesium (1.6-2.3) mg/dL Total Bilirubin 0.5 (0.2-1.3) mg/dL AST 22 (14-36) U/L ALT 12 (4-34) U/L Alkaline Phosphatase 83 (38-126) U/L Troponin I (0.000-0.034) ng/mL NT-Pro-B Natriuret Pep [id number] pg/mL Total Protein 4.9 L (6.3-8.2) g/dL Albumin 2.3 L (3.5-5.0) g/dL Urine Color Urine Appearance (Clear) Urine RBC (0-5) /hpf Urine WBC (0-5) /hpf Urine WBC Clumps (None) /hpf Urine Bacteria (None) /hpf Urine Mucus (None) /hpf 03/22/24 Range/Units 09:41 WBC (3.8-10.6) k/uL RBC (3.80-5.40) m/uL Hgb (11.4-16.0) gm/dL Hct (34.0-46.0) % MCV (80.0-100.0) fL MCH (25.0-35.0) pg MCHC (31.0-37.0) g/dL RDW (11.5-15.5) % Plt Count (150-450) k/uL MPV Neutrophils % % Lymphocytes % % Monocytes % % Eosinophils % % Basophils % % Neutrophils # (1.3-7.7) k/uL Lymphocytes # (1.0-4.8) k/uL Monocytes # (0-1.0) k/uL Eosinophils # (0-0.7) k/uL Basophils # (0-0.2) k/uL Hypochromasia Poikilocytosis Anisocytosis Macrocytosis PT (10.0-12.5) sec INR (<1.2) APTT (22.0-30.0) sec Sodium (137-145) mmol/L Potassium (3.5-5.1) mmol/L Chloride (98-107) mmol/L Carbon Dioxide (22-30) mmol/L Anion Gap mmol/L BUN (7-17) mg/dL Creatinine (0.52-1.04) mg/dL Est GFR (CKD-EPI)AfAm (>60 ml/min/1.73 sqM) Est GFR (CKD-EPI)NonAf (>60 ml/min/1.73 sqM) Glucose (74-99) mg/dL POC Glucose (mg/dL) (70-110) mg/dL POC Glu Water Filter Cleaner ID Lactic Ac Sepsis Rflx Plasma Lactic Acid Jose L (0.7-2.0) mmol/L Calcium (8.4-10.2) mg/dL Magnesium (1.6-2.3) mg/dL Total Bilirubin (0.2-1.3) mg/dL AST (14-36) U/L ALT (4-34) U/L Alkaline Phosphatase (38-126) U/L Troponin I (0.000-0.034) ng/mL NT-Pro-B Natriuret Pep pg/mL Total Protein (6.3-8.2) g/dL Albumin (3.5-5.0) g/dL Urine Color Red Urine Appearance Turbid H (Clear) Urine RBC >182 H (0-5) /hpf Urine WBC >182 H (0-5) /hpf Urine WBC Clumps Many H (None) /hpf Urine Bacteria Moderate H (None) /hpf Urine Mucus Few H (None) /hpf Coagulation 03/21/24 Range/Units 19:04 PT 11.8 (10.0-12.5) sec APTT 24.6 (22.0-30.0) sec CBC 03/21/24 03/22/24 03/22/24 Range/Units 19:04 02:15 03:55 WBC 24.2 H 15.8 H 13.7 H (3.8-10.6) k/uL RBC 3.24 L 2.55 L 2.43 L (3.80-5.40) m/uL Hgb 9.3 L 7.3 L D 6.9 L* (11.4-16.0) gm/dL Hct 30.4 L 23.7 L 23.0 L (34.0-46.0) % Plt Count 642 H 494 H 435 (150-450) k/uL Comprehensive Metabolic Panel 03/21/24 03/22/24 03/22/24 Range/Units 19:04 03:55 08:50 Sodium 134 L 134 L 136 L (137-145) mmol/L Potassium 4.3 3.3 L 3.3 L (3.5-5.1) mmol/L Chloride 102 105 106 (98-107) mmol/L Carbon Dioxide 18 L 22 22 (22-30) mmol/L BUN 49 H 48 H 48 H (7-17) mg/dL Creatinine 2.53 H 2.41 H 2.22 H (0.52-1.04) mg/dL Glucose 242 H 113 H 97 (74-99) mg/dL Calcium 8.1 L 7.4 L 7.4 L (8.4-10.2) mg/dL AST 28 22 (14-36) U/L ALT 17 12 (4-34) U/L Alkaline Phosphatase 133 H 83 (38-126) U/L Total Protein 6.2 L 4.9 L (6.3-8.2) g/dL Albumin 3.1 L 2.3 L (3.5-5.0) g/dL Current Medications Generic Name Dose Route Start Last Admin Trade Name Tahir PRN Reason Stop Dose Admin Sodium Chloride 1,000 mls @ 130 mls/hr 03/21/24 23:15 03/22/24 06:16 Saline 0.9% IV 130 mls/hr .[id number] NERISSA Administration Ceftriaxone Sodium 1 gm/ 50 mls @ 100 mls/hr 03/22/24 09:00 03/22/24 09:58 Sodium Chloride IVPB 100 mls/hr Q24HR NERISSA Administration Protocol Amiodarone HCl 450 mg/ 250 mls @ 16.667 mls/hr 03/22/24 10:30 Dextrose/Water IV 03/23/24 04:29 .Q15H NERISSA Protocol 0.5 MG/MIN Insulin Aspart 0 unit 03/22/24 07:30 03/22/24 08:55 Insulin Aspart (Novolog) 100 Unit/Ml Vial SQ Not Given ACHS NERISSA Protocol Metoprolol Succinate 100 mg 03/21/24 23:45 03/22/24 03:44 Metoprolol Succinate (Er) 100 Mg Tab.Er.24h PO Not Given HS NERISSA Midodrine 5 mg 03/21/24 23:45 03/22/24 09:57 Midodrine 5 Mg Tab PO 5 mg TID NERISSA Administration Naloxone HCl 0.2 mg 03/21/24 23:31 Naloxone 0.4 Mg/Ml 1 Ml Vial IV Q2M PRN Opioid Reversal Pantoprazole Sodium 40 mg 03/22/24 09:00 03/22/24 09:57 Pantoprazole 40 Mg/10 Ml Vial IVP 40 mg BID NERISSA Administration Intake and Output 03/21/24 03/22/24 03/22/24 22:59 06:59 14:59 Intake Total 0 280 Output Total 50 Balance 0 230 Intake: Blood Product 0 280 Rc Pheresis 2 As3 Unit 0 280 [id number] Output: Urine 50 Straight 50 Other: Weight 77.111 kg 03/22/24 03:55 03/22/24 08:50
[2024-03-22] MEDS: AMIODARONE 450 MG in DEXTROSE 5% IN WATER 250 ML IV SCH (11:25)
[2024-03-22 12:35] LABS: Glucose,Whole Blood 150 mg/dL (70-110)
--- NOTE | 2024-03-22 12:37 | P.NPCON ---
History of Present Illness - Reason for Consult acute renal failure - History of Present Illness Patient is an 83-year-old female with history of hypertension, chronic kidney disease and Stage IIIb with previous creatinine of 1.5 to 1.8 mg/dL Patient was recently hospitalized 2 weeks ago and discharged on 03/16/2024. Patient had acute kidney injury with serum creatinine at 2.7 on admission and was back down to 1.8 at the time of discharge. She also had Klebsiella UTI and hematuria for which she was evaluated by urology. Patient received packed RBCs transfusion and iron infusion. Patient is readmitted now with complaints of blood in her urine as well as increased weakness. She is hypotensive with systolic blood pressure in the 80s. Hemoglobin was 6.9 g/dL. Patient has a Streeter catheter with has bloody urine. UA is suggestive of UTI. No fever noted. Serum creatinine was 2.4 and has decreased to 2.2 today. Review of Systems As per HPI Past Medical History Past Medical History: Atrial Fibrillation, Diabetes Mellitus, Hypertension, Osteoarthritis (OA) Additional Past Medical History / Comment(s): uterine cancer, incontinent of urine History of Any Multi-Drug Resistant Organisms: None Reported Past Surgical History: No Surgical Hx Reported Additional Past Surgical History / Comment(s): cataract & carpal-tunnel bilat. Past Anesthesia/Blood Transfusion Reactions: No Reported Reaction Past Psychological History: No Psychological Hx Reported Smoking Status: Never smoker Past Alcohol Use History: None Reported Past Drug Use History: None Reported - Past Family History Mother Family Medical History: Coronary Artery Disease (CAD), Diabetes Mellitus, Hypertension, Mitral Valve Prolapse (MVP) Father Family Medical History: Hypertension Additional Family Medical History / Comment(s): father hip surgery Medications and Allergies Home Medications Medication Instructions Recorded Confirmed Type Apixaban [Eliquis] 2.5 mg PO BID #60 tab 12/03/23 03/22/24 Rx Atorvastatin [Lipitor] 20 mg PO DAILY #30 tab 12/03/23 03/22/24 Rx Levothyroxine Sodium 25 mcg PO DAILY #30 tab 12/03/23 03/22/24 Rx Cetirizine HCl [Zyrtec] 10 mg PO DAILY PRN 03/04/24 03/22/24 History Clopidogrel [Plavix] 75 mg PO DAILY 03/04/24 03/22/24 History Empagliflozin [Jardiance] 10 mg PO HS 03/04/24 03/22/24 History Furosemide [Lasix] 40 mg PO HS 03/04/24 03/22/24 History Isosorbide Mononitrate ER [Imdur] 15 mg PO DAILY 03/04/24 03/22/24 History Midodrine [ProAmatine] 5 mg PO TID 03/04/24 03/22/24 History Semaglutide [Rybelsus] 7 mg PO DAILY 03/04/24 03/22/24 History Verapamil Sr [Isoptin Sr] 120 mg PO DAILY 03/04/24 03/22/24 History diphenhydrAMINE HCL [Benadryl] 50 mg PO DAILY PRN 03/04/24 03/22/24 History Acetaminophen Tab [Tylenol] 500 mg PO Q6HR PRN tab 03/16/24 03/22/24 Rx Aspirin 81 mg PO DAILY tab 03/16/24 03/22/24 Rx Benzonatate [Tessalon Perle] 200 mg PO AC-TID #60 capsule 03/16/24 03/22/24 Rx Cefdinir [Omnicef] 300 mg PO DAILY #7 cap 03/16/24 03/22/24 Rx Famotidine [Pepcid] 20 mg PO DAILY #30 tab 03/16/24 03/22/24 Rx Metoprolol Succinate (ER) [Toprol 100 mg PO HS #0 03/16/24 03/22/24 Rx XL] Sodium Bicarbonate Tab 650 mg PO DAILY #30 tab 03/16/24 03/22/24 Rx Albuterol Inhaler [Ventolin 2 puff INHALATION RT-Q6H PRN 03/22/24 03/22/24 History Inhaler] Allergies Allergy/AdvReac Type Severity Reaction Status Date / Time bacitracin Allergy Rash/Hives Verified 03/22/24 10:54 [From Neosporin ([id number])] ibuprofen Allergy Anaphylaxis Verified 03/22/24 10:54 & Rash all over neomycin Allergy Rash/Hives Verified 03/22/24 10:54 [From Neosporin ([id number])] polymyxin B Allergy Rash/Hives Verified 03/22/24 10:54 [From Neosporin ([id number])] Physical Exam Vitals: Vital Signs Temp Pulse Pulse Resp BP Pulse Ox 03/22/24 11:58 103 H 03/22/24 11:25 102 H 18 111/66 98 03/22/24 10:00 91 18 125/89 99 03/22/24 09:28 97.0 F L 89 18 117/71 03/22/24 09:27 89 18 117/71 99 03/22/24 06:43 97.7 F 101 H 18 109/58 03/22/24 06:23 97.6 F 90 18 104/65 03/22/24 06:00 97.2 F L 112 H 18 90/52 98 03/22/24 04:00 108 H 16 107/69 99 03/22/24 03:45 113 H 16 88/53 98 03/22/24 03:30 98 18 91/54 98 03/22/24 03:15 104 H 21 97/65 95 03/22/24 03:00 107 H 20 88/53 98 03/22/24 02:45 113 H 14 106/56 99 03/22/24 02:30 106 H 16 106/56 99 03/22/24 02:15 121 H 16 98/67 100 03/22/24 02:00 118 H 15 77/48 97 03/22/24 01:45 102 H 15 87/54 99 03/22/24 01:30 122 H 15 106/68 98 03/22/24 01:15 122 H 15 108/59 99 03/22/24 01:00 123 H 16 103/55 99 03/22/24 00:47 114 H 16 103/55 98 03/21/24 23:30 116 H 16 115/67 99 03/21/24 21:00 120 H 16 96/70 100 03/21/24 20:00 120 H 16 116/67 99 03/21/24 19:25 126 H 18 81/63 98 03/21/24 18:46 97.6 F 144 H 16 116/68 95 Intake and Output 03/21/24 03/22/24 03/22/24 22:59 06:59 14:59 Intake Total 0 280 Output Total 50 Balance 0 230 Intake: Blood Product 0 280 Rc Pheresis 2 As3 Unit 0 280 [id number] Output: Urine 50 Straight 50 Other: Voiding Method Indwelling Catheter Weight 77.111 kg Patient is awake, comfortable, no acute distress. Alert oriented x 3. Examination of the heart S1 and S2 Examination of the lungs bilateral breath sounds are heard Abdomen is soft nontender Examination of lower extremities shows no edema. [facility] [employer] exam grossly intact Results - Lab Results Most recent lab results Calcium 7.4 mg/dL (8.4-10.2) L 03/22/24 08:50 Magnesium 2.7 mg/dL (1.6-2.3) H 03/21/24 19:04 03/22/24 03:55 03/22/24 08:50 Assessment and Plan Assessment: 1. Acute kidney injury secondary to hypotension and sepsis, ATN currently improved slightly. Patient is maintained on IV fluids. 2. Chronic kidney disease and Stage IIIb. with baseline creatinine around 1.6 to 1.8 mg/dL. Patient had acute kidney injury about 2 weeks ago with peak creatinine at 2.7 and decreased to 1.8 on discharge on 03/16/2024 3. Recurrent hematuria , secondary to radiation cystitis status post recent cystoscopy and clot evacuation on 03/12/2024. Patient follows with urology. 4. Pyuria rule out UTI 5. Anemia secondary to hematuria, status post packed RBCs transfusion 6. Hypokalemia being replaced 7. A-fib with RVR maintained on amiodarone drip Plan: Continue with IV fluids continue with Streeter catheter Replace potassium Repeat labs in a.m. Continue with antibiotics Consult urology Thank you for the consultation. We will continue to follow the patient with you during her hospitalization.
[2024-03-22 15:12] LABS: Anisocytosis Slight; Basophils % (A) 0 %; Eosinophils % (A) 0 %; HCT 27.1 % (34.0-46.0); HGB 8.2 gm/dL (11.4-16.0); Hypochromasia Marked; Lymphocytes # (A) 1.2 k/uL (1.0-4.8); Lymphocytes % (A) 9 %; MCH 28.9 pg (25.0-35.0); MCHC 30.2 g/dL (31.0-37.0); MCV 95.7 fL (80.0-100.0); Macrocytosis Slight; Monocytes # (A) 0.8 k/uL (0-1.0); Monocytes % (A) 6 %; Neutrophils # (A) 11.3 k/uL (1.3-7.7); Neutrophils % (A) 84 %; Platelet Count 426 k/uL (150-450); Poikilocytosis Slight; RBC 2.84 m/uL (3.80-5.40); RDW 19.5 % (11.5-15.5); WBC 13.4 k/uL (3.8-10.6)
--- NOTE | 2024-03-22 17:29 | P.GSCN ---
History of Present Illness Consult date: 03/04/24 Reason for Consult: Gross hematuria Requesting physician: Francesco Gaston History of present illness: The patient is an 83-year-old white female hospitalized earlier this month with gross hematuria. She had a Klebsiella UTI at that time. The hematuria persisted, and on March 12 she underwent cystoscopy with evacuation of clot, bilateral retrograde pyelograms, and bilateral ureteroscopy by Dr. Larwence. She was found to have diffuse bladder oozing. She has previously undergone radiation therapy for uterine cancer. She presented back to the ER yesterday evening with weakness, diarrhea, and hematuria. A Streeter catheter was placed. CT scan showed no evidence of hydronephrosis. Densisties were seen within the bladder representing clots. Urinalysis obtained upon admission showed pyuria in addition to hematuria. Cultures were sent, and the patient is receiving Rocephin. Review of Systems - Cardiovascular Reports high blood pressure - Genitourinary Genitourinary: Reports as per HPI Past Medical History Past Medical History: Atrial Fibrillation, Diabetes Mellitus, Hypertension, Osteoarthritis (OA) Additional Past Medical History / Comment(s): uterine cancer, incontinent of urine History of Any Multi-Drug Resistant Organisms: None Reported Past Surgical History: No Surgical Hx Reported Additional Past Surgical History / Comment(s): cataract & carpal-tunnel bilat. Past Anesthesia/Blood Transfusion Reactions: No Reported Reaction Past Psychological History: No Psychological Hx Reported Smoking Status: Never smoker Past Alcohol Use History: None Reported Past Drug Use History: None Reported - Past Family History Mother Family Medical History: Coronary Artery Disease (CAD), Diabetes Mellitus, Hypertension, Mitral Valve Prolapse (MVP) Father Family Medical History: Hypertension Additional Family Medical History / Comment(s): father hip surgery Medications and Allergies Home Medications Medication Instructions Recorded Confirmed Type Apixaban [Eliquis] 2.5 mg PO BID #60 tab 12/03/23 03/22/24 Rx Atorvastatin [Lipitor] 20 mg PO DAILY #30 tab 12/03/23 03/22/24 Rx Levothyroxine Sodium 25 mcg PO DAILY #30 tab 12/03/23 03/22/24 Rx Cetirizine HCl [Zyrtec] 10 mg PO DAILY PRN 03/04/24 03/22/24 History Clopidogrel [Plavix] 75 mg PO DAILY 03/04/24 03/22/24 History Empagliflozin [Jardiance] 10 mg PO HS 03/04/24 03/22/24 History Furosemide [Lasix] 40 mg PO HS 03/04/24 03/22/24 History Isosorbide Mononitrate ER [Imdur] 15 mg PO DAILY 03/04/24 03/22/24 History Midodrine [ProAmatine] 5 mg PO TID 03/04/24 03/22/24 History Semaglutide [Rybelsus] 7 mg PO DAILY 03/04/24 03/22/24 History Verapamil Sr [Isoptin Sr] 120 mg PO DAILY 03/04/24 03/22/24 History diphenhydrAMINE HCL [Benadryl] 50 mg PO DAILY PRN 03/04/24 03/22/24 History Acetaminophen Tab [Tylenol] 500 mg PO Q6HR PRN tab 03/16/24 03/22/24 Rx Aspirin 81 mg PO DAILY tab 03/16/24 03/22/24 Rx Benzonatate [Tessalon Perle] 200 mg PO AC-TID #60 capsule 03/16/24 03/22/24 Rx Cefdinir [Omnicef] 300 mg PO DAILY #7 cap 03/16/24 03/22/24 Rx Famotidine [Pepcid] 20 mg PO DAILY #30 tab 03/16/24 03/22/24 Rx Metoprolol Succinate (ER) [Toprol 100 mg PO HS #0 03/16/24 03/22/24 Rx XL] Sodium Bicarbonate Tab 650 mg PO DAILY #30 tab 03/16/24 03/22/24 Rx Albuterol Inhaler [Ventolin 2 puff INHALATION RT-Q6H PRN 03/22/24 03/22/24 History Inhaler] Allergies Allergy/AdvReac Type Severity Reaction Status Date / Time bacitracin Allergy Rash/Hives Verified 03/22/24 10:54 [From Neosporin ([id number])] ibuprofen Allergy Anaphylaxis Verified 03/22/24 10:54 & Rash all over neomycin Allergy Rash/Hives Verified 03/22/24 10:54 [From Neosporin ([id number])] polymyxin B Allergy Rash/Hives Verified 03/22/24 10:54 [From Neosporin ([id number])] Surgical - Exam Vital Signs Temp Pulse Resp BP Pulse Ox 97.6 F 144 H 16 116/68 95 03/21/24 18:46 03/21/24 18:46 03/21/24 18:46 03/21/24 18:46 03/21/24 18:46 - General well developed, well nourished, no distress - Respiratory normal respiratory effort - Abdomen Abdomen: soft, non tender, no guarding, no rigid, no rebound - Genitourinary 16 [place] [address] catheter in place, draining blood-tinged urine. - Psychiatric oriented to time, oriented to person, oriented to place, speech is normal, memory intact Results - Labs 03/22/24 14:17 03/22/24 08:50 Abnormal Lab Results - Last 24 Hours (Table) 03/21/24 03/21/24 03/21/24 Range/Units 19:04 19:04 19:04 WBC 24.2 H (3.8-10.6) k/uL RBC 3.24 L (3.80-5.40) m/uL Hgb 9.3 L (11.4-16.0) gm/dL Hct 30.4 L (34.0-46.0) % MCHC 30.6 L (31.0-37.0) g/dL RDW 20.3 H (11.5-15.5) % Plt Count 642 H (150-450) k/uL Neutrophils # 22.8 H (1.3-7.7) k/uL Lymphocytes # 0.7 L (1.0-4.8) k/uL Sodium 134 L (137-145) mmol/L Potassium (3.5-5.1) mmol/L Carbon Dioxide 18 L (22-30) mmol/L BUN 49 H (7-17) mg/dL Creatinine 2.53 H (0.52-1.04) mg/dL Glucose 242 H (74-99) mg/dL POC Glucose (mg/dL) (70-110) mg/dL Plasma Lactic Acid Jose L 5.0 H* (0.7-2.0) mmol/L Calcium 8.1 L (8.4-10.2) mg/dL Magnesium 2.7 H (1.6-2.3) mg/dL Alkaline Phosphatase 133 H (38-126) U/L Total Protein 6.2 L (6.3-8.2) g/dL Albumin 3.1 L (3.5-5.0) g/dL Urine Appearance (Clear) Urine RBC (0-5) /hpf Urine WBC (0-5) /hpf Urine WBC Clumps (None) /hpf Urine Bacteria (None) /hpf Urine Mucus (None) /hpf Crossmatch 03/21/24 03/21/24 03/22/24 Range/Units 20:10 22:38 00:26 WBC (3.8-10.6) k/uL RBC (3.80-5.40) m/uL Hgb (11.4-16.0) gm/dL Hct (34.0-46.0) % MCHC (31.0-37.0) g/dL RDW (11.5-15.5) % Plt Count (150-450) k/uL Neutrophils # (1.3-7.7) k/uL Lymphocytes # (1.0-4.8) k/uL Sodium (137-145) mmol/L Potassium (3.5-5.1) mmol/L Carbon Dioxide (22-30) mmol/L BUN (7-17) mg/dL Creatinine (0.52-1.04) mg/dL Glucose (74-99) mg/dL POC Glucose (mg/dL) (70-110) mg/dL Plasma Lactic Acid Jose L 2.6 H* (0.7-2.0) mmol/L Calcium (8.4-10.2) mg/dL Magnesium (1.6-2.3) mg/dL Alkaline Phosphatase (38-126) U/L Total Protein (6.3-8.2) g/dL Albumin (3.5-5.0) g/dL Urine Appearance Bloody H (Clear) Urine RBC >182 H (0-5) /hpf Urine WBC >182 H (0-5) /hpf Urine WBC Clumps (None) /hpf Urine Bacteria Many H (None) /hpf Urine Mucus (None) /hpf Crossmatch See Detail 03/22/24 03/22/24 03/22/24 Range/Units 02:15 03:55 03:55 WBC 15.8 H 13.7 H (3.8-10.6) k/uL RBC 2.55 L 2.43 L (3.80-5.40) m/uL Hgb 7.3 L D 6.9 L* (11.4-16.0) gm/dL Hct 23.7 L 23.0 L (34.0-46.0) % MCHC 30.9 L 29.8 L (31.0-37.0) g/dL RDW 20.5 H 20.3 H (11.5-15.5) % Plt Count 494 H (150-450) k/uL Neutrophils # 14.4 H 12.1 H (1.3-7.7) k/uL Lymphocytes # 0.9 L (1.0-4.8) k/uL Sodium 134 L (137-145) mmol/L Potassium 3.3 L (3.5-5.1) mmol/L Carbon Dioxide (22-30) mmol/L BUN 48 H (7-17) mg/dL Creatinine 2.41 H (0.52-1.04) mg/dL Glucose 113 H (74-99) mg/dL POC Glucose (mg/dL) (70-110) mg/dL Plasma Lactic Acid Jose L (0.7-2.0) mmol/L Calcium 7.4 L (8.4-10.2) mg/dL Magnesium (1.6-2.3) mg/dL Alkaline Phosphatase (38-126) U/L Total Protein (6.3-8.2) g/dL Albumin (3.5-5.0) g/dL Urine Appearance (Clear) Urine RBC (0-5) /hpf Urine WBC (0-5) /hpf Urine WBC Clumps (None) /hpf Urine Bacteria (None) /hpf Urine Mucus (None) /hpf Crossmatch 03/22/24 03/22/24 03/22/24 Range/Units 08:49 08:50 09:41 WBC (3.8-10.6) k/uL RBC (3.80-5.40) m/uL Hgb (11.4-16.0) gm/dL Hct (34.0-46.0) % MCHC (31.0-37.0) g/dL RDW (11.5-15.5) % Plt Count (150-450) k/uL Neutrophils # (1.3-7.7) k/uL Lymphocytes # (1.0-4.8) k/uL Sodium 136 L (137-145) mmol/L Potassium 3.3 L (3.5-5.1) mmol/L Carbon Dioxide (22-30) mmol/L BUN 48 H (7-17) mg/dL Creatinine 2.22 H (0.52-1.04) mg/dL Glucose (74-99) mg/dL POC Glucose (mg/dL) 126 H (70-110) mg/dL Plasma Lactic Acid Jose L (0.7-2.0) mmol/L Calcium 7.4 L (8.4-10.2) mg/dL Magnesium (1.6-2.3) mg/dL Alkaline Phosphatase (38-126) U/L Total Protein 4.9 L (6.3-8.2) g/dL Albumin 2.3 L (3.5-5.0) g/dL Urine Appearance Turbid H (Clear) Urine RBC >182 H (0-5) /hpf Urine WBC >182 H (0-5) /hpf Urine WBC Clumps Many H (None) /hpf Urine Bacteria Moderate H (None) /hpf Urine Mucus Few H (None) /hpf Crossmatch 03/22/24 03/22/24 Range/Units 12:33 14:17 WBC 13.4 H (3.8-10.6) k/uL RBC 2.84 L (3.80-5.40) m/uL Hgb 8.2 L (11.4-16.0) gm/dL Hct 27.1 L (34.0-46.0) % MCHC 30.2 L (31.0-37.0) g/dL RDW 19.5 H (11.5-15.5) % Plt Count (150-450) k/uL Neutrophils # 11.3 H (1.3-7.7) k/uL Lymphocytes # (1.0-4.8) k/uL Sodium (137-145) mmol/L Potassium (3.5-5.1) mmol/L Carbon Dioxide (22-30) mmol/L BUN (7-17) mg/dL Creatinine (0.52-1.04) mg/dL Glucose (74-99) mg/dL POC Glucose (mg/dL) 150 H (70-110) mg/dL Plasma Lactic Acid Jose L (0.7-2.0) mmol/L Calcium (8.4-10.2) mg/dL Magnesium (1.6-2.3) mg/dL Alkaline Phosphatase (38-126) U/L Total Protein (6.3-8.2) g/dL Albumin (3.5-5.0) g/dL Urine Appearance (Clear) Urine RBC (0-5) /hpf Urine WBC (0-5) /hpf Urine WBC Clumps (None) /hpf Urine Bacteria (None) /hpf Urine Mucus (None) /hpf Crossmatch Diabetes panel 03/21/24 03/22/24 03/22/24 Range/Units 19:04 03:55 08:50 Sodium 134 L 134 L 136 L (137-145) mmol/L Potassium 4.3 3.3 L 3.3 L (3.5-5.1) mmol/L Chloride 102 105 106 (98-107) mmol/L Carbon Dioxide 18 L 22 22 (22-30) mmol/L BUN 49 H 48 H 48 H (7-17) mg/dL Creatinine 2.53 H 2.41 H 2.22 H (0.52-1.04) mg/dL Glucose 242 H 113 H 97 (74-99) mg/dL Calcium 8.1 L 7.4 L 7.4 L (8.4-10.2) mg/dL AST 28 22 (14-36) U/L ALT 17 12 (4-34) U/L Alkaline Phosphatase 133 H 83 (38-126) U/L Total Protein 6.2 L 4.9 L (6.3-8.2) g/dL Albumin 3.1 L 2.3 L (3.5-5.0) g/dL Calcium panel 03/21/24 03/22/24 03/22/24 Range/Units 19:04 03:55 08:50 Calcium 8.1 L 7.4 L 7.4 L (8.4-10.2) mg/dL Albumin 3.1 L 2.3 L (3.5-5.0) g/dL Pituitary panel 03/21/24 03/22/24 03/22/24 Range/Units 19:04 03:55 08:50 Sodium 134 L 134 L 136 L (137-145) mmol/L Potassium 4.3 3.3 L 3.3 L (3.5-5.1) mmol/L Chloride 102 105 106 (98-107) mmol/L Carbon Dioxide 18 L 22 22 (22-30) mmol/L BUN 49 H 48 H 48 H (7-17) mg/dL Creatinine 2.53 H 2.41 H 2.22 H (0.52-1.04) mg/dL Glucose 242 H 113 H 97 (74-99) mg/dL Calcium 8.1 L 7.4 L 7.4 L (8.4-10.2) mg/dL Adrenal panel 03/21/24 03/22/24 03/22/24 Range/Units 19:04 03:55 08:50 Sodium 134 L 134 L 136 L (137-145) mmol/L Potassium 4.3 3.3 L 3.3 L (3.5-5.1) mmol/L Chloride 102 105 106 (98-107) mmol/L Carbon Dioxide 18 L 22 22 (22-30) mmol/L BUN 49 H 48 H 48 H (7-17) mg/dL Creatinine 2.53 H 2.41 H 2.22 H (0.52-1.04) mg/dL Glucose 242 H 113 H 97 (74-99) mg/dL Calcium 8.1 L 7.4 L 7.4 L (8.4-10.2) mg/dL Total Bilirubin 1.1 0.5 (0.2-1.3) mg/dL AST 28 22 (14-36) U/L ALT 17 12 (4-34) U/L Alkaline Phosphatase 133 H 83 (38-126) U/L Total Protein 6.2 L 4.9 L (6.3-8.2) g/dL Albumin 3.1 L 2.3 L (3.5-5.0) g/dL Assessment and Plan (1) Gross hematuria Current Visit: Yes Status: Acute Code(s): R31.0 - GROSS HEMATURIA SNOMED Code(s): 495253405 (2) UTI (urinary tract infection) Current Visit: Yes Status: Acute Code(s): N39.0 - URINARY TRACT INFECTION, SITE NOT SPECIFIED SNOMED Code(s): 75364157 Plan: 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 Using a piston syringe, I manually irrigated some small clots from the bladder. The catheter shall remain in place. If the catheter becomes occluded and cannot be irrigated, it should be exchanged for a a 20 [place] Streeter catheter to allow clots to be irrigated from the bladder. I am hopeful that she will not require a return to the operating room for cystoscopy with evacuation of clot. Time with Patient: Greater than 30
[2024-03-22] MEDS ORDERED: ACETAMINOPHEN TAB 500 MG TAB PO PRN (17:30)
[2024-03-22] MEDS ORDERED: LORATADINE 10 MG TAB PO PRN (17:30)
[2024-03-22] MEDS ORDERED: ALBUTEROL NEBULIZED 2.5 MG/3 ML INHALATION PRN (17:30)
[2024-03-22] MEDS: BENZONATATE 100 MG CAP PO SCH (18:49)
[2024-03-22 20:22] LABS: Glucose,Whole Blood 88 mg/dL (70-110)
[2024-03-22] MEDS: DAPAGLIFLOZIN PROPANEDIOL 5 MG TABLET PO SCH (20:24)
[2024-03-22 21:29] LABS: Anisocytosis Slight; Basophils % (A) 0 %; Eosinophils # (A) 0.1 k/uL (0-0.7); Eosinophils % (A) 1 %; Hypochromasia Marked; Lymphocytes # (A) 1.1 k/uL (1.0-4.8); Lymphocytes % (A) 11 %; MCH 30.7 pg (25.0-35.0); MCV 96.1 fL (80.0-100.0); Macrocytosis Slight; Mean Platelet Volume 7.6; Monocytes # (A) 0.6 k/uL (0-1.0); Monocytes % (A) 6 %; Neutrophils # (A) 8.5 k/uL (1.3-7.7); Neutrophils % (A) 82 %; Platelet Count 376 k/uL (150-450); Poikilocytosis Slight; RBC 2.61 m/uL (3.80-5.40); RDW 19.7 % (11.5-15.5); WBC 10.3 k/uL (3.8-10.6)
[2024-03-23 06:12] LABS: Glucose,Whole Blood 87 mg/dL (70-110)
--- NOTE | 2024-03-23 08:24 | P.PN ---
Subjective Progress Note Date: 03/23/24 Principal diagnosis: Hematuria with clots Patient has no complaints at this time. The Streeter catheter is draining pink- tinged urine without clots. Objective - Vital Signs Vital signs: Vital Signs Temp 98.1 F 03/23/24 03:12 Pulse 80 03/23/24 03:12 Resp 16 03/23/24 03:12 BP 109/56 03/23/24 03:12 Pulse Ox 98 03/23/24 03:12 FiO2 Intake & Output 03/22/24 03/23/24 03/23/24 18:59 06:59 18:59 Intake Total 280 231.949 Output Total 400 1000 Balance -120 -768.051 Weight 67.585 kg Intake: Intake, IV Titration 231.949 Amount Amiodarone 450 mg In 231.949 Dextrose 5% in Water 250 ml @ 0.5 MG/MIN 16.667 mls/hr IV .Q15H [facility] Rx#: [id number] Blood Product 280 Rc Pheresis 2 As3 Unit 280 [id number] Output: Urine 400 1000 Straight 400 Other: Voiding Method Indwelling Catheter Indwelling Catheter - Constitutional General appearance: Present: cooperative, no acute distress - Psychiatric Psychiatric: Present: A&O x's 3 - Labs CBC & Chem 7: 03/22/24 21:06 03/22/24 08:50 Labs: Abnormal Lab Results - Last 24 Hours (Table) 03/21/24 03/22/24 03/22/24 Range/Units 20:10 08:49 08:50 WBC (3.8-10.6) k/uL RBC (3.80-5.40) m/uL Hgb (11.4-16.0) gm/dL Hct (34.0-46.0) % MCHC (31.0-37.0) g/dL RDW (11.5-15.5) % Neutrophils # (1.3-7.7) k/uL Sodium 136 L (137-145) mmol/L Potassium 3.3 L (3.5-5.1) mmol/L BUN 48 H (7-17) mg/dL Creatinine 2.22 H (0.52-1.04) mg/dL POC Glucose (mg/dL) 126 H (70-110) mg/dL Calcium 7.4 L (8.4-10.2) mg/dL Total Protein 4.9 L (6.3-8.2) g/dL Albumin 2.3 L (3.5-5.0) g/dL Urine Appearance (Clear) Urine RBC (0-5) /hpf Urine WBC (0-5) /hpf Urine WBC Clumps (None) /hpf Urine Bacteria (None) /hpf Urine Mucus (None) /hpf Crossmatch See Detail 03/22/24 03/22/24 03/22/24 Range/Units 09:41 12:33 14:17 WBC 13.4 H (3.8-10.6) k/uL RBC 2.84 L (3.80-5.40) m/uL Hgb 8.2 L (11.4-16.0) gm/dL Hct 27.1 L (34.0-46.0) % MCHC 30.2 L (31.0-37.0) g/dL RDW 19.5 H (11.5-15.5) % Neutrophils # 11.3 H (1.3-7.7) k/uL Sodium (137-145) mmol/L Potassium (3.5-5.1) mmol/L BUN (7-17) mg/dL Creatinine (0.52-1.04) mg/dL POC Glucose (mg/dL) 150 H (70-110) mg/dL Calcium (8.4-10.2) mg/dL Total Protein (6.3-8.2) g/dL Albumin (3.5-5.0) g/dL Urine Appearance Turbid H (Clear) Urine RBC >182 H (0-5) /hpf Urine WBC >182 H (0-5) /hpf Urine WBC Clumps Many H (None) /hpf Urine Bacteria Moderate H (None) /hpf Urine Mucus Few H (None) /hpf Crossmatch 03/22/24 Range/Units 21:06 WBC (3.8-10.6) k/uL RBC 2.61 L (3.80-5.40) m/uL Hgb 8.0 L (11.4-16.0) gm/dL Hct 25.0 L (34.0-46.0) % MCHC (31.0-37.0) g/dL RDW 19.7 H (11.5-15.5) % Neutrophils # 8.5 H (1.3-7.7) k/uL Sodium (137-145) mmol/L Potassium (3.5-5.1) mmol/L BUN (7-17) mg/dL Creatinine (0.52-1.04) mg/dL POC Glucose (mg/dL) (70-110) mg/dL Calcium (8.4-10.2) mg/dL Total Protein (6.3-8.2) g/dL Albumin (3.5-5.0) g/dL Urine Appearance (Clear) Urine RBC (0-5) /hpf Urine WBC (0-5) /hpf Urine WBC Clumps (None) /hpf Urine Bacteria (None) /hpf Urine Mucus (None) /hpf Crossmatch Assessment and Plan Assessment: 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 (1) Gross hematuria Current Visit: Yes Status: Acute Code(s): R31.0 - GROSS HEMATURIA SNOMED Code(s): 298447917 (2) UTI (urinary tract infection) Current Visit: Yes Status: Acute Code(s): N39.0 - URINARY TRACT INFECTION, SITE NOT SPECIFIED SNOMED Code(s): 76972086 Plan: - Continue Streeter catheter, irrigate as needed. - Continue Rocephin.
[2024-03-23 09:09] LABS: Anisocytosis Slight; HCT 23.1 % (34.0-46.0); HGB 7.5 gm/dL (11.4-16.0); Hypochromasia Marked; MCH 31.2 pg (25.0-35.0); MCHC 32.3 g/dL (31.0-37.0); MCV 96.6 fL (80.0-100.0); Macrocytosis Slight; Mean Platelet Volume 7.6; Platelet Count 330 k/uL (150-450); Poikilocytosis Slight; RBC 2.39 m/uL (3.80-5.40); RDW 19.5 % (11.5-15.5); WBC 5.9 k/uL (3.8-10.6)
[2024-03-23 09:24] LABS: ALT 12 U/L (4-34); AST 22 U/L (14-36); African American GFR (CKD) 26 (>60 ml/min/1.73 sqM); Albumin 2.2 g/dL (3.5-5.0); Alkaline Phosphatase 84 U/L (38-126); Anion Gap 3 mmol/L; Blood Urea Nitrogen 39 mg/dL (7-17); Calcium 7.3 mg/dL (8.4-10.2); Carbon Dioxide 25 mmol/L (22-30); Chloride 109 mmol/L (98-107); Glucose 74 mg/dL (74-99); Non-African American GFR(CKD) 22 (>60 ml/min/1.73 sqM); Potassium 3.1 mmol/L (3.5-5.1); Sodium 137 mmol/L (137-145); Total Bilirubin 0.4 mg/dL (0.2-1.3); Total Protein 4.8 g/dL (6.3-8.2)
[2024-03-23] MEDS: ATORVASTATIN 20 MG TAB PO SCH (09:35)
[2024-03-23] MEDS: VERAPAMIL SR 120 MG TABLET.ER PO SCH (09:35)
[2024-03-23] MEDS: SODIUM BICARBONATE TAB 650 MG TAB PO SCH (09:35)
[2024-03-23] MEDS: ISOSORBIDE MONONITRATE ER 15 MG TAB PO SCH (09:36)
[2024-03-23] MEDS: FAMOTIDINE 20 MG TAB PO SCH (09:36)
[2024-03-23 11:13] LABS: Glucose,Whole Blood 105 mg/dL (70-110)
[2024-03-23] MEDS: POTASSIUM CHLORIDE ER 20 MEQ TAB.ER PO SCH (11:53)
[2024-03-23 15:40] LABS: Anisocytosis Slight; Basophils % (A) 0 %; Eosinophils # (A) 0.1 k/uL (0-0.7); Eosinophils % (A) 1 %; HCT 24.7 % (34.0-46.0); HGB 7.7 gm/dL (11.4-16.0); Hypochromasia Marked; Lymphocytes % (A) 13 %; MCH 29.8 pg (25.0-35.0); MCHC 31.1 g/dL (31.0-37.0); MCV 95.7 fL (80.0-100.0); Macrocytosis Slight; Mean Platelet Volume 8.2; Monocytes # (A) 0.4 k/uL (0-1.0); Monocytes % (A) 5 %; Neutrophils # (A) 6.5 k/uL (1.3-7.7); Neutrophils % (A) 81 %; Platelet Count 414 k/uL (150-450); Poikilocytosis Slight; RBC 2.58 m/uL (3.80-5.40); RDW 19.5 % (11.5-15.5); WBC 8.1 k/uL (3.8-10.6)
[2024-03-23] MEDS: SODIUM CHLORIDE 0.9% 1,000 ML IV ONE (15:59)
--- NOTE | 2024-03-23 16:03 | P.CNPUL ---
History of Present Illness Consult date: 03/23/24 Requesting physician: Francesco Gaston Reason for consult: other (Hypotension) Chief complaint: Generalized weakness History of present illness: This is a 83-year-old female patient with a history of atrial fibrillation anticoagulated with Eliquis, valvular heart disease, coronary disease with previous stent placement, diabetes mellitus, hypertension, osteoarthritis, uterine cancer, hematuria being worked up by urology. She was recently here from March 04 through March 16, 2024. She presented back to the emergency room on 03/21/2024 with complaints of progressive weakness fatigue and near syncopal episode. She was found to be in atrial fibrillation with a rapid ventricular response. We are consulted today for hypotension and possible transfer to the intensive care unit. She is seen on the selective care unit. She is currently awake and alert in no acute distress. She is maintaining good O2 saturations in the 90s on room air. Her white count is 8.1. Hemoglobin 7.7. Platelets 414. Sodium 137. Potassium 3.4. Bicarb 25. BUN 39. Creatinine 2.04. Glucose 105. proBNP was 22,900. Chest x-ray revealed mild congestive heart failure improved compared to previous on 03/15/2024. CT scan of the abdomen pelvis revealed abnormal density in the dependent portion of the urinary bladder consistent with blood clots or neoplasm. Large amount of stool within the rectum but no bowel obstruction. Sludge in the dependent portion of the gallbladder without gallbladder wall thickening or pericholecystic fluid. She continues with blood- tinged urine. Urology is on the case. They feel may have radiation cystitis and urinary tract infection. She received fluid resuscitation and is currently on normal saline at 130 MLS per hour. Her midodrine was increased to 5 mg 3 times a day. Denies any dizziness, no chest pain or palpitations. Review of Systems REVIEW OF SYSTEMS: CONSTITUTIONAL: Positive for progressive generalized weakness. Denies any recent significant weight loss or weight gain. EYES: Denies change in vision. EARS, NOSE, MOUTH, THROAT: Denies headaches, denies sore throat. CARDIOVASCULAR: Denies chest pain, palpitations or syncopal episodes. RESPIRATORY: Denies shortness of breath, cough, congestion or hemoptysis. GASTROINTESTINAL: Denies change in appetite, denies abdominal pain GENITOURINARY: Positive for hematuria, denies infections. MUSKULOSKELETAL: Denies pain, denies swelling. INTEGUMENTARY: Denies rash, denies eczema. NEUROLOGICAL: Denies recent memory loss, no recent seizure activity. PSYCHIATRIC: Denies anxiety, denies depression. HEMATOLOGIC/LYMPHATIC: Denies anemia, denies enlarged lymph nodes. Past Medical History Past Medical History: Atrial Fibrillation, Diabetes Mellitus, Hypertension, Osteoarthritis (OA) Additional Past Medical History / Comment(s): uterine cancer, incontinent of urine History of Any Multi-Drug Resistant Organisms: None Reported Past Surgical History: No Surgical Hx Reported Additional Past Surgical History / Comment(s): cataract & carpal-tunnel bilat. Past Anesthesia/Blood Transfusion Reactions: No Reported Reaction Past Psychological History: No Psychological Hx Reported Smoking Status: Never smoker Past Alcohol Use History: None Reported Past Drug Use History: None Reported - Past Family History Mother Family Medical History: Coronary Artery Disease (CAD), Diabetes Mellitus, Hypertension, Mitral Valve Prolapse (MVP) Father Family Medical History: Hypertension Additional Family Medical History / Comment(s): father hip surgery Medications and Allergies Home Medications Medication Instructions Recorded Confirmed Type Apixaban [Eliquis] 2.5 mg PO BID #60 tab 12/03/23 03/22/24 Rx Atorvastatin [Lipitor] 20 mg PO DAILY #30 tab 12/03/23 03/22/24 Rx Levothyroxine Sodium 25 mcg PO DAILY #30 tab 12/03/23 03/22/24 Rx Cetirizine HCl [Zyrtec] 10 mg PO DAILY PRN 03/04/24 03/22/24 History Clopidogrel [Plavix] 75 mg PO DAILY 03/04/24 03/22/24 History Empagliflozin [Jardiance] 10 mg PO HS 03/04/24 03/22/24 History Furosemide [Lasix] 40 mg PO HS 03/04/24 03/22/24 History Isosorbide Mononitrate ER [Imdur] 15 mg PO DAILY 03/04/24 03/22/24 History Midodrine [ProAmatine] 5 mg PO TID 03/04/24 03/22/24 History Semaglutide [Rybelsus] 7 mg PO DAILY 03/04/24 03/22/24 History Verapamil Sr [Isoptin Sr] 120 mg PO DAILY 03/04/24 03/22/24 History diphenhydrAMINE HCL [Benadryl] 50 mg PO DAILY PRN 03/04/24 03/22/24 History Acetaminophen Tab [Tylenol] 500 mg PO Q6HR PRN tab 03/16/24 03/22/24 Rx Aspirin 81 mg PO DAILY tab 03/16/24 03/22/24 Rx Benzonatate [Tessalon Perle] 200 mg PO AC-TID #60 capsule 03/16/24 03/22/24 Rx Cefdinir [Omnicef] 300 mg PO DAILY #7 cap 03/16/24 03/22/24 Rx Famotidine [Pepcid] 20 mg PO DAILY #30 tab 03/16/24 03/22/24 Rx Metoprolol Succinate (ER) [Toprol 100 mg PO HS #0 03/16/24 03/22/24 Rx XL] Sodium Bicarbonate Tab 650 mg PO DAILY #30 tab 03/16/24 03/22/24 Rx Albuterol Inhaler [Ventolin 2 puff INHALATION RT-Q6H PRN 03/22/24 03/22/24 History Inhaler] Allergies Allergy/AdvReac Type Severity Reaction Status Date / Time bacitracin Allergy Rash/Hives Verified 03/22/24 10:54 [From Neosporin ([id number])] ibuprofen Allergy Anaphylaxis Verified 03/22/24 10:54 & Rash all over neomycin Allergy Rash/Hives Verified 03/22/24 10:54 [From Neosporin ([id number])] polymyxin B Allergy Rash/Hives Verified 03/22/24 10:54 [From Neosporin ([id number])] Physical Exam Vitals: Vital Signs Temp Pulse Pulse Resp BP BP Pulse Ox 03/23/24 14:00 67 16 03/23/24 12:00 97.8 F 67 16 74/45 97 03/23/24 08:00 97.9 F 80 16 95/60 100 03/23/24 03:12 98.1 F 80 16 109/56 98 03/22/24 23:17 98.4 F 70 18 97/57 96 03/22/24 20:00 18 03/22/24 19:49 97.5 F L 65 18 122/75 92 L 03/22/24 18:16 97.8 F 79 16 122/68 100 03/22/24 17:16 97.6 F 82 18 115/54 98 03/22/24 16:24 80 18 92/68 95 Intake and Output 03/23/24 03/23/24 03/23/24 06:59 14:59 22:59 Intake Total 231.949 650 Output Total 1000 450 Balance -768.051 200 Intake: Intake, IV Titration 231.949 Amount Amiodarone 450 mg In 231.949 Dextrose 5% in Water 250 ml @ 0.5 MG/MIN 16.667 mls/hr IV .Q15H [facility] Rx#: [id number] Oral 650 Output: Urine 1000 450 Other: Voiding Method Indwelling Catheter Indwelling Catheter Weight 67.585 kg GENERAL EXAM: Alert, frail, weak 83-year-old female, on room air, fairly comfortable in no apparent distress. HEAD: Normocephalic. EYES: Normal reaction of pupils, equal size. NOSE: Clear with pink turbinates. THROAT: No erythema or exudates. NECK: No masses, no JVD. CHEST: No chest wall deformity. LUNGS: Equal air entry with faint crackles in the bilateral bases. CVS: S1 and S2 normal with no audible murmur, regular rhythm. ABDOMEN: No hepatosplenomegaly, normal bowel sounds, no guarding or rigidity. SPINE: No scoliosis or deformity SKIN: No rashes CENTRAL NERVOUS SYSTEM: No focal deficits, tone is normal in all 4 extremities. EXTREMITIES: There is no peripheral edema. No clubbing, no cyanosis. Peripheral pulses are intact. Results - Laboratory Findings CBC and BMP: 03/23/24 14:41 03/23/24 14:41 PT/INR, D-dimer PT 11.8 sec (10.0-12.5) 03/21/24 19:04 INR 1.1 (<1.2) 03/21/24 19:04 Abnormal lab findings: Abnormal Labs 03/21/24 03/21/24 03/21/24 19:04 19:04 19:04 WBC 24.2 H RBC 3.24 L Hgb 9.3 L Hct 30.4 L MCHC 30.6 L RDW 20.3 H Plt Count 642 H Neutrophils # 22.8 H Lymphocytes # 0.7 L Sodium 134 L Potassium Chloride Carbon Dioxide 18 L BUN 49 H Creatinine 2.53 H Glucose 242 H POC Glucose (mg/dL) Plasma Lactic Acid Jose L 5.0 H* Calcium 8.1 L Magnesium 2.7 H Alkaline Phosphatase 133 H Total Protein 6.2 L Albumin 3.1 L Urine Appearance Urine RBC Urine WBC Urine WBC Clumps Urine Bacteria Urine Mucus Crossmatch 03/21/24 03/21/24 03/22/24 20:10 22:38 00:26 WBC RBC Hgb Hct MCHC RDW Plt Count Neutrophils # Lymphocytes # Sodium Potassium Chloride Carbon Dioxide BUN Creatinine Glucose POC Glucose (mg/dL) Plasma Lactic Acid Jose L 2.6 H* Calcium Magnesium Alkaline Phosphatase Total Protein Albumin Urine Appearance Bloody H Urine RBC >182 H Urine WBC >182 H Urine WBC Clumps Urine Bacteria Many H Urine Mucus Crossmatch See Detail 03/22/24 03/22/24 03/22/24 02:15 03:55 03:55 WBC 15.8 H 13.7 H RBC 2.55 L 2.43 L Hgb 7.3 L D 6.9 L* Hct 23.7 L 23.0 L MCHC 30.9 L 29.8 L RDW 20.5 H 20.3 H Plt Count 494 H Neutrophils # 14.4 H 12.1 H Lymphocytes # 0.9 L Sodium 134 L Potassium 3.3 L Chloride Carbon Dioxide BUN 48 H Creatinine 2.41 H Glucose 113 H POC Glucose (mg/dL) Plasma Lactic Acid Jose L Calcium 7.4 L Magnesium Alkaline Phosphatase Total Protein Albumin Urine Appearance Urine RBC Urine WBC Urine WBC Clumps Urine Bacteria Urine Mucus Crossmatch 03/22/24 03/22/24 03/22/24 08:49 08:50 09:41 WBC RBC Hgb Hct MCHC RDW Plt Count Neutrophils # Lymphocytes # Sodium 136 L Potassium 3.3 L Chloride Carbon Dioxide BUN 48 H Creatinine 2.22 H Glucose POC Glucose (mg/dL) 126 H Plasma Lactic Acid Jose L Calcium 7.4 L Magnesium Alkaline Phosphatase Total Protein 4.9 L Albumin 2.3 L Urine Appearance Turbid H Urine RBC >182 H Urine WBC >182 H Urine WBC Clumps Many H Urine Bacteria Moderate H Urine Mucus Few H Crossmatch 03/22/24 03/22/24 03/22/24 12:33 14:17 21:06 WBC 13.4 H RBC 2.84 L 2.61 L Hgb 8.2 L 8.0 L Hct 27.1 L 25.0 L MCHC 30.2 L RDW 19.5 H 19.7 H Plt Count Neutrophils # 11.3 H 8.5 H Lymphocytes # Sodium Potassium Chloride Carbon Dioxide BUN Creatinine Glucose POC Glucose (mg/dL) 150 H Plasma Lactic Acid Jose L Calcium Magnesium Alkaline Phosphatase Total Protein Albumin Urine Appearance Urine RBC Urine WBC Urine WBC Clumps Urine Bacteria Urine Mucus Crossmatch 03/23/24 03/23/24 03/23/24 08:29 08:29 14:41 WBC RBC 2.39 L Hgb 7.5 L Hct 23.1 L MCHC RDW 19.5 H Plt Count Neutrophils # Lymphocytes # Sodium Potassium 3.1 L 3.4 L Chloride 109 H Carbon Dioxide BUN 39 H Creatinine 2.04 H Glucose POC Glucose (mg/dL) Plasma Lactic Acid Jose L Calcium 7.3 L Magnesium Alkaline Phosphatase Total Protein 4.8 L Albumin 2.2 L Urine Appearance Urine RBC Urine WBC Urine WBC Clumps Urine Bacteria Urine Mucus Crossmatch 03/23/24 14:41 WBC RBC 2.58 L Hgb 7.7 L Hct 24.7 L MCHC RDW 19.5 H Plt Count Neutrophils # Lymphocytes # Sodium Potassium Chloride Carbon Dioxide BUN Creatinine Glucose POC Glucose (mg/dL) Plasma Lactic Acid Jose L Calcium Magnesium Alkaline Phosphatase Total Protein Albumin Urine Appearance Urine RBC Urine WBC Urine WBC Clumps Urine Bacteria Urine Mucus Crossmatch - Diagnostic Findings Chest x-ray: image reviewed Assessment and Plan Assessment: Progressive weakness and hypotension secondary to atrial fibrillation with rapid ventricular response, severe hematuria, acute GI bleed Atrial fibrillation with a rapid ventricular response, anticoagulated with Eliquis Acute GI bleed with tarry stools, received 1 unit of packed red blood cells this admission, current hemoglobin of 7.7 Acute exacerbation of chronic systolic congestive heart failure Acute on chronic kidney disease Chronic microcytic, hypochromic anemia, received iron supplements Coronary artery disease, with recent PCI/stent to the LAD performed 10/28/2023 History of mild to moderate mitral regurgitation, preserved LV function History of diabetes mellitus, type II History of hypothyroidism Chronic kidney disease stage III History of hyperlipidemia Remote history of uterine CA Poor overall functional performance based on the above-mentioned multiple comorbidities Recent discharge from the hospital to home as the patient refused subacute rehabilitation Plan: The patient was seen and evaluated Chest x-ray, CT scan of the abdomen, labs and medications reviewed Give additional fluid resuscitation Increase midodrine to 3 times daily Hold blood pressure medications No need for transfer to ICU at this point Remains stable, alert and on room air Social work to reevaluate for possible subacute rehabilitation at discharge We will continue to follow closely and make further recommendations based on her clinical status I have personally seen and examined the patient, performed the documentation and the assessment and plan as written. Number of minutes spent on the visit: 20.
--- NOTE | 2024-03-23 16:21 | P.PN ---
Subjective Patient is seen for follow-up for acute kidney injury. Currently maintained on IV fluids. Renal function has improved. Patient has had bladder irrigation with improvement in hematuria. Serum creatinine decreased to 2.0 mg/dL. No significant complaints. Objective - Vital Signs Vital signs: Vital Signs Temp 97.8 F 03/23/24 12:00 Pulse 67 03/23/24 14:00 Resp 16 03/23/24 14:00 BP 74/45 03/23/24 12:00 Pulse Ox 97 03/23/24 12:00 FiO2 Intake & Output 03/22/24 03/23/24 03/23/24 18:59 06:59 18:59 Intake Total 280 231.949 895.838 Output Total 400 1000 450 Balance -120 -768.051 445.838 Weight 67.585 kg Intake: Intake, IV Titration 231.949 245.838 Amount Amiodarone 450 mg In 231.949 245.838 Dextrose 5% in Water 250 ml @ 0.5 MG/MIN 16.667 mls/hr IV .Q15H [facility] Rx#: [id number] Oral 650 Blood Product 280 Rc Pheresis 2 As3 Unit 280 [id number] Output: Urine 400 1000 450 Straight 400 Other: Voiding Method Indwelling Catheter Indwelling Catheter Indwelling Catheter - Exam Patient is awake, comfortable, no acute distress. Alert oriented x 3. Examination of the heart S1 and S2 Examination of the lungs bilateral breath sounds are heard Abdomen is soft nontender Examination of lower extremities shows no edema. MANAGER DEMAND exam grossly intact - Labs CBC & Chem 7: 03/23/24 14:41 03/23/24 14:41 Labs: Abnormal Lab Results - Last 24 Hours (Table) 03/22/24 03/23/24 03/23/24 Range/Units 21:06 08:29 08:29 RBC 2.61 L 2.39 L (3.80-5.40) m/uL Hgb 8.0 L 7.5 L (11.4-16.0) gm/dL Hct 25.0 L 23.1 L (34.0-46.0) % RDW 19.7 H 19.5 H (11.5-15.5) % Neutrophils # 8.5 H (1.3-7.7) k/uL Potassium 3.1 L (3.5-5.1) mmol/L Chloride 109 H (98-107) mmol/L BUN 39 H (7-17) mg/dL Creatinine 2.04 H (0.52-1.04) mg/dL Calcium 7.3 L (8.4-10.2) mg/dL Total Protein 4.8 L (6.3-8.2) g/dL Albumin 2.2 L (3.5-5.0) g/dL 03/23/24 03/23/24 Range/Units 14:41 14:41 RBC 2.58 L (3.80-5.40) m/uL Hgb 7.7 L (11.4-16.0) gm/dL Hct 24.7 L (34.0-46.0) % RDW 19.5 H (11.5-15.5) % Neutrophils # (1.3-7.7) k/uL Potassium 3.4 L (3.5-5.1) mmol/L Chloride (98-107) mmol/L BUN (7-17) mg/dL Creatinine (0.52-1.04) mg/dL Calcium (8.4-10.2) mg/dL Total Protein (6.3-8.2) g/dL Albumin (3.5-5.0) g/dL Microbiology - Last 24 Hours (Table) 03/21/24 23:53 Blood Culture - Preliminary Blood 03/21/24 23:38 Blood Culture - Preliminary Blood 03/22/24 09:41 Urine Culture - Final Urine,Voided Assessment and Plan Assessment: 1. Acute kidney injury secondary to hypotension and sepsis, ATN currently improving. Patient is maintained on IV fluids. 2. Chronic kidney disease and Stage IIIb. with baseline creatinine around 1.6 to 1.8 mg/dL. Patient had acute kidney injury about 2 weeks ago with peak creatinine at 2.7 and decreased to 1.8 on discharge on 03/16/2024 3. Recurrent hematuria , secondary to radiation cystitis status post recent cystoscopy and clot evacuation on 03/12/2024. Patient follows with urology. 4. Pyuria rule out UTI 5. Anemia secondary to hematuria, status post packed RBCs transfusion 6. Hypokalemia being replaced 7. A-fib with RVR maintained on amiodarone drip Plan: Continue with IV fluids continue with Streeter catheter Repeat labs in a.m. Continue with antibiotics Follow-up on urine culture.
[2024-03-23 16:29] LABS: Glucose,Whole Blood 96 mg/dL (70-110)
--- NOTE | 2024-03-23 19:01 | P.PN ---
Subjective Progress Note Date: 03/23/24 HISTORY OF PRESENT ILLNESS: 83-year-old with multimedical problems was hospitalized 2 weeks ago for over 10 days with multiple complications related to sepsis along with hypertension along with severe aggressive hemorrhagic cystitis and hematuria require multiple units of blood transfusion also require indwelling catheter and ended up finally going for an cystoscopy and fulguration with three-way's catheter to flush the bladder for over 48 hours before finally bleeding stopped. Patient was in the hospital for several days after the bleeding stopped completely with the recommendation to resume her anticoagulation for A-fib and for angioplasty and stent placement. With all the comorbidity and the complication she had patient and family absolutely refused to go anywhere but home the plan originally is for her to be home with physical therapy and home care with the help of family but she was supposed to go with family member who apparently had some medical background training to help her out to live in the [facility] for a few weeks till her symptoms improve and gain her independency. Also patient was supposed to have 2 follow-up appointment this week one of them in our office supposedly yesterday and 1 at the urology office this week she did not make it to both. She presented to the emergency department late in the evening because was very weak she passed out and reported having diarrhea with black stool along with severe hematuria with worsening incontinence. Patient also developed to have A- fib with RVR apparently told the ER that has not taking her antibiotic for the last 2 days because just not feeling well. She denies any injury from her w eakness or presyncope and again patient is not doing any anticoagulation. As soon as her Streeter catheter went and patient had over 400 cc of hematuria with clear blood followed by 200 more hemoglobin is down already 7.3 and within couple hours dropped down to 6.9. She is in acute kidney failure and lactic acid up to 2.6 and UA had a pure hematuria at this point. Initiate patient at the emergency department on Rocephin she developed to have very rapid ventricular response despite using metoprolol 100 mg a day patient with recommendation of cardiology initiate amiodarone drip. Remain in the ER but to be transferred to the ICU with recurrent complication of medical problems. Can you refer to my history and physical from last admission for further more patient medical history. 03/23/2024: Patient is feeling much better today, slight improvement on her Kidney test creatinine has improved some, hemoglobin is up to 8 and the drop again down slight bit. 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 Blood pressure becomes slightly below patient was observed treated with fluid challenge and IV hydration had improved blood pressure slightly repeat lactic acid came back at 1.4 patient is not septic at this point there is no positive culture so far and this is probably still more volume problem than infectious problem. REVIEW OF SYSTEMS: CONSTITUTIONAL: Well-developed in no respiratory distress. EYES: No icterus sclerae, no conjunctivitis. EARS, NOSE, MOUTH, THROAT, and FACE: No sore throat, lymphadenopathy, carotid bruits or deformity. RESPIRATORY: Mild shortness of breath and dyspnea with no cough or wheezes. CARDIOVASCULAR: Positive palpitation and A-fib with no angina positive PND and orthopnea. GASTROINTESTINAL: Slight abdominal pain with nausea diarrhea and bloody with/tarry bowel movement along with significant hematuria. GENITOURINARY: Significant hematuria with Streeter catheter in. INTEGUMENT/BREAST: Negative for any muscular injury with mild osteoarthritis.. HEMATOLOGIC/LYMPHATIC: Negative for bleed or purpura. MUSCULOSKELTAL: Generalized myalgia and arthralgia. NEURLOGICAL: No LOC, Sz or syncope, blurred vision dizziness or abnormality.. BEHAVIORAL/PSYCH: Negative. ENDOCRINE: Negative. PHYSICAL EXAMINATION: General Appearance: Alert, cooperative, mild distress. Neck HEENT: Supple, no lymphadenopathy, no thyroid enlargement, no carotid bruits. Lungs: Decreased expansion bilaterally with fine rhonchi positive mild rhonchi but no wheezes. Chest Wall: Decreased expansion with deep inspiration no tenderness and no deformity was found on exam, no costochondral pain or discomfort. Heart: Irregular rate and rhythm, S1, S2 positive severe tachycardia positive ejection murmur. Back: Symmetric, no curvature, ROM normal, no CVA tenderness. Abdomen: Soft with positive bowel sounds slight discomfort lower abdominal region area mostly epigastric along with mid lower abdominal area no rebound or rigidity. Extremities: Trace edema without cyanotic. Pulses: 2+ and symmetric. Skin: Skin color, texture, tugor normal, no rashes or lesions. Neurologic: Alert oriented with slight confusion. Cranial nerves II through XII intact, no motor deficit, no abnormal balance or gait. 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 patient e ventually required probably to go for cystoscopy again. In the meanwhile continue supportive care continue to watch urine output. _Acute GI bleed: More stable today no further bloody stool or tarry stool still on IV Protonix no need for EGD. _A-fib with RVR: Was placed on amiodarone drip initially decided beta-nereyda and calcium channel nereyda and today became quite bit bradycardic amiodarone was stopped patient still seen cardiology continue current medication management without anticoagulation. _Acute kidney injury: Much better today compared to yesterday continue hydration and volume placement. _Acute blood loss anemia: Significant drop in hemoglobin 2 unit of RBC t ransfusion was done and hemoglobin is up to 8. _Hypertension: Was on midodrine the patient continued to be symptomatic might need to be transferred to the ICU on vasopressor. _Sepsis and UTI: With her urine culture from last time with Klebsiella susceptible to many antibiotics patient will be on Rocephin for now till the culture again done and finalized this time. _Atherosclerotic heart disease: Post PCI and stent placement from October has been seeing cardiology she needs more assurance probably family need to be more involved making sure she is taking her medication on time and that she does not run out of medication. Consult cardiology holding off on antiplatelet agent for now because of the bleed. _Chronic systolic congestive heart failure: Not been able to keep up with her current medication will watch symptoms carefully and try to avoid fluid overload. _Type 2 diabetes: Has been doing well resume insulin with sliding scale coverage and was on Jardiance, continue medication. _Hyperlipidemia: Continue atorvastatin 20 mg a day. _Hypothyroidism: Continue levothyroxine 25 mcg daily. _GI prophylaxis: Will be on pantoprazole 40 mg daily. Discussion: Blood pressure still slightly low continue supportive care with fl uid, continue blood transfusion, patient might require to be transferred to the ICU for vasopressors continue be symptomatic with hypotension especially if the hemorrhage continues to be a problem. Patient seen urology along with general surgery no need for EGD at this point we will start nutrition and feeding and watch patient's symptoms closely. Also seen nephrology no need for hemodialysis. Objective - Vital Signs Vital signs: Vital Signs Temp 98.1 F 03/23/24 03:12 Pulse 80 03/23/24 03:12 Resp 16 03/23/24 03:12 BP 109/56 03/23/24 03:12 Pulse Ox 98 03/23/24 03:12 FiO2 Intake & Output 03/22/24 03/22/24 03/23/24 06:59 18:59 06:59 Intake Total 0 280 231.949 Output Total 400 Balance 0 -120 231.949 Weight 77.111 kg Intake: Intake, IV Titration 231.949 Amount Amiodarone 450 mg In 231.949 Dextrose 5% in Water 250 ml @ 0.5 MG/MIN 16.667 mls/hr IV .Q15H [facility] Rx#: [id number] Blood Product 0 280 Rc Pheresis 2 As3 Unit 0 280 [id number] Output: Urine 400 Straight 400 Other: Voiding Method Indwelling Catheter Indwelling Catheter - Labs CBC & Chem 7: 03/23/24 14:41 03/23/24 14:41 Labs: Abnormal Lab Results - Last 24 Hours (Table) 03/21/24 03/22/24 03/22/24 Range/Units 20:10 08:49 08:50 WBC (3.8-10.6) k/uL RBC (3.80-5.40) m/uL Hgb (11.4-16.0) gm/dL Hct (34.0-46.0) % MCHC (31.0-37.0) g/dL RDW (11.5-15.5) % Neutrophils # (1.3-7.7) k/uL Sodium 136 L (137-145) mmol/L Potassium 3.3 L (3.5-5.1) mmol/L BUN 48 H (7-17) mg/dL Creatinine 2.22 H (0.52-1.04) mg/dL POC Glucose (mg/dL) 126 H (70-110) mg/dL Calcium 7.4 L (8.4-10.2) mg/dL Total Protein 4.9 L (6.3-8.2) g/dL Albumin 2.3 L (3.5-5.0) g/dL Urine Appearance (Clear) Urine RBC (0-5) /hpf Urine WBC (0-5) /hpf Urine WBC Clumps (None) /hpf Urine Bacteria (None) /hpf Urine Mucus (None) /hpf Crossmatch See Detail 03/22/24 03/22/24 03/22/24 Range/Units 09:41 12:33 14:17 WBC 13.4 H (3.8-10.6) k/uL RBC 2.84 L (3.80-5.40) m/uL Hgb 8.2 L (11.4-16.0) gm/dL Hct 27.1 L (34.0-46.0) % MCHC 30.2 L (31.0-37.0) g/dL RDW 19.5 H (11.5-15.5) % Neutrophils # 11.3 H (1.3-7.7) k/uL Sodium (137-145) mmol/L Potassium (3.5-5.1) mmol/L BUN (7-17) mg/dL Creatinine (0.52-1.04) mg/dL POC Glucose (mg/dL) 150 H (70-110) mg/dL Calcium (8.4-10.2) mg/dL Total Protein (6.3-8.2) g/dL Albumin (3.5-5.0) g/dL Urine Appearance Turbid H (Clear) Urine RBC >182 H (0-5) /hpf Urine WBC >182 H (0-5) /hpf Urine WBC Clumps Many H (None) /hpf Urine Bacteria Moderate H (None) /hpf Urine Mucus Few H (None) /hpf Crossmatch 03/22/24 Range/Units 21:06 WBC (3.8-10.6) k/uL RBC 2.61 L (3.80-5.40) m/uL Hgb 8.0 L (11.4-16.0) gm/dL Hct 25.0 L (34.0-46.0) % MCHC (31.0-37.0) g/dL RDW 19.7 H (11.5-15.5) % Neutrophils # 8.5 H (1.3-7.7) k/uL Sodium (137-145) mmol/L Potassium (3.5-5.1) mmol/L BUN (7-17) mg/dL Creatinine (0.52-1.04) mg/dL POC Glucose (mg/dL) (70-110) mg/dL Calcium (8.4-10.2) mg/dL Total Protein (6.3-8.2) g/dL Albumin (3.5-5.0) g/dL Urine Appearance (Clear) Urine RBC (0-5) /hpf Urine WBC (0-5) /hpf Urine WBC Clumps (None) /hpf Urine Bacteria (None) /hpf Urine Mucus (None) /hpf Crossmatch
[2024-03-23 20:14] LABS: Glucose,Whole Blood 133 mg/dL (70-110)
--- NOTE | 2024-03-23 21:20 | P.PN ---
Subjective HISTORY OF PRESENTING ILLNESS 83-year-old with past medical history of paroxysmal atrial fibrillation, hypertension, dyslipidemia, CKD, chronic diastolic heart failure, last NSTEMI in October 2023 requiring heart cath showing 80% left main stenosis and mid LAD 60 to 70% stenosis with BI DATA MODELER of LCx. She underwent PCI of left main into LAD. Patient has also had multiple hospital visits with A-fib RVR's past as well as recent visit with anemia and hematuria. Patient was dischrged 1 week ago and had been feeling OK however has had continued diarrhea. She states she actually came back to ER secondary to diarrhea however deniea any blood in stool. Does however have severe hematuria which has been persistent despite stopping blood thinners. No chest pain or pressure. found to be Afib with RVR and placed on Amio drip. Lactic acid 5 however improved down to 3 with IVF bolus. Cr also improved. Has chronic R>L LE edema. No fevers or chills. 03/23 patient seen and examined. Patient denies any chest pain or pressure. Her breathing is fairly stable. Her hematuria has mildly improved. Has been receiving IV fluids. Her daughter is asking about possible watchman device which we discussed maybe an option down the road. Patient had lower heart rate into the 40s to 50s and therefore amiodarone was discontinued and additionally had lower blood pressure 74/45. Blood pressure however is has increased. PHYSICAL EXAMINATION Vital signs reviewed. Head: Normocephalic. Eyes: Sclerae nonicteric. Neck: Brisk carotid upstroke, no jugular venous distention. Lungs: Poor inspiratory effort. Heart: irregularly irregular, S1-S2, , 2/6 systolic murmur . Abdomen: Soft nontender, positive bowel sounds. Extremities: 1+ edema, Neuro: no focal deficits. Detailed neuro exam was not performed. ASSESSMENT Elevated troponin, likely type II NSTEMI in setting of BOLA, sepsis and anemia Chronic systolic heart failure, CAD s/p PCI in October 2023. S/p PCI to left main into LAD 4 x 15 mm PRANAY Atrial fibrillation with RVR Acute blood loss anemia with hematuria Possible ssepsis CKD Hyperlipidemia Hypothyroidism Questionable medication compliance LE edema likely component of venous insufficency PLAN Hold all anticoagulation, antiplatelets for now. Larger sized stent 4 months ago and less risk of stent thrombosis Continue Toprol as tolerated however amiodarone was discontinued secondary to some bradycardia Transfuse as needed Monitor hematuria, urology recs Further rec to follow patient with hypotension likely more of a component of sepsis however was mildly bradycardic at the time with heart rates in the 40s to 50s. May have some degree of sick sinus syndrome. Objective - Vital Signs Vital signs: Vital Signs Temp 98 F 03/23/24 19:38 Pulse 70 03/23/24 19:38 Resp 15 03/23/24 19:38 BP 101/55 03/23/24 19:38 Pulse Ox 97 03/23/24 19:38 FiO2 Intake & Output 03/23/24 03/23/24 03/24/24 06:59 18:59 06:59 Intake Total 231.949 895.838 Output Total 1000 900 100 Balance -768.051 -4.162 -100 Weight 67.585 kg Intake: Intake, IV Titration 231.949 245.838 Amount Amiodarone 450 mg In 231.949 245.838 Dextrose 5% in Water 250 ml @ 0.5 MG/MIN 16.667 mls/hr IV .Q15H [facility] Rx#: [id number] Oral 650 Output: Urine 1000 900 100 Other: Voiding Method Indwelling Catheter Indwelling Catheter Indwelling Catheter - Labs CBC & Chem 7: 03/23/24 14:41 03/23/24 14:41 Labs: Abnormal Lab Results - Last 24 Hours (Table) 03/22/24 03/23/24 03/23/24 Range/Units 21:06 08:29 08:29 RBC 2.61 L 2.39 L (3.80-5.40) m/uL Hgb 8.0 L 7.5 L (11.4-16.0) gm/dL Hct 25.0 L 23.1 L (34.0-46.0) % RDW 19.7 H 19.5 H (11.5-15.5) % Neutrophils # 8.5 H (1.3-7.7) k/uL Potassium 3.1 L (3.5-5.1) mmol/L Chloride 109 H (98-107) mmol/L BUN 39 H (7-17) mg/dL Creatinine 2.04 H (0.52-1.04) mg/dL POC Glucose (mg/dL) (70-110) mg/dL Calcium 7.3 L (8.4-10.2) mg/dL Total Protein 4.8 L (6.3-8.2) g/dL Albumin 2.2 L (3.5-5.0) g/dL 03/23/24 03/23/24 03/23/24 Range/Units 14:41 14:41 20:12 RBC 2.58 L (3.80-5.40) m/uL Hgb 7.7 L (11.4-16.0) gm/dL Hct 24.7 L (34.0-46.0) % RDW 19.5 H (11.5-15.5) % Neutrophils # (1.3-7.7) k/uL Potassium 3.4 L (3.5-5.1) mmol/L Chloride (98-107) mmol/L BUN (7-17) mg/dL Creatinine (0.52-1.04) mg/dL POC Glucose (mg/dL) 133 H (70-110) mg/dL Calcium (8.4-10.2) mg/dL Total Protein (6.3-8.2) g/dL Albumin (3.5-5.0) g/dL Microbiology - Last 24 Hours (Table) 03/21/24 23:53 Blood Culture - Preliminary Blood 03/21/24 23:38 Blood Culture - Preliminary Blood 03/22/24 09:41 Urine Culture - Final Urine,Voided
[2024-03-24 05:25] LABS: Glucose,Whole Blood 96 mg/dL (70-110)
--- NOTE | 2024-03-24 09:58 | P.PN ---
Subjective Patient is seen in follow-up for acute kidney injury on chronic kidney disease. Renal function improving the last couple of days. Heart rate controlled. On metoprolol. Has Streeter catheter. Nonoliguric. No vomiting or diarrhea. Vital signs are stable. General: No acute distress. HEENT: Head exam is unremarkable. LUNGS: No audible rhonchi or wheezes. HEART: Rate and Rhythm are regular. ABDOMEN: Nontender. EXTREMITITES: No edema. Objective - Vital Signs Vital signs: Vital Signs Temp 97.8 F 03/24/24 03:26 Pulse 80 03/24/24 03:26 Resp 17 03/24/24 03:26 BP 126/74 03/24/24 03:26 Pulse Ox 100 03/24/24 03:26 FiO2 Intake & Output 03/23/24 03/24/24 03/24/24 18:59 06:59 18:59 Intake Total 895.838 Output Total 900 500 Balance -4.162 -500 Intake: Intake, IV Titration 245.838 Amount Amiodarone 450 mg In 245.838 Dextrose 5% in Water 250 ml @ 0.5 MG/MIN 16.667 mls/hr IV .Q15H [facility] Rx#: [id number] Oral 650 Output: Urine 900 500 Other: Voiding Method Indwelling Catheter Indwelling Catheter - Labs CBC & Chem 7: 03/23/24 14:41 03/23/24 14:41 Labs: Abnormal Lab Results - Last 24 Hours (Table) 03/23/24 03/23/24 03/23/24 Range/Units 14:41 14:41 14:55 RBC 2.58 L (3.80-5.40) m/uL Hgb 7.7 L (11.4-16.0) gm/dL Hct 24.7 L (34.0-46.0) % RDW 19.5 H (11.5-15.5) % Potassium 3.4 L (3.5-5.1) mmol/L POC Glucose (mg/dL) (70-110) mg/dL Procalcitonin 0.17 H (0.02-0.09) ng/mL 03/23/24 Range/Units 20:12 RBC (3.80-5.40) m/uL Hgb (11.4-16.0) gm/dL Hct (34.0-46.0) % RDW (11.5-15.5) % Potassium (3.5-5.1) mmol/L POC Glucose (mg/dL) 133 H (70-110) mg/dL Procalcitonin (0.02-0.09) ng/mL Microbiology - Last 24 Hours (Table) 03/21/24 23:53 Blood Culture - Preliminary Blood 03/21/24 23:38 Blood Culture - Preliminary Blood 03/22/24 09:41 Urine Culture - Final Urine,Voided Assessment and Plan Plan: Assessment: 1. Acute kidney injury secondary to ATN secondary to severe sepsis. Renal function improving. Creatinine 2.04 yesterday. 2. Chronic kidney disease stage IIIb with baseline creatinine 1.6-1.8. 3. 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 Urology following. 4. A-fib with RVR. On metoprolol. Status post amiodarone drip. 5. Acute blood loss anemia status post blood transfusion. Stable. 6. Hypokalemia from saline diuresis. Replaced. 7. Metabolic acidosis secondary to acute kidney injury maintained on oral bicarb. Plan: Decrease rate of IV fluids to 75 cc an hour. Maintain Streeter catheter. Hold SGLT2 inhibitor due to acute UTI. Add Aranesp.
[2024-03-24 11:35] LABS: Glucose,Whole Blood 93 mg/dL (70-110)
--- NOTE | 2024-03-24 12:28 | P.PN ---
Subjective Progress Note Date: 03/24/24 Principal diagnosis: Hypotension. This is a 83-year-old female patient with a history of atrial fibrillation anticoagulated with Eliquis, valvular heart disease, coronary disease with previous stent placement, diabetes mellitus, hypertension, osteoarthritis, uterine cancer, hematuria being worked up by urology. She was recently here from March 04 through March 16, 2024. She presented back to the emergency room on 03/21/2024 with complaints of progressive weakness fatigue and near syncopal episode. She was found to be in atrial fibrillation with a rapid ventricular response. We are consulted today for hypotension and possible transfer to the intensive care unit. She is seen on the selective care unit. She is currently awake and alert in no acute distress. She is maintaining good O2 saturations in the 90s on room air. Her white count is 8.1. Hemoglobin 7.7. Platelets 414. Sodium 137. Potassium 3.4. Bicarb 25. BUN 39. Creatinine 2.04. Glucose 105. proBNP was 22,900. Chest x-ray revealed mild congestive heart failure improved compared to previous on 03/15/2024. CT scan of the abdomen pelvis revealed abnormal density in the dependent portion of the urinary bladder consistent with blood clots or neoplasm. Large amount of stool within the rectum but no bowel obstruction. Sludge in the dependent portion of the gallbladder without gallbladder wall thickening or pericholecystic fluid. She continues with blood- tinged urine. Urology is on the case. They feel may have radiation cystitis and urinary tract infection. She received fluid resuscitation and is currently on normal saline at 130 MLS per hour. Her midodrine was increased to 5 mg 3 times a day. Denies any dizziness, no chest pain or palpitations. Progress note dated March 24, 2024. 83-year-old female seen in consultation yesterday. Please see the note above. We were asked to see her, for possible transfer to the intensive care unit, for bradycardia, and hypotension. We evaluated her at the bedside, and the patient was stable. We did recommend additional fluids, and increasing the midodrine to 3 times a day. Currently, the patient is resting comfortably. The patient is on room air. The patient is getting Rocephin. The patient is getting saline at 75 cc an hour. She appears not to have any distress, and her hemodynamic status is more stable. She denies all respiratory issues. No new laboratory data today other than a glucose of 93. Her procalcitonin level was 0.17. Blood and urine sampling is thus far negative. No new radiographs to discuss. Objective - Vital Signs Vital signs: Vital Signs Temp 97.6 F 03/24/24 08:00 Pulse 81 03/24/24 08:00 Resp 16 03/24/24 08:00 BP 95/51 03/24/24 08:00 Pulse Ox 98 03/24/24 08:00 FiO2 Intake & Output 03/23/24 03/24/24 03/24/24 18:59 06:59 18:59 Intake Total 895.838 Output Total 900 500 Balance -4.162 -500 Intake: Intake, IV Titration 245.838 Amount Amiodarone 450 mg In 245.838 Dextrose 5% in Water 250 ml @ 0.5 MG/MIN 16.667 mls/hr IV .Q15H [facility] Rx#: [id number] Oral 650 Output: Urine 900 500 Other: Voiding Method Indwelling Catheter Indwelling Catheter Indwelling Catheter - Exam No acute distress, oriented 3. The patient is currently on room air. No respiratory distress. HEENT examination is grossly unremarkable. Mucous membranes are moist. No oral lesions. Neck supple. Full range of motion. No adenopathy thyromegaly or neck vein distention. Cardiovascular examination reveals regular rhythm rate. S1-S2 normal. No S3 or S4. No discernible murmur noted. Heart rate 81 bpm. Heart rate is regular. Lungs reveal mostly clear breath sounds. Minimal basilar crackles. Breath sounds equal bilaterally. No rhonchi. No distinct wheezes noted. Saturations are 98% on room air. Abdomen soft bowel sounds are heard. No masses or tenderness. Extremities are intact. No cyanosis clubbing or edema. Skin is without rash or lesion. Neurologic examination is brief but nonfocal. - Labs CBC & Chem 7: 03/23/24 14:41 03/23/24 14:41 Labs: Abnormal Lab Results - Last 24 Hours (Table) 03/23/24 03/23/24 03/23/24 Range/Units 14:41 14:41 14:55 RBC 2.58 L (3.80-5.40) m/uL Hgb 7.7 L (11.4-16.0) gm/dL Hct 24.7 L (34.0-46.0) % RDW 19.5 H (11.5-15.5) % Potassium 3.4 L (3.5-5.1) mmol/L POC Glucose (mg/dL) (70-110) mg/dL Procalcitonin 0.17 H (0.02-0.09) ng/mL 03/23/24 Range/Units 20:12 RBC (3.80-5.40) m/uL Hgb (11.4-16.0) gm/dL Hct (34.0-46.0) % RDW (11.5-15.5) % Potassium (3.5-5.1) mmol/L POC Glucose (mg/dL) 133 H (70-110) mg/dL Procalcitonin (0.02-0.09) ng/mL Microbiology - Last 24 Hours (Table) 03/21/24 23:53 Blood Culture - Preliminary Blood 03/21/24 23:38 Blood Culture - Preliminary Blood 03/22/24 09:41 Urine Culture - Final Urine,Voided Assessment and Plan Assessment: Progressive weakness and hypotension secondary to atrial fibrillation with rapid ventricular response, severe hematuria, acute GI bleed. Atrial fibrillation with a rapid ventricular response, anticoagulated with Eliquis. Acute GI bleed with tarry stools, received 1 unit of packed red blood cells this admission. Acute exacerbation of chronic systolic congestive heart failure. Acute on chronic kidney disease. Chronic microcytic, hypochromic anemia, received iron supplements. Coronary artery disease, with recent PCI/stent to the LAD performed 10/28/2023. History of mild to moderate mitral regurgitation, preserved LV function. History of diabetes mellitus, type II. History of hypothyroidism. Chronic kidney disease stage III. History of hyperlipidemia. Remote history of uterine CA. Poor overall functional performance based on the above-mentioned multiple comorbidities. Recent discharge from the hospital to home as the patient refused subacute rehabilitation. Plan: Plan dated March 24, 2024. We were initially consulted for hypotension, and bradycardia, and the possible need of an ICU bed. Currently, the patient appears relatively stable. We will continue to follow the patient, as needed. Labs, x-rays, medications are reviewed. The patient's prognosis remains guarded. No additional recommendations at this time. We did increase the midodrine up to 3 times a day, and gave the patient some additional fluid yesterday. This seemed to help her blood pressure. Time with Patient: Less than 30
--- NOTE | 2024-03-24 12:54 | P.PN ---
Subjective Progress Note Date: 03/24/24 83-year-old with multimedical problems was hospitalized 2 weeks ago for over 10 days with multiple complications related to sepsis along with hypertension along with severe aggressive hemorrhagic cystitis and hematuria require multiple units of blood transfusion also require indwelling catheter and ended up finally going for an cystoscopy and fulguration with three-way's catheter to flush the bladder for over 48 hours before finally bleeding stopped. Patient was in the hospital for several days after the bleeding stopped completely with the recommendation to resume her anticoagulation for A-fib and for angioplasty and stent placement. With all the comorbidity and the complication she had patient and family absolutely refused to go anywhere but home the plan originally is for her to be home with physical therapy and home care with the help of family but she was supposed to go with family member who apparently had some medical background training to help her out to live in the [facility] for a few weeks till her symptoms improve and gain her independency. Also patient was supposed to have 2 follow-up appointment this week one of them in our office supposedly yesterday and 1 at the urology office this week she did not make it to both. She presented to the emergency department late in the evening because was very weak she passed out and reported having diarrhea with black stool along with severe hematuria with worsening incontinence. Patient also developed to have A- fib with RVR apparently told the ER that has not taking her antibiotic for the last 2 days because just not feeling well. She denies any injury from her weakness or presyncope and again patient is not doing any anticoagulation. As soon as her Streeter catheter went and patient had over 400 cc of hematuria with clear blood followed by 200 more hemoglobin is down already 7.3 and within couple hours dropped down to 6.9. She is in acute kidney failure and lactic acid up to 2.6 and UA had a pure hematuria at this point. Initiate patient at the emergency department on Rocephin she developed to have very rapid ventricular response despite using metoprolol 100 mg a day patient with recommendation of cardiology initiate amiodarone drip. Remain in the ER but to be transferred to the ICU with recurrent complication of medical problems. Can you refer to my history and physical from last admission for further more patient medical history. 03/23/2024: Patient is feeling much better today, slight improvement on her Kidney test creatinine has improved some, hemoglobin is up to 8 and the drop again down slight bit. 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 Blood pressure becomes slightly below patient was observed treated with fluid challenge and IV hydration had improved blood pressure slightly repeat lactic acid came back at 1.4 patient is not septic at this point there is no positive culture so far and this is probably still more volume problem than infectious problem. 03/24. Patient seen and examined. Patient blood pressure was low but patient currently asymptomatic. Denies lightheaded or dizziness. Denies any chest pain. Denies any shortness of breath REVIEW OF SYSTEMS: CONSTITUTIONAL: No fever, no malaise,. CARDIOVASCULAR: No chest pain, no palpitations, no syncope. PULMONARY: No shortness of breath, no cough, GASTROINTESTINAL: No diarrhea, no nausea, no vomiting, no abdominal pain. NEUROLOGICAL: No headaches, no weakness, PHYSICAL EXAMINATION: GENERAL: The patient is alert, chronically ill looking HEENT: Pupils are round and equally reacting to light. EOMI. No scleral icterus. No conjunctival pallor. Normocephalic, atraumatic. No pharyngeal erythema. No thyromegaly. CARDIOVASCULAR: S1 and S2 present. No murmurs, rubs, or gallops. PULMONARY: Chest is clear to auscultation, no wheezing or crackles. ABDOMEN: Soft, nontender, nondistended, normoactive bowel sounds. No palpable organomegaly. MUSCULOSKELETAL: No joint swelling or deformity. EXTREMITIES: No cyanosis, clubbing NEUROLOGICAL: Gross neurological examination did not reveal any focal deficits. SKIN: No rashes. 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 Continue IV Rocephin, urology following _Acute GI bleed: Monitor CBC IV Protonix no need for EGD. _A-fib with RVR: Was placed on amiodarone drip initially decided beta-nereyda and calcium channel nereyda and became quite bit bradycardic amiodarone was stopped. Continue Toprol _Acute kidney injury: Monitor renal functions, continue IV fluids, nephrology following _Acute blood loss anemia: Monitor CBC _Hypotension: Monitor vital signs, dose of midodrine increased to 3 times a day _Sepsis and UTI: With her urine culture from last time with Klebsiella susceptible to many antibiotics patient will be on Rocephin for now till the culture again done and finalized this time. ID consulted _Atherosclerotic heart disease: Post PCI and stent placement from October has been seeing cardiology she needs more assurance probably family need to be more involved making sure she is taking her medication on time and that she does not run out of medication. Continue home meds _Chronic systolic congestive heart failure: Not been able to keep up with her current medication will watch symptoms carefully and try to avoid fluid overloa d. _Type 2 diabetes: Has been doing well resume insulin with sliding scale coverage and was on Jardiance, continue medication. _Hyperlipidemia: Continue atorvastatin 20 mg a day. _Hypothyroidism: Continue levothyroxine 25 mcg daily. Labs and medication were reviewed.. Continue same treatment. Continue with symptomatic treatment. Resume home medication. Monitor labs and vitals. DVT and GI prophylaxis. Further recommendations as per clinical course of the patient Dictation was produced using [employer] dictation software. please excuse any grammatical, word or spelling errors. Objective - Vital Signs Vital signs: Vital Signs Temp 97.6 F 03/24/24 08:00 Pulse 81 03/24/24 08:00 Resp 16 03/24/24 08:00 BP 95/51 03/24/24 08:00 Pulse Ox 98 03/24/24 08:00 FiO2 Intake & Output 03/23/24 03/24/24 03/24/24 18:59 06:59 18:59 Intake Total 895.838 Output Total 900 500 Balance -4.162 -500 Intake: Intake, IV Titration 245.838 Amount Amiodarone 450 mg In 245.838 Dextrose 5% in Water 250 ml @ 0.5 MG/MIN 16.667 mls/hr IV .Q15H [facility] [place] Rx#: [id number] Oral 650 Output: Urine 900 500 Other: Voiding Method Indwelling Catheter Indwelling Catheter Indwelling Catheter - Labs CBC & Chem 7: 03/23/24 14:41 03/23/24 14:41 Labs: Abnormal Lab Results - Last 24 Hours (Table) 0603/23/24 03/23/24 Range/Units 14:41 14:41 14:55 RBC 2.58 L (3.80-5.40) m/uL Hgb 7.7 L (11.4-16.0) gm/dL Hct 24.7 L (34.0-46.0) % RDW 19.5 H (11.5-15.5) % Potassium 3.4 L (3.5-5.1) mmol/L POC Glucose (mg/dL) (70-110) mg/dL Procalcitonin 0.17 H (0.02-0.09) ng/mL 03/23/24 Range/Units 20:12 RBC (3.80-5.40) m/uL Hgb (11.4-16.0) gm/dL Hct (34.0-46.0) % RDW (11.5-15.5) % Potassium (3.5-5.1) mmol/L POC Glucose (mg/dL) 133 H (70-110) mg/dL Procalcitonin (0.02-0.09) ng/mL Microbiology - Last 24 Hours (Table) 03/21/24 23:53 Blood Culture - Preliminary Blood 03/21/24 23:38 Blood Culture - Preliminary Blood 03/22/24 09:41 Urine Culture - Final Urine,Voided
[2024-03-24] MEDS: SODIUM CHLORIDE 0.9% 1,000 ML IV SCH (13:06)
[2024-03-24] MEDS: DARBEPOETIN ALFA 40 MCG/0.4 ML SYRINGE SQ SCH (13:06)
--- NOTE | 2024-03-24 15:03 | P.PN ---
Subjective Progress Note Date: 03/24/24 Principal diagnosis: Hematuria with clots Patient has no complaints at this time. The Streeter catheter is essentially clear urine. Objective - Vital Signs Vital signs: Vital Signs Temp 97.8 F 03/24/24 03:26 Pulse 80 03/24/24 03:26 Resp 17 03/24/24 03:26 BP 126/74 03/24/24 03:26 Pulse Ox 100 03/24/24 03:26 FiO2 Intake & Output 03/23/24 03/24/24 03/24/24 18:59 06:59 18:59 Intake Total 895.838 Output Total 900 500 Balance -4.162 -500 Intake: Intake, IV Titration 245.838 Amount Amiodarone 450 mg In 245.838 Dextrose 5% in Water 250 ml @ 0.5 MG/MIN 16.667 mls/hr IV .Q15H [facility] Rx#: [id number] Oral 650 Output: Urine 900 500 Other: Voiding Method Indwelling Catheter Indwelling Catheter - Constitutional General appearance: Present: average body habitus, cooperative, no acute distress - Gastrointestinal General gastrointestinal: Present: soft. Absent: distended, tenderness - Psychiatric Psychiatric: Present: A&O x's 3 - Labs CBC & Chem 7: 03/23/24 14:41 03/23/24 14:41 Labs: Abnormal Lab Results - Last 24 Hours (Table) 03/23/24 03/23/24 03/23/24 Range/Units 08:29 08:29 14:41 RBC 2.39 L (3.80-5.40) m/uL Hgb 7.5 L (11.4-16.0) gm/dL Hct 23.1 L (34.0-46.0) % RDW 19.5 H (11.5-15.5) % Potassium 3.1 L 3.4 L (3.5-5.1) mmol/L Chloride 109 H (98-107) mmol/L BUN 39 H (7-17) mg/dL Creatinine 2.04 H (0.52-1.04) mg/dL POC Glucose (mg/dL) (70-110) mg/dL Calcium 7.3 L (8.4-10.2) mg/dL Total Protein 4.8 L (6.3-8.2) g/dL Albumin 2.2 L (3.5-5.0) g/dL Procalcitonin (0.02-0.09) ng/mL 03/23/24 03/23/24 03/23/24 Range/Units 14:41 14:55 20:12 RBC 2.58 L (3.80-5.40) m/uL Hgb 7.7 L (11.4-16.0) gm/dL Hct 24.7 L (34.0-46.0) % RDW 19.5 H (11.5-15.5) % Potassium (3.5-5.1) mmol/L Chloride (98-107) mmol/L BUN (7-17) mg/dL Creatinine (0.52-1.04) mg/dL POC Glucose (mg/dL) 133 H (70-110) mg/dL Calcium (8.4-10.2) mg/dL Total Protein (6.3-8.2) g/dL Albumin (3.5-5.0) g/dL Procalcitonin 0.17 H (0.02-0.09) ng/mL Microbiology - Last 24 Hours (Table) 03/21/24 23:53 Blood Culture - Preliminary Blood 03/21/24 23:38 Blood Culture - Preliminary Blood 03/22/24 09:41 Urine Culture - Final Urine,Voided Assessment and Plan (1) Gross hematuria Current Visit: Yes Status: Acute Code(s): R31.0 - GROSS HEMATURIA SNOMED Code(s): 266063387 (2) UTI (urinary tract infection) Current Visit: Yes Status: Acute Code(s): N39.0 - URINARY TRACT INFECTION, SITE NOT SPECIFIED SNOMED Code(s): 15238334 Plan: - It would be reasonable to remove the foot Streeter catheter tomorrow if the urine remains clear. - Continue Rocephin.
--- NOTE | 2024-03-24 15:59 | P.PN ---
Subjective Progress Note Date: 03/24/24 HISTORY OF PRESENTING ILLNESS 83-year-old with past medical history of paroxysmal atrial fibrillation, hyp ertension, dyslipidemia, CKD, chronic diastolic heart failure, last NSTEMI in October 2023 requiring heart cath showing 80% left main stenosis and mid LAD 60 to 70% stenosis with [employer]ATING [employer] of LCx. She underwent PCI of left main into LAD. Patient has also had multiple hospital visits with A-fib RVR's past as well as recent visit with anemia and hematuria. Prior echocardiogram 03/05/2024 with EF 65-70%, mild LVH. Patient was dischrged 1 week ago and had been feeling OK however has had continued diarrhea. She states she actually came back to ER secondary to diarrhea however deniea any blood in stool. Does however have severe hematuria which has been persistent despite stopping blood thinners. No chest pain or pressure. found to be Afib with RVR and placed on Amio drip. Lactic acid 5 however improved down to 3 with IVF bolus. Cr also improved. Has chronic R>L LE edema. No fevers or chills. 03/23 patient seen and examined. Patient denies any chest pain or pressure. Her breathing is fairly stable. Her hematuria has mildly improved. Has been receiving IV fluids. Her daughter is asking about possible watchman device which we discussed maybe an option down the road. Patient had lower heart rate into the 40s to 50s and therefore amiodarone was discontinued and additionally had lower blood pressure 74/45. Blood pressure however is has increased. 03/24 She has not been sleeping well. She complains of feeling tired and fatigued. Her blood pressure has been on the lower side and rates on telemetry have been 4060s. She denies any chest pain or pressure. PHYSICAL EXAMINATION Vital signs reviewed. Head: Normocephalic. Eyes: Sclerae nonicteric. Neck: Brisk carotid upstroke, no jugular venous distention. Lungs: Poor inspiratory effort. Heart: irregularly irregular, S1-S2, , 2/6 systolic murmur . Abdomen: Soft nontender, positive bowel sounds. Extremities: 1+ edema, Neuro: no focal deficits. Detailed neuro exam was not performed. ASSESSMENT Elevated troponin, likely type II NSTEMI in setting of BOLA, sepsis and anemia Chronic diastolic heart failure, CAD s/p PCI in October 2023. S/p PCI to left main into LAD 4 x 15 mm PRANAY Atrial fibrillation with RVR Acute blood loss anemia with hematuria Possible sepsis CKD Hyperlipidemia Hypothyroidism Questionable medication compliance LE edema likely component of venous insufficency PLAN We will decrease metoprolol to 50 mg and monitor response. Hold all anticoagulation, antiplatelets for now. Larger sized stent 4 months ago and less risk of stent thrombosis Transfuse as needed Monitor hematuria, urology recs Further rec to follow Patient with hypotension likely more of a component of sepsis however was mildly bradycardic at the time with heart rates in the 40s to 50s. May have some degree of sick sinus syndrome. Patient seen and examined in rounds with Dr. Mosley, plan of care agreed upon. Objective - Vital Signs Vital signs: Vital Signs Temp 97.6 F 03/24/24 08:00 Pulse 59 L 03/24/24 14:00 Resp 16 03/24/24 14:00 BP 76/38 03/24/24 12:00 Pulse Ox 98 03/24/24 12:00 FiO2 Intake & Output 03/23/24 03/24/24 03/24/24 18:59 06:59 18:59 Intake Total 895.838 740 Output Total 900 500 Balance -4.162 -500 740 Intake: Intake, IV Titration 245.838 200 Amount Amiodarone 450 mg In 245.838 Dextrose 5% in Water 250 ml @ 0.5 MG/MIN 16.667 mls/hr IV .Q15H [facility] Rx#: [id number] Sodium Chloride 0.9% 1, 200 000 ml @ 75 mls/hr IV . [id number] [facility] Rx#:[id number] Oral 650 540 Output: Urine 900 500 Other: Voiding Method Indwelling Catheter Indwelling Catheter Indwelling Catheter # Bowel Movements 1 - Labs CBC & Chem 7: 03/23/24 14:41 03/23/24 14:41 Labs: Abnormal Lab Results - Last 24 Hours (Table) 03/23/24 03/23/24 Range/Units 14:55 20:12 POC Glucose (mg/dL) 133 H (70-110) mg/dL Procalcitonin 0.17 H (0.02-0.09) ng/mL Microbiology - Last 24 Hours (Table) 03/21/24 23:53 Blood Culture - Preliminary Blood 03/21/24 23:38 Blood Culture - Preliminary Blood
[2024-03-24 16:49] LABS: Glucose,Whole Blood 128 mg/dL (70-110)
[2024-03-24 20:10] LABS: Glucose,Whole Blood 139 mg/dL (70-110)
[2024-03-24] MEDS: METOPROLOL SUCCINATE (ER) 50 MG TAB.ER.24H PO SCH (21:21)
[2024-03-25 06:06] LABS: Glucose,Whole Blood 160 mg/dL (70-110)
[2024-03-25 08:04] LABS: Anisocytosis Slight; Basophils % (A) 0 %; Eosinophils # (A) 0.1 k/uL (0-0.7); Eosinophils % (A) 3 %; HCT 22.9 % (34.0-46.0); Hypochromasia Marked; Lymphocytes # (A) 0.7 k/uL (1.0-4.8); Lymphocytes % (A) 15 %; MCH 29.7 pg (25.0-35.0); MCHC 30.6 g/dL (31.0-37.0); Macrocytosis Slight; Mean Platelet Volume 7.8; Monocytes # (A) 0.3 k/uL (0-1.0); Monocytes % (A) 7 %; Neutrophils # (A) 3.3 k/uL (1.3-7.7); Neutrophils % (A) 74 %; Platelet Count 294 k/uL (150-450); Poikilocytosis Slight; RBC 2.37 m/uL (3.80-5.40); RDW 18.8 % (11.5-15.5); WBC 4.5 k/uL (3.8-10.6)
[2024-03-25 08:46] LABS: ALT 11 U/L (4-34); AST 18 U/L (14-36); African American GFR (CKD) 26 (>60 ml/min/1.73 sqM); Albumin 2.1 g/dL (3.5-5.0); Alkaline Phosphatase 96 U/L (38-126); Anion Gap 5 mmol/L; Blood Urea Nitrogen 28 mg/dL (7-17); Calcium 7.3 mg/dL (8.4-10.2); Carbon Dioxide 19 mmol/L (22-30); Chloride 114 mmol/L (98-107); Glucose 96 mg/dL (74-99); Magnesium 2.1 mg/dL (1.6-2.3); Non-African American GFR(CKD) 23 (>60 ml/min/1.73 sqM); Potassium 3.5 mmol/L (3.5-5.1); Sodium 138 mmol/L (137-145); Total Bilirubin 0.3 mg/dL (0.2-1.3); Total Protein 4.7 g/dL (6.3-8.2)
--- NOTE | 2024-03-25 10:13 | P.PN ---
Subjective Progress Note Date: 03/25/24 Principal diagnosis: Hypotension. This is a 83-year-old female patient with a history of atrial fibrillation anticoagulated with Eliquis, valvular heart disease, coronary disease with previous stent placement, diabetes mellitus, hypertension, osteoarthritis, uterine cancer, hematuria being worked up by urology. She was recently here from March 04 through March 16, 2024. She presented back to the emergency room on 03/21/2024 with complaints of progressive weakness fatigue and near syncopal episode. She was found to be in atrial fibrillation with a rapid ventricular response. We are consulted today for hypotension and possible transfer to the intensive care unit. She is seen on the selective care unit. She is currently awake and alert in no acute distress. She is maintaining good O2 saturations in the 90s on room air. Her white count is 8.1. Hemoglobin 7.7. Platelets 414. Sodium 137. Potassium 3.4. Bicarb 25. BUN 39. Creatinine 2.04. Glucose 105. proBNP was 22,900. Chest x-ray revealed mild congestive heart failure improved compared to previous on 03/15/2024. CT scan of the abdomen pelvis revealed abnormal density in the dependent portion of the urinary bladder consistent with blood clots or neoplasm. Large amount of stool within the rectum but no bowel obstruction. Sludge in the dependent portion of the gallbladder without gallbladder wall thickening or pericholecystic fluid. She continues with blood- tinged urine. Urology is on the case. They feel may have radiation cystitis and urinary tract infection. She received fluid resuscitation and is currently on normal saline at 130 MLS per hour. Her midodrine was increased to 5 mg 3 times a day. Denies any dizziness, no chest pain or palpitations. Progress note dated March 24, 2024. 83-year-old female seen in consultation yesterday. Please see the note above. We were asked to see her, for possible transfer to the intensive care unit, for bradycardia, and hypotension. We evaluated her at the bedside, and the patient was stable. We did recommend additional fluids, and increasing the midodrine to 3 times a day. Currently, the patient is resting comfortably. The patient is on room air. The patient is getting Rocephin. The patient is getting saline at 75 cc an hour. She appears not to have any distress, and her hemodynamic status is more stable. She denies all respiratory issues. No new laboratory data today other than a glucose of 93. Her procalcitonin level was 0.17. Blood and urine sampling is thus far negative. No new radiographs to discuss. Progress note dated March 25, 2024. 83-year-old female seen today in room 369. She is resting comfortably in bed. She is on room air. She is getting saline at 50 cc an hour. The patient denies any shortness of breath, cough, wheezing, chest tightness, chest pain, or chest discomfort. Current labs include a white count 4.5, hemoglobin 7, hematocrit 22.9, platelet count 294,000. Sodium 138, potassium 3.5, chlorides 114, CO2 19, BUN 28, creatinine 2.01. Glucose is 96. Calcium 7.3. Albumin is 2.1. Urine and blood cultures are thus far negative. Objective - Vital Signs Vital signs: Vital Signs Temp 98.3 F 03/25/24 00:00 Pulse 82 03/25/24 04:00 Resp 19 03/25/24 04:00 BP 123/77 03/25/24 04:00 Pulse Ox 99 03/25/24 04:00 FiO2 Intake & Output 03/24/24 03/25/24 03/25/24 18:59 06:59 18:59 Intake Total 858 236 Output Total 475 Balance 383 236 Weight 67.9 kg Intake: Intake, IV Titration 200 Amount Sodium Chloride 0.9% 1, 200 000 ml @ 75 mls/hr IV . [id number] [facility] Rx#:[id number] Oral 658 236 Output: Urine 475 Other: Voiding Method Indwelling Catheter Indwelling Catheter # Bowel Movements 1 - Exam No acute distress, oriented 3. The patient is currently on room air. No respiratory distress. HEENT examination is grossly unremarkable. Mucous membranes are moist. No oral lesions. Neck supple. Full range of motion. No adenopathy thyromegaly or neck vein dis tention. Cardiovascular examination reveals regular rhythm rate. S1-S2 normal. No S3 or S4. No discernible murmur noted. Heart rate 82 bpm. Heart rate is regular. Lungs reveal mostly clear breath sounds. Minimal basilar crackles. Breath sounds equal bilaterally. No rhonchi. No distinct wheezes noted. Saturations are 99 % on room air. Abdomen soft bowel sounds are heard. No masses or tenderness. Extremities are intact. No cyanosis clubbing or edema. Skin is without rash or lesion. Neurologic examination is brief but nonfocal. - Labs CBC & Chem 7: 03/25/24 07:18 03/25/24 07:18 Labs: Abnormal Lab Results - Last 24 Hours (Table) 03/24/24 03/24/24 03/25/24 Range/Units 16:46 20:09 06:05 RBC (3.80-5.40) m/uL Hgb (11.4-16.0) gm/dL Hct (34.0-46.0) % MCHC (31.0-37.0) g/dL RDW (11.5-15.5) % Lymphocytes # (1.0-4.8) k/uL Chloride (98-107) mmol/L Carbon Dioxide (22-30) mmol/L BUN (7-17) mg/dL Creatinine (0.52-1.04) mg/dL POC Glucose (mg/dL) 128 H 139 H 160 H (70-110) mg/dL Calcium (8.4-10.2) mg/dL Total Protein (6.3-8.2) g/dL Albumin (3.5-5.0) g/dL 03/25/24 03/25/24 Range/Units 07:18 07:18 RBC 2.37 L (3.80-5.40) m/uL Hgb 7.0 L (11.4-16.0) gm/dL Hct 22.9 L (34.0-46.0) % MCHC 30.6 L (31.0-37.0) g/dL RDW 18.8 H (11.5-15.5) % Lymphocytes # 0.7 L (1.0-4.8) k/uL Chloride 114 H (98-107) mmol/L Carbon Dioxide 19 L (22-30) mmol/L BUN 28 H (7-17) mg/dL Creatinine 2.01 H (0.52-1.04) mg/dL POC Glucose (mg/dL) (70-110) mg/dL Calcium 7.3 L (8.4-10.2) mg/dL Total Protein 4.7 L (6.3-8.2) g/dL Albumin 2.1 L (3.5-5.0) g/dL Microbiology - Last 24 Hours (Table) 03/21/24 23:53 Blood Culture - Preliminary Blood 03/21/24 23:38 Blood Culture - Preliminary Blood Assessment and Plan Assessment: Progressive weakness and hypotension secondary to atrial fibrillation with rapid ventricular response, severe hematuria, acute GI bleed. Atrial fibrillation with a rapid ventricular response, anticoagulated with Jeaneth curtis. Acute GI bleed with tarry stools, received 1 unit of packed red blood cells this admission. Acute exacerbation of chronic systolic congestive heart failure. Acute on chronic kidney disease. Chronic microcytic, hypochromic anemia, received iron supplements. Coronary artery disease, with recent PCI/stent to the LAD performed 10/28/2023. History of mild to moderate mitral regurgitation, preserved LV function. History of diabetes mellitus, type II. History of hypothyroidism. Chronic kidney disease stage III. History of hyperlipidemia. Remote history of uterine CA. Poor overall functional performance based on the above-mentioned multiple comorbidities. Recent discharge from the hospital to home as the patient refused subacute rehabilitation. Plan: Plan dated March 24, 2024. We were initially consulted for hypotension, and bradycardia, and the possible need of an ICU bed. Currently, the patient appears relatively stable. We will continue to follow the patient, as needed. Labs, x-rays, medications are reviewed. The patient's prognosis remains guarded. No additional recommendations at this time. We did increase the midodrine up to 3 times a day, and gave the patient some additional fluid yesterday. This seemed to help her blood pressure. Plan dated March 25, 2024. The patient is doing very well. We will continue to follow the patient, and make recommendations. We were initially consulted for hypotension and bradycardia. Both of those issues are no longer issues. She denies any shortness of breath, cough, wheezing, chest tightness, or phlegm production. The patient's overall prognosis remains guarded. She is getting midodrine, 10 mg, 3 times a day. We will continue to follow. Prognosis is guarded. Time with Patient: Less than 30
--- NOTE | 2024-03-25 10:30 | P.PN ---
Subjective Patient is seen in follow-up for acute kidney injury on chronic kidney disease. Renal function stable. Heart rate controlled. Has Streeter catheter. Nonoliguric. No vomiting or diarrhea. Vital signs are stable. General: No acute distress. HEENT: Head exam is unremarkable. LUNGS: No audible rhonchi or wheezes. HEART: Rate and Rhythm are regular. ABDOMEN: Nontender. EXTREMITITES: No edema. Objective - Vital Signs Vital signs: Vital Signs Temp 98.1 F 03/25/24 08:00 Pulse 85 03/25/24 08:00 Resp 16 03/25/24 08:00 BP 126/55 03/25/24 08:00 Pulse Ox 98 03/25/24 08:00 FiO2 Intake & Output 03/24/24 03/25/24 03/25/24 18:59 06:59 18:59 Intake Total 858 236 225 Output Total 475 Balance 383 236 225 Weight 67.9 kg Intake: Intake, IV Titration 200 225 Amount Sodium Chloride 0.9% 1, 200 225 000 ml @ 75 mls/hr IV . [id number] [facility] Rx#:[id number] Oral 658 236 Output: Urine 475 Other: Voiding Method Indwelling Catheter Indwelling Catheter Indwelling Catheter # Bowel Movements 1 - Labs CBC & Chem 7: 03/25/24 07:18 03/25/24 07:18 Labs: Abnormal Lab Results - Last 24 Hours (Table) 03/24/24 03/24/24 03/25/24 Range/Units 16:46 20:09 06:05 RBC (3.80-5.40) m/uL Hgb (11.4-16.0) gm/dL Hct (34.0-46.0) % MCHC (31.0-37.0) g/dL RDW (11.5-15.5) % Lymphocytes # (1.0-4.8) k/uL Chloride (98-107) mmol/L Carbon Dioxide (22-30) mmol/L BUN (7-17) mg/dL Creatinine (0.52-1.04) mg/dL POC Glucose (mg/dL) 128 H 139 H 160 H (70-110) mg/dL Calcium (8.4-10.2) mg/dL Total Protein (6.3-8.2) g/dL Albumin (3.5-5.0) g/dL 03/25/24 03/25/24 Range/Units 07:18 07:18 RBC 2.37 L (3.80-5.40) m/uL Hgb 7.0 L (11.4-16.0) gm/dL Hct 22.9 L (34.0-46.0) % MCHC 30.6 L (31.0-37.0) g/dL RDW 18.8 H (11.5-15.5) % Lymphocytes # 0.7 L (1.0-4.8) k/uL Chloride 114 H (98-107) mmol/L Carbon Dioxide 19 L (22-30) mmol/L BUN 28 H (7-17) mg/dL Creatinine 2.01 H (0.52-1.04) mg/dL POC Glucose (mg/dL) (70-110) mg/dL Calcium 7.3 L (8.4-10.2) mg/dL Total Protein 4.7 L (6.3-8.2) g/dL Albumin 2.1 L (3.5-5.0) g/dL Microbiology - Last 24 Hours (Table) 03/21/24 23:53 Blood Culture - Preliminary Blood 03/21/24 23:38 Blood Culture - Preliminary Blood Assessment and Plan Plan: Assessment: 1. Acute kidney injury secondary to ATN secondary to severe sepsis. Renal function improved from admission. Creatinine 2.01 today. 2. Chronic kidney disease stage IIIb with baseline creatinine 1.6-1.8. 3. 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 CT scan showed possible chronic hydronephrosis and concern for bladder neoplasm vs blood clots. Urology following. 4. A-fib with RVR. On metoprolol. Status post amiodarone drip. 5. Acute blood loss anemia status post blood transfusion. On Aranesp. Denies any active bleeding. 6. Hypokalemia from saline diuresis. Replaced. Better. 7. Metabolic acidosis secondary to acute kidney injury and IV fluids maintained on oral bicarb. Plan: Change IV fluids to LR at 50 cc an hour. Replace potassium. Encouraged oral intake. Maintain Streeter catheter. Hold SGLT2 inhibitor due to acute UTI. Continue to monitor renal function and urine output.
--- NOTE | 2024-03-25 10:41 | P.CONS ---
History of Present Illness - Reason for Consult Consult date: 03/24/24 Cystitis Requesting physician: Clive Weathers - Chief Complaint Weakness x few days - History of Present Illness Patient is 83-year-old female past medical history of atrial fibrillation diabetes mellitus hypertension osteomyelitis recently admitted to the hospital with hematuria and did require cystoscopy urine culture positive for Klebsiella pneumonia for the patient has been treated with Rocephin patient has been brought back to the hospital on 03/21/2024 for evaluation of weakness patient complaining of sore weakness that she has throughout she also reported diarrhea which seem to have been chronic for her patient was noticed to be in A- fib with RVR and subsequently has been admitted to the hospital has been evaluated by cardiology urology nephrology as well as pulmonary services patient on presentation to the hospital has been afebrile and no fever has been recorded subsequently patient was not hypotensive or hypoxic she did have white count 24,000 on admission that has normalized to 4.5 today BMP creatinine has been elevated though trending down patient did have stool for C. difficile on admission that was negative urine has been likely and did shows many WBC clumps and bacteria is moderate however cultures have been negative patient has been treated with ceftriaxone infectious he was consulted today for further management of antibiotic therapy Review of Systems Positive point and negatives has been mentioned in the HPI, complete review of systems was performed and all other systems are negative Past Medical History Past Medical History: Atrial Fibrillation, Diabetes Mellitus, Hypertension, Osteoarthritis (OA) Additional Past Medical History / Comment(s): uterine cancer, incontinent of urine History of Any Multi-Drug Resistant Organisms: None Reported Past Surgical History: No Surgical Hx Reported Additional Past Surgical History / Comment(s): cataract & carpal-tunnel bilat. Past Anesthesia/Blood Transfusion Reactions: No Reported Reaction Past Psychological History: No Psychological Hx Reported Smoking Status: Never smoker Past Alcohol Use History: None Reported Past Drug Use History: None Reported - Past Family History Mother Family Medical History: Coronary Artery Disease (CAD), Diabetes Mellitus, Hypertension, Mitral Valve Prolapse (MVP) Father Family Medical History: Hypertension Additional Family Medical History / Comment(s): father hip surgery Medications and Allergies Home Medications Medication Instructions Recorded Confirmed Type Apixaban [Eliquis] 2.5 mg PO BID #60 tab 12/03/23 03/22/24 Rx Atorvastatin [Lipitor] 20 mg PO DAILY #30 tab 12/03/23 03/22/24 Rx Levothyroxine Sodium 25 mcg PO DAILY #30 tab 12/03/23 03/22/24 Rx Cetirizine HCl [Zyrtec] 10 mg PO DAILY PRN 03/04/24 03/22/24 History Clopidogrel [Plavix] 75 mg PO DAILY 03/04/24 03/22/24 History Empagliflozin [Jardiance] 10 mg PO HS 03/04/24 03/22/24 History Furosemide [Lasix] 40 mg PO HS 03/04/24 03/22/24 History Isosorbide Mononitrate ER [Imdur] 15 mg PO DAILY 03/04/24 03/22/24 History Midodrine [ProAmatine] 5 mg PO TID 03/04/24 03/22/24 History Semaglutide [Rybelsus] 7 mg PO DAILY 03/04/24 03/22/24 History Verapamil Sr [Isoptin Sr] 120 mg PO DAILY 03/04/24 03/22/24 History diphenhydrAMINE HCL [Benadryl] 50 mg PO DAILY PRN 03/04/24 03/22/24 History Acetaminophen Tab [Tylenol] 500 mg PO Q6HR PRN tab 03/16/24 03/22/24 Rx Aspirin 81 mg PO DAILY tab 03/16/24 03/22/24 Rx Benzonatate [Tessalon Perle] 200 mg PO AC-TID #60 capsule 03/16/24 03/22/24 Rx Cefdinir [Omnicef] 300 mg PO DAILY #7 cap 03/16/24 03/22/24 Rx Famotidine [Pepcid] 20 mg PO DAILY #30 tab 03/16/24 03/22/24 Rx Metoprolol Succinate (ER) [Toprol 100 mg PO HS #0 03/16/24 03/22/24 Rx XL] Sodium Bicarbonate Tab 650 mg PO DAILY #30 tab 03/16/24 03/22/24 Rx Albuterol Inhaler [Ventolin 2 puff INHALATION RT-Q6H PRN 03/22/24 03/22/24 History Inhaler] Allergies Allergy/AdvReac Type Severity Reaction Status Date / Time bacitracin Allergy Rash/Hives Verified 03/22/24 10:54 [From Neosporin ([id number])] ibuprofen Allergy Anaphylaxis Verified 03/22/24 10:54 & Rash all over neomycin Allergy Rash/Hives Verified 03/22/24 10:54 [From Neosporin ([id number])] polymyxin B Allergy Rash/Hives Verified 03/22/24 10:54 [From Neosporin ([id number])] Physical Exam Vitals: Vital Signs Temp Pulse Resp BP Pulse Ox 03/24/24 08:00 97.6 F 81 16 95/51 98 03/24/24 03:26 97.8 F 80 17 126/74 100 03/23/24 23:20 98.3 F 83 16 106/53 97 03/23/24 19:38 98 F 70 15 101/55 97 03/23/24 16:00 97.9 F 59 L 16 95/51 100 Intake and Output 03/23/24 03/24/24 03/24/24 22:59 06:59 14:59 Intake Total 245.838 Output Total 550 400 Balance -304.162 -400 Intake: Intake, IV Titration 245.838 Amount Amiodarone 450 mg In 245.838 Dextrose 5% in Water 250 ml @ 0.5 MG/MIN 16.667 mls/hr IV .Q15H [facility] Rx#: [id number] Output: Urine 550 400 Other: Voiding Method Indwelling Catheter Indwelling Catheter Indwelling Catheter GENERAL DESCRIPTION: Elderly female lying in bed, no distress. No tachypnea or accessory muscle of respiration use. HEENT: Shows Pallor , no scleral icterus. Oral mucous membrane is dry. No pharyngeal erythema or thrush NECK: Trachea central, no thyromegaly. LUNGS: Unlabored breathing. Decreased breath sound at the base HEART: S1, S2, regular rate and rhythm. No loud murmur ABDOMEN: Soft, no tenderness , guarding or rigidity, no organomegaly EXTREMITIES: No edema of feet. SKIN: No rash, no masses palpable. NEUROLOGICAL: The patient is awake, alert, oriented x3, mood and affect normal. Results CBC & Chem 7: 03/25/24 07:18 03/25/24 07:18 Labs: Abnormal Lab Results - Last 24 Hours (Table) 03/23/24 03/23/24 03/23/24 Range/Units 14:41 14:41 14:55 RBC 2.58 L (3.80-5.40) m/uL Hgb 7.7 L (11.4-16.0) gm/dL Hct 24.7 L (34.0-46.0) % RDW 19.5 H (11.5-15.5) % Potassium 3.4 L (3.5-5.1) mmol/L POC Glucose (mg/dL) (70-110) mg/dL Procalcitonin 0.17 H (0.02-0.09) ng/mL 03/23/24 Range/Units 20:12 RBC (3.80-5.40) m/uL Hgb (11.4-16.0) gm/dL Hct (34.0-46.0) % RDW (11.5-15.5) % Potassium (3.5-5.1) mmol/L POC Glucose (mg/dL) 133 H (70-110) mg/dL Procalcitonin (0.02-0.09) ng/mL Microbiology - Last 24 Hours (Table) 03/21/24 23:53 Blood Culture - Preliminary Blood 03/21/24 23:38 Blood Culture - Preliminary Blood 03/22/24 09:41 Urine Culture - Final Urine,Voided Assessment and Plan (1) Hemorrhagic cystitis Current Visit: Yes Status: Acute Code(s): N30.91 - CYSTITIS, UNSPECIFIED WITH HEMATURIA SNOMED Code(s): 44687275 (2) UTI (urinary tract infection) Current Visit: Yes Status: Acute Code(s): N39.0 - URINARY TRACT INFECTION, SITE NOT SPECIFIED SNOMED Code(s): 11396089 (3) Leukocytosis Current Visit: Yes Status: Acute Code(s): D72.829 - ELEVATED WHITE BLOOD CELL COUNT, UNSPECIFIED SNOMED Code(s): 664140166 Plan: 1patient presented to hospital with weakness however did not have any fever but did have elevated white count on admission also noted to have significantly positive UA with evidence of moderate bacteria and concerning for cystitis with recent culture positive for Klebsiella however cultures are negative this admission 2-continue with Rocephin keeping in mind overall improvement in her white count if any worsening urinary symptoms develops fever or worsening white count will repeat cultures and adjust antibiotic at that point We will follow on clinical condition and cultures to further adjust medication if needed Thank you for this consultation we will follow the patient along with you Dictation was produced using [employer] dictation software. please excuse any grammatical, word or spelling errors. Time with Patient: Greater than 30
[2024-03-25 11:23] LABS: Glucose,Whole Blood 107 mg/dL (70-110)
[2024-03-25] MEDS: POTASSIUM CHLORIDE ER 20 MEQ TAB.ER PO STA (12:33)
[2024-03-25] MEDS: LACTATED RINGERS 1,000 ML IV SCH (12:33)
--- NOTE | 2024-03-25 13:11 | P.PN ---
Subjective Progress Note Date: 03/25/24 Principal diagnosis: Hematuria with clots Patient has no complaints at this time. The Streeter catheter is essentially clear urine. Objective - Vital Signs Vital signs: Vital Signs Temp 98.3 F 03/25/24 00:00 Pulse 82 03/25/24 04:00 Resp 19 03/25/24 04:00 BP 123/77 03/25/24 04:00 Pulse Ox 99 03/25/24 04:00 FiO2 Intake & Output 03/24/24 03/25/24 03/25/24 18:59 06:59 18:59 Intake Total 858 236 Output Total 475 Balance 383 236 Weight 67.9 kg Intake: Intake, IV Titration 200 Amount Sodium Chloride 0.9% 1, 200 000 ml @ 75 mls/hr IV . [id number] [facility] Rx#:[id number] Oral 658 236 Output: Urine 475 Other: Voiding Method Indwelling Catheter Indwelling Catheter # Bowel Movements 1 - Constitutional General appearance: Present: average body habitus, cooperative, no acute distress - Psychiatric Psychiatric: Present: A&O x's 3 - Labs CBC & Chem 7: 03/25/24 07:18 03/25/24 07:18 Labs: Abnormal Lab Results - Last 24 Hours (Table) 03/24/24 03/24/24 03/25/24 Range/Units 16:46 20:09 06:05 RBC (3.80-5.40) m/uL Hgb (11.4-16.0) gm/dL Hct (34.0-46.0) % MCHC (31.0-37.0) g/dL RDW (11.5-15.5) % Lymphocytes # (1.0-4.8) k/uL POC Glucose (mg/dL) 128 H 139 H 160 H (70-110) mg/dL 03/25/24 Range/Units 07:18 RBC 2.37 L (3.80-5.40) m/uL Hgb 7.0 L (11.4-16.0) gm/dL Hct 22.9 L (34.0-46.0) % MCHC 30.6 L (31.0-37.0) g/dL RDW 18.8 H (11.5-15.5) % Lymphocytes # 0.7 L (1.0-4.8) k/uL POC Glucose (mg/dL) (70-110) mg/dL Microbiology - Last 24 Hours (Table) 03/21/24 23:53 Blood Culture - Preliminary Blood 03/21/24 23:38 Blood Culture - Preliminary Blood Assessment and Plan (1) Gross hematuria Current Visit: Yes Status: Acute Code(s): R31.0 - GROSS HEMATURIA SNOMED Code(s): 084844695 (2) UTI (urinary tract infection) Current Visit: Yes Status: Acute Code(s): N39.0 - URINARY TRACT INFECTION, SITE NOT SPECIFIED SNOMED Code(s): 03004922 Plan: I suggested to Mrs. Alcaraz that her Streeter catheter be removed. She wishes to radha ve it in as she was experiencing urinary urge incontinence prior to admission. I explained to her that prolonged catheterization carries with it the risk of a nosocomial UTI. This risk is increased given that the plan is for her to go to [facility] upon discharge. She ultimately agreed to have the Streeter catheter removed prior to discharge. She should follow-up with us if she experiences tato oing hematuria upon discharge.
--- NOTE | 2024-03-25 14:50 | P.PN ---
Subjective Progress Note Date: 03/25/24 HISTORY OF PRESENTING ILLNESS 83-year-old with past medical history of paroxysmal atrial fibrillation, hyp ertension, dyslipidemia, CKD, chronic diastolic heart failure, last NSTEMI in October 2023 requiring heart cath showing 80% left main stenosis and mid LAD 60 to 70% stenosis with HELP DESK INTERN of LCx. She underwent PCI of left main into LAD. Patient has also had multiple hospital visits with A-fib RVR's past as well as recent visit with anemia and hematuria. Prior echocardiogram 03/05/2024 with EF 65-70%, mild LVH. Patient was dischrged 1 week ago and had been feeling OK however has had continued diarrhea. She states she actually came back to ER secondary to diarrhea however deniea any blood in stool. Does however have severe hematuria which has been persistent despite stopping blood thinners. No chest pain or pressure. found to be Afib with RVR and placed on Amio drip. Lactic acid 5 however improved down to 3 with IVF bolus. Cr also improved. Has chronic R>L LE edema. No fevers or chills. 03/23 patient seen and examined. Patient denies any chest pain or pressure. Her breathing is fairly stable. Her hematuria has mildly improved. Has been receiving IV fluids. Her daughter is asking about possible watchman device which we discussed maybe an option down the road. Patient had lower heart rate into the 40s to 50s and therefore amiodarone was discontinued and additionally had lower blood pressure 74/45. Blood pressure however is has increased. 03/24 She has not been sleeping well. She complains of feeling tired and fatigued. Her blood pressure has been on the lower side and rates on telemetry have been 4060s. She denies any chest pain or pressure. 03/25 She has been feeling okay. Still somewhat fatigued. Heart rates have been controlled. Hemoglobin 7.0, creatinine 2.01, potassium 3.5. PHYSICAL EXAMINATION Vital signs reviewed. Head: Normocephalic. Eyes: Sclerae nonicteric. Neck: Brisk carotid upstroke, no jugular venous distention. Lungs: Poor inspiratory effort. Heart: irregularly irregular, S1-S2, , 2/6 systolic murmur . Abdomen: Soft nontender, positive bowel sounds. Extremities: 1+ edema, Neuro: no focal deficits. Detailed neuro exam was not performed. ASSESSMENT Elevated troponin, likely type II NSTEMI in setting of BOLA, sepsis and anemia Chronic diastolic heart failure, CAD s/p PCI in October 2023. S/p PCI to left main into LAD 4 x 15 mm PRANAY Atrial fibrillation with RVR Acute blood loss anemia with hematuria Possible sepsis CKD Hyperlipidemia Hypothyroidism Questionable medication compliance LE edema likely component of venous insufficency PLAN Continue to monitor blood pressure and heart rates. Continue with current regiment. Hold all anticoagulation, antiplatelets for now. Larger sized stent 4 months ago and less risk of stent thrombosis Transfuse as needed Monitor hematuria, urology recs Further rec to follow Patient with hypotension likely more of a component of sepsis however was mildly bradycardic at the time with heart rates in the 40s to 50s. May have some deg ree of sick sinus syndrome. Patient seen and examined in rounds with Dr. Mosley, plan of care agreed upon. Objective - Vital Signs Vital signs: Vital Signs Temp 98.1 F 03/25/24 08:00 Pulse 85 03/25/24 08:00 Resp 16 03/25/24 08:00 BP 126/55 03/25/24 08:00 Pulse Ox 98 03/25/24 08:00 FiO2 Intake & Output 03/24/24 03/25/24 03/25/24 18:59 06:59 18:59 Intake Total 858 236 225 Output Total 475 500 Balance 383 236 -275 Weight 67.9 kg Intake: Intake, IV Titration 200 225 Amount Sodium Chloride 0.9% 1, 200 225 000 ml @ 75 mls/hr IV . [id number] [facility] Rx#:[id number] Oral 658 236 Output: Urine 475 500 Other: Voiding Method Indwelling Catheter Indwelling Catheter Indwelling Catheter # Bowel Movements 1 - Labs CBC & Chem 7: 03/25/24 07:18 03/25/24 07:18 Labs: Abnormal Lab Results - Last 24 Hours (Table) 03/24/24 03/24/24 03/25/24 Range/Units 16:46 20:09 06:05 RBC (3.80-5.40) m/uL Hgb (11.4-16.0) gm/dL Hct (34.0-46.0) % MCHC (31.0-37.0) g/dL RDW (11.5-15.5) % Lymphocytes # (1.0-4.8) k/uL Chloride (98-107) mmol/L Carbon Dioxide (22-30) mmol/L BUN (7-17) mg/dL Creatinine (0.52-1.04) mg/dL POC Glucose (mg/dL) 128 H 139 H 160 H (70-110) mg/dL Calcium (8.4-10.2) mg/dL Total Protein (6.3-8.2) g/dL Albumin (3.5-5.0) g/dL 03/25/24 03/25/24 Range/Units 07:18 07:18 RBC 2.37 L (3.80-5.40) m/uL Hgb 7.0 L (11.4-16.0) gm/dL Hct 22.9 L (34.0-46.0) % MCHC 30.6 L (31.0-37.0) g/dL RDW 18.8 H (11.5-15.5) % Lymphocytes # 0.7 L (1.0-4.8) k/uL Chloride 114 H (98-107) mmol/L Carbon Dioxide 19 L (22-30) mmol/L BUN 28 H (7-17) mg/dL Creatinine 2.01 H (0.52-1.04) mg/dL POC Glucose (mg/dL) (70-110) mg/dL Calcium 7.3 L (8.4-10.2) mg/dL Total Protein 4.7 L (6.3-8.2) g/dL Albumin 2.1 L (3.5-5.0) g/dL Microbiology - Last 24 Hours (Table) 03/21/24 23:53 Blood Culture - Preliminary Blood 03/21/24 23:38 Blood Culture - Preliminary Blood
--- NOTE | 2024-03-25 15:43 | P.PN ---
Subjective Progress Note Date: 03/25/24 Principal diagnosis: Reason for follow-up is cystitis and leukocytosis Patient is 83-year-old female past medical history of atrial fibrillation diabetes mellitus hypertension osteomyelitis recently admitted to the hospital with hematuria and did require cystoscopy urine culture positive for Klebsiella pneumonia now presenting back to the hospital with weakness did h ave elevated white count and positive evaluation however culture has been negative. On today's evaluation that is 03/25/2024, Patient is afebrile patient is currently on room air and denies having any shortness of breath, the patient denies any chest pain did have occasional cough, the patient denies any nausea vomiting did not have any abdominal pain and no diarrhea. Patient white count is 4.5, creatinine is 2.01 blood urine culture has been negative Objective - Vital Signs Vital signs: Vital Signs Temp 98.1 F 03/25/24 08:00 Pulse 96 03/25/24 14:00 Resp 16 03/25/24 14:00 BP 124/67 03/25/24 12:00 Pulse Ox 99 03/25/24 12:00 FiO2 Intake & Output 03/24/24 03/25/24 03/25/24 18:59 06:59 18:59 Intake Total 858 236 275 Output Total 475 500 Balance 383 236 -225 Weight 67.9 kg Intake: Intake, IV Titration 200 225 Amount Sodium Chloride 0.9% 1, 200 225 000 ml @ 75 mls/hr IV . [id number] [facility] Rx#:[id number] Oral 658 236 50 Output: Urine 475 500 Other: Voiding Method Indwelling Catheter Indwelling Catheter Indwelling Catheter # Bowel Movements 1 - Exam GENERAL DESCRIPTION: An elderly female lying in bed in no distress RESPIRATORY SYSTEM: Unlabored breathing , decreased breath sounds at bases HEART: S1 S2 regular rate and rhythm , ABDOMEN: Soft , no tenderness EXTREMITIES: No edema feet - Labs CBC & Chem 7: 03/25/24 07:18 03/25/24 07:18 Labs: Abnormal Lab Results - Last 24 Hours (Table) 03/24/24 03/24/24 03/25/24 Range/Units 16:46 20:09 06:05 RBC (3.80-5.40) m/uL Hgb (11.4-16.0) gm/dL Hct (34.0-46.0) % MCHC (31.0-37.0) g/dL RDW (11.5-15.5) % Lymphocytes # (1.0-4.8) k/uL Chloride (98-107) mmol/L Carbon Dioxide (22-30) mmol/L BUN (7-17) mg/dL Creatinine (0.52-1.04) mg/dL POC Glucose (mg/dL) 128 H 139 H 160 H (70-110) mg/dL Calcium (8.4-10.2) mg/dL Total Protein (6.3-8.2) g/dL Albumin (3.5-5.0) g/dL 03/25/24 03/25/24 Range/Units 07:18 07:18 RBC 2.37 L (3.80-5.40) m/uL Hgb 7.0 L (11.4-16.0) gm/dL Hct 22.9 L (34.0-46.0) % MCHC 30.6 L (31.0-37.0) g/dL RDW 18.8 H (11.5-15.5) % Lymphocytes # 0.7 L (1.0-4.8) k/uL Chloride 114 H (98-107) mmol/L Carbon Dioxide 19 L (22-30) mmol/L BUN 28 H (7-17) mg/dL Creatinine 2.01 H (0.52-1.04) mg/dL POC Glucose (mg/dL) (70-110) mg/dL Calcium 7.3 L (8.4-10.2) mg/dL Total Protein 4.7 L (6.3-8.2) g/dL Albumin 2.1 L (3.5-5.0) g/dL Microbiology - Last 24 Hours (Table) 03/21/24 23:53 Blood Culture - Preliminary Blood 03/21/24 23:38 Blood Culture - Preliminary Blood Assessment and Plan (1) Hemorrhagic cystitis Current Visit: Yes Status: Acute Code(s): N30.91 - CYSTITIS, UNSPECIFIED WITH HEMATURIA SNOMED Code(s): 49479174 (2) UTI (urinary tract infection) Current Visit: Yes Status: Acute Code(s): N39.0 - URINARY TRACT INFECTION, SITE NOT SPECIFIED SNOMED Code(s): 39859850 (3) Leukocytosis Current Visit: Yes Status: Acute Code(s): D72.829 - ELEVATED WHITE BLOOD CELL COUNT, UNSPECIFIED SNOMED Code(s): 401596946 Plan: 1patient presented to hospital with weakness however did not have any fever but did have elevated white count on admission also noted to have significantly positive UA with evidence of moderate bacteria and concerning for cystitis with recent culture positive for Klebsiella however cultures are negative this admission 2-patient did have overall improvement her white count and remains to be afebrile, patient to continue with Rocephin and monitor clinical course closely Dictation was produced using [employer] dictation software. please excuse any grammatical, word or spelling errors. Time with Patient: Less than 30
[2024-03-25 16:25] LABS: Glucose,Whole Blood 187 mg/dL (70-110)
[2024-03-25 19:50] LABS: Glucose,Whole Blood 139 mg/dL (70-110)
[2024-03-25] MEDS: SODIUM BICARBONATE TAB 650 MG TAB PO SCH (20:43)
[2024-03-26 05:59] LABS: Glucose,Whole Blood 97 mg/dL (70-110)
--- NOTE | 2024-03-26 08:45 | P.PN ---
Subjective Progress Note Date: 03/26/24 hemorrhagic cystits. Urine remains clear. asx Objective - Vital Signs Vital signs: Vital Signs Temp 98.0 F 03/26/24 08:25 Pulse 95 03/26/24 08:25 Resp 18 03/26/24 08:25 BP 124/76 03/26/24 08:25 Pulse Ox 99 03/26/24 08:25 FiO2 Intake & Output 03/25/24 03/26/24 03/26/24 18:59 06:59 18:59 Intake Total 275 1080 Output Total 500 700 Balance -225 380 Weight 69.3 kg Intake: Intake, IV Titration 225 Amount Sodium Chloride 0.9% 1, 225 000 ml @ 75 mls/hr IV . [id number] [facility] Rx#:[id number] Oral 50 1080 Output: Urine 500 700 Other: Voiding Method Indwelling Catheter Indwelling Catheter - Labs CBC & Chem 7: 03/25/24 07:18 03/25/24 07:18 Labs: Abnormal Lab Results - Last 24 Hours (Table) 03/25/24 03/25/24 03/25/24 Range/Units 07:18 16:22 19:47 Chloride 114 H (98-107) mmol/L Carbon Dioxide 19 L (22-30) mmol/L BUN 28 H (7-17) mg/dL Creatinine 2.01 H (0.52-1.04) mg/dL POC Glucose (mg/dL) 187 H 139 H (70-110) mg/dL Calcium 7.3 L (8.4-10.2) mg/dL Total Protein 4.7 L (6.3-8.2) g/dL Albumin 2.1 L (3.5-5.0) g/dL Microbiology - Last 24 Hours (Table) 03/21/24 23:53 Blood Culture - Preliminary Blood 03/21/24 23:38 Blood Culture - Preliminary Blood Assessment and Plan Assessment: Impression: Hemorrhagic cystitis. Plan: the catheter can be removed whenever stable medically
--- NOTE | 2024-03-26 10:50 | P.PN ---
Subjective Patient is seen in follow-up for acute kidney injury on chronic kidney disease. Renal function stable with creatinine 2.01 yesterday. Hemodynamically stable. Has Streeter catheter. Nonoliguric. No vomiting. Does have loose stools. Vital signs are stable. General: No acute distress. HEENT: Head exam is unremarkable. LUNGS: No audible rhonchi or wheezes. HEART: Rate and Rhythm are regular. ABDOMEN: Nontender. EXTREMITITES: No edema. Objective - Vital Signs Vital signs: Vital Signs Temp 98.0 F 03/26/24 08:25 Pulse 95 03/26/24 08:25 Resp 18 03/26/24 08:25 BP 124/76 03/26/24 08:25 Pulse Ox 99 03/26/24 08:25 FiO2 Intake & Output 03/25/24 03/26/24 03/26/24 18:59 06:59 18:59 Intake Total 275 1080 660 Output Total 500 700 Balance -225 380 660 Weight 69.3 kg Intake: Intake, IV Titration 225 Amount Sodium Chloride 0.9% 1, 225 000 ml @ 75 mls/hr IV . [id number] [facility] Rx#:[id number] Oral 50 1080 660 Output: Urine 500 700 Other: Voiding Method Indwelling Catheter Indwelling Catheter Indwelling Catheter - Labs CBC & Chem 7: 03/25/24 07:18 03/25/24 07:18 Labs: Abnormal Lab Results - Last 24 Hours (Table) 03/25/24 03/25/24 Range/Units 16:22 19:47 POC Glucose (mg/dL) 187 H 139 H (70-110) mg/dL Microbiology - Last 24 Hours (Table) 03/21/24 23:53 Blood Culture - Preliminary Blood 03/21/24 23:38 Blood Culture - Preliminary Blood Assessment and Plan Plan: Assessment: 1. Acute kidney injury secondary to ATN secondary to severe sepsis. Renal function improved from admission. Creatinine 2.01 yesterday. 2. Chronic kidney disease stage IIIb with baseline creatinine 1.6-1.8. 3. 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 CT scan showed possible chronic hydronephrosis and concern for bladder neoplasm vs blood clots. Urology following. 4. A-fib with RVR. On metoprolol. Status post amiodarone drip. 5. Acute blood loss anemia status post blood transfusion. On Aranesp. Denies any active bleeding. 6. Hypokalemia from saline diuresis. Replaced. 7. Metabolic acidosis secondary to acute kidney injury and IV fluids maintained on oral bicarb. Plan: Maintain gentle IV hydration. Encouraged oral intake. Maintain Streeter catheter. Hold SGLT2 inhibitor due to acute UTI. Continue to monitor renal function and urine output. Hold midodrine for systolic blood pressure greater than 110.
[2024-03-26 11:10] LABS: Glucose,Whole Blood 100 mg/dL (70-110)
--- NOTE | 2024-03-26 12:28 | P.PN ---
Subjective Progress Note Date: 03/26/24 HISTORY OF PRESENTING ILLNESS 83-year-old with past medical history of paroxysmal atrial fibrillation, hyp ertension, dyslipidemia, CKD, chronic diastolic heart failure, last NSTEMI in October 2023 requiring heart cath showing 80% left main stenosis and mid LAD 60 to 70% stenosis with STORY WRITER of LCx. She underwent PCI of left main into LAD. Patient has also had multiple hospital visits with A-fib RVR's past as well as recent visit with anemia and hematuria. Prior echocardiogram 03/05/2024 with EF 65-70%, mild LVH. Patient was dischrged 1 week ago and had been feeling OK however has had continued diarrhea. She states she actually came back to ER secondary to diarrhea however deniea any blood in stool. Does however have severe hematuria which has been persistent despite stopping blood thinners. No chest pain or pressure. found to be Afib with RVR and placed on Amio drip. Lactic acid 5 however improved down to 3 with IVF bolus. Cr also improved. Has chronic R>L LE edema. No fevers or chills. 03/23 patient seen and examined. Patient denies any chest pain or pressure. Her breathing is fairly stable. Her hematuria has mildly improved. Has been receiving IV fluids. Her daughter is asking about possible watchman device which we discussed maybe an option down the road. Patient had lower heart rate into the 40s to 50s and therefore amiodarone was discontinued and additionally had lower blood pressure 74/45. Blood pressure however is has increased. 03/24 She has not been sleeping well. She complains of feeling tired and fatigued. Her blood pressure has been on the lower side and rates on telemetry have been 4060s. She denies any chest pain or pressure. 03/25 She has been feeling okay. Still somewhat fatigued. Heart rates have been controlled. Hemoglobin 7.0, creatinine 2.01, potassium 3.5. 03/26 Patient's urine has cleared and she is cleared to have her Streeter catheter removed. Patient is complaining of diarrhea this morning. She is followed by infectious disease for antibiotics. Blood pressure 124/76, heart rate 95, pulse ox 99% on room air. No repeat blood work is available at the time of this dictation. PHYSICAL EXAMINATION Vital signs reviewed. Head: Normocephalic. Eyes: Sclerae nonicteric. Neck: Brisk carotid upstroke, no jugular venous distention. Lungs: Poor inspiratory effort. Heart: irregularly irregular, S1-S2, , 2/6 systolic murmur . Abdomen: Soft nontender, positive bowel sounds. Extremities: 1+ edema, Neuro: no focal deficits. Detailed neuro exam was not performed. ASSESSMENT Elevated troponin, likely type II NSTEMI in setting of BOLA, sepsis and anemia Chronic diastolic heart failure, CAD s/p PCI in October 2023. S/p PCI to left main into LAD 4 x 15 mm PRANAY Atrial fibrillation with RVR Acute blood loss anemia with hematuria Possible sepsis CKD Hyperlipidemia Hypothyroidism Questionable medication compliance LE edema likely component of venous insufficency Hemorrhagic cystitis PLAN Continue to monitor blood pressure and heart rates. Continue with current regiment. Hold all anticoagulation, antiplatelets for now. Larger sized stent 4 months ago and less risk of stent thrombosis Transfuse as needed Patient with hypotension likely more of a component of sepsis however was mildly bradycardic at the time with heart rates in the 40s to 50s. May have some degree of sick sinus syndrome. Continue telemetry monitoring Nurse practitioner note has been reviewed, I agree with documented findings and plan of care. Patient was seen and examined. Objective - Vital Signs Vital signs: Vital Signs Temp 98.0 F 03/26/24 08:25 Pulse 95 03/26/24 08:25 Resp 18 03/26/24 08:25 BP 124/76 03/26/24 08:25 Pulse Ox 99 03/26/24 08:25 FiO2 Intake & Output 03/25/24 03/26/24 03/26/24 18:59 06:59 18:59 Intake Total 275 1080 Output Total 500 700 Balance -225 380 Weight 69.3 kg Intake: Intake, IV Titration 225 Amount Sodium Chloride 0.9% 1, 225 000 ml @ 75 mls/hr IV . [id number] [facility] Rx#:[id number] Oral 50 1080 Output: Urine 500 700 Other: Voiding Method Indwelling Catheter Indwelling Catheter - Labs CBC & Chem 7: 03/25/24 07:18 03/25/24 07:18 Labs: Abnormal Lab Results - Last 24 Hours (Table) 03/25/24 03/25/24 Range/Units 16:22 19:47 POC Glucose (mg/dL) 187 H 139 H (70-110) mg/dL Microbiology - Last 24 Hours (Table) 03/21/24 23:53 Blood Culture - Preliminary Blood 03/21/24 23:38 Blood Culture - Preliminary Blood
--- NOTE | 2024-03-26 13:36 | P.PN ---
Subjective Progress Note Date: 03/26/24 83-year-old with multimedical problems was hospitalized 2 weeks ago for over 10 days with multiple complications related to sepsis along with hypertension along with severe aggressive hemorrhagic cystitis and hematuria require multiple units of blood transfusion also require indwelling catheter and ended up finally going for an cystoscopy and fulguration with three-way's catheter to flush the bladder for over 48 hours before finally bleeding stopped. Patient was in the hospital for several days after the bleeding stopped completely with the recommendation to resume her anticoagulation for A-fib and for angioplasty and stent placement. With all the comorbidity and the complication she had patient and family absolutely refused to go anywhere but home the plan originally is for her to be home with physical therapy and home care with the help of family but she was supposed to go with family member who apparently had some medical background training to help her out to live in the [facility] for a few weeks till her symptoms improve and gain her independency. Also patient was supposed to have 2 follow-up appointment this week one of them in our office supposedly yesterday and 1 at the urology office this week she did not make it to both. She presented to the emergency department late in the evening because was very weak she passed out and reported having diarrhea with black stool along with severe hematuria with worsening incontinence. Patient also developed to have A- fib with RVR apparently told the ER that has not taking her antibiotic for the last 2 days because just not feeling well. She denies any injury from her weakness or presyncope and again patient is not doing any anticoagulation. As soon as her Streeter catheter went and patient had over 400 cc of hematuria with clear blood followed by 200 more hemoglobin is down already 7.3 and within couple hours dropped down to 6.9. She is in acute kidney failure and lactic acid up to 2.6 and UA had a pure hematuria at this point. Initiate patient at the emergency department on Rocephin she developed to have very rapid ventricular response despite using metoprolol 100 mg a day patient with recommendation of cardiology initiate amiodarone drip. Remain in the ER but to be transferred to the ICU with recurrent complication of medical problems. Can you refer to my history and physical from last admission for further more patient medical history. 03/23/2024: Patient is feeling much better today, slight improvement on her Kidney test creatinine has improved some, hemoglobin is up to 8 and the drop again down slight bit. 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 Blood pressure becomes slightly below patient was observed treated with fluid challenge and IV hydration had improved blood pressure slightly repeat lactic acid came back at 1.4 patient is not septic at this point there is no positive culture so far and this is probably still more volume problem than infectious problem. 03/24. Patient seen and examined. Patient blood pressure was low but patient currently asymptomatic. Denies lightheaded or dizziness. Denies any chest pain. Denies any shortness of breath 03/25. Patient seen and examined. Blood work this morning showed WBC 4.5, hemoglobin 7, platelet count 294, sodium is 130, potassium 3.5 03/26. Patient seen and examined. Complaining of diarrhea. No swelling of lower extremities REVIEW OF SYSTEMS: CONSTITUTIONAL: No fever, no malaise,. CARDIOVASCULAR: No chest pain, no palpitations, no syncope. PULMONARY: No shortness of breath, no cough, GASTROINTESTINAL: No diarrhea, no nausea, no vomiting, no abdominal pain. NEUROLOGICAL: No headaches, no weakness, PHYSICAL EXAMINATION: GENERAL: The patient is alert, chronically ill looking HEENT: Pupils are round and equally reacting to light. EOMI. No scleral icterus. No conjunctival pallor. Normocephalic, atraumatic. No pharyngeal erythema. No thyromegaly. CARDIOVASCULAR: S1 and S2 present. No murmurs, rubs, or gallops. PULMONARY: Chest is clear to auscultation, no wheezing or crackles. ABDOMEN: Soft, nontender, nondistended, normoactive bowel sounds. No palpable organomegaly. MUSCULOSKELETAL: No joint swelling or deformity. EXTREMITIES: No cyanosis, clubbing NEUROLOGICAL: Gross neurological examination did not reveal any focal deficits. SKIN: No rashes. Assessment and plan _Severe hematuria: Combination of radiation cystitis along with hemorrhagic infectious cystitis remain on antibiotics was irrigated by urology Continue IV Rocephin, urology following ID consulted _Acute GI bleed: Monitor CBC IV Protonix no need for EGD. _A-fib with RVR: Was placed on amiodarone ip initially decided beta-nereyda and calcium channel nereyda and became quite bit bradycardic amiodarone was stopped. Continue Toprol _Acute kidney injury: Monitor renal functions, continue IV fluids, nephrology following _Acute blood loss anemia: Monitor CBC, _Hypotension: Monitor vital signs, continue midodrine _Sepsis and UTI: With her urine culture from last time with Klebsiella susceptible to many antibiotics patient will be on Rocephin for now till the culture again done and finalized this time. ID following _Atherosclerotic heart disease: Post PCI and stent placement from October has been seeing cardiology she needs more assurance probably family need to be more involved making sure she is taking her medication on time and that she does not run out of medication. Continue home meds _Chronic systolic congestive heart failure: Not been able to keep up with her current medication will watch symptoms carefully and try to avoid fluid overload. _Type 2 diabetes: Has been doing well resume insulin with sliding scale coverage and was on Jardiance, continue medication. _Hyperlipidemia: Continue atorvastatin 20 mg a day. _Hypothyroidism: Continue levothyroxine 25 mcg daily. Labs and medication were reviewed.. Continue same treatment. Continue with symptomatic treatment. Resume home medication. Monitor labs and vitals. DVT and GI prophylaxis. Further recommendations as per clinical course of the patient Dictation was produced using [employer] dictation software. please excuse any grammatical, word or spelling errors. Objective - Vital Signs Vital signs: Vital Signs Temp 98.3 F 03/26/24 12:38 Pulse 57 L 03/26/24 12:38 Resp 18 03/26/24 12:38 BP 101/51 03/26/24 12:38 Pulse Ox 95 03/26/24 12:38 FiO2 Intake & Output 03/25/24 03/26/24 03/26/24 18:59 06:59 18:59 Intake Total 275 1080 660 Output Total 500 700 450 Balance -225 380 210 Weight 69.3 kg Intake: Intake, IV Titration 225 Amount Sodium Chloride 0.9% 1, 225 000 ml @ 75 mls/hr IV . [id number] [facility] Rx#:[id number] Oral 50 1080 660 Output: Urine 500 700 450 Other: Voiding Method Indwelling Catheter Indwelling Catheter Indwelling Catheter - Labs CBC & Chem 7: 03/25/24 07:18 03/25/24 07:18 Labs: Abnormal Lab Results - Last 24 Hours (Table) 03/25/24 03/25/24 Range/Units 16:22 19:47 POC Glucose (mg/dL) 187 H 139 H (70-110) mg/dL Microbiology - Last 24 Hours (Table) 03/21/24 23:53 Blood Culture - Preliminary Blood 03/21/24 23:38 Blood Culture - Preliminary Blood
[2024-03-26 14:17] LABS: Anisocytosis Slight; HCT 26.2 % (34.0-46.0); HGB 7.4 gm/dL (11.4-16.0); Hypochromasia Marked; MCH 28.7 pg (25.0-35.0); MCHC 28.5 g/dL (31.0-37.0); MCV 100.9 fL (80.0-100.0); Macrocytosis Moderate; Mean Platelet Volume 7.3; Platelet Count 283 k/uL (150-450); Poikilocytosis Slight; RBC 2.59 m/uL (3.80-5.40); RDW 18.2 % (11.5-15.5); WBC 4.6 k/uL (3.8-10.6)
[2024-03-26 16:14] LABS: Glucose,Whole Blood 117 mg/dL (70-110)
[2024-03-26 21:11] LABS: Glucose,Whole Blood 112 mg/dL (70-110)
[2024-03-26] MEDS: PANTOPRAZOLE 40 MG/10 ML VIAL IVP SCH (21:38)
[2024-03-27 05:54] LABS: Glucose,Whole Blood 118 mg/dL (70-110)
[2024-03-27 09:52] VITALS: BMI 28.8
--- NOTE | 2024-03-27 10:11 | P.PN ---
Subjective Patient is seen in follow-up for acute kidney injury on chronic kidney disease. Renal function stable with creatinine 2.01 dated March 25, 2024. Hemodynamically stable. Has Streeter catheter. Nonoliguric. No vomiting. No active complaints. Vital signs are stable. General: No acute distress. HEENT: Head exam is unremarkable. LUNGS: No audible rhonchi or wheezes. HEART: Rate and Rhythm are regular. ABDOMEN: Nontender. EXTREMITITES: No edema. Objective - Vital Signs Vital signs: Vital Signs Temp 98.0 F 03/27/24 09:58 Pulse 83 03/27/24 09:58 Resp 18 03/27/24 09:58 BP 128/77 03/27/24 09:58 Pulse Ox 98 03/27/24 09:58 FiO2 Intake & Output 03/26/24 03/27/24 03/27/24 18:59 06:59 18:59 Intake Total 1999 240 118 Output Total 900 1000 Balance 1100 -760 118 Weight 69.3 kg 69.3 kg Intake: Oral 1999 240 118 Output: Urine 900 1000 Other: Voiding Method Indwelling Catheter Indwelling Catheter # Bowel Movements 1 - Labs CBC & Chem 7: 03/26/24 14:01 03/25/24 07:18 Labs: Abnormal Lab Results - Last 24 Hours (Table) 03/26/24 03/26/24 03/26/24 Range/Units 14:01 16:13 21:00 RBC 2.59 L (3.80-5.40) m/uL Hgb 7.4 L (11.4-16.0) gm/dL Hct 26.2 L (34.0-46.0) % MCV 100.9 H (80.0-100.0) fL MCHC 28.5 L (31.0-37.0) g/dL RDW 18.2 H (11.5-15.5) % POC Glucose (mg/dL) 117 H 112 H (70-110) mg/dL 03/27/24 Range/Units 05:46 RBC (3.80-5.40) m/uL Hgb (11.4-16.0) gm/dL Hct (34.0-46.0) % MCV (80.0-100.0) fL MCHC (31.0-37.0) g/dL RDW (11.5-15.5) % POC Glucose (mg/dL) 118 H (70-110) mg/dL Assessment and Plan Plan: Assessment: 1. Acute kidney injury secondary to ATN secondary to severe sepsis. Renal function improved from admission. Creatinine 2.01 dated March 25, 2024. 2. Chronic kidney disease stage IIIb with baseline creatinine 1.6-1.8. 3. 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 CT scan showed possible chronic hydronephrosis and concern for bladder neoplasm vs blood clots. Urology following. 4. A-fib with RVR. On metoprolol. Status post amiodarone drip. 5. Acute blood loss anemia status post blood transfusion. On Aranesp. Denies any active bleeding. 6. Hypokalemia from saline diuresis. Replaced. 7. Metabolic acidosis secondary to acute kidney injury and IV fluids maintained on oral bicarb. Plan: Maintain gentle IV hydration. Encouraged oral intake. Maintain Streeter catheter. Hold SGLT2 inhibitor due to acute UTI. Continue to monitor renal function and urine output. Hold midodrine for systolic blood pressure greater than 110.
[2024-03-27 10:26] LABS: Anisocytosis Slight; Basophils % (A) 1 %; Eosinophils # (A) 0.2 k/uL (0-0.7); Eosinophils % (A) 4 %; HCT 26.3 % (34.0-46.0); HGB 8.3 gm/dL (11.4-16.0); Hypochromasia Marked; Lymphocytes # (A) 0.9 k/uL (1.0-4.8); Lymphocytes % (A) 20 %; MCHC 31.5 g/dL (31.0-37.0); Macrocytosis Slight; Mean Platelet Volume 7.5; Monocytes # (A) 0.4 k/uL (0-1.0); Monocytes % (A) 8 %; Neutrophils # (A) 3.1 k/uL (1.3-7.7); Neutrophils % (A) 66 %; Platelet Count 304 k/uL (150-450); Poikilocytosis Slight; RBC 2.76 m/uL (3.80-5.40); WBC 4.7 k/uL (3.8-10.6)
[2024-03-27 10:32] LABS: MCV 95.2 fL (80.0-100.0)
[2024-03-27 10:37] LABS: African American GFR (CKD) 36 (>60 ml/min/1.73 sqM); Anion Gap 3 mmol/L; Blood Urea Nitrogen 22 mg/dL (7-17); Calcium 7.6 mg/dL (8.4-10.2); Carbon Dioxide 21 mmol/L (22-30); Chloride 113 mmol/L (98-107); Glucose 85 mg/dL (74-99); Magnesium 1.9 mg/dL (1.6-2.3); Non-African American GFR(CKD) 31 (>60 ml/min/1.73 sqM); Potassium 3.7 mmol/L (3.5-5.1); Sodium 137 mmol/L (137-145)
[2024-03-27 11:36] LABS: Glucose,Whole Blood 118 mg/dL (70-110)
--- NOTE | 2024-03-27 13:44 | P.PN ---
Subjective Progress Note Date: 03/27/24 HISTORY OF PRESENTING ILLNESS 83-year-old with past medical history of paroxysmal atrial fibrillation, hyp ertension, dyslipidemia, CKD, chronic diastolic heart failure, last NSTEMI in October 2023 requiring heart cath showing 80% left main stenosis and mid LAD 60 to 70% stenosis with FLANGE TURNER of LCx. She underwent PCI of left main into LAD. Patient has also had multiple hospital visits with A-fib RVR's past as well as recent visit with anemia and hematuria. Prior echocardiogram 03/05/2024 with EF 65-70%, mild LVH. Patient was dischrged 1 week ago and had been feeling OK however has had continued diarrhea. She states she actually came back to ER secondary to diarrhea however deniea any blood in stool. Does however have severe hematuria which has been persistent despite stopping blood thinners. No chest pain or pressure. found to be Afib with RVR and placed on Amio drip. Lactic acid 5 however improved down to 3 with IVF bolus. Cr also improved. Has chronic R>L LE edema. No fevers or chills. 03/23 patient seen and examined. Patient denies any chest pain or pressure. Her breathing is fairly stable. Her hematuria has mildly improved. Has been receiving IV fluids. Her daughter is asking about possible watchman device which we discussed maybe an option down the road. Patient had lower heart rate into the 40s to 50s and therefore amiodarone was discontinued and additionally had lower blood pressure 74/45. Blood pressure however is has increased. 03/24 She has not been sleeping well. She complains of feeling tired and fatigued. Her blood pressure has been on the lower side and rates on telemetry have been 4060s. She denies any chest pain or pressure. 03/25 She has been feeling okay. Still somewhat fatigued. Heart rates have been controlled. Hemoglobin 7.0, creatinine 2.01, potassium 3.5. 03/26 Patient's urine has cleared and she is cleared to have her Streeter catheter removed. Patient is complaining of diarrhea this morning. She is followed by infectious disease for antibiotics. Blood pressure 124/76, heart rate 95, pulse ox 99% on room air. No repeat blood work is available at the time of this dictation. 03/27 Patient remains in atrial fibrillation with controlled rate, heart rate is 82, blood pressure 130/67, pulse ox 98% on room air. No hematuria. We will check with urology if we can resume patient on aspirin for now. Hemoglobin is stable at 8.3. BUN 22 creatinine 1.55. PHYSICAL EXAMINATION Vital signs reviewed. Head: Normocephalic. Eyes: Sclerae nonicteric. Neck: Brisk carotid upstroke, no jugular venous distention. Lungs: Poor inspiratory effort. Heart: irregularly irregular, S1-S2, , 2/6 systolic murmur . Abdomen: Soft nontender, positive bowel sounds. Extremities: 1+ edema, Neuro: no focal deficits. Detailed neuro exam was not performed. ASSESSMENT Elevated troponin, likely type II NSTEMI in setting of BOLA, sepsis and anemia Chronic diastolic heart failure, CAD s/p PCI in October 2023. S/p PCI to left main into LAD 4 x 15 mm PRANAY Atrial fibrillation with RVR Acute blood loss anemia with hematuria Possible sepsis CKD Hyperlipidemia Hypothyroidism Questionable medication compliance LE edema likely component of venous insufficency Hemorrhagic cystitis PLAN Continue to monitor blood pressure and heart rates. Continue with current regiment. We will check tomorrow with urology if we can resume patient on aspirin tomorrow Continue to hold Eliquis and Plavix. Larger sized stent 4 months ago and less risk of stent thrombosis Transfuse as needed Bradycardia seems to have resolved Continue telemetry monitoring Nurse practitioner note has been reviewed, I agree with documented findings and plan of care. Patient was seen and examined. Objective - Vital Signs Vital signs: Vital Signs Temp 98.3 F 03/27/24 04:00 Pulse 82 03/27/24 04:00 Resp 18 03/27/24 04:00 BP 130/67 03/27/24 04:00 Pulse Ox 98 03/27/24 04:00 FiO2 Intake & Output 03/26/24 03/27/24 03/27/24 18:59 06:59 18:59 Intake Total 1999 240 118 Output Total 900 1000 Balance 1100 -760 118 Weight 69.3 kg 69.3 kg Intake: Oral 1999 240 118 Output: Urine 900 1000 Other: Voiding Method Indwelling Catheter Indwelling Catheter # Bowel Movements 1 - Labs CBC & Chem 7: 03/27/24 09:52 03/27/24 09:52 Labs: Abnormal Lab Results - Last 24 Hours (Table) 03/26/24 03/26/24 03/26/24 Range/Units 14:01 16:13 21:00 RBC 2.59 L (3.80-5.40) m/uL Hgb 7.4 L (11.4-16.0) gm/dL Hct 26.2 L (34.0-46.0) % MCV 100.9 H (80.0-100.0) fL MCHC 28.5 L (31.0-37.0) g/dL RDW 18.2 H (11.5-15.5) % POC Glucose (mg/dL) 117 H 112 H (70-110) mg/dL 03/27/24 Range/Units 05:46 RBC (3.80-5.40) m/uL Hgb (11.4-16.0) gm/dL Hct (34.0-46.0) % MCV (80.0-100.0) fL MCHC (31.0-37.0) g/dL RDW (11.5-15.5) % POC Glucose (mg/dL) 118 H (70-110) mg/dL
--- NOTE | 2024-03-27 13:45 | P.PN ---
Subjective 83-year-old with multimedical problems was hospitalized 2 weeks ago for over 10 days with multiple complications related to sepsis along with hypertension along with severe aggressive hemorrhagic cystitis and hematuria require multiple units of blood transfusion also require indwelling catheter and ended up finally going for an cystoscopy and fulguration with three-way's catheter to flush the bladder for over 48 hours before finally bleeding stopped. Patient was in the hospital for several days after the bleeding stopped completely with the recommendation to resume her anticoagulation for A-fib and for angioplasty and stent placement. With all the comorbidity and the complication she had patient and family absolutely refused to go anywhere but home the plan originally is for her to be home with physical therapy and home care with the help of family but she was supposed to go with family member who apparently had some medical background training to help her out to live in the [facility] for a few weeks till her symptoms improve and gain her independency. Also patient was supposed to have 2 follow-up appointment this week one of them in our office supposedly yesterday and 1 at the urology office this week she did not make it to both. She presented to the emergency department late in the evening because was very weak she passed out and reported having diarrhea with black stool along with severe hematuria with worsening incontinence. Patient also developed to have A- fib with RVR apparently told the ER that has not taking her antibiotic for the last 2 days because just not feeling well. She denies any injury from her weakness or presyncope and again patient is not doing any anticoagulation. As soon as her Streeter catheter went and patient had over 400 cc of hematuria with clear blood followed by 200 more hemoglobin is down already 7.3 and within couple hours dropped down to 6.9. She is in acute kidney failure and lactic acid up to 2.6 and UA had a pure hematuria at this point. Initiate patient at [facility] emergency department on Rocephin she developed to have very rapid ventricular response despite using metoprolol 100 mg a day patient with recommendation of cardiology initiate amiodarone drip. Remain in the ER but to be transferred to the ICU with recurrent complication of medical problems. Can you refer to my history and physical from last admission for further more patient medical history. 03/23/2024: Patient is feeling much better today, slight improvement on her Kidney test creatinine has improved some, hemoglobin is up to 8 and the drop again down slight bit. 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 Blood pressure becomes slightly below patient was observed treated with fluid challenge and IV hydration had improved blood pressure slightly repeat lactic acid came back at 1.4 patient is not septic at this point there is no positive culture so far and this is probably still more volume problem than infectious problem. 03/24. Patient seen and examined. Patient blood pressure was low but patient currently asymptomatic. Denies lightheaded or dizziness. Denies any chest pain. Denies any shortness of breath 03/25. Patient seen and examined. Blood work this morning showed WBC 4.5, hemoglobin 7, platelet count 294, sodium is 130, potassium 3.5 03/26. Patient seen and examined. Complaining of diarrhea. No swelling of lower extremities 03/27. Patient seen and examined. Patient is currently normotensive, blood pressure has improved. No further episodes of hematuria. Hemoglobin this morning 8.3 REVIEW OF SYSTEMS: CONSTITUTIONAL: No fever, no malaise,. CARDIOVASCULAR: No chest pain, no palpitations, no syncope. PULMONARY: No shortness of breath, no cough, GASTROINTESTINAL: No diarrhea, no nausea, no vomiting, no abdominal pain. NEUROLOGICAL: No headaches, no weakness, PHYSICAL EXAMINATION: GENERAL: The patient is alert, chronically ill looking HEENT: Pupils are round and equally reacting to light. EOMI. No scleral icterus. No conjunctival pallor. Normocephalic, atraumatic. No pharyngeal erythema. No thyromegaly. CARDIOVASCULAR: S1 and S2 present. No murmurs, rubs, or gallops. PULMONARY: Chest is clear to auscultation, no wheezing or crackles. ABDOMEN: Soft, nontender, nondistended, normoactive bowel sounds. No palpable organomegaly. MUSCULOSKELETAL: No joint swelling or deformity. EXTREMITIES: No cyanosis, clubbing NEUROLOGICAL: Gross neurological examination did not reveal any focal deficits. SKIN: No rashes. 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 _A-fib with RVR: Was placed on amiodarone drip initially decided beta-nereyda and calcium channel nereyda and became quite bit bradycardic amiodarone was stopped. Continue Toprol _Acute kidney injury: Monitor renal functions, continue IV fluids, nephrology following _Acute blood loss anemia: Monitor CBC, _Hypotension: Monitor vital signs, continue midodrine, hold for blood pressure systolic more than 110 _Sepsis and UTI: With her urine culture from last time with Klebsiella susceptible to many antibiotics patient will be on Rocephin for now till the culture again done and finalized this time. ID following _Atherosclerotic heart disease: Post PCI and stent placement from October has been seeing cardiology she needs more assurance probably family need to be more involved making sure she is taking her medication on time and that she does not run out of medication. Continue home meds _Chronic systolic congestive heart failure: Not been able to keep up with her current medication will watch symptoms carefully and try to avoid fluid overload. _Type 2 diabetes: Has been doing well resume insulin with sliding scale coverage and was on Jardiance, continue medication. _Hyperlipidemia: Continue atorvastatin 20 mg a day. _Hypothyroidism: Continue levothyroxine 25 mcg daily. Labs and medication were reviewed.. Continue same treatment. Continue with symptomatic treatment. Resume home medication. Monitor labs and vitals. DVT and GI prophylaxis. Further recommendations as per clinical course of the patient Dictation was produced using [employer] dictation software. please excuse any grammatical, word or spelling errors. Objective - Vital Signs Vital signs: Vital Signs Temp 98.0 F 03/27/24 09:58 Pulse 83 03/27/24 09:58 Resp 18 03/27/24 09:58 BP 128/77 03/27/24 09:58 Pulse Ox 98 03/27/24 09:58 FiO2 Intake & Output 03/26/24 03/27/24 03/27/24 18:59 06:59 18:59 Intake Total 1999 240 118 Output Total 900 1000 Balance 1100 -760 118 Weight 69.3 kg 69.3 kg Intake: Oral 1999 240 118 Output: Urine 900 1000 Other: Voiding Method Indwelling Catheter Indwelling Catheter # Bowel Movements 1 - Labs CBC & Chem 7: 03/27/24 09:52 03/27/24 09:52 Labs: Abnormal Lab Results - Last 24 Hours (Table) 03/26/24 03/26/24 03/26/24 Range/Units 14:01 16:13 21:00 RBC 2.59 L (3.80-5.40) m/uL Hgb 7.4 L (11.4-16.0) gm/dL Hct 26.2 L (34.0-46.0) % MCV 100.9 H (80.0-100.0) fL MCHC 28.5 L (31.0-37.0) g/dL RDW 18.2 H (11.5-15.5) % POC Glucose (mg/dL) 117 H 112 H (70-110) mg/dL 03/27/24 Range/Units 05:46 RBC (3.80-5.40) m/uL Hgb (11.4-16.0) gm/dL Hct (34.0-46.0) % MCV (80.0-100.0) fL MCHC (31.0-37.0) g/dL RDW (11.5-15.5) % POC Glucose (mg/dL) 118 H (70-110) mg/dL
--- NOTE | 2024-03-27 15:19 | P.PN ---
Subjective Progress Note Date: 03/26/24 Principal diagnosis: Reason for follow-up is cystitis and leukocytosis Patient is 83-year-old female past medical history of atrial fibrillation diabetes mellitus hypertension osteomyelitis recently admitted to the hospital with hematuria and did require cystoscopy urine culture positive for Klebsiella pneumonia now presenting back to the hospital with weakness did h ave elevated white count and positive evaluation however culture has been negative. On today's evaluation that is 03/26/2024, patient has been afebrile, patient is breathing comfortably and is currently on room air, patient denies having any significant cough no chest pain shortness of breath, patient denies nausea vomiting or diarrhea and no abdominal pain has been complaining of difficulty with swallowing as she has lost most of her teeth. Patient white count is 4.6 Objective - Vital Signs Vital signs: Vital Signs Temp 97.7 F 03/26/24 16:51 Pulse 68 03/26/24 16:51 Resp 18 03/26/24 16:51 BP 114/59 03/26/24 16:51 Pulse Ox 100 03/26/24 16:51 FiO2 Intake & Output 03/25/24 03/26/24 03/26/24 18:59 06:59 18:59 Intake Total 275 1080 2000 Output Total 500 700 900 Balance -394 440 1235 Weight 69.3 kg Intake: Intake, IV Titration 225 Amount Sodium Chloride 0.9% 1, 225 000 ml @ 75 mls/hr IV . [id number] [facility] Rx#:[id number] Oral 50 1080 2000 Output: Urine 500 700 900 Other: Voiding Method Indwelling Catheter Indwelling Catheter Indwelling Catheter # Bowel Movements 1 - Exam GENERAL DESCRIPTION: An elderly female lying in bed in no distress RESPIRATORY SYSTEM: Unlabored breathing , decreased breath sounds at bases HEART: S1 S2 regular rate and rhythm , ABDOMEN: Soft , no tenderness EXTREMITIES: No edema feet - Labs CBC & Chem 7: 03/27/24 09:52 03/27/24 09:52 Labs: Abnormal Lab Results - Last 24 Hours (Table) 03/25/24 03/26/24 03/26/24 Range/Units 19:47 14:01 16:13 RBC 2.59 L (3.80-5.40) m/uL Hgb 7.4 L (11.4-16.0) gm/dL Hct 26.2 L (34.0-46.0) % MCV 100.9 H (80.0-100.0) fL MCHC 28.5 L (31.0-37.0) g/dL RDW 18.2 H (11.5-15.5) % POC Glucose (mg/dL) 139 H 117 H (70-110) mg/dL Assessment and Plan (1) Hemorrhagic cystitis Current Visit: Yes Status: Acute Code(s): N30.91 - CYSTITIS, UNSPECIFIED WITH HEMATURIA SNOMED Code(s): 73925030 (2) UTI (urinary tract infection) Current Visit: Yes Status: Acute Code(s): N39.0 - URINARY TRACT INFECTION, SITE NOT SPECIFIED SNOMED Code(s): 97155751 (3) Leukocytosis Current Visit: Yes Status: Acute Code(s): D72.829 - ELEVATED WHITE BLOOD CELL COUNT, UNSPECIFIED SNOMED Code(s): 335971672 Plan: 1patient presented to hospital with weakness however did not have any fever but did have elevated white count on admission also noted to have significantly positive UA with evidence of moderate bacteria and concerning for cystitis with recent culture positive for Klebsiella however cultures are negative this admission 2-patient continues to be afebrile and did have a normal white count, patient to continue with Rocephin and monitor clinical course closely Dictation was produced using [employer] dictation software. please excuse any grammatical, word or spelling errors. Time with Patient: Less than 30
--- NOTE | 2024-03-27 15:20 | P.PN ---
Subjective Progress Note Date: 03/27/24 Principal diagnosis: Reason for follow-up is cystitis and leukocytosis Patient is 83-year-old female past medical history of atrial fibrillation diabetes mellitus hypertension osteomyelitis recently admitted to the hospital with hematuria and did require cystoscopy urine culture positive for Klebsiella pneumonia now presenting back to the hospital with weakness did h ave elevated white count and positive evaluation however culture has been negative. On today's evaluation that is 03/27/2024, Patient is afebrile this morning and denies any chills, patient mention breathing comfortably and is currently on room air, patient denies any chest pain occasional cough patient denies any abdominal pain no diarrhea no nausea no vomiting, no new symptoms. Patient white count is 4.7 creatinine is 1.55 Objective - Vital Signs Vital signs: Vital Signs Temp 97.5 F L 03/27/24 14:50 Pulse 54 L 03/27/24 14:50 Resp 15 03/27/24 14:50 BP 102/57 03/27/24 14:50 Pulse Ox 100 03/27/24 14:50 FiO2 Intake & Output 03/26/24 03/27/24 03/27/24 18:59 06:59 18:59 Intake Total 1999 240 118 Output Total 900 1000 Balance 1100 -760 118 Weight 69.3 kg 69.3 kg Intake: Oral 1999 240 118 Output: Urine 900 1000 Other: Voiding Method Indwelling Catheter Indwelling Catheter Indwelling Catheter # Bowel Movements 1 - Exam GENERAL DESCRIPTION: An elderly female lying in bed in no distress RESPIRATORY SYSTEM: Unlabored breathing , decreased breath sounds at bases HEART: S1 S2 regular rate and rhythm , ABDOMEN: Soft , no tenderness EXTREMITIES: No edema feet - Labs CBC & Chem 7: 03/27/24 09:52 03/27/24 09:52 Labs: Abnormal Lab Results - Last 24 Hours (Table) 03/26/24 03/26/24 03/27/24 Range/Units 16:13 21:00 05:46 RBC (3.80-5.40) m/uL Hgb (11.4-16.0) gm/dL Hct (34.0-46.0) % RDW (11.5-15.5) % Lymphocytes # (1.0-4.8) k/uL Chloride (98-107) mmol/L Carbon Dioxide (22-30) mmol/L BUN (7-17) mg/dL Creatinine (0.52-1.04) mg/dL POC Glucose (mg/dL) 117 H 112 H 118 H (70-110) mg/dL Calcium (8.4-10.2) mg/dL 03/27/24 03/27/24 03/27/24 Range/Units 09:52 09:52 11:35 RBC 2.76 L (3.80-5.40) m/uL Hgb 8.3 L (11.4-16.0) gm/dL Hct 26.3 L (34.0-46.0) % RDW 18.0 H (11.5-15.5) % Lymphocytes # 0.9 L (1.0-4.8) k/uL Chloride 113 H (98-107) mmol/L Carbon Dioxide 21 L (22-30) mmol/L BUN 22 H (7-17) mg/dL Creatinine 1.55 H (0.52-1.04) mg/dL POC Glucose (mg/dL) 118 H (70-110) mg/dL Calcium 7.6 L (8.4-10.2) mg/dL Microbiology - Last 24 Hours (Table) 03/21/24 23:53 Blood Culture - Final Blood 03/21/24 23:38 Blood Culture - Final Blood Assessment and Plan (1) Hemorrhagic cystitis Current Visit: Yes Status: Acute Code(s): N30.91 - CYSTITIS, UNSPECIFIED WITH HEMATURIA SNOMED Code(s): 79938750 (2) UTI (urinary tract infection) Current Visit: Yes Status: Acute Code(s): N39.0 - URINARY TRACT INFECTION, SITE NOT SPECIFIED SNOMED Code(s): 28380274 (3) Leukocytosis Current Visit: Yes Status: Acute Code(s): D72.829 - ELEVATED WHITE BLOOD CELL COUNT, UNSPECIFIED SNOMED Code(s): 934293871 Plan: 1patient presented to hospital with weakness however did not have any fever but did have elevated white count on admission also noted to have significantly positive UA with evidence of moderate bacteria and concerning for cystitis with recent culture positive for Klebsiella however cultures are negative this admission 2-patient is slowly clinically improving remains to be afebrile and did have a normal white count, patient to continue with Rocephin while inpatient and monitor clinical course closely Dictation was produced using [employer] dictation software. please excuse any grammatical, word or spelling errors. Time with Patient: Less than 30
[2024-03-27 16:16] LABS: Glucose,Whole Blood 149 mg/dL (70-110)
[2024-03-27 20:21] LABS: Glucose,Whole Blood 127 mg/dL (70-110)
[2024-03-28 01:02] VITALS: RESP 16
[2024-03-28 06:22] LABS: Glucose,Whole Blood 95 mg/dL (70-110)
[2024-03-28 09:47] VITALS: BP 135/65; PULSE 85; TEMP 97.1
[2024-03-28 11:39] LABS: Glucose,Whole Blood 218 mg/dL (70-110)
--- NOTE | 2024-03-28 12:12 | P.PN ---
Subjective Patient is seen in follow-up for acute kidney injury on chronic kidney disease. Renal function improving. Hemodynamically stable. Has Streeter catheter. Nonoliguric. No vomiting. No active complaints. Vital signs are stable. General: No acute distress. HEENT: Head exam is unremarkable. LUNGS: No audible rhonchi or wheezes. HEART: Rate and Rhythm are regular. ABDOMEN: Nontender. EXTREMITITES: No edema. Objective - Vital Signs Vital signs: Vital Signs Temp 97.1 F L 03/28/24 09:20 Pulse 85 03/28/24 09:20 Resp 16 03/28/24 09:20 BP 135/65 03/28/24 09:20 Pulse Ox 99 03/27/24 20:12 FiO2 Intake & Output 03/27/24 03/28/24 03/28/24 18:59 06:59 18:59 Intake Total 478 480 180 Output Total 800 Balance 478 -320 180 Weight 69.3 kg 71 kg Intake: Oral 478 480 180 Output: Urine 800 Other: Voiding Method Indwelling Catheter Indwelling Catheter Indwelling Catheter # Bowel Movements 1 - Labs CBC & Chem 7: 03/27/24 09:52 03/27/24 09:52 Labs: Abnormal Lab Results - Last 24 Hours (Table) 03/27/24 03/27/24 03/28/24 Range/Units 16:15 20:19 11:38 POC Glucose (mg/dL) 149 H 127 H 218 H (70-110) mg/dL Microbiology - Last 24 Hours (Table) 03/21/24 23:53 Blood Culture - Final Blood 03/21/24 23:38 Blood Culture - Final Blood Assessment and Plan Plan: Assessment: 1. Acute kidney injury secondary to ATN secondary to severe sepsis. Renal function improved from admission. Creatinine 1.55 yesterday. 2. Chronic kidney disease stage IIIb with baseline creatinine 1.6-1.8. 3. 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 CT scan showed possible chronic hy dronephrosis and concern for bladder neoplasm vs blood clots. Urology following. 4. A-fib with RVR. On metoprolol. Status post amiodarone drip. 5. Acute blood loss anemia status post blood transfusion. On Aranesp. Denies any active bleeding. 6. Hypokalemia from saline diuresis. Replaced. 7. Metabolic acidosis secondary to acute kidney injury and IV fluids maintained on oral bicarb. Improved. Plan: Maintain gentle IV hydration. Encouraged oral intake. Maintain Streeter catheter. Hold SGLT2 inhibitor due to acute UTI. Continue to monitor renal function and urine output. Hold midodrine for systolic blood pressure greater than 110.
[2024-03-28 12:23] LABS: Anisocytosis Slight; HCT 26.9 % (34.0-46.0); HGB 8.4 gm/dL (11.4-16.0); Hypochromasia Marked; MCH 29.5 pg (25.0-35.0); MCHC 31.1 g/dL (31.0-37.0); MCV 94.9 fL (80.0-100.0); Mean Platelet Volume 7.6; Platelet Count 337 k/uL (150-450); Poikilocytosis Slight; RBC 2.83 m/uL (3.80-5.40); RDW 17.8 % (11.5-15.5); WBC 3.8 k/uL (3.8-10.6)
[2024-03-28] MEDS: ASPIRIN 81 MG PO SCH (12:49)
[2024-03-28 12:53] LABS: African American GFR (CKD) 34 (>60 ml/min/1.73 sqM); Anion Gap 2 mmol/L; Blood Urea Nitrogen 20 mg/dL (7-17); Calcium 7.5 mg/dL (8.4-10.2); Carbon Dioxide 23 mmol/L (22-30); Chloride 113 mmol/L (98-107); Glucose 121 mg/dL (74-99); Non-African American GFR(CKD) 29 (>60 ml/min/1.73 sqM); Potassium 3.5 mmol/L (3.5-5.1); Sodium 138 mmol/L (137-145)
--- NOTE | 2024-03-28 13:33 | P.DS ---
Providers Date of admission: 03/21/24 23:31 Expected date of discharge: 03/28/24 Attending physician: Francesco Gaston Consults: 03/21/24 23:31 Consult Physician Urgent Consulting Provider: Dewey Williamson Consult Reason/Comments: hematuria Do you want consulting provider notified?: Yes Consult Physician Urgent Consulting Provider: [facility] Consult Reason/Comments: afib with rvr Do you want consulting provider notified?: Yes 03/22/24 05:51 Consult Physician Routine Consulting Provider: Kajal Krueger Consult Reason/Comments: BOLA Do you want consulting provider notified?: Yes, Notify in am 03/23/24 14:55 Consult Physician Stat Consulting Provider: Nabil Beck Consult Reason/Comments: hypotension Do you want consulting provider notified?: Yes 03/24/24 12:48 Consult Physician Routine Consulting Provider: Tom Ramos Consult Reason/Comments: Cystitis Do you want consulting provider notified?: Yes Primary care physician: Francesco Gaston [facility] Course: Discharge diagnoses; _Severe hematuria: 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 ID recommend discharging on oral Ceftin for 3 days Outpatient follow-up with urology _Acute GI bleed: Monitor CBC IV Protonix no need for EGD. Holding Plavix and Eliquis at this time, the need to be resumed in outpatient settings once okay with cardiology _A-fib with RVR: Was placed on amiodarone drip initially decided beta-nereyda and calcium channel nereyda and became quite bit bradycardic amiodarone was stopped. Continue Toprol _Acute kidney injury: Renal function stable, outpatient follow-up with PCP _Acute blood loss anemia: Monitor CBC, _Hypotension: Monitor vital signs, continue midodrine, _Sepsis and UTI: With her urine culture from last time with Klebsiella susceptible to many antibiotics. Being discharged on oral Ceftin for 3 days _Atherosclerotic heart disease: Post PCI and stent placement from October has been seeing cardiology she needs more assurance probably family need to be more involved making sure she is taking her medication on time and that she does not run out of medication. Continue home meds _Chronic systolic congestive heart failure: Not been able to keep up with her current medication will watch symptoms carefully and try to avoid fluid overload. _Type 2 diabetes: Has been doing well resume insulin with sliding scale coverage and was on Jardiance, continue medication. _Hyperlipidemia: Continue atorvastatin 20 mg a day. _Hypothyroidism: Continue levothyroxine 25 mcg daily. Hospital course; 83-year-old with multimedical problems was hospitalized 2 weeks ago for over 10 days with multiple complications related to sepsis along with hypertension along with severe aggressive hemorrhagic cystitis and hematuria require multiple units of blood transfusion also require indwelling catheter and ended up finally going for an cystoscopy and fulguration with three-way's catheter to flush the bladder for over 48 hours before finally bleeding stopped. Patient was in the hospital for several days after the bleeding stopped completely with the recommendation to resume her anticoagulation for A-fib and for angioplasty and stent placement. With all the comorbidity and the complication she had patient and family absolutely refused to go anywhere but home the plan originally is for her to be home with physical therapy and home care with the help of family but she was supposed to go with family member who apparently had some medical background training to help her out to live in the [facility] for a few weeks till her symptoms improve and gain her independency. Also patient was supposed to have 2 follow-up appointment this week one of them in our office supposedly yesterday and 1 at the urology office this week she did not make it to both. She presented to the emergency department late in the evening because was very weak she passed out and reported having diarrhea with black stool along with severe hematuria with worsening incontinence. Patient also developed to have A- fib with RVR apparently told the ER that has not taking her antibiotic for the last 2 days because just not feeling well. She denies any injury from her weakness or presyncope and again patient is not doing any anticoagulation. As soon as her Streeter catheter went and patient had over 400 cc of hematuria with clear blood followed by 200 more hemoglobin is down already 7.3 and within couple hours dropped down to 6.9. She is in acute kidney failure and lactic acid up to 2.6 and UA had a pure hematuria at this point. Initiate patient at the emergency department on Rocephin she developed to have very rapid ventricular response despite using metoprolol 100 mg a day patient with recommendation of cardiology initiate amiodarone drip. Remain in the ER but to be transferred to the ICU with recurrent complication of medical problems. Can you refer to my history and physical from last admission for further more patient medical history. 03/23/2024: Patient is feeling much better today, slight improvement on her Kidney test creatinine has improved some, hemoglobin is up to 8 and the drop again down slight bit. 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 Blood pressure becomes slightly below patient was observed treated with fluid challenge and IV hydration had improved blood pressure slightly repeat lactic acid came back at 1.4 patient is not septic at this point there is no positive culture so far and this is probably still more volume problem than infectious problem. 03/24. Patient seen and examined. Patient blood pressure was low but patient currently asymptomatic. Denies lightheaded or dizziness. Denies any chest pain. Denies any shortness of breath 03/25. Patient seen and examined. Blood work this morning showed WBC 4.5, hemoglobin 7, platelet count 294, sodium is 130, potassium 3.5 03/26. Patient seen and examined. Complaining of diarrhea. No swelling of lower extremities 03/27. Patient seen and examined. Patient is currently normotensive, blood pressure has improved. No further episodes of hematuria. Hemoglobin this morning 8.3 03/28. Patient seen and examined. Clinically doing much better. ID recommended starting patient on oral Ceftin for 3 days. Cardiology recommended holding off on Plavix and Eliquis for now, they are to be resumed in outpatient setting PHYSICAL EXAMINATION: GENERAL: The patient is alert and oriented x3, chronically ill looking HEENT: Pupils are round and equally reacting to light. EOMI. No scleral icterus. No conjunctival pallor. Normocephalic, atraumatic. No pharyngeal erythema. No thyromegaly. CARDIOVASCULAR: S1 and S2 present. No murmurs, rubs, or gallops. PULMONARY: Chest is clear to auscultation, no wheezing or crackles. ABDOMEN: Soft, nontender, nondistended, normoactive bowel sounds. No palpable organomegaly. MUSCULOSKELETAL: No joint swelling or deformity. EXTREMITIES: No cyanosis, clubbing, or pedal edema. NEUROLOGICAL: Gross neurological examination did not reveal any focal deficits. SKIN: No rashes. Dictation was produced using [employer] software. please excuse any gramma tical, word or spelling errors. Patient Condition at Discharge: Good Plan - Discharge Summary Discharge Rx Participant: No New Discharge Prescriptions: New cefUROXime axetiL [Cefuroxime] 500 mg PO BID 3 Days #6 tab Pantoprazole Sodium [Protonix] 40 mg PO BID 30 Days #60 tab Metoprolol Succinate (ER) [Toprol XL] 50 mg PO HS tab Continue Levothyroxine Sodium 25 mcg PO DAILY #30 tab diphenhydrAMINE HCL [Benadryl] 50 mg PO DAILY PRN PRN Reason: Allergy Symptoms Midodrine [ProAmatine] 5 mg PO TID Verapamil Sr [Isoptin Sr] 120 mg PO DAILY Isosorbide Mononitrate ER [Imdur] 15 mg PO DAILY Aspirin 81 mg PO DAILY tab Sodium Bicarbonate Tab 650 mg PO DAILY #30 tab Albuterol Inhaler [Ventolin Hfa Inhaler] 2 puff INHALATION RT-Q6H PRN PRN Reason: Shortness Of Breath Or Wheezing Atorvastatin [Lipitor] 20 mg PO DAILY #30 tab Cetirizine HCl [Zyrtec] 10 mg PO DAILY PRN PRN Reason: Allergy Symptoms Empagliflozin [Jardiance] 10 mg PO HS Semaglutide [Rybelsus] 7 mg PO DAILY Benzonatate [Tessalon Perle] 200 mg PO AC-TID #60 capsule Acetaminophen Tab [Tylenol] 500 mg PO Q6HR PRN tab PRN Reason: Fever And/ Or Pain Discontinued Cefdinir [Omnicef] 300 mg PO DAILY #7 cap Metoprolol Succinate (ER) [Toprol XL] 100 mg PO HS #0 Apixaban [Eliquis] 2.5 mg PO BID #60 tab Furosemide [Lasix] 40 mg PO HS Clopidogrel [Plavix] 75 mg PO DAILY Famotidine [Pepcid] 20 mg PO DAILY #30 tab Discharge Medication List Atorvastatin [Lipitor] 20 mg PO DAILY #30 tab 12/03/23 [Rx] Levothyroxine Sodium 25 mcg PO DAILY #30 tab 12/03/23 [Rx] Cetirizine HCl [Zyrtec] 10 mg PO DAILY PRN 03/04/24 [History] Empagliflozin [Jardiance] 10 mg PO HS 03/04/24 [History] Isosorbide Mononitrate ER [Imdur] 15 mg PO DAILY 03/04/24 [History] Midodrine [ProAmatine] 5 mg PO TID 03/04/24 [History] Semaglutide [Rybelsus] 7 mg PO DAILY 03/04/24 [History] Verapamil Sr [Isoptin Sr] 120 mg PO DAILY 03/04/24 [History] diphenhydrAMINE HCL [Benadryl] 50 mg PO DAILY PRN 03/04/24 [History] Acetaminophen Tab [Tylenol] 500 mg PO Q6HR PRN tab 03/16/24 [Rx] Aspirin 81 mg PO DAILY tab 03/16/24 [Rx] Benzonatate [Tessalon Perle] 200 mg PO AC-TID #60 capsule 03/16/24 [Rx] Sodium Bicarbonate Tab 650 mg PO DAILY #30 tab 03/16/24 [Rx] Albuterol Inhaler [Ventolin Hfa Inhaler] 2 puff INHALATION RT-Q6H PRN 03/22/24 [History] Metoprolol Succinate (ER) [Toprol XL] 50 mg PO HS tab 03/28/24 [Rx] Pantoprazole Sodium [Protonix] 40 mg PO BID 30 Days #60 tab 03/28/24 [Rx] cefUROXime axetiL [Cefuroxime] 500 mg PO BID 3 Days #6 tab 03/28/24 [Rx] Follow up Appointment(s)/Referral(s): [facility] [Provider Group] - 1 Week Francesco Gaston MD [Primary Care Provider] - 1-2 days Patient Instructions/Handouts: Urinary Tract Infection in Women (DC) Discharge Disposition: TRANSFER TO SNF/ECF
--- NOTE | 2024-03-28 13:49 | P.PN ---
Subjective Progress Note Date: 03/28/24 HISTORY OF PRESENTING ILLNESS 83-year-old with past medical history of paroxysmal atrial fibrillation, hyp ertension, dyslipidemia, CKD, chronic diastolic heart failure, last NSTEMI in October 2023 requiring heart cath showing 80% left main stenosis and mid LAD 60 to 70% stenosis with SHIRT SORTER of LCx. She underwent PCI of left main into LAD. Patient has also had multiple hospital visits with A-fib RVR's past as well as recent visit with anemia and hematuria. Prior echocardiogram 03/05/2024 with EF 65-70%, mild LVH. Patient was dischrged 1 week ago and had been feeling OK however has had continued diarrhea. She states she actually came back to ER secondary to diarrhea however deniea any blood in stool. Does however have severe hematuria which has been persistent despite stopping blood thinners. No chest pain or pressure. found to be Afib with RVR and placed on Amio drip. Lactic acid 5 however improved down to 3 with IVF bolus. Cr also improved. Has chronic R>L LE edema. No fevers or chills. 03/23 patient seen and examined. Patient denies any chest pain or pressure. Her breathing is fairly stable. Her hematuria has mildly improved. Has been receiving IV fluids. Her daughter is asking about possible watchman device which we discussed maybe an option down the road. Patient had lower heart rate into the 40s to 50s and therefore amiodarone was discontinued and additionally had lower blood pressure 74/45. Blood pressure however is has increased. 03/24 She has not been sleeping well. She complains of feeling tired and fatigued. Her blood pressure has been on the lower side and rates on telemetry have been 4060s. She denies any chest pain or pressure. 03/25 She has been feeling okay. Still somewhat fatigued. Heart rates have been controlled. Hemoglobin 7.0, creatinine 2.01, potassium 3.5. 03/26 Patient's urine has cleared and she is cleared to have her Streeter catheter removed. Patient is complaining of diarrhea this morning. She is followed by infectious disease for antibiotics. Blood pressure 124/76, heart rate 95, pulse ox 99% on room air. No repeat blood work is available at the time of this dictation. 03/27 Patient remains in atrial fibrillation with controlled rate, heart rate is 82, blood pressure 130/67, pulse ox 98% on room air. No hematuria. We will check with urology if we can resume patient on aspirin for now. Hemoglobin is stable at 8.3. BUN 22 creatinine 1.55. 03/28 Patient has been maintained off Eliquis, Plavix, and aspirin we will plan to resume aspirin today. She is scheduled to return to [facility] today. Blood pressure 135/65, heart rate 85, pulse ox 100% on room air. Repeat blood work reveals hemoglobin 8.4. BUN 20 creatinine 1.64. PHYSICAL EXAMINATION Vital signs reviewed. Head: Normocephalic. Eyes: Sclerae nonicteric. Neck: Brisk carotid upstroke, no jugular venous distention. Lungs: Poor inspiratory effort. Heart: irregularly irregular, S1-S2, , 2/6 systolic murmur . Abdomen: Soft nontender, positive bowel sounds. Extremities: 1+ edema, Neuro: no focal deficits. Detailed neuro exam was not performed. ASSESSMENT Elevated troponin, likely type II NSTEMI in setting of BOLA, sepsis and anemia Chronic diastolic heart failure, CAD s/p PCI in October 2023. S/p PCI to left main into LAD 4 x 15 mm PRANAY Atrial fibrillation with RVR Acute blood loss anemia with hematuria Possible sepsis CKD Hyperlipidemia Hypothyroidism Questionable medication compliance LE edema likely component of venous insufficency Hemorrhagic cystitis PLAN Continue to monitor blood pressure and heart rates. Continue with current regiment. We will check tomorrow with urology if we can resume patient on aspirin tomorrow Continue to hold Eliquis and Plavix. Larger sized stent 4 months ago and less risk of stent thrombosis Patient will be resumed on aspirin 81 mg daily Bradycardia seems to have resolved Patient is cleared for discharge to [facility] from cardiology. Patient to follow- up with cardiology in 1 week in the office. Nurse practitioner note has been reviewed, I agree with documented findings and plan of care. Patient was seen and examined. Objective - Vital Signs Vital signs: Vital Signs Temp 97.4 F L 03/28/24 05:41 Pulse 77 03/28/24 05:41 Resp 16 03/28/24 05:41 BP 147/80 03/28/24 05:41 Pulse Ox 99 03/27/24 20:12 FiO2 Intake & Output 03/27/24 03/28/24 03/28/24 18:59 06:59 18:59 Intake Total 478 480 Output Total 800 Balance 478 -320 Weight 69.3 kg 71 kg Intake: Oral 478 480 Output: Urine 800 Other: Voiding Method Indwelling Catheter Indwelling Catheter # Bowel Movements 1 - Labs CBC & Chem 7: 03/28/24 11:28 03/28/24 11:28 Labs: Abnormal Lab Results - Last 24 Hours (Table) 03/27/24 03/27/24 03/27/24 Range/Units 09:52 09:52 11:35 RBC 2.76 L (3.80-5.40) m/uL Hgb 8.3 L (11.4-16.0) gm/dL Hct 26.3 L (34.0-46.0) % RDW 18.0 H (11.5-15.5) % Lymphocytes # 0.9 L (1.0-4.8) k/uL Chloride 113 H (98-107) mmol/L Carbon Dioxide 21 L (22-30) mmol/L BUN 22 H (7-17) mg/dL Creatinine 1.55 H (0.52-1.04) mg/dL POC Glucose (mg/dL) 118 H (70-110) mg/dL Calcium 7.6 L (8.4-10.2) mg/dL 03/27/24 03/27/24 Range/Units 16:15 20:19 RBC (3.80-5.40) m/uL Hgb (11.4-16.0) gm/dL Hct (34.0-46.0) % RDW (11.5-15.5) % Lymphocytes # (1.0-4.8) k/uL Chloride (98-107) mmol/L Carbon Dioxide (22-30) mmol/L BUN (7-17) mg/dL Creatinine (0.52-1.04) mg/dL POC Glucose (mg/dL) 149 H 127 H (70-110) mg/dL Calcium (8.4-10.2) mg/dL Microbiology - Last 24 Hours (Table) 03/21/24 23:53 Blood Culture - Final Blood 03/21/24 23:38 Blood Culture - Final Blood
[2024-03-28 16:24] LABS: Glucose,Whole Blood 108 mg/dL (70-110)
--- NOTE | 2024-03-28 16:39 | P.PN ---
Subjective Progress Note Date: 03/28/24 Principal diagnosis: Reason for follow-up is cystitis and leukocytosis Patient is 83-year-old female past medical history of atrial fibrillation diabetes mellitus hypertension osteomyelitis recently admitted to the hospital with hematuria and did require cystoscopy urine culture positive for Klebsiella pneumonia now presenting back to the hospital with weakness did h ave elevated white count and positive evaluation however culture has been negative. On today's evaluation that is /Speech 03/28/2024,the patient denies any fever or any chills, patient is breathing comfortably on room air, the patient denies chest pain shortness of breath and no significant cough, patient denies abdominal pain, no nausea vomiting or diarrhea. No new symptoms patient Streeter has been discontinued. Patient white count is 3.8, creatinine 1.64 Objective - Vital Signs Vital signs: Vital Signs Temp 97.1 F L 03/28/24 09:20 Pulse 85 03/28/24 09:20 Resp 16 03/28/24 09:20 BP 135/65 03/28/24 09:20 Pulse Ox 99 03/27/24 20:12 FiO2 Intake & Output 03/27/24 03/28/24 03/28/24 18:59 06:59 18:59 Intake Total 478 480 180 Output Total 800 Balance 478 -320 180 Weight 69.3 kg 71 kg Intake: Oral 478 480 180 Output: Urine 800 Other: Voiding Method Indwelling Catheter Indwelling Catheter Indwelling Catheter # Bowel Movements 1 - Exam GENERAL DESCRIPTION: An elderly female lying in bed in no distress RESPIRATORY SYSTEM: Unlabored breathing , decreased breath sounds at bases HEART: S1 S2 regular rate and rhythm , ABDOMEN: Soft , no tenderness EXTREMITIES: No edema feet - Labs CBC & Chem 7: 03/28/24 11:28 03/28/24 11:28 Labs: Abnormal Lab Results - Last 24 Hours (Table) 03/27/24 03/27/24 03/28/24 Range/Units 16:15 20:19 11:38 POC Glucose (mg/dL) 149 H 127 H 218 H (70-110) mg/dL Microbiology - Last 24 Hours (Table) 03/21/24 23:53 Blood Culture - Final Blood 03/21/24 23:38 Blood Culture - Final Blood Assessment and Plan (1) Hemorrhagic cystitis Status: Acute Code(s): N30.91 - CYSTITIS, UNSPECIFIED WITH HEMATURIA SNOMED Code(s): 03237035 (2) UTI (urinary tract infection) Status: Acute Code(s): N39.0 - URINARY TRACT INFECTION, SITE NOT SPECIFIED SNOMED Code(s): 09349176 (3) Leukocytosis Status: Acute Code(s): D72.829 - ELEVATED WHITE BLOOD CELL COUNT, UNSPECIFIED SNOMED Code(s): 943682062 Plan: 1patient presented to hospital with weakness however did not have any fever but did have elevated white count on admission also noted to have significantly positive UA with evidence of moderate bacteria and concerning for cystitis with recent culture positive for Klebsiella however cultures are negative this admission 2-patient has shown clinical improvement the patient remains to be afebrile and did have a normal white count, consider short course of oral Ceftin on discharge discussed with admitting team Dictation was produced using [employer] dictation software. please excuse any grammatical, word or spelling errors. Time with Patient: Less than 30
--- NOTE | 2024-03-30 19:41 | CDI ---
Documentation Clarification Form Date: 03/30/2024 07:22:41 PM From: Tamiko Mancini Phone: Admit Date: 03/21/2024 11:31:00 PM Patient Name: Martín Alcaraz Visit Number: [id number] Discharge Date: 03/28/2024 04:38:00 PM ATTENTION: The Clinical Documentation Specialists (CDI) and [facility] Coding Staff appreciate your assistance in clarifying documentation. Please respond to the clarification below the line at the bottom and electronically sign. The CDI & [facility] Coding staff will review the response and follow-up if needed. Please note: Queries are made part of the Legal Health Record. If you have any questions, please contact the author of this message via ITS. Dr. Francesco Gaston Your patient has an abnormal lab value: [id number]. Please clarify if there is an additional diagnosis and/or clinical significance related to this value. History/Risk Factors: 83yo F, sepsis, ATN, CKD IIIB, radiation cystitis w hematuria, ABLA, hypokalemia, A-fib, HTN, acidosis, NSTEMI II, HLD, hypothyroidism Clinical indicators: Glucose: 03/21 113-242 03/22 97-242 03/23 105-242 03/24 93-133 03/25 96-160 03/26 117-1877 03/27 112-118 03/28 118-218 Treatment: Insulin Aspart 0 unit; Insulin Aspart (Novolog) 100 Unit/Ml Vial SQ Home DM Meds: Empagliflozin [Jardiance] 10 mg PO HS; Semaglutide [Rybelsus] 7 mg PO DAILY Is there an additional diagnosis and/or clinical significance related to the above lab result/information? [ XX ] Diabetes Mellitus with hyperglycemia [ ] No additional diagnosis/Not clinically significant [ ] Other, please specify [ ] Unable to determine (Template Last Revised: October 2020) MTDD
--- NOTE | 2024-03-30 19:56 | CDI ---
Documentation Clarification Form Date: 03/30/2024 07:22:41 PM From: Tamiko Mancini Phone: Admit Date: 03/21/2024 11:31:00 PM Patient Name: Martín Alcaraz Visit Number: [id number] Discharge Date: 03/28/2024 04:38:00 PM ATTENTION: The Clinical Documentation Specialists (CDI) and [facility] Coding Staff appreciate your assistance in clarifying documentation. Please respond to the clarification below the line at the bottom and electronically sign. The CDI & [facility] Coding staff will review the response and follow-up if needed. Please note: Queries are made part of the Legal Health Record. If you have any questions, please contact the author of this message via ITS. Dr. James Mosley [Acute exacerbation of] chronic systolic congestive heart failure H&P and multi Progress Notes Consult 03/23 chronicdiastolic heart failure per Consult 03/22 and multiple Progress Notes Clarification regarding the type of CHF is requested. History/Risk Factors:83yo F, sepsis, ATN, NIDDMII, CKD IIIB, radiation cystitis w hematuria, ABLA, hypokalemia, A-fib, HTN, acidosis, NSTEMI II, HLD, hypothyroidism, ACCH Clinical Indicators: VS/Pulse OX: 95-99 BNP: [id number] Echo: 03/05/2024 with EF 65-70%, mild LVH Chest X Ray: Suggestive ofmildCHFwhich has improved compared to the priorstudy. Clinical correlation is recommended. Treatment: Not been able to keep up with her current medication will watch symptoms carefully and tryto avoidfluid overload. In your professional opinion, can you please clarify the type of CHF if known? [ ] Acute on Chronic Systolic Heart Failure (reduced EF) [ ] Acute on Chronic Diastolic Heart Failure (preserved EF) [ ] Acute on Chronic Heart Failure Systolic & Diastolic Heart Failure [ X ] Other, please specify__As documented in my note: chronic diastolic heart failure. My note clearly described my diagnosis at the time she was seen by myself. If you would like further clarification from other specialists documenting other diagnoses please send queries to them and not to me. [ ] Unable to determine (Template Last Revised: October 2020) MTDD
== END 2024-03-28 16:38 | DRG 871 ==
LOC: EC 18:43 → 3SCARD 23:31
PROVIDERS: ADMIT Internal Medicine Geriatric Medicine; ATTEND Internal Medicine Geriatric Medicine
PROC: 3E033RZ Introduction of Antiarrhythmic into Peripheral Vein, Percutaneous Approach (ICD-10-PCS; principal; 2024-03-22)
PROC: 30233N1 Transfusion of Nonautologous Red Blood Cells into Peripheral Vein, Percutaneous Approach (ICD-10-PCS; 2024-03-22)
PROC: 6A550Z0 Pheresis of Erythrocytes, Single (ICD-10-PCS; 2024-03-22)
DX: A41.9 Sepsis, unspecified organism (principal); I21.A1 Myocardial infarction type 2; N17.0 Acute kidney failure with tubular necrosis; I13.0 Hypertensive heart and chronic kidney disease with heart failure and stage 1 through stage 4 chronic kidney disease, or unspecified chronic kidney disease; E87.20 Acidosis, unspecified; D62 Acute posthemorrhagic anemia; N13.39 Other hydronephrosis; N30.41 Irradiation cystitis with hematuria; I50.32 Chronic diastolic (congestive) heart failure; K92.1 Melena; I49.5 Sick sinus syndrome; E11.22 Type 2 diabetes mellitus with diabetic chronic kidney disease; N18.32 Chronic kidney disease, stage 3b; I48.0 Paroxysmal atrial fibrillation; E11.65 Type 2 diabetes mellitus with hyperglycemia; R54 Age-related physical debility; I34.0 Nonrheumatic mitral (valve) insufficiency; E03.9 Hypothyroidism, unspecified; T50.906A Underdosing of unspecified drugs, medicaments and biological substances, initial encounter; Z91.138 Patient's unintentional underdosing of medication regimen for other reason; N39.498 Other specified urinary incontinence; E87.6 Hypokalemia; T50.2X5A Adverse effect of carbonic-anhydrase inhibitors, benzothiadiazides and other diuretics, initial encounter; I25.10 Atherosclerotic heart disease of native coronary artery without angina pectoris; E78.5 Hyperlipidemia, unspecified; Z87.440 Personal history of urinary (tract) infections; I87.2 Venous insufficiency (chronic) (peripheral); Y84.2 Radiological procedure and radiotherapy as the cause of abnormal reaction of the patient, or of later complication, without mention of misadventure at the time of the procedure; Z79.01 Long term (current) use of anticoagulants; Z85.42 Personal history of malignant neoplasm of other parts of uterus; Z79.899 Other long term (current) drug therapy; Z86.19 Personal history of other infectious and parasitic diseases; Z95.5 Presence of coronary angioplasty implant and graft; Z79.890 Hormone replacement therapy; Z79.02 Long term (current) use of antithrombotics/antiplatelets; Z79.84 Long term (current) use of oral hypoglycemic drugs; Z79.85 Long-term (current) use of injectable non-insulin antidiabetic drugs; Z79.82 Long term (current) use of aspirin; Z88.1 Allergy status to other antibiotic agents; Z88.6 Allergy status to analgesic agent; Z87.39 Personal history of other diseases of the musculoskeletal system and connective tissue; I25.2 Old myocardial infarction; Z92.3 Personal history of irradiation
CPT/HCPCS: 36415; 36430; 51701; 71046; 74176; 80048; 80053; 81001; 83605; 83735; 83880; 84132; 84145; 84484; 85025; 85027; 85610; 85730; 86850; 86900; 86901; 86920; 87040; 87086; 87324; 93005; 96361; 96365; 96374; 96375; 99291

== ENCOUNTER → 2024-05-15 | Outpatient (CLI) | payer MEDICARE | END | disposition home or self-care (01) | LOC: LABPRL 16:00 | PROVIDERS: ATTEND Internal Medicine Geriatric Medicine | DX: N30.01 Acute cystitis with hematuria (principal) | CPT/HCPCS: 87077; 87086; 87186 ==

== ENCOUNTER 2024-06-19 04:45 | Inpatient (IN) | payer MEDICARE ==
[2024-06-19 05:20] LABS: Anisocytosis Slight; Basophils % (A) 0 %; Eosinophils % (A) 0 %; HCT 27.4 % (34.0-46.0); HGB 8.7 gm/dL (11.4-16.0); Hypochromasia Marked; Lymphocytes # (A) 0.6 k/uL (1.0-4.8); Lymphocytes % (A) 4 %; MCH 23.5 pg (25.0-35.0); MCHC 31.6 g/dL (31.0-37.0); MCV 74.4 fL (80.0-100.0); Microcytosis Slight; Monocytes # (A) 0.3 k/uL (0-1.0); Monocytes % (A) 2 %; Neutrophils # (A) 13.1 k/uL (1.3-7.7); Neutrophils % (A) 93 %; Platelet Count 489 k/uL (150-450); RBC 3.68 m/uL (3.80-5.40); RDW 16.7 % (11.5-15.5); WBC 14.2 k/uL (3.8-10.6)
--- NOTE | 2024-06-19 05:34 | ED ---
General Adult HPI - General Chief complaint: Shortness of Breath Stated complaint: Aspiration Time Seen by Provider: 06/19/24 04:51 Source: patient, EMS, RN notes reviewed, old records reviewed Mode of arrival: EMS Limitations: altered mental status - History of Present Illness Initial comments: 84-year-old female presents from assisted for evaluation of fever. Patient has indwelling Streeter catheter and is fed by PEG tube. She is unable to contri bute to the history and this is apparently her baseline. She she is presenting from [facility]. There was concern for aspiration. Patient does have history of dementia according to paramedics. No reported vomiting. No reported significant cough. - Related Data Home Medications Medication Instructions Recorded Confirmed Cetirizine HCl [Zyrtec] 10 mg PO DAILY PRN 03/04/24 03/22/24 Empagliflozin [Jardiance] 10 mg PO HS 03/04/24 03/22/24 Isosorbide Mononitrate ER [Imdur] 15 mg PO DAILY 03/04/24 03/22/24 Midodrine [ProAmatine] 5 mg PO TID 03/04/24 03/22/24 Semaglutide [Rybelsus] 7 mg PO DAILY 03/04/24 03/22/24 Verapamil Sr [Isoptin Sr] 120 mg PO DAILY 03/04/24 03/22/24 diphenhydrAMINE HCL [Benadryl] 50 mg PO DAILY PRN 03/04/24 03/22/24 Albuterol Inhaler [Ventolin Hfa 2 puff INHALATION RT-Q6H PRN 03/22/24 03/22/24 Inhaler] Previous Rx's Medication Instructions Recorded Atorvastatin [Lipitor] 20 mg PO DAILY #30 tab 12/03/23 Levothyroxine Sodium 25 mcg PO DAILY #30 tab 12/03/23 Acetaminophen Tab [Tylenol] 500 mg PO Q6HR PRN tab 03/16/24 Aspirin 81 mg PO DAILY tab 03/16/24 Benzonatate [Tessalon Perle] 200 mg PO AC-TID #60 capsule 03/16/24 Sodium Bicarbonate Tab 650 mg PO DAILY #30 tab 03/16/24 Metoprolol Succinate (ER) [Toprol 50 mg PO HS tab 03/28/24 XL] Pantoprazole Sodium [Protonix] 40 mg PO BID 30 Days #60 tab 03/28/24 cefUROXime axetiL [Cefuroxime] 500 mg PO BID 3 Days #6 tab 03/28/24 Allergies Allergy/AdvReac Type Severity Reaction Status Date / Time bacitracin Allergy Rash/Hives Verified 03/22/24 10:54 [From Neosporin ([id number])] ibuprofen Allergy Anaphylaxis Verified 03/22/24 10:54 & Rash all over neomycin Allergy Rash/Hives Verified 03/22/24 10:54 [From Neosporin ([id number])] polymyxin B Allergy Rash/Hives Verified 03/22/24 10:54 [From Neosporin ([id number])] Review of Systems ROS Statement: Those systems with pertinent positive or pertinent negative responses have been documented in the HPI. ROS Other: All systems not noted in ROS Statement are negative. Past Medical History Past Medical History: Atrial Fibrillation, Diabetes Mellitus, Hypertension, Osteoarthritis (OA) Additional Past Medical History / Comment(s): uterine cancer, incontinent of urine History of Any Multi-Drug Resistant Organisms: None Reported Past Surgical History: No Surgical Hx Reported Additional Past Surgical History / Comment(s): cataract & carpal-tunnel bilat. Past Anesthesia/Blood Transfusion Reactions: No Reported Reaction Past Psychological History: No Psychological Hx Reported Smoking Status: Never smoker Past Alcohol Use History: None Reported Past Drug Use History: None Reported - Past Family History Mother Family Medical History: Coronary Artery Disease (CAD), Diabetes Mellitus, Hypertension, Mitral Valve Prolapse (MVP) Father Family Medical History: Hypertension Additional Family Medical History / Comment(s): father hip surgery General Exam General appearance: alert, in no apparent distress Head exam: Present: atraumatic, normocephalic Eye exam: Present: normal appearance, PERRL ENT exam: Present: mucous membranes dry Respiratory exam: Present: rhonchi, decreased breath sounds. Absent: respiratory distress Cardiovascular Exam: Present: tachycardia, irregular rhythm GI/Abdominal exam: Present: soft. Absent: distended, tenderness, guarding Extremities exam: Present: normal inspection. Absent: tenderness Neurological exam: Present: alert Skin exam: Present: warm, dry, intact Course Vital Signs 06/19/24 04:54 Temperature 100.6 F H Pulse Rate 118 H Respiratory 18 Rate Blood Pressure 110/70 O2 Sat by Pulse 96 Oximetry Medical Decision Making - Medical Decision Making Was pt. sent in by a medical professional or institution (MISAEL Duron, SUPERVIS[employer] INSPECTING, urgent care, hospital, or assisted...) When possible be specific @ -[No] Did you speak to anyone other than the patient for history (EMS, parent, family, police, friend...)? What history was obtained from this source @ -[No] Did you review nursing and triage notes (agree or disagree)? Why? @ -[I reviewed and agree with nursing and triage notes] Were old charts reviewed (outside hosp., previous admission, EMS record, old EKG, old radiological studies, urgent care reports/EKG's, assisted records)? Report findings @ -[No old charts were reviewed] Differential Fever: Pneumonia, viral URI, endocarditis, myocarditis, pericarditis, otitis, sinusitis, peritonsillar Abscess, retropharyngeal Abscess, epiglottitis, peritonitis, appendicitis, Grazyna cystitis, diverticulitis, hepatitis, colitis, UTI, PID, TOA, pyelonephritis, prostatitis, epididymitis, meningitis, encephalitis, pulmonary embolism, CVA, thyroid storm, pancreatitis, adrenal crisis, cavernous sinus thrombosis, this is not meant to be an all-inclusive list. EKG interpreted by me (3pts min.). @ -Atrial fibrillation with RVR rate of 117, QRS duration 112, QTc [address] segment elevation. X-rays interpreted by me (1pt min.). @ -Single view chest x-ray negative for consolidated pneumonia CT interpreted by me (1pt min.). @ -[None done] U/S interpreted by me (1pt. min.). @ -[None done] What testing was considered but not performed or refused? (CT, X-rays, U/S, labs )? Why? @ -[None] What meds were considered but not given or refused? Why? @ -[None] Did you discuss the management of the patient with other professionals (professionals i.e. MISAEL Duron, SUPER[employer]ING, lab, RT, psych nurse, social service manager, solder technician, teacher, debt recovery officer, piano case and bench assembler)? Give summary @ -Dr. Gaston has been paged Was smoking cessation discussed for >3mins.? @ -[No] Was critical care preformed (if so, how long)? @ -[No] Were there social determinants of health that impacted care today? How? (Homelessness, low income, unemployed, alcoholism, drug addiction, transportation, low edu. Level, literacy, decrease access to med. care, group home, rehab)? @ -[No] Was there de-escalation of care discussed even if they declined (Discuss DNR or withdrawal of care, Hospice)? DNR status @ -[No] What co-morbidities impacted this encounter? (DM, HTN, Smoking, COPD, CAD, Cancer, CVA, ARF, Chemo, Hep., AIDS, mental health diagnosis, sleep apnea, morbid obesity)? @ -Recurrent fever, bedbound Was patient admitted / discharged? Hospital course, mention meds given and route, prescriptions, significant lab abnormalities, going to OR and other pertinent info. @ -Patient admitted for IV antibiotics, IV fluids. Elevated white blood cell count, stable chronic anemia, viral panel is negative. Chest x-ray is negative for consolidative pneumonia. Patient will be treated for UTI with sepsis. Undiagnosed new problem with uncertain prognosis? @ -[No] Drug Therapy requiring intensive monitoring for toxicity (Heparin, Nitro, Insulin, Cardizem)? @ -[No] Were any procedures done? @ -[No] Diagnosis/symptom? @ -[Fever, UTI Acute, or Chronic, or Acute on Chronic? @ -[Acute on chronic Uncomplicated (without systemic symptoms) or Complicated (systemic symptoms)? @ -[default] Side effects of treatment? @ -[No] Exacerbation, Progression, or Severe Exacerbation? @ -[No] Poses a threat to life or bodily function? How? (Chest pain, [place], [place], pneumonia, PE, COPD, DKA, ARF, appy, cholecystitis, CVA, Diverticulitis, Homicidal, Suicidal, threat to staff... and all critical care pts) @ -[Yes, sepsis - Lab Data Result diagrams: 06/19/24 04:56 06/19/24 04:56 Lab Results 06/19/24 06/19/24 06/19/24 Range/Units 04:56 04:56 04:56 WBC 14.2 H (3.8-10.6) k/uL RBC 3.68 L (3.80-5.40) m/uL Hgb 8.7 L (11.4-16.0) gm/dL Hct 27.4 L (34.0-46.0) % MCV 74.4 L (80.0-100.0) fL MCH 23.5 L (25.0-35.0) pg MCHC 31.6 (31.0-37.0) g/dL RDW 16.7 H (11.5-15.5) % Plt Count 489 H (150-450) k/uL MPV 7.0 Neutrophils % 93 % Lymphocytes % 4 % Monocytes % 2 % Eosinophils % 0 % Basophils % 0 % Neutrophils # 13.1 H (1.3-7.7) k/uL Lymphocytes # 0.6 L (1.0-4.8) k/uL Monocytes # 0.3 (0-1.0) k/uL Eosinophils # 0.0 (0-0.7) k/uL Basophils # 0.0 (0-0.2) k/uL Hypochromasia Marked Anisocytosis Slight Microcytosis Slight Sodium 135 L (137-145) mmol/L Potassium 3.7 (3.5-5.1) mmol/L Chloride 103 (98-107) mmol/L Carbon Dioxide 28 (22-30) mmol/L Anion Gap 4 mmol/L BUN 35 H (7-17) mg/dL Creatinine 0.98 (0.52-1.04) mg/dL Est GFR (CKD-EPI)AfAm 62 (>60 ml/min/1.73 sqM) Est GFR (CKD-EPI)NonAf 54 (>60 ml/min/1.73 sqM) Glucose 207 H (74-99) mg/dL Plasma Lactic Acid Jose L 1.8 (0.7-2.0) mmol/L Calcium 8.2 L (8.4-10.2) mg/dL Total Bilirubin 1.0 (0.2-1.3) mg/dL AST 27 (14-36) U/L ALT 27 (4-34) U/L Alkaline Phosphatase 163 H (38-126) U/L Total Protein 6.0 L (6.3-8.2) g/dL Albumin 2.5 L (3.5-5.0) g/dL Influenza Type A (PCR) (Not Detectd) Influenza Type B (PCR) (Not Detectd) RSV (PCR) (Not Detectd) SARS-CoV-2 (PCR) (Not Detectd) 06/19/24 Range/Units 05:13 WBC (3.8-10.6) k/uL RBC (3.80-5.40) m/uL Hgb (11.4-16.0) gm/dL Hct (34.0-46.0) % MCV (80.0-100.0) fL MCH (25.0-35.0) pg MCHC (31.0-37.0) g/dL RDW (11.5-15.5) % Plt Count (150-450) k/uL MPV Neutrophils % % Lymphocytes % % Monocytes % % Eosinophils % % Basophils % % Neutrophils # (1.3-7.7) k/uL Lymphocytes # (1.0-4.8) k/uL Monocytes # (0-1.0) k/uL Eosinophils # (0-0.7) k/uL Basophils # (0-0.2) k/uL Hypochromasia Anisocytosis Microcytosis Sodium (137-145) mmol/L Potassium (3.5-5.1) mmol/L Chloride (98-107) mmol/L Carbon Dioxide (22-30) mmol/L Anion Gap mmol/L BUN (7-17) mg/dL Creatinine (0.52-1.04) mg/dL Est GFR (CKD-EPI)AfAm (>60 ml/min/1.73 sqM) Est GFR (CKD-EPI)NonAf (>60 ml/min/1.73 sqM) Glucose (74-99) mg/dL Plasma Lactic Acid Jose L (0.7-2.0) mmol/L Calcium (8.4-10.2) mg/dL Total Bilirubin (0.2-1.3) mg/dL AST (14-36) U/L ALT (4-34) U/L Alkaline Phosphatase (38-126) U/L Total Protein (6.3-8.2) g/dL Albumin (3.5-5.0) g/dL Influenza Type A (PCR) Not Detected (Not Detectd) Influenza Type B (PCR) Not Detected (Not Detectd) RSV (PCR) Not Detected (Not Detectd) SARS-CoV-2 (PCR) Not Detected (Not Detectd) Disposition Clinical Impression: Fever, UTI (urinary tract infection) Disposition: ADMITTED IP TO THIS HOSP Condition: Stable Is patient prescribed a controlled substance at d/c from ED?: No Referrals: Francesco Gaston MD [Primary Care Provider] - 1-2 days Time of Disposition: 06:51
[2024-06-19 05:36] LABS: ALT 27 U/L (4-34); AST 27 U/L (14-36); African American GFR (CKD) 62 (>60 ml/min/1.73 sqM); Albumin 2.5 g/dL (3.5-5.0); Alkaline Phosphatase 163 U/L (38-126); Anion Gap 4 mmol/L; Blood Urea Nitrogen 35 mg/dL (7-17); Calcium 8.2 mg/dL (8.4-10.2); Carbon Dioxide 28 mmol/L (22-30); Chloride 103 mmol/L (98-107); Glucose 207 mg/dL (74-99); Non-African American GFR(CKD) 54 (>60 ml/min/1.73 sqM); Potassium 3.7 mmol/L (3.5-5.1); Sodium 135 mmol/L (137-145)
[2024-06-19] MEDS: SODIUM CHLORIDE 0.9% 500 ML 500 ML IV ONE (05:42)
[2024-06-19] MEDS: ACETAMINOPHEN IV (For NPO) 1,000 MG in EMPTY BAG 1 BAG IVPB ONE (05:43)
--- NOTE | 2024-06-19 05:44 | XR ---
EXAMINATION TYPE: XR chest 1V portable DATE OF EXAM: 06/19/2024 COMPARISON: Chest x-ray March 21, 2024 HISTORY: Cough. TECHNIQUE: Single frontal view of the chest is obtained. FINDINGS: There is no focal air space opacity, pleural effusion, or pneumothorax seen. The cardiac silhouette size is enlarged. The osseous structures are demineralized. IMPRESSION: Cardiomegaly without acute pulmonary infiltrate. [facility], , 06/19/2024 5:42 AM
[2024-06-19] MEDS ORDERED: NALOXONE 0.4 MG/ML 1 ML VIAL IV PRN (06:53)
[2024-06-19 07:02] LABS: INR 1.2 (<1.2); Partial Thromboplastin Time 29.5 sec (22.0-30.0); Prothrombin Time 13.2 sec (10.0-12.5)
[2024-06-19 07:12] LABS: Appearance,Urine Cloudy (Clear); Bilirubin,Urine Negative (Negative); Blood,Urine Moderate (Negative); Color,Urine Yellow; Glucose,Urine (UA) 4+ (Negative); Ketones,Urine Negative (Negative); Leukocyte Esterase,Urine Large (Negative); Nitrite,Urine Negative (Negative); Protein,Urine 1+ (Negative); RBC,Urine 107 /hpf (0-5); Specific Gravity,Urine 1.019 (1.001-1.035); Urobilinogen,Urine <2.0 mg/dL (<2.0); WBC,Urine >182 /hpf (0-5)
[2024-06-19] MEDS: AZITHROMYCIN 500 MG in SODIUM CHLORIDE 0.9% 250 ML IVPB STA (10:05)
[2024-06-19] MEDS: SODIUM CHLORIDE 0.9% 1,000 ML IV SCH (10:06)
[2024-06-19] MEDS ORDERED: [UNRECOGNIZED DRUG - REMARK] MUCOUS MEM PRN (18:29)
[2024-06-19] MEDS ORDERED: NA PHOS,M-B/NA PHOS,DI-BA 133 ML ENEMA RECTAL PRN (18:29)
[2024-06-19] MEDS ORDERED: MAG HYDROX/AL HYDROX/SIMETH 30 ML CUP PEG/G-TUBE PRN (18:29)
[2024-06-19] MEDS ORDERED: bisacodyL 10 MG SUPP RECTAL PRN (18:29)
[2024-06-19] MEDS ORDERED: MAGNESIUM HYDROXIDE 2,400 MG/30 ML CUP PEG/G-TUBE PRN (18:29)
[2024-06-19 18:49] LABS: Glucose,Whole Blood 104 mg/dL (70-110)
[2024-06-19 20:41] LABS: Glucose,Whole Blood 95 mg/dL (70-110)
[2024-06-19] MEDS: APIXABAN 5 MG TAB PEG/G-TUBE SCH (20:46)
[2024-06-19] MEDS: carvediloL 12.5 MG TAB PO SCH (20:47)
[2024-06-19] MEDS: INSULIN ASPART (NovoLOG) 100 UNIT/ML VIAL SQ SCH (21:18)
[2024-06-19 22:05] LABS: Glucose,Whole Blood 92 mg/dL (70-110)
--- NOTE | 2024-06-19 22:37 | P.HPIM ---
History of Present Illness H&P Date: 06/19/24 HISTORY OF PRESENT ILLNESS: 84-year-old with active medical history of A-fib, type 2 diabetes, thrombotic stroke, history of uterine cancer, acute on chronic kidney disease, mild memory loss, history of atherosclerotic heart disease, cardiomyopathy, hyperlipidemia, chronic neuropathy, chronic arrhythmia, who was hospitalized since February at [facility] for what seems to be stroke from the severity of her hemorrhage when she was at [facility] last time her anticoagulation was stopped and prevention from creating major disaster with acute bleed required many blood transfusion and hemorrhagic urine was mostly secondary to radiation therapy from early patient ended up having thrombotic stroke and the been transferred to the emergency department at [facility] and after being there for couple days was transferred down to [facility] with complication of stroke consistent with aphasia, dysphagia, significant right-sided weakness and ended up having PE G tube and has been doing speech therapy and physical therapy all along since. Patient had recurrent UTI many times with significant hemorrhagic cystitis in the past. She developed to have significant altered mental status last 24 hours appeared to admission consistent with fever chills worsening cough staff at [facility] thought she might have aspiration with the choking sensation and the cough and that he is sent to the emergency department after temperature rise up to be around 101. Was seen and evaluated her laboratory value shows white blood cell of 14,200 hemoglobin 8.7 hematocrit 27.4 with blood sugar of 207 creatinine is much better than when she had earlier with GFR up to 54. Urine was severely positive, chest x-ray shows hyperinflation with slight COPD with no significant consolidation with more picture of pneumonia. With again this is finding shortly after her episode might still be too early to notice aspiration pneumonia. With the urine being positive patient was initiated on IV antibiotic by the emergency department with Rocephin along with azithromycin first dose was received at 6:00 in the morning. Patient does not need next dose till the . Meanwhile microbiology is pending blood culture and urine culture is pending as well. As of this admission diagnoses become sepsis with urinary tract infection early stage, possible aspiration pneumonia versus severe bronchitis with severe dehydration altered mental status and debility. No further hemorrhagic cystitis or bleeding urine tejada. Back on her anticoagulation. Will resume her home meds continue to watch this closely depend on her presentation and progression might require to see infectious disease. REVIEW OF SYSTEMS: CONSTITUTIONAL: Well-developed in no respiratory distress. Still having slight cough and wheezing. EYES: No icterus sclerae, no conjunctivitis. EARS, NOSE, MOUTH, THROAT, and FACE: No sore throat, lymphadenopathy, carotid bruits or deformity. Mild droopy face the left side. RESPIRATORY: Mild shortness of breath and dyspnea with no cough or wheezes. CARDIOVASCULAR: Positive palpitation and A-fib with no angina positive PND and orthopnea. GASTROINTESTINAL: Slight abdominal pain with nausea diarrhea and bloody with/tarry bowel movement along with significant hematuria. GENITOURINARY: Irritation discomfort with abnormal irregular urine in the catheter. INTEGUMENT/BREAST: Negative for any muscular injury with mild osteoarthritis.. HEMATOLOGIC/LYMPHATIC: Negative for bleed or purpura. MUSCULOSKELTAL: Generalized myalgia and arthralgia. NEURLOGICAL: She is alert slightly confused still have significant weakness in the right side. BEHAVIORAL/PSYCH: Negative. ENDOCRINE: Negative. PHYSICAL EXAMINATION: General Appearance: Alert, slightly confused in no distress. Neck HEENT: Supple, no lymphadenopathy, no thyroid enlargement, no carotid bruits. Lungs: Decreased expansion bilaterally with fine rhonchi positive mild rhonchi but no wheezes. Chest Wall: Decreased expansion with deep inspiration no tenderness and no deformity was found on exam, no costochondral pain or discomfort. Heart: Irregular rate and rhythm, S1, S2 positive severe tachycardia positive ejection murmur. Back: Symmetric, no curvature, ROM normal, no CVA tenderness. Abdomen: Soft with positive bowel sounds slight discomfort lower abdominal region area mostly epigastric along with mid lower abdominal area no rebound or rigidity. Extremities: Trace edema without cyanotic. Pulses: 2+ and symmetric. Skin: Skin color, texture, tugor normal, no rashes or lesions. Neurologic: Alert slightly confused. Cranial nerves II through XII slight defect in cranial nerve VII on the right side., Significant weakness in the ri ght side compared to the left side also had more spastic muscle in the left leg. Assessment and plan: _Altered mental status: Combination of urinary tract infection, hypoxia and temperature treat underlying disease keep watching symptoms closely. _Acute episode of sepsis with urinary tract infection: Laboratory value shows white blood cell of 14,200 left shifted, platelets are 489 with hemoglobin at 8.7. BUN at 35 with creatinine 0.98 with GFR at 54. Normal PT/INR, she was initiated on Rocephin will continue medication for now until final culture is ba ck. _Recent history of stroke with right-sided weakness: Continue physical therapy also patient still on feeding via PEG tube. _A-fib with RVR: Remain on Eliquis 5 mg twice a day still on Coreg 12.5 mg twice a day as well pulse rate seems holding better at this time. _Acute blood loss anemia_with multiple unit of blood transfusion last few months. _Atherosclerotic heart disease: Post PCI and stent placement from October has been seeing cardiology she needs more assurance probably family need to be more involved making sure she is taking her medication on time and that she does not run out of medication. Consult cardiology holding off on antiplatelet agent for now because of the bleed. _Chronic systolic congestive heart failure: Not been able to keep up with her current medication will watch symptoms carefully and try to avoid fluid overload. _Type 2 diabetes: Has been doing well resume insulin with sliding scale coverage and was on Jardiance, continue medication. _Hypertension: Remain slightly bit hypotensive sometimes required midodrine in the meanwhile continue to be treated with losartan 50 mg a day along with Coreg 12.5 mg twice a day. _Debility: Since her stroke continue to reside at [facility] her was moved and obviously after his last hospitalization in the same room. Chronic neuropathy: She is not on any suppressive medication or management. _DVT prophylaxis: Early mobilization and knee-high ROCK hose. _GI prophylaxis: Continue pantoprazole and Pepcid. CODE STATUS: Full code. Past Medical History Past Medical History: Atrial Fibrillation, Diabetes Mellitus, Hypertension, Osteoarthritis (OA) Additional Past Medical History / Comment(s): uterine cancer, incontinent of urine History of Any Multi-Drug Resistant Organisms: None Reported Past Surgical History: No Surgical Hx Reported Additional Past Surgical History / Comment(s): cataract & carpal-tunnel bilat. Past Anesthesia/Blood Transfusion Reactions: No Reported Reaction Past Psychological History: No Psychological Hx Reported Smoking Status: Never smoker Past Alcohol Use History: None Reported Past Drug Use History: None Reported - Past Family History Mother Family Medical History: Coronary Artery Disease (CAD), Diabetes Mellitus, Hypertension, Mitral Valve Prolapse (MVP) Father Family Medical History: Hypertension Additional Family Medical History / Comment(s): father hip surgery Medications and Allergies Home Medications Medication Instructions Recorded Confirmed Type Empagliflozin [Jardiance] 10 mg PO DAILY 03/04/24 06/19/24 History Acetaminophen Tab [Tylenol] 500 mg PO Q6HR PRN tab 03/16/24 06/19/24 Rx Apixaban [Eliquis] 5 mg PEG/G-TUBE BID 06/19/24 06/19/24 History Atorvastatin [Lipitor] 40 mg PEG/G-TUBE DAILY 06/19/24 06/19/24 History Famotidine [Pepcid] 20 mg PEG/G-TUBE DAILY 06/19/24 06/19/24 History INSULIN ASPART (NovoLOG) [NovoLOG See Protocol SQ ACHS 06/19/24 06/19/24 History (formulary)] Losartan [Cozaar] 50 mg PEG/G-TUBE DAILY 06/19/24 06/19/24 History Mag Hydrox/Al Hydrox/Simeth 15 ml PEG/G-TUBE QID PRN 06/19/24 06/19/24 History [Maalox] Magnesium Hydroxide [Milk of 7,200 mg PEG/G-TUBE DAILY PRN 06/19/24 06/19/24 History Magnesia Concentrate] Na Phos,M-B/Na Phos,Di-Ba [Fleet 133 ml RECTAL DAILY PRN 06/19/24 06/19/24 History Adult] Saliva Stimulant Comb. No.3 1 tsp MUCOUS MEM TID PRN 06/19/24 06/19/24 History [Biotene Moisturizing Mouth] bisacodyL [Dulcolax] 10 mg RECTAL DAILY PRN 06/19/24 06/19/24 History carvediloL [Coreg] 12.5 mg PO BID 06/19/24 06/19/24 History Allergies Allergy/AdvReac Type Severity Reaction Status Date / Time bacitracin Allergy Rash/Hives Verified 06/19/24 09:12 [From Neosporin ([id number])] ibuprofen Allergy Anaphylaxis Verified 06/19/24 09:12 & Rash all over neomycin Allergy Rash/Hives Verified 06/19/24 09:12 [From Neosporin ([id number])] polymyxin B Allergy Rash/Hives Verified 06/19/24 09:12 [From Neosporin ([id number])] Physical Exam Vitals: Vital Signs Temp Pulse Resp BP Pulse Ox 06/19/24 07:09 97.0 F L 98 18 95/57 98 06/19/24 04:54 100.6 F H 118 H 18 110/70 96 Intake and Output 06/18/24 06/19/24 06/19/24 22:59 06:59 14:59 Other: Weight 47.627 kg Results CBC & Chem 7: 06/19/24 04:56 06/19/24 04:56 Labs: Abnormal Lab Results - Last 24 Hours (Table) 06/19/24 06/19/24 06/19/24 Range/Units 04:56 04:56 04:56 WBC 14.2 H (3.8-10.6) k/uL RBC 3.68 L (3.80-5.40) m/uL Hgb 8.7 L (11.4-16.0) gm/dL Hct 27.4 L (34.0-46.0) % MCV 74.4 L (80.0-100.0) fL MCH 23.5 L (25.0-35.0) pg RDW 16.7 H (11.5-15.5) % Plt Count 489 H (150-450) k/uL Neutrophils # 13.1 H (1.3-7.7) k/uL Lymphocytes # 0.6 L (1.0-4.8) k/uL PT 13.2 H (10.0-12.5) sec INR 1.2 H (<1.2) Sodium 135 L (137-145) mmol/L BUN 35 H (7-17) mg/dL Glucose 207 H (74-99) mg/dL Calcium 8.2 L (8.4-10.2) mg/dL Alkaline Phosphatase 163 H (38-126) U/L Total Protein 6.0 L (6.3-8.2) g/dL Albumin 2.5 L (3.5-5.0) g/dL Urine Appearance (Clear) Urine Protein (Negative) Urine Glucose (UA) (Negative) Urine Blood (Negative) Ur Leukocyte Esterase (Negative) Urine RBC (0-5) /hpf Urine WBC (0-5) /hpf Urine WBC Clumps (None) /hpf 06/19/24 Range/Units 05:15 WBC (3.8-10.6) k/uL RBC (3.80-5.40) m/uL Hgb (11.4-16.0) gm/dL Hct (34.0-46.0) % MCV (80.0-100.0) fL MCH (25.0-35.0) pg RDW (11.5-15.5) % Plt Count (150-450) k/uL Neutrophils # (1.3-7.7) k/uL Lymphocytes # (1.0-4.8) k/uL PT (10.0-12.5) sec INR (<1.2) Sodium (137-145) mmol/L BUN (7-17) mg/dL Glucose (74-99) mg/dL Calcium (8.4-10.2) mg/dL Alkaline Phosphatase (38-126) U/L Total Protein (6.3-8.2) g/dL Albumin (3.5-5.0) g/dL Urine Appearance Cloudy H (Clear) Urine Protein 1+ H (Negative) Urine Glucose (UA) 4+ H (Negative) Urine Blood Moderate H (Negative) Ur Leukocyte Esterase Large H (Negative) Urine RBC 107 H (0-5) /hpf Urine WBC >182 H (0-5) /hpf Urine WBC Clumps Many H (None) /hpf
[2024-06-20 05:10] LABS: Glucose,Whole Blood 94 mg/dL (70-110)
[2024-06-20 07:32] LABS: Glucose,Whole Blood 96 mg/dL (70-110)
--- NOTE | 2024-06-20 08:05 | XR ---
EXAMINATION TYPE: XR chest 1V portable DATE OF EXAM: 06/20/2024 COMPARISON: 06/19/2024 INDICATION: Aspiration TECHNIQUE: Single frontal view of the chest is obtained. FINDINGS: The heart size is normal. The pulmonary vasculature is normal. Minimal subsegmental atelectasis medially at the left base IMPRESSION: 1. Minimal subsegmental atelectasis left lower lobe. [facility], , 06/20/2024 8:03 AM
--- NOTE | 2024-06-20 08:58 | XR ---
EXAMINATION TYPE: XR abdomen 2V DATE OF EXAM: 06/20/2024 COMPARISON: None INDICATION: Abdomen pain TECHNIQUE: Abdomen is examined in the supine and upright views FINDINGS: There is a normal bowel gas pattern. No free air is evident. No differential air-fluid levels are pre sent. Psoas margins are normal. No organomegaly is present. PEG tube is present. Vascular calcifications splenic artery. IMPRESSION: 1. Unremarkable Abdomen [facility], , 06/20/2024 8:56 AM
[2024-06-20 09:21] LABS: ALT 21 U/L (8-44); AST 16 U/L (13-35); Albumin 2.4 g/dL (3.8-4.9); Alkaline Phosphatase 111 U/L (41-126); BUN/Creat Ratio 31.45 Ratio (12.00-20.00); Blood Urea Nitrogen 34.6 mg/dL (9.0-27.0); Calcium 7.8 mg/dL (8.7-10.3); Carbon Dioxide 26.5 mmol/L (21.6-31.8); Chloride 108 mmol/L (96-109); Glucose 90 mg/dL (70-110); Potassium 3.6 mmol/L (3.5-5.5); Sodium 143 mmol/L (135-145); Total Bilirubin 0.4 mg/dL (0.3-1.2); Total Protein 5.4 g/dL (6.2-8.2)
[2024-06-20 09:34] LABS: HCT 25.1 % (37.2-46.3); HGB 7.7 g/dL (12.0-15.0); MCH 22.8 pg (27.0-32.0); MCHC 30.7 g/dL (32.0-37.0); MCV 74.3 FL (80.0-97.0); NRBC Per 100 WBC 0 X 10*3/uL (0.00-0.01); Platelet Count 437 X 10*3/uL (140-440); RBC 3.38 X 10*6/uL (4.10-5.20); RDW 17.4 % (11.5-14.5); WBC 9.34 X 10*3/uL (4.50-10.00)
[2024-06-20] MEDS: ACETAMINOPHEN TAB 500 MG TAB PO PRN (09:47)
[2024-06-20] MEDS: LOSARTAN 50 MG TAB PEG/G-TUBE SCH (09:48)
[2024-06-20] MEDS: FAMOTIDINE 20 MG TAB PEG/G-TUBE SCH (09:48)
[2024-06-20] MEDS: DAPAGLIFLOZIN PROPANEDIOL 5 MG TABLET PO SCH (09:48)
[2024-06-20] MEDS: PANTOPRAZOLE 40 MG TABLET PO SCH (09:48)
[2024-06-20] MEDS: ATORVASTATIN 40 MG TAB PEG/G-TUBE SCH (09:48)
[2024-06-20 09:56] LABS: Anisocytosis Slight; Basophils % (A) 0 %; Eosinophils # (A) 0.1 k/uL (0-0.7); Eosinophils % (A) 1 %; HCT 26.8 % (34.0-46.0); HGB 8.1 gm/dL (11.4-16.0); Hypochromasia Marked; Lymphocytes # (A) 0.7 k/uL (1.0-4.8); Lymphocytes % (A) 8 %; MCH 23.2 pg (25.0-35.0); MCHC 30.3 g/dL (31.0-37.0); MCV 76.6 fL (80.0-100.0); Mean Platelet Volume 6.7; Microcytosis Slight; Monocytes # (A) 0.4 k/uL (0-1.0); Monocytes % (A) 5 %; Neutrophils # (A) 6.9 k/uL (1.3-7.7); Neutrophils % (A) 85 %; Platelet Count 520 k/uL (150-450); RDW 16.6 % (11.5-15.5); WBC 8.1 k/uL (3.8-10.6)
[2024-06-20 12:22] LABS: Glucose,Whole Blood 89 mg/dL (70-110)
[2024-06-20 17:01] LABS: Glucose,Whole Blood 104 mg/dL (70-110)
[2024-06-20 20:18] LABS: Glucose,Whole Blood 100 mg/dL (70-110)
--- NOTE | 2024-06-20 23:03 | P.PN ---
Subjective Progress Note Date: 06/20/24 HISTORY OF PRESENT ILLNESS: 84-year-old with active medical history of A-fib, type 2 diabetes, thrombotic stroke, history of uterine cancer, acute on chronic kidney disease, mild memory loss, history of atherosclerotic heart disease, cardiomyopathy, hyperlipidemia, chronic neuropathy, chronic arrhythmia, who was hospitalized since February at [facility] for what seems to be stroke from the severity of her hemorrhage when she was at [facility] last time her anticoagulation was stopped and prevention from creating major disaster with acute bleed required many blood tra nsfusion and hemorrhagic urine was mostly secondary to radiation therapy from early patient ended up having thrombotic stroke and the been transferred to the emergency department at [facility] and after being there for couple days was transferred down to [facility] with complication of stroke consistent with aphasia, dysphagia, significant right-sided weakness and ended up having PEG tube and has been doing speech therapy and physical therapy all along since. Patient had recurrent UTI many times with significant hemorrhagic cystitis in the past. She developed to have significant altered mental status last 24 hours appeared to admission consistent with fever chills worsening cough staff at [facility] thought she might have aspiration with the choking sensation and the cough and that he is sent to the emergency department after temperature rise up to be around 101. Was seen and evaluated her laboratory value shows white blood cell of 14,200 hemoglobin 8.7 hematocrit 27.4 with blood sugar of 207 creatinine is much better than when she had earlier with GFR up to 54. Urine was severely positive, chest x-ray shows hyperinflation with slight COPD with no significant consolidation with more picture of pneumonia. With again this is finding shortly after her episode might still be too early to notice aspiration pneumonia. With the urine being positive patient was initiated on IV antibiotic by the emergency department with Rocephin along with azithromycin first dose was received at 6:00 in the morning. Patient does not need next dose till the . Meanwhile microbiology is pending blood culture and urine culture is pending as well. As of this admission diagnoses become sepsis with urinary tract infection early stage, possible aspiration pneumonia versus severe bronchitis with severe dehydration altered mental status and debility. No further hemorrhagic cystitis or bleeding urine tejada. Back on her anticoagulation. Will resume her home meds continue to watch this closely depend on her presentation and progression might require to see infectious disease. 06/20/2024: Patient is doing slightly better today, she had urinary tract infection with sepsis urine culture currently growing gram-negative bacilli final is not complete still on Rocephin for now should be continued. Repeat chest x-ray for the second time came back negative with no aspiration pneumonia. Stable to have slight abdominal pain flat abdominal x-ray was order this morning and was unremarkable patient had peg tube feeding with slight vasculature or vascular calcification around the splenic artery with no other major abnormality no sign of obstruction. Laboratory value showing anemia with hemoglobin down to 8.1 white blood cell count from 14,000 creatinine is up slightly today with GFR down to 50. 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 REVIEW OF SYSTEMS: CONSTITUTIONAL: Well-developed in no respiratory distress. Still having slight cough and wheezing. EYES: No icterus sclerae, no conjunctivitis. EARS, NOSE, MOUTH, THROAT, and FACE: No sore throat, lymphadenopathy, carotid bruits or deformity. Mild droopy face the left side. RESPIRATORY: Mild shortness of breath and dyspnea with no cough or wheezes. CARDIOVASCULAR: Positive palpitation and A-fib with no angina positive PND and orthopnea. GASTROINTESTINAL: Slight abdominal pain with nausea diarrhea and bloody with/tarry bowel movement along with significant hematuria. GENITOURINARY: Irritation discomfort with abnormal irregular urine in the catheter. INTEGUMENT/BREAST: Negative for any muscular injury with mild osteoarthritis.. HEMATOLOGIC/LYMPHATIC: Negative for bleed or purpura. MUSCULOSKELTAL: Generalized myalgia and arthralgia. NEURLOGICAL: She is alert slightly confused still have significant weakness in the right side. BEHAVIORAL/PSYCH: Negative. ENDOCRINE: Negative. PHYSICAL EXAMINATION: General Appearance: Alert, slightly confused in no distress. Neck HEENT: Supple, no lymphadenopathy, no thyroid enlargement, no carotid bruits. Lungs: Decreased expansion bilaterally with fine rhonchi positive mild rhonchi but no wheezes. Chest Wall: Decreased expansion with deep inspiration no tenderness and no deformity was found on exam, no costochondral pain or discomfort. Heart: Irregular rate and rhythm, S1, S2 positive severe tachycardia positive ejection murmur. Back: Symmetric, no curvature, ROM normal, no CVA tenderness. Abdomen: Soft with positive bowel sounds slight discomfort lower abdominal region area mostly epigastric along with mid lower abdominal area no rebound or rigidity. Extremities: Trace edema without cyanotic. Pulses: 2+ and symmetric. Skin: Skin color, texture, tugor normal, no rashes or lesions. Neurologic: Alert slightly confused. Cranial nerves II through XII slight defect in cranial nerve VII on the right side., Significant weakness in the right side compared to the left side also had more spastic muscle in the left leg. Assessment and plan: _Altered mental status: Combination of urinary tract infection, hypoxia and temperature treat underlying disease keep watching symptoms closely. Still try to rule out possibility of aspiration. _Acute episode of sepsis with urinary tract infection: Laboratory value shows white blood cell of 14,200 left shifted, platelets are 489 with hemoglobin at 8.7. BUN at 35 with creatinine 0.98 with GFR at 54. Normal PT/INR, she was initiated on Rocephin will continue medication for now until final culture is back. _Abdominal pain and distention: X-ray does not show any sign of obstruction Zo elsa again continue conservative management watch with PEG feeding to make sure is no Sign of perforation or any other abnormality. _Recent history of stroke with right-sided weakness: Continue physical therapy also patient still on feeding via PEG tube. _Acute kidney injury: With chronic kidney disease, continue hydration with the effect of the low blood pressure along with sepsis affecting kidney function there is no major damage we will continue to watch kidney function carefully. _A-fib with RVR: Remain on Eliquis 5 mg twice a day still on Coreg 12.5 mg twice a day as well pulse rate seems holding better at this time. _Acute blood loss anemia_with multiple unit of blood transfusion last few months. _Atherosclerotic heart disease: Post PCI and stent placement from October has been seeing cardiology she needs more assurance probably family need to be more involved making sure she is taking her medication on time and that she does not run out of medication. Consult cardiology holding off on antiplatelet agent for now because of the bleed. _Chronic systolic congestive heart failure: Not been able to keep up with her current medication will watch symptoms carefully and try to avoid fluid overload. _Type 2 diabetes: Has been doing well resume insulin with sliding scale coverage and was on Jardiance, continue medication. _Hypertension: Remain slightly bit hypotensive sometimes required midodrine in the meanwhile continue to be treated with losartan 50 mg a day along with Coreg 12.5 mg twice a day. _Debility: Since her stroke continue to reside at [facility] her was moved and obviously after his last hospitalization in the same room. _Chronic neuropathy: She is not on any suppressive medication or management. 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 Objective - Vital Signs Vital signs: Vital Signs Temp 97.6 F 06/20/24 20:00 Pulse 88 06/20/24 20:00 Resp 15 06/20/24 20:00 BP 150/85 06/20/24 20:00 Pulse Ox 97 06/20/24 20:00 FiO2 Intake & Output 06/20/24 06/20/24 06/21/24 06:59 18:59 06:59 Output Total 200 Balance -200 Weight 47.627 kg 47.627 kg Output: Urine 200 Other: Voiding Method Indwelling Catheter # Bowel Movements 1 - Labs CBC & Chem 7: 06/20/24 09:33 06/20/24 05:41 Labs: Abnormal Lab Results - Last 24 Hours (Table) 06/20/24 06/20/24 06/20/24 Range/Units 05:41 05:41 09:33 RBC 3.38 L 3.50 L (4.10-5.20) X 10*6/uL Hgb 7.7 L 8.1 L (12.0-15.0) g/dL Hct 25.1 L 26.8 L (37.2-46.3) % MCV 74.3 L 76.6 L (80.0-97.0) FL MCH 22.8 L 23.2 L (27.0-32.0) pg MCHC 30.7 L 30.3 L (32.0-37.0) g/dL RDW 17.4 H 16.6 H (11.5-14.5) % Plt Count 520 H (150-450) k/uL MPV 9.0 L (9.5-12.2) FL Lymphocytes # 0.7 L (1.0-4.8) k/uL BUN 34.6 H (9.0-27.0) mg/dL Est GFR (CKD-EPI) 50 L (>=60) BUN/Creatinine Ratio 31.45 H (12.00-20.00) Ratio Calcium 7.8 L (8.7-10.3) mg/dL Total Protein 5.4 L (6.2-8.2) g/dL Albumin 2.4 L (3.8-4.9) g/dL Albumin/Globulin Ratio 0.80 L (1.60-3.17) Ratio Microbiology - Last 24 Hours (Table) 06/19/24 05:13 Blood Culture - Preliminary Blood 06/19/24 05:15 Urine Culture - Preliminary Urine,Voided Gram Neg Bacilli
[2024-06-21 07:19] LABS: Glucose,Whole Blood 190 mg/dL (70-110)
[2024-06-21] MEDS ORDERED: DEXTROSE 50% SYRINGE 50 ML IVP PRN ×2 (08:01)
[2024-06-21 08:21] LABS: HCT 25.9 % (37.2-46.3); HGB 7.7 g/dL (12.0-15.0); MCH 22.9 pg (27.0-32.0); MCHC 29.7 g/dL (32.0-37.0); MCV 77.1 FL (80.0-97.0); Mean Platelet Volume 9.1 FL (9.5-12.2); NRBC Per 100 WBC 0 X 10*3/uL (0.00-0.01); Platelet Count 452 X 10*3/uL (140-440); RBC 3.36 X 10*6/uL (4.10-5.20); RDW 17.3 % (11.5-14.5); WBC 7.26 X 10*3/uL (4.50-10.00)
[2024-06-21] MEDS: INSULIN ASPART (NovoLOG) 100 UNIT/ML VIAL SQ SCH (08:51)
[2024-06-21] MEDS: APIXABAN 2.5 MG TABLET PEG/G-TUBE SCH (09:01)
[2024-06-21 09:31] LABS: Anisocytosis Slight; Basophils % (A) 0 %; Eosinophils # (A) 0.1 k/uL (0-0.7); Eosinophils % (A) 1 %; HCT 26.5 % (34.0-46.0); HGB 8.3 gm/dL (11.4-16.0); Hypochromasia Marked; Lymphocytes # (A) 0.7 k/uL (1.0-4.8); Lymphocytes % (A) 10 %; MCH 23.9 pg (25.0-35.0); MCHC 31.2 g/dL (31.0-37.0); MCV 76.6 fL (80.0-100.0); Mean Platelet Volume 7.2; Microcytosis Slight; Monocytes # (A) 0.3 k/uL (0-1.0); Monocytes % (A) 4 %; Neutrophils # (A) 5.9 k/uL (1.3-7.7); Neutrophils % (A) 83 %; Platelet Count 514 k/uL (150-450); RBC 3.45 m/uL (3.80-5.40); RDW 16.6 % (11.5-15.5); WBC 7.1 k/uL (3.8-10.6)
[2024-06-21 09:42] LABS: ALT 19 U/L (8-44); AST 13 U/L (13-35); Albumin 2.4 g/dL (3.8-4.9); Albumin/Globulin Ratio 0.75 Ratio (1.60-3.17); Alkaline Phosphatase 112 U/L (41-126); BUN/Creat Ratio 27.58 Ratio (12.00-20.00); Blood Urea Nitrogen 33.1 mg/dL (9.0-27.0); Calcium 7.7 mg/dL (8.7-10.3); Carbon Dioxide 25.9 mmol/L (21.6-31.8); Chloride 110 mmol/L (96-109); Globulin 3.2 g/dL (1.6-3.3); Glucose 131 mg/dL (70-110); Potassium 3.3 mmol/L (3.5-5.5); Sodium 144 mmol/L (135-145); Total Bilirubin 0.3 mg/dL (0.3-1.2); Total Protein 5.6 g/dL (6.2-8.2)
[2024-06-21 11:58] LABS: Glucose,Whole Blood 203 mg/dL (70-110)
[2024-06-21] MEDS ORDERED: INSULIN ASPART (NovoLOG) 100 UNIT/ML VIAL SQ SCH (12:30)
[2024-06-21] MEDS: CEFEPIME 2 GM in SODIUM CHLORIDE 0.9% 100 ML IVPB ONE (14:09)
[2024-06-21 16:57] LABS: Glucose,Whole Blood 250 mg/dL (70-110)
[2024-06-21 20:26] LABS: Glucose,Whole Blood 206 mg/dL (70-110)
[2024-06-21] MEDS: CEFEPIME 1 GM in SODIUM CHLORIDE 0.9% 50 ML IVPB SCH (21:44)
--- NOTE | 2024-06-21 23:09 | P.CONS ---
History of Present Illness - Reason for Consult Consult date: 06/21/24 UTI, sepsis need for IV antibiotics on discharge Requesting physician: Francesco Gaston - Chief Complaint Fever x 1 day - History of Present Illness Patient is a 84-year-old female with a past medical history significant for atrial fibrillation diabetes mellitus hypertension osteoarthritis patient presenting to the hospital 2 days ago for evaluation of fever patient did have a chronic indwelling Streeter catheter and the patient who is a resident of the [facility] has been brought to the hospital concerning for fever and concern for aspiration no clear history of any vomiting or coughing on presentation to the hospital she did have a fever 100.6 degrees following hide patient was tachycardic at 1 point but not hypotensive or hypoxic and no need for supplemental oxygen patient did have white count of 14.2 which is down to 7.1 creatinine is 0.98 electrolytes are normal liver enzymes are normal urine has been positive cultures are currently pending and growing gram- negative bacilli review of the microdata she did have a positive urine culture with the Pseudomonas aeruginosa on 05/15/2024 blood cultures are pending infectious disease was consulted today for possible long-term IV antibiotic at the [facility] on discharge patient in the time my evaluation is more awake and alert patient is breathing comfortably and is currently on room air denies having any chest pain shortness of breath or cough no nausea no vomiting no abdominal pain and no diarrhea Review of Systems Positive point and negatives has been mentioned in the HPI, complete review of systems was performed and all other systems are negative Past Medical History Past Medical History: Atrial Fibrillation, Diabetes Mellitus, Hypertension, Osteoarthritis (OA) Additional Past Medical History / Comment(s): uterine cancer, incontinent of urine History of Any Multi-Drug Resistant Organisms: None Reported Past Surgical History: No Surgical Hx Reported Additional Past Surgical History / Comment(s): cataract & carpal-tunnel bilat. Past Anesthesia/Blood Transfusion Reactions: No Reported Reaction Past Psychological History: No Psychological Hx Reported Smoking Status: Never smoker Past Alcohol Use History: None Reported Past Drug Use History: None Reported - Past Family History Mother Family Medical History: Coronary Artery Disease (CAD), Diabetes Mellitus, Hypertension, Mitral Valve Prolapse (MVP) Father Family Medical History: Hypertension Additional Family Medical History / Comment(s): father hip surgery Medications and Allergies Home Medications Medication Instructions Recorded Confirmed Type Empagliflozin [Jardiance] 10 mg PO DAILY 03/04/24 06/19/24 History Acetaminophen Tab [Tylenol] 500 mg PO Q6HR PRN tab 03/16/24 06/19/24 Rx Apixaban [Eliquis] 5 mg PEG/G-TUBE BID 06/19/24 06/19/24 History Atorvastatin [Lipitor] 40 mg PEG/G-TUBE DAILY 06/19/24 06/19/24 History Famotidine [Pepcid] 20 mg PEG/G-TUBE DAILY 06/19/24 06/19/24 History INSULIN ASPART (NovoLOG) [NovoLOG See Protocol SQ ACHS 06/19/24 06/19/24 History (formulary)] Losartan [Cozaar] 50 mg PEG/G-TUBE DAILY 06/19/24 06/19/24 History Mag Hydrox/Al Hydrox/Simeth 15 ml PEG/G-TUBE QID PRN 06/19/24 06/19/24 History [Maalox] Magnesium Hydroxide [Milk of 7,200 mg PEG/G-TUBE DAILY PRN 06/19/24 06/19/24 History Magnesia Concentrate] Na Phos,M-B/Na Phos,Di-Ba [Fleet 133 ml RECTAL DAILY PRN 06/19/24 06/19/24 History Adult] Saliva Stimulant Comb. No.3 1 tsp MUCOUS MEM TID PRN 06/19/24 06/19/24 History [Biotene Moisturizing Mouth] bisacodyL [Dulcolax] 10 mg RECTAL DAILY PRN 06/19/24 06/19/24 History carvediloL [Coreg] 12.5 mg PO BID 06/19/24 06/19/24 History Allergies Allergy/AdvReac Type Severity Reaction Status Date / Time bacitracin Allergy Rash/Hives Verified 06/19/24 09:12 [From Neosporin ([id number])] ibuprofen Allergy Anaphylaxis Verified 06/19/24 09:12 & Rash all over neomycin Allergy Rash/Hives Verified 06/19/24 09:12 [From Neosporin ([id number])] polymyxin B Allergy Rash/Hives Verified 06/19/24 09:12 [From Neosporin ([id number])] Physical Exam Vitals: Vital Signs Temp Pulse Resp BP Pulse Ox 06/21/24 11:55 97.6 F 80 16 146/79 100 06/21/24 07:13 97.6 F 82 16 125/69 98 06/21/24 02:00 98.2 F 94 16 123/69 97 06/20/24 20:00 97.6 F 88 15 150/85 97 Intake and Output 06/20/24 06/21/24 06/21/24 22:59 06:59 14:59 Intake Total 400 Output Total 300 Balance 100 Intake: Tube Feeding 358 Other 42 Output: Urine 300 Other: Voiding Method Indwelling Catheter # Bowel Movements 2 1 GENERAL DESCRIPTION: Elderly female lying in bed, no distress. No tachypnea or accessory muscle of respiration use. HEENT: Shows Pallor , no scleral icterus. Oral mucous membrane is dry. No pharyngeal erythema or thrush NECK: Trachea central, no thyromegaly. LUNGS: Unlabored breathing. Clear to auscultation anteriorly. No wheeze or crackle. HEART: S1, S2, regular rate and rhythm. No loud murmur ABDOMEN: Soft, no tenderness , guarding or rigidity, no organomegaly EXTREMITIES: No edema of feet. SKIN: No rash, no masses palpable. NEUROLOGICAL: The patient is awake, alert, oriented x3, mood and affect normal. Results CBC & Chem 7: 06/21/24 09:17 06/21/24 05:14 Labs: Abnormal Lab Results - Last 24 Hours (Table) 06/21/24 06/21/24 06/21/24 Range/Units 05:14 05:14 07:17 RBC 3.36 L (4.10-5.20) X 10*6/uL Hgb 7.7 L (12.0-15.0) g/dL Hct 25.9 L (37.2-46.3) % MCV 77.1 L (80.0-97.0) FL MCH 22.9 L (27.0-32.0) pg MCHC 29.7 L (32.0-37.0) g/dL RDW 17.3 H (11.5-14.5) % Plt Count 452 H (140-440) X 10*3/uL MPV 9.1 L (9.5-12.2) FL Lymphocytes # (1.0-4.8) k/uL Potassium 3.3 L (3.5-5.5) mmol/L Chloride 110 H (96-109) mmol/L BUN 33.1 H (9.0-27.0) mg/dL Est GFR (CKD-EPI) 45 L (>=60) BUN/Creatinine Ratio 27.58 H (12.00-20.00) Ratio Glucose 131 H (70-110) mg/dL POC Glucose (mg/dL) 190 H (70-110) mg/dL Calcium 7.7 L (8.7-10.3) mg/dL Total Protein 5.6 L (6.2-8.2) g/dL Albumin 2.4 L (3.8-4.9) g/dL Albumin/Globulin Ratio 0.75 L (1.60-3.17) Ratio 06/21/24 06/21/24 Range/Units 09:17 11:57 RBC 3.45 L (4.10-5.20) X 10*6/uL Hgb 8.3 L (12.0-15.0) g/dL Hct 26.5 L (37.2-46.3) % MCV 76.6 L (80.0-97.0) FL MCH 23.9 L (27.0-32.0) pg MCHC (32.0-37.0) g/dL RDW 16.6 H (11.5-14.5) % Plt Count 514 H (140-440) X 10*3/uL MPV (9.5-12.2) FL Lymphocytes # 0.7 L (1.0-4.8) k/uL Potassium (3.5-5.5) mmol/L Chloride (96-109) mmol/L BUN (9.0-27.0) mg/dL Est GFR (CKD-EPI) (>=60) BUN/Creatinine Ratio (12.00-20.00) Ratio Glucose (70-110) mg/dL POC Glucose (mg/dL) 203 H (70-110) mg/dL Calcium (8.7-10.3) mg/dL Total Protein (6.2-8.2) g/dL Albumin (3.8-4.9) g/dL Albumin/Globulin Ratio (1.60-3.17) Ratio Microbiology - Last 24 Hours (Table) 06/19/24 05:13 Blood Culture - Preliminary Blood 06/19/24 05:15 Urine Culture - Preliminary Urine,Voided Gram Neg Bacilli Assessment and Plan (1) Fever Current Visit: Yes Status: Acute Code(s): R50.9 - FEVER, UNSPECIFIED SNOMED Code(s): 387291789 (2) UTI (urinary tract infection) Current Visit: Yes Status: Acute Code(s): N39.0 - URINARY TRACT INFECTION, SITE NOT SPECIFIED SNOMED Code(s): 58662407 (3) Sepsis Current Visit: Yes Status: Acute Code(s): A41.9 - SEPSIS, UNSPECIFIED ORGANISM SNOMED Code(s): 91650870 Plan: 1patient presented to hospital with sepsis in this patient who did have a fever elevated white count source is likely catheter associated UTI with a last urine culture in April 2024 was Pseudomonas aeruginosa we will need to treat as a deep infection keeping in mind fever and elevated white count and need to rule out any structure abnormality 2-we will check ultrasound of the kidney bladder area 3-switch antibiotics to cefepime while waiting for the culture to finalize 4-discharge antibiotics on the basis of final culture sensitivities may be IV We will follow on clinical condition and cultures to further adjust medication if needed Thank you for this consultation we will follow the patient along with you Dictation was produced using [employer] dictation software. please excuse any grammatical, word or spelling errors. Time with Patient: Greater than 30
[2024-06-22 07:15] LABS: Glucose,Whole Blood 254 mg/dL (70-110)
--- NOTE | 2024-06-22 07:21 | P.PN ---
Subjective Progress Note Date: 06/21/24 HISTORY OF PRESENT ILLNESS: 84-year-old with active medical history of A-fib, type 2 diabetes, thrombotic stroke, history of uterine cancer, acute on chronic kidney disease, mild memory loss, history of atherosclerotic heart disease, cardiomyopathy, hyperlipidemia, chronic neuropathy, chronic arrhythmia, who was hospitalized since February at [facility] for what seems to be stroke from the severity of her hemorrhage when she was at [facility] last time her anticoagulation was stopped and prevention from creating major disaster with acute bleed required many blood tra nsfusion and hemorrhagic urine was mostly secondary to radiation therapy from early patient ended up having thrombotic stroke and the been transferred to the emergency department at [facility] and after being there for couple days was transferred down to [facility] with complication of stroke consistent with aphasia, dysphagia, significant right-sided weakness and ended up having PEG tube and has been doing speech therapy and physical therapy all along since. Patient had recurrent UTI many times with significant hemorrhagic cystitis in the past. She developed to have significant altered mental status last 24 hours appeared to admission consistent with fever chills worsening cough staff at [facility] thought she might have aspiration with the choking sensation and the cough and that he is sent to the emergency department after temperature rise up to be around 101. Was seen and evaluated her laboratory value shows white blood cell of 14,200 hemoglobin 8.7 hematocrit 27.4 with blood sugar of 207 creatinine is much better than when she had earlier with GFR up to 54. Urine was severely positive, chest x-ray shows hyperinflation with slight COPD with no significant consolidation with more picture of pneumonia. With again this is finding shortly after her episode might still be too early to notice aspiration pneumonia. With the urine being positive patient was initiated on IV antibiotic by the emergency department with Rocephin along with azithromycin first dose was received at 6:00 in the morning. Patient does not need next dose till the . Meanwhile microbiology is pending blood culture and urine culture is pending as well. As of this admission diagnoses become sepsis with urinary tract infection early stage, possible aspiration pneumonia versus severe bronchitis with severe dehydration altered mental status and debility. No further hemorrhagic cystitis or bleeding urine tejada. Back on her anticoagulation. Will resume her home meds continue to watch this closely depend on her presentation and progression might require to see infectious disease. 06/20/2024: Patient is doing slightly better today, she had urinary tract infection with sepsis urine culture currently growing gram-negative bacilli final is not complete still on Rocephin for now should be continued. Repeat chest x-ray for the second time came back negative with no aspiration pneumonia. Stable to have slight abdominal pain flat abdominal x-ray was order this morning and was unremarkable patient had peg tube feeding with slight vasculature or vascular calcification around the splenic artery with no other major abnormality no sign of obstruction. Laboratory value showing anemia with hemoglobin down to 8.1 white blood cell count from 14,000 creatinine is up slightly today with GFR down to 50. She will be seeing speech therapy and also excelsior machine feeder to help to navigate him probably finalize nutrition plan through PEG tube. 06/21/2024: She is feeling slightly better clinically stable today white blood cells 7.1 no change in hemoglobin so far kidney function with GFR down to 45 with normal electrolytes. Culture still showing gram-negative bacilli not finalized yet. Will consult infectious disease and prepare for possible need for IV antibiotics meanwhile patient is not showing any major sign and symptom of sepsis. Also patient has been seen speech and dietitian her PEG feeding has been finalized and prepare hopefully to return back to [facility] as early as tomorrow. REVIEW OF SYSTEMS: CONSTITUTIONAL: Well-developed in no respiratory distress. Still having slight cough and wheezing. EYES: No icterus sclerae, no conjunctivitis. EARS, NOSE, MOUTH, THROAT, and FACE: No sore throat, lymphadenopathy, carotid bruits or deformity. Mild droopy face the left side. RESPIRATORY: Mild shortness of breath and dyspnea with no cough or wheezes. CARDIOVASCULAR: Positive palpitation and A-fib with no angina positive PND and orthopnea. GASTROINTESTINAL: Slight abdominal pain with nausea diarrhea and bloody with/tarry bowel movement along with significant hematuria. GENITOURINARY: Irritation discomfort with abnormal irregular urine in the catheter. INTEGUMENT/BREAST: Negative for any muscular injury with mild osteoarthritis.. HEMATOLOGIC/LYMPHATIC: Negative for bleed or purpura. MUSCULOSKELTAL: Generalized myalgia and arthralgia. NEURLOGICAL: She is alert slightly confused still have significant weakness in the right side. BEHAVIORAL/PSYCH: Negative. ENDOCRINE: Negative. PHYSICAL EXAMINATION: General Appearance: Alert, slightly confused in no distress. Neck HEENT: Supple, no lymphadenopathy, no thyroid enlargement, no carotid bruits. Lungs: Decreased expansion bilaterally with fine rhonchi positive mild rhonchi but no wheezes. Chest Wall: Decreased expansion with deep inspiration no tenderness and no deformity was found on exam, no costochondral pain or discomfort. Heart: Irregular rate and rhythm, S1, S2 positive severe tachycardia positive ejection murmur. Back: Symmetric, no curvature, ROM normal, no CVA tenderness. Abdomen: Soft with positive bowel sounds slight discomfort lower abdominal region area mostly epigastric along with mid lower abdominal area no rebound or rigidity. Extremities: Trace edema without cyanotic. Pulses: 2+ and symmetric. Skin: Skin color, texture, tugor normal, no rashes or lesions. Neurologic: Alert slightly confused. Cranial nerves II through XII slight defect in cranial nerve VII on the right side., Significant weakness in the right side compared to the left side also had more spastic muscle in the left leg. Assessment and plan: _Altered mental status: Combination of urinary tract infection, hypoxia, despite the high risk for aspiration and required suspicion of aspiration pneumonia patient chest x-ray remain negative and patient does not show any sign of right lower lobe pneumonia. _Acute episode of sepsis with urinary tract infection: Urine culture is positive for gram-negative bacilli white blood cells down treatment with Rocephin has qasim reeder working good will consult infectious disease change antibiotics accordingly and probably plan to change antibiotics to something suitable for 2 weeks when she returned back to [facility]. _Abdominal pain and distention: X-ray does not show any sign of obstruction Zofran again continue conservative management watch with PEG feeding to make sure is no Sign of perforation or any other abnormality. _Severe dysphagia and aphasia: Still seen speech, had PEG feeding continue current management speech therapy with recommendation while she is in the hospital. _Recent history of stroke with right-sided weakness: Continue physical therapy also patient still on feeding via PEG tube. _Acute kidney injury: With chronic kidney disease, continue hydration with the effect of the low blood pressure along with sepsis affecting kidney function there is no major damage we will continue to watch kidney function carefully. _A-fib with RVR: Remain on Eliquis 5 mg twice a day still on Coreg 12.5 mg twice a day as well pulse rate seems holding better at this time. _Acute blood loss anemia_with multiple unit of blood transfusion last few months. _Atherosclerotic heart disease: Post PCI and stent placement from October has been seeing cardiology she needs more assurance probably family need to be more involved making sure she is taking her medication on time and that she does not run out of medication. Consult cardiology holding off on antiplatelet agent for now because of the bleed. _Chronic systolic congestive heart failure: Not been able to keep up with her current medication will watch symptoms carefully and try to avoid fluid overload. _Type 2 diabetes: Has been doing well resume insulin with sliding scale coverage and was on Jardiance, continue medication. _Hypertension: Remain slightly bit hypotensive sometimes required midodrine in the meanwhile continue to be treated with losartan 50 mg a day along with Coreg 12.5 mg twice a day. _Debility: Since her stroke continue to reside at [facility] her was moved and obviously after his last hospitalization in the same room. _Chronic neuropathy: She is not on any suppressive medication or management. Discussion: Infectious disease consultation, looking for the final culture of her urine and probably change antibiotic accordingly and patient will be discharged home or back to [facility] sometime in the next 24 hours. Objective - Vital Signs Vital signs: Vital Signs Temp 98.2 F 06/21/24 02:00 Pulse 94 06/21/24 02:00 Resp 16 06/21/24 02:00 BP 123/69 06/21/24 02:00 Pulse Ox 97 06/21/24 02:00 FiO2 Intake & Output 06/20/24 06/20/24 06/21/24 06:59 18:59 06:59 Intake Total 400 Output Total 200 300 Balance -200 100 Weight 47.627 kg 47.627 kg Intake: Tube Feeding 358 Other 42 Output: Urine 200 300 Other: Voiding Method Indwelling Catheter # Bowel Movements 1 2 - Labs CBC & Chem 7: 06/21/24 09:17 06/21/24 05:14 Labs: Abnormal Lab Results - Last 24 Hours (Table) 06/20/24 06/20/24 06/20/24 Range/Units 05:41 05:41 09:33 RBC 3.38 L 3.50 L (4.10-5.20) X 10*6/uL Hgb 7.7 L 8.1 L (12.0-15.0) g/dL Hct 25.1 L 26.8 L (37.2-46.3) % MCV 74.3 L 76.6 L (80.0-97.0) FL MCH 22.8 L 23.2 L (27.0-32.0) pg MCHC 30.7 L 30.3 L (32.0-37.0) g/dL RDW 17.4 H 16.6 H (11.5-14.5) % Plt Count 520 H (150-450) k/uL MPV 9.0 L (9.5-12.2) FL Lymphocytes # 0.7 L (1.0-4.8) k/uL BUN 34.6 H (9.0-27.0) mg/dL Est GFR (CKD-EPI) 50 L (>=60) BUN/Creatinine Ratio 31.45 H (12.00-20.00) Ratio Calcium 7.8 L (8.7-10.3) mg/dL Total Protein 5.4 L (6.2-8.2) g/dL Albumin 2.4 L (3.8-4.9) g/dL Albumin/Globulin Ratio 0.80 L (1.60-3.17) Ratio Microbiology - Last 24 Hours (Table) 06/19/24 05:13 Blood Culture - Preliminary Blood 06/19/24 05:15 Urine Culture - Preliminary Urine,Voided Gram Neg Bacilli
[2024-06-22 07:49] VITALS: RESP 16
--- NOTE | 2024-06-22 10:00 | US ---
EXAMINATION TYPE: US kidneys/renal and bladder DATE OF EXAM: 06/21/2024 COMPARISON: NONE CLINICAL INDICATION: Female, 84 years old with history of uti and bacteremia; UTI EXAM MEASUREMENTS: Right Kidney: 8.6 x 3.8 x 5.0 cm Left Kidney: 9.5 x 3.5 x 4.4 cm Right Kidney: No hydronephrosis or masses seen - limited views Left Kidney: No hydronephrosis or masses seen Bladder: not distended IMPRESSION: 1. Normal renal ultrasound [facility], , 06/22/2024 9:30 AM
--- NOTE | 2024-06-22 10:53 | P.PN ---
Subjective Progress Note Date: 06/22/24 HISTORY OF PRESENT ILLNESS: 84-year-old with active medical history of A-fib, type 2 diabetes, thrombotic stroke, history of uterine cancer, acute on chronic kidney disease, mild memory loss, history of atherosclerotic heart disease, cardiomyopathy, hyperlipidemia, chronic neuropathy, chronic arrhythmia, who was hospitalized since February at [facility] for what seems to be stroke from the severity of her hemorrhage when she was at [facility] last time her anticoagulation was stopped and prevention from creating major disaster with acute bleed required many blood tra nsfusion and hemorrhagic urine was mostly secondary to radiation therapy from early patient ended up having thrombotic stroke and the been transferred to the emergency department at [facility] and after being there for couple days was transferred down to [facility] with complication of stroke consistent with aphasia, dysphagia, significant right-sided weakness and ended up having PEG tube and has been doing speech therapy and physical therapy all along since. Patient had recurrent UTI many times with significant hemorrhagic cystitis in the past. She developed to have significant altered mental status last 24 hours appeared to admission consistent with fever chills worsening cough staff at [facility] thought she might have aspiration with the choking sensation and the cough and that he is sent to the emergency department after temperature rise up to be around 101. Was seen and evaluated her laboratory value shows white blood cell of 14,200 hemoglobin 8.7 hematocrit 27.4 with blood sugar of 207 creatinine is much better than when she had earlier with GFR up to 54. Urine was severely positive, chest x-ray shows hyperinflation with slight COPD with no significant consolidation with more picture of pneumonia. With again this is finding shortly after her episode might still be too early to notice aspiration pneumonia. With the urine being positive patient was initiated on IV antibiotic by the emergency department with Rocephin along with azithromycin first dose was received at 6:00 in the morning. Patient does not need next dose till the . Meanwhile microbiology is pending blood culture and urine culture is pending as well. As of this admission diagnoses become sepsis with urinary tract infection early stage, possible aspiration pneumonia versus severe bronchitis with severe dehydration altered mental status and debility. No further hemorrhagic cystitis or bleeding urine tejada. Back on her anticoagulation. Will resume her home meds continue to watch this closely depend on her presentation and progression might require to see infectious disease. 06/20/2024: Patient is doing slightly better today, she had urinary tract infection with sepsis urine culture currently growing gram-negative bacilli final is not complete still on Rocephin for now should be continued. Repeat chest x-ray for the second time came back negative with no aspiration pneumonia. Stable to have slight abdominal pain flat abdominal x-ray was order this morning and was unremarkable patient had peg tube feeding with slight vasculature or vascular calcification around the splenic artery with no other major abnormality no sign of obstruction. Laboratory value showing anemia with hemoglobin down to 8.1 white blood cell count from 14,000 creatinine is up slightly today with GFR down to 50. She will be seeing speech therapy and also custom framing specialist to help to navigate him probably finalize nutrition plan through PEG tube. 06/21/2024: She is feeling slightly better clinically stable today white blood cells 7.1 no change in hemoglobin so far kidney function with GFR down to 45 with normal electrolytes. Culture still showing gram-negative bacilli not finalized yet. Will consult infectious disease and prepare for possible need for IV antibiotics meanwhile patient is not showing any major sign and symptom of sepsis. Also patient has been seen speech and dietitian her PEG feeding has been finalized and prepare hopefully to return back to [facility] as early as tomorrow. 06/22/2024: Patient is doing much better today, speech has cleared patient to drink some fluid with take it, her nutrition is up and PEG tube to the max. Laboratory value did not show much change. Her urine culture positive for Pseudomonas might require IV antibiotics however will might settle on doing Cipro for total of 7 to 10 days and waiting for infectious disease to finalize the plan for antibiotic management. Patient will be returning back tomorrow with today. REVIEW OF SYSTEMS: CONSTITUTIONAL: Well-developed in no respiratory distress. Still having slight cough and wheezing. EYES: No icterus sclerae, no conjunctivitis. EARS, NOSE, MOUTH, THROAT, and FACE: No sore throat, lymphadenopathy, carotid bruits or deformity. Mild droopy face the left side. RESPIRATORY: Mild shortness of breath and dyspnea with no cough or wheezes. CARDIOVASCULAR: Positive palpitation and A-fib with no angina positive PND and orthopnea. GASTROINTESTINAL: Slight abdominal pain with nausea diarrhea and bloody with/tarry bowel movement along with significant hematuria. GENITOURINARY: Irritation discomfort with abnormal irregular urine in the catheter. INTEGUMENT/BREAST: Negative for any muscular injury with mild osteoarthritis.. HEMATOLOGIC/LYMPHATIC: Negative for bleed or purpura. MUSCULOSKELTAL: Generalized myalgia and arthralgia. NEURLOGICAL: She is alert slightly confused still have significant weakness in the right side. BEHAVIORAL/PSYCH: Negative. ENDOCRINE: Negative. PHYSICAL EXAMINATION: General Appearance: Alert, slightly confused in no distress. Neck HEENT: Supple, no lymphadenopathy, no thyroid enlargement, no carotid bruits. Lungs: Decreased expansion bilaterally with fine rhonchi positive mild rhonchi but no wheezes. Chest Wall: Decreased expansion with deep inspiration no tenderness and no deformity was found on exam, no costochondral pain or discomfort. Heart: Irregular rate and rhythm, S1, S2 positive severe tachycardia positive ejection murmur. Back: Symmetric, no curvature, ROM normal, no CVA tenderness. Abdomen: Soft with positive bowel sounds slight discomfort lower abdominal region area mostly epigastric along with mid lower abdominal area no rebound or rigidity. Extremities: Trace edema without cyanotic. Pulses: 2+ and symmetric. Skin: Skin color, texture, tugor normal, no rashes or lesions. Neurologic: Alert slightly confused. Cranial nerves II through XII slight defect in cranial nerve VII on the right side., Significant weakness in the right side compared to the left side also had more spastic muscle in the left leg. Assessment and plan: _Altered mental status: Combination of urinary tract infection, hypoxia, despite the high risk for aspiration and required suspicion of aspiration pneumonia patient chest x-ray remain negative and patient does not show any sign of right lower lobe pneumonia. _Acute episode of sepsis with urinary tract infection: Urine culture is positive for gram-negative bacilli white blood cells down treatment with Rocephin has been working good will consult infectious disease change antibiotics accordingly and probably plan to change antibiotics to something suitable for 2 weeks when she returned back to [facility]. _Abdominal pain and distention: X-ray does not show any sign of obstruction Zofran again continue conservative management watch with PEG feeding to make sure is no Sign of perforation or any other abnormality. _Severe dysphagia and aphasia: Still seen speech, had PEG feeding continue current management speech therapy with recommendation while she is in the hospital. _Recent history of stroke with right-sided weakness: Continue physical therapy also patient still on feeding via PEG tube. _Acute kidney injury: With chronic kidney disease, continue hydration with the effect of the low blood pressure along with sepsis affecting kidney function there is no major damage we will continue to watch kidney function carefully. _A-fib with RVR: Remain on Eliquis 5 mg twice a day still on Coreg 12.5 mg twice a day as well pulse rate seems holding better at this time. _Acute blood loss anemia_with multiple unit of blood transfusion last few months. _Atherosclerotic heart disease: Post PCI and stent placement from October has been seeing cardiology she needs more assurance probably family need to be more involved making sure she is taking her medication on time and that she does not run out of medication. Consult cardiology holding off on antiplatelet agent for now because of the bleed. _Chronic systolic congestive heart failure: Not been able to keep up with her current medication will watch symptoms carefully and try to avoid fluid overload. _Type 2 diabetes: Has been doing well resume insulin with sliding scale coverage and was on Jardiance, continue medication. _Hypertension: Remain slightly bit hypotensive sometimes required midodrine in the meanwhile continue to be treated with losartan 50 mg a day along with Coreg 12.5 mg twice a day. _Debility: Since her stroke continue to reside at [facility] her was moved and obviously after his last hospitalization in the same room. _Chronic neuropathy: She is not on any suppressive medication or management. Discussion: Culture is positive for Pseudomonas patient hopefully will be going back to [facility] on antibiotic for total of 7 to 10 days sometimes in the afternoon today. Objective - Vital Signs Vital signs: Vital Signs Temp 97.9 F 06/22/24 02:00 Pulse 81 06/22/24 02:00 Resp 18 06/22/24 02:00 BP 153/80 06/22/24 02:00 Pulse Ox 100 06/22/24 02:00 FiO2 Intake & Output 06/21/24 06/22/24 06/22/24 18:59 06:59 18:59 Output Total 725 800 Balance -725 -800 Weight 70.5 kg 70.5 kg Output: Urine 725 800 Other: Voiding Method Indwelling Catheter # Bowel Movements 1 2 - Labs CBC & Chem 7: 06/21/24 09:17 06/21/24 05:14 Labs: Abnormal Lab Results - Last 24 Hours (Table) 06/21/24 06/21/24 06/21/24 Range/Units 05:14 05:14 09:17 RBC 3.36 L 3.45 L (4.10-5.20) X 10*6/uL Hgb 7.7 L 8.3 L (12.0-15.0) g/dL Hct 25.9 L 26.5 L (37.2-46.3) % MCV 77.1 L 76.6 L (80.0-97.0) FL MCH 22.9 L 23.9 L (27.0-32.0) pg MCHC 29.7 L (32.0-37.0) g/dL RDW 17.3 H 16.6 H (11.5-14.5) % Plt Count 452 H 514 H (140-440) X 10*3/uL MPV 9.1 L (9.5-12.2) FL Lymphocytes # 0.7 L (1.0-4.8) k/uL Potassium 3.3 L (3.5-5.5) mmol/L Chloride 110 H (96-109) mmol/L BUN 33.1 H (9.0-27.0) mg/dL Est GFR (CKD-EPI) 45 L (>=60) BUN/Creatinine Ratio 27.58 H (12.00-20.00) Ratio Glucose 131 H (70-110) mg/dL POC Glucose (mg/dL) (70-110) mg/dL Calcium 7.7 L (8.7-10.3) mg/dL Total Protein 5.6 L (6.2-8.2) g/dL Albumin 2.4 L (3.8-4.9) g/dL Albumin/Globulin Ratio 0.75 L (1.60-3.17) Ratio 06/21/24 06/21/24 06/21/24 Range/Units 11:57 16:56 20:24 RBC (4.10-5.20) X 10*6/uL Hgb (12.0-15.0) g/dL Hct (37.2-46.3) % MCV (80.0-97.0) FL MCH (27.0-32.0) pg MCHC (32.0-37.0) g/dL RDW (11.5-14.5) % Plt Count (140-440) X 10*3/uL MPV (9.5-12.2) FL Lymphocytes # (1.0-4.8) k/uL Potassium (3.5-5.5) mmol/L Chloride (96-109) mmol/L BUN (9.0-27.0) mg/dL Est GFR (CKD-EPI) (>=60) BUN/Creatinine Ratio (12.00-20.00) Ratio Glucose (70-110) mg/dL POC Glucose (mg/dL) 203 H 250 H 206 H (70-110) mg/dL Calcium (8.7-10.3) mg/dL Total Protein (6.2-8.2) g/dL Albumin (3.8-4.9) g/dL Albumin/Globulin Ratio (1.60-3.17) Ratio 06/22/24 Range/Units 07:14 RBC (4.10-5.20) X 10*6/uL Hgb (12.0-15.0) g/dL Hct (37.2-46.3) % MCV (80.0-97.0) FL MCH (27.0-32.0) pg MCHC (32.0-37.0) g/dL RDW (11.5-14.5) % Plt Count (140-440) X 10*3/uL MPV (9.5-12.2) FL Lymphocytes # (1.0-4.8) k/uL Potassium (3.5-5.5) mmol/L Chloride (96-109) mmol/L BUN (9.0-27.0) mg/dL Est GFR (CKD-EPI) (>=60) BUN/Creatinine Ratio (12.00-20.00) Ratio Glucose (70-110) mg/dL POC Glucose (mg/dL) 254 H (70-110) mg/dL Calcium (8.7-10.3) mg/dL Total Protein (6.2-8.2) g/dL Albumin (3.8-4.9) g/dL Albumin/Globulin Ratio (1.60-3.17) Ratio Microbiology - Last 24 Hours (Table) 06/19/24 05:13 Blood Culture - Preliminary Blood
[2024-06-22 11:06] VITALS: BMI 29.3
[2024-06-22 11:23] LABS: Glucose,Whole Blood 235 mg/dL (70-110)
[2024-06-22 14:19] VITALS: BP 149/73; PULSE 85; TEMP 98
--- NOTE | 2024-06-22 15:06 | P.PN ---
Subjective Progress Note Date: 06/22/24 Principal diagnosis: Reason for follow up with a Pseudomonas catheter associated UTI Patient is a 84-year-old female with a past medical history significant for atrial fibrillation diabetes mellitus hypertension osteoarthritis patient presenting to the hospital for evaluation of fever patient did have chronic indwelling Streeter catheter with a positive UA concerning for symptomatic urinary tract infection. On today's evaluation that is 06/22/2024, Patient is afebrile patient is currently on room air and denies having any shortness of breath, the patient denies any chest pain or cough, the patient denies any nausea vomiting did not have any abdominal pain and no diarrhea. Patient did not have any CBC done today urine has been finalized with a Pseudomonas that is sensitive to Cipro blood culture has been negative abdominal ultrasound did not show any hydronephrosis Objective - Vital Signs Vital signs: Vital Signs Temp 98.2 F 06/22/24 07:15 Pulse 83 06/22/24 07:15 Resp 16 06/22/24 07:15 BP 147/67 06/22/24 07:15 Pulse Ox 98 06/22/24 07:15 FiO2 Intake & Output 06/21/24 06/22/24 06/22/24 18:59 06:59 18:59 Output Total 725 800 Balance -725 -800 Weight 70.5 kg 70.5 kg 70.5 kg Output: Urine 725 800 Other: Voiding Method Indwelling Catheter # Bowel Movements 1 2 - Exam GENERAL DESCRIPTION: An elderly female lying in bed in no distress RESPIRATORY SYSTEM: Unlabored breathing , decreased breath sounds at bases HEART: S1 S2 regular rate and rhythm , ABDOMEN: Soft , no tenderness EXTREMITIES: No edema feet - Labs CBC & Chem 7: 06/21/24 09:17 06/21/24 05:14 Labs: Abnormal Lab Results - Last 24 Hours (Table) 06/21/24 06/21/24 06/21/24 Range/Units 11:57 16:56 20:24 POC Glucose (mg/dL) 203 H 250 H 206 H (70-110) mg/dL Hemoglobin A1c (<=6.0) % 06/22/24 06/22/24 06/22/24 Range/Units 06:00 07:14 11:22 POC Glucose (mg/dL) 254 H 235 H (70-110) mg/dL Hemoglobin A1c 7.8 H (<=6.0) % Microbiology - Last 24 Hours (Table) 06/19/24 05:15 Urine Culture - Final Urine,Voided Pseudomonas aeruginosa 06/19/24 05:13 Blood Culture - Preliminary Blood Assessment and Plan (1) Fever Current Visit: Yes Status: Acute Code(s): R50.9 - FEVER, UNSPECIFIED SNOMED Code(s): 573023604 (2) UTI (urinary tract infection) Current Visit: Yes Status: Acute Code(s): N39.0 - URINARY TRACT INFECTION, SITE NOT SPECIFIED SNOMED Code(s): 74390700 (3) Sepsis Current Visit: Yes Status: Acute Code(s): A41.9 - SEPSIS, UNSPECIFIED ORGANISM SNOMED Code(s): 71190177 Plan: 1patient presented to hospital with sepsis in this patient who did have a fever elevated white count source is likely catheter associated UTI with a last urine culture in April 2024 was Pseudomonas aeruginosa we will need to treat as a deep infection keeping in mind fever and elevated white count and need to rule out any structure abnormality 2-ultrasound of the kidney bladder area did not show any structural abnormality 3-urine has been finalized with Pseudomonas that is sensitive to Cipro we will consider with a 12-day course of oral Cipro on discharge medication has been entered into the discharge instruction as the patient is going back to the [facility] Dictation was produced using [employer] dictation software. please excuse any grammatical, word or spelling errors. Time with Patient: Less than 30
--- NOTE | 2024-06-22 15:09 | P.DS ---
Providers Date of admission: 06/19/24 06:54 Attending physician: Francesco Gaston Consults: 06/21/24 11:16 Consult Physician Routine Consulting Provider: Tom Ramos Consult Reason/Comments: UTI with Sepsis ?? need for recordist chief IV Abx in [place] Do you want consulting provider notified?: Yes Primary care physician: [facility]: HISTORY OF PRESENT ILLNESS: 84-year-old with active medical history of A-fib, type 2 diabetes, thrombotic stroke, history of uterine cancer, acute on chronic kidney disease, mild memory loss, history of atherosclerotic heart disease, cardiomyopathy, hyperlipidemia, chronic neuropathy, chronic arrhythmia, who was hospitalized since February at [facility] for what seems to be stroke from the severity of her hemorrhage when she was at [facility] last time her anticoagulation was stopped and prevention from creating major disaster with acute bleed required many blood transfusion and hemorrhagic urine was mostly secondary to radiation therapy from early patient ended up having thrombotic stroke and the been transferred to the emergency department at [facility] and after being there for couple days was transferred down to [facility] with complication of stroke consistent with aphasia, dysphagia, significant right-sided weakness and ended up having PEG tube and has been doing speech therapy and physical therapy all along since. Patient had recurrent UTI many times with significant hemorrhagic cystitis in the past. She developed to have significant altered mental status last 24 hours appeared to admission consistent with fever chills worsening cough staff at [facility] thought she might have aspiration with the choking sensation and the cough and that he is sent to the emergency department after temperature rise up to be around 101. Was seen and evaluated her laboratory value shows white blood cell of 14,200 hemoglobin 8.7 hematocrit 27.4 with blood sugar of 207 creatinine is much better than when she had earlier with GFR up to 54. Urine was severely positive, chest x-ray shows hyperinflation with slight COPD with no significant consolidation with more picture of pneumonia. With again this is finding shortly after her episode might still be too early to notice aspiration pneumonia. With the urine being positive patient was initiated on IV antibiotic by the emergency department with Rocephin along with azithromycin first dose was received at 6:00 in the morning. Patient does not need next dose till the . Meanwhile microbiology is pending blood culture and urine culture is pending as well. As of this admission diagnoses become sepsis with urinary tract infection early stage, possible aspiration pneumonia versus severe bronchitis with severe dehydration altered mental status and debility. No further hemorrhagic cystitis or bleeding urine tejada. Back on her anticoagulation. Will resume her home meds continue to watch this closely depend on her presentation and progression might require to see infectious disease. 06/20/2024: Patient is doing slightly better today, she had urinary tract infection with sepsis urine culture currently growing gram-negative bacilli final is not complete still on Rocephin for now should be continued. Repeat chest x-ray for the second time came back negative with no aspiration pneumonia. Stable to have slight abdominal pain flat abdominal x-ray was order this morning and was unremarkable patient had peg tube feeding with slight vasculature or vascular calcification around the splenic artery with no other major abnormality no sign of obstruction. Laboratory value showing anemia with hemoglobin down to 8.1 white blood cell count from 14,000 creatinine is up slightly today with GFR down to 50. She will be seeing speech therapy and also financial solutions advisor to help to navigate him probably finalize nutrition plan through PEG tube. 06/21/2024: She is feeling slightly better clinically stable today white blood cells 7.1 no change in hemoglobin so far kidney function with GFR down to 45 with normal electrolytes. Culture still showing gram-negative bacilli not finalized yet. Will consult infectious disease and prepare for possible need for IV antibiotics meanwhile patient is not showing any major sign and symptom of sepsis. Also patient has been seen speech and dietitian her PEG feeding has been finalized and prepare hopefully to return back to [facility] as early as tomorrow. 06/22/2024: Patient is doing much better today, speech has cleared patient to drink some fluid with take it, her nutrition is up and PEG tube to the max. Laboratory value did not show much change. Her urine culture positive for Pseudomonas will continue management from [place] with ciprofloxacin 500 mg twice a day for total of 12 days. Patient will be returning back tomorrow with today. REVIEW OF SYSTEMS: CONSTITUTIONAL: Well-developed in no respiratory distress. Still having slight cough and wheezing. EYES: No icterus sclerae, no conjunctivitis. EARS, NOSE, MOUTH, THROAT, and FACE: No sore throat, lymphadenopathy, carotid bruits or deformity. Mild droopy face the left side. RESPIRATORY: Mild shortness of breath and dyspnea with no cough or wheezes. CARDIOVASCULAR: Positive palpitation and A-fib with no angina positive PND and orthopnea. GASTROINTESTINAL: Slight abdominal pain with nausea diarrhea and bloody with/tarry bowel movement along with significant hematuria. GENITOURINARY: Irritation discomfort with abnormal irregular urine in the catheter. INTEGUMENT/BREAST: Negative for any muscular injury with mild osteoarthritis.. HEMATOLOGIC/LYMPHATIC: Negative for bleed or purpura. MUSCULOSKELTAL: Generalized myalgia and arthralgia. NEURLOGICAL: She is alert slightly confused still have significant weakness in the right side. BEHAVIORAL/PSYCH: Negative. ENDOCRINE: Negative. PHYSICAL EXAMINATION: General Appearance: Alert, slightly confused in no distress. Neck HEENT: Supple, no lymphadenopathy, no thyroid enlargement, no carotid bruits. Lungs: Decreased expansion bilaterally with fine rhonchi positive mild rhonchi but no wheezes. Chest Wall: Decreased expansion with deep inspiration no tenderness and no deformity was found on exam, no costochondral pain or discomfort. Heart: Irregular rate and rhythm, S1, S2 positive severe tachycardia positive ejection murmur. Back: Symmetric, no curvature, ROM normal, no CVA tenderness. Abdomen: Soft with positive bowel sounds slight discomfort lower abdominal region area mostly epigastric along with mid lower abdominal area no rebound or rigidity. Extremities: Trace edema without cyanotic. Pulses: 2+ and symmetric. Skin: Skin color, texture, tugor normal, no rashes or lesions. Neurologic: Alert slightly confused. Cranial nerves II through XII slight defect in cranial nerve VII on the right side., Significant weakness in the right side compared to the left side also had more spastic muscle in the left leg. Assessment and plan: _Altered mental status: Combination of urinary tract infection, hypoxia, despite the high risk for aspiration and required suspicion of aspiration pneumonia patient chest x-ray remain negative and patient does not show any sign of right lower lobe pneumonia. _Acute episode of sepsis with urinary tract infection: Urine culture is positive for gram-negative bacilli white blood cells down treatment with Rocephin has been working good will consult infectious disease change antibiotics accordingly and probably plan to change antibiotics to something suitable for 2 weeks when she returned back to [facility]. _Abdominal pain and distention: X-ray does not show any sign of obstruction Zofr an again continue conservative management watch with PEG feeding to make sure is no Sign of perforation or any other abnormality. _Severe dysphagia and aphasia: Still seen speech, had PEG feeding continue current management speech therapy with recommendation while she is in the hospital. _Recent history of stroke with right-sided weakness: Continue physical therapy also patient still on feeding via PEG tube. _Acute kidney injury: With chronic kidney disease, continue hydration with the effect of the low blood pressure along with sepsis affecting kidney function t here is no major damage we will continue to watch kidney function carefully. _A-fib with RVR: Remain on Eliquis 5 mg twice a day still on Coreg 12.5 mg twice a day as well pulse rate seems holding better at this time. _Acute blood loss anemia_with multiple unit of blood transfusion last few months. _Atherosclerotic heart disease: Post PCI and stent placement from October has been seeing cardiology she needs more assurance probably family need to be more involved making sure she is taking her medication on time and that she does not run out of medication. Consult cardiology holding off on antiplatelet agent for now because of the bleed. _Chronic systolic congestive heart failure: Not been able to keep up with her current medication will watch symptoms carefully and try to avoid fluid overload. _Type 2 diabetes: Has been doing well resume insulin with sliding scale coverage and was on Jardiance, continue medication. _Hypertension: Remain slightly bit hypotensive sometimes required midodrine in the meanwhile continue to be treated with losartan 50 mg a day along with Coreg 12.5 mg twice a day. _Debility: Since her stroke continue to reside at [facility] her was moved and obviously after his last hospitalization in the same room. _Chronic neuropathy: She is not on any suppressive medication or management. Discussion: Culture is positive for Pseudomonas patient hopefully will be going back to [facility] on antibiotic for total of 7 to 10 days sometimes in the afternoon today. Hospital course: She was hospitalized last few days with altered mental status happened while she is in [facility] for over 24 hours with worsening symptom consistent with fever chills cough, her temperature was close to 101 respiratory culture came back negative, staff at [facility] observed patient having possible aspiration with suspicion for aspiration pneumonia at the time coming to the emergency department had white blood cell of 14,200 mildly elevated lactic acid with worsening kidney function GFR down to 54 urine at the time was positive chest x- ray did not show any officially sign of pneumonia but high suspicion for aspiration. 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 Her temperature become much better shortly after admission started on hydration continue her PEG feeding consult social service agency director repeat another chest x-ray failed to show any aspiration pneumonia for the second time. Will continue treatment for UTI culture at this point was still pending patient azithromycin was stopped and continue Rocephin only. Consult infectious disease awaiting for the final culture patient has been much better last 24 hours with better hydration kidney function no fever or chills and respond to IV management will be much better mental status are back to baseline since had stroke. Antibiotic was finalized by infectious disease for patient to be on ciprofloxacin 500 mg twice a day for total of 12 days. Patient is very stable to transfer back today to [facility]. Time spent on patient discharge was over 35 minutes. Patient Condition at Discharge: Stable Plan - Discharge Summary Discharge Rx Participant: No New Discharge Prescriptions: New Ciprofloxacin HCl [Cipro] 500 mg PO BID 12 Days #24 tab Continue carvediloL [Coreg] 12.5 mg PO BID INSULIN ASPART (NovoLOG) [NovoLOG (formulary)] See Protocol SQ ACHS Mag Hydrox/Al Hydrox/Simeth [Maalox] 15 ml PEG/G-TUBE QID PRN PRN Reason: Gi Upset Na Phos,M-B/Na Phos,Di-Ba [Fleet Adult] 133 ml RECTAL DAILY PRN PRN Reason: Constipation Saliva Stimulant Comb. No.3 [Biotene Moisturizing Mouth] 1 tsp MUCOUS MEM TID PRN PRN Reason: dry mouth/throat Empagliflozin [Jardiance] 10 mg PO DAILY Acetaminophen Tab [Tylenol] 500 mg PO Q6HR PRN tab PRN Reason: Fever And/ Or Pain Apixaban [Eliquis] 5 mg PEG/G-TUBE BID Atorvastatin [Lipitor] 40 mg PEG/G-TUBE DAILY bisacodyL [Dulcolax] 10 mg RECTAL DAILY PRN PRN Reason: Constipation Famotidine [Pepcid] 20 mg PEG/G-TUBE DAILY Losartan [Cozaar] 50 mg PEG/G-TUBE DAILY Magnesium Hydroxide [Milk of Magnesia Concentrate] 7,200 mg PEG/G-TUBE DAILY PRN PRN Reason: Constipation Discharge Medication List Empagliflozin [Jardiance] 10 mg PO DAILY 03/04/24 [History] Acetaminophen Tab [Tylenol] 500 mg PO Q6HR PRN tab 03/16/24 [Rx] Apixaban [Eliquis] 5 mg PEG/G-TUBE BID 06/19/24 [History] Atorvastatin [Lipitor] 40 mg PEG/G-TUBE DAILY 06/19/24 [History] Famotidine [Pepcid] 20 mg PEG/G-TUBE DAILY 06/19/24 [History] INSULIN ASPART (NovoLOG) [NovoLOG (formulary)] See Protocol SQ ACHS 06/19/24 [History] Losartan [Cozaar] 50 mg PEG/G-TUBE DAILY 06/19/24 [History] Mag Hydrox/Al Hydrox/Simeth [Maalox] 15 ml PEG/G-TUBE QID PRN 06/19/24 [History] Magnesium Hydroxide [Milk of Magnesia Concentrate] 7,200 mg PEG/G-TUBE DAILY PRN 06/19/24 [History] Na Phos,M-B/Na Phos,Di-Ba [Fleet Adult] 133 ml RECTAL DAILY PRN 06/19/24 [History] Saliva Stimulant Comb. No.3 [Biotene Moisturizing Mouth] 1 tsp MUCOUS MEM TID PRN 06/19/24 [History] bisacodyL [Dulcolax] 10 mg RECTAL DAILY PRN 06/19/24 [History] carvediloL [Coreg] 12.5 mg PO BID 06/19/24 [History] Ciprofloxacin HCl [Cipro] 500 mg PO BID 12 Days #24 tab 06/22/24 [Rx] Follow up Appointment(s)/Referral(s): Francesco Gasotn MD [Primary Care Provider] - 1-2 days Discharge Disposition: TRANSFER TO SNF/ECF
--- NOTE | 2024-06-22 18:14 | CDI ---
Documentation Clarification Form Date: 06/22/2024 05:54:44 PM From: Laquita Urbano RN, CCDS Phone: [phone] Admit Date: 06/19/2024 06:54:00 AM Patient Name: Martín Alcaraz Visit Number: [id number] Discharge Date: ATTENTION: The Clinical Documentation Specialists (CDI) and [facility] Coding Staff appreciate your assistance in clarifying documentation. Please respond to the clarification below the line at the bottom and electronically sign. The CDI & [facility] Coding staff will review the response and follow-up if needed. Please note: Queries are made part of the Legal Health Record. If you have any questions, please contact the author of this message via ITS. Doctor/Provider: Francesco Gaston UTI is documented in the H/P and subsequent progress notes and the patient has an indwelling Streeter catheter. Additional clarification regarding the etiology of the UTI is requested. History/Risk Factors: Atrial Fibrillation, Diabetes Mellitus, Hypertension, Thrombotic stroke, Uterine cancer, Hyperlipidemia, Dementia (per paramedics) Clinical Indicators: 84-year-old female presents from intermediate for evaluation of fever. Patient has indwelling Streeter catheter and is fed by PEG tube. Urinalysis: Leukocyte Esterase -Large, Urine WBC >182 Urine culture: Pseudomonas aeruginosa Blood Culture: No Growth after 72 hrs. Lab results: (06/19) WBC 14.2 HGB 9.7, Neutrophils 13., BUN 35 CR 0.98 GFR 54 06/19 VS: 110/70 118 18 100.6 96% RA 06/21 ID Consult: Presented to hospital with sepsis in this patient who did have fever elevated white count source is likely catheter associated UTI Treatment: Cefepime HC 1 GM IVPB Q 12 HRS Please clarify the etiology of the UTI, if known: [XX ] Streeter catheter [ ] UTI not related to catheter [ ] Other condition, please specify [ ] Unable to determine (Template Last Revised: November 2020) MTDD
--- NOTE | 2024-07-08 14:10 | CDI ---
Documentation Clarification Form Date: 07/08/2024 01:58:22 PM From: Tamiko Mancini Phone: Admit Date: 06/19/2024 06:54:00 AM Patient Name: Martín Alcaraz Visit Number: [id number] Discharge Date: 06/22/2024 05:53:00 PM ATTENTION: The Clinical Documentation Specialists (CDI) and [facility] Coding Staff appreciate your assistance in clarifying documentation. Please respond to the clarification below the line at the bottom and electronically sign. The CDI & [facility] Coding staff will review the response and follow-up if needed. Please note: Queries are made part of the Legal Health Record. If you have any questions, please contact the author of this message via ITS. Doctor/Provider: Francesco Gaston Unspecified CKD is documented Progress Notes. Additional clarification regarding the stage of CKD is requested. History/Risk Factors: 84yo F, BOLA on CKD, sepsis d/t catheter associated UTI, A Fib, DMII, HTN, HLD, Hx CVA sp PEG,Hx Uterine cx,Dementia(per EMT) Clinical Indicators: Patients Historical: BUN at 35 with creatinine 0.98 withGFRat 54 BUN: 06/19 35 06/20 34.6 06/21 33.1 eGFR: 06/19 54-62 06/20 50 06/21 45 CR: 06/19 0.98 BUN/Cr%: 06/20 31.45 06/21 27.58 Treatment: continue hydration with the effect of the low blood pressure along with sepsis affecting kidney function there is no major damage we will continue to watch kidney function carefully. Please clarify the stage of the CKD, if known: [ ] CKD Stage 2 [ XX ] CKD Stage 3a [ ] CKD Stage 3b [ ] Other, please specify [ ] Unable to determine Reference: National Kid[employer] Stage 1 eGFR = 90 and kidney damage for =3 months Stage 2 eGFR 60-89 and kidney damage for =3 months Stage 3a eGFR 45-59 and kidney damage for =3 months Stage 3b eGFR 30-44 and kidney damage for =3 months Stage 4 eGFR 15-29 r and kidney damage for =3 months Stage 5 eGFR <15 and kidney damage for =3 months (Template last revised: September 2023) MTDD
--- NOTE | 2024-07-08 14:23 | CDI ---
Documentation Clarification Form Date: 07/08/2024 02:11:18 PM From: Tamiko Mancini Phone: Admit Date: 06/19/2024 06:54:00 AM Patient Name: Martín Alcaraz Visit Number: [id number] Discharge Date: 06/22/2024 05:53:00 PM ATTENTION: The Clinical Documentation Specialists (CDI) and [facility] Coding Staff appreciate your assistance in clarifying documentation. Please respond to the clarification below the line at the bottom and electronically sign. The CDI & [facility] Coding staff will review the response and follow-up if needed. Please note: Queries are made part of the Legal Health Record. If you have any questions, please contact the author of this message via ITS. Doctor/Provider: Francesco Gaston Your patient has diagnostic/radiology results: blood sugar 207. Please clarify if there is an additional diagnosis and/or clinical significance related to this result. History/Risk Factors: 84yo F, BOLA on CKD, sepsis d/t catheter associated UTI, A Fib, IDDMII, HTN, HLD, Hx CVA sp PEG, Hx Uterine cx, Dementia (per EMT) Home Meds: NovoLOG; Semaglutide[Rybelsus] 7 mg PO DAILY; Empagliflozin [Jardiance] 10 mg PO HS Clinical indicators: A1C: 7.8 Glucose: 06/19 207 06/21 131-203 06/22 131-254 Treatment: Has been doing well resume insulin with sliding scalecoverage and was on Jardiance, continue medication. Is there an additional diagnosis and/or clinical significance related to the above diagnostic/radiology result? [ XX ] Diabetes Mellitus with hyperglycemia [ ] Diabetes Mellitus with hyperglycemia due to (please specify cause) [ ] Result is not clinically significant (no additional diagnosis) [ ] Other, please specify [ ] Unable to determine (Template Last Reviewed: October 2020) MTDD
== END 2024-06-22 17:53 | DRG 698 ==
LOC: EC 04:45 → 5NMEDONC 06:54
PROVIDERS: ADMIT Internal Medicine Geriatric Medicine; ATTEND Internal Medicine Geriatric Medicine
DX: T83.511A Infection and inflammatory reaction due to indwelling urethral catheter, initial encounter (principal); A41.52 Sepsis due to Pseudomonas; N17.9 Acute kidney failure, unspecified; I42.9 Cardiomyopathy, unspecified; I13.0 Hypertensive heart and chronic kidney disease with heart failure and stage 1 through stage 4 chronic kidney disease, or unspecified chronic kidney disease; D62 Acute posthemorrhagic anemia; I69.351 Hemiplegia and hemiparesis following cerebral infarction affecting right dominant side; I50.22 Chronic systolic (congestive) heart failure; R13.19 Other dysphagia; E11.22 Type 2 diabetes mellitus with diabetic chronic kidney disease; E11.40 Type 2 diabetes mellitus with diabetic neuropathy, unspecified; F03.90 Unspecified dementia, unspecified severity, without behavioral disturbance, psychotic disturbance, mood disturbance, and anxiety; I95.9 Hypotension, unspecified; J44.9 Chronic obstructive pulmonary disease, unspecified; E11.65 Type 2 diabetes mellitus with hyperglycemia; I48.91 Unspecified atrial fibrillation; N18.31 Chronic kidney disease, stage 3a; Z79.4 Long term (current) use of insulin; Z93.1 Gastrostomy status; I69.391 Dysphagia following cerebral infarction; R09.02 Hypoxemia; N39.0 Urinary tract infection, site not specified; E78.5 Hyperlipidemia, unspecified; I25.10 Atherosclerotic heart disease of native coronary artery without angina pectoris; E86.0 Dehydration; R53.81 Other malaise; B96.5 Pseudomonas (aeruginosa) (mallei) (pseudomallei) as the cause of diseases classified elsewhere; Y73.1 Therapeutic (nonsurgical) and rehabilitative gastroenterology and urology devices associated with adverse incidents; Y84.6 Urinary catheterization as the cause of abnormal reaction of the patient, or of later complication, without mention of misadventure at the time of the procedure; Z79.01 Long term (current) use of anticoagulants; Z79.899 Other long term (current) drug therapy; Z95.5 Presence of coronary angioplasty implant and graft; Z85.42 Personal history of malignant neoplasm of other parts of uterus; Z79.84 Long term (current) use of oral hypoglycemic drugs; Z79.85 Long-term (current) use of injectable non-insulin antidiabetic drugs; Z79.82 Long term (current) use of aspirin; Z79.890 Hormone replacement therapy
CPT/HCPCS: 36415; 71045; 74019; 76770; 80053; 81001; 83036; 83605; 85025; 85027; 85610; 85730; 87040; 87077; 87086; 87186; 87636; 93005; 96361; 96365; 96366; 96367; 99285

== ENCOUNTER 2024-07-27 16:20 | Inpatient (IN) | payer MEDICARE ==
--- NOTE | 2024-07-27 16:25 | ED ---
Recheck HPI - General Stated Complaint: Dislodged Peg Tube Time Seen by Provider: 07/27/24 16:21 Source: RN notes reviewed, old records reviewed Limitations: no limitations - History of Present Illness Initial Comments: This is an 84-year-old female presenting today for evaluation of PEG tube evaluation with dislodged PEG tube Complaint: abnormal lab Returns Today for: Called Because of Abnormal Lab/Test, persistent/worsening pain related to initial visit Symptoms Since Prior Visit: no new symptoms Context: called for abnormal lab result Associated Symptoms: none Treatments Prior to Arrival: other (0) - Related Data Home Medications Medication Instructions Recorded Confirmed Empagliflozin [Jardiance] 10 mg PEG/G-TUBE DAILY 03/04/24 07/27/24 Apixaban [Eliquis] 5 mg PEG/G-TUBE BID 06/19/24 07/27/24 Atorvastatin [Lipitor] 40 mg PEG/G-TUBE DAILY 06/19/24 07/27/24 Famotidine [Pepcid] 20 mg PEG/G-TUBE DAILY 06/19/24 07/27/24 Magnesium Hydroxide [Milk of 7,200 mg PEG/G-TUBE DAILY PRN 06/19/24 07/27/24 Magnesia Concentrate] Na Phos,M-B/Na Phos,Di-Ba [Fleet 133 ml RECTAL DAILY PRN 06/19/24 07/27/24 Adult] Saliva Stimulant Comb. No.3 1 tsp MUCOUS MEM TID PRN 06/19/24 07/27/24 [Biotene Moisturizing Mouth] bisacodyL [Dulcolax] 10 mg RECTAL DAILY PRN 06/19/24 07/27/24 carvediloL [Coreg] 12.5 mg PEG/G-TUBE BID 06/19/24 07/27/24 Acetaminophen Tab [Tylenol] 500 mg PEG/G-TUBE Q6HR PRN 07/27/24 07/27/24 Cholestyramine (with Sugar) 4 gm PEG/G-TUBE DAILY 07/27/24 07/27/24 [Cholestyramine Packet] Furosemide [Lasix] 20 mg PEG/G-TUBE DAILY 07/27/24 07/27/24 Hydrophilic Cream [Triad (Kerodex 1 applic TOPICAL BID 07/27/24 07/27/24 geq)] INSULIN LISPRO (humaLOG) [humaLOG] 5 units SQ AC-TID 07/27/24 07/27/24 INSULIN LISPRO (humaLOG) [humaLOG] See Protocol SQ ACHS 07/27/24 07/27/24 Nystatin 100,000Unit/gm Cream 1 applic TOPICAL BID 07/27/24 07/27/24 [Mycostatin Cream] Potassium Chloride ER [K-Dur 10] 10 meq PEG/G-TUBE DAILY 07/27/24 07/27/24 Previous Rx's Medication Instructions Recorded Ferrous Sulfate Oral Elixir 300 mg PEG/G-TUBE BID-W/MEALS ml 07/30/24 [Feosol Liquid] Lactulose [Cephulac] 30 gm PEG/G-TUBE BID ml 07/30/24 Metoclopramide Oral Soln [Reglan 5 mg PEG/G-TUBE DAILY #30 ml 07/30/24 Oral Soln] Simethicone 40 mg/0.6 ml Drops 40 mg PEG/G-TUBE QID ml 07/30/24 [Mylicon Drops] Allergies Allergy/AdvReac Type Severity Reaction Status Date / Time bacitracin Allergy Rash/Hives Verified 07/27/24 17:41 [From Neosporin ([id number])] ibuprofen Allergy Anaphylaxis Verified 07/27/24 17:41 & Rash all over neomycin Allergy Rash/Hives Verified 07/27/24 17:41 [From Neosporin ([id number])] polymyxin B Allergy Rash/Hives Verified 07/27/24 17:41 [From Neosporin ([id number])] Review of Systems ROS Statement: Those systems with pertinent positive or pertinent negative responses have been documented in the HPI. ROS Other: All systems not noted in ROS Statement are negative. Past Medical History Past Medical History: Atrial Fibrillation, Diabetes Mellitus, Hypertension, Osteoarthritis (OA) Additional Past Medical History / Comment(s): uterine cancer, incontinent of urine History of Any Multi-Drug Resistant Organisms: None Reported Past Surgical History: No Surgical Hx Reported Additional Past Surgical History / Comment(s): cataract & carpal-tunnel bilat. Past Anesthesia/Blood Transfusion Reactions: No Reported Reaction Past Psychological History: No Psychological Hx Reported Smoking Status: Never smoker Past Alcohol Use History: None Reported Past Drug Use History: None Reported - Past Family History Mother Family Medical History: Coronary Artery Disease (CAD), Diabetes Mellitus, Hypertension, Mitral Valve Prolapse (MVP) Father Family Medical History: Hypertension Additional Family Medical History / Comment(s): father hip surgery General Exam General appearance: alert, in no apparent distress Head exam: Present: atraumatic, normocephalic, normal inspection Eye exam: Present: normal appearance, PERRL, EOMI. Absent: scleral icterus, conjunctival injection, periorbital swelling ENT exam: Present: normal exam, mucous membranes moist Neck exam: Present: normal inspection. Absent: tenderness, meningismus, lymphadenopathy Respiratory exam: Present: normal lung sounds bilaterally. Absent: respiratory distress, wheezes, rales, rhonchi, stridor Cardiovascular Exam: Present: regular rate, normal rhythm, normal heart sounds. Absent: systolic murmur, diastolic murmur, rubs, gallop, clicks GI/Abdominal exam: Present: soft, normal bowel sounds. Absent: distended, tenderness, guarding, rebound, rigid Extremities exam: Present: normal inspection, full ROM, normal capillary refill. Absent: tenderness, pedal edema, joint swelling, calf tenderness Back exam: Present: normal inspection Neurological exam: Present: alert, oriented X3, CN II-XII intact Psychiatric exam: Present: normal affect, normal mood Skin exam: Present: warm, dry, intact, normal color. Absent: rash Course Vital Signs 07/27/24 07/27/24 07/27/24 16:29 19:27 21:37 Temperature 97.8 F Pulse Rate 79 72 57 L Respiratory 18 18 16 Rate Blood Pressure 98/56 132/76 145/82 O2 Sat by Pulse 100 97 94 L Oximetry 07/27/24 23:01 Temperature Pulse Rate 94 Respiratory 18 Rate Blood Pressure 116/71 O2 Sat by Pulse 99 Oximetry - Reevaluation(s) Reevaluation #1: 07/27/24 16:54 Medical records reviewed Reevaluation #2: 07/27/24 21:00 Unable to replace PEG tube Reevaluation #3: 07/27/24 21:00 Patient informed of results questions answered Reevaluation #4: Was pt. sent in by a medical professional or institution (, PA, NET DEVELOPER, urgent care, hospital, or [place] health care facility...) When possible be specific @ -no Did you speak to anyone other than the patient for history (EMS, parent, family, police, friend...)? What history was obtained from this source @ -no Did you review nursing and triage notes (agree or disagree)? Why? @ -agree Are old charts reviewed (outside hosp., previous admission, EMS record, old EKG, old radiological studies, urgent care reports/EKG's, [place] health care facility records)? Report findings @ -yes Differential Diagnosis (chest pain, altered mental status, abdominal pain women, abdominal pain men, vaginal bleeding, weakness, fever, dyspnea, syncope, headache, dizziness, GI bleed, back pain, seizure, CVA, palpatations, mental health, musculoskeletal)? @ -prior EKG interpreted by me (3pts min.). @ -no X-rays interpreted by me (1pt min.). @ -Yes contrast is not in right spot CT interpreted by me (1pt min.). @ -Yes PEG tube is not in correct spot U/S interpreted by me (1pt. min.). @ -no What testing was considered but not performed or refused? (CT, X-rays, U/S, labs)? Why? @ -none What meds were considered but not given or refused? Why? @ -none Did you discuss the management of the patient with other professionals (professionals i.e. , PA, NET DEVELOPER, lab, RT, psych nurse, social service manager, tool/die maker, teacher, officer lieutenant, binder caser)? Give summary @ -no Was smoking cessation discussed for >3mins.? @ -no Was critical care preformed (if so, how long)? @ -no Were there social determinants of health that impacted care today? How? (Homelessness, low income, unemployed, alcoholism, drug addiction, transportation, low edu. Level, literacy, decrease access to med. care, snf, rehab)? @ -none Was there de-escalation of care discussed even if they declined (Discuss DNR or withdrawal of care, Hospice)? DNR status @ -no What co-morbidities impacted this encounter? (DM, HTN, Smoking, COPD, CAD, Cancer, CVA, ARF, Chemo, Hep., AIDS, mental health diagnosis, sleep apnea, mor bid obesity)? @ -none Was patient admitted / discharged? Hospital course, mention meds given and ro chicken ranch, prescriptions, significant lab abnormalities, going to OR and other pertinent info. @ - 84 female will be admitted for on ability or inability to replace PEG tube Admitted Undiagnosed new problem with uncertain prognosis? @ -no Drug Therapy requiring intensive monitoring for toxicity (Heparin, Nitro, Insulin, Cardizem)? @ -no Were any procedures done? @ -no Diagnosis/symptom? @ -PEG tube malfunction Acute, or Chronic, or Acute on Chronic? @ -Acute Uncomplicated (without systemic symptoms) or Complicated (systemic symptoms)? @ -Complicated Side effects of treatment? @ -no Exacerbation, Progression, or Severe Exacerbation? @ -exacerbation Poses a threat to life or bodily function? How? (Chest pain, USA, SC, pneumonia, PE, COPD, DKA, ARF, appy, cholecystitis, CVA, Diverticulitis, Homicidal, Suicidal, threat to staff... and all critical care pts) @ -yes unable to place feeding tube - Consultations Consultation #1: Spoke with [facility] who agrees to admit this patient Consultation #2: Spoke with Dr. Pierre who does not want primary admission Procedures - Feeding Tube Replacement Reason for Replacement: fell out, patient removed/pulled out Initial Tube Inserted: greater than 2 weeks Type of Tube: gastrostomy Use of Tube: medications only, feedings only, medications and feeding Insertion Site Prior to Procedure: erythematous, tender, swollen Patient Tolerated Procedure: no complications Complications: unable to insert, local bleeding, pain Medical Decision Making - Medical Decision Making 84 female will be admitted for on ability or inability to replace PEG tube - Lab Data Result diagrams: 07/30/24 04:30 07/30/24 04:30 - EKG Data -: EKG Interpreted by Me (EKG is A-fib 94 QRS 103 QTc 412) - Radiology Data Radiology results: report reviewed (CT abdomen pelvis shows PEG tube and subcutaneous tissue, x-ray does not show satisfactory placement), image reviewed Disposition Clinical Impression: PEG tube malfunction Disposition: ADMITTED IP TO THIS HOSP Condition: Fair Is patient prescribed a controlled substance at d/c from ED?: No Time of Disposition: 21:00
--- NOTE | 2024-07-27 18:49 | CT ---
EXAMINATION TYPE: CT abdomen pelvis wo con DATE OF EXAM: 07/27/2024 6:41 PM COMPARISON: CT abdomen pelvis most recent from 03/21/2024. CLINICAL INDICATION: Female, 84 years old with history of pain; Pt arrived to ED by EMS coming from [facility] for dislodgged peg tube. TECHNIQUE: Axial CT abdomen pelvis wo con;Sagittal and coronal reformats were created on a separate workstation. Contrast used: mL of , (none if empty) Oral contrast used: without Oral Contrast (none if empty) CT DLP: 654.6 mGycm, Automated exposure control for dose reduction was used. FINDINGS: LOWER CHEST: Unremarkable ABDOMEN LIVER: Unremarkable GALLBLADDER AND BILE DUCTS: Layering increased densities within the lumen consistent with gallstones are present. PANCREAS: Unremarkable. SPLEEN: Unremarkable. ADRENAL GLANDS: Unremarkable. KIDNEYS AND URETERS: No evidence of hydronephrosis or renal calculus. The ureters are unremarkable. PELVIS BLADDER: Nondistended with Streeter catheter in place. REPRODUCTIVE: Uterus appears surgically absent or atrophic. ABDOMEN & PELVIS STOMACH AND BOWEL: No evidence of bowel obstruction. Large stool burden in the sigmoid colon and rect um PERITONEUM/RETROPERITONEUM: No evidence of pneumoperitoneum or free fluid. VASCULATURE: No evidence of aortic aneurysm. MUSCULOSKELETAL: No acute osseous abnormalities LYMPH NODES: No gross evidence for lymphadenopathy. SOFT TISSUE/ABDOMINAL WALL: The PEG tube is terminating in the subcutaneous tissues. IMPRESSION: 1. The PEG tube is terminating in the subcutaneous tissues. 2. Streeter catheter in appropriate position. 3. Large amount stool correlate for fecal stasis.. 4. Cholelithiasis. [facility], Workstation: [id number], 07/27/2024 6:47 PM
--- NOTE | 2024-07-27 20:38 | XR ---
EXAMINATION TYPE: XR KUB DATE OF EXAM: 07/27/2024 8:18 PM COMPARISON: CT same day CLINICAL INDICATION: Female, 84 years old with history of PEGoGRAM; [facility] TECHNIQUE: One radiographic view of the abdomen was obtained after injection of Isovue-300 through th e PEG tube. FINDINGS/IMPRESSION: Contrast seen layering throughout the abdomen outside the lumen of the bowel. Findings compatible wit h CT same day with PEG tube in malposition. [facility], , 07/27/2024 8:35 PM
[2024-07-27] MEDS ORDERED: NALOXONE 0.4 MG/ML 1 ML VIAL IV PRN (20:57)
[2024-07-27] MEDS: MORPHINE SULFATE 4 MG/ML SYRINGE IV STA (21:25)
[2024-07-27] MEDS: ONDANSETRON 4 MG/2 ML VIAL IVP STA (21:26)
[2024-07-27] MEDS: SODIUM CHLORIDE 0.9% 1,000 ML IV STA (21:26)
[2024-07-27 21:31] LABS: Anisocytosis Slight; Basophils % (A) 0 %; Eosinophils # (A) 0.2 k/uL (0-0.7); Eosinophils % (A) 3 %; HCT 29.3 % (34.0-46.0); HGB 9.1 gm/dL (11.4-16.0); Hypochromasia Marked; Lymphocytes # (A) 0.8 k/uL (1.0-4.8); Lymphocytes % (A) 13 %; MCH 22.5 pg (25.0-35.0); MCHC 31.1 g/dL (31.0-37.0); MCV 72.3 fL (80.0-100.0); Mean Platelet Volume 6.4; Microcytosis Moderate; Monocytes # (A) 0.3 k/uL (0-1.0); Monocytes % (A) 5 %; Neutrophils # (A) 4.9 k/uL (1.3-7.7); Neutrophils % (A) 77 %; Platelet Count 573 k/uL (150-450); RBC 4.05 m/uL (3.80-5.40); RDW 18.4 % (11.5-15.5); WBC 6.3 k/uL (3.8-10.6)
--- NOTE | 2024-07-27 21:39 | XR ---
EXAMINATION TYPE: XR KUB DATE OF EXAM: 07/27/2024 9:33 PM COMPARISON: Same day radiographs and CT CLINICAL INDICATION: Female, 84 years old with history of PEGoGRAM#2; [facility] TECHNIQUE: One radiographic view of the abdomen was obtained. FINDINGS/IMPRESSION: Persistent malposition of the PEG tube. Contrast again appears to be layering throughout the abdomen. Contrast from prior exam is layering throughout the abdomen which limits evaluation of this exam. Schreiber rgical consultation recommended. [facility], , 07/27/2024 9:36 PM
[2024-07-27 22:00] LABS: ALT 21 U/L (4-34); AST 35 U/L (14-36); African American GFR (CKD) 60 (>60 ml/min/1.73 sqM); Albumin 2.9 g/dL (3.5-5.0); Alkaline Phosphatase 117 U/L (38-126); Anion Gap 3 mmol/L; Blood Urea Nitrogen 38 mg/dL (7-17); Calcium 8.1 mg/dL (8.4-10.2); Carbon Dioxide 27 mmol/L (22-30); Chloride 104 mmol/L (98-107); Glucose 138 mg/dL (74-99); INR 1.1 (<1.2); Magnesium 2.2 mg/dL (1.6-2.3); Non-African American GFR(CKD) 52 (>60 ml/min/1.73 sqM); Partial Thromboplastin Time 28.1 sec (22.0-30.0); Potassium 4.4 mmol/L (3.5-5.1); Prothrombin Time 12.1 sec (10.0-12.5); Sodium 134 mmol/L (137-145); Total Bilirubin 0.7 mg/dL (0.2-1.3); Total Protein 7.2 g/dL (6.3-8.2)
[2024-07-28 01:06] LABS: Glucose,Whole Blood 116 mg/dL (70-110)
[2024-07-28 06:08] LABS: Glucose,Whole Blood 100 mg/dL (70-110)
[2024-07-28 09:13] LABS: Basophils # (A) 0.02 X 10*3/uL (0.00-0.10); Basophils % (A) 0.2 %; Eosinophils # (A) 0.15 X 10*3/uL (0.04-0.35); Eosinophils % (A) 1.6 %; HCT 26.9 % (37.2-46.3); HGB 7.7 g/dL (12.0-15.0); Lymphocytes # (A) 1.01 X 10*3/uL (0.90-5.00); Lymphocytes % (A) 10.5 %; MCH 21.2 pg (27.0-32.0); MCHC 28.6 g/dL (32.0-37.0); MCV 73.9 FL (80.0-97.0); Mean Platelet Volume 8.7 FL (9.5-12.2); Monocytes # (A) 0.57 X 10*3/uL (0.20-1.00); Monocytes % (A) 5.9 %; NRBC Per 100 WBC 0 X 10*3/uL (0.00-0.01); Neutrophils # (A) 7.81 X 10*3/uL (1.80-7.70); Neutrophils % (A) 81.5 %; Platelet Count 453 X 10*3/uL (140-440); RBC 3.64 X 10*6/uL (4.10-5.20); RDW 19.6 % (11.5-14.5); WBC 9.59 X 10*3/uL (4.50-10.00)
[2024-07-28 09:22] LABS: ALT 17 U/L (8-44); AST 17 U/L (13-35); Albumin 2.6 g/dL (3.8-4.9); Albumin/Globulin Ratio 0.68 Ratio (1.60-3.17); Alkaline Phosphatase 84 U/L (41-126); BUN/Creat Ratio 28.25 Ratio (12.00-20.00); Blood Urea Nitrogen 33.9 mg/dL (9.0-27.0); Calcium 8.2 mg/dL (8.7-10.3); Carbon Dioxide 25.3 mmol/L (21.6-31.8); Chloride 102 mmol/L (96-109); Globulin 3.8 g/dL (1.6-3.3); Glucose 106 mg/dL (70-110); Magnesium 2.1 mg/dL (1.5-2.4); Phosphorus 3.9 mg/dL (2.4-5.1); Potassium 4.7 mmol/L (3.5-5.5); Sodium 136 mmol/L (135-145); Total Bilirubin 0.6 mg/dL (0.3-1.2); Total Protein 6.4 g/dL (6.2-8.2)
[2024-07-28] MEDS: PANTOPRAZOLE 40 MG/10 ML VIAL IV SCH (10:19)
[2024-07-28] MEDS ORDERED: bisacodyL 10 MG SUPP RECTAL PRN (10:42)
[2024-07-28] MEDS ORDERED: DEXTROSE 50% SYRINGE 50 ML IVP PRN ×2 (10:43)
[2024-07-28 12:23] LABS: Glucose,Whole Blood 102 mg/dL (70-110)
--- NOTE | 2024-07-28 12:32 | P.GSCN ---
History of Present Illness Consult date: 07/28/24 History of present illness: CHIEF COMPLAINT: PEG tube dislodgment HISTORY OF PRESENT ILLNESS: The patient is a 84-year-old female with pre- existing history of stroke and right-sided hemiparesis who is PEG tube dependent for nutrition. Per tensive the emergency room provider yesterday, feeding tube was unable to be placed. Patient is on Eliquis. Last known dose per discussion with her nurse is likely . Patient is verbal. At this time no abdominal pain. PAST MEDICAL HISTORY: See list and reviewed PAST SURGICAL HISTORY: See list and reviewed MEDICATIONS: See list and reviewed ALLERGIES: See list and reviewed SOCIAL HISTORY: See list and reviewed FAMILY HISTORY: See list and reviewed REVIEW OF ORGAN SYSTEMS: CONSTITUTIONAL: No fevers or chills. No recent weight loss. EYES: Denies any trouble with vision. No glasses. HEENT: No difficulties with hearing. No nosebleeds. No difficulty swallowing. RESPIRATORY: Denies pneumonia. Denies any troubles with breathing or dyspnea on exertion. CARDIOVASCULAR: On blood thinners. Has hypertensive heart disease. Has congestive heart failure. Has atrial fibrillation. GASTROINTESTINAL: Has gastrostomy tube. Has gastroesophageal reflux disease. GENITOURINARY: History of uterine cancer. NEUROLOGICAL: History of cerebrovascular accident with right-sided hemiparesis. MUSCULOSKELETAL: Has back pain, stiffness or joint arthritis. SKIN: No current skin cancer. No rash. PSYCHIATRIC: Denies current depression or suicidal thoughts. ENDOCRINE: Has diabetes type 2, insulin-dependent. HEME/LYMPHATIC: Denies any lumps and bumps around the neck. No recent deep venous thrombosis. ALLERGY/IMMUNOLOGY: No immunoglobulin therapy. No immune deficiencies. BREAST: Denies current breast lumps, pain or nipple discharge. PHYSICAL EXAM: VITALS: Reviewed CONSTITUTIONAL: Well developed and in no acute distress. EYES: Conjuctivae without sclera icterus. Extraocular movements grossly intact. HEAD, EARS, NOSE, THROAT: Moist buccal mucosa. Head is atraumatic, normocephalic. Hears conversational speech. No nasal drainage. NECK: Supple. No JV distention. No thyroidomegaly. RESPIRATORY: Non-labored respirations and equal bilateral excursions. No gross wheezes. CARDIOVASCULAR: Palpable 2+ radial pulses. ABDOMEN: Gastrostomy site with mild dried drainage. HENRRY gastrostomy tube noted. LYMPH: No neck lymphadenopathy. MUSCULOSKELETAL: No clubbing cyanosis or edema SKIN: Warm and well perfused with good skin turgor. NEUROLOGIC: Cranial nerves II through XII grossly intact. No focal or lateralizing signs. PSYCH: Appropriate affect. Alert and oriented to person, place and time. Di splays appropriate insight. CLINCAL LABS: Reviewed. Patient presents with anemia hemoglobin down 9.1-7.7 today. Albumin 2.6, hypoalbuminemia, malnutrition. Creatinine elevated 1.2. WBC normal 9.59. IMAGING: Imaging reviewed of CT abdomen pelvis demonstrates feeding tube not in the stomach within the subcutaneous tissue. Moderate stool retention noted. This is my independent interpretation. RADIOLOGY: Report reviewed. CT abdomen pelvis report impression reviewed demonstrating also noted gallstones. ASSESSMENT: 1. Malfunction of feeding tube 2. Stable vascular accident with sequelae, right hemiparesis 3. Severe protein malnutrition, gastrostomy tube dependent 4. Hypertensive heart disease with congestive heart failure 5. Atrial fibrillation, chronic 6. Moderate fecal retention/constipation 7. Chronic anticoagulant use 8. Acute blood loss anemia hemoglobin down 9.1-7.7, 24 hours 9. Insulin-dependent diabetes with complications PLAN: 1. IV fluid hydration. 2. Per discussion with nurse, patient has been off Eliquis almost 48 hours and will proceed with placement of gastrostomy tube using upper endoscopy 3. Recommend hold any blood thinners as patient has continued decline of her hemoglobin 4. She has moderate fecal retention and will need appropriate laxatives 5. Patient is elevated risk for complications due to pre-existing comorbidities including blood thinner use ADVANCE DIRECTIVE: CODE STATUS in chart Thank you for this kind consultation. Past Medical History Past Medical History: Atrial Fibrillation, CVA/TIA, Diabetes Mellitus, Hyperlipidemia, Hypertension, Osteoarthritis (OA), Renal Disease Additional Past Medical History / Comment(s): uterine cancer, incontinent of urine History of Any Multi-Drug Resistant Organisms: None Reported Past Surgical History: No Surgical Hx Reported Additional Past Surgical History / Comment(s): cataract & carpal-tunnel bilat. Past Anesthesia/Blood Transfusion Reactions: No Reported Reaction Past Psychological History: No Psychological Hx Reported Smoking Status: Never smoker Past Alcohol Use History: None Reported Past Drug Use History: None Reported - Past Family History Mother Family Medical History: Coronary Artery Disease (CAD), Diabetes Mellitus, Hypertension, Mitral Valve Prolapse (MVP) Father Family Medical History: Hypertension Additional Family Medical History / Comment(s): father hip surgery Medications and Allergies Home Medications Medication Instructions Recorded Confirmed Type Empagliflozin [Jardiance] 10 mg PEG/G-TUBE DAILY 03/04/24 07/27/24 History Apixaban [Eliquis] 5 mg PEG/G-TUBE BID 06/19/24 07/27/24 History Atorvastatin [Lipitor] 40 mg PEG/G-TUBE DAILY 06/19/24 07/27/24 History Famotidine [Pepcid] 20 mg PEG/G-TUBE DAILY 06/19/24 07/27/24 History Losartan [Cozaar] 50 mg PEG/G-TUBE DAILY 06/19/24 07/27/24 History Magnesium Hydroxide [Milk of 7,200 mg PEG/G-TUBE DAILY PRN 06/19/24 07/27/24 History Magnesia Concentrate] Na Phos,M-B/Na Phos,Di-Ba [Fleet 133 ml RECTAL DAILY PRN 06/19/24 07/27/24 History Adult] Saliva Stimulant Comb. No.3 1 tsp MUCOUS MEM TID PRN 06/19/24 07/27/24 History [Biotene Moisturizing Mouth] bisacodyL [Dulcolax] 10 mg RECTAL DAILY PRN 06/19/24 07/27/24 History carvediloL [Coreg] 12.5 mg PEG/G-TUBE BID 06/19/24 07/27/24 History Acetaminophen Tab [Tylenol] 500 mg PEG/G-TUBE Q6HR PRN 07/27/24 07/27/24 History Cholestyramine (with Sugar) 4 gm PEG/G-TUBE DAILY 07/27/24 07/27/24 History [Cholestyramine Packet] Furosemide [Lasix] 20 mg PEG/G-TUBE DAILY 07/27/24 07/27/24 History Hydrophilic Cream [Triad (Kerodex 1 applic TOPICAL BID 07/27/24 07/27/24 History geq)] INSULIN LISPRO (humaLOG) [humaLOG] 5 units SQ AC-TID 07/27/24 07/27/24 History INSULIN LISPRO (humaLOG) [humaLOG] See Protocol SQ ACHS 07/27/24 07/27/24 History Nystatin 100,000Unit/gm Cream 1 applic TOPICAL BID 07/27/24 07/27/24 History [Mycostatin Cream] Potassium Chloride ER [K-Dur 10] 10 meq PEG/G-TUBE DAILY 07/27/24 07/27/24 History Allergies Allergy/AdvReac Type Severity Reaction Status Date / Time bacitracin Allergy Rash/Hives Verified 07/27/24 17:41 [From Neosporin ([id number])] ibuprofen Allergy Anaphylaxis Verified 07/27/24 17:41 & Rash all over neomycin Allergy Rash/Hives Verified 07/27/24 17:41 [From Neosporin ([id number])] polymyxin B Allergy Rash/Hives Verified 07/27/24 17:41 [From Neosporin ([id number]-[id number])] Surgical - Exam Vital Signs Temp Pulse Resp BP Pulse Ox 97.8 F 79 18 98/56 100 07/27/24 16:29 07/27/24 16:29 07/27/24 16:29 07/27/24 16:29 07/27/24 16:29 Results - Labs 07/28/24 03:19 07/28/24 03:19 Abnormal Lab Results - Last 24 Hours (Table) 07/27/24 07/27/24 07/28/24 Range/Units 21:15 21:15 00:55 RBC (4.10-5.20) X 10*6/uL Hgb 9.1 L (11.4-16.0) gm/dL Hct 29.3 L (34.0-46.0) % MCV 72.3 L (80.0-100.0) fL MCH 22.5 L (25.0-35.0) pg MCHC (32.0-37.0) g/dL RDW 18.4 H (11.5-15.5) % Plt Count 573 H (150-450) k/uL MPV (9.5-12.2) FL Neutrophils # (1.80-7.70) X 10*3/uL Lymphocytes # 0.8 L (1.0-4.8) k/uL Sodium 134 L (137-145) mmol/L BUN 38 H (7-17) mg/dL Est GFR (CKD-EPI) (>=60) BUN/Creatinine Ratio (12.00-20.00) Ratio Glucose 138 H (74-99) mg/dL POC Glucose (mg/dL) 116 H (70-110) mg/dL Calcium 8.1 L (8.4-10.2) mg/dL Albumin 2.9 L (3.5-5.0) g/dL Globulin (1.6-3.3) g/dL Albumin/Globulin Ratio (1.60-3.17) Ratio 07/28/24 07/28/24 Range/Units 03:19 03:19 RBC 3.64 L (4.10-5.20) X 10*6/uL Hgb 7.7 L (11.4-16.0) gm/dL Hct 26.9 L (34.0-46.0) % MCV 73.9 L (80.0-100.0) fL MCH 21.2 L (25.0-35.0) pg MCHC 28.6 L (32.0-37.0) g/dL RDW 19.6 H (11.5-15.5) % Plt Count 453 H (150-450) k/uL MPV 8.7 L (9.5-12.2) FL Neutrophils # 7.81 H (1.80-7.70) X 10*3/uL Lymphocytes # (1.0-4.8) k/uL Sodium (137-145) mmol/L BUN 33.9 H (7-17) mg/dL Est GFR (CKD-EPI) 45 L (>=60) BUN/Creatinine Ratio 28.25 H (12.00-20.00) Ratio Glucose (74-99) mg/dL POC Glucose (mg/dL) (70-110) mg/dL Calcium 8.2 L (8.4-10.2) mg/dL Albumin 2.6 L (3.5-5.0) g/dL Globulin 3.8 H (1.6-3.3) g/dL Albumin/Globulin Ratio 0.68 L (1.60-3.17) Ratio Diabetes panel 07/27/24 07/28/24 Range/Units 21:15 03:19 Sodium 134 L 136 (137-145) mmol/L Potassium 4.4 4.7 (3.5-5.1) mmol/L Chloride 104 102 (98-107) mmol/L Carbon Dioxide 27 25.3 (22-30) mmol/L BUN 38 H 33.9 H (7-17) mg/dL Creatinine 1.01 1.2 (0.52-1.04) mg/dL Glucose 138 H 106 (74-99) mg/dL Calcium 8.1 L 8.2 L (8.4-10.2) mg/dL AST 35 17 (14-36) U/L ALT 21 17 (4-34) U/L Alkaline Phosphatase 117 84 (38-126) U/L Total Protein 7.2 6.4 (6.3-8.2) g/dL Albumin 2.9 L 2.6 L (3.5-5.0) g/dL Calcium panel 07/27/24 07/27/24 07/28/24 Range/Units 21:15 22:30 03:19 Calcium 8.1 L 8.2 L (8.4-10.2) mg/dL Phosphorus 3.8 3.9 (2.4-5.1) mg/dL Albumin 2.9 L 2.6 L (3.5-5.0) g/dL Pituitary panel 07/27/24 07/28/24 Range/Units 21:15 03:19 Sodium 134 L 136 (137-145) mmol/L Potassium 4.4 4.7 (3.5-5.1) mmol/L Chloride 104 102 (98-107) mmol/L Carbon Dioxide 27 25.3 (22-30) mmol/L BUN 38 H 33.9 H (7-17) mg/dL Creatinine 1.01 1.2 (0.52-1.04) mg/dL Glucose 138 H 106 (74-99) mg/dL Calcium 8.1 L 8.2 L (8.4-10.2) mg/dL Adrenal panel 07/27/24 07/28/24 Range/Units 21:15 03:19 Sodium 134 L 136 (137-145) mmol/L Potassium 4.4 4.7 (3.5-5.1) mmol/L Chloride 104 102 (98-107) mmol/L Carbon Dioxide 27 25.3 (22-30) mmol/L BUN 38 H 33.9 H (7-17) mg/dL Creatinine 1.01 1.2 (0.52-1.04) mg/dL Glucose 138 H 106 (74-99) mg/dL Calcium 8.1 L 8.2 L (8.4-10.2) mg/dL Total Bilirubin 0.7 0.6 (0.2-1.3) mg/dL AST 35 17 (14-36) U/L ALT 21 17 (4-34) U/L Alkaline Phosphatase 117 84 (38-126) U/L Total Protein 7.2 6.4 (6.3-8.2) g/dL Albumin 2.9 L 2.6 L (3.5-5.0) g/dL
[2024-07-28] MEDS: INSULIN ASPART (NovoLOG) 100 UNIT/ML VIAL SQ SCH (12:34)
[2024-07-28] MEDS ORDERED: PROPOFOL 10 MG/ML 20 ML VIAL IV ONE (12:52)
[2024-07-28] MEDS: IV FLUID CONTINUATION 1,000 ML IV ONE (13:06)
--- NOTE | 2024-07-28 14:09 | P.PCN ---
Date of Procedure: 07/28/24 Description of Procedure: PREOPERATIVE DIAGNOSIS: PEG tube malfunction Severe protein malnutrition History of cerebrovascular accidents with hemiparesis Atrial fibrillation Chronic anticoagulation POSTOPERATIVE DIAGNOSIS: PEG tube malfunction with dislodgment Severe protein malnutrition History of cerebrovascular accidents with hemiparesis Atrial fibrillation Chronic anticoagulation Presbyesophagus Hypertensive up esophageal sphincter. OPERATION: Esophagogastroduodenoscopy with percutaneous endoscopic gastrostomy tube placement 20-Iraqi, EndoVive Pull technique Avos Removal of 16 Iraqi HENRRY gastrostomy tube, balloon SURGEON: Zoë Pierre MD ANESTHESIA: MAC. INDICATIONS: The patient is a 84-year-old female who presents with malfunction of feeding tube identified within the subcutaneous tissue on CT scan. Patient was admitted for PEG tube malfunction including new placement. Benefits and risks of the procedure were described. Informed consent was obtained by legal guardian. DESCRIPTION: The patient was brought into the endoscopy suite and laid in supine position. After adequate IV sedation a bite block was placed. An Olympus gastroscope was passed along the posterior oropharynx down the distal esophagus. The stomach was entered. No feeding tube was identified in the stomach as confirmed and her CT scan although within the subcutaneous tissue of the skin. No focal areas of gastritis was encountered. No gastric polyps were identified. The antrum appeared unremarkable. A point along the anterior surface, greater curvature of the stomach was selected. Additionally, hypertensive upper esophageal sphincter tone was identified with presbyesophagus. Using sterile technique, the skin was cleansed with ChloraPrep and an incision was made after illuminating the proposed PEG tube site. Using a 16-Iraqi needle, a guidewire was fed into the stomach under endoscopic visualization. A snare was used to pull the guidewire out of the mouth. Over the guidewire, the PEG tube was pulled over the guidewire until it exited through the skin incision. The guidewire was removed. The round fitting clasp was placed over the gastrostomy tube and fixed at 4 cm at the skin. A "Y" adapter was placed at the cut end of the feeding tube. An endoscopic image of the gastrostomy tube within the stomach was captured. Along the skin, the balloon of the HENRRY 16 Iraqi feeding tube was attempted to decompress however could not. The tube was successfully removed with balloon s till intact confirming dysfunction of the balloon decompression of the feeding tube. The old feeding tube site was covered with 4 x 4 gauze including none permeable Tegaderm. The patient tolerated the procedure well. Findings: 1. Old HENRRY tube found within the subcutaneous tissue removed 2. New feeding tube placed along the upper portion of the stomach with endoscopic imaging obtained in fasting and 4 cm of skin 3. Presbyesophagus with hypertensive upper esophageal sphincter Disposition: Start tube feeds immediately within 24 hours with goal determined per arranger assembler.
[2024-07-28] MEDS: SODIUM CHLORIDE 0.9% 1,000 ML IV SCH (14:13)
[2024-07-28] MEDS: ONDANSETRON 4 MG/2 ML VIAL IVP PRN (16:15)
[2024-07-28] MEDS: metroNIDAZOLE-NS PMX 500 MG in SALINE 1 100ML.BAG IVPB SCH (17:00)
[2024-07-28 17:54] LABS: Glucose,Whole Blood 139 mg/dL (70-110)
[2024-07-28] MEDS: ACETAMINOPHEN TAB 500 MG TAB PEG/G-TUBE PRN (20:29)
[2024-07-28] MEDS: carvediloL 12.5 MG TAB PEG/G-TUBE SCH (20:29)
[2024-07-28] MEDS ORDERED: APIXABAN 2.5 MG TABLET PEG/G-TUBE SCH (21:00)
--- NOTE | 2024-07-28 23:34 | P.HPIM ---
History of Present Illness H&P Date: 07/28/24 Chief Complaint: PEG tube dislodged Patient is a 84-year-old female with a known history of atrial fibrillation on anticoagulation with Eliquis, hypertension, hyperlipidemia, diabetes type 2 insulin-dependent, osteoarthritis and history of CVA with right-sided residual weakness was sent to ER due to basilar artery PEG tube. Patient otherwise denied any complaints of chest pain. No shortness of breath. No abdominal pain. No nausea vomiting or diarrhea. Tmax 100.4. Patient Provide any history. CT of the abdominal pelvis showed that the PEG tube is terminating in the subcutaneous tissues. Streeter catheter in appropriate position. Large amount of stool correlate for fecal stasis. Cholelithiasis. KUB x-ray showed contrast seen layering throughout the abdominal outside of the lumen of the bowel. Findings compatible CTs same day with PEG tube malposition. Laboratory data showed WBC 6.3 hemoglobin 9.1 and platelets 573 MCV 72.3 Sodium 134 potassium 4.4 chloride 104 bicarb is 27 BUN 38 and creatinine 1.01 and blood sugar 138 lactic acid 1.1 calcium 8.1 liver enzymes are elevated. Review of Systems ROS unobtainable: due to mental status Past Medical History Past Medical History: Atrial Fibrillation, CVA/TIA, Diabetes Mellitus, Hyperlipidemia, Hypertension, Osteoarthritis (OA), Renal Disease Additional Past Medical History / Comment(s): uterine cancer, incontinent of urine History of Any Multi-Drug Resistant Organisms: None Reported Past Surgical History: No Surgical Hx Reported Additional Past Surgical History / Comment(s): cataract & carpal-tunnel bilat. Past Anesthesia/Blood Transfusion Reactions: No Reported Reaction Past Psychological History: No Psychological Hx Reported Smoking Status: Never smoker Past Alcohol Use History: None Reported Past Drug Use History: None Reported - Past Family History Mother Family Medical History: Coronary Artery Disease (CAD), Diabetes Mellitus, H ypertension, Mitral Valve Prolapse (MVP) Father Family Medical History: Hypertension Additional Family Medical History / Comment(s): father hip surgery Medications and Allergies Home Medications Medication Instructions Recorded Confirmed Type Empagliflozin [Jardiance] 10 mg PEG/G-TUBE DAILY 03/04/24 07/27/24 History Apixaban [Eliquis] 5 mg PEG/G-TUBE BID 06/19/24 07/27/24 History Atorvastatin [Lipitor] 40 mg PEG/G-TUBE DAILY 06/19/24 07/27/24 History Famotidine [Pepcid] 20 mg PEG/G-TUBE DAILY 06/19/24 07/27/24 History Losartan [Cozaar] 50 mg PEG/G-TUBE DAILY 06/19/24 07/27/24 History Magnesium Hydroxide [Milk of 7,200 mg PEG/G-TUBE DAILY PRN 06/19/24 07/27/24 History Magnesia Concentrate] Na Phos,M-B/Na Phos,Di-Ba [Fleet 133 ml RECTAL DAILY PRN 06/19/24 07/27/24 His tory Adult] Saliva Stimulant Comb. No.3 1 tsp MUCOUS MEM TID PRN 06/19/24 07/27/24 History [Biotene Moisturizing Mouth] bisacodyL [Dulcolax] 10 mg RECTAL DAILY PRN 06/19/24 07/27/24 History carvediloL [Coreg] 12.5 mg PEG/G-TUBE BID 06/19/24 07/27/24 History Acetaminophen Tab [Tylenol] 500 mg PEG/G-TUBE Q6HR PRN 07/27/24 07/27/24 History Cholestyramine (with Sugar) 4 gm PEG/G-TUBE DAILY 07/27/24 07/27/24 History [Cholestyramine Packet] Furosemide [Lasix] 20 mg PEG/G-TUBE DAILY 07/27/24 07/27/24 History Hydrophilic Cream [Triad (Kerodex 1 applic TOPICAL BID 07/27/24 07/27/24 History geq)] INSULIN LISPRO (humaLOG) [humaLOG] 5 units SQ AC-TID 07/27/24 07/27/24 History INSULIN LISPRO (humaLOG) [humaLOG] See Protocol SQ ACHS 07/27/24 07/27/24 History Nystatin 100,000Unit/gm Cream 1 applic TOPICAL BID 07/27/24 07/27/24 History [Mycostatin Cream] Potassium Chloride ER [K-Dur 10] 10 meq PEG/G-TUBE DAILY 07/27/24 07/27/24 History Allergies Allergy/AdvReac Type Severity Reaction Status Date / Time bacitracin Allergy Rash/Hives Verified 07/27/24 17:41 [From Neosporin ([id number])] ibuprofen Allergy Anaphylaxis Verified 07/27/24 17:41 & Rash all over neomycin Allergy Rash/Hives Verified 07/27/24 17:41 [From Neosporin ([id number])] polymyxin B Allergy Rash/Hives Verified 07/27/24 17:41 [From Neosporin ([id number])] Physical Exam Vitals: Vital Signs Temp Pulse Pulse Resp BP BP Pulse Ox 07/28/24 08:00 92 16 07/28/24 07:44 98.5 F 92 16 107/57 98 07/28/24 01:41 100.4 F H 106 H 18 139/84 99 07/28/24 00:02 99.6 F 103 H 20 126/76 98 07/27/24 23:01 94 18 116/71 99 07/27/24 21:37 57 L 16 145/82 94 L 07/27/24 19:27 72 18 132/76 97 07/27/24 16:29 97.8 F 79 18 98/56 100 Intake and Output 07/27/24 07/28/24 07/28/24 22:59 06:59 14:59 Output Total 500 Balance -500 Output: Urine 500 Other: Voiding Method Indwelling Catheter Indwelling Catheter Weight 61.689 kg 52 kg PHYSICAL EXAMINATION: Patient is lying in the bed, no acute distress, awake alert but could not provide any history.. HEENT: Normocephalic. Neck is supple. Pupils reactive. Nostrils clear. Oral cavity is moist. Neck reveals no JVD, carotid bruits, or thyromegaly. CHEST EXAMINATION: Trachea is central. Symmetrical expansion. Lung rhoades clear to auscultation and percussion. CARDIAC: Normal S1, S2 with no gallops. No murmurs ABDOMEN: Soft. Bowel sounds normal. No organomegaly. No abdominal bruits. Extremities: reveal no edema. No clubbing or cyanosis Neurologically awake, alert, oriented x 1, right-sided residual weakness. Skin: No rash or skin lesions. Psychiatric: Coperative. Could not be assessed completely Musculoskeletal: No joint swelling or deformity. Results CBC & Chem 7: 07/28/24 03:19 07/28/24 03:19 Labs: Abnormal Lab Results - Last 24 Hours (Table) 07/27/24 07/27/24 07/28/24 Range/Units 21:15 21:15 00:55 RBC (4.10-5.20) X 10*6/uL Hgb 9.1 L (11.4-16.0) gm/dL Hct 29.3 L (34.0-46.0) % MCV 72.3 L (80.0-100.0) fL MCH 22.5 L (25.0-35.0) pg MCHC (32.0-37.0) g/dL RDW 18.4 H (11.5-15.5) % Plt Count 573 H (150-450) k/uL MPV (9.5-12.2) FL Neutrophils # (1.80-7.70) X 10*3/uL Lymphocytes # 0.8 L (1.0-4.8) k/uL Sodium 134 L (137-145) mmol/L BUN 38 H (7-17) mg/dL Est GFR (CKD-EPI) (>=60) BUN/Creatinine Ratio (12.00-20.00) Ratio Glucose 138 H (74-99) mg/dL POC Glucose (mg/dL) 116 H (70-110) mg/dL Calcium 8.1 L (8.4-10.2) mg/dL Albumin 2.9 L (3.5-5.0) g/dL Globulin (1.6-3.3) g/dL Albumin/Globulin Ratio (1.60-3.17) Ratio 07/28/24 07/28/24 Range/Units 03:19 03:19 RBC 3.64 L (4.10-5.20) X 10*6/uL Hgb 7.7 L (11.4-16.0) gm/dL Hct 26.9 L (34.0-46.0) % MCV 73.9 L (80.0-100.0) fL MCH 21.2 L (25.0-35.0) pg MCHC 28.6 L (32.0-37.0) g/dL RDW 19.6 H (11.5-15.5) % Plt Count 453 H (150-450) k/uL MPV 8.7 L (9.5-12.2) FL Neutrophils # 7.81 H (1.80-7.70) X 10*3/uL Lymphocytes # (1.0-4.8) k/uL Sodium (137-145) mmol/L BUN 33.9 H (7-17) mg/dL Est GFR (CKD-EPI) 45 L (>=60) BUN/Creatinine Ratio 28.25 H (12.00-20.00) Ratio Glucose (74-99) mg/dL POC Glucose (mg/dL) (70-110) mg/dL Calcium 8.2 L (8.4-10.2) mg/dL Albumin 2.6 L (3.5-5.0) g/dL Globulin 3.8 H (1.6-3.3) g/dL Albumin/Globulin Ratio 0.68 L (1.60-3.17) Ratio Thrombosis Risk Factor Assmnt - DVT/VTE Prophylaxis DVT/VTE Prophylaxis: Pharmacologic Prophylaxis ordered - Choose All That Apply Any of the Below Risk Factors Present?: No Each Factor Represents 1 point: Swollen legs (current) Other Risk Factors: Yes Each Risk Factor Represents 3 Points: Age 75 years or older Other congenital or acquired thrombophilia - If yes, enter type in comment: No Thrombosis Risk Factor Assessment Total Risk Factor Score: 4 Thrombosis Risk Factor Assessment Level: Moderate Risk Assessment and Plan Assessment: PEG tube dislodgment Hypertension Hyperglycemia is uncontrolled diabetes type 2 insulin-dependent Microcytic anemia with hemoglobin 9.1 admission. Rule out iron deficiency Thrombocytosis Hypovolemic hyponatremia History of CVA with residual right-sided weakness GI and DVT prophylaxis with PPI and patient will be started back on Eliquis a fter surgery. Plan: Patient will be continued on IV hydration. Nothing by mouth. General surgery was consulted due to PEG tube dislodgment and replacement. Patient was started back on home medications via PEG tube and nutrition consult. Continue supportive care and follow-up closely. Time with Patient: Greater than 30
[2024-07-29] MEDS: INSULIN ASPART (NovoLOG) 100 UNIT/ML VIAL SQ SCH (00:42)
[2024-07-29 01:24] LABS: Appearance,Urine Turbid (Clear); Bacteria,Urine Moderate /hpf; Bilirubin,Urine Negative (Negative); Blood,Urine Trace (Negative); Budding Yeast,Urine Many /hpf; Calcium Oxalate Crystals,Urine Moderate /hpf; Color,Urine Light Yellow; Glucose,Urine (UA) 3+ (Negative); Hyphae Yeast, Urine Few /hpf; Ketones,Urine Negative (Negative); Leukocyte Esterase,Urine Large (Negative); Mucus,Urine Rare /hpf; Nitrite,Urine Positive (Negative); Protein,Urine 1+ (Negative); RBC,Urine >182 /hpf (0-5); Specific Gravity,Urine 1.019 (1.001-1.035); Urobilinogen,Urine <2.0 mg/dL (<2.0); WBC,Urine 114 /hpf (0-5)
[2024-07-29] MEDS: SODIUM CHLORIDE 0.9% 1,000 ML IV SCH (05:56)
[2024-07-29 06:01] LABS: Glucose,Whole Blood 199 mg/dL (70-110)
[2024-07-29] MEDS: FAMOTIDINE 20 MG TAB PEG/G-TUBE SCH (08:35)
[2024-07-29] MEDS: ATORVASTATIN 40 MG TAB PEG/G-TUBE SCH (08:35)
[2024-07-29 08:57] LABS: Basophils # (A) 0.02 X 10*3/uL (0.00-0.10); Basophils % (A) 0.3 %; Eosinophils # (A) 0.02 X 10*3/uL (0.04-0.35); Eosinophils % (A) 0.3 %; HCT 25.9 % (37.2-46.3); HGB 7.5 g/dL (12.0-15.0); Lymphocytes # (A) 0.68 X 10*3/uL (0.90-5.00); Lymphocytes % (A) 10.9 %; MCH 21.5 pg (27.0-32.0); MCV 74.2 FL (80.0-97.0); Mean Platelet Volume 8.5 FL (9.5-12.2); Monocytes # (A) 0.56 X 10*3/uL (0.20-1.00); NRBC Per 100 WBC 0 X 10*3/uL (0.00-0.01); Neutrophils # (A) 4.95 X 10*3/uL (1.80-7.70); Neutrophils % (A) 79.2 %; Platelet Count 418 X 10*3/uL (140-440); RBC 3.49 X 10*6/uL (4.10-5.20); RDW 19.9 % (11.5-14.5); WBC 6.25 X 10*3/uL (4.50-10.00)
[2024-07-29 09:04] LABS: % Iron Saturation 4.04 (12.00-45.00); Iron 9 UG/DL (50-170); Total Iron Binding Capacity 223 UG/DL (228-460)
--- NOTE | 2024-07-29 09:28 | P.PN ---
Subjective Progress Note Date: 07/29/24 CHIEF COMPLAINT: PEG tube dislodgment HISTORY OF PRESENT ILLNESS: The patient is a 84-year-old female with pre- existing history of stroke and right-sided hemiparesis who is PEG tube dependent for nutrition. Her previous gastrostomy tube was dislodged in the subcutaneous tissue and removed. A new feeding tube has been placed. Patient is experiencing mild nausea today. She is on feedings. Per discussion with nurse, patient had a large bowel movement last night. REVIEW OF ORGAN SYSTEMS: CARDIOVASCULAR: On blood thinners. Has hypertensive heart disease. Has congestive heart failure. Has atrial fibrillation. GASTROINTESTINAL: Has gastrostomy tube. Has gastroesophageal reflux disease. EUROLOGICAL: History of cerebrovascular accident with right-sided hemiparesis. PHYSICAL EXAM: VITALS: Reviewed CONSTITUTIONAL: Well developed and in no acute distress. EYES: Conjuctivae without sclera icterus. Extraocular movements grossly intact. HEAD, EARS, NOSE, THROAT: Moist buccal mucosa. Head is atraumatic, normocephalic. Hears conversational speech. No nasal drainage. RESPIRATORY: Non-labored respirations and equal bilateral excursions. No gross wheezes. CARDIOVASCULAR: Palpable 2+ radial pulses. ABDOMEN: Gastrostomy tube site clean dry intact. No blood. Old site dressing clean dry intact. Mild abdominal distention. No peritonitis. MUSCULOSKELETAL: No clubbing cyanosis or edema. Right-sided hemiparesis. SKIN: Warm and well perfused with good skin turgor. NEUROLOGIC: Cranial nerves II through XII grossly intact. No focal or lateralizing signs. PSYCH: Appropriate affect. Alert and oriented to person, place and time. Displays appropriate insight. CLINCAL LABS: Reviewed. Labs pending. ASSESSMENT: 1. Malfunction of feeding tube 2. Cerebrovascular accident with sequelae, right hemiparesis 3. Severe protein malnutrition, gastrostomy tube dependent 4. Hypertensive heart disease with congestive heart failure 5. Atrial fibrillation, chronic 6. Moderate fecal retention/constipation 7. Chronic anticoagulant use 8. Acute blood loss anemia hemoglobin down 9.1-7.7, 24 hours 9. Insulin-dependent diabetes with complications 10. Diabetic gastroparesis. 11. Presbyesophagus. 12. Severe constipation PLAN: 1. May resume tube feeds. 2. Start Reglan 10 mg 10 every 6 hours for underlying diabetic gastroparesis 3. Simethicone gas drops scheduled for mild abdominal distention 4. Start lactulose for severe constipation Objective - Vital Signs Vital signs: Vital Signs Temp 98.2 F 07/29/24 07:39 Pulse 101 H 07/29/24 07:39 Resp 17 07/29/24 07:39 BP 115/63 07/29/24 07:39 Pulse Ox 98 07/29/24 07:39 FiO2 Intake & Output 07/28/24 07/29/24 07/29/24 19:59 06:59 18:59 Intake Total Output Total Balance Weight Intake: IV Output: Urine Other: Voiding Method # Bowel Movements - Labs CBC & Chem 7: 07/29/24 05:08 07/28/24 03:19 Labs: Abnormal Lab Results - Last 24 Hours (Table) 07/28/24 07/29/24 07/29/24 Range/Units 17:53 00:47 05:08 RBC (4.10-5.20) X 10*6/uL Hgb (12.0-15.0) g/dL Hct (37.2-46.3) % MCV (80.0-97.0) FL MCH (27.0-32.0) pg MCHC (32.0-37.0) g/dL RDW (11.5-14.5) % MPV (9.5-12.2) FL Lymphocytes # (0.90-5.00) X 10*3/uL Eosinophils # (0.04-0.35) X 10*3/uL POC Glucose (mg/dL) 139 H (70-110) mg/dL Hemoglobin A1c 7.0 H (<=6.0) % Iron (50-170) UG/DL TIBC (228-460) UG/DL % Saturation (12.00-45.00) Transferrin (204.0-354.0) mg/dL Urine Appearance Turbid H (Clear) Urine Protein 1+ H (Negative) Urine Glucose (UA) 3+ H (Negative) Urine Blood Trace H (Negative) Urine Nitrite Positive H (Negative) Ur Leukocyte Esterase Large H (Negative) Urine RBC >182 H (0-5) /hpf Urine WBC 114 H (0-5) /hpf Calcium Oxalate Crystal Moderate H (None) /hpf Urine Bacteria Moderate H (None) /hpf Urine Mucus Rare H (None) /hpf Urine Yeast (Budding) Many H (None) /hpf 07/29/24 07/29/24 07/29/24 Range/Units 05:08 05:08 05:57 RBC 3.49 L (4.10-5.20) X 10*6/uL Hgb 7.5 L (12.0-15.0) g/dL Hct 25.9 L (37.2-46.3) % MCV 74.2 L (80.0-97.0) FL MCH 21.5 L (27.0-32.0) pg MCHC 29.0 L (32.0-37.0) g/dL RDW 19.9 H (11.5-14.5) % MPV 8.5 L (9.5-12.2) FL Lymphocytes # 0.68 L (0.90-5.00) X 10*3/uL Eosinophils # 0.02 L (0.04-0.35) X 10*3/uL POC Glucose (mg/dL) 199 H (70-110) mg/dL Hemoglobin A1c (<=6.0) % Iron 9 L (50-170) UG/DL TIBC 223 L (228-460) UG/DL % Saturation 4.04 L (12.00-45.00) Transferrin 159.0 L (204.0-354.0) mg/dL Urine Appearance (Clear) Urine Protein (Negative) Urine Glucose (UA) (Negative) Urine Blood (Negative) Urine Nitrite (Negative) Ur Leukocyte Esterase (Negative) Urine RBC (0-5) /hpf Urine WBC (0-5) /hpf Calcium Oxalate Crystal (None) /hpf Urine Bacteria (None) /hpf Urine Mucus (None) /hpf Urine Yeast (Budding) (None) /hpf
[2024-07-29 09:44] LABS: Calcium 8.3 mg/dL (8.7-10.3); Chloride 105 mmol/L (96-109); Glucose 195 mg/dL (70-110); Potassium 4.2 mmol/L (3.5-5.5); Sodium 139 mmol/L (135-145)
[2024-07-29] MEDS: METOCLOPRAMIDE 5 MG/ML 2 ML VIAL IVP SCH (09:52)
[2024-07-29] MEDS: SIMETHICONE 40 MG/0.6 ML DROPS 2,000 MG/30 ML BOTTLE PEG/G-TUBE SCH (10:38)
[2024-07-29] MEDS: LACTULOSE 20 GM/30 ML CUP PEG/G-TUBE SCH (10:38)
[2024-07-29 12:24] LABS: Glucose,Whole Blood 272 mg/dL (70-110)
[2024-07-29] MEDS: MORPHINE SULFATE 4 MG/ML SYRINGE IV PRN (14:37)
[2024-07-29] MEDS ORDERED: ZINC OXIDE PASTE (Z-GUARD) 1 APPLIC TOPICAL PRN (17:12)
[2024-07-29 17:29] LABS: Glucose,Whole Blood 238 mg/dL (70-110)
[2024-07-29] MEDS: NYSTATIN 100,000 UNIT/GM POWD 15 GM TOPICAL SCH (19:55)
--- NOTE | 2024-07-29 23:21 | P.PN ---
Subjective Progress Note Date: 07/29/24 Patient is a 84-year-old female with a known history of atrial fibrillation on anticoagulation with Eliquis, hypertension, hyperlipidemia, diabetes type 2 insulin-dependent, osteoarthritis and history of CVA with right-sided residual weakness was sent to ER due to basilar artery PEG tube. Patient otherwise denied any complaints of chest pain. No shortness of breath. No abdominal pain. No nausea vomiting or diarrhea. Tmax 100.4. Patient Provide any history. CT of the abdominal pelvis showed that the PEG tube is terminating in the subcutaneous tissues. Streeter catheter in appropriate position. Large amount of stool correlate for fecal stasis. Cholelithiasis. KUB x-ray showed contrast seen layering throughout the abdominal outside of the lumen of the bowel. Findings compatible CTs same day with PEG tube malposition. Laboratory data showed WBC 6.3 hemoglobin 9.1 and platelets 573 MCV 72.3 Sodium 134 potassium 4.4 chloride 104 bicarb is 27 BUN 38 and creatinine 1.01 and blood sugar 138 lactic acid 1.1 calcium 8.1 liver enzymes are elevated. 07/28/2024 Review status post PEG tube replacement. Patient is unable to provide any history. Otherwise she developed fever last night with Tmax 102.1. Currently afebrile. Tube feeding was started. No bowel movement yet. No cough or sputum production. Laboratory data showed WBC 6.25 hemoglobin 7.5 and platelets 418. Iron profile showed deficiency. Otherwise BUN 45 and creatinine 1.5 and blood sugar 195 General surgery is on board. Patient is on antibiotics in the form of cefazolin. Urine culture was ordered. Patient is on IV hydration with normal saline at 75 cc/h. Current medications reviewed. Objective - Vital Signs Vital signs: Vital Signs Temp 98.2 F 07/29/24 07:39 Pulse 101 H 07/29/24 07:39 Resp 17 07/29/24 07:39 BP 115/63 07/29/24 07:39 Pulse Ox 98 07/29/24 07:39 FiO2 Intake & Output 07/28/24 07/29/24 07/29/24 19:59 06:59 18:59 Intake Total Output Total Balance Weight Intake: IV Output: Urine Other: Voiding Method # Bowel Movements - Exam PHYSICAL EXAMINATION: Patient is lying in the bed, no acute distress, awake alert but could not provide any history.. HEENT: Normocephalic. Neck is supple. Pupils reactive. Nostrils clear. Oral cavity is moist. Neck reveals no JVD, carotid bruits, or thyromegaly. CHEST EXAMINATION: Trachea is central. Symmetrical expansion. Lung rhoades clear to auscultation and percussion. CARDIAC: Normal S1, S2 with no gallops. No murmurs ABDOMEN: Soft. Bowel sounds normal. No organomegaly. No abdominal bruits. Extremities: reveal no edema. No clubbing or cyanosis Neurologically awake, alert, oriented x 1, right-sided residual weakness. Skin: No rash or skin lesions. Psychiatric: Coperative. Could not be assessed completely Musculoskeletal: No joint swelling or deformity. - Labs CBC & Chem 7: 07/30/24 04:30 07/30/24 04:30 Labs: Abnormal Lab Results - Last 24 Hours (Table) 07/28/24 07/29/24 07/29/24 Range/Units 17:53 00:47 05:08 RBC (4.10-5.20) X 10*6/uL Hgb (12.0-15.0) g/dL Hct (37.2-46.3) % MCV (80.0-97.0) FL MCH (27.0-32.0) pg MCHC (32.0-37.0) g/dL RDW (11.5-14.5) % MPV (9.5-12.2) FL Lymphocytes # (0.90-5.00) X 10*3/uL Eosinophils # (0.04-0.35) X 10*3/uL Carbon Dioxide (21.6-31.8) mmol/L Anion Gap (4.00-12.00) mmol/L BUN (9.0-27.0) mg/dL Est GFR (CKD-EPI) (>=60) BUN/Creatinine Ratio (12.00-20.00) Ratio Glucose (70-110) mg/dL POC Glucose (mg/dL) 139 H (70-110) mg/dL Hemoglobin A1c 7.0 H (<=6.0) % Calcium (8.7-10.3) mg/dL Iron (50-170) UG/DL TIBC (228-460) UG/DL % Saturation (12.00-45.00) Transferrin (204.0-354.0) mg/dL Urine Appearance Turbid H (Clear) Urine Protein 1+ H (Negative) Urine Glucose (UA) 3+ H (Negative) Urine Blood Trace H (Negative) Urine Nitrite Positive H (Negative) Ur Leukocyte Esterase Large H (Negative) Urine RBC >182 H (0-5) /hpf Urine WBC 114 H (0-5) /hpf Calcium Oxalate Crystal Moderate H (None) /hpf Urine Bacteria Moderate H (None) /hpf Urine Mucus Rare H (None) /hpf Urine Yeast (Budding) Many H (None) /hpf 07/29/24 07/29/24 07/29/24 Range/Units 05:08 05:08 05:57 RBC 3.49 L (4.10-5.20) X 10*6/uL Hgb 7.5 L (12.0-15.0) g/dL Hct 25.9 L (37.2-46.3) % MCV 74.2 L (80.0-97.0) FL MCH 21.5 L (27.0-32.0) pg MCHC 29.0 L (32.0-37.0) g/dL RDW 19.9 H (11.5-14.5) % MPV 8.5 L (9.5-12.2) FL Lymphocytes # 0.68 L (0.90-5.00) X 10*3/uL Eosinophils # 0.02 L (0.04-0.35) X 10*3/uL Carbon Dioxide 21.0 L (21.6-31.8) mmol/L Anion Gap 13.00 H (4.00-12.00) mmol/L BUN 45.0 H (9.0-27.0) mg/dL Est GFR (CKD-EPI) 35 L (>=60) BUN/Creatinine Ratio 30.00 H (12.00-20.00) Ratio Glucose 195 H (70-110) mg/dL POC Glucose (mg/dL) 199 H (70-110) mg/dL Hemoglobin A1c (<=6.0) % Calcium 8.3 L (8.7-10.3) mg/dL Iron 9 L (50-170) UG/DL TIBC 223 L (228-460) UG/DL % Saturation 4.04 L (12.00-45.00) Transferrin 159.0 L (204.0-354.0) mg/dL Urine Appearance (Clear) Urine Protein (Negative) Urine Glucose (UA) (Negative) Urine Blood (Negative) Urine Nitrite (Negative) Ur Leukocyte Esterase (Negative) Urine RBC (0-5) /hpf Urine WBC (0-5) /hpf Calcium Oxalate Crystal (None) /hpf Urine Bacteria (None) /hpf Urine Mucus (None) /hpf Urine Yeast (Budding) (None) /hpf Assessment and Plan Assessment: PEG tube dislodgment. Status post replacement by general surgery. Fever Possible urinary tract infection Hypertension Hyperglycemia is uncontrolled diabetes type 2 insulin-dependent Microcytic anemia with hemoglobin 9.1 admission. Rule out iron deficiency Thrombocytosis Hypovolemic hyponatremia History of CVA with residual right-sided weakness GI and DVT prophylaxis with PPI and patient will be started back on Eliquis after surgery. Plan: Patient will be continued on IV hydration. Nothing by mouth. Status post PEG tube replacement by general surgery. Continue with antibiotics cefazolin. Follow-up urine culture report. Chest x- ray was ordered Continue with insulin sliding scale for blood sugar control. Patient was started on iron supplementation.. Continue to monitor H&H. Patient was started back on home medications via PEG tube and nutrition consult. Continue supportive care and follow-up closely. Time with Patient: Greater than 30
[2024-07-30 00:35] LABS: Glucose,Whole Blood 257 mg/dL (70-110)
[2024-07-30 06:28] LABS: Glucose,Whole Blood 218 mg/dL (70-110)
[2024-07-30 08:23] LABS: Basophils # (A) 0.02 X 10*3/uL (0.00-0.10); Basophils % (A) 0.3 %; Eosinophils # (A) 0.01 X 10*3/uL (0.04-0.35); Eosinophils % (A) 0.2 %; HCT 24.8 % (37.2-46.3); HGB 7.2 g/dL (12.0-15.0); Lymphocytes # (A) 0.63 X 10*3/uL (0.90-5.00); Lymphocytes % (A) 9.5 %; MCH 22.3 pg (27.0-32.0); MCV 76.8 FL (80.0-97.0); Mean Platelet Volume 9.3 FL (9.5-12.2); Monocytes # (A) 0.49 X 10*3/uL (0.20-1.00); Monocytes % (A) 7.4 %; NRBC Per 100 WBC 0 X 10*3/uL (0.00-0.01); Neutrophils # (A) 5.45 X 10*3/uL (1.80-7.70); Neutrophils % (A) 82.3 %; Platelet Count 417 X 10*3/uL (140-440); RBC 3.23 X 10*6/uL (4.10-5.20); RDW 19.8 % (11.5-14.5); WBC 6.62 X 10*3/uL (4.50-10.00)
[2024-07-30] MEDS: FERROUS SULFATE ORAL ELIXIR 300 MG/5 ML CUP PEG/G-TUBE SCH (08:36)
[2024-07-30 08:55] LABS: BUN/Creat Ratio 32.06 Ratio (12.00-20.00); Blood Urea Nitrogen 51.3 mg/dL (9.0-27.0); Calcium 7.9 mg/dL (8.7-10.3); Carbon Dioxide 19.7 mmol/L (21.6-31.8); Chloride 112 mmol/L (96-109); Glucose 204 mg/dL (70-110); Potassium 3.1 mmol/L (3.5-5.5); Sodium 144 mmol/L (135-145)
[2024-07-30 09:21] LABS: Glucose,Whole Blood 223 mg/dL (70-110)
--- NOTE | 2024-07-30 10:18 | XR ---
EXAMINATION TYPE: XR chest 1V portable DATE OF EXAM: 07/30/2024 9:50 AM COMPARISON: 06/20/2024 CLINICAL INDICATION: Female, 84 years old with history of sob, tachy, TECHNIQUE: XR chest 1V portable view(s) obtained. FINDINGS: The heart size is normal. The pulmonary vasculature is normal. The lungs are clear. Old proximal left humeral fracture. Be present. PEG tube may be present. IMPRESSION: 1. No acute pulmonary process. [facility], , 07/30/2024 10:16 AM
--- NOTE | 2024-07-30 11:20 | XR ---
EXAMINATION TYPE: XR abdomen 2V DATE OF EXAM: 07/30/2024 9:50 AM COMPARISON: 07/27/2024 CLINICAL INDICATION: Female, 84 years old with history of follow up on constipation, TECHNIQUE: XR abdomen 2V view(s) obtained. FINDINGS: There is a normal bowel gas pattern. Fecal debris is present. Suspicious changes suggest obstruction is not identified. Psoas margins are normal. No organomegaly is present. PEG tube appears to be present midline. Vascular calcifications within the splenic artery. IMPRESSION: 1. Nonspecific abdomen. [facility], , 07/30/2024 11:18 AM
[2024-07-30 11:31] VITALS: BMI 25.0
[2024-07-30 12:17] LABS: Glucose,Whole Blood 226 mg/dL (70-110)
[2024-07-30] MEDS ORDERED: Potassium Replacement Protocol 1 EACH MISC MISCELLANE PRN (12:18)
--- NOTE | 2024-07-30 12:52 | P.DS ---
Providers Date of admission: 07/27/24 20:59 Expected date of discharge: 07/30/24 Attending physician: Francesco Gaston Consults: 07/27/24 20:57 Consult Physician Routine Consulting Provider: Zoë Pierre Consult Reason/Comments: g tube Do you want consulting provider notified?: Yes 07/28/24 12:32 Consult Physician Routine Consulting Provider: [facility] Consult Reason/Comments: [facility] Do you want consulting provider notified?: Yes Primary care physician: Francesco Gaston [facility] Course: Final diagnosis PEG tube dislodgment. Status post replacement by general surgery. Fever, improved Possible urinary tract infection, unlikely as patient denies any pain or burning, likely asymptomatic bacteriuria Hypertension Hyperglycemia is uncontrolled diabetes type 2 insulin-dependent Microcytic anemia with hemoglobin 9.1 admission. Rule out iron deficiency Thrombocytosis Hypovolemic hyponatremia History of CVA with residual right-sided weakness GI and DVT prophylaxis with PPI and patient was resumed back on Eliquis after surgery. Full code Discharge disposition Patient is being discharged in a stable condition with guarded prognosis to [facility]. Patient will follow-up with Dr. Gaston in the outpatient setting upon discharge. Patient is to continue with tube feedings and outpatient follow-up with general surgery as scheduled. Total time taken is greater than 35 minutes. Hospital course This is a 84-year-old female who was recently admitted with PEG tube dislodgment status post PEG tube replacement with general surgery. Patient has been resumed on tube feedings with Glucerna reaching goal tolerating and abdomen x-ray today shows no acute process and PEG tube in place. Chest x-ray today shows no acute process and recommend to continue with aspiration precautions with head of the bed elevated 30 to 45 degrees at all times along with monitoring residuals closely. Patient to continue on bowel regimen scheduled and as needed. Patient will be returning to [facility] on discharge. Please refer to other consultation notes for further HPI. Currently no reports of chest pain, shortness of breath, or palpitations. Patient is afebrile. No reports of nausea or vomiting and patient is tolerating diet. Patient will be discharged to [facility] today. Guarded prognosis and high risk for readmissions given significant comorbidities Physical exam: Gen: This is a 84-year-old female who is awake, alert and oriented x 2, baseline, elderly appearing, well-developed HEENT: Head is atraumatic, normocephalic. Pupils equal, round. Sclerae is anicteric. NECK: Supple. No JVD. No lymphadenopathy. No thyromegaly. LUNGS: Diminished breath sounds bilaterally otherwise clear to auscultation. No wheezes or rhonchi. No intercostal retractions. HEART: S1, S2 are muffled ABDOMEN: Soft. Obese, less distended bowel sounds are present. No masses. No tenderness. Upper PEG tube noted patent and tolerating EXTREMITIES: No pedal edema. No calf tenderness. NEUROLOGICAL: Patient is awake, alert and oriented x2. Cranial nerves 2 through 12 are grossly intact. Diffusely weak Please refer to medication reconciliation sheet for a list of medications. The impression and plan of care has been dictated by Ivy Araya, Nurse Practitioner as directed. Dr. Kedar MD I have performed a history and examination and MDM of this patient, discussed the same with the dictator, and agree with the dictator's assessment and plan as written ,documented as a scribe. Based on total visit time, I have performed more than 50% of the visit. Patient Condition at Discharge: Fair Plan - Discharge Summary Discharge Rx Participant: No New Discharge Prescriptions: New Lactulose [Cephulac] 30 gm PEG/G-TUBE BID ml Ferrous Sulfate Oral Elixir [Feosol Liquid] 300 mg PEG/G-TUBE BID-W/MEALS ml Simethicone 40 mg/0.6 ml Drops [Mylicon Drops] 40 mg PEG/G-TUBE QID ml Metoclopramide Oral Soln [Reglan Oral Soln] 5 mg PEG/G-TUBE DAILY #30 ml Continue carvediloL [Coreg] 12.5 mg PEG/G-TUBE BID Na Phos,M-B/Na Phos,Di-Ba [Fleet Adult] 133 ml RECTAL DAILY PRN PRN Reason: Constipation Saliva Stimulant Comb. No.3 [Biotene Moisturizing Mouth] 1 tsp MUCOUS MEM TID PRN PRN Reason: dry mouth/throat Potassium Chloride ER [K-Dur 10] 10 meq PEG/G-TUBE DAILY INSULIN LISPRO (humaLOG) [humaLOG] See Protocol SQ ACHS Empagliflozin [Jardiance] 10 mg PEG/G-TUBE DAILY Apixaban [Eliquis] 5 mg PEG/G-TUBE BID Atorvastatin [Lipitor] 40 mg PEG/G-TUBE DAILY bisacodyL [Dulcolax] 10 mg RECTAL DAILY PRN PRN Reason: Constipation Famotidine [Pepcid] 20 mg PEG/G-TUBE DAILY Magnesium Hydroxide [Milk of Magnesia Concentrate] 7,200 mg PEG/G-TUBE DAILY PRN PRN Reason: Constipation Nystatin 100,000Unit/gm Cream [Mycostatin Cream] 1 applic TOPICAL BID INSULIN LISPRO (humaLOG) [humaLOG] 5 units SQ AC-TID Furosemide [Lasix] 20 mg PEG/G-TUBE DAILY Cholestyramine (with Sugar) [Cholestyramine Packet] 4 gm PEG/G-TUBE DAILY Acetaminophen Tab [Tylenol] 500 mg PEG/G-TUBE Q6HR PRN PRN Reason: Fever And/ Or Pain Hydrophilic Cream [Triad (Kerodex geq)] 1 applic TOPICAL BID Discontinued Losartan [Cozaar] 50 mg PEG/G-TUBE DAILY Discharge Medication List Empagliflozin [Jardiance] 10 mg PEG/G-TUBE DAILY 03/04/24 [History] Apixaban [Eliquis] 5 mg PEG/G-TUBE BID 06/19/24 [History] Atorvastatin [Lipitor] 40 mg PEG/G-TUBE DAILY 06/19/24 [History] Famotidine [Pepcid] 20 mg PEG/G-TUBE DAILY 06/19/24 [History] Magnesium Hydroxide [Milk of Magnesia Concentrate] 7,200 mg PEG/G-TUBE DAILY PRN 06/19/24 [History] Na Phos,M-B/Na Phos,Di-Ba [Fleet Adult] 133 ml RECTAL DAILY PRN 06/19/24 [History] Saliva Stimulant Comb. No.3 [Biotene Moisturizing Mouth] 1 tsp MUCOUS MEM TID PRN 06/19/24 [History] bisacodyL [Dulcolax] 10 mg RECTAL DAILY PRN 06/19/24 [History] carvediloL [Coreg] 12.5 mg PEG/G-TUBE BID 06/19/24 [History] Acetaminophen Tab [Tylenol] 500 mg PEG/G-TUBE Q6HR PRN 07/27/24 [History] Cholestyramine (with Sugar) [Cholestyramine Packet] 4 gm PEG/G-TUBE DAILY 07/27/24 [History] Furosemide [Lasix] 20 mg PEG/G-TUBE DAILY 07/27/24 [History] Hydrophilic Cream [Triad (Kerodex geq)] 1 applic TOPICAL BID 07/27/24 [History] INSULIN LISPRO (humaLOG) [humaLOG] 5 units SQ AC-TID 07/27/24 [History] INSULIN LISPRO (humaLOG) [humaLOG] See Protocol SQ ACHS 07/27/24 [History] Nystatin 100,000Unit/gm Cream [Mycostatin Cream] 1 applic TOPICAL BID 07/27/24 [History] Potassium Chloride ER [K-Dur 10] 10 meq PEG/G-TUBE DAILY 07/27/24 [History] Ferrous Sulfate Oral Elixir [Feosol Liquid] 300 mg PEG/G-TUBE BID-W/MEALS ml 07/30/24 [Rx] Lactulose [Cephulac] 30 gm PEG/G-TUBE BID ml 07/30/24 [Rx] Metoclopramide Oral Soln [Reglan Oral Soln] 5 mg PEG/G-TUBE DAILY #30 ml 07/30/24 [Rx] Simethicone 40 mg/0.6 ml Drops [Mylicon Drops] 40 mg PEG/G-TUBE QID ml 07/30/24 [Rx] Follow up Appointment(s)/Referral(s): Francesco Gaston MD [Primary Care Provider] - 1-2 days Zoë Pierre MD [STAFF PHYSICIAN] - 1 Week Activity/Diet/Wound Care/Special Instructions: Patient is going to [facility] as tolerated Continue tube feedings Follow-up general surgery outpatient Continue bowel regimen Repeat labs of CBC, CMP, magnesium in 2 to 3 days Continue monitoring Accu-Cheks before meals and at bedtime and continue with sliding scale along with other insulins NovoLog sliding scale 0-150 equals 0 units 151-200 equals 2 units 201-250 equals 4 units 251-300 equals 6 units 301-350 equals 8 units 351-400 equals 10 units Please notify provider if blood sugar is 400 or above continue tube feedings with Glucerna 1.5 continuous With a goal rate of 34, total volume was 816, free water flushes every 4 hours of 30 cc, monitor for residual and continue with aspiration precautions with head of the bed elevated 30 to 45 degrees at all times Discharge Disposition: TRANSFER TO SNF/ECF
[2024-07-30] MEDS: POTASSIUM CHLORIDE 10 MEQ in WATER FOR INJECTION 1 100ML.BAG IVPB SCH (13:14)
--- NOTE | 2024-07-30 13:29 | P.PN ---
Subjective Progress Note Date: 07/30/24 CHIEF COMPLAINT: PEG tube dislodged HISTORY OF PRESENT ILLNESS: The patient is a 84-year-old female with pre- existing history of stroke and right-sided hemiparesis who is PEG tube dependent for nutrition. Her previous gastrostomy tube was dislodged in the subcutaneous tissue and removed. Patient is status post replacement of peg tube. She is tolerating tube feeds. She is having bowel movements. Abdominal x-ray shows nonspecific bowel gas pattern. Patient is to be discharged today PHYSICAL EXAM: VITAL SIGNS: Reviewed GENERAL: Well-developed in no acute distress. HEENT: No sclera icterus. Extraocular movements grossly intact. Moist buccal mucosa. Head is atraumatic, normocephalic. Hears conversational speech. No nasal drainage. NECK: Supple without lymphadenopathy. CHEST: Non-labored respirations and equal bilateral excursions. CARDIOVASCULAR: Palpable 2+ radial pulses. ABDOMEN: Soft. Nondistended. Nontender. PEG tube site clean dry and intact MUSCULOSKELETAL: No clubbing or cyanosis. NEUROLOGIC: No focal or lateralizing signs. Cranial nerves II through XII grossly intact. SKIN: Well perfused. Good skin turgor. ASSESSMENT: 1. Malfunction of feeding tube 2. Cerebrovascular accident with sequelae, right hemiparesis 3. Severe protein malnutrition, gastrostomy tube dependent 4. Hypertensive heart disease with congestive heart failure 5. Atrial fibrillation, chronic 6. Moderate fecal retention/constipation 7. Chronic anticoagulant use 8. Acute blood loss anemia hemoglobin down 9.1-7.7, 24 hours 9. Insulin-dependent diabetes with complications 10. Diabetic gastroparesis. 11. Presbyesophagus. 12. Severe constipation PLAN: -Continue good bowel regimen at discharge -Continue tube feeds -Patient can be discharged from surgical standpoint [employer] note has been reviewed by physician. Signing provider agrees with the documented findings, assessment, and plan of care. CHIEF COMPLAINT: PEG tube malfunction and anemia HISTORY OF PRESENT ILLNESS: The patient is a 84-year-old female who presents with anemia including malfunctioning PEG feeding tube. Patient had been on Eliquis which was discontinued. Patient also had moderate to severe constipation. Patient is now tolerating tube feeds after nausea and ileus yesterday. Hemoglobin continues to decline. Patient is noted to have bowel movements. ROS: No bowel movements. No fevers or chills. No new chest pain. No productive sputum PHYSICAL EXAM: VITAL SIGNS: Reviewed CONSTITUTIONAL: Well developed and in no acute distress. EYES: Conjuctivae without sclera icterus. Extraocular movements grossly intact. HEAD, EARS, NOSE, THROAT: Moist buccal mucosa. Head is atraumatic, normocephalic. Hears conversational speech. No nasal drainage. RESPIRATORY: Non-labored respirations and equal bilateral excursions. CARDIOVASCULAR: Palpable 2+ radial pulses. ABDOMEN: Feeding tube intact without bleeding. MUSCULOSKELETAL: No gross deformity of the lower extremities noted. No clubbing. No cyanosis. SKIN: Good skin turgor. Well perfused. NEUROLOGIC: Cranial nerves II through XII grossly intact. Right-sided hemiparesis. PSYCH: Appropriate affect. Alert and oriented to person CLINICAL LABS: Reviewed. Hemoglobin down 7.5-7.2, anemia. STUDIES: Abdominal x-ray independent review still demonstrates moderate retained stool. No bowel obstruction. Feeding tube within the stomach noted. This is my independent interpretation. ASSESSMENT: 1. Malfunction of feeding tube 2. Cerebrovascular accident with sequelae, right hemiparesis 3. Severe protein malnutrition, gastrostomy tube dependent 4. Hypertensive heart disease with congestive heart failure 5. Atrial fibrillation, chronic 6. Moderate fecal retention/constipation 7. Chronic anticoagulant use 8. Acute blood loss anemia hemoglobin down 9.1-7.7, 24 hours 9. Insulin-dependent diabetes with complications 10. Diabetic gastroparesis. 11. Presbyesophagus. 12. Severe constipation PLAN: 1. Recommend continue lactulose to facilitate complete clearance of moderate stool. 2. Recommend caution in restarting blood thinner as patient is already anemic 3. Overall, patient is elevated risk for complications due to comorbidities. Objective - Vital Signs Vital signs: Vital Signs Temp 97.8 F 07/30/24 07:34 Pulse 114 H 07/30/24 07:34 Resp 18 07/30/24 07:34 BP 119/65 07/30/24 07:34 Pulse Ox 98 07/30/24 07:34 FiO2 Intake & Output 07/29/24 07/30/24 07/30/24 18:59 06:59 18:59 Intake Total 266 Output Total 300 Balance -34 Weight 62 kg 62 kg Intake: Tube Feeding 266 Output: Urine 300 Other: Voiding Method Indwelling Catheter Indwelling Catheter # Bowel Movements 1 1 - Labs CBC & Chem 7: 07/30/24 04:30 07/30/24 04:30 Labs: Abnormal Lab Results - Last 24 Hours (Table) 07/28/24 07/29/24 07/30/24 Range/Units 23:26 17:11 00:32 RBC (4.10-5.20) X 10*6/uL Hgb (12.0-15.0) g/dL Hct (37.2-46.3) % MCV (80.0-97.0) FL MCH (27.0-32.0) pg MCHC (32.0-37.0) g/dL RDW (11.5-14.5) % MPV (9.5-12.2) FL Lymphocytes # (0.90-5.00) X 10*3/uL Eosinophils # (0.04-0.35) X 10*3/uL Potassium (3.5-5.5) mmol/L Chloride (96-109) mmol/L Carbon Dioxide (21.6-31.8) mmol/L Anion Gap (4.00-12.00) mmol/L BUN (9.0-27.0) mg/dL Creatinine (0.6-1.5) mg/dL Est GFR (CKD-EPI) (>=60) BUN/Creatinine Ratio (12.00-20.00) Ratio Glucose (70-110) mg/dL POC Glucose (mg/dL) 223 H 238 H 257 H (70-110) mg/dL Calcium (8.7-10.3) mg/dL 07/30/24 07/30/24 07/30/24 Range/Units 04:30 04:30 06:25 RBC 3.23 L (4.10-5.20) X 10*6/uL Hgb 7.2 L (12.0-15.0) g/dL Hct 24.8 L (37.2-46.3) % MCV 76.8 L (80.0-97.0) FL MCH 22.3 L (27.0-32.0) pg MCHC 29.0 L (32.0-37.0) g/dL RDW 19.8 H (11.5-14.5) % MPV 9.3 L (9.5-12.2) FL Lymphocytes # 0.63 L (0.90-5.00) X 10*3/uL Eosinophils # 0.01 L (0.04-0.35) X 10*3/uL Potassium 3.1 L (3.5-5.5) mmol/L Chloride 112 H (96-109) mmol/L Carbon Dioxide 19.7 L (21.6-31.8) mmol/L Anion Gap 12.30 H (4.00-12.00) mmol/L BUN 51.3 H (9.0-27.0) mg/dL Creatinine 1.6 H (0.6-1.5) mg/dL Est GFR (CKD-EPI) 32 L (>=60) BUN/Creatinine Ratio 32.06 H (12.00-20.00) Ratio Glucose 204 H (70-110) mg/dL POC Glucose (mg/dL) 218 H (70-110) mg/dL Calcium 7.9 L (8.7-10.3) mg/dL 07/30/24 Range/Units 12:14 RBC (4.10-5.20) X 10*6/uL Hgb (12.0-15.0) g/dL Hct (37.2-46.3) % MCV (80.0-97.0) FL MCH (27.0-32.0) pg MCHC (32.0-37.0) g/dL RDW (11.5-14.5) % MPV (9.5-12.2) FL Lymphocytes # (0.90-5.00) X 10*3/uL Eosinophils # (0.04-0.35) X 10*3/uL Potassium (3.5-5.5) mmol/L Chloride (96-109) mmol/L Carbon Dioxide (21.6-31.8) mmol/L Anion Gap (4.00-12.00) mmol/L BUN (9.0-27.0) mg/dL Creatinine (0.6-1.5) mg/dL Est GFR (CKD-EPI) (>=60) BUN/Creatinine Ratio (12.00-20.00) Ratio Glucose (70-110) mg/dL POC Glucose (mg/dL) 226 H (70-110) mg/dL Calcium (8.7-10.3) mg/dL Microbiology - Last 24 Hours (Table) 07/29/24 00:04 Blood Culture - Preliminary Blood
[2024-07-30 13:38] VITALS: BP 133/71; PULSE 102; RESP 16; TEMP 98.3
[2024-07-30 17:59] LABS: Glucose,Whole Blood 177 mg/dL (70-110)
--- NOTE | 2024-08-06 18:39 | CDI ---
Documentation Clarification Form Date: 08/06/2024 06:31:12 PM From: Tamiko Mancini Phone: Admit Date: 07/27/2024 08:59:00 PM Patient Name: Martín Alcaraz Visit Number: [id number] Discharge Date: 07/30/2024 08:00:00 PM ATTENTION: The Clinical Documentation Specialists (CDI) and [facility] Coding Staff appreciate your assistance in clarifying documentation. Please respond to the clarification below the line at the bottom and electronically sign. The CDI & [facility] Coding staff will review the response and follow-up if needed. Please note: Queries are made part of the Legal Health Record. If you have any questions, please contact the author of this message via ITS. Doctor/Provider: Lilliana Thacker Your patient has the documented diagnosis of unspecified CHF Consult 07/28 and Progress Notes 07/29 & 07/30. Additional information regarding the type of CHF is requested. History/Risk Factors: 84yo F, PEG tubedislodgment, fever,asymptomaticbacteriuria, HTN, DMII w hyperglycemia, microcytic anemia, thrombocytosis, hypovolemic,hyponatremia, Hx CVA RT weakness Clinical Indicators: VS/Pulse OX: 94-100 Chest x ray: The heart size is normal. The pulmonary vasculature is normal. The lungs are clear. Treatment: monitored In your professional opinion, can you please clarify the type of CHF if known? [ ] Chronic Systolic Heart Failure (reduced EF) [ x ] Chronic Diastolic Heart Failure (preserved EF) [ ] Chronic Systolic & Diastolic Heart Failure [ ] Other, please specify [ ] Unable to determine (Template Last Revised: October 2020) MTDD
== END 2024-07-30 20:00 | DRG 393 ==
LOC: EC 16:20 → 5NMEDONC 20:59
PROVIDERS: ADMIT Internal Medicine Geriatric Medicine; ATTEND Internal Medicine Geriatric Medicine
PROC: 3E0G76Z Introduction of Nutritional Substance into Upper GI, Via Natural or Artificial Opening (ICD-10-PCS; 2024-07-28)
PROC: 0DH64UZ Insertion of Feeding Device into Stomach, Percutaneous Endoscopic Approach (ICD-10-PCS; principal; 2024-07-28 13:00)
PROC: 0DP68UZ Removal of Feeding Device from Stomach, Via Natural or Artificial Opening Endoscopic (ICD-10-PCS; 2024-07-28 13:00)
DX: K94.23 Gastrostomy malfunction (principal); E43 Unspecified severe protein-calorie malnutrition; I69.351 Hemiplegia and hemiparesis following cerebral infarction affecting right dominant side; E87.1 Hypo-osmolality and hyponatremia; D62 Acute posthemorrhagic anemia; I50.32 Chronic diastolic (congestive) heart failure; I48.20 Chronic atrial fibrillation, unspecified; K56.7 Ileus, unspecified; I11.0 Hypertensive heart disease with heart failure; E11.65 Type 2 diabetes mellitus with hyperglycemia; E11.43 Type 2 diabetes mellitus with diabetic autonomic (poly)neuropathy; K56.41 Fecal impaction; Z79.4 Long term (current) use of insulin; E86.1 Hypovolemia; D50.9 Iron deficiency anemia, unspecified; E78.5 Hyperlipidemia, unspecified; K80.20 Calculus of gallbladder without cholecystitis without obstruction; D75.839 Thrombocytosis, unspecified; K31.84 Gastroparesis; K21.9 Gastro-esophageal reflux disease without esophagitis; R82.71 Bacteriuria; R32 Unspecified urinary incontinence; K22.89 Other specified disease of esophagus; Z85.42 Personal history of malignant neoplasm of other parts of uterus; Z79.01 Long term (current) use of anticoagulants; Z79.84 Long term (current) use of oral hypoglycemic drugs; Z79.899 Other long term (current) drug therapy; Z68.25 Body mass index [BMI] 25.0-25.9, adult
CPT/HCPCS: 43246; 43762; 71045; 74018; 74019; 74176; 80048; 80053; 81001; 83036; 83540; 83550; 83605; 83735; 84100; 84484; 85025; 85610; 85730; 87040; 87077; 87086; 87186; 93005; 94760; 96361; 96374; 96375; 99285

== ENCOUNTER 2024-10-10 21:56 | Inpatient (IN) | payer MEDICARE ==
--- NOTE | 2024-10-10 22:06 | ED ---
Fever HPI - General Stated Complaint: Fever Time Seen by Provider: 10/10/24 22:04 Source: RN notes reviewed, old records reviewed, Caregiver Mode of arrival: EMS Limitations: altered mental status, physical limitation - History of Present Illness Initial Comments: This is an 84-year-old female with poor story and coming in for evaluation for suspected altered mental status decreased responsiveness and concern for fever, patient history is brought in by EMS [address] [facility] [address] [facility] Complaint: fever, malaise, weakness -: unknown Temperature Source: subjective Context: sick contacts, multiple patients with similar symptoms Associated Symptoms: confusion Treatments Prior to Arrival: none - Related Data Home Medications Medication Instructions Recorded Confirmed Empagliflozin [Jardiance] 10 mg PO DAILY 03/04/24 10/11/24 Atorvastatin [Lipitor] 40 mg PO DAILY 06/19/24 10/11/24 Famotidine [Pepcid] 20 mg PO DAILY 06/19/24 10/11/24 Magnesium Hydroxide [Milk of 7,200 mg PO DAILY PRN 06/19/24 10/11/24 Magnesia Concentrate] Na Phos,M-B/Na Phos,Di-Ba [Fleet 133 ml RECTAL DAILY PRN 06/19/24 10/11/24 Adult] Saliva Stimulant Comb. No.3 1 tsp MUCOUS MEM Q8H PRN 06/19/24 10/11/24 [Biotene Moisturizing Mouth] bisacodyL [Dulcolax] 10 mg RECTAL DAILY PRN 06/19/24 10/11/24 carvediloL [Coreg] 12.5 mg PO BID 06/19/24 10/11/24 Acetaminophen Tab [Tylenol] 500 mg PO Q6HR PRN 07/27/24 10/11/24 Furosemide [Lasix] 20 mg PO DAILY 07/27/24 10/11/24 INSULIN LISPRO (humaLOG) [humaLOG] See Protocol SQ ACHS 07/27/24 10/11/24 Potassium Chloride ER [K-Dur 10] 10 meq PEG/G-TUBE DAILY 07/27/24 10/11/24 Apixaban [Eliquis] 2.5 mg PO BID 10/11/24 10/11/24 Ferrous Sulfate Oral Elixir 450 mg PEG/G-TUBE DAILY 10/11/24 10/11/24 [Feosol Liquid] Ipratropium-Albuterol Nebulize 3 ml INHALATION RT-TID PRN 10/11/24 10/11/24 [Duoneb 0.5 mg-3 mg/3 ml Soln] Lactulose [Cephulac] 30 gm PO DAILY 10/11/24 10/11/24 Metoclopramide [Reglan] 5 mg PO DAILY 10/11/24 10/11/24 Simethicone 40 mg/0.6 ml Drops 40 mg PO QID 10/11/24 10/11/24 [Mylicon Drops] guaiFENesin [guaiFENesin ER] 600 mg PO Q12H PRN 10/11/24 10/11/24 Previous Rx's Medication Instructions Recorded Fluconazole Oral Susp [Diflucan 200 mg PO DAILY 3 Days #120 ml 10/16/24 Oral Susp] Insulin Detemir (Levemir) [Levemir] 5 unit SQ BID each 10/16/24 Allergies Allergy/AdvReac Type Severity Reaction Status Date / Time bacitracin Allergy Rash/Hives Verified 10/11/24 07:24 [From Neosporin ([id number])] ibuprofen Allergy Anaphylaxis Verified 10/11/24 07:24 & Rash all over neomycin Allergy Rash/Hives Verified 10/11/24 07:24 [From Neosporin ([id number])] polymyxin B Allergy Rash/Hives Verified 10/11/24 07:24 [From Neosporin ([id number])] Review of Systems ROS Statement: Those systems with pertinent positive or pertinent negative responses have been documented in the HPI. ROS Other: All systems not noted in ROS Statement are negative. Past Medical History Past Medical History: Atrial Fibrillation, Diabetes Mellitus, Hypertension, Osteoarthritis (OA) Additional Past Medical History / Comment(s): uterine cancer, incontinent of urine History of Any Multi-Drug Resistant Organisms: None Reported Past Surgical History: No Surgical Hx Reported Additional Past Surgical History / Comment(s): cataract & carpal-tunnel bilat. Past Anesthesia/Blood Transfusion Reactions: No Reported Reaction Past Psychological History: No Psychological Hx Reported Smoking Status: Never smoker Past Alcohol Use History: None Reported Past Drug Use History: None Reported - Past Family History Mother Family Medical History: Coronary Artery Disease (CAD), Diabetes Mellitus, Hypertension, Mitral Valve Prolapse (MVP) Father Family Medical History: Hypertension Additional Family Medical History / Comment(s): father hip surgery General Exam General appearance: alert, in no apparent distress, anxious Head exam: Present: atraumatic, normocephalic, normal inspection Eye exam: Present: normal appearance, PERRL, EOMI. Absent: scleral icterus, conjunctival injection, periorbital swelling ENT exam: Present: normal exam, mucous membranes moist Neck exam: Present: normal inspection. Absent: tenderness, meningismus, lymphadenopathy Respiratory exam: Present: normal lung sounds bilaterally. Absent: respiratory distress, wheezes, rales, rhonchi, stridor Cardiovascular Exam: Present: normal rhythm, tachycardia, normal heart sounds. Absent: systolic murmur, diastolic murmur, rubs, gallop, clicks GI/Abdominal exam: Present: soft, normal bowel sounds. Absent: distended, tenderness, guarding, rebound, rigid Extremities exam: Present: normal inspection, full ROM, normal capillary refill. Absent: tenderness, pedal edema, joint swelling, calf tenderness Back exam: Present: normal inspection Neurological exam: Present: alert, oriented X3, CN II-XII intact Psychiatric exam: Present: normal affect, normal mood Skin exam: Present: warm, dry, intact, normal color. Absent: rash Course Vital Signs 10/10/24 10/11/24 10/11/24 21:57 03:12 06:01 Temperature 98.1 F 98.0 F Pulse Rate 105 H 103 H 89 Respiratory 18 16 18 Rate Blood Pressure 96/75 107/62 112/80 O2 Sat by Pulse 95 97 98 Oximetry - Reevaluation(s) Reevaluation #1: 10/10/24 22:05 Medical records reviewed Reevaluation #2: 10/10/24 23:26 Patient has no improvement in symptoms here in the ER Reevaluation #3: 10/10/24 23:27 Informed of results and questions answered Reevaluation #4: Was pt. sent in by a medical professional or institution (, PA, [employer], urgent care, hospital, or [place] [facility] facility...) When possible be specific @ -no Did you speak to anyone other than the patient for history (EMS, parent, family, police, friend...)? What history was obtained from this source @ -no Did you review nursing and triage notes (agree or disagree)? Why? @ -agree Are old charts reviewed (outside hosp., previous admission, EMS record, old EKG, old radiological studies, urgent care reports/EKG's, [place] [facility] facility records)? Report findings @ -yes Differential Diagnosis (chest pain, altered mental status, abdominal pain women, abdominal pain men, vaginal bleeding, weakness, fever, dyspnea, syncope, headache, dizziness, GI bleed, back pain, seizure, CVA, palpatations, mental health, musculoskeletal)? @ -prior EKG interpreted by me (3pts min.). @ -yes X-rays interpreted by me (1pt min.). @ -yes negative for acute disease CT interpreted by me (1pt min.). @ -no U/S interpreted by me (1pt. min.). @ -no What testing was considered but not performed or refused? (CT, X-rays, U/S, labs)? Why? @ -none What meds were considered but not given or refused? Why? @ -none Did you discuss the management of the patient with other professionals (professionals i.e. , PA, [employer], lab, RT, psych nurse, manager social responsibility, rn neonatal, teacher, recruitment officer, window caser)? Give summary @ -no Was smoking cessation discussed for >3mins.? @ -no Was critical care preformed (if so, how long)? @ -no Were there social determinants of health that impacted care today? How? (Homelessness, low income, unemployed, alcoholism, drug addiction, transportation, low edu. Level, literacy, decrease access to med. care, senior living, rehab)? @ -none Was there de-escalation of care discussed even if they declined (Discuss DNR or withdrawal of care, Hospice)? DNR status @ -no What co-morbidities impacted this encounter? (DM, HTN, Smoking, COPD, CAD, Cancer, CVA, ARF, Chemo, Hep., AIDS, mental health diagnosis, sleep apnea, morbid obesity)? @ -none Was patient admitted / discharged? Hospital course, mention meds given and route, prescriptions, significant lab abnormalities, going to OR and other pertinent info. @ - 84 female will be admitted for significant UTI sepsis elevated white blood cell count, patient is on antibiotics currently Admitted Undiagnosed new problem with uncertain prognosis? @ -no Drug Therapy requiring intensive monitoring for toxicity (Heparin, Nitro, Insulin, Cardizem)? @ -no Were any procedures done? @ -no Diagnosis/symptom? @ -UTI with sepsis Acute, or Chronic, or Acute on Chronic? @ -Acute Uncomplicated (without systemic symptoms) or Complicated (systemic symptoms)? @ -Complicated Side effects of treatment? @ -no Exacerbation, Progression, or Severe Exacerbation? @ -exacerbation Poses a threat to life or bodily function? How? (Chest pain, [place], [place], pneumonia, PE, COPD, DKA, ARF, appy, cholecystitis, CVA, Diverticulitis, Homicidal, Suicidal, threat to staff... and all critical care pts) @ -yes extremes of age Reevaluation #5: Differential Fever: Pneumonia, viral URI, endocarditis, myocarditis, pericarditis, otitis, sinusitis, peritonsillar Abscess, retropharyngeal Abscess, epiglottitis, peritonitis, appendicitis, [place] cystitis, diverticulitis, hepatitis, colitis, UTI, PID, TOA, pyelonephritis, prostatitis, epididymitis, meningitis, encephalitis, pulmonary embolism, CVA, thyroid storm, pancreatitis, adrenal crisis, cavernous sinus thrombosis, this is not meant to be an all-inclusive list. - Consultations Consultation #1: Spoke with [facility] who agrees to admit this patient Medical Decision Making - Medical Decision Making 84 female will be admitted for significant UTI sepsis elevated white blood cell count, patient is on antibiotics currently - Lab Data Result diagrams: 10/16/24 05:10 10/16/24 15:10 Lab Results 10/10/24 10/10/24 10/10/24 Range/Units 22:05 22:05 22:23 WBC 24.7 H (3.8-10.6) k/uL RBC 4.43 (3.80-5.40) m/uL Hgb 10.2 L (11.4-16.0) gm/dL Hct 32.2 L (34.0-46.0) % MCV 72.7 L (80.0-100.0) fL MCH 23.0 L (25.0-35.0) pg MCHC 31.6 (31.0-37.0) g/dL RDW 18.3 H (11.5-15.5) % Plt Count 415 (150-450) k/uL MPV 7.2 Neutrophils % 93 % Lymphocytes % 3 % Monocytes % 3 % Eosinophils % 0 % Basophils % 0 % Neutrophils # 23.0 H (1.3-7.7) k/uL Lymphocytes # 0.8 L (1.0-4.8) k/uL Monocytes # 0.7 (0-1.0) k/uL Eosinophils # 0.0 (0-0.7) k/uL Basophils # 0.0 (0-0.2) k/uL Hypochromasia Slight Anisocytosis Slight Microcytosis Moderate PT (10.0-12.5) sec INR (<1.2) APTT (22.0-30.0) sec Sodium (137-145) mmol/L Potassium (3.5-5.1) mmol/L Chloride (98-107) mmol/L Carbon Dioxide (22-30) mmol/L Anion Gap mmol/L BUN (7-17) mg/dL Creatinine (0.52-1.04) mg/dL Est GFR (CKD-EPI)AfAm (>60 ml/min/1.73 sqM) Est GFR (CKD-EPI)NonAf (>60 ml/min/1.73 sqM) Glucose (74-99) mg/dL Plasma Lactic Acid Jose L (0.7-2.0) mmol/L Calcium (8.4-10.2) mg/dL Phosphorus (2.5-4.5) mg/dL Magnesium (1.6-2.3) mg/dL Total Bilirubin (0.2-1.3) mg/dL AST (14-36) U/L ALT (4-34) U/L Alkaline Phosphatase (38-126) U/L Troponin I (0.000-0.034) ng/mL NT-Pro-B Natriuret Pep pg/mL Total Protein (6.3-8.2) g/dL Albumin (3.5-5.0) g/dL Urine Color Yellow Urine Appearance Turbid H (Clear) Urine pH 6.0 (5.0-8.0) Ur Specific [place] 1.016 (1.001-1.035) Urine Protein 1+ H (Negative) Urine Glucose (UA) 4+ H (Negative) Urine Ketones Negative (Negative) Urine Blood Moderate H (Negative) Urine Nitrite Negative (Negative) Urine Bilirubin Negative (Negative) Urine Urobilinogen <2.0 (<2.0) mg/dL Ur Leukocyte Esterase Large H (Negative) Urine RBC 30 H (0-5) /hpf Urine WBC >182 H (0-5) /hpf Urine WBC Clumps Many H (None) /hpf Urine Bacteria Many H (None) /hpf Urine Mucus Rare H (None) /hpf Influenza Type A (PCR) Not Detected (Not Detectd) Influenza Type B (PCR) Not Detected (Not Detectd) RSV (PCR) Not Detected (Not Detectd) SARS-CoV-2 (PCR) Not Detected (Not Detectd) 10/10/24 10/10/24 10/10/24 Range/Units 22:23 22:23 22:23 WBC (3.8-10.6) k/uL RBC (3.80-5.40) m/uL Hgb (11.4-16.0) gm/dL Hct (34.0-46.0) % MCV (80.0-100.0) fL MCH (25.0-35.0) pg MCHC (31.0-37.0) g/dL RDW (11.5-15.5) % Plt Count (150-450) k/uL MPV Neutrophils % % Lymphocytes % % Monocytes % % Eosinophils % % Basophils % % Neutrophils # (1.3-7.7) k/uL Lymphocytes # (1.0-4.8) k/uL Monocytes # (0-1.0) k/uL Eosinophils # (0-0.7) k/uL Basophils # (0-0.2) k/uL Hypochromasia Anisocytosis Microcytosis PT 12.2 (10.0-12.5) sec INR 1.1 (<1.2) APTT 25.3 (22.0-30.0) sec Sodium 136 L (137-145) mmol/L Potassium 3.7 (3.5-5.1) mmol/L Chloride 102 (98-107) mmol/L Carbon Dioxide 25 (22-30) mmol/L Anion Gap 9 mmol/L BUN 44 H (7-17) mg/dL Creatinine 1.41 H (0.52-1.04) mg/dL Est GFR (CKD-EPI)AfAm 40 (>60 ml/min/1.73 sqM) Est GFR (CKD-EPI)NonAf 35 (>60 ml/min/1.73 sqM) Glucose 144 H (74-99) mg/dL Plasma Lactic Acid Jose L 2.2 H* (0.7-2.0) mmol/L Calcium 8.6 (8.4-10.2) mg/dL Phosphorus 4.2 (2.5-4.5) mg/dL Magnesium 2.2 (1.6-2.3) mg/dL Total Bilirubin 0.8 (0.2-1.3) mg/dL AST 25 (14-36) U/L ALT 15 (4-34) U/L Alkaline Phosphatase 125 (38-126) U/L Troponin I (0.000-0.034) ng/mL NT-Pro-B Natriuret Pep 70231 pg/mL Total Protein 7.3 (6.3-8.2) g/dL Albumin 2.9 L (3.5-5.0) g/dL Urine Color Urine Appearance (Clear) Urine pH (5.0-8.0) Ur Specific [place] (1.001-1.035) Urine Protein (Negative) Urine Glucose (UA) (Negative) Urine Ketones (Negative) Urine Blood (Negative) Urine Nitrite (Negative) Urine Bilirubin (Negative) Urine Urobilinogen (<2.0) mg/dL Ur Leukocyte Esterase (Negative) Urine RBC (0-5) /hpf Urine WBC (0-5) /hpf Urine WBC Clumps (None) /hpf Urine Bacteria (None) /hpf Urine Mucus (None) /hpf Influenza Type A (PCR) (Not Detectd) Influenza Type B (PCR) (Not Detectd) RSV (PCR) (Not Detectd) SARS-CoV-2 (PCR) (Not Detectd) 10/10/24 Range/Units 22:23 WBC (3.8-10.6) k/uL RBC (3.80-5.40) m/uL Hgb (11.4-16.0) gm/dL Hct (34.0-46.0) % MCV (80.0-100.0) fL MCH (25.0-35.0) pg MCHC (31.0-37.0) g/dL RDW (11.5-15.5) % Plt Count (150-450) k/uL MPV Neutrophils % % Lymphocytes % % Monocytes % % Eosinophils % % Basophils % % Neutrophils # (1.3-7.7) k/uL Lymphocytes # (1.0-4.8) k/uL Monocytes # (0-1.0) k/uL Eosinophils # (0-0.7) k/uL Basophils # (0-0.2) k/uL Hypochromasia Anisocytosis Microcytosis PT (10.0-12.5) sec INR (<1.2) APTT (22.0-30.0) sec Sodium (137-145) mmol/L Potassium (3.5-5.1) mmol/L Chloride (98-107) mmol/L Carbon Dioxide (22-30) mmol/L Anion Gap mmol/L BUN (7-17) mg/dL Creatinine (0.52-1.04) mg/dL Est GFR (CKD-EPI)AfAm (>60 ml/min/1.73 sqM) Est GFR (CKD-EPI)NonAf (>60 ml/min/1.73 sqM) Glucose (74-99) mg/dL Plasma Lactic Acid Jose L (0.7-2.0) mmol/L Calcium (8.4-10.2) mg/dL Phosphorus (2.5-4.5) mg/dL Magnesium (1.6-2.3) mg/dL Total Bilirubin (0.2-1.3) mg/dL AST (14-36) U/L ALT (4-34) U/L Alkaline Phosphatase (38-126) U/L Troponin I 0.024 (0.000-0.034) ng/mL NT-Pro-B Natriuret Pep pg/mL Total Protein (6.3-8.2) g/dL Albumin (3.5-5.0) g/dL Urine Color Urine Appearance (Clear) Urine pH (5.0-8.0) Ur Specific [place] (1.001-1.035) Urine Protein (Negative) Urine Glucose (UA) (Negative) Urine Ketones (Negative) Urine Blood (Negative) Urine Nitrite (Negative) Urine Bilirubin (Negative) Urine Urobilinogen (<2.0) mg/dL Ur Leukocyte Esterase (Negative) Urine RBC (0-5) /hpf Urine WBC (0-5) /hpf Urine WBC Clumps (None) /hpf Urine Bacteria (None) /hpf Urine Mucus (None) /hpf Influenza Type A (PCR) (Not Detectd) Influenza Type B (PCR) (Not Detectd) RSV (PCR) (Not Detectd) SARS-CoV-2 (PCR) (Not Detectd) - EKG Data -: EKG Interpreted by Me (EKG is A-fib with RVR 112 QRS 104 QTc 416) - Radiology Data Radiology results: report reviewed (Chest x-ray is negative for acute disease), image reviewed Disposition Clinical Impression: Weakness, UTI (urinary tract infection), Sepsis Disposition: ADMITTED IP TO THIS HOSP Condition: Fair Is patient prescribed a controlled substance at d/c from ED?: No Time of Disposition: 23:20
[2024-10-10 22:38] LABS: Anisocytosis Slight; Basophils % (A) 0 %; Eosinophils % (A) 0 %; HCT 32.2 % (34.0-46.0); HGB 10.2 gm/dL (11.4-16.0); Hypochromasia Slight; Lymphocytes # (A) 0.8 k/uL (1.0-4.8); Lymphocytes % (A) 3 %; MCHC 31.6 g/dL (31.0-37.0); MCV 72.7 fL (80.0-100.0); Mean Platelet Volume 7.2; Microcytosis Moderate; Monocytes # (A) 0.7 k/uL (0-1.0); Monocytes % (A) 3 %; Neutrophils % (A) 93 %; Platelet Count 415 k/uL (150-450); RBC 4.43 m/uL (3.80-5.40); RDW 18.3 % (11.5-15.5); WBC 24.7 k/uL (3.8-10.6)
[2024-10-10] MEDS: ACETAMINOPHEN TAB 500 MG TAB PO STA (22:45)
[2024-10-10] MEDS: SODIUM CHLORIDE 0.9% 1,000 ML IV STA (22:45)
[2024-10-10] MEDS: ONDANSETRON 4 MG/2 ML VIAL IVP STA (22:45)
[2024-10-10] MEDS: SODIUM CHLORIDE 0.9% 500 ML 500 ML IV STA (22:47)
[2024-10-10 22:48] LABS: INR 1.1 (<1.2); Partial Thromboplastin Time 25.3 sec (22.0-30.0); Prothrombin Time 12.2 sec (10.0-12.5)
[2024-10-10 23:12] LABS: Influenza A Not Detected (Not Detectd); Influenza B Not Detected (Not Detectd); RSV Not Detected (Not Detectd)
[2024-10-10 23:15] LABS: Appearance,Urine Turbid (Clear); Bacteria,Urine Many /hpf; Bilirubin,Urine Negative (Negative); Blood,Urine Moderate (Negative); Color,Urine Yellow; Glucose,Urine (UA) 4+ (Negative); Ketones,Urine Negative (Negative); Leukocyte Esterase,Urine Large (Negative); Mucus,Urine Rare /hpf; Nitrite,Urine Negative (Negative); Protein,Urine 1+ (Negative); RBC,Urine 30 /hpf (0-5); Specific Gravity,Urine 1.016 (1.001-1.035); Urobilinogen,Urine <2.0 mg/dL (<2.0); WBC,Urine >182 /hpf (0-5)
[2024-10-10] MEDS ORDERED: NALOXONE 0.4 MG/ML 1 ML VIAL IV PRN (23:24)
[2024-10-10] MEDS ORDERED: MORPHINE SULFATE 4 MG/ML SYRINGE IV PRN (23:24)
[2024-10-10] MEDS: SODIUM CHLORIDE 0.9% 1,000 ML IV SCH (23:39)
[2024-10-10 23:54] LABS: ALT 15 U/L (4-34); AST 25 U/L (14-36); African American GFR (CKD) 40 (>60 ml/min/1.73 sqM); Albumin 2.9 g/dL (3.5-5.0); Alkaline Phosphatase 125 U/L (38-126); Anion Gap 9 mmol/L; Blood Urea Nitrogen 44 mg/dL (7-17); Calcium 8.6 mg/dL (8.4-10.2); Carbon Dioxide 25 mmol/L (22-30); Chloride 102 mmol/L (98-107); Glucose 144 mg/dL (74-99); Magnesium 2.2 mg/dL (1.6-2.3); Non-African American GFR(CKD) 35 (>60 ml/min/1.73 sqM); Phosphorus 4.2 mg/dL (2.5-4.5); Potassium 3.7 mmol/L (3.5-5.1); Sodium 136 mmol/L (137-145); Total Bilirubin 0.8 mg/dL (0.2-1.3); Total Protein 7.3 g/dL (6.3-8.2)
[2024-10-11 00:42] LABS: NT-Pro-B-Type Natriuretic Pept 17600 pg/mL
[2024-10-11] MEDS: SODIUM CHLORIDE 0.9% 1,000 ML IV SCH ×2 (00:58→10:10)
[2024-10-11] MEDS: PANTOPRAZOLE 40 MG/10 ML VIAL IV SCH (01:01)
[2024-10-11] MEDS: SODIUM CHLORIDE 0.9% 1,000 ML IV STA (01:02)
--- NOTE | 2024-10-11 01:34 | XR ---
EXAM: XR Chest, 2 Views CLINICAL HISTORY: ITS.REASON XR Reason: Weakness TECHNIQUE: Frontal and lateral views of the chest. COMPARISON: No relevant prior studies available. IMPRESSION: Cardiomegaly with mild vascular congestion
[2024-10-11 03:31] LABS: Anisocytosis Slight; Basophils % (A) 0 %; Eosinophils % (A) 0 %; HCT 29.3 % (34.0-46.0); HGB 9.2 gm/dL (11.4-16.0); Hypochromasia Moderate; Lymphocytes # (A) 0.9 k/uL (1.0-4.8); Lymphocytes % (A) 4 %; MCH 23.4 pg (25.0-35.0); MCHC 31.2 g/dL (31.0-37.0); MCV 74.8 fL (80.0-100.0); Mean Platelet Volume 7.2; Microcytosis Moderate; Monocytes # (A) 0.6 k/uL (0-1.0); Monocytes % (A) 3 %; Neutrophils # (A) 19.8 k/uL (1.3-7.7); Neutrophils % (A) 92 %; Platelet Count 394 k/uL (150-450); RBC 3.92 m/uL (3.80-5.40); RDW 18.6 % (11.5-15.5); WBC 21.5 k/uL (3.8-10.6)
[2024-10-11 03:56] LABS: ALT 12 U/L (4-34); AST 19 U/L (14-36); African American GFR (CKD) 38 (>60 ml/min/1.73 sqM); Albumin 2.5 g/dL (3.5-5.0); Alkaline Phosphatase 105 U/L (38-126); Anion Gap 10 mmol/L; Blood Urea Nitrogen 42 mg/dL (7-17); Carbon Dioxide 21 mmol/L (22-30); Chloride 106 mmol/L (98-107); Glucose 151 mg/dL (74-99); Magnesium 2.1 mg/dL (1.6-2.3); Non-African American GFR(CKD) 33 (>60 ml/min/1.73 sqM); Phosphorus 4.7 mg/dL (2.5-4.5); Potassium 3.7 mmol/L (3.5-5.1); Sodium 137 mmol/L (137-145); Total Bilirubin 0.6 mg/dL (0.2-1.3); Total Protein 6.6 g/dL (6.3-8.2)
[2024-10-11 07:41] LABS: Glucose,Whole Blood 161 mg/dL (70-110)
[2024-10-11] MEDS ORDERED: IPRATROPIUM-ALBUTEROL 3 ML NEB INHALATION PRN (09:54)
[2024-10-11] MEDS: DAPAGLIFLOZIN PROPANEDIOL 5 MG TABLET PO SCH (10:10)
[2024-10-11] MEDS: APIXABAN 2.5 MG TABLET PO SCH (10:10)
[2024-10-11] MEDS: carvediloL 12.5 MG TAB PO SCH (10:10)
[2024-10-11] MEDS: FERROUS SULFATE ORAL ELIXIR 300 MG/5 ML CUP PEG/G-TUBE SCH (11:25)
[2024-10-11 12:51] LABS: Glucose,Whole Blood 159 mg/dL (70-110)
[2024-10-11] MEDS: CEFEPIME 2 GM in SODIUM CHLORIDE 0.9% 100 ML IVPB SCH (13:14)
[2024-10-11] MEDS ORDERED: DEXTROSE 50% SYRINGE 50 ML IVP PRN ×2 (14:30)
--- NOTE | 2024-10-11 14:34 | P.HPIM ---
History of Present Illness H&P Date: 10/11/24 This is a pleasant 84-year-old female with medical history significant for atrial fibrillation, diabetes mellitus, hypertension, permanent PEG tube placement. Patient comes into the hospital from the shelter with concern for fever and altered mentation. While in the ER patient was found to have abnormal urine with a white blood cell count of 24.7. Noted that patient does have a chronic indwelling Ramesh catheter and states that the shelter changed out on . She has a sodium level 137 and a BUN of 44 creatinine of 1.41. Her lactic acid is 2.2. She is admitted with concern for urinary tract infection and sepsis. Chest x-ray is read as vascular congestion however upon review does not appear to be congestive [place] [address]. Patient received fluid bolus and was started on normal saline at 130 mL/h. Is not appear volume overloaded at this time. She was started empirically on IV ceftriaxone urine culture and blood cultures are curre ntly pending at this time. Of note the patient was in the hospital most recently in July 2024 where she underwent PEG tube replacement for a dislodged PEG tube. At that time a urinalysis was done showing Pseudomonas pansensitive. ID will be consulted for further evaluation recommendations. Madi villeda is not complaining of any chest pain or shortness of breath at this time and she has been afebrile. She is currently awake alert and oriented. REVIEW OF SYSTEMS: CONSTITUTIONAL: No fever, no malaise, no fatigue. HEENT: No recent visual problems or hearing problems. Denied any sore throat. CARDIOVASCULAR: No chest pain, orthopnea, PND, no palpitations, no syncope. PULMONARY: No shortness of breath, no cough, no hemoptysis. GASTROINTESTINAL: No diarrhea, no nausea, no vomiting, no abdominal pain. NEUROLOGICAL: No headaches, no weakness, no numbness. HEMATOLOGICAL: Denies any bleeding or petechiae. GENITOURINARY: Denies any burning micturition, frequency, or urgency. MUSCULOSKELETAL/RHEUMATOLOGICAL: Denies any joint pain, swelling, or any muscle pain. ENDOCRINE: Denies any polyuria or polydipsia. The rest of the 14-point review of systems is negative. PHYSICAL EXAMINATION: GENERAL: The patient is alert and oriented x3, not in any acute distress. Well developed, well nourished. HEENT: Pupils are round and equally reacting to light. EOMI. No scleral icterus. No conjunctival pallor. Normocephalic, atraumatic. No pharyngeal erythema. No thyromegaly. CARDIOVASCULAR: S1 and S2 present. No murmurs, rubs, or gallops. PULMONARY: Chest is clear to auscultation, no wheezing or crackles. ABDOMEN: Soft, nontender, nondistended, normoactive bowel sounds. No palpable organomegaly. Peg tube in place site does not look infected. Chronic ramesh. MUSCULOSKELETAL: No joint swelling or deformity. EXTREMITIES: No cyanosis, clubbing, mild pedal edema. NEUROLOGICAL: Gross neurological examination did not reveal any focal deficits. Diffuse weakness SKIN: No rashes. 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 Dr. Nitin MD I have performed a history and physical examination and medical decision making of this patient, discussed the same with the dictator, and agree with the dictators assessment and plan as written, documented as a scribe. Based on total visit time, I have performed more than 50% of this visit. Past Medical History Past Medical History: Atrial Fibrillation, Diabetes Mellitus, Hypertension, Osteoarthritis (OA) Additional Past Medical History / Comment(s): uterine cancer, incontinent of urine History of Any Multi-Drug Resistant Organisms: None Reported Past Surgical History: No Surgical Hx Reported Additional Past Surgical History / Comment(s): cataract & carpal-tunnel bilat. Past Anesthesia/Blood Transfusion Reactions: No Reported Reaction Past Psychological History: No Psychological Hx Reported Smoking Status: Never smoker Past Alcohol Use History: None Reported Past Drug Use History: None Reported - Past Family History Mother Family Medical History: Coronary Artery Disease (CAD), Diabetes Mellitus, Hypertension, Mitral Valve Prolapse (MVP) Father Family Medical History: Hypertension Additional Family Medical History / Comment(s): father hip surgery Medications and Allergies Home Medications Medication Instructions Recorded Confirmed Type Empagliflozin [Jardiance] 10 mg PO DAILY 03/04/24 10/11/24 History Atorvastatin [Lipitor] 40 mg PO DAILY 06/19/24 10/11/24 History Famotidine [Pepcid] 20 mg PO DAILY 06/19/24 10/11/24 History Magnesium Hydroxide [Milk of 7,200 mg PO DAILY PRN 06/19/24 10/11/24 History Magnesia Concentrate] Na Phos,M-B/Na Phos,Di-Ba [Fleet 133 ml RECTAL DAILY PRN 06/19/24 10/11/24 History Adult] Saliva Stimulant Comb. No.3 1 tsp MUCOUS MEM Q8H PRN 06/19/24 10/11/24 History [Biotene Moisturizing Mouth] bisacodyL [Dulcolax] 10 mg RECTAL DAILY PRN 06/19/24 10/11/24 History carvediloL [Coreg] 12.5 mg PO BID 06/19/24 10/11/24 History Acetaminophen Tab [Tylenol] 500 mg PO Q6HR PRN 07/27/24 10/11/24 History Furosemide [Lasix] 20 mg PO DAILY 07/27/24 10/11/24 History INSULIN LISPRO (humaLOG) [humaLOG] See Protocol SQ ACHS 07/27/24 10/11/24 History Potassium Chloride ER [K-Dur 10] 10 meq PEG/G-TUBE DAILY 07/27/24 10/11/24 History Apixaban [Eliquis] 2.5 mg PO BID 10/11/24 10/11/24 History Ferrous Sulfate Oral Elixir 450 mg PEG/G-TUBE DAILY 10/11/24 10/11/24 History [Feosol Liquid] Ipratropium-Albuterol Nebulize 3 ml INHALATION RT-TID PRN 10/11/24 10/11/24 History [Duoneb 0.5 mg-3 mg/3 ml Soln] Lactulose [Cephulac] 30 gm PO DAILY 10/11/24 10/11/24 History Metoclopramide [Reglan] 5 mg PO DAILY 10/11/24 10/11/24 History Simethicone 40 mg/0.6 ml Drops 40 mg PO QID 10/11/24 10/11/24 History [Mylicon Drops] guaiFENesin [guaiFENesin ER] 600 mg PO Q12H PRN 10/11/24 10/11/24 History Allergies Allergy/AdvReac Type Severity Reaction Status Date / Time bacitracin Allergy Rash/Hives Verified 10/11/24 07:24 [From Neosporin ([id number])] ibuprofen Allergy Anaphylaxis Verified 10/11/24 07:24 & Rash all over neomycin Allergy Rash/Hives Verified 10/11/24 07:24 [From Neosporin ([id number])] polymyxin B Allergy Rash/Hives Verified 10/11/24 07:24 [From Neosporin ([id number])] Physical Exam Vitals: Vital Signs Temp Pulse Pulse Resp BP BP Pulse Ox 10/11/24 13:07 97.7 F 79 18 93/54 99 10/11/24 07:35 97.5 F L 95 17 106/65 97 10/11/24 06:01 89 18 112/80 98 10/11/24 03:12 98.0 F 103 H 16 107/62 97 10/10/24 21:57 98.1 F 105 H 18 96/75 95 Intake and Output 10/10/24 10/11/24 10/11/24 22:59 06:59 14:59 Other: Weight 77.111 kg Results CBC & Chem 7: 10/11/24 02:55 10/11/24 02:55 Labs: Abnormal Lab Results - Last 24 Hours (Table) 10/10/24 10/10/24 10/10/24 Range/Units 22:05 22:23 22:23 WBC 24.7 H (3.8-10.6) k/uL Hgb 10.2 L (11.4-16.0) gm/dL Hct 32.2 L (34.0-46.0) % MCV 72.7 L (80.0-100.0) fL MCH 23.0 L (25.0-35.0) pg RDW 18.3 H (11.5-15.5) % Neutrophils # 23.0 H (1.3-7.7) k/uL Lymphocytes # 0.8 L (1.0-4.8) k/uL Sodium 136 L (137-145) mmol/L Carbon Dioxide (22-30) mmol/L BUN 44 H (7-17) mg/dL Creatinine 1.41 H (0.52-1.04) mg/dL Glucose 144 H (74-99) mg/dL POC Glucose (mg/dL) (70-110) mg/dL Plasma Lactic Acid Jose L (0.7-2.0) mmol/L Calcium (8.4-10.2) mg/dL Phosphorus (2.5-4.5) mg/dL Albumin 2.9 L (3.5-5.0) g/dL Urine Appearance Turbid H (Clear) Urine Protein 1+ H (Negative) Urine Glucose (UA) 4+ H (Negative) Urine Blood Moderate H (Negative) Ur Leukocyte Esterase Large H (Negative) Urine RBC 30 H (0-5) /hpf Urine WBC >182 H (0-5) /hpf Urine WBC Clumps Many H (None) /hpf Urine Bacteria Many H (None) /hpf Urine Mucus Rare H (None) /hpf 10/10/24 10/11/24 10/11/24 Range/Units 22:23 02:55 02:55 WBC 21.5 H (3.8-10.6) k/uL Hgb 9.2 L (11.4-16.0) gm/dL Hct 29.3 L (34.0-46.0) % MCV 74.8 L (80.0-100.0) fL MCH 23.4 L (25.0-35.0) pg RDW 18.6 H (11.5-15.5) % Neutrophils # 19.8 H (1.3-7.7) k/uL Lymphocytes # 0.9 L (1.0-4.8) k/uL Sodium (137-145) mmol/L Carbon Dioxide 21 L (22-30) mmol/L BUN 42 H (7-17) mg/dL Creatinine 1.48 H (0.52-1.04) mg/dL Glucose 151 H (74-99) mg/dL POC Glucose (mg/dL) (70-110) mg/dL Plasma Lactic Acid Jose L 2.2 H* (0.7-2.0) mmol/L Calcium 8.0 L (8.4-10.2) mg/dL Phosphorus 4.7 H (2.5-4.5) mg/dL Albumin 2.5 L (3.5-5.0) g/dL Urine Appearance (Clear) Urine Protein (Negative) Urine Glucose (UA) (Negative) Urine Blood (Negative) Ur Leukocyte Esterase (Negative) Urine RBC (0-5) /hpf Urine WBC (0-5) /hpf Urine WBC Clumps (None) /hpf Urine Bacteria (None) /hpf Urine Mucus (None) /hpf 10/11/24 10/11/24 Range/Units 07:39 12:41 WBC (3.8-10.6) k/uL Hgb (11.4-16.0) gm/dL Hct (34.0-46.0) % MCV (80.0-100.0) fL MCH (25.0-35.0) pg RDW (11.5-15.5) % Neutrophils # (1.3-7.7) k/uL Lymphocytes # (1.0-4.8) k/uL Sodium (137-145) mmol/L Carbon Dioxide (22-30) mmol/L BUN (7-17) mg/dL Creatinine (0.52-1.04) mg/dL Glucose (74-99) mg/dL POC Glucose (mg/dL) 161 H 159 H (70-110) mg/dL Plasma Lactic Acid Jose L (0.7-2.0) mmol/L Calcium (8.4-10.2) mg/dL Phosphorus (2.5-4.5) mg/dL Albumin (3.5-5.0) g/dL Urine Appearance (Clear) Urine Protein (Negative) Urine Glucose (UA) (Negative) Urine Blood (Negative) Ur Leukocyte Esterase (Negative) Urine RBC (0-5) /hpf Urine WBC (0-5) /hpf Urine WBC Clumps (None) /hpf Urine Bacteria (None) /hpf Urine Mucus (None) /hpf Assessment and Plan Time with Patient: Less than 30
[2024-10-11 17:23] LABS: Glucose,Whole Blood 221 mg/dL (70-110)
[2024-10-11] MEDS: INSULIN ASPART (NovoLOG) 100 UNIT/ML VIAL SQ SCH (18:01)
[2024-10-11 20:26] LABS: Glucose,Whole Blood 259 mg/dL (70-110)
[2024-10-11] MEDS: ZINC OXIDE PASTE (Z-GUARD) 1 APPLIC TOPICAL PRN (21:16)
[2024-10-12] MEDS: ONDANSETRON 4 MG/2 ML VIAL IVP PRN (04:40)
[2024-10-12 07:38] LABS: Glucose,Whole Blood 162 mg/dL (70-110)
[2024-10-12] MEDS: ATORVASTATIN 40 MG TAB PO SCH (08:50)
--- NOTE | 2024-10-12 09:07 | P.CONS ---
History of Present Illness - Reason for Consult Consult date: 10/11/24 Urinary tract infection Requesting physician: Tonya Vargas - Chief Complaint Mental status changes x 1 day - History of Present Illness Patient is 84-year-old female with a past medical history significant for diabetes mellitus hypertension osteoarthritis atrial fibrillation presenting to the hospital for the local senior care with concern for fever and mental status changes patient also noticed to have elevated white count and did have chronic indwelling Streeter catheter that apparently changed on and concern for catheter assisted UTI on presentation to the hospital patient was afebrile patient has mild tachycardia but no hypotension or hypoxemia did have white count 24.7 with a left shift. Negative has been mildly elevated lactic acid was 2.2 liver isms are normal urine has been positive influenza RSV COVID testing negative blood cultures obtained which are currently pending urine cultures are pending as well patient was started on cefepime 2 g every 12 hours infectious disease was consulted for further management of antibiotic therapy patient at the time of evaluation denies having any fever or chills patient not a very good historian no chest pain or shortness but she did have some cough no nausea vomiting or diarrhea Review of Systems Positive points has been mentioned in HPI complete review could not be obtained because of his underlying mental status Past Medical History Past Medical History: Atrial Fibrillation, Diabetes Mellitus, Hypertension, Ost eoarthritis (OA) Additional Past Medical History / Comment(s): uterine cancer, incontinent of urine History of Any Multi-Drug Resistant Organisms: None Reported Past Surgical History: No Surgical Hx Reported Additional Past Surgical History / Comment(s): cataract & carpal-tunnel bilat. Past Anesthesia/Blood Transfusion Reactions: No Reported Reaction Past Psychological History: No Psychological Hx Reported Smoking Status: Never smoker Past Alcohol Use History: None Reported Past Drug Use History: None Reported - Past Family History Mother Family Medical History: Coronary Artery Disease (CAD), Diabetes Mellitus, Hypertension, Mitral Valve Prolapse (MVP) Father Family Medical History: Hypertension Additional Family Medical History / Comment(s): father hip surgery Medications and Allergies Home Medications Medication Instructions Recorded Confirmed Type Empagliflozin [Jardiance] 10 mg PO DAILY 03/04/24 10/11/24 History Atorvastatin [Lipitor] 40 mg PO DAILY 06/19/24 10/11/24 History Famotidine [Pepcid] 20 mg PO DAILY 06/19/24 10/11/24 History Magnesium Hydroxide [Milk of 7,200 mg PO DAILY PRN 06/19/24 10/11/24 History Magnesia Concentrate] Na Phos,M-B/Na Phos,Di-Ba [Fleet 133 ml RECTAL DAILY PRN 06/19/24 10/11/24 History Adult] Saliva Stimulant Comb. No.3 1 tsp MUCOUS MEM Q8H PRN 06/19/24 10/11/24 History [Biotene Moisturizing Mouth] bisacodyL [Dulcolax] 10 mg RECTAL DAILY PRN 06/19/24 10/11/24 History carvediloL [Coreg] 12.5 mg PO BID 06/19/24 10/11/24 History Acetaminophen Tab [Tylenol] 500 mg PO Q6HR PRN 07/27/24 10/11/24 History Furosemide [Lasix] 20 mg PO DAILY 07/27/24 10/11/24 History INSULIN LISPRO (humaLOG) [humaLOG] See Protocol SQ ACHS 07/27/24 10/11/24 History Potassium Chloride ER [K-Dur 10] 10 meq PEG/G-TUBE DAILY 07/27/24 10/11/24 His tory Apixaban [Eliquis] 2.5 mg PO BID 10/11/24 10/11/24 History Ferrous Sulfate Oral Elixir 450 mg PEG/G-TUBE DAILY 10/11/24 10/11/24 History [Feosol Liquid] Ipratropium-Albuterol Nebulize 3 ml INHALATION RT-TID PRN 10/11/24 10/11/24 History [Duoneb 0.5 mg-3 mg/3 ml Soln] Lactulose [Cephulac] 30 gm PO DAILY 10/11/24 10/11/24 History Metoclopramide [Reglan] 5 mg PO DAILY 10/11/24 10/11/24 History Simethicone 40 mg/0.6 ml Drops 40 mg PO QID 10/11/24 10/11/24 History [Mylicon Drops] guaiFENesin [guaiFENesin ER] 600 mg PO Q12H PRN 10/11/24 10/11/24 History Allergies Allergy/AdvReac Type Severity Reaction Status Date / Time bacitracin Allergy Rash/Hives Verified 10/11/24 07:24 [From Neosporin ([id number])] ibuprofen Allergy Anaphylaxis Verified 10/11/24 07:24 & Rash all over neomycin Allergy Rash/Hives Verified 10/11/24 07:24 [From Neosporin ([id number])] polymyxin B Allergy Rash/Hives Verified 10/11/24 07:24 [From Neosporin ([id number])] Physical Exam Vitals: Vital Signs Temp Pulse Pulse Resp BP BP Pulse Ox 10/11/24 07:35 97.5 F L 95 17 106/65 97 10/11/24 06:01 89 18 112/80 98 10/11/24 03:12 98.0 F 103 H 16 107/62 97 10/10/24 21:57 98.1 F 105 H 18 96/75 95 Intake and Output 10/10/24 10/11/24 10/11/24 22:59 06:59 14:59 Other: Weight 77.111 kg GENERAL DESCRIPTION: Elderly female lying in bed, no distress. No tachypnea or accessory muscle of respiration use. HEENT: Shows Pallor , no scleral icterus. Oral mucous membrane is dry. NECK: Trachea central, no thyromegaly. LUNGS: Unlabored breathing. Decreased breath sound at base HEART: S1, S2, regular rate and rhythm. No loud murmur ABDOMEN: Soft, no tenderness , EXTREMITIES: No edema of feet. SKIN: No rash, no masses palpable. NEUROLOGICAL: The patient is awake, confused, mood and affect normal. Results CBC & Chem 7: 10/12/24 05:46 10/12/24 05:45 Labs: Abnormal Lab Results - Last 24 Hours (Table) 10/10/24 10/10/24 10/10/24 Range/Units 22:05 22:23 22:23 WBC 24.7 H (3.8-10.6) k/uL Hgb 10.2 L (11.4-16.0) gm/dL Hct 32.2 L (34.0-46.0) % MCV 72.7 L (80.0-100.0) fL MCH 23.0 L (25.0-35.0) pg RDW 18.3 H (11.5-15.5) % Neutrophils # 23.0 H (1.3-7.7) k/uL Lymphocytes # 0.8 L (1.0-4.8) k/uL Sodium 136 L (137-145) mmol/L Carbon Dioxide (22-30) mmol/L BUN 44 H (7-17) mg/dL Creatinine 1.41 H (0.52-1.04) mg/dL Glucose 144 H (74-99) mg/dL POC Glucose (mg/dL) (70-110) mg/dL Plasma Lactic Acid Jose L (0.7-2.0) mmol/L Calcium (8.4-10.2) mg/dL Phosphorus (2.5-4.5) mg/dL Albumin 2.9 L (3.5-5.0) g/dL Urine Appearance Turbid H (Clear) Urine Protein 1+ H (Negative) Urine Glucose (UA) 4+ H (Negative) Urine Blood Moderate H (Negative) Ur Leukocyte Esterase Large H (Negative) Urine RBC 30 H (0-5) /hpf Urine WBC >182 H (0-5) /hpf Urine WBC Clumps Many H (None) /hpf Urine Bacteria Many H (None) /hpf Urine Mucus Rare H (None) /hpf 10/10/24 10/11/24 10/11/24 Range/Units 22:23 02:55 02:55 WBC 21.5 H (3.8-10.6) k/uL Hgb 9.2 L (11.4-16.0) gm/dL Hct 29.3 L (34.0-46.0) % MCV 74.8 L (80.0-100.0) fL MCH 23.4 L (25.0-35.0) pg RDW 18.6 H (11.5-15.5) % Neutrophils # 19.8 H (1.3-7.7) k/uL Lymphocytes # 0.9 L (1.0-4.8) k/uL Sodium (137-145) mmol/L Carbon Dioxide 21 L (22-30) mmol/L BUN 42 H (7-17) mg/dL Creatinine 1.48 H (0.52-1.04) mg/dL Glucose 151 H (74-99) mg/dL POC Glucose (mg/dL) (70-110) mg/dL Plasma Lactic Acid Jose L 2.2 H* (0.7-2.0) mmol/L Calcium 8.0 L (8.4-10.2) mg/dL Phosphorus 4.7 H (2.5-4.5) mg/dL Albumin 2.5 L (3.5-5.0) g/dL Urine Appearance (Clear) Urine Protein (Negative) Urine Glucose (UA) (Negative) Urine Blood (Negative) Ur Leukocyte Esterase (Negative) Urine RBC (0-5) /hpf Urine WBC (0-5) /hpf Urine WBC Clumps (None) /hpf Urine Bacteria (None) /hpf Urine Mucus (None) /hpf 10/11/24 10/11/24 Range/Units 07:39 12:41 WBC (3.8-10.6) k/uL Hgb (11.4-16.0) gm/dL Hct (34.0-46.0) % MCV (80.0-100.0) fL MCH (25.0-35.0) pg RDW (11.5-15.5) % Neutrophils # (1.3-7.7) k/uL Lymphocytes # (1.0-4.8) k/uL Sodium (137-145) mmol/L Carbon Dioxide (22-30) mmol/L BUN (7-17) mg/dL Creatinine (0.52-1.04) mg/dL Glucose (74-99) mg/dL POC Glucose (mg/dL) 161 H 159 H (70-110) mg/dL Plasma Lactic Acid Jose L (0.7-2.0) mmol/L Calcium (8.4-10.2) mg/dL Phosphorus (2.5-4.5) mg/dL Albumin (3.5-5.0) g/dL Urine Appearance (Clear) Urine Protein (Negative) Urine Glucose (UA) (Negative) Urine Blood (Negative) Ur Leukocyte Esterase (Negative) Urine RBC (0-5) /hpf Urine WBC (0-5) /hpf Urine WBC Clumps (None) /hpf Urine Bacteria (None) /hpf Urine Mucus (None) /hpf Assessment and Plan (1) Sepsis Current Visit: Yes Status: Acute Code(s): A41.9 - SEPSIS, UNSPECIFIED ORGANISM SNOMED Code(s): 41697910 (2) UTI (urinary tract infection) Current Visit: Yes Status: Acute Code(s): N39.0 - URINARY TRACT INFECTION, SITE NOT SPECIFIED SNOMED Code(s): 54615341 (3) Leukocytosis Current Visit: No Status: Acute Code(s): D72.829 - ELEVATED WHITE BLOOD CELL COUNT, UNSPECIFIED SNOMED Code(s): 850389003 Plan: 1patient presented to hospital with sepsis in this patient who did have a elevated white count tachycardia, elevated lactic acid meeting currently for SIRS source is urinary in this patient who did have significantly positive UA recording during Streeter catheter risk factor for recurrent UTIs. With the last urine culture positive for Pseudomonas aeruginosa 2-patient has been appropriately started on cefepime while waiting for the culture to finalize We will follow on clinical condition and cultures to further adjust medication if needed Thank you for this consultation we will follow the patient along with you Dictation was produced using [employer] dictation software. please excuse any gra mmatical, word or spelling errors. Time with Patient: Greater than 30
[2024-10-12 09:08] LABS: BUN/Creat Ratio 24.53 Ratio (12.00-20.00); Blood Urea Nitrogen 41.7 mg/dL (9.0-27.0); Calcium 7.8 mg/dL (8.7-10.3); Carbon Dioxide 18.9 mmol/L (21.6-31.8); Chloride 101 mmol/L (96-109); Glucose 188 mg/dL (70-110); Potassium 3.5 mmol/L (3.5-5.5); Sodium 132 mmol/L (135-145)
[2024-10-12 10:24] LABS: Basophils # (A) 0.02 X 10*3/uL (0.00-0.10); Basophils % (A) 0.2 %; Eosinophils # (A) 0.09 X 10*3/uL (0.04-0.35); Eosinophils % (A) 0.9 %; HCT 27.7 % (37.2-46.3); HGB 8.2 g/dL (12.0-15.0); Lymphocytes # (A) 0.87 X 10*3/uL (0.90-5.00); Lymphocytes % (A) 8.4 %; MCH 22.7 pg (27.0-32.0); MCHC 29.6 g/dL (32.0-37.0); MCV 76.7 FL (80.0-97.0); Mean Platelet Volume 9.6 FL (9.5-12.2); Monocytes # (A) 0.82 X 10*3/uL (0.20-1.00); Monocytes % (A) 7.9 %; NRBC Per 100 WBC 0 X 10*3/uL (0.00-0.01); Neutrophils # (A) 8.52 X 10*3/uL (1.80-7.70); Neutrophils % (A) 82.3 %; Platelet Count 336 X 10*3/uL (140-440); RBC 3.61 X 10*6/uL (4.10-5.20); RDW 19.4 % (11.5-14.5); WBC 10.35 X 10*3/uL (4.50-10.00)
[2024-10-12 12:38] LABS: Glucose,Whole Blood 240 mg/dL (70-110)
[2024-10-12 17:56] LABS: Glucose,Whole Blood 232 mg/dL (70-110)
[2024-10-12 20:07] LABS: Glucose,Whole Blood 279 mg/dL (70-110)
[2024-10-12] MEDS: INSULIN DETEMIR (LEVEMIR) 100 UNIT/ML SYR SQ SCH (22:29)
[2024-10-12] MEDS: ACETAMINOPHEN TAB 325 MG TAB PO PRN (22:54)
--- NOTE | 2024-10-12 23:01 | P.PN ---
Subjective Progress Note Date: 10/12/24 Principal diagnosis: Reason for follow-up is catheter associated UTI Patient is 84-year-old female with a past medical history significant for diabetes mellitus hypertension osteoarthritis atrial fibrillation presenting to the hospital for the local fdc with concern for fever and mental status changes, patient did have a elevated white count positive UA concerning for symptomatic catheter assisted UTI. On today's evaluation that is 10/12/2024, the patient continues to be afebrile, the patient is on room air and breathing comfortably, the Pt denies having any chest pain has been complaining of some cough but not bringing up any sputum no vomiting or diarrhea has been reported. The patient white count normalized to 10.35 creatinine is 1.7 cultures are pending Objective - Vital Signs Vital signs: Vital Signs Temp 98.4 F 10/12/24 12:56 Pulse 87 10/12/24 12:56 Resp 17 10/12/24 12:56 BP 108/61 10/12/24 12:56 Pulse Ox 97 10/12/24 12:56 FiO2 Intake & Output 10/11/24 10/12/24 10/12/24 18:59 06:59 18:59 Intake Total 1620 Output Total 850 600 Balance 770 -600 Weight 77.111 kg Intake: Oral 1620 Output: Urine 850 600 Other: Voiding Method Incontinent Incontinent Incontinent Indwelling Catheter Indwelling Catheter Indwelling Catheter # Bowel Movements 1 - Exam GENERAL DESCRIPTION: An elderly female lying in bed in no distress RESPIRATORY SYSTEM: Unlabored breathing , decreased breath sounds at bases HEART: S1 S2 regular rate and rhythm , ABDOMEN: Soft , no tenderness EXTREMITIES: No edema feet - Labs CBC & Chem 7: 10/12/24 05:46 10/12/24 05:45 Labs: Abnormal Lab Results - Last 24 Hours (Table) 10/11/24 10/11/24 10/12/24 Range/Units 17:20 20:20 05:45 WBC (4.50-10.00) X 10*3/uL RBC (4.10-5.20) X 10*6/uL Hgb (12.0-15.0) g/dL Hct (37.2-46.3) % MCV (80.0-97.0) FL MCH (27.0-32.0) pg MCHC (32.0-37.0) g/dL RDW (11.5-14.5) % Neutrophils # (1.80-7.70) X 10*3/uL Lymphocytes # (0.90-5.00) X 10*3/uL Sodium 132 L (135-145) mmol/L Carbon Dioxide 18.9 L (21.6-31.8) mmol/L Anion Gap 12.10 H (4.00-12.00) mmol/L BUN 41.7 H (9.0-27.0) mg/dL Creatinine 1.7 H (0.6-1.5) mg/dL Est GFR (CKD-EPI) 30 L (>=60) BUN/Creatinine Ratio 24.53 H (12.00-20.00) Ratio Glucose 188 H (70-110) mg/dL POC Glucose (mg/dL) 221 H 259 H (70-110) mg/dL Hemoglobin A1c (<=6.0) % Calcium 7.8 L (8.7-10.3) mg/dL 10/12/24 10/12/24 10/12/24 Range/Units 05:46 05:46 07:26 WBC 10.35 H (4.50-10.00) X 10*3/uL RBC 3.61 L (4.10-5.20) X 10*6/uL Hgb 8.2 L (12.0-15.0) g/dL Hct 27.7 L (37.2-46.3) % MCV 76.7 L (80.0-97.0) FL MCH 22.7 L (27.0-32.0) pg MCHC 29.6 L (32.0-37.0) g/dL RDW 19.4 H (11.5-14.5) % Neutrophils # 8.52 H (1.80-7.70) X 10*3/uL Lymphocytes # 0.87 L (0.90-5.00) X 10*3/uL Sodium (135-145) mmol/L Carbon Dioxide (21.6-31.8) mmol/L Anion Gap (4.00-12.00) mmol/L BUN (9.0-27.0) mg/dL Creatinine (0.6-1.5) mg/dL Est GFR (CKD-EPI) (>=60) BUN/Creatinine Ratio (12.00-20.00) Ratio Glucose (70-110) mg/dL POC Glucose (mg/dL) 162 H (70-110) mg/dL Hemoglobin A1c 6.9 H (<=6.0) % Calcium (8.7-10.3) mg/dL 10/12/24 Range/Units 12:29 WBC (4.50-10.00) X 10*3/uL RBC (4.10-5.20) X 10*6/uL Hgb (12.0-15.0) g/dL Hct (37.2-46.3) % MCV (80.0-97.0) FL MCH (27.0-32.0) pg MCHC (32.0-37.0) g/dL RDW (11.5-14.5) % Neutrophils # (1.80-7.70) X 10*3/uL Lymphocytes # (0.90-5.00) X 10*3/uL Sodium (135-145) mmol/L Carbon Dioxide (21.6-31.8) mmol/L Anion Gap (4.00-12.00) mmol/L BUN (9.0-27.0) mg/dL Creatinine (0.6-1.5) mg/dL Est GFR (CKD-EPI) (>=60) BUN/Creatinine Ratio (12.00-20.00) Ratio Glucose (70-110) mg/dL POC Glucose (mg/dL) 240 H (70-110) mg/dL Hemoglobin A1c (<=6.0) % Calcium (8.7-10.3) mg/dL Microbiology - Last 24 Hours (Table) 10/10/24 22:23 Blood Culture - Preliminary Blood Assessment and Plan (1) Sepsis Current Visit: Yes Status: Acute Code(s): A41.9 - SEPSIS, UNSPECIFIED ORGANISM SNOMED Code(s): 46447865 (2) UTI (urinary tract infection) Current Visit: Yes Status: Acute Code(s): N39.0 - URINARY TRACT INFECTION, SITE NOT SPECIFIED SNOMED Code(s): 48329088 (3) Leukocytosis Current Visit: No Status: Acute Code(s): D72.829 - ELEVATED WHITE BLOOD CELL COUNT, UNSPECIFIED SNOMED Code(s): 935679118 Plan: 1patient presented to hospital with sepsis in this patient who did have a elevated white count tachycardia, elevated lactic acid meeting currently for SIRS source is urinary in this patient who did have significantly positive UA recording during Streeter catheter risk factor for recurrent UTIs. With the last urine culture positive for Pseudomonas aeruginosa 2-patient white count has normalized, currently being treated cefepime while waiting for the culture to finalize Dictation was produced using [employer] dictation software. please excuse any grammatical, word or spelling errors. Time with Patient: Less than 30
--- NOTE | 2024-10-13 05:03 | P.PN ---
Subjective Progress Note Date: 10/12/24 This is a pleasant 84-year-old female with medical history significant for atrial fibrillation, diabetes mellitus, hypertension, permanent PEG tube placement. Patient comes into the hospital from the residential with concern for fever and altered mentation. While in the ER patient was found to have a bnormal urine with a white blood cell count of 24.7. Noted that patient does have a chronic indwelling Ramesh catheter and states that the residential changed out on . She has a sodium level 137 and a BUN of 44 creatinine of 1.41. Her lactic acid is 2.2. She is admitted with concern for urinary tract infection and sepsis. Chest x-ray is read as vascular congestion however upon review does not appear to be congestive [place] [address]. Patient received fluid bolus and was started on normal saline at 130 mL/h. Is not appear volume overloaded at this time. She was started empirically on IV ceftriaxone urine culture and blood cultures are currently pending at this time. Of note the patient was in the hospital most recently in July 2024 where she underwent PEG tube replacement for a dislodged PEG tube. At that time a urinalysis was done showing Pseudomonas pansensitive. ID will be consulted for further evaluation recommendations. Patient is not complaining of any chest pain or shortness of breath at this time and she has been afebrile. She is currently awake alert and oriented. 10/12/2024 Patient is seen and evaluated in follow-up today currently maintained on IV cefepime with infectious disease following. Urine culture was obtained and pending at this time and awaiting for finalized cultures to determine discharge antibiotics. Patient does have a PEG tube with tube feedings and also noted to be eating on exam today. Per nursing staff patient does eat as well. Patient reports not much of an appetite and barely ate anything from her breakfast tray. Recommend monitoring PEG tube for residuals closely and continue with aspiration precautions. Patient is afebrile and white count has improved. Sodium mildly low at 132 and creatinine is increased at 1.7 and patient takes Farxiga, will discontinue for now and follow-up with repeat labs. Patient does reside at [facility] and will be returning there on discharge. Will follow-up on repeat labs in the a.m. Review of systems: Constitutional: No reports of fatigue, fever, or chills Cardiovascular: No reports of chest pain or palpitations Respiratory: No reports of shortness of breath or cough GI: No reports of nausea, vomiting, or diarrhea, reports not much of an appetite : No reports of dysuria or retention Neurovascular: reports of generalized weakness All medications have been reviewed PHYSICAL EXAMINATION: GENERAL: The patient is alert and oriented x3, not in any acute distress. Well developed, Elderly appearing, obese HEENT: Pupils are round and equally reacting to light. EOMI. No scleral icterus. No conjunctival pallor. Normocephalic, atraumatic. No pharyngeal erythema. No thyromegaly. CARDIOVASCULAR: S1 and S2 present. No murmurs, rubs, or gallops. PULMONARY: Chest is clear to auscultation, no wheezing or crackles. ABDOMEN: Soft, nontender, nondistended, normoactive bowel sounds. No palpable organomegaly. Peg tube in place site does not look infected. Chronic ramesh. MUSCULOSKELETAL: No joint swelling or deformity. EXTREMITIES: No cyanosis, clubbing, mild pedal edema. NEUROLOGICAL: Gross neurological examination did not reveal any focal deficits. Diffuse weakness SKIN: No rashes. 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 Currently awaiting urine culture results. Blood cultures thus far negative Dietary on consult for PEG tube feedings Strict aspiration precautions with head of bed up 30-45% at all times Resume anticoagulation Fluids to KVO Check procalcitonin level Repeat BMP and CBC in the AM as white count is improved at 10 although kidney functions including creatinine are slightly worse at 1.7. Patient does have chronic kidney disease Patient resides at [facility] and will be returning there on discharge with social work following. The impression and plan of care has been dictated by Ivy Araya, Nurse Practitioner as directed. Dr. Nitin MD I have performed a history and physical examination and medical decision making of this patient, discussed the same with the dictator, and agree with the dictators assessment and plan as written, documented as a scribe. Based on total visit time, I have performed more than 50% of this visit. Objective - Vital Signs Vital signs: Vital Signs Temp 98.8 F 10/12/24 07:47 Pulse 74 10/12/24 07:47 Resp 15 10/12/24 07:47 BP 129/69 10/12/24 07:47 Pulse Ox 97 10/12/24 07:47 FiO2 Intake & Output 10/11/24 10/12/24 10/12/24 18:59 06:59 18:59 Intake Total 1620 Output Total 850 600 Balance 770 -600 Weight 77.111 kg Intake: Oral 1620 Output: Urine 850 600 Other: Voiding Method Incontinent Incontinent Incontinent Indwelling Catheter Indwelling Catheter Indwelling Catheter # Bowel Movements 1 - Labs CBC & Chem 7: 10/12/24 05:46 10/12/24 05:45 Labs: Abnormal Lab Results - Last 24 Hours (Table) 10/11/24 10/11/24 10/11/24 Range/Units 02:55 12:41 17:20 Sodium (135-145) mmol/L Carbon Dioxide (21.6-31.8) mmol/L Anion Gap (4.00-12.00) mmol/L BUN (9.0-27.0) mg/dL Creatinine (0.6-1.5) mg/dL Est GFR (CKD-EPI) (>=60) BUN/Creatinine Ratio (12.00-20.00) Ratio Glucose (70-110) mg/dL POC Glucose (mg/dL) 159 H 221 H (70-110) mg/dL Hemoglobin A1c (<=6.0) % Calcium (8.7-10.3) mg/dL Procalcitonin 3.66 H (0.02-0.50) ng/mL 10/11/24 10/12/24 10/12/24 Range/Units 20:20 05:45 05:46 Sodium 132 L (135-145) mmol/L Carbon Dioxide 18.9 L (21.6-31.8) mmol/L Anion Gap 12.10 H (4.00-12.00) mmol/L BUN 41.7 H (9.0-27.0) mg/dL Creatinine 1.7 H (0.6-1.5) mg/dL Est GFR (CKD-EPI) 30 L (>=60) BUN/Creatinine Ratio 24.53 H (12.00-20.00) Ratio Glucose 188 H (70-110) mg/dL POC Glucose (mg/dL) 259 H (70-110) mg/dL Hemoglobin A1c 6.9 H (<=6.0) % Calcium 7.8 L (8.7-10.3) mg/dL Procalcitonin (0.02-0.50) ng/mL 10/12/24 Range/Units 07:26 Sodium (135-145) mmol/L Carbon Dioxide (21.6-31.8) mmol/L Anion Gap (4.00-12.00) mmol/L BUN (9.0-27.0) mg/dL Creatinine (0.6-1.5) mg/dL Est GFR (CKD-EPI) (>=60) BUN/Creatinine Ratio (12.00-20.00) Ratio Glucose (70-110) mg/dL POC Glucose (mg/dL) 162 H (70-110) mg/dL Hemoglobin A1c (<=6.0) % Calcium (8.7-10.3) mg/dL Procalcitonin (0.02-0.50) ng/mL Microbiology - Last 24 Hours (Table) 10/10/24 22:23 Blood Culture - Preliminary Blood
[2024-10-13 07:13] LABS: Glucose,Whole Blood 83 mg/dL (70-110)
[2024-10-13 09:21] LABS: Magnesium 2.1 mg/dL (1.5-2.4)
[2024-10-13 09:29] LABS: Blood Urea Nitrogen 42.9 mg/dL (9.0-27.0); Calcium 7.8 mg/dL (8.7-10.3); Carbon Dioxide 21.7 mmol/L (21.6-31.8); Chloride 108 mmol/L (96-109); Glucose 93 mg/dL (70-110); Potassium 3.2 mmol/L (3.5-5.5); Sodium 139 mmol/L (135-145)
[2024-10-13 09:57] LABS: Basophils # (A) 0.03 X 10*3/uL (0.00-0.10); Basophils % (A) 0.5 %; Eosinophils # (A) 0.14 X 10*3/uL (0.04-0.35); Eosinophils % (A) 2.2 %; HCT 25.3 % (37.2-46.3); HGB 7.5 g/dL (12.0-15.0); Lymphocytes % (A) 12.6 %; MCH 22.5 pg (27.0-32.0); MCHC 29.6 g/dL (32.0-37.0); MCV 75.7 FL (80.0-97.0); Mean Platelet Volume 9.2 FL (9.5-12.2); Monocytes # (A) 0.53 X 10*3/uL (0.20-1.00); Monocytes % (A) 8.4 %; NRBC Per 100 WBC 0 X 10*3/uL (0.00-0.01); Neutrophils # (A) 4.81 X 10*3/uL (1.80-7.70); Neutrophils % (A) 75.8 %; Platelet Count 319 X 10*3/uL (140-440); RBC 3.34 X 10*6/uL (4.10-5.20); RDW 19.1 % (11.5-14.5); WBC 6.34 X 10*3/uL (4.50-10.00)
[2024-10-13] MEDS: FUROSEMIDE 20 MG TAB PO SCH (10:53)
[2024-10-13 12:12] LABS: Glucose,Whole Blood 117 mg/dL (70-110)
[2024-10-13] MEDS: POTASSIUM BICARBONATE/CIT AC 20 MEQ TABLET.EFF PEG/G-TUBE SCH (12:37)
--- NOTE | 2024-10-13 16:48 | P.PN ---
Subjective Progress Note Date: 10/13/24 This is a pleasant 84-year-old female with medical history significant for atrial fibrillation, diabetes mellitus, hypertension, permanent PEG tube placement. [facility] concern for fever and altered mentation. While in the ER patient was found to have abno rmal urine with a white blood cell count of 24.7. Noted that patient does have a chronic indwelling Ramesh catheter and states that the jail changed out on . She has a sodium level 137 and a BUN of 44 creatinine of 1.41. Her lactic acid is 2.2. She is admitted with concern for urinary tract infection and sepsis. Chest x-ray is read as vascular congestion however upon review does not appear to be congestive [place] [address]. Patient received fluid bolus and was started on normal saline at 130 mL/h. Is not appear volume overloaded at this time. She was started empirically on IV ceftriaxone urine culture and blood cultures are currently pending at this time. Of note the patient was in the hospital most recently in July 2024 where she underwent PEG tube replacement for a dislodged PEG tube. At that time a urinalysis was done showing Pseudomonas pansensitive. ID will be consulted for further evaluation recommendations. Patient is not complaining of any chest pain or shortness of breath at this time and she has been afebrile. She is currently awake alert and oriented. 10/12/2024 Patient is seen and evaluated in follow-up today currently maintained on IV cefepime with infectious disease following. Urine culture was obtained and pending at this time and awaiting for finalized cultures to determine discharge antibiotics. Patient does have a PEG tube with tube feedings and also noted to be eating on exam today. Per nursing staff patient does eat as well. Patient reports not much of an appetite and barely ate anything from her breakfast tray. Recommend monitoring PEG tube for residuals closely and continue with aspiration precautions. Patient is afebrile and white count has improved. Sodium mildly low at 132 and creatinine is increased at 1.7 and patient takes Farxiga, will discontinue for now and follow-up with repeat labs. Patient does reside at [facility] and will be returning there on discharge. Will follow-up on repeat labs in the a.m. 10/13/2024 Patient is evaluated today in follow up on the medical floor. Patient is currently pending urine culture. Remains on IV cefepime with ID following rj carlson. Renal function improved with BUN 42.9, creatinine 1.5. Potassium 3.2, white blood cell count 6.34, hgb 7.5. Procalcitonin remains elevated at 3.44. Patient remains on regular diet for pleasure feeds and PEG tube feeds were held at the time of assessment. Patients bowels are moving. Review of systems: Constitutional: No reports of fatigue, fever, or chills Cardiovascular: No reports of chest pain or palpitations Respiratory: No reports of shortness of breath or cough GI: No reports of nausea, vomiting, or diarrhea, reports not much of an appetite : No reports of dysuria or retention Neurovascular: reports of generalized weakness All medications have been reviewed PHYSICAL EXAMINATION: GENERAL: The patient is alert and oriented x3, not in any acute distress. Well developed, Elderly appearing, obese HEENT: Pupils are round and equally reacting to light. EOMI. No scleral icterus. No conjunctival pallor. Normocephalic, atraumatic. No pharyngeal erythema. No thyromegaly. CARDIOVASCULAR: S1 and S2 present. No murmurs, rubs, or gallops. PULMONARY: Chest is clear to auscultation, no wheezing or crackles. ABDOMEN: Soft, nontender, nondistended, normoactive bowel sounds. No palpable organomegaly. Peg tube in place site does not look infected. Chronic ramesh. MUSCULOSKELETAL: No joint swelling or deformity. EXTREMITIES: No cyanosis, clubbing, mild pedal edema. NEUROLOGICAL: Gross neurological examination did not reveal any focal deficits. Diffuse weakness SKIN: No rashes. 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 Currently awaiting urine culture results. Blood cultures thus far negative Dietary on consult for PEG tube feedings Strict aspiration precautions with head of bed up 30-45% at all times Resume anticoagulation Fluids to KVO Check procalcitonin level Repeat BMP and CBC in the AM, Patient does have chronic kidney disease Farxiga on hold and renal function improved. Patient resides at [facility] and will be returning there on discharge with social work following. Anticipate return to [facility] on Tuesday. The impression and plan of care has been dictated by Ivy Araya, Nurse Practitioner as directed. Dr. Nitin MD I have performed a history and physical examination and medical decision making of this patient, discussed the same with the dictator, and agree with the dictators assessment and plan as written, documented as a scribe. Based on total visit time, I have performed more than 50% of this visit. Objective - Vital Signs Vital signs: Vital Signs Temp 97.8 F 10/13/24 13:22 Pulse 91 10/13/24 13:22 Resp 16 10/13/24 13:22 BP 119/73 10/13/24 13:22 Pulse Ox 100 10/13/24 13:22 FiO2 Intake & Output 10/12/24 10/13/24 10/13/24 18:59 06:59 18:59 Intake Total 1500 200 Output Total 1600 2000 Balance -100 -1800 Weight 66.5 kg Intake: Oral 1500 200 Output: Urine 1600 2000 Other: Voiding Method Incontinent Incontinent Incontinent Indwelling Catheter Indwelling Catheter Indwelling Catheter # Bowel Movements 2 3 - Labs CBC & Chem 7: 10/13/24 03:38 10/13/24 03:38 Labs: Abnormal Lab Results - Last 24 Hours (Table) 10/12/24 10/12/24 10/13/24 Range/Units 17:53 20:04 03:38 RBC 3.34 L (4.10-5.20) X 10*6/uL Hgb 7.5 L (12.0-15.0) g/dL Hct 25.3 L (37.2-46.3) % MCV 75.7 L (80.0-97.0) FL MCH 22.5 L (27.0-32.0) pg MCHC 29.6 L (32.0-37.0) g/dL RDW 19.1 H (11.5-14.5) % MPV 9.2 L (9.5-12.2) FL Lymphocytes # 0.80 L (0.90-5.00) X 10*3/uL Potassium (3.5-5.5) mmol/L BUN (9.0-27.0) mg/dL Est GFR (CKD-EPI) (>=60) BUN/Creatinine Ratio (12.00-20.00) Ratio POC Glucose (mg/dL) 232 H 279 H (70-110) mg/dL Calcium (8.7-10.3) mg/dL Procalcitonin (0.02-0.50) ng/mL 10/13/24 10/13/24 10/13/24 Range/Units 03:38 03:38 12:11 RBC (4.10-5.20) X 10*6/uL Hgb (12.0-15.0) g/dL Hct (37.2-46.3) % MCV (80.0-97.0) FL MCH (27.0-32.0) pg MCHC (32.0-37.0) g/dL RDW (11.5-14.5) % MPV (9.5-12.2) FL Lymphocytes # (0.90-5.00) X 10*3/uL Potassium 3.2 L (3.5-5.5) mmol/L BUN 42.9 H (9.0-27.0) mg/dL Est GFR (CKD-EPI) 35 L (>=60) BUN/Creatinine Ratio 28.60 H (12.00-20.00) Ratio POC Glucose (mg/dL) 117 H (70-110) mg/dL Calcium 7.8 L (8.7-10.3) mg/dL Procalcitonin 3.44 H (0.02-0.50) ng/mL Microbiology - Last 24 Hours (Table) 10/11/24 17:45 Urine Culture - Final Urine,Catheterized 10/10/24 22:23 Blood Culture - Preliminary Blood Assessment and Plan Time with Patient: Less than 30
[2024-10-13 20:13] LABS: Glucose,Whole Blood 205 mg/dL (70-110)
--- NOTE | 2024-10-13 22:08 | P.PN ---
Subjective Progress Note Date: 10/13/24 Principal diagnosis: Reason for follow-up is catheter associated UTI Patient is 84-year-old female with a past medical history significant for diabetes mellitus hypertension osteoarthritis atrial fibrillation presenting to the hospital for the local usp with concern for fever and mental status changes, patient did have a elevated white count positive UA concerning for symptomatic catheter assisted UTI. On today's evaluation that is 10/13/2024, patient did not have any fever and denies any chills, patient is breathing comfortably on room air, patient with no chest pain or cough patient did not have any abdominal pain nausea vomiting was complaining of some diarrhea however not confirmed by the nursing staff. Patient white count 6.34, creatinine is 1.5 urine cultures came back negative blood culture negative Objective - Vital Signs Vital signs: Vital Signs Temp 97.8 F 10/13/24 13:22 Pulse 91 10/13/24 13:22 Resp 16 10/13/24 13:22 BP 119/73 10/13/24 13:22 Pulse Ox 100 10/13/24 13:22 FiO2 Intake & Output 10/12/24 10/13/24 10/13/24 18:59 06:59 18:59 Intake Total 1500 200 Output Total 1600 2000 Balance -100 -1800 Weight 66.5 kg Intake: Oral 1500 200 Output: Urine 1600 2000 Other: Voiding Method Incontinent Incontinent Incontinent Indwelling Catheter Indwelling Catheter Indwelling Catheter # Bowel Movements 2 3 - Exam GENERAL DESCRIPTION: An elderly female lying in bed in no distress RESPIRATORY SYSTEM: Unlabored breathing , decreased breath sounds at bases HEART: S1 S2 regular rate and rhythm , ABDOMEN: Soft , no tenderness EXTREMITIES: No edema feet - Labs CBC & Chem 7: 10/13/24 03:38 10/13/24 03:38 Labs: Abnormal Lab Results - Last 24 Hours (Table) 10/12/24 10/12/24 10/13/24 Range/Units 17:53 20:04 03:38 RBC 3.34 L (4.10-5.20) X 10*6/uL Hgb 7.5 L (12.0-15.0) g/dL Hct 25.3 L (37.2-46.3) % MCV 75.7 L (80.0-97.0) FL MCH 22.5 L (27.0-32.0) pg MCHC 29.6 L (32.0-37.0) g/dL RDW 19.1 H (11.5-14.5) % MPV 9.2 L (9.5-12.2) FL Lymphocytes # 0.80 L (0.90-5.00) X 10*3/uL Potassium (3.5-5.5) mmol/L BUN (9.0-27.0) mg/dL Est GFR (CKD-EPI) (>=60) BUN/Creatinine Ratio (12.00-20.00) Ratio POC Glucose (mg/dL) 232 H 279 H (70-110) mg/dL Calcium (8.7-10.3) mg/dL Procalcitonin (0.02-0.50) ng/mL 10/13/24 10/13/24 10/13/24 Range/Units 03:38 03:38 12:11 RBC (4.10-5.20) X 10*6/uL Hgb (12.0-15.0) g/dL Hct (37.2-46.3) % MCV (80.0-97.0) FL MCH (27.0-32.0) pg MCHC (32.0-37.0) g/dL RDW (11.5-14.5) % MPV (9.5-12.2) FL Lymphocytes # (0.90-5.00) X 10*3/uL Potassium 3.2 L (3.5-5.5) mmol/L BUN 42.9 H (9.0-27.0) mg/dL Est GFR (CKD-EPI) 35 L (>=60) BUN/Creatinine Ratio 28.60 H (12.00-20.00) Ratio POC Glucose (mg/dL) 117 H (70-110) mg/dL Calcium 7.8 L (8.7-10.3) mg/dL Procalcitonin 3.44 H (0.02-0.50) ng/mL Microbiology - Last 24 Hours (Table) 10/11/24 17:45 Urine Culture - Final Urine,Catheterized 10/10/24 22:23 Blood Culture - Preliminary Blood Assessment and Plan (1) Sepsis Current Visit: Yes Status: Acute Code(s): A41.9 - SEPSIS, UNSPECIFIED ORGANISM SNOMED Code(s): 76710838 (2) UTI (urinary tract infection) Current Visit: Yes Status: Acute Code(s): N39.0 - URINARY TRACT INFECTION, SITE NOT SPECIFIED SNOMED Code(s): 96490892 (3) Leukocytosis Current Visit: No Status: Acute Code(s): D72.829 - ELEVATED WHITE BLOOD CELL COUNT, UNSPECIFIED SNOMED Code(s): 989848520 Plan: 1patient presented to hospital with sepsis in this patient who did have a elevated white count tachycardia, elevated lactic acid meeting currently for SIRS source is urinary in this patient who did have significantly positive UA recording during Streeter catheter risk factor for recurrent UTIs. With the last urine culture positive for Pseudomonas aeruginosa 2-patient white count has normalized, urine cultures so far reported negative blood culture negative will repeat UA if normalized will discontinue antibiotic for now continue cefepime Dictation was produced using [employer] dictation software. please excuse any grammatical, word or spelling errors. Time with Patient: Less than 30
[2024-10-13] MEDS: CEFEPIME 1 GM in SODIUM CHLORIDE 0.9% 50 ML IVPB SCH (23:43)
[2024-10-14 02:01] LABS: Appearance,Urine Cloudy (Clear); Bacteria,Urine Many /hpf; Bilirubin,Urine Negative (Negative); Blood,Urine Small (Negative); Budding Yeast,Urine Few /hpf; Color,Urine Colorless; Glucose,Urine (UA) 3+ (Negative); Ketones,Urine Negative (Negative); Leukocyte Esterase,Urine Large (Negative); Mucus,Urine Rare /hpf; Nitrite,Urine Negative (Negative); PH, Urine 6.5 (5.0-8.0); Protein,Urine Trace (Negative); RBC,Urine 29 /hpf (0-5); Specific Gravity,Urine 1.009 (1.001-1.035); Urobilinogen,Urine <2.0 mg/dL (<2.0); WBC,Urine >182 /hpf (0-5)
[2024-10-14 11:32] LABS: Basophils # (A) 0.03 X 10*3/uL (0.00-0.10); Basophils % (A) 0.6 %; Eosinophils % (A) 3.9 %; HCT 27.8 % (37.2-46.3); HGB 8.2 g/dL (12.0-15.0); Lymphocytes # (A) 0.94 X 10*3/uL (0.90-5.00); Lymphocytes % (A) 18.4 %; MCH 22.9 pg (27.0-32.0); MCHC 29.5 g/dL (32.0-37.0); MCV 77.7 FL (80.0-97.0); Mean Platelet Volume 9.7 FL (9.5-12.2); Monocytes # (A) 0.43 X 10*3/uL (0.20-1.00); Monocytes % (A) 8.4 %; NRBC Per 100 WBC 0 X 10*3/uL (0.00-0.01); Neutrophils # (A) 3.48 X 10*3/uL (1.80-7.70); Neutrophils % (A) 68.3 %; Platelet Count 348 X 10*3/uL (140-440); RBC 3.58 X 10*6/uL (4.10-5.20); RDW 19.1 % (11.5-14.5)
[2024-10-14 12:03] LABS: Glucose,Whole Blood 283 mg/dL (70-110)
[2024-10-14 14:16] LABS: BUN/Creat Ratio 25.13 Ratio (12.00-20.00); Blood Urea Nitrogen 37.7 mg/dL (9.0-27.0); Carbon Dioxide 26.6 mmol/L (21.6-31.8); Chloride 103 mmol/L (96-109); Glucose 195 mg/dL (70-110); Potassium 3.9 mmol/L (3.5-5.5); Sodium 137 mmol/L (135-145)
[2024-10-14 14:17] LABS: Calcium 7.9 mg/dL (8.7-10.3)
--- NOTE | 2024-10-14 15:16 | P.PN ---
Subjective Progress Note Date: 10/14/24 Principal diagnosis: Reason for follow-up is catheter associated UTI Patient is 84-year-old female with a past medical history significant for diabetes mellitus hypertension osteoarthritis atrial fibrillation presenting to the hospital for the local longterm with concern for fever and mental status changes, patient did have a elevated white count positive UA concerning for symptomatic catheter assisted UTI. On today's evaluation that is 10/14/2024, Patient is afebrile patient is currently on room air and denies having any shortness of breath, the patient denies any chest pain or cough, the patient denies any nausea vomiting did not have any abdominal pain and no diarrhea. Patient white count 5.10, creatinine 1.5 repeat UA still significantly positive Objective - Vital Signs Vital signs: Vital Signs Temp 98.7 F 10/14/24 12:15 Pulse 70 10/14/24 12:15 Resp 16 10/14/24 12:15 BP 127/58 10/14/24 12:15 Pulse Ox 99 10/14/24 12:15 FiO2 Intake & Output 10/13/24 10/14/24 10/14/24 18:59 06:59 18:59 Intake Total 1740 Output Total 1200 1750 550 Balance -1200 -10 -550 Weight 66 kg Intake: Oral 1740 Output: Urine 1200 1750 550 Other: Voiding Method Incontinent Indwelling Catheter Indwelling Catheter Indwelling Catheter # Voids 2 # Bowel Movements 2 1 - Exam GENERAL DESCRIPTION: An elderly female lying in bed in no distress RESPIRATORY SYSTEM: Unlabored breathing , decreased breath sounds at bases HEART: S1 S2 regular rate and rhythm , ABDOMEN: Soft , no tenderness EXTREMITIES: No edema feet - Labs CBC & Chem 7: 10/14/24 02:23 10/14/24 02:23 Labs: Abnormal Lab Results - Last 24 Hours (Table) 10/13/24 10/13/24 10/14/24 Range/Units 20:11 23:18 02:23 RBC 3.58 L (4.10-5.20) X 10*6/uL Hgb 8.2 L (12.0-15.0) g/dL Hct 27.8 L (37.2-46.3) % MCV 77.7 L (80.0-97.0) FL MCH 22.9 L (27.0-32.0) pg MCHC 29.5 L (32.0-37.0) g/dL RDW 19.1 H (11.5-14.5) % POC Glucose (mg/dL) 205 H (70-110) mg/dL Urine Appearance Cloudy H (Clear) Urine Protein Trace H (Negative) Urine Glucose (UA) 3+ H (Negative) Urine Blood Small H (Negative) Ur Leukocyte Esterase Large H (Negative) Urine RBC 29 H (0-5) /hpf Urine WBC >182 H (0-5) /hpf Urine WBC Clumps Many H (None) /hpf Urine Bacteria Many H (None) /hpf Urine Mucus Rare H (None) /hpf Urine Yeast (Budding) Few H (None) /hpf 10/14/24 Range/Units 11:53 RBC (4.10-5.20) X 10*6/uL Hgb (12.0-15.0) g/dL Hct (37.2-46.3) % MCV (80.0-97.0) FL MCH (27.0-32.0) pg MCHC (32.0-37.0) g/dL RDW (11.5-14.5) % POC Glucose (mg/dL) 283 H (70-110) mg/dL Urine Appearance (Clear) Urine Protein (Negative) Urine Glucose (UA) (Negative) Urine Blood (Negative) Ur Leukocyte Esterase (Negative) Urine RBC (0-5) /hpf Urine WBC (0-5) /hpf Urine WBC Clumps (None) /hpf Urine Bacteria (None) /hpf Urine Mucus (None) /hpf Urine Yeast (Budding) (None) /hpf Microbiology - Last 24 Hours (Table) 10/10/24 22:23 Blood Culture - Preliminary Blood 10/11/24 17:45 Urine Culture - Final Urine,Catheterized Assessment and Plan (1) Sepsis Current Visit: Yes Status: Acute Code(s): A41.9 - SEPSIS, UNSPECIFIED ORGANISM SNOMED Code(s): 79825275 (2) UTI (urinary tract infection) Current Visit: Yes Status: Acute Code(s): N39.0 - URINARY TRACT INFECTION, SITE NOT SPECIFIED SNOMED Code(s): 15554712 (3) Leukocytosis Current Visit: No Status: Acute Code(s): D72.829 - ELEVATED WHITE BLOOD CELL COUNT, UNSPECIFIED SNOMED Code(s): 127750127 Plan: 1patient presented to hospital with sepsis in this patient who did have a elevated white count tachycardia, elevated lactic acid meeting currently for SIRS source is urinary in this patient who did have significantly positive UA recording during Streeter catheter risk factor for recurrent UTIs. With the last urine culture positive for Pseudomonas aeruginosa 2-patient white count has normalized, urine cultures so far reported negative however the patient did have repeat UA was still significantly positive continue cefepime while waiting for repeat culture to finalize Dictation was produced using [employer] dictation software. please excuse any grammatical, word or spelling errors. Time with Patient: Less than 30
[2024-10-14 17:17] LABS: Glucose,Whole Blood 285 mg/dL (70-110)
[2024-10-14 20:16] LABS: Glucose,Whole Blood 220 mg/dL (70-110)
--- NOTE | 2024-10-15 03:59 | P.PN ---
Subjective Progress Note Date: 10/14/24 This is a pleasant 84-year-old female with medical history significant for atrial fibrillation, diabetes mellitus, hypertension, permanent PEG tube placement. Patient comes into the hospital from the long-term with concern for fever and altered mentation. While in the ER patient was found to have a bnormal urine with a white blood cell count of 24.7. Noted that patient does have a chronic indwelling Ramesh catheter and states that the long-term changed out on . She has a sodium level 137 and a BUN of 44 creatinine of 1.41. Her lactic acid is 2.2. She is admitted with concern for urinary tract infection and sepsis. Chest x-ray is read as vascular congestion however upon review does not appear to be congestive [place] [address]. Patient received fluid bolus and was started on normal saline at 130 mL/h. Is not appear volume overloaded at this time. She was started empirically on IV ceftriaxone urine culture and blood cultures are currently pending at this time. Of note the patient was in the hospital most recently in July 2024 where she underwent PEG tube replacement for a dislodged PEG tube. At that time a urinalysis was done showing Pseudomonas pansensitive. ID will be consulted for further evaluation recommendations. Patient is not complaining of any chest pain or shortness of breath at this time and she has been afebrile. She is currently awake alert and oriented. 10/12/2024 Patient is seen and evaluated in follow-up today currently maintained on IV cefepime with infectious disease following. Urine culture was obtained and pending at this time and awaiting for finalized cultures to determine discharge antibiotics. Patient does have a PEG tube with tube feedings and also noted to be eating on exam today. Per nursing staff patient does eat as well. Patient reports not much of an appetite and barely ate anything from her breakfast tray. Recommend monitoring PEG tube for residuals closely and continue with aspiration precautions. Patient is afebrile and white count has improved. Sodium mildly low at 132 and creatinine is increased at 1.7 and patient takes Farxiga, will discontinue for now and follow-up with repeat labs. Patient does reside at [facility] and will be returning there on discharge. Will follow-up on repeat labs in the a.m. 10/13/2024 Patient is evaluated today in follow up on the medical floor. Patient is currently pending urine culture. Remains on IV cefepime with ID following closely. Renal function improved with BUN 42.9, creatinine 1.5. Potassium 3.2, white blood cell count 6.34, hgb 7.5. Procalcitonin remains elevated at 3.44. Patient remains on regular diet for pleasure feeds and PEG tube feeds were held at the time of assessment. Patients bowels are moving. 10/14/2024 Patient is seen in follow-up awaiting urine and awaiting cultures to finalize with infectious disease following. Patient is continued on cefepime and cultures were normal although repeat urinalysis performed continues to show significant leukocyte esterase and repeat culture is pending at this time. Patient does have significant history of recurrent UTIs and chronic indwelling Ramesh catheter and will need to await repeat culture to determine discharge antibiotics. Patient is afebrile with no reports of chest pain or shortness of breath. Continue with aspiration precautions along with bowel regimen. Procalcitonin was elevated. Review of systems: Constitutional: No reports of fatigue, fever, or chills Cardiovascular: No reports of chest pain or palpitations Respiratory: No reports of shortness of breath or cough GI: No reports of nausea, vomiting, or diarrhea, reports not much of an appetite : No reports of dysuria or retention Neurovascular: reports of generalized weakness All medications have been reviewed PHYSICAL EXAMINATION: GENERAL: The patient is alert and oriented x3, not in any acute distress. Well developed, Elderly appearing, obese HEENT: Pupils are round and equally reacting to light. EOMI. No scleral icterus. No conjunctival pallor. Normocephalic, atraumatic. No pharyngeal erythema. No thyromegaly. CARDIOVASCULAR: S1 and S2 present. No murmurs, rubs, or gallops. PULMONARY: Chest is clear to auscultation, no wheezing or crackles. ABDOMEN: Soft, nontender, nondistended, normoactive bowel sounds. No palpable organomegaly. Peg tube in place site does not look infected. Chronic ramesh. MUSCULOSKELETAL: No joint swelling or deformity. EXTREMITIES: No cyanosis, clubbing, mild pedal edema. NEUROLOGICAL: Gross neurological examination did not reveal any focal deficits. Diffuse weakness SKIN: No rashes. 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 Currently awaiting urine culture results. Initial urine culture negative with repeat urinalysis being positive and awaiting repeat cultures. Blood cultures thus far negative Dietary on consult for PEG tube feedings Strict aspiration precautions with head of bed up 30-45% at all times Resume anticoagulation Repeat BMP and CBC in the AM, Patient does have chronic kidney disease Farxiga on hold and renal function improved. Patient resides at [facility] and will be returning there on discharge with social work following. Anticipate return to [facility] once cultures have finalized The impression and plan of care has been dictated by Ivy Araya, Nurse Practitioner as directed. Dr. Nitin MD I have performed a history and physical examination and medical decision making of this patient, discussed the same with the dictator, and agree with the dictators assessment and plan as written, documented as a scribe. Based on total visit time, I have performed more than 50% of this visit. Objective - Vital Signs Vital signs: Vital Signs Temp 97.3 F L 10/14/24 01:29 Pulse 67 10/14/24 01:29 Resp 17 10/14/24 01:29 BP 133/55 10/14/24 01:29 Pulse Ox 100 10/14/24 01:29 FiO2 Intake & Output 10/13/24 10/13/24 10/14/24 06:59 18:59 06:59 Intake Total 200 240 Output Total 1999 1200 1000 Balance -1800 -1200 -760 Weight 66.5 kg 66 kg Intake: Oral 200 240 Output: Urine 1999 1200 1000 Other: Voiding Method Incontinent Incontinent Indwelling Catheter Indwelling Catheter Indwelling Catheter # Voids 2 # Bowel Movements 3 2 1 - Labs CBC & Chem 7: 10/14/24 02:23 10/14/24 02:23 Labs: Abnormal Lab Results - Last 24 Hours (Table) 10/13/24 10/13/24 10/13/24 Range/Units 03:38 03:38 03:38 RBC 3.34 L (4.10-5.20) X 10*6/uL Hgb 7.5 L (12.0-15.0) g/dL Hct 25.3 L (37.2-46.3) % MCV 75.7 L (80.0-97.0) FL MCH 22.5 L (27.0-32.0) pg MCHC 29.6 L (32.0-37.0) g/dL RDW 19.1 H (11.5-14.5) % MPV 9.2 L (9.5-12.2) FL Lymphocytes # 0.80 L (0.90-5.00) X 10*3/uL Potassium 3.2 L (3.5-5.5) mmol/L BUN 42.9 H (9.0-27.0) mg/dL Est GFR (CKD-EPI) 35 L (>=60) BUN/Creatinine Ratio 28.60 H (12.00-20.00) Ratio POC Glucose (mg/dL) (70-110) mg/dL Calcium 7.8 L (8.7-10.3) mg/dL Procalcitonin 3.44 H (0.02-0.50) ng/mL Urine Appearance (Clear) Urine Protein (Negative) Urine Glucose (UA) (Negative) Urine Blood (Negative) Ur Leukocyte Esterase (Negative) Urine RBC (0-5) /hpf Urine WBC (0-5) /hpf Urine WBC Clumps (None) /hpf Urine Bacteria (None) /hpf Urine Mucus (None) /hpf Urine Yeast (Budding) (None) /hpf 10/13/24 10/13/24 10/13/24 Range/Units 12:11 20:11 23:18 RBC (4.10-5.20) X 10*6/uL Hgb (12.0-15.0) g/dL Hct (37.2-46.3) % MCV (80.0-97.0) FL MCH (27.0-32.0) pg MCHC (32.0-37.0) g/dL RDW (11.5-14.5) % MPV (9.5-12.2) FL Lymphocytes # (0.90-5.00) X 10*3/uL Potassium (3.5-5.5) mmol/L BUN (9.0-27.0) mg/dL Est GFR (CKD-EPI) (>=60) BUN/Creatinine Ratio (12.00-20.00) Ratio POC Glucose (mg/dL) 117 H 205 H (70-110) mg/dL Calcium (8.7-10.3) mg/dL Procalcitonin (0.02-0.50) ng/mL Urine Appearance Cloudy H (Clear) Urine Protein Trace H (Negative) Urine Glucose (UA) 3+ H (Negative) Urine Blood Small H (Negative) Ur Leukocyte Esterase Large H (Negative) Urine RBC 29 H (0-5) /hpf Urine WBC >182 H (0-5) /hpf Urine WBC Clumps Many H (None) /hpf Urine Bacteria Many H (None) /hpf Urine Mucus Rare H (None) /hpf Urine Yeast (Budding) Few H (None) /hpf Microbiology - Last 24 Hours (Table) 10/10/24 22:23 Blood Culture - Preliminary Blood 10/11/24 17:45 Urine Culture - Final Urine,Catheterized
[2024-10-15 07:09] LABS: Glucose,Whole Blood 94 mg/dL (70-110)
[2024-10-15 08:35] LABS: Basophils # (A) 0.06 X 10*3/uL (0.00-0.10); Eosinophils # (A) 0.26 X 10*3/uL (0.04-0.35); Eosinophils % (A) 4.2 %; HCT 27.9 % (37.2-46.3); HGB 8.3 g/dL (12.0-15.0); Lymphocytes # (A) 1.21 X 10*3/uL (0.90-5.00); Lymphocytes % (A) 19.8 %; MCH 22.7 pg (27.0-32.0); MCHC 29.7 g/dL (32.0-37.0); MCV 76.4 FL (80.0-97.0); Mean Platelet Volume 9.2 FL (9.5-12.2); Monocytes # (A) 0.59 X 10*3/uL (0.20-1.00); Monocytes % (A) 9.6 %; NRBC Per 100 WBC 0 X 10*3/uL (0.00-0.01); Neutrophils # (A) 3.97 X 10*3/uL (1.80-7.70); Neutrophils % (A) 64.9 %; Platelet Count 349 X 10*3/uL (140-440); RBC 3.65 X 10*6/uL (4.10-5.20); WBC 6.12 X 10*3/uL (4.50-10.00)
[2024-10-15 09:09] LABS: BUN/Creat Ratio 25.79 Ratio (12.00-20.00); Blood Urea Nitrogen 36.1 mg/dL (9.0-27.0); Carbon Dioxide 29.1 mmol/L (21.6-31.8); Chloride 102 mmol/L (96-109); Glucose 106 mg/dL (70-110); Potassium 3.7 mmol/L (3.5-5.5); Sodium 139 mmol/L (135-145)
--- NOTE | 2024-10-15 11:37 | P.PN ---
Subjective Progress Note Date: 10/15/24 Principal diagnosis: Reason for follow-up is catheter associated UTI Patient is 84-year-old female with a past medical history significant for diabetes mellitus hypertension osteoarthritis atrial fibrillation presenting to the [facility] for the local [facility] with concern for fever and mental status changes, patient did have a elevated white count positive UA concerning for symptomatic catheter assisted UTI. On today's evaluation that is 10/15/2023, patient has been afebrile, patient is breathing comfortably and is currently on room air, patient denies having any significant cough no chest pain, patient denies nausea vomiting or diarrhea and no abdominal pain. Patient white count 6.12, creatinine is 1.4 repeat urine culture currently pending Objective - Vital Signs Vital signs: Vital Signs Temp 97.6 F 10/15/24 07:06 Pulse 76 10/15/24 07:06 Resp 18 10/15/24 07:06 BP 128/77 10/15/24 07:06 Pulse Ox 99 10/15/24 07:06 FiO2 Intake & Output 10/14/24 10/15/24 10/15/24 18:59 06:59 18:59 Intake Total 540 Output Total 1450 1900 Balance -1450 -1360 Weight 64 kg Intake: Oral 540 Output: Urine 1450 1900 Other: Voiding Method Indwelling Catheter Indwelling Catheter # Bowel Movements 1 - Exam GENERAL DESCRIPTION: An elderly female lying in bed in no distress RESPIRATORY SYSTEM: Unlabored breathing , decreased breath sounds at bases HEART: S1 S2 regular rate and rhythm , ABDOMEN: Soft , no tenderness EXTREMITIES: No edema feet - Labs CBC & Chem 7: 10/15/24 04:02 10/15/24 04:02 Labs: Abnormal Lab Results - Last 24 Hours (Table) 10/14/24 10/14/24 10/14/24 Range/Units 02:23 11:53 17:15 RBC (4.10-5.20) X 10*6/uL Hgb (12.0-15.0) g/dL Hct (37.2-46.3) % MCV (80.0-97.0) FL MCH (27.0-32.0) pg MCHC (32.0-37.0) g/dL RDW (11.5-14.5) % MPV (9.5-12.2) FL BUN 37.7 H (9.0-27.0) mg/dL Est GFR (CKD-EPI) 35 L (>=60) BUN/Creatinine Ratio 25.13 H (12.00-20.00) Ratio Glucose 195 H (70-110) mg/dL POC Glucose (mg/dL) 283 H 285 H (70-110) mg/dL Calcium 7.9 L (8.7-10.3) mg/dL 10/14/24 10/15/24 10/15/24 Range/Units 20:13 04:02 04:02 RBC 3.65 L (4.10-5.20) X 10*6/uL Hgb 8.3 L (12.0-15.0) g/dL Hct 27.9 L (37.2-46.3) % MCV 76.4 L (80.0-97.0) FL MCH 22.7 L (27.0-32.0) pg MCHC 29.7 L (32.0-37.0) g/dL RDW 19.0 H (11.5-14.5) % MPV 9.2 L (9.5-12.2) FL BUN 36.1 H (9.0-27.0) mg/dL Est GFR (CKD-EPI) 38 L (>=60) BUN/Creatinine Ratio 25.79 H (12.00-20.00) Ratio Glucose (70-110) mg/dL POC Glucose (mg/dL) 220 H (70-110) mg/dL Calcium 8.0 L (8.7-10.3) mg/dL Assessment and Plan (1) Sepsis Current Visit: Yes Status: Acute Code(s): A41.9 - SEPSIS, UNSPECIFIED ORGANISM SNOMED Code(s): 02366656 (2) UTI (urinary tract infection) Current Visit: Yes Status: Acute Code(s): N39.0 - URINARY TRACT INFECTION, SITE NOT SPECIFIED SNOMED Code(s): 78528475 (3) Leukocytosis Current Visit: No Status: Acute Code(s): D72.829 - ELEVATED WHITE BLOOD CELL COUNT, UNSPECIFIED SNOMED Code(s): 054877238 Plan: 1patient presented to hospital with sepsis in this patient who did have a elevated white count tachycardia, elevated lactic acid meeting currently for SIRS source is urinary in this patient who did have significantly positive UA recording during Streeter catheter risk factor for recurrent UTIs. With the last urine culture positive for Pseudomonas aeruginosa 2-patient white count has normalized,, initial urine culture reported negative however the patient did have repeat UA that was significantly positive, with repeat urine cultures currently pending continue with the cefepime Dictation was produced using [employer] dictation software. please excuse any grammatical, word or spelling errors. Time with Patient: Less than 30
[2024-10-15 12:18] LABS: Glucose,Whole Blood 108 mg/dL (70-110)
[2024-10-15 13:00] VITALS: BMI 25.8
[2024-10-15 20:11] LABS: Glucose,Whole Blood 209 mg/dL (70-110)
--- NOTE | 2024-10-16 03:01 | P.PN ---
Subjective Progress Note Date: 10/15/24 This is a pleasant 84-year-old female with medical history significant for atrial fibrillation, diabetes mellitus, hypertension, permanent PEG tube placement. [facility] with concern for fever and altered mentation. While in the ER patient was found to have a bnormal urine with a white blood cell count of 24.7. Noted that patient does have a chronic indwelling Ramesh catheter and states that the fdc changed out on . She has a sodium level 137 and a BUN of 44 creatinine of 1.41. Her lactic acid is 2.2. She is admitted with concern for urinary tract infection and sepsis. Chest x-ray is read as vascular congestion however upon review does not appear to be congestive [place] [address]. Patient received fluid bolus and was started on normal saline at 130 mL/h. Is not appear volume overloaded at this time. She was started empirically on IV ceftriaxone urine culture and blood cultures are currently pending at this time. Of note the patient was in the hospital most recently in July 2024 where she underwent PEG tube replacement for a dislodged PEG tube. At that time a urinalysis was done showing Pseudomonas pansensitive. ID will be consulted for further evaluation recommendations. Patient is not complaining of any chest pain or shortness of breath at this time and she has been afebrile. She is currently awake alert and oriented. 10/12/2024 Patient is seen and evaluated in follow-up today currently maintained on IV cefepime with infectious disease following. Urine culture was obtained and pending at this time and awaiting for finalized cultures to determine discharge antibiotics. Patient does have a PEG tube with tube feedings and also noted to be eating on exam today. Per nursing staff patient does eat as well. Patient reports not much of an appetite and barely ate anything from her breakfast tray. Recommend monitoring PEG tube for residuals closely and continue with aspiration precautions. Patient is afebrile and white count has improved. Sodium mildly low at 132 and creatinine is increased at 1.7 and patient takes Farxiga, will discontinue for now and follow-up with repeat labs. Patient does reside at [facility] and will be returning there on discharge. Will follow-up on repeat labs in the a.m. 10/13/2024 Patient is evaluated today in follow up on the medical floor. Patient is currently pending urine culture. Remains on IV cefepime with ID following closely. Renal function improved with BUN 42.9, creatinine 1.5. Potassium 3.2, white blood cell count 6.34, hgb 7.5. Procalcitonin remains elevated at 3.44. Patient remains on regular diet for pleasure feeds and PEG tube feeds were held at the time of assessment. Patients bowels are moving. 10/14/2024 Patient is seen in follow-up awaiting urine and awaiting cultures to finalize with infectious disease following. Patient is continued on cefepime and cultures were normal although repeat urinalysis performed continues to show significant leukocyte esterase and repeat culture is pending at this time. Patient does have significant history of recurrent UTIs and chronic indwelling Ramesh catheter and will need to await repeat culture to determine discharge antibiotics. Patient is afebrile with no reports of chest pain or shortness of breath. Continue with aspiration precautions along with bowel regimen. Procalcitonin was elevated. 10/15/2024 Patient is seen in follow-up continues on cefepime while awaiting repeat cultures to finalize. Patient repeat urinalysis was significantly positive and infectious disease recommended awaiting repeat finalized cultures to determine discharge antibiotics. Patient with chronic indwelling Ramesh catheter and has been exchanged on admission. Plan will be for patient to return to [facility]. Per nursing staff patient is maintained on oral diet as well as PEG tube and speech being reevaluated. Recommend n.p.o. until speech sees as patient is high risk for aspiration. Tolerating tube feeds and patient is extremely weak making it difficult to feed herself. Patient is afebrile and kidney functions are improving. Will follow-up with repeat labs. Review of systems: Constitutional: No reports of fatigue, fever, or chills Cardiovascular: No reports of chest pain or palpitations Respiratory: No reports of shortness of breath or cough GI: No reports of nausea, vomiting, or diarrhea, reports not much of an appetite : No reports of dysuria or retention Neurovascular: reports of generalized weakness All medications have been reviewed PHYSICAL EXAMINATION: GENERAL: The patient is alert and oriented x3, slow mentation. Well developed, Elderly appearing, obese HEENT: Pupils are round and equally reacting to light. EOMI. No scleral icterus. No conjunctival pallor. Normocephalic, atraumatic. No pharyngeal erythema. No thyromegaly. CARDIOVASCULAR: S1 and S2 present. No murmurs, rubs, or gallops. PULMONARY: Chest is clear to auscultation, no wheezing or crackles. ABDOMEN: Soft, nontender, nondistended, normoactive bowel sounds. No palpable organomegaly. Peg tube in place site does not look infected. Chronic ramesh. MUSCULOSKELETAL: No joint swelling or deformity. EXTREMITIES: No cyanosis, clubbing, mild pedal edema. NEUROLOGICAL: Gross neurological examination did not reveal any focal deficits. Diffuse weakness SKIN: No rashes. 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 Currently awaiting repeat urine culture results. Initial urine culture negative with repeat urinalysis being positive and awaiting repeat cultures. Blood cultures thus far negative Dietary on consult for PEG tube feedings Strict aspiration precautions with head of bed up 30-45% at all times. Per nursing staff patient does not tolerate much oral intake and is concern for aspiration and high risk, will place patient n.p.o. and have speech reevaluate the patient. Resume anticoagulation Repeat BMP and CBC in the AM, Patient does have chronic kidney disease and kidney functions are improved at this time Farxiga on hold and renal function improved. Patient resides at [facility] and will be returning there on discharge with social work following. Anticipate return to [facility] once cultures have finalized possibly in the next 24 to 48 hours Due to multiple complex medical issues, overall prognosis is guarded The impression and plan of care has been dictated by Ivy Araya, Nurse Practitioner as directed. Dr. Yogi MD I have performed a history and physical examination and medical decision making of this patient, discussed the same with the dictator, and agree with the dictators assessment and plan as written, documented as a scribe. Based on total visit time, I have performed more than 50% of this visit. Objective - Vital Signs Vital signs: Vital Signs Temp 97.5 F L 10/16/24 01:57 Pulse 75 10/16/24 01:57 Resp 16 10/16/24 01:57 BP 120/64 10/16/24 01:57 Pulse Ox 99 10/16/24 01:57 FiO2 Intake & Output 10/15/24 10/15/24 10/16/24 06:59 18:59 06:59 Intake Total 540 540 560 Output Total 1900 2675 850 Balance -4354 -9779 -518 Weight 64 kg 64 kg Intake: Oral 540 540 560 Output: Urine 1900 2675 850 Other: Voiding Method Indwelling Catheter Indwelling Catheter # Bowel Movements 1 - Labs CBC & Chem 7: 10/15/24 04:02 10/15/24 04:02 Labs: Abnormal Lab Results - Last 24 Hours (Table) 10/15/24 10/15/24 10/15/24 Range/Units 04:02 04:02 20:09 RBC 3.65 L (4.10-5.20) X 10*6/uL Hgb 8.3 L (12.0-15.0) g/dL Hct 27.9 L (37.2-46.3) % MCV 76.4 L (80.0-97.0) FL MCH 22.7 L (27.0-32.0) pg MCHC 29.7 L (32.0-37.0) g/dL RDW 19.0 H (11.5-14.5) % MPV 9.2 L (9.5-12.2) FL BUN 36.1 H (9.0-27.0) mg/dL Est GFR (CKD-EPI) 38 L (>=60) BUN/Creatinine Ratio 25.79 H (12.00-20.00) Ratio POC Glucose (mg/dL) 209 H (70-110) mg/dL Calcium 8.0 L (8.7-10.3) mg/dL Microbiology - Last 24 Hours (Table) 10/13/24 23:18 Urine Culture - Final Urine,Voided Deandra albicans
[2024-10-16 07:02] LABS: Glucose,Whole Blood 86 mg/dL (70-110)
[2024-10-16 08:56] LABS: BUN/Creat Ratio 24.15 Ratio (12.00-20.00); Blood Urea Nitrogen 31.4 mg/dL (9.0-27.0); Calcium 8.1 mg/dL (8.7-10.3); Carbon Dioxide 28.6 mmol/L (21.6-31.8); Chloride 102 mmol/L (96-109); Glucose 75 mg/dL (70-110); Potassium 3.4 mmol/L (3.5-5.5); Sodium 139 mmol/L (135-145)
[2024-10-16 09:02] LABS: Basophils # (A) 0.05 X 10*3/uL (0.00-0.10); Basophils % (A) 0.8 %; Eosinophils # (A) 0.26 X 10*3/uL (0.04-0.35); Eosinophils % (A) 4.2 %; HCT 28.8 % (37.2-46.3); HGB 8.7 g/dL (12.0-15.0); Lymphocytes # (A) 1.29 X 10*3/uL (0.90-5.00); Lymphocytes % (A) 21.1 %; MCH 22.7 pg (27.0-32.0); MCHC 30.2 g/dL (32.0-37.0); Monocytes # (A) 0.53 X 10*3/uL (0.20-1.00); Monocytes % (A) 8.7 %; NRBC Per 100 WBC 0 X 10*3/uL (0.00-0.01); Neutrophils # (A) 3.97 X 10*3/uL (1.80-7.70); Neutrophils % (A) 64.9 %; Platelet Count 357 X 10*3/uL (140-440); RBC 3.84 X 10*6/uL (4.10-5.20); WBC 6.12 X 10*3/uL (4.50-10.00)
[2024-10-16] MEDS: FERROUS SULFATE 325 MG TAB PO SCH (10:00)
[2024-10-16] MEDS ORDERED: Potassium Replacement Protocol 1 EACH MISC MISCELLANE PRN (11:24)
[2024-10-16 12:04] LABS: Glucose,Whole Blood 143 mg/dL (70-110)
[2024-10-16] MEDS: POTASSIUM CHLORIDE ER 20 MEQ TAB.ER PO SCH (12:13)
--- NOTE | 2024-10-16 15:09 | P.PN ---
Subjective Progress Note Date: 10/16/24 Principal diagnosis: Reason for follow-up is catheter associated UTI Patient is 84-year-old female with a past medical history significant for diabetes mellitus hypertension osteoarthritis atrial fibrillation presenting [facility] the [facility] for [facility] with concern for fever and mental status changes, patient did have a elevated white count positive UA concerning for symptomatic catheter assisted UTI. On today's evaluation that is 10/16/2024, Patient is afebrile this morning patient denies having any chest pain shortness of breath or cough, the patient is currently on room air, patient denies any abdominal pain no diarrhea no nausea no vomiting Patient white count is 6.12, creatinine is 1.3 urine is growing Deandra albicans Objective - Vital Signs Vital signs: Vital Signs Temp 97.5 F L 10/16/24 07:00 Pulse 73 10/16/24 07:00 Resp 16 10/16/24 07:00 BP 137/75 10/16/24 07:00 Pulse Ox 99 10/16/24 07:00 FiO2 Intake & Output 10/15/24 10/16/24 10/16/24 18:59 06:59 18:59 Intake Total 540 800 358 Output Total 2675 850 Balance -2135 -50 358 Weight 64 kg 64 kg Intake: Oral 540 800 358 Output: Urine 2675 850 Other: Voiding Method Indwelling Catheter # Bowel Movements 1 - Exam GENERAL DESCRIPTION: An elderly female lying in bed in no distress RESPIRATORY SYSTEM: Unlabored breathing , decreased breath sounds at bases HEART: S1 S2 regular rate and rhythm , ABDOMEN: Soft , no tenderness EXTREMITIES: No edema feet - Labs CBC & Chem 7: 10/16/24 05:10 10/16/24 05:10 Labs: Abnormal Lab Results - Last 24 Hours (Table) 10/15/24 10/16/24 10/16/24 Range/Units 20:09 05:10 05:10 RBC 3.84 L (4.10-5.20) X 10*6/uL Hgb 8.7 L (12.0-15.0) g/dL Hct 28.8 L (37.2-46.3) % MCV 75.0 L (80.0-97.0) FL MCH 22.7 L (27.0-32.0) pg MCHC 30.2 L (32.0-37.0) g/dL RDW 19.0 H (11.5-14.5) % MPV 9.0 L (9.5-12.2) FL Potassium 3.4 L (3.5-5.5) mmol/L BUN 31.4 H (9.0-27.0) mg/dL Est GFR (CKD-EPI) 41 L (>=60) BUN/Creatinine Ratio 24.15 H (12.00-20.00) Ratio POC Glucose (mg/dL) 209 H (70-110) mg/dL Calcium 8.1 L (8.7-10.3) mg/dL Microbiology - Last 24 Hours (Table) 10/10/24 22:23 Blood Culture - Final Blood 10/13/24 23:18 Urine Culture - Final Urine,Voided Deandra albicans Assessment and Plan (1) Sepsis Current Visit: Yes Status: Acute Code(s): A41.9 - SEPSIS, UNSPECIFIED ORGANISM SNOMED Code(s): 96598496 (2) UTI (urinary tract infection) Current Visit: Yes Status: Acute Code(s): N39.0 - URINARY TRACT INFECTION, SITE NOT SPECIFIED SNOMED Code(s): 15984009 (3) Leukocytosis Current Visit: No Status: Acute Code(s): D72.829 - ELEVATED WHITE BLOOD CELL COUNT, UNSPECIFIED SNOMED Code(s): 327544108 Plan: 1patient presented to hospital with sepsis in this patient who did have a elevated white count tachycardia, elevated lactic acid meeting currently for SIRS source is urinary in this patient who did have significantly positive UA recording during Streeter catheter risk factor for recurrent UTIs. With the last urine culture positive for Pseudomonas aeruginosa 2-patient white count has normalized, repeat urine culture now growing Deandra albicans will recommended 3-day course of Diflucan discontinue cefepime discussed with FAGOTER for admitting team Dictation was produced using [employer] dictation software. please excuse any grammatical, word or spelling errors. Time with Patient: Less than 30
--- NOTE | 2024-10-16 15:19 | FL ---
EXAMINATION TYPE: FL barium swallow w video DATE OF EXAM: 10/16/2024 CLINICAL HISTORY: 84-year-old female assess for aspiration. Patient with history of stroke in September 2023 with ectasia and PEG tube. Patient on honey and puree consistency for pleasure only, otherwise, no by mouth intake. Presented with confusion and altered mental status. TECHNIQUE: Deglutition study is performed utilizing thin liquid barium, honey and nectar thick liqui d barium, barium thick pudding, and barium crushed cracker. Total fluoroscopy time: 3 minutes 6 seconds. Total images: None. Real-time fluoroscopy was provided to speech pathology. Total dose: 286.3 mGycm2. COMPARISON: None. FINDINGS: There is silent aspiration with thin liquid, nectar liquid, and honey liquid consistencies. No penetr ation or aspiration with either pureed or ground solids. No improvement with chin tuck maneuver. IMPRESSION: Silent aspiration with all liquid consistencies including honey liquid. Please refer to speech therapist notes for further details if necessary. [facility], , 10/16/2024 3:17 PM
--- NOTE | 2024-10-16 15:44 | P.DS ---
Providers Date of admission: 10/10/24 23:26 Expected date of discharge: 10/16/24 Attending physician: Charlie Calix Consults: 10/11/24 12:36 Consult Physician Routine Consulting Provider: Tom Ramos Consult Reason/Comments: UTI sepsis Do you want consulting provider notified?: Yes Primary care physician: [facility] Course: Final diagnosis Acute urinary tract infection with sepsis present on admission with chronic indwelling Streeter catheter. Repeat culture showing Deandra History of recurrent UTIs and most recent urinary tract infection with Pseudomonas in July 2024 Fever, leukocytosis secondary to above, improving and no further fevers Hx of atrial fibrillation Diabetes Mellitus type 2 History of CVA with residual right-sided weakness Dysphagia with aspirations status post stroke requiring PEG tube placement, patient also eats orally, recommend aspiration precautions and very sparing pleasure feeds with pured honey thickened Acute on chronic kidney disease Chronic diastolic heart failure, not in exacerbation Hx of coronary artery disease with prior PCI hyperlipidemia Obesity with a BMI 31.1 GI prophylaxis DVT prophylaxis Full Code Discharge disposition Patient is being discharged in a stable condition with guarded prognosis to [facility]. Patient will follow-up with Dr. Gaston in the outpatient setting upon discharge. Patient is to continue with tube feedings only and very sparing pleasure feeds with strict aspiration precautions. Patient is extremely high risk for aspirating and has been aspirating. Total time taken is greater than 35 minutes. Hospital course This is a 84-year-old female who was recently admitted with concerns of fever and altered mentation white count was abnormal and concerns for of acute urinary tract infection. Patient does have a chronic indwelling Streeter catheter and was exchanged and initial cultures normal although repeat urinalysis was grossly positive. Repeat finalized culture showing Deandra with infectious disease following and patient will continue on Diflucan for 3 days to complete the course. Patient has continued on cefepime throughout hospitalization. Patient does have significant history of CVA with right side deficits and had been maintained on pleasure feeds along with tube feed. Patient does have a PEG tube. Patient will continue with PEG tube and was reevaluated by speech underwent a modified barium swallow study and is aspirating recommend to continue with very sparing pleasure feeds with pured diet one-to-one supervision any liquids to be honey thickened and no straws and head of the bed elevated 30 to 45 degrees at all times. Patient should not be receiving trays to eat and should again be very sparingly on the pleasure feeds patient is not tolerating well. Patient has been cleared for discharge and will be returning to [facility]. Recommend close outpatient follow-up with primary care provider. Please refer to other consultation notes for further HPI. Currently no reports of chest pain, shortness of breath, or palpitations. Patient is afebrile. No reports of nausea or vomiting and patient is tolerating diet. Patient will be going to [facility] today. Overall guarded prognosis and high risk for readmissions given significant comorbidities. Physical exam: Gen: This is a 84-year-old female who is awake, alert and oriented x 2-3, elderly appearing, ill-appearing HEENT: Head is atraumatic, normocephalic. Pupils equal, round. Sclerae is anicteric. NECK: Supple. No JVD. No lymphadenopathy. No thyromegaly. LUNGS: Diminished breath sounds bilaterally with a few scattered rhonchi. No intercostal retractions. HEART: S1, S2 are muffled ABDOMEN: Soft. Obese. Bowel sounds are present. No masses. No tenderness. EXTREMITIES: No pedal edema. No calf tenderness. NEUROLOGICAL: Patient is awake, alert and oriented x3. Cranial nerves 2 through 12 are grossly intact. Diffusely weak Please refer to medication reconciliation sheet for a list of medications. The impression and plan of care has been dictated by Ivy Araya, Nurse Practitioner as directed. Dr. oYgi MD I have performed a history and examination and MDM of this patient, discussed the same with the dictator, and agree with the dictator's assessment and plan as written ,documented as a scribe. Based on total visit time, I have performed more than 50% of the visit. Patient Condition at Discharge: Fair Plan - Discharge Summary Discharge Rx Participant: Yes New Discharge Prescriptions: No Action carvediloL [Coreg] 12.5 mg PO BID Na Phos,M-B/Na Phos,Di-Ba [Fleet Adult] 133 ml RECTAL DAILY PRN PRN Reason: Constipation Saliva Stimulant Comb. No.3 [Biotene Moisturizing Mouth] 1 tsp MUCOUS MEM Q8H PRN PRN Reason: dry mouth/throat Potassium Chloride ER [K-Dur 10] 10 meq PEG/G-TUBE DAILY INSULIN LISPRO (humaLOG) [humaLOG] See Protocol SQ ACHS Metoclopramide [Reglan] 5 mg PO DAILY Ipratropium-Albuterol Nebulize [Duoneb 0.5 mg-3 mg/3 ml Soln] 3 ml INHALATION RT-TID PRN PRN Reason: Cough guaiFENesin [guaiFENesin ER] 600 mg PO Q12H PRN PRN Reason: Cough Ferrous Sulfate Oral Elixir [Feosol Liquid] 450 mg PEG/G-TUBE DAILY Apixaban [Eliquis] 2.5 mg PO BID Empagliflozin [Jardiance] 10 mg PO DAILY Atorvastatin [Lipitor] 40 mg PO DAILY bisacodyL [Dulcolax] 10 mg RECTAL DAILY PRN PRN Reason: Constipation Famotidine [Pepcid] 20 mg PO DAILY Magnesium Hydroxide [Milk of Magnesia Concentrate] 7,200 mg PO DAILY PRN PRN Reason: Constipation Furosemide [Lasix] 20 mg PO DAILY Acetaminophen Tab [Tylenol] 500 mg PO Q6HR PRN PRN Reason: Fever And/ Or Pain Simethicone 40 mg/0.6 ml Drops [Mylicon Drops] 40 mg PO QID Lactulose [Cephulac] 30 gm PO DAILY Discharge Medication List Empagliflozin [Jardiance] 10 mg PO DAILY 03/04/24 [History] Atorvastatin [Lipitor] 40 mg PO DAILY 06/19/24 [History] Famotidine [Pepcid] 20 mg PO DAILY 06/19/24 [History] Magnesium Hydroxide [Milk of Magnesia Concentrate] 7,200 mg PO DAILY PRN 0 06/19/24 [History] Na Phos,M-B/Na Phos,Di-Ba [Fleet Adult] 133 ml RECTAL DAILY PRN 06/19/24 [History] Saliva Stimulant Comb. No.3 [Biotene Moisturizing Mouth] 1 tsp MUCOUS MEM Q8H PRN 06/19/24 [History] bisacodyL [Dulcolax] 10 mg RECTAL DAILY PRN 06/19/24 [History] carvediloL [Coreg] 12.5 mg PO BID 06/19/24 [History] Acetaminophen Tab [Tylenol] 500 mg PO Q6HR PRN 07/27/24 [History] Furosemide [Lasix] 20 mg PO DAILY 07/27/24 [History] INSULIN LISPRO (humaLOG) [humaLOG] See Protocol SQ ACHS 07/27/24 [History] Potassium Chloride ER [K-Dur 10] 10 meq PEG/G-TUBE DAILY 07/27/24 [History] Apixaban [Eliquis] 2.5 mg PO BID 10/11/24 [History] Ferrous Sulfate Oral Elixir [Feosol Liquid] 450 mg PEG/G-TUBE DAILY 10/11/24 [History] Ipratropium-Albuterol Nebulize [Duoneb 0.5 mg-3 mg/3 ml Soln] 3 ml INHALATION RT-TID PRN 10/11/24 [History] Lactulose [Cephulac] 30 gm PO DAILY 10/11/24 [History] Metoclopramide [Reglan] 5 mg PO DAILY 10/11/24 [History] Simethicone 40 mg/0.6 ml Drops [Mylicon Drops] 40 mg PO QID 10/11/24 [History] guaiFENesin [guaiFENesin ER] 600 mg PO Q12H PRN 10/11/24 [History] Fluconazole Oral Susp [Diflucan Oral Susp] 200 mg PO DAILY 3 Days #120 ml 10/16/24 [Rx] Insulin Detemir (Levemir) [Levemir] 5 unit SQ BID each 10/16/24 [Rx] Follow up Appointment(s)/Referral(s): Francesco Gaston MD [Primary Care Provider] - 1-2 days
[2024-10-16 17:05] LABS: Glucose,Whole Blood 201 mg/dL (70-110)
[2024-10-16 18:00] VITALS: BP 129/66; PULSE 46; RESP 18; TEMP 96.6
[2024-10-23 09:58] LABS: Glucose,Whole Blood 134 mg/dL (70-110)
[2024-10-23 09:58] LABS: Glucose,Whole Blood 202 mg/dL (70-110)
== END 2024-10-16 18:28 | DRG 698 ==
LOC: EC 21:56 → 5NMEDONC 23:26
PROVIDERS: ADMIT Hospitalist; ATTEND Hospitalist
DX: T83.518A Infection and inflammatory reaction due to other urinary catheter, initial encounter (principal); A41.9 Sepsis, unspecified organism; I13.0 Hypertensive heart and chronic kidney disease with heart failure and stage 1 through stage 4 chronic kidney disease, or unspecified chronic kidney disease; I50.32 Chronic diastolic (congestive) heart failure; I48.91 Unspecified atrial fibrillation; I69.351 Hemiplegia and hemiparesis following cerebral infarction affecting right dominant side; E11.22 Type 2 diabetes mellitus with diabetic chronic kidney disease; E66.9 Obesity, unspecified; N18.9 Chronic kidney disease, unspecified; N39.0 Urinary tract infection, site not specified; E78.5 Hyperlipidemia, unspecified; I25.10 Atherosclerotic heart disease of native coronary artery without angina pectoris; I69.391 Dysphagia following cerebral infarction; Y84.6 Urinary catheterization as the cause of abnormal reaction of the patient, or of later complication, without mention of misadventure at the time of the procedure; Z68.31 Body mass index [BMI] 31.0-31.9, adult; Z79.01 Long term (current) use of anticoagulants; Z79.4 Long term (current) use of insulin; Z79.84 Long term (current) use of oral hypoglycemic drugs; Z79.899 Other long term (current) drug therapy; Z85.42 Personal history of malignant neoplasm of other parts of uterus; Z98.61 Coronary angioplasty status
CPT/HCPCS: 36415; 71046; 74230; 80048; 80053; 81001; 83036; 83605; 83735; 83880; 84100; 84132; 84145; 84484; 85025; 85610; 85730; 87040; 87086; 87636; 90935; 93005; 96361; 96365; 96366; 96375; 99285

== ENCOUNTER 2025-02-21 16:41 | Inpatient (IN) | payer MEDICARE ==
[2025-02-21 17:50] LABS: Basophils # (A) 0.04 10*3/uL (0.00-0.10); Basophils % (A) 0.4 %; Eosinophils # (A) 0.02 10*3/uL (0.04-0.35); Eosinophils % (A) 0.2 %; HCT 35.7 % (37.2-46.3); HGB 11.2 g/dL (12.0-15.0); Lymphocytes # (A) 0.75 10*3/uL (0.90-5.00); Lymphocytes % (A) 7.5 %; MCH 24.4 pg (27.0-32.0); MCHC 31.4 g/dL (32.0-37.0); MCV 77.8 fL (80.0-97.0); Mean Platelet Volume 9.5 fL (9.5-12.2); Monocytes # (A) 0.48 10*3/uL (0.20-1.00); Monocytes % (A) 4.8 %; Neutrophils # (A) 8.72 10*3/uL (1.80-7.70); Neutrophils % (A) 86.9 %; Platelet Count 338 10*3/uL (140-440); RBC 4.59 10*6/uL (4.10-5.20); RDW 18.8 % (11.5-14.5); WBC 10.03 10*3/uL (4.50-10.00)
[2025-02-21 18:12] LABS: ALT 34 U/L (4-34); AST 40 U/L (14-36); African American GFR (CKD) 62 (>60 ml/min/1.73 sqM); Albumin 3.5 g/dL (3.5-5.0); Alkaline Phosphatase 130 U/L (38-126); Amylase 53 U/L (30-110); Anion Gap 8 mmol/L; Blood Urea Nitrogen 54 mg/dL (7-17); Calcium 8.5 mg/dL (8.4-10.2); Carbon Dioxide 27 mmol/L (22-30); Chloride 98 mmol/L (98-107); Glucose 193 mg/dL (74-99); Lipase 50 U/L (23-300); Non-African American GFR(CKD) 53 (>60 ml/min/1.73 sqM); Sodium 133 mmol/L (137-145); Total Bilirubin 1.3 mg/dL (0.2-1.3); Total Protein 8.3 g/dL (6.3-8.2)
--- NOTE | 2025-02-21 19:13 | CT ---
EXAMINATION TYPE: CT abdomen pelvis wo con CT DLP: 600.4 mGycm, Automated exposure control for dose reduction was used. DATE OF EXAM: 02/21/2025 6:46 PM COMPARISON: Abdominal radiograph 07/30/2024, CT abdomen pelvis 07/27/2024 CLINICAL INDICATION:Female, 84 years old with history of vomiting, R sided abdominal pain; RT SIDE AB DOMINAL PAIN TECHNIQUE: Standard CT of the abdomen and pelvis without IV or oral contrast. Lack of IV or oral co ntrast limits evaluation of solid and hollow organ viscera. Coronal and sagittal reformats were perfo rmed. FINDINGS: LOWER CHEST: Coronary artery calcifications. ABDOMEN LIVER: Unremarkable noncontrast appearance of the visualized portion. GALLBLADDER AND BILE DUCTS: Layering increased densities within the lumen consistent with gallstones are present. No biliary ductal dilatation. PANCREAS: Unremarkable noncontrast appearance. SPLEEN: Unremarkable noncontrast appearance of the visualized portion. ADRENAL GLANDS: Unremarkable noncontrast appearance.. KIDNEYS AND URETERS: No hydronephrosis. Multiple confluent calculi identified within the right kidney extending in the renal pelvis . No discrete calculus within the right ureter. Similar nonspecific mi ld right perinephric fat stranding. No periureteral fat stranding. Multiple confluent calculi identif ied within the left kidney extending into the renal pelvis. There is gas identified within the collec ting system and regions throughout the ureter. No definitive of gas within the renal parenchyma. Angelica lar nonspecific perinephric fat stranding. PELVIS BLADDER: Streeter catheter in place. There is air-fluid level with some debris and foci of gas within th e urinary bladder. No discrete wall thickening. 5 mm calculus within the right aspect of the urinary bladder. REPRODUCTIVE: The uterus is surgically absent. ABDOMEN & PELVIS STOMACH AND BOWEL: PEG tube with balloon in the stomach lumen. Proximal duodenal diverticulum.No foca l bowel wall thickening. Mild gaseous distention of the rectum. The appendix is within normal limits. No evidence of bowel obstruction. PERITONEUM: No evidence of pneumoperitoneum or free fluid. VASCULATURE: Moderate to severe atherosclerotic calcifications are present throughout the abdominal a markie and its branches. Tortuosity of the abdominal aorta. No evidence of aortic aneurysm. Pelvic phle boliths. MUSCULOSKELETAL: No acute osseous abnormalities. Diffuse bone demineralization. 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 Multilevel degenerati ve disc disease with prominent Schmorl's node involving the superior endplate of the L3 vertebral bod y. LYMPH NODES: No gross evidence for lymphadenopathy. SOFT TISSUE/ABDOMINAL WALL: Unremarkable IMPRESSION: 1. Findings of debris/gas within urinary bladder with Streeter catheter in place. Additional calculus w ithin the urinary bladder. 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 Multiple nonobstructing bilateral renal calculi extending into the renal pelvises. No hydronephrosis or discrete emphysematous pyelonephritis. Findings raise concern for ascending infection versus rece nt instrumentation. 2. 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 3. Cholelithiasis. [facility], , 02/21/2025 7:11 PM
[2025-02-21 20:05] LABS: Appearance,Urine Turbid (Clear); Bacteria,Urine Few /hpf; Bilirubin,Urine Negative (Negative); Blood,Urine Moderate (Negative); Color,Urine Light Yellow; Glucose,Urine (UA) 4+ (Negative); Ketones,Urine Negative (Negative); Leukocyte Esterase,Urine Large (Negative); Mucus,Urine Rare /hpf; Nitrite,Urine Negative (Negative); PH, Urine 8.5 (5.0-8.0); Protein,Urine 1+ (Negative); RBC,Urine 41 /hpf (0-5); Specific Gravity,Urine 1.016 (1.001-1.035); Triple Phosphate Crystal,Urine Many /hpf; Urobilinogen,Urine <2.0 mg/dL (<2.0); WBC,Urine 116 /hpf (0-5)
[2025-02-21] MEDS ORDERED: NALOXONE 0.4 MG/ML 1 ML VIAL IV PRN (20:12)
[2025-02-21] MEDS ORDERED: MAGNESIUM HYDROXIDE 2,400 MG/30 ML CUP PO PRN (21:09)
[2025-02-21] MEDS: ONDANSETRON 4 MG/2 ML VIAL IVP STA ×2 (22:08→23:08)
[2025-02-21] MEDS: SODIUM CHLORIDE 0.9% 1,000 ML IV SCH (22:42)
--- NOTE | 2025-02-21 22:59 | ED ---
Abdominal Pain HPI - General Chief Complaint: Nausea/Vomiting/Diarrhea Stated Complaint: GI issue Time Seen by Provider: 02/21/25 16:55 Source: patient Mode of arrival: EMS Limitations: physical limitation (Patient with moderate dysarthria) - History of Present Illness Initial Comments: This patient is an 84-year-old woman who arrives to have further evaluation for abdominal pain. The patient had been complaining of sided abdominal pain at the snf. She had x-rays there that reportedly showed an ileus and is transferred here to rule out developing bowel obstruction. The patient has also had multiple rounds of vomiting over the past day and then reportedly had loose stools. There is no report of coffee-ground or bloody emesis. No report of tarry stools. MD Complaint: abdominal pain Onset/Timin -: days(s) Location: LLQ Radiation: L flank Migration to: no migration Severity: moderate Consistency: constant Improves With: nothing Worsens With: nothing Associated Symptoms: nausea, vomiting, diarrhea - Related Data Home Medications Medication Instructions Recorded Confirmed Atorvastatin [Lipitor] 40 mg PEG/G-TUBE DAILY 06/19/24 02/22/25 Famotidine [Pepcid] 20 mg PEG/G-TUBE DAILY 06/19/24 02/22/25 Magnesium Hydroxide [Milk of 7,200 mg PEG/G-TUBE DAILY PRN 06/19/24 02/22/25 Magnesia Concentrate] Na Phos,M-B/Na Phos,Di-Ba [Fleet 133 ml RECTAL DAILY PRN 06/19/24 02/22/25 Adult] Saliva Stimulant Comb. No.3 1 tsp MUCOUS MEM Q12H PRN 06/19/24 02/22/25 [Biotene Moisturizing Mouth] bisacodyL [Dulcolax] 10 mg RECTAL DAILY PRN 06/19/24 02/22/25 Acetaminophen Tab [Tylenol] 500 mg PEG/G-TUBE Q6HR PRN 07/27/24 02/22/25 INSULIN LISPRO (humaLOG) [humaLOG] See Protocol SQ ACHS 07/27/24 02/22/25 Apixaban [Eliquis] 2.5 mg PEG/G-TUBE BID 10/11/24 02/22/25 Ferrous Sulfate Oral Elixir 450 mg PEG/G-TUBE DAILY 10/11/24 02/22/25 [Feosol Liquid] Ipratropium-Albuterol Nebulize 3 ml INHALATION RT-TID PRN 10/11/24 02/22/25 [Duoneb 0.5 mg-3 mg/3 ml Soln] Lactulose [Cephulac] 30 gm PO DAILY 10/11/24 02/22/25 Metoclopramide [Reglan] 5 mg PEG/G-TUBE DAILY 10/11/24 02/22/25 Simethicone 40 mg/0.6 ml Drops 40 mg PEG/G-TUBE QID 10/11/24 02/22/25 [Mylicon Drops] guaiFENesin [guaiFENesin ER] 600 mg PEG/G-TUBE Q12H PRN 10/11/24 02/22/25 Insulin Glargine,Hum.rec.anlog 5 units SQ DAILY 02/22/25 02/22/25 [Lantus Solostar Pen] Lactulose [Constulose] 30 gm PEG/G-TUBE Q12H PRN 02/22/25 02/22/25 Loperamide [Imodium] 4 mg PEG/G-TUBE QID PRN 02/22/25 02/22/25 Previous Rx's Medication Instructions Recorded Furosemide [Lasix] 40 mg PEG/G-TUBE DAILY #0 02/28/25 Potassium Chloride ER [K-Dur 10] 10 meq PO DAILY tab 02/28/25 Sulfamethox-Tmp 800-160Mg [Bactrim 1 tab PO Q12HR 7 Days #14 tab 02/28/25 DS 800-160 mg] carvediloL [Coreg*] 25 mg PO BID-W/MEALS tab 02/28/25 Allergies Allergy/AdvReac Type Severity Reaction Status Date / Time bacitracin Allergy Rash/Hives Verified 02/22/25 11:19 [From Neosporin ([id number])] ibuprofen Allergy Anaphylaxis Verified 02/22/25 11:19 & Rash all over neomycin Allergy Rash/Hives Verified 02/22/25 11:19 [From Neosporin ([id number])] polymyxin B Allergy Rash/Hives Verified 02/22/25 11:19 [From Neosporin ([id number])] Review of Systems ROS Statement: Those systems with pertinent positive or pertinent negative responses have been documented in the HPI. ROS Other: All systems not noted in ROS Statement are negative. Constitutional: Denies: fever Respiratory: Denies: cough, dyspnea Cardiovascular: Denies: chest pain, palpitations, edema Gastrointestinal: Reports: abdominal pain, nausea, vomiting, diarrhea. Denies: hematemesis, melena, hematochezia Genitourinary: Reports: other (Chronic Streeter catheter). 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 Past Anesthesia/Blood Transfusion Reactions: No Reported Reaction Past Psychological History: No Psychological Hx Reported Smoking Status: Never smoker Past Alcohol Use History: None Reported Past Drug Use History: None Reported - Past Family History Mother Family Medical History: Coronary Artery Disease (CAD), Diabetes Mellitus, Hypertension, Mitral Valve Prolapse (MVP) Father Family Medical History: Hypertension Additional Family Medical History / Comment(s): father hip surgery General Exam General appearance: alert, in no apparent distress Head exam: Present: atraumatic, normocephalic Eye exam: Present: normal appearance. Absent: scleral icterus Neck exam: Present: normal inspection Respiratory exam: Present: normal lung sounds bilaterally. Absent: respiratory distress, wheezes, rales, rhonchi, stridor, accessory muscle use Cardiovascular Exam: Present: normal rhythm, irregular rhythm, normal heart sounds. Absent: systolic murmur, diastolic murmur, rubs, gallop GI/Abdominal exam: Present: soft, tenderness (Moderate lower abdominal tenderness). Absent: distended, guarding, rebound, rigid, mass Extremities exam: Present: normal inspection, normal capillary refill. Absent: pedal edema, calf tenderness Back exam: Present: normal inspection. Absent: CVA tenderness (R), CVA tenderness (L) Neurological exam: Present: alert Skin exam: Present: warm, dry, intact, normal color. Absent: rash Course Vital Signs 05/02/21/25 02/21/25 16:52 18:56 21:00 Temperature 98.5 F 98.6 F Pulse Rate 97 105 H 98 Respiratory 16 18 18 Rate Blood Pressure 122/73 117/61 142/91 O2 Sat by Pulse 99 98 99 Oximetry Fraction of Inspired Oxygen (FIO2) 02/21/25 02/21/25 02/21/25 22:51 23:45 23:55 Temperature 102.6 F H 98.5 F Pulse Rate 121 H 93 92 Respiratory 16 18 18 Rate Blood Pressure 114/54 108/48 107/48 O2 Sat by Pulse 92 L 94 L Oximetry Fraction of Inspired Oxygen (FIO2) 02/22/25 02/22/25 02/22/25 00:04 00:24 00:30 Temperature Pulse Rate 101 H 107 H 118 H Respiratory 12 18 Rate Blood Pressure 67/34 91/60 121/71 O2 Sat by Pulse 66 L 99 99 Oximetry Fraction of Inspired Oxygen (FIO2) 02/22/25 02/22/25 02/22/25 00:36 00:37 01:00 Temperature Pulse Rate 111 H Respiratory Rate Blood Pressure 79/48 O2 Sat by Pulse 99 Oximetry Fraction of 100 100 Inspired Oxygen (FIO2) 02/22/25 02/22/25 02/22/25 01:15 01:30 01:45 Temperature Pulse Rate 112 H 128 H 128 H Respiratory Rate Blood Pressure 68/39 69/49 78/50 O2 Sat by Pulse 99 99 99 Oximetry Fraction of Inspired Oxygen (FIO2) 02/22/25 02/22/25 02/22/25 01:49 02:00 02:15 Temperature Pulse Rate 125 H 118 H Respiratory Rate Blood Pressure 73/43 74/52 O2 Sat by Pulse 99 99 Oximetry Fraction of 50 Inspired Oxygen (FIO2) 02/22/25 02/22/25 02/22/25 02:20 02:25 02:30 Temperature Pulse Rate 120 H 117 H 120 H Respiratory 18 Rate Blood Pressure 74/51 59/41 83/32 O2 Sat by Pulse 99 98 99 Oximetry Fraction of Inspired Oxygen (FIO2) Medical Decision Making - Medical Decision Making Patient is 84-year-old woman sent from snf to have evaluation for suspected developing bowel obstruction. The patient has had vomiting and di arrhea as well as been complaining of abdominal pain. The patient's workup here does reveal what appears to be ascending urinary tract infection and the patient will be admitted to have IV antibiotics, fluids, infectious disease consultation. Pending results of cultures to select specific antibiotics patient started on Rocephin. Was pt. sent in by a medical professional or institution (MISAEL Duron, INSTITUTIONAL AIDE, urgent care, hospital, or snf...) When possible be specific @ -Yes sent from snf to have further evaluation for suspected bowel obstruction Did you speak to anyone other than the patient for history (EMS, parent, family, police, friend...)? What history was obtained from this source @ -[No] Did you review nursing and triage notes (agree or disagree)? Why? @ -[I reviewed and agree with nursing and triage notes] Were old charts reviewed (outside hosp., previous admission, EMS record, old EKG, old radiological studies, urgent care reports/EKG's, snf records)? Report findings @ -[Yes, old charts were reviewed] Differential Diagnosis (chest pain, altered mental status, abdominal pain women, abdominal pain men, vaginal bleeding, weakness, fever, dyspnea, syncope, headache, dizziness, GI bleed, back pain, seizure, CVA, palpatations, mental health, musculoskeletal)? @ -[Differential Abdominal Pain Women: Appendicitis, Cholecystitis, diverticulosis, ischemic bowel, pancreatitis, hepatitis, UTI, gastroenteritis, AAA, incarcerated hernia, bowel obstruction, constipation, inflammatory bowel, hepatitis, peptic ulcer disease, splenic infarction, perforated viscus, vulvitis, ovarian torsion, PID, kidney stone, placenta abruption, this is not meant to be an all-inclusive list EKG interpreted by me (3pts min.). @ -[I interpreted as above] X-rays interpreted by me (1pt min.). @ -[None done] CT interpreted by me (1pt min.). @ -[ U/S interpreted by me (1pt. min.). @ -[None done] What testing was considered but not performed or refused? (CT, X-rays, U/S, labs)? Why? @ -[None] What meds were considered but not given or refused? Why? @ -[None] Did you discuss the management of the patient with other professionals (professionals i.e. MISAEL Duron, INSTITUTIONAL AIDE, lab, RT, psych nurse, school social worker, structural steel trades worker, teacher, immigration officer, behavioral health case manager)? Give summary @ -Case discussed with admitting physician and treatment recommendations incorporated Was smoking cessation discussed for >3mins.? @ -[No] Was critical care preformed (if so, how long)? @ -[Yes, 35 minutes Were there social determinants of health that impacted care today? How? (Homelessness, low income, unemployed, alcoholism, drug addiction, transportation, low edu. Level, literacy, decrease access to med. care, longterm, rehab)? @ -[No] Was there de-escalation of care discussed even if they declined (Discuss DNR or withdrawal of care, Hospice)? DNR status @ -[No] What co-morbidities impacted this encounter? (DM, HTN, Smoking, COPD, CAD, Cancer, CVA, ARF, Chemo, Hep., AIDS, mental health diagnosis, sleep apnea, morbid obesity)? @ -[None] Was patient admitted / discharged? Hospital course, mention meds given and route, prescriptions, significant lab abnormalities, going to OR and other pertinent info. @ -[See above Undiagnosed new problem with uncertain prognosis? @ -[No] Drug Therapy requiring intensive monitoring for toxicity (Heparin, Nitro, Insulin, Cardizem)? @ -[No] Were any procedures done? @ -[No] Diagnosis/symptom? @ -[Acute urinary tract infection Acute abdominal pain Sepsis Acute, or Chronic, or Acute on Chronic? @ -[Acute Uncomplicated (without systemic symptoms) or Complicated (systemic symptoms)? @ -[Complicated Side effects of treatment? @ -[No] Exacerbation, Progression, or Severe Exacerbation? @ -[No] Poses a threat to life or bodily function? How? (Chest pain, [place], ND, pneumonia, PE, COPD, DKA, ARF, appy, cholecystitis, CVA, Diverticulitis, Homicidal, Suicidal, threat to staff... and all critical care pts) @ -Yes there is significant risk of morbidity and mortality associated with urinary tract infection/sepsis All treatments are based on ideal body weight as in ED triage - Lab Data Result diagrams: 02/28/25 05:16 02/28/25 14:05 Lab Results 02/21/25 02/21/25 02/21/25 Range/Units 17:43 17:43 19:43 WBC 10.03 H (4.50-10.00) 10*3/uL RBC 4.59 (4.10-5.20) 10*6/uL Hgb 11.2 L (12.0-15.0) g/dL Hct 35.7 L (37.2-46.3) % MCV 77.8 L (80.0-97.0) fL MCH 24.4 L (27.0-32.0) pg MCHC 31.4 L (32.0-37.0) g/dL Plt Count 338 (140-440) 10*3/uL MPV 9.5 (9.5-12.2) fL Immature Gran % (Auto) 0.2 % Neutrophils % 86.9 % Lymphocytes % 7.5 % Monocytes % 4.8 % Eosinophils % 0.2 % Basophils % 0.4 % Immature Gran # 0.02 (0.00-0.04) 10*3/uL Neutrophils # 8.72 H (1.80-7.70) 10*3/uL Lymphocytes # 0.75 L (0.90-5.00) 10*3/uL Monocytes # 0.48 (0.20-1.00) 10*3/uL Eosinophils # 0.02 L (0.04-0.35) 10*3/uL Basophils # 0.04 (0.00-0.10) 10*3/uL Sodium 133 L (137-145) mmol/L Potassium 4.0 (3.5-5.1) mmol/L Chloride 98 (98-107) mmol/L Carbon Dioxide 27 (22-30) mmol/L Anion Gap 8 mmol/L BUN 54 H (7-17) mg/dL Creatinine 0.99 (0.52-1.04) mg/dL Est GFR (CKD-EPI)AfAm 62 (>60 ml/min/1.73 sqM) Est GFR (CKD-EPI)NonAf 53 (>60 ml/min/1.73 sqM) Glucose 193 H (74-99) mg/dL Calcium 8.5 (8.4-10.2) mg/dL Total Bilirubin 1.3 (0.2-1.3) mg/dL AST 40 H (14-36) U/L ALT 34 (4-34) U/L Alkaline Phosphatase 130 H (38-126) U/L Total Protein 8.3 H (6.3-8.2) g/dL Albumin 3.5 (3.5-5.0) g/dL Amylase 53 (30-110) U/L Lipase 50 (23-300) U/L Urine Color Light Yellow Urine Appearance Turbid H (Clear) Urine pH 8.5 H (5.0-8.0) Ur Specific [place] 1.016 (1.001-1.035) Urine Protein 1+ H (Negative) Urine Glucose (UA) 4+ H (Negative) Urine Ketones Negative (Negative) Urine Blood Moderate H (Negative) Urine Nitrite Negative (Negative) Urine Bilirubin Negative (Negative) Urine Urobilinogen <2.0 (<2.0) mg/dL Ur Leukocyte Esterase Large H (Negative) Urine RBC 41 H (0-5) /hpf Urine WBC 116 H (0-5) /hpf Triple Phos Crystals Many H (None) /hpf Urine Bacteria Few H (None) /hpf Urine Mucus Rare H (None) /hpf Disposition Clinical Impression: Acute respiratory failure Disposition: ADMITTED IP TO THIS HOSP Condition: Fair
[2025-02-21] MEDS: LACTATED RINGERS 1,000 ML IV ONE (23:05)
[2025-02-21] MEDS: LACTATED RINGERS 1,000 ML IV SCH (23:06)
[2025-02-21] MEDS: DILTIAZEM 5 MG/ML 5 ML VIAL IVP STA (23:20)
[2025-02-21] MEDS: ACETAMINOPHEN IV (For NPO) 1,000 MG in EMPTY BAG 1 BAG IVPB STA (23:24)
[2025-02-21] MEDS: DILTIAZEM 125 MG in DEXTROSE 5% IN WATER 100 ML IV SCH (23:47)
[2025-02-22 00:14] LABS: Glucose,Whole Blood 233 mg/dL (70-110)
--- NOTE | 2025-02-22 00:33 | ED ---
Medical Decision Making - Medical Decision Making Patient was boarding in the ED after being admitted to [facility]. As the ED physician, I was called to bedside after an "A team" was called due to patient becoming unresponsive with agonal respirations and there was concern that patient needed to be intubated for airway protection. On my assessment patient has agonal, gasping respirations, being assisted with BVM. Patient did not respond to voice or sternal rub and was subsequently moved to trauma bay for intubation. Patient did begin to open her eyes however had intermittent agonal respirations and concerned remained from ED staff that patient had aspirated, causing this event. Patient was subsequently intubated for airway protection. Reza Del Cid, hospitalist who responded to A team, to coordinate care with ICU attending and remaining care until pt transferred to ICU. - Lab Data Result diagrams: 02/22/25 05:03 02/22/25 05:03 Lab Results 02/21/25 02/21/25 02/21/25 Range/Units 17:43 17:43 19:43 WBC 10.03 H (4.50-10.00) 10*3/uL RBC 4.59 (4.10-5.20) 10*6/uL Hgb 11.2 L (12.0-15.0) g/dL Hct 35.7 L (37.2-46.3) % MCV 77.8 L (80.0-97.0) fL MCH 24.4 L (27.0-32.0) pg MCHC 31.4 L (32.0-37.0) g/dL Plt Count 338 (140-440) 10*3/uL MPV 9.5 (9.5-12.2) fL Immature Gran % (Auto) 0.2 % Neutrophils % 86.9 % Lymphocytes % 7.5 % Monocytes % 4.8 % Eosinophils % 0.2 % Basophils % 0.4 % Immature Gran # 0.02 (0.00-0.04) 10*3/uL Neutrophils # 8.72 H (1.80-7.70) 10*3/uL Lymphocytes # 0.75 L (0.90-5.00) 10*3/uL Monocytes # 0.48 (0.20-1.00) 10*3/uL Eosinophils # 0.02 L (0.04-0.35) 10*3/uL Basophils # 0.04 (0.00-0.10) 10*3/uL Sodium 133 L (137-145) mmol/L Potassium 4.0 (3.5-5.1) mmol/L Chloride 98 (98-107) mmol/L Carbon Dioxide 27 (22-30) mmol/L Anion Gap 8 mmol/L BUN 54 H (7-17) mg/dL Creatinine 0.99 (0.52-1.04) mg/dL Est GFR (CKD-EPI)AfAm 62 (>60 ml/min/1.73 sqM) Est GFR (CKD-EPI)NonAf 53 (>60 ml/min/1.73 sqM) Glucose 193 H (74-99) mg/dL Calcium 8.5 (8.4-10.2) mg/dL Total Bilirubin 1.3 (0.2-1.3) mg/dL AST 40 H (14-36) U/L ALT 34 (4-34) U/L Alkaline Phosphatase 130 H (38-126) U/L Total Protein 8.3 H (6.3-8.2) g/dL Albumin 3.5 (3.5-5.0) g/dL Amylase 53 (30-110) U/L Lipase 50 (23-300) U/L Urine Color Light Yellow Urine Appearance Turbid H (Clear) Urine pH 8.5 H (5.0-8.0) Ur Specific [place] 1.016 (1.001-1.035) Urine Protein 1+ H (Negative) Urine Glucose (UA) 4+ H (Negative) Urine Ketones Negative (Negative) Urine Blood Moderate H (Negative) Urine Nitrite Negative (Negative) Urine Bilirubin Negative (Negative) Urine Urobilinogen <2.0 (<2.0) mg/dL Ur Leukocyte Esterase Large H (Negative) Urine RBC 41 H (0-5) /hpf Urine WBC 116 H (0-5) /hpf Triple Phos Crystals Many H (None) /hpf Urine Bacteria Few H (None) /hpf Urine Mucus Rare H (None) /hpf Disposition Clinical Impression: Acute respiratory failure Disposition: ADMITTED IP TO THIS HOSP Condition: Serious Procedures - Intubation Sedative: Etomidate Mg Given: 10 Paralytic: Rocuronium Mg Given: 50 Laryngoscope: Sang Size: 3 ET Tube Size: 7 ET Tube Uncuffed: No Tube Secured Depth (cm): 22 Tube Placement Confirmation: visualized tube passing through cords, equal breath sounds bilaterally, no breath sounds over epigastrium, confirmation by capnometry Patient Tolerated Procedure: well Intubation Complications: none
[2025-02-22] MEDS: ROCURONIUM 10 MG/ML (5 ML VIAL) IV STA (00:38)
[2025-02-22] MEDS: ETOMIDATE 2 MG/ML 10 ML VIAL IVP STA (00:38)
[2025-02-22] MEDS: fentaNYL (PF). 1,000 MCG in SODIUM CHLORIDE 0.9% 80 ML IV SCH (01:00)
[2025-02-22] MEDS: SODIUM CHLORIDE 0.9% 1,000 ML IV ONE (01:09)
[2025-02-22 01:40] LABS: ABG HCO3 23 mmol/L (21-25); ABG Oxygen Saturation >100.0 % (94-97); ABG PCO2 34 mmHg (35-45); ABG PH 7.44 (7.35-7.45); ABG PO2 408 mmHg (83-108); ABG TCO2 24 mmol/L (19-24); Allen Test Performed? Yes
[2025-02-22] MEDS: NOREPINEPHRINE 4 MG in SODIUM CHLORIDE 0.9% 250 ML IV SCH (02:25)
[2025-02-22 02:48] LABS: Glucose,Whole Blood 248 mg/dL (70-110)
--- NOTE | 2025-02-22 03:04 | P.PCN ---
Date of Procedure: 02/22/25 Description of Procedure: INDICATION: Hypotension PROCEDURE TILE SHADER: Dr. Chung ATTENDING PHYSICIAN: Dr. Carrillo in Attendance Ultrasound Used: N CONSENT: [X] During the informed consent discussion regarding the procedure, or treatment, I explained the following to the patient/designee: a. Nature of the procedure or treatment and who will perform the procedure or treatment. b. Necessity for procedure and the possible benefits. c. Risks and complications (most common and serious). d. Alternative treatments and the risks, benefits and side effects of each (including no treatment). e. Likelihood of the patient achieving his/her goals without this procedure and surgery treatment. f. Problems that might occur during the recuperation. g. Conflicts of interest, if any [_] The procedure was emergent, the patient was unable to provide consent, and a designee was not immediately available. PROCEDURE SUMMARY: A time out was performed. My hands were washed immediately prior to the procedure. I wore a surgical cap, mask with protective eyewear, sterile gown and sterile gloves throughout the procedure. The RIGHT inguinal region was prepped using chlorhexidine scrub and draped in sterile fashion using a full drape and sterile probe cover and sterile gel employed. The femoral pulse was identified. Anesthesia was achieved using 1% lidocaine. Palpating the femoral pulse throughout the procedure, the introducer needle was inserted and arterial blood was drawn. Needle was removed and pressure was applied for a total of 7- 10 minutes. Estimated blood loss was minimal prior to pressure being applied to stop the bleeding. Continue to monitor for blood loss and any signs of active bleeding. I have seen and evaluated the patient today. we utilized the US to identify vasculature prior to procedure for teaching purposes. however was not used during the procedure. prolonged pressure was held after arterial blood was identified as patient is on blood thinners. follow up CBC in am , monitor for any signs of hematoma in the right groin
[2025-02-22] MEDS: MIDAZOLAM 2 MG/2 ML VIAL IV ONE (03:53)
[2025-02-22] MEDS: fentaNYL (PF) 50 MCG/ML 2 ML AMP IVP STA (03:53)
--- NOTE | 2025-02-22 04:08 | XR ---
EXAM: XR Chest, 1 View CLINICAL HISTORY: ITS.REASON XR Reason: Intubation TECHNIQUE: Frontal view of the chest. COMPARISON: X-ray dated 10/10/2024. FINDINGS: Lungs: Rounded opacity is seen within the left midlung. Question of a confluent right perihilar airspace opacity. Chronic lung markings are seen bilaterally. Pleural space: Unremarkable. No pneumothorax. Heart: Mild enlargement of the cardiac silhouette. Mediastinum: Unremarkable. Normal mediastinal contour. Bones/joints: Unremarkable. No acute fracture. Vasculature: Calcifications overlie the aorta. Tubes, lines and devices: The trachea tube is in place terminating 2.4 cm from the loren. Enteric tube is in place with the side-port at the level of the gastroesophageal junction. IMPRESSION: 1. Medical supportive devices as above. 2. Possible right perihilar pneumonia. 3. Left upper lobe pulmonary nodule versus pneumonia. Consider chest CT for further evaluation.
[2025-02-22 05:55] LABS: Basophils # (A) 0.07 10*3/uL (0.00-0.10); Basophils % (A) 0.3 %; HCT 29.1 % (37.2-46.3); Lymphocytes # (A) 0.69 10*3/uL (0.90-5.00); Lymphocytes % (A) 3.3 %; MCH 24.6 pg (27.0-32.0); MCHC 30.2 g/dL (32.0-37.0); MCV 81.3 fL (80.0-97.0); Mean Platelet Volume 9.9 fL (9.5-12.2); Monocytes # (A) 1.61 10*3/uL (0.20-1.00); Monocytes % (A) 7.7 %; Neutrophils # (A) 18.47 10*3/uL (1.80-7.70); Neutrophils % (A) 88.2 %; Platelet Count 295 10*3/uL (140-440); RBC 3.58 10*6/uL (4.10-5.20); WBC 20.94 10*3/uL (4.50-10.00)
[2025-02-22 05:56] LABS: HGB 8.8 g/dL (12.0-15.0)
[2025-02-22 06:21] LABS: African American GFR (CKD) 60 (>60 ml/min/1.73 sqM); Anion Gap 11 mmol/L; Blood Urea Nitrogen 52 mg/dL (7-17); Calcium 8.2 mg/dL (8.4-10.2); Carbon Dioxide 20 mmol/L (22-30); Chloride 101 mmol/L (98-107); Glucose 200 mg/dL (74-99); Non-African American GFR(CKD) 52 (>60 ml/min/1.73 sqM); Potassium 3.8 mmol/L (3.5-5.1); Sodium 132 mmol/L (137-145)
[2025-02-22] MEDS: IPRATROPIUM-ALBUTEROL 3 ML NEB INHALATION PRN (07:51)
--- NOTE | 2025-02-22 08:35 | XR ---
EXAMINATION TYPE: XR chest 1V portable DATE OF EXAM: 02/22/2025 5:26 AM COMPARISON: 02/22/2025 CLINICAL INDICATION: Female, 84 years old with history of Tube placement, , FINDINGS: ET and NG tubes are satisfactory. Patient is rotated towards the left. Normal cardiac and mediastinal contours. Heart appears upper limits of normal in size. Mild interstitial density persists but with improvement from prior. Mild patchy left basilar opacity also remains. IMPRESSION: Improving bilateral patchy and interstitial changes. Residual pulmonary vascular congestion suspected . Patchy left basilar opacity remains. [facility], Workstation: [facility], 02/22/2025 8:32 AM
[2025-02-22] MEDS: APIXABAN 2.5 MG TABLET PO SCH (10:00)
[2025-02-22] MEDS: CHLORHEXIDINE GLUCONATE 15 ML CUP MUCOUS MEM SCH (10:00)
[2025-02-22] MEDS: FAMOTIDINE 20 MG TAB PO SCH (10:00)
[2025-02-22] MEDS: ATORVASTATIN 40 MG TAB PO SCH (10:00)
[2025-02-22] MEDS: LACTULOSE 20 GM/30 ML CUP PO SCH (10:00)
[2025-02-22] MEDS: POTASSIUM CHLORIDE ER 10 MEQ TAB.ER.PRT PO SCH (10:02)
[2025-02-22] MEDS: carvediloL 12.5 MG TAB PO SCH (10:03)
[2025-02-22] MEDS: FERROUS SULFATE ORAL ELIXIR 300 MG/5 ML CUP PEG/G-TUBE SCH (10:09)
[2025-02-22] MEDS: DAPAGLIFLOZIN PROPANEDIOL 5 MG TABLET PO SCH (10:26)
[2025-02-22] MEDS: METOCLOPRAMIDE 5 MG TAB PO SCH (10:26)
[2025-02-22 10:28] LABS: ABG Base Excess 0.1 mmol/L; ABG HCO3 24 mmol/L (21-25); ABG Oxygen Saturation >100.0 % (94-97); ABG PCO2 36 mmHg (35-45); ABG PH 7.43 (7.35-7.45); ABG PO2 174 mmHg (83-108); ABG TCO2 25 mmol/L (19-24); Allen Test Performed? Yes
[2025-02-22 11:26] LABS: Glucose,Whole Blood 219 mg/dL (70-110)
--- NOTE | 2025-02-22 11:49 | P.CONS ---
History of Present Illness - Reason for Consult Consult date: 02/22/25 - History of Present Illness Patient is a 84-year-old female being seen in was admitted to this hospital on 02/21/2025 and admitted to this ICU today on 02/22/2025 for sepsis secondary to complicated UTI. She initially came to the ED from her skilled nursing due to her complaint of abdominal pain. He had x-rays today that showed ileus and was transferred here to rule out possible bowel obstruction. She reports of multipl e rounds of nonbloody vomiting for the past day and multiple episodes of loose nonbloody stools. No report of tarry stools. 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 Multiple non-obstructing bilateral renal calculi extending to the renal pelvises. No hydronephrosis or discrete emphysematous pyelonephritis. Chest x- ray displaying bilateral interstitial changes. Was informed that she had atrial fibrillation with RVR in the ED. She was placed on cardizem drip which has now been discontinued. She was also found agonally breathing. They ultimately decided to intubate and mechanically ventilate her along with being sedated on fentalyl drip. Initial labs displayed 10.03, hgb 11, platelet 295, Na 133, K 4, Co2 27, BUN 54, Cr .99, glucose 193. Other medical history of hypertension, CVA/TIA, diabetes mellitus, hypertension, history of uterine cancer. Patient has been seen and evaluated in the ICU on 02/17/2025. Patient is currently sedated on propofol 20 mcg/kg/min and mechanically intubated on asssit volume control at a tidal volume of 400, set at a rate of 18 breaths/min, PEEP of 5, FiO2 of 50%. ABG while on 100% FiO2 was 408/34/7.44. She currently required pressors with levo at 0.08 mcg/kg/min, lactated Ringer's at 130 cc an hour. Patient requires PEG tube for feeds, she can resume. CXR displaying improving bilateral patchy interstitial changes. Labs displaying WBC 20.94, Hgb 8.8, hematocrit 29.1, platelet 295, sodium 132, potassium 3.8, chloride 101, CO2 20, anion gap 11, BUN 52, creatinine 1.02, glucose 200, calcium 8.2. Spoke with respiratory therapy and we will adjust her tidal volume to 350. Plan to repeat her ABG this morning. We will also attempt to wean her of sedation and potentially extubate today if she can tolerate. Will continue to follow her in the ICU. Prognosis is guarded. 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 Past Anesthesia/Blood Transfusion Reactions: No Reported Reaction Past Psychological History: No Psychological Hx Reported Smoking Status: Never smoker Past Alcohol Use History: None Reported Past Drug Use History: None Reported - Past Family History Mother Family Medical History: Coronary Artery Disease (CAD), Diabetes Mellitus, Hypertension, Mitral Valve Prolapse (MVP) Father Family Medical History: Hypertension Additional Family Medical History / Comment(s): father hip surgery Medications and Allergies Home Medications Medication Instructions Recorded Confirmed Type Empagliflozin [Jardiance] 10 mg PO DAILY 03/04/24 10/11/24 History Atorvastatin [Lipitor] 40 mg PO DAILY 06/19/24 10/11/24 History Famotidine [Pepcid] 20 mg PO DAILY 06/19/24 10/11/24 History Magnesium Hydroxide [Milk of 7,200 mg PO DAILY PRN 06/19/24 10/11/24 History Magnesia Concentrate] Na Phos,M-B/Na Phos,Di-Ba [Fleet 133 ml RECTAL DAILY PRN 06/19/24 10/11/24 History Adult] Saliva Stimulant Comb. No.3 1 tsp MUCOUS MEM Q8H PRN 06/19/24 10/11/24 History [Biotene Moisturizing Mouth] bisacodyL [Dulcolax] 10 mg RECTAL DAILY PRN 06/19/24 10/11/24 History carvediloL [Coreg] 12.5 mg PO BID 06/19/24 10/11/24 History Acetaminophen Tab [Tylenol] 500 mg PO Q6HR PRN 07/27/24 10/11/24 History Furosemide [Lasix] 20 mg PO DAILY 07/27/24 10/11/24 History INSULIN LISPRO (humaLOG) [humaLOG] See Protocol SQ ACHS 07/27/24 10/11/24 History Potassium Chloride ER [K-Dur 10] 10 meq PEG/G-TUBE DAILY 07/27/24 10/11/24 History Apixaban [Eliquis] 2.5 mg PO BID 10/11/24 10/11/24 History Ferrous Sulfate Oral Elixir 450 mg PEG/G-TUBE DAILY 10/11/24 10/11/24 History [Feosol Liquid] Ipratropium-Albuterol Nebulize 3 ml INHALATION RT-TID PRN 10/11/24 10/11/24 History [Duoneb 0.5 mg-3 mg/3 ml Soln] Lactulose [Cephulac] 30 gm PO DAILY 10/11/24 10/11/24 History Metoclopramide [Reglan] 5 mg PO DAILY 10/11/24 10/11/24 History Simethicone 40 mg/0.6 ml Drops 40 mg PO QID 10/11/24 10/11/24 History [Mylicon Drops] guaiFENesin [guaiFENesin ER] 600 mg PO Q12H PRN 10/11/24 10/11/24 History Fluconazole Oral Susp [Diflucan 200 mg PO DAILY 3 Days #120 ml 10/16/24 Rx Oral Susp] Insulin Detemir (Levemir) [Levemir] 5 unit SQ BID each 10/16/24 Rx Allergies Allergy/AdvReac Type Severity Reaction Status Date / Time bacitracin Allergy Rash/Hives Verified 02/22/25 11:19 [From Neosporin ([id number])] ibuprofen Allergy Anaphylaxis Verified 02/22/25 11:19 & Rash all over neomycin Allergy Rash/Hives Verified 02/22/25 11:19 [From Neosporin ([id number])] polymyxin B Allergy Rash/Hives Verified 02/22/25 11:19 [From Neosporin ([id number])] Physical Exam Vitals: Vital Signs Temp Pulse Pulse Resp BP Pulse Ox FiO2 02/22/25 08:08 110 H 02/22/25 07:55 103 H 02/22/25 07:51 50 02/22/25 07:00 118 H 18 122/80 100 50 02/22/25 06:45 105 H 18 102/71 100 50 02/22/25 06:30 105 H 18 124/88 100 50 02/22/25 06:15 94 18 103/66 100 50 02/22/25 06:00 110 H 18 92/72 100 50 02/22/25 05:45 117 H 18 100/76 100 50 02/22/25 05:30 107 H 18 88/65 100 50 02/22/25 05:15 108 H 18 117/73 100 50 02/22/25 05:00 105 H 18 104/64 100 50 02/22/25 04:45 104 H 18 102/64 100 50 02/22/25 04:30 111 H 18 100 50 02/22/25 04:15 105 H 18 98/58 100 50 02/22/25 04:13 50 02/22/25 04:00 106 H 115 H 18 96/63 100 50 02/22/25 03:45 120 H 18 82/69 100 50 02/22/25 03:30 120 H 18 84/53 100 50 02/22/25 03:15 117 H 18 66/33 100 50 02/22/25 03:12 97.6 F 114 H 18 100 50 02/22/25 03:00 116 H 18 79/51 100 02/22/25 02:45 97.6 F 18 136/92 100 02/22/25 02:30 120 H 18 83/32 99 02/22/25 02:25 117 H 59/41 98 02/22/25 02:20 120 H 74/51 99 02/22/25 02:15 118 H 74/52 99 02/22/25 02:00 125 H 73/43 99 02/22/25 01:49 50 02/22/25 01:45 128 H 78/50 99 02/22/25 01:30 128 H 69/49 99 02/22/25 01:15 112 H 68/39 99 02/22/25 01:00 111 H 79/48 99 02/22/25 00:37 100 02/22/25 00:36 100 02/22/25 00:30 118 H 121/71 99 02/22/25 00:24 107 H 18 91/60 99 02/22/25 00:04 101 H 12 67/34 66 L 02/21/25 23:55 92 18 107/48 94 L 02/21/25 23:45 98.5 F 93 18 108/48 02/21/25 22:51 102.6 F H 121 H 16 114/54 92 L 02/21/25 21:00 98 18 142/91 99 02/21/25 18:56 98.6 F 105 H 18 117/61 98 02/21/25 16:52 98.5 F 97 16 122/73 99 Intake and Output 02/21/25 02/22/25 02/22/25 22:59 06:59 14:59 Intake Total 727.994 69.360 Output Total 97 Balance 630.994 69.360 Intake: Intake, IV Titration 727.994 69.360 Amount Diltiazem 125 mg In 1.417 Dextrose 5% in Water 100 ml @ 5 MG/HR 5 mls/hr IV .Q24H [facility] Rx#:[id number] Lactated Ringers 1,000 ml 650 @ 130 mls/hr IV .Q7H42M [facility] Rx#:[id number] Norepinephrine 4 mg In 60.761 58.585 Sodium Chloride 0.9% 250 ml @ 0.03 MCG/KG/MIN 7. 532 mls/hr IV .Q24H [facility] Rx#:[id number] fentaNYL (PF). 1,000 mcg 7.414 In Sodium Chloride 0.9% 80 ml @ 0.5 MCG/KG/HR 3. 295 mls/hr IV .Q24H [facility] Rx#:[id number] propofoL 1,000 mg In 8.402 10.775 Empty Bag 1 bag @ 10 MCG/ KG/MIN 3.954 mls/hr IV . Q24H [facility] Rx#:[id number] Oral 0 Output: Urine 97 Other: Voiding Method Indwelling Catheter # Voids 1 Weight 65.9 kg 65.9 kg General: Sedated and on mechanical ventilator Derm: warm, dry, intact Head: atraumatic, normocephalic, symmetric Eyes: EOMI, anicteric sclera Mouth: no lip lesion, mucus membranes moist Cardiovascular: S1 S2 irregular, no murmur, rubs, or gallops Lungs: CTA bilateral, no rhonchi, no rales, no accessory muscle use Abdominal: soft, non-tender to palpataion, no appreciable organomegaly Extremities: no gross muscle atrophy, no edema, no contractures Neuro: Alert, Oriented, CNII-XII grossly intact, gait normal Psych: well appearing, appropriate affect Results CBC & Chem 7: 02/22/25 05:03 02/22/25 05:03 Labs: Abnormal Lab Results - Last 24 Hours (Table) 02/21/25 02/21/25 02/21/25 Range/Units 17:43 17:43 19:43 WBC 10.03 H (4.50-10.00) 10*3/uL RBC (4.10-5.20) 10*6/uL Hgb 11.2 L (12.0-15.0) g/dL Hct 35.7 L (37.2-46.3) % MCV 77.8 L (80.0-97.0) fL MCH 24.4 L (27.0-32.0) pg MCHC 31.4 L (32.0-37.0) g/dL Immature Gran # (0.00-0.04) 10*3/uL Neutrophils # 8.72 H (1.80-7.70) 10*3/uL Lymphocytes # 0.75 L (0.90-5.00) 10*3/uL Monocytes # (0.20-1.00) 10*3/uL Eosinophils # 0.02 L (0.04-0.35) 10*3/uL ABG pCO2 (35-45) mmHg ABG pO2 (83-108) mmHg ABG O2 Saturation (94-97) % Hemoglobin (11.4-16.0) gm/dL Sodium 133 L (137-145) mmol/L Carbon Dioxide (22-30) mmol/L BUN 54 H (7-17) mg/dL Glucose 193 H (74-99) mg/dL POC Glucose (mg/dL) (70-110) mg/dL Calcium (8.4-10.2) mg/dL AST 40 H (14-36) U/L Alkaline Phosphatase 130 H (38-126) U/L Total Protein 8.3 H (6.3-8.2) g/dL Urine Appearance Turbid H (Clear) Urine pH 8.5 H (5.0-8.0) Urine Protein 1+ H (Negative) Urine Glucose (UA) 4+ H (Negative) Urine Blood Moderate H (Negative) Ur Leukocyte Esterase Large H (Negative) Urine RBC 41 H (0-5) /hpf Urine WBC 116 H (0-5) /hpf Triple Phos Crystals Many H (None) /hpf Urine Bacteria Few H (None) /hpf Urine Mucus Rare H (None) /hpf 02/22/25 02/22/25 02/22/25 Range/Units 00:13 01:36 02:48 WBC (4.50-10.00) 10*3/uL RBC (4.10-5.20) 10*6/uL Hgb (12.0-15.0) g/dL Hct (37.2-46.3) % MCV (80.0-97.0) fL MCH (27.0-32.0) pg MCHC (32.0-37.0) g/dL Immature Gran # (0.00-0.04) 10*3/uL Neutrophils # (1.80-7.70) 10*3/uL Lymphocytes # (0.90-5.00) 10*3/uL Monocytes # (0.20-1.00) 10*3/uL Eosinophils # (0.04-0.35) 10*3/uL ABG pCO2 34 L (35-45) mmHg ABG pO2 408 H (83-108) mmHg ABG O2 Saturation >100.0 H (94-97) % Hemoglobin 8.8 L (11.4-16.0) gm/dL Sodium (137-145) mmol/L Carbon Dioxide (22-30) mmol/L BUN (7-17) mg/dL Glucose (74-99) mg/dL POC Glucose (mg/dL) 233 H 248 H (70-110) mg/dL Calcium (8.4-10.2) mg/dL AST (14-36) U/L Alkaline Phosphatase (38-126) U/L Total Protein (6.3-8.2) g/dL Urine Appearance (Clear) Urine pH (5.0-8.0) Urine Protein (Negative) Urine Glucose (UA) (Negative) Urine Blood (Negative) Ur Leukocyte Esterase (Negative) Urine RBC (0-5) /hpf Urine WBC (0-5) /hpf Triple Phos Crystals (None) /hpf Urine Bacteria (None) /hpf Urine Mucus (None) /hpf 05/30/25 05/30/25 Range/Units 05:03 05:03 WBC 20.94 H (4.50-10.00) 10*3/uL RBC 3.58 L (4.10-5.20) 10*6/uL Hgb 8.8 L D (12.0-15.0) g/dL Hct 29.1 L (37.2-46.3) % MCV (80.0-97.0) fL MCH 24.6 L (27.0-32.0) pg MCHC 30.2 L (32.0-37.0) g/dL Immature Gran # 0.10 H (0.00-0.04) 10*3/uL Neutrophils # 18.47 H (1.80-7.70) 10*3/uL Lymphocytes # 0.69 L (0.90-5.00) 10*3/uL Monocytes # 1.61 H (0.20-1.00) 10*3/uL Eosinophils # 0.00 L (0.04-0.35) 10*3/uL ABG pCO2 (35-45) mmHg ABG pO2 (83-108) mmHg ABG O2 Saturation (94-97) % Hemoglobin (11.4-16.0) gm/dL Sodium 132 L (137-145) mmol/L Carbon Dioxide 20 L (22-30) mmol/L BUN 52 H (7-17) mg/dL Glucose 200 H (74-99) mg/dL POC Glucose (mg/dL) (70-110) mg/dL Calcium 8.2 L (8.4-10.2) mg/dL AST (14-36) U/L Alkaline Phosphatase (38-126) U/L Total Protein (6.3-8.2) g/dL Urine Appearance (Clear) Urine pH (5.0-8.0) Urine Protein (Negative) Urine Glucose (UA) (Negative) Urine Blood (Negative) Ur Leukocyte Esterase (Negative) Urine RBC (0-5) /hpf Urine WBC (0-5) /hpf Triple Phos Crystals (None) /hpf Urine Bacteria (None) /hpf Urine Mucus (None) /hpf Assessment and Plan Assessment: Sepsis secondary to complicated UTI in the setting of left-sided emphysematous pyelitis and left-sided pneumoureter Leukocytosis secondary to above Acute hypoxic respiratory failure requiring mechanical ventilation Hypotension requiring pressors Atrial fibrillation with RVR Hyperglycemia in oen-[id number]-ljuijifdp diabetic History of uterine cancer History of CVA with right-sided deficit and aphasia History of hypertension Anemia of chronic disease Plan: Repeat ABG and plan to spontaneous presentation with sedation holiday and extubation Continue Rocephin 2 g IVPB every 24 hours, consider Zosyn or cefepime due to history of Pseudomonas seen on previous urine cultures Continue LR at 130 cc an hour Continue Eliquis 2.5 mg p.o. twice daily Placed patient on sliding scale, Accu-Cheks ACHS, hypoglycemic precautions, holding oral antidiabetic medication ID has been consulted Consult urology Cardiology consulted Patient will remain in ICU. Prognosis is guarded.
[2025-02-22] MEDS: CEFEPIME 2 GM in SODIUM CHLORIDE 0.9% 100 ML IVPB SCH (12:14)
[2025-02-22] MEDS: INSULIN LISPRO (HumaLOG) 100 UNIT/ML 10 mL VL SQ SCH (12:14)
--- NOTE | 2025-02-22 13:56 | P.GSCN ---
History of Present Illness Consult date: 02/22/25 Reason for Consult: Pneumoureter Requesting physician: Ursula Bradshaw History of present illness: The patient is an 84-year-old white female who underwent cystoscopy, evacuation of clot, and bilateral ureteroscopy in February 2020 for for persistent gross hematuria. The ureters were noted to be dilated down to the ureteral orifices, but there was no evidence of urolithiasis at that time. She now presents with abdominal pain, nausea, vomiting, and diarrhea. She is being managed in the ICU for presumed sepsis, likely of urinary origin. CT scan shows bilateral large renal calculi with evidence of air within the bladder and collecting systems. On the left side, though there is no overt hydronephrosis, there does appear to be UPJ calculi which may be obstructing. Her son has informed me that she had a stroke in March 2024, and due to her immobility she has had an indwelling Streeter catheter since that time. They have been changing the catheter more frequently recently due to catheter related problems. 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 Past Anesthesia/Blood Transfusion Reactions: No Reported Reaction Past Psychological History: No Psychological Hx Reported Smoking Status: Never smoker Past Alcohol Use History: None Reported Past Drug Use History: None Reported - Past Family History Mother Family Medical History: Coronary Artery Disease (CAD), Diabetes Mellitus, Hypertension, Mitral Valve Prolapse (MVP) Father Family Medical History: Hypertension Additional Family Medical History / Comment(s): father hip surgery Medications and Allergies Home Medications Medication Instructions Recorded Confirmed Type Empagliflozin [Jardiance] 10 mg PEG/G-TUBE DAILY 03/04/24 02/22/25 History Atorvastatin [Lipitor] 40 mg PEG/G-TUBE DAILY 06/19/24 02/22/25 History Famotidine [Pepcid] 20 mg PEG/G-TUBE DAILY 06/19/24 02/22/25 History Magnesium Hydroxide [Milk of 7,200 mg PEG/G-TUBE DAILY PRN 06/19/24 02/22/25 History Magnesia Concentrate] Na Phos,M-B/Na Phos,Di-Ba [Fleet 133 ml RECTAL DAILY PRN 06/19/24 02/22/25 History Adult] Saliva Stimulant Comb. No.3 1 tsp MUCOUS MEM Q12H PRN 06/19/24 02/22/25 History [Biotene Moisturizing Mouth] bisacodyL [Dulcolax] 10 mg RECTAL DAILY PRN 06/19/24 02/22/25 History carvediloL [Coreg] 12.5 mg PEG/G-TUBE BID 06/19/24 02/22/25 History Acetaminophen Tab [Tylenol] 500 mg PEG/G-TUBE Q6HR PRN 07/27/24 02/22/25 History Furosemide [Lasix] 20 mg PEG/G-TUBE DAILY 07/27/24 02/22/25 History INSULIN LISPRO (humaLOG) [humaLOG] See Protocol SQ ACHS 07/27/24 02/22/25 Histor y Apixaban [Eliquis] 2.5 mg PEG/G-TUBE BID 10/11/24 02/22/25 History Ferrous Sulfate Oral Elixir 450 mg PEG/G-TUBE DAILY 10/11/24 02/22/25 History [Feosol Liquid] Ipratropium-Albuterol Nebulize 3 ml INHALATION RT-TID PRN 10/11/24 02/22/25 History [Duoneb 0.5 mg-3 mg/3 ml Soln] Lactulose [Cephulac] 30 gm PO DAILY 10/11/24 02/22/25 History Metoclopramide [Reglan] 5 mg PEG/G-TUBE DAILY 10/11/24 02/22/25 History Simethicone 40 mg/0.6 ml Drops 40 mg PEG/G-TUBE QID 10/11/24 02/22/25 History [Mylicon Drops] guaiFENesin [guaiFENesin ER] 600 mg PEG/G-TUBE Q12H PRN 10/11/24 02/22/25 History Insulin Glargine,Hum.rec.anlog 5 units SQ DAILY 02/22/25 02/22/25 History [Lantus Solostar Pen] Lactulose [Constulose] 30 gm PEG/G-TUBE Q12H PRN 02/22/25 02/22/25 History Loperamide [Imodium] 4 mg PEG/G-TUBE QID PRN 02/22/25 02/22/25 History Allergies Allergy/AdvReac Type Severity Reaction Status Date / Time bacitracin Allergy Rash/Hives Verified 02/22/25 11:19 [From Neosporin ([id number])] ibuprofen Allergy Anaphylaxis Verified 02/22/25 11:19 & Rash all over neomycin Allergy Rash/Hives Verified 02/22/25 11:19 [From Neosporin ([id number])] polymyxin B Allergy Rash/Hives Verified 02/22/25 11:19 [From Neosporin ([id number])] Surgical - Exam Vital Signs Temp Pulse Resp BP Pulse Ox 98.5 F 97 16 122/73 99 02/21/25 16:52 02/21/25 16:52 02/21/25 16:52 02/21/25 16:52 02/21/25 16:52 - General well developed, well nourished, no distress - Respiratory normal respiratory effort - Abdomen Abdomen: soft, non tender, no guarding, no rigid, no rebound - Psychiatric oriented to time, oriented to person, oriented to place, speech is normal, memory intact Results - Labs 02/22/25 05:03 02/22/25 05:03 Abnormal Lab Results - Last 24 Hours (Table) 02/21/25 02/21/25 02/21/25 Range/Units 17:43 17:43 19:43 WBC 10.03 H (4.50-10.00) 10*3/uL RBC (4.10-5.20) 10*6/uL Hgb 11.2 L (12.0-15.0) g/dL Hct 35.7 L (37.2-46.3) % MCV 77.8 L (80.0-97.0) fL MCH 24.4 L (27.0-32.0) pg MCHC 31.4 L (32.0-37.0) g/dL Immature Gran # (0.00-0.04) 10*3/uL Neutrophils # 8.72 H (1.80-7.70) 10*3/uL Lymphocytes # 0.75 L (0.90-5.00) 10*3/uL Monocytes # (0.20-1.00) 10*3/uL Eosinophils # 0.02 L (0.04-0.35) 10*3/uL ABG pCO2 (35-45) mmHg ABG pO2 (83-108) mmHg ABG Total CO2 (19-24) mmol/L ABG O2 Saturation (94-97) % Hemoglobin (11.4-16.0) gm/dL Sodium 133 L (137-145) mmol/L Carbon Dioxide (22-30) mmol/L BUN 54 H (7-17) mg/dL Glucose 193 H (74-99) mg/dL POC Glucose (mg/dL) (70-110) mg/dL Calcium (8.4-10.2) mg/dL AST 40 H (14-36) U/L Alkaline Phosphatase 130 H (38-126) U/L Total Protein 8.3 H (6.3-8.2) g/dL Urine Appearance Turbid H (Clear) Urine pH 8.5 H (5.0-8.0) Urine Protein 1+ H (Negative) Urine Glucose (UA) 4+ H (Negative) Urine Blood Moderate H (Negative) Ur Leukocyte Esterase Large H (Negative) Urine RBC 41 H (0-5) /hpf Urine WBC 116 H (0-5) /hpf Triple Phos Crystals Many H (None) /hpf Urine Bacteria Few H (None) /hpf Urine Mucus Rare H (None) /hpf 02/22/25 02/22/25 02/22/25 Range/Units 00:13 01:36 02:48 WBC (4.50-10.00) 10*3/uL RBC (4.10-5.20) 10*6/uL Hgb (12.0-15.0) g/dL Hct (37.2-46.3) % MCV (80.0-97.0) fL MCH (27.0-32.0) pg MCHC (32.0-37.0) g/dL Immature Gran # (0.00-0.04) 10*3/uL Neutrophils # (1.80-7.70) 10*3/uL Lymphocytes # (0.90-5.00) 10*3/uL Monocytes # (0.20-1.00) 10*3/uL Eosinophils # (0.04-0.35) 10*3/uL ABG pCO2 34 L (35-45) mmHg ABG pO2 408 H (83-108) mmHg ABG Total CO2 (19-24) mmol/L ABG O2 Saturation >100.0 H (94-97) % Hemoglobin 8.8 L (11.4-16.0) gm/dL Sodium (137-145) mmol/L Carbon Dioxide (22-30) mmol/L BUN (7-17) mg/dL Glucose (74-99) mg/dL POC Glucose (mg/dL) 233 H 248 H (70-110) mg/dL Calcium (8.4-10.2) mg/dL AST (14-36) U/L Alkaline Phosphatase (38-126) U/L Total Protein (6.3-8.2) g/dL Urine Appearance (Clear) Urine pH (5.0-8.0) Urine Protein (Negative) Urine Glucose (UA) (Negative) Urine Blood (Negative) Ur Leukocyte Esterase (Negative) Urine RBC (0-5) /hpf Urine WBC (0-5) /hpf Triple Phos Crystals (None) /hpf Urine Bacteria (None) /hpf Urine Mucus (None) /hpf 02/22/25 02/22/25 02/22/25 Range/Units 05:03 05:03 10:25 WBC 20.94 H (4.50-10.00) 10*3/uL RBC 3.58 L (4.10-5.20) 10*6/uL Hgb 8.8 L D (12.0-15.0) g/dL Hct 29.1 L (37.2-46.3) % MCV (80.0-97.0) fL MCH 24.6 L (27.0-32.0) pg MCHC 30.2 L (32.0-37.0) g/dL Immature Gran # 0.10 H (0.00-0.04) 10*3/uL Neutrophils # 18.47 H (1.80-7.70) 10*3/uL Lymphocytes # 0.69 L (0.90-5.00) 10*3/uL Monocytes # 1.61 H (0.20-1.00) 10*3/uL Eosinophils # 0.00 L (0.04-0.35) 10*3/uL ABG pCO2 (35-45) mmHg ABG pO2 174 H (83-108) mmHg ABG Total CO2 25 H (19-24) mmol/L ABG O2 Saturation >100.0 H (94-97) % Hemoglobin 9.7 L (11.4-16.0) gm/dL Sodium 132 L (137-145) mmol/L Carbon Dioxide 20 L (22-30) mmol/L BUN 52 H (7-17) mg/dL Glucose 200 H (74-99) mg/dL POC Glucose (mg/dL) (70-110) mg/dL Calcium 8.2 L (8.4-10.2) mg/dL AST (14-36) U/L Alkaline Phosphatase (38-126) U/L Total Protein (6.3-8.2) g/dL Urine Appearance (Clear) Urine pH (5.0-8.0) Urine Protein (Negative) Urine Glucose (UA) (Negative) Urine Blood (Negative) Ur Leukocyte Esterase (Negative) Urine RBC (0-5) /hpf Urine WBC (0-5) /hpf Triple Phos Crystals (None) /hpf Urine Bacteria (None) /hpf Urine Mucus (None) /hpf 02/22/ Range/Units 11:24 WBC (4.50-10.00) 10*3/uL RBC (4.10-5.20) 10*6/uL Hgb (12.0-15.0) g/dL Hct (37.2-46.3) % MCV (80.0-97.0) fL MCH (27.0-32.0) pg MCHC (32.0-37.0) g/dL Immature Gran # (0.00-0.04) 10*3/uL Neutrophils # (1.80-7.70) 10*3/uL Lymphocytes # (0.90-5.00) 10*3/uL Monocytes # (0.20-1.00) 10*3/uL Eosinophils # (0.04-0.35) 10*3/uL ABG pCO2 (35-45) mmHg ABG pO2 (83-108) mmHg ABG Total CO2 (19-24) mmol/L ABG O2 Saturation (94-97) % Hemoglobin (11.4-16.0) gm/dL Sodium (137-145) mmol/L Carbon Dioxide (22-30) mmol/L BUN (7-17) mg/dL Glucose (74-99) mg/dL POC Glucose (mg/dL) 219 H (70-110) mg/dL Calcium (8.4-10.2) mg/dL AST (14-36) U/L Alkaline Phosphatase (38-126) U/L Total Protein (6.3-8.2) g/dL Urine Appearance (Clear) Urine pH (5.0-8.0) Urine Protein (Negative) Urine Glucose (UA) (Negative) Urine Blood (Negative) Ur Leukocyte Esterase (Negative) Urine RBC (0-5) /hpf Urine WBC (0-5) /hpf Triple Phos Crystals (None) /hpf Urine Bacteria (None) /hpf Urine Mucus (None) /hpf Diabetes panel 02/21/25 02/22/25 Range/Units 17:43 05:03 Sodium 133 L 132 L (137-145) mmol/L Potassium 4.0 3.8 (3.5-5.1) mmol/L Chloride 98 101 (98-107) mmol/L Carbon Dioxide 27 20 L (22-30) mmol/L BUN 54 H 52 H (7-17) mg/dL Creatinine 0.99 1.02 (0.52-1.04) mg/dL Glucose 193 H 200 H (74-99) mg/dL Calcium 8.5 8.2 L (8.4-10.2) mg/dL AST 40 H (14-36) U/L ALT 34 (4-34) U/L Alkaline Phosphatase 130 H (38-126) U/L Total Protein 8.3 H (6.3-8.2) g/dL Albumin 3.5 (3.5-5.0) g/dL Calcium panel 02/21/25 02/22/25 Range/Units 17:43 05:03 Calcium 8.5 8.2 L (8.4-10.2) mg/dL Albumin 3.5 (3.5-5.0) g/dL Pituitary panel 02/21/25 02/22/25 Range/Units 17:43 05:03 Sodium 133 L 132 L (137-145) mmol/L Potassium 4.0 3.8 (3.5-5.1) mmol/L Chloride 98 101 (98-107) mmol/L Carbon Dioxide 27 20 L (22-30) mmol/L BUN 54 H 52 H (7-17) mg/dL Creatinine 0.99 1.02 (0.52-1.04) mg/dL Glucose 193 H 200 H (74-99) mg/dL Calcium 8.5 8.2 L (8.4-10.2) mg/dL Adrenal panel 02/21/25 02/22/25 Range/Units 17:43 05:03 Sodium 133 L 132 L (137-145) mmol/L Potassium 4.0 3.8 (3.5-5.1) mmol/L Chloride 98 101 (98-107) mmol/L Carbon Dioxide 27 20 L (22-30) mmol/L BUN 54 H 52 H (7-17) mg/dL Creatinine 0.99 1.02 (0.52-1.04) mg/dL Glucose 193 H 200 H (74-99) mg/dL Calcium 8.5 8.2 L (8.4-10.2) mg/dL Total Bilirubin 1.3 (0.2-1.3) mg/dL AST 40 H (14-36) U/L ALT 34 (4-34) U/L Alkaline Phosphatase 130 H (38-126) U/L Total Protein 8.3 H (6.3-8.2) g/dL Albumin 3.5 (3.5-5.0) g/dL - Imaging CT scan - abdomen: report reviewed, image reviewed Assessment and Plan (1) Calculus of kidney Current Visit: Yes Status: Acute Code(s): N20.0 - CALCULUS OF KIDNEY SNOMED Code(s): 80841972 (2) Acute pyelonephritis Current Visit: Yes Status: Acute Code(s): N10 - ACUTE PYELONEPHRITIS SNOMED Code(s): 33676756 Plan: I have reviewed the patient's CT scan, which shows numerous bilateral renal calculi. Interestingly, CT scan in July 2024 showed no evidence of urolithiasis. On the left side, there appeared to be several UPJ calculi which may be obstructing. Additionally, air is seen in the collecting systems, as well as the bladder. I suspect the patient may have a chronic Proteus UTI comp licated by an indwelling Streeter catheter, which has ascended into the kidneys allowing the formation of struvite calculi. I have recommended to the patient that she undergo cystoscopy with bilateral ureteral stent insertion. The rationale for this was discussed in detail with her, and also with her son by phone. Potential risks were also reviewed, and they are agreeable to this procedure, which will be performed this afternoon. Incidentally, the CT scan does show the Streeter catheter within the bladder, but the bladder does not appear to be completely decompressed and this will be addressed as well at the time of cystoscopy. Time with Patient: Greater than 30
[2025-02-22] MEDS: LACTATED RINGERS 1,000 ML IV ONE ×3 (14:52→17:59)
[2025-02-22] MEDS ORDERED: PROPOFOL 10 MG/ML 20 ML VIAL IV ONE (14:52)
[2025-02-22 15:49] LABS: Glucose,Whole Blood 118 mg/dL (70-110)
--- NOTE | 2025-02-22 16:02 | P.OP ---
Date of Procedure: 02/22/25 Preoperative Diagnosis: Bladder calculi, renal calculi, acute pyelonephritis Postoperative Diagnosis: Same Procedure(s) Performed: Cystoscopy, removal of bladder calculi, bilateral ureteral stent insertion Anesthesia: MAC Surgeon: Dewey Williamson Estimated Blood Loss (ml): 0 IV fluids (ml): 900 Pathology: none sent Condition: stable Disposition: PACU Indications for Procedure: The patient is an 84-year-old white female being treated for sepsis. CT scan shows air within the bladder and the collecting systems. A bladder calculus is seen, along with bilateral renal calculi. Blood cultures show Proteus. It is presumed that the patient has sepsis of urinary origin complicated by infected renal calculi, and she now comes for cystoscopy with stent placement. Operative Findings: 2 small bladder calculi removed. These appear to be of struvite composition. Successful bilateral ureteral stent insertion. Purulent urine drains from the left renal pelvis (a specimen was collected and sent for C&S). Description of Procedure: The patient was taken to the operating room and placed in the dorsolithotomy position, with legs supported in Kirk stirrups. The external genitalia was prepped and draped sterilely. The 30 lens was used to introduce the 22-Niuean Stortz cystoscopic sheath through the urethra and into the bladder under direct vision. The bladder was examined in its entirety. Both ureteral orifices were of normal anatomic location and configuration. No tumors were seen. There was evidence of catheter cystitis, and 2 small bladder calculi were seen. A 0.035 inch Glidewire was passed through the cystoscope. The left ureteral orifice was cannulated, and the Glidewire was slowly advanced up to the renal pelvis. Resistance was met at the UPJ, but it was possible to manipulate the tip of the Glidewire beyond this and into the renal pelvis, where it coiled. A 24 cm, 6- Niuean double-J ureteral stent was placed over the wire. Proper stent positioning was verified fluoroscopically and endoscopically. The same was then repeated on the contralateral side, using a 22 cm, 6 Niuean double-J ureteral stent. Thick, purulent urine drained through the left ureteral stent. With the beak of the cystoscope immediately adjacent to the distal end of the left ureteral stent, urine was collected and sent for C&S. The cystoscope was removed, and an 18 Niuean Streeter catheter was placed. The patient tolerated the procedure well and was taken to the recovery room in stable condition.
--- NOTE | 2025-02-22 16:26 | FL ---
EXAMINATION TYPE: FL guidance operating room DATE OF EXAM: 02/22/2025 FLUOROSCOPY BILATERAL STENT PLACEMENT' 12.3 SECONDS, DAP [id number], 2 IMAGES SENT, DR [facility], Workstation: [id number], 02/22/2025 4:23 PM
[2025-02-22] MEDS: DILTIAZEM 5 MG/ML 5 ML VIAL IVP STA (17:05)
[2025-02-22 20:25] LABS: Glucose,Whole Blood 119 mg/dL (70-110)
--- NOTE | 2025-02-22 21:35 | P.HPIM ---
History of Present Illness H&P Date: 02/22/25 This is a 84-year-old female who presented to the emergency department from [facility] where she resides with abdominal pain with multiple episodes of nausea and vomiting with concerns of possible ileus and came here for further evaluation. Patient follows with Dr. Gasotn in the outpatient setting with a past medical history of atrial fibrillation, CVA/TIA, diabetes mellitus, hypertension, osteoarthritis, history of uterine cancer with incontinence of urine and recurrent urinary tract infections. Patient with concerns of sepsis and hypotensive requiring pressor support and also noted to be obtunded shortly after and in a team was called and noted to have agonal respirations and patient was ultimately intubated to protect airway and brought to the ICU. Labs reviewed on admission showing a mildly elevated white count of 10.03 although this morning is worsening at 20.94, hemoglobin 11.2 and repeat 8.8, sodium 133, potassium 4.0, BUN 54 with a creatinine of 0.99, magnesium 2.0, AST mildly elevated at 40, ALT 34, urinalysis performed with large leukocyte esterase and high WBCs with concerns of urinary tract infection and patient started on Rocephin with infectious disease on consult. 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 EKG showed atrial fibrillation with RVR and was initially started on Cardizem which has been discontinued and currently rate controlled. Pulmonary oil rig driller was consulted for ICU admission along with infectious disease and urology. Patient being admitted with sepsis secondary to UTI with concerns of septic shock requiring pressor support. REVIEW OF SYSTEMS: CONSTITUTIONAL: No fever, no malaise, reports of fatigue. HEENT: No recent visual problems or hearing problems. Denied any sore throat. CARDIOVASCULAR: No chest pain, orthopnea, PND, no palpitations, no syncope. PULMONARY: No reports of shortness of breath, no cough, no hemoptysis. Reports of dry raspy voice and sore throat GASTROINTESTINAL: No diarrhea, no further reports of nausea, no further reports of vomiting, reports of diffuse abdominal pain. NEUROLOGICAL: No headaches, reports of generalized weakness, no numbness. HEMATOLOGICAL: Denies any bleeding or petechiae. GENITOURINARY: Denies any burning micturition, frequency, or urgency. Reports previous painful urination MUSCULOSKELETAL/RHEUMATOLOGICAL: Denies any joint pain, swelling, or any muscle pain. ENDOCRINE: Denies any polyuria or polydipsia. The rest of the 14-point review of systems is negative. PHYSICAL EXAMINATION: GENERAL: The patient is lethargic although arousable, alert and oriented x to, fatigues easily, recently just extubated this morning. Well developed, elderly appearing, ill-appearing HEENT: Pupils are round and equally reacting to light. EOMI. No scleral icterus. No conjunctival pallor. Normocephalic, atraumatic. No pharyngeal erythema. No thyromegaly. CARDIOVASCULAR: S1 and S2 muffled PULMONARY: Diminished breath sounds bilaterally otherwise chest is clear to auscultation, no wheezing or crackles. ABDOMEN: Soft, nontender, nondistended, normoactive bowel sounds. No palpable organomegaly. MUSCULOSKELETAL: No joint swelling or deformity. EXTREMITIES: No cyanosis, clubbing, or pedal edema. NEUROLOGICAL: Gross neurological examination did not reveal any focal deficits. Diffusely weak SKIN: No rashes. Assessment: Acute urinary tract infection with pyelonephritis, present on admission, secondary to indwelling Streeter catheter with sepsis and septic shock requiring ICU admission Kidney calculus with left-sided emphysematous pyelitis and left-sided pneumonia ureter Hypotension requiring pressor support secondary to above Increased unresponsiveness requiring mechanical ventilation to protect airway, recently extubated this morning and improved currently maintained on 3 L via nasal cannula Acute hypoxic respiratory failure secondary to sepsis Leukocytosis, secondary to #1 History of CVA/TIA with right-sided deficit and aphasia History of atrial fibrillation with a brief episode of rapid ventricular rate, currently rate controlled Diabetes mellitus type 2 history History of hypertension History of osteoarthritis History of uterine cancer GI prophylaxis DVT prophylaxis Full code Plan: Patient was admitted with urinary tract infection with concerns of sepsis, present on admission secondary to chronic indwelling Streeter catheter and patient resides at an [facility]. Patient did have an x-ray in the outpatient setting with concerns of possible ileus and sent here for further evaluation as patient was having multiple episodes of nausea and vomiting along with liquid stools and abdominal pain Patient with chronic indwelling Streeter catheter with issues since CVA last year with multiple recurrent UTIs and some Proteus resistance and previous urine cultures. Blood cultures pending at this time as well as urine cultures and infectious disease following maintained on IV antibiotics in the form of cefepime and vancomycin Urology consulted discussing cystoscopy with possible bilateral ureter stent placement. Will await report Patient was intubated and meeting weaning parameters per pulmonary oil rig driller and patient was just extubated currently maintained on 3 L and is awake, answering questions and following commands appropriately. Pressor support is currently being weaned All medications will be reviewed and resumed as appropriate Continue n.p.o. for now Follow-up on repeat labs and replace electrolytes per protocol Continue monitoring Accu-Cheks AC and at bedtime will add sliding scale and adjust accordingly Cardiology also consulted as patient did have a brief episode of atrial fibrillation with RVR with history of A-fib, currently rate controlled and will continue telemetry monitoring Plan will be for return to [facility] on discharge and will consult case management/social work to arrange once patient is stabilized. The impression and plan of care has been dictated by Ivy Araya, Nurse Prac titioner as directed. Dr. Nitin MD I have performed a history and examination and MDM of this patient, discussed the same with the dictator, and agree with the dictator's assessment and plan as written ,documented as a scribe. Based on total visit time, I have performed more than 50% of the visit. 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 Past Anesthesia/Blood Transfusion Reactions: No Reported Reaction Past Psychological History: No Psychological Hx Reported Smoking Status: Never smoker Past Alcohol Use History: None Reported Past Drug Use History: None Reported - Past Family History Mother Family Medical History: Coronary Artery Disease (CAD), Diabetes Mellitus, Hypertension, Mitral Valve Prolapse (MVP) Father Family Medical History: Hypertension Additional Family Medical History / Comment(s): father hip surgery Medications and Allergies Home Medications Medication Instructions Recorded Confirmed Type Empagliflozin [Jardiance] 10 mg PEG/G-TUBE DAILY 03/04/24 02/22/25 History Atorvastatin [Lipitor] 40 mg PEG/G-TUBE DAILY 06/19/24 02/22/25 History Famotidine [Pepcid] 20 mg PEG/G-TUBE DAILY 06/19/24 02/22/25 History Magnesium Hydroxide [Milk of 7,200 mg PEG/G-TUBE DAILY PRN 06/19/24 02/22/25 History Magnesia Concentrate] Na Phos,M-B/Na Phos,Di-Ba [Fleet 133 ml RECTAL DAILY PRN 06/19/24 02/22/25 History Adult] Saliva Stimulant Comb. No.3 1 tsp MUCOUS MEM Q12H PRN 06/19/24 02/22/25 History [Biotene Moisturizing Mouth] bisacodyL [Dulcolax] 10 mg RECTAL DAILY PRN 06/19/24 02/22/25 History carvediloL [Coreg] 12.5 mg PEG/G-TUBE BID 06/19/24 02/22/25 History Acetaminophen Tab [Tylenol] 500 mg PEG/G-TUBE Q6HR PRN 07/27/24 02/22/25 History Furosemide [Lasix] 20 mg PEG/G-TUBE DAILY 07/27/24 02/22/25 History INSULIN LISPRO (humaLOG) [humaLOG] See Protocol SQ ACHS 07/27/24 02/22/25 History Apixaban [Eliquis] 2.5 mg PEG/G-TUBE BID 10/11/24 02/22/25 History Ferrous Sulfate Oral Elixir 450 mg PEG/G-TUBE DAILY 10/11/24 02/22/25 History [Feosol Liquid] Ipratropium-Albuterol Nebulize 3 ml INHALATION RT-TID PRN 10/11/24 02/22/25 History [Duoneb 0.5 mg-3 mg/3 ml Soln] Lactulose [Cephulac] 30 gm PO DAILY 10/11/24 02/22/25 History Metoclopramide [Reglan] 5 mg PEG/G-TUBE DAILY 10/11/24 02/22/25 History Simethicone 40 mg/0.6 ml Drops 40 mg PEG/G-TUBE QID 10/11/24 02/22/25 History [Mylicon Drops] guaiFENesin [guaiFENesin ER] 600 mg PEG/G-TUBE Q12H PRN 10/11/24 02/22/25 History Insulin Glargine,Hum.rec.anlog 5 units SQ DAILY 02/22/25 02/22/25 History [Lantus Solostar Pen] Lactulose [Constulose] 30 gm PEG/G-TUBE Q12H PRN 02/22/25 02/22/25 History Loperamide [Imodium] 4 mg PEG/G-TUBE QID PRN 02/22/25 02/22/25 History Allergies Allergy/AdvReac Type Severity Reaction Status Date / Time bacitracin Allergy Rash/Hives Verified 02/22/25 11:19 [From Neosporin ([id number])] ibuprofen Allergy Anaphylaxis Verified 02/22/25 11:19 & Rash all over neomycin Allergy Rash/Hives Verified 02/22/25 11:19 [From Neosporin ([id number])] polymyxin B Allergy Rash/Hives Verified 02/22/25 11:19 [From Neosporin ([id number])] Physical Exam Vitals: Vital Signs Temp Pulse Pulse Resp BP Pulse Ox FiO2 02/22/25 09:00 89 34 H 99/65 100 02/22/25 08:45 89 30 H 95/65 100 02/22/25 08:30 96 21 125/64 100 02/22/25 08:15 100 18 138/90 100 02/22/25 08:08 110 H 02/22/25 08:00 97.6 F 110 H 31 H 118/71 100 50 02/22/25 07:55 103 H 02/22/25 07:51 50 02/22/25 07:45 84 18 122/79 100 02/22/25 07:30 105 H 18 104/82 100 02/22/25 07:15 100 18 108/83 100 02/22/25 07:00 118 H 18 122/80 100 50 02/22/25 06:45 105 H 18 102/71 100 50 02/22/25 06:30 105 H 18 124/88 100 50 02/22/25 06:15 94 18 103/66 100 50 02/22/25 06:00 110 H 18 92/72 100 50 02/22/25 05:45 117 H 18 100/76 100 50 02/22/25 05:30 107 H 18 88/65 100 50 02/22/25 05:15 108 H 18 117/73 100 50 02/22/25 05:00 105 H 18 104/64 100 50 02/22/25 04:45 104 H 18 102/64 100 50 02/22/25 04:30 111 H 18 100 50 02/22/25 04:15 105 H 18 98/58 100 50 02/22/25 04:13 50 02/22/25 04:00 106 H 115 H 18 96/63 100 50 02/22/25 03:45 120 H 18 82/69 100 50 02/22/25 03:30 120 H 18 84/53 100 50 02/22/25 03:15 117 H 18 66/33 100 50 02/22/25 03:12 97.6 F 114 H 18 100 50 02/22/25 03:00 116 H 18 79/51 100 02/22/25 02:45 97.6 F 18 136/92 100 02/22/25 02:30 120 H 18 83/32 99 02/22/25 02:25 117 H 59/41 98 02/22/25 02:20 120 H 74/51 99 02/22/25 02:15 118 H 74/52 99 02/22/25 02:00 125 H 73/43 99 02/22/25 01:49 50 02/22/25 01:45 128 H 78/50 99 02/22/25 01:30 128 H 69/49 99 02/22/25 01:15 112 H 68/39 99 02/22/25 01:00 111 H 79/48 99 02/22/25 00:37 100 02/22/25 00:36 100 02/22/25 00:30 118 H 121/71 99 02/22/25 00:24 107 H 18 91/60 99 02/22/25 00:04 101 H 12 67/34 66 L 02/21/25 23:55 92 18 107/48 94 L 02/21/25 23:45 98.5 F 93 18 108/48 02/21/25 22:51 102.6 F H 121 H 16 114/54 92 L 02/21/25 21:00 98 18 142/91 99 02/21/25 18:56 98.6 F 105 H 18 117/61 98 02/21/25 16:52 98.5 F 97 16 122/73 99 Intake and Output 02/21/25 02/22/25 02/22/25 22:59 06:59 14:59 Intake Total 727.994 353.087 Output Total 97 80 Balance 630.994 273.087 Intake: IV 260 Lactated Ringers 1,000 ml 260 @ 130 mls/hr IV .Q7H42M NERISSA Rx#:[id number] Intake, IV Titration 727.994 93.087 Amount Diltiazem 125 mg In 1.417 Dextrose 5% in Water 100 ml @ 5 MG/HR 5 mls/hr IV .Q24H NERISSA Rx#:[id number] Lactated Ringers 1,000 ml 650 @ 130 mls/hr IV .Q7H42M NERISSA Rx#:[id number] Norepinephrine 4 mg In 60.761 82.312 Sodium Chloride 0.9% 250 ml @ 0.03 MCG/KG/MIN 7. 532 mls/hr IV .Q24H [facility]ERISSA Rx#:[id number] fentaNYL (PF). 1,000 mcg 7.414 In Sodium Chloride 0.9% 80 ml @ 0.5 MCG/KG/HR 3. 295 mls/hr IV .Q24H [facility]ERISSA Rx#:[id number] propofoL 1,000 mg In 8.402 10.775 Empty Bag 1 bag @ 10 MCG/ KG/MIN 3.954 mls/hr IV . Q24H NERISSA Rx#:[id number] Oral 0 Output: Urine 97 80 Other: Voiding Method Indwelling Catheter # Voids 1 Weight 65.9 kg 65.9 kg Results CBC & Chem 7: 02/22/25 05:03 02/22/25 05:03 Labs: Abnormal Lab Results - Last 24 Hours (Table) 02/21/25 02/21/25 02/21/25 Range/Units 17:43 17:43 19:43 WBC 10.03 H (4.50-10.00) 10*3/uL RBC (4.10-5.20) 10*6/uL Hgb 11.2 L (12.0-15.0) g/dL Hct 35.7 L (37.2-46.3) % MCV 77.8 L (80.0-97.0) fL MCH 24.4 L (27.0-32.0) pg MCHC 31.4 L (32.0-37.0) g/dL Immature Gran # (0.00-0.04) 10*3/uL Neutrophils # 8.72 H (1.80-7.70) 10*3/uL Lymphocytes # 0.75 L (0.90-5.00) 10*3/uL Monocytes # (0.20-1.00) 10*3/uL Eosinophils # 0.02 L (0.04-0.35) 10*3/uL ABG pCO2 (35-45) mmHg ABG pO2 (83-108) mmHg ABG O2 Saturation (94-97) % Hemoglobin (11.4-16.0) gm/dL Sodium 133 L (137-145) mmol/L Carbon Dioxide (22-30) mmol/L BUN 54 H (7-17) mg/dL Glucose 193 H (74-99) mg/dL POC Glucose (mg/dL) (70-110) mg/dL Calcium (8.4-10.2) mg/dL AST 40 H (14-36) U/L Alkaline Phosphatase 130 H (38-126) U/L Total Protein 8.3 H (6.3-8.2) g/dL Urine Appearance Turbid H (Clear) Urine pH 8.5 H (5.0-8.0) Urine Protein 1+ H (Negative) Urine Glucose (UA) 4+ H (Negative) Urine Blood Moderate H (Negative) Ur Leukocyte Esterase Large H (Negative) Urine RBC 41 H (0-5) /hpf Urine WBC 116 H (0-5) /hpf Triple Phos Crystals Many H (None) /hpf Urine Bacteria Few H (None) /hpf Urine Mucus Rare H (None) /hpf 02/22/25 02/22/25 02/22/25 Range/Units 00:13 01:36 02:48 WBC (4.50-10.00) 10*3/uL RBC (4.10-5.20) 10*6/uL Hgb (12.0-15.0) g/dL Hct (37.2-46.3) % MCV (80.0-97.0) fL MCH (27.0-32.0) pg MCHC (32.0-37.0) g/dL Immature Gran # (0.00-0.04) 10*3/uL Neutrophils # (1.80-7.70) 10*3/uL Lymphocytes # (0.90-5.00) 10*3/uL Monocytes # (0.20-1.00) 10*3/uL Eosinophils # (0.04-0.35) 10*3/uL ABG pCO2 34 L (35-45) mmHg ABG pO2 408 H (83-108) mmHg ABG O2 Saturation >100.0 H (94-97) % Hemoglobin 8.8 L (11.4-16.0) gm/dL Sodium (137-145) mmol/L Carbon Dioxide (22-30) mmol/L BUN (7-17) mg/dL Glucose (74-99) mg/dL POC Glucose (mg/dL) 233 H 248 H (70-110) mg/dL Calcium (8.4-10.2) mg/dL AST (14-36) U/L Alkaline Phosphatase (38-126) U/L Total Protein (6.3-8.2) g/dL Urine Appearance (Clear) Urine pH (5.0-8.0) Urine Protein (Negative) Urine Glucose (UA) (Negative) Urine Blood (Negative) Ur Leukocyte Esterase (Negative) Urine RBC (0-5) /hpf Urine WBC (0-5) /hpf Triple Phos Crystals (None) /hpf Urine Bacteria (None) /hpf Urine Mucus (None) /hpf 02/22/25 02/22/25 Range/Units 05:03 05:03 WBC 20.94 H (4.50-10.00) 10*3/uL RBC 3.58 L (4.10-5.20) 10*6/uL Hgb 8.8 L D (12.0-15.0) g/dL Hct 29.1 L (37.2-46.3) % MCV (80.0-97.0) fL MCH 24.6 L (27.0-32.0) pg MCHC 30.2 L (32.0-37.0) g/dL Immature Gran # 0.10 H (0.00-0.04) 10*3/uL Neutrophils # 18.47 H (1.80-7.70) 10*3/uL Lymphocytes # 0.69 L (0.90-5.00) 10*3/uL Monocytes # 1.61 H (0.20-1.00) 10*3/uL Eosinophils # 0.00 L (0.04-0.35) 10*3/uL ABG pCO2 (35-45) mmHg ABG pO2 (83-108) mmHg ABG O2 Saturation (94-97) % Hemoglobin (11.4-16.0) gm/dL Sodium 132 L (137-145) mmol/L Carbon Dioxide 20 L (22-30) mmol/L BUN 52 H (7-17) mg/dL Glucose 200 H (74-99) mg/dL POC Glucose (mg/dL) (70-110) mg/dL Calcium 8.2 L (8.4-10.2) mg/dL AST (14-36) U/L Alkaline Phosphatase (38-126) U/L Total Protein (6.3-8.2) g/dL Urine Appearance (Clear) Urine pH (5.0-8.0) Urine Protein (Negative) Urine Glucose (UA) (Negative) Urine Blood (Negative) Ur Leukocyte Esterase (Negative) Urine RBC (0-5) /hpf Urine WBC (0-5) /hpf Triple Phos Crystals (None) /hpf Urine Bacteria (None) /hpf Urine Mucus (None) /hpf Thrombosis Risk Factor Assmnt - Choose All That Apply Any of the Below Risk Factors Present?: Yes Each Factor Represents 1 point: Obesity (BMI >25), Swollen legs (current) Other Risk Factors: Yes Each Risk Factor Represents 3 Points: Age 75 years or older Thrombosis Risk Factor Assessment Total Risk Factor Score: 5 Thrombosis Risk Factor Assessment Level: High Risk
[2025-02-22] MEDS ORDERED: NA PHOS,M-B/NA PHOS,DI-BA 133 ML ENEMA RECTAL PRN (21:36)
[2025-02-22] MEDS ORDERED: DRY MOUTH SPRAY 59 SPRAY/59 ML SPRAY MUCOUS MEM PRN (21:36)
[2025-02-22] MEDS ORDERED: LOPERAMIDE 2 MG CAP PEG/G-TUBE PRN (21:36)
[2025-02-22] MEDS ORDERED: guaiFENesin 600 MG TABLET.ER PO PRN (21:36)
[2025-02-22] MEDS ORDERED: bisacodyL 10 MG SUPP RECTAL PRN (21:36)
[2025-02-22] MEDS ORDERED: LACTULOSE 20 GM/30 ML CUP PO PRN (21:36)
[2025-02-22] MEDS: SIMETHICONE 40 MG/0.6 ML DROPS 2,000 MG/30 ML BOTTLE PEG/G-TUBE SCH (22:05)
--- NOTE | 2025-02-22 22:19 | P.CONS ---
History of Present Illness - Reason for Consult Consult date: 02/22/25 UTI Requesting physician: Charly Sargent - Chief Complaint Abdominal pain nausea vomiting x 1 day - History of Present Illness Patient is a 84-year-old female with a past medical he significant for diabetes mellitus hypertension osteoarthritis CVA TIA and atrial fibrillation, history of recurrent UTI patient was brought into the hospital for evaluation of abdominal pain pain has been mostly on the right sided upper abdominal area apparently the patient did have x-ray done at the halfway today shows evidence of previous and the patient was subsequently sent to the ER to rule out bowel obstruction patient was complaining of pain to be sharp moderate to severe intensity with associated nausea did have multiple episode of vomiting also have some loose stools no high-grade fever on presentation to the hospital patient was initially febrile subsequently did spike a fever of 102.6 F patient was tachycardic hypotensive requiring pressor support and she did get intubated and transferred to the ICU and got extubated this morning patient blood work include white count of 20,000 with a left shift creatinine is 1.02 electrolytes are normal sodium slightly low AST mildly elevated ALT is normal urine is significantly positive patient was started on ceftriaxone infectious disease was consulted for further management of antibiotic therapy patient did have abdominal pelvis CT findings suggestive of debris's gas within the urinary bladder with Streeter catheter in place additional calculus within the bladder left-sided emphysematous pyelitis and left-sided normal ureter finding concerning for ascending infection versus recent instrumentation Review of Systems Positive point and negatives has been mentioned in the HPI, complete review of systems was performed and all other systems are negative Past Medical History Past Medical History: Atrial Fibrillation, CVA/TIA, Diabetes Mellitus, Hypertension, Osteoarthritis (OA) Additional Past Medical History / Comment(s): uterine cancer, incontinent of urine, 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 Past Anesthesia/Blood Transfusion Reactions: No Reported Reaction Past Psychological History: No Psychological Hx Reported Smoking Status: Never smoker Past Alcohol Use History: None Reported Past Drug Use History: None Reported - Past Family History Mother Family Medical History: Coronary Artery Disease (CAD), Diabetes Mellitus, Hypertension, Mitral Valve Prolapse (MVP) Father Family Medical History: Hypertension Additional Family Medical History / Comment(s): father hip surgery Medications and Allergies Home Medications Medication Instructions Recorded Confirmed Type Empagliflozin [Jardiance] 10 mg PEG/G-TUBE DAILY 03/04/24 02/22/25 History Atorvastatin [Lipitor] 40 mg PEG/G-TUBE DAILY 06/19/24 02/22/25 History Famotidine [Pepcid] 20 mg PEG/G-TUBE DAILY 06/19/24 02/22/25 History Magnesium Hydroxide [Milk of 7,200 mg PEG/G-TUBE DAILY PRN 06/19/24 02/22/25 History Magnesia Concentrate] Na Phos,M-B/Na Phos,Di-Ba [Fleet 133 ml RECTAL DAILY PRN 06/19/24 02/22/25 History Adult] Saliva Stimulant Comb. No.3 1 tsp MUCOUS MEM Q12H PRN 06/19/24 02/22/25 History [Biotene Moisturizing Mouth] bisacodyL [Dulcolax] 10 mg RECTAL DAILY PRN 06/19/24 02/22/25 History carvediloL [Coreg] 12.5 mg PEG/G-TUBE BID 06/19/24 02/22/25 History Acetaminophen Tab [Tylenol] 500 mg PEG/G-TUBE Q6HR PRN 07/27/24 02/22/25 History Furosemide [Lasix] 20 mg PEG/G-TUBE DAILY 07/27/24 02/22/25 History INSULIN LISPRO (humaLOG) [humaLOG] See Protocol SQ ACHS 07/27/24 02/22/25 History Apixaban [Eliquis] 2.5 mg PEG/G-TUBE BID 10/11/24 02/22/25 History Ferrous Sulfate Oral Elixir 450 mg PEG/G-TUBE DAILY 10/11/24 02/22/25 History [Feosol Liquid] Ipratropium-Albuterol Nebulize 3 ml INHALATION RT-TID PRN 10/11/24 02/22/25 History [Duoneb 0.5 mg-3 mg/3 ml Soln] Lactulose [Cephulac] 30 gm PO DAILY 10/11/24 02/22/25 History Metoclopramide [Reglan] 5 mg PEG/G-TUBE DAILY 10/11/24 02/22/25 History Simethicone 40 mg/0.6 ml Drops 40 mg PEG/G-TUBE QID 10/11/24 02/22/25 History [Mylicon Drops] guaiFENesin [guaiFENesin ER] 600 mg PEG/G-TUBE Q12H PRN 10/11/24 02/22/25 History Insulin Glargine,Hum.rec.anlog 5 units SQ DAILY 02/22/25 02/22/25 History [Lantus Solostar Pen] Lactulose [Constulose] 30 gm PEG/G-TUBE Q12H PRN 02/22/25 02/22/25 History Loperamide [Imodium] 4 mg PEG/G-TUBE QID PRN 02/22/25 02/22/25 History Allergies Allergy/AdvReac Type Severity Reaction Status Date / Time bacitracin Allergy Rash/Hives Verified 02/22/25 11:19 [From Neosporin ([id number])] ibuprofen Allergy Anaphylaxis Verified 02/22/25 11:19 & Rash all over neomycin Allergy Rash/Hives Verified 02/22/25 11:19 [From Neosporin ([id number])] polymyxin B Allergy Rash/Hives Verified 02/22/25 11:19 [From Neosporin ([id number])] Physical Exam Vitals: Vital Signs Temp Pulse Pulse Resp BP Pulse Ox FiO2 02/22/25 11:30 104 H 18 109/76 100 02/22/25 11:15 96 14 118/70 100 02/22/25 11:00 22 135/69 100 02/22/25 10:45 115 H 46 H 161/83 100 02/22/25 10:30 107 H 54 H 134/79 100 02/22/25 10:15 111 H 43 H 134/99 100 40 02/22/25 10:00 120 H 13 144/88 100 02/22/25 09:45 111 H 17 145/82 100 02/22/25 09:32 40 02/22/25 09:30 116 H 17 112/66 100 02/22/25 09:29 100 02/22/25 09:25 50 02/22/25 09:20 40 02/22/25 09:15 84 18 116/65 100 02/22/25 09:00 89 34 H 99/65 100 02/22/25 08:45 89 30 H 95/65 100 05/30/25 08:30 96 21 125/64 100 02/22/25 08:15 100 18 138/90 100 02/22/25 08:08 110 H 02/22/25 08:00 97.6 F 110 H 31 H 118/71 100 50 02/22/25 07:55 103 H 02/22/25 07:51 50 02/22/25 07:45 84 18 122/79 100 02/22/25 07:30 105 H 18 104/82 100 02/22/25 07:15 100 18 108/83 100 02/22/25 07:00 118 H 18 122/80 100 50 02/22/25 06:45 105 H 18 102/71 100 50 02/22/25 06:30 105 H 18 124/88 100 50 02/22/25 06:15 94 18 103/66 100 50 02/22/25 06:00 110 H 18 92/72 100 50 02/22/25 05:45 117 H 18 100/76 100 50 02/22/25 05:30 107 H 18 88/65 100 50 02/22/25 05:15 108 H 18 117/73 100 50 02/22/25 05:00 105 H 18 104/64 100 50 02/22/25 04:45 104 H 18 102/64 100 50 02/22/25 04:30 111 H 18 100 50 02/22/25 04:15 105 H 18 98/58 100 50 02/22/25 04:13 50 02/22/25 04:00 106 H 115 H 18 96/63 100 50 02/22/25 03:45 120 H 18 82/69 100 50 02/22/25 03:30 120 H 18 84/53 100 50 02/22/25 03:15 117 H 18 66/33 100 50 02/22/25 03:12 97.6 F 114 H 18 100 50 02/22/25 03:00 116 H 18 79/51 100 02/22/25 02:45 97.6 F 18 136/92 100 02/22/25 02:30 120 H 18 83/32 99 02/22/25 02:25 117 H 59/41 98 02/22/25 02:20 120 H 74/51 99 02/22/25 02:15 118 H 74/52 99 02/22/25 02:00 125 H 73/43 99 02/22/25 01:49 50 02/22/25 01:45 128 H 78/50 99 02/22/25 01:30 128 H 69/49 99 02/22/25 01:15 112 H 68/39 99 02/22/25 01:00 111 H 79/48 99 02/22/25 00:37 100 02/22/25 00:36 100 02/22/25 00:30 118 H 121/71 99 02/22/25 00:24 107 H 18 91/60 99 02/22/25 00:04 101 H 12 67/34 66 L 02/21/25 23:55 92 18 107/48 94 L 02/21/25 23:45 98.5 F 93 18 108/48 02/21/25 22:51 102.6 F H 121 H 16 114/54 92 L 02/21/25 21:00 98 18 142/91 99 02/21/25 18:56 98.6 F 105 H 18 117/61 98 02/21/25 16:52 98.5 F 97 16 122/73 99 Intake and Output 02/21/25 02/22/25 02/22/25 22:59 06:59 14:59 Intake Total 727.994 518.260 Output Total 97 180 Balance 630.994 338.260 Intake: IV 390 Lactated Ringers 1,000 ml 390 @ 130 mls/hr IV .Q7H42M [facility] Rx#:[id number] Intake, IV Titration 727.994 128.260 Amount Diltiazem 125 mg In 1.417 Dextrose 5% in Water 100 ml @ 5 MG/HR 5 mls/hr IV .Q24H [facility] Rx#:[id number] Lactated Ringers 1,000 ml 650 @ 130 mls/hr IV .Q7H42M [facility] Rx#:[id number] Norepinephrine 4 mg In 60.761 105.788 Sodium Chloride 0.9% 250 ml @ 0.03 MCG/KG/MIN 7. 532 mls/hr IV .Q24H [facility] Rx#:[id number] fentaNYL (PF). 1,000 mcg 7.414 In Sodium Chloride 0.9% 80 ml @ 0.5 MCG/KG/HR 3. 295 mls/hr IV .Q24H [facility] Rx#:[id number] propofoL 1,000 mg In 8.402 22.472 Empty Bag 1 bag @ 10 MCG/ KG/MIN 3.954 mls/hr IV . Q24H [facility] Rx#:[id number] Oral 0 Output: Urine 97 180 Other: Voiding Method Indwelling Catheter Indwelling Catheter # Voids 1 Weight 65.9 kg 65.9 kg GENERAL DESCRIPTION: Elderly female lying in bed, no distress. No tachypnea or accessory muscle of respiration use. HEENT: Shows Pallor , no scleral icterus. Oral mucous membrane is dry. NECK: Trachea central, no thyromegaly. LUNGS: Unlabored breathing. Clear to auscultation anteriorly. No wheeze or crackle. HEART: S1, S2, regular rate and rhythm. No loud murmur ABDOMEN: Soft, no tenderness , guarding or rigidity, EXTREMITIES: No edema of feet. SKIN: No rash, no masses palpable. NEUROLOGICAL: The patient is awake, alert, mood and affect normal. Results CBC & Chem 7: 02/23/25 03:26 02/23/25 12:00 Labs: Abnormal Lab Results - Last 24 Hours (Table) 02/21/25 02/21/25 02/21/25 Range/Units 17:43 17:43 19:43 WBC 10.03 H (4.50-10.00) 10*3/uL RBC (4.10-5.20) 10*6/uL Hgb 11.2 L (12.0-15.0) g/dL Hct 35.7 L (37.2-46.3) % MCV 77.8 L (80.0-97.0) fL MCH 24.4 L (27.0-32.0) pg MCHC 31.4 L (32.0-37.0) g/dL Immature Gran # (0.00-0.04) 10*3/uL Neutrophils # 8.72 H (1.80-7.70) 10*3/uL Lymphocytes # 0.75 L (0.90-5.00) 10*3/uL Monocytes # (0.20-1.00) 10*3/uL Eosinophils # 0.02 L (0.04-0.35) 10*3/uL ABG pCO2 (35-45) mmHg ABG pO2 (83-108) mmHg ABG Total CO2 (19-24) mmol/L ABG O2 Saturation (94-97) % Hemoglobin (11.4-16.0) gm/dL Sodium 133 L (137-145) mmol/L Carbon Dioxide (22-30) mmol/L BUN 54 H (7-17) mg/dL Glucose 193 H (74-99) mg/dL POC Glucose (mg/dL) (70-110) mg/dL Calcium (8.4-10.2) mg/dL AST 40 H (14-36) U/L Alkaline Phosphatase 130 H (38-126) U/L Total Protein 8.3 H (6.3-8.2) g/dL Urine Appearance Turbid H (Clear) Urine pH 8.5 H (5.0-8.0) Urine Protein 1+ H (Negative) Urine Glucose (UA) 4+ H (Negative) Urine Blood Moderate H (Negative) Ur Leukocyte Esterase Large H (Negative) Urine RBC 41 H (0-5) /hpf Urine WBC 116 H (0-5) /hpf Triple Phos Crystals Many H (None) /hpf Urine Bacteria Few H (None) /hpf Urine Mucus Rare H (None) /hpf 02/22/25 02/22/25 02/22/25 Range/Units 00:13 01:36 02:48 WBC (4.50-10.00) 10*3/uL RBC (4.10-5.20) 10*6/uL Hgb (12.0-15.0) g/dL Hct (37.2-46.3) % MCV (80.0-97.0) fL MCH (27.0-32.0) pg MCHC (32.0-37.0) g/dL Immature Gran # (0.00-0.04) 10*3/uL Neutrophils # (1.80-7.70) 10*3/uL Lymphocytes # (0.90-5.00) 10*3/uL Monocytes # (0.20-1.00) 10*3/uL Eosinophils # (0.04-0.35) 10*3/uL ABG pCO2 34 L (35-45) mmHg ABG pO2 408 H (83-108) mmHg ABG Total CO2 (19-24) mmol/L ABG O2 Saturation >100.0 H (94-97) % Hemoglobin 8.8 L (11.4-16.0) gm/dL Sodium (137-145) mmol/L Carbon Dioxide (22-30) mmol/L BUN (7-17) mg/dL Glucose (74-99) mg/dL POC Glucose (mg/dL) 233 H 248 H (70-110) mg/dL Calcium (8.4-10.2) mg/dL AST (14-36) U/L Alkaline Phosphatase (38-126) U/L Total Protein (6.3-8.2) g/dL Urine Appearance (Clear) Urine pH (5.0-8.0) Urine Protein (Negative) Urine Glucose (UA) (Negative) Urine Blood (Negative) Ur Leukocyte Esterase (Negative) Urine RBC (0-5) /hpf Urine WBC (0-5) /hpf Triple Phos Crystals (None) /hpf Urine Bacteria (None) /hpf Urine Mucus (None) /hpf 02/22/25 02/22/25 02/22/25 Range/Units 05:03 05:03 10:25 WBC 20.94 H (4.50-10.00) 10*3/uL RBC 3.58 L (4.10-5.20) 10*6/uL Hgb 8.8 L D (12.0-15.0) g/dL Hct 29.1 L (37.2-46.3) % MCV (80.0-97.0) fL MCH 24.6 L (27.0-32.0) pg MCHC 30.2 L (32.0-37.0) g/dL Immature Gran # 0.10 H (0.00-0.04) 10*3/uL Neutrophils # 18.47 H (1.80-7.70) 10*3/uL Lymphocytes # 0.69 L (0.90-5.00) 10*3/uL Monocytes # 1.61 H (0.20-1.00) 10*3/uL Eosinophils # 0.00 L (0.04-0.35) 10*3/uL ABG pCO2 (35-45) mmHg ABG pO2 174 H (83-108) mmHg ABG Total CO2 25 H (19-24) mmol/L ABG O2 Saturation >100.0 H (94-97) % Hemoglobin 9.7 L (11.4-16.0) gm/dL Sodium 132 L (137-145) mmol/L Carbon Dioxide 20 L (22-30) mmol/L BUN 52 H (7-17) mg/dL Glucose 200 H (74-99) mg/dL POC Glucose (mg/dL) (70-110) mg/dL Calcium 8.2 L (8.4-10.2) mg/dL AST (14-36) U/L Alkaline Phosphatase (38-126) U/L Total Protein (6.3-8.2) g/dL Urine Appearance (Clear) Urine pH (5.0-8.0) Urine Protein (Negative) Urine Glucose (UA) (Negative) Urine Blood (Negative) Ur Leukocyte Esterase (Negative) Urine RBC (0-5) /hpf Urine WBC (0-5) /hpf Triple Phos Crystals (None) /hpf Urine Bacteria (None) /hpf Urine Mucus (None) /hpf 02/22/ Range/Units 11:24 WBC (4.50-10.00) 10*3/uL RBC (4.10-5.20) 10*6/uL Hgb (12.0-15.0) g/dL Hct (37.2-46.3) % MCV (80.0-97.0) fL MCH (27.0-32.0) pg MCHC (32.0-37.0) g/dL Immature Gran # (0.00-0.04) 10*3/uL Neutrophils # (1.80-7.70) 10*3/uL Lymphocytes # (0.90-5.00) 10*3/uL Monocytes # (0.20-1.00) 10*3/uL Eosinophils # (0.04-0.35) 10*3/uL ABG pCO2 (35-45) mmHg ABG pO2 (83-108) mmHg ABG Total CO2 (19-24) mmol/L ABG O2 Saturation (94-97) % Hemoglobin (11.4-16.0) gm/dL Sodium (137-145) mmol/L Carbon Dioxide (22-30) mmol/L BUN (7-17) mg/dL Glucose (74-99) mg/dL POC Glucose (mg/dL) 219 H (70-110) mg/dL Calcium (8.4-10.2) mg/dL AST (14-36) U/L Alkaline Phosphatase (38-126) U/L Total Protein (6.3-8.2) g/dL Urine Appearance (Clear) Urine pH (5.0-8.0) Urine Protein (Negative) Urine Glucose (UA) (Negative) Urine Blood (Negative) Ur Leukocyte Esterase (Negative) Urine RBC (0-5) /hpf Urine WBC (0-5) /hpf Triple Phos Crystals (None) /hpf Urine Bacteria (None) /hpf Urine Mucus (None) /hpf Assessment and Plan (1) Acute pyelonephritis Current Visit: Yes Status: Acute Code(s): N10 - ACUTE PYELONEPHRITIS SNOMED Code(s): 17957357 (2) Sepsis Current Visit: No Status: Acute Code(s): A41.9 - SEPSIS, UNSPECIFIED ORGANISM SNOMED Code(s): 62633647 Plan: 1patient presented to the hospital with sepsis/septic shock in this patient who did have fever tachycardia elevated white count hypotension meeting criteria for SIRS/sepsis source is likely urinary with 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 as seen on the CT and will need to cover for the resistant gram-negative to be the likely pathogen with the last urine culture positive for Pseudomonas aeruginosa 2-patient has been evaluated by urology and planning for cystoscopy and possible stenting to the left ureter this afternoon 3-will discontinue Rocephin 4-start the patient on cefepime 2 g every 8 hours We will follow on clinical condition and cultures to further adjust medication if needed Thank you for this consultation we will follow the patient along with you Dictation was produced using [employer] dictation software. please excuse any grammatical, word or spelling errors. Time with Patient: Greater than 30
[2025-02-23 03:47] LABS: Basophils # (A) 0.04 10*3/uL (0.00-0.10); Basophils % (A) 0.6 %; Eosinophils # (A) 0.12 10*3/uL (0.04-0.35); Eosinophils % (A) 1.9 %; HCT 24.3 % (37.2-46.3); HGB 7.6 g/dL (12.0-15.0); Lymphocytes # (A) 0.59 10*3/uL (0.90-5.00); Lymphocytes % (A) 9.5 %; MCH 24.9 pg (27.0-32.0); MCHC 31.3 g/dL (32.0-37.0); MCV 79.7 fL (80.0-97.0); Mean Platelet Volume 9.5 fL (9.5-12.2); Monocytes # (A) 0.55 10*3/uL (0.20-1.00); Monocytes % (A) 8.9 %; Neutrophils # (A) 4.89 10*3/uL (1.80-7.70); Neutrophils % (A) 78.8 %; Platelet Count 240 10*3/uL (140-440); RBC 3.05 10*6/uL (4.10-5.20); WBC 6.21 10*3/uL (4.50-10.00)
[2025-02-23 05:17] LABS: ALT 25 U/L (4-34); AST 32 U/L (14-36); African American GFR (CKD) 62 (>60 ml/min/1.73 sqM); Albumin 2.2 g/dL (3.5-5.0); Alkaline Phosphatase 76 U/L (38-126); Anion Gap 4 mmol/L; Blood Urea Nitrogen 45 mg/dL (7-17); Calcium 8.5 mg/dL (8.4-10.2); Carbon Dioxide 24 mmol/L (22-30); Chloride 105 mmol/L (98-107); Glucose 96 mg/dL (74-99); Non-African American GFR(CKD) 54 (>60 ml/min/1.73 sqM); Potassium 3.4 mmol/L (3.5-5.1); Sodium 133 mmol/L (137-145); Total Bilirubin 0.5 mg/dL (0.2-1.3); Total Protein 5.7 g/dL (6.3-8.2)
[2025-02-23] MEDS ORDERED: Potassium Replacement Protocol 1 EACH MISC MISCELLANE PRN (05:58)
[2025-02-23] MEDS: POTASSIUM BICARBONATE/CIT AC 20 MEQ TABLET.EFF PEG/G-TUBE SCH (06:39)
[2025-02-23] MEDS: INSULIN GLARGINE (LANTUS) 100 UNIT/ML SYR SQ SCH (06:42)
--- NOTE | 2025-02-23 07:05 | XR ---
EXAMINATION TYPE: XR chest 1V portable DATE OF EXAM: 02/23/2025 4:03 AM COMPARISON: Chest radiographs from 02/22/2025 TECHNIQUE: XR chest 1V portable Portable AP radiograph of the chest. CLINICAL INDICATION:Female, 84 years old with history of Tube placement; FINDINGS: Lungs/Pleura: There is no evidence of pleural effusion, focal consolidation, or pneumothorax. Pulmonary vascularity: Unremarkable. Heart/mediastinum: Cardiomediastinal silhouette is enlarged and stable. Atherosclerotic calcificatio ns are seen in the aorta. Musculoskeletal: No acute osseous pathology. Other findings: PEG tube identified within the left upper quadrant. Left ureteral stent identified. I nterval removal of NG tube and endotracheal tube. IMPRESSION: 1. No acute cardiopulmonary disease/process. 2. Interval removal of NG and endotracheal tubes. [facility], , 02/23/2025 7:03 AM
--- NOTE | 2025-02-23 11:10 | P.PN ---
Subjective Progress Note Date: 02/23/25 Patient is a 84-year-old female being seen in was admitted to this hospital on 02/21/2025 and admitted to this ICU today on 02/22/2025 for sepsis secondary to complicated UTI. She initially came to the ED from her [facility] due to her complaint of abdominal pain. He had x-rays today that showed ileus and was transferred here to rule out possible bowel obstruction. She reports of multiple rounds of nonbloody vomiting for the past day and multiple episodes of loose nonbloody stools. No report of tarry stools. 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 Multiple non-obstructing bilateral renal calculi extending to the renal pelvises. No hydronephrosis or discrete emphysematous pyelonephritis. Chest x- ray displaying bilateral interstitial changes. Was informed that she had atrial fibrillation with RVR in the ED. She was placed on cardizem drip which has now been discontinued. She was also found agonally breathing. They ultimately decided to intubate and mechanically ventilate her along with being sedated on fentalyl drip. Initial labs displayed 10.03, hgb 11, platelet 295, Na 133, K 4, Co2 27, BUN 54, Cr .99, glucose 193. Other medical history of hypertension, CVA/TIA, diabetes mellitus, hypertension, history of uterine cancer. Patient has been seen and evaluated in the ICU on 02/22/2025. Patient is currently sedated on propofol 20 mcg/kg/min and mechanically intubated on asssit volume control at a tidal volume of 400, set at a rate of 18 breaths/min, PEEP of 5, FiO2 of 50%. ABG while on 100% FiO2 was 408/34/7.44. She currently required pressors with levo at 0.08 mcg/kg/min, lactated Ringer's at 130 cc an hour. Patient requires PEG tube for feeds, she can resume. CXR displaying improving bilateral patchy interstitial changes. Labs displaying WBC 20.94, Hgb 8.8, hematocrit 29.1, platelet 295, sodium 132, potassium 3.8, chloride 101, CO2 20, anion gap 11, BUN 52, creatinine 1.02, glucose 200, calcium 8.2. Spoke with respiratory therapy and we will adjust her tidal volume to 350. Plan to repeat her ABG this morning. We will also attempt to wean her of sedation and potentially extubate today if she can tolerate. Will continue to follow her in the ICU. Prognosis is guarded. Patient has been seen and evaluated in the ICU on 02/23/2025. Patient is currently breathing on room air. She currently not requring any pressors, lactated Ringer's at 130 cc an hour. On cardizem drip at 5 mg/hr. She is currently on patient requires PEG tube for feeds, she can resume. Microbiology showing Proteus in the blood culture. She is currently on day 2 of ceftriaxone 2 g every 24 hours yesterday she was seen by urology and underwent cystoscopy with removal of bladder calculi and bilateral stent insertion. Multiple struvite appearing stones were removed. CXR displaying improving bilateral patchy interstitial changes, no acute cardiopulmonary process. Labs displayed WBC 6.21, Hgb 7.6, hematocrit 24.3, MCV 79.7, platelet 240, sodium 133, potassium 3.4, BUN 45, creatinine 0.98, glucose 96. Will continue to follow her in the ICU. Prognosis is guarded. Objective - Vital Signs Vital signs: Vital Signs Temp 97.6 F 02/23/25 04:00 Pulse 80 02/23/25 06:00 Resp 24 02/23/25 06:00 BP 113/52 02/23/25 06:00 Pulse Ox 93 L 02/23/25 06:00 FiO2 40 02/22/25 10:15 Intake & Output 02/22/25 02/23/25 02/23/25 18:59 06:59 18:59 Intake Total 3608.260 1910 Output Total 720 590 Balance 2888.260 1320 Weight 69 kg 73.1 kg Intake: IV 3300 1640 0.9 KVO 110 Cefepime 2 gm In Sodium 100 Chloride 0.9% 100 ml @ 25 mls/hr IVPB Q8H [facility] Rx#: [id number] Lactated Ringers 1,000 ml 1300 1430 @ 130 mls/hr IV .Q7H42M [facility] Rx#:[id number] Lactated Ringers 1,000 ml 1000 @ 999 mls/hr IV .Q1H1M ONE Rx#:[id number] cefTRIAXone 2 gm In 100 Sodium Chloride 0.9% 50 ml @ 100 mls/hr IVPB HS [facility] Rx#:[id number] Intake, IV Titration 128.260 Amount Diltiazem 125 mg In 0 Dextrose 5% in Water 100 ml @ 5 MG/HR 5 mls/hr IV .Q24H [facility] Rx#:[id number] Norepinephrine 4 mg In 105.788 Sodium Chloride 0.9% 250 ml @ 0.03 MCG/KG/MIN 7. 532 mls/hr IV .Q24H [facility] Rx#:[id number] propofoL 1,000 mg In 22.472 Empty Bag 1 bag @ 10 MCG/ KG/MIN 3.954 mls/hr IV . Q24H [facility] Rx#:[id number] Tube Feeding 180 Other 180 90 Output: Urine 720 590 Other: Voiding Method Indwelling Catheter Indwelling Catheter # Bowel Movements 1 - Exam General: Sedated and on mechanical ventilator Derm: warm, dry, intact Head: atraumatic, normocephalic, symmetric Eyes: EOMI, anicteric sclera Mouth: no lip lesion, mucus membranes moist Cardiovascular: S1 S2 irregular, no murmur, rubs, or gallops Lungs: Bilateral coarse rhonchi, no rales, no accessory muscle use Abdominal: soft, non-tender to palpataion, no appreciable organomegaly Extremities: no gross muscle atrophy, no edema, no contractures Neuro: Alert, Oriented, CNII-XII grossly intact, gait normal Psych: well appearing, appropriate affect - Labs CBC & Chem 7: 02/23/25 03:26 02/23/25 03:26 Labs: Abnormal Lab Results - Last 24 Hours (Table) 02/22/25 02/22/25 02/22/25 Range/Units 10:25 11:24 15:47 RBC (4.10-5.20) 10*6/uL Hgb (12.0-15.0) g/dL Hct (37.2-46.3) % MCV (80.0-97.0) fL MCH (27.0-32.0) pg MCHC (32.0-37.0) g/dL Lymphocytes # (0.90-5.00) 10*3/uL ABG pO2 174 H (83-108) mmHg ABG Total CO2 25 H (19-24) mmol/L ABG O2 Saturation >100.0 H (94-97) % Hemoglobin 9.7 L (11.4-16.0) gm/dL Sodium (137-145) mmol/L Potassium (3.5-5.1) mmol/L BUN (7-17) mg/dL POC Glucose (mg/dL) 219 H 118 H (70-110) mg/dL Total Protein (6.3-8.2) g/dL Albumin (3.5-5.0) g/dL 02/22/25 02/23/25 02/23/25 Range/Units 20:23 03:26 03:26 RBC 3.05 L (4.10-5.20) 10*6/uL Hgb 7.6 L (12.0-15.0) g/dL Hct 24.3 L (37.2-46.3) % MCV 79.7 L (80.0-97.0) fL MCH 24.9 L (27.0-32.0) pg MCHC 31.3 L (32.0-37.0) g/dL Lymphocytes # 0.59 L (0.90-5.00) 10*3/uL ABG pO2 (83-108) mmHg ABG Total CO2 (19-24) mmol/L ABG O2 Saturation (94-97) % Hemoglobin (11.4-16.0) gm/dL Sodium 133 L (137-145) mmol/L Potassium 3.4 L (3.5-5.1) mmol/L BUN 45 H (7-17) mg/dL POC Glucose (mg/dL) 119 H (70-110) mg/dL Total Protein 5.7 L (6.3-8.2) g/dL Albumin 2.2 L (3.5-5.0) g/dL Microbiology - Last 24 Hours (Table) 02/22/25 10:30 Gram Stain - Preliminary Sputum 02/21/25 23:35 Blood Culture Gram Stain - Preliminary Blood Blood Culture - Preliminary Molecular ID Assessment and Plan Assessment: Sepsis secondary to complicated UTI in the setting of left-sided emphysematous pyelitis and left-sided pneumoureter with positive blood culture of Proteus Status post cystoscopy with removal of bladder calculi and bilateral stent insertion. Multiple struvite appearing stones were removed Leukocytosis secondary to above Hypotension requiring pressors Atrial fibrillation with RVR Hyperglycemia in rgn-wwhfhwe-[id number] diabetic History of uterine cancer History of CVA with right-sided deficit and aphasia History of hypertension Anemia of chronic disease Plan: Continue Rocephin 2 g IVPB every 24 hours, consider Zosyn or cefepime due to history of Pseudomonas seen on previous urine cultures Blood cultures positive for Proteus continue antibiotic management as above Status post cystoscopy with bilateral stent placement and removal of 2 struvite appearing stones Continue LR at 130 cc an hour Continue Eliquis 2.5 mg p.o. twice daily Placed patient on sliding scale, Accu-Cheks ACHS, hypoglycemic precautions, holding oral antidiabetic medication Cardiology, urology, ID following, pending recommendations Patient will remain in ICU. Prognosis is guarded.
[2025-02-23 11:54] LABS: Glucose,Whole Blood 121 mg/dL (70-110)
--- NOTE | 2025-02-23 13:57 | P.PN ---
Subjective Progress Note Date: 02/23/25 This is a 84-year-old female who presented to the emergency department from [facility] where she resides with abdominal pain with multiple episodes of nausea and vomiting with concerns of possible ileus and came here for further evaluation. Patient follows with Dr. Gaston in the outpatient setting with a past medical history of atrial fibrillation, CVA/TIA, diabetes mellitus, hypertension, osteoarthritis, history of uterine cancer with incontinence of urine and recurrent urinary tract infections. Patient with concerns of sepsis and hypotensive requiring pressor support and also noted to be obtunded shortly after and in a team was called and noted to have agonal respirations and patient was ultimately intubated to protect airway and brought to the ICU. Labs reviewed on admission showing a mildly elevated white count of 10.03 although this morning is worsening at 20.94, hemoglobin 11.2 and repeat 8.8, sodium 133, potassium 4.0, BUN 54 with a creatinine of 0.99, magnesium 2.0, AST mildly elevated at 40, ALT 34, urinalysis performed with large leukocyte esterase and high WBCs with concerns of urinary tract infection and patient started on Rocephin with infectious disease on consult. 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 EKG showed atrial fibrillation with RVR and was initially started on Cardizem which has been discontinued and currently rate controlled. Pulmonary semiconductor packages platemaker was consulted for ICU admission along with infectious disease and urology. Patient being admitted with sepsis secondary to UTI with concerns of septic shock requiring pressor support. 02/23/2025 Patient is evaluated in follow-up in the ICU. She is status post cystoscopy w ith removal of bladder calculi and the bilateral ureteral stent placement. Blood culture is positive for negative bacilli with Proteus species detected urine culture is showing gram-negative bacilli. Patient is calling out and seems confused today regarding her procedure. Patient was updated on current medical procedures and plan we will continue to reorient the patient and reinforce teaching. She continues on IV ceftriaxone. She is weaned off of Levophed and blood pressure is currently 102/43. A chest x-ray this morning which reveals no acute cardiopulmonary disease/process and there is a been interval removal of NG and endotracheal tubes. She is currently extubated and maintaining oxygen saturations on 3 L of oxygen via nasal cannula. REVIEW OF SYSTEMS: CONSTITUTIONAL: No fever, no malaise, reports of fatigue. HEENT: No recent visual problems or hearing problems. Denied any sore throat. CARDIOVASCULAR: No chest pain, orthopnea, PND, no palpitations, no syncope. PULMONARY: No reports of shortness of breath, no cough, no hemoptysis. Reports of dry raspy voice and sore throat GASTROINTESTINAL: No diarrhea, no further reports of nausea, no further reports of vomiting, reports of diffuse abdominal pain. NEUROLOGICAL: No headaches, reports of generalized weakness, no numbness. PHYSICAL EXAMINATION: GENERAL: The patient is lethargic although arousable, alert and oriented x to, fatigues easily, recently just extubated this morning. Well developed, elderly appearing, ill-appearing HEENT: Pupils are round and equally reacting to light. EOMI. No scleral icterus. No conjunctival pallor. Normocephalic, atraumatic. No pharyngeal erythema. No thyromegaly. CARDIOVASCULAR: S1 and S2 muffled PULMONARY: Diminished breath sounds bilaterally otherwise chest is clear to auscultation, no wheezing or crackles. ABDOMEN: Soft, nontender, nondistended, normoactive bowel sounds. No palpable organomegaly. MUSCULOSKELETAL: No joint swelling or deformity. EXTREMITIES: No cyanosis, clubbing, or pedal edema. NEUROLOGICAL: Gross neurological examination did not reveal any focal deficits. Diffusely weak SKIN: No rashes. Assessment: Acute urinary tract infection with pyelonephritis, present on admission, secondary to indwelling Streeter catheter with sepsis and septic shock requiring ICU admission Kidney calculus with left-sided emphysematous pyelitis and left-sided pneumonia ureter patient is status post cystoscopy with removal of bladder calculi and placement of bilateral ureteral stenting Hypotension requiring pressor support secondary to above Increased unresponsiveness requiring mechanical ventilation to protect airway, recently extubated this morning and improved currently maintained on 3 L via nasal cannula Acute hypoxic respiratory failure secondary to sepsis Leukocytosis, secondary to #1 History of CVA/TIA with right-sided deficit and aphasia History of atrial fibrillation with a brief episode of rapid ventricular rate, currently rate controlled Diabetes mellitus type 2 history History of hypertension History of osteoarthritis History of uterine cancer GI prophylaxis DVT prophylaxis Full code Plan: Patient was admitted with urinary tract infection with concerns of sepsis, present on admission secondary to chronic indwelling Streeter catheter and patient resides at an [facility]. Patient did have an x-ray in the outpatient setting with concerns of possible ileus and sent here for further evaluation as patient was having multiple episodes of nausea and vomiting along with liquid stools and abdominal pain Patient with chronic indwelling Streeter catheter with issues since CVA last year with multiple recurrent UTIs and some Proteus resistance and previous urine cultures. Blood culture and urine culture revealing gram-negative bacilli blood culture has isolated Proteus species and patient continues currently on IV ceftriaxone with ID following closely. Patient was intubated and meeting weaning parameters per pulmonary semiconductor packages platemaker and patient was just extubated currently maintained on 3 L and is awake, answering questions and following commands appropriately. Pressor support is currently being weaned All medications will be reviewed and resumed as appropriate Continue n.p.o. for now Follow-up on repeat labs and replace electrolytes per protocol Continue monitoring Accu-Cheks AC and at bedtime will add sliding scale and adjust accordingly Cardiology also consulted as patient did have a brief episode of atrial fibrillation with RVR with history of A-fib, currently rate controlled and will continue telemetry monitoring Plan will be for return to [facility] on discharge and will consult case management/social work to arrange once patient is stabilized. The impression and plan of care has been dictated by Tonya Vargas, Nurse Practitioner as directed. Dr. Nitin MD I have performed a history and examination and MDM of this patient, discussed the same with the dictator, and agree with the dictator's assessment and plan as written ,documented as a scribe. Based on total visit time, I have performed more than 50% of the visit. Objective - Vital Signs Vital signs: Vital Signs Temp 98.3 F 02/23/25 08:00 Pulse 83 02/23/25 08:00 Resp 25 H 02/23/25 08:00 BP 104/50 02/23/25 08:00 Pulse Ox 92 L 02/23/25 08:00 FiO2 40 02/22/25 10:15 Intake & Output 02/22/25 02/23/25 02/23/25 18:59 06:59 18:59 Intake Total 3608.260 1910 1020 Output Total 720 590 220 Balance 2888.260 1320 800 Weight 69 kg 73.1 kg Intake: IV 3300 1640 840 0.9 KVO 110 60 Cefepime 2 gm In Sodium 100 Chloride 0.9% 100 ml @ 25 mls/hr IVPB Q8H NERISSA Rx#: [id number] Lactated Ringers 1,000 ml 1300 1430 780 @ 130 mls/hr IV .Q7H42M NERISSA Rx#:[id number] Lactated Ringers 1,000 ml 1000 @ 999 mls/hr IV .Q1H1M ONE Rx#:[id number] cefTRIAXone 2 gm In 100 Sodium Chloride 0.9% 50 ml @ 100 mls/hr IVPB HS NERISSA Rx#:[id number] Intake, IV Titration 128.260 Amount Diltiazem 125 mg In 0 Dextrose 5% in Water 100 ml @ 5 MG/HR 5 mls/hr IV .Q24H NERISSA Rx#:[id number] Norepinephrine 4 mg In 105.788 Sodium Chloride 0.9% 250 ml @ 0.03 MCG/KG/MIN 7. 532 mls/hr IV .Q24H [facility]ERISSA Rx#:[id number] propofoL 1,000 mg In 22.472 Empty Bag 1 bag @ 10 MCG/ KG/MIN 3.954 mls/hr IV . Q24H NERISSA Rx#:[id number] Tube Feeding 180 180 Other 180 90 Output: Urine 720 590 220 Other: Voiding Method Indwelling Catheter Indwelling Catheter Indwelling Catheter # Bowel Movements 1 - Labs CBC & Chem 7: 02/23/25 03:26 02/23/25 12:00 Labs: Abnormal Lab Results - Last 24 Hours (Table) 02/22/25 02/22/25 02/23/25 Range/Units 15:47 20:23 03:26 RBC (4.10-5.20) 10*6/uL Hgb (12.0-15.0) g/dL Hct (37.2-46.3) % MCV (80.0-97.0) fL MCH (27.0-32.0) pg MCHC (32.0-37.0) g/dL Lymphocytes # (0.90-5.00) 10*3/uL Sodium (137-145) mmol/L Potassium (3.5-5.1) mmol/L BUN (7-17) mg/dL POC Glucose (mg/dL) 118 H 119 H (70-110) mg/dL Total Protein (6.3-8.2) g/dL Albumin (3.5-5.0) g/dL Procalcitonin 4.22 H (0.02-0.50) ng/mL 02/23/25 02/23/25 02/23/25 Range/Units 03:26 03:26 11:52 RBC 3.05 L (4.10-5.20) 10*6/uL Hgb 7.6 L (12.0-15.0) g/dL Hct 24.3 L (37.2-46.3) % MCV 79.7 L (80.0-97.0) fL MCH 24.9 L (27.0-32.0) pg MCHC 31.3 L (32.0-37.0) g/dL Lymphocytes # 0.59 L (0.90-5.00) 10*3/uL Sodium 133 L (137-145) mmol/L Potassium 3.4 L (3.5-5.1) mmol/L BUN 45 H (7-17) mg/dL POC Glucose (mg/dL) 121 H (70-110) mg/dL Total Protein 5.7 L (6.3-8.2) g/dL Albumin 2.2 L (3.5-5.0) g/dL Procalcitonin (0.02-0.50) ng/mL Microbiology - Last 24 Hours (Table) 02/22/25 10:30 Gram Stain - Preliminary Sputum Sputum Culture - Preliminary 02/21/25 19:43 Urine Culture - Preliminary Urine,Catheterized Gram Neg Bacilli 02/21/25 23:35 Blood Culture Gram Stain - Preliminary Blood Blood Culture - Preliminary Molecular ID Assessment and Plan Time with Patient: Less than 30
--- NOTE | 2025-02-23 15:12 | P.PN ---
Subjective Progress Note Date: 02/23/25 Principal diagnosis: Reason for follow-up is UTI and bacteremia Patient is a 84-year-old female with a past medical he significant for diabetes mellitus hypertension osteoarthritis CVA TIA and atrial fibrillation, history of recurrent UTI patient was brought into the hospital for evaluation of abdominal pain, patient presents with sepsis secondary to UTI/pyelonephritis and blood cultures came back positive with Proteus Mirabelis. Patient is status post Cystoscopy, removal of bladder calculi, bilateral ureteral stent insertion completed on 02/22/2025. On today's evaluation that is 02/23/2025, the patient continues to be afebrile, the patient is on room air and breathing comfortably, the Pt denies having any chest pain or cough, the patient denies having any nausea vomiting circumventing of lower abdominal discomfort no diarrhea. Patient white count 6.1, creatinine 0.98 procalcitonin is 4.22 blood culture with Proteus urine is growing gram-negative Objective - Vital Signs Vital signs: Vital Signs Temp 97.8 F 02/23/25 12:00 Pulse 87 02/23/25 14:00 Resp 30 H 02/23/25 14:00 BP 110/56 02/23/25 14:00 Pulse Ox 93 L 02/23/25 14:00 FiO2 40 02/22/25 10:15 Intake & Output 02/22/25 02/23/25 02/23/25 18:59 06:59 18:59 Intake Total 3608.260 1910 1360 Output Total 720 590 345 Balance 2888.260 1320 1015 Weight 69 kg 73.1 kg Intake: IV 3300 1640 1120 0.9 KVO 110 80 Cefepime 2 gm In Sodium 100 Chloride 0.9% 100 ml @ 25 mls/hr IVPB Q8H NERISSA Rx#: [id number] Lactated Ringers 1,000 ml 1300 1430 1040 @ 130 mls/hr IV .Q7H42M [facility]ERISSA Rx#:[id number] Lactated Ringers 1,000 ml 1000 @ 999 mls/hr IV .Q1H1M ONE Rx#:[id number] cefTRIAXone 2 gm In 100 Sodium Chloride 0.9% 50 ml @ 100 mls/hr IVPB HS NERISSA Rx#:[id number] Intake, IV Titration 128.260 Amount Diltiazem 125 mg In 0 Dextrose 5% in Water 100 ml @ 5 MG/HR 5 mls/hr IV .Q24H NERISSA Rx#:[id number] Norepinephrine 4 mg In 105.788 Sodium Chloride 0.9% 250 ml @ 0.03 MCG/KG/MIN 7. 532 mls/hr IV .Q24H NERISSA Rx#:[id number] propofoL 1,000 mg In 22.472 Empty Bag 1 bag @ 10 MCG/ KG/MIN 3.954 mls/hr IV . Q24H NERISSA Rx#:[id number] Tube Feeding 180 240 Other 180 90 Output: Urine 720 590 345 Other: Voiding Method Indwelling Catheter Indwelling Catheter Indwelling Catheter # Bowel Movements 1 - Exam GENERAL DESCRIPTION: An elderly female lying in bed in no distress RESPIRATORY SYSTEM: Unlabored breathing , decreased breath sounds at bases HEART: S1 S2 regular rate and rhythm , ABDOMEN: Soft , no tenderness EXTREMITIES: No edema feet - Labs CBC & Chem 7: 02/24/25 05:37 02/24/25 13:13 Labs: Abnormal Lab Results - Last 24 Hours (Table) 02/22/25 02/22/25 02/23/25 Range/Units 15:47 20:23 03:26 RBC (4.10-5.20) 10*6/uL Hgb (12.0-15.0) g/dL Hct (37.2-46.3) % MCV (80.0-97.0) fL MCH (27.0-32.0) pg MCHC (32.0-37.0) g/dL Lymphocytes # (0.90-5.00) 10*3/uL Sodium (137-145) mmol/L Potassium (3.5-5.1) mmol/L BUN (7-17) mg/dL POC Glucose (mg/dL) 118 H 119 H (70-110) mg/dL Total Protein (6.3-8.2) g/dL Albumin (3.5-5.0) g/dL Procalcitonin 4.22 H (0.02-0.50) ng/mL 02/23/25 02/23/25 02/23/25 Range/Units 03:26 03:26 11:52 RBC 3.05 L (4.10-5.20) 10*6/uL Hgb 7.6 L (12.0-15.0) g/dL Hct 24.3 L (37.2-46.3) % MCV 79.7 L (80.0-97.0) fL MCH 24.9 L (27.0-32.0) pg MCHC 31.3 L (32.0-37.0) g/dL Lymphocytes # 0.59 L (0.90-5.00) 10*3/uL Sodium 133 L (137-145) mmol/L Potassium 3.4 L (3.5-5.1) mmol/L BUN 45 H (7-17) mg/dL POC Glucose (mg/dL) 121 H (70-110) mg/dL Total Protein 5.7 L (6.3-8.2) g/dL Albumin 2.2 L (3.5-5.0) g/dL Procalcitonin (0.02-0.50) ng/mL Microbiology - Last 24 Hours (Table) 02/21/25 23:35 Blood Culture Gram Stain - Preliminary Blood Blood Culture - Preliminary Proteus mirabilis Molecular ID 02/22/25 10:30 Gram Stain - Preliminary Sputum Sputum Culture - Preliminary 02/21/25 19:43 Urine Culture - Preliminary Urine,Catheterized Gram Neg Bacilli Assessment and Plan (1) Acute pyelonephritis Current Visit: Yes Status: Acute Code(s): N10 - ACUTE PYELONEPHRITIS SNOMED Code(s): 19079171 (2) Sepsis Current Visit: No Status: Acute Code(s): A41.9 - SEPSIS, UNSPECIFIED ORGANISM SNOMED Code(s): 80862246 (3) Bacteremia Current Visit: Yes Status: Acute Code(s): R78.81 - BACTEREMIA SNOMED Code(s): 9423200 Plan: 1patient presented to the hospital with sepsis/septic shock in this patient who did have fever tachycardia elevated white count hypotension meeting criteria for SIRS/sepsis source is likely urinary with 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 as seen on the CT and will need to cover for the resistant gram-negative to be the likely pathogen with the last urine culture positive for Pseudomonas aeruginosa 2-patient has been evaluated by urology and is status post cystoscopy removal of bladder stone and bilateral ureteral stenting completed on 02/22/2025 3-cultures came back positive with a Proteus source likely urinary 4-cefepime has been discontinued patient started on Rocephin 2 g daily and will monitor clinical course closely Dictation was produced using [employer] dictation software. please excuse any grammatical, word or spelling errors. Time with Patient: Less than 30
--- NOTE | 2025-02-23 15:23 | P.CRDCN ---
History of Present Illness Consult date: 02/23/25 Reason for Consult (text): A-fib with RVR History of present illness: This is an 84-year-old female patient of Dr. Mosley with past medical history of CAD, hypertension, hyperlipidemia, chronic lower extremity edema, diabetes, persistent atrial fibrillation, CVA. We have been asked to evaluate the patient for A-fib with RVR. Patient presented to the hospital on 02/21 due to urinary tract infection. Patient came from long term with complaints of abdominal pain. She also had multiple episodes of vomiting and loose stools. CAT scan showed left-sided pneumo ureter, multiple bilateral renal calculi. Patient had A-fib with RVR and initially was started on Cardizem drip. She developed agonal breathing and was intubated and placed on mechanical ventilation. Patient was subsequently extubated yesterday. Patient underwent a cystoscopy with removal of bladder calculi and bilateral stent insertions on 02/22. Blood pressure 110/56 , heart rate in the 70s and 80s, pulse ox 93% on room air, respiratory rate 30. Temperature max was 102.6 on 02/21. Otherwise patient has been afebrile. Regarding atrial fibrillation, heart rate was up to 121. She is status post Cardizem 7.5 mg IV push. -EKG: Atrial fibrillation 115 bpm -Chest x-ray: No acute process. -Laboratory studies: WBC peaked at 20.9 currently 6.2, hemoglobin 7.6 down from 11.2. Sodium 133, potassium 4.7, BUN 45 creatinine 0.98. Procalcitonin 4.22. Magnesium 2.0. Urinalysis positive for UTI. Urine culture is gram-negative bacilli. Blood culture Proteus mirabilis, molecular ID. -Home cardiac medications: Eliquis 2.5 mg twice daily, atorvastatin 40 mg daily, Coreg 12.5 mg twice daily, Jardiance 10 mg daily, Lasix 20 mg daily. -Echocardiogram performed 03/05/2024 at [facility] revealed EF of 65 to 70% with mild LVH. -Jazmyne scan Cardiolite stress test performed in the office 07/07/2022 revealed inconclusive EKG part of the stress test due to baseline EKG abnormalities. Abnormal nuclear scan showing ischemia involving the inferior lateral wall. Review Of Systems: At the time of my exam: CONSTITUTIONAL: Denies fever or chills. HEENT: Denies blurred vision, vision changes, or eye pain. Denies hemoptysis CARDIOVASCULAR: Denies chest pain. Denies orthopnea. Denies PND. Denies palpitations RESPIRATORY: Denies shortness of breath. GASTROINTESTINAL: Denies abdominal pain. Denies nausea or vomiting. HEMATOLOGIC: Denies bleeding disorders. GENITOURINARY: Denies any blood in urine. SKIN: Denies puritis. Denies rash. Physical examination: Gen: This is an 84-year-old female in no acute respiratory distress. VS: reviewed HEENT: Head is atraumatic, normocephalic. Pupils equal, round. Sclerae is anicteric. NECK: Supple. No JVD. LUNGS: Clear to auscultation. No wheezes or rhonchi. No intercostal retractions. HEART: Regular rate and rhythm. No murmur. ABDOMEN: Soft No tenderness. EXTREMITIES: No pedal edema. No calf tenderness. NEUROLOGICAL: Patient is awake, alert. Unable to understand patient's garbled speech that is secondary to previous CVA. Assessment: Sepsis secondary to UTI, pyelonephritis, left-sided pneumo ureter status post cystoscopy and removal of bladder calculi and bilateral stent insertion on 02/22 Proteus bacteremia and sepsis Acute hypoxic respiratory failure requiring intubation, subsequently extubated Acute on chronic anemia Persistent atrial fibrillation with episode of RVR, currently rate controlled History of coronary artery disease including left main 80%, mid LAD 60 to 70%, circumflex 100%, status post PCI of the left main into the LAD 10/23/2023 History of CVA with right-sided deficit and aphasia Hypertension Hyperlipidemia History of uterine cancer Plan: Continue current cardiac medications: Eliquis 2.5 mg twice daily, atorvastatin Increase Coreg to 25 mg twice daily Continue telemetry monitoring Obtain 2-D echocardiogram and Doppler study to assess cardiac structure and function Further recommendations to follow based upon clinical course Thank you kindly for this consultation. Nurse practitioner note has been reviewed, I agree with documented findings and plan of care. Patient was seen and examined. 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 Past Anesthesia/Blood Transfusion Reactions: No Reported Reaction Past Psychological History: No Psychological Hx Reported Smoking Status: Never smoker Past Alcohol Use History: None Reported Past Drug Use History: None Reported - Past Family History Mother Family Medical History: Coronary Artery Disease (CAD), Diabetes Mellitus, Hypertension, Mitral Valve Prolapse (MVP) Father Family Medical History: Hypertension Additional Family Medical History / Comment(s): father hip surgery Medications and Allergies Home Medications Medication Instructions Recorded Confirmed Type Empagliflozin [Jardiance] 10 mg PEG/G-TUBE DAILY 03/04/24 02/22/25 History Atorvastatin [Lipitor] 40 mg PEG/G-TUBE DAILY 06/19/24 02/22/25 History Famotidine [Pepcid] 20 mg PEG/G-TUBE DAILY 06/19/24 02/22/25 History Magnesium Hydroxide [Milk of 7,200 mg PEG/G-TUBE DAILY PRN 06/19/24 02/22/25 History Magnesia Concentrate] Na Phos,M-B/Na Phos,Di-Ba [Fleet 133 ml RECTAL DAILY PRN 06/19/24 02/22/25 History Adult] Saliva Stimulant Comb. No.3 1 tsp MUCOUS MEM Q12H PRN 06/19/24 02/22/25 History [Biotene Moisturizing Mouth] bisacodyL [Dulcolax] 10 mg RECTAL DAILY PRN 06/19/24 02/22/25 History carvediloL [Coreg] 12.5 mg PEG/G-TUBE BID 06/19/24 02/22/25 History Acetaminophen Tab [Tylenol] 500 mg PEG/G-TUBE Q6HR PRN 07/27/24 02/22/25 History Furosemide [Lasix] 20 mg PEG/G-TUBE DAILY 07/27/24 02/22/25 History INSULIN LISPRO (humaLOG) [humaLOG] See Protocol SQ ACHS 07/27/24 02/22/25 History Apixaban [Eliquis] 2.5 mg PEG/G-TUBE BID 10/11/24 02/22/25 History Ferrous Sulfate Oral Elixir 450 mg PEG/G-TUBE DAILY 10/11/24 02/22/25 History [Feosol Liquid] Ipratropium-Albuterol Nebulize 3 ml INHALATION RT-TID PRN 10/11/24 02/22/25 History [Duoneb 0.5 mg-3 mg/3 ml Soln] Lactulose [Cephulac] 30 gm PO DAILY 10/11/24 02/22/25 History Metoclopramide [Reglan] 5 mg PEG/G-TUBE DAILY 10/11/24 02/22/25 History Simethicone 40 mg/0.6 ml Drops 40 mg PEG/G-TUBE QID 10/11/24 02/22/25 History [Mylicon Drops] guaiFENesin [guaiFENesin ER] 600 mg PEG/G-TUBE Q12H PRN 10/11/24 02/22/25 Histor y Insulin Glargine,Hum.rec.anlog 5 units SQ DAILY 02/22/25 02/22/25 History [Lantus Solostar Pen] Lactulose [Constulose] 30 gm PEG/G-TUBE Q12H PRN 02/22/25 02/22/25 History Loperamide [Imodium] 4 mg PEG/G-TUBE QID PRN 02/22/25 02/22/25 History Allergies Allergy/AdvReac Type Severity Reaction Status Date / Time bacitracin Allergy Rash/Hives Verified 02/22/25 11:19 [From Neosporin ([id number])] ibuprofen Allergy Anaphylaxis Verified 02/22/25 11:19 & Rash all over neomycin Allergy Rash/Hives Verified 02/22/25 11:19 [From Neosporin ([id number])] polymyxin B Allergy Rash/Hives Verified 02/22/25 11:19 [From Neosporin ([id number])] Physical Exam Vitals: Vital Signs Temp Pulse Resp BP Pulse Ox 02/23/25 08:00 98.3 F 83 25 H 104/50 92 L 02/23/25 07:30 87 20 114/51 95 02/23/25 07:00 80 20 103/53 95 02/23/25 06:30 88 24 104/49 95 02/23/25 06:00 80 24 113/52 93 L 02/23/25 05:30 80 24 103/52 94 L 02/23/25 05:00 74 24 108/51 95 02/23/25 04:30 80 24 100/58 95 02/23/25 04:00 97.6 F 78 20 106/48 95 02/23/25 03:30 77 20 106/50 99 02/23/25 03:00 79 21 108/53 100 02/23/25 02:30 83 24 107/57 99 02/23/25 02:00 73 14 92/43 98 02/23/25 01:30 80 16 93/41 100 02/23/25 01:00 70 19 87/38 100 02/23/25 00:30 74 20 102/47 100 02/23/25 00:00 71 21 89/44 100 02/22/25 23:30 75 19 94/41 100 02/22/25 23:21 74 20 94/41 100 02/22/25 23:00 79 18 115/47 100 02/22/25 22:30 78 14 102/50 100 02/22/25 22:00 89 20 89/49 99 02/22/25 21:30 84 16 116/63 100 02/22/25 21:00 81 20 99/58 97 02/22/25 20:45 88 16 99/58 98 02/22/25 20:30 71 14 102/46 100 02/22/25 20:15 81 11 L 112/79 100 02/22/25 20:00 97.5 F L 77 15 101/49 99 02/22/25 19:45 80 18 105/54 100 02/22/25 19:30 79 16 99/56 99 02/22/25 19:15 72 16 114/69 100 02/22/25 19:00 89 14 107/46 100 02/22/25 18:45 89 20 109/57 98 02/22/25 18:30 75 21 111/53 99 02/22/25 18:15 71 17 102/61 100 02/22/25 18:00 85 17 84/46 100 02/22/25 17:45 73 24 94/46 100 02/22/25 17:30 70 16 108/52 100 02/22/25 17:15 88 22 108/60 100 02/22/25 17:00 74 15 109/70 100 02/22/25 16:45 96 38 H 100/59 100 02/22/25 16:30 95 20 117/51 100 0525 16:15 108 H 31 H 97/65 100 02/22/25 16:00 97.6 F 103 H 29 H 90/44 99 02/22/25 14:45 87 10 L 92/55 100 02/22/25 14:30 79 19 95/56 100 02/22/25 14:15 75 19 104/51 100 02/22/25 14:00 86 13 98/79 100 02/22/25 13:45 82 16 107/62 100 02/22/25 13:30 88 19 112/56 100 02/22/25 13:15 26 H 111/66 100 02/22/25 13:00 96 19 120/63 100 02/22/25 12:45 25 H 120/60 100 02/22/25 12:30 100 33 H 96/46 100 02/22/25 12:15 101 H 18 110/69 100 02/22/25 12:00 97.8 F 95 17 121/72 100 02/22/25 11:45 93 48 H 126/78 100 Intake and Output 02/22/25 02/23/25 02/23/25 22:59 06:59 14:59 Intake Total 2370 1330 510 Output Total 325 415 120 Balance 2045 915 390 Intake: IV 2310 1120 420 0.9 KVO 30 80 30 Cefepime 2 gm In Sodium 100 Chloride 0.9% 100 ml @ 25 mls/hr IVPB Q8H NERISSA Rx#: [id number] Lactated Ringers 1,000 ml 780 1040 390 @ 130 mls/hr IV .Q7H42M NERISSA Rx#:[id number] Lactated Ringers 1,000 ml 1000 @ 999 mls/hr IV .Q1H1M ONE Rx#:[id number] cefTRIAXone 2 gm In 100 Sodium Chloride 0.9% 50 ml @ 100 mls/hr IVPB HS NERISSA Rx#:[id number] Intake, IV Titration 0 Amount Diltiazem 125 mg In 0 Dextrose 5% in Water 100 ml @ 5 MG/HR 5 mls/hr IV .Q24H NERISSA Rx#:[id number] Tube Feeding 30 150 90 Other 30 60 Output: Urine 325 415 120 Other: Voiding Method Indwelling Catheter Indwelling Catheter Indwelling Catheter # Bowel Movements 1 Weight 69 kg 73.1 kg Results 02/23/25 03:26 05/31/25 12:00 Cardiac Enzymes 02/23/25 Range/Units 03:26 AST 32 (14-36) U/L CBC 02/23/25 Range/Units 03:26 WBC 6.21 (4.50-10.00) 10*3/uL RBC 3.05 L (4.10-5.20) 10*6/uL Hgb 7.6 L (12.0-15.0) g/dL Hct 24.3 L (37.2-46.3) % Plt Count 240 (140-440) 10*3/uL Comprehensive Metabolic Panel 02/23/25 Range/Units 03:26 Sodium 133 L (137-145) mmol/L Potassium 3.4 L (3.5-5.1) mmol/L Chloride 105 (98-107) mmol/L Carbon Dioxide 24 (22-30) mmol/L BUN 45 H (7-17) mg/dL Creatinine 0.98 (0.52-1.04) mg/dL Glucose 96 (74-99) mg/dL Calcium 8.5 (8.4-10.2) mg/dL AST 32 (14-36) U/L ALT 25 (4-34) U/L Alkaline Phosphatase 76 (38-126) U/L Total Protein 5.7 L (6.3-8.2) g/dL Albumin 2.2 L (3.5-5.0) g/dL Current Medications Generic Name Dose Route Start Last Admin Trade Name Freq PRN Reason Stop Dose Admin Acetaminophen 650 mg 02/21/25 21:08 Acetaminophen Tab 325 Mg Tab PO Q6HR PRN Mild Pain or Fever > 100.5 Albuterol/Ipratropium 3 ml 02/21/25 21:09 02/22/25 07:51 Ipratropium-Albuterol 3 Ml Neb INHALATION 3 ml RT-TID PRN Administration Cough Apixaban 2.5 mg 02/22/25 09:00 02/23/25 08:23 Apixaban 2.5 Mg Tablet PO 2.5 mg BID NERISSA Administration Protocol Atorvastatin Calcium 40 mg 02/22/25 09:00 02/23/25 08:22 Atorvastatin 40 Mg Tab PO 40 mg DAILY NERISSA Administration Bisacodyl 10 mg 02/22/25 21:36 Bisacodyl 10 Mg Supp RECTAL DAILY PRN Constipation Carvedilol 12.5 mg 02/22/25 09:00 02/23/25 06:39 Carvedilol 12.5 Mg Tab PO 12.5 mg BID-W/MEALS NERISSA Administration Famotidine 20 mg 02/22/25 09:00 02/23/25 08:23 Famotidine 20 Mg Tab PO 20 mg DAILY NERISSA Administration Ferrous Sulfate 450 mg 02/22/25 09:00 02/23/25 08:23 Ferrous Sulfate Oral Elixir 300 Mg/5 Ml Cup PEG/G-TUBE 450 mg DAILY ENRISSA Administration Guaifenesin 600 mg 02/22/25 21:36 Guaifenesin 600 Mg Tablet.Er PO Q12H PRN Cough Lactated Ringer's 1,000 mls @ 130 mls/hr 02/21/25 23:00 02/23/25 08:23 Lactated Ringers IV 130 mls/hr .Q7H42M NERISSA Administration Diltiazem HCl 125 mg/ Dextrose 125 mls @ 5 mls/hr 02/21/25 23:30 02/23/25 03:10 /Water IV Not Given .Q24H NERISSA Protocol 5 MG/HR Norepinephrine Bitartrate 4 mg 254 mls @ 7.532 mls/hr 02/22/25 02:30 02/23/25 03:11 / Sodium Chloride IV Not Given .Q24H NERISSA Protocol 0.03 MCG/KG/MIN Ceftriaxone Sodium 2 gm/ 50 mls @ 100 mls/hr 02/22/25 21:00 02/22/25 20:21 Sodium Chloride IVPB 100 mls/hr Q24H NERISSA Administration Protocol Insulin Glargine 5 unit 02/23/25 07:00 02/23/25 06:42 Insulin Glargine (Lantus) 100 Unit/Ml Syr SQ 5 unit DAILY@0700 NERISSA Administration Insulin Human Lispro 0 unit 02/22/25 12:30 02/23/25 06:40 Insulin Lispro (Humalog) 100 Unit/Ml 10 Ml Vl SQ Not Given ACHS [facility] Protocol Lactulose 30 gm 02/22/25 09:00 02/23/25 08:22 Lactulose 20 Gm/30 Ml Cup PO 30 gm DAILY NERISSA Administration Lactulose 30 gm 02/22/25 21:36 Lactulose 20 Gm/30 Ml Cup PO Q12H PRN Constipation Loperamide HCl 4 mg 02/22/25 21:36 Loperamide 2 Mg Cap PEG/G-TUBE QID PRN Diarrhea Magnesium Hydroxide 7,200 mg 02/21/25 21:09 Magnesium Hydroxide 2,400 Mg/30 Ml Cup PO DAILY PRN Constipation Metoclopramide HCl 5 mg 02/22/25 09:00 02/22/25 10:26 Metoclopramide 5 Mg Tab PO 5 mg DAILY NERISSA Administration Miscellaneous Information 1 each 02/23/25 05:58 Potassium Replacement Protocol 1 Each Misc MISCELLANE DAILY PRN Per Protocol Protocol Naloxone HCl 0.2 mg 02/21/25 20:12 Naloxone 0.4 Mg/Ml 1 Ml Vial IV Q2M PRN Opioid Reversal Potassium Chloride 10 meq 02/22/25 09:00 02/23/25 08:23 Potassium Chloride Er 10 Meq Tab.Er.Prt PO 10 meq DAILY NERISSA Administration Saliva Substitute 1 spray 02/22/25 21:36 Dry Mouth Charlotte 59 Charlotte/59 Ml Charlotte MUCOUS MEM Q12H PRN dry mouth/throat Simethicone 40 mg 02/22/25 22:00 02/23/25 08:24 Simethicone 40 Mg/0.6 Ml Drops 2,000 Mg/30 Ml Bottle PEG/G-TUBE 40 mg QID NERISSA Administration Sodium Biphosphate/Sodium Phosphate 133 ml 02/22/25 21:36 Na Phos,M-B/Na Phos,Di-Ba 133 Ml Enema RECTAL DAILY PRN Constipation Intake and Output 02/22/25 02/23/25 02/23/25 22:59 06:59 14:59 Intake Total 2370 1330 510 Output Total 325 415 120 Balance 2045 915 390 Intake: IV 2310 1120 420 0.9 KVO 30 80 30 Cefepime 2 gm In Sodium 100 Chloride 0.9% 100 ml @ 25 mls/hr IVPB Q8H [facility] Rx#: [id number] Lactated Ringers 1,000 ml 780 1040 390 @ 130 mls/hr IV .Q7H42M [facility] Rx#:[id number] Lactated Ringers 1,000 ml 1000 @ 999 mls/hr IV .Q1H1M ONE Rx#:[id number] cefTRIAXone 2 gm In 100 Sodium Chloride 0.9% 50 ml @ 100 mls/hr IVPB HS [facility] Rx#:[id number] Intake, IV Titration 0 Amount Diltiazem 125 mg In 0 Dextrose 5% in Water 100 ml @ 5 MG/HR 5 mls/hr IV .Q24H [facility] Rx#:[id number] Tube Feeding 30 150 90 Other 30 60 Output: Urine 325 415 120 Other: Voiding Method Indwelling Catheter Indwelling Catheter Indwelling Catheter # Bowel Movements 1 Weight 69 kg 73.1 kg 02/23/25 03:26 02/23/25 03:26
--- NOTE | 2025-02-23 15:24 | P.PN ---
Subjective Progress Note Date: 02/23/25 Principal diagnosis: UTI, renal calculi On February 22, the patient underwent cystoscopy with removal of bladder calculi and bilateral ureteral stent insertion. Blood cultures have shown Proteus mirabilis, likely of urinary origin. It appears that the patient developed ascending Proteus infections causing the formation of bilateral struvite renal calculi. She has no specific complaints at this time. Objective - Vital Signs Vital signs: Vital Signs Temp 97.8 F 02/23/25 12:00 Pulse 87 02/23/25 14:00 Resp 30 H 02/23/25 14:00 BP 110/56 02/23/25 14:00 Pulse Ox 93 L 02/23/25 14:00 FiO2 40 02/22/25 10:15 Intake & Output 02/22/25 02/23/25 02/23/25 18:59 06:59 18:59 Intake Total 3608.260 1910 1360 Output Total 720 590 345 Balance 2888.260 1320 1015 Weight 69 kg 73.1 kg Intake: IV 3300 1640 1120 0.9 KVO 110 80 Cefepime 2 gm In Sodium 100 Chloride 0.9% 100 ml @ 25 mls/hr IVPB Q8H [facility] Rx#: [id number] Lactated Ringers 1,000 ml 1300 1430 1040 @ 130 mls/hr IV .Q7H42M [facility] Rx#:[id number] Lactated Ringers 1,000 ml 1000 @ 999 mls/hr IV .Q1H1M ONE Rx#:[id number] cefTRIAXone 2 gm In 100 Sodium Chloride 0.9% 50 ml @ 100 mls/hr IVPB HS [facility] Rx#:[id number] Intake, IV Titration 128.260 Amount Diltiazem 125 mg In 0 Dextrose 5% in Water 100 ml @ 5 MG/HR 5 mls/hr IV .Q24H [facility] Rx#:[id number] Norepinephrine 4 mg In 105.788 Sodium Chloride 0.9% 250 ml @ 0.03 MCG/KG/MIN 7. 532 mls/hr IV .Q24H [facility] Rx#:[id number] propofoL 1,000 mg In 22.472 Empty Bag 1 bag @ 10 MCG/ KG/MIN 3.954 mls/hr IV . Q24H [facility] Rx#:[id number] Tube Feeding 180 240 Other 180 90 Output: Urine 720 590 345 Other: Voiding Method Indwelling Catheter Indwelling Catheter Indwelling Catheter # Bowel Movements 1 - Constitutional General appearance: Present: average body habitus, cooperative, no acute distress - Genitourinary Genitourinary Comment(s): The Streeter catheter is intact, draining urine which is somewhat cloudy and blood- tinged. - Labs CBC & Chem 7: 02/23/25 03:26 02/23/25 12:00 Labs: Abnormal Lab Results - Last 24 Hours (Table) 02/22/25 02/22/25 02/23/25 Range/Units 15:47 20:23 03:26 RBC (4.10-5.20) 10*6/uL Hgb (12.0-15.0) g/dL Hct (37.2-46.3) % MCV (80.0-97.0) fL MCH (27.0-32.0) pg MCHC (32.0-37.0) g/dL Lymphocytes # (0.90-5.00) 10*3/uL Sodium (137-145) mmol/L Potassium (3.5-5.1) mmol/L BUN (7-17) mg/dL POC Glucose (mg/dL) 118 H 119 H (70-110) mg/dL Total Protein (6.3-8.2) g/dL Albumin (3.5-5.0) g/dL Procalcitonin 4.22 H (0.02-0.50) ng/mL 02/23/25 02/23/25 02/23/25 Range/Units 03:26 03:26 11:52 RBC 3.05 L (4.10-5.20) 10*6/uL Hgb 7.6 L (12.0-15.0) g/dL Hct 24.3 L (37.2-46.3) % MCV 79.7 L (80.0-97.0) fL MCH 24.9 L (27.0-32.0) pg MCHC 31.3 L (32.0-37.0) g/dL Lymphocytes # 0.59 L (0.90-5.00) 10*3/uL Sodium 133 L (137-145) mmol/L Potassium 3.4 L (3.5-5.1) mmol/L BUN 45 H (7-17) mg/dL POC Glucose (mg/dL) 121 H (70-110) mg/dL Total Protein 5.7 L (6.3-8.2) g/dL Albumin 2.2 L (3.5-5.0) g/dL Procalcitonin (0.02-0.50) ng/mL Microbiology - Last 24 Hours (Table) 02/21/25 23:35 Blood Culture Gram Stain - Preliminary Blood Blood Culture - Preliminary Proteus mirabilis Molecular ID 02/22/25 10:30 Gram Stain - Preliminary Sputum Sputum Culture - Preliminary 02/21/25 19:43 Urine Culture - Preliminary Urine,Catheterized Gram Neg Bacilli Assessment and Plan (1) Calculus of kidney Current Visit: Yes Status: Acute Code(s): N20.0 - CALCULUS OF KIDNEY SNOMED Code(s): 04273864 (2) Acute pyelonephritis Current Visit: Yes Status: Acute Code(s): N10 - ACUTE PYELONEPHRITIS SNOMED Code(s): 22618212 Plan: Continue Rocephin, pending final culture results. Unfortunately, the patient may require bilateral percutaneous nephrolithotomies to remove the infected renal calculi.
[2025-02-23 16:05] LABS: Glucose,Whole Blood 129 mg/dL (70-110)
[2025-02-23] MEDS: carvediloL 12.5 MG TAB PO SCH (16:57)
[2025-02-23 19:44] LABS: Glucose,Whole Blood 166 mg/dL (70-110)
[2025-02-24 05:51] LABS: Basophils # (A) 0.02 10*3/uL (0.00-0.10); Basophils % (A) 0.3 %; Eosinophils # (A) 0.04 10*3/uL (0.04-0.35); Eosinophils % (A) 0.6 %; HCT 25.7 % (37.2-46.3); HGB 7.7 g/dL (12.0-15.0); Lymphocytes # (A) 0.68 10*3/uL (0.90-5.00); Lymphocytes % (A) 10.6 %; MCH 23.9 pg (27.0-32.0); MCV 79.8 fL (80.0-97.0); Mean Platelet Volume 9.6 fL (9.5-12.2); Monocytes # (A) 0.72 10*3/uL (0.20-1.00); Monocytes % (A) 11.2 %; Neutrophils # (A) 4.94 10*3/uL (1.80-7.70); Neutrophils % (A) 77.1 %; Platelet Count 245 10*3/uL (140-440); RBC 3.22 10*6/uL (4.10-5.20); RDW 18.7 % (11.5-14.5); WBC 6.41 10*3/uL (4.50-10.00)
[2025-02-24 06:25] LABS: Glucose,Whole Blood 210 mg/dL (70-110)
[2025-02-24 06:44] LABS: African American GFR (CKD) 68 (>60 ml/min/1.73 sqM); Anion Gap 5 mmol/L; Blood Urea Nitrogen 42 mg/dL (7-17); Calcium 8.1 mg/dL (8.4-10.2); Carbon Dioxide 24 mmol/L (22-30); Chloride 108 mmol/L (98-107); Glucose 197 mg/dL (74-99); Non-African American GFR(CKD) 59 (>60 ml/min/1.73 sqM); Potassium 3.4 mmol/L (3.5-5.1); Sodium 137 mmol/L (137-145)
[2025-02-24] MEDS: POTASSIUM BICARBONATE/CIT AC 20 MEQ TABLET.EFF NG-TUBE SCH ×2 (08:48→15:42)
[2025-02-24] MEDS: ACETAMINOPHEN TAB 325 MG TAB PO PRN (09:02)
[2025-02-24] MEDS: ONDANSETRON 4 MG/2 ML VIAL IVP PRN (11:32)
[2025-02-24 11:35] LABS: Glucose,Whole Blood 186 mg/dL (70-110)
--- NOTE | 2025-02-24 11:44 | P.PN ---
Subjective Progress Note Date: 02/24/25 Patient is a 84-year-old female being seen in was admitted to this hospital on 02/21/2025 and admitted to this ICU today on 02/22/2025 for sepsis secondary to complicated UTI. She initially came to the ED from her [facility] due to her complaint of abdominal pain. He had x-rays today that showed ileus and was transferred here to rule out possible bowel obstruction. She reports of multiple rounds of nonbloody vomiting for the past day and multiple episodes of loose nonbloody stools. No report of tarry stools. 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 Multiple non-obstructing bilateral renal calculi extending to the renal pelvises. No hydronephrosis or discrete emphysematous pyelonephritis. Chest x- ray displaying bilateral interstitial changes. Was informed that she had atrial fibrillation with RVR in the ED. She was placed on cardizem drip which has now been discontinued. She was also found agonally breathing. They ultimately decided to intubate and mechanically ventilate her along with being sedated on fentalyl drip. Initial labs displayed 10.03, hgb 11, platelet 295, Na 133, K 4, Co2 27, BUN 54, Cr .99, glucose 193. Other medical history of hypertension, CVA/TIA, diabetes mellitus, hypertension, history of uterine cancer. Patient has been seen and evaluated in the ICU on 02/22/2025. Patient is currently sedated on propofol 20 mcg/kg/min and mechanically intubated on asssit volume control at a tidal volume of 400, set at a rate of 18 breaths/min, PEEP of 5, FiO2 of 50%. ABG while on 100% FiO2 was 408/34/7.44. She currently required pressors with levo at 0.08 mcg/kg/min, lactated Ringer's at 130 cc an hour. Patient requires PEG tube for feeds, she can resume. CXR displaying improving bilateral patchy interstitial changes. Labs displaying WBC 20.94, Hgb 8.8, hematocrit 29.1, platelet 295, sodium 132, potassium 3.8, chloride 101, CO2 20, anion gap 11, BUN 52, creatinine 1.02, glucose 200, calcium 8.2. Spoke with respiratory therapy and we will adjust her tidal volume to 350. Plan to repeat her ABG this morning. We will also attempt to wean her of sedation and potentially extubate today if she can tolerate. Will continue to follow her in the ICU. Prognosis is guarded. Patient has been seen and evaluated in the ICU on 02/23/2025. Patient is currently breathing on room air. She currently not requring any pressors, lactated Ringer's at 130 cc an hour. On cardizem drip at 5 mg/hr. She is currently on patient requires PEG tube for feeds, she can resume. Microbiology showing Proteus in the blood culture. She is currently on day 2 of ceftriaxone 2 g every 24 hours yesterday she was seen by urology and underwent cystoscopy with removal of bladder calculi and bilateral stent insertion. Multiple struvite appearing stones were removed. CXR displaying improving bilateral patchy interstitial changes, no acute cardiopulmonary process. Labs displayed WBC 6.21, Hgb 7.6, hematocrit 24.3, MCV 79.7, platelet 240, sodium 133, potassium 3.4, BUN 45, creatinine 0.98, glucose 96. Will continue to follow her in the ICU. Prognosis is guarded. The patient is seen today February 24, 2025 in follow-up in the intensive care unit. She is currently resting in bed. Awake and alert in no acute distress. She is being nourished with vital HP at 60 mL/h. Lactated Ringer's at 75 mL/h. She is continued on ceftriaxone. Urine culture was positive for Proteus mirabilis. Blood culture showing Proteus mirabilis. Sputum culture revealed no growth. White count 6.4. Hemoglobin 7.7. Platelets 245. Sodium 137. Potassium 3.4. Bicarb 24. BUN 42. Creatinine 0.91. Glucose 197. She is continued on DuoNeb inhalations. Anticoagulated with Eliquis. She has been off pressors. Objective - Vital Signs Vital signs: Vital Signs Temp 100.5 F H 02/24/25 09:00 Pulse 84 02/24/25 10:00 Resp 23 02/24/25 10:00 BP 127/74 02/24/25 10:00 Pulse Ox 94 L 02/24/25 10:00 FiO2 40 02/22/25 10:15 Intake & Output 02/23/25 02/24/25 02/24/25 18:59 06:59 18:59 Intake Total 2260 2290 650 Output Total 645 775 560 Balance 1615 1515 90 Weight 75 kg Intake: IV 1820 1540 590 0.9 KVO 130 110 50 Lactated Ringers 1,000 ml 1690 1430 540 @ 75 mls/hr IV .[id number] [facility] Rx#:[id number] Tube Feeding 440 660 60 Other 90 Output: Urine 645 775 560 Other: Voiding Method Indwelling Catheter Indwelling Catheter Indwelling Catheter - Exam GENERAL EXAM: Alert, frail 84-year-old female, on room air oxygen, comfortable in no apparent distress. HEAD: Normocephalic. EYES: Normal reaction of pupils, equal size. NOSE: Clear with pink turbinates. THROAT: No erythema or exudates. NECK: No masses, no JVD. CHEST: No chest wall deformity. LUNGS: Equal air entry with bilateral scattered rhonchi. CVS: S1 and S2 normal with no audible murmur, irregular rhythm. ABDOMEN: PEG tube exit site clean and dry. No hepatosplenomegaly, normal bowel sounds, no guarding or rigidity. SPINE: No scoliosis or deformity SKIN: No rashes CENTRAL NERVOUS SYSTEM: No focal deficits, tone is normal in all 4 extremities. EXTREMITIES: There is no peripheral edema. No clubbing, no cyanosis. Peripheral pulses are intact. - Labs CBC & Chem 7: 02/24/25 05:37 02/24/25 05:37 Labs: Abnormal Lab Results - Last 24 Hours (Table) 02/23/25 02/23/25 02/23/25 Range/Units 11:52 16:03 19:43 RBC (4.10-5.20) 10*6/uL Hgb (12.0-15.0) g/dL Hct (37.2-46.3) % MCV (80.0-97.0) fL MCH (27.0-32.0) pg MCHC (32.0-37.0) g/dL Lymphocytes # (0.90-5.00) 10*3/uL Potassium (3.5-5.1) mmol/L Chloride (98-107) mmol/L BUN (7-17) mg/dL Glucose (74-99) mg/dL POC Glucose (mg/dL) 121 H 129 H 166 H (70-110) mg/dL Calcium (8.4-10.2) mg/dL 02/24/25 02/24/25 02/24/25 Range/Units 05:37 05:37 06:24 RBC 3.22 L (4.10-5.20) 10*6/uL Hgb 7.7 L (12.0-15.0) g/dL Hct 25.7 L (37.2-46.3) % MCV 79.8 L (80.0-97.0) fL MCH 23.9 L (27.0-32.0) pg MCHC 30.0 L (32.0-37.0) g/dL Lymphocytes # 0.68 L (0.90-5.00) 10*3/uL Potassium 3.4 L (3.5-5.1) mmol/L Chloride 108 H (98-107) mmol/L BUN 42 H (7-17) mg/dL Glucose 197 H (74-99) mg/dL POC Glucose (mg/dL) 210 H (70-110) mg/dL Calcium 8.1 L (8.4-10.2) mg/dL Microbiology - Last 24 Hours (Table) 02/22/25 10:30 Gram Stain - Final Sputum Sputum Culture - Final 02/21/25 19:43 Urine Culture - Final Urine,Catheterized Proteus mirabilis 02/21/25 23:35 Blood Culture Gram Stain - Preliminary Blood Blood Culture - Preliminary Proteus mirabilis Molecular ID Assessment and Plan Assessment: Sepsis secondary to complicated UTI secondary to Proteus mirabilis in the setting of left-sided emphysematous pyelitis and left-sided pneumoureter Bacteremia secondary to Proteus mirabilis Status post cystoscopy with removal of bladder calculi and bilateral stent insertion. Multiple struvite appearing stones were removed Leukocytosis secondary to above, improved Hypotension initially requiring pressors, improved and currently off pressors Atrial fibrillation with RVR, improved, anticoagulated with Eliquis Hyperglycemia in [id number]-[id number] diabetic History of uterine cancer History of CVA with right-sided deficit and aphasia History of hypertension Anemia of chronic disease Plan: The patient was seen and evaluated Labs and medications reviewed Currently stable off pressors Stable and on room air oxygen Urine and blood cultures positive for Proteus mirabilis Remains on ceftriaxone Anticoagulated with Eliquis Continued on bronchodilators Remains on vital HP PEG tube feedings at 60 mL/h We will continue to follow I have personally seen and examined the patient, performed the documentation and the assessment and plan as written. Number of minutes spent on the visit: 10 Dictation was produced using [employer] dictation software. Please excuse any grammatical, word or spelling errors.
--- NOTE | 2025-02-24 12:22 | P.PN ---
Subjective Progress Note Date: 02/24/25 Reason for Consult (text): A-fib with RVR History of present illness: This is an 84-year-old female patient of Dr. Mosley with past medical history of CAD, hypertension, hyperlipidemia, chronic lower extremity edema, diabetes, persistent atrial fibrillation, CVA. We have been asked to evaluate the patient for A-fib with RVR. Patient presented to the hospital on 02/21 due to urinary tract infection. Patient came from [facility] with complaints of abdominal pain. She also had multiple episodes of vomiting and loose stools. CAT scan showed left-sided pneumo ureter, multiple bilateral renal calculi. Patient had A-fib with RVR and initially was started on Cardizem drip. She developed agonal breathing and was intubated and placed on mechanical ventilation. Patient was subsequently extubated yesterday. Patient underwent a cystoscopy with removal of bladder calculi and bilateral stent insertions on 02/22. Blood pressure 110/56, heart rate in the 70s and 80s, pulse ox 93% on room air, respiratory rate 30. Temperature max was 102.6 on 02/21. Otherwise patient has been afebrile. Regarding atrial fibrillation, heart rate was up to 121. She is status post Cardizem 7.5 mg IV push. -EKG: Atrial fibrillation 115 bpm -Chest x-ray: No acute process. -Laboratory studies: WBC peaked at 20.9 currently 6.2, hemoglobin 7.6 down from 11.2. Sodium 133, potassium 4.7, BUN 45 creatinine 0.98. Procalcitonin 4.22. Magnesium 2.0. Urinalysis positive for UTI. Urine culture is gram-negative bacilli. Blood culture Proteus mirabilis, molecular ID. -Home cardiac medications: Eliquis 2.5 mg twice daily, atorvastatin 40 mg daily, Coreg 12.5 mg twice daily, Jardiance 10 mg daily, Lasix 20 mg daily. -Echocardiogram performed 03/05/2024 at [facility] revealed EF of 65 to 70% with mild LVH. -Jazmyne scan Cardiolite stress test performed in the office 07/07/2022 revealed inconclusive EKG part of the stress test due to baseline EKG abnormalities. Abnormal nuclear scan showing ischemia involving the inferior lateral wall. 02/24 Patient seen and examined in the intensive care unit. Patient is currently off oxygen. She has had some nausea per her nurse. Patient denies pain. Echocardiogram is pending. Blood pressure 127/74, heart rate 84, pulse ox 94% on room air. Repeat blood work reveals hemoglobin 7.7, potassium 3.4, BUN 42 creatinine 0.91. Physical examination: Gen: This is an 84-year-old female in no acute respiratory distress. VS: reviewed HEENT: Head is atraumatic, normocephalic. Pupils equal, round. Sclerae is ani cteric. NECK: Supple. No JVD. LUNGS: Clear to auscultation. No wheezes or rhonchi. No intercostal retractions. HEART: Regular rate and rhythm. No murmur. ABDOMEN: Soft No tenderness. EXTREMITIES: No pedal edema. No calf tenderness. NEUROLOGICAL: Patient is awake, alert. Unable to understand patient's garbled speech that is secondary to previous CVA. Assessment: Sepsis secondary to UTI, pyelonephritis, left-sided pneumo ureter status post cystoscopy and removal of bladder calculi and bilateral stent insertion on 02/22 Proteus bacteremia Acute hypoxic respiratory failure requiring intubation, subsequently extubated Acute on chronic anemia Persistent atrial fibrillation with episode of RVR, currently rate controlled History of coronary artery disease including left main 80%, mid LAD 60 to 70%, circumflex 100%, status post PCI of the left main into the LAD 10/23/2023 History of CVA with right-sided deficit and aphasia status post PEG tube Hypertension Hyperlipidemia History of uterine cancer Plan: Continue current cardiac medications: Eliquis 2.5 mg twice daily, atorvastatin Continue increased dose of Coreg 25 mg twice daily Continue telemetry monitoring Obtain 2-D echocardiogram and Doppler study to assess cardiac structure and function Further recommendations to follow based upon clinical course Nurse practitioner note has been reviewed, I agree with documented findings and plan of care. Patient was seen and examined. Objective - Vital Signs Vital signs: Vital Signs Temp 100.5 F H 02/24/25 09:00 Pulse 84 02/24/25 10:00 Resp 23 02/24/25 10:00 BP 127/74 02/24/25 10:00 Pulse Ox 94 L 02/24/25 10:00 FiO2 40 02/22/25 10:15 Intake & Output 02/23/25 02/24/25 02/24/25 18:59 06:59 18:59 Intake Total 2260 2290 650 Output Total 645 775 560 Balance 1615 1515 90 Weight 75 kg Intake: IV 1820 1540 590 0.9 KVO 130 110 50 Lactated Ringers 1,000 ml 1690 1430 540 @ 75 mls/hr IV .[id number] [facility] Rx#:[id number] Tube Feeding 440 660 60 Other 90 Output: Urine 645 775 560 Other: Voiding Method Indwelling Catheter Indwelling Catheter Indwelling Catheter - Labs CBC & Chem 7: 02/24/25 05:37 02/24/25 05:37 Labs: Abnormal Lab Results - Last 24 Hours (Table) 02/23/25 02/23/25 02/23/25 Range/Units 11:52 16:03 19:43 RBC (4.10-5.20) 10*6/uL Hgb (12.0-15.0) g/dL Hct (37.2-46.3) % MCV (80.0-97.0) fL MCH (27.0-32.0) pg MCHC (32.0-37.0) g/dL Lymphocytes # (0.90-5.00) 10*3/uL Potassium (3.5-5.1) mmol/L Chloride (98-107) mmol/L BUN (7-17) mg/dL Glucose (74-99) mg/dL POC Glucose (mg/dL) 121 H 129 H 166 H (70-110) mg/dL Calcium (8.4-10.2) mg/dL 02/24/25 02/24/25 02/24/25 Range/Units 05:37 05:37 06:24 RBC 3.22 L (4.10-5.20) 10*6/uL Hgb 7.7 L (12.0-15.0) g/dL Hct 25.7 L (37.2-46.3) % MCV 79.8 L (80.0-97.0) fL MCH 23.9 L (27.0-32.0) pg MCHC 30.0 L (32.0-37.0) g/dL Lymphocytes # 0.68 L (0.90-5.00) 10*3/uL Potassium 3.4 L (3.5-5.1) mmol/L Chloride 108 H (98-107) mmol/L BUN 42 H (7-17) mg/dL Glucose 197 H (74-99) mg/dL POC Glucose (mg/dL) 210 H (70-110) mg/dL Calcium 8.1 L (8.4-10.2) mg/dL Microbiology - Last 24 Hours (Table) 02/22/25 10:30 Gram Stain - Final Sputum Sputum Culture - Final 02/21/25 19:43 Urine Culture - Final Urine,Catheterized Proteus mirabilis 02/21/25 23:35 Blood Culture Gram Stain - Preliminary Blood Blood Culture - Preliminary Proteus mirabilis Molecular ID
[2025-02-24] MEDS ORDERED: ZINC OXIDE PASTE (Z-GUARD) 1 APPLIC TOPICAL PRN (12:32)
--- NOTE | 2025-02-24 14:11 | P.PN ---
Subjective Progress Note Date: 02/24/25 Principal diagnosis: Reason for follow-up is UTI and bacteremia Patient is a 84-year-old female with a past medical he significant for diabetes mellitus hypertension osteoarthritis CVA TIA and atrial fibrillation, history of recurrent UTI patient was brought into the hospital for evaluation of abdominal pain, patient presents with sepsis secondary to UTI/pyelonephritis and blood cultures came back positive with Proteus Mirabelis. Patient is status post Cystoscopy, removal of bladder calculi, bilateral ureteral stent insertion completed on 02/22/2025. On today's evaluation that is 02/24/2025, Patient is afebrile patient is currently on room air and breathing comfortably no distress patient is sleepy did not provide any question no vomiting diarrhea no changes reported. Patient white count is 6.41, creatinine 0.91 blood and urine with a Proteus sensitive pathogen Objective - Vital Signs Vital signs: Vital Signs Temp 97.8 F 02/24/25 12:00 Pulse 82 02/24/25 13:00 Resp 23 02/24/25 13:00 BP 98/78 02/24/25 13:00 Pulse Ox 93 L 02/24/25 13:00 FiO2 40 02/22/25 10:15 Intake & Output 02/23/25 02/24/25 02/24/25 18:59 06:59 18:59 Intake Total 2260 2290 820 Output Total 645 775 685 Balance 1615 1515 135 Weight 75 kg Intake: IV 1820 1540 760 0.9 KVO 130 110 70 Lactated Ringers 1,000 ml 1690 1430 690 @ 75 mls/hr IV .[id number] [facility] Rx#:[id number] Tube Feeding 440 660 60 Other 90 Output: Urine 645 775 685 Other: Voiding Method Indwelling Catheter Indwelling Catheter Indwelling Catheter # Bowel Movements 2 - Exam GENERAL DESCRIPTION: An elderly female lying in bed in no distress RESPIRATORY SYSTEM: Unlabored breathing , decreased breath sounds at bases HEART: S1 S2 regular rate and rhythm , ABDOMEN: Soft , no tenderness EXTREMITIES: No edema feet - Labs CBC & Chem 7: 02/24/25 05:37 02/24/25 13:13 Labs: Abnormal Lab Results - Last 24 Hours (Table) 02/23/25 02/23/25 02/24/25 Range/Units 16:03 19:43 05:37 RBC 3.22 L (4.10-5.20) 10*6/uL Hgb 7.7 L (12.0-15.0) g/dL Hct 25.7 L (37.2-46.3) % MCV 79.8 L (80.0-97.0) fL MCH 23.9 L (27.0-32.0) pg MCHC 30.0 L (32.0-37.0) g/dL Lymphocytes # 0.68 L (0.90-5.00) 10*3/uL Potassium (3.5-5.1) mmol/L Chloride (98-107) mmol/L BUN (7-17) mg/dL Glucose (74-99) mg/dL POC Glucose (mg/dL) 129 H 166 H (70-110) mg/dL Calcium (8.4-10.2) mg/dL 02/24/25 02/24/25 02/24/25 Range/Units 05:37 06:24 11:34 RBC (4.10-5.20) 10*6/uL Hgb (12.0-15.0) g/dL Hct (37.2-46.3) % MCV (80.0-97.0) fL MCH (27.0-32.0) pg MCHC (32.0-37.0) g/dL Lymphocytes # (0.90-5.00) 10*3/uL Potassium 3.4 L (3.5-5.1) mmol/L Chloride 108 H (98-107) mmol/L BUN 42 H (7-17) mg/dL Glucose 197 H (74-99) mg/dL POC Glucose (mg/dL) 210 H 186 H (70-110) mg/dL Calcium 8.1 L (8.4-10.2) mg/dL Microbiology - Last 24 Hours (Table) 02/21/25 23:35 Blood Culture Gram Stain - Final Blood Blood Culture - Final Proteus mirabilis Molecular ID 02/23/25 03:26 Blood Culture - Preliminary Blood 02/22/25 10:30 Gram Stain - Final Sputum Sputum Culture - Final 02/21/25 19:43 Urine Culture - Final Urine,Catheterized Proteus mirabilis Assessment and Plan (1) Acute pyelonephritis Current Visit: Yes Status: Acute Code(s): N10 - ACUTE PYELONEPHRITIS SNOMED Code(s): 97352709 (2) Sepsis Current Visit: No Status: Acute Code(s): A41.9 - SEPSIS, UNSPECIFIED ORGANISM SNOMED Code(s): 47939430 Plan: 1patient presented to the hospital with sepsis/septic shock in this patient who did have fever tachycardia elevated white count hypotension meeting criteria for SIRS/sepsis source is likely urinary with 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 as seen on the CT and will need to cover for the resistant gram-negative to be the likely pathogen with the last urine culture positive for Pseudomonas aeruginosa 2-patient has been evaluated by urology and is status post cystoscopy removal of bladder stone and bilateral ureteral stenting completed on 02/22/2025 3-cultures came back positive with a Proteus source likely urinary 4-patient is afebrile and the patient white count normalized, to continue with Rocephin 2 g daily and will monitor clinical course closely Dictation was produced using [employer] dictation software. please excuse any grammatical, word or spelling errors. Time with Patient: Less than 30
--- NOTE | 2025-02-24 14:23 | P.PN ---
Subjective Progress Note Date: 02/24/25 This is a 84-year-old female who presented to the emergency department from [facility] where she resides with abdominal pain with multiple episodes of nausea and vomiting with concerns of possible ileus and came here for further evaluation. Patient follows with Dr. Gaston in the outpatient setting with a past medical history of atrial fibrillation, CVA/TIA, diabetes mellitus, hypertension, osteoarthritis, history of uterine cancer with incontinence of urine and recurrent urinary tract infections. Patient with concerns of sepsis and hypotensive requiring pressor support and also noted to be obtunded shortly after and in a team was called and noted to have agonal respirations and patient was ultimately intubated to protect airway and brought to the ICU. Labs reviewed on admission showing a mildly elevated white count of 10.03 although this morning is worsening at 20.94, hemoglobin 11.2 and repeat 8.8, sodium 133, potassium 4.0, BUN 54 with a creatinine of 0.99, magnesium 2.0, AST mildly elevated at 40, ALT 34, urinalysis performed with large leukocyte esterase and high WBCs with concerns of urinary tract infection and patient started on Rocephin with infectious disease on consult. 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 EKG showed atrial fibrillation with RVR and was initially started on Cardizem which has been discontinued and currently rate controlled. Pulmonary pharmacy technologist was consulted for ICU admission along with infectious disease and urology. Patient being admitted with sepsis secondary to UTI with concerns of septic shock requiring pressor support. 02/23/2025 Patient is evaluated in follow-up in the ICU. She is status post cystoscopy w ith removal of bladder calculi and the bilateral ureteral stent placement. Blood culture is positive for negative bacilli with Proteus species detected urine culture is showing gram-negative bacilli. Patient is calling out and seems confused today regarding her procedure. Patient was updated on current medical procedures and plan we will continue to reorient the patient and reinforce teaching. She continues on IV ceftriaxone. She is weaned off of Levophed and blood pressure is currently 102/43. A chest x-ray this morning which reveals no acute cardiopulmonary disease/process and there is a been interval removal of NG and endotracheal tubes. She is currently extubated and maintaining oxygen saturations on 3 L of oxygen via nasal cannula. 02/24/2025 Patient evaluated in the intensive care unit. She is status post cystoscopy with bilateral ureteral placement and removal of bladder calculi. Urine culture and blood culture are both revealing Proteus Mirabellis. She continues on IV ceftriaxone and ID is following this patient closely as well as urology. Her labs today reveal a white blood cell count of 6.41, hemoglobin 7.7, sodium of 137, potassium 3.4, BUN of 42 creatinine of 0.91. Calcium level is 8.1. Her procalcitonin level was elevated at 4.22. REVIEW OF SYSTEMS: CONSTITUTIONAL: No fever, no malaise, reports of fatigue. HEENT: No recent visual problems or hearing problems. Denied any sore throat. CARDIOVASCULAR: No chest pain, orthopnea, PND, no palpitations, no syncope. PULMONARY: No reports of shortness of breath, no cough, no hemoptysis. Reports of dry raspy voice and sore throat GASTROINTESTINAL: No diarrhea, no further reports of nausea, no further reports of vomiting, reports of diffuse abdominal pain. NEUROLOGICAL: No headaches, reports of generalized weakness, no numbness. PHYSICAL EXAMINATION: GENERAL: The patient is lethargic although arousable, alert and oriented x to, fatigues easily, recently just extubated this morning. Well developed, elderly appearing, ill-appearing HEENT: Pupils are round and equally reacting to light. EOMI. No scleral icterus. No conjunctival pallor. Normocephalic, atraumatic. No pharyngeal erythema. No thyromegaly. CARDIOVASCULAR: S1 and S2 muffled PULMONARY: Diminished breath sounds bilaterally otherwise chest is clear to auscultation, no wheezing or crackles. ABDOMEN: Soft, nontender, nondistended, normoactive bowel sounds. No palpable organomegaly. PEG tube MUSCULOSKELETAL: No joint swelling or deformity. EXTREMITIES: No cyanosis, clubbing, or pedal edema. NEUROLOGICAL: Gross neurological examination did not reveal any focal deficits. Diffusely weak SKIN: No rashes. Assessment: Acute urinary tract infection with pyelonephritis, present on admission, secondary to indwelling Streeter catheter with sepsis and septic shock requiring ICU admission Kidney calculus with left-sided emphysematous pyelitis and left-sided pneumonia ureter patient is status post cystoscopy with removal of bladder calculi and placement of bilateral ureteral stenting Hypotension requiring pressor support secondary to above Increased unresponsiveness requiring mechanical ventilation to protect airway, recently extubated this morning and improved currently maintained on 3 L via nasal cannula Acute hypoxic respiratory failure secondary to sepsis Leukocytosis, secondary to #1 History of CVA/TIA with right-sided deficit and aphasia History of atrial fibrillation with a brief episode of rapid ventricular rate, currently rate controlled Iron deficiency anemia Diabetes mellitus type 2 history History of hypertension History of osteoarthritis History of uterine cancer GI prophylaxis DVT prophylaxis Full code Plan: Patient was admitted with urinary tract infection with concerns of sepsis, present on admission secondary to chronic indwelling Streeter catheter and [facility] Patient did have an x-ray in the outpatient setting with concerns of possible ileus and sent here for further evaluation as patient was having multiple episodes of nausea and vomiting along with liquid stools and abdominal pain Patient with chronic indwelling Streeter catheter with issues since CVA last year with multiple recurrent UTIs and some Proteus resistance and previous urine cultures. Blood culture and urine culture revealing gram-negative bacilli blood culture has isolated Proteus species and patient continues currently on IV ceftriaxone with ID following closely. Patient was intubated and meeting weaning parameters per pulmonary pharmacy technologist and patient was just extubated currently maintained on 3 L and is awake, answering questions and following commands appropriately. Pressor support is currently being weaned All medications will be reviewed and resumed as appropriate Patient is NPO with chronic Peg tube in place and continues on enteral feedings Patient is chronically on oral iron through her PEG tube. Consider IV iron due to decreasing hemoglobin. Follow-up on repeat labs and replace electrolytes per protocol Continue monitoring Accu-Cheks AC and at bedtime will add sliding scale and adjust accordingly Cardiology also consulted as patient did have a brief episode of atrial fibr illation with RVR with history of A-fib, currently rate controlled and will continue telemetry monitoring Patient is anticoagulated with eliquis and will continue Plan will be for return to [facility] on discharge and will consult case management/social work to arrange once patient is stabilized. The impression and plan of care has been dictated by Tonya Vargas, Nurse Practitioner as directed. Dr. Nitin MD I have performed a history and examination and MDM of this patient, discussed the same with the dictator, and agree with the dictator's assessment and plan as written ,documented as a scribe. Based on total visit time, I have performed more than 50% of the visit. Objective - Vital Signs Vital signs: Vital Signs Temp 99.6 F 02/24/25 00:00 Pulse 86 02/24/25 03:00 Resp 25 H 02/24/25 03:00 BP 127/60 02/24/25 03:00 Pulse Ox 94 L 02/24/25 03:00 FiO2 40 02/22/25 10:15 Intake & Output 02/23/25 02/24/25 02/24/25 18:59 06:59 18:59 Intake Total 2260 1460 Output Total 645 575 Balance 1615 885 Weight 75 kg Intake: IV 1820 980 0.9 KVO 130 70 Lactated Ringers 1,000 ml 1690 910 @ 130 mls/hr IV .[id number] [facility] Rx#:[id number] Tube Feeding 440 420 Other 60 Output: Urine 645 575 Other: Voiding Method Indwelling Catheter Indwelling Catheter - Labs CBC & Chem 7: 02/24/25 05:37 02/24/25 13:13 Labs: Abnormal Lab Results - Last 24 Hours (Table) 02/23/25 02/23/25 02/23/25 Range/Units 03:26 11:52 16:03 RBC (4.10-5.20) 10*6/uL Hgb (12.0-15.0) g/dL Hct (37.2-46.3) % MCV (80.0-97.0) fL MCH (27.0-32.0) pg MCHC (32.0-37.0) g/dL Lymphocytes # (0.90-5.00) 10*3/uL Potassium (3.5-5.1) mmol/L Chloride (98-107) mmol/L BUN (7-17) mg/dL Glucose (74-99) mg/dL POC Glucose (mg/dL) 121 H 129 H (70-110) mg/dL Calcium (8.4-10.2) mg/dL Procalcitonin 4.22 H (0.02-0.50) ng/mL 02/23/25 02/24/2525 Range/Units 19:43 05:37 05:37 RBC 3.22 L (4.10-5.20) 10*6/uL Hgb 7.7 L (12.0-15.0) g/dL Hct 25.7 L (37.2-46.3) % MCV 79.8 L (80.0-97.0) fL MCH 23.9 L (27.0-32.0) pg MCHC 30.0 L (32.0-37.0) g/dL Lymphocytes # 0.68 L (0.90-5.00) 10*3/uL Potassium 3.4 L (3.5-5.1) mmol/L Chloride 108 H (98-107) mmol/L BUN 42 H (7-17) mg/dL Glucose 197 H (74-99) mg/dL POC Glucose (mg/dL) 166 H (70-110) mg/dL Calcium 8.1 L (8.4-10.2) mg/dL Procalcitonin (0.02-0.50) ng/mL 02/24/25 Range/Units 06:24 RBC (4.10-5.20) 10*6/uL Hgb (12.0-15.0) g/dL Hct (37.2-46.3) % MCV (80.0-97.0) fL MCH (27.0-32.0) pg MCHC (32.0-37.0) g/dL Lymphocytes # (0.90-5.00) 10*3/uL Potassium (3.5-5.1) mmol/L Chloride (98-107) mmol/L BUN (7-17) mg/dL Glucose (74-99) mg/dL POC Glucose (mg/dL) 210 H (70-110) mg/dL Calcium (8.4-10.2) mg/dL Procalcitonin (0.02-0.50) ng/mL Microbiology - Last 24 Hours (Table) 02/21/25 19:43 Urine Culture - Final Urine,Catheterized Proteus mirabilis 02/21/25 23:35 Blood Culture Gram Stain - Preliminary Blood Blood Culture - Preliminary Proteus mirabilis Molecular ID 02/22/25 10:30 Gram Stain - Preliminary Sputum Sputum Culture - Preliminary Assessment and Plan Time with Patient: Less than 30
--- NOTE | 2025-02-24 15:02 | P.PN ---
Subjective Progress Note Date: 02/24/25 Principal diagnosis: UTI, renal calculi On February 22, the patient underwent cystoscopy with removal of bladder calculi and bilateral ureteral stent insertion. Urine and blood cultures have shown Proteus mirabilis. It appears that the patient developed ascending Proteus infections causing the formation of bilateral struvite renal calculi. She has no specific complaints at this time. Objective - Vital Signs Vital signs: Vital Signs Temp 97.8 F 02/24/25 12:00 Pulse 75 02/24/25 14:00 Resp 21 02/24/25 14:00 BP 105/48 02/24/25 14:00 Pulse Ox 94 L 02/24/25 14:00 FiO2 40 02/22/25 10:15 Intake & Output 02/23/25 02/24/25 02/24/25 18:59 06:59 18:59 Intake Total 2260 2290 905 Output Total 645 775 735 Balance 1615 1515 170 Weight 75 kg Intake: IV 1820 1540 845 0.9 KVO 130 110 80 Lactated Ringers 1,000 ml 1690 1430 765 @ 75 mls/hr IV .[id number] [facility] Rx#:[id number] Tube Feeding 440 660 60 Other 90 Output: Urine 645 775 735 Other: Voiding Method Indwelling Catheter Indwelling Catheter Indwelling Catheter # Bowel Movements 2 - Constitutional General appearance: Present: average body habitus, cooperative, no acute distress - Psychiatric Psychiatric: Present: A&O x's 3 - Labs CBC & Chem 7: 02/24/25 05:37 02/24/25 13:13 Labs: Abnormal Lab Results - Last 24 Hours (Table) 02/23/25 02/23/25 02/24/25 Range/Units 16:03 19:43 05:37 RBC 3.22 L (4.10-5.20) 10*6/uL Hgb 7.7 L (12.0-15.0) g/dL Hct 25.7 L (37.2-46.3) % MCV 79.8 L (80.0-97.0) fL MCH 23.9 L (27.0-32.0) pg MCHC 30.0 L (32.0-37.0) g/dL Lymphocytes # 0.68 L (0.90-5.00) 10*3/uL Potassium (3.5-5.1) mmol/L Chloride (98-107) mmol/L BUN (7-17) mg/dL Glucose (74-99) mg/dL POC Glucose (mg/dL) 129 H 166 H (70-110) mg/dL Calcium (8.4-10.2) mg/dL 02/24/25 02/24/25 02/24/25 Range/Units 05:37 06:24 11:34 RBC (4.10-5.20) 10*6/uL Hgb (12.0-15.0) g/dL Hct (37.2-46.3) % MCV (80.0-97.0) fL MCH (27.0-32.0) pg MCHC (32.0-37.0) g/dL Lymphocytes # (0.90-5.00) 10*3/uL Potassium 3.4 L (3.5-5.1) mmol/L Chloride 108 H (98-107) mmol/L BUN 42 H (7-17) mg/dL Glucose 197 H (74-99) mg/dL POC Glucose (mg/dL) 210 H 186 H (70-110) mg/dL Calcium 8.1 L (8.4-10.2) mg/dL Microbiology - Last 24 Hours (Table) 02/21/25 23:35 Blood Culture Gram Stain - Final Blood Blood Culture - Final Proteus mirabilis Molecular ID 02/23/25 03:26 Blood Culture - Preliminary Blood 02/22/25 10:30 Gram Stain - Final Sputum Sputum Culture - Final 02/21/25 19:43 Urine Culture - Final Urine,Catheterized Proteus mirabilis Assessment and Plan (1) Calculus of kidney Current Visit: Yes Status: Acute Code(s): N20.0 - CALCULUS OF KIDNEY SNOMED Code(s): 63574675 (2) Acute pyelonephritis Current Visit: Yes Status: Acute Code(s): N10 - ACUTE PYELONEPHRITIS SNOMED Code(s): 73468436 Plan: Continue Rocephin. When appropriate, the patient may be switched to appropriate oral antibiotics prior to discharge. Unfortunately, she may require bilateral percutaneous nephrolithotomies to remove the infected renal calculi.
[2025-02-24 16:25] LABS: Glucose,Whole Blood 136 mg/dL (70-110)
[2025-02-24 20:01] LABS: Glucose,Whole Blood 175 mg/dL (70-110)
[2025-02-25 06:04] LABS: Glucose,Whole Blood 223 mg/dL (70-110)
[2025-02-25 06:18] LABS: Basophils # (A) 0.02 10*3/uL (0.00-0.10); Basophils % (A) 0.4 %; Eosinophils # (A) 0.06 10*3/uL (0.04-0.35); Eosinophils % (A) 1.1 %; HCT 25.5 % (37.2-46.3); HGB 7.7 g/dL (12.0-15.0); Lymphocytes # (A) 0.59 10*3/uL (0.90-5.00); Lymphocytes % (A) 11.2 %; MCH 24.1 pg (27.0-32.0); MCHC 30.2 g/dL (32.0-37.0); MCV 79.9 fL (80.0-97.0); Mean Platelet Volume 9.8 fL (9.5-12.2); Monocytes # (A) 0.45 10*3/uL (0.20-1.00); Monocytes % (A) 8.6 %; Neutrophils # (A) 4.12 10*3/uL (1.80-7.70); Neutrophils % (A) 78.3 %; Platelet Count 220 10*3/uL (140-440); RBC 3.19 10*6/uL (4.10-5.20); RDW 18.8 % (11.5-14.5); WBC 5.26 10*3/uL (4.50-10.00)
[2025-02-25 06:35] LABS: African American GFR (CKD) 86 (>60 ml/min/1.73 sqM); Anion Gap 6 mmol/L; Blood Urea Nitrogen 41 mg/dL (7-17); Calcium 8.4 mg/dL (8.4-10.2); Carbon Dioxide 27 mmol/L (22-30); Chloride 106 mmol/L (98-107); Glucose 205 mg/dL (74-99); Non-African American GFR(CKD) 75 (>60 ml/min/1.73 sqM); Potassium 3.8 mmol/L (3.5-5.1); Sodium 139 mmol/L (137-145)
[2025-02-25 08:39] LABS: ALT 17 U/L (4-34); AST 17 U/L (14-36); Albumin 2.2 g/dL (3.5-5.0); Alkaline Phosphatase 112 U/L (38-126); Magnesium 1.8 mg/dL (1.6-2.3); Total Bilirubin 0.4 mg/dL (0.2-1.3); Total Protein 5.9 g/dL (6.3-8.2)
--- NOTE | 2025-02-25 08:43 | P.PN ---
Subjective Progress Note Date: 02/25/25 Urine and blood culture grown Proteus, she denies any flank pain or gross hematuria. She does have a Streeter catheter in place currently. Objective - Vital Signs Vital signs: Vital Signs Temp 97.3 F L 02/25/25 04:00 Pulse 89 02/25/25 07:00 Resp 20 02/25/25 07:00 BP 119/62 02/25/25 07:00 Pulse Ox 91 L 02/25/25 07:00 FiO2 40 02/22/25 10:15 Intake & Output 02/24/25 02/25/25 02/25/25 18:59 06:59 18:59 Intake Total 1245 1820 145 Output Total 1010 1055 60 Balance 235 765 85 Weight 75.3 kg Intake: IV 1185 1070 85 0.9 KVO 120 120 10 Lactated Ringers 1,000 ml 1065 900 75 @ 75 mls/hr IV .[id number] [facility] Rx#:[id number] cefTRIAXone 2 gm In 50 Sodium Chloride 0.9% 50 ml @ 100 mls/hr IVPB Q24H [facility] Rx#:[id number] Tube Feeding 60 660 60 Other 90 Output: Urine 1010 1055 60 Other: Voiding Method Indwelling Catheter Indwelling Catheter # Bowel Movements 2 1 - Constitutional General appearance: Present: no acute distress - Gastrointestinal General gastrointestinal: Present: soft. Absent: distended, tenderness - Labs CBC & Chem 7: 02/25/25 05:28 02/25/25 05:28 Labs: Abnormal Lab Results - Last 24 Hours (Table) 02/24/25 02/24/25 02/24/25 Range/Units 11:34 16:21 19:59 RBC (4.10-5.20) 10*6/uL Hgb (12.0-15.0) g/dL Hct (37.2-46.3) % MCV (80.0-97.0) fL MCH (27.0-32.0) pg MCHC (32.0-37.0) g/dL Lymphocytes # (0.90-5.00) 10*3/uL BUN (7-17) mg/dL Glucose (74-99) mg/dL POC Glucose (mg/dL) 186 H 136 H 175 H (70-110) mg/dL Total Protein (6.3-8.2) g/dL Albumin (3.5-5.0) g/dL 02/25/25 02/25/25 02/25/25 Range/Units 05:28 05:28 06:03 RBC 3.19 L (4.10-5.20) 10*6/uL Hgb 7.7 L (12.0-15.0) g/dL Hct 25.5 L (37.2-46.3) % MCV 79.9 L (80.0-97.0) fL MCH 24.1 L (27.0-32.0) pg MCHC 30.2 L (32.0-37.0) g/dL Lymphocytes # 0.59 L (0.90-5.00) 10*3/uL BUN 41 H (7-17) mg/dL Glucose 205 H (74-99) mg/dL POC Glucose (mg/dL) 223 H (70-110) mg/dL Total Protein 5.9 L (6.3-8.2) g/dL Albumin 2.2 L (3.5-5.0) g/dL Microbiology - Last 24 Hours (Table) 02/21/25 23:35 Blood Culture Gram Stain - Final Blood Blood Culture - Final Proteus mirabilis Molecular ID 02/23/25 03:26 Blood Culture - Preliminary Blood 02/22/25 10:30 Gram Stain - Final Sputum Sputum Culture - Final 02/21/25 19:43 Urine Culture - Final Urine,Catheterized Proteus mirabilis Assessment and Plan Assessment: Status post bilateral stent insertion on February [address] Williamson, on CT consistent with struvite stones. In addition urine and blood culture are growing Proteus. Discussed with her at this point we will keep stents in for decompression, I did discuss she will require bilateral PCNL as an outpatient.
[2025-02-25 12:04] LABS: Glucose,Whole Blood 217 mg/dL (70-110)
--- NOTE | 2025-02-25 12:48 | CA ---
Transthoracic Echo Report Name: Martín Alcaraz Age: 84 Gender: F : 1940 Exam Date: 02/25/2025 09:19 Exam Location: [place] [facility] Ht (in): 60 Wt (lb): 161 Ordering Physician: Pavithra Flores Attending/Referring Phys: [id number], Mark Field Care Coordinator Maggie Dukes, RUSSELL Procedure CPT: Indications: LVF, Afib rvr currently controlled rate Cardiac Hx: Technical Quality: Fair Contrast 1: Total Dose (mL): Contrast 2: Total Dose (mL): MEASUREMENTS (Male / Female) Normal Values 2D ECHO LV Diastolic Diameter PLAX 4.1 cm 4.2 - 5.9 / 3.9 - 5.3 cm LV Systolic Diameter PLAX 2.9 cm IVS Diastolic Thickness 1.2 cm 0.6 - 1.0 / 0.6 - 0.9 cm LVPW Diastolic Thickness 1.6 cm 0.6 - 1.0 / 0.6 - 0.9 cm LV Relative Wall Thickness 0.7 RV Internal Dim ED PLAX 1.7 cm LVOT Diameter 1.9 cm LA Systolic Diameter LX 4.6 cm 3.0 - 4.0 / 2.7 - 3.8 cm LV Diastolic Volume MOD BP 27.1 cm??? 67 - 155 / 56 - 104 cm??? LV Systolic Volume MOD BP 9.5 cm??? 22 - 58 / 19 - 49 cm??? LV Ejection Fraction MOD BP 65.0 % >= 55 % LV Cardiac Index MOD BP 877.2 cm???/min???m??? LV Diastolic Volume MOD 4C 27.5 cm??? LV Systolic Volume MOD 4C 8.5 cm??? LV Ejection Fraction MOD 4C 69.1 % LV Cardiac Index MOD 4C 945.2 cm???/min???m??? LV Diastolic Length 4C 5.4 cm LV Systolic Length 4C 2.5 cm LV Diastolic Volume MOD 2C 25.7 cm??? LV Systolic Volume MOD 2C 6.6 cm??? LV Ejection Fraction MOD 2C 74.1 % LV Cardiac Index MOD 2C 947.7 cm???/min???m??? LV Diastolic Length 2C 5.7 cm LV Systolic Length 2C 4.4 cm LA Volume 72.4 cm??? 18 - 58 / 22 - 52 cm??? LA Volume Index 40.5 cm???/m??? 16 - 28 cm???/m??? M-MODE Aortic Root Diameter MM 3.5 cm LA Systolic Diameter MM 4.3 cm LA Ao Ratio MM 1.2 AV Cusp Separation MM 1.2 cm DOPPLER AV Peak Velocity 185.8 cm/s AV Peak Gradient 13.8 mmHg AV Mean Velocity 144.3 cm/s AV Mean Gradient 9.0 mmHg AV Velocity Time Integral 42.9 cm LVOT Peak Velocity 85.8 cm/s LVOT Peak Gradient 2.9 mmHg LVOT Velocity Time Integral 20.3 cm LVOT Stroke Volume 59.1 cm??? LVOT Stroke Volume Index 34.7 ml/m??? LVOT Cardiac Index 2942.8 cm???/min???m??? AV Area Cont Eq vti 1.4 cm??? AV Area Cont Eq pk 1.3 cm??? MV Peak Velocity 149.0 cm/s MV Peak Gradient 8.9 mmHg MV Mean Velocity 92.2 cm/s MV Mean Gradient 4.0 mmHg MV Velocity Time Integral 23.6 cm MV Area PHT 3.6 cm??? Mitral E Point Velocity 101.2 cm/s Mitral A Point Velocity 53.2 cm/s Mitral E to A Ratio 1.9 MV Deceleration Time 212.3 ms TR Peak Velocity 354.2 cm/s TR Peak Gradient 50.2 mmHg Right Atrial Pressure 10.0 mmHg Pulmonary Artery Systolic Pressu 60.2 mmHg Right Ventricular Systolic Press 60.2 mmHg FINDINGS Left Ventricle Left ventricular ejection fraction is estimated at 60-65 %. Moderate increased septal wall thickness. Moderately increased posterior wall thickness. Normal left ventricular systolic function with no obvious regional wall motion abnormalities. Right Ventricle Mild right ventricular dilatation. Severe pulmonary hypertension. Right Atrium Moderate right atrial dilatation. Left Atrium Moderately increased left atrial diameter. Moderately increased left atrial volume. Mildly increased left atrial area. Mitral Valve Mitral valve thickened. Severe mitral annular calcification. Mild mitral stenosis. Mild mitral regurgitation. Aortic Valve Trileaflet aortic valve. Thickened aortic valve.mild aortic stenosis with a peak gradient of 14mmHg and a mean gradient of 9mmHg. Mild aortic regurgitation. Tricuspid Valve Structurally normal tricuspid valve. No tricuspid stenosis. Mild tricuspid regurgitation. Pulmonic Valve Structurally normal pulmonic valve. No pulmonic stenosis. Mild pulmonic regurgitation. Pericardium No pericardial effusion. Left pleural effusion. Aorta Aorta at upper limits of normal. CONCLUSIONS LVEF 60% Moderate concentric LVH No obvious regional wall motion abnormality Mild RV dilatation with severe pulmonary hypertension with RVSP of 60 mmHg Moderate biatrial dilatation Mild MR, mild TR Calcified trileaflet aortic valve with mean gradient of 9 mmHg, mild aortic stenosis Previewed by: Dr Miguel Ram (Electronically Signed) Final Date: 25 February 2025 12:46
[2025-02-25 16:33] LABS: Glucose,Whole Blood 163 mg/dL (70-110)
--- NOTE | 2025-02-25 16:42 | P.PN ---
Subjective Progress Note Date: 02/25/25 Patient is a 84-year-old female being seen in was admitted to this hospital on 02/21/2025 and admitted to this ICU today on 02/22/2025 for sepsis secondary to complicated UTI. She initially came to the ED from her [place] [facility] due to her complaint of abdominal pain. He had x-rays today that showed ileus and was transferred here to rule out possible bowel obstruction. She reports of multiple rounds of nonbloody vomiting for the past day and multiple episodes of loose nonbloody stools. No report of tarry stools. 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 Multiple non-obstructing bilateral renal calculi extending to the renal pelvises. No hydronephrosis or discrete emphysematous pyelonephritis. Chest x- ray displaying bilateral interstitial changes. Was informed that she had atrial fibrillation with RVR in the ED. She was placed on cardizem drip which has now been discontinued. She was also found agonally breathing. They ultimately decided to intubate and mechanically ventilate her along with being sedated on fentalyl drip. Initial labs displayed 10.03, hgb 11, platelet 295, Na 133, K 4, Co2 27, BUN 54, Cr .99, glucose 193. Other medical history of hypertension, CVA/TIA, diabetes mellitus, hypertension, history of uterine cancer. Patient has been seen and evaluated in the ICU on 02/22/2025. Patient is current ly sedated on propofol 20 mcg/kg/min and mechanically intubated on asssit volume control at a tidal volume of 400, set at a rate of 18 breaths/min, PEEP of 5, FiO2 of 50%. ABG while on 100% FiO2 was 408/34/7.44. She currently required pressors with levo at 0.08 mcg/kg/min, lactated Ringer's at 130 cc an hour. Patient requires PEG tube for feeds, she can resume. CXR displaying improving bilateral patchy interstitial changes. Labs displaying WBC 20.94, Hgb 8.8, hematocrit 29.1, platelet 295, sodium 132, potassium 3.8, chloride 101, CO2 20, anion gap 11, BUN 52, creatinine 1.02, glucose 200, calcium 8.2. Spoke with respiratory therapy and we will adjust her tidal volume to 350. Plan to repeat her ABG this morning. We will also attempt to wean her of sedation and potentially extubate today if she can tolerate. Will continue to follow her in the ICU. Prognosis is guarded. Patient has been seen and evaluated in the ICU on 02/23/2025. Patient is currently breathing on room air. She currently not requring any pressors, lactated Ringer's at 130 cc an hour. On cardizem drip at 5 mg/hr. She is currently on patient requires PEG tube for feeds, she can resume. Microbiology showing Proteus in the blood culture. She is currently on day 2 of ceftriaxone 2 g every 24 hours yesterday she was seen by urology and underwent cystoscopy with removal of bladder calculi and bilateral stent insertion. Multiple struvite appearing stones were removed. CXR displaying improving bilateral patchy interstitial changes, no acute cardiopulmonary process. Labs displayed WBC 6.21, Hgb 7.6, hematocrit 24.3, MCV 79.7, platelet 240, sodium 133, potassium 3.4, BUN 45, creatinine 0.98, glucose 96. Will continue to follow her in the ICU. Prognosis is guarded. The patient is seen today February 24, 2025 in follow-up in the intensive care unit. She is currently resting in bed. Awake and alert in no acute distress. She is being nourished with vital HP at 60 mL/h. Lactated Ringer's at 75 mL/h. She is continued on ceftriaxone. Urine culture was positive for Proteus mirabilis. Blood culture showing Proteus mirabilis. Sputum culture revealed no growth. White count 6.4. Hemoglobin 7.7. Platelets 245. Sodium 137. Potassium 3.4. Bicarb 24. BUN 42. Creatinine 0.91. Glucose 197. She is continued on DuoNeb inhalations. Anticoagulated with Eliquis. She has been off pressors. 02/25/2025, the patient is being seen for a follow-up. The patient is calm and comfortable and the patient is currently on 2 L of oxygen by nasal cannula. The patient has a sepsis secondary to complicated UTI with Proteus mirabilis and the patient had a left-sided pyelonephritis with emphysematous pyelitis and normal ureter. The patient is post cystoscopy and insertion of bilateral stents and multiple struvite appearing stones were removed. This morning, the patient is calm and comfortable on lactated Ringer at rate of 75 cc an hour. The patient has a Streeter catheter in place. The patient is receiving enteral feeding for nutritional support via PEG tube and the patient is on a vital HP at rate of 60 cc an hour. She has developed some increased edema lower extremities bilaterally. The white cell count is at 5.2 with a hemoglobin 7.7 and a platelet count of 220. Sodium is at 139, potassium is at 3.8, BUN is 41 with a creatinine of 0.7. LFTs are essentially within normal limits. In terms of antibiotic coverage, the patient remains on IV Rocephin 2 g every 24 hours. The patient is also on Lantus insulin 5 units daily and NovoLog/scale coverage. No abdominal pain. No significant mental status change. She is chronically debilitated and she has had a previous CVA with right-sided weakness and some aphasia. She has also hypertension and chronic anemia. Objective - Vital Signs Vital signs: Vital Signs Temp 98.2 F 02/25/25 08:00 Pulse 80 02/25/25 09:00 Resp 24 02/25/25 09:00 BP 138/60 02/25/25 09:00 Pulse Ox 93 L 02/25/25 09:00 FiO2 40 02/22/25 10:15 Intake & Output 02/24/25 02/25/25 02/25/25 18:59 06:59 18:59 Intake Total 1245 1820 315 Output Total 1010 1055 260 Balance 235 765 55 Weight 75.3 kg Intake: IV 1185 1070 105 0.9 KVO 120 120 30 Lactated Ringers 1,000 ml 1065 900 75 @ 75 mls/hr IV .[id number] NERISSA Rx#:[id number] cefTRIAXone 2 gm In 50 Sodium Chloride 0.9% 50 ml @ 100 mls/hr IVPB Q24H NERISSA Rx#:[id number] Tube Feeding 60 660 180 Other 90 30 Output: Urine 1010 1055 260 Other: Voiding Method Indwelling Catheter Indwelling Catheter Indwelling Catheter # Bowel Movements 2 1 - Exam GENERAL EXAM: Alert, frail 84-year-old female, on room air oxygen, comfortable in no apparent distress. HEAD: Normocephalic. EYES: Normal reaction of pupils, equal size. NOSE: Clear with pink turbinates. THROAT: No erythema or exudates. NECK: No masses, no JVD. CHEST: No chest wall deformity. LUNGS: Equal air entry with bilateral scattered rhonchi. CVS: S1 and S2 normal with no audible murmur, irregular rhythm. ABDOMEN: PEG tube exit site clean and dry. No hepatosplenomegaly, normal bowel sounds, no guarding or rigidity. SPINE: No scoliosis or deformity SKIN: No rashes CENTRAL NERVOUS SYSTEM: No focal deficits, tone is normal in all 4 extremities. EXTREMITIES: There is no peripheral edema. No clubbing, no cyanosis. Peripheral pulses are intact. - Labs CBC & Chem 7: 02/25/25 05:28 02/25/25 05:28 Labs: Abnormal Lab Results - Last 24 Hours (Table) 02/24/25 02/24/25 02/24/25 Range/Units 11:34 16:21 19:59 RBC (4.10-5.20) 10*6/uL Hgb (12.0-15.0) g/dL Hct (37.2-46.3) % MCV (80.0-97.0) fL MCH (27.0-32.0) pg MCHC (32.0-37.0) g/dL Lymphocytes # (0.90-5.00) 10*3/uL BUN (7-17) mg/dL Glucose (74-99) mg/dL POC Glucose (mg/dL) 186 H 136 H 175 H (70-110) mg/dL Total Protein (6.3-8.2) g/dL Albumin (3.5-5.0) g/dL 02/25/25 02/25/25 02/25/25 Range/Units 05:28 05:28 06:03 RBC 3.19 L (4.10-5.20) 10*6/uL Hgb 7.7 L (12.0-15.0) g/dL Hct 25.5 L (37.2-46.3) % MCV 79.9 L (80.0-97.0) fL MCH 24.1 L (27.0-32.0) pg MCHC 30.2 L (32.0-37.0) g/dL Lymphocytes # 0.59 L (0.90-5.00) 10*3/uL BUN 41 H (7-17) mg/dL Glucose 205 H (74-99) mg/dL POC Glucose (mg/dL) 223 H (70-110) mg/dL Total Protein 5.9 L (6.3-8.2) g/dL Albumin 2.2 L (3.5-5.0) g/dL Microbiology - Last 24 Hours (Table) 02/21/25 23:35 Blood Culture Gram Stain - Final Blood Blood Culture - Final Proteus mirabilis Molecular ID 02/23/25 03:26 Blood Culture - Preliminary Blood 02/22/25 10:30 Gram Stain - Final Sputum Sputum Culture - Final 02/21/25 19:43 Urine Culture - Final Urine,Catheterized Proteus mirabilis Assessment and Plan Plan: Sepsis secondary to complicated UTI secondary to Proteus mirabilis in the setting of left-sided emphysematous pyelitis and left-sided pneumoureter, the patient is hemodynamically stable at this point. The patient is currently on no pressors. The patient remains on IV Rocephin. Status post cystoscopy with removal of bladder calculi and bilateral stent insertion. Multiple struvite appearing stones were removed Sepsis secondary to Proteus mirabilis and the patient remains on Rocephin 2 g every 24 hours Leukocytosis secondary to above, improved Hypotension initially requiring pressors, improved and currently off pressors Atrial fibrillation with RVR, improved, anticoagulated with Eliquis Hyperglycemia in [id number] diabetic History of uterine cancer History of CVA with right-sided deficit and aphasia History of hypertension Anemia of chronic disease Plan: Calm and comfortable, currently on 2 L of O2 nasal cannula Currently stable off pressors Urine and blood cultures positive for Proteus mirabilis Remains on ceftriaxone 2 g every 24 hours Anticoagulated with Eliquis Continued on bronchodilators Remains on vital HP PEG tube feedings at 60 mL/h We will continue to follow the patient to be able to transfer out of the intensive care unit today. Time with Patient: Greater than 30
--- NOTE | 2025-02-25 17:17 | P.PN ---
Subjective This is an 84-year-old female patient of Dr. Mosley with past medical history of CAD, hypertension, hyperlipidemia, chronic lower extremity edema, diabetes, persistent atrial fibrillation, CVA. We have been asked to evaluate the patient for A-fib with RVR. Patient presented to the hospital on 02/21 due to urinary tract infection. [facility] came [facility] with complaints of abdominal pain. She also had multiple episodes of vomiting and loose stools. CAT scan showed left-sided pneumo ureter, multiple bilateral renal calculi. Patient had A-fib with RVR and initially was started on Cardizem drip. She developed agonal breathing and was intubated and placed on mechanical ventilation. Patient was subsequently extubated yesterday. Patient underwent a cystoscopy with removal of bladder calculi and bilateral stent insertions on 02/22. Blood pressure 110/56, heart rate in the 70s and 80s, pulse ox 93% on room air, respiratory rate 30. Temperature max was 102.6 on 02/21. Otherwise patient has been afebrile. Regarding atrial fibrillation, heart rate was up to 121. She is status post Cardizem 7.5 mg IV push. -EKG: Atrial fibrillation 115 bpm -Chest x-ray: No acute process. -Laboratory studies: WBC peaked at 20.9 currently 6.2, hemoglobin 7.6 down from 11.2. Sodium 133, potassium 4.7, BUN 45 creatinine 0.98. Procalcitonin 4.22. Magnesium 2.0. Urinalysis positive for UTI. Urine culture is gram-negative bacilli. Blood culture Proteus mirabilis, molecular ID. -Home cardiac medications: Eliquis 2.5 mg twice daily, atorvastatin 40 mg daily, Coreg 12.5 mg twice daily, Jardiance 10 mg daily, Lasix 20 mg daily. -Echocardiogram performed 03/05/2024 at [facility] revealed EF of 65 to 70% with mild LVH. -Jazmyne scan Cardiolite stress test performed in the office 07/07/2022 revealed inconclusive EKG part of the stress test due to baseline EKG abnormalities. Abnormal nuclear scan showing ischemia involving the inferior lateral wall. 02/24 Patient seen and examined in the intensive care unit. Patient is currently off oxygen. She has had some nausea per her nurse. Patient denies pain. Echocardiogram is pending. Blood pressure 127/74, heart rate 84, pulse ox 94% on room air. Repeat blood work reveals hemoglobin 7.7, potassium 3.4, BUN 42 creatinine 0.91. 02/25 Patient seen and examined. Patient denies any chest pain or pressure. She wants to eat food however receiving tube feeds. Echocardiogram performed with a EF 60% with RVSP 60 and mild aortic stenosis. Physical examination: Gen: This is an 84-year-old female in no acute respiratory distress. VS: reviewed HEENT: Head is atraumatic, normocephalic. Pupils equal, round. Sclerae is anicteric. NECK: Supple. No JVD. LUNGS: Clear to auscultation. No wheezes or rhonchi. No intercostal retractions. HEART: Regular rate and rhythm. No murmur. ABDOMEN: Soft No tenderness. EXTREMITIES: No pedal edema. No calf tenderness. NEUROLOGICAL: Patient is awake, alert. Unable to understand patient's garbled speech that is secondary to previous CVA. Assessment: Sepsis secondary to UTI, pyelonephritis, left-sided pneumo ureter status post cystoscopy and removal of bladder calculi and bilateral stent insertion on 02/22 Proteus bacteremia Acute hypoxic respiratory failure requiring intubation, subsequently extubated Acute on chronic anemia Persistent atrial fibrillation with episode of RVR, currently rate controlled History of coronary artery disease including left main 80%, mid LAD 60 to 70%, circumflex 100%, status post PCI of the left main into the LAD 10/23/2023 History of CVA with right-sided deficit and aphasia status post PEG tube Hypertension Hyperlipidemia History of uterine cancer Mild aortic stenosis Plan: Continue current cardiac medications: Eliquis 2.5 mg twice daily, atorvastatin Continue increased dose of Coreg 25 mg twice daily Continue telemetry monitoring Echo showing preserved EF. Continue with current regimen Further recommendations to follow based upon clinical course Objective - Vital Signs Vital signs: Vital Signs Temp 98.2 F 02/25/25 14:00 Pulse 82 02/25/25 14:00 Resp 27 H 02/25/25 14:00 BP 129/60 02/25/25 14:00 Pulse Ox 99 02/25/25 14:00 FiO2 40 02/22/25 10:15 Intake & Output 02/24/25 02/25/25 02/25/25 18:59 06:59 18:59 Intake Total 1245 1820 925 Output Total 1010 1055 735 Balance 235 765 190 Weight 75.3 kg 75.3 kg Intake: IV 1185 1070 385 0.9 KVO 120 120 60 Lactated Ringers 1,000 ml 1065 900 325 @ 20 mls/hr IV .Q24H NERISSA Rx#:[id number] cefTRIAXone 2 gm In 50 Sodium Chloride 0.9% 50 ml @ 100 mls/hr IVPB Q24H NERISSA Rx#:[id number] Tube Feeding 60 660 480 Other 90 60 Output: Urine 1010 1055 735 Other: Voiding Method Indwelling Catheter Indwelling Catheter Indwelling Catheter # Bowel Movements 2 1 - Labs CBC & Chem 7: 02/25/25 05:28 02/25/25 05:28 Labs: Abnormal Lab Results - Last 24 Hours (Table) 02/24/25 02/25/25 02/25/25 Range/Units 19:59 05:28 05:28 RBC 3.19 L (4.10-5.20) 10*6/uL Hgb 7.7 L (12.0-15.0) g/dL Hct 25.5 L (37.2-46.3) % MCV 79.9 L (80.0-97.0) fL MCH 24.1 L (27.0-32.0) pg MCHC 30.2 L (32.0-37.0) g/dL Lymphocytes # 0.59 L (0.90-5.00) 10*3/uL BUN 41 H (7-17) mg/dL Glucose 205 H (74-99) mg/dL POC Glucose (mg/dL) 175 H (70-110) mg/dL Total Protein 5.9 L (6.3-8.2) g/dL Albumin 2.2 L (3.5-5.0) g/dL 02/25/25 02/25/25 02/25/25 Range/Units 06:03 12:02 16:32 RBC (4.10-5.20) 10*6/uL Hgb (12.0-15.0) g/dL Hct (37.2-46.3) % MCV (80.0-97.0) fL MCH (27.0-32.0) pg MCHC (32.0-37.0) g/dL Lymphocytes # (0.90-5.00) 10*3/uL BUN (7-17) mg/dL Glucose (74-99) mg/dL POC Glucose (mg/dL) 223 H 217 H 163 H (70-110) mg/dL Total Protein (6.3-8.2) g/dL Albumin (3.5-5.0) g/dL Microbiology - Last 24 Hours (Table) 02/22/25 15:34 Urine Culture - Preliminary Urine,Voided Staphylococcus aureus Gram Neg Bacilli 02/23/25 03:26 Blood Culture - Preliminary Blood 02/21/25 23:35 Blood Culture Gram Stain - Final Blood Blood Culture - Final Proteus mirabilis Molecular ID
[2025-02-25 19:56] LABS: Glucose,Whole Blood 139 mg/dL (70-110)
[2025-02-26 06:21] LABS: Glucose,Whole Blood 138 mg/dL (70-110)
[2025-02-26] MEDS: POTASSIUM BICARBONATE/CIT AC 20 MEQ TABLET.EFF PO ONE (09:05)
--- NOTE | 2025-02-26 09:13 | P.PN ---
Subjective Progress Note Date: 02/25/25 This is a 84-year-old female who presented to the emergency department from [facility] where she resides with abdominal pain with multiple episodes of nausea and vomiting with concerns of possible ileus and came here for further evaluation. Patient follows with Dr. Gaston in the outpatient setting with a umang st medical history of atrial fibrillation, CVA/TIA, diabetes mellitus, hypertension, osteoarthritis, history of uterine cancer with incontinence of urine and recurrent urinary tract infections. Patient with concerns of sepsis and hypotensive requiring pressor support and also noted to be obtunded shortly after and in a team was called and noted to have agonal respirations and patient was ultimately intubated to protect airway and brought to the ICU. Labs reviewed on admission showing a mildly elevated white count of 10.03 although this morning is worsening at 20.94, hemoglobin 11.2 and repeat 8.8, sodium 133, potassium 4.0, BUN 54 with a creatinine of 0.99, magnesium 2.0, AST mildly elevated at 40, ALT 34, urinalysis performed with large leukocyte esterase and high WBCs with concerns of urinary tract infection and patient started on Rocephin with infectious disease on consult. 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 EKG showed atrial fibrillation with RVR and was initially started on Cardizem which has been discontinued and currently rate controlled. Pulmonary boat engine mechanic was consulted for ICU admission along with infectious disease and urology. Patient being admitted with sepsis secondary to UTI with concerns of septic shock requiring pressor support. 02/23/2025 Patient is evaluated in follow-up in the ICU. She is status post cystoscopy with removal of bladder calculi and the bilateral ureteral stent placement. Blood culture is positive for negative bacilli with Proteus species detected urine culture is showing gram-negative bacilli. Patient is calling out and seems confused today regarding her procedure. Patient was updated on current medical procedures and plan we will continue to reorient the patient and reinforce teaching. She continues on IV ceftriaxone. She is weaned off of Levophed and blood pressure is currently 102/43. A chest x-ray this morning which reveals no acute cardiopulmonary disease/process and there is a been interval removal of NG and endotracheal tubes. She is currently extubated and maintaining oxygen saturations on 3 L of oxygen via nasal cannula. 02/24/2025 Patient evaluated in the intensive care unit. She is status post cystoscopy with bilateral ureteral placement and removal of bladder calculi. Urine culture and blood culture are both revealing Proteus Mirabellis. She continues on IV ceftriaxone and ID is following this patient closely as well as urology. Her labs today reveal a white blood cell count of 6.41, hemoglobin 7.7, sodium of 137, potassium 3.4, BUN of 42 creatinine of 0.91. Calcium level is 8.1. Her procalcitonin level was elevated at 4.22. 02/25/2025 Patient is seen in follow-up continues to be in the ICU with multiple consultations following including urology and patient is status post cystoscopy with bilateral stent placement. Urine cultures showing Proteus and is continued on ceftriaxone and will discuss further with infectious disease regarding disch arge planning and antibiotics. Patient resides at [facility] with plans on returning there on discharge. Patient remains n.p.o. at this time and was tentatively scheduled for swallow study although is undergoing modified barium swallow in 24 hours. Patient does have PEG tube and is maintained on tube feedings and tolerating thus far. REVIEW OF SYSTEMS: CONSTITUTIONAL: No fever, no malaise, reports of fatigue. HEENT: No recent visual problems or hearing problems. Denied any sore throat. CARDIOVASCULAR: No chest pain, orthopnea, PND, no palpitations, no syncope. PULMONARY: No reports of shortness of breath, no cough, no hemoptysis. Reports of dry raspy voice and sore throat GASTROINTESTINAL: No diarrhea, no further reports of nausea, no further reports of vomiting, reports of diffuse abdominal pain. NEUROLOGICAL: No headaches, reports of generalized weakness, no numbness. PHYSICAL EXAMINATION: GENERAL: The patient is lethargic although arousable, alert and oriented x 2, fatigues easily,, continued on 2 L. Well developed, elderly appearing, ill- appearing HEENT: Pupils are round and equally reacting to light. EOMI. No scleral icterus. No conjunctival pallor. Normocephalic, atraumatic. No pharyngeal erythema. No thyromegaly. CARDIOVASCULAR: S1 and S2 muffled PULMONARY: Diminished breath sounds bilaterally otherwise chest is clear to auscultation, no wheezing or crackles. ABDOMEN: Soft, nontender, nondistended, normoactive bowel sounds. No palpable organomegaly. PEG tube noted in tube feeds tolerating MUSCULOSKELETAL: No joint swelling or deformity. EXTREMITIES: No cyanosis, clubbing, or pedal edema. NEUROLOGICAL: Gross neurological examination did not reveal any focal deficits. Diffusely weak SKIN: No rashes. Assessment: Acute urinary tract infection with pyelonephritis, present on admission, secondary to indwelling Streeter catheter with sepsis and septic shock requiring ICU admission, cultures with complicated Proteus Kidney calculus with left-sided emphysematous pyelitis and left-sided pneumonia ureter patient is status post cystoscopy with removal of bladder calculi and placement of bilateral ureteral stenting Hypotension requiring pressor support secondary to above, weaned off at this time Increased unresponsiveness requiring mechanical ventilation to protect airway, recently extubated and improved currently maintained on 2 L via nasal cannula Acute hypoxic respiratory failure secondary to sepsis Leukocytosis, secondary to #1 History of CVA/TIA with right-sided deficit and aphasia History of atrial fibrillation with a brief episode of rapid ventricular rate, currently rate controlled Iron deficiency anemia Diabetes mellitus type 2 history History of hypertension History of osteoarthritis History of uterine cancer GI prophylaxis DVT prophylaxis Full code Plan: Patient was admitted with urinary tract infection with sepsis, present on admission secondary to chronic indwelling Streeter catheter and patient resides at an [facility]. Patient did have an x-ray in the outpatient setting with concerns of possible ileus and sent here for further evaluation as patient was having multiple episodes of nausea and vomiting along with liquid stools and abdominal pain Patient with chronic indwelling Streeter catheter with issues since CVA last year with multiple recurrent UTIs and some Proteus resistance and previous urine cultures. Blood culture and urine culture revealing gram-negative bacilli blood culture has isolated Proteus species and patient continues currently on IV ceftriaxone with ID following closely. Patient was intubated and meeting weaning parameters per pulmonary boat engine mechanic and patient was just extubated currently maintained on 2 L and is awake, answering questions and following commands appropriately. Pressor support has been weaned All medications will be reviewed and resumed as appropriate Patient is NPO with chronic Peg tube in place and continues on enteral feedings. Modified barium swallow tentatively scheduled for today although being arranged for tomorrow morning Patient is chronically on oral iron through her PEG tube. Consider IV iron due to decreasing hemoglobin. Follow-up on repeat labs and replace electrolytes per protocol Continue monitoring Accu-Cheks AC and at bedtime will continue sliding scale and adjust accordingly. Low-dose long-acting ordered and will continue to adjust as needed Cardiology following as patient did have a brief episode of atrial fibrillation with RVR with history of A-fib, currently rate controlled and will continue telemetry monitoring Patient is anticoagulated with eliquis and will continue Plan will be for return to [facility] on discharge and will consult case management/social work to arrange once patient is stabilized. Possible discharge planning in the next 24 hours The impression and plan of care has been dictated by Ivy Araya, Nurse Practitioner as directed. Dr. Nitin MD I have performed a history and examination and MDM of this patient, discussed the same with the dictator, and agree with the dictator's assessment and plan as written ,documented as a scribe. Based on total visit time, I have performed more than 50% of the visit. Objective - Vital Signs Vital signs: Vital Signs Temp 97.3 F L 02/25/25 04:00 Pulse 89 02/25/25 07:00 Resp 20 02/25/25 07:00 BP 119/62 02/25/25 07:00 Pulse Ox 91 L 02/25/25 07:00 FiO2 40 02/22/25 10:15 Intake & Output 02/24/25 02/25/25 02/25/25 18:59 06:59 18:59 Intake Total 1245 1820 145 Output Total 1010 1055 60 Balance 235 765 85 Weight 75.3 kg Intake: IV 1185 1070 85 0.9 KVO 120 120 10 Lactated Ringers 1,000 ml 1065 900 75 @ 75 mls/hr IV .[id number] [facility] Rx#:[id number] cefTRIAXone 2 gm In 50 Sodium Chloride 0.9% 50 ml @ 100 mls/hr IVPB Q24H [facility] Rx#:[id number] Tube Feeding 60 660 60 Other 90 Output: Urine 1010 1055 60 Other: Voiding Method Indwelling Catheter Indwelling Catheter # Bowel Movements 2 1 - Labs CBC & Chem 7: 02/25/25 05:28 02/25/25 05:28 Labs: Abnormal Lab Results - Last 24 Hours (Table) 02/24/25 02/24/25 02/24/25 Range/Units 11:34 16:21 19:59 RBC (4.10-5.20) 10*6/uL Hgb (12.0-15.0) g/dL Hct (37.2-46.3) % MCV (80.0-97.0) fL MCH (27.0-32.0) pg MCHC (32.0-37.0) g/dL Lymphocytes # (0.90-5.00) 10*3/uL BUN (7-17) mg/dL Glucose (74-99) mg/dL POC Glucose (mg/dL) 186 H 136 H 175 H (70-110) mg/dL Total Protein (6.3-8.2) g/dL Albumin (3.5-5.0) g/dL 02/25/25 02/25/25 02/25/25 Range/Units 05:28 05:28 06:03 RBC 3.19 L (4.10-5.20) 10*6/uL Hgb 7.7 L (12.0-15.0) g/dL Hct 25.5 L (37.2-46.3) % MCV 79.9 L (80.0-97.0) fL MCH 24.1 L (27.0-32.0) pg MCHC 30.2 L (32.0-37.0) g/dL Lymphocytes # 0.59 L (0.90-5.00) 10*3/uL BUN 41 H (7-17) mg/dL Glucose 205 H (74-99) mg/dL POC Glucose (mg/dL) 223 H (70-110) mg/dL Total Protein 5.9 L (6.3-8.2) g/dL Albumin 2.2 L (3.5-5.0) g/dL Microbiology - Last 24 Hours (Table) 02/21/25 23:35 Blood Culture Gram Stain - Final Blood Blood Culture - Final Proteus mirabilis Molecular ID 02/23/25 03:26 Blood Culture - Preliminary Blood 02/22/25 10:30 Gram Stain - Final Sputum Sputum Culture - Final 02/21/25 19:43 Urine Culture - Final Urine,Catheterized Proteus mirabilis
[2025-02-26 12:15] LABS: Glucose,Whole Blood 156 mg/dL (70-110)
--- NOTE | 2025-02-26 13:12 | FL ---
Exam Date: 02/26/2025 12:52 PM. Modified barium swallow for dysphagia. Consistencies administered: Various consistency of barium. No images were sent to PACS. Please see speech pathology report. DAP: Not recorded mGym2 [facility], , 02/26/2025 1:09 PM
--- NOTE | 2025-02-26 14:11 | P.PN ---
Subjective Progress Note Date: 02/26/25 Patient is a 84-year-old female being seen in was admitted to this hospital on 02/21/2025 and admitted to this ICU today on 02/22/2025 for sepsis secondary to complicated UTI. She [facility] ED from [facility] due to her complaint of abdominal pain. He had x-rays today that showed ileus and was transferred here to rule out possible bowel obstruction. She reports of multiple rounds of nonbloody vomiting for the past day and multiple episodes of loose nonbloody stools. No report of tarry stools. 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 Multiple non-obstructing bilateral renal calculi extending to the renal pelvises. No hydronephrosis or discrete emphysematous pyelonephritis. Chest x- ray displaying bilateral interstitial changes. Was informed that she had atrial fibrillation with RVR in the ED. She was placed on cardizem drip which has now been discontinued. She was also found agonally breathing. They ultimately decided to intubate and mechanically ventilate her along with being sedated on fentalyl drip. Initial labs displayed 10.03, hgb 11, platelet 295, Na 133, K 4, Co2 27, BUN 54, Cr .99, glucose 193. Other medical history of hypertension, CVA/TIA, diabetes mellitus, hypertension, history of uterine cancer. Patient has been seen and evaluated in the ICU on 02/22/2025. Patient is current ly sedated on propofol 20 mcg/kg/min and mechanically intubated on asssit volume control at a tidal volume of 400, set at a rate of 18 breaths/min, PEEP of 5, FiO2 of 50%. ABG while on 100% FiO2 was 408/34/7.44. She currently required pressors with levo at 0.08 mcg/kg/min, lactated Ringer's at 130 cc an hour. Patient requires PEG tube for feeds, she can resume. CXR displaying improving bilateral patchy interstitial changes. Labs displaying WBC 20.94, Hgb 8.8, hematocrit 29.1, platelet 295, sodium 132, potassium 3.8, chloride 101, CO2 20, anion gap 11, BUN 52, creatinine 1.02, glucose 200, calcium 8.2. Spoke with respiratory therapy and we will adjust her tidal volume to 350. Plan to repeat her ABG this morning. We will also attempt to wean her of sedation and potentially extubate today if she can tolerate. Will continue to follow her in the ICU. Prognosis is guarded. Patient has been seen and evaluated in the ICU on 02/23/2025. Patient is currently breathing on room air. She currently not requring any pressors, lactated Ringer's at 130 cc an hour. On cardizem drip at 5 mg/hr. She is currently on patient requires PEG tube for feeds, she can resume. Microbiology showing Proteus in the blood culture. She is currently on day 2 of ceftriaxone 2 g every 24 hours yesterday she was seen by urology and underwent cystoscopy with removal of bladder calculi and bilateral stent insertion. Multiple struvite appearing stones were removed. CXR displaying improving bilateral patchy interstitial changes, no acute cardiopulmonary process. Labs displayed WBC 6.21, Hgb 7.6, hematocrit 24.3, MCV 79.7, platelet 240, sodium 133, potassium 3.4, BUN 45, creatinine 0.98, glucose 96. Will continue to follow her in the ICU. Prognosis is guarded. The patient is seen today February 24, 2025 in follow-up in the intensive care unit. She is currently resting in bed. Awake and alert in no acute distress. She is being nourished with vital HP at 60 mL/h. Lactated Ringer's at 75 mL/h. She is continued on ceftriaxone. Urine culture was positive for Proteus mirabilis. Blood culture showing Proteus mirabilis. Sputum culture revealed no growth. White count 6.4. Hemoglobin 7.7. Platelets 245. Sodium 137. Potassium 3.4. Bicarb 24. BUN 42. Creatinine 0.91. Glucose 197. She is continued on DuoNeb inhalations. Anticoagulated with Eliquis. She has been off pressors. 02/25/2025, the patient is being seen for a follow-up. The patient is calm and comfortable and the patient is currently on 2 L of oxygen by nasal cannula. The patient has a sepsis secondary to complicated UTI with Proteus mirabilis and the patient had a left-sided pyelonephritis with emphysematous pyelitis and normal ureter. The patient is post cystoscopy and insertion of bilateral stents and multiple struvite appearing stones were removed. This morning, the patient is calm and comfortable on lactated Ringer at rate of 75 cc an hour. The patient has a Streeter catheter in place. The patient is receiving enteral feeding for nutritional support via PEG tube and the patient is on a vital HP at rate of 60 cc an hour. She has developed some increased edema lower extremities bilaterally. The white cell count is at 5.2 with a hemoglobin 7.7 and a platelet count of 220. Sodium is at 139, potassium is at 3.8, BUN is 41 with a creatinine of 0.7. LFTs are essentially within normal limits. In terms of antibiotic coverage, the patient remains on IV Rocephin 2 g every 24 hours. The patient is also on Lantus insulin 5 units daily and NovoLog/scale coverage. No abdominal pain. No significant mental status change. She is chronically debilitated and she has had a previous CVA with right-sided weakness and some aphasia. She has also hypertension and chronic anemia. On , seen the patient for a follow-up. She is awake and alert and she is currently on room air oxygen. As stated earlier, she has dementia. She continues to receive enteral feeding for nutritional support. The urine culture was positive for Proteus mirabilis and the blood culture was also positive for Proteus mirabilis and the patient remains on IV Rocephin. Hemodynamically stable. Tolerating diet. The white cell count is 5.2 with a hemoglobin 7.7 and a platelet count of 220 from yesterday. No repeat CBC is available from today. However, the patient is doing well. No significant issues over the past 24 hours. As stated, the patient is chronically debilitated. The patient has been involved in a previous CVA that resulted in 2 some difficulties with speech and right-sided weakness. Objective - Vital Signs Vital signs: Vital Signs Temp 97.6 F 02/26/25 09:00 Pulse 77 02/26/25 09:00 Resp 15 02/26/25 09:00 BP 133/95 02/26/25 09:00 Pulse Ox 97 02/26/25 09:00 FiO2 40 02/22/25 10:15 Intake & Output 02/25/25 02/26/25 02/26/25 18:59 06:59 18:59 Intake Total 1245 170 494 Output Total 985 600 275 Balance 260 -430 219 Weight 75.3 kg 75.4 kg Intake: IV 485 170 0.9 KVO 60 Lactated Ringers 1,000 ml 425 120 @ 20 mls/hr IV .Q24H [facility] Rx#:[id number] cefTRIAXone 2 gm In 50 Sodium Chloride 0.9% 50 ml @ 100 mls/hr IVPB Q24H [facility] Rx#:[id number] Tube Feeding 670 494 Other 90 Output: Urine 985 600 275 Other: Voiding Method Indwelling Catheter Indwelling Catheter # Bowel Movements 3 - Exam GENERAL EXAM: Alert, frail 84-year-old female, on room air oxygen, comfortable in no apparent distress. HEAD: Normocephalic. EYES: Normal reaction of pupils, equal size. NOSE: Clear with pink turbinates. THROAT: No erythema or exudates. NECK: No masses, no JVD. CHEST: No chest wall deformity. LUNGS: Equal air entry with bilateral scattered rhonchi. CVS: S1 and S2 normal with no audible murmur, irregular rhythm. ABDOMEN: PEG tube exit site clean and dry. No hepatosplenomegaly, normal bowel sounds, no guarding or rigidity. SPINE: No scoliosis or deformity SKIN: No rashes CENTRAL NERVOUS SYSTEM: No focal deficits, tone is normal in all 4 extremities. EXTREMITIES: There is no peripheral edema. No clubbing, no cyanosis. Peripheral pulses are intact. - Labs CBC & Chem 7: 02/25/25 05:28 02/25/25 05:28 Labs: Abnormal Lab Results - Last 24 Hours (Table) 02/25/25 02/25/25 02/25/25 Range/Units 12:02 16:32 19:54 POC Glucose (mg/dL) 217 H 163 H 139 H (70-110) mg/dL 02/26/25 Range/Units 06:20 POC Glucose (mg/dL) 138 H (70-110) mg/dL Microbiology - Last 24 Hours (Table) 02/22/25 15:34 Urine Culture - Final Urine,Voided Methicillin resist S. aureus Proteus mirabilis 02/23/25 03:26 Blood Culture - Preliminary Blood Assessment and Plan Plan: Sepsis secondary to complicated UTI secondary to Proteus mirabilis in the setting of left-sided emphysematous pyelitis and left-sided pneumoureter, the patient is hemodynamically stable at this point. The patient is currently on no pressors. The patient remains on IV Rocephin. Status post cystoscopy with removal of bladder calculi and bilateral stent insertion. Multiple struvite appearing stones were removed Sepsis secondary to Proteus mirabilis and the patient remains on Rocephin 2 g every 24 hours Leukocytosis secondary to above, improved Hypotension initially requiring pressors, improved and currently off pressors Atrial fibrillation with RVR, improved, anticoagulated with Eliquis Hyperglycemia in [id number] diabetic History of uterine cancer History of CVA with right-sided deficit and aphasia History of hypertension Anemia of chronic disease Plan: Calm and comfortable, currently on room air oxygen Currently stable off pressors Urine and blood cultures positive for Proteus mirabilis Remains on ceftriaxone 2 g every 24 hours Anticoagulated with Eliquis Continued on bronchodilators Remains on vital HP PEG tube feedings at 60 mL/h We will continue to follow the patient to be able to transfer out of the intensive care unit today. Time with Patient: Greater than 30
--- NOTE | 2025-02-26 15:11 | P.PN ---
Subjective Progress Note Date: 02/25/25 Principal diagnosis: Reason for follow-up is UTI and bacteremia Patient is a 84-year-old female with a past medical he significant for diabetes mellitus hypertension osteoarthritis CVA TIA and atrial fibrillation, history of recurrent UTI patient was brought into the hospital for evaluation of abdominal pain, patient presents with sepsis secondary to UTI/pyelonephritis and blood cultures came back positive with Proteus Mirabelis. Patient is status post Cystoscopy, removal of bladder calculi, bilateral ureteral stent insertion completed on 02/22/2025. On today's evaluation that is 02/25/2025, patient has been afebrile, patient is breathing comfortably and is currently on room air, patient denies having any chest pain did have occasional cough, patient denies nausea vomiting or diarrhea and no abdominal pain. Patient white count is 5.26, creatinine 0.75 Objective - Vital Signs Vital signs: Vital Signs Temp 98.2 F 02/25/25 14:00 Pulse 82 02/25/25 14:00 Resp 27 H 02/25/25 14:00 BP 129/60 02/25/25 14:00 Pulse Ox 99 02/25/25 14:00 FiO2 40 02/22/25 10:15 Intake & Output 02/24/25 02/25/25 02/25/25 18:59 06:59 18:59 Intake Total 1245 1820 925 Output Total 1010 1055 735 Balance 235 765 190 Weight 75.3 kg 75.3 kg Intake: IV 1185 1070 385 0.9 KVO 120 120 60 Lactated Ringers 1,000 ml 1065 900 325 @ 20 mls/hr IV .Q24H [facility] Rx#:[id number] cefTRIAXone 2 gm In 50 Sodium Chloride 0.9% 50 ml @ 100 mls/hr IVPB Q24H [facility] Rx#:[id number] Tube Feeding 60 660 480 Other 90 60 Output: Urine 1010 1055 735 Other: Voiding Method Indwelling Catheter Indwelling Catheter Indwelling Catheter # Bowel Movements 2 1 - Exam GENERAL DESCRIPTION: An elderly female lying in bed in no distress RESPIRATORY SYSTEM: Unlabored breathing , decreased breath sounds at bases HEART: S1 S2 regular rate and rhythm , ABDOMEN: Soft , no tenderness EXTREMITIES: No edema feet - Labs CBC & Chem 7: 02/25/25 05:28 02/25/25 05:28 Labs: Abnormal Lab Results - Last 24 Hours (Table) 02/24/25 02/24/25 02/25/25 Range/Units 16:21 19:59 05:28 RBC 3.19 L (4.10-5.20) 10*6/uL Hgb 7.7 L (12.0-15.0) g/dL Hct 25.5 L (37.2-46.3) % MCV 79.9 L (80.0-97.0) fL MCH 24.1 L (27.0-32.0) pg MCHC 30.2 L (32.0-37.0) g/dL Lymphocytes # 0.59 L (0.90-5.00) 10*3/uL BUN (7-17) mg/dL Glucose (74-99) mg/dL POC Glucose (mg/dL) 136 H 175 H (70-110) mg/dL Total Protein (6.3-8.2) g/dL Albumin (3.5-5.0) g/dL 02/25/25 02/25/25 02/25/25 Range/Units 05:28 06:03 12:02 RBC (4.10-5.20) 10*6/uL Hgb (12.0-15.0) g/dL Hct (37.2-46.3) % MCV (80.0-97.0) fL MCH (27.0-32.0) pg MCHC (32.0-37.0) g/dL Lymphocytes # (0.90-5.00) 10*3/uL BUN 41 H (7-17) mg/dL Glucose 205 H (74-99) mg/dL POC Glucose (mg/dL) 223 H 217 H (70-110) mg/dL Total Protein 5.9 L (6.3-8.2) g/dL Albumin 2.2 L (3.5-5.0) g/dL Microbiology - Last 24 Hours (Table) 02/23/25 03:26 Blood Culture - Preliminary Blood 02/21/25 23:35 Blood Culture Gram Stain - Final Blood Blood Culture - Final Proteus mirabilis Molecular ID Assessment and Plan (1) Acute pyelonephritis Current Visit: Yes Status: Acute Code(s): N10 - ACUTE PYELONEPHRITIS SNOMED Code(s): 79772938 (2) Sepsis Current Visit: No Status: Acute Code(s): A41.9 - SEPSIS, UNSPECIFIED ORGANISM SNOMED Code(s): 88554864 (3) Bacteremia Current Visit: Yes Status: Acute Code(s): R78.81 - BACTEREMIA SNOMED Code(s): 9777529 Plan: 1patient presented to the hospital with sepsis/septic shock in this patient who did have fever tachycardia elevated white count hypotension meeting criteria for SIRS/sepsis source is likely urinary with 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 please excuse any grammatical, word or spelling errors. Time with Patient: Less than 30
[2025-02-26] MEDS ORDERED: VANCOMYCIN IV PER PHARMACY 1 EACH MISC MISCELLANE PRN (15:12)
--- NOTE | 2025-02-26 15:12 | P.PN ---
Subjective Progress Note Date: 02/26/25 Principal diagnosis: Reason for follow-up is UTI and bacteremia Patient is a 84-year-old female with a past medical he significant for diabetes mellitus hypertension osteoarthritis CVA TIA and atrial fibrillation, history of recurrent UTI patient was brought into the hospital for evaluation of abdominal pain, patient presents with sepsis secondary to UTI/pyelonephritis and blood cultures came back positive with Proteus Mirabelis. Patient is status post Cystoscopy, removal of bladder calculi, bilateral ureteral stent insertion completed on 02/22/2025. On today's evaluation that is 02/26/2025, Patient is afebrile this morning patient denies having any chest pain shortness of breath did have occasional dry cough, the patient is currently on room air, patient denies any abdominal pain no diarrhea no nausea no vomiting. No new lab has been obtained today blood culture repeat has been negative, repeat urine is now also growing MRSA in addition to the Proteus Objective - Vital Signs Vital signs: Vital Signs Temp 97.6 F 02/26/25 09:00 Pulse 85 02/26/25 14:30 Resp 15 02/26/25 14:30 BP 144/66 02/26/25 14:30 Pulse Ox 97 02/26/25 14:30 FiO2 40 02/22/25 10:15 Intake & Output 02/25/25 02/26/25 02/26/25 18:59 06:59 18:59 Intake Total 1245 170 494 Output Total 985 600 275 Balance 260 -430 219 Weight 75.3 kg 75.4 kg Intake: IV 485 170 0.9 KVO 60 Lactated Ringers 1,000 ml 425 120 @ 20 mls/hr IV .Q24H [facility] Rx#:[id number] cefTRIAXone 2 gm In 50 Sodium Chloride 0.9% 50 ml @ 100 mls/hr IVPB Q24H [facility] Rx#:[id number] Tube Feeding 670 494 Other 90 Output: Urine 985 600 275 Other: Voiding Method Indwelling Catheter Indwelling Catheter Indwelling Catheter # Bowel Movements 3 - Exam GENERAL DESCRIPTION: An elderly female lying in bed in no distress RESPIRATORY SYSTEM: Unlabored breathing , decreased breath sounds at bases HEART: S1 S2 regular rate and rhythm , ABDOMEN: Soft , no tenderness EXTREMITIES: No edema feet - Labs CBC & Chem 7: 02/25/25 05:28 06/02/25 05:28 Labs: Abnormal Lab Results - Last 24 Hours (Table) 02/25/25 02/25/25 02/26/25 Range/Units 16:32 19:54 06:20 POC Glucose (mg/dL) 163 H 139 H 138 H (70-110) mg/dL 02/26/25 Range/Units 12:14 POC Glucose (mg/dL) 156 H (70-110) mg/dL Microbiology - Last 24 Hours (Table) 02/23/25 03:26 Blood Culture - Preliminary Blood 02/22/25 15:34 Urine Culture - Final Urine,Voided Methicillin resist S. 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 as seen on the CT and will need to cover for the resistant gram-negative to be the likely pathogen with the last urine culture positive for Pseudomonas aeruginosa 2-patient has been evaluated by urology and is status post cystoscopy removal of bladder stone and bilateral ureteral stenting completed on 02/22/2025 3-cultures came back positive with a Proteus source likely urinary, repeat urine culture also growing MRSA this sample obtained after the patient did have urinary intervention 4-I will repeat a UA and culture add vancomycin pharmacy to dose and continue with Rocephin Dictation was produced using [employer] dictation software. please excuse any grammatical, word or spelling errors. Time with Patient: Less than 30
[2025-02-26] MEDS: VANCOMYCIN 1,500 MG in SODIUM CHLORIDE 0.9% 500 ML 500 ML IVPB SCH (15:45)
[2025-02-26 16:09] LABS: Appearance,Urine Turbid (Clear); Bilirubin,Urine Negative (Negative); Blood,Urine Moderate (Negative); Color,Urine Yellow; Glucose,Urine (UA) Negative (Negative); Ketones,Urine Negative (Negative); Leukocyte Esterase,Urine Large (Negative); Mucus,Urine Occasional /hpf; Nitrite,Urine Negative (Negative); PH, Urine 7.5 (5.0-8.0); Protein,Urine 2+ (Negative); RBC,Urine >182 /hpf (0-5); Specific Gravity,Urine 1.018 (1.001-1.035); Urobilinogen,Urine <2.0 mg/dL (<2.0); WBC,Urine >182 /hpf (0-5)
--- NOTE | 2025-02-26 16:14 | P.PN ---
Subjective This is an 84-year-old female patient of Dr. Mosley with past medical history of CAD, hypertension, hyperlipidemia, chronic lower extremity edema, diabetes, persistent atrial fibrillation, CVA. We have been asked to evaluate the patient for A-fib with RVR. Patient presented to the hospital on 02/21 due to urinary tract infection. Patient came from half-way with complaints of abdominal pain. She also had multiple episodes of vomiting and loose stools. CAT scan showed left-sided pneumo ureter, multiple bilateral renal calculi. Patient had A-fib with RVR and initially was started on Cardizem drip. She developed agonal breathing and was intubated and placed on mechanical ventilation. Patient was subsequently extubated yesterday. Patient underwent a cystoscopy with removal of bladder calculi and bilateral stent insertions on 02/22. Blood pressure 110/56, heart rate in the 70s and 80s, pulse ox 93% on room air, respiratory rate 30. Temperature max was 102.6 on 02/21. Otherwise patient has been afebrile. Regarding atrial fibrillation, heart rate was up to 121. She is status post Cardizem 7.5 mg IV push. -EKG: Atrial fibrillation 115 bpm -Chest x-ray: No acute process. -Laboratory studies: WBC peaked at 20.9 currently 6.2, hemoglobin 7.6 down from 11.2. Sodium 133, potassium 4.7, BUN 45 creatinine 0.98. Procalcitonin 4.22. Magnesium 2.0. Urinalysis positive for UTI. Urine culture is gram-negative bacilli. Blood culture Proteus mirabilis, molecular ID. -Home cardiac medications: Eliquis 2.5 mg twice daily, atorvastatin 40 mg daily, Coreg 12.5 mg twice daily, Jardiance 10 mg daily, Lasix 20 mg daily. -Echocardiogram performed 03/05/2024 at [facility] revealed EF of 65 to 70% with mild LVH. -Jazmyne scan Cardiolite stress test performed in the office 07/07/2022 revealed inconclusive EKG part of the stress test due to baseline EKG abnormalities. Abnormal nuclear scan showing ischemia involving the inferior lateral wall. 02/24 Patient seen and examined in the intensive care unit. Patient is currently off oxygen. She has had some nausea per her nurse. Patient denies pain. Echocardiogram is pending. Blood pressure 127/74, heart rate 84, pulse ox 94% on room air. Repeat blood work reveals hemoglobin 7.7, potassium 3.4, BUN 42 creatinine 0.91. 02/25 Patient seen and examined. Patient denies any chest pain or pressure. She wants to eat food however receiving tube feeds. Echocardiogram performed with a EF 60% with RVSP 60 and mild aortic stenosis. 02/26 Patient seen and examined. Patient denies any chest pain or pressure. No significant shortness of breath. Underwent video swallow eval Physical examination: Gen: This is an 84-year-old female in no acute respiratory distress. VS: reviewed HEENT: Head is atraumatic, normocephalic. Pupils equal, round. Sclerae is anicteric. NECK: Supple. No JVD. LUNGS: Clear to auscultation. No wheezes or rhonchi. No intercostal retractions. HEART: Regular rate and rhythm. No murmur. ABDOMEN: Soft No tenderness. EXTREMITIES: No pedal edema. No calf tenderness. NEUROLOGICAL: Patient is awake, alert. Unable to understand patient's garbled speech that is secondary to previous CVA. 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 Continue with current regimen Further recommendations to follow based upon clinical course Objective - Vital Signs Vital signs: Vital Signs Temp 97.6 F 02/26/25 09:00 Pulse 85 02/26/25 14:30 Resp 15 02/26/25 14:30 BP 144/66 02/26/25 14:30 Pulse Ox 97 02/26/25 14:30 FiO2 40 02/22/25 10:15 Intake & Output 02/25/25 02/26/25 02/26/25 18:59 06:59 18:59 Intake Total 1245 170 494 Output Total 985 600 275 Balance 260 -430 219 Weight 75.3 kg 75.4 kg Intake: IV 485 170 0.9 KVO 60 Lactated Ringers 1,000 ml 425 120 @ 20 mls/hr IV .Q24H [facility] Rx#:[id number] cefTRIAXone 2 gm In 50 Sodium Chloride 0.9% 50 ml @ 100 mls/hr IVPB Q24H [facility] Rx#:[id number] Tube Feeding 670 494 Other 90 Output: Urine 985 600 275 Other: Voiding Method Indwelling Catheter Indwelling Catheter Indwelling Catheter # Bowel Movements 3 - Labs CBC & Chem 7: 02/25/25 05:28 02/25/25 05:28 Labs: Abnormal Lab Results - Last 24 Hours (Table) 02/25/25 02/25/25 02/26/25 Range/Units 16:32 19:54 06:20 POC Glucose (mg/dL) 163 H 139 H 138 H (70-110) mg/dL 02/26/25 Range/Units 12:14 POC Glucose (mg/dL) 156 H (70-110) mg/dL Microbiology - Last 24 Hours (Table) 02/23/25 03:26 Blood Culture - Preliminary Blood 02/22/25 15:34 Urine Culture - Final Urine,Voided Methicillin resist S. aureus Proteus mirabilis
[2025-02-26 17:05] LABS: Glucose,Whole Blood 158 mg/dL (70-110)
[2025-02-26 19:50] LABS: Glucose,Whole Blood 181 mg/dL (70-110)
--- NOTE | 2025-02-27 | P.PN ---
Subjective Progress Note Date: 02/26/25 This is a 84-year-old female who presented to the emergency department from [facility] where she resides with abdominal pain with multiple episodes of nausea and vomiting with concerns of possible ileus and came here for further evaluation. Patient follows with Dr. Gaston in the outpatient setting with a um[address] medical history of atrial fibrillation, CVA/TIA, diabetes mellitus, hypertension, osteoarthritis, history of uterine cancer with incontinence of urine and recurrent urinary tract infections. Patient with concerns of sepsis and hypotensive requiring pressor support and also noted to be obtunded shortly after and in a team was called and noted to have agonal respirations and patient was ultimately intubated to protect airway and brought to the ICU. Labs reviewed on admission showing a mildly elevated white count of 10.03 although this morning is worsening at 20.94, hemoglobin 11.2 and repeat 8.8, sodium 133, potassium 4.0, BUN 54 with a creatinine of 0.99, magnesium 2.0, AST mildly elevated at 40, ALT 34, urinalysis performed with large leukocyte esterase and high WBCs with concerns of urinary tract infection and patient started on Rocephin with infectious disease on consult. 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 EKG showed atrial fibrillation with RVR and was initially started on Cardizem which has been discontinued and currently rate controlled. Pulmonary taste tester was consulted for ICU admission along with infectious disease and urology. Patient being admitted with sepsis secondary to UTI with concerns of septic shock requiring pressor support. 02/23/2025 Patient is evaluated in follow-up in the ICU. She is status post cystoscopy with removal of bladder calculi and the bilateral ureteral stent placement. Blood culture is positive for negative bacilli with Proteus species detected urine culture is showing gram-negative bacilli. Patient is calling out and seems confused today regarding her procedure. Patient was updated on current medical procedures and plan we will continue to reorient the patient and reinforce teaching. She continues on IV ceftriaxone. She is weaned off of Levophed and blood pressure is currently 102/43. A chest x-ray this morning which reveals no acute cardiopulmonary disease/process and there is a been interval removal of NG and endotracheal tubes. She is currently extubated and maintaining oxygen saturations on 3 L of oxygen via nasal cannula. 02/24/2025 Patient evaluated in the intensive care unit. She is status post cystoscopy with bilateral ureteral placement and removal of bladder calculi. Urine culture and blood culture are both revealing Proteus Mirabellis. She continues on IV ceftriaxone and ID is following this patient closely as well as urology. Her labs today reveal a white blood cell count of 6.41, hemoglobin 7.7, sodium of 137, potassium 3.4, BUN of 42 creatinine of 0.91. Calcium level is 8.1. Her procalcitonin level was elevated at 4.22. 02/25/2025 Patient is seen in follow-up continues to be in the ICU with multiple consultations following including urology and patient is status post cystoscopy with bilateral stent placement. Urine cultures showing Proteus and is continued on ceftriaxone and will discuss further with infectious disease regarding disch arge planning and antibiotics. Patient resides at [facility] with plans on returning there on discharge. Patient remains n.p.o. at this time and was tentatively scheduled for swallow study although is undergoing modified barium swallow in 24 hours. Patient does have PEG tube and is maintained on tube feedings and tolerating thus far. 12/13/2024 Patient seen in follow-up continues to be in the ICU although is a transfer and downgrade once a bed becomes available. Multiple consultations including urology, infectious disease, pulmonary taste tester, cardiology following. Medications reviewed and resumed as appropriate and adjusted per cardiology recommending outpatient follow-up and continuing on current regimen. Patient had significant stroke in the past requiring PEG tube and is scheduled to undergo MBS with speech today. Infectious disease following and patient was continued on ceftriaxone with culture showing Proteus although now showing MRSA and is being transition to vancomycin recommending repeat urinalysis with culture and awaiting cultures to finalize to determine appropriate discharge antibiotics. Patient with a chronic indwelling Streeter catheter since her stroke at [facility] was exchanged on ER admission. Follow-up on repeat labs in the a.m. and replace electrolytes per protocol REVIEW OF SYSTEMS: CONSTITUTIONAL: No fever, no malaise, reports of fatigue. HEENT: No recent visual problems or hearing problems. Denied any sore throat. CARDIOVASCULAR: No chest pain, orthopnea, PND, no palpitations, no syncope. PULMONARY: No reports of shortness of breath, no cough, no hemoptysis. Reports of dry raspy voice and sore throat that is improving GASTROINTESTINAL: No diarrhea, no further reports of nausea, no further reports of vomiting, no further reports of diffuse abdominal pain. NEUROLOGICAL: No headaches, reports of generalized weakness, no numbness. PHYSICAL EXAMINATION: GENERAL: The patient is lethargic although arousable, alert and oriented x 2, fa tigues easily,, continued on 2 L. Well developed, elderly appearing, ill- appearing HEENT: Pupils are round and equally reacting to light. EOMI. No scleral icterus. No conjunctival pallor. Normocephalic, atraumatic. No pharyngeal erythema. No thyromegaly. CARDIOVASCULAR: S1 and S2 muffled PULMONARY: Diminished breath sounds bilaterally otherwise chest is clear to auscultation, no wheezing or crackles. ABDOMEN: Soft, nontender, nondistended, normoactive bowel sounds. No palpable organomegaly. PEG tube noted in tube feeds tolerating MUSCULOSKELETAL: No joint swelling or deformity. EXTREMITIES: No cyanosis, clubbing, or pedal edema. NEUROLOGICAL: Gross neurological examination did not reveal any focal deficits. Diffusely weak SKIN: No rashes. Assessment: Acute urinary tract infection with pyelonephritis, present on admission, secondary to indwelling Streeter catheter with sepsis and septic shock requiring ICU admission, cultures with complicated Proteus and now growing MRSA Kidney calculus with left-sided emphysematous pyelitis and left-sided pneumoureter, patient is status post cystoscopy with removal of bladder calculi and placement of bilateral ureteral stenting Hypotension requiring pressor support secondary to above, weaned off at this time Increased unresponsiveness requiring mechanical ventilation shortly after admission to protect airway, recently extubated and improved currently maintained on 2 L via nasal cannula Acute hypoxic respiratory failure secondary to sepsis Leukocytosis, secondary to #1 History of CVA/TIA with right-sided deficit and aphasia History of atrial fibrillation with a brief episode of rapid ventricular rate, currently rate controlled History of chronic indwelling Streeter catheter since CVA with history of recurrent UTIs Iron deficiency anemia Diabetes mellitus type 2 history History of hypertension History of osteoarthritis History of uterine cancer GI prophylaxis DVT prophylaxis Full code Plan: Patient was admitted with urinary tract infection with sepsis, present on admission secondary to chronic indwelling Streeter catheter and patient resides at an [facility]. Patient did have an x-ray in the outpatient setting with concerns of possible ileus and sent here for further evaluation as patient was having multiple episodes of nausea and vomiting along with liquid stools and abdominal pain. Patient with chronic indwelling Streeter catheter with issues since CVA last year with multiple recurrent UTIs and some Proteus resistance and previous urine cultures. Urine culture now showing Pseudomonas along with MRSA and is being transitioned to vancomycin per ID recommendations and has ordered repeat urinalysis recommend awaiting finalized cultures and monitoring prior to discharge to determine appropriate antibiotics. Patient did have chronic indwelling Streeter catheter replaced on admission Patient was briefly intubated shortly after ER admission and had been brought to the ICU and is status post successful extubation, currently maintained on 2 L via nasal cannula All medications will be reviewed and resumed as appropriate Patient is NPO with chronic Peg tube in place and continues on enteral feedings. Modified barium swallow scheduled for this afternoon and recommend to continue with aspiration precautions with close monitoring of residuals and will await speech therapy and for Patient is chronically on oral iron through her PEG tube. Consider IV iron due to decreasing hemoglobin. Follow-up on repeat labs and replace electrolytes per protocol Continue monitoring Accu-Cheks AC and at bedtime will continue sliding scale and adjust accordingly. Low-dose long-acting ordered and will continue to adjust as needed Cardiology following as patient did have a brief episode of atrial fibrillation with RVR with history of A-fib, currently rate controlled and will continue telemetry monitoring Patient is anticoagulated with eliquis and will continue Plan will be for return to [facility] on discharge and will consult case m anagement/social work to arrange once patient is stabilized. Possible discharge planning in the next 24-48 hours once repeat urinalysis and urine culture is resulted to determine appropriate discharge antibiotics The impression and plan of care has been dictated by Ivy Araya, Nurse Practitioner as directed. Dr. Nitin MD I have performed a history and examination and MDM of this patient, discussed the same with the dictator, and agree with the dictator's assessment and plan as written ,documented as a scribe. Based on total visit time, I have performed more than 50% of the visit. Objective - Vital Signs Vital signs: Vital Signs Temp 98.7 F 02/25/25 20:00 Pulse 71 02/26/25 01:00 Resp 18 02/26/25 01:00 BP 145/71 02/26/25 08:00 Pulse Ox 94 L 02/26/25 08:00 FiO2 40 02/22/25 10:15 Intake & Output 02/25/25 02/26/25 02/26/25 18:59 06:59 18:59 Intake Total 1245 170 Output Total 985 600 Balance 260 -430 Weight 75.3 kg 75.4 kg Intake: IV 485 170 0.9 KVO 60 Lactated Ringers 1,000 ml 425 120 @ 20 mls/hr IV .Q24H [facility] Rx#:[id number] cefTRIAXone 2 gm In 50 Sodium Chloride 0.9% 50 ml @ 100 mls/hr IVPB Q24H [facility] Rx#:[id number] Tube Feeding 670 Other 90 Output: Urine 985 600 Other: Voiding Method Indwelling Catheter Indwelling Catheter # Bowel Movements 3 - Labs CBC & Chem 7: 02/25/25 05:28 02/25/25 05:28 Labs: Abnormal Lab Results - Last 24 Hours (Table) 02/25/25 02/25/25 02/25/25 Range/Units 12:02 16:32 19:54 POC Glucose (mg/dL) 217 H 163 H 139 H (70-110) mg/dL 02/26/25 Range/Units 06:20 POC Glucose (mg/dL) 138 H (70-110) mg/dL Microbiology - Last 24 Hours (Table) 02/22/25 15:34 Urine Culture - Final Urine,Voided Methicillin resist S. aureus Proteus mirabilis 02/23/25 03:26 Blood Culture - Preliminary Blood
[2025-02-27 06:11] LABS: Basophils # (A) 0.02 10*3/uL (0.00-0.10); Basophils % (A) 0.4 %; Eosinophils # (A) 0.21 10*3/uL (0.04-0.35); Eosinophils % (A) 4.5 %; HCT 26.4 % (37.2-46.3); HGB 7.9 g/dL (12.0-15.0); Lymphocytes # (A) 0.62 10*3/uL (0.90-5.00); Lymphocytes % (A) 13.3 %; MCH 23.7 pg (27.0-32.0); MCHC 29.9 g/dL (32.0-37.0); Mean Platelet Volume 9.1 fL (9.5-12.2); Monocytes # (A) 0.38 10*3/uL (0.20-1.00); Monocytes % (A) 8.1 %; Neutrophils # (A) 3.43 10*3/uL (1.80-7.70); Neutrophils % (A) 73.5 %; Platelet Count 251 10*3/uL (140-440); RBC 3.34 10*6/uL (4.10-5.20); RDW 18.9 % (11.5-14.5); WBC 4.67 10*3/uL (4.50-10.00)
[2025-02-27 06:20] LABS: Glucose,Whole Blood 164 mg/dL (70-110)
[2025-02-27 06:55] LABS: Anion Gap 6 mmol/L; Blood Urea Nitrogen 35 mg/dL (7-17); Carbon Dioxide 27 mmol/L (22-30); Chloride 105 mmol/L (98-107); Glucose 150 mg/dL (74-99); Potassium 3.8 mmol/L (3.5-5.1); Sodium 138 mmol/L (137-145)
[2025-02-27 06:56] LABS: African American GFR (CKD) >90 (>60 ml/min/1.73 sqM); Calcium 8.4 mg/dL (8.4-10.2); Magnesium 1.9 mg/dL (1.6-2.3); Non-African American GFR(CKD) 81 (>60 ml/min/1.73 sqM)
[2025-02-27 12:17] LABS: Glucose,Whole Blood 238 mg/dL (70-110)
[2025-02-27 13:29] VITALS: BMI 32.2
--- NOTE | 2025-02-27 14:25 | P.PN ---
Subjective Progress Note Date: 02/27/25 This is a 84-year-old female who presented to the emergency department from [facility] where she resides with abdominal pain with multiple episodes of nausea and vomiting with concerns of possible ileus and came here for further evaluation. Patient follows with Dr. Gaston in the outpatient setting with a past medical history of atrial fibrillation, CVA/TIA, diabetes mellitus, hypertension, osteoarthritis, history of uterine cancer with incontinence of urine and recurrent urinary tract infections. Patient with concerns of sepsis and hypotensive requiring pressor support and also noted to be obtunded shortly after and in a team was called and noted to have agonal respirations and patient was ultimately intubated to protect airway and brought to the ICU. Labs reviewed on admission showing a mildly elevated white count of 10.03 although this morning is worsening at 20.94, hemoglobin 11.2 and repeat 8.8, sodium 133, potassium 4.0, BUN 54 with a creatinine of 0.99, magnesium 2.0, AST mildly elevated at 40, ALT 34, urinalysis performed with large leukocyte esterase and high WBCs with concerns of urinary tract infection and patient started on Rocephin with infectious disease on consult. 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 EKG showed atrial fibrillation with RVR and was initially started on Cardizem which has been discontinued and currently rate controlled. Pulmonary multimedia educational specialist was consulted for ICU admission along with infectious disease and urology. Patient being admitted with sepsis secondary to UTI with concerns of septic shock requiring pressor support. 02/23/2025 Patient is evaluated in follow-up in the ICU. She is status post cystoscopy w ith removal of bladder calculi and the bilateral ureteral stent placement. Blood culture is positive for negative bacilli with Proteus species detected urine culture is showing gram-negative bacilli. Patient is calling out and seems confused today regarding her procedure. Patient was updated on current medical procedures and plan we will continue to reorient the patient and reinforce teaching. She continues on IV ceftriaxone. She is weaned off of Levophed and blood pressure is currently 102/43. A chest x-ray this morning which reveals no acute cardiopulmonary disease/process and there is a been interval removal of NG and endotracheal tubes. She is currently extubated and maintaining oxygen saturations on 3 L of oxygen via nasal cannula. 02/24/2025 Patient evaluated in the intensive care unit. She is status post cystoscopy with bilateral ureteral placement and removal of bladder calculi. Urine culture and blood culture are both revealing Proteus Mirabellis. She continues on IV ceftriaxone and ID is following this patient closely as well as urology. Her labs today reveal a white blood cell count of 6.41, hemoglobin 7.7, sodium of 137, potassium 3.4, BUN of 42 creatinine of 0.91. Calcium level is 8.1. Her procalcitonin level was elevated at 4.22. 02/25/2025 Patient is seen in follow-up continues to be in the ICU with multiple consultations following including urology and patient is status post cystoscopy with bilateral stent placement. Urine cultures showing Proteus and is continued on ceftriaxone and will discuss further with infectious disease regarding discharge planning and antibiotics. Patient resides at [facility] with plans on returning there on discharge. Patient remains n.p.o. at this time and was tentatively scheduled for swallow study although is undergoing modified barium swallow in 24 hours. Patient does have PEG tube and is maintained on tube feedings and tolerating thus far. 02/26/2025 Patient seen in follow-up continues to be in the ICU although is a transfer and downgrade once a bed becomes available. Multiple consultations including urology, infectious disease, pulmonary multimedia educational specialist, cardiology following. Medications reviewed and resumed as appropriate and adjusted per cardiology recommending outpatient follow-up and continuing on current regimen. Patient had significant stroke in the past requiring PEG tube and is scheduled to undergo MBS with speech today. Infectious disease following and patient was continued on ceftriaxone with culture showing Proteus although now showing MRSA and is being transition to vancomycin recommending repeat urinalysis with culture and awaiting cultures to finalize to determine appropriate discharge antibiotics. Patient with a chronic indwelling Streeter catheter since her stroke at [facility] was exchanged on ER admission. Follow-up on repeat labs in the a.m. and replace electrolytes per protocol 02/27/2025 Patient is eval seen in follow-up in the intensive care unit. She is currently downgraded to the medical surgical floor when bed available. Patient continues on course of IV ceftriaxone and IV vancomycin. Her urinalysis and urine culture have been repeated and ID would like to wait for the repeat urine culture before patient is able to discharge back to the [facility]. She underwent barium swallow and diet was changed to dysphagia to ground with strict aspiration preca utions one-to-one feed no straws. Patient also on nectar thick liquids. Labs today reveal white blood cell count of 4.67, hemoglobin 7.9, BUN of 35 creatinine of 0.70. REVIEW OF SYSTEMS: CONSTITUTIONAL: No fever, no malaise, reports of fatigue. HEENT: No recent visual problems or hearing problems. Denied any sore throat. CARDIOVASCULAR: No chest pain, orthopnea, PND, no palpitations, no syncope. PULMONARY: No reports of shortness of breath, no cough, no hemoptysis. Reports of dry raspy voice and sore throat that is improving GASTROINTESTINAL: No diarrhea, no further reports of nausea, no further reports of vomiting, no further reports of diffuse abdominal pain. NEUROLOGICAL: No headaches, reports of generalized weakness, no numbness. PHYSICAL EXAMINATION: GENERAL: The patient is lethargic although arousable, alert and oriented x 2, fatigues easily,, continued on 2 L. Well developed, elderly appearing, ill- appearing HEENT: Pupils are round and equally reacting to light. EOMI. No scleral icterus. No conjunctival pallor. Normocephalic, atraumatic. No pharyngeal erythema. No thyromegaly. CARDIOVASCULAR: S1 and S2 muffled PULMONARY: Diminished breath sounds bilaterally otherwise chest is clear to auscultation, no wheezing or crackles. ABDOMEN: Soft, nontender, nondistended, normoactive bowel sounds. No palpable organomegaly. PEG tube noted in tube feeds tolerating MUSCULOSKELETAL: No joint swelling or deformity. EXTREMITIES: No cyanosis, clubbing, or pedal edema. NEUROLOGICAL: Gross neurological examination did not reveal any focal deficits. Diffusely weak SKIN: No rashes. Assessment: Acute urinary tract infection with pyelonephritis, present on admission, secondary to indwelling Streeter catheter with sepsis and septic shock requiring ICU admission, cultures with complicated Proteus and now growing MRSA Kidney calculus with left-sided emphysematous pyelitis and left-sided pneumoureter, patient is status post cystoscopy with removal of bladder calculi and placement of bilateral ureteral stenting Hypotension requiring pressor support secondary to above, weaned off at this time Increased unresponsiveness requiring mechanical ventilation shortly after admission to protect airway, recently extubated and improved currently maintained on 2 L via nasal cannula Acute hypoxic respiratory failure secondary to sepsis Leukocytosis, secondary to #1, resolved History of CVA/TIA with right-sided deficit and aphasia History of atrial fibrillation with a brief episode of rapid ventricular rate, currently rate controlled History of chronic indwelling Streeter catheter since CVA with history of recurrent UTIs Iron deficiency anemia Diabetes mellitus type 2 history History of hypertension History of osteoarthritis History of uterine cancer GI prophylaxis DVT prophylaxis Full code Plan: Patient was admitted with urinary tract infection with sepsis, present on admission secondary to chronic indwelling Streeter catheter and patient resides at an [facility]. Patient did have an x-ray in the outpatient setting with concerns of possible ileus and sent here for further evaluation as patient was having multiple episodes of nausea and vomiting along with liquid stools and abdominal pain. Patient with chronic indwelling Streeter catheter with issues since CVA last year with multiple recurrent UTIs and some Proteus resistance and previous urine cultures. Urine culture now showing Pseudomonas along with MRSA and is being transitioned to vancomycin per ID recommendations and has ordered repeat urinalysis recommend awaiting finalized cultures and monitoring prior to discharge to determine appropriate antibiotics. Patient did have chronic indwelling Streeter catheter replaced on admission Patient was briefly intubated shortly after ER admission and had been brought to the ICU and is status post successful extubation, currently maintained on 2 L via nasal cannula All medications will be reviewed and resumed as appropriate Patient is NPO with chronic Peg tube in place and continues on enteral feedings. Modified barium swallow scheduled for this afternoon and recommend to continue with aspiration precautions with close monitoring of residuals and will await speech therapy and for Patient is chronically on oral iron through her PEG tube. Consider IV iron due to decreasing hemoglobin. Follow-up on repeat labs and replace electrolytes per protocol Continue monitoring Accu-Cheks AC and at bedtime will continue sliding scale and adjust accordingly. Low-dose long-acting ordered and will continue to adjust as needed Cardiology following as patient did have a brief episode of atrial fibrillation with RVR with history of A-fib, currently rate controlled and will continue telemetry monitoring Patient is anticoagulated with eliquis and will continue Plan will be for return to [facility] on discharge and will consult case management/social work to arrange once patient is stabilized. Possible discharge planning in the next 24-48 hours once repeat urinalysis and urine culture is resulted to determine appropriate discharge antibiotics The impression and plan of care has been dictated by Nurse Madi Payne as directed. Dr. Nitin MD I have performed a history and examination and MDM of this patient, discussed the same with the dictator, and agree with the dictator's assessment and plan as written ,documented as a scribe. Based on total visit time, I have performed more than 50% of the visit. Objective - Vital Signs Vital signs: Vital Signs Temp 97.6 F 02/27/25 08:00 Pulse 77 02/27/25 08:00 Resp 24 02/27/25 08:00 BP 139/78 02/27/25 08:00 Pulse Ox 95 02/27/25 08:00 FiO2 40 02/22/25 10:15 Intake & Output 02/26/25 02/27/25 02/27/25 18:59 06:59 18:59 Intake Total 1552 576 Output Total 575 625 Balance 977 -49 Weight 74.9 kg Intake: IV 50 cefTRIAXone 2 gm In 50 Sodium Chloride 0.9% 50 ml @ 100 mls/hr IVPB Q24H NERISSA Rx#:[id number] Intake, IV Titration 500 Amount Vancomycin 1,500 mg In 500 Sodium Chloride 0.9% 500 ml 500 ml @ 167 mls/hr IVPB Q24H NERISSA Rx#: [id number] Tube Feeding 912 456 Other 90 120 Output: Urine 575 625 Other: Voiding Method Indwelling Catheter Indwelling Catheter Indwelling Catheter # Bowel Movements 1 - Labs CBC & Chem 7: 02/27/25 05:43 02/27/25 05:43 Labs: Abnormal Lab Results - Last 24 Hours (Table) 02/26/25 02/26/25 02/26/25 Range/Units 12:14 15:48 17:04 RBC (4.10-5.20) 10*6/uL Hgb (12.0-15.0) g/dL Hct (37.2-46.3) % MCV (80.0-97.0) fL MCH (27.0-32.0) pg MCHC (32.0-37.0) g/dL MPV (9.5-12.2) fL Lymphocytes # (0.90-5.00) 10*3/uL BUN (7-17) mg/dL Glucose (74-99) mg/dL POC Glucose (mg/dL) 156 H 158 H (70-110) mg/dL Urine Appearance Turbid H (Clear) Urine Protein 2+ H (Negative) Urine Blood Moderate H (Negative) Ur Leukocyte Esterase Large H (Negative) Urine RBC >182 H (0-5) /hpf Urine WBC >182 H (0-5) /hpf Urine WBC Clumps Moderate H (None) /hpf Urine Mucus Occasional H (None) /hpf 02/26/25 02/27/25 02/27/25 Range/Units 19:49 05:43 05:43 RBC 3.34 L (4.10-5.20) 10*6/uL Hgb 7.9 L (12.0-15.0) g/dL Hct 26.4 L (37.2-46.3) % MCV 79.0 L (80.0-97.0) fL MCH 23.7 L (27.0-32.0) pg MCHC 29.9 L (32.0-37.0) g/dL MPV 9.1 L (9.5-12.2) fL Lymphocytes # 0.62 L (0.90-5.00) 10*3/uL BUN 35 H (7-17) mg/dL Glucose 150 H (74-99) mg/dL POC Glucose (mg/dL) 181 H (70-110) mg/dL Urine Appearance (Clear) Urine Protein (Negative) Urine Blood (Negative) Ur Leukocyte Esterase (Negative) Urine RBC (0-5) /hpf Urine WBC (0-5) /hpf Urine WBC Clumps (None) /hpf Urine Mucus (None) /hpf 02/27/25 Range/Units 06:18 RBC (4.10-5.20) 10*6/uL Hgb (12.0-15.0) g/dL Hct (37.2-46.3) % MCV (80.0-97.0) fL MCH (27.0-32.0) pg MCHC (32.0-37.0) g/dL MPV (9.5-12.2) fL Lymphocytes # (0.90-5.00) 10*3/uL BUN (7-17) mg/dL Glucose (74-99) mg/dL POC Glucose (mg/dL) 164 H (70-110) mg/dL Urine Appearance (Clear) Urine Protein (Negative) Urine Blood (Negative) Ur Leukocyte Esterase (Negative) Urine RBC (0-5) /hpf Urine WBC (0-5) /hpf Urine WBC Clumps (None) /hpf Urine Mucus (None) /hpf Microbiology - Last 24 Hours (Table) 02/23/25 03:26 Blood Culture - Preliminary Blood 02/22/25 15:34 Urine Culture - Final Urine,Voided Methicillin resist S. aureus Proteus mirabilis Assessment and Plan Time with Patient: Less than 30
--- NOTE | 2025-02-27 15:27 | P.PN ---
Subjective Progress Note Date: 02/27/25 Patient is a 84-year-old female being seen in was admitted to this hospital on 02/21/2025 and admitted to this ICU today on 02/22/2025 for sepsis secondary to complicated UTI. [facility] complaint of abdominal pain. He had x-rays today that showed ileus and was transferred here to rule out possible bowel obstruction. She reports of multiple rounds of nonbloody vomiting for the past day and multiple episodes of loose nonbloody stools. No report of tarry stools. 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 Multiple non-obstructing bilateral renal calculi extending to the renal pelvises. No hydronephrosis or discrete emphysematous pyelonephritis. Chest x- ray displaying bilateral interstitial changes. Was informed that she had atrial fibrillation with RVR in the ED. She was placed on cardizem drip which has now been discontinued. She was also found agonally breathing. They ultimately decided to intubate and mechanically ventilate her along with being sedated on fentalyl drip. Initial labs displayed 10.03, hgb 11, platelet 295, Na 133, K 4, Co2 27, BUN 54, Cr .99, glucose 193. Other medical history of hypertension, CVA/TIA, diabetes mellitus, hypertension, history of uterine cancer. Patient has been seen and evaluated in the ICU on 02/22/2025. Patient is current ly sedated on propofol 20 mcg/kg/min and mechanically intubated on asssit volume control at a tidal volume of 400, set at a rate of 18 breaths/min, PEEP of 5, FiO2 of 50%. ABG while on 100% FiO2 was 408/34/7.44. She currently required pressors with levo at 0.08 mcg/kg/min, lactated Ringer's at 130 cc an hour. Patient requires PEG tube for feeds, she can resume. CXR displaying improving bilateral patchy interstitial changes. Labs displaying WBC 20.94, Hgb 8.8, hematocrit 29.1, platelet 295, sodium 132, potassium 3.8, chloride 101, CO2 20, anion gap 11, BUN 52, creatinine 1.02, glucose 200, calcium 8.2. Spoke with respiratory therapy and we will adjust her tidal volume to 350. Plan to repeat her ABG this morning. We will also attempt to wean her of sedation and potentially extubate today if she can tolerate. Will continue to follow her in the ICU. Prognosis is guarded. Patient has been seen and evaluated in the ICU on 02/23/2025. Patient is currently breathing on room air. She currently not requring any pressors, lactated Ringer's at 130 cc an hour. On cardizem drip at 5 mg/hr. She is currently on patient requires PEG tube for feeds, she can resume. Microbiology showing Proteus in the blood culture. She is currently on day 2 of ceftriaxone 2 g every 24 hours yesterday she was seen by urology and underwent cystoscopy with removal of bladder calculi and bilateral stent insertion. Multiple struvite appearing stones were removed. CXR displaying improving bilateral patchy interstitial changes, no acute cardiopulmonary process. Labs displayed WBC 6.21, Hgb 7.6, hematocrit 24.3, MCV 79.7, platelet 240, sodium 133, potassium 3.4, BUN 45, creatinine 0.98, glucose 96. Will continue to follow her in the ICU. Prognosis is guarded. The patient is seen today February 24, 2025 in follow-up in the intensive care unit. She is currently resting in bed. Awake and alert in no acute distress. She is being nourished with vital HP at 60 mL/h. Lactated Ringer's at 75 mL/h. She is continued on ceftriaxone. Urine culture was positive for Proteus mirabilis. Blood culture showing Proteus mirabilis. Sputum culture revealed no growth. White count 6.4. Hemoglobin 7.7. Platelets 245. Sodium 137. Potassium 3.4. Bicarb 24. BUN 42. Creatinine 0.91. Glucose 197. She is continued on DuoNeb inhalations. Anticoagulated with Eliquis. She has been off pressors. 02/25/2025, the patient is being seen for a follow-up. The patient is calm and comfortable and the patient is currently on 2 L of oxygen by nasal cannula. The patient has a sepsis secondary to complicated UTI with Proteus mirabilis and the patient had a left-sided pyelonephritis with emphysematous pyelitis and normal ureter. The patient is post cystoscopy and insertion of bilateral stents and multiple struvite appearing stones were removed. This morning, the patient is calm and comfortable on lactated Ringer at rate of 75 cc an hour. The patient has a Streeter catheter in place. The patient is receiving enteral feeding for nutritional support via PEG tube and the patient is on a vital HP at rate of 60 cc an hour. She has developed some increased edema lower extremities bilaterally. The white cell count is at 5.2 with a hemoglobin 7.7 and a platelet count of 220. Sodium is at 139, potassium is at 3.8, BUN is 41 with a creatinine of 0.7. LFTs are essentially within normal limits. In terms of antibiotic coverage, the patient remains on IV Rocephin 2 g every 24 hours. The patient is also on Lantus insulin 5 units daily and NovoLog/scale coverage. No abdominal pain. No significant mental status change. She is chronically debilitated and she has had a previous CVA with right-sided weakness and some aphasia. She has also hypertension and chronic anemia. On , seen the patient for a follow-up. She is awake and alert and she is currently on room air oxygen. As stated earlier, she has dementia. She continues to receive enteral feeding for nutritional support. The urine culture was positive for Proteus mirabilis and the blood culture was also positive for Proteus mirabilis and the patient remains on IV Rocephin. Hemodynamically stable. Tolerating diet. The white cell count is 5.2 with a hemoglobin 7.7 and a platelet count of 220 from yesterday. No repeat CBC is available from today. However, the patient is doing well. No significant issues over the past 24 hours. As stated, the patient is chronically debilitated. The patient has been involved in a previous CVA that resulted in 2 some difficulties with speech and right-sided weakness. On 02/27/2025, the patient is being seen for a follow-up. The patient is doing well. The patient is calm and comfortable and denies having any specific complaints. She is on room air oxygen. Hemodynamically stable and the patient remains on IV Rocephin. She is receiving enteral feeding for nutritional support. She is also able to swallow and the patient is receiving oral material. Meanwhile, she remains on a combination of Rocephin and vancomycin. Urine culture was positive for Proteus Mirabella's and MRSA in the patient's blood culture was positive for Proteus mirabilis. I suspected the patient had a gram-negative sepsis. No other new complaints otherwise for now. The white second is 4.6 with a hemoglobin 7.9 and platelet count 251. BUN 35 creatinine 0.7 and sodium is 138 and a potassium level is at 3.8. Blood sugars at 168. Objective - Vital Signs Vital signs: Vital Signs Temp 97.6 F 02/27/25 08:00 Pulse 77 02/27/25 08:00 Resp 24 02/27/25 08:00 BP 139/78 02/27/25 08:00 Pulse Ox 95 02/27/25 08:00 FiO2 40 02/22/25 10:15 Intake & Output 02/26/25 02/27/25 02/27/25 18:59 06:59 18:59 Intake Total 1552 576 Output Total 575 625 Balance 977 -49 Weight 74.9 kg Intake: IV 50 cefTRIAXone 2 gm In 50 Sodium Chloride 0.9% 50 ml @ 100 mls/hr IVPB Q24H [facility] Rx#:[id number] Intake, IV Titration 500 Amount Vancomycin 1,500 mg In 500 Sodium Chloride 0.9% 500 ml 500 ml @ 167 mls/hr IVPB Q24H [facility] Rx#: [id number] Tube Feeding 912 456 Other 90 120 Output: Urine 575 625 Other: Voiding Method Indwelling Catheter Indwelling Catheter Indwelling Catheter # Bowel Movements 1 - Exam GENERAL EXAM: Alert, frail 84-year-old female, on room air oxygen, comfortable in no apparent distress. HEAD: Normocephalic. EYES: Normal reaction of pupils, equal size. NOSE: Clear with pink turbinates. THROAT: No erythema or exudates. NECK: No masses, no JVD. CHEST: No chest wall deformity. LUNGS: Equal air entry with bilateral scattered rhonchi. CVS: S1 and S2 normal with no audible murmur, irregular rhythm. ABDOMEN: PEG tube exit site clean and dry. No hepatosplenomegaly, normal bowel sounds, no guarding or rigidity. SPINE: No scoliosis or deformity SKIN: No rashes CENTRAL NERVOUS SYSTEM: No focal deficits, tone is normal in all 4 extremities. EXTREMITIES: There is no peripheral edema. No clubbing, no cyanosis. Peripheral pulses are intact. - Labs CBC & Chem 7: 02/27/25 05:43 02/27/25 05:43 Labs: Abnormal Lab Results - Last 24 Hours (Table) 02/26/25 02/26/25 02/26/25 Range/Units 12:14 15:48 17:04 RBC (4.10-5.20) 10*6/uL Hgb (12.0-15.0) g/dL Hct (37.2-46.3) % MCV (80.0-97.0) fL MCH (27.0-32.0) pg MCHC (32.0-37.0) g/dL MPV (9.5-12.2) fL Lymphocytes # (0.90-5.00) 10*3/uL BUN (7-17) mg/dL Glucose (74-99) mg/dL POC Glucose (mg/dL) 156 H 158 H (70-110) mg/dL Urine Appearance Turbid H (Clear) Urine Protein 2+ H (Negative) Urine Blood Moderate H (Negative) Ur Leukocyte Esterase Large H (Negative) Urine RBC >182 H (0-5) /hpf Urine WBC >182 H (0-5) /hpf Urine WBC Clumps Moderate H (None) /hpf Urine Mucus Occasional H (None) /hpf 02/26/25 02/27/25 02/27/25 Range/Units 19:49 05:43 05:43 RBC 3.34 L (4.10-5.20) 10*6/uL Hgb 7.9 L (12.0-15.0) g/dL Hct 26.4 L (37.2-46.3) % MCV 79.0 L (80.0-97.0) fL MCH 23.7 L (27.0-32.0) pg MCHC 29.9 L (32.0-37.0) g/dL MPV 9.1 L (9.5-12.2) fL Lymphocytes # 0.62 L (0.90-5.00) 10*3/uL BUN 35 H (7-17) mg/dL Glucose 150 H (74-99) mg/dL POC Glucose (mg/dL) 181 H (70-110) mg/dL Urine Appearance (Clear) Urine Protein (Negative) Urine Blood (Negative) Ur Leukocyte Esterase (Negative) Urine RBC (0-5) /hpf Urine WBC (0-5) /hpf Urine WBC Clumps (None) /hpf Urine Mucus (None) /hpf 02/27/25 Range/Units 06:18 RBC (4.10-5.20) 10*6/uL Hgb (12.0-15.0) g/dL Hct (37.2-46.3) % MCV (80.0-97.0) fL MCH (27.0-32.0) pg MCHC (32.0-37.0) g/dL MPV (9.5-12.2) fL Lymphocytes # (0.90-5.00) 10*3/uL BUN (7-17) mg/dL Glucose (74-99) mg/dL POC Glucose (mg/dL) 164 H (70-110) mg/dL Urine Appearance (Clear) Urine Protein (Negative) Urine Blood (Negative) Ur Leukocyte Esterase (Negative) Urine RBC (0-5) /hpf Urine WBC (0-5) /hpf Urine WBC Clumps (None) /hpf Urine Mucus (None) /hpf Microbiology - Last 24 Hours (Table) 02/23/25 03:26 Blood Culture - Preliminary Blood 02/22/25 15:34 Urine Culture - Final Urine,Voided Methicillin resist S. aureus Proteus mirabilis Assessment and Plan Plan: Sepsis secondary to complicated UTI secondary to Proteus mirabilis in the setting of left-sided emphysematous pyelitis and left-sided pneumoureter, the patient is hemodynamically stable at this point. The patient is currently on no pressors. The patient remains on IV Rocephin. Status post cystoscopy with removal of bladder calculi and bilateral stent insertion. Multiple struvite appearing stones were removed. Patient also has MRSA in the urine and the patient was given vancomycin by infectious disease. Sepsis secondary to Proteus mirabilis and the patient remains on Rocephin 2 g every 24 hours, also on vancomycin regarding MRSA in the urine. And vancomycin per ID. Leukocytosis secondary to above, improved Hypotension initially requiring pressors, improved and currently off pressors Atrial fibrillation with RVR, improved, anticoagulated with Eliquis Hyperglycemia in [id number] diabetic History of uterine cancer History of CVA with right-sided deficit and aphasia History of hypertension Anemia of chronic disease Plan: Calm and comfortable, currently on room air oxygen Currently stable off pressors Urine and blood cultures positive for Proteus mirabilis Remains on ceftriaxone 2 g every 24 hours, vancomycin per ID Anticoagulated with Eliquis Continued on bronchodilators Remains on vital HP PEG tube feedings at 60 mL/h, able to take some soft diet. We will continue to follow the patient to be able to transfer out of the intensive care unit today. Time with Patient: Greater than 30
--- NOTE | 2025-02-27 16:08 | P.PN ---
Subjective This is an 84-year-old female patient of Dr. Mosley with past medical history of CAD, hypertension, hyperlipidemia, chronic lower extremity edema, diabetes, persistent atrial fibrillation, CVA. We have been asked to evaluate the patient for A-fib with RVR. Patient presented to the hospital on 02/21 due to urinary tract infection. Patient came [facility] with complaints of abdominal pain. She also had multiple episodes of vomiting and loose stools. CAT scan showed left-sided pneumo ureter, multiple bilateral renal calculi. Patient had A-fib with RVR and initially was started on Cardizem drip. She developed agonal breathing and was intubated and placed on mechanical ventilation. Patient was subsequently extubated yesterday. Patient underwent a cystoscopy with removal of bladder calculi and bilateral stent insertions on 02/22. Blood pressure 110/56, heart rate in the 70s and 80s, pulse ox 93% on room air, respiratory rate 30. Temperature max was 102.6 on 02/21. Otherwise patient has been afebrile. Regarding atrial fibrillation, heart rate was up to 121. She is status post Cardizem 7.5 mg IV push. -EKG: Atrial fibrillation 115 bpm -Chest x-ray: No acute process. -Laboratory studies: WBC peaked at 20.9 currently 6.2, hemoglobin 7.6 down from 11.2. Sodium 133, potassium 4.7, BUN 45 creatinine 0.98. Procalcitonin 4.22. Magnesium 2.0. Urinalysis positive for UTI. Urine culture is gram-negative bacilli. Blood culture Proteus mirabilis, molecular ID. -Home cardiac medications: Eliquis 2.5 mg twice daily, atorvastatin 40 mg daily, Coreg 12.5 mg twice daily, Jardiance 10 mg daily, Lasix 20 mg daily. -Echocardiogram performed 03/05/2024 at [facility] revealed EF of 65 to 70% with mild LVH. -Jazmyne scan Cardiolite stress test performed in the office 07/07/2022 revealed inconclusive EKG part of the stress test due to baseline EKG abnormalities. Abnormal nuclear scan showing ischemia involving the inferior lateral wall. 02/24 Patient seen and examined in the intensive care unit. Patient is currently off oxygen. She has had some nausea per her nurse. Patient denies pain. Echocardiogram is pending. Blood pressure 127/74, heart rate 84, pulse ox 94% on room air. Repeat blood work reveals hemoglobin 7.7, potassium 3.4, BUN 42 creatinine 0.91. 02/25 Patient seen and examined. Patient denies any chest pain or pressure. She wants to eat food however receiving tube feeds. Echocardiogram performed with a EF 60% with RVSP 60 and mild aortic stenosis. 02/26 Patient seen and examined. Patient denies any chest pain or pressure. No significant shortness of breath. Underwent video swallow eval 02/27 patient seen and examined. Patient doing better. Possible discharge home tomorrow. Denies any chest pain or pressure. Is having some increased lower extremity edema. Denies any significant dyspnea currently Physical examination: Gen: This is an 84-year-old female in no acute respiratory distress. VS: reviewed HEENT: Head is atraumatic, normocephalic. Pupils equal, round. Sclerae is a nicteric. NECK: Supple. No JVD. LUNGS: Clear to auscultation. No wheezes or rhonchi. No intercostal retractions. HEART: Regular rate and rhythm. No murmur. ABDOMEN: Soft No tenderness. EXTREMITIES: No pedal edema. No calf tenderness. NEUROLOGICAL: Patient is awake, alert. Unable to understand patient's garbled speech that is secondary to previous CVA. 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 Continue with current regimen she is having some edema and start patient back on her home Lasix. Further recommendations to follow based upon clinical course Objective - Vital Signs Vital signs: Vital Signs Temp 98 F 02/27/25 14:00 Pulse 80 02/27/25 14:00 Resp 24 02/27/25 14:00 BP 141/80 02/27/25 14:00 Pulse Ox 95 02/27/25 14:00 FiO2 40 02/22/25 10:15 Intake & Output 02/26/25 02/27/25 02/27/25 18:59 06:59 18:59 Intake Total 1552 576 Output Total 575 625 Balance 977 -49 Weight 74.9 kg 74.9 kg Intake: IV 50 cefTRIAXone 2 gm In 50 Sodium Chloride 0.9% 50 ml @ 100 mls/hr IVPB Q24H [facility] Rx#:[id number] Intake, IV Titration 500 Amount Vancomycin 1,500 mg In 500 Sodium Chloride 0.9% 500 ml 500 ml @ 167 mls/hr IVPB Q24H [facility] Rx#: [id number] Tube Feeding 912 456 Other 90 120 Output: Urine 575 625 Other: Voiding Method Indwelling Catheter Indwelling Catheter Indwelling Catheter # Bowel Movements 1 - Labs CBC & Chem 7: 02/27/25 05:43 02/27/25 05:43 Labs: Abnormal Lab Results - Last 24 Hours (Table) 02/26/25 02/26/25 02/26/25 Range/Units 15:48 17:04 19:49 RBC (4.10-5.20) 10*6/uL Hgb (12.0-15.0) g/dL Hct (37.2-46.3) % MCV (80.0-97.0) fL MCH (27.0-32.0) pg MCHC (32.0-37.0) g/dL MPV (9.5-12.2) fL Lymphocytes # (0.90-5.00) 10*3/uL BUN (7-17) mg/dL Glucose (74-99) mg/dL POC Glucose (mg/dL) 158 H 181 H (70-110) mg/dL Urine Appearance Turbid H (Clear) Urine Protein 2+ H (Negative) Urine Blood Moderate H (Negative) Ur Leukocyte Esterase Large H (Negative) Urine RBC >182 H (0-5) /hpf Urine WBC >182 H (0-5) /hpf Urine WBC Clumps Moderate H (None) /hpf Urine Mucus Occasional H (None) /hpf 02/27/25 02/27/25 02/27/25 Range/Units 05:43 05:43 06:18 RBC 3.34 L (4.10-5.20) 10*6/uL Hgb 7.9 L (12.0-15.0) g/dL Hct 26.4 L (37.2-46.3) % MCV 79.0 L (80.0-97.0) fL MCH 23.7 L (27.0-32.0) pg MCHC 29.9 L (32.0-37.0) g/dL MPV 9.1 L (9.5-12.2) fL Lymphocytes # 0.62 L (0.90-5.00) 10*3/uL BUN 35 H (7-17) mg/dL Glucose 150 H (74-99) mg/dL POC Glucose (mg/dL) 164 H (70-110) mg/dL Urine Appearance (Clear) Urine Protein (Negative) Urine Blood (Negative) Ur Leukocyte Esterase (Negative) Urine RBC (0-5) /hpf Urine WBC (0-5) /hpf Urine WBC Clumps (None) /hpf Urine Mucus (None) /hpf 02/27/25 Range/Units 12:15 RBC (4.10-5.20) 10*6/uL Hgb (12.0-15.0) g/dL Hct (37.2-46.3) % MCV (80.0-97.0) fL MCH (27.0-32.0) pg MCHC (32.0-37.0) g/dL MPV (9.5-12.2) fL Lymphocytes # (0.90-5.00) 10*3/uL BUN (7-17) mg/dL Glucose (74-99) mg/dL POC Glucose (mg/dL) 238 H (70-110) mg/dL Urine Appearance (Clear) Urine Protein (Negative) Urine Blood (Negative) Ur Leukocyte Esterase (Negative) Urine RBC (0-5) /hpf Urine WBC (0-5) /hpf Urine WBC Clumps (None) /hpf Urine Mucus (None) /hpf Microbiology - Last 24 Hours (Table) 02/23/25 03:26 Blood Culture - Preliminary Blood
[2025-02-27 16:11] LABS: Glucose,Whole Blood 198 mg/dL (70-110)
[2025-02-27] MEDS: FUROSEMIDE 40 MG TAB PO SCH (16:52)
[2025-02-27 19:53] LABS: Glucose,Whole Blood 185 mg/dL (70-110)
[2025-02-28 05:44] LABS: Basophils # (A) 0.05 10*3/uL (0.00-0.10); Basophils % (A) 1.1 %; Eosinophils # (A) 0.16 10*3/uL (0.04-0.35); Eosinophils % (A) 3.4 %; HCT 25.2 % (37.2-46.3); HGB 7.9 g/dL (12.0-15.0); Lymphocytes # (A) 0.75 10*3/uL (0.90-5.00); Lymphocytes % (A) 15.9 %; MCH 24.5 pg (27.0-32.0); MCHC 31.3 g/dL (32.0-37.0); Mean Platelet Volume 9.5 fL (9.5-12.2); Monocytes # (A) 0.43 10*3/uL (0.20-1.00); Monocytes % (A) 9.1 %; Neutrophils % (A) 69.9 %; Platelet Count 273 10*3/uL (140-440); RBC 3.23 10*6/uL (4.10-5.20); RDW 18.6 % (11.5-14.5); WBC 4.72 10*3/uL (4.50-10.00)
[2025-02-28 06:02] LABS: African American GFR (CKD) >90 (>60 ml/min/1.73 sqM); Anion Gap 6 mmol/L; Blood Urea Nitrogen 32 mg/dL (7-17); Calcium 7.7 mg/dL (8.4-10.2); Carbon Dioxide 25 mmol/L (22-30); Chloride 107 mmol/L (98-107); Glucose 91 mg/dL (74-99); Non-African American GFR(CKD) 81 (>60 ml/min/1.73 sqM); Potassium 3.3 mmol/L (3.5-5.1); Sodium 138 mmol/L (137-145)
[2025-02-28 06:36] LABS: Anisocytosis (M) Present
[2025-02-28 06:37] LABS: Polychromasia Present
[2025-02-28 06:52] LABS: Glucose,Whole Blood 101 mg/dL (70-110)
[2025-02-28] MEDS: POTASSIUM BICARBONATE/CIT AC 20 MEQ TABLET.EFF NG-TUBE SCH (09:11)
[2025-02-28 11:24] LABS: Glucose,Whole Blood 157 mg/dL (70-110)
--- NOTE | 2025-02-28 13:24 | P.PN ---
Subjective Progress Note Date: 02/28/25 Patient is a 84-year-old female being seen in was admitted to this hospital on 02/21/2025 and admitted to this ICU today on 02/22/2025 for sepsis secondary to complicated UTI. She initially came to the ED from her halfway due to her complaint of abdominal pain. He had x-rays today that showed ileus and was transferred here to rule out possible bowel obstruction. She reports of multiple rounds of nonbloody vomiting for the past day and multiple episodes of loose nonbloody stools. No report of tarry stools. 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 Multiple non-obstructing bilateral renal calculi extending to the renal pelvises. No hydronephrosis or discrete emphysematous pyelonephritis. Chest x- ray displaying bilateral interstitial changes. Was informed that she had atrial fibrillation with RVR in the ED. She was placed on cardizem drip which has now been discontinued. She was also found agonally breathing. They ultimately decided to intubate and mechanically ventilate her along with being sedated on fentalyl drip. Initial labs displayed 10.03, hgb 11, platelet 295, Na 133, K 4, Co2 27, BUN 54, Cr .99, glucose 193. Other medical history of hypertension, CVA/TIA, diabetes mellitus, hypertension, history of uterine cancer. Patient has been seen and evaluated in the ICU on 02/22/2025. Patient is current ly sedated on propofol 20 mcg/kg/min and mechanically intubated on asssit volume control at a tidal volume of 400, set at a rate of 18 breaths/min, PEEP of 5, FiO2 of 50%. ABG while on 100% FiO2 was 408/34/7.44. She currently required pressors with levo at 0.08 mcg/kg/min, lactated Ringer's at 130 cc an hour. Patient requires PEG tube for feeds, she can resume. CXR displaying improving bilateral patchy interstitial changes. Labs displaying WBC 20.94, Hgb 8.8, hematocrit 29.1, platelet 295, sodium 132, potassium 3.8, chloride 101, CO2 20, anion gap 11, BUN 52, creatinine 1.02, glucose 200, calcium 8.2. Spoke with respiratory therapy and we will adjust her tidal volume to 350. Plan to repeat her ABG this morning. We will also attempt to wean her of sedation and potentially extubate today if she can tolerate. Will continue to follow her in the ICU. Prognosis is guarded. Patient has been seen and evaluated in the ICU on 02/23/2025. Patient is currently breathing on room air. She currently not requring any pressors, lactated Ringer's at 130 cc an hour. On cardizem drip at 5 mg/hr. She is currently on patient requires PEG tube for feeds, she can resume. Microbiology showing Proteus in the blood culture. She is currently on day 2 of ceftriaxone 2 g every 24 hours yesterday she was seen by urology and underwent cystoscopy with removal of bladder calculi and bilateral stent insertion. Multiple struvite appearing stones were removed. CXR displaying improving bilateral patchy interstitial changes, no acute cardiopulmonary process. Labs displayed WBC 6.21, Hgb 7.6, hematocrit 24.3, MCV 79.7, platelet 240, sodium 133, potassium 3.4, BUN 45, creatinine 0.98, glucose 96. Will continue to follow her in the ICU. Prognosis is guarded. The patient is seen today February 24, 2025 in follow-up in the intensive care unit. She is currently resting in bed. Awake and alert in no acute distress. She is being nourished with vital HP at 60 mL/h. Lactated Ringer's at 75 mL/h. She is continued on ceftriaxone. Urine culture was positive for Proteus mirabilis. Blood culture showing Proteus mirabilis. Sputum culture revealed no growth. White count 6.4. Hemoglobin 7.7. Platelets 245. Sodium 137. Potassium 3.4. Bicarb 24. BUN 42. Creatinine 0.91. Glucose 197. She is continued on DuoNeb inhalations. Anticoagulated with Eliquis. She has been off pressors. 02/25/2025, the patient is being seen for a follow-up. The patient is calm and comfortable and the patient is currently on 2 L of oxygen by nasal cannula. The patient has a sepsis secondary to complicated UTI with Proteus mirabilis and the patient had a left-sided pyelonephritis with emphysematous pyelitis and normal ureter. The patient is post cystoscopy and insertion of bilateral stents and multiple struvite appearing stones were removed. This morning, the patient is calm and comfortable on lactated Ringer at rate of 75 cc an hour. The patient has a Streeter catheter in place. The patient is receiving enteral feeding for nutritional support via PEG tube and the patient is on a vital HP at rate of 60 cc an hour. She has developed some increased edema lower extremities bilaterally. The white cell count is at 5.2 with a hemoglobin 7.7 and a platelet count of 220. Sodium is at 139, potassium is at 3.8, BUN is 41 with a creatinine of 0.7. LFTs are essentially within normal limits. In terms of antibiotic coverage, the patient remains on IV Rocephin 2 g every 24 hours. The patient is also on Lantus insulin 5 units daily and NovoLog/scale coverage. No abdominal pain. No significant mental status change. She is chronically debilitated and she has had a previous CVA with right-sided weakness and some aphasia. She has also hypertension and chronic anemia. On , seen the patient for a follow-up. She is awake and alert and she is currently on room air oxygen. As stated earlier, she has dementia. She continues to receive enteral feeding for nutritional support. The urine culture was positive for Proteus mirabilis and the blood culture was also positive for Proteus mirabilis and the patient remains on IV Rocephin. Hemodynamically stable. Tolerating diet. The white cell count is 5.2 with a hemoglobin 7.7 and a platelet count of 220 from yesterday. No repeat CBC is available from today. However, the patient is doing well. No significant issues over the past 24 hours. As stated, the patient is chronically debilitated. The patient has been involved in a previous CVA that resulted in 2 some difficulties with speech and right-sided weakness. On 02/27/2025, the patient is being seen for a follow-up. The patient is doing well. The patient is calm and comfortable and denies having any specific complaints. She is on room air oxygen. Hemodynamically stable and the patient remains on IV Rocephin. She is receiving enteral feeding for nutritional support. She is also able to swallow and the patient is receiving oral material. Meanwhile, she remains on a combination of Rocephin and vancomycin. Urine culture was positive for Proteus Mirabella's and MRSA in the patient's blood culture was positive for Proteus mirabilis. I suspected the patient had a gram-negative sepsis. No other new complaints otherwise for now. The white second is 4.6 with a hemoglobin 7.9 and platelet count 251. BUN 35 creatinine 0.7 and sodium is 138 and a potassium level is at 3.8. Blood sugars at 168. On 02/28/2025, the patient is being seen for a follow-up. Clinically unchanged. Doing well. Tube feeds are currently on hold and the patient is taking food orally. No reported aspiration. Hemodynamically stable. Afebrile. No significant events overnight. Approximately 4.7, hemoglobin 7.9 and a platelet count of 273. Sodium is at 138, potassium is 3.3, BUN 32 with a creatinine of 0.69. The patient remains on IV Rocephin and vancomycin. Repeat urine culture is negative. Remains on Lantus insulin 5 units daily and normal and NovoLog sliding scale coverage. IV fluids are currently at KVO. Remains on Coreg 25 mg p.o. twice a day and remains on anticoagulation with Eliquis 2.5 mg twice a day. Objective - Vital Signs Vital signs: Vital Signs Temp 97.7 F 02/28/25 02:00 Pulse 96 02/28/25 02:00 Resp 18 02/28/25 02:00 BP 110/57 02/28/25 02:00 Pulse Ox 96 02/28/25 08:17 FiO2 40 02/22/25 10:15 Intake & Output 02/27/25 02/28/25 02/28/25 18:59 06:59 18:59 Intake Total 292 50 Output Total 1250 2750 Balance -958 -2700 Weight 74.9 kg 73.7 kg Intake: IV 50 50 cefTRIAXone 2 gm In 50 50 Sodium Chloride 0.9% 50 ml @ 100 mls/hr IVPB Q24H [facility] Rx#:[id number] Tube Feeding 152 Other 90 Output: Urine 1250 2750 Other: Voiding Method Indwelling Catheter Indwelling Catheter - Exam GENERAL EXAM: Alert, frail 84-year-old female, on room air oxygen, comfortable in no apparent distress. HEAD: Normocephalic. EYES: Normal reaction of pupils, equal size. NOSE: Clear with pink turbinates. THROAT: No erythema or exudates. NECK: No masses, no JVD. CHEST: No chest wall deformity. LUNGS: Equal air entry with bilateral scattered rhonchi. CVS: S1 and S2 normal with no audible murmur, irregular rhythm. ABDOMEN: PEG tube exit site clean and dry. No hepatosplenomegaly, normal bowel sounds, no guarding or rigidity. SPINE: No scoliosis or deformity SKIN: No rashes CENTRAL NERVOUS SYSTEM: No focal deficits, tone is normal in all 4 extremities. EXTREMITIES: There is no peripheral edema. No clubbing, no cyanosis. Periphe ral pulses are intact. - Labs CBC & Chem 7: 02/28/25 05:16 02/28/25 05:16 Labs: Abnormal Lab Results - Last 24 Hours (Table) 02/27/25 02/27/25 02/27/25 Range/Units 12:15 16:09 19:52 RBC (4.10-5.20) 10*6/uL Hgb (12.0-15.0) g/dL Hct (37.2-46.3) % MCV (80.0-97.0) fL MCH (27.0-32.0) pg MCHC (32.0-37.0) g/dL Lymphocytes # (0.90-5.00) 10*3/uL Potassium (3.5-5.1) mmol/L BUN (7-17) mg/dL POC Glucose (mg/dL) 238 H 198 H 185 H (70-110) mg/dL Calcium (8.4-10.2) mg/dL 02/28/25 02/28/25 Range/Units 05:16 05:16 RBC 3.23 L (4.10-5.20) 10*6/uL Hgb 7.9 L (12.0-15.0) g/dL Hct 25.2 L (37.2-46.3) % MCV 78.0 L (80.0-97.0) fL MCH 24.5 L (27.0-32.0) pg MCHC 31.3 L (32.0-37.0) g/dL Lymphocytes # 0.75 L (0.90-5.00) 10*3/uL Potassium 3.3 L (3.5-5.1) mmol/L BUN 32 H (7-17) mg/dL POC Glucose (mg/dL) (70-110) mg/dL Calcium 7.7 L (8.4-10.2) mg/dL Microbiology - Last 24 Hours (Table) 02/26/25 15:48 Urine Culture - Final Urine,Voided Assessment and Plan Plan: Sepsis secondary to complicated UTI secondary to Proteus mirabilis in the setting of left-sided emphysematous pyelitis and left-sided pneumoureter, the patient is hemodynamically stable at this point. The patient is currently on no pressors. The patient remains on IV Rocephin. Status post cystoscopy with removal of bladder calculi and bilateral stent insertion. Multiple struvite appearing stones were removed. Patient also has MRSA in the urine and the patient was given vancomycin by infectious disease. Repeat urine cultures are negative and awaiting further recommendations from ID regarding switching this patient to oral antibiotics. Sepsis secondary to Proteus mirabilis and the patient remains on Rocephin 2 g every 24 hours, also on vancomycin regarding MRSA in the urine. And vancomycin per ID. Leukocytosis secondary to above, improved Hypotension initially requiring pressors, improved and currently off pressors Atrial fibrillation with RVR, improved, anticoagulated with Eliquis Hyperglycemia in dyd-xxcybck-syfwmwoaa diabetic History of uterine cancer History of CVA with right-sided deficit and aphasia History of hypertension Anemia of chronic disease Plan: Calm and comfortable, currently on room air oxygen Currently stable off pressors Urine and blood cultures positive for Proteus mirabilis Remains on ceftriaxone 2 g every 24 hours, vancomycin per ID, awaiting further recommendations from ID regarding oral antibiotic coverage. Anticoagulated with Eliquis Continued on bronchodilators Enteral feeding is currently on hold and the patient is taking food orally We will continue to follow the patient to be able to transfer out of the intensive care unit today. Discharge planning is also in progress. Time with Patient: Greater than 30
--- NOTE | 2025-02-28 14:08 | P.DS ---
Providers Date of admission: 02/21/25 21:08 Expected date of discharge: 02/28/25 Attending physician: Jaison Nicolas MD Consults: 02/21/25 20:12 Consult Physician Routine Consulting Provider: Tom Ramos Consult Reason/Comments: urinary tract infection Do you want consulting provider notified?: Yes 02/22/25 00:23 Consult Physician Stat Consulting Provider: Nabil Beck Consult Reason/Comments: ICU Management Do you want consulting provider notified?: Yes 02/22/25 11:00 Consult Physician Routine Consulting Provider: Dewey Williamson Consult Reason/Comments: pneumoureter Do you want consulting provider notified?: Yes 02/22/25 11:44 Consult Physician Routine Consulting Provider: Thao Banuelos Consult Reason/Comments: afib w/rvr Do you want consulting provider notified?: Yes Primary care physician: Francesco Gaston Hospital Course: Final diagnosis Acute urinary tract infection with pyelonephritis, present on admission, secondary to indwelling Streeter catheter with sepsis and septic shock requiring ICU admission, cultures with complicated Proteus and now growing MRSA, repeat urinalysis showing normal carri Kidney calculus with left-sided emphysematous pyelitis and left-sided pneumoureter, patient is status post cystoscopy with removal of bladder calculi and placement of bilateral ureteral stenting Hypotension requiring pressor support secondary to above, weaned off at this time Increased unresponsiveness requiring mechanical ventilation shortly after admission to protect airway, recently extubated and improved currently maintained on 2 L via nasal cannula Acute hypoxic respiratory failure secondary to sepsis Leukocytosis, secondary to #1, resolved History of CVA/TIA with right-sided deficit and aphasia History of atrial fibrillation with a brief episode of rapid ventricular rate, currently rate controlled History of chronic indwelling Streeter catheter since CVA with history of recurrent UTIs Iron deficiency anemia Diabetes mellitus type 2 history History of hypertension History of osteoarthritis History of uterine cancer GI prophylaxis DVT prophylaxis Full code Discharge disposition Patient is being discharged in a stable condition with guarded prognosis to [facility] where she resides. Patient will follow-up with Dr. Gaston in the outpatient setting upon discharge. Patient will also need outpatient follow-up with urology and will continue with indwelling Streeter catheter. patient is to continue with Bactrim DS twice daily for the next 1 week and also recommend outpatient follow-up with cardiology as scheduled. Total time taken is greater than 35 minutes. Hospital course This is a 84-year-old female who was recently admitted from [facility] as patient was noted to be having significant abdominal pain with nausea and vomiting and was concerned of possible ileus versus small bowel obstruction with sepsis, present on admission. Patient likely urinary source and has chronic indwelling Streeter catheter and was exchanged in the ER on admission. Patient with sepsis with septic shock secondary to urinary tract infection with complicated left-sided emphysematous pyelitis and left-sided pneumonia ureter and is status post cystoscopy with urology and removal of bladder calculi and bilateral ureteral stenting. Patient was in the ICU for quite some time as patient was briefly intubated due to increased unresponsiveness shortly after arrival. Patient being followed by infectious disease maintained on IV antibiotics in the form of vancomycin and ceftriaxone and urine cultures finalized with Proteus and MRSA and repeat urine cultures were performed showing normal carri. Patient will transition to oral Bactrim DS twice daily for the next 1 week per ID recommendations. Patient will need follow-up with urology and continued indwelling Streeter catheter care. Patient is high risk for recurrent UTIs. Currently no reports of chest pain, shortness of breath, or palpitations. Patient is afebrile. No reports of nausea or vomiting and patient is tolerating diet. Patient was evaluated by speech and has advanced to dysphagia 2 to ground diet with nectar thickened liquids and no straws with supervision with meals and aspiration precautions with head of the bed elevated 35 to 45 degrees at all times. Patient does have a PEG tube and can continue to use PEG tube for medications or if patient is not tolerating much oral intake. Strongly recommend aspiration precautions at all times. Patient will be going to [facility] today. High risk for readmissions given significant comorbidities Physical exam: Gen: This is a 84-year-old female who is awake, alert and oriented x 2, baseline, well-developed, elderly appearing, obese HEENT: Head is atraumatic, normocephalic. Pupils equal, round. Sclerae is anicteric. NECK: Supple. No JVD. No lymphadenopathy. No thyromegaly. LUNGS: Diminished breath sounds bilaterally otherwise clear to auscultation. No wheezes or rhonchi. No intercostal retractions. HEART: S1, S2 are muffled ABDOMEN: Soft. Obese, PEG tube noted, bowel sounds are present. No masses. No tenderness. EXTREMITIES: No pedal edema. No calf tenderness. NEUROLOGICAL: Patient is awake, alert and oriented x 2-3. Cranial nerves 2 through 12 are grossly intact. Diffusely weak with residual deficits from previous CVA Please refer to medication reconciliation sheet for a list of medications. The impression and plan of care has been dictated by Ivy Araya, Nurse Practitioner as directed. Dr. Nitin MD I have performed a history and examination and MDM of this patient, discussed the same with the dictator, and agree with the dictator's assessment and plan as written ,documented as a scribe. Based on total visit time, I have performed more than 50% of the visit. Patient Condition at Discharge: Fair Plan - Discharge Summary Discharge Rx Participant: No New Discharge Prescriptions: No Action carvediloL [Coreg] 12.5 mg PEG/G-TUBE BID Na Phos,M-B/Na Phos,Di-Ba [Fleet Adult] 133 ml RECTAL DAILY PRN PRN Reason: Constipation Saliva Stimulant Comb. No.3 [Biotene Moisturizing Mouth] 1 tsp MUCOUS MEM Q12H PRN PRN Reason: dry mouth/throat INSULIN LISPRO (humaLOG) [humaLOG] See Protocol SQ ACHS Metoclopramide [Reglan] 5 mg PEG/G-TUBE DAILY Ipratropium-Albuterol Nebulize [Duoneb 0.5 mg-3 mg/3 ml Soln] 3 ml INHALATION RT-TID PRN PRN Reason: Cough guaiFENesin [guaiFENesin ER] 600 mg PEG/G-TUBE Q12H PRN PRN Reason: Cough Ferrous Sulfate Oral Elixir [Feosol Liquid] 450 mg PEG/G-TUBE DAILY Apixaban [Eliquis] 2.5 mg PEG/G-TUBE BID Loperamide [Imodium] 4 mg PEG/G-TUBE QID PRN PRN Reason: Diarrhea Empagliflozin [Jardiance] 10 mg PEG/G-TUBE DAILY Atorvastatin [Lipitor] 40 mg PEG/G-TUBE DAILY bisacodyL [Dulcolax] 10 mg RECTAL DAILY PRN PRN Reason: Constipation Famotidine [Pepcid] 20 mg PEG/G-TUBE DAILY Magnesium Hydroxide [Milk of Magnesia Concentrate] 7,200 mg PEG/G-TUBE DAILY PRN PRN Reason: Constipation Furosemide [Lasix] 20 mg PEG/G-TUBE DAILY Acetaminophen Tab [Tylenol] 500 mg PEG/G-TUBE Q6HR PRN PRN Reason: Fever And/ Or Pain Simethicone 40 mg/0.6 ml Drops [Mylicon Drops] 40 mg PEG/G-TUBE QID Lactulose [Cephulac] 30 gm PO DAILY Insulin Glargine,Hum.rec.anlog [Lantus Solostar Pen] 5 units SQ DAILY Lactulose [Constulose] 30 gm PEG/G-TUBE Q12H PRN PRN Reason: Constipation Discharge Medication List Atorvastatin [Lipitor] 40 mg PEG/G-TUBE DAILY 06/19/24 [History] Famotidine [Pepcid] 20 mg PEG/G-TUBE DAILY 06/19/24 [History] Magnesium Hydroxide [Milk of Magnesia Concentrate] 7,200 mg PEG/G-TUBE DAILY PRN 06/19/24 [History] Na Phos,M-B/Na Phos,Di-Ba [Fleet Adult] 133 ml RECTAL DAILY PRN 06/19/24 [History] Saliva Stimulant Comb. No.3 [Biotene Moisturizing Mouth] 1 tsp MUCOUS MEM Q12H PRN 06/19/24 [History] bisacodyL [Dulcolax] 10 mg RECTAL DAILY PRN 06/19/24 [History] Acetaminophen Tab [Tylenol] 500 mg PEG/G-TUBE Q6HR PRN 07/27/24 [History] INSULIN LISPRO (humaLOG) [humaLOG] See Protocol SQ ACHS 07/27/24 [History] Apixaban [Eliquis] 2.5 mg PEG/G-TUBE BID 10/11/24 [History] Ferrous Sulfate Oral Elixir [Feosol Liquid] 450 mg PEG/G-TUBE DAILY 10/11/24 [History] Ipratropium-Albuterol Nebulize [Duoneb 0.5 mg-3 mg/3 ml Soln] 3 ml INHALATION RT-TID PRN 10/11/24 [History] Lactulose [Cephulac] 30 gm PO DAILY 10/11/24 [History] Metoclopramide [Reglan] 5 mg PEG/G-TUBE DAILY 10/11/24 [History] Simethicone 40 mg/0.6 ml Drops [Mylicon Drops] 40 mg PEG/G-TUBE QID 10/11/24 [History] guaiFENesin [guaiFENesin ER] 600 mg PEG/G-TUBE Q12H PRN 10/11/24 [History] Insulin Glargine,Hum.rec.anlog [Lantus Solostar Pen] 5 units SQ DAILY 02/22/25 [History] Lactulose [Constulose] 30 gm PEG/G-TUBE Q12H PRN 02/22/25 [History] Loperamide [Imodium] 4 mg PEG/G-TUBE QID PRN 02/22/25 [History] Furosemide [Lasix] 40 mg PEG/G-TUBE DAILY #0 02/28/25 [Rx] Potassium Chloride ER [K-Dur 10] 10 meq PO DAILY tab 02/28/25 [Rx] carvediloL [Coreg*] 25 mg PO BID-W/MEALS tab 02/28/25 [Rx] Follow up Appointment(s)/Referral(s): Francesco Gaston MD [Primary Care Provider] - 03/07/25 11:00 am (please bring in discharge papers and medications due to pt not being seen in some time.) Activity/Diet/Wound Care/Special Instructions: speech to follow pt at [facility] for diet tolerance.
--- NOTE | 2025-02-28 14:56 | P.PN ---
Subjective Progress Note Date: 02/27/25 Principal diagnosis: Reason for follow-up is UTI and bacteremia Patient is a 84-year-old female with a past medical he significant for diabetes mellitus hypertension osteoarthritis CVA TIA and atrial fibrillation, history of recurrent UTI patient was brought into the hospital for evaluation of abdominal pain, patient presents with sepsis secondary to UTI/pyelonephritis and blood cultures came back positive with Proteus Mirabelis. Patient is status post Cystoscopy, removal of bladder calculi, bilateral ureteral stent insertion completed on 02/22/2025. On today's evaluation that is 02/27/2025,the patient denies any fever or any chills, patient is breathing comfortably on room air, the patient denies chest pain shortness of breath and no significant cough, patient denies abdominal pain, no nausea vomiting or diarrhea. Patient white count is 4.67 creatinine 0.7 0 repeat UA is positive cultures pending Objective - Vital Signs Vital signs: Vital Signs Temp 98 F 02/27/25 14:00 Pulse 80 02/27/25 14:00 Resp 24 02/27/25 14:00 BP 141/80 02/27/25 14:00 Pulse Ox 95 02/27/25 14:00 FiO2 40 02/22/25 10:15 Intake & Output 02/26/25 02/27/25 02/27/25 18:59 06:59 18:59 Intake Total 1552 576 Output Total 575 625 Balance 977 -49 Weight 74.9 kg 74.9 kg Intake: IV 50 cefTRIAXone 2 gm In 50 Sodium Chloride 0.9% 50 ml @ 100 mls/hr IVPB Q24H [facility] Rx#:[id number] Intake, IV Titration 500 Amount Vancomycin 1,500 mg In 500 Sodium Chloride 0.9% 500 ml 500 ml @ 167 mls/hr IVPB Q24H [facility] Rx#: [id number] Tube Feeding 912 456 Other 90 120 Output: Urine 575 625 Other: Voiding Method Indwelling Catheter Indwelling Catheter Indwelling Catheter # Bowel Movements 1 - Exam GENERAL DESCRIPTION: An elderly female lying in bed in no distress RESPIRATORY SYSTEM: Unlabored breathing , decreased breath sounds at bases HEART: S1 S2 regular rate and rhythm , ABDOMEN: Soft , no tenderness EXTREMITIES: No edema feet - Labs CBC & Chem 7: 02/28/25 05:16 02/28/25 14:05 Labs: Abnormal Lab Results - Last 24 Hours (Table) 02/26/25 02/26/25 02/26/25 Range/Units 15:48 17:04 19:49 RBC (4.10-5.20) 10*6/uL Hgb (12.0-15.0) g/dL Hct (37.2-46.3) % MCV (80.0-97.0) fL MCH (27.0-32.0) pg MCHC (32.0-37.0) g/dL MPV (9.5-12.2) fL Lymphocytes # (0.90-5.00) 10*3/uL BUN (7-17) mg/dL Glucose (74-99) mg/dL POC Glucose (mg/dL) 158 H 181 H (70-110) mg/dL Urine Appearance Turbid H (Clear) Urine Protein 2+ H (Negative) Urine Blood Moderate H (Negative) Ur Leukocyte Esterase Large H (Negative) Urine RBC >182 H (0-5) /hpf Urine WBC >182 H (0-5) /hpf Urine WBC Clumps Moderate H (None) /hpf Urine Mucus Occasional H (None) /hpf 02/27/25 02/27/25 02/27/25 Range/Units 05:43 05:43 06:18 RBC 3.34 L (4.10-5.20) 10*6/uL Hgb 7.9 L (12.0-15.0) g/dL Hct 26.4 L (37.2-46.3) % MCV 79.0 L (80.0-97.0) fL MCH 23.7 L (27.0-32.0) pg MCHC 29.9 L (32.0-37.0) g/dL MPV 9.1 L (9.5-12.2) fL Lymphocytes # 0.62 L (0.90-5.00) 10*3/uL BUN 35 H (7-17) mg/dL Glucose 150 H (74-99) mg/dL POC Glucose (mg/dL) 164 H (70-110) mg/dL Urine Appearance (Clear) Urine Protein (Negative) Urine Blood (Negative) Ur Leukocyte Esterase (Negative) Urine RBC (0-5) /hpf Urine WBC (0-5) /hpf Urine WBC Clumps (None) /hpf Urine Mucus (None) /hpf 02/27/25 Range/Units 12:15 RBC (4.10-5.20) 10*6/uL Hgb (12.0-15.0) g/dL Hct (37.2-46.3) % MCV (80.0-97.0) fL MCH (27.0-32.0) pg MCHC (32.0-37.0) g/dL MPV (9.5-12.2) fL Lymphocytes # (0.90-5.00) 10*3/uL BUN (7-17) mg/dL Glucose (74-99) mg/dL POC Glucose (mg/dL) 238 H (70-110) mg/dL Urine Appearance (Clear) Urine Protein (Negative) Urine Blood (Negative) Ur Leukocyte Esterase (Negative) Urine RBC (0-5) /hpf Urine WBC (0-5) /hpf Urine WBC Clumps (None) /hpf Urine Mucus (None) /hpf Microbiology - Last 24 Hours (Table) 02/23/25 03:26 Blood Culture - Preliminary Blood Assessment and Plan (1) Acute pyelonephritis Current Visit: Yes Status: Acute Code(s): N10 - ACUTE PYELONEPHRITIS [facility] Code(s): 20328117 (2) Sepsis Current Visit: No Status: Acute Code(s): A41.9 - SEPSIS, UNSPECIFIED ORGANISM SNOMED Code(s): 33082668 (3) Bacteremia Current Visit: Yes Status: Acute Code(s): R78.81 - BACTEREMIA SNOMED Code(s): 9452166 Plan: 1patient presented to the hospital with sepsis/septic shock in this patient who did have fever tachycardia elevated white count hypotension meeting criteria for SIRS/sepsis source is likely urinary with 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 as seen on the CT and will need to cover for the resistant gram-negative to be the likely pathogen with the last urine culture positive for Pseudomonas aeruginosa 2-patient has been evaluated by urology and is status post cystoscopy removal of bladder stone and bilateral ureteral stenting completed on 02/22/2025 3-cultures came back positive with a Proteus source likely urinary, repeat urine culture also growing MRSA this sample obtained after the patient did have urinary intervention 4-repeat UA is positive continue with the vancomycin and Rocephin while waiting for repeat culture to finalize Dictation was produced using [employer] dictation software. please excuse any grammatical, word or spelling errors. Time with Patient: Less than 30
--- NOTE | 2025-02-28 14:57 | P.PN ---
Subjective Progress Note Date: 02/28/25 Principal diagnosis: Reason for follow-up is UTI and bacteremia Patient is a 84-year-old female with a past medical he significant for diabetes mellitus hypertension osteoarthritis CVA TIA and atrial fibrillation, history of recurrent UTI patient was brought into the hospital for evaluation of abdominal pain, patient presents with sepsis secondary to UTI/pyelonephritis and blood cultures came back positive with Proteus Mirabelis. Patient is status post Cystoscopy, removal of bladder calculi, bilateral ureteral stent insertion completed on 02/22/2025. On today's evaluation that is 02/28/2025,the patient remains to be afebrile, patient is on room air not requiring supplemental oxygen and denies any shortness of breath no chest pain or cough.Patient denies having any nausea or vomiting, no abdominal pain and no diarrhea has been reported. The patient was on 4.72 creatinine 0.69 Objective - Vital Signs Vital signs: Vital Signs Temp 97.7 F 02/28/25 02:00 Pulse 84 02/28/25 08:00 Resp 16 02/28/25 08:00 BP 136/58 02/28/25 08:00 Pulse Ox 96 02/28/25 08:17 FiO2 40 02/22/25 10:15 Intake & Output 02/27/25 02/28/25 02/28/25 18:59 06:59 18:59 Intake Total 292 50 Output Total 1250 2750 Balance -958 -2700 Weight 74.9 kg 73.7 kg Intake: IV 50 50 cefTRIAXone 2 gm In 50 50 Sodium Chloride 0.9% 50 ml @ 100 mls/hr IVPB Q24H [facility] Rx#:[id number] Tube Feeding 152 Other 90 Output: Urine 1250 2750 Other: Voiding Method Indwelling Catheter Indwelling Catheter Indwelling Catheter - Exam GENERAL DESCRIPTION: An elderly female lying in bed in no distress RESPIRATORY SYSTEM: Unlabored breathing , decreased breath sounds at bases HEART: S1 S2 regular rate and rhythm , ABDOMEN: Soft , no tenderness EXTREMITIES: No edema feet - Labs CBC & Chem 7: 02/28/25 05:16 02/28/25 14:05 Labs: Abnormal Lab Results - Last 24 Hours (Table) 02/27/25 02/27/25 02/27/25 Range/Units 12:15 16:09 19:52 RBC (4.10-5.20) 10*6/uL Hgb (12.0-15.0) g/dL Hct (37.2-46.3) % MCV (80.0-97.0) fL MCH (27.0-32.0) pg MCHC (32.0-37.0) g/dL Lymphocytes # (0.90-5.00) 10*3/uL Potassium (3.5-5.1) mmol/L BUN (7-17) mg/dL POC Glucose (mg/dL) 238 H 198 H 185 H (70-110) mg/dL Calcium (8.4-10.2) mg/dL 02/28/25 02/28/25 02/28/25 Range/Units 05:16 05:16 11:22 RBC 3.23 L (4.10-5.20) 10*6/uL Hgb 7.9 L (12.0-15.0) g/dL Hct 25.2 L (37.2-46.3) % MCV 78.0 L (80.0-97.0) fL MCH 24.5 L (27.0-32.0) pg MCHC 31.3 L (32.0-37.0) g/dL Lymphocytes # 0.75 L (0.90-5.00) 10*3/uL Potassium 3.3 L (3.5-5.1) mmol/L BUN 32 H (7-17) mg/dL POC Glucose (mg/dL) 157 H (70-110) mg/dL Calcium 7.7 L (8.4-10.2) mg/dL Microbiology - Last 24 Hours (Table) 02/26/25 15:48 Urine Culture - Final Urine,Voided Assessment and Plan (1) Acute pyelonephritis Current Visit: Yes Status: Acute Code(s): N10 - ACUTE PYELONEPHRITIS SNOMED Code(s): 01103209 (2) Sepsis Current Visit: No Status: Acute Code(s): A41.9 - SEPSIS, UNSPECIFIED ORGANISM SNOMED Code(s): 28127032 (3) Bacteremia Current Visit: Yes Status: Acute Code(s): R78.81 - BACTEREMIA SNOMED Code(s): 0980941 Plan: 1patient presented to the hospital with sepsis/septic shock in this patient who did have fever tachycardia elevated white count hypotension meeting criteria for SIRS/sepsis source is likely urinary with 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 as seen on the CT and will need to cover for the resistant gram-negative to be the likely pathogen with the last urine culture positive for Pseudomonas aeruginosa 2-patient has been evaluated by urology and is status post cystoscopy removal of bladder stone and bilateral ureteral stenting completed on 02/22/2025 3-cultures came back positive with a Proteus source likely urinary, repeat urine culture also growing MRSA this sample obtained after the patient did have urinary intervention 4-repeat UA is positive though culture reported negative by the micro lab, plan is to finish therapy with Bactrim DS 1 twice daily for 7 days discussed with [facility] for admitting team Dictation was produced using [employer] dictation software. please excuse any grammatical, word or spelling errors. Time with Patient: Less than 30
[2025-02-28 15:33] VITALS: BP 126/68; PULSE 86; RESP 12; TEMP 98.1
--- NOTE | 2025-02-28 16:01 | P.PN ---
Subjective This is an 84-year-old female patient of Dr. Mosley with past medical history of CAD, hypertension, hyperlipidemia, chronic lower extremity edema, diabetes, persistent atrial fibrillation, CVA. We have been asked to evaluate the patient for A-fib with RVR. Patient presented to the hospital on 02/21 due to urinary tract infection. Patient came from halfway with complaints of abdominal pain. She also had multiple episodes of vomiting and loose stools. CAT scan showed left-sided pneumo ureter, multiple bilateral renal calculi. Patient had A-fib with RVR and initially was started on Cardizem drip. She developed agonal breathing and was intubated and placed on mechanical ventilation. Patient was subsequently extubated yesterday. Patient underwent a cystoscopy with removal of bladder calculi and bilateral stent insertions on 02/22. Blood pressure 110/56, heart rate in the 70s and 80s, pulse ox 93% on room air, respiratory rate 30. Temperature max was 102.6 on 02/21. Otherwise patient has been afebrile. Regarding atrial fibrillation, heart rate was up to 121. She is status post Cardizem 7.5 mg IV push. -EKG: Atrial fibrillation 115 bpm -Chest x-ray: No acute process. -Laboratory studies: WBC peaked at 20.9 currently 6.2, hemoglobin 7.6 down from 11.2. Sodium 133, potassium 4.7, BUN 45 creatinine 0.98. Procalcitonin 4.22. Magnesium 2.0. Urinalysis positive for UTI. Urine culture is gram-negative bacilli. Blood culture Proteus mirabilis, molecular ID. -Home cardiac medications: Eliquis 2.5 mg twice daily, atorvastatin 40 mg daily, Coreg 12.5 mg twice daily, Jardiance 10 mg daily, Lasix 20 mg daily. -Echocardiogram performed 03/05/2024 at [facility] revealed EF of 65 to 70% with mild LVH. -Jazmyne scan Cardiolite stress test performed in the office 07/07/2022 revealed inconclusive EKG part of the stress test due to baseline EKG abnormalities. Abnormal nuclear scan showing ischemia involving the inferior lateral wall. 02/24 Patient seen and examined in the intensive care unit. Patient is currently off oxygen. She has had some nausea per her nurse. Patient denies pain. Echocardiogram is pending. Blood pressure 127/74, heart rate 84, pulse ox 94% on room air. Repeat blood work reveals hemoglobin 7.7, potassium 3.4, BUN 42 creatinine 0.91. 02/25 Patient seen and examined. Patient denies any chest pain or pressure. She wants to eat food however receiving tube feeds. Echocardiogram performed with a EF 60% with RVSP 60 and mild aortic stenosis. 02/26 Patient seen and examined. Patient denies any chest pain or pressure. No significant shortness of breath. Underwent video swallow eval 02/27 patient seen and examined. Patient doing better. Possible discharge home tomorrow. Denies any chest pain or pressure. Is having some increased lower extremity edema. Denies any significant dyspnea currently 02/28 patient seen and examined. Patient denies any chest pain or pressure. Her shortness breath has improved. Physical examination: Gen: This is an 84-year-old female in no acute respiratory distress. VS: reviewed HEENT: Head is atraumatic, normocephalic. Pupils equal, round. Sclerae is anicteric. NECK: Supple. No JVD. LUNGS: Clear to auscultation. No wheezes or rhonchi. No intercostal retractions. HEART: Regular rate and rhythm. No murmur. ABDOMEN: Soft No tenderness. EXTREMITIES: No pedal edema. No calf tenderness. NEUROLOGICAL: Patient is awake, alert. Unable to understand patient's garbled speech that is secondary to previous CVA. 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 Continue with current regimen she is having some edema and continue her home Lasix. stable for discharge from a cardiology standpoint. Objective - Vital Signs Vital signs: Vital Signs Temp 98.1 F 06/05/25 14:00 Pulse 86 02/28/25 14:00 Resp 12 02/28/25 14:00 BP 126/68 02/28/25 14:00 Pulse Ox 98 02/28/25 14:00 FiO2 40 02/22/25 10:15 Intake & Output 02/27/25 02/28/25 02/28/25 18:59 06:59 18:59 Intake Total 292 50 Output Total 1250 2750 1600 Balance -549 -1377 -1600 Weight 74.9 kg 73.7 kg Intake: IV 50 50 cefTRIAXone 2 gm In 50 50 Sodium Chloride 0.9% 50 ml @ 100 mls/hr IVPB Q24H [facility] Rx#:[id number] Tube Feeding 152 Other 90 Output: Urine 1250 2750 1600 Other: Voiding Method Indwelling Catheter Indwelling Catheter Indwelling Catheter - Labs CBC & Chem 7: 02/28/25 05:16 02/28/25 14:05 Labs: Abnormal Lab Results - Last 24 Hours (Table) 02/27/25 02/27/25 02/28/25 Range/Units 16:09 19:52 05:16 RBC (4.10-5.20) 10*6/uL Hgb (12.0-15.0) g/dL Hct (37.2-46.3) % MCV (80.0-97.0) fL MCH (27.0-32.0) pg MCHC (32.0-37.0) g/dL Lymphocytes # (0.90-5.00) 10*3/uL Potassium 3.3 L (3.5-5.1) mmol/L BUN 32 H (7-17) mg/dL POC Glucose (mg/dL) 198 H 185 H (70-110) mg/dL Calcium 7.7 L (8.4-10.2) mg/dL 02/28/25 02/28/25 Range/Units 05:16 11:22 RBC 3.23 L (4.10-5.20) 10*6/uL Hgb 7.9 L (12.0-15.0) g/dL Hct 25.2 L (37.2-46.3) % MCV 78.0 L (80.0-97.0) fL MCH 24.5 L (27.0-32.0) pg MCHC 31.3 L (32.0-37.0) g/dL Lymphocytes # 0.75 L (0.90-5.00) 10*3/uL Potassium (3.5-5.1) mmol/L BUN (7-17) mg/dL POC Glucose (mg/dL) 157 H (70-110) mg/dL Calcium (8.4-10.2) mg/dL Microbiology - Last 24 Hours (Table) 02/23/25 03:26 Blood Culture - Final Blood 02/26/25 15:48 Urine Culture - Final Urine,Voided
== END 2025-02-28 17:23 | DRG 659 ==
LOC: EC 16:41 → 4SSUR 21:08 → 3SCARD 22:55 → 2SICU 02-22 00:26
PROVIDERS: ADMIT Internal Medicine; ATTEND Internal Medicine
PROC: 0T788DZ Dilation of Bilateral Ureters with Intraluminal Device, Via Natural or Artificial Opening Endoscopic (ICD-10-PCS; 2025-02-22)
PROC: 0TCB8ZZ Extirpation of Matter from Bladder, Via Natural or Artificial Opening Endoscopic (ICD-10-PCS; 2025-02-22)
PROC: 0BH17EZ Insertion of Endotracheal Airway into Trachea, Via Natural or Artificial Opening (ICD-10-PCS; 2025-02-22)
PROC: 03HY32Z Insertion of Monitoring Device into Upper Artery, Percutaneous Approach (ICD-10-PCS; 2025-02-22)
PROC: 4A133B1 Monitoring of Arterial Pressure, Peripheral, Percutaneous Approach (ICD-10-PCS; 2025-02-22)
PROC: 4A133J1 Monitoring of Arterial Pulse, Peripheral, Percutaneous Approach (ICD-10-PCS; 2025-02-22)
PROC: 3E033XZ Introduction of Vasopressor into Peripheral Vein, Percutaneous Approach (ICD-10-PCS; 2025-02-22)
PROC: 5A1945Z Respiratory Ventilation, 24-96 Consecutive Hours (ICD-10-PCS; principal; 2025-02-22 09:50)
DX: T83.511A Infection and inflammatory reaction due to indwelling urethral catheter, initial encounter (principal); A41.02 Sepsis due to Methicillin resistant Staphylococcus aureus; J96.01 Acute respiratory failure with hypoxia; R65.21 Severe sepsis with septic shock; A41.52 Sepsis due to Pseudomonas; I48.19 Other persistent atrial fibrillation; D50.9 Iron deficiency anemia, unspecified; E11.65 Type 2 diabetes mellitus with hyperglycemia; I69.351 Hemiplegia and hemiparesis following cerebral infarction affecting right dominant side; F03.90 Unspecified dementia, unspecified severity, without behavioral disturbance, psychotic disturbance, mood disturbance, and anxiety; I10 Essential (primary) hypertension; N10 Acute pyelonephritis; Z79.4 Long term (current) use of insulin; Z93.1 Gastrostomy status; D63.8 Anemia in other chronic diseases classified elsewhere; I69.320 Aphasia following cerebral infarction; E78.5 Hyperlipidemia, unspecified; N21.0 Calculus in bladder; I25.10 Atherosclerotic heart disease of native coronary artery without angina pectoris; M19.90 Unspecified osteoarthritis, unspecified site; N20.0 Calculus of kidney; R31.0 Gross hematuria; Z79.01 Long term (current) use of anticoagulants; Z79.84 Long term (current) use of oral hypoglycemic drugs; Z79.899 Other long term (current) drug therapy; Z82.49 Family history of ischemic heart disease and other diseases of the circulatory system; Z85.42 Personal history of malignant neoplasm of other parts of uterus; Z87.440 Personal history of urinary (tract) infections; Z88.6 Allergy status to analgesic agent; Z88.1 Allergy status to other antibiotic agents; Y84.6 Urinary catheterization as the cause of abnormal reaction of the patient, or of later complication, without mention of misadventure at the time of the procedure
CPT/HCPCS: 36415; 36600; 71045; 74176; 74230; 80048; 80053; 81001; 82150; 82805; 83690; 83735; 84132; 84145; 85025; 87040; 87070; 87077; 87086; 87186; 87205; 93005; 93306; 94002; 94640; 96365; 96366; 96367; 96375; 99291

== ENCOUNTER 2025-04-14 19:46 | Inpatient (IN) | payer MEDICARE ==
--- NOTE | 2025-04-14 19:59 | ED ---
General Adult HPI - General Chief complaint: Urogenital Stated complaint: Hematuria Time Seen by Provider: 04/14/25 19:47 Source: patient, EMS Mode of arrival: EMS Limitations: no limitations - History of Present Illness Initial comments: Dictation was produced using GreenNote dictation software. please excuse any grammatical, word or spelling errors. Chief Complaint: 84-year-old female with hematuria and low blood pressure History of Present Illness: Patient is 84-year-old female multiple comorbidities including hemiaplasia and CVA. Patient debilitated nonambulatory. Patient currently at [facility]. She was noted to have hematuria. She had a blood pressure checked by snf staff is found to be 88/56. EMS arrived on scene and checked her blood pressure which was similar. Patient denies any significant plaints at the bedside. The ROS documented in this emergency department record has been reviewed and confirmed by me. Those systems with pertinent positive or negative responses have been documented in the HPI. All other systems are other negative and/or noncontributory. - Related Data Home Medications Medication Instructions Recorded Confirmed Atorvastatin [Lipitor] 40 mg PEG/G-TUBE DAILY 06/19/24 02/22/25 Famotidine [Pepcid] 20 mg PEG/G-TUBE DAILY 06/19/24 02/22/25 Magnesium Hydroxide [Milk of 7,200 mg PEG/G-TUBE DAILY PRN 06/19/24 02/22/25 Magnesia Concentrate] Na Phos,M-B/Na Phos,Di-Ba [Fleet 133 ml RECTAL DAILY PRN 06/19/24 02/22/25 Adult] Saliva Stimulant Comb. No.3 1 tsp MUCOUS MEM Q12H PRN 06/19/24 02/22/25 [Biotene Moisturizing Mouth] bisacodyL [Dulcolax] 10 mg RECTAL DAILY PRN 06/19/24 02/22/25 Acetaminophen Tab [Tylenol] 500 mg PEG/G-TUBE Q6HR PRN 07/27/24 02/22/25 INSULIN LISPRO (humaLOG) [humaLOG] See Protocol SQ ACHS 07/27/24 02/22/25 Apixaban [Eliquis] 2.5 mg PEG/G-TUBE BID 10/11/24 02/22/25 Ferrous Sulfate Oral Elixir 450 mg PEG/G-TUBE DAILY 10/11/24 02/22/25 [Feosol Liquid] Ipratropium-Albuterol Nebulize 3 ml INHALATION RT-TID PRN 10/11/24 02/22/25 [Duoneb 0.5 mg-3 mg/3 ml Soln] Lactulose [Cephulac] 30 gm PO DAILY 10/11/24 02/22/25 Metoclopramide [Reglan] 5 mg PEG/G-TUBE DAILY 10/11/24 02/22/25 Simethicone 40 mg/0.6 ml Drops 40 mg PEG/G-TUBE QID 10/11/24 02/22/25 [Mylicon Drops] guaiFENesin [guaiFENesin ER] 600 mg PEG/G-TUBE Q12H PRN 10/11/24 02/22/25 Insulin Glargine,Hum.rec.anlog 5 units SQ DAILY 02/22/25 02/22/25 [Lantus Solostar Pen] Lactulose [Constulose] 30 gm PEG/G-TUBE Q12H PRN 02/22/25 02/22/25 Loperamide [Imodium] 4 mg PEG/G-TUBE QID PRN 02/22/25 02/22/25 Previous Rx's Medication Instructions Recorded Furosemide [Lasix] 40 mg PEG/G-TUBE DAILY #0 02/28/25 Potassium Chloride ER [K-Dur 10] 10 meq PO DAILY tab 02/28/25 Sulfamethox-Tmp 800-160Mg [Bactrim 1 tab PO Q12HR 7 Days #14 tab 02/28/25 DS 800-160 mg] carvediloL [Coreg*] 25 mg PO BID-W/MEALS tab 02/28/25 Allergies Allergy/AdvReac Type Severity Reaction Status Date / Time bacitracin Allergy Rash/Hives Verified 04/14/25 19:55 [From Neosporin ([id number])] ibuprofen Allergy Anaphylaxis Verified 04/14/25 19:55 & Rash all over neomycin Allergy Rash/Hives Verified 04/14/25 19:55 [From Neosporin ([id number])] polymyxin B Allergy Rash/Hives Verified 04/14/25 19:55 [From Neosporin ([id number])] Review of Systems ROS Statement: Those systems with pertinent positive or pertinent negative responses have been documented in the HPI. ROS Other: All systems not noted in ROS Statement are negative. 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 Date of last positivie culture/infection: 02/22/25 MDRO Source:: urine Past Surgical History: No Surgical Hx Reported Additional Past Surgical History / Comment(s): cataract & carpal-tunnel bilat, bilat ureteral stent insertion February 2025 Past Anesthesia/Blood Transfusion Reactions: No Reported Reaction Past Psychological History: No Psychological Hx Reported Smoking Status: Never smoker Past Alcohol Use History: None Reported Past Drug Use History: None Reported - Past Family History Mother Family Medical History: Coronary Artery Disease (CAD), Diabetes Mellitus, Hypertension, Mitral Valve Prolapse (MVP) Father Family Medical History: Hypertension Additional Family Medical History / Comment(s): father hip surgery General Exam - General Exam Comments Initial Comments: PHYSICAL EXAM: General Impression: Alert and oriented x3, not in acute distress HEENT: Normocephalic atraumatic, extra-ocular movements intact, pupils equal and reactive to light bilaterally, mucous membranes moist. Cardiovascular: Heart regular rate and rhythm Chest: Able to complete full sentences, no retractions, no tachypnea Abdomen: abdomen soft, non-tender, non-distended, no organomegaly Musculoskeletal: Pulses present and equal in all extremities, no peripheral edema Motor: no focal deficits noted Neurological: CN II-XII grossly intact Skin: Intact with no visualized rashes Psych: Normal affect and mood Limitations: no limitations Course Vital Signs 04/14/25 19:51 Temperature 97.7 F Pulse Rate 91 Respiratory 16 Rate Blood Pressure 104/61 O2 Sat by Pulse 99 Oximetry EKG Findings - EKG Comments: EKG Findings:: My EKG interpretation: Ventricular rate 93, A-fib, QRS 105, QTc 420. No QTC prolongation, no ST or T-wave changes noted. Overall, this EKG is unremarkable Medical Decision Making - Medical Decision Making Was pt. sent in by a medical professional or institution (, PA, BAKERY DELIVERER, urgent care, hospital, or snf...) When possible be specific @ -No Did you speak to anyone other than the patient for history (EMS, parent, family, police, friend...)? What history was obtained from this source @ -No Did you review nursing and triage notes (agree or disagree)? Why? @ -I reviewed and agree with nursing and triage notes Were old charts reviewed (outside hosp., previous admission, EMS record, old EKG, old radiological studies, urgent care reports/EKG's, snf records)? Report findings @ -No old charts were reviewed Differential Diagnosis (chest pain, altered mental status, abdominal pain women, abdominal pain men, vaginal bleeding, musculoskeletal, weakness, fever, dyspnea, syncope, headache, dizziness, GI bleed, back pain, seizure, CVA, palpatations, mental health)? @ -Differential Weakness: Hypoglycemia, shock, sepsis, hyponatremia, anemia, infection, FL, ETOH, adverse medicine reaction, overdose, stroke, this is not meant to be an all-inclusive list. EKG interpreted by me (3pts min.). @ -None done X-rays interpreted by me (1pt min.). @ -None done CT interpreted by me (1pt min.). @ -None done U/S interpreted by me (1pt. min.). @ -None done What testing was considered but not performed or refused? (CT, X-rays, U/S, labs)? Why? @ -None What meds were considered but not given or refused? Why? @ -None Was smoking cessation discussed for >3mins.? @ -No Were there social determinants of health that impacted care today? How? (Homelessness, low income, unemployed, alcoholism, drug addiction, transportation, low edu. Level, literacy, decrease access to med. care, long term, rehab)? @ -No Was there de-escalation of care discussed even if they declined (Discuss DNR or withdrawal of care, Hospice)? DNR status @ -No What co-morbidities impacted this encounter? (DM, HTN, Smoking, COPD, CAD, Cancer, CVA, ARF, Chemo, Hep., AIDS, mental health diagnosis, sleep apnea, morbid obesity)? @ -Debility Was patient admitted / discharged? Hospital course, mention meds given and route, prescriptions, significant lab abnormalities, going to OR and other pertinent info. @ -84-year-old female presents emergency department with hematuria and low blood pressure at snf. Vital signs upon arrival shows blood pressure 104/61. Labs otherwise shows hemoglobin 7.3. Urine is positive for blood. Labs otherwise within acceptable limits. Given patient's age and debility she will be admitted observation for blood pressure monitoring and hemoglobin monitoring. Case discussed with hospitalist for admission Did you discuss the management of the patient with other professionals (professionals i.e. , PA, BAKERY DELIVERER, lab, RT, psych nurse, social sciences lecturer, medical charge entry specialist, teacher, correction officer reformatory, showcase maker)? Give summary @ -No Was critical care preformed (if so, how long)? @ -No Undiagnosed new problem with uncertain prognosis? @ -No Drug Therapy requiring intensive monitoring for toxicity (Heparin, Nitro, Insulin, Cardizem)? @ -No Were any procedures done? @ -No Diagnosis/symptom? Acute, or Chronic, or Acute on Chronic? Uncomplicated (without systemic symptoms) or Complicated (systemic symptoms)? @ -Hypotension, hematuria Side effects of treatment? @ -No Exacerbation, Progression, or Severe Exacerbation? @ -No Poses a threat to life or bodily function? How? (Chest pain, USA, FL, pneumonia, PE, COPD, DKA, ARF, appy, cholecystitis, CVA, Diverticulitis, Homicidal, Suicidal, threat to staff... and all critical care pts) @ -yes - Lab Data Result diagrams: 04/14/25 20:01 04/14/25 20:01 Lab Results 04/14/25 04/14/25 04/14/25 Range/Units 20:01 20:01 20:01 WBC 6.64 (4.50-10.00) 10*3/uL RBC 2.94 L (4.10-5.20) 10*6/uL Hgb 7.3 L (12.0-15.0) g/dL Hct 23.4 L (37.2-46.3) % MCV 79.6 L (80.0-97.0) fL MCH 24.8 L (27.0-32.0) pg MCHC 31.2 L (32.0-37.0) g/dL Plt Count 264 (140-440) 10*3/uL MPV 8.6 L (9.5-12.2) fL Immature Gran % (Auto) 0.5 % Neutrophils % 74.5 % Lymphocytes % 14.5 % Monocytes % 8.4 % Eosinophils % 1.8 % Basophils % 0.3 % Immature Gran # 0.03 (0.00-0.04) 10*3/uL Neutrophils # 4.95 (1.80-7.70) 10*3/uL Lymphocytes # 0.96 (0.90-5.00) 10*3/uL Monocytes # 0.56 (0.20-1.00) 10*3/uL Eosinophils # 0.12 (0.04-0.35) 10*3/uL Basophils # 0.02 (0.00-0.10) 10*3/uL PT 13.0 H (10.0-12.5) sec INR 1.2 H (<1.2) APTT 27.7 (22.0-30.0) sec Sodium 135 L (137-145) mmol/L Potassium 3.5 (3.5-5.1) mmol/L Chloride 103 (98-107) mmol/L Carbon Dioxide 23 (22-30) mmol/L Anion Gap 9 mmol/L BUN 20 H (7-17) mg/dL Creatinine 1.11 H (0.52-1.04) mg/dL Est GFR (CKD-EPI)AfAm 54 (>60 ml/min/1.73 sqM) Est GFR (CKD-EPI)NonAf 47 (>60 ml/min/1.73 sqM) Glucose 241 H (74-99) mg/dL Plasma Lactic Acid Jose L (0.7-2.0) mmol/L Calcium 7.6 L (8.4-10.2) mg/dL Magnesium 1.8 (1.6-2.3) mg/dL Total Bilirubin 0.6 (0.2-1.3) mg/dL AST 19 (14-36) U/L ALT 8 (4-34) U/L Alkaline Phosphatase 99 (38-126) U/L Troponin I (0.000-0.034) ng/mL Total Protein 5.7 L (6.3-8.2) g/dL Albumin 2.4 L (3.5-5.0) g/dL Urine Color Urine Appearance (Clear) 04/14/25 04/14/25 04/14/25 Range/Units 20:01 20:01 20:36 WBC (4.50-10.00) 10*3/uL RBC (4.10-5.20) 10*6/uL Hgb (12.0-15.0) g/dL Hct (37.2-46.3) % MCV (80.0-97.0) fL MCH (27.0-32.0) pg MCHC (32.0-37.0) g/dL Plt Count (140-440) 10*3/uL MPV (9.5-12.2) fL Immature Gran % (Auto) % Neutrophils % % Lymphocytes % % Monocytes % % Eosinophils % % Basophils % % Immature Gran # (0.00-0.04) 10*3/uL Neutrophils # (1.80-7.70) 10*3/uL Lymphocytes # (0.90-5.00) 10*3/uL Monocytes # (0.20-1.00) 10*3/uL Eosinophils # (0.04-0.35) 10*3/uL Basophils # (0.00-0.10) 10*3/uL PT (10.0-12.5) sec INR (<1.2) APTT (22.0-30.0) sec Sodium (137-145) mmol/L Potassium (3.5-5.1) mmol/L Chloride (98-107) mmol/L Carbon Dioxide (22-30) mmol/L Anion Gap mmol/L BUN (7-17) mg/dL Creatinine (0.52-1.04) mg/dL Est GFR (CKD-EPI)AfAm (>60 ml/min/1.73 sqM) Est GFR (CKD-EPI)NonAf (>60 ml/min/1.73 sqM) Glucose (74-99) mg/dL Plasma Lactic Acid Jose L 2.5 H* (0.7-2.0) mmol/L Calcium (8.4-10.2) mg/dL Magnesium (1.6-2.3) mg/dL Total Bilirubin (0.2-1.3) mg/dL AST (14-36) U/L ALT (4-34) U/L Alkaline Phosphatase (38-126) U/L Troponin I 0.016 (0.000-0.034) ng/mL Total Protein (6.3-8.2) g/dL Albumin (3.5-5.0) g/dL Urine Color Red Urine Appearance Bloody H (Clear) Disposition Clinical Impression: Hypotension Disposition: ADMITTED IP TO THIS HOSP Condition: Fair Referrals: Francesco Gaston MD [Primary Care Provider] - 1-2 days Decision Time: 20:51
[2025-04-14] MEDS: SODIUM CHLORIDE 0.9% 1,000 ML IV STA (20:01)
[2025-04-14 20:20] LABS: Basophils # (A) 0.02 10*3/uL (0.00-0.10); Basophils % (A) 0.3 %; Eosinophils # (A) 0.12 10*3/uL (0.04-0.35); Eosinophils % (A) 1.8 %; HCT 23.4 % (37.2-46.3); HGB 7.3 g/dL (12.0-15.0); Lymphocytes # (A) 0.96 10*3/uL (0.90-5.00); Lymphocytes % (A) 14.5 %; MCH 24.8 pg (27.0-32.0); MCHC 31.2 g/dL (32.0-37.0); MCV 79.6 fL (80.0-97.0); Monocytes # (A) 0.56 10*3/uL (0.20-1.00); Monocytes % (A) 8.4 %; Neutrophils # (A) 4.95 10*3/uL (1.80-7.70); Neutrophils % (A) 74.5 %; Platelet Count 264 10*3/uL (140-440); RBC 2.94 10*6/uL (4.10-5.20); RDW 19.9 % (11.5-14.5); WBC 6.64 10*3/uL (4.50-10.00)
[2025-04-14 20:32] LABS: INR 1.2 (<1.2); Partial Thromboplastin Time 27.7 sec (22.0-30.0); Prothrombin Time 13.0 sec (10.0-12.5)
[2025-04-14 20:34] LABS: ALT 8 U/L (4-34); AST 19 U/L (14-36); African American GFR (CKD) 54 (>60 ml/min/1.73 sqM); Albumin 2.4 g/dL (3.5-5.0); Alkaline Phosphatase 99 U/L (38-126); Anion Gap 9 mmol/L; Blood Urea Nitrogen 20 mg/dL (7-17); Calcium 7.6 mg/dL (8.4-10.2); Carbon Dioxide 23 mmol/L (22-30); Chloride 103 mmol/L (98-107); Glucose 241 mg/dL (74-99); Magnesium 1.8 mg/dL (1.6-2.3); Non-African American GFR(CKD) 47 (>60 ml/min/1.73 sqM); Potassium 3.5 mmol/L (3.5-5.1); Sodium 135 mmol/L (137-145); Total Protein 5.7 g/dL (6.3-8.2)
[2025-04-14 20:42] LABS: Color,Urine Red
[2025-04-14] MEDS ORDERED: ACETAMINOPHEN TAB 325 MG TAB PO PRN (20:48)
[2025-04-14] MEDS ORDERED: NALOXONE 0.4 MG/ML 1 ML VIAL IV PRN (20:48)
[2025-04-14 20:52] LABS: RBC,Urine >182 /hpf (0-5); WBC,Urine >182 /hpf (0-5)
[2025-04-14] MEDS: SODIUM CHLORIDE 0.9% 1,000 ML IV SCH (21:00)
[2025-04-14] MEDS: ONDANSETRON 4 MG/2 ML VIAL IVP STA (22:04)
[2025-04-15 06:15] LABS: Glucose,Whole Blood 136 mg/dL (70-110)
[2025-04-15] MEDS ORDERED: ACETAMINOPHEN TAB 500 MG TAB PEG/G-TUBE PRN (09:46)
[2025-04-15] MEDS ORDERED: IPRATROPIUM-ALBUTEROL 3 ML NEB INHALATION PRN (09:46)
[2025-04-15] MEDS ORDERED: DRY MOUTH SPRAY 59 SPRAY/59 ML SPRAY MUCOUS MEM PRN (09:46)
[2025-04-15 10:24] LABS: Basophils # (A) 0.02 10*3/uL (0.00-0.10); Basophils % (A) 0.3 %; Eosinophils # (A) 0.19 10*3/uL (0.04-0.35); Eosinophils % (A) 2.7 %; HCT 22.0 % (37.2-46.3); Lymphocytes # (A) 1.09 10*3/uL (0.90-5.00); Lymphocytes % (A) 15.8 %; MCH 25.2 pg (27.0-32.0); MCHC 31.4 g/dL (32.0-37.0); MCV 80.3 fL (80.0-97.0); Monocytes # (A) 0.62 10*3/uL (0.20-1.00); Monocytes % (A) 9.0 %; Neutrophils # (A) 4.98 10*3/uL (1.80-7.70); Neutrophils % (A) 72.1 %; Platelet Count 263 10*3/uL (140-440); RBC 2.74 10*6/uL (4.10-5.20); RDW 19.9 % (11.5-14.5); WBC 6.91 10*3/uL (4.50-10.00)
[2025-04-15 10:29] LABS: HGB 6.9 g/dL (12.0-15.0)
[2025-04-15 10:48] LABS: ALT 9 U/L (4-34); AST 15 U/L (14-36); African American GFR (CKD) 50 (>60 ml/min/1.73 sqM); Albumin 2.2 g/dL (3.5-5.0); Albumin/Globulin Ratio 0.7; Alkaline Phosphatase 89 U/L (38-126); Anion Gap 9 mmol/L; Blood Urea Nitrogen 21 mg/dL (7-17); Calcium 8.1 mg/dL (8.4-10.2); Carbon Dioxide 23 mmol/L (22-30); Chloride 105 mmol/L (98-107); Globulin 3.2 g/dL; Glucose 145 mg/dL (74-99); Non-African American GFR(CKD) 43 (>60 ml/min/1.73 sqM); Potassium 3.5 mmol/L (3.5-5.1); Sodium 137 mmol/L (137-145); Total Protein 5.4 g/dL (6.3-8.2)
[2025-04-15 11:25] LABS: Glucose,Whole Blood 219 mg/dL (70-110)
[2025-04-15 11:38] LABS: Basophils # (A) 0.02 10*3/uL (0.00-0.10); Basophils % (A) 0.3 %; Eosinophils # (A) 0.17 10*3/uL (0.04-0.35); Eosinophils % (A) 2.6 %; HCT 20.7 % (37.2-46.3); Lymphocytes # (A) 1.08 10*3/uL (0.90-5.00); Lymphocytes % (A) 16.7 %; MCH 25.2 pg (27.0-32.0); MCHC 30.9 g/dL (32.0-37.0); MCV 81.5 fL (80.0-97.0); Monocytes # (A) 0.59 10*3/uL (0.20-1.00); Monocytes % (A) 9.1 %; Neutrophils # (A) 4.61 10*3/uL (1.80-7.70); Neutrophils % (A) 71.1 %; Platelet Count 264 10*3/uL (140-440); RBC 2.54 10*6/uL (4.10-5.20); RDW 19.8 % (11.5-14.5); WBC 6.48 10*3/uL (4.50-10.00)
[2025-04-15 11:42] LABS: HGB 6.4 g/dL (12.0-15.0)
[2025-04-15] MEDS: LACTULOSE 20 GM/30 ML CUP PEG/G-TUBE SCH (12:44)
[2025-04-15] MEDS: SIMETHICONE 40 MG/0.6 ML DROPS 2,000 MG/30 ML BOTTLE PEG/G-TUBE SCH (12:45)
--- NOTE | 2025-04-15 14:28 | P.HPIM ---
History of Present Illness H&P Date: 04/15/25 Chief Complaint: Hematuria History of present illness; 84 year old female with past medical history of atrial fibrillation, CVA/TIA w/ residual left sided hemiparesis, diabetes mellitus, hypertension, osteoarthritis, history of uterine cancer with incontinence of urine and recurrent urinary tract infections brought from [facility] to the ER due to hypotension 88/56 found this morning. Complaints of "vaginal bleeding", pt is a poor historian due to history of CVA and hemiparesis, can not recall home medication, or surgical history. History was taken from ER physician and previous documentation. In the ER pt was hypotensive to 88 systolic, laboratories were taken revealing massive hematuria, 182 RBC in urine, as well as numerous white blood cells. CBC revealed hemoglobin of 7.1. EKG revealed aFib with RVR consistent with previous admissions Pt was admitted to the medical team for evaluation of hematuria and anemia with consults to urology Labs: WBC 6.48 Hgb 6.4 Plt 264 NA 137 K3.5 CO2 23 BUN 21 CR 1.18 GLU 219 Ca 8.1 EKG REVIEW OF SYSTEMS: As stated above in HPI. The rest of the 14-point review of systems is negative. PHYSICAL EXAMINATION: GENERAL: The patient is alert and oriented x3, not in any acute distress. Well developed, well nourished. HEENT: Pupils are round and equally reacting to light. EOMI. No scleral icterus. No conjunctival pallor. Normocephalic, atraumatic. CARDIOVASCULAR: S1 and S2 present. No murmurs, rubs, or gallops. PULMONARY: Chest is clear to auscultation b/l, no wheezing or crackles. ABDOMEN: Soft, nontender, nondistended, normoactive bowel sounds. No palpable organomegaly. MUSCULOSKELETAL: No joint swelling or deformity. EXTREMITIES: No cyanosis, clubbing, or pedal edema. NEUROLOGICAL: Gross neurological examination did not reveal any focal deficits. SKIN: No rashes. : Quang blood at vaginal os source difficult to localize. Exam performed with time cycle operator Assessment and Plan #Hematuria #Microcytic Anemia Secondary to above #Hypotension Secondary to Above -2 units RBC -Monitor CBC daily -Transfuse if Hbg< 7 -Hold Asprin -Hold apixiban -Consulted Urology Recommendations appreciated Chronic Conditions: #Chronic Constipation -Continue home medication #CAD #AFib #CHF -Hold until hypotension manage #T2DM -Sliding Scale DVT ppx: SCD GI ppx: Famotadine CODE STATUS: Full Dispo: Pending Clinical Course 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 Date of last positivie culture/infection: 02/22/25 MDRO Source:: urine Past Surgical History: No Surgical Hx Reported Additional Past Surgical History / Comment(s): cataract & carpal-tunnel bilat, bilat ureteral stent insertion February 2025 Past Anesthesia/Blood Transfusion Reactions: No Reported Reaction Past Psychological History: No Psychological Hx Reported Smoking Status: Never smoker Past Alcohol Use History: None Reported Past Drug Use History: None Reported - Past Family History Mother Family Medical History: Coronary Artery Disease (CAD), Diabetes Mellitus, Hypertension, Mitral Valve Prolapse (MVP) Father Family Medical History: Hypertension Additional Family Medical History / Comment(s): father hip surgery Medications and Allergies Home Medications Medication Instructions Recorded Confirmed Type Atorvastatin [Lipitor] 40 mg PEG/G-TUBE DAILY 06/19/24 04/15/25 History Famotidine [Pepcid] 20 mg PEG/G-TUBE DAILY 06/19/24 04/15/25 History Magnesium Hydroxide [Milk of 7,200 mg PEG/G-TUBE DAILY PRN 06/19/24 04/15/25 H istory Magnesia Concentrate] Na Phos,M-B/Na Phos,Di-Ba [Fleet 133 ml RECTAL DAILY PRN 06/19/24 04/15/25 History Adult] Saliva Stimulant Comb. No.3 1 tsp MUCOUS MEM Q12H PRN 06/19/24 04/15/25 History [Biotene Moisturizing Mouth] bisacodyL [Dulcolax] 10 mg RECTAL DAILY PRN 06/19/24 04/15/25 History Acetaminophen Tab [Tylenol] 500 mg PEG/G-TUBE Q6HR PRN 07/27/24 04/15/25 History INSULIN LISPRO (humaLOG) [humaLOG] See Protocol SQ ACHS 07/27/24 04/15/25 History Apixaban [Eliquis] 2.5 mg PEG/G-TUBE BID 10/11/24 04/15/25 History Ferrous Sulfate Oral Elixir 450 mg PEG/G-TUBE DAILY 10/11/24 04/15/25 History [Feosol Liquid] Ipratropium-Albuterol Nebulize 3 ml INHALATION RT-TID PRN 10/11/24 04/15/25 History [Duoneb 0.5 mg-3 mg/3 ml Soln] Lactulose [Cephulac] 30 gm PEG/G-TUBE DAILY 10/11/24 04/15/25 History Metoclopramide [Reglan] 5 mg PEG/G-TUBE DAILY 10/11/24 04/15/25 History Simethicone 40 mg/0.6 ml Drops 40 mg PEG/G-TUBE QID 10/11/24 04/15/25 History [Mylicon Drops] guaiFENesin [guaiFENesin ER] 600 mg PEG/G-TUBE Q12H PRN 10/11/24 04/15/25 History Insulin Glargine,Hum.rec.anlog 5 units SQ DAILY 02/22/25 04/15/25 History [Lantus Solostar Pen] Lactulose [Constulose] 30 gm PEG/G-TUBE Q12H PRN 02/22/25 04/15/25 History Loperamide [Imodium] 4 mg PEG/G-TUBE QID PRN 02/22/25 04/15/25 History Furosemide [Lasix] 40 mg PEG/G-TUBE DAILY #0 02/28/25 04/15/25 Rx Potassium Chloride ER [K-Dur 10] 10 meq PO DAILY tab 02/28/25 04/15/25 Rx Cetirizine HCl [Zyrtec] 10 mg PEG/G-TUBE DAILY 04/15/25 04/15/25 History Nystatin 100,000Unit/gm Cream 1 applic TOPICAL BID 04/15/25 04/15/25 History [Mycostatin Cream] carvediloL [Coreg*] 25 mg PEG/G-TUBE BID-W/MEALS 04/15/25 04/15/25 History Ciprofloxacin HCl [Cipro] 500 mg PO BID 10 Days #20 tab 04/25/25 Rx Allergies Allergy/AdvReac Type Severity Reaction Status Date / Time bacitracin Allergy Rash/Hives Verified 04/15/25 09:01 [From Neosporin ([id number])] ibuprofen Allergy Anaphylaxis Verified 04/15/25 09:01 & Rash all over neomycin Allergy Rash/Hives Verified 04/15/25 09:01 [From Neosporin ([id number])] polymyxin B Allergy Rash/Hives Verified 04/15/25 09:01 [From Neosporin ([id number])] Physical Exam Vitals: Vital Signs Temp Pulse Pulse Resp BP BP Pulse Ox 04/15/25 06:40 97.8 F 104 H 17 95/59 99 04/15/25 06:25 99/77 04/15/25 01:25 97.4 F L 112 H 18 100/54 99 04/15/25 01:06 81 16 101/53 99 04/14/25 22:56 98.0 F 91 16 107/58 99 04/14/25 22:33 71 16 117/54 98 04/14/25 21:32 91 16 102/55 99 04/14/25 20:30 82 16 102/47 99 04/14/25 20:15 89 16 107/46 99 04/14/25 19:51 97.7 F 91 16 104/61 99 Intake and Output 04/14/25 04/15/25 04/15/25 22:59 06:59 14:59 Intake Total 200 Balance 200 Intake: Oral 200 Other: # Voids 1 Weight 62.823 kg 62.823 kg Results CBC & Chem 7: 04/25/25 04:33 04/25/25 04:33 Labs: Abnormal Lab Results - Last 24 Hours (Table) 04/14/25 04/14/25 04/14/25 Range/Units 20:01 20:01 20:01 RBC 2.94 L (4.10-5.20) 10*6/uL Hgb 7.3 L (12.0-15.0) g/dL Hct 23.4 L (37.2-46.3) % MCV 79.6 L (80.0-97.0) fL MCH 24.8 L (27.0-32.0) pg MCHC 31.2 L (32.0-37.0) g/dL MPV 8.6 L (9.5-12.2) fL PT 13.0 H (10.0-12.5) sec INR 1.2 H (<1.2) Sodium 135 L (137-145) mmol/L BUN 20 H (7-17) mg/dL Creatinine 1.11 H (0.52-1.04) mg/dL Glucose 241 H (74-99) mg/dL POC Glucose (mg/dL) (70-110) mg/dL Plasma Lactic Acid Jose L (0.7-2.0) mmol/L Calcium 7.6 L (8.4-10.2) mg/dL Total Protein 5.7 L (6.3-8.2) g/dL Albumin 2.4 L (3.5-5.0) g/dL Urine Appearance (Clear) Urine RBC (0-5) /hpf Urine WBC (0-5) /hpf 04/14/25 04/14/25 04/15/25 Range/Units 20:01 20:36 06:14 RBC (4.10-5.20) 10*6/uL Hgb (12.0-15.0) g/dL Hct (37.2-46.3) % MCV (80.0-97.0) fL MCH (27.0-32.0) pg MCHC (32.0-37.0) g/dL MPV (9.5-12.2) fL PT (10.0-12.5) sec INR (<1.2) Sodium (137-145) mmol/L BUN (7-17) mg/dL Creatinine (0.52-1.04) mg/dL Glucose (74-99) mg/dL POC Glucose (mg/dL) 136 H (70-110) mg/dL Plasma Lactic Acid Jose L 2.5 H* (0.7-2.0) mmol/L Calcium (8.4-10.2) mg/dL Total Protein (6.3-8.2) g/dL Albumin (3.5-5.0) g/dL Urine Appearance Bloody H (Clear) Urine RBC >182 H (0-5) /hpf Urine WBC >182 H (0-5) /hpf Thrombosis Risk Factor Assmnt - DVT/VTE Prophylaxis DVT/VTE Prophylaxis: Mechanical Prophylaxis ordered - Choose All That Apply Each Risk Factor Represents 3 Points: Age 75 years or older Thrombosis Risk Factor Assessment Total Risk Factor Score: 3 Thrombosis Risk Factor Assessment Level: Moderate Risk Assessment and Plan Assessment: Attestation 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
[2025-04-15 17:00] LABS: Glucose,Whole Blood 195 mg/dL (70-110)
--- NOTE | 2025-04-15 17:10 | XR ---
EXAMINATION TYPE: XR KUB DATE OF EXAM: 04/15/2025 4:04 PM COMPARISON: None. CLINICAL INDICATION: Female, 84 years old with history of stones, TECHNIQUE: XR KUB view(s) obtained. FINDINGS: There is a normal bowel gas pattern. Fecal debris is within the descending colon. Milder fecal retent ion is through the remaining colon. Psoas margins are normal. No organomegaly is present. Bilateral ureteral stents are present. Vascular calcifications in the region of the splenic artery. PEG tube is present IMPRESSION: 1. Moderate fecal retention. 2. Bilateral ureteral stents [facility], Workstation: [facility], 04/15/2025 5:08 PM
--- NOTE | 2025-04-15 19:25 | P.GSCN ---
History of Present Illness Consult date: 04/15/25 History of present illness: 84 yo female with known bilateral renal stones that are probably infected [previous culture with proteus mirabilis]was admitted for a uti with hematuria. She is scheduled with Dr Lawrence for a left pcnl on 04/23/2025. SHe has a t max of 99. HEr wbc are normal She is anemic. SHe has no pain. Her bp has improved with IVF. Review of Systems All systems: negative - Constitutional Denies fever, Denies weight loss - EENT Eyes: denies blurred vision Ears, nose, mouth and throat: Denies dysphagia - Cardiovascular Denies chest pain, Denies shortness of breath - Respiratory Denies cough, Denies 7 - Gastrointestinal Reports as per HPI - Genitourinary Genitourinary: Denies dysuria, Denies hematuria - Integumentary Denies rash, Denies unusual bruising - Neurological Denies headaches, Denies syncope - Hematologic/Lymphatic Denies easy bleeding, Denies easy bruising 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 Year Discovered:: 02/22/25 MDRO Source:: urine Past Surgical History: No Surgical Hx Reported Additional Past Surgical History / Comment(s): cataract & carpal-tunnel bilat, bilat ureteral stent insertion February 2025 Past Anesthesia/Blood Transfusion Reactions: No Reported Reaction Past Psychological History: No Psychological Hx Reported Smoking Status: Never smoker Past Alcohol Use History: None Reported Past Drug Use History: None Reported - Past Family History Mother Family Medical History: Coronary Artery Disease (CAD), Diabetes Mellitus, Hypertension, Mitral Valve Prolapse (MVP) Father Family Medical History: Hypertension Additional Family Medical History / Comment(s): father hip surgery Medications and Allergies Home Medications Medication Instructions Recorded Confirmed Type Atorvastatin [Lipitor] 40 mg PEG/G-TUBE DAILY 06/19/24 04/15/25 History Famotidine [Pepcid] 20 mg PEG/G-TUBE DAILY 06/19/24 04/15/25 History Magnesium Hydroxide [Milk of 7,200 mg PEG/G-TUBE DAILY PRN 06/19/24 04/15/25 History Magnesia Concentrate] Na Phos,M-B/Na Phos,Di-Ba [Fleet 133 ml RECTAL DAILY PRN 06/19/24 04/15/25 History Adult] Saliva Stimulant Comb. No.3 1 tsp MUCOUS MEM Q12H PRN 06/19/24 04/15/25 History [Biotene Moisturizing Mouth] bisacodyL [Dulcolax] 10 mg RECTAL DAILY PRN 06/19/24 04/15/25 History Acetaminophen Tab [Tylenol] 500 mg PEG/G-TUBE Q6HR PRN 07/27/24 04/15/25 History INSULIN LISPRO (humaLOG) [humaLOG] See Protocol SQ ACHS 07/27/24 04/15/25 History Apixaban [Eliquis] 2.5 mg PEG/G-TUBE BID 10/11/24 04/15/25 History Ferrous Sulfate Oral Elixir 450 mg PEG/G-TUBE DAILY 10/11/24 04/15/25 History [Feosol Liquid] Ipratropium-Albuterol Nebulize 3 ml INHALATION RT-TID PRN 10/11/24 04/15/25 History [Duoneb 0.5 mg-3 mg/3 ml Soln] Lactulose [Cephulac] 30 gm PEG/G-TUBE DAILY 10/11/24 04/15/25 History Metoclopramide [Reglan] 5 mg PEG/G-TUBE DAILY 10/11/24 04/15/25 History Simethicone 40 mg/0.6 ml Drops 40 mg PEG/G-TUBE QID 10/11/24 04/15/25 History [Mylicon Drops] guaiFENesin [guaiFENesin ER] 600 mg PEG/G-TUBE Q12H PRN 10/11/24 04/15/25 History Insulin Glargine,Hum.rec.anlog 5 units SQ DAILY 02/22/25 04/15/25 History [Lantus Solostar Pen] Lactulose [Constulose] 30 gm PEG/G-TUBE Q12H PRN 02/22/25 04/15/25 History Loperamide [Imodium] 4 mg PEG/G-TUBE QID PRN 02/22/25 04/15/25 History Furosemide [Lasix] 40 mg PEG/G-TUBE DAILY #0 02/28/25 04/15/25 Rx Potassium Chloride ER [K-Dur 10] 10 meq PO DAILY tab 02/28/25 04/15/25 Rx Cetirizine HCl [Zyrtec] 10 mg PEG/G-TUBE DAILY 04/15/25 04/15/25 History Nystatin 100,000Unit/gm Cream 1 applic TOPICAL BID 04/15/25 04/15/25 History [Mycostatin Cream] carvediloL [Coreg*] 25 mg PEG/G-TUBE BID-W/MEALS 04/15/25 04/15/25 History Allergies Allergy/AdvReac Type Severity Reaction Status Date / Time bacitracin Allergy Rash/Hives Verified 04/15/25 09:01 [From Neosporin ([id number])] ibuprofen Allergy Anaphylaxis Verified 04/15/25 09:01 & Rash all over neomycin Allergy Rash/Hives Verified 04/15/25 09:01 [From Neosporin ([id number])] polymyxin B Allergy Rash/Hives Verified 04/15/25 09:01 [From Neosporin ([id number])] Surgical - Exam Vital Signs Temp Pulse Resp BP Pulse Ox 97.7 F 91 16 104/61 99 04/14/25 19:51 04/14/25 19:51 04/14/25 19:51 04/14/25 19:51 04/14/25 19:51 Results - Labs 04/15/25 10:45 04/15/25 10:06 Abnormal Lab Results - Last 24 Hours (Table) 04/14/25 04/14/25 04/14/25 Range/Units 20:01 20:01 20:01 RBC 2.94 L (4.10-5.20) 10*6/uL Hgb 7.3 L (12.0-15.0) g/dL Hct 23.4 L (37.2-46.3) % MCV 79.6 L (80.0-97.0) fL MCH 24.8 L (27.0-32.0) pg MCHC 31.2 L (32.0-37.0) g/dL RDW (11.5-14.5) % MPV 8.6 L (9.5-12.2) fL PT 13.0 H (10.0-12.5) sec INR 1.2 H (<1.2) Sodium 135 L (137-145) mmol/L BUN 20 H (7-17) mg/dL Creatinine 1.11 H (0.52-1.04) mg/dL Glucose 241 H (74-99) mg/dL POC Glucose (mg/dL) (70-110) mg/dL Plasma Lactic Acid Jose L (0.7-2.0) mmol/L Calcium 7.6 L (8.4-10.2) mg/dL Total Protein 5.7 L (6.3-8.2) g/dL Albumin 2.4 L (3.5-5.0) g/dL Urine Appearance (Clear) Urine RBC (0-5) /hpf Urine WBC (0-5) /hpf Crossmatch 04/14/25 04/14/25 04/15/25 Range/Units 20:01 20:36 06:14 RBC (4.10-5.20) 10*6/uL Hgb (12.0-15.0) g/dL Hct (37.2-46.3) % MCV (80.0-97.0) fL MCH (27.0-32.0) pg MCHC (32.0-37.0) g/dL RDW (11.5-14.5) % MPV (9.5-12.2) fL PT (10.0-12.5) sec INR (<1.2) Sodium (137-145) mmol/L BUN (7-17) mg/dL Creatinine (0.52-1.04) mg/dL Glucose (74-99) mg/dL POC Glucose (mg/dL) 136 H (70-110) mg/dL Plasma Lactic Acid Jose L 2.5 H* (0.7-2.0) mmol/L Calcium (8.4-10.2) mg/dL Total Protein (6.3-8.2) g/dL Albumin (3.5-5.0) g/dL Urine Appearance Bloody H (Clear) Urine RBC >182 H (0-5) /hpf Urine WBC >182 H (0-5) /hpf Crossmatch 04/15/25 04/15/25 04/15/25 Range/Units 10:06 10:06 10:45 RBC 2.74 L 2.54 L (4.10-5.20) 10*6/uL Hgb 6.9 L* 6.4 L* (12.0-15.0) g/dL Hct 22.0 L 20.7 L (37.2-46.3) % MCV (80.0-97.0) fL MCH 25.2 L 25.2 L (27.0-32.0) pg MCHC 31.4 L 30.9 L (32.0-37.0) g/dL RDW 19.9 H 19.8 H (11.5-14.5) % MPV 8.9 L (9.5-12.2) fL PT (10.0-12.5) sec INR (<1.2) Sodium (137-145) mmol/L BUN 21 H (7-17) mg/dL Creatinine 1.18 H (0.52-1.04) mg/dL Glucose 145 H (74-99) mg/dL POC Glucose (mg/dL) (70-110) mg/dL Plasma Lactic Acid Jose L (0.7-2.0) mmol/L Calcium 8.1 L (8.4-10.2) mg/dL Total Protein 5.4 L (6.3-8.2) g/dL Albumin 2.2 L (3.5-5.0) g/dL Urine Appearance (Clear) Urine RBC (0-5) /hpf Urine WBC (0-5) /hpf Crossmatch 04/15/25 04/15/25 Range/Units 10:45 11:24 RBC (4.10-5.20) 10*6/uL Hgb (12.0-15.0) g/dL Hct (37.2-46.3) % MCV (80.0-97.0) fL MCH (27.0-32.0) pg MCHC (32.0-37.0) g/dL RDW (11.5-14.5) % MPV (9.5-12.2) fL PT (10.0-12.5) sec INR (<1.2) Sodium (137-145) mmol/L BUN (7-17) mg/dL Creatinine (0.52-1.04) mg/dL Glucose (74-99) mg/dL POC Glucose (mg/dL) 219 H (70-110) mg/dL Plasma Lactic Acid Jose L (0.7-2.0) mmol/L Calcium (8.4-10.2) mg/dL Total Protein (6.3-8.2) g/dL Albumin (3.5-5.0) g/dL Urine Appearance (Clear) Urine RBC (0-5) /hpf Urine WBC (0-5) /hpf Crossmatch See Detail Diabetes panel 04/14/25 04/15/25 Range/Units 20:01 10:06 Sodium 135 L 137 (137-145) mmol/L Potassium 3.5 3.5 (3.5-5.1) mmol/L Chloride 103 105 (98-107) mmol/L Carbon Dioxide 23 23 (22-30) mmol/L BUN 20 H 21 H (7-17) mg/dL Creatinine 1.11 H 1.18 H (0.52-1.04) mg/dL Glucose 241 H 145 H (74-99) mg/dL Calcium 7.6 L 8.1 L (8.4-10.2) mg/dL AST 19 15 (14-36) U/L ALT 8 9 (4-34) U/L Alkaline Phosphatase 99 89 (38-126) U/L Total Protein 5.7 L 5.4 L (6.3-8.2) g/dL Albumin 2.4 L 2.2 L (3.5-5.0) g/dL Calcium panel 04/14/25 04/15/25 Range/Units 20:01 10:06 Calcium 7.6 L 8.1 L (8.4-10.2) mg/dL Albumin 2.4 L 2.2 L (3.5-5.0) g/dL Pituitary panel 04/14/25 04/15/25 Range/Units 20:01 10:06 Sodium 135 L 137 (137-145) mmol/L Potassium 3.5 3.5 (3.5-5.1) mmol/L Chloride 103 105 (98-107) mmol/L Carbon Dioxide 23 23 (22-30) mmol/L BUN 20 H 21 H (7-17) mg/dL Creatinine 1.11 H 1.18 H (0.52-1.04) mg/dL Glucose 241 H 145 H (74-99) mg/dL Calcium 7.6 L 8.1 L (8.4-10.2) mg/dL Adrenal panel 04/14/25 04/15/25 Range/Units 20:01 10:06 Sodium 135 L 137 (137-145) mmol/L Potassium 3.5 3.5 (3.5-5.1) mmol/L Chloride 103 105 (98-107) mmol/L Carbon Dioxide 23 23 (22-30) mmol/L BUN 20 H 21 H (7-17) mg/dL Creatinine 1.11 H 1.18 H (0.52-1.04) mg/dL Glucose 241 H 145 H (74-99) mg/dL Calcium 7.6 L 8.1 L (8.4-10.2) mg/dL Total Bilirubin 0.6 0.4 (0.2-1.3) mg/dL AST 19 15 (14-36) U/L ALT 8 9 (4-34) U/L Alkaline Phosphatase 99 89 (38-126) U/L Total Protein 5.7 L 5.4 L (6.3-8.2) g/dL Albumin 2.4 L 2.2 L (3.5-5.0) g/dL - Imaging CT scan - abdomen: report reviewed, image reviewed CT scan - pelvis: report reviewed, image reviewed Assessment and Plan Assessment: Impression: Infected left renal stones leading to recurrent uti and hematuria. Recommendations. She is on antibiotics. Pending the culture report as to what oral ab she will need. SHe should stay on ab until her surgery next week. I will obtain a kub to make sure that there are no ureteral stones that need attention to sooner
[2025-04-15 20:16] LABS: Glucose,Whole Blood 208 mg/dL (70-110)
[2025-04-15] MEDS: NYSTATIN 100,000UNIT/GM CREAM 30 GM TUBE TOPICAL SCH (21:05)
[2025-04-15 23:49] LABS: HCT 27.8 % (37.2-46.3); MCH 26.9 pg (27.0-32.0); MCHC 32.7 g/dL (32.0-37.0); MCV 82.2 fL (80.0-97.0); Platelet Count 250 10*3/uL (140-440); RBC 3.38 10*6/uL (4.10-5.20); RDW 17.7 % (11.5-14.5); WBC 5.75 10*3/uL (4.50-10.00)
[2025-04-16 00:05] LABS: HGB 9.1 g/dL (12.0-15.0)
[2025-04-16 05:46] LABS: HCT 27.9 % (37.2-46.3); HGB 9.1 g/dL (12.0-15.0); MCH 26.9 pg (27.0-32.0); MCHC 32.6 g/dL (32.0-37.0); MCV 82.5 fL (80.0-97.0); Platelet Count 246 10*3/uL (140-440); RBC 3.38 10*6/uL (4.10-5.20); RDW 17.9 % (11.5-14.5); WBC 5.44 10*3/uL (4.50-10.00)
[2025-04-16 06:15] LABS: Glucose,Whole Blood 84 mg/dL (70-110)
[2025-04-16 08:47] LABS: ALT 7 U/L (4-34); AST 14 U/L (14-36); African American GFR (CKD) 48 (>60 ml/min/1.73 sqM); Albumin 2.0 g/dL (3.5-5.0); Albumin/Globulin Ratio 0.6; Alkaline Phosphatase 91 U/L (38-126); Anion Gap 7 mmol/L; Blood Urea Nitrogen 19 mg/dL (7-17); Calcium 7.8 mg/dL (8.4-10.2); Carbon Dioxide 23 mmol/L (22-30); Chloride 110 mmol/L (98-107); Globulin 3.1 g/dL; Glucose 73 mg/dL (74-99); Non-African American GFR(CKD) 41 (>60 ml/min/1.73 sqM); Potassium 3.2 mmol/L (3.5-5.1); Sodium 140 mmol/L (137-145); Total Protein 5.1 g/dL (6.3-8.2)
--- NOTE | 2025-04-16 09:27 | P.PN ---
Progress Note - Text Progress Note Date: 04/16/25 The patient was seen in consultation yesterday for hematuria. She has bilateral renal stones. A KUB was obtained and she has bilateral ureteral stents. Other than antibiotics nothing further needs to be done. She has a percutaneous nephrostolithotomy on the left side scheduled by next week and this should go as scheduled unless something changes.
[2025-04-16] MEDS ORDERED: Potassium Replacement Protocol 1 EACH MISC MISCELLANE PRN (10:02)
[2025-04-16] MEDS: ZINC OXIDE PASTE (Z-GUARD) 1 APPLIC TOPICAL PRN (11:35)
[2025-04-16] MEDS: METOCLOPRAMIDE 5 MG TAB PEG/G-TUBE SCH (11:36)
[2025-04-16] MEDS: FERROUS SULFATE ORAL ELIXIR 300 MG/5 ML CUP PEG/G-TUBE SCH (11:36)
[2025-04-16] MEDS: INSULIN GLARGINE (LANTUS) 100 UNIT/ML SYR SQ SCH (11:37)
[2025-04-16] MEDS: LORATADINE 10 MG TAB PEG/G-TUBE SCH (11:37)
[2025-04-16] MEDS: FAMOTIDINE 20 MG TAB PEG/G-TUBE SCH (11:37)
[2025-04-16] MEDS: FUROSEMIDE 40 MG TAB PEG/G-TUBE SCH (11:37)
[2025-04-16] MEDS: ATORVASTATIN 40 MG TAB PEG/G-TUBE SCH (11:37)
[2025-04-16] MEDS: POTASSIUM CHLORIDE ER 10 MEQ TAB.ER.PRT PO SCH (11:37)
[2025-04-16 12:08] LABS: Glucose,Whole Blood 135 mg/dL (70-110)
[2025-04-16] MEDS: POTASSIUM CHLORIDE 10 MEQ in WATER FOR INJECTION 1 100ML.BAG IVPB SCH (12:33)
--- NOTE | 2025-04-16 15:17 | P.PN ---
Subjective Progress Note Date: 04/16/25 Chief Complaint: Hematuria History of present illness; 84 year old female with past medical history of atrial fibrillation, CVA/TIA w/ residual left sided hemiparesis, diabetes mellitus, hypertension, osteoarthritis, history of uterine cancer with incontinence of urine and recurrent urinary tract infections brought from [facility] to the ER due to hypotension 88/56 found this morning. Complaints of "vaginal bleeding", pt is a poor historian due to history of CVA and hemiparesis, can not recall home medication, or surgical history. History was taken from ER physician and previous documentation. In the ER pt was hypotensive to 88 systolic, laboratories were taken revealing massive hematuria, 182 RBC in urine, as well as numerous white blood cells. CBC revealed hemoglobin of 7.1. EKG revealed aFib with RVR consistent with previous admissions Pt was admitted to the medical team for evaluation of hematuria and anemia with consults to urology 04/16/2025: Patient seen and examined at bedside no complaints at this time, was seen by urology yesterday symptoms secondary to history of renal calculi EKG REVIEW OF SYSTEMS: As stated above in HPI. The rest of the 14-point review of systems is negative. PHYSICAL EXAMINATION: GENERAL: not in any acute distress. Well developed, well nourished. HEENT: Pupils are round and equally reacting to light. EOMI. No scleral icterus. No conjunctival pallor. Normocephalic, atraumatic. CARDIOVASCULAR: S1 and S2 present. No murmurs, rubs, or gallops. PULMONARY: Chest is clear to auscultation b/l, no wheezing or crackles. ABDOMEN: Soft, nontender, nondistended, normoactive bowel sounds. No palpable organomegaly. MUSCULOSKELETAL: No joint swelling or deformity. EXTREMITIES: No cyanosis, clubbing, or pedal edema. NEUROLOGICAL: Gross neurological examination did not reveal any focal deficits. SKIN: No rashes. : Quang blood at vaginal os source difficult to localize. Exam performed with dietary aid Assessment and Plan #UTI secondary to calculi #Hematuria secondary to above #Microcytic Anemia Secondary to above #Hypotension Secondary to Above -IV rocephen 1g Daily for 7 days. (Day 2 of 8) Pending sensitivities from urine culture for outpatient ABX -HBG stable to 9.1 -Monitor CBC daily -Transfuse if Hbg< 7 -Hold Asprin -Hold apixiban - Patient seen by urology yesterday, medically managed until procedure on 04/23 #Hypokalemia potassium repletion as needed Liquid potassium per PEG tube, DC oral switch to peg Chronic Conditions: #Chronic Constipation -Continue home medication #CAD #AFib #CHF -Hold until hypotension manage #T2DM -Sliding Scale DVT ppx: SCD GI ppx: Famotadine CODE STATUS: Full Dispo: Pending Clinical Course Objective - Vital Signs Vital signs: Vital Signs Temp 97.8 F 04/16/25 08:00 Pulse 89 04/16/25 08:00 Resp 17 04/16/25 08:00 BP 106/64 04/16/25 08:00 Pulse Ox 97 04/16/25 08:00 FiO2 Intake & Output 04/15/25 04/16/25 04/16/25 18:59 06:59 18:59 Intake Total 760 620 Balance 760 620 Intake: Oral 450 Blood Product 310 620 Rc As-1 Unit 310 [id number] Rc Pheresis 2 As3 Unit 0 310 [id number] Rc Pheresis 2 As3 Unit 310 [id number] Other: Voiding Method Diaper Diaper External Catheter External Catheter # Voids 1 5 - Labs CBC & Chem 7: 04/25/25 04:33 04/25/25 04:33 Labs: Abnormal Lab Results - Last 24 Hours (Table) 04/15/25 04/15/25 04/15/25 Range/Units 10:06 10:06 10:45 RBC 2.74 L 2.54 L (4.10-5.20) 10*6/uL Hgb 6.9 L* 6.4 L* (12.0-15.0) g/dL Hct 22.0 L 20.7 L (37.2-46.3) % MCH 25.2 L 25.2 L (27.0-32.0) pg MCHC 31.4 L 30.9 L (32.0-37.0) g/dL RDW 19.9 H 19.8 H (11.5-14.5) % MPV 8.9 L (9.5-12.2) fL Potassium (3.5-5.1) mmol/L Chloride (98-107) mmol/L BUN 21 H (7-17) mg/dL Creatinine 1.18 H (0.52-1.04) mg/dL Glucose 145 H (74-99) mg/dL POC Glucose (mg/dL) (70-110) mg/dL Calcium 8.1 L (8.4-10.2) mg/dL Total Protein 5.4 L (6.3-8.2) g/dL Albumin 2.2 L (3.5-5.0) g/dL Crossmatch 04/15/25 04/15/25 04/15/25 Range/Units 10:45 11:24 16:59 RBC (4.10-5.20) 10*6/uL Hgb (12.0-15.0) g/dL Hct (37.2-46.3) % MCH (27.0-32.0) pg MCHC (32.0-37.0) g/dL RDW (11.5-14.5) % MPV (9.5-12.2) fL Potassium (3.5-5.1) mmol/L Chloride (98-107) mmol/L BUN (7-17) mg/dL Creatinine (0.52-1.04) mg/dL Glucose (74-99) mg/dL POC Glucose (mg/dL) 219 H 195 H (70-110) mg/dL Calcium (8.4-10.2) mg/dL Total Protein (6.3-8.2) g/dL Albumin (3.5-5.0) g/dL Crossmatch See Detail 04/15/25 04/15/25 04/16/25 Range/Units 20:15 23:14 04:41 RBC 3.38 L 3.38 L (4.10-5.20) 10*6/uL Hgb 9.1 L D 9.1 L (12.0-15.0) g/dL Hct 27.8 L 27.9 L (37.2-46.3) % MCH 26.9 L 26.9 L (27.0-32.0) pg MCHC (32.0-37.0) g/dL RDW 17.7 H 17.9 H (11.5-14.5) % MPV 8.8 L 8.7 L (9.5-12.2) fL Potassium (3.5-5.1) mmol/L Chloride (98-107) mmol/L BUN (7-17) mg/dL Creatinine (0.52-1.04) mg/dL Glucose (74-99) mg/dL POC Glucose (mg/dL) 208 H (70-110) mg/dL Calcium (8.4-10.2) mg/dL Total Protein (6.3-8.2) g/dL Albumin (3.5-5.0) g/dL Crossmatch 04/16/25 Range/Units 07:46 RBC (4.10-5.20) 10*6/uL Hgb (12.0-15.0) g/dL Hct (37.2-46.3) % MCH (27.0-32.0) pg MCHC (32.0-37.0) g/dL RDW (11.5-14.5) % MPV (9.5-12.2) fL Potassium 3.2 L (3.5-5.1) mmol/L Chloride 110 H (98-107) mmol/L BUN 19 H (7-17) mg/dL Creatinine 1.22 H (0.52-1.04) mg/dL Glucose 73 L (74-99) mg/dL POC Glucose (mg/dL) (70-110) mg/dL Calcium 7.8 L (8.4-10.2) mg/dL Total Protein 5.1 L (6.3-8.2) g/dL Albumin 2.0 L (3.5-5.0) g/dL Crossmatch Assessment and Plan Assessment: Attestation Attestation/ Laundry Manager Note: Attestation to Progress Note, Participation (I saw and evaluated the patient with the Resident, and I reviewed and discussed the patient with the Resident and agree with the Resident's findings and plans as documented above., management reviewed and discussed), I agree with findings & plan, Provider Signature (NADIA AMADOR MD Time with Patient: Greater than 30
[2025-04-16 16:58] LABS: Glucose,Whole Blood 145 mg/dL (70-110)
[2025-04-16] MEDS: NYSTATIN 100,000 UNIT/GM POWD 15 GM TOPICAL SCH (20:42)
[2025-04-16 21:06] LABS: Glucose,Whole Blood 108 mg/dL (70-110)
[2025-04-17 06:20] LABS: Glucose,Whole Blood 80 mg/dL (70-110)
[2025-04-17 08:12] LABS: ALT 7 U/L (8-44); AST 15 U/L (13-35); Albumin 2.3 g/dL (3.8-4.9); Albumin/Globulin Ratio 0.85 Ratio (1.60-3.17); Alkaline Phosphatase 88 U/L (41-126); Anion Gap 7.20 mmol/L (4.00-12.00); BUN/Creat Ratio 13.00 Ratio (12.00-20.00); Blood Urea Nitrogen 15.6 mg/dL (9.0-27.0); Calcium 7.5 mg/dL (8.7-10.3); Carbon Dioxide 22.8 mmol/L (21.6-31.8); Chloride 109 mmol/L (96-109); Globulin 2.7 g/dL (1.6-3.3); Glucose 76 mg/dL (70-110); Magnesium 1.7 mg/dL (1.5-2.4); Potassium 3.1 mmol/L (3.5-5.5); Sodium 139 mmol/L (135-145); Total Protein 5.0 g/dL (6.2-8.2)
[2025-04-17] MEDS: POTASSIUM CHLORIDE 10 MEQ in WATER FOR INJECTION 1 100ML.BAG IVPB SCH (08:40)
[2025-04-17 08:45] LABS: Basophils # (A) 0.04 X 10*3/uL (0.00-0.10); Basophils % (A) 0.7 %; Eosinophils # (A) 0.18 X 10*3/uL (0.04-0.35); Eosinophils % (A) 3.1 %; HCT 27.2 % (37.2-46.3); HGB 8.4 g/dL (12.0-15.0); Immature Grans, Automated 0.20 %; Lymphocytes # (A) 1.16 X 10*3/uL (0.90-5.00); Lymphocytes % (A) 20.2 %; MCH 25.8 pg (27.0-32.0); MCHC 30.9 g/dL (32.0-37.0); MCV 83.7 FL (80.0-97.0); Monocytes # (A) 0.62 X 10*3/uL (0.20-1.00); Monocytes % (A) 10.8 %; NRBC Per 100 WBC 0 X 10*3/uL (0.00-0.01); Neutrophils # (A) 3.72 X 10*3/uL (1.80-7.70); Neutrophils % (A) 65.0 %; Platelet Count 252 X 10*3/uL (140-440); RBC 3.25 X 10*6/uL (4.10-5.20); RDW 18.9 % (11.5-14.5); WBC 5.73 X 10*3/uL (4.50-10.00)
--- NOTE | 2025-04-17 17:24 | P.PN ---
Subjective Progress Note Date: 04/17/25 Chief Complaint: Hematuria History of present illness; 84 year old female with past medical history of a trial fibrillation, CVA/TIA w/ residual left sided hemiparesis, diabetes mellitus, hypertension, osteoarthritis, history of uterine cancer with incontinence of urine and recurrent urinary tract infections brought from [facility] to the ER due to hypotension 88/56 found this morning. Complaints of "vaginal bleeding", pt is a poor historian due to history of CVA and hemiparesis, can not recall home medication, or surgical history. History was taken from ER physician and previous documentation. In the ER pt was hypotensive to 88 systolic, laboratories were taken revealing massive hematuria, 182 RBC in urine, as well as numerous white blood cells. CBC revealed hemoglobin of 7.1. EKG revealed aFib with RVR consistent with previous admissions Pt was admitted to the medical team for evaluation of hematuria and anemia with consults to urology 04/16/2025: Patient seen and examined at bedside no complaints at this time, was seen by urology yesterday symptoms secondary to history of renal calculi 04/17/2025: Patient seen and examined at bedside, no change in condition, no complaints EKG REVIEW OF SYSTEMS: As stated above in HPI. The rest of the 14-point review of systems is negative. PHYSICAL EXAMINATION: GENERAL: not in any acute distress. Well developed, well nourished. HEENT: Pupils are round and equally reacting to light. EOMI. No scleral icterus. No conjunctival pallor. Normocephalic, atraumatic. CARDIOVASCULAR: S1 and S2 present. No murmurs, rubs, or gallops. PULMONARY: Chest is clear to auscultation b/l, no wheezing or crackles. ABDOMEN: Soft, nontender, nondistended, normoactive bowel sounds. No palpable organomegaly. MUSCULOSKELETAL: No joint swelling or deformity. EXTREMITIES: No cyanosis, clubbing, or pedal edema. NEUROLOGICAL: Gross neurological examination did not reveal any focal deficits. SKIN: No rashes. : Quang blood at vaginal os source difficult to localize. Exam performed with bi tester Assessment and Plan #UTI secondary to calculi #Hematuria secondary to above #Microcytic Anemia Secondary to above #Hypotension Secondary to Above -IV rocephen 1g Daily for 7 days. (Day 3 of 8) Pending sensitivities from urine culture for outpatient ABX -HBG stable -Monitor CBC daily -Transfuse if Hbg< 7 -Hold Asprin -Hold apixiban - Patient seen by urology yesterday, medically managed until procedure on 04/23 -Pending sensitivities #Hypokalemia potassium repletion as needed Liquid potassium per PEG tube, DC oral switch to peg Chronic Conditions: #Chronic Constipation -Continue home medication #CAD #AFib #CHF -Hold until hypotension manage #T2DM -Sliding Scale DVT ppx: SCD GI ppx: Famotadine CODE STATUS: Full Dispo: Pending urine culture sensitivities Objective - Vital Signs Vital signs: Vital Signs Temp 98.5 F 04/17/25 07:18 Pulse 81 04/17/25 07:18 Resp 15 04/17/25 07:18 BP 113/58 04/17/25 07:18 Pulse Ox 93 L 04/17/25 07:18 FiO2 Intake & Output 04/16/25 04/17/25 04/17/25 18:59 06:59 18:59 Other: Voiding Method Diaper Diaper # Voids 2 4 # Bowel Movements 1 1 - Labs CBC & Chem 7: 04/25/25 04:33 04/25/25 04:33 Labs: Abnormal Lab Results - Last 24 Hours (Table) 04/16/25 04/16/25 04/16/25 Range/Units 07:46 12:05 16:55 Potassium 3.2 L (3.5-5.1) mmol/L Chloride 110 H (98-107) mmol/L BUN 19 H (7-17) mg/dL Creatinine 1.22 H (0.52-1.04) mg/dL Est GFR (CKD-EPI) (>=60) Glucose 73 L (74-99) mg/dL POC Glucose (mg/dL) 135 H 145 H (70-110) mg/dL Calcium 7.8 L (8.4-10.2) mg/dL ALT (8-44) U/L Total Protein 5.1 L (6.3-8.2) g/dL Albumin 2.0 L (3.5-5.0) g/dL Albumin/Globulin Ratio (1.60-3.17) Ratio 04/17/25 Range/Units 02:58 Potassium 3.1 L (3.5-5.1) mmol/L Chloride (98-107) mmol/L BUN (7-17) mg/dL Creatinine (0.52-1.04) mg/dL Est GFR (CKD-EPI) 45 L (>=60) Glucose (74-99) mg/dL POC Glucose (mg/dL) (70-110) mg/dL Calcium 7.5 L (8.4-10.2) mg/dL ALT 7 L (8-44) U/L Total Protein 5.0 L (6.3-8.2) g/dL Albumin 2.3 L (3.5-5.0) g/dL Albumin/Globulin Ratio 0.85 L (1.60-3.17) Ratio Microbiology - Last 24 Hours (Table) 04/14/25 20:36 Urine Culture - Preliminary Urine,Voided Assessment and Plan Assessment: Attestation Attestation/ Electroplating Technician Note: Attestation to Progress Note, Participation (I saw and evaluated the patient with the Resident, and I reviewed and discussed the patient with the Resident and agree with the Resident's findings and plans as documented above., management reviewed and discussed), I agree with findings & plan, Provider Signature (MARJORIE MALAVE, NADIA Jennings
--- NOTE | 2025-04-17 18:28 | CDI ---
Date: 04/17/2025 06:16:37 PM From: Valerie Breen RN CDIS Phone: [phone] Admit Date: 04/14/2025 08:49:00 PM Patient Name: Martín Alcaraz Visit Number: [id number] Discharge Date: ATTENTION: The Clinical Documentation Specialists (CDI) and [facility] Coding Staff appreciate your assistance in clarifying documentation. Please respond to the clarification below the line at the bottom and electronically sign. The CDI & [facility] Coding staff will review the response and follow-up if needed. Please note: Queries are made part of the Legal Health Record. If you have any questions, please contact the author of this message via ITS. Doctor Charlie Calix Coding guidelines do not allow coding professionals to assign diagnosis codes based on ancillary documentation without supportive documentation from a provider; therefore, clarification is requested. The curriculum and assessment director on 04/16 indicates this patient has a stage 1 pressure ulcer of the buttock. Based on this information and the findings below, is there an additional diagnosis that is clinically appropriate for this patient? History/Risk Factors: 84 year old female presents to the ED for hypotension and hematuria. Medical History: Renal stones, UTI, Hematuria, Chronic Constipation and T2DM. 04/16, Medicine Note. Clinical Indicators: Location: Buttock Wound description: Stage one Treatment: Nyastatin cream applied to buttocks, Absorbant underpad, Turn 2Q Is there an additional diagnosis that is clinically appropriate for this patient? [ x ] Stage 1 Pressure Ulcer [insert location] [ ] Other condition, please specify [ ] Unable to determine Clinical Definitions: Stage 1 Pressure Ulcer: intact skin, non-blanching redness of local area Stage 2 Pressure Ulcer: Partial thickness, loss of dermis, pink wound bed Stage 3 Pressure Ulcer: Full thickness tissue loss Stage 4 Pressure Ulcer: Full thickness tissue loss with exposed bone, tendon, or muscle. Unstageable pressure ulcer: Full thickness tissue loss in which the base of the ulcer is covered by slough (yellow, urbano, childers, green or brown) and/or eschar (urbano, brown or black) in the wound bed. (Template Last Revised: March 2025) MTDD
[2025-04-17 20:28] LABS: Glucose,Whole Blood 115 mg/dL (70-110)
[2025-04-18 06:30] LABS: Glucose,Whole Blood 83 mg/dL (70-110)
[2025-04-18 08:22] LABS: Basophils # (A) 0.05 10*3/uL (0.00-0.10); Basophils % (A) 1.0 %; Eosinophils # (A) 0.17 10*3/uL (0.04-0.35); Eosinophils % (A) 3.4 %; HCT 28.7 % (37.2-46.3); HGB 9.2 g/dL (12.0-15.0); Lymphocytes # (A) 1.00 10*3/uL (0.90-5.00); Lymphocytes % (A) 19.7 %; MCH 27.0 pg (27.0-32.0); MCHC 32.1 g/dL (32.0-37.0); MCV 84.2 fL (80.0-97.0); Monocytes # (A) 0.51 10*3/uL (0.20-1.00); Monocytes % (A) 10.1 %; Neutrophils # (A) 3.32 10*3/uL (1.80-7.70); Neutrophils % (A) 65.4 %; Platelet Count 243 10*3/uL (140-440); RBC 3.41 10*6/uL (4.10-5.20); RDW 18.9 % (11.5-14.5); WBC 5.07 10*3/uL (4.50-10.00)
[2025-04-18 08:41] LABS: ALT 7 U/L (4-34); AST 16 U/L (14-36); African American GFR (CKD) 47 (>60 ml/min/1.73 sqM); Albumin 2.0 g/dL (3.5-5.0); Albumin/Globulin Ratio 0.6; Alkaline Phosphatase 90 U/L (38-126); Anion Gap 7 mmol/L; Blood Urea Nitrogen 18 mg/dL (7-17); Calcium 7.9 mg/dL (8.4-10.2); Carbon Dioxide 25 mmol/L (22-30); Chloride 107 mmol/L (98-107); Globulin 3.1 g/dL; Glucose 70 mg/dL (74-99); Non-African American GFR(CKD) 41 (>60 ml/min/1.73 sqM); Potassium 3.0 mmol/L (3.5-5.1); Sodium 139 mmol/L (137-145); Total Protein 5.1 g/dL (6.3-8.2)
[2025-04-18 11:03] LABS: Glucose,Whole Blood 133 mg/dL (70-110)
[2025-04-18] MEDS ORDERED: POTASSIUM CHLORIDE 10 MEQ in WATER FOR INJECTION 1 100ML.BAG IVPB SCH (14:00)
[2025-04-18] MEDS: POTASSIUM BICARBONATE/CIT AC 20 MEQ TABLET.EFF PO ONE ×2 (14:16→21:07)
--- NOTE | 2025-04-18 15:15 | P.PN ---
Subjective Progress Note Date: 04/18/25 Chief Complaint: Hematuria History of present illness; 84 year old female with past medical history of atrial fibrillation, CVA/TIA w/ residual left sided hemiparesis, diabetes mellitus, hypertension, osteoarthritis, history of uterine cancer with incontinence of urine and recurrent urinary tract infections brought from [facility] to the ER due to hypotension 88/56 found this morning. Complaints of "vaginal bleeding", pt is a poor historian due to history of CVA and hemiparesis, can not recall home medication, or surgical history. History was taken from ER physician and previous documentation. In the ER pt was hypotensive to 88 systolic, laboratories were taken revealing massive hematuria, 182 RBC in urine, as well as numerous white blood cells. CBC revealed hemoglobin of 7.1. EKG revealed aFib with RVR consistent with previous admissions Pt was admitted to the medical team for evaluation of hematuria and anemia with consults to urology 04/16/2025: Patient seen and examined at bedside no complaints at this time, was seen by urology yesterday symptoms secondary to history of renal calculi 04/17/2025: Patient seen and examined at bedside, no change in condition, no complaints 04/18/2025: Patient seen and examined at bedside complains that IV is on her functional arm otherwise no complaints EKG REVIEW OF SYSTEMS: As stated above in HPI. The rest of the 14-point review of systems is negative. PHYSICAL EXAMINATION: GENERAL: not in any acute distress. Well developed, well nourished. HEENT: Pupils are round and equally reacting to light. EOMI. No scleral icterus. No conjunctival pallor. Normocephalic, atraumatic. CARDIOVASCULAR: S1 and S2 present. No murmurs, rubs, or gallops. PULMONARY: Chest is clear to auscultation b/l, no wheezing or crackles. ABDOMEN: Soft, nontender, nondistended, normoactive bowel sounds. No palpable organomegaly. MUSCULOSKELETAL: No joint swelling or deformity. EXTREMITIES: No cyanosis, clubbing, or pedal edema. NEUROLOGICAL: Gross neurological examination did not reveal any focal deficits. SKIN: No rashes. : Quang blood at vaginal os source difficult to localize. Exam performed with canopy inspector Assessment and Plan #UTI secondary to calculi #Hematuria secondary to above #Microcytic Anemia Secondary to above #Hypotension Secondary to Above -IV rocephen 1g Daily for 7 days. (Day 3 of 8) Pending sensitivities from urine culture for outpatient ABX -HBG stable -Monitor CBC daily -Transfuse if Hbg< 7 -Hold Asprin -Hold apixiban - Patient seen by urology yesterday, medically managed until procedure on 04/23 - Consulted ID for p.o. antibiotics as cultures are negative #Hypokalemia potassium repletion as needed Liquid potassium per PEG tube, DC oral switch to peg Chronic Conditions: #Chronic Constipation -Continue home medication #CAD #AFib #CHF -Hold until hypotension manage #T2DM -Sliding Scale DVT ppx: SCD GI ppx: Famotadine CODE STATUS: Full Dispo: Ending p.o. ABX recommendation Objective - Vital Signs Vital signs: Vital Signs Temp 98.0 F 04/18/25 13:56 Pulse 88 04/18/25 13:56 Resp 17 04/18/25 13:56 BP 116/62 04/18/25 13:56 Pulse Ox 97 04/18/25 13:56 FiO2 Intake & Output 04/17/25 04/18/25 04/18/25 18:59 06:59 18:59 Output Total 1000 1000 Balance -1000 -1000 Output: Urine 1000 1000 Other: Voiding Method Diaper Diaper Diaper External Catheter External Catheter # Voids 2 # Bowel Movements 1 - Labs CBC & Chem 7: 04/25/25 04:33 04/25/25 04:33 Labs: Abnormal Lab Results - Last 24 Hours (Table) 04/17/25 04/18/25 04/18/25 Range/Units 20:26 07:46 07:46 RBC 3.41 L (4.10-5.20) 10*6/uL Hgb 9.2 L (12.0-15.0) g/dL Hct 28.7 L (37.2-46.3) % RDW 18.9 H (11.5-14.5) % MPV 8.7 L (9.5-12.2) fL Potassium 3.0 L (3.5-5.1) mmol/L BUN 18 H (7-17) mg/dL Creatinine 1.23 H (0.52-1.04) mg/dL Glucose 70 L (74-99) mg/dL POC Glucose (mg/dL) 115 H (70-110) mg/dL Calcium 7.9 L (8.4-10.2) mg/dL Total Protein 5.1 L (6.3-8.2) g/dL Albumin 2.0 L (3.5-5.0) g/dL 04/18/25 Range/Units 11:02 RBC (4.10-5.20) 10*6/uL Hgb (12.0-15.0) g/dL Hct (37.2-46.3) % RDW (11.5-14.5) % MPV (9.5-12.2) fL Potassium (3.5-5.1) mmol/L BUN (7-17) mg/dL Creatinine (0.52-1.04) mg/dL Glucose (74-99) mg/dL POC Glucose (mg/dL) 133 H (70-110) mg/dL Calcium (8.4-10.2) mg/dL Total Protein (6.3-8.2) g/dL Albumin (3.5-5.0) g/dL Microbiology - Last 24 Hours (Table) 04/14/25 20:36 Urine Culture - Final Urine,Voided Assessment and Plan Assessment: Attestation Attestation/ Freight Associate Note: Attestation to Progress Note, Participation (I saw and evaluated the patient with the Resident, and I reviewed and discussed the patient with the Resident and agree with the Resident's findings and plans as documented above., management reviewed and discussed), I agree with findings & plan, Provider Signature (MARJORIE MALAVE, NADIA Jennings Time with Patient: Greater than 30
[2025-04-18 16:44] LABS: Glucose,Whole Blood 128 mg/dL (70-110)
[2025-04-18 20:11] LABS: Glucose,Whole Blood 113 mg/dL (70-110)
--- NOTE | 2025-04-18 22:33 | P.CONS ---
History of Present Illness - Reason for Consult Consult date: 04/18/25 Infected renal calculi Requesting physician: Chito Pino - Chief Complaint Blood in the urine x few days - History of Present Illness Patient is a 84-year-old female with a past medical history significant for Atrial Fibrillation, CVA/TIA, Diabetes Mellitus, Hypertension, Osteoarthritis (OA), presenting to the hospital 4 days ago for evaluation of hematuria that the pain was noticed the day of presentation to the hospital patient also noted to have a hypotension with a blood pressure of 88/56 the patient was brought to the hospital for further evaluation on presentation to this facility patient was afebrile and no fever have recorded subsequently p atient was not tachycardic hypotensive or hypoxic and no need for supplemental oxygen patient did have a white count of 6.4 repeat is 5.07 BUN and creatinine mildly elevated liver enzymes are normal UA was bloody with more than 182 WBC and RBC culture subsequently has been negative patient did have a KUB x-ray moderate fecal retention bilateral ureteral stents patient has been evaluated by urology mention no further neurological workup infectious disease was consulted today regarding infected renal calculi most information has been obtained from review of the chart and the patient has elevated good historian Review of Systems Positive points has been mentioned in HPI complete review could not be obtained because of his underlying mental status 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 Year Discovered:: 02/22/25 MDRO Source:: urine Past Surgical History: No Surgical Hx Reported Additional Past Surgical History / Comment(s): cataract & carpal-tunnel bilat, bilat ureteral stent insertion February 2025 Past Anesthesia/Blood Transfusion Reactions: No Reported Reaction Past Psychological History: No Psychological Hx Reported Smoking Status: Never smoker Past Alcohol Use History: None Reported Past Drug Use History: None Reported - Past Family History Mother Family Medical History: Coronary Artery Disease (CAD), Diabetes Mellitus, Hypertension, Mitral Valve Prolapse (MVP) Father Family Medical History: Hypertension Additional Family Medical History / Comment(s): father hip surgery Medications and Allergies Home Medications Medication Instructions Recorded Confirmed Type Atorvastatin [Lipitor] 40 mg PEG/G-TUBE DAILY 06/19/24 04/15/25 History Famotidine [Pepcid] 20 mg PEG/G-TUBE DAILY 06/19/24 04/15/25 History Magnesium Hydroxide [Milk of 7,200 mg PEG/G-TUBE DAILY PRN 06/19/24 04/15/25 History Magnesia Concentrate] Na Phos,M-B/Na Phos,Di-Ba [Fleet 133 ml RECTAL DAILY PRN 06/19/24 04/15/25 History Adult] Saliva Stimulant Comb. No.3 1 tsp MUCOUS MEM Q12H PRN 06/19/24 04/15/25 History [Biotene Moisturizing Mouth] bisacodyL [Dulcolax] 10 mg RECTAL DAILY PRN 06/19/24 04/15/25 History Acetaminophen Tab [Tylenol] 500 mg PEG/G-TUBE Q6HR PRN 07/27/24 04/15/25 History INSULIN LISPRO (humaLOG) [humaLOG] See Protocol SQ ACHS 07/27/24 04/15/25 History Apixaban [Eliquis] 2.5 mg PEG/G-TUBE BID 10/11/24 04/15/25 History Ferrous Sulfate Oral Elixir 450 mg PEG/G-TUBE DAILY 10/11/24 04/15/25 History [Feosol Liquid] Ipratropium-Albuterol Nebulize 3 ml INHALATION RT-TID PRN 10/11/24 04/15/25 History [Duoneb 0.5 mg-3 mg/3 ml Soln] Lactulose [Cephulac] 30 gm PEG/G-TUBE DAILY 10/11/24 04/15/25 History Metoclopramide [Reglan] 5 mg PEG/G-TUBE DAILY 10/11/24 04/15/25 History Simethicone 40 mg/0.6 ml Drops 40 mg PEG/G-TUBE QID 10/11/24 04/15/25 History [Mylicon Drops] guaiFENesin [guaiFENesin ER] 600 mg PEG/G-TUBE Q12H PRN 10/11/24 04/15/25 History Insulin Glargine,Hum.rec.anlog 5 units SQ DAILY 02/22/25 04/15/25 History [Lantus Solostar Pen] Lactulose [Constulose] 30 gm PEG/G-TUBE Q12H PRN 02/22/25 04/15/25 History Loperamide [Imodium] 4 mg PEG/G-TUBE QID PRN 02/22/25 04/15/25 History Furosemide [Lasix] 40 mg PEG/G-TUBE DAILY #0 02/28/25 04/15/25 Rx Potassium Chloride ER [K-Dur 10] 10 meq PO DAILY tab 02/28/25 04/15/25 Rx Cetirizine HCl [Zyrtec] 10 mg PEG/G-TUBE DAILY 04/15/25 04/15/25 History Nystatin 100,000Unit/gm Cream 1 applic TOPICAL BID 04/15/25 04/15/25 History [Mycostatin Cream] carvediloL [Coreg*] 25 mg PEG/G-TUBE BID-W/MEALS 04/15/25 04/15/25 History Allergies Allergy/AdvReac Type Severity Reaction Status Date / Time bacitracin Allergy Rash/Hives Verified 04/15/25 09:01 [From Neosporin ([id number])] ibuprofen Allergy Anaphylaxis Verified 04/15/25 09:01 & Rash all over neomycin Allergy Rash/Hives Verified 04/15/25 09:01 [From Neosporin ([id number])] polymyxin B Allergy Rash/Hives Verified 04/15/25 09:01 [From Neosporin ([id number])] Physical Exam Vitals: Vital Signs Temp Pulse Pulse Resp BP Pulse Ox 04/18/25 08:00 82 78 14 04/18/25 07:41 97.8 F 82 14 120/67 93 L 04/18/25 01:39 98.1 F 78 19 144/74 100 04/17/25 19:35 98.6 F 83 18 116/59 98 04/17/25 17:48 86 119/66 04/17/25 13:38 97.9 F 85 16 94/61 96 Intake and Output 04/17/25 04/18/25 04/18/25 22:59 06:59 14:59 Output Total 1000 1000 Balance -1000 -1000 Output: Urine 1000 1000 Other: Voiding Method Diaper Diaper External Catheter External Catheter # Voids 2 # Bowel Movements 1 GENERAL DESCRIPTION: Elderly female lying in bed, no distress. No tachypnea or accessory muscle of respiration use. HEENT: Shows Pallor , no scleral icterus. Oral mucous membrane is dry. NECK: Trachea central, no thyromegaly. LUNGS: Unlabored breathing. Clear to auscultation anteriorly. No wheeze or crackle. HEART: S1, S2, regular rate and rhythm. No loud murmur ABDOMEN: Soft, no tenderness , guarding or rigidity, no organomegaly EXTREMITIES: No edema of feet. SKIN: No rash, no masses palpable. NEUROLOGICAL: The patient is awake, mood and affect normal. Results CBC & Chem 7: 04/19/25 04:25 04/19/25 04:25 Labs: Abnormal Lab Results - Last 24 Hours (Table) 04/17/25 04/18/25 04/18/25 Range/Units 20:26 07:46 07:46 RBC 3.41 L (4.10-5.20) 10*6/uL Hgb 9.2 L (12.0-15.0) g/dL Hct 28.7 L (37.2-46.3) % RDW 18.9 H (11.5-14.5) % MPV 8.7 L (9.5-12.2) fL Potassium 3.0 L (3.5-5.1) mmol/L BUN 18 H (7-17) mg/dL Creatinine 1.23 H (0.52-1.04) mg/dL Glucose 70 L (74-99) mg/dL POC Glucose (mg/dL) 115 H (70-110) mg/dL Calcium 7.9 L (8.4-10.2) mg/dL Total Protein 5.1 L (6.3-8.2) g/dL Albumin 2.0 L (3.5-5.0) g/dL 04/18/25 Range/Units 11:02 RBC (4.10-5.20) 10*6/uL Hgb (12.0-15.0) g/dL Hct (37.2-46.3) % RDW (11.5-14.5) % MPV (9.5-12.2) fL Potassium (3.5-5.1) mmol/L BUN (7-17) mg/dL Creatinine (0.52-1.04) mg/dL Glucose (74-99) mg/dL POC Glucose (mg/dL) 133 H (70-110) mg/dL Calcium (8.4-10.2) mg/dL Total Protein (6.3-8.2) g/dL Albumin (3.5-5.0) g/dL Microbiology - Last 24 Hours (Table) 04/14/25 20:36 Urine Culture - Final Urine,Voided Assessment and Plan (1) UTI (urinary tract infection) Current Visit: No Status: Acute Code(s): N39.0 - URINARY TRACT INFECTION, SITE NOT SPECIFIED SNOMED Code(s): 68994836 Plan: 1patient presented to hospital with hematuria in this patient who did have a history of bilateral renal stone with bilateral renal stent in this patient did not have significant fever or elevated white count and initial urine culture was reported to be negative, patient did have a KUB x-ray was indicating adequate positioning of those kidney stone 2-we will repeat a UA and a culture 3-for now continue with Rocephin as so far no resistant coagulum has been grown We will follow on clinical condition and cultures to further adjust medication if needed Thank you for this consultation we will follow the patient along with you Dictation was produced using [employer] dictation software. please excuse any grammatical, word or spelling errors. Time with Patient: Greater than 30
[2025-04-19 03:32] LABS: Amorphous Sediment,Urine Occasional /hpf; Bacteria,Urine Moderate /hpf; Bilirubin,Urine Negative (Negative); Blood,Urine Moderate (Negative); Color,Urine Colorless; Glucose,Urine (UA) Negative (Negative); Ketones,Urine Negative (Negative); Leukocyte Esterase,Urine Large (Negative); Nitrite,Urine Positive (Negative); PH, Urine 6.5 (5.0-8.0); Protein,Urine Negative (Negative); RBC,Urine 11 /hpf (0-5); Specific Gravity,Urine 1.009 (1.001-1.035); Squamous Epithelial Cell,Urine <1 /hpf (0-4); Urobilinogen,Urine <2.0 mg/dL (<2.0); WBC,Urine 100 /hpf (0-5)
[2025-04-19 06:18] LABS: Glucose,Whole Blood 89 mg/dL (70-110)
[2025-04-19 07:49] LABS: Basophils # (A) 0.04 X 10*3/uL (0.00-0.10); Basophils % (A) 0.8 %; Eosinophils # (A) 0.19 X 10*3/uL (0.04-0.35); Eosinophils % (A) 3.7 %; HCT 29.8 % (37.2-46.3); HGB 9.4 g/dL (12.0-15.0); Immature Grans, Automated 0.40 %; Lymphocytes # (A) 1.12 X 10*3/uL (0.90-5.00); Lymphocytes % (A) 21.9 %; MCH 27.1 pg (27.0-32.0); MCHC 31.5 g/dL (32.0-37.0); MCV 85.9 FL (80.0-97.0); Monocytes # (A) 0.55 X 10*3/uL (0.20-1.00); Monocytes % (A) 10.8 %; NRBC Per 100 WBC 0 X 10*3/uL (0.00-0.01); Neutrophils # (A) 3.19 X 10*3/uL (1.80-7.70); Neutrophils % (A) 62.4 %; Platelet Count 248 X 10*3/uL (140-440); RBC 3.47 X 10*6/uL (4.10-5.20); RDW 19.4 % (11.5-14.5); WBC 5.11 X 10*3/uL (4.50-10.00)
[2025-04-19 08:21] LABS: ALT 7 U/L (8-44); AST 15 U/L (13-35); Albumin 2.3 g/dL (3.8-4.9); Albumin/Globulin Ratio 0.77 Ratio (1.60-3.17); Alkaline Phosphatase 85 U/L (41-126); Anion Gap 8.80 mmol/L (4.00-12.00); BUN/Creat Ratio 13.91 Ratio (12.00-20.00); Blood Urea Nitrogen 15.3 mg/dL (9.0-27.0); Calcium 7.7 mg/dL (8.7-10.3); Carbon Dioxide 25.2 mmol/L (21.6-31.8); Chloride 108 mmol/L (96-109); Globulin 3.0 g/dL (1.6-3.3); Glucose 76 mg/dL (70-110); Potassium 3.4 mmol/L (3.5-5.5); Sodium 142 mmol/L (135-145); Total Protein 5.3 g/dL (6.2-8.2)
[2025-04-19 11:36] LABS: Glucose,Whole Blood 99 mg/dL (70-110)
--- NOTE | 2025-04-19 14:37 | P.PN ---
Subjective Progress Note Date: 04/19/25 Chief Complaint: Hematuria History of present illness; 84 year old female with past medical history of a trial fibrillation, CVA/TIA w/ residual left sided hemiparesis, diabetes mellitus, hypertension, osteoarthritis, history of uterine cancer with incontinence of urine and recurrent urinary tract infections brought from [facility] to the ER due to hypotension 88/56 found this morning. Complaints of "vaginal bleeding", pt is a poor historian due to history of CVA and hemiparesis, can not recall home medication, or surgical history. History was taken from ER physician and previous documentation. In the ER pt was hypotensive to 88 systolic, laboratories were taken revealing massive hematuria, 182 RBC in urine, as well as numerous white blood cells. CBC revealed hemoglobin of 7.1. EKG revealed aFib with RVR consistent with previous admissions Pt was admitted to the medical team for evaluation of hematuria and anemia with consults to urology 04/16/2025: Patient seen and examined at bedside no complaints at this time, was seen by urology yesterday symptoms secondary to history of renal calculi 04/17/2025: Patient seen and examined at bedside, no change in condition, no complaints 04/18/2025: Patient seen and examined at bedside complains that IV is on her functional arm otherwise no complaints 04/19/2025: Patient seen and examined at bedside no complaints at this time EKG REVIEW OF SYSTEMS: As stated above in HPI. The rest of the 14-point review of systems is negative. PHYSICAL EXAMINATION: GENERAL: not in any acute distress. Well developed, well nourished. HEENT: Pupils are round and equally reacting to light. EOMI. No scleral icterus. No conjunctival pallor. Normocephalic, atraumatic. CARDIOVASCULAR: S1 and S2 present. No murmurs, rubs, or gallops. PULMONARY: Chest is clear to auscultation b/l, no wheezing or crackles. ABDOMEN: Soft, nontender, nondistended, normoactive bowel sounds. No palpable organomegaly. MUSCULOSKELETAL: No joint swelling or deformity. EXTREMITIES: No cyanosis, clubbing, or pedal edema. NEUROLOGICAL: Gross neurological examination did not reveal any focal deficits. SKIN: No rashes. : Quang blood at vaginal os source difficult to localize. Exam performed with packer and carry out Assessment and Plan #UTI secondary to calculi #Hematuria secondary to above #Microcytic Anemia Secondary to above #Hypotension Secondary to Above -IV rocephen 1g Daily for 7 days. (Day 5 of 8) Pending sensitivities from urine culture for outpatient ABX -HBG stable -Monitor CBC daily -Transfuse if Hbg< 7 -Hold Asprin -Hold apixiban - Patient seen by urology yesterday, medically managed until procedure on 04/23 - Consulted ID for p.o. antibiotics as cultures are negative Repeat UA and culture, continue Rocephin #Hypokalemia potassium repletion as needed Liquid potassium per PEG tube, DC oral switch to peg Chronic Conditions: #Chronic Constipation -Continue home medication #CAD #AFib #CHF -Hold until hypotension manage #T2DM -Sliding Scale DVT ppx: SCD GI ppx: Famotadine CODE STATUS: Full Dispo: Ending p.o. ABX recommendation Objective - Vital Signs Vital signs: Vital Signs Temp 98 F 04/19/25 06:51 Pulse 73 04/19/25 06:51 Resp 18 04/19/25 06:51 BP 129/72 04/19/25 06:51 Pulse Ox 98 04/19/25 06:51 FiO2 Intake & Output 04/18/25 04/19/25 04/19/25 18:59 06:59 18:59 Other: Voiding Method Diaper Diaper External Catheter # Voids 2 5 # Bowel Movements 2 2 - Labs CBC & Chem 7: 04/25/25 04:33 04/25/25 04:33 Labs: Abnormal Lab Results - Last 24 Hours (Table) 04/18/25 04/18/25 04/18/25 Range/Units 07:46 07:46 11:02 RBC 3.41 L (4.10-5.20) 10*6/uL Hgb 9.2 L (12.0-15.0) g/dL Hct 28.7 L (37.2-46.3) % MCHC (32.0-37.0) g/dL RDW 18.9 H (11.5-14.5) % MPV 8.7 L (9.5-12.2) fL Potassium 3.0 L (3.5-5.1) mmol/L BUN 18 H (7-17) mg/dL Creatinine 1.23 H (0.52-1.04) mg/dL Glucose 70 L (74-99) mg/dL POC Glucose (mg/dL) 133 H (70-110) mg/dL Calcium 7.9 L (8.4-10.2) mg/dL Total Protein 5.1 L (6.3-8.2) g/dL Albumin 2.0 L (3.5-5.0) g/dL Urine Appearance (Clear) Urine Blood (Negative) Urine Nitrite (Negative) Ur Leukocyte Esterase (Negative) Urine RBC (0-5) /hpf Urine WBC (0-5) /hpf Amorphous Sediment (None) /hpf Urine Bacteria (None) /hpf 04/18/25 04/18/25 04/18/25 Range/Units 16:43 19:11 20:10 RBC (4.10-5.20) 10*6/uL Hgb (12.0-15.0) g/dL Hct (37.2-46.3) % MCHC (32.0-37.0) g/dL RDW (11.5-14.5) % MPV (9.5-12.2) fL Potassium 3.3 L (3.5-5.1) mmol/L BUN (7-17) mg/dL Creatinine (0.52-1.04) mg/dL Glucose (74-99) mg/dL POC Glucose (mg/dL) 128 H 113 H (70-110) mg/dL Calcium (8.4-10.2) mg/dL Total Protein (6.3-8.2) g/dL Albumin (3.5-5.0) g/dL Urine Appearance (Clear) Urine Blood (Negative) Urine Nitrite (Negative) Ur Leukocyte Esterase (Negative) Urine RBC (0-5) /hpf Urine WBC (0-5) /hpf Amorphous Sediment (None) /hpf Urine Bacteria (None) /hpf 04/19/25 04/19/25 Range/Units 00:38 04:25 RBC 3.47 L (4.10-5.20) 10*6/uL Hgb 9.4 L (12.0-15.0) g/dL Hct 29.8 L (37.2-46.3) % MCHC 31.5 L (32.0-37.0) g/dL RDW 19.4 H (11.5-14.5) % MPV 8.9 L (9.5-12.2) fL Potassium (3.5-5.1) mmol/L BUN (7-17) mg/dL Creatinine (0.52-1.04) mg/dL Glucose (74-99) mg/dL POC Glucose (mg/dL) (70-110) mg/dL Calcium (8.4-10.2) mg/dL Total Protein (6.3-8.2) g/dL Albumin (3.5-5.0) g/dL Urine Appearance Cloudy H (Clear) Urine Blood Moderate H (Negative) Urine Nitrite Positive H (Negative) Ur Leukocyte Esterase Large H (Negative) Urine RBC 11 H (0-5) /hpf Urine WBC 100 H (0-5) /hpf Amorphous Sediment Occasional H (None) /hpf Urine Bacteria Moderate H (None) /hpf Assessment and Plan Assessment: Attestation Attestation/ Associate Professor Of History Note: Attestation to Progress Note, Participation (I saw and evaluated the patient with the Resident, and I reviewed and discussed the patient with the Resident and agree with the Resident's findings and plans as documented above., management reviewed and discussed), I agree with findings & plan, Provider Signature (MARJORIE MALAVE, NADIA Jennings
[2025-04-19] MEDS: POTASSIUM BICARBONATE/CIT AC 20 MEQ TABLET.EFF PO ONE (15:04)
[2025-04-19 15:17] VITALS: BMI 25.3
--- NOTE | 2025-04-19 15:41 | P.PN ---
Subjective Progress Note Date: 04/19/25 Principal diagnosis: Reason for follow-up is UTI Patient is a 84-year-old female with a past medical history significant for Atrial Fibrillation, CVA/TIA, Diabetes Mellitus, Hypertension, Osteoarthritis (OA), presenting to the hospital for evaluation of hematuria and hypotension concern for possible infected stone though initial urine culture negative. On today's evaluation that is 04/19/2025, the patient continues to be afebrile, the patient is on room air and breathing comfortably, the Pt denies having any chest pain or cough, the patient denies having any abdominal pain no vomiting or any diarrhea has been reported by the nursing staff. Patient white count is 5.11 creatinine is 1.1 repeat UA is positive with blood cultures pending Objective - Vital Signs Vital signs: Vital Signs Temp 98 F 04/19/25 14:02 Pulse 88 04/19/25 14:02 Resp 18 04/19/25 14:02 BP 109/63 04/19/25 14:02 Pulse Ox 99 04/19/25 14:02 FiO2 Intake & Output 04/18/25 04/19/25 04/19/25 18:59 06:59 18:59 Weight 62.823 kg Other: Voiding Method Diaper Diaper Diaper External Catheter # Voids 2 5 # Bowel Movements 2 2 - Exam GENERAL DESCRIPTION: An elderly female lying in bed in no distress RESPIRATORY SYSTEM: Unlabored breathing , decreased breath sounds at bases HEART: S1 S2 regular rate and rhythm , ABDOMEN: Soft , no tenderness EXTREMITIES: No edema feet - Labs CBC & Chem 7: 04/19/25 04:25 04/19/25 04:25 Labs: Abnormal Lab Results - Last 24 Hours (Table) 04/18/25 04/18/25 04/18/25 Range/Units 16:43 19:11 20:10 RBC (4.10-5.20) X 10*6/uL Hgb (12.0-15.0) g/dL Hct (37.2-46.3) % MCHC (32.0-37.0) g/dL RDW (11.5-14.5) % MPV (9.5-12.2) FL Potassium 3.3 L (3.5-5.1) mmol/L Est GFR (CKD-EPI) (>=60) POC Glucose (mg/dL) 128 H 113 H (70-110) mg/dL Calcium (8.7-10.3) mg/dL ALT (8-44) U/L Total Protein (6.2-8.2) g/dL Albumin (3.8-4.9) g/dL Albumin/Globulin Ratio (1.60-3.17) Ratio Urine Appearance (Clear) Urine Blood (Negative) Urine Nitrite (Negative) Ur Leukocyte Esterase (Negative) Urine RBC (0-5) /hpf Urine WBC (0-5) /hpf Amorphous Sediment (None) /hpf Urine Bacteria (None) /hpf 04/19/25 04/19/25 04/19/25 Range/Units 00:38 04:25 04:25 RBC 3.47 L (4.10-5.20) X 10*6/uL Hgb 9.4 L (12.0-15.0) g/dL Hct 29.8 L (37.2-46.3) % MCHC 31.5 L (32.0-37.0) g/dL RDW 19.4 H (11.5-14.5) % MPV 8.9 L (9.5-12.2) FL Potassium 3.4 L (3.5-5.1) mmol/L Est GFR (CKD-EPI) 50 L (>=60) POC Glucose (mg/dL) (70-110) mg/dL Calcium 7.7 L (8.7-10.3) mg/dL ALT 7 L (8-44) U/L Total Protein 5.3 L (6.2-8.2) g/dL Albumin 2.3 L (3.8-4.9) g/dL Albumin/Globulin Ratio 0.77 L (1.60-3.17) Ratio Urine Appearance Cloudy H (Clear) Urine Blood Moderate H (Negative) Urine Nitrite Positive H (Negative) Ur Leukocyte Esterase Large H (Negative) Urine RBC 11 H (0-5) /hpf Urine WBC 100 H (0-5) /hpf Amorphous Sediment Occasional H (None) /hpf Urine Bacteria Moderate H (None) /hpf Assessment and Plan (1) UTI (urinary tract infection) Current Visit: No Status: Acute Code(s): N39.0 - URINARY TRACT INFECTION, SITE NOT SPECIFIED SNOMED Code(s): 74260231 Plan: 1patient presented to hospital with hematuria in this patient who did have a history of bilateral renal stone with bilateral renal stent in this patient did not have significant fever or elevated white count and initial urine culture was reported to be negative, patient did have a KUB x-ray was indicating adequate positioning of those kidney stone 2-repeat UA is significantly positive cultures are pending we will treat with Rocephin while waiting for the culture to finalize Dictation was produced using [employer] dictation software. please excuse any grammatical, word or spelling errors.
[2025-04-19 16:57] LABS: Glucose,Whole Blood 125 mg/dL (70-110)
[2025-04-19 21:59] LABS: Glucose,Whole Blood 151 mg/dL (70-110)
[2025-04-20 06:38] LABS: Glucose,Whole Blood 81 mg/dL (70-110)
[2025-04-20 09:58] LABS: Basophils # (A) 0.04 X 10*3/uL (0.00-0.10); Basophils % (A) 0.8 %; Eosinophils # (A) 0.25 X 10*3/uL (0.04-0.35); Eosinophils % (A) 4.7 %; HCT 29.9 % (37.2-46.3); HGB 9.1 g/dL (12.0-15.0); Immature Grans, Automated 0.20 %; Lymphocytes # (A) 1.13 X 10*3/uL (0.90-5.00); Lymphocytes % (A) 21.3 %; MCH 26.2 pg (27.0-32.0); MCHC 30.4 g/dL (32.0-37.0); MCV 86.2 FL (80.0-97.0); Monocytes # (A) 0.56 X 10*3/uL (0.20-1.00); Monocytes % (A) 10.6 %; NRBC Per 100 WBC 0 X 10*3/uL (0.00-0.01); Neutrophils # (A) 3.31 X 10*3/uL (1.80-7.70); Neutrophils % (A) 62.4 %; Platelet Count 234 X 10*3/uL (140-440); RBC 3.47 X 10*6/uL (4.10-5.20); RDW 19.5 % (11.5-14.5); WBC 5.30 X 10*3/uL (4.50-10.00)
[2025-04-20 10:41] LABS: ALT 7 U/L (8-44); AST 15 U/L (13-35); Albumin 2.4 g/dL (3.8-4.9); Albumin/Globulin Ratio 0.83 Ratio (1.60-3.17); Alkaline Phosphatase 90 U/L (41-126); Anion Gap 7.20 mmol/L (4.00-12.00); BUN/Creat Ratio 15.00 Ratio (12.00-20.00); Blood Urea Nitrogen 16.5 mg/dL (9.0-27.0); Calcium 7.7 mg/dL (8.7-10.3); Carbon Dioxide 27.8 mmol/L (21.6-31.8); Chloride 105 mmol/L (96-109); Globulin 2.9 g/dL (1.6-3.3); Glucose 77 mg/dL (70-110); Potassium 3.5 mmol/L (3.5-5.5); Sodium 140 mmol/L (135-145); Total Protein 5.3 g/dL (6.2-8.2)
[2025-04-20 11:38] LABS: Glucose,Whole Blood 159 mg/dL (70-110)
--- NOTE | 2025-04-20 13:37 | P.PN ---
Subjective Progress Note Date: 04/20/25 Chief Complaint: Hematuria History of present illness; 84 year old female with past medical history of a trial fibrillation, CVA/TIA w/ residual left sided hemiparesis, diabetes mellitus, hypertension, osteoarthritis, history of uterine cancer with incontinence of urine and recurrent urinary tract infections brought from [facility] to the ER due to hypotension 88/56 found this morning. Complaints of "vaginal bleeding", pt is a poor historian due to history of CVA and hemiparesis, can not recall home medication, or surgical history. History was taken from ER physician and previous documentation. In the ER pt was hypotensive to 88 systolic, laboratories were taken revealing massive hematuria, 182 RBC in urine, as well as numerous white blood cells. CBC revealed hemoglobin of 7.1. EKG revealed aFib with RVR consistent with previous admissions Pt was admitted to the medical team for evaluation of hematuria and anemia with consults to urology 04/16/2025: Patient seen and examined at bedside no complaints at this time, was seen by urology yesterday symptoms secondary to history of renal calculi 04/17/2025: Patient seen and examined at bedside, no change in condition, no complaints 04/18/2025: Patient seen and examined at bedside complains that IV is on her functional arm otherwise no complaints 04/19/2025: Patient seen and examined at bedside no complaints at this time 04/20/2025: Patient seen and examined at bedside, no current complaints. No significant overnight events. Patient has no complaints or concerns at this time, states she is feeling okay. REVIEW OF SYSTEMS: As stated above in HPI. The rest of the 14-point review of systems is negative. PHYSICAL EXAMINATION: GENERAL: not in any acute distress. Well developed, well nourished. HEENT: Pupils are round and equally reacting to light. EOMI. No scleral icterus. No conjunctival pallor. Normocephalic, atraumatic. CARDIOVASCULAR: S1 and S2 present. No murmurs, rubs, or gallops. PULMONARY: Chest is clear to auscultation b/l, no wheezing or crackles. ABDOMEN: Soft, nontender, nondistended, normoactive bowel sounds. No palpable organomegaly. MUSCULOSKELETAL: No joint swelling or deformity. EXTREMITIES: No cyanosis, clubbing, or pedal edema. NEUROLOGICAL: Gross neurological examination did not reveal any focal deficits. SKIN: No rashes. : Quang blood at vaginal os source difficult to localize. Exam performed with acrobatic rigger Labs from today: WBC 5.3, hemoglobin 9.1, platelets 234, neutrophils 3.31, sodium 140, potassium 3.5, bicarb 27.8, BUN 16.5, creatinine 1.1, and glucose 159. Imaging from today: No new imaging Assessment and Plan #UTI secondary to calculi #Hematuria secondary to above #Microcytic Anemia Secondary to above #Hypotension Secondary to Above -IV rocephen 1g Daily for 7 days. (Day 6 of 8) Repeat UA suspicious for UTI, preliminary urine culture is positive for gram- negative bacilli, continue Rocephin -HBG stable -Monitor CBC daily -Transfuse if Hbg< 7 -Hold Asprin -Hold apixiban - Patient seen by urology yesterday, medically managed until procedure on 04/23 -ID on consult, appreciate further recommendations #Hypokalemia potassium repletion as needed Liquid potassium per PEG tube, DC oral switch to peg Chronic Conditions: #Chronic Constipation -Continue home medication #CAD #AFib #CHF -Hold until hypotension manage #T2DM -Sliding Scale DVT ppx: SCD GI ppx: Famotadine CODE STATUS: Full Dispo: Ending p.o. ABX recommendation Objective - Vital Signs Vital signs: Vital Signs Temp 97.5 F L 04/20/25 02:57 Pulse 85 04/20/25 02:57 Resp 15 04/20/25 02:57 BP 135/78 04/20/25 02:57 Pulse Ox 98 04/20/25 02:57 FiO2 Intake & Output 04/19/25 04/20/25 04/20/25 18:59 06:59 18:59 Intake Total 780 Output Total 550 Balance 230 Weight 62.823 kg Intake: Oral 780 Output: Urine 550 Other: Voiding Method Diaper Diaper # Voids 4 4 # Bowel Movements 2 3 - Labs CBC & Chem 7: 04/25/25 04:33 04/25/25 04:33 Labs: Abnormal Lab Results - Last 24 Hours (Table) 04/19/25 04/19/25 04/19/25 Range/Units 04:25 04:25 16:56 RBC 3.47 L (4.10-5.20) X 10*6/uL Hgb 9.4 L (12.0-15.0) g/dL Hct 29.8 L (37.2-46.3) % MCHC 31.5 L (32.0-37.0) g/dL RDW 19.4 H (11.5-14.5) % MPV 8.9 L (9.5-12.2) FL Potassium 3.4 L (3.5-5.5) mmol/L Est GFR (CKD-EPI) 50 L (>=60) POC Glucose (mg/dL) 125 H (70-110) mg/dL Calcium 7.7 L (8.7-10.3) mg/dL ALT 7 L (8-44) U/L Total Protein 5.3 L (6.2-8.2) g/dL Albumin 2.3 L (3.8-4.9) g/dL Albumin/Globulin Ratio 0.77 L (1.60-3.17) Ratio // Range/Units 21:57 RBC (4.10-5.20) X 10*6/uL Hgb (12.0-15.0) g/dL Hct (37.2-46.3) % MCHC (32.0-37.0) g/dL RDW (11.5-14.5) % MPV (9.5-12.2) FL Potassium (3.5-5.5) mmol/L Est GFR (CKD-EPI) (>=60) POC Glucose (mg/dL) 151 H (70-110) mg/dL Calcium (8.7-10.3) mg/dL ALT (8-44) U/L Total Protein (6.2-8.2) g/dL Albumin (3.8-4.9) g/dL Albumin/Globulin Ratio (1.60-3.17) Ratio Assessment and Plan Assessment: Attestation Attestation/ Electrical Subcontractor Note: Attestation to Progress Note, Participation (I saw and evaluated the patient with the Resident, and I reviewed and discussed the patient with the Resident and agree with the Resident's findings and plans as do cumented above., management reviewed and discussed), I agree with findings & plan, Provider Signature (MARJORIE MALAVE, NADIA Jennings Time with Patient: Greater than 30
--- NOTE | 2025-04-20 16:06 | P.PN ---
Subjective Progress Note Date: 04/20/25 Principal diagnosis: Reason for follow-up is UTI Patient is a 84-year-old female with a past medical history significant for Atrial Fibrillation, CVA/TIA, Diabetes Mellitus, Hypertension, Osteoarthritis (OA), presenting to the hospital for evaluation of hematuria and hypotension concern for possible infected stone though initial urine culture negative. On today's evaluation that is 04/20/2025, patient did have a temperature of 98 F this morning and denies having any chills, patient is on room air and breathing comfortably no chest pain or cough, the patient did not have any nausea vomiting abdominal pain or any diarrhea. Patient white count of 5.30, creatinine is 1.1 repeat urine now showing gram- negative bacilli Objective - Vital Signs Vital signs: Vital Signs Temp 98.1 F 04/20/25 14:00 Pulse 73 04/20/25 14:00 Resp 16 04/20/25 14:00 BP 95/60 04/20/25 14:00 Pulse Ox 99 04/20/25 14:00 FiO2 Intake & Output 04/19/25 04/20/25 04/20/25 18:59 06:59 18:59 Intake Total 780 200 Output Total 550 Balance 230 200 Weight 62.823 kg Intake: Oral 780 200 Output: Urine 550 Other: Voiding Method Diaper Diaper Diaper # Voids 4 4 # Bowel Movements 2 3 - Exam GENERAL DESCRIPTION: An elderly female lying in bed in no distress RESPIRATORY SYSTEM: Unlabored breathing , decreased breath sounds at bases HEART: S1 S2 regular rate and rhythm , ABDOMEN: Soft , no tenderness EXTREMITIES: No edema feet - Labs CBC & Chem 7: 04/20/25 04:24 04/20/25 04:24 Labs: Abnormal Lab Results - Last 24 Hours (Table) 04/19/25 04/19/25 04/20/25 Range/Units 16:56 21:57 04:24 RBC 3.47 L (4.10-5.20) X 10*6/uL Hgb 9.1 L (12.0-15.0) g/dL Hct 29.9 L (37.2-46.3) % MCH 26.2 L (27.0-32.0) pg MCHC 30.4 L (32.0-37.0) g/dL RDW 19.5 H (11.5-14.5) % MPV 9.3 L (9.5-12.2) FL Est GFR (CKD-EPI) (>=60) POC Glucose (mg/dL) 125 H 151 H (70-110) mg/dL Calcium (8.7-10.3) mg/dL ALT (8-44) U/L Total Protein (6.2-8.2) g/dL Albumin (3.8-4.9) g/dL Albumin/Globulin Ratio (1.60-3.17) Ratio 04/20/25 04/20/25 Range/Units 04:24 11:36 RBC (4.10-5.20) X 10*6/uL Hgb (12.0-15.0) g/dL Hct (37.2-46.3) % MCH (27.0-32.0) pg MCHC (32.0-37.0) g/dL RDW (11.5-14.5) % MPV (9.5-12.2) FL Est GFR (CKD-EPI) 50 L (>=60) POC Glucose (mg/dL) 159 H (70-110) mg/dL Calcium 7.7 L (8.7-10.3) mg/dL ALT 7 L (8-44) U/L Total Protein 5.3 L (6.2-8.2) g/dL Albumin 2.4 L (3.8-4.9) g/dL Albumin/Globulin Ratio 0.83 L (1.60-3.17) Ratio Microbiology - Last 24 Hours (Table) 04/19/25 00:38 Urine Culture - Preliminary Urine,Voided Gram Neg Bacilli Assessment and Plan (1) UTI (urinary tract infection) Current Visit: No Status: Acute Code(s): N39.0 - URINARY TRACT INFECTION, SITE NOT SPECIFIED SNOMED Code(s): 27411129 Plan: 1patient presented to hospital with hematuria in this patient who did have a history of bilateral renal stone with bilateral renal stent in this patient did not have significant fever or elevated white count and initial urine culture was reported to be negative, patient did have a KUB x-ray was indicating adequate positioning of those kidney stone 2-repeat UA is significantly positive cultures are currently growing gram- negative we will treat the patient with Rocephin while waiting for the culture to finalize Dictation was produced using [employer] dictation software. please excuse any grammatical, word or spelling errors. Time with Patient: Less than 30
[2025-04-20 16:36] LABS: Glucose,Whole Blood 113 mg/dL (70-110)
[2025-04-21 09:43] LABS: Basophils # (A) 0.05 X 10*3/uL (0.00-0.10); Basophils % (A) 0.8 %; Eosinophils # (A) 0.25 X 10*3/uL (0.04-0.35); Eosinophils % (A) 4.2 %; HCT 30.4 % (37.2-46.3); HGB 9.2 g/dL (12.0-15.0); Immature Grans, Automated 0.20 %; Lymphocytes # (A) 1.27 X 10*3/uL (0.90-5.00); Lymphocytes % (A) 21.1 %; MCH 26.1 pg (27.0-32.0); MCHC 30.3 g/dL (32.0-37.0); MCV 86.4 FL (80.0-97.0); Monocytes # (A) 0.51 X 10*3/uL (0.20-1.00); Monocytes % (A) 8.5 %; NRBC Per 100 WBC 0 X 10*3/uL (0.00-0.01); Neutrophils # (A) 3.92 X 10*3/uL (1.80-7.70); Neutrophils % (A) 65.2 %; Platelet Count 247 X 10*3/uL (140-440); RBC 3.52 X 10*6/uL (4.10-5.20); RDW 19.6 % (11.5-14.5); WBC 6.01 X 10*3/uL (4.50-10.00)
[2025-04-21 09:57] LABS: Anion Gap 9.30 mmol/L (4.00-12.00); BUN/Creat Ratio 13.54 Ratio (12.00-20.00); Blood Urea Nitrogen 17.6 mg/dL (9.0-27.0); Calcium 7.6 mg/dL (8.7-10.3); Carbon Dioxide 25.7 mmol/L (21.6-31.8); Chloride 103 mmol/L (96-109); Glucose 84 mg/dL (70-110); Potassium 3.1 mmol/L (3.5-5.5); Sodium 138 mmol/L (135-145)
--- NOTE | 2025-04-21 10:13 | P.PN ---
Subjective Progress Note Date: 04/21/25 History of present illness; 84 year old female with past medical history of atrial fibrillation, CVA/TIA w/ residual left sided hemiparesis, diabetes mellitus, hypertension, osteoarthritis, history of uterine cancer with incontinence of urine and recurrent urinary tract infections brought from [facility] to the ER due to hypotension 88/56 found this morning. Complaints of "vaginal bleeding", pt is a poor historian due to history of CVA and hemiparesis, can not recall home medication, or surgical history. History was taken from ER physician and previous documentation. In the ER pt was hypotensive to 88 systolic, laboratories were taken revealing massive hematuria, 182 RBC in urine, as well as numerous white blood cells. CBC revealed hemoglobin of 7.1. EKG revealed aFib with RVR consistent with previous admissions Pt was admitted to the medical team for evaluation of hematuria and anemia with consults to urology 04/16/2025: Patient seen and examined at bedside no complaints at this time, was seen by urology yesterday symptoms secondary to history of renal calculi 04/17/2025: Patient seen and examined at bedside, no change in condition, no complaints 04/18/2025: Patient seen and examined at bedside complains that IV is on her functional arm otherwise no complaints 04/19/2025: Patient seen and examined at bedside no complaints at this time 04/20/2025: Patient seen and examined at bedside, no current complaints. No significant overnight events. Patient has no complaints or concerns at this time, states she is feeling okay. 04/21/2025: Patient seen and examined at bedside no acute complaints no acute overnight events, no new concerns REVIEW OF SYSTEMS: As stated above in HPI. The rest of the 14-point review of systems is negative. PHYSICAL EXAMINATION: GENERAL: not in any acute distress. Well developed, well nourished. HEENT: Pupils are round and equally reacting to light. EOMI. No scleral icterus. No conjunctival pallor. Normocephalic, atraumatic. CARDIOVASCULAR: S1 and S2 present. No murmurs, rubs, or gallops. PULMONARY: Chest is clear to auscultation b/l, no wheezing or crackles. ABDOMEN: Soft, nontender, nondistended, normoactive bowel sounds. No palpable organomegaly. MUSCULOSKELETAL: No joint swelling or deformity. EXTREMITIES: No cyanosis, clubbing, or pedal edema. NEUROLOGICAL: Gross neurological examination did not reveal any focal deficits. SKIN: No rashes. : Quang blood at vaginal os source difficult to localize. Exam performed with public health nutritionist Labs from today: WBC 5.3, hemoglobin 9.1, platelets 234, neutrophils 3.31, sodium 140, potassium 3.5, bicarb 27.8, BUN 16.5, creatinine 1.1, and glucose 159. Imaging from today: No new imaging Assessment and Plan #UTI secondary to calculi #Hematuria secondary to above #Microcytic Anemia Secondary to above #Hypotension Secondary to Above -IV rocephen 1g Daily for 7 days. (Day 7 ) Repeat UA suspicious for UTI, preliminary urine culture is positive for gram- negative bacilli, continue Rocephin -HBG stable -Monitor CBC daily -Transfuse if Hbg< 7 -Hold Asprin -Hold apixiban - Patient seen by urology medically managed until procedure on 04/23 -ID on consult, appreciate further recommendations #Hypokalemia potassium repletion as needed Liquid potassium per PEG tube, DC oral switch to peg Chronic Conditions: #Chronic Constipation -Continue home medication #CAD #AFib #CHF -Hold until hypotension manage #T2DM -Sliding Scale DVT ppx: SCD GI ppx: Famotadine CODE STATUS: Full Dispo: Ending p.o. ABX recommendation Objective - Vital Signs Vital signs: Vital Signs Temp 97.8 F 04/21/25 00:12 Pulse 81 04/21/25 00:12 Resp 16 04/21/25 00:12 BP 123/79 04/21/25 00:12 Pulse Ox 98 04/21/25 00:12 FiO2 Intake & Output 04/20/25 04/21/25 04/21/25 18:59 06:59 18:59 Intake Total 200 Output Total 900 500 Balance -700 -500 Intake: Oral 200 Output: Urine 900 500 Other: Voiding Method Diaper Diaper - Labs CBC & Chem 7: 04/25/25 04:33 04/25/25 04:33 Labs: Abnormal Lab Results - Last 24 Hours (Table) 04/20/25 04/20/25 04/20/25 Range/Units 04:24 04:24 11:36 RBC 3.47 L (4.10-5.20) X 10*6/uL Hgb 9.1 L (12.0-15.0) g/dL Hct 29.9 L (37.2-46.3) % MCH 26.2 L (27.0-32.0) pg MCHC 30.4 L (32.0-37.0) g/dL RDW 19.5 H (11.5-14.5) % MPV 9.3 L (9.5-12.2) FL Est GFR (CKD-EPI) 50 L (>=60) POC Glucose (mg/dL) 159 H (70-110) mg/dL Calcium 7.7 L (8.7-10.3) mg/dL ALT 7 L (8-44) U/L Total Protein 5.3 L (6.2-8.2) g/dL Albumin 2.4 L (3.8-4.9) g/dL Albumin/Globulin Ratio 0.83 L (1.60-3.17) Ratio 04/20/25 Range/Units 16:34 RBC (4.10-5.20) X 10*6/uL Hgb (12.0-15.0) g/dL Hct (37.2-46.3) % MCH (27.0-32.0) pg MCHC (32.0-37.0) g/dL RDW (11.5-14.5) % MPV (9.5-12.2) FL Est GFR (CKD-EPI) (>=60) POC Glucose (mg/dL) 113 H (70-110) mg/dL Calcium (8.7-10.3) mg/dL ALT (8-44) U/L Total Protein (6.2-8.2) g/dL Albumin (3.8-4.9) g/dL Albumin/Globulin Ratio (1.60-3.17) Ratio Microbiology - Last 24 Hours (Table) 04/19/25 00:38 Urine Culture - Preliminary Urine,Voided Gram Neg Bacilli Assessment and Plan Assessment: Attestation Attestation/ Covering Machine Operator Note: Attestation to Progress Note, Participation (I saw and evaluated the patient with the Resident, and I reviewed and discussed the patient with the Resident and agree with the Resident's findings and plans as documented above., management reviewed and discussed), I agree with findings & plan, Provider Signature (MARJORIE MALAVE, NADIA Jennings Time with Patient: Greater than 30
[2025-04-21] MEDS ORDERED: diphenhydrAMINE 25 MG CAP PO PRN (12:33)
[2025-04-21] MEDS: diphenhydrAMINE ELIXIR 25 MG/10 ML CUP PEG/G-TUBE PRN (14:37)
--- NOTE | 2025-04-21 15:43 | P.PN ---
Subjective Progress Note Date: 04/21/25 Principal diagnosis: Reason for follow-up is UTI Patient is a 84-year-old female with a past medical history significant for Atrial Fibrillation, CVA/TIA, Diabetes Mellitus, Hypertension, Osteoarthritis (OA), presenting to the hospital for evaluation of hematuria and hypotension concern for possible infected stone though initial urine culture negative. On today's evaluation that is 04/21/2025, Patient is afebrile patient is currently on room air and denies having any shortness of breath, the patient denies any chest pain or cough, the patient denies any nausea vomiting did not have any abdominal pain and no diarrhea. Patient white count 6.01, creatinine is 1.3 urine is growing Pseudomonas Objective - Vital Signs Vital signs: Vital Signs Temp 98.0 F 04/21/25 14:00 Pulse 75 04/21/25 14:00 Resp 15 04/21/25 14:00 BP 112/61 04/21/25 14:00 Pulse Ox 99 04/21/25 14:00 FiO2 Intake & Output 04/20/25 04/21/25 04/21/25 18:59 06:59 18:59 Intake Total 200 700 Output Total 900 500 800 Balance -700 -500 -100 Intake: Oral 200 700 Output: Urine 900 500 800 Other: Voiding Method Diaper Diaper Diaper - Exam GENERAL DESCRIPTION: An elderly female lying in bed in no distress RESPIRATORY SYSTEM: Unlabored breathing , decreased breath sounds at bases HEART: S1 S2 regular rate and rhythm , ABDOMEN: Soft , no tenderness EXTREMITIES: No edema feet - Labs CBC & Chem 7: 04/21/25 02:48 04/21/25 02:48 Labs: Abnormal Lab Results - Last 24 Hours (Table) 04/20/25 04/21/25 04/21/25 Range/Units 16:34 02:48 02:48 RBC 3.52 L (4.10-5.20) X 10*6/uL Hgb 9.2 L (12.0-15.0) g/dL Hct 30.4 L (37.2-46.3) % MCH 26.1 L (27.0-32.0) pg MCHC 30.3 L (32.0-37.0) g/dL RDW 19.6 H (11.5-14.5) % MPV 9.3 L (9.5-12.2) FL Potassium 3.1 L (3.5-5.5) mmol/L Est GFR (CKD-EPI) 41 L (>=60) POC Glucose (mg/dL) 113 H (70-110) mg/dL Calcium 7.6 L (8.7-10.3) mg/dL Microbiology - Last 24 Hours (Table) 04/19/25 00:38 Urine Culture - Final Urine,Voided Pseudomonas aeruginosa Assessment and Plan (1) UTI (urinary tract infection) Current Visit: No Status: Acute Code(s): N39.0 - URINARY TRACT INFECTION, SITE NOT SPECIFIED SNOMED Code(s): 80160124 (2) Pseudomonas aeruginosa infection Current Visit: Yes Status: Acute Code(s): A49.8 - OTHER BACTERIAL INFECTIONS OF UNSPECIFIED SITE SNOMED Code(s): 73998970 Plan: 1patient presented to hospital with hematuria in this patient who did have a history of bilateral renal stone with bilateral renal stent in this patient did not have significant fever or elevated white count and initial urine culture was reported to be negative, patient did have a KUB x-ray was indicating adequate positioning of those kidney stone 2-repeat UA is significantly positive cultures are currently growing Pseudomonas aeruginosa we will discontinue Rocephin and start the patient on cefepime 2 g every 8 hours however patient will be able to finish therapy with oral Cipro Dictation was produced using [employer] dictation software. please excuse any grammatical, word or spelling errors. Time with Patient: Less than 30
[2025-04-21] MEDS ORDERED: CEFEPIME 2 GM in SODIUM CHLORIDE 0.9% 100 ML IVPB SCH (16:00)
[2025-04-21] MEDS: CEFEPIME 1 GM in SODIUM CHLORIDE 0.9% 50 ML IVPB SCH (16:46)
[2025-04-21] MEDS ORDERED: Potassium Replacement Protocol 1 EACH MISC MISCELLANE PRN (19:49)
[2025-04-21] MEDS: POTASSIUM BICARBONATE/CIT AC 20 MEQ TABLET.EFF NG-TUBE SCH (21:26)
[2025-04-22 00:38] LABS: Basophils # (A) 0.04 10*3/uL (0.00-0.10); Basophils % (A) 0.8 %; Eosinophils # (A) 0.26 10*3/uL (0.04-0.35); Eosinophils % (A) 5.0 %; HCT 29.9 % (37.2-46.3); HGB 9.5 g/dL (12.0-15.0); Lymphocytes # (A) 1.22 10*3/uL (0.90-5.00); Lymphocytes % (A) 23.3 %; MCH 26.9 pg (27.0-32.0); MCHC 31.8 g/dL (32.0-37.0); MCV 84.7 fL (80.0-97.0); Monocytes # (A) 0.48 10*3/uL (0.20-1.00); Monocytes % (A) 9.2 %; Neutrophils # (A) 3.22 10*3/uL (1.80-7.70); Neutrophils % (A) 61.3 %; Platelet Count 225 10*3/uL (140-440); RBC 3.53 10*6/uL (4.10-5.20); RDW 19.5 % (11.5-14.5); WBC 5.24 10*3/uL (4.50-10.00)
[2025-04-22 00:56] LABS: ALT 8 U/L (4-34); AST 18 U/L (14-36); African American GFR (CKD) 49 (>60 ml/min/1.73 sqM); Albumin 2.5 g/dL (3.5-5.0); Albumin/Globulin Ratio 0.7; Alkaline Phosphatase 115 U/L (38-126); Anion Gap 6 mmol/L; Blood Urea Nitrogen 23 mg/dL (7-17); Calcium 7.7 mg/dL (8.4-10.2); Carbon Dioxide 30 mmol/L (22-30); Chloride 102 mmol/L (98-107); Globulin 3.4 g/dL; Glucose 98 mg/dL (74-99); Non-African American GFR(CKD) 43 (>60 ml/min/1.73 sqM); Potassium 3.6 mmol/L (3.5-5.1); Sodium 138 mmol/L (137-145); Total Protein 5.9 g/dL (6.3-8.2)
--- NOTE | 2025-04-22 18:37 | P.PN ---
Subjective Progress Note Date: 04/22/25 History of present illness; 84 year old female with past medical history of atrial fibrillation, CVA/TIA w/ residual left sided hemiparesis, diabetes mellitus, hypertension, osteoarthritis, history of uterine cancer with incontinence of urine and recurrent urinary tract infections brought from [facility] to the ER due to hypotension 88/56 found this morning. Complaints of "vaginal bleeding", pt is a poor historian due to history of CVA and hemiparesis, can not recall home medication, or surgical history. History was taken from ER physician and previous documentation. In the ER pt was hypotensive to 88 systolic, laboratories were taken revealing massive hematuria, 182 RBC in urine, as well as numerous white blood cells. CBC revealed hemoglobin of 7.1. EKG revealed aFib with RVR consistent with previous admissions Pt was admitted to the medical team for evaluation of hematuria and anemia with consults to urology 04/16/2025: Patient seen and examined at bedside no complaints at this time, was seen by urology yesterday symptoms secondary to history of renal calculi 04/17/2025: Patient seen and examined at bedside, no change in condition, no complaints 04/18/2025: Patient seen and examined at bedside complains that IV is on her functional arm otherwise no complaints 04/19/2025: Patient seen and examined at bedside no complaints at this time 04/20/2025: Patient seen and examined at bedside, no current complaints. No significant overnight events. Patient has no complaints or concerns at this time, states she is feeling okay. 04/21/2025: Patient seen and examined at bedside no acute complaints no acute overnight events, no new concerns 04/22/2025: Patient seen and examined no acute events overnight. Only complains of some slight burning upon urination. REVIEW OF SYSTEMS: As stated above in HPI. The rest of the 14-point review of systems is negative. Vitals reviewed. PHYSICAL EXAMINATION: GENERAL: not in any acute distress. Well developed, well nourished. HEENT: No scleral icterus. No conjunctival pallor. Normocephalic, atraumatic. CARDIOVASCULAR: S1 and S2 present. No murmurs, rubs, or gallops. PULMONARY: Chest is clear to auscultation b/l, no wheezing or crackles. ABDOMEN: Soft, nontender, nondistended MUSCULOSKELETAL: No joint swelling or deformity. EXTREMITIES: No cyanosis, clubbing, or pedal edema. NEUROLOGICAL: Gross neurological examination did not reveal any focal deficits. SKIN: No rashes. Labs from today: WBC 5.24, Hgb 9.5, potassium 3.7, BUN 23, creatinine 1.18, bicarb 30, -Urine culture positive for Pseudomonas Imaging from today: No new imaging Assessment and Plan #UTI secondary to calculi #Hematuria secondary to above #Microcytic Anemia Secondary to above #Hypotension Secondary to Above -IV Cefepime 1g q12hr d/t Cr clearance. (ID recommended cefepime 2g q8hr initially but pharmacy adjusted d/t Cr clearance) -HBG stable -Monitor CBC daily -Transfuse if Hbg< 7 -Hold Asprin -Hold apixiban -Patient will need lithotripsy per uro but will need to complete cefepime course first. Consider doing lithotripsy outpatient. -ID following #Hypokalemia potassium repletion as needed Potassium 3.7 today, no repletion needed Chronic Conditions: #Chronic Constipation -Continue home medication #CAD #AFib #CHF -Hold until hypotension manage #T2DM -Sliding Scale DVT ppx: SCD GI ppx: Famotidine CODE STATUS: Full Objective - Vital Signs Vital signs: Vital Signs Temp 98.0 F 04/22/25 08:05 Pulse 86 04/22/25 08:05 Resp 16 04/22/25 08:05 BP 124/63 04/22/25 08:05 Pulse Ox 98 04/22/25 08:05 FiO2 Intake & Output 04/21/25 04/22/25 04/22/25 18:59 06:59 18:59 Intake Total 700 180 Output Total 2000 600 Balance -1300 -600 180 Intake: Oral 700 180 Output: Urine 2000 600 Other: Voiding Method Diaper Diaper External Catheter # Bowel Movements 1 - Labs CBC & Chem 7: 04/25/25 04:33 04/25/25 04:33 Labs: Abnormal Lab Results - Last 24 Hours (Table) 04/21/25 04/21/25 04/22/25 Range/Units 02:48 02:48 00:14 RBC 3.52 L 3.53 L (4.10-5.20) X 10*6/uL Hgb 9.2 L 9.5 L (12.0-15.0) g/dL Hct 30.4 L 29.9 L (37.2-46.3) % MCH 26.1 L 26.9 L (27.0-32.0) pg MCHC 30.3 L 31.8 L (32.0-37.0) g/dL RDW 19.6 H 19.5 H (11.5-14.5) % MPV 9.3 L 8.6 L (9.5-12.2) FL Potassium 3.1 L (3.5-5.5) mmol/L BUN (7-17) mg/dL Creatinine (0.52-1.04) mg/dL Est GFR (CKD-EPI) 41 L (>=60) Calcium 7.6 L (8.7-10.3) mg/dL Total Protein (6.3-8.2) g/dL Albumin (3.5-5.0) g/dL 04/22/25 Range/Units 00:14 RBC (4.10-5.20) X 10*6/uL Hgb (12.0-15.0) g/dL Hct (37.2-46.3) % MCH (27.0-32.0) pg MCHC (32.0-37.0) g/dL RDW (11.5-14.5) % MPV (9.5-12.2) FL Potassium (3.5-5.5) mmol/L BUN 23 H (7-17) mg/dL Creatinine 1.18 H (0.52-1.04) mg/dL Est GFR (CKD-EPI) (>=60) Calcium 7.7 L (8.7-10.3) mg/dL Total Protein 5.9 L (6.3-8.2) g/dL Albumin 2.5 L (3.5-5.0) g/dL Microbiology - Last 24 Hours (Table) 04/19/25 00:38 Urine Culture - Final Urine,Voided Pseudomonas aeruginosa Assessment and Plan Assessment: Attestation Attestation/ Special Inspector Note: Attestation to Progress Note, Participation (I saw and evaluated the patient with the Resident, and I reviewed and discussed the patient with the Resident and agree with the Resident's findings and plans as documented above., management reviewed and discussed), I agree with findings & plan, Provider Signature (MARJORIE MALAVE, NADIA Vance. Time with Patient: Greater than 30
--- NOTE | 2025-04-22 22:25 | P.PN ---
Subjective Progress Note Date: 04/22/25 Principal diagnosis: Reason for follow-up is UTI Patient is a 84-year-old female with a past medical history significant for Atrial Fibrillation, CVA/TIA, Diabetes Mellitus, Hypertension, Osteoarthritis (OA), presenting to the hospital for evaluation of hematuria and hypotension concern for possible infected stone though initial urine culture negative. On today's evaluation that is 04/22/2025, patient has been afebrile, patient is breathing comfortably and is currently on room air, patient denies having any chest pain and cough, patient denies nausea vomiting or diarrhea and no abdominal pain. Patient white count is 5.24, creatinine is 1.18 urine with Pseudomonas aeruginosa Objective - Vital Signs Vital signs: Vital Signs Temp 98.0 F 04/22/25 08:05 Pulse 86 04/22/25 08:05 Resp 16 04/22/25 08:05 BP 124/63 04/22/25 08:05 Pulse Ox 98 04/22/25 08:05 FiO2 Intake & Output 04/21/25 04/22/25 04/22/25 18:59 06:59 18:59 Intake Total 700 180 Output Total 2000 600 600 Balance -1300 -600 -420 Intake: Oral 700 180 Output: Urine 2000 600 600 Other: Voiding Method Diaper Diaper Diaper External Catheter External Catheter # Bowel Movements 1 1 - Exam GENERAL DESCRIPTION: An elderly female lying in bed in no distress RESPIRATORY SYSTEM: Unlabored breathing , decreased breath sounds at bases HEART: S1 S2 regular rate and rhythm , ABDOMEN: Soft , no tenderness EXTREMITIES: No edema feet - Labs CBC & Chem 7: 04/22/25 00:14 04/22/25 00:14 Labs: Abnormal Lab Results - Last 24 Hours (Table) 04/22/25 04/22/25 Range/Units 00:14 00:14 RBC 3.53 L (4.10-5.20) 10*6/uL Hgb 9.5 L (12.0-15.0) g/dL Hct 29.9 L (37.2-46.3) % MCH 26.9 L (27.0-32.0) pg MCHC 31.8 L (32.0-37.0) g/dL RDW 19.5 H (11.5-14.5) % MPV 8.6 L (9.5-12.2) fL BUN 23 H (7-17) mg/dL Creatinine 1.18 H (0.52-1.04) mg/dL Calcium 7.7 L (8.4-10.2) mg/dL Total Protein 5.9 L (6.3-8.2) g/dL Albumin 2.5 L (3.5-5.0) g/dL Microbiology - Last 24 Hours (Table) 04/19/25 00:38 Urine Culture - Final Urine,Voided Pseudomonas aeruginosa Assessment and Plan (1) UTI (urinary tract infection) Current Visit: No Status: Acute Code(s): N39.0 - URINARY TRACT INFECTION, SITE NOT SPECIFIED SNOMED Code(s): 44626879 (2) Pseudomonas aeruginosa infection Current Visit: Yes Status: Acute Code(s): A49.8 - OTHER BACTERIAL INFECTIONS OF UNSPECIFIED SITE SNOMED Code(s): 75010376 Plan: 1patient presented to hospital with hematuria in this patient who did have a hi story of bilateral renal stone with bilateral renal stent in this patient did not have significant fever or elevated white count and initial urine culture was reported to be negative, patient did have a KUB x-ray was indicating adequate positioning of those kidney stone 2-repeat UA is significantly positive cultures are currently growing Pseudomonas aeruginosa patient has been started on cefepime dose has been adjusted by pharmacy to 1 g every 12 keeping in mind her creatinine clearance she will continue with the cefepime while inpatient finishing therapy with oral Cipro no plan for IV antibiotics on discharge Dictation was produced using [employer] dictation software. please excuse any grammatical, word or spelling errors. Time with Patient: Less than 30
[2025-04-23] MEDS ORDERED: HYDROmorphone 0.5 MG/0.5 ML SYRINGE IVP PRN (07:00)
[2025-04-23] MEDS ORDERED: MIDAZOLAM 2 MG/2 ML VIAL IV PRN (07:00)
[2025-04-23] MEDS: LACTATED RINGERS 1,000 ML IV SCH (07:11)
[2025-04-23] MEDS: DEXAMETHASONE SOD PHOSPHATE 4 MG/ML 1 ML VIAL IV ONE (07:11)
[2025-04-23] MEDS: ONDANSETRON 4 MG/2 ML VIAL IVP ONE (07:11)
[2025-04-23] MEDS: IV FLUID CONTINUATION 1,000 ML IV ONE (07:13)
[2025-04-23] MEDS: GENTAMICIN 40 MG/ML 2 ML VIAL IVPB ONE (07:55)
[2025-04-23] MEDS: ceFAZolin 1,000 MG VIAL IVPB ONE (07:59)
[2025-04-23] MEDS: IOPAMIDOL-370 100ML BTL MISCELLANE ONE (08:17)
[2025-04-23 08:28] LABS: Basophils # (A) 0.06 X 10*3/uL (0.00-0.10); Basophils % (A) 1.0 %; Eosinophils # (A) 0.29 X 10*3/uL (0.04-0.35); Eosinophils % (A) 4.7 %; HCT 31.0 % (37.2-46.3); HGB 9.5 g/dL (12.0-15.0); Immature Grans, Automated 0 %; Lymphocytes # (A) 1.24 X 10*3/uL (0.90-5.00); Lymphocytes % (A) 20.2 %; MCH 26.0 pg (27.0-32.0); MCHC 30.6 g/dL (32.0-37.0); MCV 84.9 FL (80.0-97.0); Monocytes # (A) 0.53 X 10*3/uL (0.20-1.00); Monocytes % (A) 8.6 %; NRBC Per 100 WBC 0 X 10*3/uL (0.00-0.01); Neutrophils # (A) 4.03 X 10*3/uL (1.80-7.70); Neutrophils % (A) 65.5 %; Platelet Count 259 X 10*3/uL (140-440); RBC 3.65 X 10*6/uL (4.10-5.20); RDW 19.5 % (11.5-14.5); WBC 6.15 X 10*3/uL (4.50-10.00)
--- NOTE | 2025-04-23 08:33 | P.OP ---
Date of Procedure: 04/23/25 Preoperative Diagnosis: Large left renal calculus Postoperative Diagnosis: Same Procedure(s) Performed: Left percutaneous access with placement of working sheath Anesthesia: JESSIE Surgeon: Gulshan Charles Estimated Blood Loss (ml): 0 Pathology: none sent Condition: stable Disposition: PACU Indications for Procedure: And is 85. 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 going to perform a left percutaneous nephrostolithotomy. I been asked to do percutaneous access Description of Procedure: The patient is in the operating room. She had a general anesthetic. has placed an occluding balloon catheter in the left proximal ureter. She is in a prone position with care Sharif and extremities. The left flank is exposed. Air is injected through the ureteral catheter to outline the collecting system. A pole calyx is identified. The 18 gauge Chiba needle is introduced into that calyx. I then introduced a [place] mandrel wire through the needle down the left ureter.. Over the [place] mandrel wire I then passed a 5 [place] catheter into the proximal ureter. I removed the [place] mandrel wire and passed an 035 Glidewire down the ureter. Over the Glidewire then passed a 5 [place] exchange catheter. I removed the inner catheter and passed a Super Stiff wire down the ureter, 035. Then over the 035 wire, Super Stiff, I used the dilating balloon to dilate the tract to 30 [place]. I then introduced the 30 [place] sheath into the collecting system without difficulty. Blood loss is minimal. Dr. Breen enters the procedure to perform the percutaneous nephrostolithotomy left
[2025-04-23] MEDS: LACTATED RINGERS 1,000 ML IV ONE (09:12)
--- NOTE | 2025-04-23 09:39 | FL ---
EXAMINATION TYPE: FL Perc Nephrostomy New Access DATE OF EXAM: 04/23/2025 COMPARISON: NONE CLINICAL INDICATION: Female, 85 years old with history of RENAL STONE; TECHNIQUE/FINDINGS: Fluoroscopy of 74 seconds. The DAP 1.82. IMPRESSION: 1. Fluoroscopy time [facility] Surekha Lackey, , 04/23/2025 9:37 AM
--- NOTE | 2025-04-23 09:55 | P.PN ---
Subjective Progress Note Date: 04/23/25 No acute overnight event, urine culture is growing Pseudomonas, she has been on cefepime. Patient is afebrile, and no evidence of leukocytosis. Objective - Vital Signs Vital signs: Vital Signs Temp 97 F L 04/23/25 09:26 Pulse 78 04/23/25 09:45 Resp 16 04/23/25 09:45 BP 131/74 04/23/25 09:45 Pulse Ox 100 04/23/25 09:45 FiO2 Intake & Output 04/22/25 04/23/25 04/23/25 18:59 06:59 18:59 Intake Total 720 1100 Output Total 1400 600 50 Balance -680 -600 1050 Weight 62.823 kg Intake: IV 1100 Oral 720 Output: Urine 1400 600 Estimated Blood Loss 50 Other: Voiding Method Diaper Diaper External Catheter External Catheter # Bowel Movements 1 4 - Constitutional General appearance: Present: no acute distress - Gastrointestinal General gastrointestinal: Present: soft. 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 She is status post stent insertion. Fidelina murillo has been admitted to the hospital with a UTI, she is been in the hospital since April 16. She is currently on cefepime for Pseudomonas UTI. I had a prolonged discussion with the patient and her son Scottie over the phone given in the struvite appearance, staghorn and her recurrent UTIs she will require stone removal. Discussed given that she has been on a IV antibiotics and she is currently asymptomatic and hemodynamically stable the safest time to remove the stone is while she is on antibiotics. I did discuss with him given her age comorbidities and history of recurrent UTIs she is at a high risk of sepsis and there is potential that she could become septic postsurgery. They understood all the risks the benefits and the rationale of doing the surgery and agreed to proceed OR for left PCNL, we will plan on proceeding with right PCNL in 2 weeks. Will plan on keeping the patient on antibiotics until her second surgery
--- NOTE | 2025-04-23 10:38 | P.OP ---
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 She is status post stent insertion. Patient has been admitted to the hospital with a UTI, she is been in the hospital since April 16. She is currently on cefepime for Pseudomonas UTI. I had a prolonged discussion with the patient and her son Scottie over the phone given in the struvite appearance, staghorn and her recurrent UTIs she will require stone removal. Discussed given that she has been on a IV antibiotics and she is currently asymptomatic and hemodynamically stable the safest time to remove the stone is while she is on antibiotics. I did discuss with him given her age comorbidities and history of recurrent UTIs she is at a high risk of sepsis and there is potential that she could become septic postsurgery. They understood all the risks the benefits and the rationale of doing the surgery and agreed to proceed Operative Findings: Large struvite appearing stone in the renal pelvis extending into the left lower pole Description of Procedure: Patient brought to the operating room, general anesthesia was induced. She was prepped and draped in sterile fashion and placed in a frog-leg position on the stretcher. Next a cystoscope fitted the 21 [place] sheath was inserted per urethra, the left stent was grasped and removed to the meatus. At this time I attempted to pass a wire through the stent but the stent was completely occluded. This time the stent was removed and the cystoscope was reinserted, a Glidewire was advanced from the cystoscope and up the left ureteral orifice, next a balloon occlusion catheter was passed over the wire and into the kidney. 16 [place] Streeter catheter was placed in the catheter and the Streeter were secured to each other. At this point patient was placed in a prone position on the operating room table, all pressure points were padded. The left flank was prepped and draped in sterile fashion, next access was obtained by . Please see his procedure note for that part of the detail. At this point a rigid nephroscope was inserted through the access sheath, renoscopy was performed which showed a large stone in the renal pelvis extending to the lower pole, the access was at the level of the lower pole. At this point using the grasper the stone particle was removed, of note the stone was consistent with struvite stone. Using the ultrasound lithotripter the larger part of the stone along the pelvis was fragmented, at this point all the fragments were removed. Repeat renoscopy showed no additional stones and on fluoroscopy there is no additional stones visualized. At this time I switched to the flexible cystoscope, renoscopy was performed of the renal pelvis and the upper pole calyx which showed no additional stones. Nephrostogram was performed to ensure all the calyces were evaluated, nephrostogram there was no evidence of any filling defects. The ureteroscope was advanced down the ureter all the way up to the mid ureter which showed no stones along the course of the ureter. At this time the nephroscope was withdrawn and a 10 [place] nephrostomy tube was passed over the wire and into the renal pelvis, antegrade nephrostogram was performed showed no filling defects or evidence of contrast extravasation. The medial aspect of the incision was closed with 2-0 Vicryl, the lateral aspect was closed using 2-0 silk, this was used to secure the tube to the skin. Sterile dressing was applied to the incision. Patient was awakened from anesthesia and taken to recovery in stable condition.
[2025-04-23 10:54] LABS: Glucose,Whole Blood 144 mg/dL (70-110)
--- NOTE | 2025-04-23 16:15 | P.PN ---
Subjective Progress Note Date: 04/23/25 Principal diagnosis: Reason for follow-up is UTI Patient is a 84-year-old female with a past medical history significant for Atrial Fibrillation, CVA/TIA, Diabetes Mellitus, Hypertension, Osteoarthritis (OA), presenting to the hospital for evaluation of hematuria and hypotension concern for possible infected stone though initial urine culture negative. On today's evaluation that is Patient is status post cystoscopy left ureteral stent removal percutaneous nephrolithotomy and nephrostomy tube placement. On today's evaluation that is 04/23/2025, Patient is afebrile this morning patient denies having any chest pain shortness of breath or cough, the patient is currently on room air, patient denies any abdominal pain no diarrhea no nausea no vomiting. Patient white count 6.15 creatinine is 1.18 Objective - Vital Signs Vital signs: Vital Signs Temp 97 F L 04/23/25 09:26 Pulse 95 04/23/25 12:40 Resp 16 04/23/25 10:15 BP 109/52 04/23/25 12:40 Pulse Ox 100 04/23/25 12:40 FiO2 Intake & Output 04/22/25 04/23/25 04/23/25 18:59 06:59 18:59 Intake Total 720 1100 Output Total 1400 600 50 Balance -680 -600 1050 Weight 62.823 kg Intake: IV 1100 Oral 720 Output: Urine 1400 600 Estimated Blood Loss 50 Other: Voiding Method Diaper Diaper Diaper External Catheter External Catheter Indwelling Catheter # Bowel Movements 1 4 - Exam GENERAL DESCRIPTION: An elderly female lying in bed in no distress RESPIRATORY SYSTEM: Unlabored breathing , decreased breath sounds at bases HEART: S1 S2 regular rate and rhythm , ABDOMEN: Soft , no tenderness EXTREMITIES: No edema feet - Labs CBC & Chem 7: 04/23/25 02:54 04/22/25 00:14 Labs: Abnormal Lab Results - Last 24 Hours (Table) 04/23/25 04/23/25 Range/Units 02:54 10:53 RBC 3.65 L (4.10-5.20) X 10*6/uL Hgb 9.5 L (12.0-15.0) g/dL Hct 31.0 L (37.2-46.3) % MCH 26.0 L (27.0-32.0) pg MCHC 30.6 L (32.0-37.0) g/dL RDW 19.5 H (11.5-14.5) % MPV 9.2 L (9.5-12.2) FL POC Glucose (mg/dL) 144 H (70-110) mg/dL Assessment and Plan (1) UTI (urinary tract infection) Current Visit: No Status: Acute Code(s): N39.0 - URINARY TRACT INFECTION, SITE NOT SPECIFIED SNOMED Code(s): 50711329 (2) Pseudomonas aeruginosa infection Current Visit: Yes Status: Acute Code(s): A49.8 - OTHER BACTERIAL INFECTIONS OF UNSPECIFIED SITE SNOMED Code(s): 62835739 Plan: 1patient presented to hospital with hematuria in this patient who did have a history of bilateral renal stone with bilateral renal stent in this patient did not have significant fever or elevated white count and initial urine culture was reported to be negative, patient did have a KUB x-ray was indicating adequate positioning of those kidney stone 2-repeat UA is significantly positive cultures are currently growing Pseudomonas aeruginosa patient is status post cystoscopy removal of the left ureteral stent ureterolithotomy and a percutaneous nephrostomy tube placement we will keep the patient on cefepime and monitor clinical course closely Dictation was produced using [employer] dictation software. please excuse any grammatical, word or spelling errors. Time with Patient: Less than 30
[2025-04-23 16:34] LABS: Glucose,Whole Blood 203 mg/dL (70-110)
--- NOTE | 2025-04-23 20:17 | P.PN ---
Subjective Progress Note Date: 04/23/25 Subjective: History of present illness; 84 year old female with past medical history of atrial fibrillation, CVA/TIA w/ residual left sided hemiparesis, diabetes mellitus, hypertension, osteoarthritis, history of uterine cancer with incontinence of urine and recurrent urinary tract infections brought from [facility] to the ER due to hypotension 88/56 found this morning. Complaints of "vaginal bleeding", pt is a poor historian due to history of CVA and hemiparesis, can not recall home medication, or surgical history. History was taken from ER physician and previous documentation. 04/23/25: Patient seen and examined. No acute events overnight. Patient underwent cystoscopy and left percutaneous nephrolithotomy per urology. Pertinent positives and negatives as discussed above, a complete review of systems was performed and all other systems are negative. Vitals: Signs Reviewed Physical Exam: General: nontoxic, lethargic, appears at stated age Derm: warm, dry, intact Head: atraumatic, normocephalic, symmetric Eyes: EOMI, anicteric sclera Mouth: no lip lesion, mucus membranes moist Cardiovascular: S1 S2 reg, no murmur, rubs, or gallops Lungs: CTA bilateral, no rhonchi, no rales, no accessory muscle use Abdominal: soft, non-tender to palpation, no appreciable organomegaly. L sided nephrostomy tube in place, draining sanguinous fluid. Extremities: no gross muscle atrophy, no edema, no contractures Neuro: Alert,CNII-XII grossly intact, gait normal Psych: well appearing, appropriate affect Data Received Today: Pertinent Labs: Hemoglobin 9.5, platelet 259, Repeat urine culture positive for Pseudomonas Imaging: No new imaging ordered Assessment and Plan: #UTI secondary to calculi #Hematuria secondary to above #Microcytic Anemia Secondary to above #Hypotension Secondary to Above - Per ID continue IV cefepime - Monitor CBC - Monitor drainage from nephrostomy tube #Hypokalemia Plan: - Continue 10 mEq potassium chloride daily #Diabetes, Insulin dependent Plan: -Continue Glargine 5u daily #Chronic constipation -Continue dulcolax 10mg daily F: LR 20mL/hr E: Replete as needed N: As tolerated A: As tolerated DVT ppx: SCD Code status: FULL CODE Anticipated discharge place: Home Anticipated discharge time: Pending Improvement Discussed with Dr Ali. Hoa Bansal PGY-1 IM Dictation was produced using [employer] dictation software. please excuse any grammatical, word or spelling errors. Attestation I have seen and examined this patient with my resident , discussed the same with the resident/TACHO, and agree with the dictator's assessment and plan as written Dr. Clive miller Objective - Vital Signs Vital signs: Vital Signs Temp 97 F L 04/23/25 09:26 Pulse 95 04/23/25 12:40 Resp 16 04/23/25 10:15 BP 109/52 04/23/25 12:40 Pulse Ox 100 04/23/25 12:40 FiO2 Intake & Output 04/23/25 04/23/25 04/24/25 06:59 18:59 06:59 Intake Total 1100 Output Total 600 2050 Balance -600 -950 Weight 62.823 kg Intake: IV 1100 Output: Drainage 500 Left Posterior Lateral 500 Abdomen Urine 600 1500 Estimated Blood Loss 50 Other: Voiding Method Diaper Diaper External Catheter Indwelling Catheter # Bowel Movements 4 - Labs CBC & Chem 7: 04/24/25 03:29 04/22/25 00:14 Labs: Abnormal Lab Results - Last 24 Hours (Table) 04/23/25 04/23/25 04/23/25 Range/Units 02:54 10:53 16:32 RBC 3.65 L (4.10-5.20) X 10*6/uL Hgb 9.5 L (12.0-15.0) g/dL Hct 31.0 L (37.2-46.3) % MCH 26.0 L (27.0-32.0) pg MCHC 30.6 L (32.0-37.0) g/dL RDW 19.5 H (11.5-14.5) % MPV 9.2 L (9.5-12.2) FL POC Glucose (mg/dL) 144 H 203 H (70-110) mg/dL
[2025-04-23] MEDS: TRIAMCINOLONE 0.1% CREAM 80 GM TUBE TOPICAL SCH (23:45)
[2025-04-24 06:15] LABS: Glucose,Whole Blood 147 mg/dL (70-110)
[2025-04-24 07:54] LABS: Basophils # (A) 0.06 X 10*3/uL (0.00-0.10); Basophils % (A) 0.7 %; Eosinophils # (A) 0.02 X 10*3/uL (0.04-0.35); Eosinophils % (A) 0.2 %; HCT 27.7 % (37.2-46.3); HGB 8.5 g/dL (12.0-15.0); Immature Grans, Automated 0.30 %; Lymphocytes # (A) 1.03 X 10*3/uL (0.90-5.00); Lymphocytes % (A) 11.7 %; MCH 26.3 pg (27.0-32.0); MCHC 30.7 g/dL (32.0-37.0); MCV 85.8 FL (80.0-97.0); Monocytes # (A) 0.66 X 10*3/uL (0.20-1.00); Monocytes % (A) 7.5 %; NRBC Per 100 WBC 0 X 10*3/uL (0.00-0.01); Neutrophils # (A) 7.00 X 10*3/uL (1.80-7.70); Neutrophils % (A) 79.6 %; Platelet Count 237 X 10*3/uL (140-440); RBC 3.23 X 10*6/uL (4.10-5.20); RDW 19.7 % (11.5-14.5); WBC 8.80 X 10*3/uL (4.50-10.00)
[2025-04-24 11:05] LABS: Glucose,Whole Blood 147 mg/dL (70-110)
--- NOTE | 2025-04-24 12:44 | P.PN ---
Subjective Progress Note Date: 04/24/25 Principal diagnosis: POD #1, s/p left PCNL The patient underwent a successful left PCNL yesterday. She is currently comfortable. Objective - Vital Signs Vital signs: Vital Signs Temp 98.0 F 04/24/25 07:18 Pulse 93 04/24/25 07:18 Resp 15 04/24/25 07:18 BP 115/56 04/24/25 07:18 Pulse Ox 92 L 04/24/25 07:18 FiO2 Intake & Output 04/23/25 04/24/25 04/24/25 18:59 06:59 18:59 Intake Total 1100 Output Total 2049 1050 130 Balance -950 -1050 -130 Weight 62.823 kg Intake: IV 1100 Output: Drainage 500 350 130 left back 500 350 130 Urine 1500 700 Estimated Blood Loss 50 Other: Voiding Method Diaper Diaper Indwelling Catheter Indwelling Catheter Indwelling Catheter # Bowel Movements 2 - Constitutional General appearance: Present: average body habitus, cooperative, no acute distress - Gastrointestinal Gastrointestinal Comment(s): Soft, non-tender, non-distended. The left nephrostomy tube is draining blood- tinged urine without clots. - Labs CBC & Chem 7: 04/24/25 03:29 04/22/25 00:14 Labs: Abnormal Lab Results - Last 24 Hours (Table) 04/23/25 04/24/25 04/24/25 Range/Units 16:32 03:29 06:14 RBC 3.23 L (4.10-5.20) X 10*6/uL Hgb 8.5 L (12.0-15.0) g/dL Hct 27.7 L (37.2-46.3) % MCH 26.3 L (27.0-32.0) pg MCHC 30.7 L (32.0-37.0) g/dL RDW 19.7 H (11.5-14.5) % Eosinophils # 0.02 L (0.04-0.35) X 10*3/uL POC Glucose (mg/dL) 203 H 147 H (70-110) mg/dL 04/24/25 Range/Units 11:03 RBC (4.10-5.20) X 10*6/uL Hgb (12.0-15.0) g/dL Hct (37.2-46.3) % MCH (27.0-32.0) pg MCHC (32.0-37.0) g/dL RDW (11.5-14.5) % Eosinophils # (0.04-0.35) X 10*3/uL POC Glucose (mg/dL) 147 H (70-110) mg/dL Assessment and Plan (1) Calculus of kidney Current Visit: No Status: Acute Code(s): N20.0 - CALCULUS OF KIDNEY SNOMED Code(s): 00988627 Plan: Patient is recovering nicely from her left PCNL. The Streeter catheter will be removed. The nephrostomy tube will remain in place. The patient is urologically stable for discharge, and is scheduled to undergo a right PCNL in a pproximately 3 weeks. The left nephrostomy tube will be removed at that time.
[2025-04-24] MEDS: INSULIN GLARGINE (LANTUS) 100 UNIT/ML SYR SQ SCH (13:02)
--- NOTE | 2025-04-24 14:07 | P.PN ---
Subjective Progress Note Date: 04/24/25 Hospital Course:History of present illness; 84 year old female with past medical history of atrial fibrillation, CVA/TIA w/ residual left sided hemiparesis, diabetes mellitus, hypertension, osteoarthritis, history of uterine cancer with incontinence of urine and recurrent urinary tract infections brought from [facility] to the ER due to hypotension 88/56. Complaints of "vaginal bleeding", pt is a poor historian due to history of CVA and hemiparesis, can not recall home medication, or surgical history. History was taken from ER physician and previous documentation. 04/23/25: Patient seen and examined. No acute events overnight. Plan is for cystoscopy and left percutaneous nephrolithotomy today per urology. 04/24/25: Patient seen at bedside. No acute concerns overnight. Seems to be doing better. Pertinent positives and negatives as discussed above, a complete review of systems was performed and all other systems are negative. Vitals: Vital stable within normal limits, 2% on 2 L Physical Exam: General: nontoxic, more responsive than yesterday, appears at stated age Derm: warm, dry, intact Head: atraumatic, normocephalic, symmetric Eyes: EOMI, anicteric sclera Mouth: no lip lesion, mucus membranes moist Cardiovascular: S1 S2 reg, no murmur, rubs, or gallops Lungs: CTA bilateral, no rhonchi, no rales, no accessory muscle use Abdominal: soft, non-tender to palpation, no appreciable organomegaly. L sided nephrostomy tube in place, draining sanguinous fluid. Extremities: no gross muscle atrophy, no edema, no contractures Neuro: Alert,CNII-XII grossly intact, gait normal Psych: well appearing, appropriate affect Data Received Today: Pertinent Labs: Hemoglobin 8.5, white blood cell 8.8, platelets 237, Imaging: No new imaging Assessment and Plan: #UTI secondary to calculi #Hematuria secondary to above #Microcytic Anemia Secondary to above #Hypotension Secondary to Above Repeat urine culture on 04/19 still grows Pseudomonas - Per ID continue IV cefepime (day 4) - Monitor CBC - Monitor drainage from nephrostomy tube #Hypokalemia Plan: - Continue 10 mEq potassium chloride daily #Diabetes, Insulin dependent Plan: -Continue Glargine 5u daily #Chronic constipation -Continue dulcolax 10mg daily F: LR 20mL/hr E: Replete as needed N: As tolerated A: As tolerated DVT ppx: Lovenox Code status: FULL CODE Anticipated discharge place: Home Anticipated discharge time: Pending Improvement Discussed with Dr Weathers. Hoa Bansal PGY-1 IM Attestation I have seen and examined this patient with my resident , discussed the same with the resident/TACHO, and agree with the dictator's assessment and plan as written Dr. Clive weathers Objective - Vital Signs Vital signs: Vital Signs Temp 98.0 F 04/24/25 07:18 Pulse 93 04/24/25 07:18 Resp 15 04/24/25 07:18 BP 115/56 04/24/25 07:18 Pulse Ox 92 L 04/24/25 07:18 FiO2 Intake & Output 04/23/25 04/24/25 04/24/25 18:59 06:59 18:59 Intake Total 1100 Output Total 2050 1050 Balance -950 -1050 Weight 62.823 kg Intake: IV 1100 Output: Drainage 500 350 Left Posterior Lateral 500 350 Abdomen Urine 1500 700 Estimated Blood Loss 50 Other: Voiding Method Diaper Diaper Indwelling Catheter Indwelling Catheter # Bowel Movements 2 - Labs CBC & Chem 7: 04/25/25 04:33 04/25/25 04:33 Labs: Abnormal Lab Results - Last 24 Hours (Table) 04/23/25 04/23/25 04/23/25 Range/Units 02:54 10:53 16:32 RBC 3.65 L (4.10-5.20) X 10*6/uL Hgb 9.5 L (12.0-15.0) g/dL Hct 31.0 L (37.2-46.3) % MCH 26.0 L (27.0-32.0) pg MCHC 30.6 L (32.0-37.0) g/dL RDW 19.5 H (11.5-14.5) % MPV 9.2 L (9.5-12.2) FL Eosinophils # (0.04-0.35) X 10*3/uL POC Glucose (mg/dL) 144 H 203 H (70-110) mg/dL 04/24/25 04/24/25 Range/Units 03:29 06:14 RBC 3.23 L (4.10-5.20) X 10*6/uL Hgb 8.5 L (12.0-15.0) g/dL Hct 27.7 L (37.2-46.3) % MCH 26.3 L (27.0-32.0) pg MCHC 30.7 L (32.0-37.0) g/dL RDW 19.7 H (11.5-14.5) % MPV (9.5-12.2) FL Eosinophils # 0.02 L (0.04-0.35) X 10*3/uL POC Glucose (mg/dL) 147 H (70-110) mg/dL
--- NOTE | 2025-04-24 15:55 | P.PN ---
Subjective Progress Note Date: 04/24/25 Principal diagnosis: Reason for follow-up is UTI Patient is a 84-year-old female with a past medical history significant for Atrial Fibrillation, CVA/TIA, Diabetes Mellitus, Hypertension, Osteoarthritis (OA), presenting to the hospital for evaluation of hematuria and hypotension concern for possible infected stone though initial urine culture negative. On today's evaluation that is Patient is status post cystoscopy left ureteral stent removal percutaneous nephrolithotomy and nephrostomy tube placement. On today's evaluation that is 04/24/2025,the patient continues to be afebrile, patient is breathing comfortably on room air, the patient was sleeping no distress did not answer question no vomiting diarrhea any changes reported. Patient white count is 8.80 Objective - Vital Signs Vital signs: Vital Signs Temp 97.9 F 04/24/25 13:50 Pulse 107 H 04/24/25 13:50 Resp 16 04/24/25 13:50 BP 153/80 04/24/25 13:50 Pulse Ox 99 04/24/25 13:50 FiO2 Intake & Output 04/23/25 04/24/25 04/24/25 18:59 06:59 18:59 Intake Total 1100 Output Total 2049 1050 130 Balance -950 -1050 -130 Weight 62.823 kg Intake: IV 1100 Output: Drainage 500 350 130 left back 500 350 130 Urine 1500 700 Estimated Blood Loss 50 Other: Voiding Method Diaper Diaper Indwelling Catheter Indwelling Catheter Indwelling Catheter # Bowel Movements 2 - Exam GENERAL DESCRIPTION: An elderly female lying in bed in no distress RESPIRATORY SYSTEM: Unlabored breathing , decreased breath sounds at bases HEART: S1 S2 regular rate and rhythm , ABDOMEN: Soft , no tenderness EXTREMITIES: No edema feet - Labs CBC & Chem 7: 04/24/25 03:29 04/22/25 00:14 Labs: Abnormal Lab Results - Last 24 Hours (Table) 04/23/25 04/24/25 04/24/25 Range/Units 16:32 03: 06:14 RBC 3.23 L (4.10-5.20) X 10*6/uL Hgb 8.5 L (12.0-15.0) g/dL Hct 27.7 L (37.2-46.3) % MCH 26.3 L (27.0-32.0) pg MCHC 30.7 L (32.0-37.0) g/dL RDW 19.7 H (11.5-14.5) % Eosinophils # 0.02 L (0.04-0.35) X 10*3/uL POC Glucose (mg/dL) 203 H 147 H (70-110) mg/dL 04/24/25 Range/Units 11:03 RBC (4.10-5.20) X 10*6/uL Hgb (12.0-15.0) g/dL Hct (37.2-46.3) % MCH (27.0-32.0) pg MCHC (32.0-37.0) g/dL RDW (11.5-14.5) % Eosinophils # (0.04-0.35) X 10*3/uL POC Glucose (mg/dL) 147 H (70-110) mg/dL Assessment and Plan (1) UTI (urinary tract infection) Current Visit: No Status: Acute Code(s): N39.0 - URINARY TRACT INFECTION, SITE NOT SPECIFIED SNOMED Code(s): 32007859 (2) Pseudomonas aeruginosa infection Current Visit: Yes Status: Acute Code(s): A49.8 - OTHER BACTERIAL INFECTIONS OF UNSPECIFIED SITE SNOMED Code(s): 41589441 Plan: 1patient presented to hospital with hematuria in this patient who did have a history of bilateral renal stone with bilateral renal stent in this patient did not have significant fever or elevated white count and initial urine culture was reported to be negative, patient did have a KUB x-ray was indicating adequate positioning of those kidney stone 2-repeat UA is significantly positive cultures are currently growing Pseudomonas aeruginosa patient is status post cystoscopy removal of the left ureteral stent ureterolithotomy and a percutaneous nephrostomy tube placement 3patient to continue with IV cefepime while inpatient and transition to oral Cipro once cleared for discharge by urology Dictation was produced using [email or web address] dictation software. please excuse any grammatical, word or spelling errors. Time with Patient: Less than 30
[2025-04-24 16:20] LABS: Glucose,Whole Blood 210 mg/dL (70-110)
[2025-04-24 20:51] LABS: Glucose,Whole Blood 173 mg/dL (70-110)
[2025-04-25 06:29] LABS: Glucose,Whole Blood 94 mg/dL (70-110)
[2025-04-25 08:13] LABS: Basophils # (A) 0.05 X 10*3/uL (0.00-0.10); Basophils % (A) 0.8 %; Eosinophils # (A) 0.19 X 10*3/uL (0.04-0.35); Eosinophils % (A) 3.0 %; HCT 29.1 % (37.2-46.3); HGB 8.7 g/dL (12.0-15.0); Immature Grans, Automated 0.30 %; Lymphocytes # (A) 1.25 X 10*3/uL (0.90-5.00); Lymphocytes % (A) 19.8 %; MCH 26.1 pg (27.0-32.0); MCHC 29.9 g/dL (32.0-37.0); MCV 87.4 FL (80.0-97.0); Monocytes # (A) 0.67 X 10*3/uL (0.20-1.00); Monocytes % (A) 10.6 %; NRBC Per 100 WBC 0 X 10*3/uL (0.00-0.01); Neutrophils # (A) 4.13 X 10*3/uL (1.80-7.70); Neutrophils % (A) 65.5 %; Platelet Count 228 X 10*3/uL (140-440); RBC 3.33 X 10*6/uL (4.10-5.20); RDW 19.8 % (11.5-14.5); WBC 6.31 X 10*3/uL (4.50-10.00)
[2025-04-25 08:32] LABS: BUN/Creat Ratio 18.50 Ratio (12.00-20.00); Blood Urea Nitrogen 22.2 mg/dL (9.0-27.0); Glucose 81 mg/dL (70-110)
[2025-04-25 08:33] LABS: ALT 8 U/L (8-44); AST 18 U/L (13-35); Albumin 2.6 g/dL (3.8-4.9); Albumin/Globulin Ratio 0.81 Ratio (1.60-3.17); Alkaline Phosphatase 80 U/L (41-126); Anion Gap 8.70 mmol/L (4.00-12.00); Calcium 7.9 mg/dL (8.7-10.3); Carbon Dioxide 27.3 mmol/L (21.6-31.8); Chloride 103 mmol/L (96-109); Globulin 3.2 g/dL (1.6-3.3); Potassium 3.2 mmol/L (3.5-5.5); Sodium 139 mmol/L (135-145); Total Protein 5.8 g/dL (6.2-8.2)
[2025-04-25] MEDS ORDERED: ENOXAPARIN 40 MG/0.4 ML SYRINGE SQ SCH (09:00)
[2025-04-25] MEDS: ENOXAPARIN 30 MG/0.3 ML SYRINGE SQ SCH (10:46)
[2025-04-25 11:23] LABS: Glucose,Whole Blood 388 mg/dL (70-110)
[2025-04-25] MEDS: POTASSIUM CHLORIDE ER 20 MEQ TAB.ER PO STA (13:04)
[2025-04-25] MEDS: POTASSIUM BICARBONATE/CIT AC 20 MEQ TABLET.EFF PO ONE (13:18)
[2025-04-25 14:04] VITALS: BP 93/50; PULSE 84; RESP 16; TEMP 98.1
--- NOTE | 2025-04-25 14:11 | P.DS ---
Providers Date of admission: 04/14/25 20:49 Attending physician: Charlie Calix Consults: 04/15/25 11:41 Consult Physician Stat Consulting Provider: Moo Lawrence Consult Reason/Comments: hematuria+ anemia Do you want consulting provider notified?: Yes 04/18/25 09:52 Consult Physician Routine Consulting Provider: Tom Ramos Consult Reason/Comments: infected renal calculi Do you want consulting provider notified?: Yes Primary care physician: Francesco Gaston Hospital Course: Hospital Course: Patient is a 85-year-old female with history of atrial fibrillation, struvite stones, CVA with residual left-sided hemiparesis, diabetes hypertension and history of uterine cancer. She came in complaining of vaginal bleeding, labs showed massive hematuria and white blood cells and hemoglobin was 7.1, and hypotension in the 80s, she was given 2 units of red blood cells consult to urology was placed. No significant fever or white count. Patient was started on empiric Rocephin until urine cultures came back positive for Pseudomonas which point she was given cefepime and completed a 5-day course of cefepime, will be discharged on oral ciprofloxacin 500 mg twice daily for 10 days. On 04/23/2025 patient had a cystoscopy with percutaneous nephrolithotomy for her struvite stone on the left side which went successfully. Will need to follow-up in 3 weeks with urology for a right-sided nephrostomy. Patient is medically stable for discharge. Final Diagnosis: #UTI secondary to struvite calculi #Diabetes #Atrial fibrillation Physical examination: Vital signs reviewed General: nontoxic, pleasant, appears at stated age Derm: warm, dry, intact Head: atraumatic, normocephalic, symmetric Eyes: EOMI, anicteric sclera Mouth: no lip lesion, mucus membranes moist Cardiovascular: S1 S2 reg, no murmur, rubs, or gallops Lungs: CTA bilateral, no rhonchi, no rales, no accessory muscle use Abdominal: soft, non-tender to palpation, no appreciable organomegaly. L sided nephrostomy tube in place, draining sanguinous fluid. Extremities: no gross muscle atrophy, LUE hemiparesis Neuro: Alert,CNII-XII grossly intact, Psych: well appearing, appropriate affect Patient Condition at Discharge: Stable Plan - Discharge Summary Discharge Rx Participant: No New Discharge Prescriptions: New Ciprofloxacin HCl [Cipro] 500 mg PO BID 10 Days #20 tab Continue Na Phos,M-B/Na Phos,Di-Ba [Fleet Adult] 133 ml RECTAL DAILY PRN PRN Reason: Constipation Saliva Stimulant Comb. No.3 [Biotene Moisturizing Mouth] 1 tsp MUCOUS MEM Q12H PRN PRN Reason: dry mouth/throat INSULIN LISPRO (humaLOG) [humaLOG] See Protocol SQ ACHS Metoclopramide [Reglan] 5 mg PEG/G-TUBE DAILY Ipratropium-Albuterol Nebulize [Duoneb 0.5 mg-3 mg/3 ml Soln] 3 ml INHALATION RT-TID PRN PRN Reason: Cough guaiFENesin [guaiFENesin ER] 600 mg PEG/G-TUBE Q12H PRN PRN Reason: Cough Ferrous Sulfate Oral Elixir [Feosol Liquid] 450 mg PEG/G-TUBE DAILY Apixaban [Eliquis] 2.5 mg PEG/G-TUBE BID Loperamide [Imodium] 4 mg PEG/G-TUBE QID PRN PRN Reason: Diarrhea Furosemide [Lasix] 40 mg PEG/G-TUBE DAILY #0 Cetirizine HCl [Zyrtec] 10 mg PEG/G-TUBE DAILY carvediloL [Coreg*] 25 mg PEG/G-TUBE BID-W/MEALS Atorvastatin [Lipitor] 40 mg PEG/G-TUBE DAILY bisacodyL [Dulcolax] 10 mg RECTAL DAILY PRN PRN Reason: Constipation Famotidine [Pepcid] 20 mg PEG/G-TUBE DAILY Magnesium Hydroxide [Milk of Magnesia Concentrate] 7,200 mg PEG/G-TUBE DAILY PRN PRN Reason: Constipation Acetaminophen Tab [Tylenol] 500 mg PEG/G-TUBE Q6HR PRN PRN Reason: Fever And/ Or Pain Simethicone 40 mg/0.6 ml Drops [Mylicon Drops] 40 mg PEG/G-TUBE QID Lactulose [Cephulac] 30 gm PEG/G-TUBE DAILY Insulin Glargine,Hum.rec.anlog [Lantus Solostar Pen] 5 units SQ DAILY Lactulose [Constulose] 30 gm PEG/G-TUBE Q12H PRN PRN Reason: Constipation Potassium Chloride ER [K-Dur 10] 10 meq PO DAILY tab Nystatin 100,000Unit/gm Cream [Mycostatin Cream] 1 applic TOPICAL BID Discharge Medication List Atorvastatin [Lipitor] 40 mg PEG/G-TUBE DAILY 06/19/24 [History] Famotidine [Pepcid] 20 mg PEG/G-TUBE DAILY 06/19/24 [History] Magnesium Hydroxide [Milk of Magnesia Concentrate] 7,200 mg PEG/G-TUBE DAILY PRN 06/19/24 [History] Na Phos,M-B/Na Phos,Di-Ba [Fleet Adult] 133 ml RECTAL DAILY PRN 06/19/24 [History] Saliva Stimulant Comb. No.3 [Biotene Moisturizing Mouth] 1 tsp MUCOUS MEM Q12H PRN 06/19/24 [History] bisacodyL [Dulcolax] 10 mg RECTAL DAILY PRN 06/19/24 [History] Acetaminophen Tab [Tylenol] 500 mg PEG/G-TUBE Q6HR PRN 07/27/24 [History] INSULIN LISPRO (humaLOG) [humaLOG] See Protocol SQ ACHS 07/27/24 [History] Apixaban [Eliquis] 2.5 mg PEG/G-TUBE BID 10/11/24 [History] Ferrous Sulfate Oral Elixir [Feosol Liquid] 450 mg PEG/G-TUBE DAILY 10/11/24 [History] Ipratropium-Albuterol Nebulize [Duoneb 0.5 mg-3 mg/3 ml Soln] 3 ml INHALATION RT-TID PRN 10/11/24 [History] Lactulose [Cephulac] 30 gm PEG/G-TUBE DAILY 10/11/24 [History] Metoclopramide [Reglan] 5 mg PEG/G-TUBE DAILY 10/11/24 [History] Simethicone 40 mg/0.6 ml Drops [Mylicon Drops] 40 mg PEG/G-TUBE QID 10/11/24 [History] guaiFENesin [guaiFENesin ER] 600 mg PEG/G-TUBE Q12H PRN 10/11/24 [History] Insulin Glargine,Hum.rec.anlog [Lantus Solostar Pen] 5 units SQ DAILY 02/22/25 [History] Lactulose [Constulose] 30 gm PEG/G-TUBE Q12H PRN 02/22/25 [History] Loperamide [Imodium] 4 mg PEG/G-TUBE QID PRN 02/22/25 [History] Furosemide [Lasix] 40 mg PEG/G-TUBE DAILY #0 02/28/25 [Rx] Potassium Chloride ER [K-Dur 10] 10 meq PO DAILY tab 02/28/25 [Rx] Cetirizine HCl [Zyrtec] 10 mg PEG/G-TUBE DAILY 04/15/25 [History] Nystatin 100,000Unit/gm Cream [Mycostatin Cream] 1 applic TOPICAL BID 04/15/25 [History] carvediloL [Coreg*] 25 mg PEG/G-TUBE BID-W/MEALS 04/15/25 [History] Ciprofloxacin HCl [Cipro] 500 mg PO BID 10 Days #20 tab 04/25/25 [Rx] Follow up Appointment(s)/Referral(s): Francesco Gaston MD [Primary Care Provider] - 1-2 days Rossana Mccray [NON-STAFF] - As Needed Moo Lawrence MD [STAFF PHYSICIAN] - 1 Week Discharge Disposition: TRANSFER TO SNF/ECF
--- NOTE | 2025-04-26 15:22 | P.PN ---
Subjective Progress Note Date: 04/25/25 Principal diagnosis: Reason for follow-up is UTI Patient is a 84-year-old female with a past medical history significant for Atrial Fibrillation, CVA/TIA, Diabetes Mellitus, Hypertension, Osteoarthritis (OA), presenting to the hospital for evaluation of hematuria and hypotension concern for possible infected stone though initial urine culture negative. Patient is status post cystoscopy left ureteral stent removal percutaneous nephrolithotomy and nephrostomy tube placement. On today's evaluation that is 04/25/2025,the patient remains to be afebrile, patient is on 2 L nasal cannula supplemental oxygen and mentioned breathing comfortably with no chest pain or cough.Patient denies having any nausea or vomiting, no abdominal pain and no diarrhea has been reported. The patient white count 6.31, creatinine is 1.2 Objective - Vital Signs Vital signs: Vital Signs Temp 97.8 F 04/25/25 07:15 Pulse 76 04/25/25 07:15 Resp 15 04/25/25 07:15 BP 120/58 04/25/25 07:15 Pulse Ox 99 04/25/25 07:15 FiO2 Intake & Output 04/24/25 04/25/25 04/25/25 18:59 06:59 18:59 Output Total 480 1825 Balance -480 -1825 Output: Drainage 130 1400 left back 130 1400 Urine 350 425 Other: Voiding Method Indwelling Catheter External Catheter External Catheter - Exam GENERAL DESCRIPTION: An elderly female lying in bed in no distress RESPIRATORY SYSTEM: Unlabored breathing , decreased breath sounds at bases HEART: S1 S2 regular rate and rhythm , ABDOMEN: Soft , no tenderness EXTREMITIES: No edema feet - Labs CBC & Chem 7: 04/25/25 04:33 04/25/25 04:33 Labs: Abnormal Lab Results - Last 24 Hours (Table) 04/24/25 04/24/25 04/24/25 Range/Units 11:03 16:18 20:43 RBC (4.10-5.20) X 10*6/uL Hgb (12.0-15.0) g/dL Hct (37.2-46.3) % MCH (27.0-32.0) pg MCHC (32.0-37.0) g/dL RDW (11.5-14.5) % Potassium (3.5-5.5) mmol/L Est GFR (CKD-EPI) (>=60) POC Glucose (mg/dL) 147 H 210 H 173 H (70-110) mg/dL Calcium (8.7-10.3) mg/dL Total Protein (6.2-8.2) g/dL Albumin (3.8-4.9) g/dL Albumin/Globulin Ratio (1.60-3.17) Ratio 04/25/25 04/25/25 Range/Units 04:33 04:33 RBC 3.33 L (4.10-5.20) X 10*6/uL Hgb 8.7 L (12.0-15.0) g/dL Hct 29.1 L (37.2-46.3) % MCH 26.1 L (27.0-32.0) pg MCHC 29.9 L (32.0-37.0) g/dL RDW 19.8 H (11.5-14.5) % Potassium 3.2 L (3.5-5.5) mmol/L Est GFR (CKD-EPI) 45 L (>=60) POC Glucose (mg/dL) (70-110) mg/dL Calcium 7.9 L (8.7-10.3) mg/dL Total Protein 5.8 L (6.2-8.2) g/dL Albumin 2.6 L (3.8-4.9) g/dL Albumin/Globulin Ratio 0.81 L (1.60-3.17) Ratio Assessment and Plan (1) UTI (urinary tract infection) Status: Acute Code(s): N39.0 - URINARY TRACT INFECTION, SITE NOT SPECIFIED SNOMED Code(s): 29254297 (2) Pseudomonas aeruginosa infection Status: Acute Code(s): A49.8 - OTHER BACTERIAL INFECTIONS OF UNSPECIFIED SITE SNOMED Code(s): 08998288 Plan: 1patient presented to hospital with hematuria in this patient who did have a history of bilateral renal stone with bilateral renal stent in this patient did not have significant fever or elevated white count and initial urine culture was reported to be negative, patient did have a KUB x-ray was indicating adequate positioning of those kidney stone 2-repeat UA is significantly positive cultures are currently growing Pseudomonas aeruginosa patient is status post cystoscopy removal of the left ureteral stent ureterolithotomy and a percutaneous nephrostomy tube placement 3patient received adequate IV cefepime while inpatient and plan is to finish therapy with oral Cipro x 10 days on discharge discussed with the resident physician Dictation was produced using [email or web address] dictation software. please excuse any grammatical, word or spelling errors. Time with Patient: Less than 30
== END 2025-04-25 16:22 | DRG 660 ==
LOC: EC 19:46 → 4SSUR 20:48 → OBSVTOIN 20:49 → 4SSUR 23:44
PROVIDERS: ADMIT Hospitalist; ATTEND Hospitalist
PROC: 0T9430Z Drainage of Left Kidney Pelvis with Drainage Device, Percutaneous Approach (ICD-10-PCS; 2025-04-23)
PROC: BT121ZZ Fluoroscopy of Left Kidney using Low Osmolar Contrast (ICD-10-PCS; 2025-04-23)
PROC: 0TC43ZZ Extirpation of Matter from Left Kidney Pelvis, Percutaneous Approach (ICD-10-PCS; principal; 2025-04-23 07:30)
PROC: 0TP98DZ Removal of Intraluminal Device from Ureter, Via Natural or Artificial Opening Endoscopic (ICD-10-PCS; 2025-04-23 07:30)
DX: N39.0 Urinary tract infection, site not specified (principal); I69.354 Hemiplegia and hemiparesis following cerebral infarction affecting left non-dominant side; L89.321 Pressure ulcer of left buttock, stage 1; L89.311 Pressure ulcer of right buttock, stage 1; I11.0 Hypertensive heart disease with heart failure; I50.9 Heart failure, unspecified; B96.5 Pseudomonas (aeruginosa) (mallei) (pseudomallei) as the cause of diseases classified elsewhere; E11.9 Type 2 diabetes mellitus without complications; D50.9 Iron deficiency anemia, unspecified; T83.192A Other mechanical complication of indwelling ureteral stent, initial encounter; I48.91 Unspecified atrial fibrillation; N20.0 Calculus of kidney; I95.89 Other hypotension; K59.09 Other constipation; I25.10 Atherosclerotic heart disease of native coronary artery without angina pectoris; E87.6 Hypokalemia; Z88.8 Allergy status to other drugs, medicaments and biological substances; Z85.42 Personal history of malignant neoplasm of other parts of uterus; Z79.899 Other long term (current) drug therapy; Z88.6 Allergy status to analgesic agent; Z88.1 Allergy status to other antibiotic agents; Z79.01 Long term (current) use of anticoagulants; Z82.49 Family history of ischemic heart disease and other diseases of the circulatory system; Z87.440 Personal history of urinary (tract) infections
CPT/HCPCS: 36415; 50432; 74018; 80048; 80053; 81001; 82365; 83605; 83735; 84132; 84484; 85025; 85027; 85610; 85730; 86850; 86900; 86901; 86920; 87077; 87086; 87186; 93005; 96361; 96365; 96375; 99285